=== PATIENT | male | born 1955 | race Caucasian/White ===

== ENCOUNTER 2024-06-01 09:43 | Inpatient (IN) | payer MEDICARE, MEDICAID, SELFPAY ==
[2024-06-01] VITALS (7 sets, daily range): BP systolic 144–175; BP diastolic 48–75; PULSE 74–82; RESP 16–18; TEMP 36–37.2; O2SAT 95–98; BMI 28.8
--- NOTE | ~2024-06-01 | XR_ITS ---
EXAMINATION: XR BILATERAL HIPS WITH AP PELVIS CLINICAL INFORMATION: Hip pain-OA COMPARISON: None available. Correlation made with CT abdomen and pelvis performed 06/01/2024. TECHNIQUE: AP and frog-leg lateral views of each hip and an AP view of the pelvis. FINDINGS: There is normal bony mineralization. There is no fracture, dislocation, or suspicious bone lesion. Normal alignment of both hips. Mild to moderate osteoarthrosis of both hip joints present with mild joint space narrowing, and mild to moderate marginal productive osteophytes. No evidence of AVN. The femoral heads maintain normal contour. The sacrum appears intact. Mild degenerative changes left greater than right SI joints. Mild to moderate spondylosis lower lumbar spine. Soft tissues demonstrate vascular calcifications. Calcification of the vas deferens also noted, suggesting underlying diabetes. XR/XR hip BI w PEL1V IMPRESSION: 1. No acute abnormality in either hip. 2. Mild to moderate osteoarthrosis bilateral hip joints symmetrically. Electronically signed by: Brandan Lomeli MD 06/07/2024 01:49 PM [facility]
--- NOTE | ~2024-06-01 | XR_ITS ---
EXAMINATION: XR CHEST CLINICAL INFORMATION: peripheral edema COMPARISON: Chest x-ray on 09/19/2007 TECHNIQUE: 2 views of the chest were obtained. FINDINGS: No significant abnormality is noted involving the heart, lungs, mediastinum, bony thorax or soft tissues. XR/XR chest 2V IMPRESSION: Unremarkable examination. Electronically signed by: Vonda Fuentes MD 06/01/2024 04:47 PM [facility]
--- NOTE | ~2024-06-01 | US_ITS ---
EXAMINATION: US TRIPLEX LOWER EXTREMITY, LEFT CLINICAL INFORMATION: Calf pain and swelling COMPARISON: Unfortunately duplex on 04/20/2021 TECHNIQUE: Color-flow triplex imaging with spectral analysis and compression Doppler were performed on the left lower extremity. FINDINGS: Respiratory variation, normal compression and augmented flow are noted throughout the left lower extremity. The visualized common femoral vein, superficial femoral vein, profunda femoral vein, popliteal vein and midcalf peroneal and posterior tibial venous segments show no evidence of deep venous thrombosis. There is no Grier's cyst. US/US venous duplex LE LT IMPRESSION: No evidence of deep venous thrombosis involving the left lower extremity. Electronically signed by: Vonda Fuentes MD 06/01/2024 03:34 PM EST RP
--- NOTE | ~2024-06-01 | CT_ITS ---
EXAMINATION: CT ABDOMEN AND PELVIS WITHOUT CONTRAST CLINICAL INFORMATION: back pain, elevated kidney function, r/o obstruct COMPARISON: None available. TECHNIQUE: Multidetector volumetric imaging was performed from the superior aspect of the liver through the pubic symphysis. Sagittal and coronal reformatted images were obtained on the technologist's workstation. This CT examination was performed using dose optimization techniques as appropriate, variously including the following: *Automated exposure control *Adjustment of mA and/or kV according to patient size (this includes techniques or standardized protocols for targeted exams where dose is matched to indication/reason for exam; i.e. extremities or head) *Use of iterative reconstruction technique DLP: 603 mGy-cm FINDINGS: LUNG BASES: Small pericardial effusion. Lung bases normally aerated. LIVER, GALLBLADDER, AND BILIARY TREE: The liver is normal in size, shape, and attenuation. No focal hepatic lesion or biliary ductal dilatation is present. The gallbladder is unremarkable with no evidence of radiopaque gallstones, gallbladder wall thickening, or obvious pericholecystic inflammatory changes. PANCREAS: Unremarkable. SPLEEN: Unremarkable. ADRENAL GLANDS: Unremarkable. KIDNEYS AND URETERS: The kidneys are normal in size, shape, and attenuation. No hydronephrosis, hydroureter, or calculi seen. No perinephric stranding. BLADDER: Unremarkable. GASTROINTESTINAL TRACT: The small and large bowel are unremarkable. The appendix is unremarkable. ABDOMINAL WALL: No significant hernia is appreciated. LYMPH NODES: Normal. VASCULAR: Vascular calcifications in the abdomen and pelvis. There is no aneurysm. PELVIC VISCERA: Unremarkable. OSSEOUS STRUCTURES: No acute osseous abnormality. Multilevel degenerative spondylosis spine. CT/CT abdomen pelvis wo IV con IMPRESSION: 1. No acute abnormality CT scan abdomen pelvis. 2. Small pericardial effusion. 3. Multilevel degenerative spondylosis of the spine. Fleischner guidelines were followed. Electronically signed by: Cameron Ingram MD 06/01/2024 08:03 PM [facility]
--- OUTSIDE RECORDS SUMMARY | 2024-06-01 11:52 | XMS_ITS | Continuity of Care Document ---
Author Organization [facility] Address [address] [place] [id number]- Care Team Providers Care Panman Name Role Phone Carrie SMALL PIECE CUTTER, Kelly Lopez Primary Care Physician [phone] [place] [facility] [place]/23/24 [facility] [address] [place] [id number]- Attending Physician: Larissa Schaeffer NP Allergies, Adverse Reactions, Alerts Substance Reaction Severity Status Bee Stings Active Immunizations Given and Recorded Vaccine Date Status Refusal Reason influenza virus vaccine, inactivated 1 03/04/24 Re corded influenza virus vaccine, inactivated 2 05/01/23 Gi aracely influenza virus vaccine, inactivated 05/17/22 Andrew rded influenza virus vaccine, inactivated 05/24/21 Andrew rded influenza virus vaccine, inactivated 03/13/20 Andrew rded influenza virus vaccine, inactivated 03/23/19 Give n influenza virus vaccine, inactivated 06/03/18 Give n influenza virus vaccine, inactivated 05/02/17 Andrew rded influenza virus vaccine, inactivated 04/12/17 Andrew rded influenza virus vaccine, inactivated 04/16/16 Give n influenza virus vaccine, inactivated 04/16/10 Give n SARS-CoV-2(COVID-19)mRNA-LNP vac([id number]) 12/31/23 Recorded SARS-CoV-2(COVID-19)mRNA-LNP vac([id number]) 05/08/23 Recorded tetanus/diphtheria/pertussis, acel(Tdap) 10/15/23 Recorded tetanus/diphtheria/pertussis, acel(Tdap) 07/28/11 Given pneumococcal 20-valent conjugate vaccine 3 05/01/23 Given zoster vaccine, inactivated 02/03/23 Recorded zoster vaccine, inactivated 08/09/19 Recorded [id number] 12y+ bivalent booster vax 05/17/22 Recorded SARS-CoV-2 (COVID-19) mRNA-1273 vaccine 10/10/21 R ecorded SARS-CoV-2 (COVID-19) mRNA BNT-162b2 vac 04/29/21 Recorded SARS-CoV-2 (COVID-19) mRNA BNT-162b2 vac 10/10/20 Recorded SARS-CoV-2 (COVID-19) mRNA BNT-162b2 vac 09/19/20 Recorded Influenza Virus Vaccine (oldterm) 03/05/20 Recorde d pneumococcal 23-valent vaccine 08/09/19 Recorded pneumococcal 23-valent vaccine 04/16/10 Given hepatitis B adult vaccine 4 01/07/11 Given hepatitis B adult vaccine 5 12/10/10 Given 1Result Comment: [facility] 2Result Comment: [id number] 3Result Comment: [id number] 4Admin Note: pt waited 10 mins post inj no adverse reaction noted.j a 5Admin Note: PT WAITED 10 MIN WITH NO ADVERSE REACTION. Medications albuterol 90 mcg/inh inhalation powder 1 puffs, Inhalation, Every 6 hours, PRN Wheezing/Shortness of Breath, # 1 each, 0 Refills, Maintenance, 02/15/24 13:38:00 EDT, Powder, [facility] #[id number], Partial fill upon patient request if the prescription is for a schedule II opioid drug., 1 puffs... Start Date: 02/15/24 Status: Ordered amLODIPine 10 mg oral tablet 10 mg, By Mouth, Daily, # 30 tablet, Refills 5, Tot. Refills 5, Maintenance, 03/11/24 11:59:00 EDT,Route to Pharmacy Electronically, [facility]/pharmacy #[id number], Partial fill upon patient request if the prescription is for a schedule II opioid drug., 168, cm,... Start Date: 03/11/24 Stop Date: 09/07/24 Status: Ordered aspirin 81 mg oral delayed release tablet 1 tablet, By Mouth, Daily, # 90 tablet, 1 Refills, Maintenance, 01/25/24 21:53:00 EDT, [facility]#[id number], 168, cm, 01/11/24 14:42:00 EDT, Height, 93, kg, 01/28/22 14:55:00 EDT, Dry Weight Start Date: 01/25/24 Status: Ordered Ativan 1 mg oral tablet 1 tablet = 1 mg, By Mouth, 4 times a day, 0 Refills, Maintenance, 12/27/15 13:11:38 EDT Start Date: 12/27/15 Status: Ordered carvedilol 6.25 mg oral tablet 6.25 mg, 1, tablet, By Mouth, 2 times a day, this replaces metoprolol xl, # 60 tablet, Refills 3, Tot. Refills 3, Maintenance, 04/19/24 14:32:00 EDT, Route to Pharmacy Electronically, [id number], Partial fill upon patient request if the prescr... Start Date: 04/19/24 Status: Ordered Colace sodium 100 mg oral capsule 100 mg, 1, capsule, By Mouth, 2 times a day, PRN, # 28 capsule, Refills 0, Tot. Refills 0, Maintenance, for constipation, 02/29/24 11:18:00 EDT, Route to Pharmacy Electronically, [id number], Partial fill upon patient request if the prescriptio... Start Date: 02/29/24 Stop Date: 03/14/24 Status: Ordered D3 50 mcg (2000 intl units) oral capsule 1 capsule, By Mouth, Daily, # 90 capsule, 0 Refills, Maintenance, 12/09/23 14:09:00 EDT, [id number], 168, cm, 10/27/23 15:34:00 EDT, Height, 93, kg, 01/28/22 14:55:00 EDT, Dry Weight Start Date: 12/09/23 Status: Ordered Daily Simone oral tablet 1 tablet, By Mouth, Daily, # 90 tablet, 1 Refills, Maintenance, 03/17/24 9:34:00 EDT, [id number], 90, 1 tablet By Mouth Daily, 168, cm, 03/17/24 9:26:00 EDT, Height Start Date: 03/17/24 Status: Ordered dapagliflozin 10 mg oral tablet 1 tablet = 10 mg, By Mouth, Daily, # 30 tablet, 0 Refills, Maintenance, 01/11/24 14:46:00 EDT, Tablet, [id number], Partial fill upon patient request if the prescription is for a schedule II opioid drug., 168, cm, 01/11/24 14:42:00 EDT, Height,... Start Date: 01/11/24 Status: Ordered Flonase Allergy Relief 50 mcg/inh nasal spray See Instructions, 1 sprays Daily in each nostril, # 16 Gm, 0 Refills, Maintenance, 02/15/24 13:39:00 EDT, [id number], Partial fill upon patient request if the prescription is for a schedule II opioid drug., 168, cm, 02/03/24 10:41:00 EDT, Height Start Date: 02/15/24 Status: Ordered folic acid 1 mg oral tablet 1, tablet, By Mouth, Daily, # 90 tablet, Refills 1, Tot. Refills 1, Maintenance, 02/17/24 7:23:00 EDT, Route to Pharmacy Electronically, [facility]/pharm[facility] #[id number], 168, cm, 02/15/24 13:43:00 EDT, Height Start Date: 02/17/24 Status: Ordered Freestyle Lite Lancets See Instructions, # 300 each, Maintenance, Check blood sugars three times a day DM Type 2 E11.9, 01/11/24 14:33:00 EDT, Supply, 168, cm, 01/11/24 14:20:00 EDT, Height, 93, kg, 01/28/22 14:55:00 EDT, Dry Weight Start Date: 01/11/24 Status: Ordered FREESTYLE LITE TEST STRIP FREESTYLE LITE TEST STRIP, See Instructions, # 200 Unknown, 2 Refills, Maintenance, CHECK BLOOD SUGARS THREE TIMES A DAY DM TYPE 2 E11.9, 03/21/24 19:47:00 EDT, 168, cm, 03/17/24 9:46:00 EDT, Height Start Date: 03/21/24 Status: Ordered Freestyle Lite Test Strips See Instructions, # 300 each, Refills 0, Tot. Refills 0, Maintenance, Check blood sugars three times a day DM Type 2 E11.9, 01/11/24 14:33:00 EDT, Compound, 168, cm, 01/11/24 14:20:00 EDT, Height, 93, kg, 01/28/22 14:55:00 EDT, Dry Weight Start Date: 01/11/24 Status: Ordered LaMICtal 100 mg oral tablet 100 mg, 1, tablet, By Mouth, 2 times a day, # 60 tablet, Refills 3, Tot. Refills 3, Maintenance, 01/21/19 11:25:36 EDT, Route to Pharmacy Electronically, [id number], [facility] #[id number] Start Date: 01/21/19 Stop Date: 05/21/19 Status: Ordered lisinopril 10 mg oral tablet 10 mg, 1, tablet, By Mouth, Daily, # 90 tablet, Refills 0, Tot. Refills 0, Maintenance, 04/19/24 9:02:00 EDT, Route to Pharmacy Electronically, [facility] #[id number], 168, cm, 04/15/24 10:23:00 EDT, Height Start Date: 04/19/24 Status: Ordered methylphenidate 5 mg oral tablet TAKE 1 TABLET BY MOUTH THREE TIMES A DAY Start Date: 01/11/24 Status: Ordered nitroglycerin 0.4 mg sublingual tablet See Instructions, DISSOLVE 1 UNDER TONGUE EVERY 5 MINUTES NEEDED FOR CHEST PAIN CALL MD AFTER TAKING 3 TABS IN TOTAL IN A DAY, # 100 tablet, 0 Refills, Maintenance, 03/17/24 14:24:00 EDT, [facility][id number], 168, cm, 03/17/24 9:46:00 EDT, Height Start Date: 03/17/24 Status: Ordered nitroglycerin 0.4 mg sublingual tablet See Instructions, DISSOLVE 1 UNDER TONGUE EVERY 5 MINUTES NEEDED FOR CHEST PAIN CALL MD AFTER TAKING 3 TABS IN TOTAL IN A DAY, # 100 tablet, 0 Refills, Maintenance, 10/03/22 15:53:00 EDT, [facility] #[id number], 175, cm, 09/17/22 13:59:00 EDT, Height,... Start Date: 10/03/22 Status: Ordered NovoLOG FlexPen 100 units/mL injectable solution See Instructions, INJECT 0-18 UNITS SUBCUTANEOUSLY WITH MEALS FOR SLIDING SCALES, # 15 Unknown, 2 Refills, 01/12/24 14:36:00 EDT, [id number], MAX DAILY DOSE 54 UNITS, 168, cm, 01/11/24 14:42:00 EDT, Height, 93, kg, 01/28/22 14:55:00 EDT, Dry W... Start Date: 01/12/24 Status: Ordered oxymetazoline 0.05% nasal spray 2 sprays, Nares, Both, 2 times a day, PRN nasal/sinus congestion, Do not use more than twice a day.Do not use for more than 3 days in a row, # 15 mL, 0 Refills, Maintenance, 02/02/24 15:28:00 EDT, [place], [id number], Partial fill upon patient... Start Date: 02/02/24 Status: Ordered Pen [place], 31 G x 5 mm BD Ultra Fine III See Instructions, # 300 each, Refills 1, Tot. Refills 1, Maintenance, Use TID DM Type 2 on insulin E11.9, 06/05/23 14:45:00 EST, DM E11.9, Compound, 168, cm, 05/01/23 14:45:00 EDT, Height, 93, kg, 01/28/22 14:55:00 EDT, Dry Weight Start Date: 06/05/23 Status: Ordered rosuvastatin 20 mg oral tablet 1 tablet, By Mouth, Daily, # 90 tablet, 1 Refills, Maintenance, 02/04/24 16:39:00 EDT, [id number], 168, cm, 02/03/24 10:41:00 EDT, Height Start Date: 02/04/24 Status: Ordered SEROquel 300 mg oral tablet 1 tablet = 300 mg, By Mouth, Daily at bedtime, # 90 tablet, 0 Refills, Maintenance, 05/01/23 15:01:00 EDT, Tablet, Partial fill upon patient request if the prescription is for a schedule II opioid drug. Start Date: 05/01/23 Status: Ordered Problem List Condition Confirmation Course Effective Dates Status Health Status Informant Bipolar disorder Confirmed Active Cervical spondylosis Confirmed Active Chronic back pain DJD Confirmed Active Glomerulonephritis,ulloa ngial proliferative/fibrillar y 1, 2 Confirmed Active CKD (chronic kidney disease) stage 4, GFR 15-29 ml/min Confirmed Active ASHD; [place] 2012/stent circumflex vessel cath;abdelrahman 2018 3 Confirmed Active Epididymal cyst rt Confirmed 04/18/19 Active Low serum vitamin D Confirmed Active Ex-cigarette smoker Confirmed Active Fibrillary glomerulonephritis 4 Confirmed Active GERD with esophagitis egd 2018 Confirmed Active Gingivitis Confirmed Active Glaucoma of both eyes Confirmed Active History of alcoholism Confirmed Active History of nephrotic syndrome Confirmed Active H/O hepatitis C- S/P sofosbuvir/weight based ribavirin in 2015 5 Confirmed Active History of acute myocardial infarction of inferior wall 2012/ 6 Confirmed Active Hyperlipidemia Confirmed Active Secondary hyperparathyroidism, renal Confirmed Active Hypertension Confirmed Active LVH (left ventricular hypertrophy) echo Confirmed 12/04/16 Active Low back pain Confirmed Active Lumbar spondylosis 7 Confirmed Active Multiple lung nodules Confirmed Active Obese class I Confirmed Active Persistent proteinuria- SEEING NEPHROLOGY Confirmed Active Tubular adenoma of colon colonoscopy 8, 9 Confirmed 12/12/15 Active Type 2 diabetes mellitus with diabetic nephropathy Confirmed Active 1Renal biopsy-proven lithium-induced chronic kidney disease and fibrillary glomerulonephritis from hepatitis C. 2Mesangial proliferative glomerulonephritis with IgG dominant electron-dense and fibrillary deposits (latter 9nm) ([place]-red negative) (see comment). - Focal segmental glomerulosclerosis (peripheral) with tubular microcystic dilatation. - Global sclerosis of 40-50% of total glomeruli. - Interstitial fibrosis and tubular atrophy, moderate. - Arterial sclerosis, mild, and arteriolar hyaline sclerosis, mild to moderate. 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 2012/[place] 4secondary to hep C 524 weeks therapy with sofosbuvir/weight based ribavirin 20905 inferolateral stent bare metal circumflex 7DR Molddoverno sx;Dr Schwartz 8hyperplatic polyp repeat screening in 2025 9repeat colonoscopy in 5 years Social History Social History Type Response Smoking Status Former smoker, quit more than 30 days ago; Interested in cessation: No; Other: quit; Tobacco use times per day: prio 1/2-1 ppd; Total pack years: 38; Started at age: 12; Stopped at age: 63; entered on: 07/20/20 Sex Patient Care team information Care Team Personnel Name: Darius HICKMAN, Jeffrey Lopez Position: [facility] Renal MD Member Role: Lifetime Consulting Physician Address: Address: [address] [place] [address] [address] [facility] [place] [place] [address]- Name: Kelly Butler NP Position: [facility] PCO Associate Professional Member Role: PCP Address: Address: [address] [place] [id number]- Name: Kristin Mckenzie Position: [facility] Outreach Member Role: Lifetime Consulting Physician Name: Fortunato Sin RN Position: [facility] RN Member Role: Primary Care Nurse Name: Nury Watts RN Position: S RN Member Role: Primary Care Nurse Name: Antonia Mena NP Position: [facility] Associate Professional Member Role: Lifetime Consulting Provider Address: Address: [address] [place] [address] [address] [facility] [place], [place] [id number] Name: Prieto Tobin RN Position: [facility] RN Member Role: Primary Care Nurse Name: Ashleigh Reynoso RN Position: [facility] RN Member Role: Primary Care Nurse Name: Jonn Hui DO Position: [facility] Renal MD Member Role: Lifetime Consulting Physician Address: Address: [address] [place] [address] [address] [facility] [place] [place] [address]- Name: Luis Angel Stephen RN Position: [facility] RN Member Role: Primary Care Nurse Name: Brandan Nogueira RN Position: [facility] RN Member Role: Primary Care Nurse Care Team Related Persons Name: CARLOS A BORDEN Address: [address] [place] [address] Name: LEVI BORDEN Address: home [address] [place] [address]
--- OUTSIDE RECORDS SUMMARY | 2024-06-01 11:52 | XMS_ITS | Continuity of Care Document ---
Author Organization [facility] Shawn Lazaro lt Address [address] [place] [address]- Care Team Providers Care Resource Specialist Name Role Phone Carrie Kelly RIVERA Primary Care Physician [phone] Encounter [facility] Date(s): 02/05/24 - 03/06/24 [facility] Adult [address] [place] [address]- Allergies, Adverse Reactions, Alerts Substance Reaction Severity Status Bee Stings Active Immunizations Given and Recorded Vaccine Date Status Refusal Reason SARS-CoV-2(COVID-19)mRNA-LNP vac([id number]) 12/31/23 Recorded SARS-CoV-2(COVID-19)mRNA-LNP vac([id number]) 05/08/23 Recorded tetanus/diphtheria/pertussis, acel(Tdap) 10/15/23 Recorded tetanus/diphtheria/pertussis, acel(Tdap) 07/28/11 Given pneumococcal 20-valent conjugate vaccine 1 05/01/23 Given influenza virus vaccine, inactivated 2 05/01/23 Gi [...] influenza virus vaccine, inactivated 04/16/10 Give n zoster vaccine, inactivated 02/03/23 Recorded zoster vaccine, inactivated 08/09/19 Recorded [id number] 12y+ bivalent booster vax 05/17/22 Recorded SARS-CoV-2 (COVID-19) mRNA-1273 vaccine 4/7/22 R ecorded SARS-CoV-2 (COVID-19) mRNA BNT-162b2 vac 04/29/21 Recorded SARS-CoV-2 (COVID-19) mRNA BNT-162b2 vac 10/10/20 Recorded SARS-CoV-2 (COVID-19) mRNA BNT-162b2 vac 09/19/20 Recorded Influenza Virus Vaccine (oldterm) 03/05/20 Recorde d pneumococcal 23-valent vaccine 08/09/19 Recorded pneumococcal 23-valent vaccine 04/16/10 Given hepatitis B adult vaccine 3 01/07/11 Given hepatitis B adult vaccine 4 12/10/10 Given 1Result Comment: [id number] 2Result Comment: [id number] 3Admin Note: pt waited 10 mins post inj no adverse reaction noted.thierno kong 4Admin Note: PT WAITED 10 MIN WITH NO ADVERSE REACTION. Medications acetaminophen 325 mg oral tablet 650 mg, 2, tablet, By Mouth, 3 times a day, PRN, Do not take more than 6 pills in a 24-hour period,# 24 tablet, Refills 0, Tot. Refills 0, Maintenance, as needed for fever, pain, 02/02/24 15:26:00 EDT, Route to Pharmacy Electronically, [facility] Start Date: 02/02/24 Status: Ordered Aerochamber See Instructions, # 1 each, Maintenance, always use with inhaler, 02/02/24 15:25:00 EDT, Supply, 168, cm, 02/02/24 14:20:00 EDT, Height Start Date: 02/02/24 Status: Ordered Albuterol (Eqv-Ventolin HFA) 90 mcg/inh inhalation aerosol 2 puffs, Inhalation, Every 4 hours, PRN cough, SOB, wheeze, # 18 Gm, 0 Refills, Maintenance, 02/02/24 15:25:00 EDT, [id number], with dose counter. any albuterol inhaler covered by insurance is fine., 2 puffs Inhalation Every 4 hours,PRN:cough,... Start Date: 02/02/24 Status: Ordered albuterol 90 mcg/inh inhalation powder 1 puffs, Inhalation, Every 6 hours, PRN Wheezing/Shortness of Breath, # 1 each, 0 Refills, Maintenance, 02/15/24 13:38:00 EDT, Powder, [id number], Partial fill upon patient request if the prescription is for a schedule II opioid drug., 1 puffs... Start Date: 02/15/24 Status: Ordered amLODIPine 10 mg oral tablet 10 mg, By Mouth, Daily, # 30 tablet, Refills 0, Tot. Refills 0, Maintenance, 02/29/24 9:42:00 EDT, Route to Pharmacy Electronically, [id number], Partial fill upon patient request if the prescription is for a schedule II opioid drug., 168, cm,... Start Date: 02/29/24 Stop Date: 03/30/24 Status: Ordered aspirin 81 mg oral delayed release tablet 1 tablet, By Mouth, Daily, # 90 tablet, 1 Refills, Maintenance, 01/25/24 21:53:00 EDT, [id number], 168, cm, 01/11/24 14:42:00 EDT, Height, 93, kg, 01/28/22 14:55:00 EDT, Dry Weight Start Date: 01/25/24 Status: Ordered Ativan 1 mg oral tablet 1 tablet = 1 mg, By Mouth, 4 times a day, 0 Refills, Maintenance, 12/27/15 13:11:38 EDT Start Date: 12/27/15 Status: Ordered Basic Metabolic Profile Basic Metabolic Profile, See Instructions, # 1 each, Refills 0, Tot. Refills 0, Maintenance, Basic Metabolic Profile, 02/29/24 10:23:00 EDT, Supply Start Date: 02/29/24 Status: Ordered benzonatate 100 mg oral capsule See Instructions, PRN Cough, 1-2 capsule(s) By Mouth up to 3 times a day prn cough (Max 600 mg in w32-gaaq period), # 30 capsule, 0 Refills, Maintenance, 02/05/24 12:47:00 EDT, Capsule, [id number], Partial fill upon patient request if the pr... Start Date: 02/05/24 Status: Ordered Blood Pressure Monitor See Instructions, # 1 each, Maintenance, For Home blood pressure measurement, 02/29/24 10:22:00 EDT, Supply, 168, cm, 02/15/24 13:43:00 EDT, Height Start Date: 02/29/24 Status: Ordered Colace sodium 100 mg oral capsule 100 mg, 1, capsule, By Mouth, 2 times a day, PRN, # 28 capsule, Refills 0, Tot. Refills 0, Maintenance, for constipation, 02/29/24 11:18:00 EDT, Route to Pharmacy Electronically, [facility]/pharmacy #[id number], Partial fill upon patient request if the prescriptio... Start Date: 02/29/24 Stop Date: 03/14/24 Status: Ordered D3 50 mcg (2000 intl units) oral capsule 1 capsule, By Mouth, Daily, # 90 capsule, 0 Refills, Maintenance, 12/09/23 14:09:00 EDT, [facility]/pharmacy #[id number], 168, cm, 10/27/23 15:34:00 EDT, Height, 93, kg, 01/28/22 14:55:00 EDT, Dry Weight Start Date: 12/09/23 Status: Ordered Daily Simone oral tablet 1 tablet, By Mouth, Daily, # 90 tablet, 1 Refills, Maintenance, 01/25/24 16:01:00 EDT, [facility]/pharmacy#[id number], 90, 1 tablet By Mouth Daily, 168, cm, 01/11/24 14:42:00 EDT, Height, 93, kg, 01/28/22 14:55:00 EDT, Dry Weight Start Date: 01/25/24 Status: Ordered dapagliflozin 10 mg oral tablet 1 tablet = 10 mg, By Mouth, Daily, # 30 tablet, 0 Refills, Maintenance, 01/11/24 14:46:00 EDT, Tablet, [facility]/pharmacy #[id number], Partial fill upon patient request if the prescription is for a schedule II opioid drug., 168, cm, 01/11/24 14:42:00 EDT, Height,... Start Date: 01/11/24 Status: Ordered Flonase Allergy Relief 50 mcg/inh nasal spray See Instructions, 1 sprays Daily in each nostril, # 16 Gm, 0 Refills, Maintenance, 02/15/24 13:39:00 EDT, [id number], Partial fill upon patient request if the prescription is for a schedule II opioid drug., 168, cm, 02/03/24 10:41:00 EDT, Height Start Date: 02/15/24 Status: Ordered folic acid 1 mg oral tablet 1, tablet, By Mouth, Daily, # 90 tablet, Refills 1, Tot. Refills 1, Maintenance, 02/17/24 7:23:00 EDT, Route to Pharmacy Electronically, [facility]/pharmacy #[id number], 168, cm, 02/15/24 13:43:00 EDT, Height Start Date: 02/17/24 Status: Ordered Freestyle Lite Lancets See Instructions, # 300 each, Maintenance, Check blood sugars three times a day DM Type 2 E11.9, 01/11/24 14:33:00 EDT, Supply, 168, cm, 01/11/24 14:20:00 EDT, Height, 93, kg, 01/28/22 14:55:00 EDT, Dry Weight Start Date: 01/11/24 Status: Ordered Freestyle Lite Test Strips See [...] 01/21/19 11:25:36 EDT, Route to Pharmacy Electronically, [id number], [facility]/pharmacy #[id number] Start Date: 01/21/19 Stop Date: 05/21/19 Status: Ordered lamotrigine 100 mg oral tablet TAKE 1 TABLET BY MOUTH TWICE A DAY Start Date: 02/26/24 Status: Ordered methylphenidate 5 mg oral tablet TAKE 1 TABLET BY MOUTH THREE TIMES A DAY Start Date: 01/11/24 Status: Ordered nitroglycerin 0.4 mg sublingual tablet See Instructions, DISSOLVE 1 UNDER TONGUE EVERY 5 MINUTES NEEDED FOR CHEST PAIN CALL MD AFTER TAKING 3 TABS IN TOTAL IN A DAY, # 100 tablet, 0 Refills, Maintenance, 10/03/22 15:53:00 EDT, [facility]/pharmacy #[id number], 175, cm, 09/17/22 13:59:00 EDT, Height,... Start Date: 10/03/22 Status: Ordered NovoLOG FlexPen 100 units/mL injectable solution See Instructions, INJECT 0-18 UNITS SUBCUTANEOUSLY WITH MEALS FOR SLIDING SCALES, # 15 Unknown, 2 Refills, 01/12/24 14:36:00 EDT, [facility]/pharmacy #[id number], MAX DAILY DOSE 54 UNITS, 168, [...] mL, 0 Refills, Maintenance, 02/02/24 15:28:00 EDT, [place], [facility]/pharmacy #[id number], Partial fill upon patient... Start Date: 02/02/24 Status: Ordered Pen [place], 31 G x 5 mm BD Ultra [...] Refills, Maintenance, 02/04/24 16:39:00 EDT, [id number], 168, cm, 02/03/24 10:41:00 EDT, Height Start Date: 02/04/24 Status: Ordered senna - oral tablet 2 tablet, By Mouth, Daily at bedtime, PRN for constipation, for 14 days, # 28 tablet, 0 Refills, Acute 03/14/24 11:19:00 EDT, 02/29/24 11:19:00 EDT, Tablet, [facility]/pharmacy #[id number], Partial fill upon patient request if the prescription is for a schedule II... Start Date: 02/29/24 Stop Date: 03/14/24 Status: Ordered SEROquel 300 mg oral tablet 1 tablet = 300 mg, By Mouth, Daily at bedtime, # 90 tablet, 0 Refills, Maintenance, 05/01/23 15:01:00 EDT, Tablet, Partial fill upon patient request if the prescription is for a schedule II opioid drug. Start Date: 05/01/23 Status: Ordered Problem List Condition Confirmation Course Effective Dates Status Health Status Informant Cervical spondylosis Confirmed Active Chronic back pain DJD Confirmed Active Glomerulonephritis,ulloa ngial proliferative/fibrillar y 1, 2 Confirmed Active CKD (chronic kidney disease) stage 4, GFR 15-29 ml/min Confirmed Active ASHD; [place] 2012/stent circumflex 2012/vessel cath;abdelrahman 2018 3 Confirmed Active Epididymal cyst rt Confirmed 04/18/19 Active Low serum vitamin D Confirmed Active Ex-cigarette smoker Confirmed Active Fibrillary glomerulonephritis 4 Confirmed Active GERD with esophagitis egd 2018 Confirmed Active Gingivitis Confirmed Active Glaucoma of both eyes Confirmed Active History of alcoholism Confirmed Active History of nephrotic syndrome Confirmed Active Hepatitis C S/P sofosbuvir/weight based ribavirin in 2015 5 [...] mild to moderate. 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 2012/[place] 4secondary to hep C 524 weeks therapy with sofosbuvir/weight based ribavirin 72830 inferolateral stent bare metal circumflex 7DR Molddoida sx;Dr Schwartz 8hyperplatic polyp repeat screening in [...] Care team information Care Team Personnel Name: Jeffrey Mccoy MD Position: [facility] Renal MD Member Role: Lifetime Consulting Physician Address: Address: [address] [place] [address] [address] [facility] [place], [place] [facility] Name: Kelly Butler NP Position: [facility] PCO Associate Professional Member Role: PCP Address: Address: [address] [place] [id number]- Name: Kristin Mckenzie Position: [facility] Outreach Member Role: Lifetime Consulting Physician Name: Fortunato Sin RN Position: [facility] RN Member Role: Primary Care Nurse Name: Nury Watts RN Position: [facility] RN Member Role: Primary Care Nurse Name: Antonia Mena NP Position: [facility] Associate Professional Member Role: Lifetime Consulting Provider Address: Address: [address] [place], [place] [address] [place], [place] - Name: Prieto Tobin RN Position: [facility] RN Member Role: Primary Care Nurse Name: Ashleigh Reynoos RN Position: [facility] RN Member Role: Primary Care Nurse Name: Jonn Hui DO Position: [facility] Renal MD Member Role: Lifetime Consulting Physician Address: Address: [address] [place] [address] [address] [facility] [place], [place] - Name: Luis Angel Stephen RN Position: [facility] RN Member Role: Primary Care Nurse Name: Brandan Nogueira RN Position: S RN Member Role: Primary Care Nurse Care Team Related Persons Name: CARLOS A BORDEN Address: home [address] [place] [address] UM Name: LEVI BORDEN Address: home [address] [place] [address]
--- OUTSIDE RECORDS SUMMARY | 2024-06-01 11:52 | XMS_ITS | Continuity of Care Document ---
Author Organization [facility] ter Address [address] [place] [id number]- Care Team Providers Care Community Service Worker Name Role Phone Ben Viera MD Primary Care Physician [place] [facility] Date(s): 08/16/19 - 09/23/[address] [address]- [facility] Attending Physician: Ben Viera MD Admitting Physician: Ben Viera MD Referring Physician: Ben Viera MD Allergies, Adverse Reactions, Alerts Substance Reaction Severity Status Bee Stings Active Immunizations Given and Recorded Vaccine Date Status Refusal Reason zoster vaccine, inactivated 08/09/19 Recorded pneumococcal 23-valent vaccine 08/09/19 Recorded pneumococcal 23-valent vaccine 04/16/10 Given influenza virus vaccine, inactivated 03/23/19 Give n influenza virus vaccine, inactivated 06/03/18 Give n influenza virus vaccine, inactivated 04/12/17 Andrew rded influenza virus vaccine, inactivated 04/16/16 Give n influenza virus vaccine, inactivated 04/16/10 Give n tetanus/diphtheria/pertussis, acel(Tdap) 07/28/11 Given hepatitis B adult vaccine 1 01/07/11 Given hepatitis B adult vaccine 2 12/10/10 Given 1Admin Note: pt waited 10 mins post inj no adverse reaction noted.j a 2Admin Note: PT WAITED 10 MIN WITH NO ADVERSE REACTION. Medications albuterol CFC free 90 mcg/inh inhalation aerosol 2, puffs, Inhalation, Every 6 hours, PRN, # 9 Gm, Refills 0, Tot. Refills 0, Maintenance, 06/17/19 10:48:07 EST, Aerosol, Route to Pharmacy Electronically, [id number], [facility]/pharmacy #[id number], 180, cm, 06/17/19 10:36:11 EST, Height Start Date: 06/17/19 Status: Ordered aspirin 81 mg oral tablet 1 tablet = 81 mg, By Mouth, Daily, # 30 tablet, 11 Refills, Maintenance, 09/03/19 14:22:00 EST, Tablet, [facility]/pharmacy #[id number], 180, cm, 08/01/19 10:43:00 EST, Height Start Date: 09/03/19 Stop Date: 08/28/20 Status: Ordered Ativan 1 mg oral tablet 1 tablet = 1 mg, By Mouth, 4 times a day, 0 Refills, Maintenance, 12/27/15 13:11:38 EDT Start Date: 12/27/15 Status: Ordered Cartia XT 180 mg/24 hours oral capsule, extended release 1 capsule = 180 mg, By Mouth, Daily, # 30 capsule, 5 Refills, Maintenance, 08/16/19 14:00:00 EST, CR Capsule, [facility]/pharmacy #[id number], 172, cm, 08/11/19 13:32:00 EST, Height, 97.8, kg, 08/11/19 5:24:00 EST, Dry Weight Start Date: 08/16/19 Status: Ordered cholecalciferol 2000 intl units oral capsule 1 capsule = 2,000 International_Units, By Mouth, Daily, # 30 capsule, 5 Refills, Maintenance, 04/25/19 13:50:51 EDT, Capsule Start Date: 04/25/19 Status: Ordered cloNIDine 0.2 mg oral tablet 0.2 mg, 1, tablet, By Mouth, 2 times a day, # 60 tablet, Refills 5, Tot. Refills 5, Maintenance, 05/09/19 9:31:26 EST, Route to Pharmacy Electronically, [id number], [facility]/pharmacy #[id number] Start Date: 05/09/19 Status: Ordered Colace sodium 100 mg oral capsule 100 mg, 1, capsule, By Mouth, 2 times a day, PRN, # 60 capsule, Refills 5, Tot. Refills 5, Maintenance, for constipation, 04/25/19 13:50:52 EDT, Route to Pharmacy Electronically, [id number], [facility]/pharmacy #[id number] Start Date: 04/25/19 Status: Ordered Crestor 20 mg oral tablet 1 tablet = 20 mg, By Mouth, Daily, discontinue crestor 10 mg daily, # 90 tablet, 3 Refills, Maintenance, 05/12/19 13:46:50 EST, Tablet Start Date: 05/12/19 Status: Ordered Daily Simone oral tablet 1 tablet, By Mouth, Daily, # 30 tablet, 5 Refills, Maintenance, 09/21/19 10:41:00 EDT, Tablet, [facility]/pharmacy #[id number], 1 tablet By Mouth Daily,x30 days, 172, cm, 09/05/19 16:17:00 EST, Height, 97.8, kg, 08/11/19 5:24:00 EST, Dry Weight Start Date: 09/21/19 Stop Date: 03/19/20 Status: Ordered folic acid 1 mg oral tablet 1 mg, 1, tablet, By Mouth, Daily, # 30 tablet, Refills 11, Tot. Refills 11, Maintenance, 02/14/19 16:39:14 EDT, Route to Pharmacy Electronically, [id number], [facility]/pharmacy #[id number] Start Date: 02/14/19 Status: Ordered Freestyle Lite Test Strips See Instructions, # 150 each, Refills 5, Tot. Refills 5, Maintenance, pt to test 3 times a day DX: DM E11.9, 08/31/19 15:52:00 EST, NEEDS TO TEST 3 TIMES A DAY FOR INSULIN; ok to fill early if needed, Compound, 172, cm, 08/23/19 10:02:00 EST, Height... Start Date: 08/31/19 Status: Ordered Marian-kermit 8.6 mg oral tablet 2 tablet = 17.2 mg, By Mouth, Daily at bedtime, # 60 tablet, 5 Refills, Maintenance, 08/10/18 13:56:23 EST Start Date: 08/10/18 Status: Ordered LaMICtal 100 mg oral tablet 100 mg, 1, tablet, By Mouth, 2 times a day, # 60 tablet, Refills 3, Tot. Refills 3, Maintenance, 01/21/19 11:25:36 EDT, Route to Pharmacy Electronically, [id number], [facility]/pharmacy #[id number] Start Date: 01/21/19 Stop Date: 05/21/19 Status: Ordered latanoprost 0.005% ophthalmic solution 1 drops, Eyes, Both, Daily at bedtime, # 3 mL, 0 Refills, Maintenance, 02/02/19 16:23:39 EDT, OphthSolution, 1 drops Eyes, Both Daily at bedtime Start Date: 02/02/19 Status: Ordered lisinopril 20 mg oral tablet 40 mg, 2, tablet, By Mouth, Daily, # 60 tablet, Refills 5, Tot. Refills 5, Maintenance, 06/21/19 14:10:15 EST, Route to Pharmacy Electronically, [facility]/pharmacy #[id number], 180, cm, 06/17/19 10:36:11 EST, Height Start Date: 06/21/19 Status: Ordered metoprolol 50 mg oral tablet 75 mg, 1.5, tablet, By Mouth, 2 times a day, stop metoprolol 50 mg twice daily, # 180 tablet, Refills 2, Tot. Refills 2, Maintenance, 08/26/19 9:30:00 EST, Route to Pharmacy Electronically, [facility]/pharmacy #[id number], 172, cm, 08/23/19 10:02:00 EST, Height, 9... Start Date: 08/26/19 Status: Ordered nicotine 2 mg oral transmucosal lozenge 1 lozenge = 2 mg, By Mouth, Every 2 hours, SUCK UP TO Q1 HOURS 10 DAILY, # 144 lozenge, 2 Refills, Maintenance, 07/15/19 12:34:00 EST, [facility]/pharmacy #[id number], 1 lozenge By Mouth Every 2 hours,Instr:SUCK UP TO Q1 HOURS ; 10 DAILY, 180, cm, 06/17/19 10:36... Start Date: 07/15/19 Status: Ordered nicotine 21 mg/24 hr transdermal film, extended release 1 patch, Topically, Daily, apply 1 patch to clean, dry, hairless portion of the upper body. change location daily, # 30 patch, 1 Refills, Maintenance, 01/21/19 11:54:30 EDT, Patch, 1 patch Topically Daily,Instr:apply 1 patch to clean, dry, hairless po... Start Date: 01/21/19 Status: Ordered nicotine 4 mg oral transmucosal lozenge See Instructions, suck, up to q1 hrs 10 daily, # 144 lozenge, 1 Refills, Maintenance, 06/15/19 11:49:35 EST, suck, up to q1 hrs 10 daily, 180, cm, 05/12/19 12:43:34 EST, Height Start Date: 06/15/19 Status: Ordered nitroglycerin 0.4 mg sublingual tablet 1 tablet = 0.4 mg, Sublingual, Every 5 minutes, PRN for chest pain, call MD after taking 3 tabs in total in a day, # 100 tablet, 0 Refills, Maintenance, 05/12/19 13:47:55 EST, Tablet Start Date: 05/12/19 Status: Ordered nitroglycerin 0.4 mg sublingual tablet See Instructions, # 25 tablet, Refills 2 Tot. Refills 2, DISSOLVE 1 UNDER TONGUE NEEDED FOR MILDPAIN IF CHEST PAIN CALL 911 IF PAIN NOT RELIEVED, [facility]/pharmacy #[id number] Start Date: 02/17/19 Status: Ordered NovoLOG FlexPen 100 units/mL subcutaneous solution See Instructions, # 15 Unknown, Refills 5 Tot. Refills 5, INJECT 0-18 UNITS SUBCUTANEOUSLY WITH MEALS FOR SLIDING SCALES, [facility]/pharmacy #[id number] Start Date: 01/04/19 Status: Ordered Pen Cosmos, 31 G x 5 mm BD Ultra Fine III See Instructions, # 150 each, Refills 11, Tot. Refills 11, Maintenance, Test blood sugar 5 times daily, 08/01/19 15:23:00 EST, DM E11.9, Compound, 180, cm, 08/01/19 10:43:00 EST, Height Start Date: 08/01/19 Status: Ordered predniSONE 20 mg oral tablet 1 tablet = 20 mg, By Mouth, 2 times a day, with food or milk, # 10 tablet, 0 Refills, Maintenance, 06/17/19 10:47:39 EST, 180, cm, 06/17/19 10:36:11 EST, Height Start Date: 06/17/19 Status: Ordered senna - oral tablet 2 tablet, By Mouth, Daily at bedtime, PRN for constipation, PRN, # 60 tablet, 1 Refills, Maintenance, 09/08/17 9:54:01, Tablet Start Date: 09/08/17 Status: Ordered SEROquel 100 mg oral tablet 100 mg, 1, tablet, By Mouth, 2 times a day, # 60 tablet, Refills 2, Tot. Refills 2, Maintenance, 09/21/19 10:41:00 EDT, Route to Pharmacy Electronically, [facility]/pharmacy #[id number], 172, cm, 09/05/19 16:17:00 EST, Height, 97.8, kg, 08/11/19 5:24:00 EST, Dry W... Start Date: 09/21/19 Status: Ordered SEROquel 400 mg oral tablet 1 tablet = 400 mg, By Mouth, Daily at bedtime, # 30 tablet, 3 Refills, Maintenance, 01/21/19 11:24:55 EDT, Tablet Start Date: 01/21/19 Status: Ordered Simbrinza 1%- 0.2% ophthalmic suspension 1 drops, Eyes, Both, 2 times a day, # 8 mL, 0 Refills, Maintenance, 02/02/19 16:23:55 EDT, Suspension, 1 drops Eyes, Both 2 times a day Start Date: 02/02/19 Status: Ordered ticagrelor 90 mg oral tablet 1 tablet = 90 mg, By Mouth, 2 times a day, # 60 tablet, 11 Refills, Maintenance, 05/17/19 15:13:56 EST, Tablet, this was previously sent to [facility] pharmacy Start Date: 05/17/19 Stop Date: 05/11/20 Status: Ordered Tresiba FlexTouch 200 units/mL subcutaneous solution = 90 units, Subcutaneous Infusion, Daily, at bedtime, # 15 mL, 5 Refills, Maintenance, 08/04/19 13:13:00 EST, [facility]/pharmacy #[id number], 180, cm, 08/01/19 10:43:00 EST, Height Start Date: 08/04/19 Status: Ordered Problem List Condition Effective Dates Status Health Status Inform ant Acute pancreatitis(Confirmed) 07/16/16 Active Adenomatous colon polyp(Confirmed) Active Bipolar disorder(Confirmed) Active Cervical spondylosis(Confirmed) Active Chronic back pain opiates pe r physiatry(Confirmed) Active Glomerulonephritis,mesangial proliferative/fibrillary(Confirmed) 1, 2 Active Chronic renal impairment, st age 3 (moderate)(Confirmed) Active Chronic renal insufficiency, stage III (moderate)(Confirmed) Active ASHD; [place] 2012/stent circumfl ex vessel cath;abdelrahman 2018(Confirmed) 3 Active Epididymal cyst rt(Confirmed) 04/18/19 Active Low serum vitamin D(Confirmed) Active Insulin long-term use(Confirmed) Active Ex-smoker quit 2018ldc t enrolled(Confirmed) Active Fibrillary glomerulonephritis(Confirmed) 4 Active GERD with esophagitis egd 2018(Confirmed) Active Gingivitis(Confirmed) Active History of alcoholism(Confirmed) Active History of nephrotic syndrome(Confirmed) Active Hepatitis C rx 2015(Confirmed) 5 Active Encounter for long-term (cur rent) drug use lamictal(Confirmed) Active History of acute myocardial infarction of inferior wall 2012/stent(Confirmed) 6 Active Hyperlipidemia(Confirmed) Active Hypertension(Confirmed) Active LVH (left ventricular hypert rophy) echo(Confirmed) 12/04/16 Active Low back pain(Confirmed) Active Lumbar spondylosis(Confirmed) 7 Active Obesity(Confirmed) Active Lower extremity pain(Confirmed) Active Tubular adenoma of colon(Confirmed) 8 12/12/15 Active 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 3MI 2012 circumflex stent [place] 4secondary to hep C 524 weeks therapy with sofosbuvir/weight based ribavirin 67536 inferolateral stent bare metal circumflex 7DR Marissa morgan;Dr Schwartz 8repeat colonoscopy in 5 years Social History Social History Type Response Smoking Status Former smoker, quit more than 30 days ago entered on: 12/22/18 Sex
--- OUTSIDE RECORDS SUMMARY | 2024-06-01 11:52 | XMS_ITS | Continuity of Care Document ---
Author Organization [facility] Shawn Lazaro lt Address [address] [place] [address]- Care Team Providers Care Gang Mower Operator Name Role Phone Carrie Kelly RIVERA Primary Care Physician [phone] Encounter [facility] Date(s): 03/17/24 - 04/16/24 [facility] Adult [address] [place] [address]- Allergies, Adverse Reactions, Alerts Substance Reaction Severity [...] virus vaccine, inactivated 04/16/10 Give n SARS-CoV-2(COVID-19)mRNA-LNP vac([id number]) 12/31/23 Recorded SARS-CoV-2(COVID-19)mRNA-LNP vac([id number]) 05/08/23 Recorded tetanus/diphtheria/pertussis, acel(Tdap) 10/15/23 Recorded tetanus/diphtheria/pertussis, acel(Tdap) 07/28/11 Given pneumococcal 20-valent conjugate vaccine 3 05/01/23 Given zoster vaccine, inactivated 02/03/23 Recorded zoster vaccine, inactivated 08/09/19 Recorded [id number] 12y+ bivalent booster vax 05/17/22 Recorded SARS-CoV-2 [...] 12/10/10 Given [facility]Result [facility] Comment: [id number] 3Result Comment: [id number] 4Admin Note: pt waited 10 mins post inj no adverse reaction noted.j a 5Admin Note: PT WAITED 10 MIN WITH NO ADVERSE REACTION. Medications albuterol 90 mcg/inh inhalation powder 1 puffs, Inhalation, Every 6 hours, PRN Wheezing/Shortness of Breath, # 1 each, 0 Refills, Maintenance, 02/15/24 13:38:00 EDT, Powder, [facility]/pharmacy #[id number], Partial fill upon patient request if the prescription is for a schedule II opioid drug., 1 puffs... Start Date: 02/15/24 Status: Ordered amLODIPine 10 mg oral tablet 10 mg, By Mouth, Daily, # 30 tablet, Refills 5, Tot. Refills 5, Maintenance, 03/11/24 11:59:00 EDT,Route to Pharmacy Electronically, [facility]/pharmacy #[id number], Partial fill upon patient request if the prescription is for a schedule II opioid drug., 168, cm,... Start Date: 03/11/24 Stop Date: 09/07/24 Status: Ordered aspirin 81 mg oral delayed release tablet 1 tablet, By Mouth, Daily, # 90 tablet, 1 Refills, Maintenance, 01/25/24 21:53:00 EDT, [facility]/pharmacy#[id number], 168, cm, 01/11/24 14:42:00 EDT, Height, 93, kg, 01/28/22 14:55:00 EDT, Dry Weight Start Date: 01/25/24 Status: Ordered Ativan 1 mg oral tablet 1 tablet = 1 mg, By Mouth, 4 times a day, 0 Refills, Maintenance, 12/27/15 13:11:38 EDT Start Date: 12/27/15 Status: Ordered Colace sodium 100 mg oral capsule 100 mg, 1, capsule, By Mouth, 2 times a day, PRN, # 28 capsule, Refills 0, Tot. Refills 0, Maintenance, for constipation, 02/29/24 11:18:00 EDT, Route to Pharmacy Electronically, [facility]/pharmacy #[id number], Partial fill upon patient request if the prescriptio... Start Date: 02/29/24 Stop Date: 03/14/24 Status: Ordered D3 50 mcg (2000 intl units) oral capsule 1 capsule, By Mouth, Daily, # 90 capsule, 0 Refills, Maintenance, 12/09/23 14:09:00 EDT, [facility]/pharmacy #[id number], 168, cm, 10/27/23 15:34:00 EDT, Height, [...] 0 Refills, Maintenance, 01/11/24 14:46:00 EDT, Tablet, [facility]/pharmacy #[id number], Partial fill upon patient request if [...] 02/17/24 7:23:00 EDT, Route to Pharmacy Electronically, [facility]/pharmacy #[id number], 168, cm, 02/15/24 13:43:00 EDT, Height [...] 01/21/19 11:25:36 EDT, Route to Pharmacy Electronically, [id number], [facility]/pharmacy #[id number] Start Date: 01/21/19 Stop Date: 05/21/19 Status: Ordered lisinopril 20 mg oral tablet 20 mg, 1, tablet, By Mouth, Daily, increased strength, # 90 tablet, Refills 0, Tot. Refills 0, Maintenance, 04/15/24 10:24:00 EDT, Route to Pharmacy Electronically, [facility]/pharmacy #[id number], increased strength, 168, cm, 04/15/24 10:23:00 EDT, Height Start Date: 04/15/24 Status: Ordered methylphenidate 5 mg oral tablet TAKE 1 TABLET BY MOUTH THREE TIMES A DAY Start Date: 01/11/24 Status: Ordered nitroglycerin 0.4 mg sublingual tablet See Instructions, DISSOLVE 1 UNDER TONGUE EVERY 5 MINUTES NEEDED FOR CHEST PAIN CALL MD AFTER TAKING 3 TABS IN TOTAL IN A DAY, # 100 tablet, 0 Refills, Maintenance, 03/17/24 14:24:00 EDT, [facility]/pharmacy #[id number], 168, cm, 03/17/24 9:46:00 EDT, Height Start Date: 03/17/24 Status: Ordered nitroglycerin 0.4 mg sublingual tablet See Instructions, DISSOLVE 1 UNDER TONGUE EVERY 5 MINUTES NEEDED FOR CHEST PAIN CALL MD AFTER TAKING 3 TABS IN TOTAL IN A DAY, # 100 tablet, 0 Refills, Maintenance, 10/03/22 15:53:00 EDT, [facility]/pharmacy #[id number], 175, cm, 09/17/22 13:59:00 EDT, Height,... [...] mL, 0 Refills, Maintenance, 02/02/24 15:28:00 EDT, [place], [id number], Partial fill upon patient... Start Date: 02/02/24 Status: Ordered Pen [place], 31 G x 5 mm BD Ultra [...] Refills, Maintenance, 02/04/24 16:39:00 EDT, [id number], 168, cm, 02/03/24 10:41:00 EDT, Height Start [...] 4, GFR 15-29 ml/min Confirmed Active ASHD; NE 2012/stent circumflex vessel cath;abdelrahman 2018 3 Confirmed [...] mild to moderate. 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 2012/ 4secondary to hep C 524 weeks therapy with sofosbuvir/weight based ribavirin 04837 inferolateral stent bare metal circumflex 7DR Molddoverno [...] Team Personnel Name: Jeffrey Mccoy MD Position: [facility] Renal MD Member Role: Lifetime Consulting Physician Address: Address: [address] [place] [address] [address] [facility] [place], [place] [address] Name: Kelly Butler NP Position: [facility] PCO Associate Professional Member Role: PCP Address: Address: [address] [place] [id number] Name: Kristin Mckenzie Position: [facility] Outreach Member Role: Lifetime Consulting Physician Name: Fortunato Sin RN Position: [facility] RN Member Role: Primary Care Nurse Name: Nury Watts RN Position: [facility] RN Member Role: Primary Care Nurse Name: Antonia Mena NP Position: [facility] Associate Professional Member Role: Lifetime Consulting Provider Address: Address: [address] [place], [place] [address] [place], [place] [address] Name: Prieto Tobin RN Position: [facility] RN Member Role: Primary Care Nurse Name: Ashleigh Reynoso RN Position: S RN Member Role: Primary Care Nurse Name: Jonn Hui DO Position: [facility] Renal MD Member Role: Lifetime Consulting Physician Address: Address: [address] [place] [address] [address] [facility] [place] [address]- Name: Luis Angel Stephen RN Position: S RN Member Role: Primary Care Nurse Name: Brandan Nogueira RN Position: [facility] RN Member Role: Primary Care Nurse Care Team Related Persons Name: CARLOS A BORDEN Address: home [address] [place] [address] Name: LEVI BORDEN Address: home [address] [place] [address]
--- OUTSIDE RECORDS SUMMARY | 2024-06-01 11:53 | XMS_ITS | Continuity of Care Document ---
Author Organization [facility] Address [address] [place] [address]- Care Team Providers Care Blurb Writer Name Role Phone Carrie Kelly RIVERA Primary Care Physician [phone] Encounter [facility] Date(s): 12/08/22 - 01/07/23 [facility] [address] [place] [id number]- [place] Allergies, Adverse Reactions, Alerts Substance Reaction Severity Status Bee Stings Active Immunizations Given and Recorded Vaccine Date Status Refusal Reason influenza virus vaccine, inactivated 05/17/22 Andrew rded influenza virus vaccine, inactivated 05/24/21 Andrew rded influenza virus vaccine, inactivated 03/13/20 Andrew rded influenza virus vaccine, inactivated 03/23/19 Give n influenza virus vaccine, inactivated 06/03/18 Give n influenza virus vaccine, inactivated 05/02/17 Andrew rded influenza virus vaccine, inactivated 04/12/17 Andrew rded influenza virus vaccine, inactivated 04/16/16 Give n influenza virus vaccine, inactivated 04/16/10 Give n [id number] 12y+ bivalent booster vax 05/17/22 Recorded SARS-CoV-2 (COVID-19) mRNA-1273 vaccine 10/10/21 R ecorded SARS-CoV-2 (COVID-19) mRNA BNT-162b2 vac 04/29/21 Recorded SARS-CoV-2 (COVID-19) mRNA BNT-162b2 vac 10/10/20 Recorded SARS-CoV-2 (COVID-19) mRNA BNT-162b2 vac 09/19/20 Recorded Influenza Virus Vaccine (oldterm) 03/05/20 Recorde d zoster vaccine, inactivated 08/09/19 Recorded pneumococcal 23-valent vaccine 08/09/19 Recorded pneumococcal 23-valent vaccine 04/16/10 Given tetanus/diphtheria/pertussis, acel(Tdap) 07/28/11 Given hepatitis B adult vaccine 1 01/07/11 Given hepatitis B adult vaccine 2 12/10/10 Given 1Admin Note: pt waited 10 mins post inj no adverse reaction noted.j a 2Admin Note: PT WAITED 10 MIN WITH NO ADVERSE REACTION. MH Medications aspirin 81 mg oral delayed release tablet 1 tablet, By Mouth, Daily, # 90 tablet, 1 Refills, Maintenance, 12/30/22 14:35:00 EDT, [facility]/pharmacy#[id number], 175, cm, 10/09/22 16:51:00 EDT, Height, 93, kg, 01/28/22 14:55:00 EDT, Dry Weight Start Date: 12/30/22 Status: Ordered Ativan 1 mg oral tablet 1 tablet = 1 mg, By Mouth, 4 times a day, 0 Refills, Maintenance, 12/27/15 13:11:38 EDT Start Date: 12/27/15 Status: Ordered Blood Pressure Monitor See Instructions, # 1 each, Maintenance, dx: hypertension I10, 07/20/20 10:41:00 EST, Supply Start Date: 07/20/20 Status: Ordered Daily Simone oral tablet 1 tablet, By Mouth, Daily, # 90 tablet, 1 Refills, Maintenance, 01/07/23 21:36:00 EDT, [id number], 90, TAKE 1 TABLET BY MOUTH EVERY DAY, 175, cm, 10/09/22 16:51:00 EDT, Height, 93, kg, 01/28/22 14:55:00 EDT, Dry Weight Start Date: 01/07/23 Status: Ordered dapagliflozin 10 mg oral tablet 1 tablet = 10 mg, By Mouth, Daily, # 90 tablet, 0 Refills, Maintenance, 08/18/22 0:21:00 EST, Tablet, Partial fill upon patient request if the prescription is for a schedule II opioid drug. Start Date: 08/18/22 Status: Ordered DilTIAZem (Eqv-Cardizem CD) 180 mg/24 hours oral capsule, extended release 1 capsule, By Mouth, Daily, # 90 capsule, 0 Refills, Maintenance, 12/30/22 14:30:00 EDT, [facility]/pharmacy #[id number], 175, cm, 10/09/22 16:51:00 EDT, Height, 93, kg, 01/28/22 14:55:00 EDT, Dry Weight Start Date: 12/30/22 Status: Ordered docusate sodium 100 mg oral capsule 1 capsule, By Mouth, 2 times a day, PRN NEEDED FOR CONSTIPATION, # 60 capsule, 5 Refills, Maintenance, 07/18/22 11:59:00 EST, [facility]/pharmacy #[id number], 175, cm, 07/17/22 10:33:00 EST, Height, 93, kg, 01/28/22 14:55:00 EDT, Dry Weight Start Date: 07/18/22 Status: Ordered Flonase 50 mcg/inh nasal spray 1 sprays, Nares, Both, 2 times a day, # 16 Gm, 0 Refills, Maintenance, 09/05/22 9:15:00 EST, [place],[facility]/pharmacy #[id number], Partial fill upon patient request if the prescription is for a schedule II opioid drug., 1 sprays Nares, Both 2 times a day, 175, c... Start Date: 09/05/22 Status: Ordered folic acid 1 mg oral tablet 1, tablet, By Mouth, Daily, # 30 tablet, Refills 5, Tot. Refills 5, Maintenance, 08/15/22 10:27:00 EST, Route to Pharmacy Electronically, [facility]/pharmacy #[id number], 175, cm, 07/17/22 10:33:00 EST, Height, 93, kg, 01/28/22 14:55:00 EDT, Dry Weight Start Date: 08/15/22 Status: Ordered Freestyle Lite Lancets See Instructions, # 100 each, Refills 6, Tot. Refills 6, Maintenance, to test blood sugar 3 times daily E11.9 YVETTE-lifetime, 11/14/22 13:29:00 EDT, Supply, 175, cm, 10/09/22 16:51:00 EDT, Height, 93, kg, 01/28/22 14:55:00 EDT, Dry Weight Start Date: 11/14/22 Status: Ordered Freestyle Lite Test Strips See Instructions, # 150 each, Refills 5, Tot. Refills 5, Maintenance, pt to test 3 times a day DX: DM E11.9, 08/29/21 7:54:00 EST, NEEDS TO TEST 3 TIMES A DAY FOR INSULIN; ok to fill early if needed,Compound, 175.2, cm, 07/31/21 11:20:00 EST, Heigh... Start Date: 08/29/21 Status: Ordered LaMICtal 100 mg oral tablet 100 mg, 1, tablet, By Mouth, 2 times a day, # 60 tablet, Refills 3, Tot. Refills 3, Maintenance, 01/21/19 11:25:36 EDT, Route to Pharmacy Electronically, [id number], [facility]/pharmacy #[id number] Start Date: 01/21/19 Stop Date: 05/21/19 Status: Ordered lisinopril 40 mg oral tablet 1 tablet, By Mouth, Daily, # 90 tablet, 0 Refills, Maintenance, 12/29/22 11:59:00 EDT, [id number], 175, cm, 10/09/22 16:51:00 EDT, Height, 93, kg, 01/28/22 14:55:00 EDT, Dry Weight Start Date: 12/29/22 Status: Ordered Metoprolol Tartrate 50 mg oral tablet 1.5 tablet, By Mouth, 2 times a day, # 270 tablet, 1 Refills, Maintenance, 09/01/22 13:28:00 EST, [id number], 175, cm, 07/17/22 10:33:00 EST, Height, 93, kg, 01/28/22 14:55:00 EDT, Dry Weight Start Date: 09/01/22 Status: Ordered Nicotine 7 mg/24 hour patch 1 patch, Topically, Daily, # 30 patch, 0 Refills, Maintenance, 11/17/22 11:45:00 EDT, Patch, [facility]/pharmacy #[id number], Partial fill upon patient request if the prescription is for a schedule II opioid drug., 1 patch Topically Daily, 175, cm, 10/09/22 16:51:... Start Date: 11/17/22 Status: Ordered nitroglycerin 0.4 mg sublingual tablet See Instructions, DISSOLVE 1 UNDER TONGUE EVERY 5 MINUTES NEEDED FOR CHEST PAIN CALL MD AFTER TAKING 3 TABS IN TOTAL IN A DAY, # 100 tablet, 0 Refills, Maintenance, 10/03/22 15:53:00 EDT, [id number], 175, cm, 09/17/22 13:59:00 EDT, Height,... Start Date: 3/31/23 Status: Ordered NovoLOG FlexPen 100 units/mL injectable solution See Instructions, INJECT 0-18 UNITS SUBCUTANEOUSLY WITH MEALS FOR SLIDING SCALES, # 15 Unknown, 2 Refills, 11/07/22 0:09:00 EDT, [facility]/pharmacy #[id number], 175, cm, 10/09/22 16:51:00 EDT, Height, 93, kg, 01/28/22 14:55:00 EDT, Dry Weight Start Date: 11/07/22 Status: Ordered Pen [place], 31 G x 5 mm BD Ultra Fine III See Instructions, # 150 each, Refills 11, Tot. Refills 11, Maintenance, Test blood sugar 5 times daily, 08/20/21 16:50:00 EST, DM E11.9, Compound, 175.2, cm, 07/31/21 11:20:00 EST, Height, 88.3, kg, 03/12/21 9:16:00 EDT, Dry Weight Start Date: 08/20/21 Status: Ordered pregabalin 75 mg oral capsule 1 capsule = 75 mg, By Mouth, 2 times a day, # 60 capsule, 2 Refills, Maintenance, 08/07/22 12:55:00EST, Capsule, [facility]/pharmacy #[id number], 175, cm, 07/17/22 10:33:00 EST, Height, 93, kg, 01/28/22 14:55:00EDT, Dry Weight Start Date: 08/07/22 Status: Ordered rosuvastatin 20 mg oral tablet 1 tablet, By Mouth, Daily, # 90 tablet, 0 Refills, Maintenance, 12/30/22 14:34:00 EDT, [facility]/pharmacy#[id number], 175, cm, 10/09/22 16:51:00 EDT, Height, 93, kg, 01/28/22 14:55:00 EDT, Dry Weight Start Date: 12/30/22 Status: Ordered Senna 8.6 mg oral tablet 1 or 2 tablets, By Mouth, Daily at bedtime, PRN, # 60 tablet, Refills 5, Tot. Refills 5, Maintenance, Constipation, 11/03/22 15:04:00 EDT, Route to Pharmacy Electronically, [facility]/pharmacy #[id number] Tablet,Partial fill upon patient request if the prescripti... Start Date: 11/03/22 Status: Ordered SEROquel 100 mg oral tablet 100 mg, 1, tablet, By Mouth, 2 times a day, PRN, # 1 tablet, Refills 2, Tot. Refills 2, Maintenance, Anxiety, 09/21/19 10:41:00 EDT, Route to Pharmacy Electronically, [facility]/pharmacy #[id number], 172, cm, 09/05/19 16:17:00 EST, Height, 97.8, kg, 08/11/19 5:24:... Start Date: 09/21/19 Status: Ordered SEROquel 400 mg oral tablet 1 tablet = 400 mg, By Mouth, Daily at bedtime, # 30 tablet, 3 Refills, Maintenance, 01/21/19 11:24:55 EDT, Tablet Start Date: 01/21/19 Status: Ordered Tresiba FlexTouch 200 units/mL subcutaneous solution See Instructions, INJECT 24 UNITS SUBCUTANEOUSLY DAILY AT BEDTIME, INCREASE 2 UNITS EVERY 3 DAYS UNTIL FBS < 120 PER PCP MAX DOSE 60 UNITS/DAY, # 9 Unknown, 1 Refills, 01/21/22 15:39:00 EDT, [facility]/pharmacy #[id number], 175.2, cm, 12/18/21 14:10:00 EDT, Height... Start Date: 01/21/22 Status: Ordered Trulicity Pen 0.75 mg/0.5 mL subcutaneous solution 0.5 mL = 0.75 mg, Subcutaneous Injection, Every week, # 2.5 mL, 2 Refills, Maintenance, 04/08/22 9:12:00 EDT, Solution, [facility]/pharmacy #[id number], Partial fill upon patient request if the prescription is for a schedule II opioid drug., 175, cm, 04/08/22 8:34... Start Date: 04/08/22 Status: Ordered Ventolin HFA 108 mcg/inh inhalation aerosol with adapter 2 puffs, Inhalation, Every 4 hours, PRN for wheezing, for 180 days, # 1 each, 0 Refills, Acute 03/05/23 16:25:00 EDT, 09/06/22 16:25:00 EST, Aerosol, [facility]/pharmacy #[id number], Partial fill upon patient request if the prescription is for a schedule II opioid... Start Date: 09/06/22 Stop Date: 03/05/23 Status: Ordered Vitamin D3 2000 intl units oral capsule 1 capsule, By Mouth, Daily, # 90 capsule, 1 Refills, Maintenance, 11/14/22 12:24:00 EDT, [id number], 175, cm, 10/09/22 16:51:00 EDT, Height, 93, kg, 01/28/22 14:55:00 EDT, Dry Weight Start Date: 11/14/22 Status: Ordered Problem List Condition Confirmation Course [...] Active Low serum vitamin D Confirmed Active Insulin long-term use Confirmed Active Ex-cigarette smoker quit May 2019 LDCT Confirmed Active Fibrillary glomerulonephritis 4 Confirmed Active GERD with esophagitis egd 2018 Confirmed Active Gingivitis Confirmed Active Glaucoma of both eyes Confirmed Active History of alcoholism Confirmed Active History of nephrotic syndrome Confirmed Active Hepatitis C rx 2015 5 Confirmed Active Encounter for long-term (current) drug use lamictal Confirmed Active History of acute myocardial infarction of inferior wall 2012/stent 6 Confirmed Active Hyperlipidemia Confirmed Active Hypertension Confirmed Active LVH (left ventricular hypertrophy) echo Confirmed 12/04/16 Active Low back pain Confirmed Active Lumbar spondylosis 7 Confirmed Active Multiple lung nodules LDCT Confirmed Active Lower extremity pain Confirmed Active Persistent proteinuria- SEEING NEPHROLOGY Confirmed [...] mild to moderate. 3MI 2012 circumflex stent 2012/NE 4secondary to hep C 524 weeks therapy with sofosbuvir/weight based ribavirin 38403 inferolateral stent bare metal circumflex 7DR Moldcathy sx;Dr Schwartz 8hyperplatic polyp repeat screening in [...] Team Personnel Name: Jeffrey Mccoy MD Position: [facility] Renal MD Member Role: Lifetime Consulting Physician Address: Address: [address] [place] [address] [facility] [place] [address]- Name: Kelly Butler NP Position: [facility] PCO Associate Professional Member Role: PCP Address: Address: [address] [place] [address]- Name: Kristin Mckenzie Position: [facility] Outreach Member Role: Lifetime Consulting Physician Name: Prieto Tobin RN Position: [facility] RN Member Role: Primary Care Nurse Name: Jonn Hui DO Position: [facility] Renal MD Member Role: Lifetime Consulting Physician Address: Address: [address] [place], [place] [address] [place] [address]- Name: Luis Angel Stephen RN Position: [facility] RN Member Role: Primary Care Nurse Care Team Related Persons Name: CARLOS A BORDEN Address: [address] [place] [address] Name: LEVI BORDEN Address: [address] [place] [address]
--- OUTSIDE RECORDS SUMMARY | 2024-06-01 11:53 | XMS_ITS | Continuity of Care Document ---
Author Organization [facility] Shawn Lazaro lt Address [address] [place] [address]- Care Team Providers Care Dietary Tech Name Role Phone Carrie Kelly RIVERA Primary Care Physician Encounter [facility] Date(s): 04/25/22 - 05/25/22 [facility] [address] [place] [address]- Allergies, Adverse Reactions, Alerts Substance Reaction Severity Status Bee Stings Active Immunizations Given and Recorded Vaccine Date Status Refusal Reason SARS-CoV-2 (COVID-19) mRNA-1273 vaccine 10/10/21 R ecorded influenza virus vaccine, inactivated 05/24/21 Andrew rded influenza virus vaccine, inactivated 03/13/20 Andrwe rded influenza virus vaccine, inactivated 03/23/19 Give n influenza virus vaccine, inactivated 06/03/18 Give n influenza virus vaccine, inactivated 05/02/17 Andrew rded influenza virus vaccine, inactivated 04/12/17 Andrew rded influenza virus vaccine, inactivated 04/16/16 Give n influenza virus vaccine, inactivated 04/16/10 Give n SARS-CoV-2 (COVID-19) mRNA BNT-162b2 vac 04/29/21 Recorded [...] 10 MIN WITH NO ADVERSE REACTION. Medications aspirin 81 mg oral delayed release tablet 1 tablet, By Mouth, Daily, # 90 tablet, 3 Refills, Maintenance, 09/30/21 12:28:00 EDT, [id number], 175.2, cm, 09/20/21 8:36:00 EDT, Height, 88.3, kg, 03/12/21 9:16:00 EDT, Dry Weight Start Date: 09/30/21 Status: Ordered Ativan 1 mg oral tablet [...] Daily, # 30 tablet, 5 Refills, Maintenance, 02/11/22 11:48:00 EDT, Tablet, [id number], 1 tablet By Mouth Daily,x30 days, 175, cm, 01/29/22 15:12:00 EDT, Height, 93, kg, 01/28/22 14:55:00 EDT, Dry Weight Start Date: 02/11/22 Stop Date: 08/10/22 Status: Ordered DilTIAZem (Eqv-Cardizem CD) 180 mg/24 hours oral capsule, extended release 1 capsule, By Mouth, Daily, # 90 capsule, 0 Refills, Maintenance, 05/21/22 13:33:00 EST, [id number], 175, cm, 05/09/22 11:08:00 EDT, Height, 93, kg, 01/28/22 14:55:00 EDT, Dry Weight Start Date: 05/21/22 Status: Ordered docusate sodium 100 mg oral capsule 1 capsule, By Mouth, 2 times a day, PRN NEEDED FOR CONSTIPATION, # 60 capsule, 5 Refills, Maintenance, 06/05/21 15:57:00 EST, [id number], 175.2, cm, 05/27/21 11:26:00 EST, Height, 88.3, kg, 03/12/21 9:16:00 EDT, Dry Weight Start Date: 06/05/21 Status: Ordered folic acid 1 mg oral tablet 1, tablet, By Mouth, Daily, # 30 tablet, Refills 5, Tot. Refills 5, Maintenance, 04/01/22 21:30:00 EDT, Route to Pharmacy Electronically, [facility]/pharmacy #[id number], 175, cm, 02/14/22 10:10:00 EDT, Height, 93, kg, 01/28/22 14:55:00 EDT, Dry Weight Start Date: 04/01/22 Status: Ordered Freestyle Lite Test Strips See [...] 01/21/19 11:25:36 EDT, Route to Pharmacy Electronically, [id number], [facility]/pharmacy #[id number] Start Date: 01/21/19 Stop Date: 05/21/19 Status: Ordered lisinopril 40 mg oral tablet 1 tablet, By Mouth, Daily, # 90 tablet, 1 Refills, Maintenance, 05/07/22 14:29:00 EDT, [id number], 175, cm, 04/08/22 8:34:00 EDT, Height, 93, kg, 01/28/22 14:55:00 EDT, Dry Weight Start Date: 05/07/22 Status: Ordered Metoprolol Tartrate 50 mg oral tablet 1.5 tablet, By Mouth, 2 times a day, # 270 tablet, 0 Refills, 05/21/22 10:19:00 EST, [facility]/pharmacy #[id number], 175, cm, 05/09/22 11:08:00 EDT, Height, 93, kg, 01/28/22 14:55:00 EDT, Dry Weight Start Date: 05/21/22 Status: Ordered nicotine 14 mg/24 hr transdermal film, extended release 1 patch, Topically, Daily, for 30 days, # 30 patch, 1 Refills, Acute 06/27/22 15:44:00 EST, 04/28/22 15:44:00 EDT, Patch, [facility]/pharmacy #[id number], 1 patch Topically Daily,x30 days, 175, cm, 04/08/22 8:34:00 EDT, Height, 93, kg, 01/28/22 14:55:00 EDT, Dry W... Start Date: 04/28/22 Stop Date: 06/27/22 Status: Ordered nitroglycerin 0.4 mg sublingual tablet See Instructions, DISSOLVE 1 UNDER TONGUE EVERY 5 MINUTES NEEDED FOR CHEST PAIN CALL MD AFTER TAKING 3 TABS IN TOTAL IN A DAY, # 100 tablet, 0 Refills, Maintenance, 12/31/21 17:21:00 EDT, [facility]/pharmacy #[id number], 175.2, cm, 12/18/21 14:10:00 EDT, Height... Start Date: 12/31/21 Status: Ordered NovoLOG FlexPen 100 units/mL injectable solution See Instructions, INJECT 0-18 UNITS SUBCUTANEOUSLY WITH MEALS FOR SLIDING SCALES, # 15 Unknown, 2 Refills, [id number], 175.2, cm, 05/27/21 11:26:00 EST, Height, 88.3, kg, 03/12/21 9:16:00 EDT, Dry Weight Start Date: 06/04/21 Status: Ordered Pen [place], 31 G x 5 mm BD Ultra [...] 2 times a day, # 60 capsule, 5 Refills, Maintenance, 04/08/22 9:12:00 EDT, Capsule, [facility]/pharmacy #[id number], 175, cm, 04/08/22 8:34:00 EDT, Height, 93, kg, 01/28/22 14:55:00 EDT, Dry Weight Start Date: 04/08/22 Status: Ordered rosuvastatin 20 mg oral tablet 1 tablet, By Mouth, Daily, # 90 tablet, 1 Refills, Maintenance, 05/21/22 13:33:00 EST, [id number], 175, cm, 05/09/22 11:08:00 EDT, Height, 93, kg, 01/28/22 14:55:00 EDT, Dry Weight Start Date: 05/21/22 Status: Ordered SEROquel 100 mg oral tablet 100 mg, 1, tablet, By Mouth, 2 times a day, PRN, # 1 tablet, Refills 2, Tot. Refills 2, Maintenance, Anxiety, 09/21/19 10:41:00 EDT, Route to Pharmacy Electronically, [facility]/pharmacy #[id number], 172, cm, 09/05/19 16:17:00 EST, Height, 97.8, kg, 08/11/19 5:24:... Start Date: 09/21/19 Status: Ordered SEROquel 400 mg oral tablet 1 tablet = 400 mg, By Mouth, Daily at bedtime, # 30 tablet, 3 Refills, Maintenance, 01/21/19 11:24:55 EDT, Tablet Start Date: 01/21/19 Status: Ordered Simbrinza 1%- 0.2% ophthalmic suspension 1 drops, Eyes, Both, 2 times a day, # 8 mL, 3 Refills, Maintenance, 04/08/22 9:09:00 EDT, Suspension, [facility]/pharmacy #[id number], 1 drops Eyes, Both 2 times a day, 175, cm, 04/08/22 8:34:00 EDT, Height, 93, kg, 01/28/22 14:55:00 EDT, Dry Weight Start Date: 04/08/22 Status: Ordered Tresiba FlexTouch 200 units/mL subcutaneous solution See Instructions, INJECT 24 UNITS SUBCUTANEOUSLY DAILY AT BEDTIME, INCREASE 2 UNITS EVERY 3 DAYS UNTIL FBS < 120 PER PCP MAX DOSE 60 UNITS/DAY, # 9 Unknown, 1 Refills, 01/21/22 15:39:00 EDT, [id number], 175.2, cm, 12/18/21 14:10:00 EDT, Height... Start Date: 01/21/22 Status: Ordered Trulicity Pen 0.75 mg/0.5 mL subcutaneous solution 0.5 mL = 0.75 mg, Subcutaneous Injection, Every week, # 2.5 mL, 2 Refills, Maintenance, 04/08/22 9:12:00 EDT, Solution, [id number], Partial fill upon patient request if the prescription is for a schedule II opioid drug., 175, cm, 04/08/22 8:34... Start Date: 04/08/22 Status: Ordered Trulicity Pen 0.75 mg/0.5 mL subcutaneous solution 0.5 mL = 0.75 mg, Subcutaneous Injection, Every week, # 2.5 mL, 5 Refills, Maintenance, 11/15/21 11:40:00 EDT, Solution, Partial fill upon patient request if the prescription is for a schedule II opioid drug. Start Date: 11/15/21 Status: Ordered Vitamin D3 2000 intl units oral capsule 1 capsule, By Mouth, Daily, # 30 capsule, 5 Refills, 05/21/22 10:19:00 EST, [id number], 175, cm, 05/09/22 11:08:00 EDT, Height, 93, kg, 01/28/22 14:55:00 EDT, Dry Weight Start Date: 05/21/22 Status: Ordered Problem List Condition Confirmation Course Effective Dates Status Health Status Informant Bipolar disorder Confirmed Active Cervical spondylosis Confirmed Active Chronic back pain DJD Confirmed Active Glomerulonephritis,ulloa ngial proliferative/fibrillar y 1, 2 Confirmed Active Chronic renal failure, stage 4 (severe) Confirmed Active ASHD; [place] 2012/stent circumflex vessel cath;abdelrahman 2018 3 Confirmed Active Epididymal cyst rt Confirmed 04/18/19 Active Low serum vitamin D Confirmed Active Dizzinesses Confirmed Active Insulin long-term use Confirmed Active [...] 2012/ 6 Confirmed Active Hyperlipidemia Confirmed Active Hypertension Confirmed Active LVH (left ventricular hypertrophy) echo Confirmed 12/04/16 Active Low back pain Confirmed Active Lumbar spondylosis 7 Confirmed Active Multiple lung nodules LDCT Confirmed Active Obesity Confirmed Active Lower extremity pain Confirmed Active Tubular adenoma of colon colonoscopy [...] mild to moderate. 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 2013/[place] 4secondary to hep C 524 weeks therapy with sofosbuvir/weight based ribavirin 66368 inferolateral stent bare metal circumflex 7DR Molddoverno [...] Member Role: Lifetime Consulting Physician Address: Address: [address] [place] [address] [facility] [place] [address]- Name: Kelly Butler NP Position: [facility] PCO Associate Professional Member Role: PCP Address: Address: [address] [place] [address]- Name: Kristin Mckenzie Position: [facility] Outreach Member Role: Lifetime Consulting Physician Name: Prieto Tobin RN Position: [facility] RN Member Role: Primary Care Nurse Name: Jonn Hui DO Position: [facility] Renal MD Member Role: Lifetime Consulting Physician Address: Address: [address] [place] [address] [address] [facility] [place], [place] [address] Name: Zafar CALVO, Luis Angel Rojas Position: S RN Member Role: Primary Care Nurse Name: Tamie Baird RN Position: [facility] RN Member Role: Primary Care Nurse Care Team Related Persons Name: CARLOS A BORDEN Address: home [address] [place] [address] Name: LEVI BORDEN Address: home [address] [place] [address]
--- OUTSIDE RECORDS SUMMARY | 2024-06-01 11:53 | XMS_ITS | Continuity of Care Document ---
Author Organization [facility] ter Address [address] [place] [address]- Care Team Providers Care Herb Counselor Name Role Phone Ben Viera MD Primary Care Physician Encounter [facility] Date(s): 08/23/19 - 09/13/[address] [address]- [facility] Encounter Diagnosis Atherosclerotic heart disease of [place] coronary artery without angina pectoris (Final) - Discharge Disposition: A-D/C Home Attending Physician: Jeffrey Leon MD Admitting Physician: Jeffrey Leon MD Referring Physician: Jeffrey Leon MD Allergies, Adverse Reactions, Alerts Substance Reaction [...] 10:48:07 EST, Aerosol, Route to Pharmacy Electronically, [id number], [facility]/pharmacy #[id number], 180, cm, 06/17/19 10:36:11 EST, Height Start Date: 06/17/19 Status: Ordered aspirin 81 mg oral tablet 1 tablet = 81 mg, By Mouth, Daily, # 30 tablet, 11 Refills, Maintenance, 09/03/19 14:22:00 EST, Tablet, [facility]/pharmacy #[id number], 180, cm, 08/01/19 10:43:00 EST, Height [...] Refills, Maintenance, 08/16/19 14:00:00 EST, CR Capsule, [facility]/pharmacy #[id number], 172, cm, 08/11/19 13:32:00 EST, Height, [...] 05/09/19 9:31:26 EST, Route to Pharmacy Electronically, [id number], [facility]/pharmacy #[id number] Start Date: 05/09/19 Status: Ordered Colace sodium 100 mg oral capsule 100 mg, 1, capsule, By Mouth, 2 times a day, PRN, # 60 capsule, Refills 5, Tot. Refills 5, Maintenance, for constipation, 04/25/19 13:50:52 EDT, Route to Pharmacy Electronically, [id number], [facility]/pharmacy #[id number] Start Date: 04/25/19 Status: Ordered Crestor 20 mg oral tablet 1 tablet = 20 mg, By Mouth, Daily, discontinue crestor 10 mg daily, # 90 tablet, 3 Refills, Maintenance, 05/12/19 13:46:50 EST, Tablet Start Date: 05/12/19 Status: Ordered Daily Simone oral tablet 1 tablet, By Mouth, Daily, # 30 tablet, 11 Refills, Maintenance, 09/30/18 12:27:31 EDT, Tablet, 1 tablet By Mouth Daily,x30 days Start Date: 09/30/18 Stop Date: 09/25/19 Status: Ordered folic acid 1 mg oral tablet 1 mg, 1, tablet, By Mouth, Daily, # 30 tablet, Refills 11, Tot. Refills 11, Maintenance, 02/14/19 16:39:14 EDT, Route to Pharmacy Electronically, [id number], [facility]/pharmacy #[id number] Start Date: 02/14/19 Status: Ordered Freestyle [...] 01/21/19 11:25:36 EDT, Route to Pharmacy Electronically, [id number], [facility]/pharmacy #[id number] Start Date: 01/21/19 Stop Date: 05/21/19 [...] 06/21/19 14:10:15 EST, Route to Pharmacy Electronically, [facility]/pharmacy #[id number], 180, cm, 06/17/19 10:36:11 EST, Height Start Date: 06/21/19 Status: Ordered metoprolol 50 mg oral tablet 75 mg, 1.5, tablet, By Mouth, 2 times a day, stop metoprolol 50 mg twice daily, # 180 tablet, Refills 2, Tot. Refills 2, Maintenance, 08/26/19 9:30:00 EST, Route to Pharmacy Electronically, [facility]/pharmacy #[id number], 172, cm, 08/23/19 10:02:00 EST, Height, 9... Start Date: 08/26/19 Status: Ordered nicotine 2 mg oral transmucosal lozenge 1 lozenge = 2 mg, By Mouth, Every 2 hours, SUCK UP TO Q1 HOURS 10 DAILY, # 144 lozenge, 2 Refills, Maintenance, 07/15/19 12:34:00 EST, [facility]/pharmacy #[id number], 1 lozenge By Mouth Every 2 [...] PAIN CALL 911 IF PAIN NOT RELIEVED, [facility]/pharmacy #[id number] Start Date: 02/17/19 Status: Ordered NovoLOG FlexPen 100 units/mL subcutaneous solution See Instructions, # 15 Unknown, Refills 5 Tot. Refills 5, INJECT 0-18 UNITS SUBCUTANEOUSLY WITH MEALS FOR SLIDING SCALES, [facility]/pharmacy #[id number] Start Date: 01/04/19 Status: Ordered Pen [place], 31 G x 5 mm BD Ultra [...] times a day, # 60 tablet, Refills 11, Tot. Refills 11, Maintenance, 01/21/19 11:26:23 EDT, Route to Pharmacy Electronically, [id number], [facility]/pharmacy #[id number] Start Date: 01/21/19 Status: Ordered SEROquel 400 mg oral tablet [...] EST, Tablet, this was previously sent to [facility] pharmacy Start Date: 05/17/19 Stop Date: 05/11/20 Status: Ordered Tresiba FlexTouch 200 units/mL subcutaneous solution = 90 units, Subcutaneous Infusion, Daily, at bedtime, # 15 mL, 5 Refills, Maintenance, 08/04/19 13:13:00 EST, [facility]/pharmacy #[id number], 180, cm, 08/01/19 10:43:00 EST, Height [...] renal insufficiency, stage III (moderate)(Confirmed) Active ASHD; [place] 2012/stent circumfl ex vessel cath;abdelrahman 2018(Confirmed) 3 [...] mild to moderate. 3MI 2012 circumflex stent 2012/[place] 4secondary to hep C 524 weeks therapy with sofosbuvir/weight based ribavirin 33951 inferolateral stent bare metal circumflex 7DR Marissa sx;Dr Schwartz 8repeat colonoscopy in 5 years Vital Signs Most recent to oldest [Reference Range]: 1 Height 172 cm (08/23/19 10:02 AM) Weight 100 kg (08/23/19 10:02 AM) Body Mass Index [18.5-24.99] 33.8 *>HHI* (08/23/19 10:02 AM) Weight Obtained Via Patient/family state d (08/23/19 10:02 AM) Social History Social History Type Response Smoking Status Former smoker, quit more than 30 days ago entered on: 12/22/18 Sex
--- OUTSIDE RECORDS SUMMARY | 2024-06-01 11:53 | XMS_ITS | Continuity of Care Document ---
Author Organization [facility] Shawn Lazaro lt Address [address] [place] [address]- Care Team Providers Care Instrument Worker Name Role Phone Aylin HICKMAN, Ben Willis Primary Care Physician [phone] Encounter [facility] Date(s): 10/27/19 - 11/26/19 [facility] [address] [place] [address]- [facility] Attending Physician: Admtr, Ar8 Admitting Physician: Admtr, Ar8 Referring Physician: Admtr, Ar8 Allergies, Adverse Reactions, Alerts Substance Reaction Severity [...] 10:48:07 EST, Aerosol, Route to Pharmacy Electronically, [id number], [facility]/pharmacy #[id number], 180, cm, 06/17/19 10:36:11 EST, Height Start Date: 06/17/19 Status: Ordered aspirin 81 mg oral tablet 1 tablet = 81 mg, By Mouth, Daily, # 30 tablet, 11 Refills, Maintenance, 09/03/19 14:22:00 EST, Tablet, [facility]/pharmacy #[id number], 180, cm, 08/01/19 10:43:00 EST, Height [...] Refills, Maintenance, 08/16/19 14:00:00 EST, CR Capsule, [facility]/pharmacy #[id number], 172, cm, 08/11/19 13:32:00 EST, Height, 97.8, kg, 08/11/19 5:24:00 EST, Dry Weight Start Date: 08/16/19 Status: Ordered cholecalciferol 2000 intl units oral capsule 1 capsule = 2,000 International_Units, By Mouth, Daily, # 30 capsule, 5 Refills, Maintenance, 11/02/19 10:15:00 EDT, Capsule, [facility]/pharmacy #[id number], 172, cm, 09/05/19 16:17:00 EST, Height, 97.8, kg, 08/11/19 5:24:00 EST, Dry Weight Start Date: 11/02/19 Status: Ordered cloNIDine 0.2 mg oral tablet 0.2 mg, 1, tablet, By Mouth, 2 times a day, # 60 tablet, Refills 2, Tot. Refills 2, Maintenance, 10/25/19 10:20:00 EDT, Route to Pharmacy Electronically, [facility]/pharmacy #[id number], 172, cm, 09/05/19 16:17:00 EST, Height, 97.8, kg, 08/11/19 5:24:00 EST, Dry W... Start Date: 10/25/19 Status: Ordered Colace sodium 100 mg oral capsule 100 mg, 1, capsule, By Mouth, 2 times a day, PRN, # 60 capsule, Refills 5, Tot. Refills 5, Maintenance, for constipation, 04/25/19 13:50:52 EDT, Route to Pharmacy Electronically, [id number], [facility]/pharmacy #[id number] Start Date: 04/25/19 Status: Ordered Crestor 20 mg oral tablet 1 tablet = 20 mg, By Mouth, Daily, # 90 tablet, 3 Refills, Maintenance, 10/25/19 11:14:00 EDT, Tablet, [facility]/pharmacy #[id number], 172, cm, 09/05/19 16:17:00 EST, Height, 97.8, kg, 08/11/19 5:24:00 EST, Dry Weight Start Date: 10/25/19 Status: Ordered Daily Simone oral tablet 1 tablet, By Mouth, Daily, # 30 tablet, 5 Refills, Maintenance, 09/21/19 10:41:00 EDT, Tablet, [facility]/pharmacy #[id number], 1 tablet By Mouth Daily,x30 days, 172, cm, 09/05/19 16:17:00 EST, Height, 97.8, kg, 08/11/19 5:24:00 EST, Dry Weight Start Date: 09/21/19 Stop Date: 03/19/20 Status: Ordered folic acid 1 mg oral tablet 1 mg, 1, tablet, By Mouth, Daily, # 30 tablet, Refills 11, Tot. Refills 11, Maintenance, 02/14/19 16:39:14 EDT, Route to Pharmacy Electronically, [id number], [facility]/pharmacy #[id number] Start Date: 02/14/19 Status: Ordered Freestyle [...] 01/21/19 11:25:36 EDT, Route to Pharmacy Electronically, [id number], [facility]/pharmacy #[id number] Start Date: 01/21/19 Stop Date: 05/21/19 Status: Ordered latanoprost 0.005% ophthalmic solution 1 drops, Eyes, Both, Daily at bedtime, # 3 mL, 0 Refills, Maintenance, 02/02/19 16:23:39 EDT, OphthSolution, 1 drops Eyes, Both Daily at bedtime Start Date: 02/02/19 Status: Ordered lisinopril 20 mg oral tablet 40 mg, 2, tablet, By Mouth, Daily, # 60 tablet, Refills 1, Tot. Refills 1, Maintenance, 11/25/19 16:21:00 EDT, Route to Pharmacy Electronically, [facility]/pharmacy #[id number], 172, cm, 09/05/19 16:17:00 EST, Height, 97.8, kg, 08/11/19 5:24:00 EST, Dry Weight Start Date: 11/25/19 Status: Ordered metoprolol 50 mg oral tablet 75 mg, 1.5, tablet, By Mouth, 2 times a day, stop metoprolol 50 mg twice daily, # 180 tablet, Refills 2, Tot. Refills 2, Maintenance, 08/26/19 9:30:00 EST, Route to Pharmacy Electronically, [facility]/pharmacy #[id number], 172, cm, 08/23/19 10:02:00 EST, Height, 9... Start Date: 08/26/19 Status: Ordered nicotine 4 mg oral transmucosal lozenge 1 lozenge = 4 mg, By Mouth, Every hour, # 132 lozenge, 1 Refills, Maintenance, 10/05/19 11:01:00 EDT, [id number], 1 lozenge By Mouth Every hour, 172, cm, 09/05/19 16:17:00 EST, Height, 97.8, kg, 08/11/19 5:24:00 EST, Dry Weight Start Date: 10/05/19 Status: Ordered nicotine 4 mg oral transmucosal [...] PAIN CALL 911 IF PAIN NOT RELIEVED, [id number] Start Date: 02/17/19 Status: Ordered NovoLOG FlexPen 100 units/mL subcutaneous solution See Instructions, # 15 Unknown, Refills 5 Tot. Refills 5, INJECT 0-18 UNITS SUBCUTANEOUSLY WITH MEALS FOR SLIDING SCALES, [id number] Start Date: 01/04/19 Status: Ordered Pen [place], 31 G x 5 mm BD Ultra Fine III See Instructions, # 150 each, Refills 11, Tot. Refills 11, Maintenance, Test blood sugar 5 times daily, 08/01/19 15:23:00 EST, DM E11.9, Compound, 180, cm, 08/01/19 10:43:00 EST, Height Start Date: 08/01/19 Status: Ordered semaglutide 2 mg/1.5 mL subcutaneous solution = 0.25 mg, Subcutaneous Injection, Every week, # 1.5 mL, 0 Refills, Maintenance, 10/05/19 11:07:00 EDT, Solution, [id number], 172, cm, 09/05/19 16:17:00 EST, Height, 97.8, kg, 08/11/19 5:24:00 EST, Dry Weight Start Date: 10/05/19 Stop Date: 11/02/19 Status: Ordered senna - oral tablet 2 tablet, By Mouth, Daily at bedtime, PRN for constipation, PRN, # 60 tablet, 1 Refills, Maintenance, 09/08/17 9:54:01, Tablet Start Date: 09/08/17 Status: Ordered SEROquel 100 mg oral tablet 100 mg, 1, tablet, By Mouth, 2 times a day, # 60 tablet, Refills 2, Tot. Refills 2, Maintenance, 09/21/19 10:41:00 EDT, Route to Pharmacy Electronically, [facility]/pharmacy #[id number], 172, cm, 09/05/19 16:17:00 EST, Height, [...] EST, Tablet, this was previously sent to [facility] pharmacy Start Date: 05/17/19 Stop Date: 05/11/20 Status: Ordered Tresiba FlexTouch 200 units/mL subcutaneous solution = 90 units, Subcutaneous Infusion, Daily, at bedtime, # 15 mL, 5 Refills, Maintenance, 08/04/19 13:13:00 EST, [facility]/pharmacy #[id number], 180, cm, 08/01/19 10:43:00 EST, Height Start Date: 08/04/19 Status: Ordered Problem List Condition Effective Dates Status Health Status Inform ant Acute pancreatitis(Confirmed) 07/16/16 Active Adenomatous colon polyp(Confirmed) Active Bipolar disorder(Confirmed) Active Cervical spondylosis(Confirmed) Active Chronic back pain opiates pe r physiatry(Confirmed) Active Glomerulonephritis,mesangial proliferative/fibrillary(Confirmed) 1, 2 Active Chronic renal impairment, st age 3 (moderate)(Confirmed) Active ASHD; [place] 2012/stent circumfl ex vessel cath;abdelrahman 2018(Confirmed) 3 Active Epididymal cyst rt(Confirmed) 04/18/19 Active Low serum vitamin D(Confirmed) Active Insulin long-term use(Confirmed) Active Ex-smoker quit 2018c t enrolled(Confirmed) Active Fibrillary glomerulonephritis(Confirmed) 4 Active [...] mild to moderate. 3MI 2012 circumflex stent 2012/[place] 4secondary to hep C 524 weeks therapy with sofosbuvir/weight based ribavirin 87665 inferolateral stent bare metal circumflex 7DR Mairssa sx;Dr Schwartz 8repeat colonoscopy in 5 years Procedures Procedure Date Related Diagnosis Body Site Status Echocardiogram ef55-60% inf hypokinesis 08/11/19 Completed Chest X-ray lll aterlewctasis 08/10/[address] of brain nad 08/10/[address] of lumbar region djd 08/10/19 C ompleted EKG 08/10/19 Completed Duplex scan of lower limb veins rt 1 09/22/16 Completed 1neg dvt Vital Signs Most recent to oldest [Reference Range]: 1 Blood Pressure [90-138/55-84 mm Hg] 130/ 58mm Hg (04/12/19 2:50 PM) Blood pressure sites Arm, right (04/12/19 2:50 PM) Social History Social History Type Response Smoking Status Former smoker, quit more than 30 days ago entered on: 12/22/18 Sex
--- OUTSIDE RECORDS SUMMARY | 2024-06-01 11:53 | XMS_ITS | Continuity of Care Document ---
Author Organization [facility] Shawn Lazaro lt Address [address] [place] [address]- Care Team Providers Care Position Clerk Name Role Phone Ben Viera MD Primary Care Physician [phone] Encounter [facility] Date(s): 07/20/20 - 07/27/20 [facility] [address] [place] [address]- Encounter Diagnosis Hypertension(Discharge Diagnosis) - 07/20/20 Attending Physician: Ben Viera MD Allergies, Adverse Reactions, Alerts Substance Reaction Severity Status Bee Stings Active Immunizations Given and Recorded Vaccine Date Status Refusal Reason Influenza Virus Vaccine (oldterm) 03/05/20 Recorde d [...] 10:48:07 EST, Aerosol, Route to Pharmacy Electronically, [id number], [facility]/pharmacy #[id number], 180, cm, 06/17/19 10:36:11 EST, Height Start Date: 06/17/19 Status: Ordered aspirin 81 mg oral delayed release tablet 1 tablet, By Mouth, Daily, # 30 tablet, 11 Refills, Maintenance, 06/26/20 12:19:00 EST, [id number], 175, cm, 06/25/20 16:11:00 EST, Height, 83.6, kg, 04/23/20 17:46:00 EDT, Dry Weight Start Date: 06/26/20 Status: Ordered Ativan 1 mg oral tablet 1 tablet = 1 mg, By Mouth, 4 times a day, 0 Refills, Maintenance, 12/27/15 13:11:38 EDT Start Date: 12/27/15 Status: Ordered Blood Pressure Monitor See Instructions, # 1 each, Maintenance, dx: hypertension I10, 07/20/20 10:41:00 EST, Supply Start Date: 07/20/20 Status: Ordered Cartia XT 180 mg/24 hours oral capsule, extended release 1 capsule = 180 mg, By Mouth, Daily, # 90 capsule, 3 Refills, Maintenance, 01/02/20 15:47:00 EDT, CR Capsule, [facility]/pharmacy #[id number], 172, cm, 12/14/19 8:02:00 EDT, Height, 97.8, kg, 08/11/19 5:24:00 EST, Dry Weight Start Date: 01/02/20 Stop Date: 12/27/20 Status: Ordered cholecalciferol 2000 intl units oral capsule 1 capsule = 2,000 International_Units, By Mouth, Daily, # 30 capsule, 5 Refills, Maintenance, 05/25/20 11:53:00 EST, Capsule, [facility]/pharmacy #[id number], 175, cm, 05/24/20 12:46:00 EST, Height, 83.6, kg, 04/23/20 17:46:00 EDT, Dry Weight Start Date: 05/25/20 Status: Ordered cloNIDine 0.2 mg oral tablet 0.2 mg, 1, tablet, By Mouth, 2 times a day, # 60 tablet, Refills 2, Tot. Refills 2, Maintenance, 06/22/20 10:52:00 EST, Route to Pharmacy Electronically, [facility]/pharmacy #[id number], 175, cm, 05/24/20 12:46:00 EST, Height, 83.6, kg, 04/23/20 17:46:00 EDT, Dry... Start Date: 06/22/20 Status: Ordered Colace sodium 100 mg oral capsule 100 mg, 1, capsule, By Mouth, 2 times a day, PRN, # 60 capsule, Refills 5, Tot. Refills 5, Maintenance, for constipation, 02/27/20 15:25:00 EDT, Route to Pharmacy Electronically, [facility]/pharmacy #[id number], 172, cm, 12/14/19 8:02:00 EDT, Height, 97.8, kg, 02/... Start Date: 02/27/20 Status: Ordered Crestor 20 mg oral tablet 1 tablet = 20 mg, By Mouth, Daily, # 90 tablet, 3 Refills, Maintenance, 01/02/20 15:46:00 EDT, Tablet, [facility]/pharmacy #[id number], 172, cm, 12/14/19 8:02:00 EDT, Height, 97.8, kg, 08/11/19 5:24:00 EST, Dry Weight Start Date: 01/02/20 Status: Ordered Daily Simone oral tablet 1 tablet, By Mouth, Daily, # 30 tablet, 5 Refills, Maintenance, 03/01/20 14:48:00 EDT, Tablet, [facility]/pharmacy #[id number], 1 tablet By Mouth Daily,x30 days, 172, cm, 12/14/19 8:02:00 EDT, Height, 97.8, kg, 08/11/19 5:24:00 EST, Dry Weight Start Date: 03/01/20 Stop Date: 08/28/20 Status: Ordered folic acid 1 mg oral tablet 1 mg, 1, tablet, By Mouth, Daily, # 30 tablet, Refills 5, Tot. Refills 5, Maintenance, 07/04/20 13:24:00 EST, Route to Pharmacy Electronically, [facility]/pharmacy #[id number], 175, cm, 06/25/20 16:11:00 EST, Height, 83.6, kg, 04/23/20 17:46:00 EDT, Dry Weight Start Date: 07/04/20 Status: Ordered Freestyle Lite Test Strips See [...] bedtime, # 60 tablet, 5 Refills, Maintenance, 02/27/20 15:23:00 EDT, [facility]/pharmacy #[id number], 172, cm, 12/14/19 8:02:00 EDT, Height, 97.8, kg, 08/11/19 5:24:00 EST, Dry Weight Start Date: 02/27/20 Status: Ordered Golytely - oral powder for reconstitution 240 mL, By Mouth, Daily, bowel instruction, # 4,000 mL, 0 Refills, Maintenance, 06/21/20 16:44:00 EST, REC Powder, [facility]/pharmacy #[id number], Partial fill upon patient request if the prescription is for a schedule II opioid drug., 240 mL By Mouth Daily,Instr... Start Date: 06/21/20 Status: Ordered LaMICtal 100 mg oral tablet 100 mg, 1, tablet, By Mouth, 2 times a day, # 60 tablet, Refills 3, Tot. Refills 3, Maintenance, 01/21/19 11:25:36 EDT, Route to Pharmacy Electronically, [id number], [facility]/pharmacy #[id number] Start Date: 01/21/19 Stop Date: 05/21/19 Status: Ordered latanoprost 0.005% ophthalmic solution 1 drops, Eyes, Both, Daily at bedtime, # 3 mL, 0 Refills, Maintenance, 02/02/19 16:23:39 EDT, OphthSolution, 1 drops Eyes, Both Daily at bedtime Start Date: 02/02/19 Status: Ordered lisinopril 20 mg oral tablet 20 mg, 1, tablet, By Mouth, Daily, # 90 tablet, Refills 0, Maintenance, 07/21/20 13:28:00 EST, Partial fill upon patient request if the prescription is for a schedule II opioid drug. Start Date: 07/21/20 Status: Ordered LORazepam 1 mg oral tablet 1 tablet = 1 mg, By Mouth, 4 times a day, 0 Refills, Maintenance, 05/04/20 14:26:00 EDT Start Date: 05/04/20 Status: Ordered metoprolol 50 mg oral tablet 75 mg, 1.5, tablet, By Mouth, 2 times a day, stop metoprolol 50 mg twice daily, # 180 tablet, Refills 2, Tot. Refills 2, Maintenance, 01/02/20 15:45:00 EDT, Route to Pharmacy Electronically, [facility]/pharmacy #[id number], 172, cm, 12/14/19 8:02:00 EDT, Height, 9... Start Date: 01/02/20 Status: Ordered nicotine 2 mg oral transmucosal lozenge See Instructions, suck, up to q1 hrs 10 daily, # 144 lozenge, 1 Refills, Maintenance, 03/21/20 11:13:00 EDT, [facility]/pharmacy #[id number], suck, up to q1 hrs 10 daily, 172, cm, 03/21/20 11:04:00 EDT, Height, 97.8, kg, 08/11/19 5:24:00 EST, Dry Weight Start Date: 03/21/20 Status: Ordered nicotine 4 mg oral transmucosal lozenge 1 lozenge = 4 mg, By Mouth, Every hour, dispense 2 boxes of 81 count, # 189 lozenge, 1 Refills, Maintenance, 07/12/20 15:43:00 EST, [facility]/pharmacy #[id number], 1 lozenge By Mouth Every hour,Instr:dispense 2 boxes of 81 count, 175, cm, 06/25/20 16:11:00 EST, H... Start Date: 07/12/20 Status: Ordered nitroglycerin 0.4 mg sublingual tablet 1 tablet = 0.4 mg, Sublingual, Every 5 minutes, PRN for chest pain, call MD after taking 3 tabs in total in a day, # 100 tablet, 0 Refills, Maintenance, 05/12/19 13:47:55 EST, Tablet Start Date: 05/12/19 Status: Ordered nitroglycerin 0.4 mg sublingual tablet See Instructions, DISSOLVE 1 UNDER TONGUE NEEDED FOR MILD PAIN IF CHEST PAIN CALL 911 IF PAIN NOT RELIEVED, # 25 tablet, 2 Refills, Soft Stop, 06/01/20 13:51:00 EST, [facility]/pharmacy #[id number], 175, cm, 05/24/20 12:46:00 EST, Height, 83.6, kg, 04/23/20 17:... Start Date: 06/01/20 Status: Ordered NovoLOG FlexPen 100 units/mL subcutaneous solution See Instructions, Give SQ insuline tid with meals if BS 101-120 2 units, 121- 150: 6 units, 151-180:8 units, 181-200: 10 units, 201-250: 12 units, 251-300: 15 units, 301-350: 18 units, > 350 call pcp, # 15 Unknown, 5 Refills, Soft Stop, 02/01/20 9:13:... Start Date: 02/01/20 Status: Ordered Pen [place], 31 G x 5 mm BD Ultra Fine III See Instructions, # 150 each, Refills 11, Tot. Refills 11, Maintenance, Test blood sugar 5 times daily, 08/01/19 15:23:00 EST, DM E11.9, Compound, 180, cm, 08/01/19 10:43:00 EST, Height Start Date: 08/01/19 Status: Ordered senna - oral tablet 2 tablet, By Mouth, Daily at bedtime, PRN for constipation, PRN, # 60 tablet, 1 Refills, Maintenance, 09/08/17 9:54:01, Tablet Start Date: 09/08/17 Status: Ordered SEROquel 100 mg oral tablet 100 mg, 1, tablet, By Mouth, 2 times a day, # 60 tablet, Refills 2, Tot. Refills 2, Maintenance, 09/21/19 10:41:00 EDT, Route to Pharmacy Electronically, [facility]/pharmacy #[id number], 172, cm, 09/05/19 16:17:00 EST, [...] EST, Tablet, this was previously sent to [facility] Start Date: 05/17/19 Stop Date: 05/11/20 Status: Ordered Tresiba FlexTouch 200 units/mL subcutaneous solution = 70 units, Subcutaneous Infusion, Daily, at bedtime, # 15 mL, 5 Refills, Maintenance, 08/04/19 13:13:00 EST, [facility]/pharmacy #[id number], 180, cm, 08/01/19 10:43:00 EST, Height Start Date: 08/04/19 Status: Ordered Problem List Condition Effective Dates Status Health Status Inform ant Acute pancreatitis(Confirmed) 07/16/16 Active Adenomatous colon polyp(Confirmed) Active Bipolar disorder(Confirmed) Active Cervical spondylosis(Confirmed) Active Chronic back pain DJD(Confirmed) Active Glomerulonephritis,mesangial proliferative/fibrillary(Confirmed) 1, 2 Active ASHD; [place] 2012/stent circumfl ex vessel cath;abdelrahman 2018(Confirmed) 3 Active Epididymal cyst rt(Confirmed) 04/18/19 Active Low serum vitamin D(Confirmed) Active Dizzinesses(Confirmed) Active Insulin long-term use(Confirmed) Active Dysphagia(Confirmed) Active Ex-smoker quit 2018/c t enrolled(Confirmed) Active Fibrillary glomerulonephritis(Confirmed) 4 Active [...] Active Obesity(Confirmed) Active Lower extremity pain(Confirmed) Active Medicare annual wellness vis it, subsequent(Confirmed) Active Syncopal episodes(Confirmed) Active Tubular adenoma of colon(Confirmed) 8 12/12/15 [...] mild to moderate. 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 524 weeks therapy with sofosbuvir/weight based ribavirin 80681 inferolateral stent bare metal circumflex 7DR Molddoverno sx;Dr Schwartz 8repeat colonoscopy in 5 years Diagnosis Diagnosis Type Effective Dates Health Status Cl inical Service Informant Hypertension Discharge Diagnosis 07/20/20 Vital Signs Most recent to oldest [Reference Range]: 1 2 3 Height 175 cm (07/20/20 10:29 AM) 175 cm (07/20/20 10:24 AM) 175 cm (07/20/20 10:13 AM) Weight 88.3 kg (07/20/20 10:09 AM) Oxygen Saturation [94-100 %] 98 % (07/20/20 10:09 AM) Pulse Rate [55-90 bpm] 78 bpm (07/20/20 10:09 AM) Body Mass Index [18.5-24.99] 28.83 *H* (07/20/20 10:09 AM) Blood Pressure [90-138/55-84 mm Hg] 146/68mm Hg *H* (07/20/20 10:29 AM) 142/78mm Hg *H* (07/20/20 10:24 AM) 170/70mm Hg *H* (07/20/20 10:13 AM) Respiratory Rate [16-30 br/min] 20 br/min (07/20/20 10:09 AM) Blood pressure sites Arm, left (07/20/20 10:29 AM) Arm, left (07/20/20 10:24 AM) Arm, left (07/20/20 10:13 AM) Social History Social History Type Response Smoking Status Former smoker, quit more than 30 days ago; Interested in cessation: No; Other: quit; Tobacco use times per day: prio 1/2-1 ppd; Total pack years: 38; Started at age: 12; Stopped at age: 63; entered on: 07/20/20 Sex
--- OUTSIDE RECORDS SUMMARY | 2024-06-01 11:53 | XMS_ITS | Continuity of Care Document ---
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 Name Role Phone Carrie Kelly RIVERA Primary Care Physician [place] [facility] 11/08/22 - 12/18/[address] [address] Attending Physician: Kaden Aguayo MD Admitting Physician: Kaden Aguayo MD Referring Physician: Kaden Aguayo MD Allergies, Adverse Reactions, Alerts Substance Reaction [...] influenza virus vaccine, inactivated 04/16/10 Give n [id number] 12y+ bivalent booster vax 05/17/22 Recorded SARS-CoV-2 [...] tablet, 3 Refills, Maintenance, 09/30/21 12:28:00 EDT, [facility]/pharmacy#[id number], 175.2, cm, 09/20/21 8:36:00 EDT, Height, 88.3, [...] Daily, # 30 tablet, 5 Refills, Maintenance, 08/15/22 10:27:00 EST, Tablet, [facility]/pharmacy #[id number], 1 tablet By Mouth Daily,x30 days, 175, cm, 07/17/22 10:33:00 EST, Height, 93, kg, 01/28/22 14:55:00 EDT, Dry Weight Start Date: 08/15/22 Stop Date: 02/11/23 Status: Ordered dapagliflozin 10 mg oral tablet [...] Daily, # 90 capsule, 0 Refills, Maintenance, 10/24/22 10:10:00 EDT, [facility]/pharmacy #[id number], 175, cm, 10/09/22 16:51:00 EDT, Height, 93, kg, 01/28/22 14:55:00 EDT, Dry Weight Start Date: 10/24/22 Status: Ordered docusate sodium 100 mg oral capsule 1 capsule, By Mouth, 2 times a day, PRN NEEDED FOR CONSTIPATION, # 60 capsule, 5 Refills, Maintenance, 07/18/22 11:59:00 EST, [facility]/pharmacy #[id number], 175, cm, 07/17/22 10:33:00 EST, Height, 93, kg, 01/28/22 14:55:00 EDT, Dry Weight Start Date: 07/18/22 Status: Ordered Flonase 50 mcg/inh nasal spray 1 sprays, Nares, Both, 2 times a day, # 16 Gm, 0 Refills, Maintenance, 09/05/22 9:15:00 EST, [place],[facility]/pharmacy #[id number], Partial fill upon patient request if the prescription is for a schedule II opioid drug., 1 sprays Nares, Both 2 times a day, 175, c... Start Date: 09/05/22 Status: Ordered folic acid 1 mg oral tablet 1, tablet, By Mouth, Daily, # 30 tablet, Refills 5, Tot. Refills 5, Maintenance, 08/15/22 10:27:00 EST, Route to Pharmacy Electronically, [facility]/pharmacy #[id number], 175, cm, 07/17/22 10:33:00 EST, Height, [...] 01/21/19 11:25:36 EDT, Route to Pharmacy Electronically, [id number], [facility]/pharmacy #[id number] Start Date: 01/21/19 Stop Date: 05/21/19 Status: Ordered lisinopril 40 mg oral tablet 1 tablet, By Mouth, Daily, # 90 tablet, 0 Refills, Maintenance, 10/24/22 10:11:00 EDT, [facility]/pharmacy#[id number], 175, cm, 10/09/22 16:51:00 EDT, Height, 93, kg, 01/28/22 14:55:00 EDT, Dry Weight Start Date: 10/24/22 Status: Ordered Metoprolol Tartrate 50 mg oral tablet 1.5 tablet, By Mouth, 2 times a day, # 270 tablet, 1 Refills, Maintenance, 09/01/22 13:28:00 EST, [id number], 175, cm, 07/17/22 10:33:00 EST, Height, 93, kg, 01/28/22 14:55:00 EDT, Dry Weight Start Date: 09/01/22 Status: Ordered Nicotine 7 mg/24 hour patch 1 patch, Topically, Daily, # 30 patch, 0 Refills, Maintenance, 11/17/22 11:45:00 EDT, Patch, [facility]/pharmacy #[id number], Partial fill upon patient request if [...] tablet, 0 Refills, Maintenance, 10/03/22 15:53:00 EDT, [facility]/pharmacy #[id number], 175, cm, 09/17/22 13:59:00 EDT, Height,... Start Date: 10/03/22 Status: Ordered NovoLOG FlexPen 100 units/mL injectable solution See Instructions, INJECT 0-18 UNITS SUBCUTANEOUSLY WITH MEALS FOR SLIDING SCALES, # 15 Unknown, 2 Refills, 11/07/22 0:09:00 EDT, [facility]/pharmacy #[id number], 175, cm, 10/09/22 16:51:00 EDT, Height, 93, kg, 01/28/22 14:55:00 EDT, Dry Weight Start Date: 11/07/22 Status: Ordered Pen [place], 31 G x 5 mm BD Ultra [...] capsule, 2 Refills, Maintenance, 08/07/22 12:55:00EST, Capsule, [facility]/pharmacy #[id number], 175, cm, 07/17/22 10:33:00 EST, Height, 93, kg, 01/28/22 14:55:00EDT, Dry Weight Start Date: 08/07/22 Status: Ordered rosuvastatin 20 mg oral tablet 1 tablet, By Mouth, Daily, # 90 tablet, 1 Refills, Maintenance, 05/21/22 13:33:00 EST, [id number], 175, cm, 05/09/22 11:08:00 EDT, Height, 93, kg, 01/28/22 14:55:00 EDT, Dry Weight Start Date: 05/21/22 Status: Ordered Senna 8.6 mg oral tablet 1 or 2 tablets, By Mouth, Daily at bedtime, PRN, # 60 tablet, Refills 5, Tot. Refills 5, Maintenance, Constipation, 11/03/22 15:04:00 EDT, Route to Pharmacy Electronically, [facility]/pharmacy #[id number] Tablet,Partial fill upon patient request if the prescripti... Start Date: 11/03/22 Status: Ordered SEROquel 100 mg oral tablet 100 mg, 1, tablet, By Mouth, 2 times a day, PRN, # 1 tablet, Refills 2, Tot. Refills 2, Maintenance, Anxiety, 09/21/19 10:41:00 EDT, Route to Pharmacy Electronically, [facility]/pharmacy #[id number], 172, cm, 09/05/19 16:17:00 EST, Height, [...] 9 Unknown, 1 Refills, 01/21/22 15:39:00 EDT, [facility]/pharmacy #[id number], 175.2, cm, 12/18/21 14:10:00 EDT, Height... Start Date: 01/21/22 Status: Ordered Trulicity Pen 0.75 mg/0.5 mL subcutaneous solution 0.5 mL = 0.75 mg, Subcutaneous Injection, Every week, # 2.5 mL, 2 Refills, Maintenance, 04/08/22 9:12:00 EDT, Solution, [facility]/pharmacy #[id number], Partial fill upon patient request if the prescription is for a schedule II opioid drug., 175, cm, 04/08/22 8:34... Start Date: 04/08/22 Status: Ordered Ventolin HFA 108 mcg/inh inhalation aerosol with adapter 2 puffs, Inhalation, Every 4 hours, PRN for wheezing, for 180 days, # 1 each, 0 Refills, Acute 03/05/23 16:25:00 EDT, 09/06/22 16:25:00 EST, Aerosol, [id number], Partial fill upon patient request [...] 4, GFR 15-29 ml/min Confirmed Active ASHD; [place] 2012/stent circumflex vessel cath;abdelrahman 2018 3 Confirmed [...] mild to moderate. 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 524 weeks therapy with sofosbuvir/weight based ribavirin 46472 inferolateral stent bare metal circumflex 7DR Molddovernmateo sx;Dr Schwartz 8hyperplatic polyp repeat screening in [...] Team Personnel Name: Jeffrey Mccoy MD Position: [facility] Renal MD Member Role: Lifetime Consulting Physician Address: Address: [address] [place] [address] [facility] [place] [address]- Name: Kelly Butler NP Position: [facility] PCO Associate Professional Member Role: PCP Address: Address: [address] [place] [id number]- Name: Kristin Mckenzie Position: [facility] Outreach Member Role: Lifetime Consulting Physician Name: Prieto Tobin RN Position: [facility] RN Member Role: Primary Care Nurse Name: Jonn Hui DO Position: [facility] Renal MD Member Role: Lifetime Consulting Physician Address: Address: [address] [place], [place] [address] [place], [place] [address] Name: Luis Angel Stephen RN Position: S RN Member Role: Primary Care Nurse Name: Tamie Baird RN Position: [facility] RN Member Role: Primary Care Nurse Care Team Related Persons Name: CARLOS A BORDEN Address: home [address] [place] [address] Name: LEVI BORDEN Address: home [address] [place], [place] [address]
--- OUTSIDE RECORDS SUMMARY | 2024-06-01 11:53 | XMS_ITS | Continuity of Care Document ---
Author Organization [facility] Shawn Lazaro lt Address [address] [place] [address]- Care Team Providers Care Team Truck Driver Name Role Phone Aylin HICKMAN, Ben Willis Primary Care Physician Encounter [facility] [place] Date(s): 12/11/21 - 01/10/22 [facility] Adult [address] [place] [address]- Allergies, Adverse Reactions, Alerts Substance Reaction Severity [...] capsule = 180 mg, By Mouth, Daily, for 90 days, # 90 capsule, 3 Refills, Hard Stop 01/18/22 11:08:00 EDT, 01/23/21 11:08:00 EDT, CR Capsule, [facility]/pharmacy #[id number], 175.3, cm, 01/21/21 12:58:00 EDT, Height, 83.6, kg, 04/23/20 17:46:00 EDT, Dry Weight Start Date: 01/23/21 Stop Date: 01/18/22 Status: Ordered Cartia XT 180 mg/24 hours oral capsule, extended release 1 capsule = 180 mg, By Mouth, Daily, # 90 capsule, 1 Refills, Maintenance, 01/18/22 11:08:00 EDT, CR Capsule, [facility]/pharmacy #[id number], 175.2, cm, 11/15/21 11:18:00 EDT, Height, 88.3, kg, 03/12/21 9:16:00 EDT, Dry Weight Start Date: 01/18/22 Stop Date: 07/17/22 Status: Ordered cloNIDine 0.2 mg oral tablet 0.2 mg, 1, tablet, By Mouth, 2 times a day, # 60 tablet, Refills 5, Tot. Refills 5, Maintenance, 06/24/21 12:51:00 EST, Route to Pharmacy Electronically, [facility]/pharmacy #[id number], 175.2, cm, 06/07/21 9:51:00 EST, Height, 88.3, kg, 03/12/21 9:16:00 EDT, Dry... Start Date: 06/24/21 Status: Ordered Daily Simone oral tablet 1 tablet, By Mouth, Daily, # 30 tablet, 5 Refills, Maintenance, 07/29/21 13:53:00 EST, Tablet, [facility]/pharmacy #[id number], 1 tablet By Mouth Daily,x30 days, 175.2, cm, 06/07/21 9:51:00 EST, Height, 88.3, kg,03/12/21 9:16:00 EDT, Dry Weight Start Date: 07/29/21 Stop Date: 01/25/22 Status: Ordered docusate sodium 100 mg oral capsule 1 capsule, By Mouth, 2 times a day, PRN NEEDED FOR CONSTIPATION, # 60 capsule, 5 Refills, Maintenance, 06/05/21 15:57:00 EST, [facility]/pharmacy #[id number], 175.2, cm, 05/27/21 11:26:00 EST, Height, 88.3, kg, 03/12/21 9:16:00 EDT, Dry Weight Start Date: 06/05/21 Status: Ordered folic acid 1 mg oral tablet 1, tablet, By Mouth, Daily, # 30 tablet, Refills 5, Tot. Refills 5, Maintenance, 07/25/21 15:59:00 EST, Route to Pharmacy Electronically, [facility]/pharmacy #[id number], 175.2, cm, 06/07/21 9:51:00 EST, Height, 88.3, kg, 03/12/21 9:16:00 EDT, Dry Weight Start Date: 07/25/21 Status: Ordered Freestyle Lite Test Strips See Instructions, # 150 each, Refills 5, Tot. Refills 5, Maintenance, pt to test 3 times a day DX: DM E11.9, 08/29/21 7:54:00 EST, NEEDS TO TEST 3 TIMES A DAY FOR INSULIN; ok to fill early if needed,Compound, 175.2, cm, 07/31/21 11:20:00 EST, Heigh... Start Date: 08/29/21 Status: Ordered Marian-kermit 8.6 mg oral tablet 2 tablet = 17.2 mg, By Mouth, Daily at bedtime, # 60 tablet, 5 Refills, Maintenance, 06/05/21 15:57:00 EST, [facility]/pharmacy #[id number], 175.2, cm, 05/27/21 11:26:00 EST, Height, 88.3, kg, 03/12/21 9:16:00 EDT, Dry Weight Start Date: 06/05/21 Status: Ordered LaMICtal 100 mg oral tablet 100 mg, 1, tablet, By Mouth, 2 times a day, # 60 tablet, Refills 3, Tot. Refills 3, Maintenance, 01/21/19 11:25:36 EDT, Route to Pharmacy Electronically, [id number], [facility]/pharmacy #[id number] Start Date: 01/21/19 Stop Date: 05/21/19 Status: Ordered lisinopril 40 mg oral tablet 1 tablet = 40 mg, By Mouth, Daily, # 30 tablet, 3 Refills, Maintenance, 09/17/21 10:50:00 EDT, Tablet, [facility]/pharmacy #[id number], Partial fill upon patient request if the prescription is for a schedule II opioid drug., 175.2, cm, 07/31/21 11:20:00 EST, Heigh... Start Date: 09/17/21 Status: Ordered Metoprolol Tartrate 50 mg oral tablet 1.5 tablet, By Mouth, 2 times a day, # 270 tablet, 0 Refills, [id number], 175.2, cm, 11/15/21 11:18:00 EDT, Height, 88.3, kg, 03/12/21 9:16:00 EDT, Dry Weight Start Date: 12/12/21 Status: Ordered nicotine 2 mg oral transmucosal lozenge See Instructions, USE 1 LOZENGE BY MOUTH UP TO EVERY 1 HOUR NEEDED FOR 10 DAYS, # 144 lozenge, 0Refills, [id number], 10, USE 1 LOZENGE BY MOUTH UP TO EVERY 1 HOUR NEEDED FOR 10 DAYS, 175.2, cm, 12/18/21 14:10:00 EDT, Height, 88.3, kg, 09/0... Start Date: 12/30/21 Status: Ordered nicotine 2 mg oral transmucosal lozenge 1 lozenge = 2 mg, By Mouth, Every 4 hours, for 4 week(s), as directed on package labeling, # 144 lozenge, 0 Refills, Physician Stop 02/06/22 12:37:00 EDT, 01/09/22 12:37:00 EDT, [facility]/pharmacy #[id number], 1lozenge By Mouth Every 4 hours,x4 week(s),Instr:as... Start Date: 01/09/22 Stop Date: 02/06/22 Status: Ordered nitroglycerin 0.4 mg sublingual tablet See Instructions, DISSOLVE 1 UNDER TONGUE EVERY 5 MINUTES NEEDED FOR CHEST PAIN CALL MD AFTER TAKING 3 TABS IN TOTAL IN A DAY, # 100 tablet, 0 Refills, Maintenance, 12/31/21 17:21:00 EDT, [facility]/pharmacy #[id number], 175.2, cm, 12/18/21 14:10:00 EDT, Height... Start Date: 12/31/21 Status: Ordered NovoLOG FlexPen 100 units/mL injectable solution See Instructions, INJECT 0-18 UNITS SUBCUTANEOUSLY WITH MEALS FOR SLIDING SCALES, # 15 Unknown, 2 Refills, [id number], 175.2, cm, 05/27/21 11:26:00 EST, Height, 88.3, kg, 03/12/21 9:16:00 EDT, Dry Weight Start Date: 06/04/21 Status: Ordered Pen [place], 31 G x 5 mm BD Ultra [...] day, # 60 capsule, 5 Refills, Maintenance, 11/19/21 11:25:00EDT, Capsule, [facility]/pharmacy #[id number], 175.2, cm, 11/15/21 11:18:00 EDT, Height, 88.3, kg, 03/12/21 9:16:00 EDT, Dry Weight Start Date: 11/19/21 Status: Ordered pregabalin 75 mg oral capsule 1 capsule = 75 mg, By Mouth, Daily, # 30 capsule, 5 Refills, Maintenance, 06/10/21 12:32:00 EST, Capsule, [facility]/pharmacy #[id number], 175.2, cm, 06/07/21 9:51:00 EST, Height, 88.3, kg, 03/12/21 9:16:00 EDT, Dry Weight Start Date: 06/10/21 Status: Ordered rosuvastatin 20 mg oral tablet 1 tablet, By Mouth, Daily, # 90 tablet, 1 Refills, Maintenance, 08/15/21 14:24:00 EST, [facility]/pharmacy#[id number], 175.2, cm, 07/31/21 11:20:00 EST, Height, 88.3, kg, 03/12/21 9:16:00 EDT, Dry Weight Start Date: 08/15/21 Status: Ordered SEROquel 100 mg oral tablet 100 mg, 1, tablet, By Mouth, 2 times a day, # 60 tablet, Refills 2, Tot. Refills 2, Maintenance, 09/21/19 10:41:00 EDT, Route to Pharmacy Electronically, [facility]/pharmacy #[id number], 172, cm, 09/05/19 16:17:00 [...] day, # 8 mL, 3 Refills, Maintenance, 12/18/21 14:33:00 EDT, Suspension, [facility]/pharmacy #[id number], 1 drops Eyes, Both 2 times a day, 175.2, cm, 12/18/21 14:10:00 EDT, Height, 88.3, kg, 03/12/21 9:16:00 EDT, Dry Weight Start Date: 12/18/21 Status: Ordered sodium bicarbonate 650 mg oral tablet 1 tablet = 650 mg, By Mouth, 2 times a day, # 60 tablet, 0 Refills, Maintenance, 02/11/21 9:14:00 EDT, Tablet, Partial fill upon patient request if the prescription is for a schedule II opioid drug. Start Date: 02/11/21 Status: Ordered Tresiba FlexTouch 200 units/mL subcutaneous solution See Instructions, INJECT 24 UNITS SUBCUTANEOUSLY DAILY AT BEDTIME, INCREASE 2 UNITS EVERY 3 DAYS UNTIL FBS < 120 PER PCP MAX DOSE 60 UNITS/DAY, # 9 Unknown, 1 Refills, [id number], 175.2, cm, 07/31/21 11:20:00 EST, Height, 88.3, kg, 03/12/21 9:16:... Start Date: 08/29/21 Status: Ordered Trulicity Pen 0.75 mg/0.5 mL [...] Mouth, Daily, # 30 capsule, 5 Refills, [id number], 175.2, cm, 11/15/21 11:18:00 EDT, Height, 88.3, kg, 03/12/21 9:16:00 EDT, Dry Weight Start Date: 11/17/21 Status: Ordered Problem List Condition Effective Dates Status Health Status Inform ant Bipolar disorder(Confirmed) Active Cervical spondylosis(Confirmed) Active Chronic back pain DJD(Confirmed) Active Glomerulonephritis,mesangial proliferative/fibrillary(Confirmed) 1, 2 Active Chronic renal failure, stage 4 (severe)(Confirmed) Active ASHD; [place] 2012/stent circumfl ex vessel cath;abdelrahman 2018(Confirmed) 3 Active Epididymal cyst rt(Confirmed) 04/18/19 Active Low serum vitamin D(Confirmed) Active Dizzinesses(Confirmed) Active Insulin long-term use(Confirmed) Active Ex-cigarette smoker quit May 2019 LDCT(Confirmed) Active Fibrillary glomerulonephritis(Confirmed) 4 Active GERD with esophagitis egd 2018(Confirmed) Active Gingivitis(Confirmed) Active Glaucoma of both eyes(Confirmed) Active History of alcoholism(Confirmed) Active History of nephrotic syndrome(Confirmed) Active Hepatitis C rx 2015(Confirmed) 5 Active Encounter for long-term (cur rent) drug use lamictal(Confirmed) Active History of acute myocardial infarction of inferior wall 2012/(Confirmed) 6 Active Hyperlipidemia(Confirmed) Active Hypertension(Confirmed) Active LVH (left ventricular hypert rophy) echo(Confirmed) 12/04/16 Active Low back pain(Confirmed) Active Lumbar spondylosis(Confirmed) 7 Active Multiple lung nodules LDCT (Confirmed) Active Obesity(Confirmed) Active Lower extremity pain(Confirmed) Active Tubular adenoma of colon col onoscopy (Confirmed) 8, 9 12/12/15 Active Type 2 diabetes mellitus wit [...] mild to moderate. 3MI 2012 circumflex stent 2013/[place] 4secondary to hep C 524 weeks therapy with sofosbuvir/weight based ribavirin 60292 inferolateral stent bare metal circumflex 7DR Molddoverno [...]
--- OUTSIDE RECORDS SUMMARY | 2024-06-01 11:53 | XMS_ITS | Continuity of Care Document ---
Author Organization [facility] Address [address] [place] [id number]- Support Name Relationship Address Phone SUHA, CARLOS A NOT LISTED Personal Relationship Unkno wn Unavailable SUHA, CARLOS A Personal Relationship Unknown Rita vailable SUHA, EDWARD Personal Relationship Unknown Unav ailable SUHA, EDWARD Personal Relationship Unknown Unav ailable SUHA, EDWARD Personal Relationship Unknown Unav ailable SUHA, EDWARD Personal Relationship Unknown Unav ailable SUHA, EDWARD T Personal Relationship Unknown Un available SUHA, EDWARD Personal Relationship Unknown Unav ailable SUHA, EDWARD T Personal Relationship Unknown Un available SUHA, EDWARD Personal Relationship Unknown Unav ailable SUHA, EDWARD Personal Relationship Unknown Unav ailable SUHA, CARLOS A former spouse Unknown Unavailable SUHA, EDWARD Personal Relationship Unknown Unav ailable SUHA, EDWARD Personal Relationship Unknown Unav ailable SUHA, CARLOS A RIKY former spouse Unknown Unavail able SUHA, EDWARD Personal Relationship Unknown Unav ailable SUHA, CARLOS A Personal Relationship Unknown Rita vailable SUHA, EDWARD Personal Relationship Unknown Unav ailable SUHA, EDWARD Personal Relationship Unknown Unav ailable SUHA, LEVI Other Unknown Unavailable SUHA, EDWARD Personal Relationship Unknown Unav ailable SUHA, CARLOS A Personal Relationship Unknown Rita vailable SUHA, EDWARD Personal Relationship Unknown Unav ailable SUHA, CARLOS A NOT LISTED Personal Relationship Unkno wn Unavailable SUHA, EDWARD Personal Relationship Unknown Unav ailable SUHA, CARLOS A Personal Relationship Unknown Rita vailable SUHA, CARLOS A Personal Relationship Unknown Rita vailable SUHA, EDWARD Personal Relationship Unknown Unav ailable SUHA, EDWARD Personal Relationship Unknown Unav ailable Care Team Providers Care Feeder Catcher Tobacco Name Role Phone Carrie NURSING INFORMATICS SPECIALIST, Kelly Lopez Primary Care Physician Encounter [facility] [place] Date(s): 04/28/24 - 05/28/24 [facility] Adult [address] [place] [address]- Encounter Type: Triage Allergies, Adverse Reactions, Alerts Substance Criticality Severity Reaction Reaction Severity Status Bee Stings Active Immunizations [...] virus vaccine, inactivated 04/16/10 Give n SARS-CoV-2(COVID-19)mRNA-LNP vac([id number]) 12/31/23 Recorded SARS-CoV-2(COVID-19)mRNA-LNP vac([id number]) 05/08/23 Recorded tetanus/diphtheria/pertussis, acel(Tdap) 10/15/23 Recorded tetanus/diphtheria/pertussis, acel(Tdap) 07/28/11 Given pneumococcal 20-valent conjugate vaccine 3 05/01/23 Given zoster vaccine, inactivated 02/03/23 Recorded zoster vaccine, inactivated 08/09/19 Recorded [id number] 12y+ bivalent booster vax 05/17/22 Recorded SARS-CoV-2 [...] 12/10/10 Given 1Result Comment: [facility] 2Result Comment: [id number] 3Result Comment: [id number] 4Admin Note: pt waited 10 mins post inj no adverse reaction noted.j a 5Admin Note: PT WAITED 10 MIN WITH NO ADVERSE REACTION. Medications albuterol 90 mcg/inh inhalation powder 1 puffs, Inhalation, Every 6 hours, PRN Wheezing/Shortness of Breath, # 1 each, 0 Refills, Maintenance, 02/15/24 1:38:00 PM EDT, Powder, [facility]/pharmacy #[id number], Partial fill upon patient request if the prescription is for a schedule II opioid drug., 1 puffs Inhalation Every 6 hours,PRN:Wheezing/Shortness of Breath, 168, cm, 02/03/24 10:41:00 EDT, Height Start Date: 02/15/24 Status: Ordered Quantity: 1.0 Unit: each Repeat number: 1 Indication: Acute sinusitis, unspecified amLODIPine 10 mg oral tablet 10 mg, By Mouth, Daily, # 30 tablet, Refills 5, Tot. Refills 5, Maintenance, 03/11/24 11:59:00 AM EDT, Route to Pharmacy Electronically, [facility]/pharmacy #[id number], Partial fill upon patient request if the prescription is for a schedule II opioid drug., 168, cm, 02/15/24 13:43:00 EDT, Height Start Date: 03/11/24 Stop Date: 09/07/24 Status: Ordered Quantity: 30.0 Unit: tablet Repeat number: 6 aspirin 81 mg oral delayed release tablet 1 tablet, By Mouth, Daily, # 90 tablet, 1 Refills, Maintenance, 01/25/24 9:53:00 PM EDT, [facility]/pharmacy #[id number], 168, cm, 01/11/24 14:42:00 EDT, Height, 93, kg, 01/28/22 14:55:00 EDT, Dry Weight Start Date: 01/25/24 Status: Ordered Quantity: 90.0 Unit: tablet Repeat number: 2 Ativan 1 mg oral tablet 1 tablet = 1 mg, By Mouth, 4 times a day, 0 Refills, Maintenance, 12/27/15 1:11:38 PM EDT Start Date: 12/27/15 Status: Ordered Repeat number: 1 Blood Pressure Monitor See Instructions, # 1 each, Refills 0, Tot. Refills 0, Maintenance, DX: HTN, 04/29/24 7:59:00 AM EDT, Supply Start Date: 04/29/24 Status: Ordered Quantity: 1.0 Unit: each Repeat number: 1 carvedilol 6.25 mg oral tablet 6.25 mg, 1, tablet, By Mouth, 2 times a day, this replaces metoprolol xl, # 60 tablet, Refills 3, Tot. Refills 3, Maintenance, 04/19/24 2:32:00 PM EDT, Route to Pharmacy Electronically, [facility]/pharmacy #[id number], Partial fill upon patient request if the prescription is for a schedule II opioid drug., 168,cm, 04/19/24 14:01:00 EDT, Height Start Date: 04/19/24 Status: Ordered Quantity: 60.0 Unit: tablet Repeat number: 4 Colace sodium 100 mg oral capsule 100 mg, 1, capsule, By Mouth, 2 times a day, PRN, # 28 capsule, Refills 0, Tot. Refills 0, Maintenance, for constipation, 02/29/24 11:18:00 AM EDT, Route to Pharmacy Electronically, [facility]/pharmacy #[id number], Partial fill upon patient request if the prescription is for a schedule II opioid drug., 168, cm, 02/15/24 13:43:00 EDT, Height Start Date: 02/29/24 Stop Date: 03/14/24 Status: Ordered Quantity: 28.0 Unit: capsule Repeat number: 1 Daily Simone oral tablet 1 tablet, By Mouth, Daily, # 90 tablet, 1 Refills, Maintenance, 03/17/24 9:34:00 AM EDT, [id number], 90, 1 tablet By Mouth Daily, 168, cm, 03/17/24 9:26:00 EDT, Height Start Date: 03/17/24 Status: Ordered Quantity: 90.0 Unit: tablet Repeat number: 2 dapagliflozin 10 mg oral tablet 1 tablet = 10 mg, By Mouth, Daily, # 30 tablet, 0 Refills, Maintenance, 01/11/24 2:46:00 PM EDT, Tablet, [id number], Partial fill upon patient request if the prescription is for a schedule II opioid drug., 168, cm, 01/11/24 14:42:00 EDT, Height, 93, kg, 01/28/22 14:55:00 EDT, Dry Weight Start Date: 01/11/24 Status: Ordered Quantity: 30.0 Unit: tablet Repeat number: 1 Flonase Allergy Relief 50 mcg/inh nasal spray See Instructions, 1 sprays Daily in each nostril, # 16 Gm, 0 Refills, Maintenance, 02/15/24 1:39:00 PM EDT, [facility]/pharmacy #[id number], Partial fill upon patient request if the prescription is for a schedule II opioid drug., 168, cm, 02/03/24 10:41:00 EDT, Height Start Date: 02/15/24 Status: Ordered Quantity: 16.0 Unit: g Repeat number: 1 Indication: Acute sinusitis, unspecified folic acid 1 mg oral tablet 1, tablet, By Mouth, Daily, # 90 tablet, Refills 1, Tot. Refills 1, Maintenance, 02/17/24 7:23:00 AMEDT, Route to Pharmacy Electronically, [facility]/pharmacy #[id number], 168, cm, 02/15/24 13:43:00 EDT, Height Start Date: 02/17/24 Status: Ordered Quantity: 90.0 Unit: tablet Repeat number: 2 Freestyle Lite Lancets See Instructions, # 300 each, Maintenance, Check blood sugars three times a day DM Type 2 E11.9, 01/11/24 2:33:00 PM EDT, Supply, 168, cm, 01/11/24 14:20:00 EDT, Height, 93, kg, 01/28/22 14:55:00 EDT, Dry Weight Start Date: 01/11/24 Status: Ordered Quantity: 300.0 Unit: each Repeat number: 1 FREESTYLE LITE TEST STRIP FREESTYLE LITE TEST STRIP, See Instructions, # 200 Unknown, 2 Refills, Maintenance, CHECK BLOOD SUGARS THREE TIMES A DAY DM TYPE 2 E11.9, 03/21/24 7:47:00 PM EDT, 168, cm, 03/17/24 9:46:00 EDT, Height Start Date: 03/21/24 Status: Ordered Quantity: 200.0 Unit: Unknown Repeat number: 1 Freestyle Lite Test Strips See Instructions, # 300 each, Refills 0, Tot. Refills 0, Maintenance, Check blood sugars three times a day DM Type 2 E11.9, 01/11/24 2:33:00 PM EDT, Compound, 168, cm, 01/11/24 14:20:00 EDT, Height, 93, kg, 01/28/22 14:55:00 EDT, Dry Weight Start Date: 01/11/24 Status: Ordered Quantity: 300.0 Unit: each Repeat number: 1 LaMICtal 100 mg oral tablet 100 mg, 1, tablet, By Mouth, 2 times a day, # 60 tablet, Refills 3, Tot. Refills 3, Maintenance, 01/21/19 11:25:36 AM EDT, Route to Pharmacy Electronically, [facility]/pharmacy #[id number] Start Date: 01/21/19 Stop Date: 05/21/19 Status: Ordered Quantity: 60.0 Unit: tablet Repeat number: 4 lisinopril 10 mg oral tablet 10 mg, 1, tablet, By Mouth, Daily, # 90 tablet, Refills 0, Tot. Refills 0, Maintenance, 04/19/24 9:02:00 AM EDT, Route to Pharmacy Electronically, [facility]/pharmacy #[id number], 168, cm, 04/15/24 10:23:00 EDT, Height Start Date: 04/19/24 Status: Ordered Quantity: 90.0 Unit: tablet Repeat number: 1 methylphenidate 5 mg oral tablet TAKE 1 TABLET BY MOUTH THREE TIMES A DAY Start Date: 01/11/24 Status: Ordered Repeat number: 1 nitroglycerin 0.4 mg sublingual tablet See Instructions, DISSOLVE 1 UNDER TONGUE EVERY 5 MINUTES NEEDED FOR CHEST PAIN CALL MD AFTER TAKING 3 TABS IN TOTAL IN A DAY, # 100 tablet, 0 Refills, Maintenance, 03/17/24 2:24:00 PM EDT, [facility]/pharmacy #[id number], 168, cm, 03/17/24 9:46:00 EDT, Height Start Date: 03/17/24 Status: Ordered Quantity: 100.0 Unit: tablet Repeat number: 1 nitroglycerin 0.4 mg sublingual tablet See Instructions, DISSOLVE 1 UNDER TONGUE EVERY 5 MINUTES NEEDED FOR CHEST PAIN CALL MD AFTER TAKING 3 TABS IN TOTAL IN A DAY, # 100 tablet, 0 Refills, Maintenance, 10/03/22 3:53:00 PM EDT, [facility]/pharmacy #[id number], 175, cm, 09/17/22 13:59:00 EDT, Height, 93, kg, 01/28/22 14:55:00 EDT, Dry Weight Start Date: 10/03/22 Status: Ordered Quantity: 100.0 Unit: tablet Repeat number: 1 NovoLOG FlexPen 100 units/mL injectable solution See Instructions, INJECT 0-18 UNITS SUBCUTANEOUSLY WITH MEALS FOR SLIDING SCALES, # 15 Unknown, 2 Refills, 01/12/24 2:36:00 PM EDT, [facility]/pharmacy #[id number], MAX DAILY DOSE 54 UNITS, 168, cm, 01/11/24 14:42:00 EDT, Height, 93, kg, 01/28/22 14:55:00 EDT, Dry Weight Start Date: 01/12/24 Status: Ordered Quantity: 15.0 Unit: Unknown Repeat number: 3 oxymetazoline 0.05% nasal spray 2 sprays, Nares, Both, 2 times a day, PRN nasal/sinus congestion, Do not use more than twice a day.Do not use for more than 3 days in a row, # 15 mL, 0 Refills, Maintenance, 02/02/24 3:28:00 PM EDT, [place], [facility]/pharmacy #[id number], Partial fill upon patient request if the prescription is for a schedule II opioid drug., 2 sprays Nares, Both 2 times a day,PRN:nasal/sinus congestion,Instr:Do not use more than twice a day. Do not use for more than 3 days in a row, 168, cm, 02/02/24 14:20:00 EDT, Height Start Date: 02/02/24 Status: Ordered Quantity: 15.0 Unit: mL Repeat number: 1 Pen [place], 31 G x 5 mm BD Ultra Fine III See Instructions, # 300 each, Refills 1, Tot. Refills 1, Maintenance, Use TID DM Type 2 on insulin E11.9, 06/05/23 2:45:00 PM EST, DM E11.9, Compound, 168, cm, 05/01/23 14:45:00 EDT, Height, 93, kg, 01/28/22 14:55:00 EDT, Dry Weight Start Date: 06/05/23 Status: Ordered Quantity: 300.0 Unit: each Repeat number: 2 rosuvastatin 20 mg oral tablet 1 tablet, By Mouth, Daily, # 90 tablet, 1 Refills, Maintenance, 05/10/24 12:39:00 PM EST, [facility]/pharmacy #[id number], rx resent 05/10/24, 168, cm, 04/19/24 14:01:00 EDT, Height Start Date: 05/10/24 Status: Ordered Quantity: 90.0 Unit: tablet Repeat number: 2 SEROquel 300 mg oral tablet 1 tablet = 300 mg, By Mouth, Daily at bedtime, # 90 tablet, 0 Refills, Maintenance, 05/01/23 3:01:00 PM EDT, Tablet, Partial fill upon patient request if the prescription is for a schedule II opioid drug. Start Date: 05/01/23 Status: Ordered Quantity: 90.0 Unit: tablet Repeat number: 1 Vitamin D3 2000 intl units oral capsule 1 capsule, By Mouth, Daily, # 90 capsule, 0 Refills, Maintenance, 05/23/24 9:50:00 AM EST, [id number], 168, cm, 04/19/24 14:01:00 EDT, Height Start Date: 05/23/24 Status: Ordered Quantity: 90.0 Unit: capsule Repeat number: 1 Problem List Condition Confirmation Course Effective Dates Status Health Status Informant Bipolar disorder Confirmed Active Cervical spondylosis Confirmed Active Chronic back pain DJD Confirmed Active Glomerulonephritis,ulloa ngial proliferative/fibrillar y 1, 2 Confirmed Active CKD (chronic kidney disease) stage 4, GFR 15-29 ml/min Confirmed Active ASHD; ND 2012/stent circumflex vessel cath;abdelrahman 2018 3 Confirmed [...] 524 weeks therapy with sofosbuvir/weight based ribavirin 55262 inferolateral stent bare metal circumflex 7DR Molddoverno [...] at age: 63; entered on: 07/20/20 Sex Sex Representation Male (finding) Patient Care team information Care Team Personnel Name: Jeffrey Mccoy MD Position: [facility] Renal MD Member Role: Lifetime Consulting Physician Address: [address] [place] [address] [address] [facility] [place] [address]- Telecom: Name: Kelly Butler NP Position: [facility] PCO Associate Professional Member Role: PCP Address: [address] [place] [id number]- Telecom: Name: Kristin Mckenzie Position: [facility] Outreach Member Role: Lifetime Consulting Physician Name: Fortunato Sin RN Position: [facility] RN Member Role: Primary Care Nurse Name: Nury Watts RN Position: [facility] RN Member Role: Primary Care Nurse Name: Riky Mena NP Position: [facility] Associate Professional Member Role: Lifetime Consulting Provider Address: [address] [place], [place] [address] [place] [address]- Telecom: Name: Prieto Tobin RN Position: S RN Member Role: Primary Care Nurse Name: Ashleigh Reynoso RN Position: S RN Member Role: Primary Care Nurse Name: Jonn Hui DO Position: [facility] Renal MD Member Role: Lifetime Consulting Physician Address: [address] [place], [place] [address] [address] Telecom: Name: Luis Angel Stephen RN Position: S RN Member Role: Primary Care Nurse Name: Brandan Nogueira RN Position: S RN Member Role: Primary Care Nurse Care Team Related Persons Name: CARLOS A BORDEN Name: LEVI BORDEN Insurance Providers Guarantor name: BRITATNY BORDEN Health Plan Information #: 1 Payer: MEDICARE PART B OUTPT Member Number: NA Policy Number: NA Group Number: NA Health Plan Information #: 2 Payer: [facility] [address] Member Number: NA Policy Number: NA Group Number: NA
--- OUTSIDE RECORDS SUMMARY | 2024-06-01 11:53 | XMS_ITS | Continuity of Care Document ---
Author Organization [facility] Shawn Lazaro lt Address [address] [place] [address]- Care Team Providers Care Application Project Leader Name Role Phone Kelly Butler NP Primary Care Physician Encounter [facility] Date(s): 05/01/23 - 05/08/23 [facility] Adult [address] [place] [address]- Encounter Diagnosis Medicare annual wellness visit, subsequent(Discharge Diagnosis) - 05/01/23 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) - 05/01/23 ASHD; DC 2012/stent circumflex vessel cath;abdelrahman 2019(Discharge Diagnosis) - 05/01/23 CKD (chronic kidney disease) stage 4, GFR 15-29 ml/min(Discharge Diagnosis) - 05/01/23 Glaucoma of both eyes(Discharge Diagnosis) - 05/01/23 History of alcoholism(Discharge Diagnosis) - 05/01/23 Hypertension(Discharge Diagnosis) - 05/01/23 Hyperlipidemia(Discharge Diagnosis) - 05/01/23 Low serum vitamin D(Discharge Diagnosis) - 05/01/23 Obese class I(Discharge Diagnosis) - 05/01/23 Tubular adenoma of colon colonoscopy (Discharge Diagnosis) - 05/01/23 Multiple lung nodules LDCT (Discharge Diagnosis) - 05/01/23 Persistent proteinuria- SEEING NEPHROLOGY(Discharge Diagnosis) - 05/01/23 Bipolar disorder(Discharge Diagnosis) - 05/04/23 Chronic back pain DJD(Discharge Diagnosis) - 05/04/23 Attending Physician: Kelly Butler NP Allergies, Adverse Reactions, Alerts Substance Reaction Severity Status Bee Stings Active Immunizations Given and Recorded Vaccine Date Status Refusal Reason pneumococcal 20-valent conjugate vaccine 1 05/01/23 Given [...] 02/03/23 Recorded zoster vaccine, inactivated 08/09/19 Recorded [id number] 12y+ bivalent booster vax 05/17/22 Recorded SARS-CoV-2 (COVID-19) mRNA-1273 vaccine 10/10/21 R ecorded SARS-CoV-2 (COVID-19) mRNA BNT-162b2 vac 04/29/21 Recorded SARS-CoV-2 (COVID-19) mRNA BNT-162b2 vac 10/10/20 Recorded SARS-CoV-2 (COVID-19) mRNA BNT-162b2 vac 09/19/20 Recorded Influenza Virus Vaccine (oldterm) 03/05/20 Recorde d pneumococcal 23-valent vaccine 08/09/19 Recorded pneumococcal 23-valent vaccine 04/16/10 Given tetanus/diphtheria/pertussis, acel(Tdap) 07/28/11 Given hepatitis B adult vaccine 3 01/07/11 Given hepatitis B adult vaccine 4 12/10/10 Given 1Result Comment: [id number] 2Result Comment: [id number] 3Admin Note: pt waited 10 mins post inj no adverse reaction noted.j a 4Admin Note: PT WAITED 10 MIN WITH NO ADVERSE REACTION. Medications aspirin 81 mg oral delayed release tablet 1 tablet, By Mouth, Daily, # 90 tablet, 1 Refills, Maintenance, 12/30/22 14:35:00 EDT, [facility]/pharmacy#[id number], 175, cm, 10/09/22 16:51:00 EDT, Height, 93, [...] Refills, Maintenance, 01/07/23 21:36:00 EDT, [id number], 90, TAKE 1 TABLET BY MOUTH EVERY [...] Daily, # 90 capsule, 0 Refills, Maintenance, 03/31/23 14:24:00 EDT, [facility]/pharmacy #[id number], 175, cm, 10/09/22 16:51:00 EDT, Height, 93, kg, 01/28/22 14:55:00 EDT, Dry Weight Start Date: 03/31/23 Status: Ordered folic acid 1 mg oral tablet 1, tablet, By Mouth, Daily, # 90 tablet, Refills 1, Tot. Refills 1, Maintenance, 01/08/23 13:00:00 EDT, Route to Pharmacy Electronically, [facility]/pharmacy #[id number], 175, cm, 10/09/22 16:51:00 EDT, Height, 93, kg, 01/28/22 14:55:00 EDT, Dry Weight Start Date: 01/08/23 Status: Ordered Freestyle Lite Lancets See Instructions, [...] 3 times a day DX: DM E11.9, 01/08/23 13:00:00 EDT, NEEDS TO TEST 3 TIMES A DAY FOR INSULIN; ok to fill early if needed, Compound, 175, cm, 10/09/22 16:51:00 EDT, Height... Start Date: 01/08/23 Status: Ordered LaMICtal 100 mg oral tablet 100 mg, 1, tablet, By Mouth, 2 times a day, # 60 tablet, Refills 3, Tot. Refills 3, Maintenance, 01/21/19 11:25:36 EDT, Route to Pharmacy Electronically, [id number], [facility]/pharmacy #[id number] Start Date: 01/21/19 Stop Date: 05/21/19 Status: Ordered lamotrigine 100 mg oral tablet Refills 0, Maintenance, 05/01/23 15:28:00 EDT, Partial fill upon patient request if the prescription is for a schedule II opioid drug. Start Date: 05/01/23 Status: Ordered lisinopril 40 mg oral tablet 1 tablet, By Mouth, Daily, # 90 tablet, 0 Refills, Maintenance, 04/21/23 10:51:00 EDT, [facility] ST[facility], 175, cm, 10/09/22 16:51:00 EDT, Height, 93, kg, 01/28/22 14:55:00 EDT, Dry Weight Start Date: 04/21/23 Status: Ordered methylphenidate 5 mg oral tablet 10 mg, 2, tablet, By Mouth, Daily, Refills 0, Tot. Refills 0, Maintenance, 05/01/23 14:57:00 EDT, Partial fill upon patient request if the prescription is for a schedule II opioid drug. Start Date: 05/01/23 Status: Ordered methylphenidate 5 mg oral tablet TAKE 1 TABLET BY MOUTH EVERY MORNING FOR 5 DAYS THEN INCREASE TO 1 TABLET BY MOUTH TWICE A DAY Start Date: 05/01/23 Status: Ordered Metoprolol Tartrate 50 mg oral tablet 1.5 tablet, By Mouth, 2 times a day, # 270 tablet, 1 Refills, Maintenance, 02/20/23 7:15:00 EDT, [facility], 175, cm, 10/09/22 16:51:00 EDT, Height, 93, kg, 01/28/22 14:55:00 EDT, Dry Weight Start Date: 02/20/23 Status: Ordered nicotine 14 mg/24 hr transdermal film, extended release APPLY PATCH TOPICALLY DAILY Start Date: 05/01/23 Status: Ordered nitroglycerin 0.4 mg sublingual tablet [...] 15 Unknown, 2 Refills, 11/07/22 0:09:00 EDT, [facility]/pharmacy #[id number], 175, cm, 10/09/22 16:51:00 EDT, Height, 93, kg, 01/28/22 14:55:00 EDT, Dry Weight Start Date: 11/07/22 Status: Ordered Pen [place], 31 G x 5 mm BD Ultra Fine III See Instructions, # 150 each, Refills 11, Tot. Refills 11, Maintenance, Test blood sugar 5 times daily, 08/20/21 16:50:00 EST, DM E11.9, Compound, 175.2, cm, 07/31/21 11:20:00 EST, Height, 88.3, kg, 03/12/21 9:16:00 EDT, Dry Weight Start Date: 08/20/21 Status: Ordered pregabalin 25 mg oral capsule 1 capsule = 25 mg, By Mouth, Daily, for 30 days, # 30 capsule, 0 Refills, Acute 06/06/23 20:13:00 EST, 05/07/23 20:13:00 EDT, Capsule, [id number], Partial fill upon patient request if the prescription is for a schedule II opioid drug., 168, cm... Start Date: 05/07/23 Stop Date: 06/06/23 Status: Ordered rosuvastatin 20 mg oral tablet 1 tablet, By Mouth, Daily, # 90 tablet, 1 Refills, Maintenance, 03/29/23 14:43:00 EDT, [facility], 175, cm, 10/09/22 16:51:00 EDT, Height, 93, kg, 01/28/22 14:55:00 EDT, Dry Weight Start Date: 03/29/23 Status: Ordered SEROquel 300 mg oral tablet 1 tablet = 300 mg, By Mouth, Daily at bedtime, # 90 tablet, 0 Refills, Maintenance, 05/01/23 15:01:00 EDT, Tablet, Partial fill upon patient request if the prescription is for a schedule II opioid drug. Start Date: 05/01/23 Status: Ordered Vitamin D3 2000 intl units [...] 4, GFR 15-29 ml/min Confirmed Active ASHD; [place] 2012/stent circumflex vessel cath;abdelrahman 2018 3 Confirmed Active Epididymal cyst rt Confirmed 04/18/19 Active Low serum vitamin D Confirmed Active Insulin long-term use Confirmed Active Ex-cigarette smoker Confirmed Active Fibrillary glomerulonephritis 4 Confirmed Active GERD with esophagitis egd 2018 Confirmed Active Gingivitis Confirmed Active Glaucoma of both eyes Confirmed Active History of alcoholism Confirmed Active History of nephrotic syndrome Confirmed Active Hepatitis C S/P sofosbuvir/weight based ribavirin in 2015 5 Confirmed Active Encounter for long-term (current) drug use lamictal Confirmed Active History of acute myocardial infarction of inferior wall 2012/stent 6 Confirmed Active Hyperlipidemia Confirmed Active Hypertension Confirmed Active LVH (left ventricular hypertrophy) echo Confirmed 12/04/16 Active Low back pain Confirmed Active Lumbar spondylosis 7 Confirmed Active Multiple lung nodules LDCT Confirmed Active Obese class I Confirmed Active Lower extremity pain Confirmed Active [...] mild to moderate. 3MI 2012 circumflex stent 2013/[place] 4secondary to hep C 524 weeks therapy with sofosbuvir/weight based ribavirin 83660 inferolateral stent bare metal circumflex 7DR Molddoverno sx;Dr Schwartz 8hyperplatic polyp repeat screening in 2025 9repeat colonoscopy in 5 years Diagnosis Diagnosis Type Effective Dates Health Status Clinical Service Informant Medicare annual wellness visit, subsequent Discharge Diagnosis 05/01/23 Type 2 diabetes mellitus with diabetic nephropathy Discharge Diagnosis 05/01/23 ASHD; [place] 2012/stent circumflex vessel cath;abdelrahman 2018 Discharge Diagnosis 05/01/23 CKD (chronic kidney disease) stage 4, GFR 15-29 ml/min Discharge Diagnosis 05/01/23 Glaucoma of both eyes Discharge Diagnosis 05/01/23 History of alcoholism Discharge Diagnosis 05/01/23 Hypertension Discharge Diagnosis 05/01/23 Hyperlipidemia Discharge Diagnosis 05/01/23 Low serum vitamin D Discharge Diagnosis 05/01/23 Obese class I Discharge Diagnosis 05/01/23 Tubular adenoma of colon colonoscopy Discharge Diagnosis 05/01/23 Multiple lung nodules LDCT Discharge Diagnosis 05/01/23 Persistent proteinuria- SEEING NEPHROLOGY Discharge Diagnosis 05/01/23 Bipolar disorder Discharge Diagnosis 05/04/23 Chronic back pain DJD Discharge Diagnosis 05/04/23 Vital Signs Most recent to oldest [Reference Range]: 1 Height 168.0 cm (10/27/23 2:45 PM) Weight 90.7 kg (05/01/23 2:45 PM) Oxygen Saturation [94-100 %] 98 % (05/01/23 2:45 PM) Pulse Rate [55-90 bpm] 52 bpm *L* (05/01/23 2:45 PM) Body Mass Index [18.5-24.99 kg/m2] 32.14 kg/m2 *>HHI* (05/01/23 2:45 PM) Blood Pressure [90-138/55-84 mm Hg] 128/ 55mm Hg (05/01/23 2:45 PM) Temperature [96.8-100.4 DegF] 97.7 DegF (05/01/23 2:45 PM) Mode of Delivery (Oxygen) Room air (05/01/23 2:45 PM) Blood pressure sites Arm, left (05/01/23 2:45 PM) Temperature Route Oral (05/01/23 2:45 PM) Weight Obtained Via Standing scale (05/01/23 2:45 PM) Social History Social History Type Response [...] MD Position: [facility] Renal MD Member Role: Lifetime Consulting Physician Address: Address: [address] [place] [address] [facility] [place], [place] [address] Name: Kelly Butler NP Position: [facility] PCO Associate Professional Member Role: PCP Address: Address: [address] [place] [id number]- Name: Kristin Mckenzie Position: [facility] Outreach Member Role: Lifetime Consulting Physician Name: Prieto Tobin RN Position: [facility] RN Member Role: Primary Care Nurse Name: Jonn Hui DO Position: [facility] Renal MD Member Role: Lifetime Consulting Physician Address: Address: [address] [place], [place] [address]E [facility] [place], [place] [address] Name: Zafar CALVO, Luis Angel S Position: [facility] RN Member Role: Primary Care Nurse Care Team Related Persons Name: CARLOS A BORDEN Address: home [address] [place] [address] UM Name: LEVI BORDEN Address: home [address] [place] [address]
--- OUTSIDE RECORDS SUMMARY | 2024-06-01 11:53 | XMS_ITS | Continuity of Care Document ---
Author Organization [facility] ter Address [address] [place] [address]- Care Team Providers Care Clay Thrower Name Role Phone Carrie NICOLE, Kelly Lopez Primary Care Physician Encounter [facility] Date(s): 03/29/22 - 05/14/[address] [address] Attending Physician: Ben Viera MD Admitting Physician: [...] Date: 01/18/22 Stop Date: 07/17/22 Status: Ordered Daily Simone oral tablet 1 tablet, By Mouth, Daily, # 30 tablet, 5 Refills, Maintenance, 02/11/22 11:48:00 EDT, [facility], [id number], 1 tablet By Mouth Daily,x30 days, 175, cm, 01/29/22 15:12:00 EDT, Height, 93, kg, 01/28/22 14:55:00 EDT, Dry Weight Start Date: 02/11/22 Stop Date: 08/10/22 Status: Ordered docusate sodium 100 mg oral capsule 1 capsule, By Mouth, 2 times a day, PRN NEEDED FOR CONSTIPATION, # 60 capsule, 5 Refills, Maintenance, 06/05/21 15:57:00 EST, [facility]/pharmacy #[id number], 175.2, cm, 05/27/21 11:26:00 EST, Height, 88.3, kg, 03/12/21 9:16:00 EDT, Dry Weight Start Date: 06/05/21 Status: Ordered folic acid 1 mg oral tablet 1, tablet, By Mouth, Daily, # 30 tablet, Refills 5, Tot. Refills 5, Maintenance, 04/01/22 21:30:00 EDT, Route to Pharmacy Electronically, [facility]/pharmacy #[id number], 175, cm, 02/14/22 10:10:00 EDT, Height, [...] 01/21/19 11:25:36 EDT, Route to Pharmacy Electronically, [id number], [facility]/pharmacy #[id number] Start Date: 01/21/19 Stop Date: 05/21/19 Status: Ordered lisinopril 40 mg oral tablet 1 tablet, By Mouth, Daily, # 90 tablet, 1 Refills, Maintenance, 05/07/22 14:29:00 EDT, [facility] STORE 95[facility], 175, cm, 04/08/22 8:34:00 EDT, Height, 93, kg, 01/28/22 14:55:00 EDT, Dry Weight Start Date: 05/07/22 Status: Ordered Metoprolol Tartrate 50 mg oral tablet 1.5 tablet, By Mouth, 2 times a day, # 270 tablet, 0 Refills, 03/16/22 12:48:00 EDT, [facility]/pharmacy #[id number], 175, cm, 02/14/22 10:10:00 EDT, Height, 93, kg, 01/28/22 14:55:00 EDT, Dry Weight Start Date: 03/16/22 Status: Ordered nicotine 14 mg/24 hr transdermal film, extended release 1 patch, Topically, Daily, for 30 days, # 30 patch, 1 Refills, Acute 06/27/22 15:44:00 EST, 04/28/22 15:44:00 EDT, Patch, [facility]/pharmacy #[id number], 1 patch Topically Daily,x30 days, 175, [...] tablet, 0 Refills, Maintenance, 12/31/21 17:21:00 EDT, [facility]/pharmacy #[id number], 175.2, cm, 12/18/21 14:10:00 EDT, Height... Start Date: 12/31/21 Status: Ordered NovoLOG FlexPen 100 units/mL injectable solution See Instructions, INJECT 0-18 UNITS SUBCUTANEOUSLY WITH MEALS FOR SLIDING SCALES, # 15 Unknown, 2 Refills, [facility] STORE 83438, 175.2, cm, 05/27/21 11:26:00 EST, Height, 88.3, kg, 03/12/21 9:16:00 EDT, Dry Weight Start Date: 06/04/21 Status: Ordered Pen [place], 31 G x 5 mm BD Ultra [...] 5 Refills, Maintenance, 04/08/22 9:12:00 EDT, Capsule, [facility]/pharmacy #[id number], 175, cm, 04/08/22 8:34:00 EDT, Height, 93, kg, 01/28/22 14:55:00 EDT, Dry Weight Start Date: 04/08/22 Status: Ordered rosuvastatin 20 mg oral tablet 1 tablet, By Mouth, Daily, # 90 tablet, 1 Refills, [facility] 9[facility]26, 175, cm, 01/29/22 15:12:00 EDT,Height, 93, kg, 01/28/22 14:55:00 EDT, Dry Weight Start Date: 01/30/22 Status: Ordered SEROquel 100 mg oral tablet 100 mg, 1, tablet, By Mouth, 2 times a day, PRN, # 1 tablet, Refills 2, Tot. Refills 2, Maintenance, Anxiety, 09/21/19 10:41:00 EDT, Route to Pharmacy Electronically, [facility]/pharmacy #[id number], 172, cm, 09/05/19 16:17:00 EST, Height, [...] 3 Refills, Maintenance, 04/08/22 9:09:00 EDT, Suspension, [facility]/pharmacy #[id number], 1 drops Eyes, Both 2 times [...] Mouth, Daily, # 30 capsule, 5 Refills, [facility], 175.2, cm, 11/15/21 11:18:00 EDT, Height, 88.3, kg, 03/12/21 9:16:00 EDT, Dry Weight Start Date: 11/17/21 Status: Ordered Problem List Condition Confirmation Course Effective Dates Status Health Status Informant Bipolar disorder Confirmed Active Cervical spondylosis Confirmed Active Chronic back pain DJD Confirmed Active Glomerulonephritis,ulloa ngial proliferative/fibrillar y 1, 2 Confirmed Active Chronic renal failure, stage 4 (severe) Confirmed Active ASHD; [place] 2012/stent circumflex vessel cath;abdelrahman 2018 3 Confirmed [...] mild to moderate. 3MI 2012 circumflex stent 2013/[place] 4secondary to hep C 524 weeks therapy with sofosbuvir/weight based ribavirin 12935 inferolateral stent bare metal circumflex 7DR Molddoverno [...] Team Personnel Name: Jeffrey Mccoy MD Position: [facility] Renal MD Member Role: Lifetime Consulting Physician Address: Address: [address] [place] [address] [facility] [place] [address]- Name: Kelly Butler NP Position: [facility] PCO Associate Professional Member Role: PCP Address: Address: [address] [place] [address]- Name: Kristin Mckenzie Position: [facility] Outreach Member Role: Lifetime Consulting Physician Name: Prieto Tobin RN Position: S RN Member Role: Primary Care Nurse Name: Jonn Hui DO Position: [facility] Renal MD Member Role: Lifetime Consulting Physician Address: Address: [address] [place] [address] [address] [facility] [place], [place] [address] Name: Zafar CALVO, Luis Angel Rojas Position: S RN Member Role: Primary Care Nurse Name: Tamie Baird RN Position: [facility] RN Member Role: Primary Care Nurse Care Team Related Persons Name: CARLOS A BORDEN Address: [address] [place] [address] Name: LEVI BORDEN Address: [address] [place] [address]
--- OUTSIDE RECORDS SUMMARY | 2024-06-01 11:53 | XMS_ITS | Continuity of Care Document ---
Author Organization [facility] Shawn Lazaro lt Address [address] [place] [address]- Care Team Providers Care Rod Greaser Name Role Phone Carrie Kelly RIVERA Primary Care Physician [facility]counter [facility] Date(s): 03/30/24 - 04/29/24 [facility] [place] Adult [address] [place] [address]- Allergies, Adverse Reactions, Alerts Substance Reaction Severity [...] virus vaccine, inactivated 04/16/10 Give n SARS-CoV-2(COVID-19)mRNA-LNP vac([id number]) 12/31/23 Recorded SARS-CoV-2(COVID-19)mRNA-LNP vac([id number]) 05/08/23 Recorded tetanus/diphtheria/pertussis, acel(Tdap) 10/15/23 Recorded tetanus/diphtheria/pertussis, acel(Tdap) 07/28/11 Given pneumococcal 20-valent conjugate vaccine 3 05/01/23 Given zoster vaccine, inactivated 02/03/23 Recorded zoster vaccine, inactivated 08/09/19 Recorded [id number] 12y+ bivalent booster vax 05/17/22 Recorded SARS-CoV-2 [...] 12/10/10 Given 1Result [facility]: [id number] 3Result Comment: [id number] 4Admin Note: pt waited 10 mins post inj no adverse reaction noted.j a 5Admin Note: PT WAITED 10 MIN WITH NO ADVERSE REACTION. Medications albuterol 90 mcg/inh inhalation powder 1 puffs, Inhalation, Every 6 hours, PRN Wheezing/Shortness of Breath, # 1 each, 0 Refills, Maintenance, 02/15/24 13:38:00 EDT, Powder, [facility]/pharmacy #[id number], Partial fill upon patient request if the prescription is for a schedule II opioid drug., 1 puffs... Start Date: 02/15/24 Status: Ordered amLODIPine 10 mg oral tablet 10 mg, By Mouth, Daily, # 30 tablet, Refills 5, Tot. Refills 5, Maintenance, 03/11/24 11:59:00 EDT,Route to Pharmacy Electronically, [facility]/pharmacy #[id number], Partial fill upon patient request if the prescription is for a schedule II opioid drug., 168, cm,... Start Date: 03/11/24 Stop Date: 09/07/24 Status: Ordered aspirin 81 mg oral delayed release tablet 1 tablet, By Mouth, Daily, # 90 tablet, 1 Refills, Maintenance, 01/25/24 21:53:00 EDT, [facility]/pharmacy#[id number], 168, cm, 01/11/24 14:42:00 EDT, Height, 93, kg, 01/28/22 14:55:00 EDT, Dry Weight Start Date: 01/25/24 Status: Ordered Ativan 1 mg oral tablet 1 tablet = 1 mg, By Mouth, 4 times a day, 0 Refills, Maintenance, 12/27/15 13:11:38 EDT Start Date: 12/27/15 Status: Ordered Blood Pressure Monitor See Instructions, # 1 each, Refills 0, Tot. Refills 0, Maintenance, DX: HTN, 04/29/24 7:59:00 EDT, Supply Start Date: 04/29/24 Status: Ordered carvedilol 6.25 mg oral tablet [...] 0 Refills, Maintenance, 01/11/24 14:46:00 EDT, Tablet, [facility]/pharmacy #[id number], Partial fill upon patient request if the prescription is for a schedule II opioid drug., 168, cm, 01/11/24 14:42:00 EDT, Height,... Start Date: 01/11/24 Status: Ordered Flonase Allergy Relief 50 mcg/inh nasal spray See Instructions, 1 sprays Daily in each nostril, # 16 Gm, 0 Refills, Maintenance, 02/15/24 13:39:00 EDT, [facility]/pharmacy #[id number], Partial fill upon patient request if the prescription is for a schedule II opioid drug., 168, cm, 02/03/24 10:41:00 EDT, Height Start Date: 02/15/24 Status: Ordered folic acid 1 mg oral tablet 1, tablet, By Mouth, Daily, # 90 tablet, Refills 1, Tot. Refills 1, Maintenance, 02/17/24 7:23:00 EDT, Route to Pharmacy Electronically, [facility]/pharmacy #[id number], 168, cm, 02/15/24 13:43:00 EDT, [...] 01/21/19 11:25:36 EDT, Route to Pharmacy Electronically, [id number], [facility]/pharmacy #[id number] Start Date: 01/21/19 Stop Date: 05/21/19 Status: Ordered lisinopril 10 mg oral tablet 10 mg, 1, tablet, By Mouth, Daily, # 90 tablet, Refills 0, Tot. Refills 0, Maintenance, 04/19/24 9:02:00 EDT, [id number] 168, cm, 04/15/24 10:23:00 EDT, Height [...] tablet, 0 Refills, Maintenance, 03/17/24 14:24:00 EDT, [facility]/pharmacy #[id number], 168, cm, 03/17/24 9:46:00 EDT, Height Start Date: 03/17/24 Status: Ordered nitroglycerin 0.4 mg sublingual tablet See Instructions, DISSOLVE 1 UNDER TONGUE EVERY 5 MINUTES NEEDED FOR CHEST PAIN CALL MD AFTER TAKING 3 TABS IN TOTAL IN A DAY, # 100 tablet, 0 Refills, Maintenance, 10/03/22 15:53:00 EDT, [facility]/pharmacy #[id number], 175, cm, 09/17/22 13:59:00 EDT, [...] mL, 0 Refills, Maintenance, 02/02/24 15:28:00 EDT, [place], [facility]/pharmacy #[id number], Partial fill upon patient... Start Date: 02/02/24 Status: Ordered Pen [place], 31 G x 5 mm BD Ultra [...] Refills, Maintenance, 02/04/24 16:39:00 EDT, [facility], 168, cm, 02/03/24 10:41:00 EDT, Height Start [...] 4, GFR 15-29 ml/min Confirmed Active ASHD; [place] 2012/stent circumflex vessel cath;abdelrahman 2018 3 Confirmed [...] mild to moderate. 3MI 2012 circumflex stent 2012/[place] 4secondary to hep C 524 weeks therapy with sofosbuvir/weight based ribavirin 94969 inferolateral stent bare metal circumflex 7DR Seanvernmateo sx;Dr Schwartz 8hyperplatic polyp repeat screening in [...] Team Personnel Name: Jeffrey Mccoy MD Position: S Renal MD Member Role: Lifetime Consulting Physician Address: Address: [address] [place] [address] [address] [facility] [place] [address]- Name: Kelly Butler NP Position: [facility] PCO Associate Professional Member Role: PCP Address: Address: [address] [place] [address]- [place] Name: Kristin Mckenzie Position: [facility] Outreach Member Role: Lifetime Consulting Physician Name: Fortunato Sin RN Position: [facility] RN Member Role: Primary Care Nurse Name: Nury Watts RN Position: [facility] RN Member Role: Primary Care Nurse Name: Antonia Mena NP Position: [facility] Associate Professional Member Role: Lifetime Consulting Provider Address: Address: [address] [facility] [address] [facility] [place] [address]- Name: Prieto Tobin RN Position: [facility] RN Member Role: Primary Care Nurse Name: Ashleigh Reynoso RN Position: [facility] RN Member Role: Primary Care Nurse Name: Jonn Hui DO Position: [facility] Renal MD Member Role: Lifetime Consulting Physician Address: Address: [address] [facility] [address] [facility] [place] [place] - Name: Luis Angel Stephen RN Position: [facility] RN Member Role: Primary Care Nurse Name: Brandan Nogueira RN Position: [facility] RN Member Role: Primary Care Nurse Care Team Related Persons Name: CARLOS A BORDEN Address: [address] [place] [address] Name: LEVI BORDEN Address: home [address] [place] [address]
--- OUTSIDE RECORDS SUMMARY | 2024-06-01 11:53 | XMS_ITS | Continuity of Care Document ---
Author Organization [facility] Address [address] [place] [address]- Care Team Providers Care School Transportation Director Name Role Phone Aylin HICKMAN, Ben Willis Primary Care Physician [facility]): [facility]21 - 01/31/21 [facility] [address] [place], [place] [address] Attending Physician: AdmRadha kate Admitting Physician: Admtr, Radha Referring Physician: Admtr, Ar8 Allergies, Adverse Reactions, Alerts Substance Reaction Severity Status Bee Stings Active Immunizations Given and Recorded Vaccine Date Status Refusal Reason SARS-CoV-2 (COVID-19) mRNA BNT-162b2 vac 10/10/20 Recorded SARS-CoV-2 (COVID-19) mRNA BNT-162b2 vac 09/19/20 Recorded influenza virus vaccine, inactivated 03/13/20 Andrew rded influenza virus vaccine, inactivated 03/23/19 Give n influenza virus vaccine, inactivated 06/03/18 Give n influenza virus vaccine, inactivated 04/12/17 Andrew rded influenza virus vaccine, inactivated 04/16/16 Give n influenza virus vaccine, inactivated 04/16/10 Give n Influenza Virus Vaccine (oldterm) 03/05/20 Recorde d [...] MIN WITH NO ADVERSE REACTION. MH Medications albuterol CFC free 90 mcg/inh inhalation aerosol 2, puffs, Inhalation, Every 6 hours, PRN, # 9 Gm, Refills 0, Tot. Refills 0, Maintenance, 06/17/19 10:48:07 EST, Aerosol, Route to Pharmacy Electronically, [id number], [facility]/pharmacy #0843, 180, cm, 06/17/19 10:36:11 EST, Height Start Date: 06/17/19 Status: Ordered aspirin 81 mg oral delayed release tablet 1 tablet, By Mouth, Daily, # 30 tablet, 11 Refills, Maintenance, 06/26/20 12:19:00 EST, [facility], 175, cm, 06/25/20 16:11:00 EST, Height, 83.6, [...] Daily, # 90 capsule, 3 Refills, Maintenance, 01/23/21 11:08:00 EDT, CR Capsule, [facility]/pharmacy #0843, 175.3, cm, 01/21/21 12:58:00 EDT, Height, 83.6, kg, 04/23/20 17:46:00EDT, Dry Weight Start Date: 01/23/21 Stop Date: 01/18/22 Status: Ordered cholecalciferol 2000 intl units oral capsule 1 capsule = 2,000 International_Units, By Mouth, Daily, # 30 capsule, 5 Refills, Maintenance, 11/02/20 10:48:00 EDT, Capsule, [facility]/pharmacy #0843, 175, cm, 09/21/20 11:29:00 EDT, Height, 83.6, kg, 04/23/20 17:46:00 EDT, Dry Weight Start Date: 11/02/20 Status: Ordered cloNIDine 0.2 mg oral tablet 0.2 mg, 1, tablet, By Mouth, 2 times a day, # 60 tablet, Refills 5, Tot. Refills 5, Maintenance, 09/09/20 19:43:00 EST, Route to Pharmacy Electronically, [facility]/pharmacy #0843, 175, cm, 07/20/20 10:29:00 EST, Height, 83.6, kg, 04/23/20 17:46:00 EDT, Dry... Start Date: 09/09/20 Status: Ordered Daily Simone oral tablet 1 tablet, By Mouth, Daily, # 90 tablet, 3 Refills, Maintenance, 09/21/20 11:35:00 EDT, Tablet, [facility]/pharmacy #0843, Partial fill upon patient request if the prescription is for a schedule II opioid drug., 1 tablet By Mouth Daily, 175, cm, 09/21/20 11:2... Start Date: 09/21/20 Status: Ordered Daily Simone oral tablet 1 tablet, By Mouth, Daily, # 30 tablet, 5 Refills, Maintenance, 09/19/20 8:25:00 EDT, Tablet, [facility]/pharmacy #0843, 1 tablet By Mouth Daily,x30 days, 175, cm, 07/20/20 10:29:00 EST, Height, 83.6, kg, 04/23/20 17:46:00 EDT, Dry Weight Start Date: 09/19/20 Stop Date: 03/18/21 Status: Ordered docusate sodium 100 mg oral capsule 1 capsule, By Mouth, 2 times a day, PRN NEEDED FOR CONSTIPATION, # 60 capsule, 5 Refills, Maintenance, 01/22/21 12:45:00 EDT, [facility], 175.3, cm, 01/21/21 12:58:00 EDT, Height, 83.6, kg, 04/23/20 17:46:00 EDT, Dry Weight Start Date: 01/22/21 Status: Ordered folic acid 1 mg oral tablet 1, tablet, By Mouth, Daily, # 30 tablet, Refills 5, Tot. Refills 0, Maintenance, 01/18/21 14:44:00 EDT, Route to Pharmacy Electronically, [facility], 175, cm, 12/24/20 11:20:00 EDT, Height, 83.6, kg, 04/23/20 17:46:00 EDT, Dry Weight Start Date: 01/18/21 Status: Ordered Freestyle Lite Test Strips See Instructions, # 150 each, Refills 5, Tot. Refills 5, Maintenance, pt to test 3 times a day DX: DM E11.9, 08/10/20 11:37:00 EST, NEEDS TO TEST 3 TIMES A DAY FOR INSULIN; ok to fill early if needed, Compound, 175, cm, 07/20/20 10:29:00 EST, Height... Start Date: 08/10/20 Status: Ordered GaviLyte-C oral powder for reconstitution See Instructions, 1 glass every 15-30 minutes until finished, # 4,000 mL, 0 Refills, Maintenance, 01/22/21 14:26:00 EDT, [facility]/pharmacy #0843, procedure is 01/21, 1 glass every 15-30 minutes until finished, 175.3, cm, 01/21/21 12:58:00 EDT, Height, 83.6,... Start Date: 01/22/21 Status: Ordered Marian-kermit 8.6 mg oral tablet 2 tablet = 17.2 mg, By Mouth, Daily at bedtime, # 60 tablet, 5 Refills, Maintenance, 02/27/20 15:23:00 EDT, [facility]/pharmacy #0843, 172, cm, 12/14/19 8:02:00 EDT, Height, 97.8, kg, 08/11/19 5:24:00 EST, Dry Weight Start Date: 02/27/20 Status: Ordered Golytely - oral powder for reconstitution 240 mL, By Mouth, Daily, bowel instruction, # 4,000 mL, 0 Refills, Maintenance, 06/21/20 16:44:00 EST, REC Powder, [facility]/pharmacy #0843, Partial fill upon patient request if the prescription is for a schedule II opioid drug., 240 mL By Mouth Daily,Instr... Start Date: 06/21/20 Status: Ordered LaMICtal 100 mg oral tablet 100 mg, 1, tablet, By Mouth, 2 times a day, # 60 tablet, Refills 3, Tot. Refills 3, Maintenance, 01/21/19 11:25:36 EDT, Route to Pharmacy Electronically, [id number], [facility]/pharmacy #0843 Start Date: 01/21/19 Stop Date: [...] 14:26:00 EDT Start Date: 05/04/20 Status: Ordered Metoprolol Tartrate 50 mg oral tablet 1.5 tablet, By Mouth, 2 times a day, # 270 tablet, 0 Refills, Maintenance, 11/16/20 11:46:00 EDT, [facility], 175, cm, 09/21/20 11:29:00 EDT, Height, 83.6, kg, 04/23/20 17:46:00 EDT, Dry Weight Start Date: 11/16/20 Status: Ordered nicotine 2 mg oral transmucosal lozenge See Instructions, suck, up to q1 hrs 10 daily, # 162 lozenge, 1 Refills, Maintenance, 12/12/20 14:39:00 EDT, [facility]/pharmacy #0843, suck, up to q1 hrs 10 daily, 175, cm, 09/21/20 11:29:00 EDT, Height, 83.6, kg, 04/23/20 17:46:00 EDT, Dry Weight Start Date: 12/12/20 Status: Ordered nicotine 4 mg oral transmucosal lozenge 1 lozenge = 4 mg, By Mouth, Every hour, dispense 2 boxes of 81 count as directed on package labeling, # 162 lozenge, 3 Refills, Maintenance, 09/25/20 14:39:00 EDT, [facility]/pharmacy #0843, 1 lozenge By Mouth Every hour,Instr:dispense 2 boxes of 81 count;... Start Date: 09/25/20 Status: Ordered nitroglycerin 0.4 mg sublingual tablet [...] 2 Refills, Soft Stop, 06/01/20 13:51:00 EST, [facility]/pharmacy #0843, 175, cm, 05/24/20 12:46:00 EST, Height, [...] 9:13:... Start Date: 02/01/20 Status: Ordered Pen [place], 31 G x 5 mm BD Ultra Fine III See Instructions, # 150 each, Refills 11, Tot. Refills 11, Maintenance, Test blood sugar 5 times daily, 08/24/20 16:35:00 EST, DM E11.9, Compound, 175, cm, 07/20/20 10:29:00 EST, Height, 83.6, kg, 04/23/20 17:46:00 EDT, Dry Weight Start Date: 08/24/20 Status: Ordered rosuvastatin 20 mg oral tablet 1 tablet, By Mouth, Daily, # 90 tablet, 1 Refills, Maintenance, 01/08/21 14:43:00 EDT, [facility]/pharmacy#0843, 175, cm, 12/24/20 11:20:00 EDT, Height, 83.6, kg, 04/23/20 17:46:00 EDT, Dry Weight Start Date: 01/08/21 Status: Ordered senna - oral tablet 2 tablet, By Mouth, Daily at bedtime, PRN for constipation, PRN, # 60 tablet, 1 Refills, Maintenance, 09/08/17 9:54:01, Tablet Start Date: 09/08/17 Status: Ordered SEROquel 100 mg oral tablet 100 mg, 1, tablet, By Mouth, 2 times a day, # 60 tablet, Refills 2, Tot. Refills 2, Maintenance, 09/21/19 10:41:00 EDT, Route to Pharmacy Electronically, [facility]/pharmacy #0843, 172, cm, 09/05/19 16:17:00 EST, Height, [...] EST, Tablet, this was previously sent to [facility] Start Date: 05/17/19 Stop Date: 05/11/20 Status: Ordered Tresiba FlexTouch 200 units/mL subcutaneous solution = 18 units, Subcutaneous Infusion, Daily, at bedtime, increase 2 units every 3 days until FBS < 120 per PCP max dose 60 units qday, # 3 each, 1 Refills, Maintenance, 12/10/20 11:14:00 EDT, [id number], 175, cm, 09/21/20 11:29:00 EDT, Height, 83... Start Date: 12/10/20 Status: Ordered Trulicity Pen 0.75 mg/0.5 mL subcutaneous solution 0.5 mL = 0.75 mg, Subcutaneous Injection, Every week, # 2.5 mL, 11 Refills, Maintenance, 12/24/20 11:37:00 EDT, Solution, [facility], Partial fill upon patient request if the prescription is for a schedule II opioid drug., 175, cm, 12/24/20 11... Start Date: 12/24/20 Status: Ordered Problem List Condition Effective Dates Status Health Status Inform ant Acute pancreatitis(Confirmed) 07/16/16 Active Adenomatous colon polyp colo noscopy 2015(Confirmed) Active Bipolar disorder(Confirmed) Active Cervical spondylosis(Confirmed) Active Chronic back pain DJD(Confirmed) Active Glomerulonephritis,mesangial proliferative/fibrillary(Confirmed) 1, 2 Active ASHD; [place] 2012/stent circumfl ex vessel cath;abdelrahman 2018(Confirmed) 3 [...] spondylosis(Confirmed) 7 Active Multiple lung nodules LDCT 2018(Confirmed) Active Obesity(Confirmed) Active Lower extremity pain(Confirmed) Active Medicare annual wellness vis it, subsequent(Confirmed) Active Syncopal episodes(Confirmed) Active Tubular adenoma of colon col onoscopy 2015(Confirmed) 8 6/8/16 Active Type 2 diabetes mellitus wit h [...] mild to moderate. 3MI 2012 circumflex stent 2012/ 4secondary to hep C 524 weeks therapy with sofosbuvir/weight based ribavirin 85635 inferolateral stent bare metal circumflex 7DR Seanvernmateo sx;Dr Schwartz 8repeat colonoscopy in 5 years Procedures Procedure Date Related Diagnosis Body Site Status CT of thorax LDCTnodlues 1 09/10/18 Completed 13 nodules, 2 in the right lung and one on the left, each with morphology of pulmonary lymph node, measuring 4-5 mm in size. LungRad Category: 2 Benign Appearance or Behavior. Nodules with a very low likelihood of becoming a clinically active cancer due to size or lack of growth. Continue annual screening with LDCT in 12 months. Social History Social History Type Response Smoking Status Former smoker, quit more than 30 days ago; Interested in cessation: No; Other: quit; Tobacco use times per day: prio 1/2-1 ppd; Total pack years: 38; Started at age: 12; Stopped at age: 63; entered on: 07/20/20 Sex
--- OUTSIDE RECORDS SUMMARY | 2024-06-01 11:53 | XMS_ITS | Continuity of Care Document ---
Author Organization [facility] Address [address] [place], [place] [address]waldemar powers, [address] [place] [address]- Care Team Providers Care Hot Dimpling Machine Operator Name Role Phone Carrie Kelly RIVERA Primary Care Physician [facility]): 08[facility]14[facility]23 - 09/13/23 [facility] [address] [place] [address] Drive, [address] [place], [place] [address] Allergies, Adverse Reactions, Alerts Substance Reaction Severity Status Bee Stings Active Immunizations Given and Recorded Vaccine Date Status Refusal Reason SARS-CoV-2(COVID-19)mRNA-LNP vac(bax380) 05/08/23 Recorded pneumococcal 20-valent conjugate vaccine 1 05/01/23 Given [...] 02/03/23 Recorded zoster vaccine, inactivated 08/09/19 Recorded [id number] 12y+ bivalent booster vax 05/17/22 Recorded SARS-CoV-2 [...] adult vaccine 4 12/10/10 Given 1Result Comment: [id number] 2Result Comment: [id number] 3Admin Note: pt waited 10 mins post inj no adverse reaction noted.j a 4Admin Note: PT WAITED 10 MIN WITH NO ADVERSE REACTION. MH Medications aspirin 81 mg oral delayed release tablet 1 tablet, By Mouth, Daily, # 90 tablet, 1 Refills, Maintenance, 06/02/23 11:42:00 EST, [facility][id number], 168, cm, 05/01/23 14:45:00 EDT, Height, 93, kg, 01/28/22 14:55:00 EDT, Dry Weight Start Date: 06/02/23 Status: Ordered Ativan 1 mg oral tablet 1 tablet = 1 mg, By Mouth, 4 times a day, 0 Refills, Maintenance, 12/27/15 13:11:38 EDT Start Date: 12/27/15 Status: Ordered Blood Pressure Monitor See Instructions, # 1 each, Maintenance, dx: hypertension I10, 07/20/20 10:41:00 EST, Supply Start Date: 07/20/20 Status: Ordered D3 50 mcg (2000 intl units) oral capsule 1 capsule, By Mouth, Daily, # 90 capsule, 1 Refills, Maintenance, 06/30/23 7:20:00 EST, [facility], 168, cm, 05/01/23 14:45:00 EDT, Height, 93, kg, 01/28/22 14:55:00 EDT, Dry Weight Start Date: 06/30/23 Status: Ordered Daily Simone oral tablet 1 tablet, By Mouth, Daily, # 90 tablet, 1 Refills, Maintenance, 06/30/23 7:20:00 EST, [facility], 90, TAKE 1 TABLET BY MOUTH EVERY DAY, 168, cm, 05/01/23 14:45:00 EDT, Height, 93, kg, 01/28/22 14:55:00 EDT, Dry Weight Start Date: 06/30/23 Status: Ordered dapagliflozin 10 mg oral tablet [...] Daily, # 90 capsule, 0 Refills, Maintenance, 06/26/23 6:50:00 EST, [facility], 168, cm, 05/01/23 14:45:00 EDT, Height, 93, kg, 01/28/22 14:55:00 EDT, Dry Weight Start Date: 06/26/23 Status: Ordered folic acid 1 mg oral tablet 1, tablet, By Mouth, Daily, # 90 tablet, Refills 1, Tot. Refills 1, Maintenance, 07/03/23 10:01:00 EST, Route to Pharmacy Electronically, [facility]/pharmacy #[id number], 168, cm, 05/01/23 14:45:00 EDT, Height, 93, kg, 01/28/22 14:55:00 EDT, Dry Weight Start Date: 07/03/23 Status: Ordered Freestyle Lite Lancets See Instructions, # 100 each, Refills 6, Tot. Refills 6, Maintenance, to test blood sugar 3 times daily E11.9 YVETTE-lifetime, 06/02/23 14:16:00 EST, Supply, 168, cm, 05/01/23 14:45:00 EDT, Height, 93, kg, 01/28/22 14:55:00 EDT, Dry Weight Start Date: 06/02/23 Status: Ordered Freestyle Lite Test Strips See Instructions, # 150 each, Refills 5, Tot. Refills 5, Maintenance, pt to test 3 times a day DX: DM E11.9, 06/02/23 14:16:00 EST, NEEDS TO TEST 3 TIMES A DAY FOR INSULIN; ok to fill early if needed, Compound, 168, cm, 05/01/23 14:45:00 EDT, Height... Start Date: 06/02/23 Status: Ordered LaMICtal 100 mg oral tablet 100 mg, 1, tablet, By Mouth, 2 times a day, # 60 tablet, Refills 3, Tot. Refills 3, Maintenance, 01/21/19 11:25:36 EDT, Route to Pharmacy Electronically, [id number], [facility]/pharmacy #[id number] Start Date: 01/21/19 Stop Date: 05/21/19 Status: Ordered lamotrigine 100 mg oral tablet Refills 0, Maintenance, 05/01/23 15:28:00 EDT, Partial fill upon patient request if the prescription is for a schedule II opioid drug. Start Date: 05/01/23 Status: Ordered lisinopril 40 mg oral tablet 1 tablet, By Mouth, Daily, # 90 tablet, 1 Refills, Maintenance, 08/17/23 13:33:00 EST, [facility]/pharmacy#0843, 168, cm, 07/23/23 15:05:00 EST, Height, 93, kg, 01/28/22 14:55:00 EDT, Dry Weight Start Date: 08/17/23 Status: Ordered Metoprolol Tartrate 50 mg oral tablet 1.5 tablet, By Mouth, 2 times a day, # 270 tablet, 1 Refills, Maintenance, 02/20/23 7:15:00 EDT, [facility], 175, cm, 10/09/22 16:51:00 EDT, Height, 93, kg, 01/28/22 14:55:00 EDT, Dry Weight Start Date: 02/20/23 Status: Ordered nicotine 14 mg/24 hr transdermal film, extended release See Instructions, apply to skin, # 14 patch, 1 Refills, Maintenance, 07/23/23 15:53:00 EST, Patch, [facility]/pharmacy #0843, Partial fill upon patient request if the prescription is for a schedule II opioid drug., apply to skin, 168, cm, 07/23/23 15:05:00 E... Start Date: 07/23/23 Status: Ordered nitroglycerin 0.4 mg sublingual tablet [...] Weight Start Date: 11/07/22 Status: Ordered Pen [place], 31 G x 5 mm BD Ultra Fine III See Instructions, # 300 each, Refills 1, Tot. Refills 1, Maintenance, Use TID DM Type 2 on insulin E11.9, 06/05/23 14:45:00 EST, DM E11.9, Compound, 168, cm, 05/01/23 14:45:00 EDT, Height, 93, kg, 01/28/22 14:55:00 EDT, Dry Weight Start Date: 06/05/23 Status: Ordered pregabalin 75 mg oral capsule 1 capsule = 75 mg, By Mouth, Daily, # 30 capsule, 2 Refills, Maintenance, 07/03/23 9:40:00 EST, [facility]/pharmacy #[id number], Partial fill upon patient request if the prescription is for a schedule II opioid drug., 168, cm, 05/01/23 14:45:00 EDT, Height, 93, kg... Start Date: 07/03/23 Status: Ordered rosuvastatin 20 mg oral tablet 1 tablet, By Mouth, Daily, # 90 tablet, 1 Refills, Maintenance, 03/29/23 14:43:00 EDT, [facility], 175, cm, 10/09/22 16:51:00 EDT, Height, 93, [...] mild to moderate. 3MI 2012 circumflex stent 2012/[place] 4secondary to hep C 524 weeks therapy with sofosbuvir/weight based ribavirin 88781 inferolateral stent bare metal circumflex 7DR Marissa morgan;Dr Schwartz 8hyperplatic polyp repeat screening in 2025 [...] Team Personnel Name: Jeffrey Mccoy MD Position: [facility] Renal MD Member Role: Lifetime Consulting Physician Address: Address: [address] [place] [address] [address] [facility] [place], [place] [address] Name: Kelly Butler NP Position: [facility] PCO Associate Professional Member Role: PCP Address: Address: [address] [place] [address]- Name: Kristin Mckenzie Position: [facility] Outreach Member Role: Lifetime Consulting Physician Name: Prieto Tobin RN Position: [facility] RN Member Role: Primary Care Nurse Name: Jonn Hui DO Position: [facility] Renal MD Member Role: Lifetime Consulting Physician Address: Address: [address] [place] [address] [address] [facility] [place], [place] [address] Name: Zafar CALVO, Luis Angel Rojas Position: [facility] RN Member Role: Primary Care Nurse Care Team Related Persons Name: CARLOS A BORDEN Address: [address] [place] [address] Name: LEVI BORDEN Address: [address] [place] [address]
--- OUTSIDE RECORDS SUMMARY | 2024-06-01 11:53 | XMS_ITS | Continuity of Care Document ---
Author Organization [facility] Shawn Lazaro lt Address [address] [place] [address]- Care Team Providers Care Rough Patcher Name Role Phone Carrie Kelly RIVERA Primary Care Physician [facility] 06[facility]22 - 07/11/22 [facility] Adult [address] [place] [address]- Allergies, Adverse Reactions, Alerts Substance Reaction Severity [...] Refills, Maintenance, 05/21/22 13:33:00 EST, [facility], 175, cm, 05/09/22 11:08:00 EDT, Height, 93, [...] 04/01/22 21:30:00 EDT, Route to Pharmacy Electronically, [facility]/pharmacy #[id number], 175, cm, 02/14/22 10:10:00 EDT, Height, [...] 01/21/19 11:25:36 EDT, Route to Pharmacy Electronically, [id number], [facility]/pharmacy #[id number] Start Date: 01/21/19 Stop Date: 05/21/19 Status: Ordered lisinopril 40 mg oral tablet 1 tablet, By Mouth, Daily, # 90 tablet, 1 Refills, Maintenance, 05/07/22 14:29:00 EDT, [facility], 175, cm, 04/08/22 8:34:00 EDT, Height, 93, kg, 01/28/22 14:55:00 EDT, Dry Weight Start Date: 05/07/22 Status: Ordered Metoprolol Tartrate 50 mg oral tablet 1.5 tablet, By Mouth, 2 times a day, # 270 tablet, 0 Refills, 05/21/22 10:19:00 EST, [facility]/pharmacy #0843, 175, cm, 05/09/22 11:08:00 EDT, Height, 93, kg, 01/28/22 14:55:00 EDT, Dry Weight Start Date: 05/21/22 Status: Ordered nicotine 14 mg/24 hr transdermal film, extended release 1 patch, Topically, Daily, for 30 days, # 14 patch, 0 Refills, Acute 07/27/22 15:44:00 EST, 06/27/22 15:44:00 EST, Patch, [facility]/pharmacy #0843, 1 patch Topically Daily,x30 days, 175, cm, 05/09/22 11:08:00 EDT, Height, 93, kg, 01/28/22 14:55:00 EDT, Dry... Start Date: 06/27/22 Stop Date: 07/27/22 Status: Ordered nitroglycerin 0.4 mg sublingual tablet See Instructions, DISSOLVE 1 UNDER TONGUE EVERY 5 MINUTES NEEDED FOR CHEST PAIN CALL MD AFTER TAKING 3 TABS IN TOTAL IN A DAY, # 100 tablet, 0 Refills, Maintenance, 12/31/21 17:21:00 EDT, [facility]/pharmacy #0843, 175.2, cm, 12/18/21 14:10:00 EDT, Height... Start Date: 12/31/21 Status: Ordered NovoLOG FlexPen 100 units/mL injectable solution See Instructions, INJECT 0-18 UNITS SUBCUTANEOUSLY WITH MEALS FOR SLIDING SCALES, # 15 Unknown, 2 Refills, [facility] 198[facility], 175.2, cm, 05/27/21 11:26:00 EST, Height, 88.3, kg, 03/12/21 9:16:00 EDT, Dry Weight Start Date: 06/04/21 Status: Ordered Pen [place], 31 G x 5 mm BD Ultra [...] 5 Refills, Maintenance, 04/08/22 9:12:00 EDT, Capsule, [facility]/pharmacy #0843, 175, cm, 04/08/22 8:34:00 EDT, Height, 93, kg, 01/28/22 14:55:00 EDT, Dry Weight Start Date: 04/08/22 Status: Ordered rosuvastatin 20 mg oral tablet 1 tablet, By Mouth, Daily, # 90 tablet, 1 Refills, Maintenance, 05/21/22 13:33:00 EST, [facility], 175, cm, 05/09/22 11:08:00 EDT, Height, 93, kg, 01/28/22 14:55:00 EDT, Dry Weight Start Date: 05/21/22 Status: Ordered SEROquel 100 mg oral tablet 100 mg, 1, tablet, By Mouth, 2 times a day, PRN, # 1 tablet, Refills 2, Tot. Refills 2, Maintenance, Anxiety, 09/21/19 10:41:00 EDT, Route to Pharmacy Electronically, [facility]/pharmacy #[id number], 172, cm, 09/05/19 16:17:00 [...] 9 Unknown, 1 Refills, 01/21/22 15:39:00 EDT, [facility]/pharmacy #0843, 175.2, cm, 12/18/21 14:10:00 [...] 4, GFR 15-29 ml/min Confirmed Active ASHD; [place] 2012/stent circumflex vessel cath;abdelrahman 2018 3 Confirmed [...] 524 weeks therapy with sofosbuvir/weight based ribavirin 09822 inferolateral stent bare metal circumflex 7DR Molddoverno [...] Team Personnel Name: Jeffrey Mccoy MD Position: [facility] Renal MD Member Role: Lifetime Consulting Physician Address: Address: [address] [place] [address] [facility] [place] [address]- Name: Kelly Butler NP Position: [facility] PCO Associate Professional Member Role: PCP Address: Address: [address] [place] [address]- Name: Kristin Mckenzie Position: [facility] Outreach Member Role: Lifetime Consulting Physician Name: Prieto Tobin RN Position: [facility] RN Member Role: Primary Care Nurse Name: Jonn Hui DO Position: [facility] Renal MD Member Role: Lifetime Consulting Physician Address: Address: [address] [employer] [place] [address]E [facility] [place] [address]- Name: Luis Angel Stephen RN Position: [facility] RN Member Role: Primary Care Nurse Name: Tamie Baird RN Position: [facility] RN Member Role: Primary Care Nurse Care Team Related Persons Name: CARLOS A BORDEN Address: [address] [place] [address] [facility] Name: LEVI BORDEN Address: [address] [place] [address]
--- OUTSIDE RECORDS SUMMARY | 2024-06-01 11:53 | XMS_ITS | Continuity of Care Document ---
Author Organization [facility] Shawn Lazaro lt Address [address] [place] [address]- Care Team Providers Care Dialysis Technician Name Role Phone Aylin HICKMAN, Ben Willis Primary Care Physician Encounter [facility] Date(s): 08/06/21 - 09/05/21 [facility] [place] Adult [address] [place] [address]- Allergies, Adverse Reactions, Alerts Substance Reaction Severity Status Bee Stings Active Immunizations Given and Recorded Vaccine Date Status Refusal Reason influenza virus vaccine, inactivated 05/24/21 Andrew rded [...] Daily, # 30 tablet, 5 Refills, Maintenance, 07/25/21 10:21:00 EST, [facility]/pharmacy#[id number], 175.2, cm, 06/07/21 9:51:00 EST, Height, 88.3, kg, 03/12/21 9:16:00 EDT, Dry Weight Start Date: 07/25/21 Status: Ordered Ativan 1 mg oral tablet [...] Refills, Maintenance, 01/23/21 11:08:00 EDT, CR Capsule, [facility]/pharmacy #[id number], 175.3, cm, 01/21/21 12:58:00 EDT, Height, 83.6, kg, 04/23/20 17:46:00EDT, Dry Weight Start Date: 01/23/21 Stop Date: 01/18/22 Status: Ordered cholecalciferol 2000 intl units oral capsule 1 capsule = 2,000 International_Units, By Mouth, Daily, # 30 capsule, 5 Refills, Maintenance, 05/15/21 13:02:00 EST, Capsule, [facility]/pharmacy #[id number], 175.2, cm, 03/18/21 10:48:00 EDT, Height, 88.3, kg, 03/12/21 9:16:00 EDT, Dry Weight Start Date: 05/15/21 Status: Ordered cloNIDine 0.2 mg oral tablet 0.2 mg, 1, tablet, By Mouth, 2 times a day, # 60 tablet, Refills 5, Tot. Refills 5, Maintenance, 06/24/21 12:51:00 EST, Route to Pharmacy Electronically, [facility]/pharmacy #[id number], 175.2, cm, 06/07/21 9:51:00 EST, Height, 88.3, kg, 03/12/21 9:16:00 EDT, Dry... Start Date: 06/24/21 Status: Ordered Daily Simone oral tablet 1 tablet, By Mouth, Daily, # 30 tablet, 5 Refills, Maintenance, 07/29/21 13:53:00 EST, Tablet, [facility]/pharmacy #[id number], 1 tablet By Mouth Daily,x30 days, 175.2, cm, 06/07/21 9:51:00 EST, Height, 88.3, kg,03/12/21 9:16:00 EDT, Dry Weight Start Date: 07/29/21 Stop Date: 01/25/22 Status: Ordered docusate sodium 100 mg oral capsule 1 capsule, By Mouth, 2 times a day, PRN NEEDED FOR CONSTIPATION, # 60 capsule, 5 Refills, Maintenance, 06/05/21 15:57:00 EST, [facility]/pharmacy #[id number], 175.2, cm, 05/27/21 11:26:00 EST, Height, 88.3, kg, 03/12/21 9:16:00 EDT, Dry Weight Start Date: 06/05/21 Status: Ordered folic acid 1 mg oral tablet 1, tablet, By Mouth, Daily, # 30 tablet, Refills 5, Tot. Refills 5, Maintenance, 07/25/21 15:59:00 EST, Route to Pharmacy Electronically, [facility]/pharmacy #[id number], 175.2, cm, 06/07/21 9:51:00 EST, Height, [...] tablet, 5 Refills, Maintenance, 06/05/21 15:57:00 EST, [facility]/pharmacy #[id number], 175.2, cm, 05/27/21 11:26:00 EST, Height, 88.3, kg, 03/12/21 9:16:00 EDT, Dry Weight Start Date: 06/05/21 Status: Ordered LaMICtal 100 mg oral tablet 100 mg, 1, tablet, By Mouth, 2 times a day, # 60 tablet, Refills 3, Tot. Refills 3, Maintenance, 01/21/19 11:25:36 EDT, Route to Pharmacy Electronically, [id number], [facility]/pharmacy #[id number] Start Date: 01/21/19 Stop Date: 05/21/19 Status: Ordered latanoprost 0.005% ophthalmic solution 1 drops, Eyes, Both, Daily at bedtime, # 3 mL, 0 Refills, Maintenance, 02/02/19 16:23:39 EDT, OphthSolution, 1 drops Eyes, Both Daily at bedtime Start Date: 02/02/19 Status: Ordered lisinopril 40 mg oral tablet 1 tablet = 40 mg, By Mouth, Daily, # 30 tablet, 3 Refills, Maintenance, 06/24/21 16:13:00 EST, Tablet, [facility]/pharmacy #[id number], Partial fill upon patient request if the prescription is for a schedule II opioid drug., 175.2, cm, 06/07/21 9:51:00 EST, Height... Start Date: 06/24/21 Status: Ordered Metoprolol Tartrate 50 mg oral tablet See Instructions, TAKE 1 + 1/2 TABLETS BY MOUTH 2 TIMES A DAY, # 270 tablet, 0 Refills, 06/24/21 10:42:00 EST, [facility]/pharmacy #[id number], 175.2, cm, 06/07/21 9:51:00 EST, Height, 88.3, kg, 03/12/21 9:16:00 EDT, Dry Weight Start Date: 06/24/21 Status: Ordered nicotine 2 mg oral transmucosal lozenge See Instructions, USE 1 LOZENGE UP TO EVERY 1 HOUR NEEDED FOR 10 DAYS, # 162 lozenge, 0 Refills,Maintenance, 09/05/21 15:50:00 EST, [facility]/pharmacy #[id number], 16, USE 1 LOZENGE UP TO EVERY 1 HOUR NEEDED FOR 10 DAYS, 175.2, cm, 07/31/21 11:20:00 EST, H... Start Date: 09/05/21 Status: Ordered nitroglycerin 0.4 mg sublingual tablet See Instructions, DISSOLVE 1 UNDER TONGUE EVERY 5 MINUTES NEEDED FOR CHEST PAIN INSTR:CALL MD AFTER TAKING 3 TABS IN TOTAL IN A DAY, # 100 tablet, 0 Refills, Maintenance, 08/23/21 8:07:00 EST, [facility]pharmacy [id number], 175.2, cm, 07/31/21 11:20:00 EST, H... Start Date: 08/23/21 Status: Ordered NovoLOG FlexPen 100 units/mL injectable solution See Instructions, INJECT 0-18 UNITS SUBCUTANEOUSLY WITH MEALS FOR SLIDING SCALES, # 15 Unknown, 2 Refills, [id number], 175.2, cm, 05/27/21 11:26:00 EST, Height, 88.3, kg, 03/12/21 9:16:00 EDT, Dry Weight Start Date: 06/04/21 Status: Ordered Pen Driggs, 31 G x 5 mm BD Ultra [...] 5 Refills, Maintenance, 06/10/21 12:32:00 EST, Capsule, [facility]/pharmacy #[id number], 175.2, cm, 06/07/21 9:51:00 EST, Height, 88.3, kg, 03/12/21 9:16:00 EDT, Dry Weight Start Date: 06/10/21 Status: Ordered pregabalin 75 mg oral capsule 1 capsule = 75 mg, By Mouth, 2 times a day, # 60 capsule, 5 Refills, Maintenance, 06/07/21 13:14:00EST, Capsule, [facility]/pharmacy #[id number], 175.2, cm, 06/07/21 9:51:00 EST, Height, 88.3, kg, 03/12/21 9:16:00 EDT, Dry Weight Start Date: 06/07/21 Status: Ordered rosuvastatin 20 mg oral tablet 1 tablet, By Mouth, Daily, # 90 tablet, 1 Refills, Maintenance, 08/15/21 14:24:00 EST, [facility]/pharmacy#[id number], 175.2, cm, 07/31/21 11:20:00 EST, Height, 88.3, kg, 03/12/21 9:16:00 EDT, Dry Weight Start Date: 08/15/21 Status: Ordered SEROquel 100 mg oral tablet 100 mg, 1, tablet, By Mouth, 2 times a day, # 60 tablet, Refills 2, Tot. Refills 2, Maintenance, 09/21/19 10:41:00 EDT, Route to Pharmacy Electronically, [facility]/pharmacy #[id number], 172, cm, 09/05/19 [...] a day Start Date: 02/02/19 Status: Ordered sodium bicarbonate 650 mg oral tablet 1 tablet = 650 mg, By Mouth, 2 times a day, # 60 tablet, 0 Refills, Maintenance, 02/11/21 9:14:00 EDT, Tablet, Partial fill upon patient request if the prescription is for a schedule II opioid drug. Start Date: 02/11/21 Status: Ordered Tresiba FlexTouch 200 units/mL subcutaneous solution See Instructions, INJECT 14 UNITS SUBCUTANEOUSLY DAILY AT BEDTIME, INCREASE 2 UNITS EVERY 3 DAYS UNTIL FBS < 120 PER PCP MAX DOSE 60 UNITS/DAY, # 9 Unknown, 1 Refills, [id number], 175.2, cm, 07/31/21 11:20:00 EST, Height, 88.3, [...] Active Glomerulonephritis,mesangial proliferative/fibrillary(Confirmed) 1, 2 Active ASHD; [place] 2012/stent circumfl ex vessel cath;abdelrahman 2018(Confirmed) 3 Active Epididymal cyst rt(Confirmed) 04/18/19 Active Low serum vitamin D(Confirmed) Active Dizzinesses(Confirmed) Active Insulin long-term use(Confirmed) Active Fibrillary glomerulonephritis(Confirmed) 4 Active GERD with [...] 524 weeks therapy with sofosbuvir/weight based ribavirin 55130 inferolateral stent bare metal circumflex 7DR Moldverno sx;Dr Schwartz 8hyperplatic polyp repeat screening in [...]
--- OUTSIDE RECORDS SUMMARY | 2024-06-01 11:54 | XMS_ITS | Continuity of Care Document ---
Author Organization [facility] Shawn Lazaro lt Address [address] [place] [address]- Care Team Providers Care Music Education Adjunct Professor Name Role Phone Carrie Kelly RIVERA Primary Care Physician [place] [facility] [place] [facility] Adult [address] [place] [address]- Allergies, Adverse Reactions, Alerts Substance Reaction Severity Status Bee Stings Active Immunizations Given and Recorded Vaccine Date Status Refusal Reason SARS-CoV-2(COVID-19)mRNA-LNP vac([id number]) 05/08/23 Recorded pneumococcal 20-valent conjugate vaccine 1 [...] 02/03/23 Recorded zoster vaccine, inactivated 08/09/19 Recorded [id number] 12y+ bivalent booster vax 05/17/22 Recorded SARS-CoV-2 (COVID-19) mRNA-1273 vaccine 10/10/21 R ecorded SARS-CoV-2 (COVID-19) mRNA BNT-162b2 vac 04/29/21 Recorded SARS-CoV-2 (COVID-19) mRNA BNT-162b2 vac 4/7/21 Recorded SARS-CoV-2 (COVID-19) mRNA BNT-162b2 vac 09/19/20 Recorded Influenza Virus Vaccine (oldterm) 03/05/20 Recorde d pneumococcal 23-valent vaccine 08/09/19 Recorded pneumococcal 23-valent vaccine 04/16/10 Given tetanus/diphtheria/pertussis, acel(Tdap) 07/28/11 Given hepatitis B adult vaccine 3 01/07/11 Given hepatitis B adult vaccine 4 12/10/10 Given 1Result Comment: [id number] 2Result Comment: [id number] 3Admin Note: pt waited 10 mins post inj no adverse reaction noted.j a 4Admin Note: PT WAITED 10 MIN WITH NO ADVERSE REACTION. MH Medications aspirin 81 mg oral delayed release tablet 1 tablet, By Mouth, Daily, # 90 tablet, 1 Refills, Maintenance, 06/02/23 11:42:00 EST, [facility]/pharmacy#[id number], 168, cm, 05/01/23 14:45:00 EDT, Height, 93, [...] capsule, 1 Refills, Maintenance, 06/30/23 7:20:00 EST, [facility] 640[facility], 168, cm, 05/01/23 14:45:00 EDT, Height, 93, kg, 01/28/22 14:55:00 EDT, Dry Weight Start Date: 06/30/23 Status: Ordered Daily Simone oral tablet 1 tablet, By Mouth, Daily, # 90 tablet, 1 Refills, Maintenance, 06/30/23 7:20:00 EST, [facility], 90, TAKE 1 TABLET BY MOUTH EVERY [...] Refills, Maintenance, 06/26/23 6:50:00 EST, [facility], 168, cm, 05/01/23 14:45:00 EDT, Height, 93, kg, 01/28/22 14:55:00 EDT, Dry Weight Start Date: 06/26/23 Status: Ordered folic acid 1 mg oral tablet 1, tablet, By Mouth, Daily, # 90 tablet, Refills 1, Tot. Refills 1, Maintenance, 07/03/23 10:01:00 EST, Route to Pharmacy Electronically, [facility]/pharmacy #[id number], 168, cm, 05/01/23 14:45:00 EDT, Height, [...] 01/21/19 11:25:36 EDT, Route to Pharmacy Electronically, [id number], [facility]/pharmacy #[id number] Start Date: 01/21/19 Stop Date: 05/21/19 Status: Ordered lamotrigine 100 mg oral tablet Refills 0, Maintenance, 05/01/23 15:28:00 EDT, Partial fill upon patient request if the prescription is for a schedule II opioid drug. Start Date: 05/01/23 Status: Ordered lisinopril 40 mg oral tablet 1 tablet, By Mouth, Daily, # 90 tablet, 0 Refills, Maintenance, 04/21/23 10:51:00 EDT, [facility], 175, cm, 10/09/22 16:51:00 EDT, Height, 93, [...] Refills, Maintenance, 02/20/23 7:15:00 EDT, [facility], 175, cm, 10/09/22 16:51:00 EDT, Height, 93, kg, 01/28/22 14:55:00 EDT, Dry Weight Start Date: 02/20/23 Status: Ordered nicotine 14 mg/24 hr transdermal film, extended release See Instructions, apply to skin, # 14 patch, 1 Refills, Maintenance, 07/23/23 15:53:00 EST, Patch, [facility]/pharmacy #[id number], Partial fill upon patient [...] 15 Unknown, 2 Refills, 11/07/22 0:09:00 EDT, [facility]/pharmacy #[id number], 175, cm, 10/09/22 16:51:00 EDT, Height, 93, kg, 01/28/22 14:55:00 EDT, Dry Weight Start Date: 11/07/22 Status: Ordered Pen Alexander, 31 G x 5 mm BD Ultra [...] capsule, 2 Refills, Maintenance, 07/03/23 9:40:00 EST, [facility]/pharmacy #[id number], Partial fill upon patient request if the prescription is for a schedule II opioid drug., 168, cm, 05/01/23 14:45:00 EDT, Height, 93, kg... Start Date: 07/03/23 Status: Ordered rosuvastatin 20 mg oral tablet 1 tablet, By Mouth, Daily, # 90 tablet, 1 Refills, Maintenance, 03/29/23 14:43:00 EDT, [facility], 175, cm, 10/09/22 16:51:00 EDT, Height, 93, [...] 4, GFR 15-29 ml/min Confirmed Active ASHD; [place] 2012/stent circumflex vessel cath;abdelrahman 2018 3 Confirmed [...] of acute myocardial infarction of inferior wall 6 Confirmed Active Hyperlipidemia Confirmed Active Hypertension [...] mild to moderate. 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 2013/[place] 4secondary to hep C 524 weeks therapy with sofosbuvir/weight based ribavirin 06660 inferolateral stent bare metal circumflex 7DR Molddoverno [...] Team Personnel Name: Jeffrey Mccoy MD Position: [facility] Renal MD Member Role: Lifetime Consulting Physician Address: Address: [address] [place] [address] [facility] [place] [address]- Name: Kelly Butler NP Position: [facility] PCO Associate Professional Member Role: PCP Address: Address: [address] [place] [address]- Name: Kristin Mckenzie Position: [facility] Outreach Member Role: Lifetime Consulting Physician Name: Prieto Tobin RN Position: [facility] RN Member Role: Primary Care Nurse Name: Jonn Hui DO Position: [facility] Renal MD Member Role: Lifetime Consulting Physician Address: Address: [address] [place], [place] [address] [place] [address]- Name: Luis Angel Stephen RN Position: [facility] RN Member Role: Primary Care Nurse Care Team Related Persons Name: CARLOS A BORDEN Address: [address] [place] [address] Name: LEVI BORDEN Address: home [address] [place] [address]
--- OUTSIDE RECORDS SUMMARY | 2024-06-01 11:54 | XMS_ITS | Continuity of Care Document ---
Author Organization [facility] Address [address] [place] [id number]- Care Team Providers Care Donor Floor Technician Name Role Phone Kelly Butler NP Primary Care Physician [phone] Encounter [facility] Date(s): 04/19/24 - 04/26/24 [facility] [address] [place], [place] [id number]- Attending Physician: Larissa Schaeffer NP Referring Physician: Kelly Butler NP Allergies, Adverse Reactions, [...] virus vaccine, inactivated 04/16/10 Give n SARS-CoV-2(COVID-19)mRNA-LNP vac([id number]) 12/31/23 Recorded SARS-CoV-2(COVID-19)mRNA-LNP vac([id number]) 05/08/23 Recorded tetanus/diphtheria/pertussis, acel(Tdap) 10/15/23 Recorded tetanus/diphtheria/pertussis, acel(Tdap) 07/28/11 Given pneumococcal 20-valent conjugate vaccine 3 05/01/23 Given zoster vaccine, inactivated 02/03/23 Recorded zoster vaccine, inactivated 08/09/19 Recorded [id number] 12y+ bivalent booster vax 05/17/22 Recorded SARS-CoV-2 [...] 12/10/10 Given 1Result Comment[facility] Comment: [id number] 3Result Comment: [id number] 4Admin Note: pt waited 10 mins post inj no adverse reaction noted.j a 5Admin Note: PT WAITED 10 MIN WITH NO ADVERSE REACTION. Medications albuterol 90 mcg/inh inhalation powder 1 puffs, Inhalation, Every 6 hours, PRN Wheezing/Shortness of Breath, # 1 each, 0 Refills, Maintenance, 02/15/24 13:38:00 EDT, Powder, [facility]/pharmacy #[id number], Partial fill upon patient request if the prescription is for a schedule II opioid drug., 1 puffs... Start Date: 02/15/24 Status: Ordered amLODIPine 10 mg oral tablet 10 mg, By Mouth, Daily, # 30 tablet, Refills 5, Tot. Refills 5, Maintenance, 03/11/24 11:59:00 EDT,Route to Pharmacy Electronically, [facility]/pharmacy #[id number], Partial fill upon patient request if the prescription is for a schedule II opioid drug., 168, cm,... Start Date: 03/11/24 Stop Date: 09/07/24 Status: Ordered aspirin 81 mg oral delayed release tablet 1 tablet, By Mouth, Daily, # 90 tablet, 1 Refills, Maintenance, 01/25/24 21:53:00 EDT, [facility]/pharmacy#[id number], 168, cm, 01/11/24 14:42:00 EDT, Height, 93, [...] Gm, 0 Refills, Maintenance, 02/15/24 13:39:00 EDT, [facility]/pharmacy #[id number], Partial fill upon patient request if the prescription is for a schedule II opioid drug., 168, cm, 02/03/24 10:41:00 EDT, Height Start Date: 02/15/24 Status: Ordered folic acid 1 mg oral tablet 1, tablet, By Mouth, Daily, # 90 tablet, Refills 1, Tot. Refills 1, Maintenance, 02/17/24 7:23:00 EDT, Route to Pharmacy Electronically, [facility]/pharmacy #[id number], 168, cm, 02/15/24 13:43:00 EDT, Height [...] 01/21/19 11:25:36 EDT, Route to Pharmacy Electronically, [id number], [facility]/pharmacy #[id number] Start Date: 01/21/19 Stop Date: 05/21/19 Status: Ordered lisinopril 10 mg oral tablet 10 mg, 1, tablet, By Mouth, Daily, # 90 tablet, Refills 0, Tot. Refills 0, Maintenance, 04/19/24 9:02:00 EDT, Route to Pharmacy Electronically, [facility]/pharmacy #[id number], 168, cm, 04/15/24 10:23:00 EDT, Height [...] tablet, 0 Refills, Maintenance, 03/17/24 14:24:00 EDT, [facility]/pharmacy #[id number], 168, cm, 03/17/24 9:46:00 EDT, Height [...] mL, 0 Refills, Maintenance, 02/02/24 15:28:00 EDT, [place], [facility]/pharmacy #[id number], Partial fill upon patient... Start Date: 02/02/24 Status: Ordered Pen [place], 31 G x 5 mm BD Ultra [...] Refills, Maintenance, 02/04/24 16:39:00 EDT, [id number], 168, cm, 02/03/24 10:41:00 EDT, Height Start [...] 4, GFR 15-29 ml/min Confirmed Active ASHD; [place] 2012/stent circumflex vessel cath;abdelrahman 2018 3 Confirmed [...] mild to moderate. 3MI 2012 circumflex stent 2013/[place] 4secondary to hep C 524 weeks therapy with sofosbuvir/weight based ribavirin 77045 inferolateral stent bare metal circumflex 7DR Marissa sx;Dr Schwartz 8hyperplatic polyp repeat screening in 2025 9repeat colonoscopy in 5 years Vital Signs Most recent to oldest [Reference Range]: 1 2 Height 168.0 cm (04/19/24 2:01 PM) 168.0 cm (04/19/24 1:52 PM) Weight 86 kg (04/19/24 1:52 PM) Pulse Rate [55-90 bpm] 82 bpm (04/19/24 1:52 PM) Body Mass Index [18.5-24.99 kg/m2] 30.47 kg/m2 *>HHI* (04/19/24 1:52 PM) Blood Pressure [90-138/55-84 mm Hg] 150/ 65mm Hg *H* (04/19/24 2:01 PM) 158/63mm Hg *H* (04/19/24 1:52 PM) Blood pressure sites Arm, right (04/19/24 2:01 PM) Arm, right (04/19/24 1:52 PM) Weight Obtained Via Patient/family state d (04/19/24 1:52 PM) Social History Social History Type Response Smoking Status Former smoker, quit more than 30 days ago; Interested in cessation: No; Other: quit; Tobacco use times per day: prio 1/2-1 ppd; Total pack years: 38; Started at age: 12; Stopped at age: 63; entered on: 07/20/20 Sex Note * Prior , Hanna: PERFORM Event Display: Patient Education/Instruction Authored Date: [id number] Ambulatory Adult Visit Summary [facility] [address] [place] [id number] Name: BRITTANY BORDEN : 1955?? Visit: 04/19/2024 13:50?? Ambulatory Visit Instructions ?? Your Care Team Primary Care Provider Kelly Butler NP? This Visit Provider Laury RIVERA, Larissa Richmond Signs Pulse Rate: 82 bpm Height: 168 cm Systolic Blood Pressure:??150 mm Hg??High Weight: 86 kg Diastolic Blood Pressure: 65 mm Hg Body Mass Index:??30.47 kg/m2??Critical ?? Body surface area: 2 What to do next Scheduled Follow-Up Appointments Thursday 3:00 PM EST ?? With: Alley Esquivel RN Where: Diabetic Teaching Status: Pending Thursday 2:30 PM EST ?? With: Kelly Butler NP Where: [address] [address]- Status: Pending Future Orders COVID-19 (2019 Novel Coronavirus) PCR - Routine, Nose, Patient is Symptomatic, Once, 02/03/24 10:56:00 EDT, Order for Today, [facility], Swab?? Medications The list below reflects the information in our records and provided by you today along with any changes made during this visit. Please continue your medications until treatment is completed or stopped by your provider. If this is different from the information you have or there are other questions,please contact the prescribing provider. What How Much When Why Instructions New Carvedilol (carvedilol 6.25 mg oral tablet) 1 tab(s) Oral Twice a day Refills: 3 this replaces metoprolol xl ?? Pickup at [facility]/pharmacy #[id number] Unchanged Albuterol (albuterol 90 mcg/ inh inhalation powder) 1 puff(s) Inhalation Every 6 hours as needed for Wheezing/Shortness of Breath Acute sinusitis Unchanged Amlodipine (amLODIPine 10 mg oral tablet) 10 Milligram Oral Daily Duration: 30 Days Unchanged Aspirin (aspirin 81 mg oral delayed release tablet) 1 tab(s) Oral Daily Unchanged Cholecalciferol (D3 50 mcg (2000 intl units) oral capsule) 1 capsule Oral Daily Unchanged dapagliflozin (dapagliflozin 10 mg oral tablet) 1 tab(s) Oral Daily Unchanged Docusate (Colace sodium 100 mg oral capsule) 1 capsule Oral Twice a day as needed for for constipation Duration: 14 Days Unchanged Durable Medical Equipment (Freestyle Lite Lancets) See instructions Check blood sugars three times a day DM Type 2 E11.9 ?? Unchanged Durable Medical Equipment (Freestyle Lite Test Strips) See instructions Check blood sugars three times a day DM Type 2 E11.9 ?? Unchanged Durable Medical Equipment (Pen [place], 31 G x 5 mm BD Ultra Fine III) See instructions Use TID DM Type 2 on insulin E11.9 ?? Unchanged Fluticasone Nasal (Flonase Allergy Relief 50 mcg/ inh nasal spray) See instructions Acute sinusitis 1 sprays Daily in each nostril ?? Unchanged Folic Acid (folic acid 1 mg oral tablet) 1 tab(s) Oral Daily Unchanged Insulin Aspart (NovoLOG FlexPen 100 units/ mL injectable solution) See instructions INJECT 0-18 UNITS SUBCUTANEOUSLY WITH MEALS FOR SLIDING SCALES ?? Unchanged Lamotrigine (LaMICtal 100 mg oral tablet) 1 tab(s) Oral Twice a day Duration: 30 Days Unchanged Lisinopril (lisinopril 10 mg oral tablet) 1 tab(s) Oral Daily Unchanged Lorazepam (Ativan 1 mg oral tablet) 1 tab(s) Oral 4 times a day Unchanged Methylphenidate (methylphenidate 5 mg oral tablet) TAKE 1 TABLET BY MOUTH THREE TIMES A DAY ?? Unchanged Miscellaneous Rx (FREESTYLE LITE TEST STRIP) See instructions CHECK BLOOD SUGARS THREE TIMES A DAY DM TYPE 2 E11.9 ?? Unchanged Multivitamin (Daily Simone oral tablet) 1 tab(s) Oral Daily Unchanged Nitroglycerin (nitroglycerin 0.4 mg sublingual tablet) See instructions DISSOLVE 1 UNDER TONGUE EVERY 5 MINUTES NEEDED FOR CHEST PAIN CALL MD AFTER TAKING 3 TABS IN TOTAL IN A DAY ?? Unchanged Nitroglycerin (nitroglycerin 0.4 mg sublingual tablet) See instructions DISSOLVE 1 UNDER TONGUE EVERY 5 MINUTES NEEDED FOR CHEST PAIN CALL MD AFTER TAKING 3 TABS IN TOTAL IN A DAY ?? Unchanged Oxymetazoline Nasal (oxymetazoline 0.05% nasal spray) 2 spray(s) Nares, Both Twice a day as needed for nasal/sinus congestion Do not use more than twice a day. ??Do not use for more than 3 days in a row ?? Unchanged Quetiapine (SEROquel 300 mg oral tablet) 1 tab(s) Oral Daily at Bedtime Unchanged Rosuvastatin (rosuvastatin 20 mg oral tablet) 1 tab(s) Oral Daily Pharmacy Information [facility]/pharmacy #[id number]: [address] [place], [place] [id number] [phone] ?? What How Much When Comments Stop Taking Metoprolol (metoprolol 25 mg oral tablet, extended release) 1 tab(s) Oral Daily Duration: 30 Days Medications and Immunizations Administered Medications Given During Visit No medications given during this visit.?? Allergies (NKA means No Known Allergies) Bee Stings Education Materials Below is the list of Educational Leaflet Providered with your Visit summary. Web[employer] Ignite Patient Education - Kidney Disease: Watching Potassium in Food?? Common Emergency Awareness Tips IS IT A STROKE? Act FAST and Check for these signs: FACE Does the face look uneven? ARM Does one arm drift down? SPEECH Does their speech sound strange? TIME Call at any sign of stroke ?? Heart Attack Signs Chest discomfort: Most heart attacks involve discomfort in the center of the chest and lasts more than a few minutes, or goes away and comes back. It can feel like uncomfortable pressure, squeezing, fullness or pain. Discomfort in upper body: Symptoms can include pain or discomfort in one or both arms, back, neck, jaw or stomach. Shortness of breath: With or without discomfort. Other signs: Breaking out in a cold sweat, nausea, or lightheaded. Remember, MINUTES DO MATTER. If you experience any of these heart attack warning signs, call to get immediate medical attention! ?? Smoking can increase your chances of developing chronic health problems and can cause harmful effects to other family members in your house. If you smoke, you are strongly encouraged to quit. Please call [facility] at [phone] or [phone] ([phone]) or log in to [email or web address] for referrals to smoking cessation programs. ?? The National Suicide Prevention Hotline is available 26/01 if you or someone you know needs to find a reason to keep living. By calling 1-633-137-[employer] (5419) you'll be connected to a skilled, trained counselor at a crisis center in your area. [facility] You can view and manage your care through the patient portal or by using a health care [place] of your choosing. vendome 1699 is a website that allows you to securely view your medical information including your hospital discharge summary, office visit summaries, medications and follow-up visits. You can also request appointments, renew medications, and request access to your medical information using a health care [place] of your choosing, or just ask a question. You can enroll at [email or web address] or register during your next office visit. [facility], in keeping with [facility] guidance, no longer requires face masks for staff, patientsor visitors in most situations. Similiar to time spent indoors at other locations, there is the chance that you were exposed to repiratory viruses during your time with us (such as flu or COVID-19). If you develop symptoms concerning for a viral respiratory infection, please seek testing (and treatment if indicated) from your medical provider or home test kit. ?? Disclaimer: The information provided is of a general nature and is intended to be used in conjunction with the recommendations and advice of your health care practitioner. Every effort has been made to ensure that the information provided is accurate and complete at the time it is provided to you however, as your needs change, or, as new information becomes available, different or additional instructions may be required. ?? If you have questions, please consult with your primary care provider or pharmacist, as appropriate. This information is not intended to serve as substitution for assessment and evaluation by a qualified health care provider. If you do not have a primary care provider, you may find a [facility] provider by calling [facility] at [phone]. * Laury RIVERA, Larissa Riddle: PERFORM Event Display: Patient Education Leaflets Authored Date: [id number] Kidney Disease: Watching Potassium in Food ?? [address] Kidney Disease: Watching Potassium in Food When you have kidney disease, you need to control the amount of potassium you eat. People with kidney disease should have no more than 2,000 mg to 3,000 mg each day. Your healthcare provider will tell you what your limit should be. This will help you keep a safe level in your blood. Some foods have high levels of potassium. Some foods can be prepared to remove potassium. The tips on this sheet will help you learn more. Read all labels Look for the Nutrition Facts Label on foods and drinks. At the bottom of the label, you will see the amount of potassium in the food or drink. Keep an eye on how much potassium you consume. Don???t eat or drink anything with more than 200 mg of potassium per serving. ?? Watch out for high-potassium foods These foods have high potassium levels: ??? Dried fruits ??? Salt substitutes and light salt ??? Milk and yogurt ??? Chicken ??? [facility] ??? Avocados ??? Bananas ??? Tomatoes ??? Potatoes ??? [place] squash ??? Spinach and broccoli ??? Most nuts ??? Coffee ??? Some fruit and vegetable juices ??? Some powdered drink mixes ?? Soak starchy vegetables You can remove some potassium from starchy vegetables. For example, to reduce the potassium in white potatoes: ??? Peel and cut the potatoes into 1/8-inch pieces. ??? Place the potatoes in a large amount of unsalted water. Allow to stand for at least 2 hours. ??? Drain, rinse, and drain the potatoes again. ??? Cook in a large amount of unsalted water. If you eat canned fruit and vegetables Potassium in canned fruit and vegetables seeps into the edwin liquid. Throw away the juice or water. Then rinse the fruit and vegetables with fresh water. This helps to remove more potassium. ?? Last Reviewed Date: 2022 ?? [phone] The [employer]. All rights reserved. This information is not intended as a substitute for professional medical care. Always follow your healthcare professional's instructions. ?? Patient Care team information Care Team Personnel Name: Jeffrey Mccoy MD Position: [facility] Renal MD Member Role: Lifetime Consulting Physician Address: Address: [address] [place] [address] [address] [facility] [place], [place] - Name: Kelly Butler NP Position: [facility] PCO Associate Professional Member Role: PCP Address: Address: [address] [place] [address] - Name: Kristin Mckenzie Position: [facility] Outreach Member Role: Lifetime Consulting Physician Name: Fortunato Sin RN Position: [facility] RN Member Role: Primary Care Nurse Name: Nury Watts RN Position: [facility] RN Member Role: Primary Care Nurse Name: Antonia Mena NP Position: [facility] Associate Professional Member Role: Lifetime Consulting Provider Address: Address: [address] [place], [place] [address] [place], [place] - Name: Prieto Tobin RN Position: [facility] RN Member Role: Primary Care Nurse Name: Ashleigh Reynoso RN Position: [facility] RN Member Role: Primary Care Nurse Name: Jonn Hui DO Position: [facility] Renal MD Member Role: Lifetime Consulting Physician Address: Address: [address] [place], [place] [address] [place], [place] - Name: Luis Angel Stephen RN Position: [facility] RN Member Role: Primary Care Nurse Name: Brandan Nogueira RN Position: [facility] RN Member Role: Primary Care Nurse Care Team Related Persons Name: CARLOS A BORDEN Address: home [address] [place] [address] Name: LEVI BORDEN Address: home [address] [place] [address]
--- OUTSIDE RECORDS SUMMARY | 2024-06-01 11:54 | XMS_ITS | Continuity of Care Document ---
Author Organization [facility] Nando Escobar Lazaro lt Address [address] [place] [address]- Care Team Providers Care Engine Manager Name Role Phone Ben Viera MD Primary Care Physician [phone] [place] [facility] [place]17[place] 07/20/21 [facility] Nando Escobar Adult [address] [place] [address]- Attending Physician: Ben Viera MD Allergies, Adverse [...] 01/07/11 Given hepatitis B adult vaccine 2 6/7/11 Given 1Admin Note: pt waited 10 mins post inj no adverse reaction noted.j a 2Admin Note: PT WAITED 10 MIN WITH NO ADVERSE REACTION. MH Medications aspirin 81 mg oral delayed release tablet 1 tablet, By Mouth, Daily, # 30 tablet, 11 Refills, Maintenance, 06/26/20 12:19:00 EST, [facility], 175, cm, 06/25/20 16:11:00 EST, Height, 83.6, [...] Refills, Maintenance, 01/23/21 11:08:00 EDT, CR Capsule, [facility]/pharmacy #[id number], 175.3, cm, 01/21/21 12:58:00 EDT, Height, 83.6, kg, 04/23/20 17:46:00EDT, Dry Weight Start Date: 01/23/21 Stop Date: 01/18/22 Status: Ordered cholecalciferol 2000 intl units oral capsule 1 capsule = 2,000 International_Units, By Mouth, Daily, # 30 capsule, 5 Refills, Maintenance, 05/15/21 13:02:00 EST, Capsule, [facility]/pharmacy #[id number], 175.2, cm, 03/18/21 10:48:00 EDT, Height, 88.3, kg, 03/12/21 9:16:00 EDT, Dry Weight Start Date: 05/15/21 Status: Ordered cloNIDine 0.2 mg oral tablet 0.2 mg, 1, tablet, By Mouth, 2 times a day, # 60 tablet, Refills 5, Tot. Refills 5, Maintenance, 06/24/21 12:51:00 EST, Route to Pharmacy Electronically, [facility]/pharmacy #[id number], 175.2, cm, 06/07/21 9:51:00 EST, Height, 88.3, kg, 03/12/21 9:16:00 EDT, Dry... Start Date: 06/24/21 Status: Ordered Daily Simone oral tablet 1 tablet, By Mouth, Daily, # 30 tablet, 5 Refills, Maintenance, 09/19/20 8:25:00 EDT, Tablet, [facility]/pharmacy #[id number], 1 tablet By Mouth Daily,x30 days, 175, cm, 07/20/20 10:29:00 EST, Height, 83.6, kg, 04/23/20 17:46:00 EDT, Dry Weight Start Date: 09/19/20 Stop Date: 03/18/21 Status: Ordered docusate sodium 100 mg oral capsule 1 capsule, By Mouth, 2 times a day, PRN NEEDED FOR CONSTIPATION, # 60 capsule, 5 Refills, Maintenance, 06/05/21 15:57:00 EST, [facility]/pharmacy #[id number], 175.2, cm, 05/27/21 11:26:00 EST, Height, 88.3, kg, 03/12/21 9:16:00 EDT, Dry Weight Start Date: 06/05/21 Status: Ordered folic acid 1 mg oral tablet 1, tablet, By Mouth, Daily, # 30 tablet, Refills 5, Tot. Refills 0, Maintenance, 01/18/21 14:44:00 EDT, Route to Pharmacy Electronically, [facility] STORE [facility], 175, cm, 12/24/20 11:20:00 EDT, Height, 83.6, [...] EST, Height... Start Date: 08/10/20 Status: Ordered Marian-kermit 8.6 mg oral tablet 2 tablet = 17.2 mg, By Mouth, Daily at bedtime, # 60 tablet, 5 Refills, Maintenance, 06/05/21 15:57:00 EST, [facility]/pharmacy #[id number], 175.2, cm, 05/27/21 11:26:00 EST, Height, 88.3, kg, 03/12/21 9:16:00 EDT, Dry Weight Start Date: 06/05/21 Status: Ordered LaMICtal 100 mg oral tablet 100 mg, 1, tablet, By Mouth, 2 times a day, # 60 tablet, Refills 3, Tot. Refills 3, Maintenance, 01/21/19 11:25:36 EDT, Route to Pharmacy Electronically, [id number], [facility]/pharmacy #[id number] Start Date: 01/21/19 Stop Date: 05/21/19 [...] 3 Refills, Maintenance, 06/24/21 16:13:00 EST, Tablet, [facility]/pharmacy #[id number], Partial fill upon patient request if the prescription is for a schedule II opioid drug., 175.2, cm, 06/07/21 9:51:00 EST, Height... Start Date: 06/24/21 Status: Ordered Metoprolol Tartrate 50 mg oral tablet See Instructions, TAKE 1 + 1/2 TABLETS BY MOUTH 2 TIMES A DAY, # 270 tablet, 0 Refills, 06/24/21 10:42:00 EST, [id number], 175.2, cm, 06/07/21 9:51:00 EST, Height, 88.3, kg, 03/12/21 9:16:00 EDT, Dry Weight Start Date: 06/24/21 Status: Ordered nicotine 2 mg oral transmucosal lozenge See Instructions, USE 1 LOZENGE UP TO EVERY 1 HOUR NEEDED FOR 10 DAYS, # 162 lozenge, 0 Refills,Maintenance, 07/15/21 11:21:00 EST, [facility]/pharmacy #[id number], 10, USE 1 LOZENGE UP TO EVERY 1 HOUR NEEDED FOR 10 DAYS, 175.2, cm, 06/07/21 9:51:00 EST, He... Start Date: 07/15/21 Status: Ordered nitroglycerin 0.4 mg sublingual tablet 1 tablet = 0.4 mg, Sublingual, Every 5 minutes, PRN for chest pain, call MD after taking 3 tabs in total in a day, # 100 tablet, 0 Refills, Maintenance, 05/12/19 13:47:55 EST, Tablet Start Date: 05/12/19 Status: Ordered NovoLOG FlexPen 100 units/mL injectable solution See Instructions, INJECT 0-18 UNITS SUBCUTANEOUSLY WITH MEALS FOR SLIDING SCALES, # 15 Unknown, 2 Refills, [facility], 175.2, cm, 05/27/21 11:26:00 EST, Height, 88.3, kg, 03/12/21 9:16:00 EDT, Dry Weight Start Date: 06/04/21 Status: Ordered Pen [place], 31 G x 5 mm BD Ultra Fine III See Instructions, # 150 each, Refills 11, Tot. Refills 11, Maintenance, Test blood sugar 5 times daily, 08/24/20 16:35:00 EST, DM E11.9, Compound, 175, cm, 07/20/20 10:29:00 EST, Height, 83.6, kg, 04/23/20 17:46:00 EDT, Dry Weight Start Date: 08/24/20 Status: Ordered pregabalin 75 mg oral capsule 1 capsule = 75 mg, By Mouth, Daily, # 30 capsule, 5 Refills, Maintenance, 06/10/21 12:32:00 EST, Capsule, [facility]/pharmacy #[id number], 175.2, cm, 06/07/21 9:51:00 EST, Height, 88.3, kg, 03/12/21 9:16:00 EDT, Dry Weight Start Date: 06/10/21 Status: Ordered pregabalin 75 mg oral capsule 1 capsule = 75 mg, By Mouth, 2 times a day, # 60 capsule, 5 Refills, Maintenance, 06/07/21 13:14:00EST, Capsule, [facility]/pharmacy #[id number], 175.2, cm, 06/07/21 9:51:00 EST, Height, 88.3, kg, 03/12/21 9:16:00 EDT, Dry Weight Start Date: 06/07/21 Status: Ordered rosuvastatin 20 mg oral tablet 1 tablet, By Mouth, Daily, # 90 tablet, 1 Refills, Maintenance, 01/08/21 14:43:00 EDT, [facility]/pharmacy#[id number], 175, cm, 12/24/20 11:20:00 EDT, Height, 83.6, kg, 04/23/20 17:46:00 EDT, Dry Weight Start Date: 01/08/21 Status: Ordered SEROquel 100 mg oral tablet 100 mg, 1, tablet, By Mouth, 2 times a day, # 60 tablet, Refills 2, Tot. Refills 2, Maintenance, 09/21/19 10:41:00 EDT, Route to Pharmacy Electronically, [facility]/pharmacy #[id number], 172, cm, 09/05/19 16:17:00 EST, Height, [...] Tresiba FlexTouch 200 units/mL subcutaneous solution = 24 units, Subcutaneous Infusion, Daily, at bedtime, increase 2 units every 3 days until FBS < 120 per PCP max dose 60 units qday, # 3 each, 1 Refills, Maintenance, 12/10/20 11:14:00 EDT, [facility]/pharmacy #[id number], 175, cm, 09/21/20 11:29:00 EDT, Height, [...] Status Inform ant Acute pancreatitis(Confirmed) 07/16/16 Active Bipolar disorder(Confirmed) Active Cervical spondylosis(Confirmed) Active Chronic back pain DJD(Confirmed) Active Glomerulonephritis,mesangial proliferative/fibrillary(Confirmed) 1, 2 Active ASHD; [place] 2012/stent circumfl ex vessel cath;abdelrahman 2018(Confirmed) 3 [...] 524 weeks therapy with sofosbuvir/weight based ribavirin 12619 inferolateral stent bare metal circumflex 7DR Marissa [...]
--- OUTSIDE RECORDS SUMMARY | 2024-06-01 11:54 | XMS_ITS | Continuity of Care Document ---
Author Organization [facility] Nando Escobar Lazaro lt Address [address] [place] [address]- Care Team Providers Care Fan Blade Aligner Name Role Phone Carrie CLINICAL ASSISTANT PROFESSORKelly Primary Care Physician Encounter [facility] Date(s): 08/05/22 - 09/04/22 [facility] Nando Escobar Adult [address] [place] [address]- Allergies, Adverse Reactions, Alerts Substance Reaction Severity [...] influenza virus vaccine, inactivated 04/16/10 Give n [id number] 12y+ bivalent booster vax 05/17/22 Recorded SARS-CoV-2 [...] tablet, 3 Refills, Maintenance, 09/30/21 12:28:00 EDT, [facility]/pharmacy#[id number], 175.2, cm, 09/20/21 8:36:00 EDT, Height, 88.3, [...] 5 Refills, Maintenance, 08/15/22 10:27:00 EST, Tablet, [facility]/pharmacy #[id number], 1 tablet By Mouth Daily,x30 days, [...] Refills, Maintenance, 05/21/22 13:33:00 EST, [facility], 175, cm, 05/09/22 11:08:00 EDT, Height, 93, kg, 01/28/22 14:55:00 EDT, Dry Weight Start Date: 05/21/22 Status: Ordered docusate sodium 100 mg oral capsule 1 capsule, By Mouth, 2 times a day, PRN NEEDED FOR CONSTIPATION, # 60 capsule, 5 Refills, Maintenance, 07/18/22 11:59:00 EST, [facility]/pharmacy #[id number], 175, cm, 07/17/22 10:33:00 EST, Height, 93, kg, 01/28/22 14:55:00 EDT, Dry Weight Start Date: 07/18/22 Status: Ordered folic acid 1 mg oral tablet 1, tablet, By Mouth, Daily, # 30 tablet, Refills 5, Tot. Refills 5, Maintenance, 08/15/22 10:27:00 EST, [id number], cm, 07/17/22 10:33:00 EST, Height, 93, kg, 01/28/22 14:55:00 EDT, Dry Weight Start Date: 08/15/22 Status: Ordered Freestyle Lite Test Strips See [...] 01/21/19 11:25:36 EDT, Route to Pharmacy Electronically, [id number], [facility]/pharmacy #[id number] Start Date: 01/21/19 Stop Date: 05/21/19 Status: Ordered lisinopril 40 mg oral tablet 1 tablet, By Mouth, Daily, # 90 tablet, 1 Refills, Maintenance, 05/07/22 14:29:00 EDT, [facility], 175, cm, 04/08/22 8:34:00 EDT, Height, 93, kg, 01/28/22 14:55:00 EDT, Dry Weight Start Date: 05/07/22 Status: Ordered Metoprolol Tartrate 50 mg oral tablet 1.5 tablet, By Mouth, 2 times a day, # 270 tablet, 1 Refills, Maintenance, 09/01/22 13:28:00 EST, [facility], 175, cm, 07/17/22 10:33:00 EST, Height, 93, kg, 01/28/22 14:55:00 EDT, Dry Weight Start Date: 09/01/22 Status: Ordered Nicotine 7 mg/24 hour patch 1 patch, Topically, Daily, # 30 patch, 0 Refills, Acute 09/26/22 8:00:00 EDT, 08/29/22 16:51:00 EST, Patch, [facility]/pharmacy #[id number], Partial fill upon patient request if the prescription is for a scheduleII opioid drug., 1 patch Topically Daily, 175, cm,... Start Date: 08/29/22 Stop Date: 09/26/22 Status: Ordered nitroglycerin 0.4 mg sublingual tablet See Instructions, DISSOLVE 1 UNDER TONGUE EVERY 5 MINUTES NEEDED FOR CHEST PAIN CALL MD AFTER TAKING 3 TABS IN TOTAL IN A DAY, # 100 tablet, 0 Refills, Maintenance, 12/31/21 17:21:00 EDT, [facility]/pharmacy #[id number], 175.2, cm, 12/18/21 14:10:00 EDT, Height... Start Date: 12/31/21 Status: Ordered NovoLOG FlexPen 100 units/mL injectable solution See Instructions, INJECT 0-18 UNITS SUBCUTANEOUSLY WITH MEALS FOR SLIDING SCALES, # 15 Unknown, 2 Refills, [facility], 175.2, cm, 05/27/21 11:26:00 EST, Height, 88.3, kg, 03/12/21 9:16:00 EDT, Dry Weight Start Date: 06/04/21 Status: Ordered Pen [place], 31 G x 5 mm BD Ultra [...] capsule, 2 Refills, Maintenance, 08/07/22 12:55:00EST, Capsule, [facility]/pharmacy #[id number], 175, cm, 07/17/22 10:33:00 EST, Height, 93, kg, 01/28/22 14:55:00EDT, Dry Weight Start Date: 08/07/22 Status: Ordered rosuvastatin 20 mg oral tablet 1 tablet, By Mouth, Daily, # 90 tablet, 1 Refills, Maintenance, 05/21/22 13:33:00 EST, [facility], 175, cm, 05/09/22 11:08:00 EDT, Height, 93, kg, 01/28/22 14:55:00 EDT, Dry Weight Start Date: 05/21/22 Status: Ordered SEROquel 100 mg oral tablet 100 mg, 1, tablet, By Mouth, 2 times a day, PRN, # 1 tablet, Refills 2, Tot. Refills 2, Maintenance, Anxiety, 09/21/19 10:41:00 EDT, Route to Pharmacy Electronically, [facility]/pharmacy #[id number], 172, cm, 09/05/19 16:17:00 EST, Height, [...] 9 Unknown, 1 Refills, 01/21/22 15:39:00 EDT, [facility]/pharmacy #[id number], 175.2, cm, 12/18/21 14:10:00 EDT, Height... [...] 04/08/22 8:34... Start Date: 04/08/22 Status: Ordered Vitamin D3 2000 intl units [...] 4, GFR 15-29 ml/min Confirmed Active ASHD; [place] 2012/stent circumflex vessel [...] mild to moderate. 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 524 weeks therapy with sofosbuvir/weight based ribavirin 36945 inferolateral stent bare metal circumflex 7DR Molddoverno [...] Team Personnel Name: Jeffrey Mccoy MD Position: [facility] Renal MD Member Role: Lifetime Consulting Physician Address: Address: [address] [place] [address] [facility] [place], [place] [address] Name: Kelly Butler NP Position: [facility] PCO Associate Professional Member Role: PCP Address: Address: [address] [place] [address] Name: Kristin Mckenzie Position: [facility] Outreach Member Role: Lifetime Consulting Physician Name: Prieto Tobin RN Position: [facility] RN Member Role: Primary Care Nurse Name: Jonn Hui DO Position: [facility] Renal MD Member Role: Lifetime Consulting Physician Address: Address: [address] [place], [place] [address] [place], [place] [address] Name: Luis Angel Stephen RN Position: [facility] RN Member Role: Primary Care Nurse Name: Tamie Baird RN Position: [facility] RN Member Role: Primary Care Nurse Care Team Related Persons Name: CARLOS A BORDEN Address: home [address] [place] [id number] [facility] Name: LEVI BORDEN Address: home [address] [facility] [place] [facility] [place] [address]
--- OUTSIDE RECORDS SUMMARY | 2024-06-01 11:54 | XMS_ITS | Continuity of Care Document ---
Author Organization [facility] Shawn Lazaro lt Address [address] [place] [address]- Care Team Providers Care Card Checker Name Role Phone Aylin HICKMAN, Ben Willis Primary Care Physician Encounter [facility] Date(s): 08/01/21 - 08/31/21 [facility] Adult [address] [place] [address]- Allergies, Adverse Reactions, Alerts Substance Reaction Severity [...] tablet, 5 Refills, Maintenance, 07/25/21 10:21:00 EST, [facility]/pharmacy#[id number], 175.2, cm, 06/07/21 9:51:00 [...] Refills, Maintenance, 01/23/21 11:08:00 EDT, CR Capsule, [facility]/pharmacy #[id number], 175.3, cm, 01/21/21 12:58:00 EDT, Height, 83.6, kg, 04/23/20 17:46:00EDT, Dry Weight Start Date: 01/23/21 Stop Date: 01/18/22 Status: Ordered cholecalciferol 2000 intl units oral capsule 1 capsule = 2,000 International_Units, By Mouth, Daily, # 30 capsule, 5 Refills, Maintenance, 05/15/21 13:02:00 EST, Capsule, [facility]/pharmacy #[id number], 175.2, cm, 03/18/21 10:48:00 EDT, Height, 88.3, kg, 03/12/21 9:16:00 EDT, Dry Weight Start Date: 05/15/21 Status: Ordered cloNIDine 0.2 mg oral tablet 0.2 mg, 1, tablet, By Mouth, 2 times a day, # 60 tablet, Refills 5, Tot. Refills 5, Maintenance, 06/24/21 12:51:00 EST, Route to Pharmacy Electronically, [facility]/pharmacy #[id number], 175.2, cm, 06/07/21 9:51:00 EST, Height, 88.3, kg, 03/12/21 9:16:00 EDT, Dry... Start Date: 06/24/21 Status: Ordered Daily Simone oral tablet 1 tablet, By Mouth, Daily, # 30 tablet, 5 Refills, Maintenance, 07/29/21 13:53:00 EST, Tablet, [facility]/pharmacy #[id number], 1 tablet By Mouth Daily,x30 days, 175.2, cm, 06/07/21 9:51:00 EST, Height, 88.3, kg,03/12/21 9:16:00 EDT, Dry Weight Start Date: 07/29/21 Stop Date: 01/25/22 Status: Ordered docusate sodium 100 mg oral capsule 1 capsule, By Mouth, 2 times a day, PRN NEEDED FOR CONSTIPATION, # 60 capsule, 5 Refills, Maintenance, 06/05/21 15:57:00 EST, [facility]/pharmacy #[id number], 175.2, cm, 05/27/21 11:26:00 EST, Height, 88.3, kg, 03/12/21 9:16:00 EDT, Dry Weight Start Date: 06/05/21 Status: Ordered folic acid 1 mg oral tablet 1, tablet, By Mouth, Daily, # 30 tablet, Refills 5, Tot. Refills 5, Maintenance, 07/25/21 15:59:00 EST, Route to Pharmacy Electronically, [facility]/pharmacy #[id number], 175.2, cm, 06/07/21 [...] tablet, 5 Refills, Maintenance, 06/05/21 15:57:00 EST, [facility]/pharmacy #[id number], 175.2, cm, 05/27/21 11:26:00 EST, Height, 88.3, kg, 03/12/21 9:16:00 EDT, Dry Weight Start Date: 06/05/21 Status: Ordered LaMICtal 100 mg oral tablet 100 mg, 1, tablet, By Mouth, 2 times a day, # 60 tablet, Refills 3, Tot. Refills 3, Maintenance, 01/21/19 11:25:36 EDT, Route to Pharmacy Electronically, [id number], [facility]/pharmacy #[id number] Start Date: 01/21/19 [...] 3 Refills, Maintenance, 06/24/21 16:13:00 EST, Tablet, [facility]/pharmacy #[id number], Partial fill upon patient request if the prescription is for a schedule II opioid drug., 175.2, cm, 06/07/21 9:51:00 EST, Height... Start Date: 06/24/21 Status: Ordered Metoprolol Tartrate 50 mg oral tablet See Instructions, TAKE 1 + 1/2 TABLETS BY MOUTH 2 TIMES A DAY, # 270 tablet, 0 Refills, 06/24/21 10:42:00 EST, [facility]/pharmacy #[id number], 175.2, cm, 06/07/21 9:51:00 EST, Height, 88.3, kg, 03/12/21 9:16:00 EDT, Dry Weight Start Date: 06/24/21 Status: Ordered nicotine 2 mg oral transmucosal lozenge See Instructions, USE 1 LOZENGE UP TO EVERY 1 HOUR NEEDED FOR 10 DAYS, # 162 lozenge, 0 Refills,[facility], 16, USE 1 LOZENGE UP TO EVERY 1 HOUR NEEDED FOR 10 DAYS, 175.2, cm, 07/31/21 11:20:00 EST, Height, 88.3, kg, 03/12/21 9:16:00 EDT,... Start Date: 08/29/21 Status: Ordered nitroglycerin 0.4 mg sublingual tablet [...] SLIDING SCALES, # 15 Unknown, 2 Refills, [facility], 175.2, cm, 05/27/21 11:26:00 EST, Height, 88.3, kg, 03/12/21 9:16:00 EDT, Dry Weight Start Date: 06/04/21 Status: Ordered Pen [place], 31 G x 5 mm BD Ultra [...] 5 Refills, Maintenance, 06/10/21 12:32:00 EST, Capsule, [facility]/pharmacy #[id number], 175.2, cm, 06/07/21 9:51:00 EST, Height, 88.3, kg, 03/12/21 9:16:00 EDT, Dry Weight Start Date: 06/10/21 Status: Ordered pregabalin 75 mg oral capsule 1 capsule = 75 mg, By Mouth, 2 times a day, # 60 capsule, 5 Refills, Maintenance, 06/07/21 13:14:00EST, Capsule, [facility]/pharmacy #[id number], 175.2, cm, 06/07/21 9:51:00 EST, Height, 88.3, kg, 03/12/21 9:16:00 EDT, Dry Weight Start Date: 06/07/21 Status: Ordered rosuvastatin 20 mg oral tablet 1 tablet, By Mouth, Daily, # 90 tablet, 1 Refills, Maintenance, 08/15/21 14:24:00 EST, [facility]/pharmacy#0843, 175.2, cm, 07/31/21 11:20:00 EST, Height, 88.3, kg, 03/12/21 9:16:00 EDT, Dry Weight Start Date: 08/15/21 Status: Ordered SEROquel 100 mg oral tablet 100 mg, 1, tablet, By Mouth, 2 times a day, # 60 tablet, Refills 2, Tot. Refills 2, Maintenance, 09/21/19 10:41:00 EDT, Route to Pharmacy Electronically, [facility]/pharmacy #[id number], 172, cm, 09/05/19 [...] # 9 Unknown, 1 Refills, [facility], 175.2, cm, 07/31/21 11:20:00 EST, Height, 88.3, [...] Active Glomerulonephritis,mesangial proliferative/fibrillary(Confirmed) 1, 2 Active ASHD; [place] 2012/stent circumfl ex vessel cath;abdelrahman 2018(Confirmed) 3 [...] Active Tubular adenoma of colon col onoscopy 2016/2021(Confirmed) 8, 9 12/12/15 Active Type 2 diabetes [...] 524 weeks therapy with sofosbuvir/weight based ribavirin 37093 inferolateral stent bare metal circumflex 7DR Marissa [...]
--- OUTSIDE RECORDS SUMMARY | 2024-06-01 11:54 | XMS_ITS | Continuity of Care Document ---
Author Organization [facility] Lazaro lt Address [address] [place] [address]- Care Team Providers Care Food Quality Technician Name Role Phone Carrie Kelly RIVERA Primary Care Physician [place] [facility]23 - 01/02/24 [facility] Adult [address] [place] [address]- Allergies, Adverse Reactions, Alerts Substance Reaction Severity Status Bee Stings Active Immunizations Given and Recorded Vaccine Date Status Refusal Reason tetanus/diphtheria/pertussis, acel(Tdap) 10/15/23 Recorded tetanus/diphtheria/pertussis, acel(Tdap) 07/28/11 Given SARS-CoV-2(COVID-19)mRNA-LNP vac(ids323) 05/08/23 Recorded pneumococcal 20-valent conjugate vaccine 1 [...] 02/03/23 Recorded zoster vaccine, inactivated 08/09/19 Recorded [id number] 12y+ bivalent booster vax 05/17/22 Recorded SARS-CoV-2 [...] adult vaccine 4 12/10/10 Given 1Result Comment: [id number] 2Result Comment: [id number] 3Admin Note: pt waited 10 mins post inj no adverse reaction noted.thierno kong 4Admin Note: PT WAITED 10 MIN WITH NO ADVERSE REACTION. MH Medications aspirin 81 mg oral delayed release tablet 1 tablet, By Mouth, Daily, # 90 tablet, 1 Refills, Maintenance, 06/02/23 11:42:00 EST, [facility]/pharmacy#[id number], 168, cm, 05/01/23 14:45:00 EDT, Height, 93, [...] tablet, 1 Refills, Maintenance, 06/30/23 7:20:00 EST, [facility] STORE [id number], 90, TAKE 1 TABLET BY MOUTH EVERY [...] Daily, # 90 capsule, 0 Refills, Maintenance, 11/10/23 22:03:00 EDT, [facility], 168, cm, 10/27/23 15:34:00 EDT, Height, 93, kg, 01/28/22 14:55:00 EDT, Dry Weight Start Date: 11/10/23 Status: Ordered folic acid 1 mg oral tablet 1, tablet, By Mouth, Daily, # 90 tablet, Refills 1, Tot. Refills 1, Maintenance, 07/03/23 10:01:00 EST, Route to Pharmacy Electronically, [facility]/pharmacy #[id number], 168, cm, 05/01/23 14:45:00 EDT, Height, [...] 01/21/19 11:25:36 EDT, Route to Pharmacy Electronically, [id number], [facility]/pharmacy #[id number] Start Date: 01/21/19 Stop Date: 05/21/19 Status: Ordered lamotrigine 100 mg oral tablet Refills 0, Maintenance, 05/01/23 15:28:00 EDT, Partial fill upon patient request if the prescription is for a schedule II opioid drug. Start Date: 05/01/23 Status: Ordered lisinopril 40 mg oral tablet 1 tablet, By Mouth, Daily, # 90 tablet, 1 Refills, Maintenance, 08/17/23 13:33:00 EST, [facility]/pharmacy#[id number], 168, cm, 07/23/23 15:05:00 EST, Height, 93, kg, 01/28/22 14:55:00 EDT, Dry Weight Start Date: 08/17/23 Status: Ordered Metoprolol Tartrate 50 mg oral tablet 1.5 tablet, By Mouth, 2 times a day, # 270 tablet, 1 Refills, Maintenance, 09/16/23 14:32:00 EDT, [facility]/pharmacy #[id number], 168, cm, 07/23/23 15:05:00 EST, Height, 93, kg, 01/28/22 14:55:00 EDT, Dry Weight Start Date: 09/16/23 Status: Ordered nitroglycerin 0.4 mg sublingual tablet See Instructions, DISSOLVE 1 UNDER TONGUE EVERY 5 MINUTES NEEDED FOR CHEST PAIN CALL MD AFTER TAKING 3 TABS IN TOTAL IN A DAY, # 100 tablet, 0 Refills, Maintenance, 10/03/22 15:53:00 EDT, [facility]/pharmacy #[id number], 175, cm, 09/17/22 13:59:00 EDT, Height,... Start Date: 10/03/22 Status: Ordered NovoLOG FlexPen 100 units/mL injectable solution See Instructions, INJECT 0-18 UNITS SUBCUTANEOUSLY WITH MEALS FOR SLIDING SCALES, # 15 Unknown, 2 Refills, 11/07/22 0:09:00 EDT, [facility]/pharmacy #[id number], 175, cm, 10/09/22 16:51:00 EDT, Height, 93, kg, 01/28/22 14:55:00 EDT, Dry Weight Start Date: 11/07/22 Status: Ordered Pen [place], 31 G x 5 mm BD Ultra [...] Daily, # 90 tablet, 0 Refills, Maintenance, 11/10/23 22:03:00 EDT, [facility], 168, cm, 10/27/23 15:34:00 EDT, Height, 93, kg, 01/28/22 14:55:00 EDT, Dry Weight Start Date: 11/10/23 Status: Ordered SEROquel 300 mg oral tablet [...] 4, GFR 15-29 ml/min Confirmed Active ASHD; [place] 2012/stent circumflex vessel cath;abdelrahman 2018 3 Confirmed [...] Active Multiple lung nodules LDCT Confirmed Active Persistent proteinuria- SEEING NEPHROLOGY Confirmed [...] mild to moderate. 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 524 weeks therapy with sofosbuvir/weight based ribavirin 47690 inferolateral stent bare metal circumflex 7DR Molddoverno [...] Team Personnel Name: Jeffrey Mccoy MD Position: [facility] Renal MD Member Role: Lifetime Consulting Physician Address: Address: [address] [place] [address] Dr [address] [facility] [place] [address]- Name: Kelly Butler NP Position: [facility] PCO Associate Professional Member Role: PCP Address: Address: [address] [place] [address]- Name: Kristin Mckenzie Position: [facility] Outreach Member Role: Lifetime Consulting Physician Name: Prieto Tobin RN Position: [facility] RN Member Role: Primary Care Nurse Name: Jonn Hui DO Position: [facility] Renal MD Member Role: Lifetime Consulting Physician Address: Address: [address] [place] [address] [address] [facility] [place] [place] [address] Name: Zafar CALVO, Luis Angel Rojas Position: [facility] RN Member Role: Primary Care Nurse Care Team Related Persons Name: CARLOS A BORDEN Address: home [address] [place] [address] Name: LEVI BORDEN Address: home [address] [place] [address]
--- OUTSIDE RECORDS SUMMARY | 2024-06-01 11:54 | XMS_ITS | Continuity of Care Document ---
Author Organization [facility] Nando Escobar Lazaro lt Address [address] [place] [address]- Care Team Providers Care Passenger Representative Name Role Phone Carrie OIL OPERATORKelly Primary Care Physician [phone] Encounter [facility] Date(s): 11/06/22 - 12/06/22 [facility] Adult [address] [place] [address]- Allergies, Adverse Reactions, Alerts Substance Reaction Severity [...] influenza virus vaccine, inactivated 04/16/10 Give n [id number] 12y+ bivalent booster vax 05/17/22 Recorded SARS-CoV-2 [...] 5 Refills, Maintenance, 08/15/22 10:27:00 EST, Tablet, [id number], 1 tablet By Mouth [...] capsule, 0 Refills, Maintenance, 10/24/22 10:10:00 EDT, [id number], 175, cm, 10/09/22 16:51:00 EDT, Height, 93, kg, 01/28/22 14:55:00 EDT, Dry Weight Start Date: 10/24/22 Status: Ordered docusate sodium 100 mg oral capsule 1 capsule, By Mouth, 2 times a day, PRN NEEDED FOR CONSTIPATION, # 60 capsule, 5 Refills, Maintenance, 07/18/22 11:59:00 EST, [facility]/pharmacy #[id number], 175, cm, 07/17/22 10:33:00 EST, Height, 93, kg, 01/28/22 14:55:00 EDT, Dry Weight Start Date: 07/18/22 Status: Ordered Flonase 50 mcg/inh nasal spray 1 sprays, Nares, Both, 2 times a day, # 16 Gm, 0 Refills, Maintenance, 09/05/22 9:15:00 EST, [place],[facility]/pharmacy #[id number], Partial fill upon patient request if the prescription is for a schedule II opioid drug., 1 sprays Nares, Both 2 times a day, 175, c... Start Date: 09/05/22 Status: Ordered folic acid 1 mg oral tablet 1, tablet, By Mouth, Daily, # 30 tablet, Refills 5, Tot. Refills 5, Maintenance, 08/15/22 10:27:00 EST, Route to Pharmacy Electronically, [facility]/pharmacy #[id number], 175, cm, 07/17/22 10:33:00 EST, Height, [...] 01/21/19 11:25:36 EDT, Route to Pharmacy Electronically, [id number], [facility]/pharmacy #[id number] Start Date: 01/21/19 Stop Date: 05/21/19 Status: Ordered lisinopril 40 mg oral tablet 1 tablet, By Mouth, Daily, # 90 tablet, 0 Refills, Maintenance, 10/24/22 10:11:00 EDT, [facility]/pharmacy#[id number], 175, cm, 10/09/22 16:51:00 EDT, Height, 93, kg, 01/28/22 14:55:00 EDT, Dry Weight Start Date: 10/24/22 Status: Ordered Metoprolol Tartrate 50 mg oral tablet 1.5 tablet, By Mouth, 2 times a day, # 270 tablet, 1 Refills, Maintenance, 09/01/22 13:28:00 EST, [facility] STORE 92224, 175, cm, 07/17/22 10:33:00 EST, Height, 93, kg, 01/28/22 14:55:00 EDT, Dry Weight Start Date: 09/01/22 Status: Ordered Nicotine 7 mg/24 hour patch 1 patch, Topically, Daily, # 30 patch, 0 Refills, Maintenance, 11/17/22 11:45:00 EDT, Patch, [facility]/pharmacy #[id number], Partial fill upon patient [...] tablet, 0 Refills, Maintenance, 10/03/22 15:53:00 EDT, [facility]/pharmacy #[id number], 175, cm, 09/17/22 13:59:00 EDT, Height,... Start Date: 10/03/22 Status: Ordered NovoLOG FlexPen 100 units/mL injectable solution See Instructions, INJECT 0-18 UNITS SUBCUTANEOUSLY WITH MEALS FOR SLIDING SCALES, # 15 Unknown, 2 Refills, 11/07/22 0:09:00 EDT, [facility]/pharmacy #[id number], 175, cm, 10/09/22 16:51:00 EDT, Height, 93, kg, 01/28/22 14:55:00 EDT, Dry Weight Start Date: 11/07/22 Status: Ordered Pen [place], 31 G x 5 mm BD Ultra [...] capsule, 2 Refills, Maintenance, 08/07/22 12:55:00EST, Capsule, [facility]/pharmacy #[id number], 175, cm, 07/17/22 10:33:00 EST, Height, 93, kg, 01/28/22 14:55:00EDT, Dry Weight Start Date: 08/07/22 Status: Ordered rosuvastatin 20 mg oral tablet 1 tablet, By Mouth, Daily, # 90 tablet, 1 Refills, Maintenance, 05/21/22 13:33:00 EST, [id number], 175, cm, 05/09/22 11:08:00 EDT, Height, 93, kg, 01/28/22 14:55:00 EDT, Dry Weight Start Date: 05/21/22 Status: Ordered Senna 8.6 mg oral tablet 1 or 2 tablets, By Mouth, Daily at bedtime, PRN, # 60 tablet, Refills 5, Tot. Refills 5, Maintenance, Constipation, 11/03/22 15:04:00 EDT, Route to Pharmacy Electronically, [facility]/pharmacy #[id number] Tablet,Partial fill upon patient request if the prescripti... Start Date: 11/03/22 Status: Ordered SEROquel 100 mg oral tablet 100 mg, 1, tablet, By Mouth, 2 times a day, PRN, # 1 tablet, Refills 2, Tot. Refills 2, Maintenance, Anxiety, 09/21/19 10:41:00 EDT, Route to Pharmacy Electronically, [facility]/pharmacy #[id number], 172, cm, 09/05/19 16:17:00 [...] 9 Unknown, 1 Refills, 01/21/22 15:39:00 EDT, [facility]/pharmacy #[id number], 175.2, cm, 12/18/21 14:10:00 EDT, Height... Start Date: 01/21/22 Status: Ordered Trulicity Pen 0.75 mg/0.5 mL subcutaneous solution 0.5 mL = 0.75 mg, Subcutaneous Injection, Every week, # 2.5 mL, 2 Refills, Maintenance, 04/08/22 9:12:00 EDT, Solution, [facility]/pharmacy #[id number], Partial fill upon patient [...] 4, GFR 15-29 ml/min Confirmed Active ASHD; [place] 2012/stent circumflex vessel cath;abdelrahman 2018 3 Confirmed [...] mild to moderate. 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 524 weeks therapy with sofosbuvir/weight based ribavirin 91441 inferolateral stent bare metal circumflex 7DR Marissa [...] Team Personnel Name: Jeffrey Mccoy MD Position: [facility] Renal MD Member Role: Lifetime Consulting Physician Address: Address: [address] [place] [address] [facility] [place] [address]- Name: Kelly Butler NP Position: [facility] PCO Associate Professional Member Role: PCP Address: Address: [address] [place] [address]- Name: Kristin Mckenzie Position: [facility] Outreach Member Role: Lifetime Consulting Physician Name: Prieto Tobin RN Position: S RN Member Role: Primary Care Nurse Name: Jonn Hui DO Position: [facility] Renal MD Member Role: Lifetime Consulting Physician Address: Address: [address] [place], [place] [address] [place] [address]- Name: Luis Angel Stephen RN Position: [facility] RN Member Role: Primary Care Nurse Name: Tamie Baird RN Position: S RN Member Role: Primary Care Nurse Care Team Related Persons Name: CARLOS A BORDEN Address: [address] [place] [address] Name: LEVI BORDEN Address: home [address] [place] [address]
--- OUTSIDE RECORDS SUMMARY | 2024-06-01 11:54 | XMS_ITS | Continuity of Care Document ---
Author Organization [facility] Shawn Lazaro lt Address [address] [place] [address]- Care Team Providers Care Clinical Training Coordinator Name Role Phone Carrie Kelly RIVERA Primary Care Physician [facility]counter [facility] Date(s): 05/07/23 - 06/06/23 [facility] Adult [address] [place] [address]- Allergies, Adverse Reactions, Alerts Substance Reaction Severity Status Bee Stings Active Immunizations Given and Recorded Vaccine Date Status Refusal Reason SARS-CoV-2(COVID-19)mRNA-LNP vac(xox482) 05/08/23 Recorded pneumococcal 20-valent conjugate vaccine 1 [...] 02/03/23 Recorded zoster vaccine, inactivated 08/09/19 Recorded [id number] 12y+ bivalent booster vax 05/17/22 Recorded SARS-CoV-2 [...] adult vaccine 4 12/10/10 Given 1Result Comment: [id number] 2Result Comment: [id number] 3Admin Note: pt waited 10 mins post inj no adverse reaction noted.j a 4Admin Note: PT WAITED 10 MIN WITH NO ADVERSE REACTION. MH Medications aspirin 81 mg oral delayed release tablet 1 tablet, By Mouth, Daily, # 90 tablet, 1 Refills, Maintenance, 06/02/23 11:42:00 EST, [facility]/pharmacy#[id number], 168, cm, 05/01/23 14:45:00 EDT, Height, 93, [...] Refills, Maintenance, 01/07/23 21:36:00 EDT, [facility], 90, TAKE 1 TABLET BY MOUTH EVERY [...] capsule, 0 Refills, Maintenance, 03/31/23 14:24:00 EDT, [facility]/pharmacy #[id number], 175, cm, 10/09/22 16:51:00 EDT, Height, 93, kg, 01/28/22 14:55:00 EDT, Dry Weight Start Date: 03/31/23 Status: Ordered folic acid 1 mg oral tablet 1, tablet, By Mouth, Daily, # 90 tablet, Refills 1, Tot. Refills 1, Maintenance, 01/08/23 13:00:00 EDT, Route to Pharmacy Electronically, [facility]/pharmacy #[id number], 175, cm, 10/09/22 16:51:00 EDT, Height, [...] 01/21/19 11:25:36 EDT, Route to Pharmacy Electronically, [id number], [facility]/pharmacy #[id number] Start Date: 01/21/19 Stop Date: 05/21/19 Status: Ordered lamotrigine 100 mg oral tablet Refills 0, Maintenance, 05/01/23 15:28:00 EDT, Partial fill upon patient request if the prescription is for a schedule II opioid drug. Start Date: 05/01/23 Status: Ordered lisinopril 40 mg oral tablet 1 tablet, By Mouth, Daily, # 90 tablet, 0 Refills, Maintenance, 04/21/23 10:51:00 EDT, [facility], 175, cm, 10/09/22 16:51:00 EDT, Height, 93, [...] Refills, Maintenance, 02/20/23 7:15:00 EDT, [facility], 175, cm, 10/09/22 16:51:00 EDT, Height, 93, [...] tablet, 0 Refills, Maintenance, 10/03/22 15:53:00 EDT, [facility]/pharmacy #[id number], 175, cm, 09/17/22 13:59:00 EDT, Height,... Start Date: 10/03/22 Status: Ordered NovoLOG FlexPen 100 units/mL injectable solution See Instructions, INJECT 0-18 UNITS SUBCUTANEOUSLY WITH MEALS FOR SLIDING SCALES, # 15 Unknown, 2 Refills, 11/07/22 0:09:00 EDT, [facility]/pharmacy #[id number], 175, cm, 10/09/22 16:51:00 EDT, Height, 93, kg, 01/28/22 14:55:00 EDT, Dry Weight Start Date: 11/07/22 Status: Ordered Pen [place], 31 G x 5 mm BD Ultra [...] mg, By Mouth, Daily, # 30 capsule, 0 Refills, Maintenance, 06/02/23 14:17:00 EST, [facility]/pharmacy #[id number], Partial fill upon patient request if the prescription is for a schedule II opioid drug., 168, cm, 05/01/23 14:45:00 EDT, Height, 93, k... Start Date: 06/02/23 Status: Ordered rosuvastatin 20 mg oral tablet 1 tablet, By Mouth, Daily, # 90 tablet, 1 Refills, Maintenance, 03/29/23 14:43:00 EDT, [facility], 175, cm, 10/09/22 16:51:00 EDT, Height, 93, [...] 4, GFR 15-29 ml/min Confirmed Active ASHD; [place] 2012/stent circumflex vessel cath;abdelrahman 2018 3 Confirmed [...] mild to moderate. 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 524 weeks therapy with sofosbuvir/weight based ribavirin 49945 inferolateral stent bare metal circumflex 7DR Marissa [...] Team Personnel Name: Jeffrey Mccoy MD Position: [facility] Renal MD Member Role: Lifetime Consulting Physician Address: Address: [address] [place] [address] [facility] [place] [address]- Name: Kelly Butler NP Position: [facility] PCO Associate Professional Member Role: PCP Address: Address: [address] [place] [address]- Name: Kristin Mckenzie Position: [facility] Outreach Member Role: Lifetime Consulting Physician Name: Prieto Tobin RN Position: [facility] RN Member Role: Primary Care Nurse Name: Jonn Hui DO Position: [facility] Renal MD Member Role: Lifetime Consulting Physician Address: Address: [address] [place], [place] [address]E [facility] [place] [address]- Name: Zafar CALVO, Luis Angel Rojas Position: [facility] RN Member Role: Primary Care Nurse Care Team Related Persons Name: CARLOS A BORDEN Address: home [address] [place] [address] Name: LEVI BORDEN Address: home [address] [place] [address]
--- OUTSIDE RECORDS SUMMARY | 2024-06-01 11:54 | XMS_ITS | Continuity of Care Document ---
Author Organization [facility] Shawn Lazaro lt Address [address] [place] [address]- Care Team Providers Care Factorer Name Role Phone Carrie Kelly RIVERA Primary Care Physician [phone] [facility]counter [facility] Date(s): 01/12/24 - 02/11/24 [facility] Adult [address] [place] [address]- Allergies, Adverse Reactions, Alerts Substance Reaction Severity Status Bee Stings Active Immunizations Given and Recorded Vaccine Date Status Refusal Reason SARS-CoV-2(COVID-19)mRNA-LNP vac(qci969) 12/31/23 Recorded SARS-CoV-2(COVID-19)mRNA-LNP vac([id number]) 05/08/23 Recorded tetanus/diphtheria/pertussis, acel(Tdap) 10/15/23 Recorded tetanus/diphtheria/pertussis, [...] 02/03/23 Recorded zoster vaccine, inactivated 08/09/19 Recorded [id number] 12y+ bivalent booster vax 05/17/22 Recorded SARS-CoV-2 [...] adult vaccine 4 12/10/10 Given 1Result Comment: [id number] 2Result Comment: [id number] 3Admin Note: pt waited 10 mins post [...] 02/02/24 15:26:00 EDT, Route to Pharmacy Electronically, [facility]/pharmacy #... Start Date: 02/02/24 Status: Ordered Aerochamber See Instructions, # 1 each, Maintenance, always use with inhaler, 02/02/24 15:25:00 EDT, Supply, 168, cm, 02/02/24 14:20:00 EDT, Height Start Date: 02/02/24 Status: Ordered Albuterol (Eqv-Ventolin HFA) 90 mcg/inh inhalation aerosol 2 puffs, Inhalation, Every 4 hours, PRN cough, SOB, wheeze, # 18 Gm, 0 Refills, Maintenance, 02/02/24 15:25:00 EDT, [id number], with dose counter. any albuterol inhaler covered by insurance is fine., 2 puffs Inhalation Every 4 hours,PRN:cough,... Start Date: 02/02/24 Status: Ordered aspirin 81 mg oral delayed [...] 13:11:38 EDT Start Date: 12/27/15 Status: Ordered benzonatate 100 mg oral capsule See Instructions, PRN Cough, 1-2 capsule(s) By Mouth up to 3 times a day prn cough (Max 600 mg in r71-tomh period), # 30 capsule, 0 Refills, Maintenance, 02/05/24 12:47:00 EDT, Capsule, [facility], Partial fill upon patient request if the pr... Start Date: 02/05/24 Status: Ordered D3 50 mcg (2000 intl units) oral capsule 1 capsule, By Mouth, Daily, # 90 capsule, 0 Refills, Maintenance, 12/09/23 14:09:00 EDT, [id number], 168, cm, 10/27/23 15:34:00 EDT, Height, 93, kg, 01/28/22 14:55:00 EDT, Dry Weight Start Date: 12/09/23 Status: Ordered Daily Simone oral tablet 1 tablet, By Mouth, Daily, # 90 tablet, 1 Refills, Maintenance, 01/25/24 16:01:00 EDT, [facility], 90, 1 tablet By Mouth Daily, 168, [...] EDT, Height,... Start Date: 01/11/24 Status: Ordered DilTIAZem (Eqv-Cardizem CD) 180 mg/24 hours oral capsule, extended release 1 capsule, By Mouth, Daily, # 90 capsule, 0 Refills, Maintenance, 11/10/23 22:03:00 EDT, [facility], 168, cm, 10/27/23 15:34:00 EDT, Height, 93, kg, 01/28/22 14:55:00 EDT, Dry Weight Start Date: 11/10/23 Status: Ordered folic acid 1 mg oral tablet 1, tablet, By Mouth, Daily, # 90 tablet, Refills 1, Tot. Refills 1, Maintenance, 07/03/23 10:01:00 EST, Route to Pharmacy Electronically, [facility]/pharmacy #[id number], 168, cm, 05/01/23 14:45:00 EDT, [...] 01/21/19 11:25:36 EDT, Route to Pharmacy Electronically, [id number], [facility]/pharmacy #[id number] Start Date: 01/21/19 Stop Date: 05/21/19 Status: Ordered lisinopril 40 mg oral tablet 1 tablet, By Mouth, Daily, # 90 tablet, 1 Refills, Maintenance, 01/26/24 9:20:00 EDT, [facility] STORE 65961, 168, cm, 01/11/24 14:42:00 EDT, Height, 93, kg, 01/28/22 14:55:00 EDT, Dry Weight Start Date: 01/26/24 Status: Ordered methylphenidate 5 mg oral tablet TAKE 1 TABLET BY MOUTH THREE TIMES A DAY Start Date: 01/11/24 Status: Ordered Metoprolol Tartrate 50 mg oral tablet 1.5 tablet, By Mouth, 2 times a day, # 270 tablet, 1 Refills, Maintenance, 09/16/23 14:32:00 EDT, [facility]/pharmacy #0843, 168, cm, 07/23/23 15:05:00 EST, Height, 93, kg, 01/28/22 14:55:00 EDT, Dry Weight Start Date: 09/16/23 Status: Ordered nitroglycerin 0.4 mg sublingual tablet See Instructions, DISSOLVE 1 UNDER TONGUE EVERY 5 MINUTES NEEDED FOR CHEST PAIN CALL MD AFTER TAKING 3 TABS IN TOTAL IN A DAY, # 100 tablet, 0 Refills, Maintenance, 10/03/22 15:53:00 EDT, [facility]/pharmacy #[id number], 175, cm, 09/17/22 13:59:00 EDT, Height,... Start Date: 10/03/22 Status: Ordered NovoLOG FlexPen 100 units/mL injectable solution See Instructions, INJECT 0-18 UNITS SUBCUTANEOUSLY WITH MEALS FOR SLIDING SCALES, # 15 Unknown, 2 Refills, 01/12/24 14:36:00 EDT, [facility]/pharmacy #[id number], MAX DAILY DOSE 54 UNITS, [...] mL, 0 Refills, Maintenance, 02/02/24 15:28:00 EDT, [place], [facility], Partial fill upon patient... Start Date: 02/02/24 Status: Ordered Pen [place], 31 G x 5 mm BD Ultra [...] Refills, Maintenance, 02/04/24 16:39:00 EDT, [facility], 168, cm, 02/03/24 10:41:00 EDT, Height Start [...] 524 weeks therapy with sofosbuvir/weight based ribavirin 77454 inferolateral stent bare metal circumflex 7DR Molddoverno [...] Team Personnel Name: Jeffrey Mccoy MD Position: [facility] Renal MD Member Role: Lifetime Consulting Physician Address: Address: [address] [place] [address] [address] [facility] [place], [place] [address] Name: Kelly Butler NP Position: [facility] PCO Associate Professional Member Role: PCP Address: Address: [address] [place] [address]- Name: Kristin Mckenzie Position: [facility] Outreach Member Role: Lifetime Consulting Physician Name: Prieto Tobin RN Position: [facility] RN Member Role: Primary Care Nurse Name: Jonn Hui DO Position: [facility] Renal MD Member Role: Lifetime Consulting Physician Address: Address: [address] [place], [place] [address] [place], [place] [address] Name: Zafar CALVO, Luis Angel Rojas Position: [facility] RN Member Role: Primary Care Nurse Care Team Related Persons Name: CARLOS A BORDEN Address: home [address] [place] [address] [place] Name: LEVI BORDEN Address: [address] [place] [address]
--- OUTSIDE RECORDS SUMMARY | 2024-06-01 11:54 | XMS_ITS | Continuity of Care Document ---
Author Organization [facility] Neurosurger y Address [address] [place] [address] Joana powers, [address] [place] [address]- Care Team Providers Care Nurse'S Aides Teacher Name Role Phone Carrie COMPOSITION MIXERKelly Primary Care Physician [facility]counter [facility] Date(s): 10/08/23 - 11/07/[address] [place], [place] [address] Allergies, Adverse Reactions, Alerts Substance Reaction Severity Status Bee Stings Active Immunizations Given and Recorded Vaccine Date Status Refusal Reason tetanus/diphtheria/pertussis, acel(Tdap) 10/15/23 Recorded tetanus/diphtheria/pertussis, acel(Tdap) 07/28/11 Given SARS-CoV-2(COVID-19)mRNA-LNP vac(mom316) 05/08/23 Recorded pneumococcal 20-valent conjugate vaccine 1 [...] 02/03/23 Recorded zoster vaccine, inactivated 08/09/19 Recorded [id number] 12y+ bivalent booster vax 05/17/22 Recorded SARS-CoV-2 [...] adult vaccine 4 12/10/10 Given 1Result Comment: [id number] 2Result Comment: [id number] 3Admin Note: pt waited 10 mins post inj no adverse reaction noted.thierno kong 4Admin Note: PT WAITED 10 MIN WITH NO ADVERSE REACTION. Medications aspirin 81 mg oral delayed release tablet 1 tablet, By Mouth, Daily, # 90 tablet, 1 Refills, Maintenance, 06/02/23 11:42:00 EST, [facility]/pharmacy#[id number], 168, cm, 05/01/23 14:45:00 EDT, Height, 93, [...] capsule, 1 Refills, Maintenance, 06/30/23 7:20:00 EST, [id number], 168, cm, 05/01/23 14:45:00 EDT, Height, 93, kg, 01/28/22 14:55:00 EDT, Dry Weight Start Date: 06/30/23 Status: Ordered Daily Simone oral tablet 1 tablet, By Mouth, Daily, # 90 tablet, 1 Refills, Maintenance, 06/30/23 7:20:00 EST, [id number], 90, TAKE 1 TABLET BY MOUTH EVERY [...] capsule, 0 Refills, Maintenance, 06/26/23 6:50:00 EST, [facility] ST[facility] [id number], 168, cm, 05/01/23 14:45:00 EDT, Height, 93, kg, 01/28/22 14:55:00 EDT, Dry Weight Start Date: 06/26/23 Status: Ordered folic acid 1 mg oral tablet 1, tablet, By Mouth, Daily, # 90 tablet, Refills 1, Tot. Refills 1, Maintenance, 07/03/23 10:01:00 EST, Route to Pharmacy Electronically, [facility]/pharmacy #[id number], 168, cm, 05/01/23 14:45:00 EDT, [...] 01/21/19 11:25:36 EDT, Route to Pharmacy Electronically, [id number], [facility]/pharmacy #[id number] Start Date: 01/21/19 Stop Date: 05/21/19 Status: Ordered lamotrigine 100 mg oral tablet Refills 0, Maintenance, 05/01/23 15:28:00 EDT, Partial fill upon patient request if the prescription is for a schedule II opioid drug. Start Date: 05/01/23 Status: Ordered lisinopril 40 mg oral tablet 1 tablet, By Mouth, Daily, # 90 tablet, 1 Refills, Maintenance, 08/17/23 13:33:00 EST, [facility]/pharmacy#[id number], 168, cm, 07/23/23 15:05:00 EST, Height, 93, kg, 01/28/22 14:55:00 EDT, Dry Weight Start Date: 08/17/23 Status: Ordered Metoprolol Tartrate 50 mg oral tablet 1.5 tablet, By Mouth, 2 times a day, # 270 tablet, 1 Refills, Maintenance, 09/16/23 14:32:00 EDT, [facility]/pharmacy #[id number], 168, cm, 07/23/23 15:05:00 EST, Height, 93, kg, 01/28/22 14:55:00 EDT, Dry Weight Start Date: 09/16/23 Status: Ordered nitroglycerin 0.4 mg sublingual tablet See Instructions, DISSOLVE 1 UNDER TONGUE EVERY 5 MINUTES NEEDED FOR CHEST PAIN CALL MD AFTER TAKING 3 TABS IN TOTAL IN A DAY, # 100 tablet, 0 Refills, Maintenance, 10/03/22 15:53:00 EDT, [facility]/pharmacy #[id number], 175, cm, 09/17/22 13:59:00 EDT, Height,... Start Date: 10/03/22 Status: Ordered NovoLOG FlexPen 100 units/mL injectable solution See Instructions, INJECT 0-18 UNITS SUBCUTANEOUSLY WITH MEALS FOR SLIDING SCALES, # 15 Unknown, 2 Refills, 11/07/22 0:09:00 EDT, [facility]/pharmacy #[id number], 175, cm, 10/09/22 16:51:00 EDT, Height, 93, kg, 01/28/22 14:55:00 EDT, Dry Weight Start Date: 11/07/22 Status: Ordered Pen [place], 31 G x 5 mm BD Ultra [...] Refills, Maintenance, 03/29/23 14:43:00 EDT, [facility], 175, cm, 10/09/22 16:51:00 EDT, Height, 93, [...] mild to moderate. 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 524 weeks therapy with sofosbuvir/weight based ribavirin 56902 inferolateral stent bare metal circumflex 7DR Moldverno [...] Team Personnel Name: Jeffrey Mccoy MD Position: [facility] Renal MD Member Role: Lifetime Consulting Physician Address: Address: [address] [place] [address] [address] [facility] [place] [address]- Name: Kelly Butler NP Position: [facility] PCO Associate Professional Member Role: PCP Address: Address: [address] [place] [id number]- Name: Kristin Mckenzie Position: [facility] Outreach Member Role: Lifetime Consulting Physician Name: Prieto Tobin RN Position: [facility] RN Member Role: Primary Care Nurse Name: Jonn Hui DO Position: [facility] Renal MD Member Role: Lifetime Consulting Physician Address: Address: [address] [place] [address] [address] [facility] [place], [place] [address] Name: Zafar CALVO, Luis Angel Rojas Position: [facility] RN Member Role: Primary Care Nurse Care Team Related Persons Name: CARLOS A BORDEN Address: home [address] [place] [address] Name: LEVI BORDEN Address: home [address] [place] [address]
--- OUTSIDE RECORDS SUMMARY | 2024-06-01 11:54 | XMS_ITS | Continuity of Care Document ---
Author Organization [facility] Address [address] [place] [id number]- Support Name Relationship Address Phone SUHA, CARLOS [...] Unknown Unav ailable Care Team Providers Care Gas Derrick Operator Name Role Phone Carrie MANAGER EMPLOYMENT, Kelly Lopez Primary Care Physician Encounter [facility] Date(s): 04/28/24 - 05/28/24 [facility] Adult [address] [place] [address]- Encounter Type: Triage Allergies, Adverse Reactions, Alerts [...] virus vaccine, inactivated 04/16/10 Give n SARS-CoV-2(COVID-19)mRNA-LNP vac(sck691) 12/31/23 Recorded SARS-CoV-2(COVID-19)mRNA-LNP vac(vub215) 05/08/23 Recorded tetanus/diphtheria/pertussis, acel(Tdap) 10/15/23 Recorded tetanus/diphtheria/pertussis, acel(Tdap) 07/28/11 Given pneumococcal 20-valent conjugate vaccine 3 05/01/23 Given zoster vaccine, inactivated 02/03/23 Recorded zoster vaccine, inactivated 08/09/19 Recorded [id number] 12y+ bivalent booster vax 05/17/22 Recorded SARS-CoV-2 [...] 12/10/10 Given 1Result Comment[facility] Comment: [id number] 3Result Comment: [id number] 4Admin Note: pt waited 10 mins post inj no adverse reaction noted.j a 5Admin Note: PT WAITED 10 MIN WITH NO ADVERSE REACTION. Medications albuterol 90 mcg/inh inhalation powder 1 puffs, Inhalation, Every 6 hours, PRN Wheezing/Shortness of Breath, # 1 each, 0 Refills, Maintenance, 02/15/24 1:38:00 PM EDT, Powder, [facility]/pharmacy #[id number], Partial fill upon patient request [...] 11:59:00 AM EDT, Route to Pharmacy Electronically, [facility]/pharmacy #[id number], Partial fill upon patient request if the prescription is for a schedule II opioid drug., 168, cm, 02/15/24 13:43:00 EDT, Height Start Date: 03/11/24 Stop Date: 09/07/24 Status: Ordered Quantity: 30.0 Unit: tablet Repeat number: 6 aspirin 81 mg oral delayed release tablet 1 tablet, By Mouth, Daily, # 90 tablet, 1 Refills, Maintenance, 01/25/24 9:53:00 PM EDT, [facility]/pharmacy #[id number], 168, cm, 01/11/24 14:42:00 EDT, Height, [...] 2:32:00 PM EDT, Route to Pharmacy Electronically, [facility]/pharmacy #[id number], Partial fill upon patient request [...] 11:18:00 AM EDT, Route to Pharmacy Electronically, [facility]/pharmacy #[id number], Partial fill upon patient request [...] 0 Refills, Maintenance, 02/15/24 1:39:00 PM EDT, [facility]/pharmacy #[id number], Partial fill upon patient request [...] 02/17/24 7:23:00 AMEDT, Route to Pharmacy Electronically, [facility]/pharmacy #[id number], 168, cm, 02/15/24 13:43:00 EDT, [...] 11:25:36 AM EDT, Route to Pharmacy Electronically, [facility]/pharmacy #[id number] Start Date: 01/21/19 Stop Date: 05/21/19 Status: Ordered Quantity: 60.0 Unit: tablet Repeat number: 4 lisinopril 10 mg oral tablet 10 mg, 1, tablet, By Mouth, Daily, # 90 tablet, Refills 0, Tot. Refills 0, Maintenance, 04/19/24 9:02:00 AM EDT, Route to Pharmacy Electronically, [facility]/pharmacy #[id number], 168, cm, 04/15/24 10:23:00 EDT, Height [...] 0 Refills, Maintenance, 03/17/24 2:24:00 PM EDT, [facility]/pharmacy #[id number], 168, cm, 03/17/24 9:46:00 EDT, Height Start Date: 03/17/24 Status: Ordered Quantity: 100.0 Unit: tablet Repeat number: 1 nitroglycerin 0.4 mg sublingual tablet See Instructions, DISSOLVE 1 UNDER TONGUE EVERY 5 MINUTES NEEDED FOR CHEST PAIN CALL MD AFTER TAKING 3 TABS IN TOTAL IN A DAY, # 100 tablet, 0 Refills, Maintenance, 10/03/22 3:53:00 PM EDT, [facility]/pharmacy #[id number], 175, cm, 09/17/22 13:59:00 EDT, Height, 93, kg, 01/28/22 14:55:00 EDT, Dry Weight Start Date: 10/03/22 Status: Ordered Quantity: 100.0 Unit: tablet Repeat number: 1 NovoLOG FlexPen 100 units/mL injectable solution See Instructions, INJECT 0-18 UNITS SUBCUTANEOUSLY WITH MEALS FOR SLIDING SCALES, # 15 Unknown, 2 Refills, 01/12/24 2:36:00 PM EDT, [facility]/pharmacy #[id number], MAX DAILY DOSE 54 UNITS, [...] 0 Refills, Maintenance, 02/02/24 3:28:00 PM EDT, [place], [facility]/pharmacy #[id number], Partial fill upon patient request if the prescription is for a schedule II opioid drug., 2 sprays Nares, Both 2 times a day,PRN:nasal/sinus congestion,Instr:Do not use more than twice a day. Do not use for more than 3 days in a row, 168, cm, 02/02/24 14:20:00 EDT, Height Start Date: 02/02/24 Status: Ordered Quantity: 15.0 Unit: mL Repeat number: 1 Pen [place], 31 G x 5 mm BD Ultra [...] 1 Refills, Maintenance, 05/10/24 12:39:00 PM EST, [facility]/pharmacy #[id number], rx resent 05/10/24, 168, cm, 04/19/24 [...] 0 Refills, Maintenance, 05/23/24 9:50:00 AM EST, [facility], 168, cm, 04/19/24 14:01:00 EDT, Height Start [...] 524 weeks therapy with sofosbuvir/weight based ribavirin 12426 inferolateral stent bare metal circumflex 7DR Molddoverno [...] Team Personnel Name: Jeffrey Mccoy MD Position: [facility] Renal MD Member Role: Lifetime Consulting Physician Address: [address] [place] [address] [address] [facility] [place] [address]- Telecom: Name: Kelly Butler NP Position: [facility] PCO Associate Professional Member Role: PCP Address: [address] [place] [address]- Telecom: Name: Kristin Mckenzie Position: [facility] Outreach Member Role: Lifetime Consulting Physician Name: Fortunato Sin RN Position: [facility] RN Member Role: Primary Care Nurse Name: Nury Watts RN Position: [facility] RN Member Role: Primary Care Nurse Name: Riky Mena NP Position: [facility] Associate Professional Member Role: Lifetime Consulting Provider Address: [address] [place], [place] [address] [place] [address]- Telecom: Name: Prieto Tobin RN Position: S RN Member Role: Primary Care Nurse Name: Ashleigh Reynoso RN Position: S RN Member Role: Primary Care Nurse Name: Jonn Hui DO Position: [facility] Renal MD Member Role: Lifetime Consulting Physician Address: [address] [place], [place] [address] [address] Telecom: Name: Luis Angel Stephen RN Position: S RN Member Role: Primary Care Nurse Name: Brandan Nogueira RN Position: S RN Member Role: Primary Care Nurse Care Team Related Persons Name: CARLOS A BORDEN Name: LEVI BORDEN Insurance Providers Guarantor name: BRITTANY BORDEN Health Plan Information #: 1 Payer: MEDICARE PART B OUTPT Member Number: NA Policy Number: NA Group Number: NA Health Plan Information #: 2 Payer: [facility] Member Number: NA Policy Number: NA Group Number: NA
--- OUTSIDE RECORDS SUMMARY | 2024-06-01 11:54 | XMS_ITS | Continuity of Care Document ---
Author Organization [facility] Lazaro lt Address [address] [place] [address]- Care Team Providers Care Strapping Machine Tender Name Role Phone Aylin HICKMAN, Ben Willis Primary Care Physician [facility] Date(s): 03/08/20 - 04/07/20 [facility] Adult [address] [place] [address]- [facility] Allergies, Adverse Reactions, Alerts Substance Reaction Severity [...] 10:48:07 EST, Aerosol, Route to Pharmacy Electronically, [id number], [facility]/pharmacy #[id number], 180, cm, 06/17/19 10:36:11 EST, Height Start Date: 06/17/19 Status: Ordered aspirin 81 mg oral tablet 1 tablet = 81 mg, By Mouth, Daily, # 30 tablet, 11 Refills, Maintenance, 09/03/19 14:22:00 EST, Tablet, [facility]/pharmacy #[id number], 180, cm, 08/01/19 10:43:00 EST, [...] Refills, Maintenance, 01/02/20 15:47:00 EDT, CR Capsule, [facility]/pharmacy #[id number], 172, cm, 12/14/19 8:02:00 EDT, Height, 97.8, kg, 08/11/19 5:24:00 EST, Dry Weight Start Date: 01/02/20 Stop Date: 12/27/20 Status: Ordered cholecalciferol 2000 intl units oral capsule 1 capsule = 2,000 International_Units, By Mouth, Daily, # 30 capsule, 5 Refills, Maintenance, 11/02/19 10:15:00 EDT, Capsule, [facility]/pharmacy #[id number], 172, cm, 09/05/19 16:17:00 EST, Height, 97.8, kg, 08/11/19 5:24:00 EST, Dry Weight Start Date: 11/02/19 Status: Ordered cloNIDine 0.2 mg oral tablet 0.2 mg, 1, tablet, By Mouth, 2 times a day, # 60 tablet, Refills 2, Tot. Refills 2, Maintenance, 03/08/20 16:50:00 EDT, Route to Pharmacy Electronically, [facility]/pharmacy #[id number], 172, cm, 12/14/19 8:02:00EDT, Height, 97.8, kg, 08/11/19 5:24:00 EST, Dry We... Start Date: 03/08/20 Status: Ordered Colace sodium 100 mg oral capsule 100 mg, 1, capsule, By Mouth, 2 times a day, PRN, # 60 capsule, Refills 5, Tot. Refills 5, Maintenance, for constipation, 02/27/20 15:25:00 EDT, Route to Pharmacy Electronically, [facility]/pharmacy #[id number], 172, cm, 12/14/19 8:02:00 EDT, Height, 97.8, kg, 02/... Start Date: 02/27/20 Status: Ordered Crestor 20 mg oral tablet 1 tablet = 20 mg, By Mouth, Daily, # 90 tablet, 3 Refills, Maintenance, 01/02/20 15:46:00 EDT, Tablet, [facility]/pharmacy #[id number], 172, cm, 12/14/19 8:02:00 EDT, Height, 97.8, kg, 08/11/19 5:24:00 EST, Dry Weight Start Date: 01/02/20 Status: Ordered Daily Simone oral tablet 1 tablet, By Mouth, Daily, # 30 tablet, 5 Refills, Maintenance, 03/01/20 14:48:00 EDT, Tablet, [facility]/pharmacy #[id number], 1 tablet By Mouth Daily,x30 days, 172, cm, 12/14/19 8:02:00 EDT, Height, 97.8, kg, 08/11/19 5:24:00 EST, Dry Weight Start Date: 03/01/20 Stop Date: 08/28/20 Status: Ordered folic acid 1 mg oral tablet 1 mg, 1, tablet, By Mouth, Daily, # 30 tablet, Refills 5, Tot. Refills 5, Maintenance, 12/29/19 11:13:00 EDT, Route to Pharmacy Electronically, [facility]/pharmacy #[id number], 172, cm, 12/14/19 8:02:00 EDT, Height, 97.8, kg, 08/11/19 5:24:00 EST, Dry Weight Start Date: 12/29/19 Status: Ordered Freestyle Lite Test Strips See [...] tablet, 5 Refills, Maintenance, 02/27/20 15:23:00 EDT, [facility]/pharmacy #[id number], 172, cm, 12/14/19 8:02:00 EDT, Height, 97.8, kg, 08/11/19 5:24:00 EST, Dry Weight Start Date: 02/27/20 Status: Ordered LaMICtal 100 mg oral tablet 100 mg, 1, tablet, By Mouth, 2 times a day, # 60 tablet, Refills 3, Tot. Refills 3, Maintenance, 01/21/19 11:25:36 EDT, Route to Pharmacy Electronically, [id number], [facility]/pharmacy #[id number] Start Date: 01/21/19 Stop Date: 05/21/19 Status: Ordered latanoprost 0.005% ophthalmic solution 1 drops, Eyes, Both, Daily at bedtime, # 3 mL, 0 Refills, Maintenance, 02/02/19 16:23:39 EDT, OphthSolution, 1 drops Eyes, Both Daily at bedtime Start Date: 02/02/19 Status: Ordered lisinopril 20 mg oral tablet 40 mg, 2, tablet, By Mouth, Daily, # 60 tablet, Refills 2, Tot. Refills 2, Maintenance, 02/28/20 8:20:00 EDT, Route to Pharmacy Electronically, [facility]/pharmacy #[id number], 172, cm, 12/14/19 8:02:00 EDT, Height, 97.8, kg, 08/11/19 5:24:00 EST, Dry Weight Start Date: 02/28/20 Status: Ordered metoprolol 50 mg oral tablet 75 mg, 1.5, tablet, By Mouth, 2 times a day, stop metoprolol 50 mg twice daily, # 180 tablet, Refills 2, Tot. Refills 2, Maintenance, 01/02/20 15:45:00 EDT, Route to Pharmacy Electronically, [facility]/pharmacy #[id number], 172, cm, 12/14/19 8:02:00 EDT, Height, 9... Start Date: 01/02/20 Status: Ordered nicotine 2 mg oral transmucosal lozenge See Instructions, suck, up to q1 hrs 10 daily, # 144 lozenge, 1 Refills, Maintenance, 03/21/20 11:13:00 EDT, [facility]/pharmacy #[id number], suck, up to q1 hrs 10 daily, 172, cm, 03/21/20 11:04:00 EDT, Height, 97.8, kg, 08/11/19 5:24:00 EST, Dry Weight Start Date: 03/21/20 Status: Ordered nicotine 4 mg oral transmucosal lozenge 1 lozenge = 4 mg, By Mouth, Every hour, # 132 lozenge, 1 Refills, Maintenance, 11/29/19 8:13:00 EDT, [facility]/pharmacy #[id number], 1 lozenge By Mouth Every hour, 172, cm, 09/05/19 16:17:00 EST, Height, 97.8, kg, 08/11/19 5:24:00 EST, Dry Weight Start Date: 11/29/19 Status: Ordered nitroglycerin 0.4 mg sublingual tablet [...] FlexPen 100 units/mL subcutaneous solution See Instructions, INJECT 0-18 UNITS SUBCUTANEOUSLY WITH MEALS FOR SLIDING SCALES, # 15 Unknown, 5 Refills, Soft Stop, 02/01/20 9:13:00 EDT, [id number], 172, cm, 12/14/19 8:02:00 EDT, Height, 97.8, kg, 08/11/19 5:24:00 EST, Dry Weight Start Date: 02/01/20 Status: Ordered Ozempic (0.25 mg or 0.5 mg dose) 2 mg/1.5 mL subcutaneous solution See Instructions, INJECT 0.25 MG SUBCUTANEOUSLY WEEKLY, # 1.5 Unknown, 0 Refills, Maintenance, [facility], 172, cm, 12/14/19 8:02:00 EDT, Height, 97.8, kg, 08/11/19 5:24:00 EST, Dry Weight Start Date: 02/09/20 Status: Ordered Pen [place], 31 G x 5 mm BD [...] EST, Tablet, this was previously sent to [facility] Start Date: 05/17/19 Stop Date: 05/11/20 Status: Ordered Tresiba FlexTouch 200 units/mL subcutaneous solution = 90 units, Subcutaneous Infusion, Daily, at bedtime, # 15 mL, 5 Refills, Maintenance, 08/04/19 13:13:00 EST, [facility]/pharmacy #[id number], 180, cm, 08/01/19 10:43:00 EST, [...] long-term use(Confirmed) Active Dysphagia(Confirmed) Active Ex-smoker quit 2018/ldc t enrolled(Confirmed) Active Fibrillary glomerulonephritis(Confirmed) 4 Active [...] Active Obesity(Confirmed) Active Lower extremity pain(Confirmed) Active Syncopal episodes(Confirmed) Active Tubular adenoma of [...] 524 weeks therapy with sofosbuvir/weight based ribavirin 93899 inferolateral stent bare metal circumflex 7DR Marissa sx;Dr Schwartz 8repeat colonoscopy in 5 years Social History Social History Type Response Smoking Status Former smoker, quit more than 30 days ago; Interested in cessation: Yes; Tobacco use times per day: 0.5-1 PPD; Total pack years: 38; Started at age: 12; Stopped at age: 63; entered on: 12/14/19 Sex
--- OUTSIDE RECORDS SUMMARY | 2024-06-01 11:54 | XMS_ITS | Continuity of Care Document ---
Author Organization [facility] Shawn Lazaro lt Address [address] [place] [address]- Care Team Providers Care Software Database Architect Name Role Phone Carrie Kelly RIVERA Primary Care Phys[place] [facility] [place]/23 [facility] Adult [address] [place] [address]- Allergies, Adverse Reactions, Alerts Substance Reaction Severity Status Bee Stings Active Immunizations Given and Recorded Vaccine Date Status Refusal Reason SARS-CoV-2(COVID-19)mRNA-LNP vac([id number]) 05/08/23 Recorded pneumococcal 20-valent conjugate vaccine 1 [...] 02/03/23 Recorded zoster vaccine, inactivated 08/09/19 Recorded [id number] 12y+ bivalent booster vax 05/17/22 Recorded SARS-CoV-2 [...] adult vaccine 4 12/10/10 Given 1Result Comment: [id number] 2Result Comment: [id number] 3Admin Note: pt waited 10 mins post inj no adverse reaction noted.j a 4Admin Note: PT WAITED 10 MIN WITH NO ADVERSE REACTION. MH Medications aspirin 81 mg oral delayed release tablet 1 tablet, By Mouth, Daily, # 90 tablet, 1 Refills, Maintenance, 06/02/23 11:42:00 EST, [facility]/pharmacy#[id number], 168, cm, 05/01/23 14:45:00 EDT, Height, 93, [...] capsule, 1 Refills, Maintenance, 06/30/23 7:20:00 EST, [id number], 168, cm, 05/01/23 14:45:00 EDT, Height, 93, kg, 01/28/22 14:55:00 EDT, Dry Weight Start Date: 06/30/23 Status: Ordered Daily Simone oral tablet 1 tablet, By Mouth, Daily, # 90 tablet, 1 Refills, Maintenance, 06/30/23 7:20:00 EST, [id number], 90, TAKE 1 TABLET BY MOUTH EVERY [...] Refills, Maintenance, 06/26/23 6:50:00 EST, [facility], 168, cm, 05/01/23 14:45:00 EDT, Height, 93, kg, 01/28/22 14:55:00 EDT, Dry Weight Start Date: 06/26/23 Status: Ordered folic acid 1 mg oral tablet 1, tablet, By Mouth, Daily, # 90 tablet, Refills 1, Tot. Refills 1, Maintenance, 07/03/23 10:01:00 EST, Route to Pharmacy Electronically, [facility]/pharmacy #[id number], 168, cm, 05/01/23 14:45:00 [...] 01/21/19 11:25:36 EDT, Route to Pharmacy Electronically, [id number], [facility]/pharmacy #[id number] Start Date: 01/21/19 Stop Date: 05/21/19 Status: Ordered lamotrigine 100 mg oral tablet Refills 0, Maintenance, 05/01/23 15:28:00 EDT, Partial fill upon patient request if the prescription is for a schedule II opioid drug. Start Date: 05/01/23 Status: Ordered lisinopril 40 mg oral tablet 1 tablet, By Mouth, Daily, # 90 tablet, 1 Refills, Maintenance, 08/17/23 13:33:00 EST, [facility]/pharmacy#[id number], 168, cm, 07/23/23 15:05:00 EST, Height, 93, kg, 01/28/22 14:55:00 EDT, Dry Weight Start Date: 08/17/23 Status: Ordered Metoprolol Tartrate 50 mg oral tablet 1.5 tablet, By Mouth, 2 times a day, # 270 tablet, 1 Refills, Maintenance, 09/16/23 14:32:00 EDT, [facility]/pharmacy #[id number], 168, cm, 07/23/23 15:05:00 EST, Height, 93, kg, 01/28/22 14:55:00 EDT, Dry Weight Start Date: 09/16/23 Status: Ordered Nicotine 7 mg/24 hour patch 1 patch, Topically, Daily, for 14 days, # 14 patch, 1 Refills, Acute 10/14/23 17:11:00 EDT, 09/16/23 17:11:00 EDT, Patch, [id number], Partial fill upon patient request if the prescription is for a schedule II opioid drug., 1 patch Topically Da... Start Date: 09/16/23 Stop Date: 10/14/23 Status: Ordered nitroglycerin 0.4 mg sublingual tablet See Instructions, DISSOLVE 1 UNDER TONGUE EVERY 5 MINUTES NEEDED FOR CHEST PAIN CALL MD AFTER TAKING 3 TABS IN TOTAL IN A DAY, # 100 tablet, 0 Refills, Maintenance, 10/03/22 15:53:00 EDT, [facility]/pharmacy #[id number], 175, cm, 09/17/22 13:59:00 EDT, Height,... Start Date: 10/03/22 Status: Ordered NovoLOG FlexPen 100 units/mL injectable solution See Instructions, INJECT 0-18 UNITS SUBCUTANEOUSLY WITH MEALS FOR SLIDING SCALES, # 15 Unknown, 2 Refills, 11/07/22 0:09:00 EDT, [facility]/pharmacy #[id number], 175, cm, 10/09/22 16:51:00 EDT, Height, 93, kg, 01/28/22 14:55:00 EDT, Dry Weight Start Date: 11/07/22 Status: Ordered Pen [place], 31 G x 5 mm BD Ultra [...] capsule, 2 Refills, Maintenance, 07/03/23 9:40:00 EST, [facility]/pharmacy #[id number], Partial fill upon patient request if the prescription is for a schedule II opioid drug., 168, cm, 05/01/23 14:45:00 EDT, Height, 93, kg... Start Date: 07/03/23 Status: Ordered rosuvastatin 20 mg oral tablet 1 tablet, By Mouth, Daily, # 90 tablet, 1 Refills, Maintenance, 03/29/23 14:43:00 EDT, [facility], 175, cm, 10/09/22 16:51:00 EDT, Height, 93, [...] 4, GFR 15-29 ml/min Confirmed Active ASHD; [place] 2012/stent circumflex vessel cath;abdelrahman 2018 3 Confirmed [...] mild to moderate. 3MI 2012 circumflex stent 2012/[place] 4secondary to hep C 524 weeks therapy with sofosbuvir/weight based ribavirin 09377 inferolateral stent bare metal circumflex 7DR Marissa saucedax;Dr Schwartz 8hyperplatic polyp repeat screening in 2025 [...] Team Personnel Name: Jeffrey Mccoy MD Position: [facility] Renal MD Member Role: Lifetime Consulting Physician Address: Address: [address] [place] [address] [address] [facility] [place], [place] [address] Name: Kelly Butler NP Position: [facility] PCO Associate Professional Member Role: PCP Address: Address: [address] [place] [id number]- Name: Kristin Mckenzie Position: [facility] Outreach Member Role: Lifetime Consulting Physician Name: Prieto Tobin RN Position: [facility] RN Member Role: Primary Care Nurse Name: Jonn Hui DO Position: [facility] Renal MD Member Role: Lifetime Consulting Physician Address: Address: [address] [place] [address] [address] [facility] [place], [place] [address] Name: Luis Angel Stephen RN Position: [facility] RN Member Role: Primary Care Nurse Care Team Related Persons Name: CARLOS A BORDEN Address: home [address] [place] [address] Name: LEVI BORDEN Address: home [address] [place] [address]
--- OUTSIDE RECORDS SUMMARY | 2024-06-01 11:54 | XMS_ITS | Continuity of Care Document ---
Author Organization [facility] Nando Escobar Lazaro lt Address [address] [place] [address]- Care Team Providers Care Camouflage Assembler Name Role Phone Carrie Kelly RIVERA Primary Care Physician Encounter [facility] Date(s): 06/12/22 - 07/12/22 [facility] Adult [address] [place] [address]- Allergies, Adverse Reactions, Alerts Substance Reaction Severity [...] Refills, Maintenance, 05/21/22 13:33:00 EST, [facility], 175, cm, 05/09/22 11:08:00 EDT, Height, 93, [...] 04/01/22 21:30:00 EDT, Route to Pharmacy Electronically, [facility]/pharmacy #[id number], 175, cm, 02/14/22 10:10:00 [...] 01/21/19 11:25:36 EDT, Route to Pharmacy Electronically, [id number], [facility]/pharmacy #[id number] Start Date: 01/21/19 Stop Date: 05/21/19 Status: Ordered lisinopril 40 mg oral tablet 1 tablet, By Mouth, Daily, # 90 tablet, 1 Refills, Maintenance, 05/07/22 14:29:00 EDT, [facility], 175, cm, 04/08/22 8:34:00 EDT, Height, 93, kg, 01/28/22 14:55:00 EDT, Dry Weight Start Date: 05/07/22 Status: Ordered Metoprolol Tartrate 50 mg oral tablet 1.5 tablet, By Mouth, 2 times a day, # 270 tablet, 0 Refills, 05/21/22 10:19:00 EST, [facility]/pharmacy #[id number], 175, cm, 05/09/22 11:08:00 EDT, Height, 93, kg, 01/28/22 14:55:00 EDT, Dry Weight Start Date: 05/21/22 Status: Ordered nicotine 14 mg/24 hr transdermal film, extended release 1 patch, Topically, Daily, for 30 days, # 14 patch, 0 Refills, Acute 07/27/22 15:44:00 EST, 06/27/22 15:44:00 EST, Patch, [facility]/pharmacy #[id number], 1 patch Topically Daily,x30 [...] tablet, 0 Refills, Maintenance, 12/31/21 17:21:00 EDT, [facility]/pharmacy #[id number], 175.2, cm, 12/18/21 14:10:00 EDT, Height... Start Date: 12/31/21 Status: Ordered NovoLOG FlexPen 100 units/mL injectable solution See Instructions, INJECT 0-18 UNITS SUBCUTANEOUSLY WITH MEALS FOR SLIDING SCALES, # 15 Unknown, 2 Refills, [facility], 175.2, cm, 05/27/21 11:26:00 EST, Height, 88.3, kg, 03/12/21 9:16:00 EDT, Dry Weight Start Date: 06/04/21 Status: Ordered Pen [place], 31 G x 5 mm BD Ultra [...] 5 Refills, Maintenance, 04/08/22 9:12:00 EDT, Capsule, [facility]/pharmacy #[id number], 175, cm, 04/08/22 8:34:00 EDT, Height, 93, kg, 01/28/22 14:55:00 EDT, Dry Weight Start Date: 04/08/22 Status: Ordered rosuvastatin 20 mg oral tablet 1 tablet, By Mouth, Daily, # 90 tablet, 1 Refills, Maintenance, 05/21/22 13:33:00 EST, [facility], 175, cm, 05/09/22 11:08:00 EDT, Height, 93, kg, 01/28/22 14:55:00 EDT, Dry Weight Start Date: 05/21/22 Status: Ordered SEROquel 100 mg oral tablet 100 mg, 1, tablet, By Mouth, 2 times a day, PRN, # 1 tablet, Refills 2, Tot. Refills 2, Maintenance, Anxiety, 09/21/19 10:41:00 EDT, Route to Pharmacy Electronically, [facility]/pharmacy #[id number], 172, cm, 09/05/19 16:17:00 [...] 9 Unknown, 1 Refills, 01/21/22 15:39:00 EDT, [facility]/pharmacy #[id number], 175.2, cm, 12/18/21 14:10:00 [...] 524 weeks therapy with sofosbuvir/weight based ribavirin 91900 inferolateral stent bare metal circumflex 7DR Molddoverno [...] Team Personnel Name: Jeffrey Mccoy MD Position: [facility] Renal MD Member Role: Lifetime Consulting Physician Address: Address: [address] [place] [address] [facility] [place] [address]- Name: Kelly Butler NP Position: [facility] PCO Associate Professional Member Role: PCP Address: Address: [address] [place] [id number]- Name: Kristin Mckenzie Position: [facility] Outreach Member Role: Lifetime Consulting Physician Name: Prieto Tobin RN Position: [facility] RN Member Role: Primary Care Nurse Name: Jonn Hui DO Position: [facility] Renal MD Member Role: Lifetime Consulting Physician Address: Address: [address] [place], [place] [address] [place] [address]- Name: Luis Angel Stephen RN Position: [facility] RN Member Role: Primary Care Nurse Name: Tamie Baird RN Position: [facility] RN Member Role: Primary Care Nurse Care Team Related Persons Name: CARLOS A BORDEN Address: home [address] [place] [address] [facility] Name: LEVI BORDEN Address: home [address] [place] [address]
--- OUTSIDE RECORDS SUMMARY | 2024-06-01 11:55 | XMS_ITS | Continuity of Care Document ---
Author Organization [facility] Nando Escobar Lazaro lt Address [address] [place] [address]- Care Team Providers Care Archivist Nonprofit Foundation Name Role Phone Carrie Kelly RIVERA Primary Care Physician Encounter [facility] Date(s): 03/25/22 - 04/24/22 [facility] Nando Escobar Adult [address] [place] [address]- Allergies, Adverse Reactions, Alerts Substance Reaction Severity [...] capsule, 5 Refills, Maintenance, 06/05/21 15:57:00 EST, [facility]/pharmacy #[id number], 175.2, cm, 05/27/21 11:26:00 EST, Height, 88.3, kg, 03/12/21 9:16:00 EDT, Dry Weight Start Date: 06/05/21 Status: Ordered folic acid 1 mg oral tablet 1, tablet, By Mouth, Daily, # 30 tablet, Refills 5, Tot. Refills 5, Maintenance, 04/01/22 21:30:00 EDT, Route to Pharmacy Electronically, [facility]/pharmacy #[id number], 175, cm, 02/14/22 [...] 01/21/19 11:25:36 EDT, Route to Pharmacy Electronically, [id number], [facility]/pharmacy #[id number] Start Date: 01/21/19 Stop Date: 05/21/19 Status: Ordered lisinopril 40 mg oral tablet 1 tablet = 40 mg, By Mouth, Daily, # 30 tablet, 3 Refills, Maintenance, 09/17/21 10:50:00 EDT, Tablet, [facility]/pharmacy #[id number], Partial fill upon patient request if the prescription is for a schedule II opioid drug., 175.2, cm, 07/31/21 11:20:00 EST, Heigh... Start Date: 09/17/21 Status: Ordered Metoprolol Tartrate 50 mg oral tablet 1.5 tablet, By Mouth, 2 times a day, # 270 tablet, 0 Refills, 03/16/22 12:48:00 EDT, [facility]/pharmacy #[id number], 175, cm, 02/14/22 10:10:00 EDT, Height, 93, kg, 01/28/22 14:55:00 EDT, Dry Weight Start Date: 03/16/22 Status: Ordered nicotine 14 mg/24 hr transdermal film, extended release 1 patch, Topically, Daily, for 30 days, # 30 patch, 1 Refills, Acute 05/13/22 12:16:00 EST, 03/14/22 12:16:00 EDT, Patch, [facility]/pharmacy #[id number], 1 patch Topically Daily,x30 days, 175, cm, 02/14/22 10:10:00 EDT, Height, 93, kg, 01/28/22 14:55:00 EDT, Dry... Start Date: 03/14/22 Stop Date: 05/13/22 Status: Ordered nitroglycerin 0.4 mg sublingual tablet See Instructions, DISSOLVE 1 UNDER TONGUE EVERY 5 MINUTES NEEDED FOR CHEST PAIN CALL MD AFTER TAKING 3 TABS IN TOTAL IN A DAY, # 100 tablet, 0 Refills, Maintenance, 12/31/21 17:21:00 EDT, [facility]/pharmacy #[id number], 175.2, cm, 12/18/21 14:10:00 EDT, Height... Start Date: 12/31/21 Status: Ordered NovoLOG FlexPen 100 units/mL injectable solution See Instructions, INJECT 0-18 UNITS SUBCUTANEOUSLY WITH MEALS FOR SLIDING SCALES, # 15 Unknown, 2 Refills, [facility] [id number], 175.2, cm, 05/27/21 11:26:00 EST, Height, 88.3, kg, 03/12/21 9:16:00 EDT, Dry Weight Start Date: 06/04/21 Status: Ordered Pen [place], 31 G x 5 mm BD Ultra [...] 5 Refills, Maintenance, 04/08/22 9:12:00 EDT, Capsule, [facility]/pharmacy #[id number], 175, cm, 04/08/22 8:34:00 EDT, Height, 93, kg, 01/28/22 14:55:00 EDT, Dry Weight Start Date: 04/08/22 Status: Ordered rosuvastatin 20 mg oral tablet 1 tablet, By Mouth, Daily, # 90 tablet, 1 Refills, [facility] 13205, 175, cm, 01/29/22 15:12:00 EDT,Height, 93, kg, 01/28/22 14:55:00 EDT, Dry Weight Start Date: 01/30/22 Status: Ordered SEROquel 100 mg oral tablet 100 mg, 1, tablet, By Mouth, 2 times a day, PRN, # 1 tablet, Refills 2, Tot. Refills 2, Maintenance, Anxiety, 09/21/19 10:41:00 EDT, Route to Pharmacy Electronically, [facility]/pharmacy #[id number], 172, cm, 09/05/19 [...] 3 Refills, Maintenance, 04/08/22 9:09:00 EDT, Suspension, [facility]/pharmacy #[id number], 1 drops Eyes, [...] # 30 capsule, 5 Refills, [facility], 175.2, cm, 11/15/21 11:18:00 EDT, Height, 88.3, kg, 03/12/21 9:16:00 EDT, Dry Weight Start Date: 11/17/21 Status: Ordered Problem List Condition Confirmation Course Effective Dates Status Health Status Informant Bipolar disorder Confirmed Active Cervical spondylosis Confirmed Active Chronic back pain DJD Confirmed Active Glomerulonephritis,ulloa ngial proliferative/fibrillar y 1, 2 Confirmed Active Chronic renal failure, stage 4 (severe) Confirmed Active ASHD; [place] 2012/stent circumflex vessel [...] 524 weeks therapy with sofosbuvir/weight based ribavirin 01221 inferolateral stent bare metal circumflex 7DR Molddoverno [...] on: 07/20/20 Sex Patient Care team information Personnel Name: Kelly Butler NP Address: Address: [address] [place] [address]
--- OUTSIDE RECORDS SUMMARY | 2024-06-01 11:55 | XMS_ITS | Continuity of Care Document ---
Author Organization [facility] Address [address] [place] [address]- Care Team Providers Care Stroke Coordinator Name Role Phone Kelly Butler NP Primary Care Physician Encounter [facility] [place] Date(s): 02/02/24 - 02/09/24 [facility] [address] [place] [address]- Encounter Diagnosis Cough(Discharge Diagnosis) - 02/02/24 CKD (chronic kidney disease) stage 4, GFR 15-29 ml/min(Discharge Diagnosis) - 02/02/24 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) - 02/02/24 Asthma(Discharge Diagnosis) - 02/02/24 Attending Physician: Kunal HICKMAN, Chely Norwood Referring Physician: Kelly Butler NP Allergies, Adverse Reactions, Alerts Substance Reaction Severity Status Bee Stings Active Immunizations Given and Recorded Vaccine Date Status Refusal Reason SARS-CoV-2(COVID-19)mRNA-LNP vac([id number]) 12/31/23 Recorded SARS-CoV-2(COVID-19)mRNA-LNP vac([id number]) 05/08/23 Recorded tetanus/diphtheria/pertussis, acel(Tdap) 10/15/23 Recorded tetanus/diphtheria/pertussis, [...] 02/03/23 Recorded zoster vaccine, inactivated 08/09/19 Recorded [id number] 12y+ bivalent booster vax 05/17/22 Recorded SARS-CoV-2 [...] adult vaccine 4 12/10/10 Given 1Result Comment: [id number] 2Result Comment: [id number] 3Admin Note: pt waited 10 mins post inj no adverse reaction noted.j a 4Admin Note: PT WAITED 10 MIN WITH NO ADVERSE REACTION. MH Medications acetaminophen 325 mg oral tablet 650 [...] day prn cough (Max 600 mg in j17-eizw period), # 30 capsule, 0 Refills, Maintenance, [...] 0 Refills, Maintenance, 01/11/24 14:46:00 EDT, Tablet, [facility]/pharmacy #[id number], Partial fill upon patient request if the prescription is for a schedule II opioid drug., 168, cm, 01/11/24 14:42:00 EDT, Height,... Start Date: 01/11/24 Status: Ordered DilTIAZem (Eqv-Cardizem CD) 180 mg/24 hours oral capsule, extended release 1 capsule, By Mouth, Daily, # 90 capsule, 0 Refills, Maintenance, 11/10/23 22:03:00 EDT, [id number], 168, cm, 10/27/23 15:34:00 EDT, Height, 93, kg, 01/28/22 14:55:00 EDT, Dry Weight Start Date: 11/10/23 Status: Ordered folic acid 1 mg oral tablet 1, tablet, By Mouth, Daily, # 90 tablet, Refills 1, Tot. Refills 1, Maintenance, 07/03/23 10:01:00 EST, Route to Pharmacy Electronically, [facility]/pharmacy #[id number], 168, cm, 05/01/23 14:45:00 EDT, Height, [...] 01/21/19 11:25:36 EDT, Route to Pharmacy Electronically, [id number], [facility]/pharmacy #[id number] Start Date: 01/21/19 Stop Date: 05/21/19 Status: Ordered lisinopril 40 mg oral tablet 1 tablet, By Mouth, Daily, # 90 tablet, 1 Refills, Maintenance, 01/26/24 9:20:00 EDT, [id number], 168, cm, 01/11/24 14:42:00 EDT, Height, 93, kg, 01/28/22 14:55:00 EDT, Dry Weight Start Date: 01/26/24 Status: Ordered methylphenidate 5 mg oral tablet TAKE 1 TABLET BY MOUTH THREE TIMES A DAY Start Date: 01/11/24 Status: Ordered Metoprolol Tartrate 50 mg oral tablet 1.5 tablet, By Mouth, 2 times a day, # 270 tablet, 1 Refills, Maintenance, 09/16/23 14:32:00 EDT, [id number], 168, cm, 07/23/23 15:05:00 EST, Height, [...] mL, 0 Refills, Maintenance, 02/02/24 15:28:00 EDT, [place], [facility]/pharmacy #[id number], Partial fill upon patient... Start Date: 02/02/24 Status: Ordered Pen Napa, 31 G x 5 mm BD Ultra [...] Refills, Maintenance, 02/04/24 16:39:00 EDT, [id number], 168, cm, 02/03/24 10:41:00 EDT, Height Start [...] 4, GFR 15-29 ml/min Confirmed Active ASHD; [place] 2012/stent circumflex vessel cath;abdelrahman 2018 3 Confirmed [...] mild to moderate. 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 Miro sx;Dr Schwartz 8hyperplatic polyp repeat screening in 2025 9repeat colonoscopy in 5 years Diagnosis Diagnosis Type Effective Dates Health Status Clinical Service Informant CKD (chronic kidney disease) stage 4, GFR 15-29 ml/min Discharge Diagnosis 02/02/24 Type 2 diabetes mellitus with diabetic nephropathy Discharge Diagnosis 02/02/24 Cough Discharge Diagnosis 02/02/24 Asthma Discharge Diagnosis 02/02/24 Vital Signs Most recent to oldest [Reference Range]: 1 Height 168.0 cm (02/02/24 2:20 PM) Oxygen Saturation [94-100 %] 98 % (02/02/24 2:20 PM) Blood Pressure [90-138/55-84 mm Hg] 168/ 68mm Hg *H* (02/02/24 2:20 PM) Temperature [96.8-100.4 DegF] 98.7 DegF (02/02/24 2:20 PM) Mode of Delivery (Oxygen) Room air (02/02/24 2:20 PM) Blood pressure sites Arm, left (02/02/24 2:20 PM) Temperature Route Oral (02/02/24 2:20 PM) Social History Social History Type Response Smoking Status Former smoker, quit more than 30 days ago; Interested in cessation: No; Other: quit; Tobacco use times per day: prio 1/2-1 ppd; Total pack years: 38; Started at age: 12; Stopped at age: 63; entered on: 07/20/20 Sex Note * Alley Martinez: PERFORM Event Display: Patient Education/Instruction Authored Date: [id number] Ambulatory Adult Visit Summary [facility] [address] [place] [address] Name: BRITTANY BORDEN : 1955?? Visit: 02/02/2024 13:36?? Ambulatory Visit Instructions ?? Your Care Team Primary Care Provider Carrie Kelly RIVERA? This Visit Provider [facility] Your Diagnosis CKD (chronic kidney disease) stage 4, GFR 15-29 ml/min Type 2 diabetes mellitus with diabetic nephropathy Cough Asthma Vitals Signs Temperature: 98.7 DegF Height: 168 cm Systolic Blood Pressure:??168 mm Hg??High ?? Diastolic Blood Pressure: 68 mm Hg ?? Oxygen Saturation: 98 % ?? What to do next Instructions From Your Provider ??Rest and drink extra fluids. Use albuterol??with a spacer every 4 hours as needed for??chest tightness, shortness of breath and wheezing. For pain or fever (temperature above 100.4)??acetaminophen (tylenol) as long as you do not have liver problems. You can use the nasal spray??as directed.?? Do not use it for more than 3 days in a row. Your symptoms will start to improve 7 days after they start. Your cough will gradually improve overthe next 2-3weeks. You may also have lingering post nasal drip which will cause you cough up mucus,especially in the mornings. You should be seen again if your symptoms are not starting to improve after day 7 or if you developpain on one side of your face or in one ear.?? You should go to the emergency room if you develop severe cough, chest pain/tightness or shortness of breath??that does not respond quickly to albuterol. Scheduled Follow-Up Appointments 2023 9:10 AM EDT ?? With: Carrie RIVERA, Kelly Lopez Where: [facility] [address] [address]- Status: Pending Future Orders PTH Intact - Once, *Est. 10/02/23 +/- 60 days, Order for Today?? Vitamin D 25 Hydroxy Level - Once, *Est. 10/02/23 +/- 60 days, Order for Today?? Comprehensive Metabolic Panel - Once, *Est. 10/02/23 +/- 60 days, Order for Today?? Direct LDL - Once, *Est. 10/02/23 +/- 60 days, Single or Recurring Future Order?? Medications The list below reflects the information in our records and provided by you today along with any changes made during this visit. Please continue your medications until treatment is completed or stopped by your provider. If this is different from the information you have or there are other questions,please contact the prescribing provider. What How Much When Instructions New Acetaminophen (acetaminophen 325 mg oral tablet) 2 tab(s) Oral 3 times a day as needed for as needed for fever, pain Do not take more than 6 pills in a 24-hour period ?? Pickup at [facility]/pharmacy #[id number] New Albuterol (Albuterol (Eqv-Ventolin HFA) 90 mcg/ inh inhalation aerosol) 2 puff(s) Inhalation Every 4 hours as needed for cough, SOB, wheeze Pickup at [facility]/pharmacy #[id number] New Benzonatate (benzonatate 100 mg oral capsule) See instructions 1-2 capsule(s) By Mouth up to 3 times a day prn cough (Max 600 mg in a 24-hour period), As needed for Cough ?? Pickup at [facility]/pharmacy #[id number] New Durable Medical Equipment (Aerochamber) See instructions always use with inhaler ?? Pickup at [facility]/pharmacy #[id number] New Oxymetazoline Nasal (oxymetazoline 0.05% nasal spray) 2 spray(s) Nares, Both Twice a day as needed for nasal/sinus congestion Do not use more than twice a day. ??Do not use for more than 3 days in a row ?? Pickup at [facility]/pharmacy #[id number] Unchanged Aspirin (aspirin 81 mg oral delayed release tablet) 1 tab(s) Oral Daily Contact prescribing physician if questions or concerns ?? Unchanged Cholecalciferol (D3 50 mcg (2000 intl units) oral capsule) 1 capsule Oral Daily Contact prescribing physician if questions or concerns ?? Unchanged dapagliflozin (dapagliflozin 10 mg oral tablet) 1 tab(s) Oral Daily Contact prescribing physician if questions or concerns ?? Unchanged Diltiazem (DilTIAZem (Eqv-Cardizem CD) 180 mg/ 24 hours oral capsule, extended release) 1 capsule Oral Daily Contact prescribing physician if questions or concerns ?? Unchanged Durable Medical Equipment (Freestyle Lite Lancets) See instructions Check blood sugars three times a day DM Type 2 E11.9 Contact prescribing physician if questions or concerns ?? Unchanged Durable Medical Equipment (Freestyle Lite Test Strips) See instructions Check blood sugars three times a day DM Type 2 E11.9 Contact prescribing physician if questions or concerns ?? Unchanged Durable Medical Equipment (Pen Napa, 31 G x 5 mm BD Ultra Fine III) See instructions Use TID DM Type 2 on insulin E11.9 Contact prescribing physician if questions or concerns ?? Unchanged Folic Acid (folic acid 1 mg oral tablet) 1 tab(s) Oral Daily Contact prescribing physician if questions or concerns ?? Unchanged Insulin Aspart (NovoLOG FlexPen 100 units/ mL injectable solution) See instructions INJECT 0-18 UNITS SUBCUTANEOUSLY WITH MEALS FOR SLIDING SCALES Contact prescribing physician if questions or concerns ?? Unchanged Lamotrigine (LaMICtal 100 mg oral tablet) 1 tab(s) Oral Twice a day Duration: 30 Days Contact prescribing physician if questions or concerns ?? Unchanged Lisinopril (lisinopril 40 mg oral tablet) 1 tab(s) Oral Daily Contact prescribing physician if questions or concerns ?? Unchanged Lorazepam (Ativan 1 mg oral tablet) 1 tab(s) Oral 4 times a day Contact prescribing physician if questions or concerns ?? Unchanged Methylphenidate (methylphenidate 5 mg oral tablet) TAKE 1 TABLET BY MOUTH THREE TIMES A DAY Contact prescribing physician if questions or concerns ?? Unchanged Metoprolol (Metoprolol Tartrate 50 mg oral tablet) 1.5 tab(s) Oral Twice a day Contact prescribing physician if questions or concerns ?? Unchanged Multivitamin (Daily Simoen oral tablet) 1 tab(s) Oral Daily Contact prescribing physician if questions or concerns ?? Unchanged Nitroglycerin (nitroglycerin 0.4 mg sublingual tablet) See instructions DISSOLVE 1 UNDER TONGUE EVERY 5 MINUTES NEEDED FOR CHEST PAIN CALL MD AFTER TAKING 3 TABS IN TOTAL IN A DAY Contact prescribing physician if questions or concerns ?? Unchanged Pregabalin (pregabalin 75 mg oral capsule) 1 capsule Oral Daily Duration: 30 Days APPT NEEDED FOR FURTHER REFILLS Contact prescribing physician if questions or concerns ?? Unchanged Quetiapine (SEROquel 300 mg oral tablet) 1 tab(s) Oral Daily at Bedtime Contact prescribing physician if questions or concerns ?? Unchanged Rosuvastatin (rosuvastatin 20 mg oral tablet) 1 tab(s) Oral Daily Contact prescribing physician if questions or concerns ?? Pharmacy Information [facility]/pharmacy #[id number]: [address] [place] [address] [phone] Medications and Immunizations Administered Medications Given During Visit No medications given during this visit.?? Allergies (NKA means No Known Allergies) Bee Stings Common Emergency Awareness Tips IS IT A [...] are strongly encouraged to quit. Please call [employer] at [phone] or [phone] ([phone]) or log in to [email or web address] for referrals to smoking cessation programs. ?? The National Suicide Prevention Hotline is available 26/01 if you or someone you know needs to find a reason to keep living. By calling 0-490-660-auby (5403) you'll be connected to a skilled, trained counselor at a crisis center in your area. [facility] You can view and manage your care through the patient portal or by using a health care [place] of your choosing. [employer] is a website that allows you to securely view your medical information including your hospital discharge summary, office visit summaries, medications and follow-up visits. You can also request appointments, renew medications, and request access to your medical information using a health care [place] of your choosing, or just ask a question. You can enroll at [email or web address] or register during your next office visit. [facility], in keeping with [facility] guidance, no longer requires face masks [...] primary care provider, you may find a [facility] provider by calling [facility] at [phone]. * Gopal Lemon: PERFORM Event Display: Patient Education/Instruction Authored Date: [id number] Ambulatory Adult Visit Summary [facility] [address] [place] [id number] Name: VALENTINOPAULA COLINDRESRNES : 1955?? Visit: 02/02/2024 13:36?? Ambulatory Visit Instructions ?? Your Care Team Primary Care Provider Kelly Butler NP? This Visit Provider [facility] Your Diagnosis CKD (chronic kidney disease) stage 4, GFR 15-29 ml/min Type 2 diabetes mellitus with diabetic nephropathy Cough Vitals Signs Temperature: 98.7 DegF Height: 168 cm Systolic Blood Pressure:??168 mm Hg??High ?? Diastolic Blood Pressure: 68 mm Hg ?? Oxygen Saturation: 98 % ?? What to do next Instructions From Your Provider ??Rest and drink extra fluids. Use albuterol??with a spacer every 4 hours as needed for??chest tightness, shortness of breath and wheezing. For pain or fever (temperature above 100.4)??acetaminophen (tylenol) as long as you do not have liver problems. You can use the nasal spray??as directed. Your symptoms will start to improve 7 days after they start. Your cough will gradually improve overthe next 2-3weeks. You may also have lingering post nasal drip which will cause you cough up mucus,especially in the mornings. You should be seen again if your symptoms are not starting to improve after day 7 or if you developpain on one side of your face or in one ear.?? You should go to the emergency room if you develop severe cough, chest pain/tightness or shortness of breath??that does not respond quickly to albuterol. Scheduled Follow-Up Appointments 2023 9:10 AM EDT ?? With: Kelly Butler NP Where: [address] [address]- Status: Pending Future Orders XR Chest 2 Views Frontal and Lat, Routine, Reason for Exam: Cough, Once, *Est. 02/02/24 due within 3 days, Within 3 Days PTH Intact - Once, *Est. 10/02/23 +/- 60 days, Order for Today?? Vitamin D 25 Hydroxy Level - Once, *Est. 10/02/23 +/- 60 days, Order for Today?? Comprehensive Metabolic Panel - Once, *Est. 10/02/23 +/- 60 days, Order for Today?? Direct LDL - Once, *Est. 10/02/23 +/- 60 days, Single or Recurring Future Order?? Medications The list below reflects the information in our records and provided by you today along with any changes made during this visit. Please continue your medications until treatment is completed or stopped by your provider. If this is different from the information you have or there are other questions,please contact the prescribing provider. What How Much When Instructions Unchanged Aspirin (aspirin 81 mg oral delayed release tablet) 1 tab(s) Oral Daily Contact prescribing physician if questions or concerns ?? Unchanged Cholecalciferol (D3 50 mcg (2000 intl units) oral capsule) 1 capsule Oral Daily Contact prescribing physician if questions or concerns ?? Unchanged dapagliflozin (dapagliflozin 10 mg oral tablet) 1 tab(s) Oral Daily Contact prescribing physician if questions or concerns ?? Unchanged Diltiazem (DilTIAZem (Eqv-Cardizem CD) 180 mg/ 24 hours oral capsule, extended release) 1 capsule Oral Daily Contact prescribing physician if questions or concerns ?? Unchanged Durable Medical Equipment (Freestyle Lite Lancets) See instructions Check blood sugars three times a day DM Type 2 E11.9 Contact prescribing physician if questions or concerns ?? Unchanged Durable Medical Equipment (Freestyle Lite Test Strips) See instructions Check blood sugars three times a day DM Type 2 E11.9 Contact prescribing physician if questions or concerns ?? Unchanged Durable Medical Equipment (Pen Napa, 31 G x 5 mm BD Ultra Fine III) See instructions Use TID DM Type 2 on insulin E11.9 Contact prescribing physician if questions or concerns ?? Unchanged Folic Acid (folic acid 1 mg oral tablet) 1 tab(s) Oral Daily Contact prescribing physician if questions or concerns ?? Unchanged Insulin Aspart (NovoLOG FlexPen 100 units/ mL injectable solution) See instructions INJECT 0-18 UNITS SUBCUTANEOUSLY WITH MEALS FOR SLIDING SCALES Contact prescribing physician if questions or concerns ?? Unchanged Lamotrigine (LaMICtal 100 mg oral tablet) 1 tab(s) Oral Twice a day Duration: 30 Days Contact prescribing physician if questions or concerns ?? Unchanged Lisinopril (lisinopril 40 mg oral tablet) 1 tab(s) Oral Daily Contact prescribing physician if questions or concerns ?? Unchanged Lorazepam (Ativan 1 mg oral tablet) 1 tab(s) Oral 4 times a day Contact prescribing physician if questions or concerns ?? Unchanged Methylphenidate (methylphenidate 5 mg oral tablet) TAKE 1 TABLET BY MOUTH THREE TIMES A DAY Contact prescribing physician if questions or concerns ?? Unchanged Metoprolol (Metoprolol Tartrate 50 mg oral tablet) 1.5 tab(s) Oral Twice a day Contact prescribing physician if questions or concerns ?? Unchanged Multivitamin (Daily Simone oral tablet) 1 tab(s) Oral Daily Contact prescribing physician if questions or concerns ?? Unchanged Nitroglycerin (nitroglycerin 0.4 mg sublingual tablet) See instructions DISSOLVE 1 UNDER TONGUE EVERY 5 MINUTES NEEDED FOR CHEST PAIN CALL MD AFTER TAKING 3 TABS IN TOTAL IN A DAY Contact prescribing physician if questions or concerns ?? Unchanged Pregabalin (pregabalin 75 mg oral capsule) 1 capsule Oral Daily Duration: 30 Days APPT NEEDED FOR FURTHER REFILLS Contact prescribing physician if questions or concerns ?? Unchanged Quetiapine (SEROquel 300 mg oral tablet) 1 tab(s) Oral Daily at Bedtime Contact prescribing physician if questions or concerns ?? Unchanged Rosuvastatin (rosuvastatin 20 mg oral tablet) 1 tab(s) Oral Daily Contact prescribing physician if questions or concerns ?? Medications and Immunizations Administered Medications Given During Visit No medications given during this visit.?? Allergies (NKA means No Known Allergies) Bee Stings Common Emergency Awareness Tips IS IT A [...] are strongly encouraged to quit. Please call [facility] [employer] at [phone] or [phone]) or log in to [email or web address] for referrals to smoking cessation programs. ?? The National Suicide Prevention Hotline is available 26/01 if you or someone you know needs to find a reason to keep living. By calling 5-879-688-vnsh (8213) you'll be connected to a skilled, trained counselor at a crisis center in your area. [facility] You can view and manage your care through the patient portal or by using a health care [place] of your choosing. [employer] is a website that allows you to securely view your medical information including your hospital discharge summary, office visit summaries, medications and follow-up visits. You can also request appointments, renew medications, and request access to your medical information using a health care [place] of your choosing, or just ask a question. You can enroll at [email or web address] or register during your next office visit. [facility], in keeping with [facility] guidance, no longer requires face masks [...] primary care provider, you may find a [facility] provider by calling [facility] at [phone]. Patient Care team information Care Team Personnel Name: Jeffrey Mccoy MD Position: [facility] Renal Member Role: Lifetime Consulting Physician Address: Address: [address] [place] [address] [address] [facility] [place] [address]- [place] Name: Kelly Butler NP Position: [facility] PCO Associate Professional Member Role: PCP Address: Address: [address] [place] [address]- [place] Name: Kristin Mckenzie Position: [facility] Outreach Member Role: Lifetime Consulting Physician Name: Prieto Tobin RN Position: [facility] RN Member Role: Primary Care Nurse Name: Jonn Hui DO Position: [facility] Renal MD Member Role: Lifetime Consulting Physician Address: Address: [address] [place], [place] [address] [place] [address]- Name: Zafar RN, Luis Angel Rojas Position: [facility] RN Member Role: Primary Care Nurse Care Team Related Persons Name: CARLOS A BORDEN Address: home [address] [address] Name: LEVI BORDEN Address: home [address] [place] [address]
--- OUTSIDE RECORDS SUMMARY | 2024-06-01 11:55 | XMS_ITS | Continuity of Care Document ---
Author Organization [facility] ter Address [address] [place] [address]- Care Team Providers Care City Auditor Name Role Phone Carrie SPOOL CLEANER, Kelly Lopez Primary Care Physician [phone] Encounter [facility] [place] Date(s): 10/28/22 - 12/06/[address] [id number] Attending Physician: Kaden Aguayo MD Admitting [...] influenza virus vaccine, inactivated 04/16/10 Give n [id number] 12y+ bivalent booster vax 05/17/22 Recorded SARS-CoV-2 [...] tablet, 3 Refills, Maintenance, 09/30/21 12:28:00 EDT, [facility]/pharmacy#[id number], 175.2, cm, 09/20/21 8:36:00 EDT, Height, 88.3, [...] 5 Refills, Maintenance, 08/15/22 10:27:00 EST, Tablet, [facility]/pharmacy #[id number], 1 tablet By Mouth Daily,x30 [...] capsule, 0 Refills, Maintenance, 10/24/22 10:10:00 EDT, [facility]/pharmacy #[id number], 175, cm, 10/09/22 16:51:00 EDT, Height, 93, kg, 01/28/22 14:55:00 EDT, Dry Weight Start Date: 10/24/22 Status: Ordered docusate sodium 100 mg oral capsule 1 capsule, By Mouth, 2 times a day, PRN NEEDED FOR CONSTIPATION, # 60 capsule, 5 Refills, Maintenance, 07/18/22 11:59:00 EST, [facility]/pharmacy #[id number], 175, cm, 07/17/22 10:33:00 EST, Height, 93, kg, 01/28/22 14:55:00 EDT, Dry Weight Start Date: 07/18/22 Status: Ordered Flonase 50 mcg/inh nasal spray 1 sprays, Nares, Both, 2 times a day, # 16 Gm, 0 Refills, Maintenance, 09/05/22 9:15:00 EST, [place],[facility]/pharmacy #[id number], Partial fill upon patient request if the prescription is for a schedule II opioid drug., 1 sprays Nares, Both 2 times a day, 175, c... Start Date: 09/05/22 Status: Ordered folic acid 1 mg oral tablet 1, tablet, By Mouth, Daily, # 30 tablet, Refills 5, Tot. Refills 5, Maintenance, 08/15/22 10:27:00 EST, Route to Pharmacy Electronically, [facility]/pharmacy #[id number], 175, cm, 07/17/22 10:33:00 [...] 01/21/19 11:25:36 EDT, Route to Pharmacy Electronically, [id number], [facility]/pharmacy #[id number] Start Date: 01/21/19 Stop Date: 05/21/19 Status: Ordered lisinopril 40 mg oral tablet 1 tablet, By Mouth, Daily, # 90 tablet, 0 Refills, Maintenance, 10/24/22 10:11:00 EDT, [facility]/pharmacy#[id number], 175, cm, 10/09/22 16:51:00 EDT, Height, 93, kg, 01/28/22 14:55:00 EDT, Dry Weight Start Date: 10/24/22 Status: Ordered Metoprolol Tartrate 50 mg oral tablet 1.5 tablet, By Mouth, 2 times a day, # 270 tablet, 1 Refills, Maintenance, 09/01/22 13:28:00 EST, [facility] STORE 54538, 175, cm, 07/17/22 10:33:00 EST, Height, 93, kg, 01/28/22 14:55:00 EDT, Dry Weight Start Date: 09/01/22 Status: Ordered Nicotine 7 mg/24 hour patch 1 patch, Topically, Daily, # 30 patch, 0 Refills, Maintenance, 11/17/22 11:45:00 EDT, Patch, [facility]/pharmacy #[id number], Partial fill upon patient [...] tablet, 0 Refills, Maintenance, 10/03/22 15:53:00 EDT, [facility]/pharmacy #[id number], 175, cm, 09/17/22 13:59:00 EDT, Height,... Start Date: 10/03/22 Status: Ordered NovoLOG FlexPen 100 units/mL injectable solution See Instructions, INJECT 0-18 UNITS SUBCUTANEOUSLY WITH MEALS FOR SLIDING SCALES, # 15 Unknown, 2 Refills, 11/07/22 0:09:00 EDT, [facility]/pharmacy #[id number], 175, cm, 10/09/22 16:51:00 EDT, Height, 93, kg, 01/28/22 14:55:00 EDT, Dry Weight Start Date: 11/07/22 Status: Ordered Pen [place], 31 G x 5 mm BD Ultra [...] capsule, 2 Refills, Maintenance, 08/07/22 12:55:00EST, Capsule, [facility]/pharmacy #[id number], 175, cm, 07/17/22 10:33:00 EST, Height, 93, kg, 01/28/22 14:55:00EDT, Dry Weight Start Date: 08/07/22 Status: Ordered rosuvastatin 20 mg oral tablet 1 tablet, By Mouth, Daily, # 90 tablet, 1 Refills, Maintenance, 05/21/22 13:33:00 EST, [facility], 175, cm, 05/09/22 11:08:00 EDT, Height, 93, kg, 01/28/22 14:55:00 EDT, Dry Weight Start Date: 05/21/22 Status: Ordered Senna 8.6 mg oral tablet 1 or 2 tablets, By Mouth, Daily at bedtime, PRN, # 60 tablet, Refills 5, Tot. Refills 5, Maintenance, Constipation, 11/03/22 15:04:00 EDT, Route to Pharmacy Electronically, [facility]/pharmacy #[id number] Tablet,Partial fill upon patient request if the prescripti... Start Date: 11/03/22 Status: Ordered SEROquel 100 mg oral tablet 100 mg, 1, tablet, By Mouth, 2 times a day, PRN, # 1 tablet, Refills 2, Tot. Refills 2, Maintenance, Anxiety, 09/21/19 10:41:00 EDT, Route to Pharmacy Electronically, [facility]/pharmacy #[id number], 172, cm, 09/05/19 16:17:00 [...] 9 Unknown, 1 Refills, 01/21/22 15:39:00 EDT, [facility]/pharmacy #[id number], 175.2, cm, 12/18/21 14:10:00 EDT, Height... Start Date: 01/21/22 Status: Ordered Trulicity Pen 0.75 mg/0.5 mL subcutaneous solution 0.5 mL = 0.75 mg, Subcutaneous Injection, Every week, # 2.5 mL, 2 Refills, Maintenance, 04/08/22 9:12:00 EDT, Solution, [facility]/pharmacy #[id number], Partial fill upon patient [...] 4, GFR 15-29 ml/min Confirmed Active ASHD; [place] 2012/stent circumflex vessel cath;abdelrahman 2018 3 Confirmed [...] mild to moderate. 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 2013/[place] 4secondary to hep C 524 weeks therapy with sofosbuvir/weight based ribavirin 82004 inferolateral stent bare metal circumflex 7DR Molddoverno [...] Team Personnel Name: Jeffrey Mccoy MD Position: [facility] Renal MD Member Role: Lifetime Consulting Physician Address: Address: [address] [place] [address] [facility] [place] [address]- Name: Kelly Butler NP Position: [facility] PCO Associate Professional Member Role: PCP Address: Address: [address] [place] [address]- Name: Kristin Mckenzie Position: [facility] Outreach Member Role: Lifetime Consulting Physician Name: Prieto Tobin RN Position: [facility] RN Member Role: Primary Care Nurse Name: Jonn Hui DO Position: [facility] Renal MD Member Role: Lifetime Consulting Physician Address: Address: [address] [place], [place] [address] [place], [place] [address] Name: Luis Angel Stephen RN Position: [facility] RN Member Role: Primary Care Nurse Name: Tamie Baird RN Position: [facility] RN Member Role: Primary Care Nurse Care Team Related Persons Name: CARLOS A BORDEN Address: home [address] [place] [address] Name: LEVI BORDEN Address: home [address] [place] [address]
--- OUTSIDE RECORDS SUMMARY | 2024-06-01 11:55 | XMS_ITS | Continuity of Care Document ---
Author Organization [facility] L[facility]aro lt Address [address] [place] [address]- Care Team Providers Care Coupon Collection Clerk Name Role Phone Carrie Kelly RIVERA Primary Care Physician [place] [facility] [place]25[place]23 - 12/23/23 [facility] [address] [place] [address]- Attending Physician: Not on Staff, Attending MD Allergies, Adverse Reactions, Alerts Substance Reaction Severity Status Bee Stings Active Immunizations Given and Recorded Vaccine Date Status Refusal Reason tetanus/diphtheria/pertussis, acel(Tdap) 10/15/23 Recorded tetanus/diphtheria/pertussis, acel(Tdap) 07/28/11 Given SARS-CoV-2(COVID-19)mRNA-LNP vac([id number]) 05/08/23 Recorded pneumococcal 20-valent conjugate vaccine 1 05/01/23 Given influenza virus vaccine, inactivated 2 05/01/23 Gi aarcely influenza virus vaccine, inactivated 05/17/22 Andrew rded [...] 02/03/23 Recorded zoster vaccine, inactivated 08/09/19 Recorded [id number] 12y+ bivalent booster vax 05/17/22 Recorded SARS-CoV-2 [...] adult vaccine 4 12/10/10 Given 1Result Comment: [id number] 2Result Comment: [id number] 3Admin Note: pt waited 10 mins post inj no adverse reaction noted.thierno kong 4Admin Note: PT WAITED 10 MIN WITH NO ADVERSE REACTION. Medications aspirin 81 mg oral delayed release tablet 1 tablet, By Mouth, Daily, # 90 tablet, 1 Refills, Maintenance, 06/02/23 11:42:00 EST, [facility]/pharmacy#[id number], 168, cm, 05/01/23 14:45:00 EDT, Height, [...] capsule, 0 Refills, Maintenance, 12/09/23 14:09:00 EDT, [facility]/pharmacy #[id number], 168, cm, 10/27/23 15:34:00 EDT, Height, 93, kg, 01/28/22 14:55:00 EDT, Dry Weight Start Date: 12/09/23 Status: Ordered Daily Simone oral tablet 1 tablet, By Mouth, Daily, # 90 tablet, 1 Refills, Maintenance, 06/30/23 7:20:00 EST, [facility], 90, TAKE 1 TABLET BY MOUTH EVERY [...] capsule, 0 Refills, Maintenance, 11/10/23 22:03:00 EDT, [facility] STORE [facility]1316, 168, cm, 10/27/23 15:34:00 EDT, Height, 93, kg, 01/28/22 14:55:00 EDT, Dry Weight Start Date: 11/10/23 Status: Ordered folic acid 1 mg oral tablet 1, tablet, By Mouth, Daily, # 90 tablet, Refills 1, Tot. Refills 1, Maintenance, 07/03/23 10:01:00 EST, Route to Pharmacy Electronically, [facility]/pharmacy #[id number], 168, cm, 05/01/23 14:45:00 EDT, [...] 01/21/19 11:25:36 EDT, Route to Pharmacy Electronically, [id number], [facility]/pharmacy #[id number] Start Date: 01/21/19 Stop Date: 05/21/19 Status: Ordered lamotrigine 100 mg oral tablet Refills 0, Maintenance, 05/01/23 15:28:00 EDT, Partial fill upon patient request if the prescription is for a schedule II opioid drug. Start Date: 05/01/23 Status: Ordered lisinopril 40 mg oral tablet 1 tablet, By Mouth, Daily, # 90 tablet, 1 Refills, Maintenance, 08/17/23 13:33:00 EST, [facility]/pharmacy#[id number], 168, cm, 07/23/23 15:05:00 EST, Height, 93, kg, 01/28/22 14:55:00 EDT, Dry Weight Start Date: 08/17/23 Status: Ordered Metoprolol Tartrate 50 mg oral tablet 1.5 tablet, By Mouth, 2 times a day, # 270 tablet, 1 Refills, Maintenance, 09/16/23 14:32:00 EDT, [facility]/pharmacy #[id number], 168, cm, 07/23/23 15:05:00 EST, Height, 93, kg, 01/28/22 14:55:00 EDT, Dry Weight Start Date: 09/16/23 Status: Ordered nitroglycerin 0.4 mg sublingual tablet See Instructions, DISSOLVE 1 UNDER TONGUE EVERY 5 MINUTES NEEDED FOR CHEST PAIN CALL MD AFTER TAKING 3 TABS IN TOTAL IN A DAY, # 100 tablet, 0 Refills, Maintenance, 10/03/22 15:53:00 EDT, [facility]/pharmacy #[id number], 175, cm, 09/17/22 13:59:00 EDT, Height,... Start Date: 10/03/22 Status: Ordered NovoLOG FlexPen 100 units/mL injectable solution See Instructions, INJECT 0-18 UNITS SUBCUTANEOUSLY WITH MEALS FOR SLIDING SCALES, # 15 Unknown, 2 Refills, 11/07/22 0:09:00 EDT, [facility]/pharmacy #[id number], 175, cm, 10/09/22 16:51:00 EDT, Height, 93, kg, 01/28/22 14:55:00 EDT, Dry Weight Start Date: 11/07/22 Status: Ordered Pen [place], 31 G x 5 mm BD Ultra [...] Refills, Maintenance, 11/10/23 22:03:00 EDT, [facility], 168, cm, 10/27/23 15:34:00 EDT, Height, 93, [...] mild to moderate. 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 524 weeks therapy with sofosbuvir/weight based ribavirin 36039 inferolateral stent bare metal circumflex 7DR Molddoverno [...] Team Personnel Name: Jeffrey Mccoy MD Position: [facility] Renal MD Member Role: Lifetime Consulting Physician Address: Address: [address] [place] [address] [address] [facility] [place] [address]- Name: Kelly Butler NP Position: [facility] PCO Associate Professional Member Role: PCP Address: Address: [address] [place] [id number]- Name: Kristin Mckenzie Position: [facility] Outreach Member Role: Lifetime Consulting Physician Name: Prieto Tobin RN Position: [facility] RN Member Role: Primary Care Nurse Name: Jonn Hui DO Position: [facility] Renal MD Member Role: Lifetime Consulting Physician Address: Address: [address] [place] [address] [address] [facility] [place] [place] [address] Name: Zafar CALVO, Luis Angel Rojas Position: [facility] RN Member Role: Primary Care Nurse Care Team Related Persons Name: CARLOS A BORDEN Address: [address] [place] [address] Name: LEVI BORDEN Address: [address] [place] [address]
--- OUTSIDE RECORDS SUMMARY | 2024-06-01 11:55 | XMS_ITS | Continuity of Care Document ---
Author Organization [facility] Address [address] [place] [address]- Care Team Providers Care Medical Billing Specialist Name Role Phone Carrie Kelly RIVERA Primary Care Physician [phone] Encounter [facility] [place] Date(s): 02/29/24 - 05/01/24 [facility] [address] [place] [address]- Attending Physician: Zev RIVERA, Chapo Syed Admitting Physician: Chapo Brothers NP Allergies, Adverse Reactions, Alerts Substance Reaction [...] virus vaccine, inactivated 04/16/10 Give n SARS-CoV-2(COVID-19)mRNA-LNP vac([id number]) 12/31/23 Recorded SARS-CoV-2(COVID-19)mRNA-LNP vac([id number]) 05/08/23 Recorded tetanus/diphtheria/pertussis, acel(Tdap) 10/15/23 Recorded tetanus/diphtheria/pertussis, acel(Tdap) 07/28/11 Given pneumococcal 20-valent conjugate vaccine 3 05/01/23 Given zoster vaccine, inactivated 02/03/23 Recorded zoster vaccine, inactivated 08/09/19 Recorded [id number] 12y+ bivalent booster vax 05/17/22 Recorded SARS-CoV-2 [...] 12/10/10 Given 1Result [facility] Comment: [id number] 3Result Comment: [id number] 4Admin Note: pt waited 10 mins post inj no adverse reaction noted.j a 5Admin Note: PT WAITED 10 MIN WITH NO ADVERSE REACTION. Medications albuterol 90 mcg/inh inhalation powder 1 puffs, Inhalation, Every 6 hours, PRN Wheezing/Shortness of Breath, # 1 each, 0 Refills, Maintenance, 02/15/24 13:38:00 EDT, Powder, [facility]/pharmacy #[id number], Partial fill upon patient request if the prescription is for a schedule II opioid drug., 1 puffs... Start Date: 02/15/24 Status: Ordered amLODIPine 10 mg oral tablet 10 mg, By Mouth, Daily, # 30 tablet, Refills 5, Tot. Refills 5, Maintenance, 03/11/24 11:59:00 EDT,Route to Pharmacy Electronically, [facility]/pharmacy #[id number], Partial fill upon patient request if the prescription is for a schedule II opioid drug., 168, cm,... Start Date: 03/11/24 Stop Date: 09/07/24 Status: Ordered aspirin 81 mg oral delayed release tablet 1 tablet, By Mouth, Daily, # 90 tablet, 1 Refills, Maintenance, 01/25/24 21:53:00 EDT, [facility]/pharmacy#[id number], 168, cm, 01/11/24 14:42:00 EDT, Height, [...] 0 Refills, Maintenance, 01/11/24 14:46:00 EDT, Tablet, [facility]/pharmacy #[id number], Partial fill upon patient request if the prescription is for a schedule II opioid drug., 168, cm, 01/11/24 14:42:00 EDT, Height,... Start Date: 01/11/24 Status: Ordered Flonase Allergy Relief 50 mcg/inh nasal spray See Instructions, 1 sprays Daily in each nostril, # 16 Gm, 0 Refills, Maintenance, 02/15/24 13:39:00 EDT, [facility]/pharmacy #[id number], Partial fill upon patient request if the prescription is for a schedule II opioid drug., 168, cm, 02/03/24 10:41:00 EDT, Height Start Date: 02/15/24 Status: Ordered folic acid 1 mg oral tablet 1, tablet, By Mouth, Daily, # 90 tablet, Refills 1, Tot. Refills 1, Maintenance, 02/17/24 7:23:00 EDT, Route to Pharmacy Electronically, [facility]/pharmacy #[id number], 168, cm, 02/15/24 13:43:00 EDT, [...] 01/21/19 11:25:36 EDT, Route to Pharmacy Electronically, [id number], [facility]/pharmacy #[id number] Start Date: 01/21/19 Stop Date: 05/21/19 Status: Ordered lisinopril 10 mg oral tablet 10 mg, 1, tablet, By Mouth, Daily, # 90 tablet, Refills 0, Tot. Refills 0, Maintenance, 04/19/24 9:02:00 EDT, Route to Pharmacy Electronically, [facility]/pharmacy #[id number], 168, cm, 04/15/24 10:23:00 EDT, [...] tablet, 0 Refills, Maintenance, 03/17/24 14:24:00 EDT, [facility]/pharmacy #[id number], 168, cm, 03/17/24 9:46:00 EDT, Height Start Date: 03/17/24 Status: Ordered nitroglycerin 0.4 mg sublingual tablet See Instructions, DISSOLVE 1 UNDER TONGUE EVERY 5 MINUTES NEEDED FOR CHEST PAIN CALL MD AFTER TAKING 3 TABS IN TOTAL IN A DAY, # 100 tablet, 0 Refills, Maintenance, 10/03/22 15:53:00 EDT, [facility]/pharmacy #[id number], 175, cm, 09/17/22 13:59:00 EDT, Height,... Start Date: 10/03/22 Status: Ordered NovoLOG FlexPen 100 units/mL injectable solution See Instructions, INJECT 0-18 UNITS SUBCUTANEOUSLY WITH MEALS FOR SLIDING SCALES, # 15 Unknown, 2 Refills, 01/12/24 14:36:00 EDT, [facility]/pharmacy #[id number], MAX DAILY DOSE 54 UNITS, [...] mL, 0 Refills, Maintenance, 02/02/24 15:28:00 EDT, [place], [facility]/pharmacy #[id number], Partial fill upon patient... Start Date: 02/02/24 Status: Ordered Pen [place], 31 G x 5 mm BD Ultra [...] Refills, Maintenance, 02/04/24 16:39:00 EDT, [facility], 168, cm, 02/03/24 10:41:00 EDT, Height Start [...] 4, GFR 15-29 ml/min Confirmed Active ASHD; [place] 2013/stent circumflex vessel cath;abdelrahman 2018 3 Confirmed Active [...] mild to moderate. 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 524 weeks therapy with sofosbuvir/weight based ribavirin 15349 inferolateral stent bare metal circumflex 7DR Moldvernmateo sx;Dr Schwartz 8hyperplatic polyp repeat screening in [...] Team Personnel Name: Jeffrey Mccoy MD Position: [facility] Renal MD Member Role: Lifetime Consulting Physician Address: Address: [address] [place] [address] [address] [facility] [place] [address]- Name: Kelly Butler NP Position: [facility] PCO Associate Professional Member Role: PCP Address: Address: [address] [place] [id number]- [place] Name: Kristin Mckenzie Position: [facility] Outreach Member Role: Lifetime Consulting Physician Name: Fortunato Sin RN Position: [facility] RN Member Role: Primary Care Nurse Name: Nury Watts RN Position: [facility] RN Member Role: Primary Care Nurse Name: Antonia Mena NP Position: [facility] Associate Professional Member Role: Lifetime Consulting Provider Address: Address: [address] [place] [address] [address] [facility] [place] [address]- Name: Prieto Tobin RN Position: [facility] RN Member Role: Primary Care Nurse Name: Ashleigh Reynoso RN Position: [facility] RN Member Role: Primary Care Nurse Name: Jonn Hui DO Position: [facility] Renal MD Member Role: Lifetime Consulting Physician Address: Address: [address] [place] [address] [address] [facility] [place] [place] - Name: Luis Angel Stephen RN Position: [facility] RN Member Role: Primary Care Nurse Name: Brandan Nogueira RN Position: [facility] RN Member Role: Primary Care Nurse Care Team Related Persons Name: CARLOS A BORDEN Address: [address] [place] [address] Name: LEVI BORDEN Address: home [address] [place] [address]
--- OUTSIDE RECORDS SUMMARY | 2024-06-01 11:55 | XMS_ITS | Continuity of Care Document ---
Author Organization [facility] Shawn Lazaro lt Address [address] [place] [address]- Care Team Providers Care Android Programmer Name Role Phone Carrie Kelly RIVERA Primary Care Physician [phone] Encounter [facility] Date(s): 09/16/22 - 10/16/22 [facility] Shawn Adult [address] [place] [address]- Allergies, Adverse Reactions, Alerts Substance Reaction Severity [...] influenza virus vaccine, inactivated 04/16/10 Give n [id number] 12y+ bivalent booster vax 05/17/22 Recorded SARS-CoV-2 [...] 13:11:38 EDT Start Date: 12/27/15 Status: Ordered azithromycin 250 mg oral tablet See Instructions, Take 2 tablets on day 1 and 1 tablet daily for next 4 days, # 6 tablet, 0 Refills, Maintenance, 09/05/22 9:14:00 EST, Tablet, [id number], Partial fill upon patient request if the prescription is for a schedule II opioid drug.... Start Date: 09/05/22 Status: Ordered Azithromycin 5 Day Dose Pack 250 mg oral tablet See Instructions, Two tabs PO QD Day one, then one tab QD until gone, # 6 tablet, 0 Refills, Soft Stop, 09/17/22 14:22:00 EDT, Tablet, [id number], Partial fill upon patient request if the prescription is for a schedule II opioid drug., 175, cm... Start Date: 09/17/22 Status: Ordered Blood Pressure Monitor See Instructions, [...] Refills, Maintenance, 05/21/22 13:33:00 EST, [id number], 175, cm, 05/09/22 11:08:00 EDT, Height, 93, kg, 01/28/22 14:55:00 EDT, Dry Weight Start Date: 05/21/22 Status: Ordered docusate sodium 100 mg oral capsule 1 capsule, By Mouth, 2 times a day, PRN NEEDED FOR CONSTIPATION, # 60 capsule, 5 Refills, Maintenance, 07/18/22 11:59:00 EST, [id number], 175, cm, 07/17/22 10:33:00 EST, Height, 93, kg, 01/28/22 14:55:00 EDT, Dry Weight Start Date: 07/18/22 Status: Ordered Flonase 50 mcg/inh nasal spray 1 sprays, Nares, Both, 2 times a day, # 16 Gm, 0 Refills, Maintenance, 09/05/22 9:15:00 EST, [place],[id number], Partial fill upon patient request if the prescription is for a schedule II opioid drug., 1 sprays Nares, Both 2 times a day, 175, c... Start Date: 09/05/22 Status: Ordered folic acid 1 mg oral tablet 1, tablet, By Mouth, Daily, # 30 tablet, Refills 5, Tot. Refills 5, Maintenance, 08/15/22 10:27:00 EST, Route to Pharmacy Electronically, [facility]pharmacy #[id number], 175, cm, 07/17/22 10:33:00 EST, [...] 01/21/19 11:25:36 EDT, Route to Pharmacy Electronically, [id number], [facility]/pharmacy #[id number] Start Date: 01/21/19 Stop Date: 05/21/19 Status: Ordered lisinopril 40 mg oral tablet 1 tablet, By Mouth, Daily, # 90 tablet, 1 Refills, Maintenance, 05/07/22 14:29:00 EDT, [id number], 175, cm, 04/08/22 8:34:00 EDT, Height, 93, kg, 01/28/22 14:55:00 EDT, Dry Weight Start Date: 05/07/22 Status: Ordered Metoprolol Tartrate 50 mg oral tablet 1.5 tablet, By Mouth, 2 times a day, # 270 tablet, 1 Refills, Maintenance, 09/01/22 13:28:00 EST, [facility], 175, cm, 07/17/22 10:33:00 EST, Height, 93, kg, 01/28/22 14:55:00 EDT, Dry Weight Start Date: 09/01/22 Status: Ordered Nicotine 7 mg/24 hour patch 1 patch, Topically, Daily, # 30 patch, 1 Refills, Maintenance, 09/26/22 7:49:00 EDT, Patch, [facility]/pharmacy #[id number], Partial fill upon patient request if the prescription is for a schedule II opioid drug., 1 patch Topically Daily, 175, cm, 09/17/22 13:59:0... Start Date: 09/26/22 Status: Ordered nitroglycerin 0.4 mg [...] SLIDING SCALES, # 15 Unknown, 2 Refills, [facility], 175.2, cm, 05/27/21 11:26:00 EST, Height, 88.3, kg, 03/12/21 9:16:00 EDT, Dry Weight Start Date: 06/04/21 Status: Ordered Pen [place], 31 G x 5 mm BD Ultra [...] capsule, 2 Refills, Maintenance, 08/07/22 12:55:00EST, Capsule, [id number], 175, cm, 07/17/22 10:33:00 EST, Height, 93, kg, 01/28/22 14:55:00EDT, Dry Weight Start Date: 08/07/22 Status: Ordered rosuvastatin 20 mg oral tablet 1 tablet, By Mouth, Daily, # 90 tablet, 1 Refills, Maintenance, 05/21/22 13:33:00 EST, [facility], 175, cm, 05/09/22 11:08:00 EDT, Height, 93, kg, 01/28/22 14:55:00 EDT, Dry Weight Start Date: 05/21/22 Status: Ordered SEROquel 100 mg oral tablet 100 mg, 1, tablet, By Mouth, 2 times a day, PRN, # 1 tablet, Refills 2, Tot. Refills 2, Maintenance, Anxiety, 09/21/19 10:41:00 EDT, Route to Pharmacy Electronically, [facility]/pharmacy #[id number], 172, cm, 09/05/19 16:17:00 EST, [...] 9 Unknown, 1 Refills, 01/21/22 15:39:00 EDT, [facility]/pharmacy #[id number], 175.2, cm, 12/18/21 14:10:00 EDT, Height... Start Date: 01/21/22 Status: Ordered Trulicity Pen 0.75 mg/0.5 mL subcutaneous solution 0.5 mL = 0.75 mg, Subcutaneous Injection, Every week, # 2.5 mL, 2 Refills, Maintenance, 04/08/22 9:12:00 EDT, Solution, [facility]/pharmacy #[id number], Partial fill upon patient request if the prescription is for a schedule II opioid drug., 175, cm, 04/08/22 8:34... Start Date: 04/08/22 Status: Ordered Ventolin HFA 108 mcg/inh inhalation aerosol with adapter 2 puffs, Inhalation, Every 4 hours, PRN for wheezing, for 180 days, # 1 each, 0 Refills, Acute 03/05/23 16:25:00 EDT, 09/06/22 16:25:00 EST, Aerosol, [facility]/pharmacy #[id number], Partial fill upon patient request if the prescription is for a schedule II opioid... Start Date: 09/06/22 Stop Date: 03/05/23 Status: Ordered Vitamin D3 2000 intl units oral capsule 1 capsule, By Mouth, Daily, # 30 capsule, 0 Refills, 10/06/22 13:42:00 EDT, [id number], 175, cm, 09/17/22 13:59:00 EDT, Height, 93, kg, 01/28/22 14:55:00 EDT, Dry Weight Start Date: 10/06/22 Status: Ordered Problem List Condition Confirmation Course [...] mild to moderate. 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 weeks therapy with sofosbuvir/weight based ribavirin 75262 inferolateral stent bare metal circumflex 7DR Marissa [...] Member Role: Lifetime Consulting Physician Address: Address: [address] [facility] [place] [address]- Name: Kelly Butler NP Position: [facility] PCO Associate Professional Member Role: PCP Address: Address: [address] [place] [address]- Name: Kristin Mckenzie Position: [facility] Outreach Member Role: Lifetime Consulting Physician Name: Prieto Tobin RN Position: [facility] RN Member Role: Primary Care Nurse Name: Jonn Hui DO Position: [facility] Renal MD Member Role: Lifetime Consulting Physician Address: Address: [address] [place], [place] [address] [place] [address]- Name: Luis Angel Stephen RN Position: [facility] RN Member Role: Primary Care Nurse Name: Tamie Baird RN Position: [facility] RN Member Role: Primary Care Nurse Care Team Related Persons Name: CARLOS A BORDEN Address: home [address] [place] [address] Name: LEVI BORDEN Address: home [address] [place] [address]
--- OUTSIDE RECORDS SUMMARY | 2024-06-01 11:55 | XMS_ITS | Continuity of Care Document ---
Author Organization [facility] Shawn Lazaro lt Address [address] [place] [address]- Care Team Providers Care Admissions Clerk Name Role Phone Aylin HICKMAN, Ben Willis Primary Care Physician [facility]counter [facility] Date(s): 09/25/20 - 10/25/20 [facility] Nando Palominoley Adult [address] [place] [address]- Allergies, Adverse Reactions, Alerts Substance Reaction Severity [...] 10:48:07 EST, Aerosol, Route to Pharmacy Electronically, [id number], [facility]/pharmacy #[id number], 180, cm, 06/17/19 10:36:11 EST, Height Start Date: 06/17/19 Status: Ordered aspirin 81 mg oral delayed release tablet 1 tablet, By Mouth, Daily, # 30 tablet, 11 Refills, Maintenance, 06/26/20 12:19:00 EST, [facility], 175, cm, 06/25/20 16:11:00 EST, Height, 83.6, [...] Refills, Maintenance, 01/02/20 15:47:00 EDT, CR Capsule, [facility]/pharmacy #[id number], 172, cm, 12/14/19 8:02:00 EDT, Height, 97.8, kg, 08/11/19 5:24:00 EST, Dry Weight Start Date: 01/02/20 Stop Date: 12/27/20 Status: Ordered cholecalciferol 2000 intl units oral capsule 1 capsule = 2,000 International_Units, By Mouth, Daily, # 30 capsule, 5 Refills, Maintenance, 05/25/20 11:53:00 EST, Capsule, [facility]/pharmacy #[id number], 175, cm, 05/24/20 12:46:00 EST, Height, 83.6, kg, 04/23/20 17:46:00 EDT, Dry Weight Start Date: 05/25/20 Status: Ordered cloNIDine 0.2 mg oral tablet 0.2 mg, 1, tablet, By Mouth, 2 times a day, # 60 tablet, Refills 5, Tot. Refills 5, Maintenance, 09/09/20 19:43:00 EST, Route to Pharmacy Electronically, [facility]/pharmacy #[id number], 175, cm, 07/20/20 10:29:00 EST, Height, 83.6, kg, 04/23/20 17:46:00 EDT, Dry... Start Date: 09/09/20 Status: Ordered Colace sodium 100 mg oral capsule 100 mg, 1, capsule, By Mouth, 2 times a day, PRN, # 60 capsule, Refills 5, Tot. Refills 5, Maintenance, for constipation, 02/27/20 15:25:00 EDT, Route to Pharmacy Electronically, [facility]/pharmacy #[id number], 172, cm, 12/14/19 8:02:00 EDT, Height, 97.8, kg, ... Start Date: 02/27/20 Status: Ordered Crestor 20 mg oral tablet 1 tablet = 20 mg, By Mouth, Daily, # 90 tablet, 3 Refills, Maintenance, 01/02/20 15:46:00 EDT, Tablet, [facility]/pharmacy #[id number], 172, cm, 12/14/19 8:02:00 EDT, Height, 97.8, kg, 08/11/19 5:24:00 EST, Dry Weight Start Date: 01/02/20 Status: Ordered Daily Simone oral tablet 1 tablet, By Mouth, Daily, # 90 tablet, 3 Refills, Maintenance, 09/21/20 11:35:00 EDT, Tablet, [facility]/pharmacy #[id number], Partial fill upon patient request if the prescription is for a schedule II opioid drug., 1 tablet By Mouth Daily, 175, cm, 09/21/20 11:2... Start Date: 09/21/20 Status: Ordered Daily Simone oral tablet 1 tablet, By Mouth, Daily, # 30 tablet, 5 Refills, Maintenance, 09/19/20 8:25:00 EDT, Tablet, [facility]/pharmacy #[id number], 1 tablet By Mouth Daily,x30 days, 175, cm, 07/20/20 10:29:00 EST, Height, 83.6, kg, 04/23/20 17:46:00 EDT, Dry Weight Start Date: 09/19/20 Stop Date: 03/18/21 Status: Ordered folic acid 1 mg oral tablet 1 mg, 1, tablet, By Mouth, Daily, # 30 tablet, Refills 5, Tot. Refills 5, Maintenance, 07/04/20 13:24:00 EST, Route to Pharmacy Electronically, [facility]/pharmacy #[id number], 175, cm, 06/25/20 16:11:00 EST, [...] tablet, 5 Refills, Maintenance, 02/27/20 15:23:00 EDT, [facility]/pharmacy #[id number], 172, cm, 12/14/19 8:02:00 EDT, Height, 97.8, kg, 08/11/19 5:24:00 EST, Dry Weight Start Date: 02/27/20 Status: Ordered Golytely - oral powder for reconstitution 240 mL, By Mouth, Daily, bowel instruction, # 4,000 mL, 0 Refills, Maintenance, 06/21/20 16:44:00 EST, REC Powder, [facility]/pharmacy #[id number], Partial fill upon patient request if the prescription is for a schedule II opioid drug., 240 mL By Mouth Daily,Instr... Start Date: 06/21/20 Status: Ordered LaMICtal 100 mg oral tablet 100 mg, 1, tablet, By Mouth, 2 times a day, # 60 tablet, Refills 3, Tot. Refills 3, Maintenance, 01/21/19 11:25:36 EDT, Route to Pharmacy Electronically, [id number], [facility]/pharmacy #[id number] Start Date: 01/21/19 Stop [...] stop metoprolol 50 mg twice daily, # 270 tablet, Refills 0, Tot. Refills 0, Maintenance, 08/27/20 8:08:00 EST, Route to Pharmacy Electronically, [facility]/pharmacy #[id number], 175, cm, 07/20/20 10:29:00 EST, Height, 8... Start Date: 08/27/20 Status: Ordered nicotine 2 mg oral transmucosal lozenge See Instructions, suck, up to q1 hrs 10 daily, # 144 lozenge, 1 Refills, Maintenance, 09/25/20 14:21:00 EDT, [facility]/pharmacy #[id number], suck, up to q1 hrs 10 daily, 175, cm, 09/21/20 11:29:00 EDT, Height, 83.6, kg, 04/23/20 17:46:00 EDT, Dry Weight Start Date: 09/25/20 Status: Ordered nicotine 4 mg oral transmucosal lozenge 1 lozenge = 4 mg, By Mouth, Every hour, dispense 2 boxes of 81 count as directed on package labeling, # 162 lozenge, 3 Refills, Maintenance, 09/25/20 14:39:00 EDT, [facility]/pharmacy #[id number], 1 lozenge By Mouth Every [...] 2 Refills, Soft Stop, 06/01/20 13:51:00 EST, [facility]/pharmacy #[id number], 175, cm, 05/24/20 12:46:00 EST, [...] 9:13:... Start Date: 02/01/20 Status: Ordered Pen [place], 31 G x 5 mm BD Ultra Fine III See Instructions, # 150 each, Refills 11, Tot. Refills 11, Maintenance, Test blood sugar 5 times daily, 08/24/20 16:35:00 EST, DM E11.9, Compound, 175, cm, 07/20/20 10:29:00 EST, Height, 83.6, kg, 04/23/20 17:46:00 EDT, Dry Weight Start Date: 08/24/20 Status: Ordered senna - oral tablet 2 tablet, By Mouth, Daily at bedtime, PRN for constipation, PRN, # 60 tablet, 1 Refills, Maintenance, 09/08/17 9:54:01, Tablet Start Date: 09/08/17 Status: Ordered SEROquel 100 mg oral tablet 100 mg, 1, tablet, By Mouth, 2 times a day, # 60 tablet, Refills 2, Tot. Refills 2, Maintenance, 09/21/19 10:41:00 EDT, Route to Pharmacy Electronically, [facility]/pharmacy #[id number], 172, cm, 09/05/19 16:17:00 [...] EST, Tablet, this was previously sent to [facility] pharmacy Start Date: 05/17/19 Stop Date: 05/11/20 Status: Ordered Tresiba FlexTouch 200 units/mL subcutaneous solution = 70 units, Subcutaneous Infusion, Daily, at bedtime, # 15 mL, 5 Refills, Maintenance, 08/04/19 13:13:00 EST, [facility]/pharmacy #[id number], 180, cm, 08/01/19 10:43:00 EST, Height Start Date: 08/04/19 Status: Ordered Problem List Condition Effective Dates Status Health Status Inform ant Acute pancreatitis(Confirmed) 07/16/16 Active Adenomatous colon polyp colo noscopy 2015(Confirmed) Active Bipolar disorder(Confirmed) Active Cervical spondylosis(Confirmed) Active Chronic back pain DJD(Confirmed) Active Glomerulonephritis,mesangial proliferative/fibrillary(Confirmed) 1, 2 Active ASHD; [place] 2012/stent circumfl ex vessel cath;abdelrahman 2018(Confirmed) 3 [...] of acute myocardial infarction of inferior wall 2013/stent(Confirmed) 6 Active Hyperlipidemia(Confirmed) Active Hypertension(Confirmed) Active LVH [...] mild to moderate. 3MI 2012 circumflex stent 2013/[place] 4secondary to hep C 524 weeks therapy with sofosbuvir/weight based ribavirin 17139 inferolateral stent bare metal circumflex 7DR Molddoverno [...]
--- OUTSIDE RECORDS SUMMARY | 2024-06-01 11:55 | XMS_ITS | Continuity of Care Document ---
Author Organization [facility] Address [address] [place] [address]- Care Team Providers Care Hand Engraver Name Role Phone Aylin HICKMAN, Ben Willis Primary Care Physician Encounter [facility] Date(s): 06/25/20 - 07/25/20 [facility] [address] [place] [address] Allergies, Adverse Reactions, Alerts Substance Reaction [...] 10:48:07 EST, Aerosol, Route to Pharmacy Electronically, [id number], [facility]/pharmacy #[id number], 180, cm, 06/17/19 10:36:11 EST, Height Start Date: 06/17/19 Status: Ordered aspirin 81 mg oral delayed release tablet 1 tablet, By Mouth, Daily, # 30 tablet, 11 Refills, Maintenance, 06/26/20 12:19:00 EST, [facility], 175, cm, 06/25/20 16:11:00 EST, Height, 83.6, [...] Refills, Maintenance, 01/02/20 15:47:00 EDT, CR Capsule, [facility]/pharmacy #[id number], 172, cm, 12/14/19 8:02:00 EDT, Height, 97.8, kg, 08/11/19 5:24:00 EST, Dry Weight Start Date: 01/02/20 Stop Date: 12/27/20 Status: Ordered cholecalciferol 2000 intl units oral capsule 1 capsule = 2,000 International_Units, By Mouth, Daily, # 30 capsule, 5 Refills, Maintenance, 05/25/20 11:53:00 EST, Capsule, [facility]/pharmacy #[id number], 175, cm, 05/24/20 12:46:00 EST, Height, 83.6, kg, 04/23/20 17:46:00 EDT, Dry Weight Start Date: 05/25/20 Status: Ordered cloNIDine 0.2 mg oral tablet 0.2 mg, 1, tablet, By Mouth, 2 times a day, # 60 tablet, Refills 2, Tot. Refills 2, Maintenance, 06/22/20 10:52:00 EST, Route to Pharmacy Electronically, [facility]/pharmacy #[id number], 175, cm, 05/24/20 12:46:00 EST, Height, 83.6, kg, 04/23/20 17:46:00 EDT, Dry... Start Date: 06/22/20 Status: Ordered Colace sodium 100 mg oral capsule 100 mg, 1, capsule, By Mouth, 2 times a day, PRN, # 60 capsule, Refills 5, Tot. Refills 5, Maintenance, for constipation, 02/27/20 15:25:00 EDT, Route to Pharmacy Electronically, [facility]/pharmacy #[id number], 172, cm, 12/14/19 8:02:00 EDT, Height, 97.8, kg, 02... Start Date: 02/27/20 Status: Ordered Crestor 20 mg oral tablet 1 tablet = 20 mg, By Mouth, Daily, # 90 tablet, 3 Refills, Maintenance, 01/02/20 15:46:00 EDT, Tablet, [facility]/pharmacy #[id number], 172, cm, 12/14/19 8:02:00 EDT, Height, 97.8, kg, 08/11/19 5:24:00 EST, Dry Weight Start Date: 01/02/20 Status: Ordered Daily Simone oral tablet 1 tablet, By Mouth, Daily, # 30 tablet, 5 Refills, Maintenance, 03/01/20 14:48:00 EDT, Tablet, [facility]/pharmacy #[id number], 1 tablet By Mouth Daily,x30 days, 172, cm, 12/14/19 8:02:00 EDT, Height, 97.8, kg, 08/11/19 5:24:00 EST, Dry Weight Start Date: 03/01/20 Stop Date: 08/28/20 Status: Ordered folic acid 1 mg oral tablet 1 mg, 1, tablet, By Mouth, Daily, # 30 tablet, Refills 5, Tot. Refills 5, Maintenance, 07/04/20 13:24:00 EST, Route to Pharmacy Electronically, [facility]/pharmacy #[id number], 175, cm, 06/25/20 16:11:00 EST, Height, [...] tablet, 5 Refills, Maintenance, 02/27/20 15:23:00 EDT, [facility]/pharmacy #[id number], 172, cm, 12/14/19 8:02:00 EDT, Height, 97.8, kg, 08/11/19 5:24:00 EST, Dry Weight Start Date: 02/27/20 Status: Ordered Golytely - oral powder for reconstitution 240 mL, By Mouth, Daily, bowel instruction, # 4,000 mL, 0 Refills, Maintenance, 06/21/20 16:44:00 EST, REC Powder, [facility]/pharmacy #[id number], Partial fill upon patient request if the prescription is for a schedule II opioid drug., 240 mL By Mouth Daily,Instr... Start Date: 06/21/20 Status: Ordered LaMICtal 100 mg oral tablet 100 mg, 1, tablet, By Mouth, 2 times a day, # 60 tablet, Refills 3, Tot. Refills 3, Maintenance, 01/21/19 11:25:36 EDT, Route to Pharmacy Electronically, [id number], [facility]/pharmacy #[id number] Start Date: 01/21/19 Stop Date: [...] 01/02/20 15:45:00 EDT, Route to Pharmacy Electronically, [facility]/pharmacy #[id number], 172, cm, 12/14/19 8:02:00 EDT, Height, 9... Start Date: 01/02/20 Status: Ordered nicotine 2 mg oral transmucosal lozenge See Instructions, suck, up to q1 hrs 10 daily, # 144 lozenge, 1 Refills, Maintenance, 03/21/20 11:13:00 EDT, [facility]/pharmacy #[id number], suck, up to q1 hrs 10 daily, 172, cm, 03/21/20 11:04:00 EDT, Height, 97.8, kg, 08/11/19 5:24:00 EST, Dry Weight Start Date: 03/21/20 Status: Ordered nicotine 4 mg oral transmucosal lozenge 1 lozenge = 4 mg, By Mouth, Every hour, dispense 2 boxes of 81 count, # 189 lozenge, 1 Refills, Maintenance, 07/12/20 15:43:00 EST, [facility]/pharmacy #[id number], 1 lozenge By Mouth Every hour,Instr:dispense [...] 2 Refills, Soft Stop, 06/01/20 13:51:00 EST, [facility]/pharmacy #[id number], 175, cm, 05/24/20 12:46:00 EST, Height, [...] 9:13:... Start Date: 02/01/20 Status: Ordered Pen [place], 31 G x 5 mm BD Ultra [...] 09/21/19 10:41:00 EDT, Route to Pharmacy Electronically, [facility]/pharmacy #[id number], 172, cm, 09/05/19 16:17:00 EST, [...] Tablet, this was previously sent to [facility] pharmacy Start Date: 05/17/19 Stop Date: 05/11/20 Status: Ordered Tresiba FlexTouch 200 units/mL subcutaneous solution = 70 units, Subcutaneous Infusion, Daily, at bedtime, # 15 mL, 5 Refills, Maintenance, 08/04/19 13:13:00 EST, [id number], 180, cm, 08/01/19 10:43:00 EST, Height Start Date: 08/04/19 Status: Ordered Problem List Condition Effective Dates Status Health Status Inform ant Acute pancreatitis(Confirmed) 07/16/16 Active Adenomatous colon polyp(Confirmed) Active Bipolar disorder(Confirmed) Active Cervical spondylosis(Confirmed) Active Chronic back pain DJD(Confirmed) Active Glomerulonephritis,mesangial proliferative/fibrillary(Confirmed) 1, 2 Active ASHD; [place] 2012/stent circumfl ex vessel cath;abdelrahman 2018(Confirmed) 3 [...] 524 weeks therapy with sofosbuvir/weight based ribavirin 88072 inferolateral stent bare metal circumflex 7DR Molddoverno [...]
--- OUTSIDE RECORDS SUMMARY | 2024-06-01 11:55 | XMS_ITS | Continuity of Care Document ---
Author Organization [facility] Address [address] [place] [address]- Care Team Providers Care Neuro Urologist Name Role Phone Carrie LICENSED SOCIAL WORKER, Kelly Lopez Primary Care Physician [phone] [place] [facility] [place] 03/06/22 [facility] [address] [place] [address]- Attending Physician: Giorgio Farris MD Admitting Physician: Giorgio Farris MD Referring Physician: Ben Viera MD Allergies, [...] capsule, 5 Refills, Maintenance, 06/05/21 15:57:00 EST, [facility]/pharmacy #[id number], 175.2, cm, 05/27/21 11:26:00 EST, Height, 88.3, kg, 03/12/21 9:16:00 EDT, Dry Weight Start Date: 06/05/21 Status: Ordered folic acid 1 mg oral tablet 1, tablet, By Mouth, Daily, # 30 tablet, Refills 5, Tot. Refills 5, Maintenance, 07/25/21 15:59:00 EST, Route to Pharmacy Electronically, [facility]/pharmacy #[id number], 175.2, cm, 06/07/21 9:51:00 EST, Height, [...] 01/21/19 11:25:36 EDT, Route to Pharmacy Electronically, [id number], [facility]/pharmacy #[id number] Start Date: 01/21/19 Stop Date: 05/21/19 Status: Ordered lisinopril 40 mg oral tablet 1 tablet = 40 mg, By Mouth, Daily, # 30 tablet, 3 Refills, Maintenance, 09/17/21 10:50:00 EDT, Tablet, [facility]/pharmacy #[id number], Partial fill upon patient request if the prescription is for a schedule II opioid drug., 175.2, cm, 07/31/21 11:20:00 EST, Heigh... Start Date: 09/17/21 Status: Ordered Metoprolol Tartrate 50 mg oral tablet 1.5 tablet, By Mouth, 2 times a day, # 270 tablet, 0 Refills, [facility], 175.2, cm, 11/15/21 11:18:00 EDT, Height, 88.3, kg, 03/12/21 9:16:00 EDT, Dry Weight Start Date: 12/12/21 Status: Ordered nicotine 21 mg/24 hr transdermal film, extended release 1 patch, Topically, Daily, for 30 days, # 30 patch, 1 Refills, Acute 04/18/22 14:19:00 EDT, 02/17/22 14:19:00 EDT, Patch, [facility]/pharmacy #[id number], 1 patch Topically Daily,x30 days, 175, cm, 02/14/22 10:10:00 EDT, Height, 93, kg, 01/28/22 14:55:00 EDT, Dry... Start Date: 02/17/22 Stop Date: 04/18/22 Status: Ordered nitroglycerin 0.4 mg sublingual tablet See Instructions, DISSOLVE 1 UNDER TONGUE EVERY 5 MINUTES NEEDED FOR CHEST PAIN CALL MD AFTER TAKING 3 TABS IN TOTAL IN A DAY, # 100 tablet, 0 Refills, Maintenance, 12/31/21 17:21:00 EDT, [id number], 175.2, cm, 12/18/21 14:10:00 EDT, Height... Start Date: 12/31/21 Status: Ordered NovoLOG FlexPen 100 units/mL injectable solution See Instructions, INJECT 0-18 UNITS SUBCUTANEOUSLY WITH MEALS FOR SLIDING SCALES, # 15 Unknown, 2 Refills, [facility], 175.2, cm, 05/27/21 11:26:00 EST, Height, 88.3, kg, 03/12/21 9:16:00 EDT, Dry Weight Start Date: 06/04/21 Status: Ordered Pen [place], 31 G x 5 mm BD Ultra [...] capsule, 5 Refills, Maintenance, 11/19/21 11:25:00EDT, Capsule, [facility]/pharmacy #[id number], 175.2, cm, 11/15/21 11:18:00 EDT, Height, 88.3, kg, 03/12/21 9:16:00 EDT, Dry Weight Start Date: 11/19/21 Status: Ordered rosuvastatin 20 mg oral tablet 1 tablet, By Mouth, Daily, # 90 tablet, 1 Refills, [facility] 16[facility], 175, cm, 01/29/22 15:12:00 EDT,Height, 93, kg, 01/28/22 14:55:00 EDT, Dry Weight Start Date: 01/30/22 Status: Ordered SEROquel 100 mg oral tablet 100 mg, 1, tablet, By Mouth, 2 times a day, PRN, # 1 tablet, Refills 2, Tot. Refills 2, Maintenance, Anxiety, 09/21/19 10:41:00 EDT, Route to Pharmacy Electronically, [facility]/pharmacy #[id number], 172, cm, 09/05/19 16:17:00 EST, Height, [...] 3 Refills, Maintenance, 12/18/21 14:33:00 EDT, Suspension, [facility]/pharmacy #0843, 1 drops Eyes, Both 2 times a day, 175.2, cm, 12/18/21 14:10:00 EDT, Height, 88.3, kg, 03/12/21 9:16:00 EDT, Dry Weight Start Date: 12/18/21 Status: Ordered Tresiba FlexTouch 200 units/mL subcutaneous [...] # 30 capsule, 5 Refills, [facility], 175.2, cm, 11/15/21 11:18:00 EDT, Height, 88.3, kg, 03/12/21 9:16:00 EDT, Dry Weight Start Date: 11/17/21 Status: Ordered Problem List Condition Effective Dates Status Health Status Inform ant Bipolar disorder(Confirmed) Active Cervical spondylosis(Confirmed) Active Chronic back pain DJD(Confirmed) Active Glomerulonephritis,mesangial proliferative/fibrillary(Confirmed) 1, 2 Active Chronic renal failure, stage 4 (severe)(Confirmed) Active ASHD; [place] 2012/stent circumfl ex vessel cath;abdelrahman 2018(Confirmed) 3 [...] 524 weeks therapy with sofosbuvir/weight based ribavirin 17641 inferolateral stent bare metal circumflex 7DR Molddoverno [...] at age: 63; entered on: 07/20/20 Sex Care Team Personnel Name: Kelly Butler NP Address: [address] [place] [address]
--- OUTSIDE RECORDS SUMMARY | 2024-06-01 11:55 | XMS_ITS | Continuity of Care Document ---
Author Organization [facility] Nando Escobar Lazaro lt Address [address] [place] [address]- Care Team Providers Care Harness Cutter Name Role Phone Carrie HAIRSPRING INSPECTORKelly Primary Care Physician [facility] Date[facility]): 01/26/24 - 02/25/24 [facility] Adult [address] [place] [address]- Allergies, Adverse Reactions, Alerts Substance Reaction Severity Status Bee Stings Active Immunizations Given and Recorded Vaccine Date Status Refusal Reason SARS-CoV-2(COVID-19)mRNA-LNP vac([id number]) 12/31/23 Recorded SARS-CoV-2(COVID-19)mRNA-LNP vac(ezb287) 05/08/23 Recorded tetanus/diphtheria/pertussis, acel(Tdap) 10/15/23 Recorded tetanus/diphtheria/pertussis, [...] 02/03/23 Recorded zoster vaccine, inactivated 08/09/19 Recorded [id number] 12y+ bivalent booster vax 05/17/22 Recorded SARS-CoV-2 [...] adult vaccine 4 12/10/10 Given 1Result Comment: [id number] 2Result Comment: [id number] 3Admin Note: pt waited 10 mins post [...] 0 Refills, Maintenance, 02/02/24 15:25:00 EDT, [id number], with dose counter. any albuterol inhaler covered [...] 1 puffs... Start Date: 02/15/24 Status: Ordered aspirin 81 mg oral delayed [...] day prn cough (Max 600 mg in m34-pswv period), # 30 capsule, 0 Refills, Maintenance, [...] 0 Refills, Maintenance, 01/11/24 14:46:00 EDT, Tablet, [facility]/pharmacy #[id number], Partial fill upon patient request if the prescription is for a schedule II opioid drug., 168, cm, 01/11/24 14:42:00 EDT, Height,... Start Date: 01/11/24 Status: Ordered DilTIAZem (Eqv-Cardizem CD) 180 mg/24 hours oral capsule, extended release 1 capsule, By Mouth, Daily, # 90 capsule, 0 Refills, Maintenance, 02/12/24 11:53:00 EDT, [facility], 168, cm, 02/03/24 10:41:00 EDT, Height Start Date: 02/12/24 Status: Ordered Flonase Allergy Relief 50 mcg/inh [...] 02/17/24 7:23:00 EDT, Route to Pharmacy Electronically, [facility]/pharmacy #[id number], 168, cm, 02/15/24 13:43:00 EDT, [...] 01/21/19 11:25:36 EDT, Route to Pharmacy Electronically, [id number], [facility]/pharmacy #[id number] Start Date: 01/21/19 Stop Date: 05/21/19 Status: Ordered lamotrigine 100 mg oral tablet TAKE 1 TABLET BY MOUTH TWICE A DAY Start Date: 02/26/24 Status: Ordered lisinopril 40 mg oral tablet 1 tablet, By Mouth, Daily, # 90 tablet, 1 Refills, Maintenance, 01/26/24 9:20:00 EDT, [facility] STORE 80669, 168, cm, 01/11/24 14:42:00 EDT, Height, 93, kg, 01/28/22 14:55:00 EDT, Dry Weight Start Date: 01/26/24 Status: Ordered methylphenidate 5 mg oral tablet TAKE 1 TABLET BY MOUTH THREE TIMES A DAY Start Date: 01/11/24 Status: Ordered Metoprolol Tartrate 50 mg oral tablet 1.5 tablet, By Mouth, 2 times a day, # 270 tablet, 1 Refills, Maintenance, 09/16/23 14:32:00 EDT, [facility]/pharmacy #[id number], 168, cm, 07/23/23 15:05:00 EST, Height, 93, kg, 01/28/22 14:55:00 EDT, Dry Weight Start Date: 09/16/23 Status: Ordered nitroglycerin 0.4 mg sublingual tablet See Instructions, DISSOLVE 1 UNDER TONGUE EVERY 5 MINUTES NEEDED FOR CHEST PAIN CALL MD AFTER TAKING 3 TABS IN TOTAL IN A DAY, # 100 tablet, 0 Refills, Maintenance, 10/03/22 15:53:00 EDT, [facility]/pharmacy #[id number], 175, cm, 09/17/22 13:59:00 EDT, [...] mL, 0 Refills, Maintenance, 02/02/24 15:28:00 EDT, [place], [facility], Partial fill upon patient... Start Date: 02/02/24 Status: Ordered Pen [place], 31 G x 5 mm BD Ultra [...] Refills, Maintenance, 02/04/24 16:39:00 EDT, [facility], 168, cm, 02/03/24 10:41:00 EDT, Height Start [...] ml/min Confirmed Active ASHD; [place] 2012/stent circumflex 2012/vessel cath;abdelrahman 2018 3 Confirmed [...] 2012/stent 6 Confirmed Active Hyperlipidemia Confirmed Active Secondary [...] mild to moderate. 3MI 2012 circumflex stent 2012/ND 4secondary to hep C 524 weeks therapy with sofosbuvir/weight based ribavirin 43344 inferolateral stent bare metal circumflex 7DR Molddoverno [...] Team Personnel Name: Jeffrey Mccoy MD Position: [facility] Renal MD Member Role: Lifetime Consulting Physician Address: Address: [address] [place] [address] Dr [address] [facility] [place] [address]- Name: Kelly Butler NP Position: [facility] PCO Associate Professional Member Role: PCP Address: Address: [address] [place] [address]- Name: Kristin Mckenzie Position: [facility] Outreach Member Role: Lifetime Consulting Physician Name: Prieto Tobin RN Position: [facility] RN Member Role: Primary Care Nurse Name: Jonn Hui DO Position: [facility] Renal MD Member Role: Lifetime Consulting Physician Address: Address: [address] [place] [address] [address] [facility] [place] [address]- Name: Luis Angel Stephen RN Position: [facility] RN Member Role: Primary Care Nurse Care Team Related Persons Name: CARLOS A BORDEN Address: [address] [place] [address] Name: LEVI BORDEN Address: home [address] [place] [address]
--- OUTSIDE RECORDS SUMMARY | 2024-06-01 11:55 | XMS_ITS | Continuity of Care Document ---
Author Organization [facility] Address [address] [place] [address] Joana powers, [address] [place] [address]- Care Team Providers Care Frame Hand Name Role Phone Carrie DRAFTER ASSISTANT, Kelly Lopez Primary Care Physician [phone] [facility]counter [facility] Date(s): 08/14/23 - 11/14/23 [facility] [address] [place] [address] Drive [address] [place] [address]- Attending Physician: David Schwartz MD Referring Physician: Manohar Williamson MD Allergies, Adverse Reactions, Alerts Substance Reaction Severity Status Bee Stings Active Immunizations Given and Recorded Vaccine Date Status Refusal Reason tetanus/diphtheria/pertussis, acel(Tdap) 10/15/23 Recorded tetanus/diphtheria/pertussis, acel(Tdap) 07/28/11 Given SARS-CoV-2(COVID-19)mRNA-LNP vac(hdd203) 05/08/23 Recorded pneumococcal 20-valent conjugate vaccine 1 [...] 02/03/23 Recorded zoster vaccine, inactivated 08/09/19 Recorded [id number] 12y+ bivalent booster vax 05/17/22 Recorded SARS-CoV-2 [...] adult vaccine 4 12/10/10 Given 1Result Comment: [id number] 2Result Comment: [id number] 3Admin Note: pt waited 10 mins post inj no adverse reaction noted.thierno kong 4Admin Note: PT WAITED 10 MIN WITH NO ADVERSE REACTION. Medications aspirin 81 mg oral delayed release tablet 1 tablet, By Mouth, Daily, # 90 tablet, 1 Refills, Maintenance, 06/02/23 11:42:00 EST, [facility]/pharmacy#0843, 168, cm, 05/01/23 14:45:00 EDT, Height, 93, [...] capsule, 1 Refills, Maintenance, 06/30/23 7:20:00 EST, [facility], 168, cm, 05/01/23 14:45:00 EDT, Height, 93, kg, 01/28/22 14:55:00 EDT, Dry Weight Start Date: 06/30/23 Status: Ordered Daily Simone oral tablet 1 tablet, By Mouth, Daily, # 90 tablet, 1 Refills, Maintenance, 06/30/23 7:20:00 EST, [facility] STORE 55143, 90, TAKE 1 TABLET BY MOUTH EVERY [...] capsule, 0 Refills, Maintenance, 11/10/23 22:03:00 EDT, [facility] STORE 92256, 168, cm, 10/27/23 15:34:00 EDT, Height, 93, kg, 01/28/22 14:55:00 EDT, Dry Weight Start Date: 11/10/23 Status: Ordered folic acid 1 mg oral tablet 1, tablet, By Mouth, Daily, # 90 tablet, Refills 1, Tot. Refills 1, Maintenance, 07/03/23 10:01:00 EST, Route to Pharmacy Electronically, [facility]/pharmacy #[id number], 168, cm, 05/01/23 14:45:00 EDT, Height, [...] 01/21/19 11:25:36 EDT, Route to Pharmacy Electronically, [id number], [facility]/pharmacy #[id number] Start Date: 01/21/19 Stop Date: 05/21/19 Status: Ordered lamotrigine 100 mg oral tablet Refills 0, Maintenance, 05/01/23 15:28:00 EDT, Partial fill upon patient request if the prescription is for a schedule II opioid drug. Start Date: 05/01/23 Status: Ordered lisinopril 40 mg oral tablet 1 tablet, By Mouth, Daily, # 90 tablet, 1 Refills, Maintenance, 08/17/23 13:33:00 EST, [facility]/pharmacy#0843, 168, cm, 07/23/23 15:05:00 EST, Height, 93, kg, 01/28/22 14:55:00 EDT, Dry Weight Start Date: 08/17/23 Status: Ordered Metoprolol Tartrate 50 mg oral tablet 1.5 tablet, By Mouth, 2 times a day, # 270 tablet, 1 Refills, Maintenance, 09/16/23 14:32:00 EDT, [facility]/pharmacy #[id number], 168, cm, 07/23/23 15:05:00 EST, Height, [...] 15 Unknown, 2 Refills, 11/07/22 0:09:00 EDT, [id number], 175, cm, 10/09/22 16:51:00 EDT, Height, 93, kg, 01/28/22 14:55:00 EDT, Dry Weight Start Date: 11/07/22 Status: Ordered Pen [place], 31 G x 5 mm BD Ultra [...] Refills, Maintenance, 11/10/23 22:03:00 EDT, [facility], 168, cm, 10/27/23 15:34:00 EDT, Height, 93, [...] 4, GFR 15-29 ml/min Confirmed Active ASHD; [place] 2012/stent circumflex vessel cath;abdelrahman 2018 3 Confirmed [...] mild to moderate. 3MI 2012 circumflex stent 2013/MD 4secondary to hep C 524 weeks therapy with sofosbuvir/weight based ribavirin 71784 inferolateral stent bare metal circumflex 7DR Molddoverno [...] Member Role: Lifetime Consulting Physician Address: Address: [address] [place] [address] [address] [facility] [place] [address]- Name: Kelly Butler NP Position: [facility] PCO Associate Professional Member Role: PCP Address: Address: [address] [place] [address]- Name: Kristin Mckenzie Position: [facility] Outreach Member Role: Lifetime Consulting Physician Name: Prieto Tobin RN Position: S RN Member Role: Primary Care Nurse Name: Jonn Hui DO Position: [facility] Renal MD Member Role: Lifetime Consulting Physician Address: Address: [address] [place], [place] [address]E [facility] [place], [place] [address] Name: Luis Angel Stephen RN Position: [facility] RN Member Role: Primary Care Nurse Care Team Related Persons Name: CARLOS A BORDEN Address: [address] [place] [address] Name: LEVI BORDEN Address: [address] [place] [address]
--- OUTSIDE RECORDS SUMMARY | 2024-06-01 11:55 | XMS_ITS | Continuity of Care Document ---
Author Organization [facility] Shawn Lazaro lt Address [address] [place] [address]- Care Team Providers Care Cable Swager Name Role Phone Aylin HICKMAN, Ben Willis Primary Care Physician [facility] 06[facility]19 - 07/16/19 [facility] Adult [address] [place] [address]- [facility] Attending Physician: Tino HICKMAN, Manohar Grimaldo Allergies, Adverse Reactions, Alerts Substance Reaction Severity Status Bee Stings Active Immunizations Given and Recorded Vaccine Date Status Refusal Reason influenza virus vaccine, inactivated 03/23/19 Give n influenza virus vaccine, inactivated 06/03/18 Give n influenza virus vaccine, inactivated 04/12/17 Andrew rded influenza virus vaccine, inactivated 04/16/16 Give n influenza virus vaccine, inactivated 04/16/10 Give n tetanus/diphtheria/pertussis, acel(Tdap) 07/28/11 Given hepatitis B adult vaccine 1 01/07/11 Given hepatitis B adult vaccine 2 12/10/10 Given pneumococcal 23-valent vaccine 04/16/10 Given 1Admin Note: pt waited 10 mins post inj no adverse reaction noted.j a 2Admin Note: PT WAITED 10 MIN WITH NO ADVERSE REACTION. Medications albuterol CFC free 90 mcg/inh inhalation aerosol 2, puffs, Inhalation, Every 6 hours, PRN, # 9 Gm, Refills 0, Tot. Refills 0, Maintenance, 06/17/19 10:48:07 EST, Aerosol, Route to Pharmacy Electronically, [id number], [id number], 180, cm, 06/17/19 10:36:11 EST, Height Start Date: 06/17/19 Status: Ordered aspirin 81 mg oral tablet 1 tablet = 81 mg, By Mouth, Daily, # 30 tablet, 11 Refills, Maintenance, 09/08/18 14:22:51 EST, Tablet Start Date: 09/08/18 Stop Date: 09/03/19 Status: Ordered Ativan 1 mg oral tablet 1 tablet = 1 mg, By Mouth, 4 times a day, 0 Refills, Maintenance, 12/27/15 13:11:38 EDT Start Date: 12/27/15 Status: Ordered Cartia XT 180 mg/24 hours oral capsule, extended release 1 capsule = 180 mg, By Mouth, Daily, # 30 capsule, 5 Refills, Maintenance, 03/04/19 15:37:05 EDT, CR Capsule Start Date: 03/04/19 Status: Ordered cholecalciferol 2000 intl units oral capsule 1 capsule = 2,000 International_Units, By Mouth, Daily, # 30 capsule, 5 Refills, Maintenance, 04/25/19 13:50:51 EDT, Capsule Start Date: 04/25/19 Status: Ordered cloNIDine 0.2 mg oral tablet 0.2 mg, 1, tablet, By Mouth, 2 times a day, # 60 tablet, Refills 5, Tot. Refills 5, Maintenance, 05/09/19 9:31:26 EST, Route to Pharmacy Electronically, [id number], [facility]/pharmacy #[id number] Start Date: 05/09/19 Status: Ordered Colace sodium 100 mg oral capsule 100 mg, 1, capsule, By Mouth, 2 times a day, PRN, # 60 capsule, Refills 5, Tot. Refills 5, Maintenance, for constipation, 04/25/19 13:50:52 EDT, Route to Pharmacy Electronically, [id number], [facility]/pharmacy #[id number] Start Date: 04/25/19 Status: Ordered Crestor [...] 02/14/19 16:39:14 EDT, Route to Pharmacy Electronically, [id number], [facility]/pharmacy #[id number] Start Date: 02/14/19 Status: Ordered Freestyle Lite Test Strips See Instructions, # 150 each, Refills 5, Tot. Refills 5, Maintenance, pt to test 3 times a day DX: DM E11.9, 05/30/19 11:16:04 EST, NEEDS TO TEST 3 TIMES A DAY FOR INSULIN, Compound Start Date: 05/30/19 Status: Ordered Marian-kermit 8.6 mg oral tablet 2 tablet = 17.2 mg, By Mouth, Daily at bedtime, # 60 tablet, 5 Refills, Maintenance, 08/10/18 13:56:23 EST Start Date: 08/10/18 Status: Ordered LaMICtal 100 mg oral tablet 100 mg, 1, tablet, By Mouth, 2 times a day, # 60 tablet, Refills 3, Tot. Refills 3, Maintenance, 01/21/19 11:25:36 EDT, Route to Pharmacy Electronically, [id number], [facility]/pharmacy #[id number] Start Date: 01/21/19 Stop Date: 05/21/19 [...] 06/21/19 14:10:15 EST, Route to Pharmacy Electronically, [facility]/pharmacy #[id number], 180, cm, 06/17/19 10:36:11 EST, Height Start Date: 06/21/19 Status: Ordered metoprolol 50 mg oral tablet 75 mg, 1.5, tablet, By Mouth, 2 times a day, stop metoprolol 50 mg twice daily, # 180 tablet, Refills 2, Tot. Refills 2, Maintenance, 02/28/19 16:02:16 EDT, Route to Pharmacy Electronically, [id number], [facility]/pharmacy #[id number] Start Date: 02/28/19 Status: Ordered nicotine 2 mg oral transmucosal lozenge 1 lozenge = 2 mg, By Mouth, Every 2 hours, SUCK UP TO Q1 HOURS 10 DAILY, # 144 lozenge, 2 Refills, Maintenance, 07/15/19 12:34:00 EST, [facility]/pharmacy #0843, 1 lozenge By Mouth Every 2 [...] PAIN CALL 911 IF PAIN NOT RELIEVED, [facility]/pharmacy #[id number] Start Date: 02/17/19 Status: Ordered NovoLOG FlexPen 100 units/mL subcutaneous solution See Instructions, # 15 Unknown, Refills 5 Tot. Refills 5, INJECT 0-18 UNITS SUBCUTANEOUSLY WITH MEALS FOR SLIDING SCALES, [facility]/pharmacy #[id number] Start Date: 01/04/19 Status: Ordered Pen [place], 31 G x 5 mm BD Ultra Fine III See Instructions, # 150 each, Refills 0, Tot. Refills 0, Maintenance, Test blood sugar 5 times daily, 06/14/19 11:23:23 EST, DM E11.9, Compound, 180, cm, 05/12/19 12:43:34 EST, Height Start Date: 06/14/19 Status: Ordered predniSONE 20 mg oral tablet [...] 01/21/19 11:26:23 EDT, Route to Pharmacy Electronically, [id number], [facility]/pharmacy #[id number] Start Date: 01/21/19 Status: Ordered SEROquel [...] EST, Tablet, this was previously sent to [facility] Start Date: 05/17/19 Stop Date: 05/11/20 Status: Ordered Tresiba FlexTouch 200 units/mL subcutaneous solution = 80 units, Subcutaneous Infusion, Daily, at bedtime, # 15 mL, 5 Refills, Maintenance, 12/06/18 10:29:51 EDT Start Date: 12/06/18 Status: Ordered Problem List Condition Effective Dates Status Health Status Inform ant Acute pancreatitis(Confirmed) 07/16/16 Active Adenomatous colon polyp(Confirmed) Active Bipolar disorder(Confirmed) Active Cervical spondylosis(Confirmed) Active Chronic back pain opiates pe r physiatry(Confirmed) Active Glomerulonephritis,mesangial proliferative/fibrillary(Confirmed) 1, 2 Active Chronic renal impairment, st age 3 (moderate)(Confirmed) Active SASHDMI 2012/stent circumfle x vessel cath;abdelrahman 2018(Confirmed) 3 Active Epididymal cyst rt(Confirmed) 04/18/19 Active Low serum vitamin D(Confirmed) Active Insulin long-term use(Confirmed) Active Ex-smoker quit 2018/c t enrolled(Confirmed) Active Fibrillary glomerulonephritis(Confirmed) 4 Active GERD with esophagitis egd 2018(Confirmed) Active Gingivitis(Confirmed) Active History of alcoholism(Confirmed) Active History of nephrotic syndrome(Confirmed) Active Hepatitis C rx 2015(Confirmed) 5 Active Encounter for long-term (cur rent) drug use lamictal(Confirmed) Active Use of opiates for therapeut ic purposes;physiatry,lock box(Confirmed) Active History of acute myocardial infarction of inferior wall 2013/stent(Confirmed) 6 Active Hyperlipidemia(Confirmed) Active Hypertension(Confirmed) Active LVH (left ventricular hypert rophy) echo(Confirmed) 12/04/16 Active Low back pain(Confirmed) Active Lumbar spondylosis(Confirmed) 7 Active Obesity(Confirmed) Active Lower extremity pain(Confirmed) Active Tubular adenoma of colon(Confirmed) 8 12/12/15 Active DM (diabetes mellitus), type 2(Confirmed) Active 1Renal biopsy-proven lithium-induced chronic kidney disease [...] 524 weeks therapy with sofosbuvir/weight based ribavirin 24145 inferolateral stent bare metal circumflex 7DR Marissa sx;Dr Schwartz 8repeat colonoscopy in 5 years Social History Social History Type Response Smoking Status Former smoker, quit more than 30 days ago entered on: 12/22/18 Sex
--- OUTSIDE RECORDS SUMMARY | 2024-06-01 11:55 | XMS_ITS | Continuity of Care Document ---
Author Organization [facility] Shawn Lazaro lt Address [address] [place] [address]- Care Team Providers Care Bander Operator Name Role Phone Aylin HICKMAN, Ben Willis Primary Care Physician [phone] Encounter [facility] Date(s): 11/22/21 - 12/22/21 [facility] Nando Palominoley Adult [address] [place] [address]- Allergies, Adverse Reactions, Alerts Substance Reaction Severity [...] 11:08:00 EDT, 01/23/21 11:08:00 EDT, CR Capsule, [id number], 175.3, cm, 01/21/21 12:58:00 EDT, Height, [...] 06/24/21 12:51:00 EST, Route to Pharmacy Electronically, [facility]/pharmacy #[id number], 175.2, cm, 06/07/21 9:51:00 EST, Height, 88.3, kg, 03/12/21 9:16:00 EDT, Dry... Start Date: 06/24/21 Status: Ordered Daily Simone oral tablet 1 tablet, By Mouth, Daily, # 30 tablet, 5 Refills, Maintenance, 07/29/21 13:53:00 EST, Tablet, [facility]/pharmacy #[id number], 1 tablet By Mouth Daily,x30 days, 175.2, cm, 06/07/21 9:51:00 EST, Height, 88.3, kg,03/12/21 9:16:00 EDT, Dry Weight Start Date: 07/29/21 Stop Date: 01/25/22 Status: Ordered docusate sodium 100 mg oral capsule 1 capsule, By Mouth, 2 times a day, PRN NEEDED FOR CONSTIPATION, # 60 capsule, 5 Refills, Maintenance, 06/05/21 15:57:00 EST, [facility]/pharmacy #[id number], 175.2, cm, 05/27/21 11:26:00 EST, Height, 88.3, kg, 03/12/21 9:16:00 EDT, Dry Weight Start Date: 06/05/21 Status: Ordered folic acid 1 mg oral tablet 1, tablet, By Mouth, Daily, # 30 tablet, Refills 5, Tot. Refills 5, Maintenance, 07/25/21 15:59:00 EST, Route to Pharmacy Electronically, [facility]/pharmacy #[id number], 175.2, cm, 06/07/21 9:51:00 EST, Height, [...] tablet, 5 Refills, Maintenance, 06/05/21 15:57:00 EST, [facility]/pharmacy #[id number], 175.2, cm, 05/27/21 11:26:00 EST, Height, 88.3, kg, 03/12/21 9:16:00 EDT, Dry Weight Start Date: 06/05/21 Status: Ordered LaMICtal 100 mg oral tablet 100 mg, 1, tablet, By Mouth, 2 times a day, # 60 tablet, Refills 3, Tot. Refills 3, Maintenance, 01/21/19 11:25:36 EDT, Route to Pharmacy Electronically, [id number], [facility]/pharmacy #[id number] Start Date: 01/21/19 Stop Date: 05/21/19 Status: Ordered lisinopril 40 mg oral tablet 1 tablet = 40 mg, By Mouth, Daily, # 30 tablet, 3 Refills, Maintenance, 09/17/21 10:50:00 EDT, Tablet, [facility]/pharmacy #[id number], Partial fill upon patient request if the prescription is for a schedule II opioid drug., 175.2, cm, 07/31/21 11:20:00 ESTReji... Start Date: 09/17/21 Status: Ordered Metoprolol Tartrate 50 mg oral tablet 1.5 tablet, By Mouth, 2 times a day, # 270 tablet, 0 Refills, [facility], 175.2, cm, 11/15/21 11:18:00 EDT, Height, 88.3, kg, 03/12/21 9:16:00 EDT, Dry Weight Start Date: 12/12/21 Status: Ordered nicotine 2 mg oral transmucosal lozenge See Instructions, USE 1 LOZENGE UP TO EVERY 1 HOUR NEEDED FOR 10 DAYS, # 162 lozenge, 0 Refills,Maintenance, 12/11/21 9:38:00 EDT, [id number], 16, USE 1 LOZENGE UP TO EVERY 1 HOUR NEEDED FOR 10 DAYS, 175.2, cm, 11/15/21 11:18:00 EDT, He... Start Date: 12/11/21 Status: Ordered nitroglycerin 0.4 mg sublingual tablet [...] # 15 Unknown, 2 Refills, [facility], 175.2, cm, 05/27/21 11:26:00 EST, Height, 88.3, kg, 03/12/21 9:16:00 EDT, Dry Weight Start Date: 06/04/21 Status: Ordered Pen [place], 31 G x 5 mm BD Ultra [...] capsule, 5 Refills, Maintenance, 11/19/21 11:25:00EDT, Capsule, [id number], 175.2, cm, 11/15/21 11:18:00 EDT, Height, 88.3, kg, 03/12/21 9:16:00 EDT, Dry Weight Start Date: 11/19/21 Status: Ordered pregabalin 75 mg oral capsule 1 capsule = 75 mg, By Mouth, Daily, # 30 capsule, 5 Refills, Maintenance, 06/10/21 12:32:00 EST, Capsule, [facility]/pharmacy #[id number], 175.2, cm, 06/07/21 9:51:00 EST, Height, 88.3, kg, 03/12/21 9:16:00 EDT, Dry Weight Start Date: 06/10/21 Status: Ordered rosuvastatin 20 mg oral tablet 1 tablet, By Mouth, Daily, # 90 tablet, 1 Refills, Maintenance, 08/15/21 14:24:00 EST, [facility]/pharmacy[facility]0843, 175.2, cm, 07/31/21 11:20:00 EST, Height, 88.3, kg, 03/12/21 9:16:00 EDT, Dry Weight Start Date: 08/15/21 Status: Ordered SEROquel 100 mg oral tablet 100 mg, 1, tablet, By Mouth, 2 times a day, # 60 tablet, Refills 2, Tot. Refills 2, Maintenance, 09/21/19 10:41:00 EDT, Route to Pharmacy Electronically, [facility]/pharmacy #[id number], 172, cm, 09/05/19 16:17:00 EST, [...] 3 Refills, Maintenance, 12/18/21 14:33:00 EDT, Suspension, [facility]/pharmacy #[id number], 1 drops Eyes, Both 2 [...] # 9 Unknown, 1 Refills, [facility], 175.2, cm, 07/31/21 11:20:00 EST, Height, 88.3, [...] # 30 capsule, 5 Refills, [facility], 175.2, cm, 11/15/21 11:18:00 EDT, Height, 88.3, kg, 03/12/21 9:16:00 EDT, Dry Weight Start Date: 11/17/21 Status: Ordered Problem List Condition Effective Dates Status Health Status Inform ant Bipolar disorder(Confirmed) Active Cervical spondylosis(Confirmed) Active Chronic back pain DJD(Confirmed) Active Glomerulonephritis,mesangial proliferative/fibrillary(Confirmed) 1, 2 Active Chronic renal failure, stage 4 (severe)(Confirmed) Active ASHD; [place] 2012/stent circumfl ex vessel cath;abdelrahman 2018(Confirmed) 3 [...] mild to moderate. 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 2013/[place] 4secondary to hep C 524 weeks therapy with sofosbuvir/weight based ribavirin 98652 inferolateral stent bare metal circumflex 7DR Marissa [...]
--- OUTSIDE RECORDS SUMMARY | 2024-06-01 11:55 | XMS_ITS | Continuity of Care Document ---
Author Organization [facility] Nando Escobar Lazaro lt Address [address] [place] [address]- Care Team Providers Care Steel Rule Inspector Name Role Phone Carrie Kelly RIVERA Primary Care Physician [facility]counter [facility] Date(s): 11/27/22 - 12/27/22 [facility] Nando Escobar Adult [address] [place] [address]- Allergies, Adverse Reactions, Alerts Substance Reaction Severity [...] influenza virus vaccine, inactivated 04/16/10 Give n [id number] 12y+ bivalent booster vax 05/17/22 Recorded SARS-CoV-2 [...] 5 Refills, Maintenance, 08/15/22 10:27:00 EST, Tablet, [facility]/pharmacy #[id number], 1 tablet By Mouth Daily,x30 days, [...] capsule, 5 Refills, Maintenance, 07/18/22 11:59:00 EST, [facility]/pharmacy #0843, 175, cm, 07/17/22 10:33:00 EST, Height, 93, kg, 01/28/22 14:55:00 EDT, Dry Weight Start Date: 07/18/22 Status: Ordered Flonase 50 mcg/inh nasal spray 1 sprays, Nares, Both, 2 times a day, # 16 Gm, 0 Refills, Maintenance, 09/05/22 9:15:00 EST, [place],[facility]/pharmacy #0843, Partial fill upon patient request if the prescription is for a schedule II opioid drug., 1 sprays Nares, Both 2 times a day, 175, c... Start Date: 09/05/22 Status: Ordered folic acid 1 mg oral tablet 1, tablet, By Mouth, Daily, # 30 tablet, Refills 5, Tot. Refills 5, Maintenance, 08/15/22 10:27:00 EST, Route to Pharmacy Electronically, [facility]/pharmacy #[id number], 175, cm, 07/17/22 10:33:00 EST, Height, [...] 01/21/19 11:25:36 EDT, Route to Pharmacy Electronically, [id number], [facility]/pharmacy #[id number] Start Date: 01/21/19 Stop Date: 05/21/19 Status: Ordered lisinopril 40 mg oral tablet 1 tablet, By Mouth, Daily, # 90 tablet, 0 Refills, Maintenance, 10/24/22 10:11:00 EDT, [facility]/pharmacy#0843, 175, cm, 10/09/22 16:51:00 EDT, Height, 93, kg, 01/28/22 14:55:00 EDT, Dry Weight Start Date: 10/24/22 Status: Ordered Metoprolol Tartrate 50 mg oral tablet 1.5 tablet, By Mouth, 2 times a day, # 270 tablet, 1 Refills, Maintenance, 09/01/22 13:28:00 EST, [facility] STORE 86[facility], 175, cm, 07/17/22 10:33:00 EST, Height, 93, kg, 01/28/22 14:55:00 EDT, Dry Weight Start Date: 09/01/22 Status: Ordered Nicotine 7 mg/24 hour patch 1 patch, Topically, Daily, # 30 patch, 0 Refills, Maintenance, 11/17/22 11:45:00 EDT, Patch, [facility]/pharmacy #0843, Partial fill upon patient request if [...] tablet, 0 Refills, Maintenance, 10/03/22 15:53:00 EDT, [facility]/pharmacy #0843, 175, cm, 09/17/22 13:59:00 EDT, Height,... Start Date: 10/03/22 Status: Ordered NovoLOG FlexPen 100 units/mL injectable solution See Instructions, INJECT 0-18 UNITS SUBCUTANEOUSLY WITH MEALS FOR SLIDING SCALES, # 15 Unknown, 2 Refills, 11/07/22 0:09:00 EDT, [facility]/pharmacy #[id number], 175, cm, 10/09/22 16:51:00 EDT, Height, 93, kg, 01/28/22 14:55:00 EDT, Dry Weight Start Date: 11/07/22 Status: Ordered Pen [place], 31 G x 5 mm BD Ultra [...] capsule, 2 Refills, Maintenance, 08/07/22 12:55:00EST, Capsule, [facility]/pharmacy #0843, 175, cm, 07/17/22 10:33:00 EST, Height, 93, kg, 01/28/22 14:55:00EDT, Dry Weight Start Date: 08/07/22 Status: Ordered rosuvastatin 20 mg oral tablet 1 tablet, By Mouth, Daily, # 90 tablet, 1 Refills, Maintenance, 05/21/22 13:33:00 EST, [facility], 175, cm, 05/09/22 11:08:00 EDT, Height, 93, kg, 01/28/22 14:55:00 EDT, Dry Weight Start Date: 05/21/22 Status: Ordered Senna 8.6 mg oral tablet 1 or 2 tablets, By Mouth, Daily at bedtime, PRN, # 60 tablet, Refills 5, Tot. Refills 5, Maintenance, Constipation, 11/03/22 15:04:00 EDT, Route to Pharmacy Electronically, [facility]/pharmacy #0843 Tablet,Partial fill upon patient request if the prescripti... Start Date: 11/03/22 Status: Ordered SEROquel 100 mg oral tablet 100 mg, 1, tablet, By Mouth, 2 times a day, PRN, # 1 tablet, Refills 2, Tot. Refills 2, Maintenance, Anxiety, 09/21/19 10:41:00 EDT, Route to Pharmacy Electronically, [facility]/pharmacy #[id number], 172, cm, 09/05/19 16:17:00 EST, Height, [...] 9 Unknown, 1 Refills, 01/21/22 15:39:00 EDT, [facility]/pharmacy #0843, 175.2, cm, 12/18/21 14:10:00 EDT, Height... Start Date: 01/21/22 Status: Ordered Trulicity Pen 0.75 mg/0.5 mL subcutaneous solution 0.5 mL = 0.75 mg, Subcutaneous Injection, Every week, # 2.5 mL, 2 Refills, Maintenance, 04/08/22 9:12:00 EDT, Solution, [facility]/pharmacy #0843, Partial fill upon patient request if [...] ml/min Confirmed Active ASHD; [place] 2012/stent circumflex vessel cath;abdelrahman 2018 3 Confirmed [...] mild to moderate. 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 2013/[place] 4secondary to hep C 524 weeks therapy with sofosbuvir/weight based ribavirin 08375 inferolateral stent bare metal circumflex 7DR Molddoverno [...] Personnel Name: Darius HICKMAN, Jeffrey Lopez Position: [facility] Renal MD Member Role: Lifetime Consulting Physician Address: Address: [address] [place] [address] [facility] [place] [address]- Name: Kelly Butler NP Position: [facility] PCO Associate Professional Member Role: PCP Address: Address: [address] [place] [id number]- Name: Kristin Mckenzie Position: [facility] Outreach Member Role: Lifetime Consulting Physician Name: Prieto Tobin RN Position: [facility] RN Member Role: Primary Care Nurse Name: Jonn Hui DO Position: [facility] Renal MD Member Role: Lifetime Consulting Physician Address: Address: [address] [place], [place] [address] [place] [place] [address]- Name: Zafar CALVO, Luis Angel Rojas Position: [facility] RN Member Role: Primary Care Nurse Care Team Related Persons Name: CARLOS A BORDEN Address: home [address] [place] [address] Name: LEVI BORDEN Address: home [address] [place] [address]
--- OUTSIDE RECORDS SUMMARY | 2024-06-01 11:55 | XMS_ITS | Continuity of Care Document ---
Author Organization [facility] Address [address] [place] [address]- Care Team Providers Care Erp Developer Name Role Phone Aylin HICKMAN, Ben Willis Primary Care Physician Encounter [facility] Date(s): 06/28/19 - 10/26/19 [facility] [address] [place] [address]- [facility] Attending Physician: Jeffrey Leon MD Admitting Physician: Jeffrey Leon MD Allergies, Adverse Reactions, [...] 10:48:07 EST, Aerosol, Route to Pharmacy Electronically, [id number], [facility]/pharmacy #[id number], 180, cm, 06/17/19 10:36:11 EST, Height Start Date: 06/17/19 Status: Ordered aspirin 81 mg oral tablet 1 tablet = 81 mg, By Mouth, Daily, # 30 tablet, 11 Refills, Maintenance, 09/03/19 14:22:00 EST, Tablet, [facility]/pharmacy #[id number], 180, cm, 08/01/19 10:43:00 EST, [...] Refills, Maintenance, 08/16/19 14:00:00 EST, CR Capsule, [facility]/pharmacy #[id number], 172, cm, 08/11/19 13:32:00 EST, [...] 10/25/19 10:20:00 EDT, Route to Pharmacy Electronically, [facility]/pharmacy #[id number], 172, cm, 09/05/19 16:17:00 EST, Height, 97.8, kg, 08/11/19 5:24:00 EST, Dry W... Start Date: 10/25/19 Status: Ordered Colace sodium 100 mg oral capsule 100 mg, 1, capsule, By Mouth, 2 times a day, PRN, # 60 capsule, Refills 5, Tot. Refills 5, Maintenance, for constipation, 04/25/19 13:50:52 EDT, Route to Pharmacy Electronically, [id number], [facility]/pharmacy #[id number] Start Date: 04/25/19 Status: Ordered Crestor 20 mg oral tablet 1 tablet = 20 mg, By Mouth, Daily, # 90 tablet, 3 Refills, Maintenance, 10/25/19 11:14:00 EDT, Tablet, [facility]/pharmacy #[id number], 172, cm, 09/05/19 16:17:00 EST, Height, 97.8, kg, 08/11/19 5:24:00 EST, Dry Weight Start Date: 10/25/19 Status: Ordered Daily Simone oral tablet 1 tablet, By Mouth, Daily, # 30 tablet, 5 Refills, Maintenance, 09/21/19 10:41:00 EDT, Tablet, [facility]/pharmacy #[id number], 1 tablet By Mouth Daily,x30 days, 172, cm, 09/05/19 16:17:00 EST, Height, 97.8, kg, 08/11/19 5:24:00 EST, Dry Weight Start Date: 09/21/19 Stop Date: 03/19/20 Status: Ordered folic acid 1 mg oral tablet 1 mg, 1, tablet, By Mouth, Daily, # 30 tablet, Refills 11, Tot. Refills 11, Maintenance, 02/14/19 16:39:14 EDT, Route to Pharmacy Electronically, [id number], [facility]/pharmacy #[id number] Start Date: 02/14/19 Status: Ordered [...] 01/21/19 11:25:36 EDT, Route to Pharmacy Electronically, [id number], [facility]/pharmacy #[id number] Start Date: [...] 06/21/19 14:10:15 EST, Route to Pharmacy Electronically, [facility]/pharmacy #[id number], 180, cm, 06/17/19 10:36:11 EST, Height Start Date: 06/21/19 Status: Ordered metoprolol 50 mg oral tablet 75 mg, 1.5, tablet, By Mouth, 2 times a day, stop metoprolol 50 mg twice daily, # 180 tablet, Refills 2, Tot. Refills 2, Maintenance, 08/26/19 9:30:00 EST, Route to Pharmacy Electronically, [facility]/pharmacy #[id number], 172, cm, 08/23/19 10:02:00 EST, Height, 9... Start Date: 08/26/19 Status: Ordered nicotine 4 mg oral transmucosal lozenge 1 lozenge = 4 mg, By Mouth, Every hour, # 132 lozenge, 1 Refills, Maintenance, 10/05/19 11:01:00 EDT, [facility]/pharmacy #[id number], 1 lozenge [...] #0843 Start Date: 01/04/19 Status: Ordered Pen [place], 31 G x 5 mm BD Ultra [...] EST, Tablet, this was previously sent to [facility] Start Date: 05/17/19 Stop Date: 05/11/20 Status: Ordered Tresiba FlexTouch 200 units/mL subcutaneous solution = 90 units, Subcutaneous Infusion, Daily, at bedtime, # 15 mL, 5 Refills, Maintenance, 08/04/19 13:13:00 EST, [facility]/pharmacy #[id number], 180, cm, 08/01/19 10:43:00 EST, Height Start Date: 08/04/19 Status: Ordered Problem List Condition Effective Dates Status Health Status Inform ant Acute pancreatitis(Confirmed) 07/16/16 Active Adenomatous colon polyp(Confirmed) Active Bipolar disorder(Confirmed) Active Cervical spondylosis(Confirmed) Active Chronic back pain opiates pe r physiatry(Confirmed) Active Glomerulonephritis,mesangial proliferative/fibrillary(Confirmed) 1, 2 Active Chronic renal impairment, st age 3 (moderate)(Confirmed) Active ASHD; [place] 2012/stent circumfl ex vessel [...] mild to moderate. 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
--- OUTSIDE RECORDS SUMMARY | 2024-06-01 11:56 | XMS_ITS | Continuity of Care Document ---
Author Organization [facility] Shawn Lazaro lt Address [address] [place] [address]- Care Team Providers Care Leather Scraper Name Role Phone Ben Viera MD Primary Care Physician [phone] Encounter [facility] Date(s): 06/17/19 - 06/24/19 [facility] Adult [address] [place] [address]- [place] Encounter Diagnosis Bronchitis with bronchospasm(Discharge Diagnosis) - 06/17/19 Sinusitis(Discharge Diagnosis) - 06/17/19 Attending Physician: Ben Viera MD Allergies, Adverse [...] 10:48:07 EST, Aerosol, Route to Pharmacy Electronically, [id number], [id number], 180, cm, 06/17/19 10:36:11 EST, [...] 05/09/19 9:31:26 EST, Route to Pharmacy Electronically, [id number], [facility]/pharmacy #[id number] Start Date: 05/09/19 Status: Ordered Colace sodium 100 mg oral capsule 100 mg, 1, capsule, By Mouth, 2 times a day, PRN, # 60 capsule, Refills 5, Tot. Refills 5, Maintenance, for constipation, 04/25/19 13:50:52 EDT, Route to Pharmacy Electronically, [id number], [facility]/pharmacy #[id number] Start Date: [...] 02/14/19 16:39:14 EDT, Route to Pharmacy Electronically, [id number], [facility]/pharmacy #[id number] Start Date: [...] 01/21/19 11:25:36 EDT, Route to Pharmacy Electronically, [id number], [facility]/pharmacy #[id number] Start Date: [...] 02/28/19 16:02:16 EDT, Route to Pharmacy Electronically, [id number], [facility]/pharmacy #[id number] Start Date: 02/28/19 Status: Ordered nicotine 21 mg/24 hr transdermal [...] PAIN CALL 911 IF PAIN NOT RELIEVED, [facility]/pharmacy #[id number] Start Date: 02/17/19 Status: Ordered NovoLOG FlexPen 100 units/mL subcutaneous solution See Instructions, # 15 Unknown, Refills 5 Tot. Refills 5, INJECT 0-18 UNITS SUBCUTANEOUSLY WITH MEALS FOR SLIDING SCALES, [facility]/pharmacy #[id number] Start Date: 01/04/19 Status: Ordered Pen [place], 31 G x 5 mm BD Ultra [...] 01/21/19 11:26:23 EDT, Route to Pharmacy Electronically, [id number], [facility]/pharmacy #[id number] Start Date: 01/21/19 Status: Ordered SEROquel [...] EST, Tablet, this was previously sent to [facility] pharmacy Start Date: 05/17/19 Stop Date: [...] Active Insulin long-term use(Confirmed) Active Ex-smoker quit 2018/[facility] t enrolled(Confirmed) Active Fibrillary glomerulonephritis(Confirmed) 4 Active [...] Tubular adenoma of colon(Confirmed) 8 12/12/15 Active 1Renal biopsy-proven lithium-induced chronic kidney disease [...] mild to moderate. 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 4secondary to hep C 524 weeks therapy with sofosbuvir/weight based ribavirin 29104 inferolateral stent bare metal circumflex 7DR Molddoverno sx;Dr Schwartz 8repeat colonoscopy in 5 years Diagnosis Diagnosis Type Effective Dates Health Status Clinical Service Informant Bronchitis with bronchospasm Discharge Diagnosis 06/17/19 Sinusitis Discharge Diagnosis 06/17/19 Vital Signs Most recent to oldest [Reference Range]: 1 Height 180 cm (06/17/19 10:36 AM) Weight 99.9 kg (06/17/19 10:36 AM) Oxygen Saturation [94-100 %] 98 % (06/17/19 10:36 AM) Pulse Rate [55-90 bpm] 72 bpm (06/17/19 10:36 AM) Body Mass Index [18.5-24.99] 30.83 *>HHI* (06/17/19 10:36 AM) Blood Pressure [90-138/55-84 mm Hg] 132/ 50mm Hg (06/17/19 10:36 AM) Temperature [96.8-100.4 DegF] 98.1 DegF (06/17/19 10:36 AM) Blood pressure sites Arm, left (06/17/19 10:36 AM) Temperature Route Oral (06/17/19 10:36 AM) Social History Social History Type Response Smoking Status Former smoker, quit more than 30 days ago entered on: 12/22/18 Sex
--- OUTSIDE RECORDS SUMMARY | 2024-06-01 11:56 | XMS_ITS | Continuity of Care Document ---
Author Organization [facility] Nando Escobar Lazaro lt Address [address] [place] [address]- Care Team Providers Care Soft Iron Inspector Name Role Phone Carrie ASTRO TECHNICIANKelly Primary Care Physician [facility]counter [facility] Date(s): 08/18/22 - 09/17/22 [facility] Nando Escobar Adult [address] [place] [address]- Allergies, Adverse Reactions, Alerts Substance Reaction Severity [...] influenza virus vaccine, inactivated 04/16/10 Give n [id number] 12y+ bivalent booster vax 05/17/22 Recorded SARS-CoV-2 [...] Refills, Maintenance, 05/21/22 13:33:00 EST, [id number], 175, cm, 05/09/22 11:08:00 EDT, Height, 93, [...] Gm, 0 Refills, Maintenance, 09/05/22 9:15:00 EST, [id number], Partial fill upon patient request if the prescription is for a schedule II opioid drug., 1 sprays Nares, Both 2 times a day, 175, c... Start Date: 09/05/22 Status: Ordered folic acid 1 mg oral tablet 1, tablet, By Mouth, Daily, # 30 tablet, Refills 5, Tot. Refills 5, Maintenance, 08/15/22 10:27:00 EST, Route to Pharmacy Electronically, [facility]/pharmacy #[id number], 175, cm, 07/17/22 10:33:00 [...] 01/21/19 11:25:36 EDT, Route to Pharmacy Electronically, [id number], [facility]/pharmacy #[id number] Start Date: 01/21/19 Stop Date: 05/21/19 Status: Ordered lisinopril 40 mg oral tablet 1 tablet, By Mouth, Daily, # 90 tablet, 1 Refills, Maintenance, 05/07/22 14:29:00 EDT, [facility], 175, cm, 04/08/22 8:34:00 EDT, Height, 93, kg, 01/28/22 14:55:00 EDT, Dry Weight Start Date: 05/07/22 Status: Ordered Metoprolol Tartrate 50 mg oral tablet 1.5 tablet, By Mouth, 2 times a day, # 270 tablet, 1 Refills, Maintenance, 09/01/22 13:28:00 EST, [facility], 175, cm, 07/17/22 10:33:00 EST, Height, 93, kg, 01/28/22 14:55:00 EDT, Dry Weight Start Date: 09/01/22 Status: Ordered Nicotine 7 mg/24 hour patch 1 patch, Topically, Daily, # 30 patch, 0 Refills, Acute 09/26/22 8:00:00 EDT, 08/29/22 16:51:00 EST, Patch, [facility]/pharmacy #[id number], Partial fill upon [...] # 15 Unknown, 2 Refills, [facility], 175.2, cm, 05/27/21 11:26:00 EST, Height, 88.3, kg, 03/12/21 9:16:00 EDT, Dry Weight Start Date: 06/04/21 Status: Ordered Pen [place], 31 G x 5 mm BD Ultra [...] Refills, Maintenance, 05/21/22 13:33:00 EST, [facility], 175, cm, 05/09/22 11:08:00 EDT, Height, 93, kg, 01/28/22 14:55:00 EDT, Dry Weight Start Date: 05/21/22 Status: Ordered SEROquel 100 mg oral tablet 100 mg, 1, tablet, By Mouth, 2 times a day, PRN, # 1 tablet, Refills 2, Tot. Refills 2, Maintenance, Anxiety, 09/21/19 10:41:00 EDT, Route to Pharmacy Electronically, [facility]/pharmacy #[id number], 172, cm, 09/05/19 [...] 9 Unknown, 1 Refills, 01/21/22 15:39:00 EDT, [facility]/pharmacy #[id number], 175.2, cm, 12/18/21 14:10:00 EDT, Height... Start Date: 01/21/22 Status: Ordered Trulicity Pen 0.75 mg/0.5 mL subcutaneous solution 0.5 mL = 0.75 mg, Subcutaneous Injection, Every week, # 2.5 mL, 2 Refills, Maintenance, 04/08/22 9:12:00 EDT, Solution, [facility]/pharmacy #[id number], Partial fill upon patient request if the prescription is for a schedule II opioid drug., 175, cm, 04/08/22 8:34... Start Date: 04/08/22 Status: Ordered Ventolin HFA 108 mcg/inh inhalation aerosol with adapter 2 puffs, Inhalation, Every 4 hours, PRN for wheezing, for 180 days, # 1 each, 0 Refills, Acute 03/05/23 16:25:00 EDT, 09/06/22 16:25:00 EST, Aerosol, [facility]/pharmacy #[id number], Partial fill upon patient request if the prescription is for a schedule II opioid... Start Date: 09/06/22 Stop Date: 03/05/23 Status: Ordered Vitamin D3 2000 intl units oral capsule 1 capsule, By Mouth, Daily, # 30 capsule, 5 Refills, 05/21/22 10:19:00 EST, [facility]/pharmacy #[id number], 175, cm, 05/09/22 [...] 524 weeks therapy with sofosbuvir/weight based ribavirin 32173 inferolateral stent bare metal circumflex 7DR Marissa [...] Team Personnel Name: Jeffrey Mccoy MD Position: [facility] Renal MD Member Role: Lifetime Consulting Physician Address: Address: [address] [place] [address] [facility] [place], [place] [address] Name: Kelly Butler NP Position: [facility] PCO Associate Professional Member Role: PCP Address: Address: [address] [place] [id number]- Name: Kristin Mckenzie Position: [facility] Outreach Member Role: Lifetime Consulting Physician Name: Prieto Tobin RN Position: [facility] RN Member Role: Primary Care Nurse Name: Jonn Hui DO Position: [facility] Renal MD Member Role: Lifetime Consulting Physician Address: Address: [address] [place], [place] [address] [place] [address]- Name: Luis Angel Stephen RN Position: [facility] RN Member Role: Primary Care Nurse Name: Tamie Baird RN Position: [facility] RN Member Role: Primary Care Nurse Care Team Related Persons Name: CARLOS A BORDEN Address: home [address] [place] [address] Name: LEVI BORDEN Address: home [address] [place] [address]
--- OUTSIDE RECORDS SUMMARY | 2024-06-01 11:56 | XMS_ITS | Continuity of Care Document ---
Author Organization [facility] Address [address] [place] [address]- Care Team Providers Care Junior Analyst Name Role Phone Carrie Kelly RIVERA Primary Care Physician [facility] Date(s): 02/02/24 - 03/03/24 [facility] [address] [place] [address]- Attending Physician: Radha Biggs Admitting Physician: Admtr, Radha Referring Physician: Admtr, Ar8 Allergies, Adverse Reactions, Alerts Substance Reaction Severity Status Bee Stings Active Immunizations Given and Recorded Vaccine Date Status Refusal Reason SARS-CoV-2(COVID-19)mRNA-LNP vac([id number]) 12/31/23 Recorded SARS-CoV-2(COVID-19)mRNA-LNP vac([id number]) 05/08/23 Recorded tetanus/diphtheria/pertussis, acel(Tdap) 10/15/23 Recorded tetanus/diphtheria/pertussis, [...] 02/03/23 Recorded zoster vaccine, inactivated 08/09/19 Recorded [id number] 12y+ bivalent booster vax 05/17/22 Recorded SARS-CoV-2 [...] adult vaccine 4 12/10/10 Given 1Result Comment: [id number] 2Result Comment: [id number] 3Admin Note: pt waited 10 mins post [...] Refills, Maintenance, 02/15/24 13:38:00 EDT, Powder, [facility]/pharmacy #[id number], Partial fill upon patient request if the prescription is for a schedule II opioid drug., 1 puffs... Start Date: 02/15/24 Status: Ordered amLODIPine 10 mg oral tablet 10 mg, By Mouth, Daily, # 30 tablet, Refills 0, Tot. Refills 0, Maintenance, 02/29/24 9:42:00 EDT, Route to Pharmacy Electronically, [facility]/pharmacy #[id number], Partial fill upon patient request if the prescription is for a schedule II opioid drug., 168, cm,... Start Date: 02/29/24 Stop Date: 03/30/24 Status: Ordered aspirin 81 mg oral delayed release tablet 1 tablet, By Mouth, Daily, # 90 tablet, 1 Refills, Maintenance, 01/25/24 21:53:00 EDT, [facility]/pharmacy#[id number], 168, cm, 01/11/24 14:42:00 EDT, Height, [...] day prn cough (Max 600 mg in [id number]-nzaw period), # 30 capsule, 0 Refills, Maintenance, 02/05/24 12:47:00 EDT, Capsule, [facility]/pharmacy#[id number], Partial fill upon patient request if the [...] 02/29/24 11:18:00 EDT, Route to Pharmacy Electronically, [facility]/pharmacy #[id number], Partial fill upon patient request if the prescriptio... Start Date: 02/29/24 Stop Date: 03/14/24 Status: Ordered D3 50 mcg (2000 intl units) oral capsule 1 capsule, By Mouth, Daily, # 90 capsule, 0 Refills, Maintenance, 12/09/23 14:09:00 EDT, [facility]/pharmacy #[id number], 168, cm, 10/27/23 15:34:00 EDT, Height, 93, kg, 01/28/22 14:55:00 EDT, Dry Weight Start Date: 12/09/23 Status: Ordered Daily Simone oral tablet 1 tablet, By Mouth, Daily, # 90 tablet, 1 Refills, Maintenance, 01/25/24 16:01:00 EDT, [facility]/pharmacy#[id number], 90, 1 tablet By Mouth Daily, 168, cm, 01/11/24 14:42:00 EDT, Height, 93, kg, 01/28/22 14:55:00 EDT, Dry Weight Start Date: 01/25/24 Status: Ordered dapagliflozin 10 mg oral tablet 1 tablet = 10 mg, By Mouth, Daily, # 30 tablet, 0 Refills, Maintenance, 01/11/24 14:46:00 EDT, Tablet, [facility]/pharmacy #[id number], Partial fill upon patient [...] 7:23:00 EDT, Route to Pharmacy Electronically, [facility]/pharmacy #[id number], 168, cm, 02/15/24 13:43:00 EDT, [...] 01/21/19 11:25:36 EDT, Route to Pharmacy Electronically, [id number], [facility]/pharmacy #[id number] Start Date: 01/21/19 Stop [...] mL, 0 Refills, Maintenance, 02/02/24 15:28:00 EDT, [id number], Partial fill upon patient... Start Date: 02/02/24 Status: Ordered Pen [place], 31 G [...] Refills, Maintenance, 02/04/24 16:39:00 EDT, [facility], 168, cm, 02/03/24 10:41:00 EDT, Height Start Date: 02/04/24 Status: Ordered senna - oral tablet 2 tablet, By Mouth, Daily at bedtime, PRN for constipation, for 14 days, # 28 tablet, 0 Refills, Acute 03/14/24 11:19:00 EDT, 02/29/24 11:19:00 EDT, Tablet, [facility]/pharmacy #[id number], Partial fill upon patient [...] 4, GFR 15-29 ml/min Confirmed Active ASHD; [place] 2012/stent circumflex vessel cath;abdelrahman 2018 3 Confirmed [...] mild to moderate. 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 2013/[place] 4secondary to hep C 524 weeks therapy with sofosbuvir/weight based ribavirin 30318 inferolateral stent bare metal circumflex 7DR Molddoverno [...] Team Personnel Name: Jeffrey Mccoy MD Position: [facility] Renal MD Member Role: Lifetime Consulting Physician Address: Address: [address] [place], [place] [address] [place], [place] [address] Name: Kelly Butler NP Position: [facility] PCO Associate Professional Member Role: PCP Address: Address: [address] [place] [id number]- Name: Kristin Mckenzie Position: [facility] Outreach Member Role: Lifetime Consulting Physician Name: Fortunato Sin RN Position: [facility] RN Member Role: Primary Care Nurse Name: Nury Watts RN Position: [facility] RN Member Role: Primary Care Nurse Name: Antonia Mena NP Position: [facility] Associate Professional Member Role: Lifetime Consulting Provider Address: Address: [address] [place], [place] [address] [place], [place] - Name: Prieto Tobin RN Position: [facility] RN Member Role: Primary Care Nurse Name: Ashleigh Reynoso RN Position: [facility] RN Member Role: Primary Care Nurse Name: Jonn Hui DO Position: [facility] Renal MD Member Role: Lifetime Consulting Physician Address: Address: [address] [place], [place] [address] [place] [address]- Name: Luis Angel Stephen RN Position: S RN Member Role: Primary Care Nurse Name: Brandan Nogueira RN Position: S RN Member Role: Primary Care Nurse Care Team Related Persons Name: CARLOS A BORDEN Address: [address] [place] [address] Name: LEVI BORDEN Address: [address] [place] [address]
--- OUTSIDE RECORDS SUMMARY | 2024-06-01 11:56 | XMS_ITS | Continuity of Care Document ---
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) - 01/13/23 Bipolar disorder(Discharge Diagnosis) - 01/13/23 CKD (chronic kidney disease) stage 4, GFR 15-29 ml/min(Discharge Diagnosis) - 01/13/23 Hypertension(Discharge Diagnosis) - 01/13/23 History of alcoholism(Discharge Diagnosis) - 01/13/23 Multiple lung nodules LDCT (Discharge Diagnosis) - 01/13/23 Attending Physician: Kelly Butler NP Referring Physician: Luis Angel Cool MD Allergies, Adverse Reactions, Alerts Substance Reaction [...] influenza virus vaccine, inactivated 04/16/10 Give n [id number] 12y+ bivalent booster vax 05/17/22 Recorded SARS-CoV-2 [...] tablet, 1 Refills, Maintenance, 12/30/22 14:35:00 EDT, [facility]/pharmacy#[id number], 175, cm, 10/09/22 16:51:00 EDT, [...] tablet, 1 Refills, Maintenance, 01/07/23 21:36:00 EDT, [facility] 14[facility], 90, TAKE 1 TABLET BY MOUTH EVERY [...] capsule, 0 Refills, Maintenance, 12/30/22 14:30:00 EDT, [facility]/pharmacy #[id number], 175, cm, 10/09/22 16:51:00 EDT, Height, 93, kg, 01/28/22 14:55:00 EDT, Dry Weight Start Date: 12/30/22 Status: Ordered docusate sodium 100 mg oral capsule 1 capsule, By Mouth, 2 times a day, PRN NEEDED FOR CONSTIPATION, # 60 capsule, 5 Refills, Maintenance, 07/18/22 11:59:00 EST, [facility]/pharmacy #[id number], 175, cm, 07/17/22 10:33:00 EST, Height, 93, kg, 01/28/22 14:55:00 EDT, Dry Weight Start Date: 07/18/22 Status: Ordered Flonase 50 mcg/inh nasal spray 1 sprays, Nares, Both, 2 times a day, # 16 Gm, 0 Refills, Maintenance, 09/05/22 9:15:00 EST, [place],[facility]/pharmacy #[id number], Partial fill upon patient request if the prescription is for a schedule II opioid drug., 1 sprays Nares, Both 2 times a day, 175, c... Start Date: 09/05/22 Status: Ordered folic acid 1 mg oral tablet 1, tablet, By Mouth, Daily, # 90 tablet, Refills 1, Tot. Refills 1, Maintenance, 01/08/23 13:00:00 EDT, Route to Pharmacy Electronically, [facility]/pharmacy #[id number], 175, cm, 10/09/22 16:51:00 [...] 01/21/19 11:25:36 EDT, Route to Pharmacy Electronically, [id number], [facility]/pharmacy #[id number] Start Date: 01/21/19 Stop Date: 05/21/19 Status: Ordered lisinopril 40 mg oral tablet 1 tablet, By Mouth, Daily, # 90 tablet, 0 Refills, Maintenance, 12/29/22 11:59:00 EDT, [facility]/pharmacy#[id number], 175, cm, 10/09/22 16:51:00 EDT, Height, 93, kg, 01/28/22 14:55:00 EDT, Dry Weight Start Date: 12/29/22 Status: Ordered Metoprolol Tartrate 50 mg oral tablet 1.5 tablet, By Mouth, 2 times a day, # 270 tablet, 1 Refills, Maintenance, 09/01/22 13:28:00 EST, [facility], 175, cm, 07/17/22 10:33:00 EST, Height, 93, kg, 01/28/22 14:55:00 EDT, Dry Weight Start Date: 09/01/22 Status: Ordered nitroglycerin 0.4 mg sublingual tablet [...] Weight Start Date: 11/07/22 Status: Ordered Pen [place], 31 G x 5 mm BD Ultra [...] capsule, 2 Refills, Maintenance, 08/07/22 12:55:00EST, Capsule, [facility]/pharmacy #[id number], 175, cm, 07/17/22 10:33:00 EST, Height, 93, kg, 01/28/22 14:55:00EDT, Dry Weight Start Date: 08/07/22 Status: Ordered rosuvastatin 20 mg oral tablet 1 tablet, By Mouth, Daily, # 90 tablet, 0 Refills, Maintenance, 12/30/22 14:34:00 EDT, [id number], 175, cm, 10/09/22 16:51:00 EDT, Height, 93, kg, 01/28/22 14:55:00 EDT, Dry Weight Start Date: 12/30/22 Status: Ordered Senna 8.6 mg oral tablet 1 or 2 tablets, By Mouth, Daily at bedtime, PRN, # 60 tablet, Refills 5, Tot. Refills 5, Maintenance, Constipation, 11/03/22 15:04:00 EDT, Route to Pharmacy Electronically, [facility]/pharmacy #[id number] Tablet,Partial fill upon patient request if the prescripti... Start Date: 11/03/22 Status: Ordered SEROquel 100 mg oral tablet 100 mg, 1, tablet, By Mouth, 2 times a day, PRN, # 1 tablet, Refills 2, Tot. Refills 2, Maintenance, Anxiety, 09/21/19 10:41:00 EDT, Route to Pharmacy Electronically, [facility]/pharmacy #[id number], 172, cm, 09/05/19 16:17:00 [...] 9 Unknown, 1 Refills, 01/21/22 15:39:00 EDT, [facility]/pharmacy #[id number], 175.2, cm, 12/18/21 14:10:00 EDT, Height... Start Date: 01/21/22 Status: Ordered Trulicity Pen 0.75 mg/0.5 mL subcutaneous solution 0.5 mL = 0.75 mg, Subcutaneous Injection, Every week, # 2.5 mL, 1 Refills, Maintenance, 01/13/23 9:59:00 EDT, Solution, [facility]/pharmacy #[id number], 175, cm, 10/09/22 16:51:00 EDT, Height, 93, kg, 01/28/22 14:55:00 EDT, Dry Weight Start Date: 01/13/23 Status: Ordered Ventolin HFA 108 mcg/inh inhalation [...] mild to moderate. 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 2013/[place] 4secondary to hep C 524 weeks therapy with sofosbuvir/weight based ribavirin 19179 inferolateral stent bare metal circumflex 7DR Molddoida sx;Dr Schwartz 8hyperplatic polyp repeat screening in 2025 9repeat colonoscopy in 5 years Diagnosis Diagnosis Type Effective Dates Health Status Clinical Service Informant Type 2 diabetes mellitus with diabetic nephropathy Discharge Diagnosis 01/13/23 Bipolar disorder Discharge Diagnosis 01/13/23 CKD (chronic kidney disease) stage 4, GFR 15-29 ml/min Discharge Diagnosis 01/13/23 Hypertension Discharge Diagnosis 01/13/23 History of alcoholism Discharge Diagnosis 01/13/23 Multiple lung nodules LDCT Discharge Diagnosis 01/13/23 Social History Social History Type Response Smoking Status Former smoker, quit more than 30 days ago; Interested in cessation: No; Other: quit; Tobacco use times per day: prio 1/2-1 ppd; Total pack years: 38; Started at age: 12; Stopped at age: 63; entered on: 07/20/20 Sex Patient Care team information Care Team Personnel Name: Jeffrey Mccoy MD Position: [facility] Renal MD Member Role: Lifetime Consulting Physician Address: Address: [address] [place] [address] [facility] [place], [place] [address] Name: Kelly Butler NP Position: [facility] PCO Associate Professional Member Role: PCP Address: Address: [address] [place] [id number] Name: Kristin Mckenzie Position: [facility] Outreach Member Role: Lifetime Consulting Physician Name: Prieto Tobin RN Position: [facility] RN Member Role: Primary Care Nurse Name: Jonn Hui DO Position: [facility] Renal MD Member Role: Lifetime Consulting Physician Address: Address: [address] [place], [place] [address] [place], [place] [address] Name: Luis Angel Stephen RN Position: [facility] RN Member Role: Primary Care Nurse Care Team Related Persons Name: CARLOS A BORDEN Address: [address] [place] [address] Name: LEVI BORDEN Address: [address] [place] [address]
--- OUTSIDE RECORDS SUMMARY | 2024-06-01 11:56 | XMS_ITS | Continuity of Care Document ---
Author Organization [facility] Shawn Lazaro lt Address [address] [place] [address]- Care Team Providers Care Garment Tag Stringer Name Role Phone Carrie Kelly RIVERA Primary Care Physician Encounter [facility] Date(s): 01/12/23 - 02/11/23 [facility] Shawn Adult [address] [place] [address]- Allergies, Adverse Reactions, Alerts Substance Reaction Severity [...] influenza virus vaccine, inactivated 04/16/10 Give n [id number] 12y+ bivalent booster vax 05/17/22 Recorded SARS-CoV-2 [...] tablet, 1 Refills, Maintenance, 12/30/22 14:35:00 EDT, [facility]/pharmacy#[id number], 175, cm, 10/09/22 16:51:00 EDT, [...] Refills, Maintenance, 01/07/23 21:36:00 EDT, [facility], 90, TAKE 1 TABLET BY MOUTH EVERY [...] capsule, 0 Refills, Maintenance, 12/30/22 14:30:00 EDT, [id number], 175, cm, 10/09/22 16:51:00 EDT, Height, 93, kg, 01/28/22 14:55:00 EDT, Dry Weight Start Date: 12/30/22 Status: Ordered docusate sodium 100 mg oral capsule 1 capsule, By Mouth, 2 times a day, PRN NEEDED FOR CONSTIPATION, # 60 capsule, 5 Refills, Maintenance, 07/18/22 11:59:00 EST, [facility]/pharmacy #[id number], 175, cm, 07/17/22 10:33:00 EST, Height, 93, kg, 01/28/22 14:55:00 EDT, Dry Weight Start Date: 07/18/22 Status: Ordered Flonase 50 mcg/inh nasal spray 1 sprays, Nares, Both, 2 times a day, # 16 Gm, 0 Refills, Maintenance, 09/05/22 9:15:00 EST, [place],[facility]/pharmacy #[id number], Partial fill upon patient request if the prescription is for a schedule II opioid drug., 1 sprays Nares, Both 2 times a day, 175, c... Start Date: 09/05/22 Status: Ordered folic acid 1 mg oral tablet 1, tablet, By Mouth, Daily, # 90 tablet, Refills 1, Tot. Refills 1, Maintenance, 01/08/23 13:00:00 EDT, Route to Pharmacy Electronically, [facility]/pharmacy #[id number], 175, cm, 10/09/22 [...] 01/21/19 11:25:36 EDT, Route to Pharmacy Electronically, [id number], [facility]/pharmacy #[id number] Start Date: 01/21/19 Stop Date: 05/21/19 Status: Ordered lisinopril 40 mg oral tablet 1 tablet, By Mouth, Daily, # 90 tablet, 0 Refills, Maintenance, 12/29/22 11:59:00 EDT, [facility]/pharmacy#[id number], 175, cm, 10/09/22 16:51:00 EDT, Height, 93, kg, 01/28/22 14:55:00 EDT, Dry Weight Start Date: 12/29/22 Status: Ordered Metoprolol Tartrate 50 mg oral tablet 1.5 tablet, By Mouth, 2 times a day, # 270 tablet, 1 Refills, Maintenance, 09/01/22 13:28:00 EST, [facility], 175, cm, 07/17/22 10:33:00 EST, Height, 93, [...] 15 Unknown, 2 Refills, 11/07/22 0:09:00 EDT, [facility]/pharmacy #[id number], 175, cm, 10/09/22 16:51:00 EDT, Height, 93, kg, 01/28/22 14:55:00 EDT, Dry Weight Start Date: 11/07/22 Status: Ordered Pen [place], 31 G x 5 mm BD Ultra [...] capsule, 2 Refills, Maintenance, 08/07/22 12:55:00EST, Capsule, [facility]/pharmacy #[id number], 175, cm, 07/17/22 10:33:00 EST, Height, 93, kg, 01/28/22 14:55:00EDT, Dry Weight Start Date: 08/07/22 Status: Ordered rosuvastatin 20 mg oral tablet 1 tablet, By Mouth, Daily, # 90 tablet, 0 Refills, Maintenance, 12/30/22 14:34:00 EDT, [facility]/pharmacy#[id number], 175, cm, 10/09/22 16:51:00 EDT, Height, 93, kg, 01/28/22 14:55:00 EDT, Dry Weight Start Date: 12/30/22 Status: Ordered Senna 8.6 mg oral tablet 1 or 2 tablets, By Mouth, Daily at bedtime, PRN, # 60 tablet, Refills 5, Tot. Refills 5, Maintenance, Constipation, 11/03/22 15:04:00 EDT, Route to Pharmacy Electronically, [facility]/pharmacy #[id number] Tablet,Partial fill upon patient request if the prescripti... Start Date: 11/03/22 Status: Ordered SEROquel 100 mg oral tablet 100 mg, 1, tablet, By Mouth, 2 times a day, PRN, # 1 tablet, Refills 2, Tot. Refills 2, Maintenance, Anxiety, 09/21/19 10:41:00 EDT, Route to Pharmacy Electronically, [facility]/pharmacy #[id number], 172, cm, 09/05/19 16:17:00 [...] 9 Unknown, 1 Refills, 01/21/22 15:39:00 EDT, [facility]/pharmacy #[id number], 175.2, cm, 12/18/21 14:10:00 EDT, Height... Start Date: 01/21/22 Status: Ordered Trulicity Pen 0.75 mg/0.5 mL subcutaneous solution 0.5 mL = 0.75 mg, Subcutaneous Injection, Every week, # 2.5 mL, 1 Refills, Maintenance, 01/13/23 9:59:00 EDT, Solution, [facility]/pharmacy #[id number], 175, cm, 10/09/22 [...] 4, GFR 15-29 ml/min Confirmed Active ASHD; [place] 2012/stent circumflex vessel cath;abdelrahman 2018 3 Confirmed [...] mild to moderate. 3MI 2012 circumflex stent 2012/[place] 4secondary to hep C 524 weeks therapy with sofosbuvir/weight based ribavirin 96198 inferolateral stent bare metal circumflex 7DR Moldvernmateo [...] Role: Lifetime Consulting Physician Address: Address: [address] [place] [address] [facility] [place] [address]- Name: Kelly Butler NP Position: [facility] PCO Associate Professional Member Role: PCP Address: Address: [address] [place] [address]- Name: Kristin Mckenzie Position: [facility] Outreach Member Role: Lifetime Consulting Physician Name: Prieto Tobin RN Position: [facility] RN Member Role: Primary Care Nurse Name: Jonn Hui DO Position: [facility] Renal MD Member Role: Lifetime Consulting Physician Address: Address: [address] [place], [place] [address] [place], [place] [address] Name: Luis Angel Stephen RN Position: [facility] RN Member Role: Primary Care Nurse Care Team Related Persons Name: CARLOS A BORDEN Address: home [address] [place] [address] Name: LEVI BORDEN Address: home [address] [place] [address]
--- OUTSIDE RECORDS SUMMARY | 2024-06-01 11:56 | XMS_ITS | Continuity of Care Document ---
Author Organization [facility] Shawn Lazaro lt Address [address] [place] [address]- Care Team Providers Care Assembler Piano Name Role Phone Carrie Kelly RIVERA Primary Care Physician Encounter [facility] Date(s): 04/20/23 - 05/20/23 [facility] Adult [address] [place] [address]- Allergies, Adverse Reactions, Alerts Substance Reaction Severity Status Bee Stings Active Immunizations Given and Recorded Vaccine Date Status Refusal Reason SARS-CoV-2(COVID-19)mRNA-LNP vac([id number]) 05/08/23 Recorded pneumococcal 20-valent conjugate vaccine 1 [...] 02/03/23 Recorded zoster vaccine, inactivated 08/09/19 Recorded [id number] 12y+ bivalent booster vax 05/17/22 Recorded SARS-CoV-2 [...] adult vaccine 4 12/10/10 Given 1Result Comment: [id number] 2Result Comment: [id number] 3Admin Note: pt waited 10 mins post inj no adverse reaction noted.j a 4Admin Note: PT WAITED 10 MIN WITH NO ADVERSE REACTION. MH Medications aspirin 81 mg oral delayed release tablet 1 tablet, By Mouth, Daily, # 90 tablet, 1 Refills, Maintenance, 12/30/22 14:35:00 EDT, [facility]/pharmacy#[id number], 175, cm, 10/09/22 16:51:00 EDT, Height, [...] tablet, 1 Refills, Maintenance, 01/07/23 21:36:00 EDT, [facility], 90, TAKE 1 TABLET BY MOUTH EVERY [...] capsule, 0 Refills, Maintenance, 03/31/23 14:24:00 EDT, [facility]/pharmacy #[id number], 175, cm, 10/09/22 16:51:00 EDT, Height, 93, kg, 01/28/22 14:55:00 EDT, Dry Weight Start Date: 03/31/23 Status: Ordered folic acid 1 mg oral tablet 1, tablet, By Mouth, Daily, # 90 tablet, Refills 1, Tot. Refills 1, Maintenance, 01/08/23 13:00:00 EDT, Route to Pharmacy Electronically, [facility]/pharmacy #[id number], 175, cm, 10/09/22 16:51:00 EDT, [...] 01/21/19 11:25:36 EDT, Route to Pharmacy Electronically, [id number], [facility]/pharmacy #[id number] Start Date: 01/21/19 Stop Date: 05/21/19 Status: Ordered lamotrigine 100 mg oral tablet Refills 0, Maintenance, 05/01/23 15:28:00 EDT, Partial fill upon patient request if the prescription is for a schedule II opioid drug. Start Date: 05/01/23 Status: Ordered lisinopril 40 mg oral tablet 1 tablet, By Mouth, Daily, # 90 tablet, 0 Refills, Maintenance, 04/21/23 10:51:00 EDT, [facility], 175, cm, 10/09/22 16:51:00 EDT, Height, 93, [...] Refills, Maintenance, 02/20/23 7:15:00 EDT, [facility], 175, cm, 10/09/22 16:51:00 EDT, Height, 93, [...] tablet, 0 Refills, Maintenance, 10/03/22 15:53:00 EDT, [facility]/pharmacy #[id number], 175, cm, 09/17/22 13:59:00 EDT, Height,... Start Date: 10/03/22 Status: Ordered NovoLOG FlexPen 100 units/mL injectable solution See Instructions, INJECT 0-18 UNITS SUBCUTANEOUSLY WITH MEALS FOR SLIDING SCALES, # 15 Unknown, 2 Refills, 11/07/22 0:09:00 EDT, [facility]/pharmacy #[id number], 175, cm, 10/09/22 16:51:00 EDT, Height, 93, kg, 01/28/22 14:55:00 EDT, Dry Weight Start Date: 11/07/22 Status: Ordered Pen [place], 31 G x 5 mm BD Ultra Fine III See Instructions, # 150 each, Refills 11, Tot. Refills 11, Maintenance, Test blood sugar 5 times daily, 08/20/21 16:50:00 EST, DM E11.9, Compound, 175.2, cm, 07/31/21 11:20:00 EST, Height, 88.3, kg, 03/12/21 9:16:00 EDT, Dry Weight Start Date: 08/20/21 Status: Ordered pregabalin 50 mg oral capsule 1 capsule = 50 mg, By Mouth, Daily, # 90 capsule, 0 Refills, Maintenance, 05/19/23 14:43:00 EST, Capsule, Partial fill upon patient request if the prescription is for a schedule II opioid drug. Start Date: 05/19/23 Stop Date: 06/18/23 Status: Ordered rosuvastatin 20 mg oral tablet 1 tablet, By Mouth, Daily, # 90 tablet, 1 Refills, Maintenance, 03/29/23 14:43:00 EDT, [facility], 175, cm, 10/09/22 16:51:00 EDT, Height, 93, [...] 524 weeks therapy with sofosbuvir/weight based ribavirin 96511 inferolateral stent bare metal circumflex 7DR Molddovernmateo [...] Team Personnel Name: Jeffrey Mccoy MD Position: [facility] Renal MD Member Role: Lifetime Consulting Physician Address: Address: [address] [place] [address] [facility] [place] [address]- Name: Kelly Butler NP Position: [facility] PCO Associate Professional Member Role: PCP Address: Address: [address] [place] [address]- Name: Kristin Mckenzie Position: [facility] Outreach Member Role: Lifetime Consulting Physician Name: Prieto Tobin RN Position: S RN Member Role: Primary Care Nurse Name: Jonn Hui DO Position: [facility] Renal MD Member Role: Lifetime Consulting Physician Address: Address: [address] [place], [place] [address]E [facility] [place] [address]- Name: Zafar CALVO, Luis Angel Rojas Position: [facility] RN Member Role: Primary Care Nurse Care Team Related Persons Name: CARLOS A BORDEN Address: home [address] [place] [address] Name: LEVI BORDEN Address: home [address] [place] [address]
--- OUTSIDE RECORDS SUMMARY | 2024-06-01 11:56 | XMS_ITS | Continuity of Care Document ---
Author Organization [facility] Shawn Lazaro lt Address [address] [place] [address]- Care Team Providers Care Director Of Automation Name Role Phone Carrie Kelly RIVERA Primary Care Physician Encounter [facility] Date(s): 08/17/23 - 09/16/23 [facility] Adult [address] [place] [address]- Allergies, Adverse Reactions, Alerts Substance Reaction Severity Status Bee Stings Active Immunizations Given and Recorded Vaccine Date Status Refusal Reason SARS-CoV-2(COVID-19)mRNA-LNP vac([id number]) 05/08/23 Recorded pneumococcal 20-valent conjugate vaccine 1 [...] 02/03/23 Recorded zoster vaccine, inactivated 08/09/19 Recorded [id number] 12y+ bivalent booster vax 05/17/22 Recorded SARS-CoV-2 [...] adult vaccine 4 12/10/10 Given 1Result Comment: [id number] 2Result Comment: [id number] 3Admin Note: pt waited 10 mins post inj no adverse reaction noted.j a 4Admin Note: PT WAITED 10 MIN WITH NO ADVERSE REACTION. MH Medications aspirin 81 mg oral delayed release tablet 1 tablet, By Mouth, Daily, # 90 tablet, 1 Refills, Maintenance, 06/02/23 11:42:00 EST, [facility]/pharmacy#[id number], 168, cm, 05/01/23 14:45:00 EDT, Height, 93, [...] capsule, 1 Refills, Maintenance, 06/30/23 7:20:00 EST, [facility], 168, cm, 05/01/23 14:45:00 EDT, Height, 93, kg, 01/28/22 14:55:00 EDT, Dry Weight Start Date: 06/30/23 Status: Ordered Daily Simone oral tablet 1 tablet, By Mouth, Daily, # 90 tablet, 1 Refills, Maintenance, 06/30/23 7:20:00 EST, [facility], 90, TAKE 1 TABLET BY MOUTH EVERY [...] Refills, Maintenance, 06/26/23 6:50:00 EST, [facility], 168, cm, 05/01/23 14:45:00 EDT, Height, 93, kg, 01/28/22 14:55:00 EDT, Dry Weight Start Date: 06/26/23 Status: Ordered folic acid 1 mg oral tablet 1, tablet, By Mouth, Daily, # 90 tablet, Refills 1, Tot. Refills 1, Maintenance, 07/03/23 10:01:00 EST, Route to Pharmacy Electronically, [facility]/pharmacy #[id number], 168, cm, 05/01/23 14:45:00 EDT, [...] 01/21/19 11:25:36 EDT, Route to Pharmacy Electronically, [id number], [facility]/pharmacy #[id number] Start Date: 01/21/19 Stop Date: 05/21/19 Status: Ordered lamotrigine 100 mg oral tablet Refills 0, Maintenance, 05/01/23 15:28:00 EDT, Partial fill upon patient request if the prescription is for a schedule II opioid drug. Start Date: 05/01/23 Status: Ordered lisinopril 40 mg oral tablet 1 tablet, By Mouth, Daily, # 90 tablet, 1 Refills, Maintenance, 08/17/23 13:33:00 EST, [facility]/pharmacy#[id number], 168, cm, 07/23/23 15:05:00 EST, Height, 93, kg, 01/28/22 14:55:00 EDT, Dry Weight Start Date: 08/17/23 Status: Ordered Metoprolol Tartrate 50 mg oral tablet 1.5 tablet, By Mouth, 2 times a day, # 270 tablet, 1 Refills, Maintenance, 09/16/23 14:32:00 EDT, [facility]/pharmacy #[id number], 168, cm, 07/23/23 15:05:00 EST, [...] Weight Start Date: 11/07/22 Status: Ordered Pen [place], 31 G x 5 mm BD Ultra [...] capsule, 2 Refills, Maintenance, 07/03/23 9:40:00 EST, [facility]/pharmacy #[id number], Partial fill upon patient request if the prescription is for a schedule II opioid drug., 168, cm, 05/01/23 14:45:00 EDT, Height, 93, kg... Start Date: 07/03/23 Status: Ordered rosuvastatin 20 mg oral tablet 1 tablet, By Mouth, Daily, # 90 tablet, 1 Refills, Maintenance, 03/29/23 14:43:00 EDT, [facility], 175, cm, 10/09/22 16:51:00 EDT, Height, 93, [...] 4, GFR 15-29 ml/min Confirmed Active ASHD; [place] 2012/stent circumflex vessel cath;abdelrahman 2018 3 Confirmed [...] mild to moderate. 3MI 2012 circumflex stent 2012/[place] 4secondary to hep C 524 weeks therapy with sofosbuvir/weight based ribavirin 63658 inferolateral stent bare metal circumflex 7DR Marissa [...] Team Personnel Name: Jeffrey Mccoy MD Position: [facility] Renal MD Member Role: Lifetime Consulting Physician Address: Address: [address] [place] [address] [address] [facility] [place], [place] [address] Name: Kelly Butler NP Position: [facility] PCO Associate Professional Member Role: PCP Address: Address: [address] [place] [address]- Name: Kristin Mckenzie Position: [facility] Outreach Member Role: Lifetime Consulting Physician Name: Prieto Tobin RN Position: [facility] RN Member Role: Primary Care Nurse Name: Jonn Hui DO Position: [facility] Renal MD Member Role: Lifetime Consulting Physician Address: Address: [address] [place] [address] [address] [facility] [place], [place] [address] Name: Luis Angel Stephen RN Position: [facility] RN Member Role: Primary Care Nurse Care Team Related Persons Name: CARLOS A BORDEN Address: home [address] [place] [address] Name: LEVI BORDEN Address: home [address] [place] [address]
--- OUTSIDE RECORDS SUMMARY | 2024-06-01 11:56 | XMS_ITS | Continuity of Care Document ---
Author Organization [facility] Shawn Lazaro lt Address [address] [place] [address]- Care Team Providers Care Adventure Challenge Instructor Name Role Phone Carrie PATIENT FINANCIAL SPECIALISTKelly Primary Care Physician [facility]counter [facility] Date(s): 10/09/22 - 11/08/22 [facility] Adult [address] [place] [address]- Attending Physician: Admtr, [id number] Admitting Physician: Admtr, [id number] Referring Physician: Admtr, [...] influenza virus vaccine, inactivated 04/16/10 Give n [id number] 12y+ bivalent booster vax 05/17/22 Recorded SARS-CoV-2 [...] tablet, 3 Refills, Maintenance, 09/30/21 12:28:00 EDT, [facility]/pharmacy#[id number], 175.2, cm, 09/20/21 8:36:00 EDT, Height, 88.3, [...] 5 Refills, Maintenance, 08/15/22 10:27:00 EST, Tablet, [facility]/pharmacy #[id number], 1 tablet By Mouth Daily,x30 [...] capsule, 0 Refills, Maintenance, 10/24/22 10:10:00 EDT, [facility]/pharmacy #[id number], 175, cm, 10/09/22 16:51:00 EDT, Height, 93, kg, 01/28/22 14:55:00 EDT, Dry Weight Start Date: 10/24/22 Status: Ordered docusate sodium 100 mg oral capsule 1 capsule, By Mouth, 2 times a day, PRN NEEDED FOR CONSTIPATION, # 60 capsule, 5 Refills, Maintenance, 07/18/22 11:59:00 EST, [facility]/pharmacy #[id number], 175, cm, 07/17/22 10:33:00 EST, Height, 93, kg, 01/28/22 14:55:00 EDT, Dry Weight Start Date: 07/18/22 Status: Ordered Flonase 50 mcg/inh nasal spray 1 sprays, Nares, Both, 2 times a day, # 16 Gm, 0 Refills, Maintenance, 09/05/22 9:15:00 EST, [place],[facility]/pharmacy #[id number], Partial fill upon patient request if the prescription is for a schedule II opioid drug., 1 sprays Nares, Both 2 times a day, 175, c... Start Date: 09/05/22 Status: Ordered folic acid 1 mg oral tablet 1, tablet, By Mouth, Daily, # 30 tablet, Refills 5, Tot. Refills 5, Maintenance, 08/15/22 10:27:00 EST, Route to Pharmacy Electronically, [facility]/pharmacy #[id number], 175, cm, 07/17/22 10:33:00 EST, [...] 01/21/19 11:25:36 EDT, Route to Pharmacy Electronically, [id number], [facility]/pharmacy #[id number] Start Date: 01/21/19 Stop Date: 05/21/19 Status: Ordered lisinopril 40 mg oral tablet 1 tablet, By Mouth, Daily, # 90 tablet, 0 Refills, Maintenance, 10/24/22 10:11:00 EDT, [facility]/pharmacy#0843, 175, cm, 10/09/22 16:51:00 EDT, Height, 93, kg, 01/28/22 14:55:00 EDT, Dry Weight Start Date: 10/24/22 Status: Ordered Metoprolol Tartrate 50 mg oral tablet 1.5 tablet, By Mouth, 2 times a day, # 270 tablet, 1 Refills, Maintenance, 09/01/22 13:28:00 EST, [facility] STORE 63997, 175, cm, 07/17/22 10:33:00 EST, Height, 93, kg, 01/28/22 14:55:00 EDT, Dry Weight Start Date: 09/01/22 Status: Ordered Nicotine 7 mg/24 hour patch 1 patch, Topically, Daily, # 30 patch, 1 Refills, Maintenance, 09/26/22 7:49:00 EDT, Patch, [facility]/pharmacy #[id number], Partial fill upon patient request [...] tablet, 0 Refills, Maintenance, 10/03/22 15:53:00 EDT, [facility]/pharmacy #[id number], 175, cm, 09/17/22 13:59:00 EDT, Height,... Start Date: 10/03/22 Status: Ordered NovoLOG FlexPen 100 units/mL injectable solution See Instructions, INJECT 0-18 UNITS SUBCUTANEOUSLY WITH MEALS FOR SLIDING SCALES, # 15 Unknown, 2 Refills, 11/07/22 0:09:00 EDT, [facility]/pharmacy #[id number], 175, cm, 10/09/22 16:51:00 EDT, Height, 93, kg, 01/28/22 14:55:00 EDT, Dry Weight Start Date: 11/07/22 Status: Ordered Pen [place], 31 G x 5 mm BD Ultra [...] capsule, 2 Refills, Maintenance, 08/07/22 12:55:00EST, [id number], cm, 07/17/22 10:33:00 EST, Height, 93, kg, 01/28/22 14:55:00EDT, Dry Weight Start Date: 08/07/22 Status: Ordered rosuvastatin 20 mg oral tablet 1 tablet, By Mouth, Daily, # 90 tablet, 1 Refills, Maintenance, 05/21/22 13:33:00 EST, [facility] ST[facility] 18069, 175, cm, 05/09/22 11:08:00 EDT, Height, 93, kg, 01/28/22 14:55:00 EDT, Dry Weight Start Date: 05/21/22 Status: Ordered Senna 8.6 mg oral tablet 1 or 2 tablets, By Mouth, Daily at bedtime, PRN, # 60 tablet, Refills 5, Tot. Refills 5, Maintenance, Constipation, 11/03/22 15:04:00 EDT, [id number]t,Partial fill upon patient request if the prescripti... Start Date: 11/03/22 Status: Ordered SEROquel 100 mg oral tablet 100 mg, 1, tablet, By Mouth, 2 times a day, PRN, # 1 tablet, Refills 2, Tot. Refills 2, Maintenance, Anxiety, 09/21/19 10:41:00 EDT, Route to Pharmacy Electronically, [facility]/pharmacy #[id number], 172, cm, 09/05/19 16:17:00 EST, [...] 9 Unknown, 1 Refills, 01/21/22 15:39:00 EDT, [facility]/pharmacy #[id number], 175.2, cm, 12/18/21 14:10:00 EDT, Height... Start Date: 01/21/22 Status: Ordered Trulicity Pen 0.75 mg/0.5 mL subcutaneous solution 0.5 mL = 0.75 mg, Subcutaneous Injection, Every week, # 2.5 mL, 2 Refills, Maintenance, 04/08/22 9:12:00 EDT, Solution, [facility]/pharmacy #[id number], Partial fill upon patient request if the prescription is for a schedule II opioid drug., 175, cm, 04/08/22 8:34... Start Date: 04/08/22 Status: Ordered Ventolin HFA 108 mcg/inh inhalation aerosol with adapter 2 puffs, Inhalation, Every 4 hours, PRN for wheezing, for 180 days, # 1 each, 0 Refills, Acute 03/05/23 16:25:00 EDT, 09/06/22 16:25:00 EST, Aerosol, [facility]/pharmacy #[id number], Partial fill upon patient request [...] 524 weeks therapy with sofosbuvir/weight based ribavirin 76512 inferolateral stent bare metal circumflex 7DR Marissa saucedax;Dr Schwartz 8hyperplatic polyp repeat screening in 2025 9repeat colonoscopy in 5 years Procedures Procedure Date Related Diagnosis Body Site Status MRI of lumbar spine- 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 03/22/21 Completed Echocardiogram ef55-60% inf hypokinesis 08/11/19 Completed Chest [...] at age: 63; entered on: 07/20/20 Sex EKG study * Event Display: EKG Authored Date: * Event Display: EKG Authored Date: * Event Display: EKG Authored Date: Laboratory * Event Display: Non BH Lab Results Authored Date: * Event Display: Laboratory Result Scanned Authored Date: * Event Display: Laboratory Result Scanned Authored Date: US Lower extremity * Event Display: Ultrasound Lower Extremity Authored Date: Patient Care team information Care Team Personnel Name: Jeffrey Mccoy MD Position: [facility] Renal MD Member Role: Lifetime Consulting Physician Address: Address: [address] [place] [address] [facility] [place] [address]- [place] Name: Kelly Butler NP Position: [facility] PCO Associate Professional Member Role: PCP Address: Address: [address] [place] [address]- [place] Name: Kristin Mckenzie Position: [facility] Outreach Member Role: Lifetime Consulting Physician Name: Prieto Tobin RN Position: [facility] RN Member Role: Primary Care Nurse Name: Jonn Hui DO Position: [facility] Renal MD Member Role: Lifetime Consulting Physician Address: Address: [address] [place], [place] [address]E [facility] [place] [address]- Name: Luis Angel Stephen RN Position: [facility] RN Member Role: Primary Care Nurse Name: Tamie Baird RN Position: [facility] RN Member Role: Primary Care Nurse Care Team Related Persons Name: CARLOS A BORDEN Address: home [address] [place] [address] Name: LEVI BORDEN Address: home [address] [place] [address]
--- OUTSIDE RECORDS SUMMARY | 2024-06-01 11:56 | XMS_ITS | Continuity of Care Document ---
Author Organization [facility] Shawn Lazaro lt Address [address] [place] [address]- Care Team Providers Care Lean Engineer Name Role Phone Aylin HICKMAN, Ben Willis Primary Care Physician Encounter [facility] Date(s): 11/11/21 - 12/11/21 [facility] Adult [address] [place] [address]- Allergies, Adverse Reactions, Alerts Substance Reaction Severity [...] tablet, 3 Refills, Maintenance, 09/30/21 12:28:00 EDT, [facility]/pharmacy#[id number], 175.2, cm, 09/20/21 8:36:00 EDT, [...] Refills, Maintenance, 01/23/21 11:08:00 EDT, CR Capsule, [facility]/pharmacy #[id number], 175.3, cm, 01/21/21 12:58:00 EDT, Height, 83.6, kg, 04/23/20 17:46:00EDT, Dry Weight Start Date: 01/23/21 Stop Date: 01/18/22 Status: Ordered cloNIDine 0.2 mg oral tablet 0.2 mg, 1, tablet, By Mouth, 2 times a day, # 60 tablet, Refills 5, Tot. Refills 5, Maintenance, 06/24/21 12:51:00 EST, Route to Pharmacy Electronically, [facility]/pharmacy #[id number], 175.2, cm, 06/07/21 9:51:00 EST, Height, 88.3, kg, 03/12/21 9:16:00 EDT, Dry... Start Date: 06/24/21 Status: Ordered Daily Simone oral tablet 1 tablet, By Mouth, Daily, # 30 tablet, 5 Refills, Maintenance, 07/29/21 13:53:00 EST, Tablet, [facility]/pharmacy #[id number], 1 tablet By Mouth Daily,x30 days, 175.2, cm, 06/07/21 9:51:00 EST, Height, 88.3, kg,03/12/21 9:16:00 EDT, Dry Weight Start Date: 07/29/21 Stop Date: 01/25/22 Status: Ordered docusate sodium 100 mg oral capsule 1 capsule, By Mouth, 2 times a day, PRN NEEDED FOR CONSTIPATION, # 60 capsule, 5 Refills, Maintenance, 06/05/21 15:57:00 EST, [facility]/pharmacy #[id number], 175.2, cm, 05/27/21 11:26:00 EST, Height, 88.3, kg, 03/12/21 9:16:00 EDT, Dry Weight Start Date: 06/05/21 Status: Ordered folic acid 1 mg oral tablet 1, tablet, By Mouth, Daily, # 30 tablet, Refills 5, Tot. Refills 5, Maintenance, 07/25/21 15:59:00 EST, Route to Pharmacy Electronically, [facility]/pharmacy #[id number], 175.2, cm, 06/07/21 9:51:00 EST, [...] tablet, 5 Refills, Maintenance, 06/05/21 15:57:00 EST, [facility]/pharmacy #[id number], 175.2, cm, 05/27/21 11:26:00 EST, Height, 88.3, kg, 03/12/21 9:16:00 EDT, Dry Weight Start Date: 06/05/21 Status: Ordered LaMICtal 100 mg oral tablet 100 mg, 1, tablet, By Mouth, 2 times a day, # 60 tablet, Refills 3, Tot. Refills 3, Maintenance, 01/21/19 11:25:36 EDT, Route to Pharmacy Electronically, [id number], [facility]/pharmacy #[id number] Start Date: 01/21/19 [...] 3 Refills, Maintenance, 09/17/21 10:50:00 EDT, Tablet, [facility]/pharmacy #[id number], Partial fill upon patient request if the prescription is for a schedule II opioid drug., 175.2, cm, 07/31/21 11:20:00 EST, Heigh... Start Date: 09/17/21 Status: Ordered Metoprolol Tartrate 50 mg oral tablet See Instructions, TAKE 1 + 1/2 TABLETS BY MOUTH 2 TIMES A DAY, # 270 tablet, 0 Refills, 06/24/21 10:42:00 EST, [facility]/pharmacy #[id number], 175.2, cm, 06/07/21 9:51:00 EST, Height, 88.3, kg, 03/12/21 9:16:00 EDT, Dry Weight Start Date: 06/24/21 Status: Ordered nicotine 2 mg oral transmucosal lozenge See Instructions, USE 1 LOZENGE UP TO EVERY 1 HOUR NEEDED FOR 10 DAYS, # 162 lozenge, 0 Refills,Maintenance, 12/11/21 9:38:00 EDT, [facility]/pharmacy #[id number], 16, USE 1 LOZENGE UP TO [...] # 15 Unknown, 2 Refills, [facility], 175.2, cm, 05/27/21 11:26:00 EST, Height, 88.3, kg, 03/12/21 9:16:00 EDT, Dry Weight Start Date: 06/04/21 Status: Ordered Pen [place], 31 G x 5 mm BD Ultra [...] 5 Refills, Maintenance, 06/10/21 12:32:00 EST, Capsule, [id number], 175.2, cm, 06/07/21 9:51:00 EST, Height, 88.3, kg, 03/12/21 9:16:00 EDT, Dry Weight Start Date: 06/10/21 Status: Ordered rosuvastatin 20 mg oral tablet 1 tablet, By Mouth, Daily, # 90 tablet, 1 Refills, Maintenance, 08/15/21 14:24:00 EST, [facility]/pharmacy#[id number], 175.2, cm, 07/31/21 11:20:00 EST, Height, 88.3, kg, 03/12/21 9:16:00 EDT, Dry Weight Start Date: 08/15/21 Status: Ordered SEROquel 100 mg oral tablet 100 mg, 1, tablet, By Mouth, 2 times a day, # 60 tablet, Refills 2, Tot. Refills 2, Maintenance, 09/21/19 10:41:00 EDT, [id number], cm, 09/05/19 16:17:00 EST, Height, [...] day, # 8 mL, 0 Refills, Maintenance, 11/29/21 15:58:00 EDT, Suspension, [facility]/pharmacy #[id number], 1 drops Eyes, Both 2 times a day, 175.2, cm, 11/15/21 11:18:00 EDT, Height, 88.3, kg, 03/12/21 9:16:00 EDT, Dry Weight Start Date: 11/29/21 Status: Ordered sodium bicarbonate 650 mg oral [...] # 9 Unknown, 1 Refills, [facility], 175.2, cm, 07/31/21 11:20:00 EST, Height, 88.3, [...] # 30 capsule, 5 Refills, [facility], 175.2, cm, 11/15/21 11:18:00 EDT, Height, 88.3, kg, 03/12/21 9:16:00 EDT, Dry Weight Start Date: 11/17/21 Status: Ordered Problem List Condition Effective Dates Status Health Status Inform ant Bipolar disorder(Confirmed) Active Cervical spondylosis(Confirmed) Active Chronic back pain DJD(Confirmed) Active Glomerulonephritis,mesangial proliferative/fibrillary(Confirmed) 1, 2 Active Chronic renal failure, stage 4 (severe)(Confirmed) Active ASHD; [place] 2012/stent circumfl ex vessel cath;abdelrahman 2018(Confirmed) 3 [...] spondylosis(Confirmed) 7 Active Multiple lung nodules LDCT 2019.2021(Confirmed) Active Obesity(Confirmed) Active Lower extremity pain(Confirmed) Active [...] 524 weeks therapy with sofosbuvir/weight based ribavirin 20050 inferolateral stent bare metal circumflex 7DR Molddoverno [...]
--- OUTSIDE RECORDS SUMMARY | 2024-06-01 11:56 | XMS_ITS | Continuity of Care Document ---
Author Organization [facility] Shawn Lzaaro lt Address [address] [place] [address]- Care Team Providers Care Treer Name Role Phone Aylin HICKMAN, Ben Willis Primary Care Physician [phone] Encounter [facility] Date(s): 10/28/21 - 11/27/21 [facility] Adult [address] [place] [address]- Allergies, Adverse Reactions, Alerts Substance Reaction Severity [...] tablet, 3 Refills, Maintenance, 09/30/21 12:28:00 EDT, [facility]/pharmacy#[id number], 175.2, cm, 09/20/21 8:36:00 EDT, Height, [...] Maintenance, 01/23/21 11:08:00 EDT, CR Capsule, [facility]/pharmacy #[id number], 175.3, cm, 01/21/21 12:58:00 EDT, Height, 83.6, kg, 04/23/20 17:46:00EDT, Dry Weight Start Date: 01/23/21 Stop Date: 01/18/22 Status: Ordered cloNIDine 0.2 mg oral tablet 0.2 mg, 1, tablet, By Mouth, 2 times a day, # 60 tablet, Refills 5, Tot. Refills 5, Maintenance, 06/24/21 12:51:00 EST, Route to Pharmacy Electronically, [facility]/pharmacy #[id number], 175.2, cm, 06/07/21 9:51:00 EST, Height, 88.3, kg, 03/12/21 9:16:00 EDT, Dry... Start Date: 06/24/21 Status: Ordered Daily Simone oral tablet 1 tablet, By Mouth, Daily, # 30 tablet, 5 Refills, Maintenance, 07/29/21 13:53:00 EST, Tablet, [facility]/pharmacy #[id number], 1 tablet By Mouth Daily,x30 days, 175.2, cm, 06/07/21 9:51:00 EST, Height, 88.3, kg,03/12/21 9:16:00 EDT, Dry Weight Start Date: 07/29/21 Stop Date: 01/25/22 Status: Ordered docusate sodium 100 mg oral capsule 1 capsule, By Mouth, 2 times a day, PRN NEEDED FOR CONSTIPATION, # 60 capsule, 5 Refills, Maintenance, 06/05/21 15:57:00 EST, [facility]/pharmacy #[id number], 175.2, cm, 05/27/21 11:26:00 EST, Height, 88.3, kg, 03/12/21 9:16:00 EDT, Dry Weight Start Date: 06/05/21 Status: Ordered folic acid 1 mg oral tablet 1, tablet, By Mouth, Daily, # 30 tablet, Refills 5, Tot. Refills 5, Maintenance, 07/25/21 15:59:00 EST, Route to Pharmacy Electronically, [facility]/pharmacy #[id number], 175.2, cm, 06/07/21 9:51:00 EST, [...] 5 Refills, Maintenance, 06/05/21 15:57:00 EST, [facility]/pharmacy #[id number], 175.2, cm, 05/27/21 11:26:00 EST, Height, 88.3, kg, 03/12/21 9:16:00 EDT, Dry Weight Start Date: 06/05/21 Status: Ordered LaMICtal 100 mg oral tablet 100 mg, 1, tablet, By Mouth, 2 times a day, # 60 tablet, Refills 3, Tot. Refills 3, Maintenance, 01/21/19 11:25:36 EDT, Route to Pharmacy Electronically, [id number], [facility]/pharmacy #[id number] Start Date: 01/21/19 Stop Date: [...] Refills, Maintenance, 09/17/21 10:50:00 EDT, Tablet, [facility]/pharmacy #[id number], Partial fill upon patient request if the prescription is for a schedule II opioid drug., 175.2, cm, 07/31/21 11:20:00 EST, Heigh... Start Date: 09/17/21 Status: Ordered Metoprolol Tartrate 50 mg oral tablet See Instructions, TAKE 1 + 1/2 TABLETS BY MOUTH 2 TIMES A DAY, # 270 tablet, 0 Refills, 06/24/21 10:42:00 EST, [facility]/pharmacy #[id number], 175.2, cm, 06/07/21 9:51:00 EST, Height, 88.3, kg, 03/12/21 9:16:00 EDT, Dry Weight Start Date: 06/24/21 Status: Ordered nicotine 2 mg oral transmucosal lozenge See Instructions, USE 1 LOZENGE UP TO EVERY 1 HOUR NEEDED FOR 10 DAYS, # 162 lozenge, 0 Refills,Maintenance, 11/22/21 14:08:00 EDT, [facility]/pharmacy #[id number], 16, USE 1 LOZENGE UP TO EVERY 1 HOUR NEEDED FOR 10 DAYS, 175.2, cm, 11/15/21 11:18:00 EDT, H... Start Date: 11/22/21 Status: Ordered nitroglycerin 0.4 mg sublingual tablet [...] # 15 Unknown, 2 Refills, [facility], 175.2, cm, 05/27/21 11:26:00 EST, Height, 88.3, kg, 03/12/21 9:16:00 EDT, Dry Weight Start Date: 06/04/21 Status: Ordered Pen [place], 31 G x 5 mm BD Ultra [...] 1 Refills, Maintenance, 08/15/21 14:24:00 EST, [facility]/pharmacy#0843, 175.2, cm, 07/31/21 11:20:00 EST, Height, 88.3, kg, 03/12/21 9:16:00 EDT, Dry Weight Start Date: 08/15/21 Status: Ordered SEROquel 100 mg oral tablet 100 mg, 1, tablet, By Mouth, 2 times a day, # 60 tablet, Refills 2, Tot. Refills 2, Maintenance, 09/21/19 10:41:00 EDT, [id number], cm, 09/05/19 16:17:00 EST, Height, [...] day, # 8 mL, 0 Refills, Maintenance, 11/12/21 16:48:00 EDT, Suspension, [facility]/pharmacy #[id number], 1 drops Eyes, Both 2 times a day, 175.2, cm, 10/23/21 12:47:00 EDT, Height, 88.3, kg, 03/12/21 9:16:00 EDT, Dry Weight Start Date: 11/12/21 Status: Ordered sodium bicarbonate 650 mg oral [...] # 9 Unknown, 1 Refills, [facility], 175.2, cm, 07/31/21 11:20:00 EST, Height, 88.3, [...] # 30 capsule, 5 Refills, [facility], 175.2, cm, 11/15/21 11:18:00 EDT, Height, 88.3, kg, 03/12/21 9:16:00 EDT, Dry Weight Start Date: 11/17/21 Status: Ordered Problem List Condition Effective Dates Status Health Status Inform ant Bipolar disorder(Confirmed) Active Cervical spondylosis(Confirmed) Active Chronic back pain DJD(Confirmed) Active Glomerulonephritis,mesangial proliferative/fibrillary(Confirmed) 1, 2 Active Chronic renal failure, stage 4 (severe)(Confirmed) Active ASHD; [place] 2012/stent circumfl ex vessel [...] 524 weeks therapy with sofosbuvir/weight based ribavirin 67434 inferolateral stent bare metal circumflex 7DR Molddoverno [...]
--- OUTSIDE RECORDS SUMMARY | 2024-06-01 11:56 | XMS_ITS | Continuity of Care Document ---
Author Organization [facility] Shawn Lazaro lt Address [address] [place] [address]- Care Team Providers Care Cnc Laser Operator Name Role Phone Aylin HICKMAN, Ben Willis Primary Care Physician Encounter [facility] Date(s): 05/28/20 - 06/27/20 [facility] Adult [address] [place] [address]- Allergies, Adverse Reactions, Alerts Substance Reaction Severity [...] 10:48:07 EST, Aerosol, Route to Pharmacy Electronically, [id number], [facility]/pharmacy #[id number], 180, cm, 06/17/19 10:36:11 EST, Height Start Date: 06/17/19 Status: Ordered aspirin 81 mg oral delayed release tablet 1 tablet, By Mouth, Daily, # 30 tablet, 11 Refills, Maintenance, 06/26/20 12:19:00 EST, [facility], 175, cm, 06/25/20 16:11:00 EST, Height, 83.6, [...] Refills, Maintenance, 01/02/20 15:47:00 EDT, CR Capsule, [facility]/pharmacy #[id number], 172, cm, 12/14/19 8:02:00 EDT, Height, 97.8, kg, 08/11/19 5:24:00 EST, Dry Weight Start Date: 01/02/20 Stop Date: 12/27/20 Status: Ordered cholecalciferol 2000 intl units oral capsule 1 capsule = 2,000 International_Units, By Mouth, Daily, # 30 capsule, 5 Refills, Maintenance, 05/25/20 11:53:00 EST, Capsule, [facility]/pharmacy #[id number], 175, cm, 05/24/20 12:46:00 EST, Height, 83.6, kg, 04/23/20 17:46:00 EDT, Dry Weight Start Date: 05/25/20 Status: Ordered cloNIDine 0.2 mg oral tablet 0.2 mg, 1, tablet, By Mouth, 2 times a day, # 60 tablet, Refills 2, Tot. Refills 2, Maintenance, 06/22/20 10:52:00 EST, Route to Pharmacy Electronically, [facility]/pharmacy #[id number], 175, cm, 05/24/20 12:46:00 EST, Height, 83.6, kg, 04/23/20 17:46:00 EDT, Dry... Start Date: 06/22/20 Status: Ordered Colace sodium 100 mg oral capsule 100 mg, 1, capsule, By Mouth, 2 times a day, PRN, # 60 capsule, Refills 5, Tot. Refills 5, Maintenance, for constipation, 02/27/20 15:25:00 EDT, Route to Pharmacy Electronically, [facility]/pharmacy #[id number], 172, cm, 12/14/19 8:02:00 EDT, Height, 97.8, kg, 02/... Start Date: 02/27/20 Status: Ordered Crestor 20 mg oral tablet 1 tablet = 20 mg, By Mouth, Daily, # 90 tablet, 3 Refills, Maintenance, 01/02/20 15:46:00 EDT, Tablet, [facility]/pharmacy #[id number], 172, cm, 12/14/19 8:02:00 EDT, Height, 97.8, kg, 08/11/19 5:24:00 EST, Dry Weight Start Date: 01/02/20 Status: Ordered Daily Simone oral tablet 1 tablet, By Mouth, Daily, # 30 tablet, 5 Refills, Maintenance, 03/01/20 14:48:00 EDT, Tablet, [facility]/pharmacy #[id number], 1 tablet By Mouth Daily,x30 days, 172, cm, 12/14/19 8:02:00 EDT, Height, 97.8, kg, 08/11/19 5:24:00 EST, Dry Weight Start Date: 03/01/20 Stop Date: 08/28/20 Status: Ordered folic acid 1 mg oral tablet 1 mg, 1, tablet, By Mouth, Daily, # 30 tablet, Refills 5, Tot. Refills 5, Maintenance, 12/29/19 11:13:00 EDT, Route to Pharmacy Electronically, [facility]/pharmacy #[id number], 172, cm, 12/14/19 8:02:00 EDT, [...] tablet, 5 Refills, Maintenance, 02/27/20 15:23:00 EDT, [facility]/pharmacy #[id number], 172, cm, 12/14/19 8:02:00 EDT, Height, 97.8, kg, 08/11/19 5:24:00 EST, Dry Weight Start Date: 02/27/20 Status: Ordered Golytely - oral powder for reconstitution 240 mL, By Mouth, Daily, bowel instruction, # 4,000 mL, 0 Refills, Maintenance, 06/21/20 16:44:00 EST, REC Powder, [facility]/pharmacy #[id number], Partial fill upon patient request if the prescription is for a schedule II opioid drug., 240 mL By Mouth Daily,Instr... Start Date: 06/21/20 Status: Ordered LaMICtal 100 mg oral tablet 100 mg, 1, tablet, By Mouth, 2 times a day, # 60 tablet, Refills 3, Tot. Refills 3, Maintenance, 01/21/19 11:25:36 EDT, Route to Pharmacy Electronically, [id number], [facility]/pharmacy #[id number] Start Date: 01/21/19 Stop Date: 05/21/19 Status: Ordered latanoprost 0.005% ophthalmic solution 1 drops, Eyes, Both, Daily at bedtime, # 3 mL, 0 Refills, Maintenance, 02/02/19 16:23:39 EDT, OphthSolution, 1 drops Eyes, Both Daily at bedtime Start Date: 02/02/19 Status: Ordered LORazepam 1 mg oral tablet [...] 01/02/20 15:45:00 EDT, Route to Pharmacy Electronically, [facility]/pharmacy #[id number], 172, cm, 12/14/19 8:02:00 EDT, Height, 9... Start Date: 01/02/20 Status: Ordered nicotine 2 mg oral transmucosal lozenge See Instructions, suck, up to q1 hrs 10 daily, # 144 lozenge, 1 Refills, Maintenance, 03/21/20 11:13:00 EDT, [facility]/pharmacy #[id number], suck, up to q1 hrs 10 daily, 172, cm, 03/21/20 11:04:00 EDT, Height, 97.8, kg, 08/11/19 5:24:00 EST, Dry Weight Start Date: 03/21/20 Status: Ordered nicotine 4 mg oral transmucosal lozenge 1 lozenge = 4 mg, By Mouth, Every hour, dispense 2 boxes of 81 count, # 189 lozenge, 1 Refills, Maintenance, 06/19/20 12:59:00 EST, [facility]/pharmacy #[id number], 1 lozenge By Mouth Every hour,Instr:dispense 2 boxes of 81 count, 175, cm, 05/24/20 12:46:00 EST, H... Start Date: 06/19/20 Status: Ordered nitroglycerin 0.4 mg sublingual tablet [...] 2 Refills, Soft Stop, 06/01/20 13:51:00 EST, [facility]/pharmacy #[id number], 175, cm, 05/24/20 12:46:00 EST, Height, 83.6, kg, 04/23/20 17:... Start Date: 06/01/20 Status: Ordered NovoLOG FlexPen 100 units/mL subcutaneous solution See Instructions, INJECT 0-18 UNITS SUBCUTANEOUSLY WITH MEALS FOR SLIDING SCALES, # 15 Unknown, 5 Refills, Soft Stop, 02/01/20 9:13:00 EDT, [facility]/pharmacy #[id number], 172, cm, 12/14/19 8:02:00 EDT, Height, 97.8, kg, 08/11/19 5:24:00 EST, Dry Weight Start Date: 02/01/20 Status: Ordered Pen [place], 31 G x 5 mm BD Ultra [...] 09/21/19 10:41:00 EDT, Route to Pharmacy Electronically, [facility]/pharmacy #[id number], 172, cm, 09/05/19 16:17:00 EST, [...] EST, Tablet, this was previously sent to [facility] pharmacy Start Date: 05/17/19 Stop Date: [...] Active Glomerulonephritis,mesangial proliferative/fibrillary(Confirmed) 1, 2 Active ASHD; [place] 2012/stent circumfl ex vessel cath;abdelrahman 2018(Confirmed) 3 [...] 524 weeks therapy with sofosbuvir/weight based ribavirin 94977 inferolateral stent bare metal circumflex 7DR Marissa [...]
--- OUTSIDE RECORDS SUMMARY | 2024-06-01 11:56 | XMS_ITS | Continuity of Care Document ---
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, Kelly Lopez Primary Care Physician Encounter 05/24/24 - 05/25/[address] [id number] Attending Physician: Not on Staff, Attending MD Referring Physician: Not on Staff, Referring MD Encounter Type: [facility] Allergies, Adverse Reactions, Alerts Substance Criticality Severity [...] virus vaccine, inactivated 04/16/10 Give n SARS-CoV-2(COVID-19)mRNA-LNP vac([id number]) 12/31/23 Recorded SARS-CoV-2(COVID-19)mRNA-LNP vac([id number]) 05/08/23 Recorded tetanus/diphtheria/pertussis, acel(Tdap) 10/15/23 Recorded tetanus/diphtheria/pertussis, acel(Tdap) 07/28/11 Given pneumococcal 20-valent conjugate vaccine 3 05/01/23 Given zoster vaccine, inactivated 02/03/23 Recorded zoster vaccine, inactivated 08/09/19 Recorded [id number] 12y+ bivalent booster vax 05/17/22 Recorded SARS-CoV-2 [...] 12/10/10 Given 1Result Comment[facility]: [id number] 3Result Comment: [id number] 4Admin Note: pt waited 10 mins post inj no adverse reaction noted.j a 5Admin Note: PT WAITED 10 MIN WITH NO ADVERSE REACTION. Medications albuterol 90 mcg/inh inhalation powder 1 puffs, Inhalation, Every 6 hours, PRN Wheezing/Shortness of Breath, # 1 each, 0 Refills, Maintenance, 02/15/24 1:38:00 PM EDT, Powder, [facility]/pharmacy #[id number], Partial fill upon patient request [...] 11:59:00 AM EDT, Route to Pharmacy Electronically, [facility]/pharmacy #[id number], Partial fill upon patient request if the prescription is for a schedule II opioid drug., 168, cm, 02/15/24 13:43:00 EDT, Height Start Date: 03/11/24 Stop Date: 09/07/24 Status: Ordered Quantity: 30.0 Unit: tablet Repeat number: 6 aspirin 81 mg oral delayed release tablet 1 tablet, By Mouth, Daily, # 90 tablet, 1 Refills, Maintenance, 01/25/24 9:53:00 PM EDT, [facility]/pharmacy #[id number], 168, cm, 01/11/24 14:42:00 EDT, [...] 2:32:00 PM EDT, Route to Pharmacy Electronically, [facility]/pharmacy #[id number], Partial fill upon patient request [...] 11:18:00 AM EDT, Route to Pharmacy Electronically, [facility]/pharmacy #[id number], Partial fill upon patient request [...] 0 Refills, Maintenance, 02/15/24 1:39:00 PM EDT, [facility]/pharmacy #[id number], Partial fill upon patient request [...] 02/17/24 7:23:00 AMEDT, Route to Pharmacy Electronically, [facility]/pharmacy #[id number], 168, cm, 02/15/24 13:43:00 EDT, [...] 11:25:36 AM EDT, Route to Pharmacy Electronically, [facility]/pharmacy #[id number] Start Date: 01/21/19 Stop Date: 05/21/19 Status: Ordered Quantity: 60.0 Unit: tablet Repeat number: 4 lisinopril 10 mg oral tablet 10 mg, 1, tablet, By Mouth, Daily, # 90 tablet, Refills 0, Tot. Refills 0, Maintenance, 04/19/24 9:02:00 AM EDT, Route to Pharmacy Electronically, [facility]/pharmacy #[id number], 168, cm, 04/15/24 10:23:00 EDT, [...] 0 Refills, Maintenance, 03/17/24 2:24:00 PM EDT, [facility]/pharmacy #[id number], 168, cm, 03/17/24 9:46:00 EDT, Height Start Date: 03/17/24 Status: Ordered Quantity: 100.0 Unit: tablet Repeat number: 1 nitroglycerin 0.4 mg sublingual tablet See Instructions, DISSOLVE 1 UNDER TONGUE EVERY 5 MINUTES NEEDED FOR CHEST PAIN CALL MD AFTER TAKING 3 TABS IN TOTAL IN A DAY, # 100 tablet, 0 Refills, Maintenance, 10/03/22 3:53:00 PM EDT, [facility]/pharmacy #[id number], 175, cm, 09/17/22 13:59:00 EDT, Height, 93, kg, 01/28/22 14:55:00 EDT, Dry Weight Start Date: 10/03/22 Status: Ordered Quantity: 100.0 Unit: tablet Repeat number: 1 NovoLOG FlexPen 100 units/mL injectable solution See Instructions, INJECT 0-18 UNITS SUBCUTANEOUSLY WITH MEALS FOR SLIDING SCALES, # 15 Unknown, 2 Refills, 01/12/24 2:36:00 PM EDT, [facility]/pharmacy #[id number], MAX DAILY DOSE 54 UNITS, [...] 0 Refills, Maintenance, 02/02/24 3:28:00 PM EDT, [place], [facility]/pharmacy #[id number], Partial fill upon patient request if the prescription is for a schedule II opioid drug., 2 sprays Nares, Both 2 times a day,PRN:nasal/sinus congestion,Instr:Do not use more than twice a day. Do not use for more than 3 days in a row, 168, cm, 02/02/24 14:20:00 EDT, Height Start Date: 02/02/24 Status: Ordered Quantity: 15.0 Unit: mL Repeat number: 1 Pen [place], 31 G x 5 mm BD Ultra [...] 1 Refills, Maintenance, 05/10/24 12:39:00 PM EST, [facility]/pharmacy #[id number], rx resent 05/10/24, 168, cm, [...] 0 Refills, Maintenance, 05/23/24 9:50:00 AM EST, [id number], 168, cm, 04/19/24 14:01:00 EDT, Height Start [...] 524 weeks therapy with sofosbuvir/weight based ribavirin 00652 inferolateral stent bare metal circumflex 7DR Molddoverno [...] Team Personnel Name: Jeffrey Mccoy MD Position: [facility] Renal MD Member Role: Lifetime Consulting Physician Address: [address] [place] [address] [address] [facility] [place] [address]- Telecom: Name: Kelly Butler NP Position: [facility] PCO Associate Professional Member Role: PCP Address: [address] [place] [address]- Telecom: Name: Kristin Mckenzie Position: [facility] Outreach Member Role: Lifetime Consulting Physician Name: Fortunato Sin RN Position: [facility] RN Member Role: Primary Care Nurse Name: Nury Watts RN Position: [facility] RN Member Role: Primary Care Nurse Name: Riky Mena NP Position: [facility] Associate Professional Member Role: Lifetime Consulting Provider Address: [address] [place], [place] [address] [place] [address]- Telecom: Name: Prieto Tobin RN Position: S RN Member Role: Primary Care Nurse Name: Ashleigh Reynoso RN Position: S RN Member Role: Primary Care Nurse Name: Jonn Hui DO Position: [facility] Renal MD Member Role: Lifetime Consulting Physician Address: [address] [place], [place] [address] [address] Telecom: Name: Luis Angel Stephen RN [...] NA Health Plan Information #: 2 Payer: [facility] Member Number: NA Policy Number: NA Group Number: NA
--- OUTSIDE RECORDS SUMMARY | 2024-06-01 11:56 | XMS_ITS | Continuity of Care Document ---
Author Organization [facility] Shawn Lazaro lt Address [address] [place] [address]- Care Team Providers Care Shipping Supervisor Name Role Phone Aylin HICKMAN, Ben Willis Primary Care Physician Encounter [facility] Date(s): 06/21/21 - 07/21/21 [facility] Nando Palominoley Adult [address] [place] [address]- Allergies, Adverse Reactions, Alerts Substance Reaction Severity [...] Refills, Maintenance, 06/26/20 12:19:00 EST, [id number], 175, cm, 06/25/20 16:11:00 EST, Height, 83.6, [...] Refills, Maintenance, 01/23/21 11:08:00 EDT, CR Capsule, [facility]/pharmacy #[id number], 175.3, cm, 01/21/21 12:58:00 EDT, Height, 83.6, kg, 04/23/20 17:46:00EDT, Dry Weight Start Date: 01/23/21 Stop Date: 01/18/22 Status: Ordered cholecalciferol 2000 intl units oral capsule 1 capsule = 2,000 International_Units, By Mouth, Daily, # 30 capsule, 5 Refills, Maintenance, 05/15/21 13:02:00 EST, Capsule, [facility]/pharmacy #[id number], 175.2, cm, 03/18/21 10:48:00 EDT, Height, 88.3, kg, 03/12/21 9:16:00 EDT, Dry Weight Start Date: 05/15/21 Status: Ordered cloNIDine 0.2 mg oral tablet 0.2 mg, 1, tablet, By Mouth, 2 times a day, # 60 tablet, Refills 5, Tot. Refills 5, Maintenance, 06/24/21 12:51:00 EST, Route to Pharmacy Electronically, [facility]/pharmacy #[id number], 175.2, cm, 06/07/21 9:51:00 EST, Height, 88.3, kg, 03/12/21 9:16:00 EDT, Dry... Start Date: 06/24/21 Status: Ordered Daily Simone oral tablet 1 tablet, By Mouth, Daily, # 30 tablet, 5 Refills, Maintenance, 09/19/20 8:25:00 EDT, Tablet, [facility]/pharmacy #[id number], 1 tablet By Mouth Daily,x30 days, 175, cm, 07/20/20 10:29:00 EST, Height, 83.6, kg, 04/23/20 17:46:00 EDT, Dry Weight Start Date: 09/19/20 Stop Date: 03/18/21 Status: Ordered docusate sodium 100 mg oral capsule 1 capsule, By Mouth, 2 times a day, PRN NEEDED FOR CONSTIPATION, # 60 capsule, 5 Refills, Maintenance, 06/05/21 15:57:00 EST, [facility]/pharmacy #[id number], 175.2, cm, 05/27/21 11:26:00 EST, Height, 88.3, kg, 03/12/21 9:16:00 EDT, Dry Weight Start Date: 06/05/21 Status: Ordered folic acid 1 mg oral tablet 1, tablet, By Mouth, Daily, # 30 tablet, Refills 5, Tot. Refills 0, Maintenance, 01/18/21 14:44:00 EDT, Route to Pharmacy Electronically, [id number], 175, cm, 12/24/20 11:20:00 EDT, Height, 83.6, [...] tablet, 5 Refills, Maintenance, 06/05/21 15:57:00 EST, [facility]/pharmacy #[id number], 175.2, cm, 05/27/21 11:26:00 EST, Height, 88.3, kg, 03/12/21 9:16:00 EDT, Dry Weight Start Date: 06/05/21 Status: Ordered LaMICtal 100 mg oral tablet 100 mg, 1, tablet, By Mouth, 2 times a day, # 60 tablet, Refills 3, Tot. Refills 3, Maintenance, 01/21/19 11:25:36 EDT, Route to Pharmacy Electronically, [id number], [facility]/pharmacy #[id number] Start [...] 3 Refills, Maintenance, 06/24/21 16:13:00 EST, Tablet, [facility]/pharmacy #[id number], Partial fill upon patient request if the prescription is for a schedule II opioid drug., 175.2, cm, 06/07/21 9:51:00 EST, Height... Start Date: 06/24/21 Status: Ordered Metoprolol Tartrate 50 mg oral tablet See Instructions, TAKE 1 + 1/2 TABLETS BY MOUTH 2 TIMES A DAY, # 270 tablet, 0 Refills, 06/24/21 10:42:00 EST, [facility]/pharmacy #[id number], 175.2, cm, 06/07/21 9:51:00 EST, Height, 88.3, kg, 03/12/21 9:16:00 EDT, Dry Weight Start Date: 06/24/21 Status: Ordered nicotine 2 mg oral transmucosal lozenge See Instructions, USE 1 LOZENGE UP TO EVERY 1 HOUR NEEDED FOR 10 DAYS, # 162 lozenge, 0 Refills,Maintenance, 07/15/21 11:21:00 EST, [facility]/pharmacy #[id number], 10, USE 1 LOZENGE UP TO [...] SLIDING SCALES, # 15 Unknown, 2 Refills, [id number], 175.2, cm, 05/27/21 11:26:00 EST, Height, 88.3, kg, 03/12/21 9:16:00 EDT, Dry Weight Start Date: 06/04/21 Status: Ordered Pen Rio, 31 G x 5 mm BD Ultra [...] 5 Refills, Maintenance, 06/10/21 12:32:00 EST, Capsule, [facility]/pharmacy #[id number], 175.2, cm, 06/07/21 9:51:00 EST, Height, 88.3, kg, 03/12/21 9:16:00 EDT, Dry Weight Start Date: 06/10/21 Status: Ordered pregabalin 75 mg oral capsule 1 capsule = 75 mg, By Mouth, 2 times a day, # 60 capsule, 5 Refills, Maintenance, 06/07/21 13:14:00EST, Capsule, [facility]/pharmacy #[id number], 175.2, cm, 06/07/21 9:51:00 EST, Height, 88.3, kg, 03/12/21 9:16:00 EDT, Dry Weight Start Date: 06/07/21 Status: Ordered rosuvastatin 20 mg oral tablet 1 tablet, By Mouth, Daily, # 90 tablet, 1 Refills, Maintenance, 01/08/21 14:43:00 EDT, [facility]/pharmacy#[id number], 175, cm, 12/24/20 11:20:00 EDT, Height, 83.6, kg, 04/23/20 17:46:00 EDT, Dry Weight Start Date: 01/08/21 Status: Ordered SEROquel 100 mg oral tablet 100 mg, 1, tablet, By Mouth, 2 times a day, # 60 tablet, Refills 2, Tot. Refills 2, Maintenance, 09/21/19 10:41:00 EDT, Route to Pharmacy Electronically, [facility]/pharmacy #[id number], 172, cm, 09/05/19 16:17:00 EST, Height, [...] Active Glomerulonephritis,mesangial proliferative/fibrillary(Confirmed) 1, 2 Active ASHD; [place] 2012/stent circumfl ex vessel cath;abdelrahman 2018(Confirmed) 3 [...] 524 weeks therapy with sofosbuvir/weight based ribavirin 99329 inferolateral stent bare metal circumflex 7DR Molddoverno [...]
--- OUTSIDE RECORDS SUMMARY | 2024-06-01 11:56 | XMS_ITS | Continuity of Care Document ---
Author Organization [facility] ter Address [address] [place] [id number]- Care Team Providers Care Motor Electrician Name Role Phone Carrie NICOLE, Kelly Lopez Primary Care Physician Encounter [facility] Date(s): 02/25/24 - 02/29/[address] [id number] Discharge Disposition: A-D/C Home Attending Physician: Jessy HICKMAN, Jaiden Admitting Physician: Carrington Salinas MD Referring Physician: Not on Staff, Referring MD Allergies, Adverse Reactions, Alerts Substance Reaction Severity Status Bee Stings Active Immunizations Given and Recorded Vaccine Date Status Refusal Reason SARS-CoV-2(COVID-19)mRNA-LNP vac([id number]) 12/31/23 Recorded SARS-CoV-2(COVID-19)mRNA-LNP vac([id number]) 05/08/23 Recorded tetanus/diphtheria/pertussis, acel(Tdap) 10/15/23 Recorded tetanus/diphtheria/pertussis, [...] 02/03/23 Recorded zoster vaccine, inactivated 08/09/19 Recorded [id number] 12y+ bivalent booster vax 05/17/22 Recorded SARS-CoV-2 [...] adult vaccine 4 12/10/10 Given 1Result Comment: [id number] 2Result Comment: [id number] 3Admin Note: pt waited 10 mins post [...] 02/02/24 15:26:00 EDT, Route to Pharmacy Electronically, [facility]/pharmacy #... Start Date: 02/02/24 Status: Ordered Acetaminophen Tablet 650 mg, Tablet, By Mouth, Every 4 hours, PRN for Pain , Mild, Temperature Greater than 100.5, Routine, 02/25/24 21:59:00 EDT Start Date: 02/25/24 Stop Date: 02/29/24 Status: Discontinued Aerochamber See Instructions, # 1 each, Maintenance, always use with inhaler, 02/02/24 15:25:00 EDT, Supply, 168, cm, 02/02/24 14:20:00 EDT, Height Start Date: 02/02/24 Status: Ordered Albuterol (Eqv-Ventolin HFA) 90 mcg/inh inhalation aerosol 2 puffs, Inhalation, Every 4 hours, PRN cough, SOB, wheeze, # 18 Gm, 0 Refills, Maintenance, 02/02/24 15:25:00 EDT, [facility]/pharmacy #[id number], with dose counter. any albuterol inhaler covered by insurance is fine., 2 puffs Inhalation Every 4 hours,PRN:cough,... Start Date: 02/02/24 Status: Ordered albuterol 90 mcg/inh inhalation powder 1 puffs, Inhalation, Every 6 hours, PRN Wheezing/Shortness of Breath, # 1 each, 0 Refills, Maintenance, 02/15/24 13:38:00 EDT, Powder, [facility]/pharmacy #[id number], Partial fill upon patient request if the prescription is for a schedule II opioid drug., 1 puffs... Start Date: 02/15/24 Status: Ordered amLODIPine 10 mg oral tablet 10 mg, Tablet, By Mouth, 02/29/24 9:00:00 EDT Start Date: 02/29/24 Stop Date: 02/29/24 Status: Completed amLODIPine 10 mg oral tablet 10 mg, By Mouth, Daily, # 30 tablet, Refills 0, Tot. Refills 0, Maintenance, 02/29/24 9:42:00 EDT, Route to Pharmacy Electronically, [facility]/pharmacy #[id number], Partial fill upon patient request if the prescription is for a schedule II opioid drug., 168, cm,... Start Date: 02/29/24 Stop Date: 03/30/24 Status: Ordered aspirin 81 mg oral delayed release tablet 1 tablet, By Mouth, Daily, # 90 tablet, 1 Refills, Maintenance, 01/25/24 21:53:00 EDT, [facility]/pharmacy#[id number], 168, cm, 01/11/24 14:42:00 EDT, Height, 93, [...] day prn cough (Max 600 mg in w87-fpoe period), # 30 capsule, 0 Refills, Maintenance, 02/05/24 12:47:00 EDT, Capsule, [facility]/pharmacy#[id number], Partial fill upon patient request if the [...] 02/29/24 11:18:00 EDT, Route to Pharmacy Electronically, [facility]/pharmacy #[id number], Partial fill upon patient request if the prescriptio... Start Date: 02/29/24 Stop Date: 03/14/24 Status: Ordered D3 50 mcg (2000 intl units) oral capsule 1 capsule, By Mouth, Daily, # 90 capsule, 0 Refills, Maintenance, 12/09/23 14:09:00 EDT, [facility]/pharmacy #[id number], 168, cm, 10/27/23 15:34:00 EDT, Height, [...] 0 Refills, Maintenance, 01/11/24 14:46:00 EDT, Tablet, [facility]/pharmacy #[id number], Partial fill upon patient request if the prescription is for a schedule II opioid drug., 168, cm, 01/11/24 14:42:00 EDT, Height,... Start Date: 01/11/24 Status: Ordered Flonase Allergy Relief 50 mcg/inh nasal spray See Instructions, 1 sprays Daily in each nostril, # 16 Gm, 0 Refills, Maintenance, 02/15/24 13:39:00 EDT, [facility]/pharmacy #[id number], Partial fill upon patient request if the prescription is for a schedule II opioid drug., 168, cm, 02/03/24 10:41:00 EDT, Height Start Date: 02/15/24 Status: Ordered folic acid 1 mg oral tablet 1, tablet, By Mouth, Daily, # 90 tablet, Refills 1, Tot. Refills 1, Maintenance, 02/17/24 7:23:00 EDT, Route to Pharmacy Electronically, [facility]/pharmacy #[id number], 168, cm, 02/15/24 13:43:00 EDT, Height [...] 01/21/19 11:25:36 EDT, Route to Pharmacy Electronically, [id number], [facility]/pharmacy #[id number] Start Date: 01/21/19 Stop [...] tablet, 0 Refills, Maintenance, 10/03/22 15:53:00 EDT, [facility]/pharmacy #[id number], 175, cm, 09/17/22 13:59:00 EDT, Height,... Start Date: 10/03/22 Status: Ordered NovoLOG FlexPen 100 units/mL injectable solution See Instructions, INJECT 0-18 UNITS SUBCUTANEOUSLY WITH MEALS FOR SLIDING SCALES, # 15 Unknown, 2 Refills, 01/12/24 14:36:00 EDT, [facility]/pharmacy #[id number], MAX DAILY DOSE 54 UNITS, 168, [...] mL, 0 Refills, Maintenance, 02/02/24 15:28:00 EDT, [place], [facility]/pharmacy #[id number], Partial fill upon patient... Start Date: 02/02/24 Status: Ordered Pen [place], 31 G x 5 mm BD Ultra [...] Refills, Maintenance, 02/04/24 16:39:00 EDT, [id number], 168, cm, 02/03/24 10:41:00 EDT, Height Start Date: 02/04/24 Status: Ordered senna - oral tablet 2 tablet, By Mouth, Daily at bedtime, PRN for constipation, for 14 days, # 28 tablet, 0 Refills, Acute 03/14/24 11:19:00 EDT, 02/29/24 11:19:00 EDT, Tablet, [id number], Partial fill upon [...] 4, GFR 15-29 ml/min Confirmed Active ASHD; [place] 2012/stent circumflex vessel cath;abdelrahman 2018 3 Confirmed [...] 524 weeks therapy with sofosbuvir/weight based ribavirin 04140 inferolateral stent bare metal circumflex 7DR Molddoverno sx;Dr Schwartz 8hyperplatic polyp repeat screening in 2025 9repeat colonoscopy in 5 years Results Radiology Reports * Exam Date Time Procedure Performing Provider Status 02/27/24 5:40 PM MRI Brain W/O Contrast Adi Cruz; Ollie (Verified) Notes: (MRI Brain W/O Contrast) Reason For Exam: TIA RESULT: MRI Brain W/O Contrast MRI Brain W/O Contrast INDICATION / CLINICAL QUESTION: TIA; Clinical Question(s): Other:; Order Comment: Please see Reference Text for complete list of contraindications Other: TECHNIQUE: Sagittal T1, axial T2, axial FLAIR, axial gradient echo weighted images and axial diffusion weighted images. COMPARISON: CT of head on 02/26/2024. FINDINGS: The ventricles, cistern and sulci are mildly prominent, consistent with mild generalized age-related atrophy. There is no intracranial hemorrhage, tumor or acute infarct. A few small areas of hyperintense T2 and FLAIR signals are seen in the periventricular and subcortical white matters bilaterally, which are nonspecific but may represent chronic small vessels ischemic disease. Please correlate clinically. There are normal flow voids within the major intracranial vessels. Mild mucosal thickening is seen in the left frontal and bilateral ethmoid and maxillary sinuses. IMPRESSION: No acute pathology is seen in the brain parenchyma. Chronic findings as described. WSN: [id number] Ordering Physician: Aaron Whitehead Dictated By: Joey Machado MD Dictated Date/Time: 02/28/24 7:47 am Reviewed By: Joey Machado MD Signed By: Joey Machado MD Signed Date/Time: 02/28/24 7:47 am Transcribed By: AYSHA Transcribed Date/Time: 02/28/24 7:47 am * Exam Date Time Procedure Performing Provider Status 02/26/24 11:[address] Head/Brain W/O Contrast Maday Willoughby; Auth (Verified) Notes: (CT Head/Brain W/O Contrast) Reason For Exam: Frequent syncopal episodes;TIA RESULT: CT Head/Brain W/O Contrast CT Head/Brain W/O Contrast INDICATION: Reason: TIA; Frequent syncopal episodes; Clinical Question(s): Other:; Order Comment: TECHNIQUE: Noncontrast head CT using axial technique and reconstructed in axial and coronal planes.Iterative reconstruction techniques are used to optimize dose and image quality. CTDIvol Head: 45.94 mGy, DLP Head: 827 mGy*cm. COMPARISON: 01/27/2022 FINDINGS: Liquid Compounder view findings, lines and tubes: None. BRAIN AND EXTRA-AXIAL SPACES: No parenchymal hemorrhage, midline shift, or mass effect. Villarreal-white matter differentiation is wellpreserved. No acute infarct. Negative insular ribbon sign. Atherosclerotic vascular calcification of the carotid arteries but negative hyperdense vessel sign. Mild prominence of the ventricles and sulci consistent with parenchymal volume loss. No white matter lesions. No subarachnoid hemorrhage. No subdural or epidural collection. CALVARIUM, SKULL BASE, AND SOFT TISSUES: No fractures or suspicious bony lesions. Mild right maxillary sinus mucosal thickening. Visualized orbits and globes are intact. The extracranial soft tissues are unremarkable. IMPRESSION: No evidence of acute intracranial abnormality. WSN: [id number] Ordering Physician: Aaron Whitehead Dictated By: Odilon Viramontes MD Dictated Date/Time: 02/26/24 11:39 a Reviewed By: Odilon Viramontes MD Signed By: Odilon Viramontes MD Signed Date/Time: 02/26/24 11:39 am Transcribed By: AYSHA Transcribed Date/Time: 02/26/24 11:38 am * Exam Date Time Procedure Performing Provider Status 02/25/24 6:02 PM Chest Portable Murtaza Cardenas; Kristina h (Verified) Notes: (Chest Portable) Reason For Exam: Shortness of Breath RESULT: Chest Portable Chest Portable Reason: Shortness of Breath; Clinical Question(s): CHF COMPARISON: Chest radiograph dated 11/13/2023. FINDINGS: LINES AND TUBES: None. LUNGS AND PLEURA: Clear lungs. Normal pulmonary vascularity. No pleural effusion. No pneumothorax. HEART, MEDIASTINUM AND CINTHYA: Heart is normal in size. Normal mediastinal and hilar contour. BONES AND SOFT TISSUES: No acute abnormality. IMPRESSION: No radiographic evidence of an acute cardiopulmonary process. WSN: [id number] Ordering Physician: Janessa Pak Dictated By: Jonn Leary MD Dictated Date/Time: 02/25/24 6:15 pm Reviewed By: Jonn Leary MD Signed By: Jonn Leary MD Signed Date/Time: 02/25/24 6:15 pm Transcribed By: AYSHA Transcribed Date/Time: 02/25/24 6:14 pm Vital Signs Most recent to oldest [Reference Range]: 1 2 3 Weight 89.1 kg (02/27/24 4:00 AM) Oxygen Saturation [94-100 %] 96 % (02/29/24 8:06 AM) 98 % (02/29/24 4:00 AM) 97 % (02/28/24 9:31 PM) Pulse Rate [55-90 bpm] 86 bpm (02/29/24 8:06 AM) 73 bpm (02/29/24 4:00 AM) 77 bpm (02/28/24 9:31 PM) Blood Pressure [90-138/55-84 mm Hg] 152/71mm Hg *H* (02/29/24 9:48 AM) 167/63mm Hg *H* (02/29/24 8:09 AM) 167/63mm Hg *H* (02/29/24 8:06 AM) Respiratory Rate [16-30 br/min] 18 br/min (02/29/24 8:06 AM) 18 br/min (02/29/24 5:41 AM) 20 br/min (02/29/24 4:00 AM) Temperature [96.8-100.4 DegF] 97.6 DegF (02/29/24 8:06 AM) 97.6 DegF (02/29/24 4:00 AM) 97.9 DegF (02/28/24 9:31 PM) Liters per Minute 2 L/min (02/25/24 5:03 PM) Mode of Delivery (Oxygen) Room air (02/29/24 8:06 AM) Room air (02/29/24 4:00 AM) Room air (02/28/24 9:31 PM) Blood pressure sites Arm, right (02/29/24 4:00 AM) Arm, right (02/28/24 9:31 PM) Arm, left (02/28/24 3:58 PM) Temperature Route Oral (02/29/24 8:06 AM) Oral (02/29/24 4:00 AM) Oral (02/28/24 9:31 PM) Weight Obtained Via Bed scale (02/27/24 4:00 AM) Social History Social History Type Response Smoking Status Former smoker, quit more than 30 days ago; Interested in cessation: No; Other: quit; Tobacco use times per day: prio 1/2-1 ppd; Total pack years: 38; Started at age: 12; Stopped at age: 63; entered on: 07/20/20 Sex Consult note * Bradley Amaay DO: PERFORM, MODIFY, MODIFY, MODIFY, MODIFY, MODIFY, MODIFY, MODIFY, MODIFY, MODIFY, MODIFY, MODIFY, MODIFY, MODIFY, MODIFY, MODIFY Event Display: Consultation Note Authored Date: [id number] Patient: ??BRITTANY BORDEN ? Age:??68 Years?Sex:??Male?:??1955?? 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 He had startedto feel lightheaded Thursday program and called EMS EMS who noted him to be bradycardic to the 30s in sinus rhythm along with hypotensive.?? They started transcutaneous pacing with heart rate and blood pressure.?? He was noted to be hyperkalemic with potassium of 6.3 and creatinine of 3.16. ??He reports the night prior to??admission,??at around 9:30 PM, he had taken??2-2??of his metoprolol pills (150mg) instead of??his Seroquel.?? Otherwise, reports taking medications as directed. ?? He has since been afebrile, hypertensive and satting well on room air.??CBC notable for anemia withhemoglobin 10.5 and hematocrit 32.3.?? Chemistry with potassium of 5.1 and creatinine 2.97. InitialEKG showing sinus bradycardia at a rate of [address] changes.?? Subsequent EKG showing normal sinus rhythm at a rate of 63 bpm with resolution of T wave changes. ?? Home cardiac medications include lisinopril 40 mg daily, diltiazem 180 mg daily, rosuvastatin 20 mgdaily dapagliflozin 10 mg daily, aspirin and metoprolol 75 mg twice daily.?? He is currently on amlodipine 5 mg, aspirin, rosuvastatin. ?? Prior Cardiac Workup: - Stress test (12/04/2022): METS 4.6 METS on modified Cameron protocol.?? Test terminated for shortnessof breath.?? Imaging showed a moderate-sized fixed defect involving the inferior lateral wall segments.?? LVEF 53% at rest and 58% with stress along with hypokinesis. - Echo (08/11/2019): LV normal in size with wall thickness mildly increased.?? LVEF 55 to 60%.?? Inferior wall moderately to severely hypokinetic.?? RV normal in size and function. ?? Review of Systems Negative except as outlined above. Physical Exam Vitals & Measurements T:??98.0?F?? HR:??81??(Peripheral)?? RR:??18?? BP:??162/73?? BP:??161/68(Line)?? SpO2:??96%?? WT:??89.1??kg?? Weight lb/oz: 196 lb 7 oz General: A & O X 3, not in acute distress.?? Cardiac: S1, S2 normal, no murmur or gallop.?? Resp/Chest wall: CTA, breath sounds normal. Abdomen: Soft, non tender, no distension.?? Neuro: No obvious focal deficits.?? Psychiatric: Cooperative, appropriate mood and affect.?? Skin: No rash. Warm to touch Extremities: no pedal edema, no gross deformities noted. Assessment/Plan This is a 68-year-old female with history significant for CAD status post PCI to left circumflex [id number], RCA???PDA in 2019 with moderate residual LAD and OM 2 disease, stage IV CKD, GERD, hypertension, hyperlipidemia, insulin-dependent diabetes who presented on 02/24 for bradycardia in the setting of ESTELA, hyperkalemia. ?? 1. Sinus bradycardia, resolved 2. Hypotension, resolved 3. CAD s/p PCI with known moderate residual disease 4. ESTELA on CKD stage IV 5. IDDM 6. HTN 7. HLD ?? Patient presented with sinus??bradycardia??and hypotension in the setting of??hyperkalemia, ESTELA, acidosis and AV milagros use.?? It is unclear??why he had been on both diltiazem and metoprolol, as he does not have tachyarrhythmias, from what I can gather??in his chart. His HRs on tele since being onthe floor have been consistently above 60 bpm, and his ESTELA is resolving and hyperkalemia has resolved. ??His hemodynamics have also improved.?? His diltiazem and metoprolol had appropriately been held and he had been??started on??amlodipine. Would not resume diltiazem or metoprolol, unless a strongindication arises. Otherwise, can continue with home aspirin and statin. ?? Bradley Amaya, DO PGY-5 Cardiovascular Disease ?? Patient discussed with attending physician, ??Devin. Cardiology will sign off. Please do not hesitate to contact us with any further questions or concerns.?? Allergies Bee Stings Home Medications Acetaminophen: 650 mg = 2 tablet, By Mouth, 3 times a day, PRN (as needed for fever, pain), Do not take more than 6 pills in a 24-hour period Albuterol: 2 puffs, Inhalation, Every 4 hours, PRN (cough, SOB, wheeze) Albuterol: 1 puffs, Inhalation, Every 6 hours, PRN (Wheezing/Shortness of Breath) Aspirin: 1 tablet, By Mouth, Daily Benzonatate: See Instructions, PRN (Cough), 1-2 capsule(s) By Mouth up to 3 times a day prn cough(Max 600 mg in a 24-hour period) Cholecalciferol: 1 capsule, By Mouth, Daily dapagliflozin: 10 mg = 1 tablet, By Mouth, Daily Diltiazem: 1 capsule, By Mouth, Daily Durable Medical Equipment: See Instructions, Use TID DM Type 2 on insulin E11.9 Durable Medical Equipment: See Instructions, Check blood sugars three times a day DM Type 2E11.9 Durable Medical Equipment: See Instructions, Check blood sugars three times a day DM Type 2E11.9 Durable Medical Equipment: See Instructions, always use with inhaler Fluticasone Nasal: See Instructions, 1 sprays Dailyin each nostril Folic Acid: 1 tablet, By Mouth, Daily Insulin Aspart: See Instructions, INJECT 0-18 UNITS SUBCUTANEOUSLY WITH MEALS FOR SLIDING SCALES Lamotrigine: 100 mg = 1 tablet, By Mouth, 2 times a day Lamotrigine: TAKE 1 TABLET BY MOUTH TWICE A DAY Lisinopril: 1 tablet, By Mouth, Daily Lorazepam: 1 mg = 1 tablet, By Mouth, 4 times a day Methylphenidate: TAKE 1 TABLET BY MOUTH THREE TIMES A DAY Metoprolol: 1.5 tablet, By Mouth, 2 times a day Multivitamin: 1 tablet, By Mouth, Daily Nitroglycerin: See Instructions, DISSOLVE 1 UNDER TONGUE EVERY 5 MINUTES NEEDED FOR CHEST PAIN CALL MD AFTER TAKING 3 TABS IN TOTAL IN A DAY Oxymetazoline Nasal: 2 sprays, Nares, Both, 2 times a day, PRN (nasal/sinus congestion), Do not usemore than twice a day. ??Do not use for more than 3 days in a row Quetiapine: 300 mg = 1 tablet, By Mouth, Daily at bedtime Rosuvastatin: 1 tablet, By Mouth, Daily Hospital Medications Medications (24) Active SCHEDULED: (11) Amlodipine 5 mg Tablet (amLODIPine 5 mg oral tablet) ??5 mg, By Mouth, Daily Aspirin 81 mg EC Tablet (aspirin 81 mg oral delayed release tablet) ??81 mg, By Mouth, Daily Folic Acid 1 mg Tablet (folic acid 1 mg oral tablet) ??1 mg, By Mouth, Daily Heparin 5000 units/mL Inj (1 mL) (Heparin Inj) ??5,000 units 1 mL, Subcutaneous Injection, 3 times a day Insulin Lispro 100 units/mL Inj (Insulin LISPRO Sliding Scale) ??2-10 units, Subcutaneous Injection, 3 times a day before meals LamoTRIGINE 100 mg Tablet (LaMICtal 100 mg oral tablet) ??100 mg, By Mouth, 2 times a day Lorazepam 1 mg Tablet (Ativan 1 mg oral tablet) ??1 mg, By Mouth, 4 times a day NaCl 0.9% Flush 3ml (NaCL 0.9% Flush) ??3 mL, IV Push, Every 8 hours Quetiapine 100 mg Tablet (SEROquel 100 mg oral tablet) ??300 mg, By Mouth, Daily at bedtime Remove Patch (Remove Lidocaine Patch) ??1 each, Topically, Daily at bedtime Rosuvastatin 20 mg Tablet (rosuvastatin 20 mg oral tablet) ??20 mg, By Mouth, Daily CONTINUOUS: (0) PRN: (13) Acetaminophen 325 mg Tablet (Acetaminophen Tablet) ??650 mg, By Mouth, Every 4 hours Dextromethorphan-Guaifenesin 20 mg-200 mg/10 mL Liqu UD (Robitussin DM Liquid) ??10 mL, By Mouth, Every 4 hours Dextrose Inj Syringe (Dextrose 50% Inj Syringe (25Gm)) ??12.5 Gm, IV Push Slowly, Every 20 minutes Dextrose Inj Syringe (Dextrose 50% Inj Syringe (25Gm)) ??25 Gm, IV Push Slowly, Every 15 minutes Docusate Sodium 100 mg Capsule (Docusate Sodium Capsule) ??100 mg 1 capsule, By Mouth, 2 times a day Glucagon 1 mg Inj (Glucagon Inj) ??1 mg, Intramuscular, Once Glucose 40% Gel (15 Gm) (Glucose Gel) ??15 Gm, By Mouth, Every 20 minutes Glucose 40% Gel (15 Gm) (Glucose Gel) ??30 Gm, By Mouth, Every 20 minutes Melatonin 3 mg Tablet (Melatonin Tablet) ??3 mg, By Mouth, Daily at bedtime NaCl 0.9% Flush 3ml (NaCL 0.9% Flush) ??3 mL, IV Push, Every 8 hours Polyethylene Glycol 17 Gm Powder (MiraLax Powder) ??17 Gm 1 pack/packet, By Mouth, Daily Senna Tablet ??8.6 mg 1 tablet, By Mouth, 2 times a day Simethicone 80 mg Chewable Tablet (Simethicone Tablet) ??80 mg, Chew, 3 times a day Lab Results Cardiology Labs WBC: 6.3 k/mm3 (02/27/24) RBC:??3.49 m/mm3??Low (02/27/24) Hgb:??10.5 Gm/dL??Low (02/27/24) Hct:??32.3 %??Low (02/27/24) MCV: 92.6 femtoliters (02/27/24) MCH: 30.1 pg (02/27/24) MCHC:??32.5 g/dL??Low (02/27/24) Platelet Count: 166 k/mm3 (02/27/24) RDW-SD: 42.9 femtoliters (02/27/24) Nucleated RBC (Automated): 0 #/100 WBC'S (02/27/24) Abs. Neut: 3.7 k/mm3 (02/27/24) Abs. Lymph: 1.6 k/mm3 (02/27/24) Abs. [place]: 0.6 k/mm3 (02/27/24) Abs. Eo: 0.3 k/mm3 (02/27/24) Abs. Baso: 0 k/mm3 (02/27/24) Neut %: 59.4 % (02/27/24) [place] %: 9 % (02/27/24) Eos %: 5.4 % (02/27/24) Baso %: 0.6 % (02/27/24) Imm Gran: 0.3 % (02/27/24) Abs. Imm Gran: 0 k/mm3 (02/27/24) Sodium: 143 mmol/L (02/27/24) Potassium: 5.1 mmol/L (02/27/24) Chloride:??110 mmol/L??High (02/27/24) Bicarbonate Level: 23 mmol/L (02/27/24) Glucose Level: 85 mg/dL (02/27/24) Hemoglobin A1C (Monitoring):??7.1 %??High (07/17/23) BUN:??41 mg/dL??High (02/27/24) BUN:??52 mg/dL??High (11/24/23) Creatinine-Blood:??2.97 mg/dL??High (02/27/24) Calcium:??8.2 mg/dL??Low (02/27/24) Protein, Total:??5.4 Gm/dL??Low (02/26/24) Albumin:??3.3 Gm/dL??Low (02/26/24) Alkaline Phosphatase: 83 units/L (02/26/24) AST (SGOT): 16 units/L (02/26/24) ALT (SGPT): 20 units/L (02/26/24) Bilirubin, Total: 0.2 mg/dL (02/26/24) Direct Low Density Lipoprotein: 44 mg/dL (11/24/23) TSH: 1.36 uIU/mL (02/25/24) Free T4: 0.92 ng/dL (02/07/24) Diagnostic Impression ECG [id number] * Preliminary * ?? 20:25:12 Ventricular Rate: 63 BPM Atrial Rate: 63 BPM P-R Interval: 192 ms QRS Duration: 90 ms Q-T Interval: 428 ms QTC Calculation(Bazett): 437 ms P [place]: 57 degrees R [place]: -3 degrees T [place]: 79 degrees Normal sinus rhythm Normal ECG When compared with ECG of 25-FEB-2024 15:49, Vent. rate has increased BY 34 BPM Nonspecific T wave abnormality no longer evident in Inferior leads T wave inversion less evident in Lateral leads QT has lengthened ?? Terrell: , ?? ECG 12-Lead * Preliminary * ?? 20:25:12 Please click on pdf link to open report Stress Test NM Myocard Perf SPECT Multi ?? 13:15:00 Summary 1. Myocardial perfusion imaging is abnormal after exercise at poor functional capacity. There is a moderate size fixed defect, involving the inferior lateral wall segments likely reflecting prior scar/infarct. 2. LV function is decreased with an E.F. of 53 % at rest and 58 % with stress and hypokinesis. 3. EKG portion of the stress test is reported separately. ?? Signatures _ _ ?? Signed By: Contributor_system, [employer] Echo Echocardiogram - Complete ?? 09:57:53 Summary The left ventricular size is normal. The left ventricular wall thickness is mildly increased. The LV systolic function is normal . The left ventricular ejection fraction is 55-60 %. The inferior wall is moderately to severely hypokinetic . Left ventricular filling pressures are indeterminate. ?? The left atrium is mildly dilated. ?? The right ventricle is normal in size and function. ?? Comparison Comparison is made to the study of December 04, 2016. There is no definite interval change. ?? Signature ?? Signed By: Mickey HICKMAN, Gabe Lopez Problem List/Past Medical History Ongoing ASHD; [place] 2012/stent circumflex vessel cath;abdelrahman 2018 Cervical spondylosis Chronic back pain DJD CKD (chronic kidney disease) stage 4, GFR 15-29 ml/min Epididymal cyst rt Ex-cigarette smoker Fibrillary glomerulonephritis GERD with esophagitis egd 2019 Gingivitis Glaucoma of both eyes Glomerulonephritis,mesangial proliferative/fibrillary Hepatitis C S/P sofosbuvir/weight based ribavirin in 2016 History of acute myocardial infarction of inferior wall 2012/stent History of alcoholism History of nephrotic syndrome Hyperlipidemia Hypertension Low back pain Low serum vitamin D Lumbar spondylosis LVH (left ventricular hypertrophy) echo Multiple lung nodules Obese class I Persistent proteinuria- SEEING NEPHROLOGY Secondary hyperparathyroidism, renal Tubular adenoma of colon colonoscopy Type 2 diabetes mellitus with diabetic nephropathy Procedure/Surgical History CT of chest-No new or enlarging nodules. Multiple pulmonary nodules measuring up to 5 mm are unchanged. If eligible, consider next interval follow-up to be within the context of a low-dose screening program.: 08/18/22 Electrocardiogram sinus normal qtc: 01/27/22 CT of head and neck nad: 01/27/22 MRI of lumbar spine- Multilevel degenerative changes of the lumbar spine as detailed above, greatest at L4-L5 with moderate central stenosis, and crowding of the left greater than right traversing [id number] roots.: 03/22/21 Colonoscopy: 03/12/21 Esophagogastroduodenoscopy and biopsy: 01/21/21 Holter monitor nil signf: 05/24/20 Radioisotope myocardial perfusion stress study ef52% fixed defect: 04/24/20 EEG ??nad: 04/20/20 Echocardiogram ef55-60% inf hypokinesis: 08/11/19 Radioisotope myocardial perfusion stress study fixed defect as before: 08/11/19 CT of lumbar region djd: 08/10/19 Cardiac catheterisation 3vessel disease/abdelrahman: 04/19/19 Cardiovascular stress test abnormal- large, fixed decter inferior and inferolateral wall. EF 55% atrest, 62% with activity: 02/10/19 EGD esoaghitis: 01/03/19 Ultrasound, abdominal, real time with image documentation; complete: 08/16/18 Ultrasound scan of [place] liver: 12/08/17 Computed tomography, cervical spine; without contrast material: 05/13/17 Ultrasound, abdominal, real time with image documentation; complete: 07/16/16 Magnetic resonance (eg, proton) imaging, spinal canal and contents, lumbar; without contrast material: 06/17/15 Spirometry: 02/03/14 Post PTCA circumflex 2013: 03/13/13 Renal biopsy: 01/18/13 Liver Bopsy 202-gr2 St2 Colonoscopy 2008/repeat 2013 Social History Alcohol Use: Past. Type: Beer. Other: 5 beers day/more. Date Last Used: sober since 07/2022. Previous treatment: Alcoholics Anonymous. Electronic Cigarette/Vaping Electronic Cigarette Use: Never. 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 Highest education level: completed up to 8th grade. Exercise Self assessment: Poor condition. Regular exercise: No. Home/Environment Living situation: Home/Independent. Lives with: Alone. Other: 2003, once. Nutrition/Health Diet: Regular. Caffeine intake amount: low. Other Name: does not drive. Sexual Sexually involved in last 6 months: No. Substance Abuse Use: Past. Type: Cocaine, Heroin. Other: as a young adult. Tobacco Use: Former smoker, quit more than 30 days ago. Other: quit. Tobacco use times per day: prio 1/2-1 ppd. Total pack years: 38. Started at age: 12 Years. Stopped at age: 63 Years. Interested in cessation: No. Family History Father (): Alcoholism; Bipolar disorder Mother: Cancer of breast; Hypertension Brother: Bipolar disorder Brother: Bipolar disorder Sister: Bipolar disorder Pat. Grandfather: Bipolar disorder * Shubham Beltran MD: PERFORM Event Display: Consultation Note Authored Date: Attending Attestation:??I have seen and evaluated this patient. ??I have discussed the case and itsmanagement with Dr. Amaya?and agree with the findings and plan as documented in the note. ?? * Chrissy Peterson MD: MODIFY, MODIFY, PERFORM, MODIFY Event Display: Consult Authored Date: Patient: ??BRITTANY BORDEN ? Age:??68 Years?Sex:??Male?:??1955?? REASON FOR CONSULT: Hyperkalemia, Bradycardia, ESTELA, Concern for BRASH ? 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 ??Brought to the ED via??EMS due to??severe bradycardia.?? Patient refers that??after he showered this morning he started having feeling??of dizziness,??lightheadedness,??stomachache.?? Refers that??the only change to his routine this morning he had smoked 1 cigarette??right after removing his nicotine patch.?? Patient??refers that after symptoms started he went to his appointment??and was then told that he was looking pale and??that he should go to the??nearest emergency department.?? Patient refers feeling concerned??due to the stomach ache which was similar to??the pain he felt??before he required??a prior cardiac??stent. Patient denies any shortness of breath, chest pain,??nausea. ??Refers that about 1 week ago he had a??flulike illness??and was given prednisone by his PCP.?? Has had his??sugars uncontrolled??and believes it is due to the prednisone.?? Has also noticed decrease??in the amount of urination.?? Deniesany dysuria,??back pain, lower extremity swelling.?? Patient refers compliance to his medications??including metoprolol and diltiazem.?? Also refers an increase intake of??high potassium??foods including??bananas and potatoes. ? Review of Systems Const: no fever, no chills HEENT: admits dizziness,??lightheadedness,??blurry vision,??unsteadiness?? Resp: no SOB, no wheezing, no cough CV: no chest pain, no palpitations, no edema, no orthopnea, no syncope GI: Admits??abdominal pain??no n/v, no diarrhea, no constipation, no melena, no hematochezia : no dysuria, no hematuria MSK: no myalgias, no DROM, no back pain Neuro: no paresthesias, no focal weakness?? Skin: no rashes Heme: No easy bruising, no bleeding or clotting tendency ?? 04/14 systems were reviewed and were negative for any positive or negative complaint, except as mentioned above. ? OBJECTIVE:? Home Medications (25) Active acetaminophen 325 mg oral tablet??650 mg = 2 tablet, PRN, By Mouth, 3 times a day Aerochamber??See Instructions Albuterol (Eqv-Ventolin HFA) 90 mcg/inh inhalation aerosol??2 puffs, PRN, Inhalation, Every 4 hours albuterol 90 mcg/inh inhalation powder??1 puffs, PRN, Inhalation, Every 6 hours aspirin 81 mg oral delayed release tablet??1 tablet, By Mouth, Daily Ativan 1 mg oral tablet??1 mg = 1 tablet, By Mouth, 4 times a day benzonatate 100 mg oral capsule??See Instructions, PRN D3 50 mcg (2000 intl units) oral capsule??1 capsule, By Mouth, Daily Daily Simone oral tablet??1 tablet, By Mouth, Daily dapagliflozin 10 mg oral tablet??10 mg = 1 tablet, By Mouth, Daily DilTIAZem (Eqv-Cardizem CD) 180 mg/24 hours oral capsule, extended release??1 capsule, By Mouth, Daily Flonase Allergy Relief 50 mcg/inh nasal spray??See Instructions folic acid 1 mg oral tablet??1 tablet, By Mouth, Daily Freestyle Lite Lancets??See Instructions Freestyle Lite Test Strips??See Instructions LaMICtal 100 mg oral tablet??100 mg = 1 tablet, By Mouth, 2 times a day lisinopril 40 mg oral tablet??1 tablet, By Mouth, Daily methylphenidate 5 mg oral tablet?? Metoprolol Tartrate 50 mg oral tablet??1.5 tablet, By Mouth, 2 times a day nitroglycerin 0.4 mg sublingual tablet??See Instructions NovoLOG FlexPen 100 units/mL injectable solution??See Instructions oxymetazoline 0.05% nasal spray??2 sprays, PRN, Nares, Both, 2 times a day Pen [place], 31 G x 5 mm BD Ultra Fine III??See Instructions rosuvastatin 20 mg oral tablet??1 tablet, By Mouth, Daily SEROquel 300 mg oral tablet??300 mg = 1 tablet, By Mouth, Daily at bedtime ? Vital Signs (last 24 hrs) ?Last Charted Heart Rate Peripheral?L??48bpm ??(FEB 24 18:15) Resp Rate?18 br/min ??(FEB 24:15) SBP?H??162mm Hg ??(FEB 24 18:15) DBP?L??48mm Hg ??(FEB 24 18:15) SpO2?100 % ??(FEB 24:15) ?? Intake/Output? No Data Available ?? Physical exam GENERAL AOX3, NAD NEURO CN 2-12 INTACT, no motor deficit HEENT NC/AT, CARDIO slow rhythm, no murmur RESP CTAx2, ABD +BS, S+D, MSK/SKIN/EXT No edema ?? No fritz HEMODIALYSIS ACCESS No access ? Blood Gas Event Name?? Event Result?? Date/Time?? pH (POC) POC Cartridge 7.22??Critical 02/25/24 16:52:00 pCO2 (POC) POC Cartridge 31.1 mm Hg??Low 02/25/24 16:52:00 pO2 (POC) POC Cartridge 100 mm Hg??High 02/25/24 16:52:00 Estimated Bicarbonate (POC) POC Cart 12.7 mmol/L??Low 02/25/24 16:52:00 % O2 Sat Arterial (POC) POC Cartridge 96 % 02/25/24 16:52:00 pH Venous (POC) POC Cartridge 7.18??Low 02/25/24 15:52:00 pCO2 Venous (POC) POC Cartridge 39.6 mm Hg??Low 02/25/24 15:52:00 pO2 Venous (POC) POC Cartridge 24 mm Hg??Low 02/25/24 15:52:00 Est Bicarbonate (POC) POC Cartridge 14.6 mmol/L??Low 02/25/24 15:52:00 % O2 Sat Venous (POC) POC Cartridge 31 02/25/24 15:52:00 Base Excess (POC) POC Cartridge NEGATIVE 15 02/25/24 16:52:00 Specimen Type - Blood Gas ARTERIAL 02/25/24 16:52:00 ? Hematology Event Name?? Event Result?? Date/Time?? WBC 12.6 k/mm3??High 02/25/24 16:05:00 RBC 3.54 m/mm3??Low 02/25/24 16:05:00 Hgb 10.7 Gm/dL??Low 02/25/24 16:05:00 Hct 33.9 %??Low 02/25/24 16:05:00 MCV 95.8 femtoliters??High 02/25/24 16:05:00 MCH 30.2 pg 02/25/24 16:05:00 MCHC 31.6 g/dL??Low 02/25/24 16:05:00 Platelet Count 239 k/mm3 02/25/24 16:05:00 RDW-SD 44.8 femtoliters 02/25/24 16:05:00 MPV 10.4 femtoliters 02/25/24 16:05:00 Nucleated RBC (Automated) 0 #/100 WBC'S 02/25/24 16:05:00 Abs. NRBC 0 k/mm3 02/25/24 16:05:00 Abs. Neut 9.2 k/mm3??High 02/25/24 16:05:00 Abs. Lymph 2.1 k/mm3 02/25/24 16:05:00 Abs. [place] 0.9 k/mm3 02/25/24 16:05:00 Abs. Eo 0.3 k/mm3 02/25/24 16:05:00 Abs. Baso 0.1 k/mm3 02/25/24 16:05:00 Neut % 73.1 % 02/25/24 16:05:00 Lymph % 16.8 % 02/25/24 16:05:00 [place] % 7.2 % 02/25/24 16:05:00 Eos % 2 % 02/25/24 16:05:00 Baso % 0.4 % 02/25/24 16:05:00 Hemoglobin (POC) POC Cartridge 9.2 Gm/dL??Low 02/25/24 16:52:00 Hematocrit (POC) POC Cartridge 27 %??Low 02/25/24 16:52:00 Imm Gran 0.5 % 02/25/24 16:05:00 Abs. Imm Gran 0.1 k/mm3 02/25/24 16:05:00 ? Blood Bank Event Name?? Event Result?? Date/Time?? Blood Type B Positive 02/25/24 15:58:44 Antibody Screen Negative 02/25/24 15:58:44 ? Chemistry Event Name?? Event Result?? Date/Time?? Sodium 133 mmol/L 02/25/24 16:05:00 Potassium 6.3 mmol/L??Critical 02/25/24 16:05:00 Chloride 106 mmol/L 02/25/24 16:05:00 Bicarbonate Level 14 mmol/L??Low 02/25/24 16:05:00 Anion Gap 13 02/25/24 16:05:00 Sodium (POC) POC Cartridge 133 mmol/L 02/25/24 16:52:00 Potassium (POC) POC Cartridge 5 mmol/L 02/25/24 16:52:00 Glucose Level 121 mg/dL??High 02/25/24 16:05:00 Glucose (POC) POC Cartridge 234??High 02/25/24 16:52:00 Glucose, POC 214 mg/dL??High 02/25/24 19:50:00 BUN 53 mg/dL??High 02/25/24 16:05:00 Creatinine-Blood 3.16 mg/dL??High 02/25/24 16:05:00 Estimated GFR Creatinine 21 ML/MIN/1.73 M2 02/25/24 16:05:00 Ionized Calcium (POC) POC Cartridge 1.36 mmol/L??High 02/25/24 16:52:00 Alkaline Phosphatase 86 units/L 02/25/24 16:05:00 Lipase 96 units/L??High 02/25/24 16:05:00 AST (SGOT) 22 units/L 02/25/24 16:05:00 ALT (SGPT) 23 units/L 02/25/24 16:05:00 Bilirubin, Total 0.2 mg/dL 02/25/24 16:05:00 Lactate 2.6 mmol/L??High 02/25/24 16:05:00 High Sensitivity Troponin (HSTnT) 35 ng/L??High 02/25/24 16:05:00 TSH 1.36 uIU/mL 02/25/24 16:05:00 ? Microbiology Event Name?? Event Result?? Date/Time?? COVID-19 by RT-PCR NEGATIVE 02/25/24 16:19:00 ? POC Results Event Name?? Event Result?? Date/Time?? Results K 6.7 mmol/L 02/25/24 16:15:00 Results pH 7.176 02/25/24 16:15:00 Results PO2 24 mm Hg 02/25/24 16:15:00 ? Medications (3) Active Scheduled: (1) Sodium Zirconium 10 Gm Packet ??10 Gm 1 pack/packet, By Mouth, Once Continuous: (2) D5%W (1000 mL) Cont IV 1,000 mL + Sodium Bicarbonate 8.4% ContIV 150 mEq ??1,000 mL, IV Infusion, 150 mL/hr Insulin R 100 units in 100 mL NaCL 100 units [10 units/hr] + NaCL 0.9% Premixed IV 100 mL ??100 mL,IV Infusion, 10 mL/hr PRN: (0) ? 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 ??Presents to the ED due to severe bradycardia??in the setting of beta-milagros use, hyperkalemia, worsening CKD.?Nephrology consulted due to concerns of BRASH. ?? Acute kidney injury Hyperkalemia Anion gap metabolic acidosis??with??non-anion gap metabolic acidosis??and respiratory compensation ?? Pt presents with severe symptomatic sinus bradycardia, which has now improved. Pt is on metoprolol (denies any changes in dose), has had a recent ESTELA as noted on recent labs from 02/07/2024 where sCrwent up to 3.4, and presented with hyperkalemia.??Pt has received calcium gluconate, insulin and dextrose. Not hypotensive on my evaluation. Is on insulin drip. ESTELA in the setting of recent viral illness. Will trial fluid resuscitation, if renal function does not improve will consider further differentials. Pt also refers decreased stream when urinating, would recommend bladder scan to r/o retention. Hyperkalemia in the setting of ESTELA, which leads to decrease potassium excretion. Recommend one doseof lokelma. Metabolic acidosis in the setting of renal impairment, can further investigate with beta-hydroxybutyrate, LA, CK. ? PLAN: ?? Cardiac monitoring Agree with IV sodium bicarb 10 g??Lokelma p.o. Repeat BMP No urgent??dialysis indicated at the moment I&O's Bladder scan every shift Case discussed with emergency department team ? Patient evaluated and discussed with Dr. Yen. ?? Chrissy Peterson, PGY4 Nephrology Fellow Pager Number [phone]/Available [facility] ?? * Farshad HICKMAN, Lyndon I: PERFORM Event Display: Consult Authored Date: ?? I reviewed the patient's history, examined the patient, and confirmed the above findings as documented by the fellow/resident. I personally formulated the essential elements of the assessment and plan noted above. Dr. Yen?? Admission evaluation note * Benny HICKMAN, Carrington A: MODIFY, PERFORM Event Display: Admission Note Authored Date: Patient: ??BRITTANY BORDEN ? Age:??68 Years?Sex:??Male?:??1955?? 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 The patient was in the day program earlier today and he went outside to smoke a cigarette while he had nicotine patch on when he suddenly felt lightheaded and about to lose consciousness but he did not.?? He also felt weak and a little dizzy therefore, EMS was called and reportedly he was bradycardic down to 30s (sinus bradycardia), and hypotensive with systolic blood pressure in 80s.?? Patient was started by EMS and he was given fentanyl and Versedand was brought to the emergency department for evaluation upon arrival to our facility pulse was 48 and he he was hypertensive with BP of 162/48, afebrile, maintaining saturation at 100% on room air.?? Initial blood work was notable for mild elevation white blood count at 12.6 (was seen earlier this month, chronic anemia with hemoglobin of 10.7, significant hyperkalemia with potassium 6.3 creatinine of 3.16 (kidney function has been worsening, baseline 2.3-3.0 however he had creatinine of 3.76 earlier this month).?? EKG was obtained, reviewed by myself with sinus bradycardia with heart rate of [address] and T wave abnormalities.?? There is no evidence of hyperacute T waves.?? QTc was 496.?? Chest x-ray was obtained, reviewed by myself without acute cardiopulmonary abnormalities.?? Patient was given insulin/dextrose, Lokelma and admitted under medicine for further managementevaluation.?? Upon my evaluation, he was lying comfortably bed without any signs of distress.?? He denies syncopal episode this time however he reported couple syncopal episodes few years ago.?? He also admitted for eating a big bowl of potato and few bananas earlier today. Review of Systems A full review of systems was completed and is otherwise negative except as mentioned in history of present illness. Objective ? Vital Signs?? Temperature: 98.4 DegF (02/25/24 20:00:00) Pulse Rate: 78 bpm (02/25/24 20:00:00) Respiratory Rate: 18 br/min (02/25/24 20:00:00) Systolic Blood Pressure:??161 mm Hg??High (02/25/24 20:46:00) Diastolic Blood Pressure: 68 mm Hg (02/25/24 20:46:00) Systolic Arterial Blood Pressure Line 2: 161 (02/25/24 20:00:00) Diastolic Arterial Blood Pressure Line 2: 68 (02/25/24 20:00:00) Blood pressure sites: Arm, left (02/25/24 20:46:00) Mean Arterial Pressure: 99 mm Hg (02/25/24 20:46:00) Pulse Pressure: 93 mm Hg (02/25/24 20:46:00) Oxygen Saturation: 98 % (02/25/24 20:00:00) Liters per Minute: 2 L/min (02/25/24 17:03:00) Mode of Delivery (Oxygen): Room air (02/25/24 20:00:00) Early Warning Score: 1 (02/25/24 22:22:40) SOFA Calculated: -1 (02/25/24 22:01:33) ? Intake/Output? No Data Available ? Physical Exam General Appearance: The patient is in NAD. Head: atraumatic EENT: MMM, no scleral icterus Cardiovascular: RRR no MRG Respiratory:?? Breath sounds clear to auscultation bilaterally. No wheezing. room air. GI: Soft. Nontender and nondistended. Normal bowel sounds present throughout abdomen. MS:?? No edema or erythema in the lower extremities. Peripheral sensation intact. Skin: warm, dry, no rashes Neuro:?? No slurred speech.?? Patient seen moving their upper and lower extremities independently. Psych: anxious Lines: Peripheral IV in place. Assessment/Plan Diagnoses Acute hyperkalemia ??(E87.5) Anemia ??(D64.9) Anxiety ??(F41.9) Bradycardia ??(R00.1) CKD (chronic kidney disease), stage IV ??(N18.4) Coronary artery disease ??(I25.10) Dyslipidemia ??(E78.5) Essential hypertension ??(I10) History of ST elevation myocardial infarction (STEMI) ??(I25.2) Lightheadedness ??(R42) Mood disorder ??(F39) Stented coronary artery ??(Z95.5) Type 2 diabetes mellitus ??(E11.9) ? Bradycardia (R00.1) ?Grouped with??Lightheadedness (R42) ? Patient was found to have??significant bradycardia down to 20s??as per EMS report. Was started on transcutaneous pacing??prior to the arrival to the hospital. Heart rate now in 60s. Continue??to hold??AV blocking agents (metoprolol and diltiazem Unclear if it is bradycardia secondary to??severe hyperkalemia.??Continue to monitor telemetry. Hyperkalemia has been??addressed.??Repeat lites in the morning. If it is recurrent, he may need??cardiology evaluation. ?? Acute hyperkalemia (E87.5):??Potassium of 6.3. Likely secondary to worsening kidney function and??increase??p.o. intake of??potassium (he had??couple bananas and??baseball of potato). S/p insulin/dextrose,??Lokelma, and??calcium gluconate. Repeat electrolytes. Continue to monitor telemetry. ? CKD (chronic kidney disease), stage IV (N18.4):??Worsening. Creatinine of 3.16 (kidney function has been worsening, baseline 2.3-3.0 however he had creatinine of 3.76 earlier this month) Continue to monitor electrolytes. Avoid nephrotoxins. Renal dose medications. He may need??renal consultation ?? Anemia (D64.9):??At baseline. Likely disease likely secondary to CKD. ?? Dyslipidemia (E78.5):??Resume Crestor. ?? Essential hypertension (I10):??Blood pressure meds are on hold. Lisinopril is on hold for hyperkalemia. Metoprolol and??diltiazem on hold for??bradycardia ? Mood disorder (F39) ?Grouped with??Anxiety (F41.9) ? Continue Seroquel and??as needed??Ativan. ? Type 2 diabetes mellitus (E11.9):??On short acting insulin at home. Continue to monitor [id number] glucose and insulin sliding scale. Hypoglycemia protocol. He is??at risk of having hypoglycemia given worsening kidney function. ?? History of ST elevation myocardial infarction (STEMI) (I25.2) ?Grouped with??Stented coronary artery (Z95.5),??Coronary artery disease (I25.10) ? History of coronary artery disease complicated by STEMI. Resume aspirin and statin. Hold??beta-milagros in the setting of??bradycardia. ?? VTE Prophylaxis:??Subcutaneous heparin ?VTE Prophylaxis Assessment:??VTE Prophylaxis Ordered ?? Discharge Planning:? Code Status:??Full resuscitation ?Order Code Status:??Code Status Ordered ? Histories Allergies Allergies ?(Active and Proposed Allergies Only) Bee Stings? (Severity: Unknown severity, Onset: Unknown) ? Past Medical History/Problem List Active Problems(27) ASHD; [place] 2012/stent circumflex 2012/vessel cath;abdelrahman 2019 Cervical spondylosis Chronic back pain ??DJD CKD (chronic kidney disease) stage 4, GFR 15-29 ml/min Epididymal cyst ??rt Ex-cigarette smoker Fibrillary glomerulonephritis GERD with esophagitis egd 2019 Gingivitis Glaucoma of both eyes Glomerulonephritis,mesangial proliferative/fibrillary Hepatitis C ??S/P sofosbuvir/weight based ribavirin in 2016 History of acute myocardial infarction of inferior wall 2012/stent History of alcoholism History of nephrotic syndrome Hyperlipidemia Hypertension Low back pain Low serum vitamin D Lumbar spondylosis LVH (left ventricular hypertrophy) echo Multiple lung nodules Obese class I Persistent proteinuria- SEEING NEPHROLOGY Secondary hyperparathyroidism, renal Tubular adenoma of colon colonoscopy Type 2 diabetes mellitus with diabetic nephropathy ? Past Surgical History CT of chest-No new or enlarging nodules. Multiple pulmonary nodules measuring up to 5 mm are unchanged. If eligible, consider next interval follow-up to be within the context of a low-dose screening program.: 08/18/22 Electrocardiogram sinus normal qtc: 01/27/22 CT of head and neck nad: 01/27/22 MRI of lumbar spine- Multilevel degenerative changes of the lumbar spine as detailed above, greatest at L4-L5 with moderate central stenosis, and crowding of the left greater than right traversing [id number] roots.: 03/22/21 Colonoscopy: 03/12/21 Esophagogastroduodenoscopy and biopsy: 01/21/21 Holter monitor nil signf: 05/24/20 Radioisotope myocardial perfusion stress study ef52% fixed defect: 04/24/20 EEG ??nad: 04/20/20 Echocardiogram ef55-60% inf hypokinesis: 08/11/19 Radioisotope myocardial perfusion stress study fixed defect as before: 08/11/19 CT of lumbar region djd: 08/10/19 Cardiac catheterisation 3vessel disease/abdelrahman: 04/19/19 Cardiovascular stress test abnormal- large, fixed decter inferior and inferolateral wall. EF 55% atrest, 62% with activity: 02/10/19 EGD esoaghitis: 01/03/19 Ultrasound, abdominal, real time with image documentation; complete: 08/16/18 Ultrasound scan of [place] liver: 12/08/17 Computed tomography, cervical spine; without contrast material: 05/13/17 Ultrasound, abdominal, real time with image documentation; complete: 07/16/16 Magnetic resonance (eg, proton) imaging, spinal canal and contents, lumbar; without contrast material: 06/17/15 Spirometry: 02/03/14 Post PTCA circumflex 2013: 03/13/13 Renal biopsy: 01/18/13 Liver Bopsy 202-gr2 St2 Colonoscopy 2008/repeat 2013 ? Social History Alcohol Details:??Use: Past. ??Type: Beer. ??Other: 5 beers day/more. ??Date Last Used: sober since 07/2022.??Previous treatment: Alcoholics Anonymous. 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 ??Highest education level: completed up to8th grade. Exercise Details:??Self assessment: Poor condition. ??Regular exercise: No. Home/Environment Details:??Living situation: Home/Independent. ??Lives with: Alone. ??Other: ??2004,marriedonce. Nutrition/Health Details:??Diet: Regular. ??Caffeine intake amount: low. Other Details:??Name: does not drive. Sexual Details:??Sexually involved in last 6 months: No. Substance Abuse Details:??Use: Past. ??Type: Cocaine, Heroin. ??Other: as a young adult. Tobacco Details:??Use: Former smoker, quit more than 30 days ago. ??Other: quit. ??Tobacco use times per day: prio 1/2-1 ppd. ??Total pack years: 38. ??Started at age: 12 Years. ??Stopped at age: 63 Years. ??Interested in cessation: No. Electronic Cigarette/Vaping Details:??Electronic Cigarette Use: Never. ? Family History Father??(): Alcoholism; Bipolar disorder Mother: Cancer of breast; Hypertension Brother: Bipolar disorder Brother: Bipolar disorder Sister: Bipolar disorder Pat. Grandfather: Bipolar disorder ? Medications Home Medications Acetaminophen (acetaminophen 325 mg oral tablet)?650?Milligram?2?tablet?By Mouth?3 times a day?as needed?Do not take more than 6 pills in a 24-hour period?as needed for fever, pain Albuterol (Albuterol (Eqv-Ventolin HFA) 90 mcg/inh inhalation aerosol)?2?puff(s)?Inhalation?Every 4 hours?as needed?cough, SOB, wheeze Albuterol (albuterol 90 mcg/inh inhalation powder)?1?puff(s)?Inhalation?Every 6 hours?as needed?Wheezing/Shortness of Breath Aspirin (aspirin 81 mg oral delayed release tablet)?1?tab(s)?By Mouth?Daily Benzonatate (benzonatate 100 mg oral capsule)?See Instructions?as needed?Cough?1-2 capsule(s) By Mouth up to 3 times a day prn cough(Max 600 mg in a 24-hour period) Cholecalciferol (D3 50 mcg (2000 intl units) oral capsule)?1?capsule?By Mouth?Daily dapagliflozin (dapagliflozin 10 mg oral tablet)?1?tab(s)?10?Milligram?By Mouth?Daily Diltiazem (DilTIAZem (Eqv-Cardizem CD) 180 mg/24 hours oral capsule, extended release)?1?capsule?By Mouth?Daily Durable Medical Equipment (Pen [place], 31 G x 5 mm BD Ultra Fine III)?See Instructions?Use TID DM Type 2 on insulin E11.9 Durable Medical Equipment (Freestyle Lite Test Strips)?See Instructions?Check blood sugars three times a day DM Type 2E11.9 Durable Medical Equipment (Freestyle Lite Lancets)?See Instructions?Check blood sugars three times a day DM Type 2E11.9 Durable Medical Equipment (Aerochamber)?See Instructions?always use with inhaler Fluticasone Nasal (Flonase Allergy Relief 50 mcg/inh nasal spray)?See Instructions?1 sprays Dailyin each nostril Folic Acid (folic acid 1 mg oral tablet)?1?tablet?By Mouth?Daily Insulin Aspart (NovoLOG FlexPen 100 units/mL injectable solution)?See Instructions?INJECT 0-18 UNITS SUBCUTANEOUSLY WITH MEALS FOR SLIDING SCALES Lamotrigine (LaMICtal 100 mg oral tablet)?100?Milligram?1?tablet?By Mouth?2 timesa day?for 30?Days Lisinopril (lisinopril 40 mg oral tablet)?1?tab(s)?By Mouth?Daily Lorazepam (Ativan 1 mg oral tablet)?1?tab(s)?1?Milligram?By Mouth?4 times a day Methylphenidate (methylphenidate 5 mg oral tablet)?TAKE 1 TABLET BY MOUTH THREE TIMES A DAY Metoprolol (Metoprolol Tartrate 50 mg oral tablet)?1.5?tab(s)?By Mouth?2 times a day Multivitamin (Daily Simone oral tablet)?1?tab(s)?By Mouth?Daily Nitroglycerin (nitroglycerin 0.4 mg sublingual tablet)?See Instructions?DISSOLVE 1 UNDER TONGUE EVERY 5 MINUTES NEEDED FOR CHEST PAIN CALL MD AFTER TAKING 3 TABS IN TOTAL IN A DAY Oxymetazoline Nasal (oxymetazoline 0.05% nasal spray)?2?spray(s)?Nares, Both?2 times a day?as needed?nasal/sinus congestion?Do not use more than twice a day. ??Do not use for more than 3 days in a row Quetiapine (SEROquel 300 mg oral tablet)?1?tab(s)?300?Milligram?By Mouth?Daily atbedtime Rosuvastatin (rosuvastatin 20 mg oral tablet)?1?tab(s)?By Mouth?Daily ? Results Recent Labs BLOOD BANK Blood Type B Positive ()?? 02/25/2024 15:58 Antibody Screen Negative ()?? 02/25/2024 15:58 ?? BLOOD COUNT & DIFF WBC 12.6 k/mm3 (High)?? 02/25/2024 16:05 RBC 3.54 m/mm3 (Low)?? 02/25/2024 16:05 Hgb 10.7 Gm/dL (Low)?? 02/25/2024 16:05 Hct 33.9 % (Low)?? 02/25/2024 16:05 MCV 95.8 femtoliters (High)?? 02/25/2024 16:05 MCH 30.2 pg ()?? 02/25/2024 16:05 MCHC 31.6 g/dL (Low)?? 02/25/2024 16:05 Platelet Count 239 k/mm3 ()?? 02/25/2024 16:05 RDW-SD 44.8 femtoliters ()?? 02/25/2024 16:05 MPV 10.4 femtoliters ()?? 02/25/2024 16:05 Nucleated RBC (Automated) 0.0 #/100 WBC'S ()?? 02/25/2024 16:05 Abs. NRBC 0.0 k/mm3 ()?? 02/25/2024 16:05 Abs. Neut 9.2 k/mm3 (High)?? 02/25/2024 16:05 Abs. Lymph 2.1 k/mm3 ()?? 02/25/2024 16:05 Abs. [place] 0.9 k/mm3 ()?? 02/25/2024 16:05 Abs. Eo 0.3 k/mm3 ()?? 02/25/2024 16:05 Abs. Baso 0.1 k/mm3 ()?? 02/25/2024 16:05 Neut % 73.1 % ()?? 02/25/2024 16:05 Lymph % 16.8 % ()?? 02/25/2024 16:05 [place] % 7.2 % ()?? 02/25/2024 16:05 Eos % 2.0 % ()?? 02/25/2024 16:05 Baso % 0.4 % ()?? 02/25/2024 16:05 Hemoglobin (POC) POC Cartridge 9.2 Gm/dL (Low)?? 02/25/2024 16:52 Hematocrit (POC) POC Cartridge 27 % (Low)?? 02/25/2024 16:52 Imm Gran 0.5 % ()?? 02/25/2024 16:05 Abs. Imm Gran 0.1 k/mm3 ()?? 02/25/2024 16:05 ?? BLOOD GAS pH (POC) POC Cartridge 7.22 (Critical)?? 02/25/2024 16:52 pCO2 (POC) POC Cartridge 31.1 mm Hg (Low)?? 02/25/2024 16:52 pO2 (POC) POC Cartridge 100 mm Hg (High)?? 02/25/2024 16:52 Estimated Bicarbonate (POC) POC Cart 12.7 mmol/L (Low)?? 02/25/2024 16:52 % O2 Sat Arterial (POC) POC Cartridge 96 % ()?? 02/25/2024 16:52 pH Venous (POC) POC Cartridge 7.18 (Low)?? 02/25/2024 15:52 pCO2 Venous (POC) POC Cartridge 39.6 mm Hg (Low)?? 02/25/2024 15:52 pO2 Venous (POC) POC Cartridge 24 mm Hg (Low)?? 02/25/2024 15:52 Est Bicarbonate (POC) POC Cartridge 14.6 mmol/L (Low)?? 02/25/2024 15:52 % O2 Sat Venous (POC) POC Cartridge 31 ()?? 02/25/2024 15:52 Base Excess (POC) POC Cartridge NEGATIVE 15 ()?? 02/25/2024 16:52 Specimen Type - Blood Gas ARTERIAL ()?? 02/25/2024 16:52 ?? CARDIAC High Sensitivity Troponin (HSTnT) 35 ng/L (High)?? 02/25/2024 16:05 ?? CHEM GENERAL Sodium 133 mmol/L ()?? 02/25/2024 16:05 Potassium 6.3 mmol/L (Critical)?? 02/25/2024 16:05 Chloride 106 mmol/L ()?? 02/25/2024 16:05 Bicarbonate Level 14 mmol/L (Low)?? 02/25/2024 16:05 Anion Gap 13 ()?? 02/25/2024 16:05 Sodium (POC) POC Cartridge 133 mmol/L ()?? 02/25/2024 16:52 Potassium (POC) POC Cartridge 5.0 mmol/L ()?? 02/25/2024 16:52 Glucose Level 121 mg/dL (High)?? 02/25/2024 16:05 Glucose (POC) POC Cartridge 234 (High)?? 02/25/2024 16:52 Glucose, POC 124 mg/dL (High)?? 02/25/2024 22:03 BUN 53 mg/dL (High)?? 02/25/2024 16:05 Creatinine-Blood 3.16 mg/dL (High)?? 02/25/2024 16:05 Estimated GFR Creatinine 21 ML/MIN/1.73 M2 ()?? 02/25/2024 16:05 Ionized Calcium (POC) POC Cartridge 1.36 mmol/L (High)?? 02/25/2024 16:52 Alkaline Phosphatase 86 units/L ()?? 02/25/2024 16:05 Lipase 96 units/L (High)?? 02/25/2024 16:05 AST (SGOT) 22 units/L ()?? 02/25/2024 16:05 ALT (SGPT) 23 units/L ()?? 02/25/2024 16:05 Bilirubin, Total 0.2 mg/dL ()?? 02/25/2024 16:05 Lactate 2.6 mmol/L (High)?? 02/25/2024 16:05 ?? ENDOCRINE/TUMOR MARKER TSH 1.36 uIU/mL ()?? 02/25/2024 16:05 ?? VIROLOGY COVID-19 by RT-PCR NEGATIVE ()?? 02/25/2024 16:19 ? EKG study * Event Display: ECG 12-Lead Authored Date: Please click on pdf link to open report * Event Display: ECG 12-Lead Authored Date: Ventricular Rate: 63 BPM Atrial Rate: 63 BPM P-R Interval: 192 ms QRS Duration: 90 ms Q-T Interval: 428 ms QTC Calculation(Bazett): 437 ms P [place]: 57 degrees R [place]: -3 degrees T [place]: 79 degrees Normal sinus rhythm Normal ECG When compared with ECG of 25-FEB-2024 15:49, Vent. rate has increased BY 34 BPM Nonspecific T wave abnormality no longer evident in Inferior leads T wave inversion less evident in Lateral leads QT has lengthened Confirmed by CHAPO GRECO ([id number]) on 02/29/2024 1:37:01 PM Terrell: CHAPO GRECO * Event Display: ECG 12-Lead Authored Date: Please click on pdf link to open report * Event Display: ECG 12-Lead Authored Date: Ventricular Rate: 29 BPM Atrial Rate: 29 BPM P-R Interval: 170 ms QRS Duration: 84 ms Q-T Interval: 496 ms QTC Calculation(Bazett): 344 ms P [place]: 52 degrees R [place]: 3 degrees T [place]: 50 degrees Marked sinus bradycardia Nonspecific ST and T wave abnormality Abnormal ECG When compared with ECG of 27-JAN-2022 22:56, Vent. rate has decreased BY 35 BPM T wave inversion now evident in Lateral leads QT has shortened Confirmed by BLANCA KEY MD ([id number]) on 02/25/2024 6:18:20 PM Terrell: BLANCA KEY MD Heart * Event Display: Echocardiogram - Complete Authored Date: [id number] Transthoracic Echocardiography Report (TTE) Patient Demographics Patient Name BRITTANY BORDEN Date of Study 02/28/2024 Corporate Gender Male Facility Race .[id number] Ethnicity Date of 1955 Height: 66.14 inches Age 68 year(s) Weight: 196.21 pounds Accession Number [id number] BSA: 1.99 m2 Room Number [id number] BMI: 31.53 kg/m2 Referring Not on Staff Referring Interpreting Tomy HICKMAN,Maryam Physician Physician Charley Walker MD Mental Health Specialist [place] RDCS Sigrid Indications Syncope. Clinical History Alcohol abuse. CKD HTN Diabetes Mellitus. Myocardial infarction. Tobacco use. HLD Study Data Type of Study TTE procedure:Echo Complete-Doppler, Colorflow, M-Mode. Study Date02/28/2024 Start Time: 12:20 PM Study Location: [facility] [place] Study Status: Bedside Patient Status: Routine Technical Quality: Fair due to body habitus. Blood Pressure:154/77 mmHg EKG: Normal sinus rhythm HR: 77 bpm Allergies - No known allergies. 2D Measurements LV Diastolic Dimension: 5.1 cm LV Systolic Dimension: 4 cm LV Septum Diastolic: 1.1 cm LV PW Diastolic: 0.8 cm AO Root Dimension: 3 cm LA Dimension: 4.1 cm LA ESV (BP):39.7 ml LVOT Stroke Volume: 73.71 ml LA ESV Index: 20 ml/m2 Stroke Volume Index37.04 ml/m2 LVOT: 2.2 cm Cardiac Index:2.85 l/min/m2 Ascending Aorta:3.2 cm Doppler Measurements AV Peak Velocity: 128 cm/s MV Peak E-Wave: 84.9 cm/s AV Peak Gradient: 6.55 mmHg MV Peak A-Wave: 109 cm/s MV E/A Ratio: 0.78 LVOT Peak Velocity: 107 cm/s LVOT VTI19.4 cm MV Deceleration Time: 211 msec E' Septal Velocity: 5.98 cm/s PV Peak Velocity: 114 cm/s E' Lateral Velocity: 11.4 cm/s PV Peak Gradient: 5.2 mmHg E/Med E':14.95187 E/Lat E':[id number] Cardiac Anatomy Left Ventricle/Interventricular Septum The left ventricular size is normal. Left ventricular wall thickness is normal. The basal to mid inferior wall is akinetic . The basal to mid inferolateral wall is severely hypokinetic . The left ventricular ejection fraction is 50-55 %. There is no doppler evidence of increased filling pressures. Left Atrium/Interatrial Septum The left atrium is normal in size. Aortic Valve The aortic valve is trileaflet . The aortic valve appears moderately thickened. The aortic valve appears moderately calcified. There is no significant aortic stenosis. There is no significant aortic regurgitation. Mitral Valve The mitral valve appears mildly thickened. There is mild mitral regurgitation. Aorta The ascending aorta and aortic root are normal in size. Right Ventricle The right ventricular size and function appears grossly normal. Right Atrium The right atrium is normal in size. Pulmonic Valve The pulmonic valve is functionally normal. Tricuspid Valve The tricuspid valve is normal in structure and function. There is trace regurgitation. Pumonary Artery An accurate pulmonary artery pressure could not be obtained. Venous Structures The inferior vena cava appears normal. Pericardium/Extracardiac There is no significant pericardial effusion. Summary The left ventricular size is normal. Left ventricular wall thickness is normal. The basal to mid inferior wall is akinetic. The basal to mid inferolateral wall is severely hypokinetic . The left ventricular ejection fraction is 50-55 %. There is no doppler evidence of increased filling pressures. The aortic valve is trileaflet . The aortic valve appears moderately thickened. The aortic valve appears moderately calcified. There is no significant aortic stenosis. There is no significant aortic regurgitation. The right ventricular size and function appears grossly normal. Comparison Comparison is made to the study of August 11, 2019. There is no significant change. Signature * Event Display: Echocardiogram - Complete Authored Date: Cardiology * Event Display: Cardiac Rhythm Strips Authored Date: * Event Display: Cardiac Rhythm Strips Authored Date: * Event Display: Cardiac Rhythm Strips Authored Date: Hospital Progress note * Chrissy Peterson MD: PERFORM Event Display: Progress Note Hospital Authored Date: Patient: ??BRITTANY BORDEN ? Age:??68 Years?Sex:??Male?:??1955?? SUBJECTIVE: Pt evaluated at bedside and found in NAD. ? OBJECTIVE:? Vital Signs (last 24 hrs) ?Last Charted Heart Rate Peripheral?86 bpm ??(FEB 28 08:06) Resp Rate?18 br/min ??(FEB 28 08:06) SBP?H??152mm Hg ??(FEB 28 09:48) DBP?71 mm Hg ??(FEB 28 09:48) SpO2?96 % ??(FEB 28 08:06) ?? Intake/Output? 02/24 21:29 02/28 07:00 02/27 07:00 02/26 07:00 02/25 07:00 ?? 02/28 15:02 02/28 15:02 02/28 06:59 02/27 06:59 02/26 06:59 Intake ? 6041.7 ?0 ? 1730 ? 1020 ? 1940 Output ? 8450 ?0 ?800 ? 2000 ? 3250 Net Total ?-2408.3 ?0 ?930 ? -980 ?-1310 ? Urine Count ?5 ?0 ?4 ?1 ?0 ? Physical exam GENERAL AOX3, NAD NEURO CN 2-12 INTACT, no motor deficit HEENT NC/AT, CARDIO RRR RESP CTAx2, ABD +BS, S+D, MSK/SKIN/EXT No edema ?? No fritz HEMODIALYSIS ACCESS No access ? Last CBC, CMP & Coagulation?? WBC: 6.4 k/mm3 (02/28/24) Hgb:??11 Gm/dL??Low (02/28/24) Hct:??33.5 %??Low (02/28/24) Platelet Count: 177 k/mm3 (02/28/24) Sodium: 139 mmol/L (02/29/24) Potassium: 5.1 mmol/L (02/29/24) Chloride:??109 mmol/L??High (02/29/24) Bicarbonate Level:??20 mmol/L??Low (02/29/24) Anion Gap: 10 (02/29/24) Glucose Level: 98 mg/dL (02/29/24) Glucose, POC: 96 mg/dL (02/29/24) BUN:??40 mg/dL??High (02/29/24) Creatinine-Blood:??2.99 mg/dL??High (02/29/24) Estimated GFR Creatinine: 22 ML/MIN/1.73 M2 (02/29/24) Calcium: 8.7 mg/dL (02/29/24) Magnesium: 2 mg/dL (02/28/24) ? Medications (26) Active Scheduled: (13) Amlodipine 10 mg Tablet ??10 mg, By Mouth, Daily Aspirin 81 mg EC Tablet ??81 mg, By Mouth, Daily Folic Acid 1 mg Tablet ??1 mg, By Mouth, Daily Heparin 5000 units/mL Inj (1 mL) ??5,000 units 1 mL, Subcutaneous Injection, 3 times a day Insulin Lispro 100 units/mL Inj ??2-10 units, Subcutaneous Injection, 3 times a day before meals LamoTRIGINE 100 mg Tablet ??100 mg, By Mouth, 2 times a day Lorazepam 1 mg Tablet ??1 mg, By Mouth, 4 times a day NaCl 0.9% Flush 3ml ??3 mL, IV Push, Every 8 hours Nicotine 14 mg / 24 hour Patch ??14 mg, Topically, Daily Quetiapine 100 mg Tablet ??300 mg, By Mouth, Daily at bedtime Remove Patch ??1 each, Topically, Daily at bedtime Remove Patch ??1 each, Topically, Daily Rosuvastatin 20 mg Tablet ??20 mg, By Mouth, Daily Continuous: (0) PRN: (13) Acetaminophen 325 mg Tablet ??650 mg, By Mouth, Every 4 hours Dextromethorphan-Guaifenesin 20 mg-200 mg/10 mL Liqu UD ??10 mL, By Mouth, Every 4 hours Dextrose Inj Syringe ??12.5 Gm, IV Push Slowly, Every 20 minutes Dextrose Inj Syringe ??25 Gm, IV Push Slowly, Every 15 minutes Docusate Sodium 100 mg Capsule ??100 mg 1 capsule, By Mouth, 2 times a day Glucagon 1 mg Inj ??1 mg, Intramuscular, Once Glucose 40% Gel (15 Gm) ??15 Gm, By Mouth, Every 20 minutes Glucose 40% Gel (15 Gm) ??30 Gm, By Mouth, Every 20 minutes Melatonin 3 mg Tablet ??3 mg, By Mouth, Daily at bedtime NaCl 0.9% Flush 3ml ??3 mL, IV Push, Every 8 hours Polyethylene Glycol 17 Gm Powder ??17 Gm 1 pack/packet, By Mouth, Daily Senna Tablet ??8.6 mg 1 tablet, By Mouth, 2 times a day Simethicone 80 mg Chewable Tablet ??80 mg, Chew, 3 times a day ? 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 ??Presents to the ED due to severe bradycardia??in the setting of beta-milagros use, hyperkalemia, worsening CKD.?Nephrology consulted due to concerns of BRASH. ?? Acute kidney injury/CKD Hyperkalemia Resolved. ESTELA in the setting of viral illness, likely pre-renal as it has improved with fluids. With good UOP. Hyperkalemia resolved along with the acid- base disturbance as well. ? PLAN:? Outpatient follow up with Nephrology Can consider 1 weekly dose of lokelma for potassium control Dialysis not indicated at the moment ?? Patient evaluated and discussed with Dr. Yen. ?? Chrissy Peterson, PGY4 Nephrology Fellow Pager Number [phone]/Available [employer] * Field Ashli CALVO: PERFORM, SIGN, VERIFY Event Display: Progress Note Hospital Authored Date: [id number] Patient: BRITTANY BORDEN Age: 68 years Sex: Male : 1955 Associated Diagnoses: None Author: Ashli Sanchez RN Findings Problem Related to Alteration in Cardiac Function (new) : Alteration in Cardiac Function/new 02/29/2024 9:00 EDT Alteration in Cardiac Status Related to Other: Presyncope Goals & Outcomes, Cardiac Status Pt will resume/maintain adequate cardiac output, Pt will resume/maintain adequate hemodynamic status, Pt will resume/maintain adequate respiratory function, Pt will resume/maintain intact neuro function, Pt will maintain adequate GI/ function appropriate for pt, Pt will maintain adequate nutrition status, Pt/caregiver will state understanding of diagnosis, Pt/caregiver will state strategies to reduce risk factors Cardiac Interventions Implemented Assess/monitor cardiac status, Assess/monitor neuro status, Assess/monitor respiratory status BH Goals/Interventions, Cardiac Yes Cardiac, Problem Start 02/25/2024 23:58 Reviewed Plan with, Cardiac Status Patient Patient Progression, Cardiac Status Patient progressing according to plan . Nursing Data Vital Signs : VITAL SIGNS SECTION 02/29/2024 8:06 EDT Temperature 97.6 DegF Temperature Route Oral Pulse Rate 86 bpm Respiratory Rate 18 br/min Systolic Blood Pressure 167 mm Hg H Diastolic Blood Pressure 63 mm Hg Oxygen Saturation 96 % Mode of Delivery (Oxygen) Room air . Evaluation Pt alert and oriented x4. SR with HR in the 70s-80s on tele. Pt has no complaints of chest pain, palpitations or shortness of breath at this time. Pt states he hasnt had a bowel movement since being admitted on 02/24. PRN docusate and senna administered per pt request. Repeat BP taken and documentedin interactive flowsheets after am med pass per MD request. See biophysical for detailed assessment. Bed in lowest and locked position with call light within reach.. * Brandan Nogueira RN: PERFORM, SIGN, VERIFY Event Display: Progress Note Hospital Authored Date: Patient: BRITTANY BORDEN Age: 68 years Sex: Male : 1955 Associated Diagnoses: None Author: Brandan Nogueira RN Findings Narrative/Incidental pt A&Ox4 denies chest pain or SOB but is very anxious. pt is NSR on tele and VSS on room air. pt is independent, skin intact, has no edema, and lung sounds are clear. pt has call leo in reach, see CIS for full assessment. . Note * Nhung Posadas RN: PERFORM Event Display: Discharge/Transfer Note Hospital Authored Date: [id number] Nursing Discharge Note Entered On: 02/29/2024 12:21 EDT Performed On: 02/29/2024 12:20 EDT by Nhung Posadas RN Nursing Discharge Note 2 Discharge Time : 02/29/2024 12:20 EDT Discharge Level of Care at Discharge : Home/[facility] Patient Left Unit Via : Wheelchair Patient Accompanied Off Unit with : Responsible adult DC Instructions Provided & Signed by Pt : Yes Patient Understands D/C Instructions : Yes Patient Instructions Discharge Signed : Yes Discharge Comments : IV dc'd with the tip intact Did Pt have Specialty Bed or Wound Vac : No Nhung Posadas RN - 02/29/2024 12:20 EDT * Jessy HICKMAN, Jaiden: MODIFY, PERFORM, MODIFY Event Display: Discharge/Transfer Note Hospital Authored Date: [id number] Patient: ??SUHA, EDWARD ? Age:??68 Years?Sex:??Male?:??1955?? Patient Information Discharge Location: Primary Care Physician: Kelly Butler NP Admit Date/Time: 02/25/24 21:29 Discharge Disposition Discharge Disposition: ?? Discharge Diagnosis ?? Bradycardia (R00.1) Acute hyperkalemia (E87.5) Lightheadedness (R42) CKD (chronic kidney disease), stage IV (N18.4) Essential hypertension (I10) Dyslipidemia (E78.5) History of ST elevation myocardial infarction (STEMI) (I25.2) Coronary artery disease (I25.10) Stented coronary artery (Z95.5) Type 2 diabetes mellitus (E11.9) Anxiety (F41.9) Mood disorder (F39) Anemia (D64.9) _ Discharge Medications Acetaminophen (acetaminophen 325 mg oral tablet)?650?Milligram?2?tablet?By Mouth?3 times a day?as needed?Do not take more than 6 pills in a 24-hour period?as needed for fever, pain Albuterol (Albuterol (Eqv-Ventolin HFA) 90 mcg/inh inhalation aerosol)?2?puff(s)?Inhalation?Every 4 hours?as needed?cough, SOB, wheeze Albuterol (albuterol 90 mcg/inh inhalation powder)?1?puff(s)?Inhalation?Every 6 hours?as needed?Wheezing/Shortness of Breath Amlodipine (amLODIPine 10 mg oral tablet)?10?Milligram?By Mouth?Daily?for 30?Days Aspirin (aspirin 81 mg oral delayed release tablet)?1?tab(s)?By Mouth?Daily Benzonatate (benzonatate 100 mg oral capsule)?See Instructions?as needed?Cough?1-2 capsule(s) By Mouth up to 3 times a day prn cough(Max 600 mg in a 24-hour period) Cholecalciferol (D3 50 mcg (2000 intl units) oral capsule)?1?capsule?By Mouth?Daily dapagliflozin (dapagliflozin 10 mg oral tablet)?1?tab(s)?10?Milligram?By Mouth?Daily Docusate (Colace sodium 100 mg oral capsule)?100?Milligram?1?capsule?By Mouth?2 times a day?as needed?for 14?Days?for constipation Durable Medical Equipment (Pen [place], 31 G x 5 mm BD Ultra Fine III)?See Instructions?Use TID DM Type 2 on insulin E11.9 Durable Medical Equipment (Freestyle Lite Test Strips)?See Instructions?Check blood sugars three times a day DM Type 2E11.9 Durable Medical Equipment (Freestyle Lite Lancets)?See Instructions?Check blood sugars three times a day DM Type 2E11.9 Durable Medical Equipment (Aerochamber)?See Instructions?always use with inhaler Durable Medical Equipment (Blood Pressure Monitor)?See Instructions?For Home blood pressure measurement Fluticasone Nasal (Flonase Allergy Relief 50 mcg/inh nasal spray)?See Instructions?1 sprays Dailyin each nostril Folic Acid (folic acid 1 mg oral tablet)?1?tablet?By Mouth?Daily Insulin Aspart (NovoLOG FlexPen 100 units/mL injectable solution)?See Instructions?INJECT 0-18 UNITS SUBCUTANEOUSLY WITH MEALS FOR SLIDING SCALES Lamotrigine (LaMICtal 100 mg oral tablet)?100?Milligram?1?tablet?By Mouth?2 timesa day?for 30?Days Lamotrigine (lamotrigine 100 mg oral tablet)?TAKE 1 TABLET BY MOUTH TWICE A DAY Lorazepam (Ativan 1 mg oral tablet)?1?tab(s)?1?Milligram?By Mouth?4 times a day Methylphenidate (methylphenidate 5 mg oral tablet)?TAKE 1 TABLET BY MOUTH THREE TIMES A DAY Miscellaneous Rx (Basic Metabolic Profile)?See Instructions?Basic Metabolic Profile Multivitamin (Daily Simone oral tablet)?1?tab(s)?By Mouth?Daily Nitroglycerin (nitroglycerin 0.4 mg sublingual tablet)?See Instructions?DISSOLVE 1 UNDER TONGUE EVERY 5 MINUTES NEEDED FOR CHEST PAIN CALL MD AFTER TAKING 3 TABS IN TOTAL IN A DAY Oxymetazoline Nasal (oxymetazoline 0.05% nasal spray)?2?spray(s)?Nares, Both?2 times a day?as needed?nasal/sinus congestion?Do not use more than twice a day. ??Do not use for more than 3 days in a row Quetiapine (SEROquel 300 mg oral tablet)?1?tab(s)?300?Milligram?By Mouth?Daily atbedtime Rosuvastatin (rosuvastatin 20 mg oral tablet)?1?tab(s)?By Mouth?Daily Senna (senna - oral tablet)?2?tab(s)?By Mouth?Daily at bedtime?as needed?for constipation?for 14?Days ? Quality Measures Tobacco Use Treatment:? Medications Started Amlodipine 10 mg p.o. daily Medications Discontinued Metoprolol Diltiazem Lisinopril Doses Changed None PCP Follow-Up/Heads-Up Patient will need??close follow-up for addition of??antihypertensive agents, as needed??to optimizeblood pressure control Future Appointments 2023 9:10 AM EDT ?? With: Carrie RIVERA, Kelly Lopez Where: [address] [address]- Status: Pending Thursday 1:45 PM EDT ?? With: Zev RIVERA, Chapo Syed Where: [facility] [address] [place] [address]- Status: Pending Hospital Course ?? 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 His electrolyte abnormalities were corrected appropriately and it now appears that his sinus bradycardia may??have been a consequence of medication error at home bydouble dosing on metoprolol and double AV ryder blockade with metoprolol and diltiazem. ?? Presyncope Bradycardia (R00.1) Lightheadedness (R42) ?? Based on patient history and presenting timeline, it appears that??his presentation was consistent with presyncope likely??cardiogenic in??nature with??sinus bradycardia??with heart rate in 20s??on initial presentation. Since then his heart rate has improved appropriately while holding??home metoprolol and diltiazem. There is no clear history of atrial fibrillation in the past and it appears that diltiazem??was probably??an antihypertensive.?? Given that he mentioned about strokelike symptoms in the recent past,??MRI to rule out posterior stroke???resulted negative for??stroke. ??No??plan??02/26 Continue??to hold??AV blocking agents (metoprolol and diltiazem), also as per recommendation by cardiology He was monitored on telemetry,??with no significant??symptomatic bradycardia or high-grade block Hyperkalemia has been??addressed, still high normal,??K restricted diet has been started for his??advanced CKD echocardiogram-good systolic function with no wall motion abnormalities???EF 50 to 55%,?? basal to mid inferior wall is akinetic, basal to mid inferolateral wall is severely hypokinetic No further recommendations per cardiology other than??avoiding AV ryder blocking agents Amlodipine was recommended to be added??for hypertension,??has been increased to 10 mg p.o. daily,??will need further addition of agents??(no JESUSITA or ARB's, given his??advanced CKD??and hyperkalemia ?? Acute hyperkalemia (E87.5):??Potassium improved to 5 ?? Likely secondary to worsening kidney function and??increase??p.o. intake of??potassium (he had??couple bananas and??baseball of potato). S/p insulin/dextrose,??Lokelma, and??calcium gluconate. Repeat electrolytes. Continue to monitor telemetry. Remains high normal,??low K diet Will need to be monitored closely as an outpatient, for as needed Lokelma,? CKD (chronic kidney disease), stage IV (N18.4):??Improving Mixed acid base disorder with HAGMA, NAGMA ?? Acidosis improved appropriately with sodium bicarb infusion, appreciate renal recommendations Continue to monitor electrolytes. Avoid nephrotoxins. Follow up on renal recs d/c sodium bicarb for now ?? Anemia (D64.9):??At baseline. Likely disease likely secondary to CKD. ?? Dyslipidemia (E78.5):??Resume Crestor. ?? Essential hypertension (I10):?? Lisinopril on hold for hyperkalemia.?? Will be holding on discharge??due to high normal??potassium??and admission with hyperkalemia Metoprolol and??diltiazem held for??bradycardia??and discontinued on discharge Increase amlodipine to 10 mg daily, due to??suboptimally controlled blood pressure, to continue on discharge ? Mood disorder (F39) ?Grouped with??Anxiety (F41.9) ? Continue Seroquel and??as needed??Ativan. ? Type 2 diabetes mellitus (E11.9):??On short acting insulin at home. Continue to monitor [id number] glucose and insulin sliding scale. Hypoglycemia protocol. He is??at risk of having hypoglycemia given worsening kidney function. Defer to outpatient management??for optimization of blood glucose control ?? History of ST elevation myocardial infarction (STEMI) (I25.2) ?Grouped with??Stented coronary artery (Z95.5),??Coronary artery disease (I25.10) ? History of coronary artery disease complicated by STEMI. Resume aspirin and statin. No AV ryder blockers in the setting of??bradycardia. ?? VTE Prophylaxis:??Subcutaneous heparin??given as an inpatient ? Disposition:??Home with outpatient follow-up with primary care provider??and cardiology ?? Above documentation was done using P[employer] dictation software, please do not hesitate to contact the author for clarification of any unintentional errors, should it be needed. ? Objective Assessment and Plan Discharge Planning:? Vital Signs?? Temperature: 97.6 DegF (02/29/24 08:06:00) Temperature Route: Oral (02/29/24 08:06:00) Pulse Rate: 86 bpm (02/29/24 08:06:00) Respiratory Rate: 18 br/min (02/29/24 08:06:00) Systolic Blood Pressure:??167 mm Hg??High (02/29/24 08:09:00) Diastolic Blood Pressure: 63 mm Hg (02/29/24 08:09:00) Blood pressure sites: Arm, right (02/29/24 04:00:00) Mean Arterial Pressure: 104 mm Hg (02/28/24 21:31:00) Pulse Pressure: 90 mm Hg (02/29/24 04:00:00) Oxygen Saturation: 96 % (02/29/24 08:06:00) Mode of Delivery (Oxygen): Room air (02/29/24 08:06:00) Early Warning Score: 2 (02/29/24 08:37:43) ? . Physical Exam General: Alert,??oriented x3, in no acute distress, fully communicative, speaking in??full sentences HEENT Normocephalic. Pupils are equal, round and reactive to light. Extraocular muscles intact. Oropharynx clear, oral mucosa??moist Neck: Supple, Full range of motion. Trachea midline. No JVD or bruits. Respiratory: CTA BL, no rhonchi/wheezes Cardiovascular: S1-2 regular, no MRG Gastrointestinal: Abdomen soft, non-tender, non-distended. Normal bowel sounds. ??No guarding, rigidity, rebound, no hepatosplenomegaly Extremities: No edema, cyanosis or clubbing.?? Extremities warm Neurologic: AAOx3, Cranial nerves II-XII grossly intact. Speech normal. ??Motor 5/5,??sensory exam intact, deep tendon reflexes +2 bilaterally. Flexor plantar response, Moves all extremities spontaneously. Skin: No rashes or lesions. No petechiae or purpura.? [facility]???Dr. Beltran Pending Results Urinalysis w/hold for Urine Culture ordered on 02/25/2024 Post Discharge Care Activity: ??Patient had lab, as tolerated ?? Code Status: ??Full Resuscitation ?? Condition: ??Fair ?? Prognosis: ??Fair ?? Discharge ?02/29/24 9:41:00 EDT Discharge Prescriptions ?ePrescribed, 02/29/24 9:41:00 EDT Home Health Face to Face ^[facility] Results Discharge Labs BLOOD BANK Blood Type B Positive ()?? 02/25/2024 15:58 Antibody Screen Negative ()?? 02/25/2024 15:58 ?? BLOOD COUNT & DIFF WBC 6.4 k/mm3 ()?? 02/28/2024 09:25 RBC 3.62 m/mm3 (Low)?? 02/28/2024 09:25 Hgb 11.0 Gm/dL (Low)?? 02/28/2024 09:25 Hct 33.5 % (Low)?? 02/28/2024 09:25 MCV 92.5 femtoliters ()?? 02/28/2024 09:25 MCH 30.4 pg ()?? 02/28/2024 09:25 MCHC 32.8 g/dL (Low)?? 02/28/2024 09:25 Platelet Count 177 k/mm3 ()?? 02/28/2024 09:25 RDW-SD 42.4 femtoliters ()?? 02/28/2024 09:25 MPV 10.1 femtoliters ()?? 02/28/2024 09:25 Nucleated RBC (Automated) 0.0 #/100 WBC'S ()?? 02/28/2024 09:25 Abs. NRBC 0.0 k/mm3 ()?? 02/28/2024 09:25 Abs. Neut 3.7 k/mm3 ()?? 02/27/2024 06:59 Abs. Lymph 1.6 k/mm3 ()?? 02/27/2024 06:59 Abs. Hans[place] 0.6 k/mm3 ()?? 02/27/2024 06:59 Abs. Eo 0.3 k/mm3 ()?? 02/27/2024 06:59 Abs. Baso 0.0 k/mm3 ()?? 02/27/2024 06:59 Neut % 59.4 % ()?? 02/27/2024 06:59 Lymph % 25.3 % ()?? 02/27/2024 06:59 [place] % 9.0 % ()?? 02/27/2024 06:59 Eos % 5.4 % ()?? 02/27/2024 06:59 Baso % 0.6 % ()?? 02/27/2024 06:59 Hemoglobin (POC) POC Cartridge 9.2 Gm/dL (Low)?? 02/25/2024 16:52 Hematocrit (POC) POC Cartridge 27 % (Low)?? 02/25/2024 16:52 Imm Gran 0.3 % ()?? 02/27/2024 06:59 Abs. Imm Gran 0.0 k/mm3 ()?? 02/27/2024 06:59 ?? BLOOD GAS pH (POC) POC Cartridge 7.22 (Critical)?? 02/25/2024 16:52 pCO2 (POC) POC Cartridge 31.1 mm Hg (Low)?? 02/25/2024 16:52 pO2 (POC) POC Cartridge 100 mm Hg (High)?? 02/25/2024 16:52 Estimated Bicarbonate (POC) POC Cart 12.7 mmol/L (Low)?? 02/25/2024 16:52 % O2 Sat Arterial (POC) POC Cartridge 96 % ()?? 02/25/2024 16:52 pH Venous (POC) POC Cartridge 7.18 (Low)?? 02/25/2024 15:52 pCO2 Venous (POC) POC Cartridge 39.6 mm Hg (Low)?? 02/25/2024 15:52 pO2 Venous (POC) POC Cartridge 24 mm Hg (Low)?? 02/25/2024 15:52 Est Bicarbonate (POC) POC Cartridge 14.6 mmol/L (Low)?? 02/25/2024 15:52 % O2 Sat Venous (POC) POC Cartridge 31 ()?? 02/25/2024 15:52 Base Excess (POC) POC Cartridge NEGATIVE 15 ()?? 02/25/2024 16:52 Specimen Type - Blood Gas ARTERIAL ()?? 02/25/2024 16:52 ?? CARDIAC High Sensitivity Troponin (HSTnT) 45 ng/L (High)?? 02/26/2024 11:03 ? CHEM GENERAL Sodium 139 mmol/L ()?? 02/29/2024 07:14 Potassium 5.1 mmol/L ()?? 02/29/2024 07:14 Chloride 109 mmol/L (High)?? 02/29/2024 07:14 Bicarbonate Level 20 mmol/L (Low)?? 02/29/2024 07:14 Anion Gap 10 ()?? 02/29/2024 07:14 Sodium (POC) POC Cartridge 133 mmol/L ()?? 02/25/2024 16:52 Potassium (POC) POC Cartridge 5.0 mmol/L ()?? 02/25/2024 16:52 Glucose Level 98 mg/dL ()?? 02/29/2024 07:14 Glucose (POC) POC Cartridge 234 (High)?? 02/25/2024 16:52 Glucose, POC 96 mg/dL ()?? 02/29/2024 08:05 BUN 40 mg/dL (High)?? 02/29/2024 07:14 Creatinine-Blood 2.99 mg/dL (High)?? 02/29/2024 07:14 Estimated GFR Creatinine 22 ML/MIN/1.73 M2 ()?? 02/29/2024 07:14 Calcium 8.7 mg/dL ()?? 02/29/2024 07:14 Ionized Calcium (POC) POC Cartridge 1.36 mmol/L (High)?? 02/25/2024 16:52 Magnesium 2.0 mg/dL ()?? 02/28/2024 09:25 Protein, Total 5.4 Gm/dL (Low)?? 02/26/2024 07:52 Albumin 3.3 Gm/dL (Low)?? 02/26/2024 07:52 AG Ratio 1.6 ()?? 02/26/2024 07:52 Alkaline Phosphatase 83 units/L ()?? 02/26/2024 07:52 Lipase 96 units/L (High)?? 02/25/2024 16:05 AST (SGOT) 16 units/L ()?? 02/26/2024 07:52 ALT (SGPT) 20 units/L ()?? 02/26/2024 07:52 Bilirubin, Total 0.2 mg/dL ()?? 02/26/2024 07:52 Lactate 1.9 mmol/L ()?? 02/26/2024 11:03 ? ENDOCRINE/TUMOR MARKER TSH 1.36 uIU/mL ()?? 02/25/2024 16:05 ? HEME OTHER Hold Lavender Top SPECIMEN DISCARDED AFTER 24 HOURS. ()?? 02/29/2024 07:14 Hold Blue Top SPECIMEN DISCARDED AFTER 4 HOURS. ()?? 02/25/2024 22:24 ?? MISC. CHEMISTRY Hold Gel Top SPECIMEN DISCARDED AFTER 1 WEEK ()?? 02/25/2024 22:24 ? VIROLOGY COVID-19 by RT-PCR NEGATIVE ()?? 02/25/2024 16:19 ? 43_ minutes spent on discharge * Nhung Posadas RN: PERFORM Event Display: Patient Education/Instruction Authored Date: [id number] Inpatient Adult Discharge Instructions. [place] [id number] Name: BRITTANY BORDEN : 1955?? Visit: 02/25/2024 21:29?? Current Date: 02/29/2024 10:45 ?? Account: [id number]?? Inpatient Adult Discharge Instructions We would like to thank you for allowing us to assist you with your healthcare needs. The following includes patient education materials and information regarding your injury/illness. Our entire staffstrives to provide an excellent experience for our patients and their families. PLEASE ENSURE YOU FOLLOW-UP PER THE INSTRUCTIONS BELOW! ?? YOUR OPINION IS IMPORTANT TO US! Please complete the survey you may receive by mail or email. Your feedback will be used to make improvements to the healthcare experiences of our patients and their families. Surveys are administered by [email or web address] ?? If further treatment with your primary care physician or another doctor is recommended, it is important for you to keep the appointment. Call your primary care physician or return to the Emergency Department immediately if your condition worsens, fails to improve, or new symptoms develop. If you need to find a doctor, you can call [facility] Link for a referral at [phone] or toll free at [phone] or log in to [email or web address].. ?? [facility], in keeping with [facility] guidance, no longer requires face masks [...] medical provider or home test kit. ?? You can view and manage your care through the patient portal or by using a health care [place] of your choosing. [employer] is a website that allows you to securely view your medical information including your hospital discharge summary, office visit summaries, medications and follow-up visits. You can also request appointments, renew medications, and request access to your medical information using a health care [place] of your choosing, or just ask a question. You can enroll at [email or web address] or register during your next office visit. You have been discharged from [facility], Patient Care Unit: S3??. If you have any questions regarding these instructions, including results of studies pending, afteryou leave, please call us and we will be happy to assist you 26/01. [facility] Your Care Team Attending Physician Jaiden Jiménez MD?? Consulting Providers Jaiden Jiménez MD?? Discharging Providers Jaiden Jiménez MD Reason for Your Visit see lisa level 1 sheet?? Your Diagnosis Acute hyperkalemia Anemia Anxiety Bradycardia Bradycardia CKD (chronic kidney disease), stage IV Coronary artery disease Dyslipidemia Essential hypertension History of ST elevation myocardial infarction (STEMI) Lightheadedness Mood disorder Stented coronary artery Type 2 diabetes mellitus Tests Performed Below is a partial list of the tests performed during your hospitalization. You may have had other tests and procedures not included in this list. Please discuss all test results with your provider. ABG POC CARTRIDGE Alk Phos ALT AST BASE EXCESS POC CARTRIDGE Basic Metabolic Panel BUN CALCIUM IONIZED POC CART CBC CBC w/ Differential Comprehensive Metabolic Panel COVID-19 (Novel Coronavirus), Rapid PCR Creatinine Electrolytes Glucose Level GLUCOSE POC GLUCOSE POC CARTRIDGE HEMATOCRIT POC CARTRIDGE HEMOGLOBIN POC CARTRIDGE High??Sensitivity??Troponin T HOLD BLUE TUBE HOLD GEL TUBE HOLD LAVENDER TUBE Lactate Level Lactic Acid Level Lipase Magnesium Level Potassium Level POTASSIUM POC CARTRIDGE SODIUM POC CARTRIDGE Total Bilirubin Troponin T, High Sensitivity TSH with T4 Reflex (Adults Only) Type and Screen VBG POC CARTRIDGE CT Head/Brain W/O Contrast MRI Brain W/O Contrast XR Chest Portable ABG (Lab) POC Cartridge (ABG POC CARTRIDGE)?? ALT?? AST?? Alk Phos?? BUN?? Base Excess (Lab) POC Cartridge (BASE EXCESS POC CARTRIDGE)?? Basic Metabolic Panel?? Bilirubin Total (Total Bilirubin)?? CBC?? CBC w/ Differential?? COVID-19 (Novel Coronavirus), Rapid PCR?? CT Head/Brain W/O Contrast?? Comprehensive Metabolic Panel?? Creatinine?? Electrolytes?? Glucose (Lab) POC Cartridge (GLUCOSE POC CARTRIDGE)?? Glucose Level?? Glucose POC?? Hematocrit (Lab) POC Cartridge (HEMATOCRIT POC CARTRIDGE)?? Hemoglobin (Lab) POC Cartridge (HEMOGLOBIN POC CARTRIDGE)?? High??Sensitivity??Troponin T (Troponin T, High Sensitivity)?? Hold Blue Top Tube (HOLD BLUE TUBE)?? Hold Gel Top Tube (HOLD GEL TUBE)?? Hold Lavender Top Tube (HOLD LAVENDER TUBE)?? Ionized Calcium(POC) POC Cartridge (CALCIUM IONIZED POC CART)?? Lactic Acid Level?? Lipase?? MRI Brain W/O Contrast?? Magnesium Level?? Potassium (Lab) POC Cartridge (POTASSIUM POC CARTRIDGE)?? Potassium Level?? Sodium (Lab) POC Cartridge (SODIUM POC CARTRIDGE)?? TSH with T4 Reflex (Adults Only)?? Type and Screen?? Urinalysis w/hold for Urine Culture?? VBG (Lab) POC Cartridge (VBG POC CARTRIDGE)?? Chest Portable (XR Chest Portable)?? Primary Care Provider Carrie Kelly RIVERA? Advance Directive Health Care Proxy on File Yes - Health Care Proxy Yes - MOLST Discharge Vitals Temperature: 97.6 DegF Weight: 89.1 kg Pulse Rate: 86 bpm ?? Respiratory Rate: 18 br/min ?? Systolic Blood Pressure:??152 mm Hg??High ?? Diastolic Blood Pressure: 71 mm Hg ?? Oxygen Saturation: 96 % ?? Studies Pending All studies ordered during this hospital stay have been completed unless listed below. Please discuss all pending results with your provider listed above in these instructions. ?? Urinalysis w/hold for Urine Culture?? What to do next Instructions From Your Doctor ?? Orders??:Patient had lab, as tolerated Status: ??Full Resuscitation :Fair :Fair? 02/29/24 9:41:00 EDT?? Prescriptions??, ??02/29/24 9:41:00 EDT?? Scheduled Follow-Up Appointments 2023 9:10 AM EDT ?? With: Kelly Butler NP Where: [address] [address]- Status: Pending Thursday 1:45 PM EDT ?? With: Zev RIVERA, Chapo Syed Where: [facility] [address] [place] [id number]- Status: Pending You Need to Schedule the Following Appointments Follow Up with??Kelly Butler NP Where: ?? Discharge Medications BRITTANY BORDEN :1955 Visit Date:02/25/2024 Medications: Please continue your medications until treatment is completed or stopped by your provider. Medications not listed below should be discontinued. Discuss any questions related to medications with your provider. What How Much When Why Instructions Next Dose New Amlodipine (amLODIPine 10 mg oral tablet) 10 Milligram Oral Daily Duration: 30 Days Pickup at [facility]/pharmacy #[id number] 8/27 AM New Durable Medical Equipment (Blood Pressure Monitor) See instructions For Home blood pressure measurement ?? Pickup at [facility]/pharmacy #[id number] New Miscellaneous Rx (Basic Metabolic Profile) See instructions Basic Metabolic Profile ?? Printed Prescription Unchanged Acetaminophen (acetaminophen 325 mg oral tablet) 2 tab(s) Oral 3 times a day as needed for as needed for fever, pain Do not take more than 6 pills in a 24-hour period ?? as needed Unchanged Albuterol (Albuterol (Eqv-Ventolin HFA) 90 mcg/ inh inhalation aerosol) 2 puff(s) Inhalation Every 4 hours as needed for cough, SOB, wheeze as needed Unchanged Albuterol (albuterol 90 mcg/ inh inhalation powder) 1 puff(s) Inhalation Every 6 hours as needed for Wheezing/Shortness of Breath Acute sinusitis as needed Unchanged Aspirin (aspirin 81 mg oral delayed release tablet) 1 tab(s) Oral Daily 03/01 AM Unchanged Benzonatate (benzonatate 100 mg oral capsule) See instructions 1-2 capsule(s) By Mouth up to 3 times a day prn cough (Max 600 mg in a 24-hour period), As needed for Cough ?? as needed Unchanged Cholecalciferol (D3 50 mcg (2000 intl units) oral capsule) 1 capsule Oral Daily 03/01 Unchanged dapagliflozin (dapagliflozin 10 mg oral tablet) 1 tab(s) Oral Daily 03/01 Unchanged Folic Acid (folic acid 1 mg oral tablet) 1 tab(s) Oral Daily 03/01 Unchanged Insulin Aspart (NovoLOG FlexPen 100 units/ mL injectable solution) See instructions INJECT 0-18 UNITS SUBCUTANEOUSLY WITH MEALS FOR SLIDING SCALES ?? follow home sliding scale with meals Unchanged Lamotrigine (LaMICtal 100 mg oral tablet) 1 tab(s) Oral Twice a day Duration: 30 Days 02/28 PM Unchanged Lorazepam (Ativan 1 mg oral tablet) 1 tab(s) Oral 4 times a day as needed Unchanged Methylphenidate (methylphenidate 5 mg oral tablet) TAKE 1 TABLET BY MOUTH THREE TIMES A DAY ?? 02/28 2pm Unchanged Multivitamin (Daily Simone oral tablet) 1 tab(s) Oral Daily 03/01 AM Unchanged Nitroglycerin (nitroglycerin 0.4 mg sublingual tablet) See instructions DISSOLVE 1 UNDER TONGUE EVERY 5 MINUTES NEEDED FOR CHEST PAIN CALL MD AFTER TAKING 3 TABS IN TOTAL IN A DAY ?? as needed Unchanged Oxymetazoline Nasal (oxymetazoline 0.05% nasal spray) 2 spray(s) Nares, Both Twice a day as needed for nasal/sinus congestion Do not use more than twice a day. ??Do not use for more than 3 days in a row ?? as needed Unchanged Quetiapine (SEROquel 300 mg oral tablet) 1 tab(s) Oral Daily at Bedtime Bedtime Unchanged Rosuvastatin (rosuvastatin 20 mg oral tablet) 1 tab(s) Oral Daily 8/27 AM Pharmacy Information [id number]: [address], [place] [phone] ?? What How Much When Comments Stop Taking Diltiazem (DilTIAZem (Eqv-Cardizem CD) 180 mg/ 24 hours oral capsule, extended release) 1 capsule Oral Daily Stop Taking Lisinopril (lisinopril 40 mg oral tablet) 1 tab(s) Oral Daily Stop Taking Metoprolol (Metoprolol Tartrate 50 mg oral tablet) 1.5 tab(s) Oral Twice a day Prescription Given During Visit Amlodipine (amLODIPine 10 mg oral tablet) - 10 mg, By Mouth, Daily, # 30 tablet, 0 Refills, [facility]/pharmacy #[id number], [address] [place] [phone]?? Durable Medical Equipment (Blood Pressure Monitor) - , # 1 each, For Home blood pressure measurement, [facility]/pharmacy #[id number], [address] [place] [phone]?? Miscellaneous Rx (Basic Metabolic Profile) - , # 1 each, 0 Refills, Basic Metabolic Profile?? Laboratory Results Below is a partial list of the most recent Laboratory test results done prior to this discharge. You may have had other tests and procedures not included in this list. Please discuss all test resultswith your provider. ABG POC CARTRIDGE (02/25/2024) ???pH (POC) POC Cartridge - 7.22???pCO2 (POC) POC Cartridge - 31.1 mm Hg???pO2 (POC) POC Cartridge - 100 mm Hg???Estimated Bicarbonate (POC) POC Cart - 12.7 mmol/L???% O2 Sat Arterial (POC) POC Cartridge - 96 %???Specimen Type - Blood Gas - ARTERIAL Alk Phos (02/25/2024) ???Alkaline Phosphatase - 86 units/L ALT (02/25/2024) ???ALT (SGPT) - 23 units/L AST (02/25/2024) ???AST (SGOT) - 22 units/L BASE EXCESS POC CARTRIDGE (02/25/2024) ???Base Excess (POC) POC Cartridge - NEGATIVE 15 Basic Metabolic Panel (02/29/2024) ???Sodium - 139 mmol/L???Potassium - 5.1 mmol/L???Chloride - 109 mmol/L???Bicarbonate Level - 20 mmol/L???Anion Gap - 10???Glucose Level - 98 mg/dL???BUN - 40 mg/dL???Creatinine-Blood - 2.99 mg/dL???Estimated GFR Creatinine - 22 ML/MIN/1.73 M2???Calcium - 8.7 mg/dL BUN (02/25/2024) ???BUN - 53 mg/dL CALCIUM IONIZED POC CART (02/25/2024) ???Ionized Calcium (POC) POC Cartridge - 1.36 mmol/L CBC (02/28/2024) ???WBC - 6.4 k/mm3???RBC - 3.62 m/mm3???Hgb - 11.0 Gm/dL???Hct - 33.5 %???MCV - 92.5 femtoliters???MCH - 30.4 pg???MCHC - 32.8 g/dL???Platelet Count - 177 k/mm3???RDW-SD - 42.4 femtoliters???MPV - 10.1 femtoliters???Nucleated RBC (Automated) - 0.0 #/100 WBC'S???Abs. NRBC - 0.0 k/mm3 CBC w/ Differential (02/27/2024) ???WBC - 6.3 k/mm3???RBC - 3.49 m/mm3???Hgb - 10.5 Gm/dL???Hct - 32.3 %???MCV - 92.6 femtoliters???MCH - 30.1 pg???MCHC - 32.5 g/dL???Platelet Count - 166 k/mm3???RDW-SD - 42.9 femtoliters???MPV - 10.5 femtoliters???Nucleated RBC (Automated) - 0.0 #/100 WBC'S???Abs. NRBC - 0.0 k/mm3???Abs. Neut - 3.7 k/mm3???Abs. Lymph - 1.6 k/mm3???Abs. [place] - 0.6 k/mm3???Abs. Eo - 0.3 k/mm3???Abs. Baso - 0.0 k/mm3???Neut % - 59.4 %???Lymph % - 25.3 %???[place] % - 9.0 %???Eos % - 5.4 %???Baso % - 0.6 %???Imm Gran - 0.3 %???Abs. Imm Gran - 0.0 k/mm3 Comprehensive Metabolic Panel (02/26/2024) ???Sodium - 142 mmol/L???Potassium - 4.8 mmol/L???Chloride - 107 mmol/L???Bicarbonate Level - 25 mmol/L???Anion Gap - 10???Glucose Level - 122 mg/dL???BUN - 42 mg/dL???Creatinine-Blood - 2.91 mg/dL???Estimated GFR Creatinine - 23 ML/MIN/1.73 M2???Calcium - 8.7 mg/dL???Protein, Total - 5.4 Gm/dL???Albumin - 3.3 Gm/dL???AG Ratio - 1.6???Alkaline Phosphatase - 83 units/L???AST (SGOT) - 16 units/L???ALT (SGPT) - 20 units/L???Bilirubin, Total - 0.2 mg/dL COVID-19 (Novel Coronavirus), Rapid PCR (02/25/2024) ???COVID-19 by RT-PCR - NEGATIVE Creatinine (02/25/2024) ???Creatinine-Blood - 3.16 mg/dL???Estimated GFR Creatinine - 21 ML/MIN/1.73 M2 Electrolytes (02/25/2024) ???Sodium - 133 mmol/L???Potassium - 6.3 mmol/L???Chloride - 106 mmol/L???Bicarbonate Level - 14 mmol/L???Anion Gap - 13 Glucose Level (02/25/2024) ???Glucose Level - 121 mg/dL GLUCOSE POC (02/29/2024) ???Glucose, POC - 96 mg/dL GLUCOSE POC CARTRIDGE (02/25/2024) ???Glucose (POC) POC Cartridge - 234 HEMATOCRIT POC CARTRIDGE (02/25/2024) ???Hematocrit (POC) POC Cartridge - 27 % HEMOGLOBIN POC CARTRIDGE (02/25/2024) ???Hemoglobin (POC) POC Cartridge - 9.2 Gm/dL High??Sensitivity??Troponin T (02/25/2024) ???High Sensitivity Troponin (HSTnT) - 35 ng/L HOLD BLUE TUBE (02/25/2024) ???Hold Blue Top - SPECIMEN DISCARDED AFTER 4 HOURS. HOLD GEL TUBE (02/25/2024) ???Hold Gel Top - SPECIMEN DISCARDED AFTER 1 WEEK HOLD LAVENDER TUBE (02/29/2024) ???Hold Lavender Top - SPECIMEN DISCARDED AFTER 24 HOURS. Lactate Level (02/25/2024) ???Lactate - 2.4 mmol/L Lactic Acid Level (02/26/2024) ???Lactate - 1.9 mmol/L Lipase (02/25/2024) ???Lipase - 96 units/L Magnesium Level (02/28/2024) ???Magnesium - 2.0 mg/dL Potassium Level (02/25/2024) ???Potassium - 4.4 mmol/L POTASSIUM POC CARTRIDGE (02/25/2024) ???Potassium (POC) POC Cartridge - 5.0 mmol/L SODIUM POC CARTRIDGE (02/25/2024) ???Sodium (POC) POC Cartridge - 133 mmol/L Total Bilirubin (02/25/2024) ???Bilirubin, Total - 0.2 mg/dL Troponin T, High Sensitivity (02/26/2024) ???High Sensitivity Troponin (HSTnT) - 45 ng/L TSH with T4 Reflex (Adults Only) (02/25/2024) ???TSH - 1.36 uIU/mL Type and Screen (02/25/2024) ???Blood Type - B Positive???Antibody Screen - Negative VBG POC CARTRIDGE (02/25/2024) ???pH Venous (POC) POC Cartridge - 7.18???pCO2 Venous (POC) POC Cartridge - 39.6 mm Hg???pO2 Venous(POC) POC Cartridge - 24 mm Hg???Est Bicarbonate (POC) POC Cartridge - 14.6 mmol/L???% O2 Sat Venous (POC) POC Cartridge - 31???Specimen Type - Blood Gas - VENOUS You will be contacted within 72 hours with your results. Allergies (NKA means No Known Allergies) Bee Stings Problems Active Problems??(28) ASHD; [place] 2012/stent circumflex vessel cath;abdelrahman 2018?? Cervical spondylosis?? Chronic back pain ??DJD?? CKD (chronic kidney disease) stage 4, GFR 15-29 ml/min?? Epididymal cyst ??rt?? Ex-cigarette smoker?? Fibrillary glomerulonephritis?? GERD with esophagitis egd 2018?? Gingivitis?? Glaucoma of both eyes?? Glomerulonephritis,mesangial proliferative/fibrillary?? Hepatitis C ??S/P sofosbuvir/weight based ribavirin in 2016?? History of acute myocardial infarction of inferior wall 2012/stent?? History of alcoholism?? History of attempted suicide?? History of nephrotic syndrome?? Hyperlipidemia?? Hypertension?? Low back pain?? Low serum vitamin D?? Lumbar spondylosis?? LVH (left ventricular hypertrophy) echo?? Multiple lung nodules?? Obese class I?? Persistent proteinuria- SEEING NEPHROLOGY?? Secondary hyperparathyroidism, renal?? Tubular adenoma of colon colonoscopy ?? Type 2 diabetes mellitus with diabetic nephropathy?? Education Materials Below is the list of Educational Leaflet Providered with your Discharge Instructions. Valuables and Belongings I fully understand and agree that [facility] accepts no responsibility for all my personal property including clothing, toilet articles, radios, jewelry, dentures, hearing aids, rings, money, or any other property that is in my possession or is brought to me after admission. I understand certain valuables may be placed in a hospital safe for a short period of time. I understand that the hospital is not liable for loss or damage due to accident, fire, or other natural occurrence while said property is in the safe. I accept full responsibility for any personal property that I keep with me, and will not hold the hospital responsible in case of loss or disappearance. I acknowledge that i have been encouraged to send valuables and belongings home. ?? Review of Valuable and Belonging List: With patient Date for Pt to Sign Valuables/Belongings: 02/25/24 23:47:00 ?? Other Discharge Information ? Pulmonary Rehab Status?? Pulmonary Rehab Discharge Status?? Respiratory Rate: 18 br/min ? Common Emergency Awareness Tips IS IT A [...] are strongly encouraged to quit. Please call [facility] at [phone] or [phone] ([phone]) or log in to [email or web address] for referrals to smoking cessation programs. ?? 771 Suicide & Crisis Lifeline is available 26/01 if you or someone you know needs to find a reason to keep living. By calling 799 you'll be connected to a skilled, trained counselor at a crisis center in your area. INPATIENT DISCHARGE INSTRUCTIONS SIGNATURE PAGE VALENTINO BORDENPAULA Location:[facility] Registration Date and Time:02/25/2024 21:29 EDT Primary Care Physician: Kelly Butler NP, Attending Physician: Jessy HICKMAN, Jaiden, I BRITTANY BORDEN, have received the above patient education materials/instructions and have verbalized understanding. If ambulance or transport services are being used I further acknowledge being given a choice of service. ?? If you need to contact me, please call me at this number: . Patient/Boom Pump Operator Name: Patient/Boom Pump Operator Signature: Relationship to Patient: Witness Name/Signature: Date: * Nhung Posadas RN: PERFORM Event Display: Patient Education Leaflets Authored Date: [id number] Bradycardia ?? [id number] Bradycardia When your heart rate is slow, or less than 60 beats per minute, it is called bradycardia. Bradycardia can be normal, caused by medicines, or a sign of a disease. The slow heart rate may not be constant. It can come and go. It's a concern when it is very low, or you have symptoms. Symptoms The following are symptoms of bradycardia: ??? Dizziness or feeling lightheaded ??? Weakness ??? Trouble breathing ??? Fainting ??? Sleepiness ??? More trouble exercising than normal because of tiredness (fatigue) ??? Confusion or trouble concentrating ?? Causes Bradycardia can have many causes. Some can be linked to your heart, but some may be linked to otherthings. Nonheart-related causes: ??? Being older ??? Side effect of certain medicines. These include beta- blockers, calcium channel blockers, digitalis, clonidine, lithium, and medicines to treat arrhythmias, such as amiodarone. ???Health conditions such as low thyroid (hypothyroidism), electrolyte disorder,??low body temperature (hypothermia), and sleep apnea ??? Athletes, especially long-distance runners, may have a slow heart rate. This can be normal. ??? Brain injury, such as stroke or bleeding inside the brain Heart-related causes: ??? Coronary artery disease. This includes angina or past heart attack (acute myocardial infarction). ??? Heart valve disease ??? Heart muscle disease (cardiomyopathy) ??? Congestive heart failure ??? Sick sinus syndrome. This is when your heart's natural pacemaker is no longer working correctly. ??? Heart block. This is when your heart's natural electrical pathways no longer work correctly. ??? Diseases that enter the heart, such as sarcoid ??? Heart infections Sometimes the cause for the arrhythmia can't be found. Bradycardia that causes symptoms is sometimes reversible. When more severe bradycardia continues, you may need a pacemaker. If the bradycardia doesn't cause symptoms, your healthcare provider may decide to watch it over time. ?? Home care The following will help you care for yourself at home: ??? Go back to your normal activities when you are feeling back to normal. ??? If you have any of the symptoms of bradycardia when you exert yourself, stop. Don't exert yourself until you have seen your healthcare provider for an assessment. ??? Work with your provider on any needed lifestyle changes. These might include changing your diet, stopping smoking if you are a smoker, and starting a planned exercise program. ?? Follow-up care Follow up with your healthcare provider, or as advised. ?? Call 911 Call 911 right away if any of these occur: ??? Chest pain ??? Trouble breathing ??? Slow heart ratewith dizziness or lightheadedness ??? Fainting or loss of consciousness ??? Chest pain that spreadsto the shoulder, arm, neck, or back ?? When to get medical care Call your healthcare provider if any of these occur: ??? Occasional weakness ??? Dizziness or feeling lightheaded ??? Abnormal trouble exercising ?? Last Reviewed Date: 2022 ?? [id number] The [employer]. All rights reserved. This information is not intended as a substitute for professional medical care. Always follow your healthcare professional's instructions. ?? Patient Care team information Care Team Personnel Name: Jeffrey Mccoy MD Position: [facility] Renal MD Member Role: Lifetime Consulting Physician Address: Address: [address] [place] [address] [address] [facility] [place], [place] - Name: Kelly Butler NP Position: [facility] PCO Associate Professional Member Role: PCP Address: Address: [address] [place] [address]- [place] Name: Kristin Mckenzie Position: [facility] Outreach Member Role: Lifetime Consulting Physician Name: Fortunato Sin RN Position: [facility] RN Member Role: Primary Care Nurse Name: Nury Watts RN Position: [facility] RN Member Role: Primary Care Nurse Name: Antonia Mena NP Position: [facility] Associate Professional Member Role: Lifetime Consulting Provider Address: Address: [address] [place] [address] [address] [facility] [place] [place] - Name: Prieto Tobin RN Position: [facility] RN Member Role: Primary Care Nurse Name: Ashleigh Reynoso RN Position: [facility] RN Member Role: Primary Care Nurse Name: Jonn Hui DO Position: [facility] Renal MD Member Role: Lifetime Consulting Physician Address: Address: [address] [place] [address] [address] [facility] [place] [place] - Name: Luis Angel Stephen RN Position: [facility] RN Member Role: Primary Care Nurse Name: Brandan Nogueira RN Position: [facility] RN Member Role: Primary Care Nurse Care Team Related Persons Name: CARLOS A BORDEN Address: home [address] [place] [address] Name: LEVI BORDEN Address: home [address] [place] [address]
--- OUTSIDE RECORDS SUMMARY | 2024-06-01 11:56 | XMS_ITS | Continuity of Care Document ---
Author Organization [facility] Nando Escobar Lazaro lt Address [address] [place] [address]- Care Team Providers Care Hall Supervisor Name Role Phone Carrie CORPORATE TREASURERKelly Primary Care Physician [phone] Encounter [facility] Date(s): 01/26/24 - 02/25/24 [facility] [place] [address] [place] [address]- Allergies, Adverse Reactions, Alerts Substance Reaction Severity Status Bee Stings Active Immunizations Given and Recorded Vaccine Date Status Refusal Reason SARS-CoV-2(COVID-19)mRNA-LNP vac(nap553) 12/31/23 Recorded SARS-CoV-2(COVID-19)mRNA-LNP vac(qpc620) 05/08/23 Recorded tetanus/diphtheria/pertussis, acel(Tdap) 10/15/23 Recorded tetanus/diphtheria/pertussis, [...] 02/03/23 Recorded zoster vaccine, inactivated 08/09/19 Recorded [id number] 12y+ bivalent booster vax 05/17/22 Recorded SARS-CoV-2 [...] adult vaccine 4 12/10/10 Given 1Result Comment: [id number] 2Result Comment: [id number] 3Admin Note: pt waited 10 mins post [...] 0 Refills, Maintenance, 02/02/24 15:25:00 EDT, [id number], with dose counter. any albuterol inhaler covered [...] day prn cough (Max 600 mg in h76-donc period), # 30 capsule, 0 Refills, Maintenance, [...] Refills, Maintenance, 02/12/24 11:53:00 EDT, [facility], 168, cm, 02/03/24 10:41:00 EDT, Height Start [...] 01/21/19 11:25:36 EDT, Route to Pharmacy Electronically, [id number], [facility]/pharmacy #[id number] Start Date: 01/21/19 Stop Date: 05/21/19 Status: Ordered lamotrigine 100 mg oral tablet TAKE 1 TABLET BY MOUTH TWICE A DAY Start Date: 02/26/24 Status: Ordered lisinopril 40 mg oral tablet 1 tablet, By Mouth, Daily, # 90 tablet, 1 Refills, Maintenance, 01/26/24 9:20:00 EDT, [facility], 168, cm, 01/11/24 14:42:00 EDT, Height, 93, kg, 01/28/22 14:55:00 EDT, Dry Weight Start Date: 01/26/24 Status: Ordered methylphenidate 5 mg oral tablet TAKE 1 TABLET BY MOUTH THREE TIMES A DAY Start Date: 01/11/24 Status: Ordered Metoprolol Tartrate 50 mg oral tablet 1.5 tablet, By Mouth, 2 times a day, # 270 tablet, 1 Refills, Maintenance, 09/16/23 14:32:00 EDT, [facility]/pharmacy #[id number], 168, cm, 07/23/23 15:05:00 EST, Height, [...] mL, 0 Refills, Maintenance, 02/02/24 15:28:00 EDT, [place], [facility], Partial fill upon patient... Start Date: 02/02/24 Status: Ordered Pen [place], 31 G x 5 mm BD Ultra [...] Refills, Maintenance, 02/04/24 16:39:00 EDT, [facility], 168, cm, 02/03/24 10:41:00 EDT, Height Start [...] 4, GFR 15-29 ml/min Confirmed Active ASHD; [place] 2012/stent circumflex 2012/vessel cath;abdelrahman 2018 3 Confirmed [...] mild to moderate. 3MI 2012 circumflex stent 2012/[place] 4secondary to hep C 524 weeks therapy with sofosbuvir/weight based ribavirin 70930 inferolateral stent bare metal circumflex 7DR Molddoverno [...] Team Personnel Name: Jeffrey Mccoy MD Position: [facility] Renal MD Member Role: Lifetime Consulting Physician Address: Address: [address] [place] [address] Dr [address] [facility] [place] [address]- Name: Kelly Butler NP Position: [facility] PCO Associate Professional Member Role: PCP Address: Address: [address] [place] [address]- Name: Kristin Mckenzie Position: [facility] Outreach Member Role: Lifetime Consulting Physician Name: Prieto Tobin RN Position: [facility] RN Member Role: Primary Care Nurse Name: Jonn Hui DO Position: [facility] Renal MD Member Role: Lifetime Consulting Physician Address: Address: [address] [place] [address] [address] [facility] [place] [address]- Name: Luis Angel Stephen RN Position: [facility] RN Member Role: Primary Care Nurse Care Team Related Persons Name: CARLOS A BORDEN Address: [address] [place] [address] Name: LEVI BORDEN Address: [address] [place] [address]
--- OUTSIDE RECORDS SUMMARY | 2024-06-01 11:57 | XMS_ITS | Continuity of Care Document ---
Author Organization [facility] Address [address] [place] [address]- Care Team Providers Care Hand Tube Bender Name Role Phone Ben Viera MD Primary Care Physician Encounter [place] Date(s): 05/07/20 - 06/15/[address] [id number] Attending Physician: Ben Viera MD Admitting [...] 10:48:07 EST, Aerosol, Route to Pharmacy Electronically, [id number], [facility]/pharmacy #[id number], 180, cm, 06/17/19 10:36:11 EST, Height Start Date: 06/17/19 Status: Ordered aspirin 81 mg oral tablet 1 tablet = 81 mg, By Mouth, Daily, # 30 tablet, 11 Refills, Maintenance, 09/03/19 14:22:00 EST, Tablet, [facility]/pharmacy #0843, 180, cm, 08/01/19 10:43:00 [...] Refills, Maintenance, 01/02/20 15:47:00 EDT, CR Capsule, [facility]/pharmacy #0843, 172, cm, 12/14/19 8:02:00 EDT, Height, 97.8, kg, 08/11/19 5:24:00 EST, Dry Weight Start Date: 01/02/20 Stop Date: 12/27/20 Status: Ordered cholecalciferol 2000 intl units oral capsule 1 capsule = 2,000 International_Units, By Mouth, Daily, # 30 capsule, 5 Refills, Maintenance, 05/25/20 11:53:00 EST, Capsule, [facility]/pharmacy #0843, 175, cm, 05/24/20 12:46:00 EST, Height, 83.6, kg, 04/23/20 17:46:00 EDT, Dry Weight Start Date: 05/25/20 Status: Ordered cloNIDine 0.2 mg oral tablet 0.2 mg, 1, tablet, By Mouth, 2 times a day, # 60 tablet, Refills 2, Tot. Refills 2, Maintenance, 03/08/20 16:50:00 EDT, Route to Pharmacy Electronically, [facility]/pharmacy #0843, 172, cm, 12/14/19 8:02:00EDT, Height, 97.8, kg, 08/11/19 5:24:00 EST, Dry We... Start Date: 03/08/20 Status: Ordered Colace sodium 100 mg oral capsule 100 mg, 1, capsule, By Mouth, 2 times a day, PRN, # 60 capsule, Refills 5, Tot. Refills 5, Maintenance, for constipation, 02/27/20 15:25:00 EDT, Route to Pharmacy Electronically, [facility]/pharmacy #[id number], 172, cm, 12/14/19 8:02:00 EDT, Height, 97.8, kg, 02... Start Date: 02/27/20 Status: Ordered Crestor 20 mg oral tablet 1 tablet = 20 mg, By Mouth, Daily, # 90 tablet, 3 Refills, Maintenance, 01/02/20 15:46:00 EDT, Tablet, [facility]/pharmacy #0843, 172, cm, 12/14/19 8:02:00 EDT, Height, 97.8, kg, 08/11/19 5:24:00 EST, Dry Weight Start Date: 01/02/20 Status: Ordered Daily Simone oral tablet 1 tablet, By Mouth, Daily, # 30 tablet, 5 Refills, Maintenance, 03/01/20 14:48:00 EDT, Tablet, [facility]/pharmacy #[id number], 1 tablet By Mouth Daily,x30 days, 172, cm, 12/14/19 8:02:00 EDT, Height, 97.8, kg, 08/11/19 5:24:00 EST, Dry Weight Start Date: 03/01/20 Stop Date: 08/28/20 Status: Ordered folic acid 1 mg oral tablet 1 mg, 1, tablet, By Mouth, Daily, # 30 tablet, Refills 5, Tot. Refills 5, Maintenance, 12/29/19 11:13:00 EDT, Route to Pharmacy Electronically, [facility]/pharmacy #[id number], 172, cm, 12/14/19 8:02:00 [...] tablet, 5 Refills, Maintenance, 02/27/20 15:23:00 EDT, [facility]/pharmacy #0843, 172, cm, 12/14/19 8:02:00 EDT, Height, 97.8, kg, 08/11/19 5:24:00 EST, Dry Weight Start Date: 02/27/20 Status: Ordered LaMICtal 100 mg oral tablet 100 mg, 1, tablet, By Mouth, 2 times a day, # 60 tablet, Refills 3, Tot. Refills 3, Maintenance, 01/21/19 11:25:36 EDT, Route to Pharmacy Electronically, [id number], [facility]/pharmacy #0843 Start Date: 01/21/19 Stop [...] 01/02/20 15:45:00 EDT, Route to Pharmacy Electronically, [facility]/pharmacy #[id number], 172, cm, 12/14/19 8:02:00 EDT, Height, 9... Start Date: 01/02/20 Status: Ordered nicotine 2 mg oral transmucosal lozenge See Instructions, suck, up to q1 hrs 10 daily, # 144 lozenge, 1 Refills, Maintenance, 03/21/20 11:13:00 EDT, [id number], suck, up to q1 hrs 10 daily, 172, cm, 03/21/20 11:04:00 EDT, Height, 97.8, kg, 08/11/19 5:24:00 EST, Dry Weight Start Date: 03/21/20 Status: Ordered nicotine 4 mg oral transmucosal lozenge 1 lozenge = 4 mg, By Mouth, Every hour, # 132 lozenge, 1 Refills, Maintenance, 11/29/19 8:13:00 EDT, [id number], 1 lozenge By Mouth [...] 2 Refills, Soft Stop, 06/01/20 13:51:00 EST, [id number], 175, cm, 05/24/20 12:46:00 EST, Height, [...] Weight Start Date: 02/01/20 Status: Ordered Pen [place], 31 G x 5 mm BD Ultra [...] 09/21/19 10:41:00 EDT, Route to Pharmacy Electronically, [facility]/pharmacy #[id number], 172, cm, 09/05/19 16:17:00 [...] EST, Tablet, this was previously sent to [facility] pharmacy Start Date: 05/17/19 Stop Date: 05/11/20 [...] Active Glomerulonephritis,mesangial proliferative/fibrillary(Confirmed) 1, 2 Active ASHD; [place] 2012/stent circumfl ex vessel cath;abdelrahman 2018(Confirmed) 3 Active Epididymal cyst rt(Confirmed) 04/18/19 Active Low serum vitamin D(Confirmed) Active Dizzinesses(Confirmed) Active Insulin long-term use(Confirmed) Active Dysphagia(Confirmed) Active Ex-smoker quit 2018ld t enrolled(Confirmed) Active Fibrillary glomerulonephritis(Confirmed) 4 Active [...] 524 weeks therapy with sofosbuvir/weight based ribavirin 82816 inferolateral stent bare metal circumflex 7DR Marissa [...]
--- OUTSIDE RECORDS SUMMARY | 2024-06-01 11:57 | XMS_ITS | Continuity of Care Document ---
Author Organization [facility] Shawn Lazaro lt Address [address] [place] [address]- Care Team Providers Care Discount Clerk Name Role Phone Ben Viera MD Primary Care Physician Encounter [facility] ACCT R [id number] Date(s): 11/14/21 - 12/14/21 [facility] Adult [address] [place] [address]- Attending Physician: Ben Viera MD Allergies, Adverse [...] 06/24/21 12:51:00 EST, Route to Pharmacy Electronically, [facility]/pharmacy #[id number], 175.2, cm, 06/07/21 9:51:00 EST, Height, 88.3, kg, 03/12/21 9:16:00 EDT, Dry... Start Date: 06/24/21 Status: Ordered Daily Simone oral tablet 1 tablet, By Mouth, Daily, # 30 tablet, 5 Refills, Maintenance, 07/29/21 13:53:00 EST, Tablet, [facility]/pharmacy #[id number], 1 tablet By Mouth Daily,x30 days, 175.2, cm, 06/07/21 9:51:00 EST, Height, 88.3, kg,03/12/21 9:16:00 EDT, Dry Weight Start Date: 07/29/21 Stop Date: 01/25/22 Status: Ordered docusate sodium 100 mg oral capsule 1 capsule, By Mouth, 2 times a day, PRN NEEDED FOR CONSTIPATION, # 60 capsule, 5 Refills, Maintenance, 06/05/21 15:57:00 EST, [facility]/pharmacy #[id number], 175.2, cm, 05/27/21 11:26:00 EST, Height, 88.3, kg, 03/12/21 9:16:00 EDT, Dry Weight Start Date: 06/05/21 Status: Ordered folic acid 1 mg oral tablet 1, tablet, By Mouth, Daily, # 30 tablet, Refills 5, Tot. Refills 5, Maintenance, 07/25/21 15:59:00 EST, Route to Pharmacy Electronically, [facility]/pharmacy #[id number], 175.2, cm, 06/07/21 9:51:00 EST, [...] tablet, 5 Refills, Maintenance, 06/05/21 15:57:00 EST, [facility]/pharmacy #[id number], 175.2, cm, 05/27/21 11:26:00 EST, Height, 88.3, kg, 03/12/21 9:16:00 EDT, Dry Weight Start Date: 06/05/21 Status: Ordered LaMICtal 100 mg oral tablet 100 mg, 1, tablet, By Mouth, 2 times a day, # 60 tablet, Refills 3, Tot. Refills 3, Maintenance, 01/21/19 11:25:36 EDT, Route to Pharmacy Electronically, [id number], [facility]/pharmacy #[id number] Start Date: 01/21/19 Stop Date: [...] 3 Refills, Maintenance, 09/17/21 10:50:00 EDT, Tablet, [facility]/pharmacy #0843, Partial fill upon patient request if the prescription is for a schedule II opioid drug., 175.2, cm, 07/31/21 11:20:00 EST, Heigh... Start Date: 09/17/21 Status: Ordered Metoprolol Tartrate 50 mg oral tablet 1.5 tablet, By Mouth, 2 times a day, # 270 tablet, 0 Refills, [facility] 06204, 175.2, cm, 11/15/21 11:18:00 EDT, Height, 88.3, kg, 03/12/21 9:16:00 EDT, Dry Weight Start Date: 12/12/21 Status: Ordered nicotine 2 mg oral transmucosal lozenge See Instructions, USE 1 LOZENGE UP TO EVERY 1 HOUR NEEDED FOR 10 DAYS, # 162 lozenge, 0 Refills,Maintenance, 12/11/21 9:38:00 EDT, [facility]/pharmacy #0843, 16, USE 1 LOZENGE UP [...] tablet, 0 Refills, Maintenance, 08/23/21 8:07:00 EST, [facility]/pharmacy #0843, 175.2, cm, 07/31/21 11:20:00 EST, H... Start Date: 08/23/21 Status: Ordered NovoLOG FlexPen 100 units/mL injectable solution See Instructions, INJECT 0-18 UNITS SUBCUTANEOUSLY WITH MEALS FOR SLIDING SCALES, # 15 Unknown, 2 Refills, [facility] 53261, 175.2, cm, 05/27/21 11:26:00 EST, Height, 88.3, kg, 03/12/21 9:16:00 EDT, Dry Weight Start Date: 06/04/21 Status: Ordered Pen [place], 31 G x 5 mm BD Ultra [...] capsule, 5 Refills, Maintenance, 11/19/21 11:25:00EDT, Capsule, [facility]/pharmacy #0843, 175.2, cm, 11/15/21 11:18:00 EDT, Height, 88.3, kg, 03/12/21 9:16:00 EDT, Dry Weight Start Date: 11/19/21 Status: Ordered pregabalin 75 mg oral capsule 1 capsule = 75 mg, By Mouth, Daily, # 30 capsule, 5 Refills, Maintenance, 06/10/21 12:32:00 EST, Capsule, [facility]/pharmacy #0843, 175.2, cm, 06/07/21 9:51:00 EST, Height, 88.3, kg, 03/12/21 9:16:00 EDT, Dry Weight Start Date: 06/10/21 Status: Ordered rosuvastatin 20 mg oral tablet 1 tablet, By Mouth, Daily, # 90 tablet, 1 Refills, Maintenance, 08/15/21 14:24:00 EST, [facility]/pharmacy#0843, 175.2, cm, 07/31/21 11:20:00 EST, Height, 88.3, kg, 03/12/21 9:16:00 EDT, Dry Weight Start Date: 08/15/21 Status: Ordered SEROquel 100 mg oral tablet 100 mg, 1, tablet, By Mouth, 2 times a day, # 60 tablet, Refills 2, Tot. Refills 2, Maintenance, 09/21/19 10:41:00 EDT, Route to Pharmacy Electronically, [facility]/pharmacy #[id number], 172, cm, 09/05/19 16:17:00 EST, [...] 0 Refills, Maintenance, 11/29/21 15:58:00 EDT, Suspension, [facility]/pharmacy #0843, 1 drops Eyes, Both 2 [...] # 9 Unknown, 1 Refills, [facility], 175.2, cm, 07/31/21 11:20:00 EST, Height, 88.3, [...] # 30 capsule, 5 Refills, [facility], 175.2, cm, 11/15/21 11:18:00 EDT, Height, 88.3, kg, 03/12/21 9:16:00 EDT, Dry Weight Start Date: 11/17/21 Status: Ordered Problem List Condition Effective Dates Status Health Status Inform ant Bipolar disorder(Confirmed) Active Cervical spondylosis(Confirmed) Active Chronic back pain DJD(Confirmed) Active Glomerulonephritis,mesangial proliferative/fibrillary(Confirmed) 1, 2 Active Chronic renal failure, stage 4 (severe)(Confirmed) Active ASHD; [place] 2012/ circumfl ex vessel cath;abdelrahman 2018(Confirmed) 3 Active [...] of acute myocardial infarction of inferior wall 2013/(Confirmed) 6 Active Hyperlipidemia(Confirmed) Active Hypertension(Confirmed) Active LVH [...] mild to moderate. 3MI 2012 circumflex stent 2013/[place] 4secondary to hep C 524 weeks therapy with sofosbuvir/weight based ribavirin 98951 inferolateral stent bare metal circumflex 7DR Molddoverno [...]
--- OUTSIDE RECORDS SUMMARY | 2024-06-01 11:57 | XMS_ITS | Continuity of Care Document ---
Author Organization [facility] Nando Escobar Lazaro lt Address [address] [place] [address]- Care Team Providers Care Lbd Teacher Name Role Phone Carrie LABORER CHEMICAL PROCESSINGKelly Primary Care Physician [phone] Encounter [facility] Date(s): 06/18/23 - 07/18/23 [facility] Nando Escobar Adult [address] [place] [address]- Allergies, Adverse Reactions, Alerts Substance Reaction Severity Status Bee Stings Active Immunizations Given and Recorded Vaccine Date Status Refusal Reason SARS-CoV-2(COVID-19)mRNA-LNP vac([id number]) 05/08/23 Recorded pneumococcal 20-valent conjugate vaccine 1 [...] 02/03/23 Recorded zoster vaccine, inactivated 08/09/19 Recorded [id number] 12y+ bivalent booster vax 05/17/22 Recorded SARS-CoV-2 [...] adult vaccine 4 12/10/10 Given 1Result Comment: [id number] 2Result Comment: [id number] 3Admin Note: pt waited 10 mins post inj no adverse reaction noted.j a 4Admin Note: PT WAITED 10 MIN WITH NO ADVERSE REACTION. MH Medications aspirin 81 mg oral delayed release tablet 1 tablet, By Mouth, Daily, # 90 tablet, 1 Refills, Maintenance, 06/02/23 11:42:00 EST, [facility]/pharmacy#[id number], 168, cm, 05/01/23 14:45:00 EDT, Height, 93, [...] capsule, 1 Refills, Maintenance, 06/30/23 7:20:00 EST, [facility], 168, cm, 05/01/23 14:45:00 EDT, Height, 93, kg, 01/28/22 14:55:00 EDT, Dry Weight Start Date: 06/30/23 Status: Ordered Daily Simone oral tablet 1 tablet, By Mouth, Daily, # 90 tablet, 1 Refills, Maintenance, 06/30/23 7:20:00 EST, [facility], 90, TAKE 1 TABLET BY MOUTH EVERY [...] Refills, Maintenance, 06/26/23 6:50:00 EST, [facility], 168, cm, 05/01/23 14:45:00 EDT, Height, 93, kg, 01/28/22 14:55:00 EDT, Dry Weight Start Date: 06/26/23 Status: Ordered folic acid 1 mg oral tablet 1, tablet, By Mouth, Daily, # 90 tablet, Refills 1, Tot. Refills 1, Maintenance, 07/03/23 10:01:00 EST, Route to Pharmacy Electronically, [facility]/pharmacy #[id number], 168, cm, 05/01/23 14:45:00 EDT, Height, [...] 01/21/19 11:25:36 EDT, Route to Pharmacy Electronically, [id number], [facility]/pharmacy #[id number] Start Date: 01/21/19 Stop Date: 05/21/19 Status: Ordered lamotrigine 100 mg oral tablet Refills 0, Maintenance, 05/01/23 15:28:00 EDT, Partial fill upon patient request if the prescription is for a schedule II opioid drug. Start Date: 05/01/23 Status: Ordered lisinopril 40 mg oral tablet 1 tablet, By Mouth, Daily, # 90 tablet, 0 Refills, Maintenance, 04/21/23 10:51:00 EDT, [facility], 175, cm, 10/09/22 16:51:00 EDT, Height, 93, [...] Refills, Maintenance, 02/20/23 7:15:00 EDT, [facility], 175, cm, 10/09/22 16:51:00 EDT, Height, 93, [...] Weight Start Date: 11/07/22 Status: Ordered Pen [place], 31 G x 5 mm BD Ultra [...] capsule, 2 Refills, Maintenance, 07/03/23 9:40:00 EST, [facility]/pharmacy #[id number], Partial fill upon patient request if the prescription is for a schedule II opioid drug., 168, cm, 05/01/23 14:45:00 EDT, Height, 93, kg... Start Date: 07/03/23 Status: Ordered rosuvastatin 20 mg oral tablet 1 tablet, By Mouth, Daily, # 90 tablet, 1 Refills, Maintenance, 03/29/23 14:43:00 EDT, [facility], 175, cm, 10/09/22 16:51:00 EDT, Height, 93, [...] ml/min Confirmed Active ASHD; [place] 2012/stent circumflex 2012/vessel cath;abdelrahman 2018 3 Confirmed [...] mild to moderate. 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 2012/[place] 4secondary to hep C 524 weeks therapy with sofosbuvir/weight based ribavirin 86093 inferolateral stent bare metal circumflex 7DR Marissa [...] Team Personnel Name: Jeffrey Mccoy MD Position: [facility] Renal MD Member Role: Lifetime Consulting Physician Address: Address: [address] [facility] [place] [address]- Name: Kelly Butler NP Position: [facility] PCO Associate Professional Member Role: PCP Address: Address: [address] [place] [address]- Name: Kristin Mckenzie Position: [facility] Outreach Member Role: Lifetime Consulting Physician Name: Prieto Tobin RN Position: [facility] RN Member Role: Primary Care Nurse Name: Jonn Hui DO Position: [facility] Renal MD Member Role: Lifetime Consulting Physician Address: Address: [address] [place], [place] [address] [place] [address]- Name: Luis Angel Stephen RN Position: [facility] RN Member Role: Primary Care Nurse Care Team Related Persons Name: CARLOS A BORDEN Address: home [address] [place] [address] Name: LEVI BORDEN Address: home [address] [place] [address]
--- OUTSIDE RECORDS SUMMARY | 2024-06-01 11:57 | XMS_ITS | Continuity of Care Document ---
Author Organization [facility] Nando Escobar Lazaro lt Address [address] [place] [address]- Care Team Providers Care Technical Staff Engineer Name Role Phone Carrie DECAL MAKER, Kelly Lopez Primary Care Physician [phone] [place] [facility] [place]22 [facility] Nando Escobar Adult [address] [place] [address]- Attending Physician: Hanna Elias Allergies, Adverse Reactions, Alerts Substance Reaction Severity [...] influenza virus vaccine, inactivated 04/16/10 Give n [id number] 12y+ bivalent booster vax 05/17/22 Recorded SARS-CoV-2 [...] tablet, 3 Refills, Maintenance, 09/30/21 12:28:00 EDT, [facility]/pharmacy#[id number], 175.2, cm, 09/20/21 8:36:00 EDT, Height, [...] 5 Refills, Maintenance, 02/11/22 11:48:00 EDT, Tablet, [facility]/pharmacy #[id number], 1 tablet By Mouth Daily,x30 days, 175, cm, 01/29/22 15:12:00 EDT, Height, 93, kg, 01/28/22 14:55:00 EDT, Dry Weight Start Date: 02/11/22 Stop Date: 08/10/22 Status: Ordered DilTIAZem (Eqv-Cardizem CD) 180 mg/24 hours oral capsule, extended release 1 capsule, By Mouth, Daily, # 90 capsule, 0 Refills, Maintenance, 05/21/22 13:33:00 EST, [facility], 175, cm, 05/09/22 11:08:00 EDT, Height, 93, kg, 01/28/22 14:55:00 EDT, Dry Weight Start Date: 05/21/22 Status: Ordered docusate sodium 100 mg oral capsule 1 capsule, By Mouth, 2 times a day, PRN NEEDED FOR CONSTIPATION, # 60 capsule, 5 Refills, Maintenance, 07/18/22 11:59:00 EST, [facility]/pharmacy #[id number], 175, cm, 07/17/22 10:33:00 EST, Height, 93, kg, 01/28/22 14:55:00 EDT, Dry Weight Start Date: 07/18/22 Status: Ordered folic acid 1 mg oral tablet 1, tablet, By Mouth, Daily, # 30 tablet, Refills 5, Tot. Refills 5, Maintenance, 04/01/22 21:30:00 EDT, Route to Pharmacy Electronically, [facility]/pharmacy #[id number], 175, cm, 02/14/22 10:10:00 EDT, [...] 01/21/19 11:25:36 EDT, Route to Pharmacy Electronically, [id number], [facility]/pharmacy #[id number] Start Date: 01/21/19 Stop Date: 05/21/19 Status: Ordered lisinopril 40 mg oral tablet 1 tablet, By Mouth, Daily, # 90 tablet, 1 Refills, Maintenance, 05/07/22 14:29:00 EDT, [facility] STORE 9[facility]60, 175, cm, 04/08/22 8:34:00 EDT, Height, 93, kg, 01/28/22 14:55:00 EDT, Dry Weight Start Date: 05/07/22 Status: Ordered Metoprolol Tartrate 50 mg oral tablet 1.5 tablet, By Mouth, 2 times a day, # 270 tablet, 0 Refills, 05/21/22 10:19:00 EST, [facility]/pharmacy #[id number], 175, cm, 05/09/22 11:08:00 EDT, Height, 93, kg, 01/28/22 14:55:00 EDT, Dry Weight Start Date: 05/21/22 Status: Ordered nicotine 14 mg/24 hr transdermal film, extended release 1 patch, Topically, Daily, for 30 days, # 28 patch, 0 Refills, Acute 08/30/22 12:24:00 EST, 07/31/22 12:24:00 EST, Patch, [facility]/pharmacy #[id number], 1 patch Topically Daily,x30 days, 175, cm, 07/17/22 10:33:00 EST, Height, 93, kg, 01/28/22 14:55:00 EDT, Dry... Start Date: 07/31/22 Stop Date: 08/30/22 Status: Ordered Nicotine 7 mg/24 hour patch 1 patch, Topically, Daily, for 30 days, # 30 patch, 0 Refills, Acute 08/14/22 19:52:00 EST, 07/15/22 19:52:00 EST, Patch, [facility]/pharmacy #[id number], Partial fill upon patient request if the prescription is for a schedule II opioid drug., 1 patch Topically Da... Start Date: 07/15/22 Stop Date: 08/14/22 Status: Ordered nitroglycerin 0.4 mg sublingual tablet [...] # 15 Unknown, 2 Refills, [facility], 175.2, cm, 05/27/21 11:26:00 EST, Height, 88.3, kg, 03/12/21 9:16:00 EDT, Dry Weight Start Date: 06/04/21 Status: Ordered Pen [place], 31 G x 5 mm BD Ultra [...] 5 Refills, Maintenance, 04/08/22 9:12:00 EDT, Capsule, [facility]/pharmacy #[id number], 175, cm, 04/08/22 8:34:00 EDT, Height, 93, kg, 01/28/22 14:55:00 EDT, Dry Weight Start Date: 04/08/22 Status: Ordered rosuvastatin 20 mg oral tablet 1 tablet, By Mouth, Daily, # 90 tablet, 1 Refills, Maintenance, 05/21/22 13:33:00 EST, [facility], 175, cm, 05/09/22 11:08:00 EDT, Height, 93, [...] 4, GFR 15-29 ml/min Confirmed Active ASHD; [place] 2012/stent circumflex vessel cath;abdelrahman 2018 3 Confirmed [...] mild to moderate. 3MI 2012 circumflex stent 2013/[place] 4secondary to hep C 524 weeks therapy with sofosbuvir/weight based ribavirin 70783 inferolateral stent bare metal circumflex 7DR Molddoverno [...] Member Role: Lifetime Consulting Physician Address: Address: [address] [place] [address] [facility] [place] [address]- Name: Kelly Butler NP Position: [facility] PCO Associate Professional Member Role: PCP Address: Address: [address] [place] [address] [place] [address]- [place] Name: Kristin Mckenzie Position: S Outreach Member Role: Lifetime Consulting Physician Name: Prieto Tobin RN Position: S RN Member Role: Primary Care Nurse Name: Jonn Hui DO Position: [facility] Renal MD Member Role: Lifetime Consulting Physician Address: Address: [address] [place], [place] [address] [place] [address]- Name: Luis Angel Stephen RN Position: S RN Member Role: Primary Care Nurse Name: Tamie Baird RN Position: S RN Member Role: Primary Care Nurse Care Team Related Persons Name: CARLOS A BORDEN Address: [address] [place] [address] Name: LEVI BORDEN Address: [address] [place] [address]
--- OUTSIDE RECORDS SUMMARY | 2024-06-01 11:57 | XMS_ITS | Continuity of Care Document ---
Author Organization [facility] Shawn Lazaro lt Address [address] [place] [address]- Care Team Providers Care Cardiac Cath Lab Manager Name Role Phone Aylin HICKMAN, Ben Willis Primary Care Physician [place] [facility] [place] [facility] Adult [address] [place] [address]- Allergies, Adverse Reactions, Alerts Substance Reaction Severity Status Bee Stings Active Immunizations Given and Recorded Vaccine Date Status Refusal Reason SARS-CoV-2 (COVID-19) mRNA-1273 vaccine 10/10/21 R ecorded influenza virus vaccine, inactivated 05/24/21 Andrew rded influenza virus vaccine, inactivated 03/13/20 Anrdew rded influenza virus vaccine, inactivated 03/23/19 Give [...] 06/24/21 12:51:00 EST, Route to Pharmacy Electronically, [facility]/pharmacy #[id number], 175.2, cm, 06/07/21 9:51:00 EST, Height, 88.3, kg, 03/12/21 9:16:00 EDT, Dry... Start Date: 06/24/21 Status: Ordered Daily Simone oral tablet 1 tablet, By Mouth, Daily, # 30 tablet, 5 Refills, Maintenance, 07/29/21 13:53:00 EST, Tablet, [facility]/pharmacy #[id number], 1 tablet By Mouth Daily,x30 days, 175.2, cm, 06/07/21 9:51:00 EST, Height, 88.3, kg,03/12/21 9:16:00 EDT, Dry Weight Start Date: 07/29/21 Stop Date: 01/25/22 Status: Ordered docusate sodium 100 mg oral capsule 1 capsule, By Mouth, 2 times a day, PRN NEEDED FOR CONSTIPATION, # 60 capsule, 5 Refills, Maintenance, 06/05/21 15:57:00 EST, [facility]/pharmacy #[id number], 175.2, cm, 05/27/21 11:26:00 EST, Height, 88.3, kg, 03/12/21 9:16:00 EDT, Dry Weight Start Date: 06/05/21 Status: Ordered folic acid 1 mg oral tablet 1, tablet, By Mouth, Daily, # 30 tablet, Refills 5, Tot. Refills 5, Maintenance, 07/25/21 15:59:00 EST, Route to Pharmacy Electronically, [facility]/pharmacy #[id number], 175.2, cm, 06/07/21 9:51:00 EST, [...] tablet, 5 Refills, Maintenance, 06/05/21 15:57:00 EST, [facility]/pharmacy #[id number], 175.2, cm, 05/27/21 11:26:00 EST, Height, 88.3, kg, 03/12/21 9:16:00 EDT, Dry Weight Start Date: 06/05/21 Status: Ordered LaMICtal 100 mg oral tablet 100 mg, 1, tablet, By Mouth, 2 times a day, # 60 tablet, Refills 3, Tot. Refills 3, Maintenance, 01/21/19 11:25:36 EDT, Route to Pharmacy Electronically, [id number], [facility]/pharmacy #[id number] Start Date: 01/21/19 Stop [...] 3 Refills, Maintenance, 09/17/21 10:50:00 EDT, Tablet, [facility]/pharmacy #[id number], Partial fill upon patient request if the prescription is for a schedule II opioid drug., 175.2, cm, 07/31/21 11:20:00 EST, Heigh... Start Date: 09/17/21 Status: Ordered Metoprolol Tartrate 50 mg oral tablet 1.5 tablet, By Mouth, 2 times a day, # 270 tablet, 0 Refills, [facility] 54323, 175.2, cm, 11/15/21 11:18:00 EDT, Height, 88.3, kg, 03/12/21 9:16:00 EDT, Dry Weight Start Date: 12/12/21 Status: Ordered nicotine 2 mg oral transmucosal lozenge See Instructions, USE 1 LOZENGE UP TO EVERY 1 HOUR NEEDED FOR 10 DAYS, # 162 lozenge, 0 Refills,Maintenance, 12/11/21 9:38:00 EDT, [facility]/pharmacy #[id number], 16, USE 1 LOZENGE UP [...] tablet, 0 Refills, Maintenance, 08/23/21 8:07:00 EST, [facility]/pharmacy #[id number], 175.2, cm, 07/31/21 11:20:00 EST, H... Start Date: 08/23/21 Status: Ordered NovoLOG FlexPen 100 units/mL injectable solution See Instructions, INJECT 0-18 UNITS SUBCUTANEOUSLY WITH MEALS FOR SLIDING SCALES, # 15 Unknown, 2 Refills, [facility] 0[facility]21, 175.2, cm, 05/27/21 11:26:00 EST, Height, 88.3, kg, 03/12/21 9:16:00 EDT, Dry Weight Start Date: 06/04/21 Status: Ordered Pen [place], 31 G x 5 mm BD Ultra [...] capsule, 5 Refills, Maintenance, 11/19/21 11:25:00EDT, Capsule, [facility]/pharmacy #[id number], 175.2, cm, 11/15/21 11:18:00 EDT, Height, 88.3, kg, 03/12/21 9:16:00 EDT, Dry Weight Start Date: 11/19/21 Status: Ordered pregabalin 75 mg oral capsule 1 capsule = 75 mg, By Mouth, Daily, # 30 capsule, 5 Refills, Maintenance, 06/10/21 12:32:00 EST, Capsule, [facility]/pharmacy #[id number], 175.2, cm, 06/07/21 9:51:00 EST, Height, 88.3, kg, 03/12/21 9:16:00 EDT, Dry Weight Start Date: 06/10/21 Status: Ordered rosuvastatin 20 mg oral tablet 1 tablet, By Mouth, Daily, # 90 tablet, 1 Refills, Maintenance, 08/15/21 14:24:00 EST, [facility]/pharmacy#0843, 175.2, cm, 07/31/21 11:20:00 EST, Height, 88.3, kg, 03/12/21 9:16:00 EDT, Dry Weight Start Date: 08/15/21 Status: Ordered SEROquel 100 mg oral tablet 100 mg, 1, tablet, By Mouth, 2 times a day, # 60 tablet, Refills 2, Tot. Refills 2, Maintenance, 09/21/19 10:41:00 EDT, Route to Pharmacy Electronically, [facility]/pharmacy #[id number], 172, cm, 09/05/19 16:17:00 EST, [...] 0 Refills, Maintenance, 11/29/21 15:58:00 EDT, Suspension, [facility]/pharmacy #[id number], 1 drops Eyes, Both 2 [...] # 9 Unknown, 1 Refills, [facility], 175.2, cm, 07/31/21 11:20:00 EST, Height, 88.3, [...] # 30 capsule, 5 Refills, [facility], 175.2, cm, 11/15/21 11:18:00 EDT, Height, 88.3, kg, 03/12/21 9:16:00 EDT, Dry Weight Start Date: 11/17/21 Status: Ordered Problem List Condition Effective Dates Status Health Status Inform ant Bipolar disorder(Confirmed) Active Cervical spondylosis(Confirmed) Active Chronic back pain DJD(Confirmed) Active Glomerulonephritis,mesangial proliferative/fibrillary(Confirmed) 1, 2 Active Chronic renal failure, stage 4 (severe)(Confirmed) Active ASHD; [place] 2012/stent circumfl ex vessel [...] mild to moderate. 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 2013/[place] 4secondary to hep C 524 weeks therapy with sofosbuvir/weight based ribavirin 00373 inferolateral stent bare metal circumflex 7DR Molddoverno [...]
--- OUTSIDE RECORDS SUMMARY | 2024-06-01 11:57 | XMS_ITS | Continuity of Care Document ---
Author Organization [facility] Nando Escobar Lazaro lt Address [address] [place] [address]- Care Team Providers Care Orthophoto Tech/Draftsman Name Role Phone Ben Viera MD Primary Care Physician [phone] Encounter [facility] Date(s): 12/18/21 - 12/25/21 [facility] Nando Escobar Adult [address] [place] [address]- Encounter Diagnosis ASHD; [place] 2012/stent circumflex vessel cath;abdelrahman 2018(Discharge Diagnosis) - 12/14/21 Chronic renal failure, stage 4 (severe)(Discharge Diagnosis) - 12/14/21 Glomerulonephritis,mesangial proliferative/fibrillary(Discharge Diagnosis) - 12/14/21 Hypertension(Discharge Diagnosis) - 12/14/21 Hyperlipidemia(Discharge Diagnosis) - 12/14/21 Glaucoma of both eyes(Discharge Diagnosis) - 12/18/21 Ex-cigarette smoker quit May 2019(Discharge Diagnosis) - 12/18/21 Attending Physician: Ben Viera MD Allergies, Adverse [...] tablet, 3 Refills, Maintenance, 09/30/21 12:28:00 EDT, [facility]/pharmacy#[id number], 175.2, cm, 09/20/21 8:36:00 EDT, Height, 88.3, [...] Refills, Maintenance, 01/18/22 11:08:00 EDT, CR Capsule, [facility]/pharmacy #[id number], 175.2, cm, 11/15/21 11:18:00 EDT, Height, 88.3, kg, 03/12/21 9:16:00 EDT, Dry Weight Start Date: 01/18/22 Stop Date: 07/17/22 Status: Ordered cloNIDine 0.2 mg oral tablet 0.2 mg, 1, tablet, By Mouth, 2 times a day, # 60 tablet, Refills 5, Tot. Refills 5, Maintenance, 06/24/21 12:51:00 EST, Route to Pharmacy Electronically, [facility]/pharmacy #[id number], 175.2, cm, 06/07/21 9:51:00 EST, Height, 88.3, kg, 03/12/21 9:16:00 EDT, Dry... Start Date: 06/24/21 Status: Ordered Daily Simone oral tablet 1 tablet, By Mouth, Daily, # 30 tablet, 5 Refills, Maintenance, 07/29/21 13:53:00 EST, Tablet, [facility]/pharmacy #[id number], 1 tablet By Mouth Daily,x30 days, 175.2, cm, 06/07/21 9:51:00 EST, Height, 88.3, kg,03/12/21 9:16:00 EDT, Dry Weight Start Date: 07/29/21 Stop Date: 01/25/22 Status: Ordered docusate sodium 100 mg oral capsule 1 capsule, By Mouth, 2 times a day, PRN NEEDED FOR CONSTIPATION, # 60 capsule, 5 Refills, Maintenance, 06/05/21 15:57:00 EST, [facility]/pharmacy #[id number], 175.2, cm, 05/27/21 11:26:00 EST, Height, 88.3, kg, 03/12/21 9:16:00 EDT, Dry Weight Start Date: 06/05/21 Status: Ordered folic acid 1 mg oral tablet 1, tablet, By Mouth, Daily, # 30 tablet, Refills 5, Tot. Refills 5, Maintenance, 07/25/21 15:59:00 EST, Route to Pharmacy Electronically, [facility]/pharmacy #[id number], 175.2, cm, 06/07/21 9:51:00 EST, Height, [...] tablet, 5 Refills, Maintenance, 06/05/21 15:57:00 EST, [facility]/pharmacy #[id number], 175.2, cm, 05/27/21 11:26:00 EST, Height, 88.3, kg, 03/12/21 9:16:00 EDT, Dry Weight Start Date: 06/05/21 Status: Ordered LaMICtal 100 mg oral tablet 100 mg, 1, tablet, By Mouth, 2 times a day, # 60 tablet, Refills 3, Tot. Refills 3, Maintenance, 01/21/19 11:25:36 EDT, Route to Pharmacy Electronically, [id number], [facility]/pharmacy #[id number] Start Date: 01/21/19 Stop Date: 05/21/19 Status: Ordered lisinopril 40 mg oral tablet 1 tablet = 40 mg, By Mouth, Daily, # 30 tablet, 3 Refills, Maintenance, 09/17/21 10:50:00 EDT, Tablet, [facility]/pharmacy #[id number], Partial fill upon patient request if the prescription is for a schedule II opioid drug., 175.2, cm, 07/31/21 11:20:00 EST, Heigh... Start Date: 09/17/21 Status: Ordered Metoprolol Tartrate 50 mg oral tablet 1.5 tablet, By Mouth, 2 times a day, # 270 tablet, 0 Refills, [id number], 175.2, cm, 11/15/21 11:18:00 EDT, Height, 88.3, kg, 03/12/21 9:16:00 EDT, Dry Weight Start Date: 12/12/21 Status: Ordered nicotine 2 mg oral transmucosal lozenge See Instructions, USE 1 LOZENGE UP TO EVERY 1 HOUR NEEDED FOR 10 DAYS, # 162 lozenge, 0 Refills,Maintenance, 12/11/21 9:38:00 EDT, [facility]/pharmacy #[id number], 16, USE 1 LOZENGE UP TO EVERY 1 HOUR NEEDED FOR 10 DAYS, 175.2, cm, 11/15/21 11:18:00 EDT, He... Start Date: 12/11/21 Status: Ordered nitroglycerin 0.4 mg sublingual tablet See Instructions, DISSOLVE 1 UNDER TONGUE EVERY 5 MINUTES NEEDED FOR CHEST PAIN INSTR:CALL MD AFTER TAKING 3 TABS IN TOTAL IN A DAY, # 100 tablet, 0 Refills, Maintenance, 08/23/21 8:07:00 EST, [facility]/pharmacy #[id number], 175.2, cm, 07/31/21 11:20:00 EST, H... Start Date: 08/23/21 Status: Ordered NovoLOG FlexPen 100 units/mL injectable solution See Instructions, INJECT 0-18 UNITS SUBCUTANEOUSLY WITH MEALS FOR SLIDING SCALES, # 15 Unknown, 2 Refills, [facility] [id number], 175.2, cm, 05/27/21 11:26:00 EST, Height, 88.3, kg, 03/12/21 9:16:00 EDT, Dry Weight Start Date: 06/04/21 Status: Ordered Pen [place], 31 G x 5 mm BD Ultra [...] capsule, 5 Refills, Maintenance, 11/19/21 11:25:00EDT, Capsule, [facility]/pharmacy #[id number], 175.2, cm, 11/15/21 11:18:00 EDT, Height, 88.3, kg, 03/12/21 9:16:00 EDT, Dry Weight Start Date: 11/19/21 Status: Ordered pregabalin 75 mg oral capsule 1 capsule = 75 mg, By Mouth, Daily, # 30 capsule, 5 Refills, Maintenance, 06/10/21 12:32:00 EST, Capsule, [facility]/pharmacy #[id number], 175.2, cm, 06/07/21 9:51:00 EST, Height, 88.3, kg, 03/12/21 9:16:00 EDT, Dry Weight Start Date: 06/10/21 Status: Ordered rosuvastatin 20 mg oral tablet 1 tablet, By Mouth, Daily, # 90 tablet, 1 Refills, Maintenance, 08/15/21 14:24:00 EST, [facility]/pharmacy#[id number], 175.2, cm, 07/31/21 11:20:00 EST, Height, 88.3, kg, 03/12/21 9:16:00 EDT, Dry Weight Start Date: 08/15/21 Status: Ordered SEROquel 100 mg oral tablet 100 mg, 1, tablet, By Mouth, 2 times a day, # 60 tablet, Refills 2, Tot. Refills 2, Maintenance, 09/21/19 10:41:00 EDT, Route to Pharmacy Electronically, [facility]/pharmacy #[id number], 172, cm, 09/05/19 16:17:00 EST, Height, [...] 3 Refills, Maintenance, 12/18/21 14:33:00 EDT, Suspension, [facility]/pharmacy #[id number], 1 drops Eyes, Both 2 times [...] 60 UNITS/DAY, # 9 Unknown, 1 Refills, [facility], 175.2, cm, 07/31/21 11:20:00 EST, Height, 88.3, [...] Mouth, Daily, # 30 capsule, 5 Refills, [facility], 175.2, cm, 11/15/21 11:18:00 EDT, Height, 88.3, kg, 03/12/21 9:16:00 EDT, Dry Weight Start Date: 11/17/21 Status: Ordered Problem List Condition Effective Dates Status Health Status Inform ant Bipolar disorder(Confirmed) Active Cervical spondylosis(Confirmed) Active Chronic back pain DJD(Confirmed) Active Glomerulonephritis,mesangial proliferative/fibrillary(Confirmed) 1, 2 Active Chronic renal failure, stage 4 (severe)(Confirmed) Active ASHD; [place] 2012/stent circumfl ex 2013/3vessel cath;abdelrahman 2018(Confirmed) 3 Active Epididymal cyst rt(Confirmed) [...] mild to moderate. 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 2012/[place] 4secondary to hep C 524 weeks therapy with sofosbuvir/weight based ribavirin 30097 inferolateral stent bare metal circumflex 7DR Marissa morgan;Dr Schwartz 8hyperplatic polyp repeat screening in 2025 9repeat colonoscopy in 5 years Diagnosis Diagnosis Type Effective Dates Health Status Clinical Service Informant ASHD; [place] 2012/stent circumflex 2012/3vessel cath;abdelrahman 2018 Discharge Diagnosis 12/14/21 Chronic renal failure, stage 4 (severe) Discharge Diagnosis 12/14/21 Glomerulonephritis,m esangial proliferative/fibril shannan Discharge Diagnosis 12/14/21 Hypertension Discharge Diagnosis 12/14/21 Hyperlipidemia Discharge Diagnosis 12/14/21 Glaucoma of both eyes Discharge Diagnosis 12/18/21 Ex-cigarette smoker quit May 2019 Discharge Diagnosis 12/18/21 Vital Signs Most recent to oldest [Reference Range]: 1 Height 175.2 cm (12/18/21 2:10 PM) Social History Social History Type Response Smoking Status Former smoker, quit more than 30 days ago; Interested in cessation: No; Other: quit; Tobacco use times per day: prio 1/2-1 ppd; Total pack years: 38; Started at age: 12; Stopped at age: 63; entered on: 07/20/20 Sex
--- OUTSIDE RECORDS SUMMARY | 2024-06-01 11:57 | XMS_ITS | Continuity of Care Document ---
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) - 04/03/20 Attending Physician: Angeline RIVERA, Christina Allergies, Adverse Reactions, Alerts Substance Reaction Severity [...] 10:48:07 EST, Aerosol, Route to Pharmacy Electronically, [id number], [facility]/pharmacy #[id number], 180, cm, 06/17/19 10:36:11 EST, Height Start Date: 06/17/19 Status: Ordered aspirin 81 mg oral tablet 1 tablet = 81 mg, By Mouth, Daily, # 30 tablet, 11 Refills, Maintenance, 09/03/19 14:22:00 EST, Tablet, [facility]/pharmacy #[id number], 180, cm, 08/01/19 10:43:00 EST, Height [...] Refills, Maintenance, 01/02/20 15:47:00 EDT, CR Capsule, [facility]/pharmacy #[id number], 172, cm, 12/14/19 8:02:00 EDT, Height, 97.8, kg, 08/11/19 5:24:00 EST, Dry Weight Start Date: 01/02/20 Stop Date: 12/27/20 Status: Ordered cholecalciferol 2000 intl units oral capsule 1 capsule = 2,000 International_Units, By Mouth, Daily, # 30 capsule, 5 Refills, Maintenance, 11/02/19 10:15:00 EDT, Capsule, [facility]/pharmacy #[id number], 172, cm, 09/05/19 16:17:00 EST, Height, 97.8, kg, 08/11/19 5:24:00 EST, Dry Weight Start Date: 11/02/19 Status: Ordered cloNIDine 0.2 mg oral tablet 0.2 mg, 1, tablet, By Mouth, 2 times a day, # 60 tablet, Refills 2, Tot. Refills 2, Maintenance, 03/08/20 16:50:00 EDT, Route to Pharmacy Electronically, [facility]/pharmacy #[id number], 172, cm, 12/14/19 8:02:00EDT, Height, 97.8, kg, 08/11/19 5:24:00 EST, Dry We... Start Date: 03/08/20 Status: Ordered Colace sodium 100 mg oral capsule 100 mg, 1, capsule, By Mouth, 2 times a day, PRN, # 60 capsule, Refills 5, Tot. Refills 5, Maintenance, for constipation, 02/27/20 15:25:00 EDT, Route to Pharmacy Electronically, [facility]/pharmacy #[id number], 172, cm, 12/14/19 8:02:00 EDT, Height, 97.8, kg, 02/... Start Date: 02/27/20 Status: Ordered Crestor 20 mg oral tablet 1 tablet = 20 mg, By Mouth, Daily, # 90 tablet, 3 Refills, Maintenance, 01/02/20 15:46:00 EDT, Tablet, [facility]/pharmacy #[id number], 172, cm, 12/14/19 8:02:00 EDT, Height, 97.8, kg, 08/11/19 5:24:00 EST, Dry Weight Start Date: 01/02/20 Status: Ordered Daily Simone oral tablet 1 tablet, By Mouth, Daily, # 30 tablet, 5 Refills, Maintenance, 03/01/20 14:48:00 EDT, Tablet, [facility]/pharmacy #[id number], 1 tablet By Mouth Daily,x30 days, 172, cm, 12/14/19 8:02:00 EDT, Height, 97.8, kg, 08/11/19 5:24:00 EST, Dry Weight Start Date: 03/01/20 Stop Date: 08/28/20 Status: Ordered folic acid 1 mg oral tablet 1 mg, 1, tablet, By Mouth, Daily, # 30 tablet, Refills 5, Tot. Refills 5, Maintenance, 12/29/19 11:13:00 EDT, Route to Pharmacy Electronically, [facility]/pharmacy #[id number], 172, cm, 12/14/19 8:02:00 EDT, Height, [...] tablet, 5 Refills, Maintenance, 02/27/20 15:23:00 EDT, [facility]/pharmacy #[id number], 172, cm, 12/14/19 8:02:00 EDT, Height, 97.8, kg, 08/11/19 5:24:00 EST, Dry Weight Start Date: 02/27/20 Status: Ordered LaMICtal 100 mg oral tablet 100 mg, 1, tablet, By Mouth, 2 times a day, # 60 tablet, Refills 3, Tot. Refills 3, Maintenance, 01/21/19 11:25:36 EDT, Route to Pharmacy Electronically, [id number], [facility]/pharmacy #[id number] Start [...] 02/28/20 8:20:00 EDT, Route to Pharmacy Electronically, [facility]/pharmacy #[id number], 172, cm, 12/14/19 8:02:00 EDT, Height, 97.8, kg, 08/11/19 5:24:00 EST, Dry Weight Start Date: 02/28/20 Status: Ordered metoprolol 50 mg oral tablet 75 mg, 1.5, tablet, By Mouth, 2 times a day, stop metoprolol 50 mg twice daily, # 180 tablet, Refills 2, Tot. Refills 2, Maintenance, 01/02/20 15:45:00 EDT, Route to Pharmacy Electronically, [facility]/pharmacy #[id number], 172, cm, 12/14/19 8:02:00 EDT, Height, 9... Start Date: 01/02/20 Status: Ordered nicotine 2 mg oral transmucosal lozenge See Instructions, suck, up to q1 hrs 10 daily, # 144 lozenge, 1 Refills, Maintenance, 03/21/20 11:13:00 EDT, [facility]/pharmacy #[id number], suck, up to q1 hrs 10 daily, 172, cm, 03/21/20 11:04:00 EDT, Height, 97.8, kg, 08/11/19 5:24:00 EST, Dry Weight Start Date: 03/21/20 Status: Ordered nicotine 4 mg oral transmucosal lozenge 1 lozenge = 4 mg, By Mouth, Every hour, # 132 lozenge, 1 Refills, Maintenance, 11/29/19 8:13:00 EDT, [facility]/pharmacy #[id number], 1 lozenge By Mouth Every hour, [...] PAIN CALL 911 IF PAIN NOT RELIEVED, [facility]/pharmacy #[id number] Start Date: 02/17/19 Status: Ordered NovoLOG FlexPen 100 units/mL subcutaneous solution See Instructions, INJECT 0-18 UNITS SUBCUTANEOUSLY WITH MEALS FOR SLIDING SCALES, # 15 Unknown, 5 Refills, Soft Stop, 02/01/20 9:13:00 EDT, [facility]/pharmacy #[id number], 172, cm, 12/14/19 8:02:00 EDT, Height, 97.8, kg, 08/11/19 5:24:00 EST, Dry Weight Start Date: 02/01/20 Status: Ordered Ozempic (0.25 mg or 0.5 mg dose) 2 mg/1.5 mL subcutaneous solution See Instructions, INJECT 0.25 MG SUBCUTANEOUSLY WEEKLY, # 1.5 Unknown, 0 Refills, Maintenance, [facility] STORE [id number], 172, cm, 12/14/19 8:02:00 EDT, Height, 97.8, kg, 08/11/19 5:24:00 EST, Dry Weight Start Date: 02/09/20 Status: Ordered Pen [place], 31 G x 5 mm BD Ultra [...] EST, Tablet, this was previously sent to [facility] Start Date: 05/17/19 Stop Date: 05/11/20 Status: Ordered Tresiba FlexTouch 200 units/mL subcutaneous solution = 90 units, Subcutaneous Infusion, Daily, at bedtime, # 15 mL, 5 Refills, Maintenance, 08/04/19 13:13:00 EST, [facility]/pharmacy #[id number], 180, cm, 08/01/19 10:43:00 EST, Height Start Date: 08/04/19 Status: Ordered Problem List Condition Effective Dates Status Health Status Inform ant Acute pancreatitis(Confirmed) 07/16/16 Active Adenomatous colon polyp(Confirmed) Active Bipolar disorder(Confirmed) Active Cervical spondylosis(Confirmed) Active Chronic back pain DJD(Confirmed) Active Glomerulonephritis,mesangial proliferative/fibrillary(Confirmed) 1, 2 Active ASHD; [place] 2012/stent circumfl ex vessel cath;abdelrahman 2018(Confirmed) 3 Active Epididymal cyst rt(Confirmed) 04/18/19 Active Low serum vitamin D(Confirmed) Active Dizzinesses(Confirmed) Active Insulin long-term use(Confirmed) Active Dysphagia(Confirmed) Active Ex-smoker quit 2018/ t enrolled(Confirmed) Active Fibrillary glomerulonephritis(Confirmed) 4 Active [...] mild to moderate. 3MI 2012 circumflex stent 4secondary to hep C 524 weeks therapy with sofosbuvir/weight based ribavirin 02278 inferolateral stent bare metal circumflex 7DR Molddoverno sx;Dr Schwartz 8repeat colonoscopy in 5 years Diagnosis Diagnosis Type Effective Dates Health Status Clinical Service Informant Syncopal episodes Discharge Diagnosis 04/03/20 Dysphagia Discharge Diagnosis 04/03/20 Type 2 diabetes mellitus with diabetic nephropathy Discharge Diagnosis 04/03/20 Vital Signs Most recent to oldest [Reference Range]: 1 Height 172 cm (04/03/20 9:54 AM) Weight 84.7 kg (04/03/20 9:54 AM) Oxygen Saturation [94-100 %] 98 % (04/03/20 9:54 AM) Pulse Rate [55-90 bpm] 66 bpm (04/03/20 9:54 AM) Body Mass Index [18.5-24.99] 28.63 *H* (04/03/20 9:54 AM) Blood Pressure [90-138/55-84 mm Hg] 126/ 68mm Hg (04/03/20 9:54 AM) Respiratory Rate [16-30 br/min] 16 br/mi n (04/03/20 9:54 AM) Temperature [96.8-100.4 DegF] 97.7 DegF (04/03/20 9:54 AM) Mode of Delivery (Oxygen) Room air (04/03/20 9:54 AM) Blood pressure sites Arm, left (04/03/20 9:54 AM) Temperature Route Oral (04/03/20 9:54 AM) Weight Obtained Via Standing scale (04/03/20 9:54 AM) Social History Social History Type Response Smoking Status Former smoker, quit more than 30 days ago; Interested in cessation: Yes; Tobacco use times per day: 0.5-1 PPD; Total pack years: 38; Started at age: 12; Stopped at age: 63; entered on: 12/14/19 Sex
--- OUTSIDE RECORDS SUMMARY | 2024-06-01 11:57 | XMS_ITS | Continuity of Care Document ---
Author Organization [facility] Lazaro lt Address [address] [place] [address]- Care Team Providers Care Gasoline Truck Crane Operator Name Role Phone Carrie Kelly RIVERA Primary Care Physician [phone] Encounter [facility] Date(s): 06/02/23 - 07/02/23 [facility] Adult [address] [place] [address]- Allergies, Adverse Reactions, Alerts Substance Reaction Severity Status Bee Stings Active Immunizations Given and Recorded Vaccine Date Status Refusal Reason SARS-CoV-2(COVID-19)mRNA-LNP vac([id number]) 05/08/23 Recorded pneumococcal 20-valent conjugate vaccine 1 [...] 02/03/23 Recorded zoster vaccine, inactivated 08/09/19 Recorded [id number] 12y+ bivalent booster vax 05/17/22 Recorded SARS-CoV-2 [...] adult vaccine 4 12/10/10 Given 1Result Comment: [id number] 2Result Comment: [id number] 3Admin Note: pt waited 10 mins post inj no adverse reaction noted.j a 4Admin Note: PT WAITED 10 MIN WITH NO ADVERSE REACTION. MH Medications aspirin 81 mg oral delayed release tablet 1 tablet, By Mouth, Daily, # 90 tablet, 1 Refills, Maintenance, 06/02/23 11:42:00 EST, [facility]/pharmacy#[id number], 168, cm, 05/01/23 14:45:00 EDT, Height, 93, [...] capsule, 1 Refills, Maintenance, 06/30/23 7:20:00 EST, [facility] 34231, 168, cm, 05/01/23 14:45:00 EDT, Height, 93, kg, 01/28/22 14:55:00 EDT, Dry Weight Start Date: 06/30/23 Status: Ordered Daily Simone oral tablet 1 tablet, By Mouth, Daily, # 90 tablet, 1 Refills, Maintenance, 06/30/23 7:20:00 EST, [facility] 97851, 90, TAKE 1 TABLET BY MOUTH EVERY [...] Refills, Maintenance, 06/26/23 6:50:00 EST, [facility], 168, cm, 05/01/23 14:45:00 EDT, Height, 93, kg, 01/28/22 14:55:00 EDT, Dry Weight Start Date: 06/26/23 Status: Ordered folic acid 1 mg oral tablet 1, tablet, By Mouth, Daily, # 90 tablet, Refills 1, Tot. Refills 1, Maintenance, 01/08/23 13:00:00 EDT, Route to Pharmacy Electronically, [facility]/pharmacy #[id number], 175, cm, 10/09/22 16:51:00 EDT, [...] 01/21/19 11:25:36 EDT, Route to Pharmacy Electronically, [id number], [facility]/pharmacy #[id number] Start Date: 01/21/19 Stop Date: 05/21/19 Status: Ordered lamotrigine 100 mg oral tablet Refills 0, Maintenance, 05/01/23 15:28:00 EDT, Partial fill upon patient request if the prescription is for a schedule II opioid drug. Start Date: 05/01/23 Status: Ordered lisinopril 40 mg oral tablet 1 tablet, By Mouth, Daily, # 90 tablet, 0 Refills, Maintenance, 04/21/23 10:51:00 EDT, [facility] STORE 48083, 175, cm, 10/09/22 16:51:00 EDT, Height, 93, [...] Refills, Maintenance, 02/20/23 7:15:00 EDT, [facility], 175, cm, 10/09/22 16:51:00 EDT, Height, 93, [...] Weight Start Date: 11/07/22 Status: Ordered Pen [place], 31 G x 5 mm BD Ultra [...] capsule, 0 Refills, Maintenance, 06/02/23 14:17:00 EST, [facility]acy [id number], Partial fill upon patient request if the prescription is for a schedule II opioid drug., 168, cm, 05/01/23 14:45:00 EDT, Height, 93, k... Start Date: 06/02/23 Status: Ordered rosuvastatin 20 mg oral tablet 1 tablet, By Mouth, Daily, # 90 tablet, 1 Refills, Maintenance, 03/29/23 14:43:00 EDT, [facility], 175, cm, 10/09/22 16:51:00 EDT, Height, 93, [...] mild to moderate. 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 2012/[place] 4secondary to hep C 524 weeks therapy with sofosbuvir/weight based ribavirin 54896 inferolateral stent bare metal circumflex 7DR Marissa [...] Member Role: Lifetime Consulting Physician Address: Address: [address] [place] [address] [facility] [place] [address]- Name: Kelly Butler NP Position: [facility] PCO Associate Professional Member Role: PCP Address: Address: [address] [place] [address]- Name: Kristin Mckenzie Position: [facility] Outreach Member Role: Lifetime Consulting Physician Name: Prieto Tobin RN Position: [facility] RN Member Role: Primary Care Nurse Name: Jonn Hui DO Position: [facility] Renal MD Member Role: Lifetime Consulting Physician Address: Address: [address] [place], [place] [address] [place] [address]- Name: Zafar CALVO, Luis Angel Rojas Position: [facility] RN Member Role: Primary Care Nurse Care Team Related Persons Name: CARLOS A BORDEN Address: home [address] [place] [address] Name: LEVI BORDEN Address: home [address] [place] [address]
--- OUTSIDE RECORDS SUMMARY | 2024-06-01 11:57 | XMS_ITS | Continuity of Care Document ---
Author Organization [facility] Shawn Lazaro lt Address [address] [place] [address]- Care Team Providers Care Relay Checker Name Role Phone Aylin HICKMAN, Ben Willis Primary Care Physician [facility] - 01/05/20 [facility] Nando Escobar Adult [address] [place] [address]- [facility] Attending Physician: Not on Staff, Attending MD [...] 10:48:07 EST, Aerosol, Route to Pharmacy Electronically, [id number], [id number], 180, cm, 06/17/19 10:36:11 EST, Height Start Date: 06/17/19 Status: Ordered aspirin 81 mg oral tablet 1 tablet = 81 mg, By Mouth, Daily, # 30 tablet, 11 Refills, Maintenance, 09/03/19 14:22:00 EST, Tablet, [facility]/pharmacy #[id number], 180, cm, 08/01/19 10:43:00 EST, Height [...] Refills, Maintenance, 01/02/20 15:47:00 EDT, CR Capsule, [facility]/pharmacy #[id number], 172, cm, 12/14/19 8:02:00 EDT, Height, 97.8, kg, 08/11/19 5:24:00 EST, Dry Weight Start Date: 01/02/20 Stop Date: 12/27/20 Status: Ordered cholecalciferol 2000 intl units oral capsule 1 capsule = 2,000 International_Units, By Mouth, Daily, # 30 capsule, 5 Refills, Maintenance, 11/02/19 10:15:00 EDT, Capsule, [facility]/pharmacy #[id number], 172, cm, 09/05/19 16:17:00 EST, Height, 97.8, kg, 08/11/19 5:24:00 EST, Dry Weight Start Date: 11/02/19 Status: Ordered cloNIDine 0.2 mg oral tablet 0.2 mg, 1, tablet, By Mouth, 2 times a day, # 60 tablet, Refills 2, Tot. Refills 2, Maintenance, 01/02/20 15:44:00 EDT, Route to Pharmacy Electronically, [facility]/pharmacy #[id number], 172, cm, 12/14/19 8:02:00EDT, Height, 97.8, kg, 08/11/19 5:24:00 EST, Dry We... Start Date: 01/02/20 Status: Ordered Colace sodium 100 mg oral capsule 100 mg, 1, capsule, By Mouth, 2 times a day, PRN, # 60 capsule, Refills 5, Tot. Refills 5, Maintenance, for constipation, 04/25/19 13:50:52 EDT, Route to Pharmacy Electronically, [id number], [facility]/pharmacy #[id number] Start Date: 04/25/19 Status: Ordered Crestor 20 mg oral tablet 1 tablet = 20 mg, By Mouth, Daily, # 90 tablet, 3 Refills, Maintenance, 01/02/20 15:46:00 EDT, Tablet, [facility]/pharmacy #[id number], 172, cm, 12/14/19 8:02:00 EDT, Height, 97.8, kg, 08/11/19 5:24:00 EST, Dry Weight Start Date: 01/02/20 Status: Ordered Daily Simone oral tablet 1 tablet, By Mouth, Daily, # 30 tablet, 5 Refills, Maintenance, 09/21/19 10:41:00 EDT, Tablet, [facility]/pharmacy [...] 12/29/19 11:13:00 EDT, Route to Pharmacy Electronically, [facility]/pharmacy #[id number], 172, cm, 12/14/19 8:02:00 EDT, Height, [...] 01/21/19 11:25:36 EDT, Route to Pharmacy Electronically, [id number], [facility]/pharmacy #[id number] Start [...] tablet, Refills 1, Tot. Refills 1, Maintenance, 01/02/20 15:45:00 EDT, Route to Pharmacy Electronically, [facility]/pharmacy #[id number], 172, cm, 12/14/19 8:02:00 EDT, Height, 97.8, kg, 08/11/19 5:24:00 EST, Dry Weight Start Date: 01/02/20 Status: Ordered metoprolol 50 mg oral tablet 75 mg, 1.5, tablet, By Mouth, 2 times a day, stop metoprolol 50 mg twice daily, # 180 tablet, Refills 2, Tot. Refills 2, Maintenance, 01/02/20 15:45:00 EDT, Route to Pharmacy Electronically, [facility]/pharmacy #[id number], 172, cm, 12/14/19 8:02:00 EDT, Height, 9... Start Date: 01/02/20 Status: Ordered nicotine 4 mg oral transmucosal lozenge See Instructions, suck, up to q1 hrs 10 daily, # 144 lozenge, 1 Refills, Maintenance, 12/29/19 16:13:00 EDT, [facility]/pharmacy #[id number], suck, up to q1 hrs 10 daily, 172, cm, 12/14/19 8:02:00 EDT, Height, 97.8, kg, 08/11/19 5:24:00 EST, Dry Weight Start Date: 12/29/19 Status: Ordered nicotine 4 mg oral transmucosal lozenge 1 lozenge = 4 mg, By Mouth, Every hour, # 132 lozenge, 1 Refills, Maintenance, 11/29/19 8:13:00 EDT, [facility]/pharmacy #[id number], 1 lozenge By Mouth Every hour, [...] PAIN CALL 911 IF PAIN NOT RELIEVED, [facility]/pharmacy #[id number] Start Date: 02/17/19 Status: Ordered NovoLOG FlexPen 100 units/mL subcutaneous solution See Instructions, # 15 Unknown, Refills 5 Tot. Refills 5, INJECT 0-18 UNITS SUBCUTANEOUSLY WITH MEALS FOR SLIDING SCALES, [facility]/pharmacy #[id number] Start Date: 01/04/19 Status: Ordered Pen [place], 31 G x 5 mm BD Ultra [...] 0 Refills, Maintenance, 10/05/19 11:07:00 EDT, Solution, [facility]/pharmacy #[id number], 172, [...] EST, Tablet, this was previously sent to [facility] pharmacy Start Date: 05/17/19 Stop Date: 05/11/20 [...] impairment, st age 3 (moderate)(Confirmed) Active ASHD; [place] 2012/stent circumfl ex vessel cath;abdelrahman 2018(Confirmed) 3 Active Epididymal cyst rt(Confirmed) 04/18/19 Active Low serum vitamin D(Confirmed) Active Insulin long-term use(Confirmed) Active Ex-smoker quit 2018/ldc t enrolled(Confirmed) Active [...] mild to moderate. 3MI 2012 circumflex stent 2012/[place] 4secondary to hep C 524 weeks therapy with sofosbuvir/weight based ribavirin 92978 inferolateral stent bare metal circumflex 7DR Marissa [...]
--- OUTSIDE RECORDS SUMMARY | 2024-06-01 11:57 | XMS_ITS | Continuity of Care Document ---
Author Organization [facility] Nando Escobar Lazaro lt Address [address] [place] [address]- Care Team Providers Care Oil Field Technician Name Role Phone Carrie STEAM TRAP WORKERKelly Primary Care Physician Encounter [facility] Date(s): 02/14/22 - 02/21/22 [facility] Nando Escobar Adult [address] [place] [address]- Encounter Diagnosis Syncope(Discharge Diagnosis) - 02/14/22 Hypertension(Discharge Diagnosis) - 02/14/22 Chronic renal failure, stage 4 (severe)(Discharge Diagnosis) - 02/14/22 Attending Physician: Ben Viera MD Allergies, Adverse [...] capsule, 5 Refills, Maintenance, 06/05/21 15:57:00 EST, [facility]/pharmacy #[id number], 175.2, cm, 05/27/21 11:26:00 EST, Height, 88.3, kg, 03/12/21 9:16:00 EDT, Dry Weight Start Date: 06/05/21 Status: Ordered folic acid 1 mg oral tablet 1, tablet, By Mouth, Daily, # 30 tablet, Refills 5, Tot. Refills 5, Maintenance, 07/25/21 15:59:00 EST, Route to Pharmacy Electronically, [facility]/pharmacy #[id number], 175.2, cm, 06/07/21 9:51:00 [...] 01/21/19 11:25:36 EDT, Route to Pharmacy Electronically, [id number], [facility]/pharmacy #[id number] Start Date: 01/21/19 Stop Date: 05/21/19 Status: Ordered lisinopril 40 mg oral tablet 1 tablet = 40 mg, By Mouth, Daily, # 30 tablet, 3 Refills, Maintenance, 09/17/21 10:50:00 EDT, Tablet, [facility]/pharmacy #[id number], Partial fill upon patient request if the prescription is for a schedule II opioid drug., 175.2, cm, 07/31/21 11:20:00 EST, Heigh... Start Date: 09/17/21 Status: Ordered Metoprolol Tartrate 50 mg oral tablet 1.5 tablet, By Mouth, 2 times a day, # 270 tablet, 0 Refills, [facility], 175.2, cm, 11/15/21 11:18:00 EDT, Height, 88.3, kg, 03/12/21 9:16:00 EDT, Dry Weight Start Date: 12/12/21 Status: Ordered nicotine 21 mg/24 hr transdermal film, extended release 1 patch, Topically, Daily, for 30 days, # 30 patch, 1 Refills, Acute 04/18/22 14:19:00 EDT, 02/17/22 14:19:00 EDT, Patch, [id number], 1 patch Topically Daily,x30 days, 175, [...] SLIDING SCALES, # 15 Unknown, 2 Refills, [facility], 175.2, cm, 05/27/21 11:26:00 EST, Height, 88.3, kg, 03/12/21 9:16:00 EDT, Dry Weight Start Date: 06/04/21 Status: Ordered Pen [place], 31 G x 5 mm BD Ultra [...] capsule, 5 Refills, Maintenance, 11/19/21 11:25:00EDT, Capsule, [facility]/pharmacy #[id number], 175.2, cm, 11/15/21 11:18:00 EDT, Height, 88.3, kg, 03/12/21 9:16:00 EDT, Dry Weight Start Date: 11/19/21 Status: Ordered rosuvastatin 20 mg oral tablet 1 tablet, By Mouth, Daily, # 90 tablet, 1 Refills, [id number], 175, cm, 01/29/22 15:12:00 EDT,Height, 93, kg, 01/28/22 14:55:00 EDT, Dry Weight Start Date: 01/30/22 Status: Ordered SEROquel 100 mg oral tablet 100 mg, 1, tablet, By Mouth, 2 times a day, PRN, # 1 tablet, Refills 2, Tot. Refills 2, Maintenance, Anxiety, 09/21/19 10:41:00 EDT, Route to Pharmacy Electronically, [facility]/pharmacy #[id number], 172, cm, 09/05/19 16:17:00 [...] 3 Refills, Maintenance, 12/18/21 14:33:00 EDT, Suspension, [facility]/pharmacy #[id number], 1 drops Eyes, Both 2 times [...] # 30 capsule, 5 Refills, [facility], 175.2, cm, 11/15/21 11:18:00 EDT, Height, 88.3, kg, 03/12/21 9:16:00 EDT, Dry Weight Start Date: 11/17/21 Status: Ordered Problem List Condition Effective Dates Status Health Status Inform ant Bipolar disorder(Confirmed) Active Cervical spondylosis(Confirmed) Active Chronic back pain DJD(Confirmed) Active Glomerulonephritis,mesangial proliferative/fibrillary(Confirmed) 1, 2 Active Chronic renal failure, stage 4 (severe)(Confirmed) Active ASHD; [place] 2012/stent circumfl ex vessel [...] mild to moderate. 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 2013/[place] 4secondary to hep C 524 weeks therapy with sofosbuvir/weight based ribavirin 27933 inferolateral stent bare metal circumflex 7DR Marissa sx;Dr Schwartz 8hyperplatic polyp repeat screening in 2025 9repeat colonoscopy in 5 years Diagnosis Diagnosis Type Effective Dates Health Status Clinical Service Informant Syncope Discharge Diagnosis 02/14/22 Hypertension Discharge Diagnosis 02/14/22 Chronic renal failure, stage 4 (severe) Discharge Diagnosis 02/14/22 Procedures Procedure Date Related Diagnosis Body Site Status Chest X-ray nad 01/27/22 Completed Vital Signs Most recent to oldest [Reference Range]: 1 2 Height 175 cm (02/14/22 10:10 AM) 175 cm (02/14/22 9:46 AM) Weight 90.5 kg (02/14/22 9:46 AM) Oxygen Saturation [94-100 %] 100 % (02/14/22 9:46 AM) Pulse Rate [55-90 bpm] 63 bpm (02/14/22 9:46 AM) Body Mass Index [18.5-24.99] 29.55 *H* (02/14/22 9:46 AM) Blood Pressure [90-138/55-84 mm Hg] 150/ 74mm Hg *H* (02/14/22 9:46 AM) Respiratory Rate [16-30 br/min] 16 br/mi n (02/14/22 9:46 AM) Temperature [96.8-100.4 DegF] 97.9 DegF (02/14/22 9:46 AM) Mode of Delivery (Oxygen) Room air (02/14/22 9:46 AM) Blood pressure sites Arm, left (02/14/22 9:46 AM) Temperature Route Oral (02/14/22 9:46 AM) Weight Obtained Via Standing scale (02/14/22 9:46 AM) Social History Social History Type Response Smoking Status Former smoker, quit more than 30 days ago; Interested in cessation: No; Other: quit; Tobacco use times per day: prio 1/2-1 ppd; Total pack years: 38; Started at age: 12; Stopped at age: 63; entered on: 07/20/20 Sex
--- OUTSIDE RECORDS SUMMARY | 2024-06-01 11:57 | XMS_ITS | Continuity of Care Document ---
Author Organization [facility] Nando Escobar Lazaro lt Address [address] [place] [address]- Care Team Providers Care Gas Jockey Name Role Phone Carrie ASSESSMENT ANALYSTKelly Primary Care Physician [facility] Date[facility]s): 09/08/22 - 10/08/22 [facility] Nando Escobar Adult [address] [place] [address]- Allergies, Adverse Reactions, Alerts Substance Reaction Severity [...] influenza virus vaccine, inactivated 04/16/10 Give n [id number] 12y+ bivalent booster vax 05/17/22 Recorded SARS-CoV-2 [...] Refills, Maintenance, 05/21/22 13:33:00 EST, [facility], 175, cm, 05/09/22 11:08:00 EDT, Height, 93, [...] Gm, 0 Refills, Maintenance, 09/05/22 9:15:00 EST, [id number], Partial fill upon patient request if the prescription is for a schedule II opioid drug., 1 sprays Nares, Both 2 times a day, 175, c... Start Date: 09/05/22 Status: Ordered folic acid 1 mg oral tablet 1, tablet, By Mouth, Daily, # 30 tablet, Refills 5, Tot. Refills 5, Maintenance, 08/15/22 10:27:00 EST, Route to Pharmacy Electronically, [facility]/pharmacy #[id number], 175, cm, 07/17/22 10:33:00 [...] 01/21/19 11:25:36 EDT, Route to Pharmacy Electronically, [id number], [facility]/pharmacy #[id number] Start Date: 01/21/19 Stop Date: 05/21/19 Status: Ordered lisinopril 40 mg oral tablet 1 tablet, By Mouth, Daily, # 90 tablet, 1 Refills, Maintenance, 05/07/22 14:29:00 EDT, [facility], 175, cm, 04/08/22 8:34:00 EDT, Height, 93, kg, 01/28/22 14:55:00 EDT, Dry Weight Start Date: 05/07/22 Status: Ordered Metoprolol Tartrate 50 mg oral tablet 1.5 tablet, By Mouth, 2 times a day, # 270 tablet, 1 Refills, Maintenance, 09/01/22 13:28:00 EST, [facility], 175, cm, 07/17/22 10:33:00 EST, Height, 93, kg, 01/28/22 14:55:00 EDT, Dry Weight Start Date: 09/01/22 Status: Ordered Nicotine 7 mg/24 hour patch 1 patch, Topically, Daily, # 30 patch, 1 Refills, Maintenance, 09/26/22 7:49:00 EDT, Patch, [facility]/pharmacy #[id number], Partial fill upon patient [...] # 15 Unknown, 2 Refills, [facility], 175.2, cm, 05/27/21 11:26:00 EST, Height, 88.3, kg, 03/12/21 9:16:00 EDT, Dry Weight Start Date: 06/04/21 Status: Ordered Pen [place], 31 G x 5 mm BD Ultra [...] tablet, 1 Refills, Maintenance, 05/21/22 13:33:00 EST, [facility], 175, cm, 05/09/22 11:08:00 EDT, Height, 93, kg, 01/28/22 14:55:00 EDT, Dry Weight Start Date: 05/21/22 Status: Ordered SEROquel 100 mg oral tablet 100 mg, 1, tablet, By Mouth, 2 times a day, PRN, # 1 tablet, Refills 2, Tot. Refills 2, Maintenance, Anxiety, 09/21/19 10:41:00 EDT, Route to Pharmacy Electronically, [facility]/pharmacy #[id number], 172, cm, 09/05/19 16:17:00 [...] 9 Unknown, 1 Refills, 01/21/22 15:39:00 EDT, [facility]/pharmacy #[id number], 175.2, cm, 12/18/21 14:10:00 EDT, Height... Start Date: 01/21/22 Status: Ordered Trulicity Pen 0.75 mg/0.5 mL subcutaneous solution 0.5 mL = 0.75 mg, Subcutaneous Injection, Every week, # 2.5 mL, 2 Refills, Maintenance, 04/08/22 9:12:00 EDT, Solution, [facility]/pharmacy #[id number], Partial fill upon patient request if the prescription is for a schedule II opioid drug., 175, cm, 04/08/22 8:34... Start Date: 04/08/22 Status: Ordered Ventolin HFA 108 mcg/inh inhalation aerosol with adapter 2 puffs, Inhalation, Every 4 hours, PRN for wheezing, for 180 days, # 1 each, 0 Refills, Acute 03/05/23 16:25:00 EDT, 09/06/22 16:25:00 EST, Aerosol, [facility]/pharmacy #[id number], Partial fill upon patient [...] 4, GFR 15-29 ml/min Confirmed Active ASHD; [place] 2012/stent circumflex vessel cath;abdelrahman 2018 3 Confirmed [...] mild to moderate. 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 2012/[place] 4secondary to hep C 524 weeks therapy with sofosbuvir/weight based ribavirin 39967 inferolateral stent bare metal circumflex 7DR Marissa [...] Personnel Name: Darius HICKMAN, Jeffrey Lopez Position: [facility] Renal MD Member Role: Lifetime Consulting Physician Address: Address: [address] [place] [address] [facility] [place] [address]- Name: Kelly Butler NP Position: [facility] PCO Associate Professional Member Role: PCP Address: Address: [address] [place] [id number]- Name: Kristin Mckenzie Position: [facility] Outreach Member Role: Lifetime Consulting Physician Name: Prieto Tobin RN Position: [facility] RN Member Role: Primary Care Nurse Name: Jonn Hui DO Position: [facility] Renal MD Member Role: Lifetime Consulting Physician Address: Address: [address] [place], [place] [address] [place], [place] [address] Name: Luis Angel Stephen RN Position: [facility] RN Member Role: Primary Care Nurse Name: Tamie Baird RN Position: [facility] RN Member Role: Primary Care Nurse Care Team Related Persons Name: CARLOS A BORDEN Address: home [address] [place] [address] Name: LEVI BORDEN Address: home [address] [place] [address]
--- OUTSIDE RECORDS SUMMARY | 2024-06-01 11:57 | XMS_ITS | Continuity of Care Document ---
Author Organization [facility] Lazaro lt Address [address] [place] [address]- Care Team Providers Care Master Plumber Name Role Phone Ben Viera MD Primary Care Physician [phone] [facility] Date(s): 10/20/19 - 10/27/19 [facility] Adult [address] [place] [address]- [place] Encounter Diagnosis Chest pain(Discharge Diagnosis) - 10/20/19 Attending Physician: Ben Viera MD Allergies, Adverse [...] 10:48:07 EST, Aerosol, Route to Pharmacy Electronically, [id number], [facility]/pharmacy #[id number], 180, cm, 06/17/19 10:36:11 EST, Height Start Date: 06/17/19 Status: Ordered aspirin 81 mg oral tablet 1 tablet = 81 mg, By Mouth, Daily, # 30 tablet, 11 Refills, Maintenance, 09/03/19 14:22:00 EST, Tablet, [facility]/pharmacy #[id number], 180, cm, 08/01/19 10:43:00 EST, Height [...] Refills, Maintenance, 08/16/19 14:00:00 EST, CR Capsule, [facility]/pharmacy #[id number], 172, cm, 08/11/19 13:32:00 EST, Height, [...] 10/25/19 10:20:00 EDT, [facility] Electronically, [facility] [...] 04/25/19 13:50:52 EDT, Route to Pharmacy Electronically, [id number], [facility]/pharmacy #[id number] Start Date: 04/25/19 Status: Ordered Crestor 20 mg oral tablet 1 tablet = 20 mg, By Mouth, Daily, # 90 tablet, 3 Refills, Maintenance, 10/25/19 11:14:00 EDT, Tablet, [facility]/pharmacy #[id number], 172, cm, 09/05/19 16:17:00 EST, Height, 97.8, kg, 08/11/19 5:24:00 EST, Dry Weight Start Date: 10/25/19 Status: Ordered Daily Simone oral tablet 1 tablet, By Mouth, Daily, # 30 tablet, 5 Refills, Maintenance, 09/21/19 10:41:00 EDT, Tablet, [facility]/pharmacy [...] 02/14/19 16:39:14 EDT, Route to Pharmacy Electronically, [id number], [facility]/pharmacy #[id number] Start Date: 02/14/19 Status: Ordered Freestyle [...] 01/21/19 11:25:36 EDT, Route to Pharmacy Electronically, [id number], [facility]/pharmacy #[id number] Start [...] 06/21/19 14:10:15 EST, Route to Pharmacy Electronically, [facility]/pharmacy #[id number], 180, cm, 06/17/19 10:36:11 EST, Height Start Date: 06/21/19 Status: Ordered metoprolol 50 mg oral tablet 75 mg, 1.5, tablet, By Mouth, 2 times a day, stop metoprolol 50 mg twice daily, # 180 tablet, Refills 2, Tot. Refills 2, Maintenance, 08/26/19 9:30:00 EST, Route to Pharmacy Electronically, [facility]/pharmacy #[id number], 172, cm, 08/23/19 10:02:00 EST, Height, 9... Start Date: 08/26/19 Status: Ordered nicotine 4 mg oral transmucosal lozenge 1 lozenge = 4 mg, By Mouth, Every hour, # 132 lozenge, 1 Refills, Maintenance, 10/05/19 11:01:00 EDT, [facility]/pharmacy #[id number], 1 lozenge By Mouth Every hour, [...] #0843 Start Date: 01/04/19 Status: Ordered Pen [place], 31 G x 5 mm BD Ultra [...] EST, Tablet, this was previously sent to [facility] pharmacy Start Date: 05/17/19 Stop Date: 05/11/20 Status: Ordered Tresiba FlexTouch 200 units/mL subcutaneous solution = 90 units, Subcutaneous Infusion, Daily, at bedtime, # 15 mL, 5 Refills, Maintenance, 08/04/19 13:13:00 EST, [facility]/pharmacy #[id number], 180, cm, 08/01/19 10:43:00 EST, Height Start Date: 08/04/19 Status: Ordered Problem List Condition Effective Dates Status Health Status Inform ant Acute pancreatitis(Confirmed) 07/16/16 Active Adenomatous colon polyp(Confirmed) Active Bipolar disorder(Confirmed) Active Cervical spondylosis(Confirmed) Active Chronic back pain opiates pe r physiatry(Confirmed) Active Glomerulonephritis,mesangial proliferative/fibrillary(Confirmed) 1, 2 Active Chronic renal impairment, st age 3 (moderate)(Confirmed) Active ASHD; [place] 2012/stent circumfl ex vessel cath;abdelrahman 2018(Confirmed) 3 [...] mild to moderate. 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 2012/[place] 4secondary to hep C 524 weeks therapy with sofosbuvir/weight based ribavirin 29668 inferolateral stent bare metal circumflex 7DR Marissa saucedax;Dr Schwartz 8repeat colonoscopy in 5 years Diagnosis Diagnosis Type Effective Dates Health Status Clini ana Service Informant Chest pain Discharge Diagnosis 10/20/19 Social History Social History Type Response Smoking Status Former smoker, quit more than 30 days ago entered on: 12/22/18 Sex
--- OUTSIDE RECORDS SUMMARY | 2024-06-01 11:57 | XMS_ITS | Continuity of Care Document ---
Author Organization [facility] Shawn Lazaro lt Address [address] [place] [address]- Care Team Providers Care Side Piece Coverer Name Role Phone Ben Viera MD Primary Care Physician [phone] [place] [facility] [place]): [place]19 [place] 12/07/19 [facility] Adult [address] [place] [address]- [place] Encounter Diagnosis Chronic back pain DJD(Discharge Diagnosis) - 11/30/19 Attending Physician: Ben Viera MD Allergies, Adverse [...] 10:48:07 EST, Aerosol, Route to Pharmacy Electronically, [id number], [facility]/pharmacy #[id number], 180, cm, 06/17/19 10:36:11 EST, Height Start Date: 06/17/19 Status: Ordered aspirin 81 mg oral tablet 1 tablet = 81 mg, By Mouth, Daily, # 30 tablet, 11 Refills, Maintenance, 09/03/19 14:22:00 EST, Tablet, [facility]/pharmacy #[id number], 180, cm, 08/01/19 10:43:00 EST, [...] Refills, Maintenance, 08/16/19 14:00:00 EST, CR Capsule, [facility]/pharmacy #[id number], 172, cm, 08/11/19 13:32:00 EST, Height, 97.8, kg, 08/11/19 5:24:00 EST, Dry Weight Start Date: 08/16/19 Status: Ordered cholecalciferol 2000 intl units oral capsule 1 capsule = 2,000 International_Units, By Mouth, Daily, # 30 capsule, 5 Refills, Maintenance, 11/02/19 10:15:00 EDT, Capsule, [facility]/pharmacy #[id number], 172, cm, 09/05/19 16:17:00 EST, Height, 97.8, kg, 08/11/19 5:24:00 EST, Dry Weight Start Date: 11/02/19 Status: Ordered cloNIDine 0.2 mg oral tablet 0.2 mg, 1, tablet, By Mouth, 2 times a day, # 60 tablet, Refills 2, Tot. Refills 2, Maintenance, 10/25/19 10:20:00 EDT, Route to Pharmacy Electronically, [facility]/pharmacy #[id number], 172, cm, 09/05/19 16:17:00 EST, Height, 97.8, kg, 08/11/19 5:24:00 EST, Dry W... Start Date: 10/25/19 Status: Ordered Colace sodium 100 mg oral capsule 100 mg, 1, capsule, By Mouth, 2 times a day, PRN, # 60 capsule, Refills 5, Tot. Refills 5, Maintenance, for constipation, 04/25/19 13:50:52 EDT, Route to Pharmacy Electronically, [id number], [facility]/pharmacy #[id number] Start Date: 04/25/19 Status: Ordered Crestor 20 mg oral tablet 1 tablet = 20 mg, By Mouth, Daily, # 90 tablet, 3 Refills, Maintenance, 10/25/19 11:14:00 EDT, Tablet, [facility]/pharmacy #[id number], 172, cm, 09/05/19 16:17:00 EST, Height, 97.8, kg, 08/11/19 5:24:00 EST, Dry Weight Start Date: 10/25/19 Status: Ordered Daily Simone oral tablet 1 tablet, By Mouth, Daily, # 30 tablet, 5 Refills, Maintenance, 09/21/19 10:41:00 EDT, Tablet, [facility]/pharmacy #[id number], 1 tablet By Mouth Daily,x30 days, 172, cm, 09/05/19 16:17:00 EST, Height, 97.8, kg, 08/11/19 5:24:00 EST, Dry Weight Start Date: 09/21/19 Stop Date: 03/19/20 Status: Ordered folic acid 1 mg oral tablet 1 mg, 1, tablet, By Mouth, Daily, # 30 tablet, Refills 11, Tot. Refills 11, Maintenance, 02/14/19 16:39:14 EDT, Route to Pharmacy Electronically, [id number], [facility]/pharmacy #[id number] Start Date: 02/14/19 Status: Ordered [...] 01/21/19 11:25:36 EDT, Route to Pharmacy Electronically, [id number], [facility]/pharmacy #[id number] [...] 11/25/19 16:21:00 EDT, Route to Pharmacy Electronically, [facility]/pharmacy #[id number], 172, cm, 09/05/19 16:17:00 EST, Height, 97.8, kg, 08/11/19 5:24:00 EST, Dry Weight Start Date: 11/25/19 Status: Ordered metoprolol 50 mg oral tablet 75 mg, 1.5, tablet, By Mouth, 2 times a day, stop metoprolol 50 mg twice daily, # 180 tablet, Refills 2, Tot. Refills 2, Maintenance, 08/26/19 9:30:00 EST, Route to Pharmacy Electronically, [facility]/pharmacy #[id number], 172, cm, 08/23/19 10:02:00 EST, Height, 9... Start Date: 08/26/19 Status: Ordered nicotine 4 mg oral transmucosal lozenge See Instructions, suck, up to q1 hrs 10 daily, # 144 lozenge, 1 Refills, Maintenance, 06/15/19 11:49:35 EST, suck, up to q1 hrs 10 daily, 180, cm, 05/12/19 12:43:34 EST, Height Start Date: 06/15/19 Status: Ordered nicotine 4 mg oral transmucosal [...] #[id number] Start Date: 01/04/19 Status: Ordered [place], 31 G x 5 mm BD Ultra [...] 09/21/19 10:41:00 EDT, Route to Pharmacy Electronically, [facility]/pharmacy #[id number], 172, cm, 09/05/19 16:17:00 EST, [...] mL, 5 Refills, Maintenance, 08/04/19 13:13:00 EST, [facility]/pharmacy #[id number], 180, cm, 08/01/19 10:43:00 EST, Height Start Date: 08/04/19 Status: Ordered Problem List Condition Effective Dates Status Health Status Inform ant Acute pancreatitis(Confirmed) 07/16/16 Active Adenomatous colon polyp(Confirmed) Active Bipolar disorder(Confirmed) Active Cervical spondylosis(Confirmed) Active Chronic back pain DJD(Confirmed) Active Glomerulonephritis,mesangial proliferative/fibrillary(Confirmed) 1, 2 Active Chronic renal impairment, st age 3 (moderate)(Confirmed) Active ASHD; [place] 2012/stent circumfl ex vessel cath;abdelrahman 2018(Confirmed) 3 Active Epididymal cyst rt(Confirmed) 04/18/19 Active Low serum vitamin D(Confirmed) Active Insulin long-term use(Confirmed) Active Ex-smoker quit [facility] t enrolled(Confirmed) Active Fibrillary glomerulonephritis(Confirmed) [...] mild to moderate. 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
--- OUTSIDE RECORDS SUMMARY | 2024-06-01 11:57 | XMS_ITS | Continuity of Care Document ---
Author Organization [facility] Shawn Lazaro lt Address [address] [place] [address]- Care Team Providers Care Visual Merchandising Coordinator Name Role Phone Aylin HICKMAN, Ben [place] Primary Care Physician Encounter [facility] Date(s): 11/27/21 - 12/27/21 [facility] Nando Escobar Adult [address] [place] [address]- Allergies, Adverse Reactions, Alerts Substance Reaction Severity [...] Andrew rded influenza virus vaccine, inactivated 04/12/17 Anderw rded influenza virus vaccine, inactivated 04/16/16 Give [...] 06/24/21 12:51:00 EST, Route to Pharmacy Electronically, [facility]/pharmacy #[id number], 175.2, cm, 06/07/21 9:51:00 EST, Height, 88.3, kg, 03/12/21 9:16:00 EDT, Dry... Start Date: 06/24/21 Status: Ordered Daily Simone oral tablet 1 tablet, By Mouth, Daily, # 30 tablet, 5 Refills, Maintenance, 07/29/21 13:53:00 EST, Tablet, [facility]/pharmacy #[id number], 1 tablet By Mouth Daily,x30 days, 175.2, cm, 06/07/21 9:51:00 EST, Height, 88.3, kg,03/12/21 9:16:00 EDT, Dry Weight Start Date: 07/29/21 Stop Date: 01/25/22 Status: Ordered docusate sodium 100 mg oral capsule 1 capsule, By Mouth, 2 times a day, PRN NEEDED FOR CONSTIPATION, # 60 capsule, 5 Refills, Maintenance, 06/05/21 15:57:00 EST, [facility]/pharmacy #[id number], 175.2, cm, 05/27/21 11:26:00 EST, Height, 88.3, kg, 03/12/21 9:16:00 EDT, Dry Weight Start Date: 06/05/21 Status: Ordered folic acid 1 mg oral tablet 1, tablet, By Mouth, Daily, # 30 tablet, Refills 5, Tot. Refills 5, Maintenance, 07/25/21 15:59:00 EST, Route to Pharmacy Electronically, [facility]/pharmacy #[id number], 175.2, cm, 06/07/21 9:51:00 [...] tablet, 5 Refills, Maintenance, 06/05/21 15:57:00 EST, [facility]/pharmacy #[id number], 175.2, cm, 05/27/21 11:26:00 EST, Height, 88.3, kg, 03/12/21 9:16:00 EDT, Dry Weight Start Date: 06/05/21 Status: Ordered LaMICtal 100 mg oral tablet 100 mg, 1, tablet, By Mouth, 2 times a day, # 60 tablet, Refills 3, Tot. Refills 3, Maintenance, 01/21/19 11:25:36 EDT, Route to Pharmacy Electronically, [id number], [facility]/pharmacy #[id number] Start Date: 01/21/19 Stop Date: 05/21/19 Status: Ordered lisinopril 40 mg oral tablet 1 tablet = 40 mg, By Mouth, Daily, # 30 tablet, 3 Refills, Maintenance, 09/17/21 10:50:00 EDT, Tablet, [facility]/pharmacy #[id number], Partial fill upon patient request if the prescription is for a schedule II opioid drug., 175.2, cm, 07/31/21 11:20:00 ESTReji... Start Date: 09/17/21 Status: Ordered Metoprolol Tartrate 50 mg oral tablet 1.5 tablet, By Mouth, 2 times a day, # 270 tablet, 0 Refills, [facility] STORE 34710, 175.2, cm, 11/15/21 11:18:00 EDT, Height, 88.3, [...] # 15 Unknown, 2 Refills, [facility], 175.2, cm, 05/27/21 11:26:00 EST, Height, 88.3, kg, 03/12/21 9:16:00 EDT, Dry Weight Start Date: 06/04/21 Status: Ordered Pen [place], 31 G x 5 mm BD Ultra [...] 5 Refills, Maintenance, 06/10/21 12:32:00 EST, Capsule, [facility]/pharmacy #[id number], 175.2, cm, 06/07/21 9:51:00 EST, Height, 88.3, kg, 03/12/21 9:16:00 EDT, Dry Weight Start Date: 06/10/21 Status: Ordered rosuvastatin 20 mg oral tablet 1 tablet, By Mouth, Daily, # 90 tablet, 1 Refills, Maintenance, 08/15/21 14:24:00 EST, [facility]/pharmacy#[id number], 175.2, cm, 07/31/21 11:20:00 EST, Height, 88.3, kg, 03/12/21 9:16:00 EDT, Dry Weight Start Date: 08/15/21 Status: Ordered SEROquel 100 mg oral tablet 100 mg, 1, tablet, By Mouth, 2 times a day, # 60 tablet, Refills 2, Tot. Refills 2, Maintenance, 09/21/19 10:41:00 EDT, Route to Pharmacy Electronically, [facility]/pharmacy #[id number], 172, cm, 09/05/19 16:17:00 [...] 3 Refills, Maintenance, 12/18/21 14:33:00 EDT, Suspension, [facility]/pharmacy #[id number], 1 drops Eyes, Both [...] # 9 Unknown, 1 Refills, [facility], 175.2, cm, 07/31/21 11:20:00 EST, Height, 88.3, [...] # 30 capsule, 5 Refills, [facility], 175.2, cm, 11/15/21 11:18:00 EDT, Height, 88.3, kg, 03/12/21 9:16:00 EDT, Dry Weight Start Date: 11/17/21 Status: Ordered Problem List Condition Effective Dates Status Health Status Inform ant Bipolar disorder(Confirmed) Active Cervical spondylosis(Confirmed) Active Chronic back pain DJD(Confirmed) Active Glomerulonephritis,mesangial proliferative/fibrillary(Confirmed) 1, 2 Active Chronic renal failure, stage 4 (severe)(Confirmed) Active ASHD; [place] 2012/stent circumfl ex vessel cath;abdelrahman 2018(Confirmed) 3 [...] mild to moderate. 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
--- OUTSIDE RECORDS SUMMARY | 2024-06-01 11:57 | XMS_ITS | Continuity of Care Document ---
Author Organization [facility] Nando Escobar Lazaro lt Address [address] [place] [address]- Care Team Providers Care Welding Machine Operator Resistance Name Role Phone Carrie BUSINESS INTELLIGENCE ARCHITECTKelly Primary Care Physician [facility]counter [facility] Date(s): 09/16/23 - 10/16/23 [facility] Nando Escobar Adult [address] [place] [address]- Allergies, Adverse Reactions, Alerts Substance Reaction Severity Status Bee Stings Active Immunizations Given and Recorded Vaccine Date Status Refusal Reason SARS-CoV-2(COVID-19)mRNA-LNP vac([id number]) 05/08/23 Recorded pneumococcal 20-valent conjugate vaccine 1 [...] 02/03/23 Recorded zoster vaccine, inactivated 08/09/19 Recorded [id number] 12y+ bivalent booster vax 05/17/22 Recorded SARS-CoV-2 [...] adult vaccine 4 12/10/10 Given 1Result Comment: [id number] 2Result Comment: [id number] 3Admin Note: pt waited 10 mins post inj no adverse reaction noted.j a 4Admin Note: PT WAITED 10 MIN WITH NO ADVERSE REACTION. MH Medications aspirin 81 mg oral delayed release tablet 1 tablet, By Mouth, Daily, # 90 tablet, 1 Refills, Maintenance, 06/02/23 11:42:00 EST, [facility]/pharmacy#[id number], 168, cm, 05/01/23 14:45:00 EDT, Height, 93, [...] capsule, 1 Refills, Maintenance, 06/30/23 7:20:00 EST, [facility] STORE 01487, 168, cm, 05/01/23 14:45:00 EDT, Height, 93, kg, 01/28/22 14:55:00 EDT, Dry Weight Start Date: 06/30/23 Status: Ordered Daily Simone oral tablet 1 tablet, By Mouth, Daily, # 90 tablet, 1 Refills, Maintenance, 06/30/23 7:20:00 EST, [facility] STORE 88357, 90, TAKE 1 TABLET BY MOUTH EVERY [...] Refills, Maintenance, 06/26/23 6:50:00 EST, [facility], 168, cm, 05/01/23 14:45:00 EDT, Height, 93, kg, 01/28/22 14:55:00 EDT, Dry Weight Start Date: 06/26/23 Status: Ordered folic acid 1 mg oral tablet 1, tablet, By Mouth, Daily, # 90 tablet, Refills 1, Tot. Refills 1, Maintenance, 07/03/23 10:01:00 EST, Route to Pharmacy Electronically, [facility]/pharmacy #[id number], 168, cm, 05/01/23 14:45:00 EDT, [...] 01/21/19 11:25:36 EDT, Route to Pharmacy Electronically, [id number], [facility]/pharmacy #[id number] Start Date: 01/21/19 Stop Date: 05/21/19 Status: Ordered lamotrigine 100 mg oral tablet Refills 0, Maintenance, 05/01/23 15:28:00 EDT, Partial fill upon patient request if the prescription is for a schedule II opioid drug. Start Date: 05/01/23 Status: Ordered lisinopril 40 mg oral tablet 1 tablet, By Mouth, Daily, # 90 tablet, 1 Refills, Maintenance, 08/17/23 13:33:00 EST, [facility]/pharmacy#0843, 168, cm, 07/23/23 15:05:00 EST, Height, 93, kg, 01/28/22 14:55:00 EDT, Dry Weight Start Date: 08/17/23 Status: Ordered Metoprolol Tartrate 50 mg oral tablet 1.5 tablet, By Mouth, 2 times a day, # 270 tablet, 1 Refills, Maintenance, 09/16/23 14:32:00 EDT, [facility]/pharmacy #[id number], 168, cm, 07/23/23 15:05:00 EST, Height, 93, kg, 01/28/22 14:55:00 EDT, Dry Weight Start Date: 09/16/23 Status: Ordered nitroglycerin 0.4 mg sublingual tablet See Instructions, DISSOLVE 1 UNDER TONGUE EVERY 5 MINUTES NEEDED FOR CHEST PAIN CALL MD AFTER TAKING 3 TABS IN TOTAL IN A DAY, # 100 tablet, 0 Refills, Maintenance, 10/03/22 15:53:00 EDT, [facility]/pharmacy #[id number], 175, cm, 09/17/22 13:59:00 EDT, Height,... Start Date: 10/03/22 Status: Ordered NovoLOG FlexPen 100 units/mL injectable solution See Instructions, INJECT 0-18 UNITS SUBCUTANEOUSLY WITH MEALS FOR SLIDING SCALES, # 15 Unknown, 2 Refills, 11/07/22 0:09:00 EDT, [id number], 175, cm, 10/09/22 16:51:00 EDT, Height, 93, kg, 01/28/22 14:55:00 EDT, Dry Weight Start Date: 11/07/22 Status: Ordered Pen [place], 31 G x 5 mm BD Ultra [...] Refills, Maintenance, 03/29/23 14:43:00 EDT, [facility], 175, cm, 10/09/22 16:51:00 EDT, Height, 93, [...] ml/min Confirmed Active ASHD; [place] 2012/stent circumflex vessel cath;abdelrahman 2018 3 Confirmed [...] mild to moderate. 3MI 2012 circumflex stent 2013/[place] 4secondary to hep C 524 weeks therapy with sofosbuvir/weight based ribavirin 22530 inferolateral stent bare metal circumflex 7DR Molddoverno [...] Team Personnel Name: Jeffrey Mccoy MD Position: [facility] Renal MD Member Role: Lifetime Consulting Physician Address: Address: [address] [place] [address] [address] [facility] [place] [address]- [place] Name: Kelly Butler NP Position: [facility] PCO Associate Professional Member Role: PCP Address: Address: [address] [place] [address]- Name: Kristin Mckenzie Position: [facility] Outreach Member Role: Lifetime Consulting Physician Name: Prieto Tobin RN Position: [facility] RN Member Role: Primary Care Nurse Name: Jonn Hui DO Position: [facility] Renal MD Member Role: Lifetime Consulting Physician Address: Address: [address] [place] [address] [address] [facility] [place], [place] [address] Name: Zafar CALVO, Luis Angel Rojas Position: [facility] RN Member Role: Primary Care Nurse Care Team Related Persons Name: CARLOS A BORDEN Address: home [address] [place] [address] UM Name: LEVI BORDEN Address: home [address] [place] [address]
--- OUTSIDE RECORDS SUMMARY | 2024-06-01 11:57 | XMS_ITS | Continuity of Care Document ---
Author Organization [facility] Lazaro lt Address [address] [place] [address]- Care Team Providers Care Surface Grinder Name Role Phone Carrie Kelly RIVERA Primary Care Physician [phone] [place] [facility] [place]23 [facility] Adult [address] [place] [address]- Allergies, Adverse Reactions, Alerts Substance Reaction Severity Status Bee Stings Active Immunizations Given and Recorded Vaccine Date Status Refusal Reason SARS-CoV-2(COVID-19)mRNA-LNP vac([id number]) 05/08/23 Recorded pneumococcal 20-valent conjugate vaccine 1 [...] 02/03/23 Recorded zoster vaccine, inactivated 08/09/19 Recorded [id number] 12y+ bivalent booster vax 05/17/22 Recorded SARS-CoV-2 [...] adult vaccine 4 12/10/10 Given 1Result Comment: [id number] 2Result Comment: [id number] 3Admin Note: pt waited 10 mins post inj no adverse reaction noted.j a 4Admin Note: PT WAITED 10 MIN WITH NO ADVERSE REACTION. MH Medications aspirin 81 mg oral delayed release tablet 1 tablet, By Mouth, Daily, # 90 tablet, 1 Refills, Maintenance, 06/02/23 11:42:00 EST, [facility]/pharmacy#0843, 168, cm, 05/01/23 14:45:00 EDT, Height, 93, [...] capsule, 1 Refills, Maintenance, 06/30/23 7:20:00 EST, [facility] STORE 03044, 168, cm, 05/01/23 14:45:00 EDT, Height, 93, kg, 01/28/22 14:55:00 EDT, Dry Weight Start Date: 06/30/23 Status: Ordered Daily Simone oral tablet 1 tablet, By Mouth, Daily, # 90 tablet, 1 Refills, Maintenance, 06/30/23 7:20:00 EST, [facility] STORE 35223, 90, TAKE 1 TABLET BY MOUTH EVERY [...] Refills, Maintenance, 06/26/23 6:50:00 EST, [facility], 168, cm, 05/01/23 14:45:00 EDT, Height, 93, kg, 01/28/22 14:55:00 EDT, Dry Weight Start Date: 06/26/23 Status: Ordered folic acid 1 mg oral tablet 1, tablet, By Mouth, Daily, # 90 tablet, Refills 1, Tot. Refills 1, Maintenance, 07/03/23 10:01:00 EST, Route to Pharmacy Electronically, [facility]/pharmacy #[id number], 168, cm, 05/01/23 14:45:00 EDT, Height, [...] 01/21/19 11:25:36 EDT, Route to Pharmacy Electronically, [id number], [facility]/pharmacy #[id number] Start Date: 01/21/19 Stop Date: 05/21/19 Status: Ordered lamotrigine 100 mg oral tablet Refills 0, Maintenance, 05/01/23 15:28:00 EDT, Partial fill upon patient request if the prescription is for a schedule II opioid drug. Start Date: 05/01/23 Status: Ordered lisinopril 40 mg oral tablet 1 tablet, By Mouth, Daily, # 90 tablet, 0 Refills, Maintenance, 04/21/23 10:51:00 EDT, [facility] STORE 21687, 175, cm, 10/09/22 16:51:00 EDT, Height, 93, [...] Refills, Maintenance, 02/20/23 7:15:00 EDT, [facility], 175, cm, 10/09/22 16:51:00 EDT, Height, 93, kg, 01/28/22 14:55:00 EDT, Dry Weight Start Date: 02/20/23 Status: Ordered nicotine 14 mg/24 hr transdermal film, extended release See Instructions, apply to skin, # 14 patch, 1 Refills, Maintenance, 07/23/23 15:53:00 EST, Patch, [facility]/pharmacy #[id number], Partial fill upon patient request if [...] 15 Unknown, 2 Refills, 11/07/22 0:09:00 EDT, [facility]/pharmacy #[id number], 175, cm, 10/09/22 16:51:00 EDT, Height, 93, kg, 01/28/22 14:55:00 EDT, Dry Weight Start Date: 11/07/22 Status: Ordered Pen [place], 31 G x 5 mm BD Ultra [...] capsule, 2 Refills, Maintenance, 07/03/23 9:40:00 EST, [facility]/pharmacy #0843, Partial fill upon patient request if the prescription is for a schedule II opioid drug., 168, cm, 05/01/23 14:45:00 EDT, Height, 93, kg... Start Date: 07/03/23 Status: Ordered rosuvastatin 20 mg oral tablet 1 tablet, By Mouth, Daily, # 90 tablet, 1 Refills, Maintenance, 03/29/23 14:43:00 EDT, [facility], 175, cm, 10/09/22 16:51:00 EDT, Height, 93, [...] 4, GFR 15-29 ml/min Confirmed Active ASHD; [place] 2012/stent circumflex vessel cath;abdelrahman 2018 3 Confirmed [...] mild to moderate. 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 2013/[place] 4secondary to hep C 524 weeks therapy with sofosbuvir/weight based ribavirin 59359 inferolateral stent bare metal circumflex 7DR Molddoverno [...] Team Personnel Name: Jeffrey Mccoy MD Position: [facility] Renal MD Member Role: Lifetime Consulting Physician Address: Address: [address] [place] [address] [facility] [place] [address]- Name: Kelly Butler NP Position: [facility] PCO Associate Professional Member Role: PCP Address: Address: [address] [place] [address]- Name: Kristin Mckenzie Position: [facility] Outreach Member Role: Lifetime Consulting Physician Name: Prieto Tobin RN Position: [facility] RN Member Role: Primary Care Nurse Name: Jonn Hui DO Position: [facility] Renal MD Member Role: Lifetime Consulting Physician Address: Address: [address] [place], [place] [address] [place] [address]- Name: Luis Angel Stephen RN Position: [facility] RN Member Role: Primary Care Nurse Care Team Related Persons Name: CARLOS A BORDEN Address: [address] [place] [address] Name: LEVI BORDEN Address: [address] [place] [address]
--- OUTSIDE RECORDS SUMMARY | 2024-06-01 11:58 | XMS_ITS | Continuity of Care Document ---
Author Organization [facility] Address [address] [place] [address]- Care Team Providers Care Linen Tech Name Role Phone Carrie RIVERA, Kelly Lopez Primary Care Physician Encounter [facility] [place] Date(s): 07/04/22 - 08/30/22 [facility] [address] [place] [address]- Attending Physician: Olivier HICKMAN, Kaden Rojas Admitting Physician: Kaden Aguayo MD Referring Physician: Kelly Butler NP Allergies, Adverse [...] influenza virus vaccine, inactivated 04/16/10 Give n [id number] 12y+ bivalent booster vax 05/17/22 Recorded SARS-CoV-2 (COVID-19) mRNA-1273 vaccine 10/10/21 R ecorded SARS-CoV-2 (COVID-19) mRNA BNT-162b2 vac 04/29/21 Recorded SARS-CoV-2 (COVID-19) mRNA BNT-162b2 vac 10/10/20 Recorded SARS-CoV-2 (COVID-19) mRNA BNT-162b2 vac 09/19/20 Recorded Influenza Virus Vaccine (oldterm) 03/05/20 Recorde d zoster vaccine, inactivated 08/09/19 Recorded pneumococcal 23-valent vaccine 2/4/20 Recorded pneumococcal 23-valent vaccine 04/16/10 Given tetanus/diphtheria/pertussis, [...] tablet, 3 Refills, Maintenance, 09/30/21 12:28:00 EDT, [facility]/pharmacy#0843, 175.2, cm, 09/20/21 8:36:00 EDT, Height, 88.3, [...] 5 Refills, Maintenance, 08/15/22 10:27:00 EST, Tablet, [facility]/pharmacy #[id number], 1 tablet By Mouth Daily,x30 days, [...] capsule, 0 Refills, Maintenance, 05/21/22 13:33:00 EST, [facility], 175, cm, 05/09/22 11:08:00 EDT, Height, 93, kg, 01/28/22 14:55:00 EDT, Dry Weight Start Date: 05/21/22 Status: Ordered docusate sodium 100 mg oral capsule 1 capsule, By Mouth, 2 times a day, PRN NEEDED FOR CONSTIPATION, # 60 capsule, 5 Refills, Maintenance, 07/18/22 11:59:00 EST, [facility]/pharmacy #[id number], 175, cm, 07/17/22 10:33:00 EST, Height, 93, kg, 01/28/22 14:55:00 EDT, Dry Weight Start Date: 07/18/22 Status: Ordered folic acid 1 mg oral tablet 1, tablet, By Mouth, Daily, # 30 tablet, Refills 5, Tot. Refills 5, Maintenance, 08/15/22 10:27:00 EST, [id number] 175, cm, 07/17/22 10:33:00 EST, Height, [...] 01/21/19 11:25:36 EDT, Route to Pharmacy Electronically, [id number], [facility]/pharmacy #[id number] Start Date: 01/21/19 Stop Date: 05/21/19 Status: Ordered lisinopril 40 mg oral tablet 1 tablet, By Mouth, Daily, # 90 tablet, 1 Refills, Maintenance, 05/07/22 14:29:00 EDT, [facility] [address]01, 175, cm, 04/08/22 8:34:00 EDT, Height, 93, kg, 01/28/22 14:55:00 EDT, Dry Weight Start Date: 05/07/22 Status: Ordered Metoprolol Tartrate 50 mg oral tablet 1.5 tablet, By Mouth, 2 times a day, # 270 tablet, 0 Refills, 05/21/22 10:19:00 EST, [facility]/pharmacy #0843, 175, cm, 05/09/22 11:08:00 EDT, Height, 93, kg, 01/28/22 14:55:00 EDT, Dry Weight Start Date: 05/21/22 Status: Ordered Nicotine 7 mg/24 hour patch 1 patch, Topically, Daily, # 30 patch, 0 Refills, Acute 09/26/22 8:00:00 EDT, 08/29/22 16:51:00 EST, Patch, [facility]/pharmacy #[id number], Partial fill upon patient request if [...] tablet, 0 Refills, Maintenance, 12/31/21 17:21:00 EDT, [facility]/pharmacy #0843, 175.2, cm, 12/18/21 14:10:00 EDT, Height... Start Date: 12/31/21 Status: Ordered NovoLOG FlexPen 100 units/mL injectable solution See Instructions, INJECT 0-18 UNITS SUBCUTANEOUSLY WITH MEALS FOR SLIDING SCALES, # 15 Unknown, 2 Refills, [facility], 175.2, cm, 05/27/21 11:26:00 EST, Height, 88.3, kg, 03/12/21 9:16:00 EDT, Dry Weight Start Date: 06/04/21 Status: Ordered Pen [place], 31 G x 5 mm BD Ultra [...] capsule, 2 Refills, Maintenance, 08/07/22 12:55:00EST, Capsule, [facility]/pharmacy #0843, 175, cm, 07/17/22 10:33:00 EST, Height, 93, kg, 01/28/22 14:55:00EDT, Dry Weight Start Date: 08/07/22 Status: Ordered rosuvastatin 20 mg oral tablet 1 tablet, By Mouth, Daily, # 90 tablet, 1 Refills, Maintenance, 05/21/22 13:33:00 EST, [facility] 26638, 175, cm, 05/09/22 11:08:00 EDT, Height, 93, kg, 01/28/22 14:55:00 EDT, Dry Weight Start Date: 05/21/22 Status: Ordered SEROquel 100 mg oral tablet 100 mg, 1, tablet, By Mouth, 2 times a day, PRN, # 1 tablet, Refills 2, Tot. Refills 2, Maintenance, Anxiety, 09/21/19 10:41:00 EDT, Route to Pharmacy Electronically, [facility]/pharmacy #[id number], 172, cm, 09/05/19 16:17:00 EST, Height, [...] 524 weeks therapy with sofosbuvir/weight based ribavirin 43372 inferolateral stent bare metal circumflex 7DR Molddoverno [...] Team Personnel Name: Jeffrey Mccoy MD Position: [facility] Renal MD Member Role: Lifetime Consulting Physician Address: Address: [address] [place] [address] [facility] [place] [address]- Name: Kelly Butler NP Position: [facility] PCO Associate Professional Member Role: PCP Address: Address: [address] [place] [address]- Name: Kristin Mckenzie Position: [facility] Outreach Member Role: Lifetime Consulting Physician Name: Prieto Tobin RN Position: [facility] RN Member Role: Primary Care Nurse Name: Jonn Hui DO Position: [facility] Renal MD Member Role: Lifetime Consulting Physician Address: Address: [address] [place], [place] [address] [place] [address]- Name: Luis Angel Stephen RN Position: [facility] RN Member Role: Primary Care Nurse Name: Tamie Baird RN Position: S RN Member Role: Primary Care Nurse Care Team Related Persons Name: CARLOS A BORDEN Address: home [address] [place] [address] Name: LEVI BORDEN Address: home [address] [place] [address]
--- OUTSIDE RECORDS SUMMARY | 2024-06-01 11:58 | XMS_ITS | Continuity of Care Document ---
Author Organization [facility] Shawn Lazaro lt Address [address] [place] [address]- Care Team Providers Care Test Driver Name Role Phone Ben Viera MD Primary Care Physician [place] [facility] [place]19[place]20 - 04/18/20 [facility] Adult [address] [place] [address]- [facility] Attending Physician: Ben Viera MD Allergies, Adverse [...] 10:48:07 EST, Aerosol, Route to Pharmacy Electronically, [id number], [facility]/pharmacy #[id number], 180, cm, 06/17/19 10:36:11 EST, Height Start Date: 06/17/19 Status: Ordered aspirin 81 mg oral tablet 1 tablet = 81 mg, By Mouth, Daily, # 30 tablet, 11 Refills, Maintenance, 09/03/19 14:22:00 EST, Tablet, [facility]/pharmacy #[id number], 180, cm, 08/01/19 10:43:00 EST, Height [...] 01/02/20 15:47:00 EDT, CR Capsule, [facility]/pharmacy #[id number], 172, cm, 12/14/19 8:02:00 EDT, Height, 97.8, kg, 08/11/19 5:24:00 EST, Dry Weight Start Date: 01/02/20 Stop Date: 12/27/20 Status: Ordered cholecalciferol 2000 intl units oral capsule 1 capsule = 2,000 International_Units, By Mouth, Daily, # 30 capsule, 5 Refills, Maintenance, 11/02/19 10:15:00 EDT, Capsule, [facility]/pharmacy #[id number], 172, cm, 09/05/19 16:17:00 EST, Height, 97.8, kg, 08/11/19 5:24:00 EST, Dry Weight Start Date: 11/02/19 Status: Ordered cloNIDine 0.2 mg oral tablet 0.2 mg, 1, tablet, By Mouth, 2 times a day, # 60 tablet, Refills 2, Tot. Refills 2, Maintenance, 03/08/20 16:50:00 EDT, Route to Pharmacy Electronically, [facility]/pharmacy #[id number], 172, cm, 12/14/19 8:02:00EDT, Height, 97.8, kg, 08/11/19 5:24:00 EST, Dry We... Start Date: 03/08/20 Status: Ordered Colace sodium 100 mg oral capsule 100 mg, 1, capsule, By Mouth, 2 times a day, PRN, # 60 capsule, Refills 5, Tot. Refills 5, Maintenance, for constipation, 02/27/20 15:25:00 EDT, Route to Pharmacy Electronically, [facility]/pharmacy #[id number], 172, cm, 12/14/19 8:02:00 EDT, Height, 97.8, kg, 02/... Start Date: 02/27/20 Status: Ordered Crestor 20 mg oral tablet 1 tablet = 20 mg, By Mouth, Daily, # 90 tablet, 3 Refills, Maintenance, 01/02/20 15:46:00 EDT, Tablet, [facility]/pharmacy #[id number], 172, cm, 12/14/19 8:02:00 EDT, Height, 97.8, kg, 08/11/19 5:24:00 EST, Dry Weight Start Date: 01/02/20 Status: Ordered Daily Simone oral tablet 1 tablet, By Mouth, Daily, # 30 tablet, 5 Refills, Maintenance, 03/01/20 14:48:00 EDT, Tablet, [facility]/pharmacy #[id number], 1 tablet By Mouth Daily,x30 days, 172, cm, 12/14/19 8:02:00 EDT, Height, 97.8, kg, 08/11/19 5:24:00 EST, Dry Weight Start Date: 03/01/20 Stop Date: 08/28/20 Status: Ordered folic acid 1 mg oral tablet 1 mg, 1, tablet, By Mouth, Daily, # 30 tablet, Refills 5, Tot. Refills 5, Maintenance, 12/29/19 11:13:00 EDT, Route to Pharmacy Electronically, [facility]/pharmacy #[id number], 172, cm, 12/14/19 8:02:00 EDT, Height, [...] Refills, Maintenance, 02/27/20 15:23:00 EDT, [facility]/pharmacy #0843, 172, cm, 12/14/19 8:02:00 EDT, Height, 97.8, kg, 08/11/19 5:24:00 EST, Dry Weight Start Date: 02/27/20 Status: Ordered LaMICtal 100 mg oral tablet 100 mg, 1, tablet, By Mouth, 2 times a day, # 60 tablet, Refills 3, Tot. Refills 3, Maintenance, 01/21/19 11:25:36 EDT, Route to Pharmacy Electronically, [id number], [facility]/pharmacy #[id number] Start Date: 01/21/19 Stop Date: [...] 02/28/20 8:20:00 EDT, Route to Pharmacy Electronically, [facility]/pharmacy #[id number], 172, cm, 12/14/19 8:02:00 EDT, Height, 97.8, kg, 08/11/19 5:24:00 EST, Dry Weight Start Date: 02/28/20 Status: Ordered metoprolol 50 mg oral tablet 75 mg, 1.5, tablet, By Mouth, 2 times a day, stop metoprolol 50 mg twice daily, # 180 tablet, Refills 2, Tot. Refills 2, Maintenance, 01/02/20 15:45:00 EDT, Route to Pharmacy Electronically, [facility]/pharmacy #[id number], 172, cm, 12/14/19 8:02:00 EDT, Height, 9... Start Date: 01/02/20 Status: Ordered nicotine 2 mg oral transmucosal lozenge See Instructions, suck, up to q1 hrs 10 daily, # 144 lozenge, 1 Refills, Maintenance, 03/21/20 11:13:00 EDT, [facility]/pharmacy #[id number], suck, up to q1 hrs 10 daily, 172, cm, 03/21/20 11:04:00 EDT, Height, 97.8, kg, 08/11/19 5:24:00 EST, Dry Weight Start Date: 03/21/20 Status: Ordered nicotine 4 mg oral transmucosal lozenge 1 lozenge = 4 mg, By Mouth, Every hour, # 132 lozenge, 1 Refills, Maintenance, 11/29/19 8:13:00 EDT, [facility]/pharmacy #0843, 1 lozenge By Mouth Every hour, [...] 1.5 Unknown, 0 Refills, Maintenance, [facility], 172, cm, 12/14/19 8:02:00 EDT, Height, 97.8, kg, 08/11/19 5:24:00 EST, Dry Weight Start Date: 02/09/20 Status: Ordered Pen [place], 31 G x 5 mm BD Ultra [...] EDT, Route to Pharmacy Electronically, [facility]/pharmacy #[id number], 172, cm, 09/05/19 16:17:00 EST, [...] this was previously sent to [facility] pharmacy Start Date: 05/17/19 Stop Date: 05/11/20 Status: Ordered Tresiba FlexTouch 200 units/mL subcutaneous solution = 90 units, Subcutaneous Infusion, Daily, at bedtime, # 15 mL, 5 Refills, Maintenance, 08/04/19 13:13:00 EST, [facility]/pharmacy #[id number], 180, cm, 08/01/19 10:43:00 EST, Height Start Date: 08/04/19 Status: Ordered Problem List Condition Effective Dates Status Health Status Inform ant Acute pancreatitis(Confirmed) 07/16/16 Active Adenomatous colon polyp(Confirmed) Active Bipolar disorder(Confirmed) Active Cervical spondylosis(Confirmed) Active Chronic back pain DJD(Confirmed) Active Glomerulonephritis,mesangial proliferative/fibrillary(Confirmed) 1, 2 Active ASHD; [place] 2012/stent circumfl ex vessel [...] 524 weeks therapy with sofosbuvir/weight based ribavirin 25994 inferolateral stent bare metal circumflex 7DR Marissa [...]
--- OUTSIDE RECORDS SUMMARY | 2024-06-01 11:58 | XMS_ITS | Continuity of Care Document ---
Author Organization [facility] Lazaro lt Address [address] [place] [address]- Care Team Providers Care Digester Operator Name Role Phone Carrie Kelly RIVERA Primary Care Physician Encounter [facility] Date(s): 09/22/23 - 10/22/23 [facility] Adult [address] [place] [address]- Attending Physician: Admtr, Ar8 Admitting Physician: Admtr, Ar8 Referring Physician: Admtr, Ar8 Allergies, Adverse Reactions, Alerts Substance Reaction Severity Status Bee Stings Active Immunizations Given and Recorded Vaccine Date Status Refusal Reason tetanus/diphtheria/pertussis, acel(Tdap) 10/15/23 Recorded tetanus/diphtheria/pertussis, acel(Tdap) 07/28/11 Given SARS-CoV-2(COVID-19)mRNA-LNP vac([id number]) 05/08/23 Recorded pneumococcal 20-valent conjugate vaccine 1 [...] 02/03/23 Recorded zoster vaccine, inactivated 08/09/19 Recorded [id number] 12y+ bivalent booster vax 05/17/22 Recorded SARS-CoV-2 [...] adult vaccine 4 12/10/10 Given 1Result Comment: [id number] 2Result Comment: [id number] 3Admin Note: pt waited 10 mins post inj no adverse reaction noted.thierno kong 4Admin Note: PT WAITED 10 MIN WITH NO ADVERSE REACTION. Medications aspirin 81 mg oral delayed release tablet 1 tablet, By Mouth, Daily, # 90 tablet, 1 Refills, Maintenance, 06/02/23 11:42:00 EST, [facility]/pharmacy#[id number], 168, cm, 05/01/23 14:45:00 EDT, Height, [...] Refills, Maintenance, 06/30/23 7:20:00 EST, [facility], 168, cm, 05/01/23 14:45:00 EDT, Height, 93, kg, 01/28/22 14:55:00 EDT, Dry Weight Start Date: 06/30/23 Status: Ordered Daily Simone oral tablet 1 tablet, By Mouth, Daily, # 90 tablet, 1 Refills, Maintenance, 06/30/23 7:20:00 EST, [facility], 90, TAKE 1 TABLET BY MOUTH EVERY [...] Refills, Maintenance, 06/26/23 6:50:00 EST, [facility], 168, cm, 05/01/23 14:45:00 EDT, Height, 93, kg, 01/28/22 14:55:00 EDT, Dry Weight Start Date: 06/26/23 Status: Ordered folic acid 1 mg oral tablet 1, tablet, By Mouth, Daily, # 90 tablet, Refills 1, Tot. Refills 1, Maintenance, 07/03/23 10:01:00 EST, Route to Pharmacy Electronically, [facility]/pharmacy #[id number], 168, cm, 05/01/23 14:45:00 EDT, [...] 01/21/19 11:25:36 EDT, Route to Pharmacy Electronically, [id number], [facility]/pharmacy #[id number] Start Date: 01/21/19 Stop Date: 05/21/19 Status: Ordered lamotrigine 100 mg oral tablet Refills 0, Maintenance, 05/01/23 15:28:00 EDT, Partial fill upon patient request if the prescription is for a schedule II opioid drug. Start Date: 05/01/23 Status: Ordered lisinopril 40 mg oral tablet 1 tablet, By Mouth, Daily, # 90 tablet, 1 Refills, Maintenance, 08/17/23 13:33:00 EST, [facility]/pharmacy#0843, 168, cm, 07/23/23 15:05:00 EST, Height, 93, kg, 01/28/22 14:55:00 EDT, Dry Weight Start Date: 08/17/23 Status: Ordered Metoprolol Tartrate 50 mg oral tablet 1.5 tablet, By Mouth, 2 times a day, # 270 tablet, 1 Refills, Maintenance, 09/16/23 14:32:00 EDT, [facility]/pharmacy #[id number], 168, cm, 07/23/23 15:05:00 EST, Height, 93, kg, 01/28/22 14:55:00 EDT, Dry Weight Start Date: 09/16/23 Status: Ordered nitroglycerin 0.4 mg sublingual tablet See Instructions, DISSOLVE 1 UNDER TONGUE EVERY 5 MINUTES NEEDED FOR CHEST PAIN CALL MD AFTER TAKING 3 TABS IN TOTAL IN A DAY, # 100 tablet, 0 Refills, Maintenance, 10/03/22 15:53:00 EDT, [facility]/pharmacy #[id number], 175, cm, 09/17/22 13:59:00 EDT, Height,... Start Date: 10/03/22 Status: Ordered NovoLOG FlexPen 100 units/mL injectable solution See Instructions, INJECT 0-18 UNITS SUBCUTANEOUSLY WITH MEALS FOR SLIDING SCALES, # 15 Unknown, 2 Refills, 11/07/22 0:09:00 EDT, [id number], 175, cm, 10/09/22 16:51:00 EDT, Height, 93, kg, 01/28/22 14:55:00 EDT, Dry Weight Start Date: 11/07/22 Status: Ordered Pen [place], 31 G x 5 mm BD Ultra [...] Refills, Maintenance, 03/29/23 14:43:00 EDT, [facility], 175, cm, 10/09/22 16:51:00 EDT, Height, 93, [...] ml/min Confirmed Active ASHD; [place] 2012/stent circumflex 2012/vessel cath;abdelrahman 2018 3 Confirmed [...] 524 weeks therapy with sofosbuvir/weight based ribavirin 47372 inferolateral stent bare metal circumflex 7DR Marissa [...] Completed Echocardiogram ef55-60% inf hypokinesis 08/11/[address] of lumbar region djd 08/10/19 C ompleted Vital Signs Most recent to oldest [Reference [...] Team Personnel Name: Jeffrey Mccoy MD Position: [facility] Renal MD Member Role: Lifetime Consulting Physician Address: Address: [address] [place] [address] [address] [facility] [place], [place] [address] Name: Kelly Butler NP Position: [facility] PCO Associate Professional Member Role: PCP Address: Address: [address] [place] [address]- Name: Kristin Mckenzie Position: [facility] Outreach Member Role: Lifetime Consulting Physician Name: Prieto Tobin RN Position: [facility] RN Member Role: Primary Care Nurse Name: Jonn Hui DO Position: [facility] Renal MD Member Role: Lifetime Consulting Physician Address: Address: [address] [place] [address] [address] [facility] [place], [place] [address] Name: Luis Angel Stephen RN Position: [facility] RN Member Role: Primary Care Nurse Care Team Related Persons Name: CARLOS A BORDEN Address: home [address] [place] [address] Name: LEVI BORDEN Address: home [address] [place] [address]
--- OUTSIDE RECORDS SUMMARY | 2024-06-01 11:58 | XMS_ITS | Continuity of Care Document ---
Author Organization [facility] Shawn Lazaro lt Address [address] [place] [address]- Care Team Providers Care Packer And Carry Out Name Role Phone Aylin HICKMAN, Ben Willis Primary Care Physician Encounter [facility] Date(s): 03/22/21 - 04/21/21 [facility] Adult [address] [place] [address]- Allergies, Adverse Reactions, Alerts Substance Reaction Severity [...] tablet, 11 Refills, Maintenance, 06/26/20 12:19:00 EST, [facility] ST[id number], 175, cm, 06/25/20 16:11:00 EST, Height, 83.6, [...] Refills, Maintenance, 01/23/21 11:08:00 EDT, CR Capsule, [facility]/pharmacy #[id number], 175.3, cm, 01/21/21 12:58:00 EDT, Height, 83.6, kg, 04/23/20 17:46:00EDT, Dry Weight Start Date: 01/23/21 Stop Date: 01/18/22 Status: Ordered cholecalciferol 2000 intl units oral capsule 1 capsule = 2,000 International_Units, By Mouth, Daily, # 30 capsule, 5 Refills, Maintenance, 11/02/20 10:48:00 EDT, Capsule, [facility]/pharmacy #[id number], 175, cm, 09/21/20 11:29:00 EDT, Height, 83.6, kg, 04/23/20 17:46:00 EDT, Dry Weight Start Date: 11/02/20 Status: Ordered cloNIDine 0.2 mg oral tablet 0.2 mg, 1, tablet, By Mouth, 2 times a day, # 60 tablet, Refills 5, Tot. Refills 5, Maintenance, 02/28/21 10:13:00 EDT, Route to Pharmacy Electronically, [facility]/pharmacy #[id number], 175.3, cm, 01/21/21 12:58:00 EDT, Height, 83.6, kg, 04/23/20 17:46:00 EDT, Start Date: 02/28/21 Status: Ordered Daily Simone oral tablet 1 tablet, By Mouth, Daily, # 30 tablet, 5 Refills, Maintenance, 09/19/20 8:25:00 EDT, Tablet, [facility]/pharmacy #[id number], 1 tablet By Mouth Daily,x30 days, 175, cm, 07/20/20 10:29:00 EST, Height, 83.6, kg, 04/23/20 17:46:00 EDT, Dry Weight Start Date: 09/19/20 Stop Date: 03/18/21 Status: Ordered docusate sodium 100 mg oral capsule 1 capsule, By Mouth, 2 times a day, PRN NEEDED FOR CONSTIPATION, # 60 capsule, 5 Refills, Maintenance, 01/22/21 12:45:00 EDT, [facility], 175.3, cm, 01/21/21 12:58:00 EDT, Height, 83.6, kg, 04/23/20 17:46:00 EDT, Dry Weight Start Date: 01/22/21 Status: Ordered folic acid 1 mg oral tablet 1, tablet, By Mouth, Daily, # 30 tablet, Refills 5, Tot. Refills 0, Maintenance, 01/18/21 14:44:00 EDT, Route to Pharmacy Electronically, [facility], 175, cm, 12/24/20 11:20:00 EDT, Height, 83.6, [...] tablet, 5 Refills, Maintenance, 02/27/20 15:23:00 EDT, [id number], 172, cm, 12/14/19 8:02:00 EDT, Height, 97.8, kg, 08/11/19 5:24:00 EST, Dry Weight Start Date: 02/27/20 Status: Ordered LaMICtal 100 mg oral tablet 100 mg, 1, tablet, By Mouth, 2 times a day, # 60 tablet, Refills 3, Tot. Refills 3, Maintenance, 01/21/19 11:25:36 EDT, Route to Pharmacy Electronically, [id number], [facility]/pharmacy #[id number] Start Date: 01/21/19 Stop Date: 05/21/19 Status: Ordered latanoprost 0.005% ophthalmic solution 1 drops, Eyes, Both, Daily at bedtime, # 3 mL, 0 Refills, Maintenance, 02/02/19 16:23:39 EDT, OphthSolution, 1 drops Eyes, Both Daily at bedtime Start Date: 02/02/19 Status: Ordered lisinopril 40 mg oral tablet 1 tablet = 40 mg, By Mouth, Daily, 0 Refills, Maintenance, 02/11/21 9:12:00 EDT, Partial fill upon patient request if the prescription is for a schedule II opioid drug. Start Date: 02/11/21 Status: Ordered Metoprolol Tartrate 50 mg oral tablet 1.5 tablet, By Mouth, 2 times a day, # 270 tablet, 0 Refills, Maintenance, 03/22/21 12:39:00 EDT, [facility]/pharmacy #[id number], 175.2, cm, 03/18/21 10:48:00 EDT, Height, 88.3, kg, 03/12/21 9:16:00 EDT, Dry Weight Start Date: 03/22/21 Status: Ordered nicotine 2 mg oral transmucosal lozenge See Instructions, USE 1 LOZENGE UP TO EVERY 1 HOUR NEEDED FOR 10 DAYS, # 162 lozenge, 1 Refills,[facility] 43[facility], 10, USE 1 LOZENGE UP TO EVERY 1 HOUR NEEDED FOR 10 DAYS, 175.2, cm, 03/18/21 10:48:00 EDT, Height, 88.3, kg, 03/12/21 9:16:00 EDT,... Start Date: 04/15/21 Status: Ordered nitroglycerin 0.4 mg sublingual tablet 1 tablet = 0.4 mg, Sublingual, Every 5 minutes, PRN for chest pain, call MD after taking 3 tabs in total in a day, # 100 tablet, 0 Refills, Maintenance, 05/12/19 13:47:55 EST, Tablet Start Date: 05/12/19 Status: Ordered NovoLOG FlexPen 100 units/mL subcutaneous solution See Instructions, Give SQ insuline tid with meals if BS 101-120 2 units, 121- 150: 6 units, 151-180:8 units, 181-200: 10 units, 201-250: 12 units, 251-300: 15 units, 301-350: 18 units, > 350 call pcp, # 15 Unknown, 5 Refills, Soft Stop, 02/01/20 9:13:... Start Date: 02/01/20 Status: Ordered Pen [place], 31 G x 5 mm BD Ultra Fine III See Instructions, # 150 each, Refills 11, Tot. Refills 11, Maintenance, Test blood sugar 5 times daily, 08/24/20 16:35:00 EST, DM E11.9, Compound, 175, cm, 07/20/20 10:29:00 EST, Height, 83.6, kg, 04/23/20 17:46:00 EDT, Dry Weight Start Date: 08/24/20 Status: Ordered Pregabalin By Mouth, 0 Refills, Maintenance, 04/10/21 14:16:00 EDT Start Date: 04/10/21 Status: Ordered rosuvastatin 20 mg oral tablet 1 tablet, By Mouth, Daily, # 90 tablet, 1 Refills, Maintenance, 01/08/21 14:43:00 EDT, [facility]/pharmacy#[id number], 175, cm, 12/24/20 11:20:00 EDT, Height, 83.6, kg, 04/23/20 17:46:00 EDT, Dry Weight Start Date: 01/08/21 Status: Ordered SEROquel 100 mg oral tablet 100 mg, 1, tablet, By Mouth, 2 times a day, # 60 tablet, Refills 2, Tot. Refills 2, Maintenance, 09/21/19 10:41:00 EDT, Route to Pharmacy Electronically, [facility]/pharmacy #[id number], 172, cm, 09/05/19 16:17:00 EST, Height, [...] Tresiba FlexTouch 200 units/mL subcutaneous solution = 22 units, Subcutaneous Infusion, Daily, at bedtime, increase [...] 07/16/16 Active Adenomatous colon polyp colo noscopy 2016(Confirmed) Active Bipolar disorder(Confirmed) Active Cervical spondylosis(Confirmed) Active Chronic back pain DJD(Confirmed) Active Glomerulonephritis,mesangial proliferative/fibrillary(Confirmed) 1, 2 Active Cigarette smoker(Confirmed) Active ASHD; [place] 2012/stent circumfl ex vessel cath;abdelrahman 2018(Confirmed) 3 Active Epididymal cyst rt(Confirmed) 04/18/19 Active Low serum vitamin D(Confirmed) Active Dizzinesses(Confirmed) Active Insulin long-term use(Confirmed) Active Dysphagia(Confirmed) Active Fibrillary glomerulonephritis(Confirmed) 4 Active GERD with [...] Tubular adenoma of colon col onoscopy 2015(Confirmed) 8, 9 12/12/15 Active Type 2 diabetes [...] mild to moderate. 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
--- OUTSIDE RECORDS SUMMARY | 2024-06-01 11:58 | XMS_ITS | Continuity of Care Document ---
Author Organization [facility] [place] Lazaro lt Address [address] [place] [address]- Care Team Providers Care Supervisor Rough End Name Role Phone Carrie Kelly RIVERA Primary Care Physician [phone] Encounter [facility] Date(s): 12/01/23 - 12/31/23 [facility] [place] Adult [address] [place] [address]- Allergies, Adverse Reactions, Alerts Substance Reaction Severity Status Bee Stings Active Immunizations Given and Recorded Vaccine Date Status Refusal Reason tetanus/diphtheria/pertussis, acel(Tdap) 10/15/23 Recorded tetanus/diphtheria/pertussis, acel(Tdap) 07/28/11 Given SARS-CoV-2(COVID-19)mRNA-LNP vac([id number]) 05/08/23 Recorded pneumococcal 20-valent conjugate vaccine 1 [...] 02/03/23 Recorded zoster vaccine, inactivated 08/09/19 Recorded [id number] 12y+ bivalent booster vax 05/17/22 Recorded SARS-CoV-2 [...] adult vaccine 4 12/10/10 Given 1Result Comment: [id number] 2Result Comment: [id number] 3Admin Note: pt waited 10 mins post inj no adverse reaction noted.thierno kong 4Admin Note: PT WAITED 10 MIN WITH NO ADVERSE REACTION. MH Medications aspirin 81 mg oral delayed release tablet 1 tablet, By Mouth, Daily, # 90 tablet, 1 Refills, Maintenance, 06/02/23 11:42:00 EST, [facility]/pharmacy#[id number], 168, cm, 05/01/23 14:45:00 EDT, Height, 93, [...] tablet, 1 Refills, Maintenance, 06/30/23 7:20:00 EST, [facility] STORE 00187, 90, TAKE 1 TABLET BY MOUTH EVERY [...] Refills, Maintenance, 11/10/23 22:03:00 EDT, [facility], 168, cm, 10/27/23 15:34:00 EDT, Height, 93, kg, 01/28/22 14:55:00 EDT, Dry Weight Start Date: 11/10/23 Status: Ordered folic acid 1 mg oral tablet 1, tablet, By Mouth, Daily, # 90 tablet, Refills 1, Tot. Refills 1, Maintenance, 07/03/23 10:01:00 EST, Route to Pharmacy Electronically, [facility]/pharmacy #[id number], 168, cm, 05/01/23 14:45:00 EDT, [...] 01/21/19 11:25:36 EDT, Route to Pharmacy Electronically, [id number], [facility]/pharmacy #[id number] Start [...] tablet, 1 Refills, Maintenance, 08/17/23 13:33:00 EST, [facility]/pharmacy#[id number], 168, cm, 07/23/23 15:05:00 EST, Height, 93, kg, 01/28/22 14:55:00 EDT, Dry Weight Start Date: 08/17/23 Status: Ordered Metoprolol Tartrate 50 mg oral tablet 1.5 tablet, By Mouth, 2 times a day, # 270 tablet, 1 Refills, Maintenance, 09/16/23 14:32:00 EDT, [facility]/pharmacy #[id number], 168, cm, 07/23/23 15:05:00 EST, Height, 93, kg, 01/28/22 14:55:00 EDT, Dry Weight Start Date: 09/16/23 Status: Ordered nitroglycerin 0.4 mg sublingual tablet See Instructions, DISSOLVE 1 UNDER TONGUE EVERY 5 MINUTES NEEDED FOR CHEST PAIN CALL MD AFTER TAKING 3 TABS IN TOTAL IN A DAY, # 100 tablet, 0 Refills, Maintenance, 10/03/22 15:53:00 EDT, [facility]/pharmacy #[id number], 175, cm, 09/17/22 13:59:00 EDT, Height,... Start Date: 10/03/22 Status: Ordered NovoLOG FlexPen 100 units/mL injectable solution See Instructions, INJECT 0-18 UNITS SUBCUTANEOUSLY WITH MEALS FOR SLIDING SCALES, # 15 Unknown, 2 Refills, 11/07/22 0:09:00 EDT, [facility]/pharmacy #[id number], 175, cm, 10/09/22 16:51:00 EDT, Height, 93, kg, 01/28/22 14:55:00 EDT, Dry Weight Start Date: 11/07/22 Status: Ordered Pen [place], 31 G x 5 mm BD Ultra [...] Refills, Maintenance, 11/10/23 22:03:00 EDT, [facility], 168, cm, 10/27/23 15:34:00 EDT, Height, 93, [...] 524 weeks therapy with sofosbuvir/weight based ribavirin 54715 inferolateral stent bare metal circumflex 7DR Molddoverno [...] Team Personnel Name: Jeffrey Mccoy MD Position: [facility] Renal MD Member Role: Lifetime Consulting Physician Address: Address: [address] [place] [address] Dr [address] [facility] [place] [address]- Name: Kelly Butler NP Position: [facility] PCO Associate Professional Member Role: PCP Address: Address: [address] [place] [address]- Name: Kristin Mckenzie Position: [facility] Outreach Member Role: Lifetime Consulting Physician Name: Prieto Tobin RN Position: [facility] RN Member Role: Primary Care Nurse Name: Jonn Hui DO Position: [facility] Renal MD Member Role: Lifetime Consulting Physician Address: Address: [address] [place] [address] [address] [facility] [place] [place] [address] Name: Zafar CALVO, Luis Angel Rojas Position: [facility] RN Member Role: Primary Care Nurse Care Team Related Persons Name: CARLOS A BORDEN Address: home [address] [place] [address] Name: LEVI BORDEN Address: home [address] [place] [address]
--- OUTSIDE RECORDS SUMMARY | 2024-06-01 11:58 | XMS_ITS | Continuity of Care Document ---
Author Organization [facility] Shawn Lazaro lt Address [address] [place] [address]- Care Team Providers Care Floor Grinder Name Role Phone Carrie Kelly RIVERA Primary Care Physician Encounter [facility] Date(s): 02/02/24 - 03/03/24 [facility] Adult [address] [place] [address]- Allergies, Adverse Reactions, Alerts Substance Reaction Severity Status Bee Stings Active Immunizations Given and Recorded Vaccine Date Status Refusal Reason SARS-CoV-2(COVID-19)mRNA-LNP vac([id number]) 12/31/23 Recorded SARS-CoV-2(COVID-19)mRNA-LNP vac([id number]) 05/08/23 Recorded tetanus/diphtheria/pertussis, acel(Tdap) 10/15/23 Recorded tetanus/diphtheria/pertussis, [...] 02/03/23 Recorded zoster vaccine, inactivated 08/09/19 Recorded [id number] 12y+ bivalent booster vax 05/17/22 Recorded SARS-CoV-2 [...] adult vaccine 4 12/10/10 Given 1Result Comment: [id number] 2Result Comment: [id number] 3Admin Note: pt waited 10 mins post [...] day prn cough (Max 600 mg in j05-fyqq period), # 30 capsule, 0 Refills, Maintenance, [...] 02/29/24 11:18:00 EDT, Route to Pharmacy Electronically, [facility]/pharmacy #[id number], Partial fill upon patient request if the prescriptio... Start Date: 02/29/24 Stop Date: 03/14/24 Status: Ordered D3 50 mcg (2000 intl units) oral capsule 1 capsule, By Mouth, Daily, # 90 capsule, 0 Refills, Maintenance, 12/09/23 14:09:00 EDT, [facility]/pharmacy #[id number], 168, cm, 10/27/23 15:34:00 EDT, Height, 93, kg, 01/28/22 14:55:00 EDT, Dry Weight Start Date: 12/09/23 Status: Ordered Daily Simone oral tablet 1 tablet, By Mouth, Daily, # 90 tablet, 1 Refills, Maintenance, 01/25/24 16:01:00 EDT, [facility]/pharmacy#0843, 90, 1 tablet By Mouth Daily, 168, cm, 01/11/24 14:42:00 EDT, Height, 93, kg, 01/28/22 14:55:00 EDT, Dry Weight Start Date: 01/25/24 Status: Ordered dapagliflozin 10 mg oral tablet 1 tablet = 10 mg, By Mouth, Daily, # 30 tablet, 0 Refills, Maintenance, 01/11/24 14:46:00 EDT, Tablet, [facility]/pharmacy #[id number], Partial fill upon patient [...] 02/17/24 7:23:00 EDT, Route to Pharmacy Electronically, [facility]/pharmacy #[id number], 168, cm, 02/15/24 13:43:00 [...] 01/21/19 11:25:36 EDT, Route to Pharmacy Electronically, [id number], [facility]/pharmacy #[id number] Start Date: 01/21/19 Stop [...] tablet, 0 Refills, Maintenance, 10/03/22 15:53:00 EDT, [facility]/pharmacy #[id number], 175, cm, 09/17/22 13:59:00 EDT, Height,... Start Date: 10/03/22 Status: Ordered NovoLOG FlexPen 100 units/mL injectable solution See Instructions, INJECT 0-18 UNITS SUBCUTANEOUSLY WITH MEALS FOR SLIDING SCALES, # 15 Unknown, 2 Refills, 01/12/24 14:36:00 EDT, [facility]/pharmacy #[id number], MAX DAILY DOSE 54 UNITS, 168, [...] mL, 0 Refills, Maintenance, 02/02/24 15:28:00 EDT, [place], [facility]/pharmacy #[id number], Partial fill upon patient... Start Date: 02/02/24 Status: Ordered Pen [place], 31 G x 5 mm BD Ultra [...] Refills, Maintenance, 02/04/24 16:39:00 EDT, [facility], 168, cm, 02/03/24 10:41:00 EDT, Height Start Date: 02/04/24 Status: Ordered senna - oral tablet 2 tablet, By Mouth, Daily at bedtime, PRN for constipation, for 14 days, # 28 tablet, 0 Refills, Acute 03/14/24 11:19:00 EDT, 02/29/24 11:19:00 EDT, Tablet, [facility]/pharmacy #[id number], Partial fill upon patient [...] ml/min Confirmed Active ASHD; [place] 2012/stent circumflex 2012/vessel cath;abdelrahman 2018 3 Confirmed [...] mild to moderate. 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 524 weeks therapy with sofosbuvir/weight based ribavirin 26307 inferolateral stent bare metal circumflex 7DR Molddoida [...] Jeffrey Mccoy MD Position: [facility] Renal MD Member Role: Lifetime Consulting Physician Address: Address: [address] [place] [address] [address] [facility] [place], [place] [facility] Name: Kelly Butler NP Position: [facility] PCO Associate Professional Member Role: PCP Address: Address: [address] [place] [address]- Name: Kristin Mckenzie Position: [facility] Outreach Member Role: Lifetime Consulting Physician Name: Fortunato Sin RN Position: [facility] RN Member Role: Primary Care Nurse Name: Nury Watts RN Position: [facility] RN Member Role: Primary Care Nurse Name: Antonia Mena NP Position: [facility] Associate Professional Member Role: Lifetime Consulting Provider Address: Address: [address] [place], [place] [address]E [facility] [place], [place] - Name: Prieto Tobin RN Position: [facility] RN Member Role: Primary Care Nurse Name: Ashleigh Reynoso RN Position: [facility] RN Member Role: Primary Care Nurse Name: Jonn Hui DO Position: [facility] Renal MD Member Role: Lifetime Consulting Physician Address: Address: [address] [place] [address] [address] [facility] [place] [place] - Name: Luis Angel Stephen RN Position: [facility] RN Member Role: Primary Care Nurse Name: Brandan Nogueira RN Position: S RN Member Role: Primary Care Nurse Care Team Related Persons Name: CARLOS A BORDEN Address: [address] [place] [address] UM Name: LEVI BORDEN Address: [address] [place] [address]
--- OUTSIDE RECORDS SUMMARY | 2024-06-01 11:58 | XMS_ITS | Continuity of Care Document ---
Author Organization [facility] Shawn Lazaro lt Address [address] [place] [address]- Care Team Providers Care Lab Intern Name Role Phone Ben Viera MD Primary Care Physician Encounter [facility] Date(s): 12/14/19 - 12/21/19 [facility] Nando Palominoley Adult [address] [place] [address]- [facility] Encounter Diagnosis Cellulitis of left upper extremity(Discharge Diagnosis) - 12/14/19 Low back pain(Discharge Diagnosis) - 12/14/19 Bipolar disorder(Discharge Diagnosis) - 12/14/19 Hypertension(Discharge Diagnosis) - 12/14/19 Attending Physician: Kelly Butler NP Referring Physician: Ben Viera MD Allergies, Adverse [...] 10:48:07 EST, Aerosol, Route to Pharmacy Electronically, [id number], [facility]/pharmacy #[id number], 180, [...] Refills, Maintenance, 08/16/19 14:00:00 EST, CR Capsule, [facility]/pharmacy #[id number], 172, cm, 08/11/19 13:32:00 EST, Height, [...] 10/25/19 10:20:00 EDT, [facility] to Pharm[facility] Electronically, [facility] 04/25/19 13:50:52 EDT, Route to Pharmacy Electronically, [id number], [facility]/pharmacy #[id number] Start Date: 04/25/19 Status: Ordered Crestor 20 mg oral tablet 1 tablet = 20 mg, By Mouth, Daily, # 90 tablet, 3 Refills, Maintenance, 10/25/19 11:14:00 EDT, Tablet, [facility]/pharmacy #[id number], 172, cm, 09/05/19 16:17:00 EST, Height, 97.8, kg, 08/11/19 5:24:00 EST, Dry Weight Start Date: 10/25/19 Status: Ordered Daily Simone oral tablet 1 tablet, By Mouth, Daily, # 30 tablet, 5 Refills, Maintenance, 09/21/19 10:41:00 EDT, Tablet, [facility]/pharmacy [...] 02/14/19 16:39:14 EDT, Route to Pharmacy Electronically, [id number], [facility]/pharmacy #[id number] Start Date: 02/14/19 Status: Ordered Freestyle [...] 01/21/19 11:25:36 EDT, Route to Pharmacy Electronically, [id number], [facility]/pharmacy #[id number] Start [...] 11/25/19 16:21:00 EDT, Route to Pharmacy Electronically, [facility] 08/26/19 9:30:00 EST, Route to Pharmacy Electronically, [facility]/pharmacy #[id number], 172, cm, 08/23/19 10:02:00 EST, Height, [...] UNITS SUBCUTANEOUSLY WITH MEALS FOR SLIDING SCALES, [facility]/pharmacy #[id number] Start Date: 01/04/19 Status: Ordered Pen [place], 31 G x 5 mm BD Ultra [...] 0 Refills, Maintenance, 10/05/19 11:07:00 EDT, Solution, [facility]/pharmacy #0843, 172, [...] EST, Tablet, this was previously sent to [facility] pharmacy Start Date: 05/17/19 Stop Date: [...] impairment, st age 3 (moderate)(Confirmed) Active ASHD; [place] 2012/stent circumfl ex [...] mild to moderate. 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 524 weeks therapy with sofosbuvir/weight based ribavirin 53886 inferolateral stent bare metal circumflex 7DR Marissa saucedax;Dr Schwartz 8repeat colonoscopy in 5 years Diagnosis Diagnosis Type Effective Dates Health Status Clinical Service Informant Cellulitis of left upper extremity Discharge Diagnosis 12/14/19 Low back pain Discharge Diagnosis 12/14/19 Bipolar disorder Discharge Diagnosis 12/14/19 Hypertension Discharge Diagnosis 12/14/19 Vital Signs Most recent to oldest [Reference Range]: 1 2 Height 172 cm (12/14/19 8:02 AM) 172 cm (12/14/19 7:38 AM) Weight 92.3 kg (12/14/19 7:38 AM) Oxygen Saturation [94-100 %] 98 % (12/14/19 7:38 AM) Pulse Rate [55-90 bpm] 80 bpm (12/14/19 7:38 AM) Body Mass Index [18.5-24.99] 31.2 *>HHI* (12/14/19 7:38 AM) Blood Pressure [90-138/55-84 mm Hg] 148/ 84mm Hg *H* (12/14/19 8:02 AM) 138/78mm Hg (12/14/19 7:38 AM) Temperature [96.8-100.4 DegF] 98.1 DegF (12/14/19 7:38 AM) Blood pressure sites Arm, left (12/14/19 8:02 AM) Temperature Route Oral (12/14/19 7:38 AM) Social History Social History Type Response Smoking Status Former smoker, quit more than 30 days ago; Interested in cessation: Yes; Tobacco use times per day: 0.5-1 PPD; Total pack years: 38; Started at age: 12; Stopped at age: 63; entered on: 12/14/19 Sex
--- OUTSIDE RECORDS SUMMARY | 2024-06-01 11:58 | XMS_ITS | Continuity of Care Document ---
Demographics Address [address] [place] [address] Mobile Preferred Language so Marital Status Evangelical Affiliation Rastafari Race White Ethnic Group Not or Lati no Author Organization [facility] Address [address] [place] [address]- Care Team Providers Care Framer Name Role Phone Aylin HICKMAN, Ben Willis Primary Care Physician Encounter [facility] Date(s): 07/19/19 - 07/29/19 [facility] [address] [place] [address]- [place] Attending Physician: AdmRadha kate Admitting Physician: AdmtrRadha Referring Physician: Admtr, Ar8 Allergies, Adverse Reactions, [...] 10:48:07 EST, Aerosol, Route to Pharmacy Electronically, [id number], [id number], 180, cm, 06/17/19 10:36:11 EST, [...] 05/09/19 9:31:26 EST, Route to Pharmacy Electronically, [id number], [facility]/pharmacy #[id number] Start Date: 05/09/19 Status: Ordered Colace sodium 100 mg oral capsule 100 mg, 1, capsule, By Mouth, 2 times a day, PRN, # 60 capsule, Refills 5, Tot. Refills 5, Maintenance, for constipation, 04/25/19 13:50:52 EDT, Route to Pharmacy Electronically, [id number], [facility]/pharmacy #[id number] Start [...] 02/14/19 16:39:14 EDT, Route to Pharmacy Electronically, [id number], [id number] Start Date: 02/14/19 Status: Ordered Freestyle [...] 01/21/19 11:25:36 EDT, Route to Pharmacy Electronically, [id number], [facility]/pharmacy #[id number] Start [...] 02/28/19 16:02:16 EDT, Route to Pharmacy Electronically, [id number], [facility]/pharmacy #[id number] Start Date: 02/28/19 Status: Ordered nicotine 2 mg oral transmucosal lozenge 1 lozenge = 2 mg, By Mouth, Every 2 hours, SUCK UP TO Q1 HOURS 10 DAILY, # 144 lozenge, 2 Refills, Maintenance, 07/15/19 12:34:00 EST, [facility]/pharmacy #[id number], 1 lozenge By Mouth Every 2 [...] PAIN CALL 911 IF PAIN NOT RELIEVED, [facility]/pharmacy #[id number] Start Date: 02/17/19 Status: Ordered NovoLOG FlexPen 100 units/mL subcutaneous solution See Instructions, # 15 Unknown, Refills 5 Tot. Refills 5, INJECT 0-18 UNITS SUBCUTANEOUSLY WITH MEALS FOR SLIDING SCALES, [id number] Start Date: 01/04/19 Status: Ordered Pen [place], 31 G x 5 mm BD Ultra [...] 01/21/19 11:26:23 EDT, Route to Pharmacy Electronically, [id number], [facility]/pharmacy #[id number] Start Date: 01/21/19 Status: Ordered SEROquel [...] EST, Tablet, this was previously sent to [facility] Start Date: 05/17/19 Stop Date: [...] impairment, st age 3 (moderate)(Confirmed) Active SASHDMI 2013/stent circumfle x vessel cath;abdelrahman 2018(Confirmed) 3 Active [...] 524 weeks therapy with sofosbuvir/weight based ribavirin 98529 inferolateral stent bare metal circumflex 7DR Marissa saucedax;Dr Schwartz 8repeat colonoscopy in 5 years Social History Social History Type Response Smoking Status Former smoker, quit more than 30 days ago entered on: 12/22/18 Sex
--- OUTSIDE RECORDS SUMMARY | 2024-06-01 11:58 | XMS_ITS | Continuity of Care Document ---
Author Organization [facility] Shawn Lazaro lt Address [address] [place] [address]- Care Team Providers Care Precision Layout Worker Name Role Phone Carrie Kelly RIVERA Primary Care Physician Encounter [facility] [place] Date(s): 07/02/23 - 08/01/23 [facility] Adult [address] [place] [address]- Allergies, Adverse Reactions, Alerts Substance Reaction Severity Status Bee Stings Active Immunizations Given and Recorded Vaccine Date Status Refusal Reason SARS-CoV-2(COVID-19)mRNA-LNP vac([id number]) 05/08/23 Recorded pneumococcal 20-valent conjugate vaccine 1 [...] 02/03/23 Recorded zoster vaccine, inactivated 08/09/19 Recorded [id number] 12y+ bivalent booster vax 05/17/22 Recorded SARS-CoV-2 [...] adult vaccine 4 12/10/10 Given 1Result Comment: [id number] 2Result Comment: [id number] 3Admin Note: pt waited 10 mins post inj no adverse reaction noted.j a 4Admin Note: PT WAITED 10 MIN WITH NO ADVERSE REACTION. MH Medications aspirin 81 mg oral delayed release tablet 1 tablet, By Mouth, Daily, # 90 tablet, 1 Refills, Maintenance, 06/02/23 11:42:00 EST, [facility], 168, cm, 05/01/23 14:45:00 EDT, Height, 93, [...] capsule, 1 Refills, Maintenance, 06/30/23 7:20:00 EST, [facility], 168, cm, 05/01/23 14:45:00 EDT, Height, 93, kg, 01/28/22 14:55:00 EDT, Dry Weight Start Date: 06/30/23 Status: Ordered Daily Simone oral tablet 1 tablet, By Mouth, Daily, # 90 tablet, 1 Refills, Maintenance, 06/30/23 7:20:00 EST, [facility]156, 90, TAKE 1 TABLET BY MOUTH EVERY [...] Refills, Maintenance, 06/26/23 6:50:00 EST, [facility], 168, cm, 05/01/23 14:45:00 EDT, Height, 93, kg, 01/28/22 14:55:00 EDT, Dry Weight Start Date: 06/26/23 Status: Ordered folic acid 1 mg oral tablet 1, tablet, By Mouth, Daily, # 90 tablet, Refills 1, Tot. Refills 1, Maintenance, 07/03/23 10:01:00 EST, Route to Pharmacy Electronically, [id number], 168, cm, 05/01/23 14:45:00 EDT, Height, [...] 01/21/19 11:25:36 EDT, Route to Pharmacy Electronically, [id number], [id number] Start Date: 01/21/19 Stop Date: 05/21/19 Status: Ordered lamotrigine 100 mg oral tablet Refills 0, Maintenance, 05/01/23 15:28:00 EDT, Partial fill upon patient request if the prescription is for a schedule II opioid drug. Start Date: 05/01/23 Status: Ordered lisinopril 40 mg oral tablet 1 tablet, By Mouth, Daily, # 90 tablet, 0 Refills, Maintenance, 04/21/23 10:51:00 EDT, [facility], 175, cm, 10/09/22 16:51:00 EDT, Height, 93, [...] Refills, Maintenance, 02/20/23 7:15:00 EDT, [facility], 175, cm, 10/09/22 16:51:00 EDT, Height, 93, kg, 01/28/22 14:55:00 EDT, Dry Weight Start Date: 02/20/23 Status: Ordered nicotine 14 mg/24 hr transdermal film, extended release See Instructions, apply to skin, # 14 patch, 1 Refills, Maintenance, 07/23/23 15:53:00 EST, Patch, [id number], Partial fill [...] 15 Unknown, 2 Refills, 11/07/22 0:09:00 EDT, [id number], 175, cm, 10/09/22 16:51:00 EDT, Height, 93, kg, 01/28/22 14:55:00 EDT, Dry Weight Start Date: 11/07/22 Status: Ordered Pen [place], 31 G x 5 mm BD Ultra [...] capsule, 2 Refills, Maintenance, 07/03/23 9:40:00 EST, [facility]/pharmacy [facility][id number], Partial fill upon patient request if the prescription is for a schedule II opioid drug., 168, cm, 05/01/23 14:45:00 EDT, Height, 93, kg... Start Date: 07/03/23 Status: Ordered rosuvastatin 20 mg oral tablet 1 tablet, By Mouth, Daily, # 90 tablet, 1 Refills, Maintenance, 03/29/23 14:43:00 EDT, [facility], 175, cm, 10/09/22 16:51:00 EDT, Height, 93, [...] 4, GFR 15-29 ml/min Confirmed Active ASHD; [place] 2012/stent circumflex vessel cath;abdelrahman 2018 3 Confirmed [...] mild to moderate. 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 2013/CT 4secondary to hep C 524 weeks therapy with sofosbuvir/weight based ribavirin 23948 inferolateral stent bare metal circumflex 7DR Molddoverno [...] Team Personnel Name: Jeffrey Mccoy MD Position: [facility] Renal MD Member Role: Lifetime Consulting Physician Address: Address: [address] [place] [address] [facility] [place] [address]- Name: Kelly Butler NP Position: [facility] PCO Associate Professional Member Role: PCP Address: Address: [address] [place] [id number]- Name: Kristin Mckenzie Position: [facility] Outreach Member Role: Lifetime Consulting Physician Name: Prieto Tobin RN Position: [facility] RN Member Role: Primary Care Nurse Name: Jonn Hui DO Position: [facility] Renal MD Member Role: Lifetime Consulting Physician Address: Address: [address] [place], [place] [address] [place] [address]- Name: Luis Angel Stephen RN Position: [facility] ED RN W/OE and Tasks Member Role: Primary Care Nurse Care Team Related Persons Name: CARLOS A BORDEN Address: [address] [place] [address] UM Name: LEVI BORDEN Address: home [address] [place] [address]
--- OUTSIDE RECORDS SUMMARY | 2024-06-01 11:58 | XMS_ITS | Continuity of Care Document ---
Author Organization [facility] Address [address] [place] [address]- Care Team Providers Care Creative Lead Name Role Phone Aylin HICKMAN, Ben Wlilis Primary Care Physician [phone] Encounter [facility] [place] Date(s): 01/15/21 - 02/14/21 [facility] [address] [place] [id number] Allergies, Adverse Reactions, Alerts Substance Reaction Severity [...] 10:48:07 EST, Aerosol, Route to Pharmacy Electronically, [id number], [facility]/pharmacy #[id number], 180, cm, 06/17/19 10:36:11 EST, Height Start Date: 06/17/19 Status: Ordered aspirin 81 mg oral delayed release tablet 1 tablet, By Mouth, Daily, # 30 tablet, 11 Refills, Maintenance, 06/26/20 12:19:00 EST, [facility], 175, cm, 06/25/20 16:11:00 EST, Height, 83.6, [...] Refills, Maintenance, 01/23/21 11:08:00 EDT, CR Capsule, [facility]/pharmacy #[id number], 175.3, cm, 01/21/21 12:58:00 EDT, Height, 83.6, kg, 04/23/20 17:46:00EDT, Dry Weight Start Date: 01/23/21 Stop Date: 01/18/22 Status: Ordered cholecalciferol 2000 intl units oral capsule 1 capsule = 2,000 International_Units, By Mouth, Daily, # 30 capsule, 5 Refills, Maintenance, 11/02/20 10:48:00 EDT, Capsule, [facility]/pharmacy #[id number], 175, cm, 09/21/20 11:29:00 EDT, Height, 83.6, kg, 04/23/20 17:46:00 EDT, Dry Weight Start Date: 11/02/20 Status: Ordered cloNIDine 0.2 mg oral tablet 0.2 mg, 1, tablet, By Mouth, 2 times a day, # 60 tablet, Refills 5, Tot. Refills 5, Maintenance, 09/09/20 19:43:00 EST, Route to Pharmacy Electronically, [facility]/pharmacy #[id number], 175, cm, 07/20/20 10:29:00 EST, Height, 83.6, kg, 04/23/20 17:46:00 EDT, Dry... Start Date: 09/09/20 Status: Ordered Daily Simone oral tablet 1 tablet, By Mouth, Daily, # 90 tablet, 3 Refills, Maintenance, 09/21/20 11:35:00 EDT, Tablet, [facility]/pharmacy #0843, Partial fill upon patient request if the prescription is for a schedule II opioid drug., 1 tablet By Mouth Daily, 175, cm, 09/21/20 11:2... Start Date: 09/21/20 Status: Ordered Daily Simone oral tablet 1 tablet, By Mouth, Daily, # 30 tablet, 5 Refills, Maintenance, 09/19/20 8:25:00 EDT, Tablet, [facility]/pharmacy #0843, 1 tablet By Mouth Daily,x30 days, 175, cm, 07/20/20 10:29:00 EST, Height, 83.6, kg, 04/23/20 17:46:00 EDT, Dry Weight Start Date: 09/19/20 Stop Date: 03/18/21 Status: Ordered docusate sodium 100 mg oral capsule 1 capsule, By Mouth, 2 times a day, PRN NEEDED FOR CONSTIPATION, # 60 capsule, 5 Refills, Maintenance, 01/22/21 12:45:00 EDT, [facility], 175.3, cm, 01/21/21 12:58:00 EDT, Height, 83.6, kg, 04/23/20 17:46:00 EDT, Dry Weight Start Date: 01/22/21 Status: Ordered folic acid 1 mg oral tablet 1, tablet, By Mouth, Daily, # 30 tablet, Refills 5, Tot. Refills 0, Maintenance, 01/18/21 14:44:00 EDT, Route to Pharmacy Electronically, [facility], 175, cm, 12/24/20 11:20:00 EDT, Height, 83.6, [...] mL, 0 Refills, Maintenance, 01/22/21 14:26:00 EDT, [facility]/pharmacy #[id number], procedure is 01/21, 1 glass every [...] Refills, Maintenance, 06/21/20 16:44:00 EST, REC Powder, [id number], Partial fill upon patient request if the prescription is for a schedule II opioid drug., 240 mL By Mouth Daily,Instr... Start Date: 06/21/20 Status: Ordered LaMICtal 100 mg oral tablet 100 mg, 1, tablet, By Mouth, 2 times a day, # 60 tablet, Refills 3, Tot. Refills 3, Maintenance, 01/21/19 11:25:36 EDT, Route to Pharmacy Electronically, [id number], [facility]/pharmacy #[id number] Start Date: 01/21/19 Stop [...] opioid drug. Start Date: 02/11/21 Status: Ordered LORazepam 1 mg oral tablet 1 tablet = 1 mg, By Mouth, 4 times a day, 0 Refills, Maintenance, 05/04/20 14:26:00 EDT Start Date: 05/04/20 Status: Ordered Metoprolol Tartrate 50 mg oral tablet 1.5 tablet, By Mouth, 2 times a day, # 270 tablet, 0 Refills, Maintenance, 11/16/20 11:46:00 EDT, [facility] STORE 70431, 175, cm, 09/21/20 11:29:00 EDT, Height, 83.6, kg, 04/23/20 17:46:00 EDT, Dry Weight Start Date: 11/16/20 Status: Ordered nicotine 2 mg oral transmucosal lozenge See Instructions, USE 1 LOZENGE UP TO EVERY 1 HOUR NEEDED FOR 10 DAYS, # 162 lozenge, 1 Refills,Acute, [facility] STORE [facility]34, 10, USE 1 LOZENGE UP TO EVERY 1 HOUR NEEDED FOR 10 DAYS, 175.3, cm, 01/21/21 12:58:00 EDT, Height, 83.6, kg, 04/23/20 17:46:... Start Date: 02/04/21 Status: Ordered nitroglycerin 0.4 mg sublingual tablet [...] 2 Refills, Soft Stop, 06/01/20 13:51:00 EST, [facility]/pharmacy #[id number], 175, cm, 05/24/20 12:46:00 [...] 9:13:... Start Date: 02/01/20 Status: Ordered Pen [place], 31 G x 5 mm BD Ultra [...] tablet, 1 Refills, Maintenance, 01/08/21 14:43:00 EDT, [facility]/pharmacy#0843, 175, cm, 12/24/20 11:20:00 EDT, Height, 83.6, [...] 09/21/19 10:41:00 EDT, Route to Pharmacy Electronically, [facility]/pharmacy #0843, 172, cm, 09/05/19 16:17:00 [...] opioid drug. Start Date: 02/11/21 Status: Ordered ticagrelor 90 mg oral tablet 1 tablet = 90 mg, By Mouth, 2 times a day, # 60 tablet, 11 Refills, Maintenance, 05/17/19 15:13:56 EST, Tablet, this was previously sent to [facility] pharmacy Start Date: 05/17/19 Stop Date: 05/11/20 Status: Ordered Tresiba FlexTouch 200 units/mL subcutaneous solution = 20 units, Subcutaneous Infusion, Daily, at bedtime, increase 2 units every 3 days until FBS < 120 per PCP max dose 60 units qday, # 3 each, 1 Refills, Maintenance, 12/10/20 11:14:00 EDT, [facility]/pharmacy #[id number], 175, cm, 09/21/20 11:29:00 EDT, Height, 83... Start Date: 12/10/20 Status: Ordered Trulicity Pen 0.75 mg/0.5 mL subcutaneous solution 0.5 mL = 0.75 mg, Subcutaneous Injection, Every week, # 2.5 mL, 11 Refills, Maintenance, 12/24/20 11:37:00 EDT, Solution, [facility], Partial fill upon patient request if the prescription is for a schedule II opioid drug., 175, cm, 12/24/20 11... Start Date: 12/24/20 Status: Ordered Problem List Condition Effective Dates Status Health Status Inform ant Acute pancreatitis(Confirmed) 07/16/16 Active Adenomatous colon polyp colo noscopy 2015(Confirmed) Active Bipolar disorder(Confirmed) Active Cervical spondylosis(Confirmed) Active Chronic back pain DJD(Confirmed) Active Glomerulonephritis,mesangial proliferative/fibrillary(Confirmed) 1, 2 Active ASHD; [place] 2012/stent circumfl ex vessel cath;abdelrahman 2018(Confirmed) 3 [...] adenoma of colon col onoscopy 2015(Confirmed) 8 12/12/15 Active Type 2 diabetes mellitus [...] 524 weeks therapy with sofosbuvir/weight based ribavirin 78470 inferolateral stent bare metal circumflex 7DR Marissa [...]
--- OUTSIDE RECORDS SUMMARY | 2024-06-01 11:58 | XMS_ITS | Continuity of Care Document ---
Author Organization [facility] Shawn Lazaro lt Address [address] [place] [address]- Care Team Providers Care Preschool Lead Teacher Name Role Phone Aylin HICKMAN, Ben Willis Primary Care Physician [phone] Encounter [facility] Date(s): 09/22/20 - 10/22/20 [facility] Adult [address] [place] [address]- Allergies, Adverse Reactions, Alerts Substance Reaction Severity [...] 10:48:07 EST, Aerosol, Route to Pharmacy Electronically, [id number], [facility]/pharmacy #[id number], 180, cm, 06/17/19 10:36:11 EST, Height Start Date: 06/17/19 Status: Ordered aspirin 81 mg oral delayed release tablet 1 tablet, By Mouth, Daily, # 30 tablet, 11 Refills, Maintenance, 06/26/20 12:19:00 EST, [facility], 175, cm, 06/25/20 16:11:00 EST, Height, 83.6, [...] 09/09/20 19:43:00 EST, Route to Pharmacy Electronically, [facility]/pharmacy #[id number], 175, cm, 07/20/20 10:29:00 EST, Height, [...] 3 Refills, Maintenance, 09/21/20 11:35:00 EDT, Tablet, [facility]/pharmacy #0843, Partial fill upon patient request if the prescription is for a schedule II opioid drug., 1 tablet By Mouth Daily, 175, cm, 09/21/20 11:2... Start Date: 09/21/20 Status: Ordered Daily Simone oral tablet 1 tablet, By Mouth, Daily, # 30 tablet, 5 Refills, Maintenance, 09/19/20 8:25:00 EDT, Tablet, [facility]/pharmacy #0843, 1 tablet By Mouth Daily,x30 days, 175, cm, 07/20/20 10:29:00 EST, Height, 83.6, kg, 04/23/20 17:46:00 EDT, Dry Weight Start Date: 09/19/20 Stop Date: 03/18/21 Status: Ordered folic acid 1 mg oral tablet 1 mg, 1, tablet, By Mouth, Daily, # 30 tablet, Refills 5, Tot. Refills 5, Maintenance, 07/04/20 13:24:00 EST, Route to Pharmacy Electronically, [facility]/pharmacy #0843, 175, cm, 06/25/20 16:11:00 EST, [...] Refills, Maintenance, 06/21/20 16:44:00 EST, REC Powder, [facility]/pharmacy #0843, Partial fill upon patient request if the prescription is for a schedule II opioid drug., 240 mL By Mouth Daily,Instr... Start Date: 06/21/20 Status: Ordered LaMICtal 100 mg oral tablet 100 mg, 1, tablet, By Mouth, 2 times a day, # 60 tablet, Refills 3, Tot. Refills 3, Maintenance, 01/21/19 11:25:36 EDT, Route to Pharmacy Electronically, [id number], [facility]/pharmacy #0843 Start Date: [...] 08/27/20 8:08:00 EST, Route to Pharmacy Electronically, [facility]/pharmacy #0843, 175, cm, 07/20/20 10:29:00 EST, Height, 8... Start Date: 08/27/20 Status: Ordered nicotine 2 mg oral transmucosal lozenge See Instructions, suck, up to q1 hrs 10 daily, # 144 lozenge, 1 Refills, Maintenance, 09/25/20 14:21:00 EDT, [facility]/pharmacy #0843, suck, up to q1 hrs 10 daily, 175, cm, 09/21/20 11:29:00 EDT, Height, 83.6, kg, 04/23/20 17:46:00 EDT, Dry Weight Start Date: 09/25/20 Status: Ordered nicotine 4 mg oral transmucosal lozenge 1 lozenge = 4 mg, By Mouth, Every hour, dispense 2 boxes of 81 count as directed on package labeling, # 162 lozenge, 3 Refills, Maintenance, 09/25/20 14:39:00 EDT, [facility]/pharmacy #0843, 1 lozenge By Mouth [...] 2 Refills, Soft Stop, 06/01/20 13:51:00 EST, [facility]/pharmacy #0843, 175, cm, [...] 9:13:... Start Date: 02/01/20 Status: Ordered Pen [place], 31 G x 5 mm BD Ultra [...] EST, Tablet, this was previously sent to [facility] pharmacy Start Date: 05/17/19 Stop Date: 05/11/20 Status: Ordered Tresiba FlexTouch 200 units/mL subcutaneous solution = 70 units, Subcutaneous Infusion, Daily, at bedtime, # 15 mL, 5 Refills, Maintenance, 08/04/19 13:13:00 EST, [facility]/pharmacy #0843, 180, cm, 08/01/19 10:43:00 EST, Height Start Date: 08/04/19 Status: Ordered Problem List Condition Effective Dates Status Health Status Inform ant Acute pancreatitis(Confirmed) 07/16/16 Active Adenomatous colon polyp colo noscopy 2015(Confirmed) Active Bipolar disorder(Confirmed) Active Cervical spondylosis(Confirmed) Active Chronic back pain DJD(Confirmed) Active Glomerulonephritis,mesangial proliferative/fibrillary(Confirmed) 1, 2 Active ASHD; [place] 2012/stent circumfl ex vessel cath;abdelrahman 2018(Confirmed) 3 [...] mild to moderate. 3MI 2012 circumflex stent 2013/[place] 4secondary to hep C 524 weeks therapy with sofosbuvir/weight based ribavirin 00114 inferolateral stent bare metal circumflex 7DR Molddoverno [...]
--- OUTSIDE RECORDS SUMMARY | 2024-06-01 11:58 | XMS_ITS | Continuity of Care Document ---
Author Organization [facility] Shawn Lazaro lt Address [address] [place] [address]- Care Team Providers Care Porter Marina Name Role Phone Carrie Kelly RIVERA Primary Care Physician [place] [facility] [place](s): 06/30/23 - 07/30/23 [facility] Adult [address] [place] [address]- Allergies, Adverse Reactions, Alerts Substance Reaction Severity Status Bee Stings Active Immunizations Given and Recorded Vaccine Date Status Refusal Reason SARS-CoV-2(COVID-19)mRNA-LNP vac([id number]) 05/08/23 Recorded pneumococcal 20-valent conjugate vaccine 1 [...] 02/03/23 Recorded zoster vaccine, inactivated 08/09/19 Recorded [id number] 12y+ bivalent booster vax 05/17/22 Recorded SARS-CoV-2 [...] adult vaccine 4 12/10/10 Given 1Result Comment: [id number] 2Result Comment: [id number] 3Admin Note: pt waited 10 mins post inj no adverse reaction noted.j a 4Admin Note: PT WAITED 10 MIN WITH NO ADVERSE REACTION. MH Medications aspirin 81 mg oral delayed release tablet 1 tablet, By Mouth, Daily, # 90 tablet, 1 Refills, Maintenance, 06/02/23 11:42:00 EST, [facility]/pharmacy#0843, 168, cm, 05/01/23 14:45:00 EDT, Height, 93, [...] capsule, 1 Refills, Maintenance, 06/30/23 7:20:00 EST, [facility], 168, cm, 05/01/23 14:45:00 EDT, Height, 93, kg, 01/28/22 14:55:00 EDT, Dry Weight Start Date: 06/30/23 Status: Ordered Daily Simone oral tablet 1 tablet, By Mouth, Daily, # 90 tablet, 1 Refills, Maintenance, 06/30/23 7:20:00 EST, [facility] 247[facility], 90, TAKE 1 TABLET BY MOUTH EVERY [...] Refills, Maintenance, 06/26/23 6:50:00 EST, [facility], 168, cm, 05/01/23 14:45:00 EDT, Height, 93, kg, 01/28/22 14:55:00 EDT, Dry Weight Start Date: 06/26/23 Status: Ordered folic acid 1 mg oral tablet 1, tablet, By Mouth, Daily, # 90 tablet, Refills 1, Tot. Refills 1, Maintenance, 07/03/23 10:01:00 EST, Route to Pharmacy Electronically, [facility]/pharmacy #[id number], 168, cm, 05/01/23 14:45:00 EDT, Height, [...] 01/21/19 11:25:36 EDT, Route to Pharmacy Electronically, [id number], [facility]/pharmacy #[id number] Start Date: 01/21/19 Stop Date: 05/21/19 Status: Ordered lamotrigine 100 mg oral tablet Refills 0, Maintenance, 05/01/23 15:28:00 EDT, Partial fill upon patient request if the prescription is for a schedule II opioid drug. Start Date: 05/01/23 Status: Ordered lisinopril 40 mg oral tablet 1 tablet, By Mouth, Daily, # 90 tablet, 0 Refills, Maintenance, 04/21/23 10:51:00 EDT, [facility], 175, cm, 10/09/22 16:51:00 EDT, Height, 93, [...] Refills, Maintenance, 02/20/23 7:15:00 EDT, [facility], 175, cm, 10/09/22 16:51:00 EDT, Height, 93, kg, 01/28/22 14:55:00 EDT, Dry Weight Start Date: 02/20/23 Status: Ordered nicotine 14 mg/24 hr transdermal film, extended release See Instructions, apply to skin, # 14 patch, 1 Refills, Maintenance, 07/23/23 15:53:00 EST, Patch, [facility]/pharmacy #[id number], Partial fill upon patient request if [...] 15 Unknown, 2 Refills, 11/07/22 0:09:00 EDT, [facility]/pharmacy #[id number], 175, cm, 10/09/22 16:51:00 EDT, Height, 93, kg, 01/28/22 14:55:00 EDT, Dry Weight Start Date: 11/07/22 Status: Ordered Pen [place], 31 G x 5 mm BD Ultra [...] capsule, 2 Refills, Maintenance, 07/03/23 9:40:00 EST, [facility]/pharmacy #[id number], Partial fill upon patient request if the prescription is for a schedule II opioid drug., 168, cm, 05/01/23 14:45:00 EDT, Height, 93, kg... Start Date: 07/03/23 Status: Ordered rosuvastatin 20 mg oral tablet 1 tablet, By Mouth, Daily, # 90 tablet, 1 Refills, Maintenance, 03/29/23 14:43:00 EDT, [facility], 175, cm, 10/09/22 16:51:00 EDT, Height, 93, [...] 4, GFR 15-29 ml/min Confirmed Active ASHD; [place] 2012/stent circumflex vessel cath;abdelrahman 2018 3 Confirmed [...] mild to moderate. 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 2013/[place] 4secondary to hep C 524 weeks therapy with sofosbuvir/weight based ribavirin 16454 inferolateral stent bare metal circumflex 7DR Molddoverno [...] Member Role: Lifetime Consulting Physician Address: Address: [address] [place] [address] [facility] [place] [address]- Name: Kelly Butler NP Position: [facility] PCO Associate Professional Member Role: PCP Address: Address: [address] [place] [id number]- Name: Kristin Mckenzie Position: [facility] Outreach Member Role: Lifetime Consulting Physician Name: Prieto Tobin RN Position: [facility] RN Member Role: Primary Care Nurse Name: Jonn Hui DO Position: [facility] Renal MD Member Role: Lifetime Consulting Physician Address: Address: [address] [place], [place] [address] [place] [address]- Name: Luis Angel Stephen RN Position: [facility] RN Member Role: Primary Care Nurse Care Team Related Persons Name: CARLOS A BORDEN Address: home [address] [place] [address] Name: LEVI BORDEN Address: home [address] [place] [address]
--- OUTSIDE RECORDS SUMMARY | 2024-06-01 11:58 | XMS_ITS | Continuity of Care Document ---
Author Organization [facility] Nando Escobar Lazaro lt Address [address] [place] [address]- Care Team Providers Care Manager Of Photography Name Role Phone Carrie Kelly RIVERA Primary Care Physician [phone] Encounter [facility] Date(s): 04/28/22 - 05/28/22 [facility] Nando Escobar Adult [address] [place] [address]- Allergies, Adverse Reactions, Alerts Substance Reaction Severity [...] 5 Refills, Maintenance, 02/11/22 11:48:00 EDT, Tablet, [facility]/pharmacy #[id number], 1 tablet By Mouth Daily,x30 days, 175, cm, 01/29/22 15:12:00 EDT, Height, 93, kg, 01/28/22 14:55:00 EDT, Dry Weight Start Date: 02/11/22 Stop Date: 08/10/22 Status: Ordered DilTIAZem (Eqv-Cardizem CD) 180 mg/24 hours oral capsule, extended release 1 capsule, By Mouth, Daily, # 90 capsule, 0 Refills, Maintenance, 05/21/22 13:33:00 EST, [facility] STORE 36172, 175, cm, 05/09/22 11:08:00 EDT, Height, 93, [...] 04/01/22 21:30:00 EDT, [id number] 175, cm, 02/14/22 10:10:00 EDT, Height, [...] 01/21/19 11:25:36 EDT, Route to Pharmacy Electronically, [id number], [facility]/pharmacy #[id number] Start Date: 01/21/19 Stop Date: 05/21/19 Status: Ordered lisinopril 40 mg oral tablet 1 tablet, By Mouth, Daily, # 90 tablet, 1 Refills, Maintenance, 05/07/22 14:29:00 EDT, [facility] STORE 63766, 175, cm, 04/08/22 8:34:00 EDT, Height, 93, kg, 01/28/22 14:55:00 EDT, Dry Weight Start Date: 05/07/22 Status: Ordered Metoprolol Tartrate 50 mg oral tablet 1.5 tablet, By Mouth, 2 times a day, # 270 tablet, 0 Refills, 05/21/22 10:19:00 EST, [facility]/pharmacy #[id number], 175, cm, 05/09/22 11:08:00 EDT, Height, 93, kg, 01/28/22 14:55:00 EDT, Dry Weight Start Date: 05/21/22 Status: Ordered nicotine 14 mg/24 hr transdermal film, extended release 1 patch, Topically, Daily, for 30 days, # 30 patch, 1 Refills, Acute 06/27/22 15:44:00 EST, 04/28/22 15:44:00 EDT, Patch, [facility]/pharmacy #[id number], 1 patch Topically Daily,x30 [...] tablet, 0 Refills, Maintenance, 12/31/21 17:21:00 EDT, [facility]/pharmacy #[id number], 175.2, cm, 12/18/21 14:10:00 EDT, Height... Start Date: 12/31/21 Status: Ordered NovoLOG FlexPen 100 units/mL injectable solution See Instructions, INJECT 0-18 UNITS SUBCUTANEOUSLY WITH MEALS FOR SLIDING SCALES, # 15 Unknown, 2 Refills, [facility] STORE 21063, 175.2, cm, 05/27/21 11:26:00 EST, Height, 88.3, kg, 03/12/21 9:16:00 EDT, Dry Weight Start Date: 06/04/21 Status: Ordered Pen [place], 31 G x 5 mm BD Ultra [...] 5 Refills, Maintenance, 04/08/22 9:12:00 EDT, Capsule, [facility]/pharmacy #[id number], 175, cm, 04/08/22 8:34:00 EDT, Height, 93, kg, 01/28/22 14:55:00 EDT, Dry Weight Start Date: 04/08/22 Status: Ordered rosuvastatin 20 mg oral tablet 1 tablet, By Mouth, Daily, # 90 tablet, 1 Refills, Maintenance, 05/21/22 13:33:00 EST, [facility] STORE 05915, 175, cm, 05/09/22 11:08:00 EDT, Height, 93, kg, 01/28/22 14:55:00 EDT, Dry Weight Start Date: 05/21/22 Status: Ordered SEROquel 100 mg oral tablet 100 mg, 1, tablet, By Mouth, 2 times a day, PRN, # 1 tablet, Refills 2, Tot. Refills 2, Maintenance, Anxiety, 09/21/19 10:41:00 EDT, Route to Pharmacy Electronically, [facility]/pharmacy #[id number], 172, cm, 09/05/19 [...] 3 Refills, Maintenance, 04/08/22 9:09:00 EDT, Suspension, [facility]/pharmacy #[id number], [...] mild to moderate. 3MI 2012 circumflex stent 2012/[place] 4secondary to hep C 524 weeks therapy with sofosbuvir/weight based ribavirin 69700 inferolateral stent bare metal circumflex 7DR Molddoverno [...] Jeffrey Mccoy MD Position: [facility] Renal MD Member Role: Lifetime Consulting Physician Address: Address: [address] [place] [address] [facility] [place] [place] [address]- Name: Kelly Butler NP Position: [facility] PCO Associate Professional Member Role: PCP Address: Address: [address] [place] [id number]- Name: Kristin Mckenzie Position: [facility] Outreach Member Role: Lifetime Consulting Physician Name: Prieto Tobin RN Position: [facility] RN Member Role: Primary Care Nurse Name: Jonn Hui DO Position: [facility] Renal MD Member Role: Lifetime Consulting Physician Address: Address: [address] [place], [place] [address] [place], [place] [address] Name: Luis Angel Stephen RN Position: S RN Member Role: Primary Care Nurse Name: Tamie Baird RN Position: S RN Member Role: Primary Care Nurse Care Team Related Persons Name: CARLOS A BORDEN Address: home [address] [place] [address] Name: LEVI BORDEN Address: home [address] [place] [address]
--- OUTSIDE RECORDS SUMMARY | 2024-06-01 11:58 | XMS_ITS | Continuity of Care Document ---
Author Organization [facility] Shawn Lazaro lt Address [address] [place] [address]- Care Team Providers Care Tack Maker Name Role Phone Aylin HICKMAN, Ben Willis Primary Care Physician En[place] [facility] [place] Date(s): 05/27/21 - 06/03/21 [facility] Adult [address] [place] [address]- Attending Physician: Not on Staff, Attending MD [...] Give n SARS-CoV-2 (COVID-19) mRNA BNT-162b2 vac 10/10/20 Recorded [...] tablet, 11 Refills, Maintenance, 06/26/20 12:19:00 EST, [facility] STORE 89413, 175, cm, 06/25/20 16:11:00 EST, Height, 83.6, [...] Refills, Maintenance, 01/23/21 11:08:00 EDT, CR Capsule, [facility]/pharmacy #[id number], 175.3, cm, 01/21/21 12:58:00 EDT, Height, 83.6, kg, 04/23/20 17:46:00EDT, Dry Weight Start Date: 01/23/21 Stop Date: 01/18/22 Status: Ordered cholecalciferol 2000 intl units oral capsule 1 capsule = 2,000 International_Units, By Mouth, Daily, # 30 capsule, 5 Refills, Maintenance, 05/15/21 13:02:00 EST, Capsule, [facility]/pharmacy #[id number], 175.2, cm, 03/18/21 10:48:00 EDT, Height, 88.3, kg, 03/12/21 9:16:00 EDT, Dry Weight Start Date: 05/15/21 Status: Ordered cloNIDine 0.2 mg oral tablet 0.2 mg, 1, tablet, By Mouth, 2 times a day, # 60 tablet, Refills 5, Tot. Refills 5, Maintenance, 02/28/21 10:13:00 EDT, Route to Pharmacy Electronically, [facility]/pharmacy #[id number], 175.3, cm, 01/21/21 12:58:00 EDT, Height, 83.6, kg, 04/23/20 17:46:00 EDT, Dr... Start Date: 02/28/21 Status: Ordered Daily Simone oral tablet 1 tablet, By Mouth, Daily, # 30 tablet, 5 Refills, Maintenance, 09/19/20 8:25:00 EDT, Tablet, [facility]/pharmacy #[id number], 1 tablet By Mouth Daily,x30 days, 175, cm, 07/20/20 10:29:00 EST, Height, 83.6, kg, 04/23/20 17:46:00 EDT, Dry Weight Start Date: 09/19/20 Stop Date: 03/18/21 Status: Ordered docusate sodium 100 mg oral capsule 1 capsule, By Mouth, 2 times a day, PRN NEEDED FOR CONSTIPATION, # 60 capsule, 5 Refills, Maintenance, 01/22/21 12:45:00 EDT, [facility], 175.3, cm, 01/21/21 12:58:00 EDT, Height, 83.6, kg, 04/23/20 17:46:00 EDT, Dry Weight Start Date: 01/22/21 Status: Ordered folic acid 1 mg oral tablet 1, tablet, By Mouth, Daily, # 30 tablet, Refills 5, Tot. Refills 0, Maintenance, 01/18/21 14:44:00 EDT, Route to Pharmacy Electronically, [facility], 175, cm, 12/24/20 11:20:00 EDT, Height, 83.6, [...] tablet, 5 Refills, Maintenance, 02/27/20 15:23:00 EDT, [facility]/pharmacy #[id number], 172, cm, 12/14/19 8:02:00 EDT, Height, 97.8, kg, 08/11/19 5:24:00 EST, Dry Weight Start Date: 02/27/20 Status: Ordered LaMICtal 100 mg oral tablet 100 mg, 1, tablet, By Mouth, 2 times a day, # 60 tablet, Refills 3, Tot. Refills 3, Maintenance, 01/21/19 11:25:36 EDT, Route to Pharmacy Electronically, [id number], [facility]/pharmacy #[id number] Start Date: 01/21/19 [...] tablet, 0 Refills, Maintenance, 03/22/21 12:39:00 EDT, [facility]/pharmacy #0843, 175.2, cm, 03/18/21 10:48:00 EDT, Height, 88.3, kg, 03/12/21 9:16:00 EDT, Dry Weight Start Date: 03/22/21 Status: Ordered nicotine 2 mg oral transmucosal lozenge See Instructions, USE 1 LOZENGE UP TO EVERY 1 HOUR NEEDED FOR 10 DAYS, # 162 lozenge, 1 Refills,Maintenance, 05/15/21 15:14:00 EST, [facility]/pharmacy #0843, 10, pt states he needs MINI's, USE 1 LOZENGE UP TO EVERY 1 HOUR NEEDED FOR 10 DAYS, 175.2, c... Start Date: 05/15/21 Status: Ordered nitroglycerin 0.4 mg sublingual tablet [...] # 15 Unknown, 5 Refills, Soft Stop, 06/03/21 9:37:... Start Date: 06/03/21 Status: Ordered Pen [place], 31 G x 5 mm BD Ultra [...] = 75 mg, By Mouth, Daily, # 14 capsule, 0 Refills, Maintenance, 05/27/21 12:32:00 EST, Capsule, [facility], 175.2, cm, 05/27/21 11:26:00 EST, Height, 88.3, kg, 03/12/21 9:16:00 EDT,Dry Weight Start Date: 05/27/21 Stop Date: 06/10/21 Status: Ordered rosuvastatin 20 mg oral tablet 1 tablet, By Mouth, Daily, # 90 tablet, 1 Refills, Maintenance, 01/08/21 14:43:00 EDT, [facility], 175, cm, 12/24/20 11:20:00 EDT, Height, 83.6, [...] each, 1 Refills, Maintenance, 12/10/20 11:14:00 EDT, [facility]/pharmacy #[id number], 175, cm, 09/21/20 11:29:00 EDT, Height, 83... Start Date: 12/10/20 Status: Ordered Trulicity Pen 0.75 mg/0.5 mL subcutaneous solution 0.5 mL = 0.75 mg, Subcutaneous Injection, Every week, # 2.5 mL, 11 Refills, Maintenance, 12/24/20 11:37:00 EDT, Solution, [facility]/pharmacy #[id number], Partial [...] 1, 2 Active Cigarette smoker(Confirmed) Active ASHD; [place] 2012/stent circumfl ex vessel [...] mild to moderate. 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 C 524 weeks therapy with sofosbuvir/weight based ribavirin 02955 inferolateral stent bare metal circumflex 7DR Marissa sx;Dr Schwartz 8hyperplatic polyp repeat screening in 2025 9repeat colonoscopy in 5 years Vital Signs Most recent to oldest [Reference Range]: 1 Height 175.2 cm (05/27/21 11:26 AM) Weight 85.1 kg (05/27/21 11:26 AM) Oxygen Saturation [94-100 %] 99 % (05/27/21 11:26 AM) Pulse Rate [55-90 bpm] 46 bpm *L* (05/27/21 11:26 AM) Body Mass Index [18.5-24.99] 27.72 *H* (05/27/21 11:26 AM) Blood Pressure [90-138/55-84 mm Hg] 104/ 64mm Hg (05/27/21 11:26 AM) Respiratory Rate [16-30 br/min] 14 br/mi n *L* (05/27/21 11:26 AM) Temperature [96.8-100.4 DegF] 97.6 DegF (05/27/21 11:26 AM) Mode of Delivery (Oxygen) Room air (05/27/21 11:26 AM) Blood pressure sites Arm, right (05/27/21 11:26 AM) Temperature Route Oral (05/27/21 11:26 AM) Weight Obtained Via Standing scale (05/27/21 11:26 AM) Social History Social History Type Response Smoking Status Former smoker, quit more than 30 days ago; Interested in cessation: No; Other: quit; Tobacco use times per day: prio 1/2-1 ppd; Total pack years: 38; Started at age: 12; Stopped at age: 63; entered on: 07/20/20 Sex
--- OUTSIDE RECORDS SUMMARY | 2024-06-01 11:58 | XMS_ITS | Continuity of Care Document ---
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) - 07/31/19 ASHD; [place] 2012/stent circumflex vessel cath;abdelrahman 2019(Discharge Diagnosis) - 07/31/19 Chronic renal impairment, stage 3 (moderate)(Discharge Diagnosis) - 07/31/19 Insulin long-term use(Discharge Diagnosis) - 07/31/19 Hypertension(Discharge Diagnosis) - 07/31/19 Hyperlipidemia(Discharge Diagnosis) - 07/31/19 History of alcoholism(Discharge Diagnosis) - 08/01/19 Ex-smoker quit 2018/ldct enrolled(Discharge Diagnosis) - 08/01/19 LVH (left ventricular hypertrophy) echo(Discharge Diagnosis) - 08/01/19 Adenomatous colon polyp(Discharge Diagnosis) - 08/01/19 Glomerulonephritis,mesangial proliferative/fibrillary(Discharge Diagnosis) - 08/01/19 History of nephrotic syndrome(Discharge Diagnosis) - 08/01/19 History of acute myocardial infarction of inferior wall 2013/stent(Discharge Diagnosis) - 08/01/19 Low serum vitamin D(Discharge Diagnosis) - 08/01/19 Chronic renal insufficiency, stage III (moderate)(Discharge Diagnosis) - 08/01/19 Attending Physician: Ben Viera MD Allergies, Adverse [...] 10:48:07 EST, Aerosol, Route to Pharmacy Electronically, [id number], [id number] 180, cm, 06/17/19 10:36:11 EST, Height Start Date: 06/17/19 Status: Ordered aspirin 81 mg oral tablet 1 tablet = 81 mg, By Mouth, Daily, # 30 tablet, 11 Refills, Maintenance, 09/03/19 14:22:00 EST, Tablet, [facility]/pharmacy #[id number], 180, cm, 08/01/19 10:43:00 EST, Height Start Date: 09/03/19 Stop Date: 08/28/20 Status: Ordered aspirin 81 mg oral tablet 1 tablet = 81 mg, By Mouth, Daily, for 30 days, # 30 tablet, 11 Refills, Hard Stop 09/03/19 14:22:51 EST, 09/08/18 14:22:51 EST, Tablet, [facility]/pharmacy #[id number] Start Date: 09/08/18 Stop Date: 09/03/19 Status: [...] 05/09/19 9:31:26 EST, Route to Pharmacy Electronically, [id number], [facility]/pharmacy #[id number] Start Date: 05/09/19 Status: Ordered Colace sodium 100 mg oral capsule 100 mg, 1, capsule, By Mouth, 2 times a day, PRN, # 60 capsule, Refills 5, Tot. Refills 5, Maintenance, for constipation, 04/25/19 13:50:52 EDT, Route to Pharmacy Electronically, [id number], [facility]/pharmacy #[id number] Start Date: 04/25/19 Status: Ordered Crestor [...] 02/14/19 16:39:14 EDT, Route to Pharmacy Electronically, [id number], [facility]/pharmacy #[id number] Start Date: 02/14/19 Status: Ordered Freestyle [...] 01/21/19 11:25:36 EDT, Route to Pharmacy Electronically, [id number], [facility]/pharmacy #[id number] Start Date: [...] 06/21/19 14:10:15 EST, Route to Pharmacy Electronically, [facility]/pharmacy #[id number], 180, cm, 06/17/19 10:36:11 EST, Height Start Date: 06/21/19 Status: Ordered metoprolol 50 mg oral tablet 75 mg, 1.5, tablet, By Mouth, 2 times a day, stop metoprolol 50 mg twice daily, # 180 tablet, Refills 2, Tot. Refills 2, Maintenance, 02/28/19 16:02:16 EDT, Route to Pharmacy Electronically, [id number], [facility]/pharmacy #0843 Start Date: 02/28/19 Status: Ordered nicotine 2 mg oral transmucosal lozenge 1 lozenge = 2 mg, By Mouth, Every 2 hours, SUCK UP TO Q1 HOURS 10 DAILY, # 144 lozenge, 2 Refills, Maintenance, 07/15/19 12:34:00 EST, [facility]/pharmacy #0843, 1 lozenge By Mouth Every 2 [...] PAIN CALL 911 IF PAIN NOT RELIEVED, [facility]/pharmacy #[id number] Start Date: 02/17/19 Status: Ordered NovoLOG FlexPen 100 units/mL subcutaneous solution See Instructions, # 15 Unknown, Refills 5 Tot. Refills 5, INJECT 0-18 UNITS SUBCUTANEOUSLY WITH MEALS FOR SLIDING SCALES, [facility]/pharmacy #[id number] Start Date: 01/04/19 Status: Ordered Pen [place], 31 G x 5 mm BD Ultra [...] 01/21/19 11:26:23 EDT, Route to Pharmacy Electronically, [id number], [facility]/pharmacy #[id number] Start Date: 01/21/19 Status: Ordered SEROquel [...] EST, Tablet, this was previously sent to [facility] pharmacy Start Date: 05/17/19 Stop Date: 05/11/20 [...] renal insufficiency, stage III (moderate)(Confirmed) Active ASHD; [place] 2012/stent circumfl ex vessel cath;abdelrahman 2018(Confirmed) 3 Active Epididymal cyst rt(Confirmed) 04/18/19 Active Low serum vitamin D(Confirmed) Active Insulin long-term use(Confirmed) Active Ex-smoker quit 2018/ t enrolled(Confirmed) Active [...] mild to moderate. 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 2013/[place] 4secondary to hep C 524 weeks therapy with sofosbuvir/weight based ribavirin 42353 inferolateral stent bare metal circumflex 7DR Molddoverno sx;Dr Schwartz 8repeat colonoscopy in 5 years Diagnosis Diagnosis Type Effective Dates Health Status Clinical Service Informant Type 2 diabetes mellitus with diabetic nephropathy Discharge Diagnosis 07/31/19 ASHD; [place] 2012/stent circumflex vessel cath;abdelrahman 2019 Discharge Diagnosis 07/31/19 Chronic renal impairment, stage 3 (moderate) Discharge Diagnosis 07/31/19 Insulin long-term use Discharge Diagnosis 07/31/19 Hypertension Discharge Diagnosis 07/31/19 Hyperlipidemia Discharge Diagnosis 07/31/19 History of alcoholism Discharge Diagnosis 08/01/19 Ex-smoker quit 2018/ldct enrolled Discharge Diagnosis 08/01/19 LVH (left ventricular hypertrophy) echo Discharge Diagnosis 08/01/19 Adenomatous colon polyp Discharge Diagnosis 08/01/19 Glomerulonephritis,m esangial proliferative/fibril shannan Discharge Diagnosis 08/01/19 History of nephrotic syndrome Discharge Diagnosis 08/01/19 History of acute myocardial infarction of inferior wall 2012/stent Discharge Diagnosis 08/01/19 Low serum vitamin D Discharge Diagnosis 08/01/19 Chronic renal insufficiency, stage III (moderate) Discharge Diagnosis 08/01/19 Vital Signs Most recent to oldest [Reference Range]: 1 Height 180 cm (08/01/19 10:43 AM) Oxygen Saturation [94-100 %] 97 % (08/01/19 10:43 AM) Pulse Rate [55-90 bpm] 66 bpm (08/01/19 10:43 AM) Blood Pressure [90-138/55-84 mm Hg] 134/ 70mm Hg (08/01/19 10:43 AM) Temperature [96.8-100.4 DegF] 98.1 DegF (08/01/19 10:43 AM) Blood pressure sites Arm, left (08/01/19 10:43 AM) Temperature Route Oral (08/01/19 10:43 AM) Social History Social History Type Response Smoking Status Former smoker, quit more than 30 days ago entered on: 12/22/18 Sex
--- OUTSIDE RECORDS SUMMARY | 2024-06-01 11:58 | XMS_ITS | Continuity of Care Document ---
Author Organization [facility] Shawn Lazaro lt Address [address] [place] [address]- Care Team Providers Care Bag Repairer Name Role Phone Carrie Kelly RIVERA Primary Care Physician [facility]counter [facility] Date(s): 03/24/22 - 04/23/22 [facility] Adult [address] [place] [address]- Allergies, Adverse Reactions, Alerts Substance Reaction Severity [...] tablet, 3 Refills, Maintenance, 09/30/21 12:28:00 EDT, [facility]/pharmacy#[id number], 175.2, cm, 09/20/21 8:36:00 EDT, Height, [...] Refills, Maintenance, 01/18/22 11:08:00 EDT, CR Capsule, [facility]/pharmacy #[id number], 175.2, cm, 11/15/21 11:18:00 EDT, Height, 88.3, kg, 03/12/21 9:16:00 EDT, Dry Weight Start Date: 01/18/22 Stop Date: 07/17/22 Status: Ordered Daily Simone oral tablet 1 tablet, By Mouth, Daily, # 30 tablet, 5 Refills, Maintenance, 02/11/22 11:48:00 EDT, Tablet, [facility]/pharmacy #[id number], 1 tablet By Mouth Daily,x30 days, 175, cm, 01/29/22 15:12:00 EDT, Height, 93, kg, 01/28/22 14:55:00 EDT, Dry Weight Start Date: 02/11/22 Stop Date: 08/10/22 Status: Ordered docusate sodium 100 mg oral capsule 1 capsule, By Mouth, 2 times a day, PRN NEEDED FOR CONSTIPATION, # 60 capsule, 5 Refills, Maintenance, 06/05/21 15:57:00 EST, [facility]/pharmacy #[id number], 175.2, cm, 05/27/21 11:26:00 EST, Height, 88.3, kg, 03/12/21 9:16:00 EDT, Dry Weight Start Date: 06/05/21 Status: Ordered folic acid 1 mg oral tablet 1, tablet, By Mouth, Daily, # 30 tablet, Refills 5, Tot. Refills 5, Maintenance, 04/01/22 21:30:00 EDT, Route to Pharmacy Electronically, [facility]/pharmacy #[id number], 175, cm, 02/14/22 10:10:00 EDT, [...] 01/21/19 11:25:36 EDT, Route to Pharmacy Electronically, [id number], [facility]/pharmacy #[id number] Start Date: 01/21/19 Stop Date: 05/21/19 Status: Ordered lisinopril 40 mg oral tablet 1 tablet = 40 mg, By Mouth, Daily, # 30 tablet, 3 Refills, Maintenance, 09/17/21 10:50:00 EDT, Tablet, [facility]/pharmacy #[id number], Partial fill upon patient request if the prescription is for a schedule II opioid drug., 175.2, cm, 07/31/21 11:20:00 EST, Heigh... Start Date: 09/17/21 Status: Ordered Metoprolol Tartrate 50 mg oral tablet 1.5 tablet, By Mouth, 2 times a day, # 270 tablet, 0 Refills, 03/16/22 12:48:00 EDT, [facility]/pharmacy #[id number], 175, cm, 02/14/22 10:10:00 EDT, Height, 93, kg, 01/28/22 14:55:00 EDT, Dry Weight Start Date: 03/16/22 Status: Ordered nicotine 14 mg/24 hr transdermal film, extended release 1 patch, Topically, Daily, for 30 days, # 30 patch, 1 Refills, Acute 05/13/22 12:16:00 EST, 03/14/22 12:16:00 EDT, Patch, [facility]/pharmacy #[id number], 1 patch Topically Daily,x30 days, [...] tablet, 0 Refills, Maintenance, 12/31/21 17:21:00 EDT, [facility]/pharmacy #[id number], 175.2, cm, 12/18/21 14:10:00 EDT, Height... Start Date: 12/31/21 Status: Ordered NovoLOG FlexPen 100 units/mL injectable solution See Instructions, INJECT 0-18 UNITS SUBCUTANEOUSLY WITH MEALS FOR SLIDING SCALES, # 15 Unknown, 2 Refills, [facility] STORE 46587, 175.2, cm, 05/27/21 11:26:00 EST, Height, 88.3, [...] 5 Refills, Maintenance, 04/08/22 9:12:00 EDT, Capsule, [facility]/pharmacy #[id number], 175, cm, 04/08/22 8:34:00 EDT, Height, 93, kg, 01/28/22 14:55:00 EDT, Dry Weight Start Date: 04/08/22 Status: Ordered rosuvastatin 20 mg oral tablet 1 tablet, By Mouth, Daily, # 90 tablet, 1 Refills, [facility] STORE 91481, 175, cm, 01/29/22 15:12:00 EDT,Height, 93, kg, 01/28/22 14:55:00 EDT, Dry Weight Start Date: 01/30/22 Status: Ordered SEROquel 100 mg oral tablet 100 mg, 1, tablet, By Mouth, 2 times a day, PRN, # 1 tablet, Refills 2, Tot. Refills 2, Maintenance, Anxiety, 09/21/19 10:41:00 EDT, Route to Pharmacy Electronically, [facility]/pharmacy #[id number], 172, cm, 09/05/19 16:17:00 EST, [...] 3 Refills, Maintenance, 04/08/22 9:09:00 EDT, Suspension, [facility]/pharmacy #[id number], 1 drops Eyes, Both 2 [...] # 30 capsule, 5 Refills, [facility], 175.2, cm, 11/15/21 11:18:00 EDT, Height, 88.3, kg, 03/12/21 9:16:00 EDT, Dry Weight Start Date: 11/17/21 Status: Ordered Problem List Condition Confirmation Course Effective Dates Status Health Status Informant Bipolar disorder Confirmed Active Cervical spondylosis Confirmed Active Chronic back pain DJD Confirmed Active Glomerulonephritis,ulloa ngial proliferative/fibrillar y 1, 2 Confirmed Active Chronic renal failure, stage 4 (severe) Confirmed Active ASHD; [place] 2012/stent circumflex vessel cath;abdelrahman 2018 3 Confirmed [...] mild to moderate. 3MI 2012 circumflex stent 2013/[place] 4secondary to hep C 524 weeks therapy with sofosbuvir/weight based ribavirin 54607 inferolateral stent bare metal circumflex 7DR Molddoverno [...] Personnel Name: Kelly Butler NP Address: Address: [address] [place] [id number]-
--- OUTSIDE RECORDS SUMMARY | 2024-06-01 11:59 | XMS_ITS | Continuity of Care Document ---
Author Organization [facility] Shawn Lazaro lt Address [address] [place] [address]- Care Team Providers Care Marketing Director Assisted Living Name Role Phone Aylin HICKMAN, Ben Willis Primary Care Physician [phone] Encounter [facility] Date(s): 12/09/21 - 01/08/22 [facility] Adult [address] [place] [address]- Allergies, Adverse Reactions, Alerts Substance Reaction Severity [...] 01/21/19 11:25:36 EDT, Route to Pharmacy Electronically, [id number], [facility]/pharmacy #[id number] Start Date: [...] a day, # 270 tablet, 0 Refills, [facility], 175.2, cm, 11/15/21 11:18:00 EDT, Height, 88.3, kg, 03/12/21 9:16:00 EDT, Dry Weight Start Date: 12/12/21 Status: Ordered nicotine 2 mg oral transmucosal lozenge See Instructions, USE 1 LOZENGE BY MOUTH UP TO EVERY 1 HOUR NEEDED FOR 10 DAYS, # 144 lozenge, 0Refills, [facility], 10, USE 1 LOZENGE BY MOUTH UP [...] Stop 02/06/22 12:37:00 EDT, 01/09/22 12:37:00 EDT, [facility]/pharmacy #[id number], 1lozenge By Mouth Every 4 [...] 2 Refills, [facility] STORE 52610, 175.2, cm, 05/27/21 11:26:00 EST, Height, 88.3, kg, 03/12/21 9:16:00 EDT, Dry Weight Start Date: 06/04/21 Status: Ordered Pen [place], 31 G x 5 mm BD Ultra [...] capsule, 5 Refills, Maintenance, 11/19/21 11:25:00EDT, Capsule, [facility]/pharmacy #[id number], 175.2, cm, 11/15/21 11:18:00 EDT, Height, 88.3, kg, 03/12/21 9:16:00 EDT, Dry Weight Start Date: 11/19/21 Status: Ordered pregabalin 75 mg oral capsule 1 capsule = 75 mg, By Mouth, Daily, # 30 capsule, 5 Refills, Maintenance, 06/10/21 12:32:00 EST, Capsule, [facility]/pharmacy #[id number], 175.2, cm, [...] 3 Refills, Maintenance, 12/18/21 14:33:00 EDT, Suspension, [facility]/pharmacy #[id number], [...] # 9 Unknown, 1 Refills, [facility], 175.2, cm, 07/31/21 11:20:00 EST, Height, 88.3, [...] Mouth, Daily, # 30 capsule, 5 Refills, [facility] 98103, 175.2, cm, 11/15/21 11:18:00 EDT, Height, 88.3, kg, 03/12/21 9:16:00 EDT, Dry Weight Start Date: 11/17/21 Status: Ordered Problem List Condition Effective Dates Status Health Status Inform ant Bipolar disorder(Confirmed) Active Cervical spondylosis(Confirmed) Active Chronic back pain DJD(Confirmed) Active Glomerulonephritis,mesangial proliferative/fibrillary(Confirmed) 1, 2 Active Chronic renal failure, stage 4 (severe)(Confirmed) Active ASHD; [place] 2012/stent circumfl ex vessel [...] 524 weeks therapy with sofosbuvir/weight based ribavirin 79309 inferolateral stent bare metal circumflex 7DR Molddoverno [...]
--- OUTSIDE RECORDS SUMMARY | 2024-06-01 11:59 | XMS_ITS | Continuity of Care Document ---
Author Organization [facility] Lazaro lt Address [address] [place] [address]- Care Team Providers Care Senior Project Coordinator Name Role Phone Carrie Kelly RIVERA Primary Care Physician Encounter [facility] Date(s): 07/03/23 - 08/02/23 [facility] Adult [address] [place] [address]- Allergies, Adverse Reactions, Alerts Substance Reaction Severity Status Bee Stings Active Immunizations Given and Recorded Vaccine Date Status Refusal Reason SARS-CoV-2(COVID-19)mRNA-LNP vac([id number]) 05/08/23 Recorded pneumococcal 20-valent conjugate vaccine 1 [...] 02/03/23 Recorded zoster vaccine, inactivated 08/09/19 Recorded [id number] 12y+ bivalent booster vax 05/17/22 Recorded SARS-CoV-2 [...] adult vaccine 4 12/10/10 Given 1Result Comment: [id number] 2Result Comment: [id number] 3Admin Note: pt waited 10 mins post inj no adverse reaction noted.j a 4Admin Note: PT WAITED 10 MIN WITH NO ADVERSE REACTION. MH Medications aspirin 81 mg oral delayed release tablet 1 tablet, By Mouth, Daily, # 90 tablet, 1 Refills, Maintenance, 06/02/23 11:42:00 EST, [facility]/pharmacy#[id number], 168, cm, 05/01/23 14:45:00 EDT, Height, 93, [...] capsule, 1 Refills, Maintenance, 06/30/23 7:20:00 EST, [facility] STORE 69084, 168, cm, 05/01/23 14:45:00 EDT, Height, 93, kg, 01/28/22 14:55:00 EDT, Dry Weight Start Date: 06/30/23 Status: Ordered Daily Simone oral tablet 1 tablet, By Mouth, Daily, # 90 tablet, 1 Refills, Maintenance, 06/30/23 7:20:00 EST, [facility] ST[facility] 44265, 90, TAKE 1 TABLET BY MOUTH EVERY [...] Refills, Maintenance, 06/26/23 6:50:00 EST, [facility], 168, cm, 05/01/23 14:45:00 EDT, Height, 93, kg, 01/28/22 14:55:00 EDT, Dry Weight Start Date: 06/26/23 Status: Ordered folic acid 1 mg oral tablet 1, tablet, By Mouth, Daily, # 90 tablet, Refills 1, Tot. Refills 1, Maintenance, 07/03/23 10:01:00 EST, Route to Pharmacy Electronically, [facility]/pharmacy #[id number], 168, cm, 05/01/23 14:45:00 EDT, [...] 01/21/19 11:25:36 EDT, Route to Pharmacy Electronically, [id number], [facility]/pharmacy #[id number] Start Date: 01/21/19 Stop Date: 05/21/19 Status: Ordered lamotrigine 100 mg oral tablet Refills 0, Maintenance, 05/01/23 15:28:00 EDT, Partial fill upon patient request if the prescription is for a schedule II opioid drug. Start Date: 05/01/23 Status: Ordered lisinopril 40 mg oral tablet 1 tablet, By Mouth, Daily, # 90 tablet, 0 Refills, Maintenance, 04/21/23 10:51:00 EDT, [facility] STORE 63988, 175, cm, 10/09/22 16:51:00 EDT, Height, 93, [...] Refills, Maintenance, 02/20/23 7:15:00 EDT, [facility], 175, cm, 10/09/22 16:51:00 EDT, Height, 93, kg, 01/28/22 14:55:00 EDT, Dry Weight Start Date: 02/20/23 Status: Ordered nicotine 14 mg/24 hr transdermal film, extended release See Instructions, apply to skin, # 14 patch, 1 Refills, Maintenance, 07/23/23 15:53:00 EST, Patch, [facility]/pharmacy #[id number], Partial fill upon patient [...] 15 Unknown, 2 Refills, 11/07/22 0:09:00 EDT, [facility]/pharmacy #[id number], 175, cm, 10/09/22 16:51:00 EDT, Height, 93, kg, 01/28/22 14:55:00 EDT, Dry Weight Start Date: 11/07/22 Status: Ordered Pen [place], 31 G x 5 mm BD Ultra [...] capsule, 2 Refills, Maintenance, 07/03/23 9:40:00 EST, [facility]/pharmacy #[id number], Partial fill upon patient request if the prescription is for a schedule II opioid drug., 168, cm, 05/01/23 14:45:00 EDT, Height, 93, kg... Start Date: 07/03/23 Status: Ordered rosuvastatin 20 mg oral tablet 1 tablet, By Mouth, Daily, # 90 tablet, 1 Refills, Maintenance, 03/29/23 14:43:00 EDT, [facility], 175, cm, 10/09/22 16:51:00 EDT, Height, 93, [...] 524 weeks therapy with sofosbuvir/weight based ribavirin 52427 inferolateral stent bare metal circumflex 7DR Molddoverno [...] Team Personnel Name: Jeffrey Mccoy MD Position: [facility] Renal MD Member Role: Lifetime Consulting Physician Address: Address: [address] [place] [address] [facility] [place] [address]- Name: Kelly Butler NP Position: [facility] PCO Associate Professional Member Role: PCP Address: Address: [address] [place] [address]- Name: Kristin Mckenzie Position: [facility] Outreach Member Role: Lifetime Consulting Physician Name: Prieto Tobin RN Position: [facility] RN Member Role: Primary Care Nurse Name: Jonn Hui DO Position: [facility] Renal MD Member Role: Lifetime Consulting Physician Address: Address: [address] [place], [place] [address] [place] [address]- Name: Luis Angel Stephen RN Position: [facility] RN Member Role: Primary Care Nurse Care Team Related Persons Name: CARLOS A BORDEN Address: [address] [place] [address] Name: LEVI BORDEN Address: [address] [place] [address]
--- OUTSIDE RECORDS SUMMARY | 2024-06-01 11:59 | XMS_ITS | Continuity of Care Document ---
Author Organization [facility] Shawn Lazaro lt Address [address] [place] [address]- Care Team Providers Care Water Treatment Plant Repairer Name Role Phone Aylin HICKMAN, Ben Willis Primary Care Physician [phone] Encounter [facility] Date(s): 05/03/21 - 06/02/21 [facility] Adult [address] [place] [address]- Allergies, Adverse Reactions, Alerts Substance Reaction Severity [...] tablet, 11 Refills, Maintenance, 06/26/20 12:19:00 EST, [facility] STORE 52129, 175, cm, 06/25/20 16:11:00 EST, Height, 83.6, [...] Refills, Maintenance, 01/23/21 11:08:00 EDT, CR Capsule, [facility]/pharmacy #[id number], 175.3, cm, 01/21/21 12:58:00 EDT, Height, 83.6, kg, 04/23/20 17:46:00EDT, Dry Weight Start Date: 01/23/21 Stop Date: 01/18/22 Status: Ordered cholecalciferol 2000 intl units oral capsule 1 capsule = 2,000 International_Units, By Mouth, Daily, # 30 capsule, 5 Refills, Maintenance, 05/15/21 13:02:00 EST, Capsule, [facility]/pharmacy #[id number], 175.2, cm, 03/18/21 10:48:00 EDT, Height, 88.3, kg, 03/12/21 9:16:00 EDT, Dry Weight Start Date: 05/15/21 Status: Ordered cloNIDine 0.2 mg oral tablet 0.2 mg, 1, tablet, By Mouth, 2 times a day, # 60 tablet, Refills 5, Tot. Refills 5, Maintenance, 02/28/21 10:13:00 EDT, Route to Pharmacy Electronically, [facility]/pharmacy #[id number], 175.3, cm, 01/21/21 12:58:00 EDT, Height, 83.6, kg, 04/23/20 17:46:00 EDT, . Start Date: 02/28/21 Status: Ordered Daily Simone oral tablet 1 tablet, By Mouth, Daily, # 30 tablet, 5 Refills, Maintenance, 09/19/20 8:25:00 EDT, Tablet, [facility]/pharmacy #[id number], 1 tablet By Mouth Daily,x30 days, 175, cm, 07/20/20 10:29:00 EST, Height, 83.6, kg, 04/23/20 17:46:00 EDT, Dry Weight Start Date: 09/19/20 Stop Date: 03/18/21 Status: Ordered docusate sodium 100 mg oral capsule 1 capsule, By Mouth, 2 times a day, PRN NEEDED FOR CONSTIPATION, # 60 capsule, 5 Refills, Maintenance, 01/22/21 12:45:00 EDT, [facility], 175.3, cm, 01/21/21 12:58:00 EDT, Height, 83.6, kg, 04/23/20 17:46:00 EDT, Dry Weight Start Date: 01/22/21 Status: Ordered folic acid 1 mg oral tablet 1, tablet, By Mouth, Daily, # 30 tablet, Refills 5, Tot. Refills 0, Maintenance, 01/18/21 14:44:00 EDT, Route to Pharmacy Electronically, [facility], 175, cm, 12/24/20 11:20:00 EDT, Height, 83.6, [...] 01/21/19 11:25:36 EDT, Route to Pharmacy Electronically, [id number], [facility]/pharmacy #[id number] Start Date: [...] tablet, 0 Refills, Maintenance, 03/22/21 12:39:00 EDT, [facility]/pharmacy #[id number], 175.2, cm, 03/18/21 10:48:00 EDT, Height, 88.3, kg, 03/12/21 9:16:00 EDT, Dry Weight Start Date: 03/22/21 Status: Ordered nicotine 2 mg oral transmucosal lozenge See Instructions, USE 1 LOZENGE UP TO EVERY 1 HOUR NEEDED FOR 10 DAYS, # 162 lozenge, 1 Refills,Maintenance, 05/15/21 15:14:00 EST, [facility]/pharmacy #[id number], 10, pt states he needs MINI's, [...] 9:13:... Start Date: 02/01/20 Status: Ordered Pen [place], 31 G x 5 mm BD Ultra [...] 0 Refills, Maintenance, 05/27/21 12:32:00 EST, Capsule, [facility]/pharmacy #[id number], 175.2, cm, 05/27/21 11:26:00 EST, Height, 88.3, kg, 03/12/21 9:16:00 EDT,Dry Weight Start Date: 05/27/21 Stop Date: 06/10/21 Status: Ordered rosuvastatin 20 mg oral tablet 1 tablet, By Mouth, Daily, # 90 tablet, 1 Refills, Maintenance, 01/08/21 14:43:00 EDT, [facility]/pharmacy#0843, 175, cm, 12/24/20 11:20:00 EDT, Height, 83.6, kg, 04/23/20 17:46:00 EDT, Dry Weight Start Date: 01/08/21 Status: Ordered SEROquel 100 mg oral tablet 100 mg, 1, tablet, By Mouth, 2 times a day, # 60 tablet, Refills 2, Tot. Refills 2, Maintenance, 09/21/19 10:41:00 EDT, Route to Pharmacy Electronically, [facility]/pharmacy #[id number], 172, cm, 09/05/19 [...] each, 1 Refills, Maintenance, 12/10/20 11:14:00 EDT, [facility]/pharmacy #[id number], 175, cm, 09/21/20 11:29:00 EDT, Height, 83... Start Date: 12/10/20 Status: Ordered Trulicity Pen 0.75 mg/0.5 mL subcutaneous solution 0.5 mL = 0.75 mg, Subcutaneous Injection, Every week, # 2.5 mL, 11 Refills, Maintenance, 12/24/20 11:37:00 EDT, Solution, [facility]/pharmacy #[id number], Partial fill [...] 1, 2 Active Cigarette smoker(Confirmed) Active ASHD; [place] 2012/stent circumfl ex vessel [...] mild to moderate. 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
--- OUTSIDE RECORDS SUMMARY | 2024-06-01 11:59 | XMS_ITS | Continuity of Care Document ---
Author Organization [facility] Nando Escobar Lazaro lt Address [address] [place] [address]- Care Team Providers Care Institutional Commodity Analyst Name Role Phone Carrie Kelly RIVERA Primary Care Physician [phone] Encounter [facility] Date(s): 05/26/22 - 06/25/22 [facility] Nando Escobar Adult [address] [place] [address]- Allergies, Adverse Reactions, Alerts Substance Reaction Severity [...] 5 Refills, Maintenance, 02/11/22 11:48:00 EDT, Tablet, [facility]/pharmacy #[id number], 1 tablet By Mouth Daily,x30 days, 175, cm, 01/29/22 15:12:00 EDT, Height, 93, kg, 01/28/22 14:55:00 EDT, Dry Weight Start Date: 02/11/22 Stop Date: 08/10/22 Status: Ordered DilTIAZem (Eqv-Cardizem CD) 180 mg/24 hours oral capsule, extended release 1 capsule, By Mouth, Daily, # 90 capsule, 0 Refills, Maintenance, 05/21/22 13:33:00 EST, [facility] STORE 11835, 175, cm, 05/09/22 11:08:00 EDT, Height, 93, kg, 01/28/22 14:55:00 EDT, Dry Weight Start Date: 05/21/22 Status: Ordered docusate sodium 100 mg oral capsule 1 capsule, By Mouth, 2 times a day, PRN NEEDED FOR CONSTIPATION, # 60 capsule, 5 Refills, Maintenance, 06/05/21 15:57:00 EST, [facility]/pharmacy #[id number], 175.2, cm, 05/27/21 11:26:00 EST, Height, 88.3, kg, 03/12/21 9:16:00 EDT, Dry Weight Start Date: 06/05/21 Status: Ordered folic acid 1 mg oral tablet 1, tablet, By Mouth, Daily, # 30 tablet, Refills 5, Tot. Refills 5, Maintenance, 04/01/22 21:30:00 EDT, [id number] 175, cm, 02/14/22 10:10:00 EDT, [...] 01/21/19 11:25:36 EDT, Route to Pharmacy Electronically, [id number], [facility]/pharmacy #[id number] Start Date: 01/21/19 Stop Date: 05/21/19 Status: Ordered lisinopril 40 mg oral tablet 1 tablet, By Mouth, Daily, # 90 tablet, 1 Refills, Maintenance, 05/07/22 14:29:00 EDT, [facility] STORE 89217, 175, cm, 04/08/22 8:34:00 EDT, Height, 93, kg, 01/28/22 14:55:00 EDT, Dry Weight Start Date: 05/07/22 Status: Ordered Metoprolol Tartrate 50 mg oral tablet 1.5 tablet, By Mouth, 2 times a day, # 270 tablet, 0 Refills, 05/21/22 10:19:00 EST, [id number], 175, cm, 05/09/22 11:08:00 EDT, Height, 93, kg, 01/28/22 14:55:00 EDT, Dry Weight Start Date: 05/21/22 Status: Ordered nicotine 14 mg/24 hr transdermal film, extended release 1 patch, Topically, Daily, for 30 days, # 30 patch, 1 Refills, Acute 06/27/22 15:44:00 EST, 04/28/22 15:44:00 EDT, Patch, [id number], 1 patch Topically Daily,x30 days, 175, cm, 04/08/22 8:34:00 EDT, Height, 93, kg, 01/28/22 14:55:00 EDT, Dry W... Start Date: 04/28/22 Stop Date: 06/27/22 Status: Ordered nicotine 14 mg/24 hr transdermal film, extended release 1 patch, Topically, Daily, for 30 days, # 14 patch, 0 Refills, Acute 07/27/22 15:44:00 EST, 06/27/22 15:44:00 EST, Patch, [id number], 1 patch Topically Daily,x30 [...] # 15 Unknown, 2 Refills, [facility], 175.2, cm, 05/27/21 11:26:00 EST, Height, 88.3, kg, 03/12/21 9:16:00 EDT, Dry Weight Start Date: 06/04/21 Status: Ordered Pen [place], 31 G x 5 mm BD Ultra [...] 5 Refills, Maintenance, 04/08/22 9:12:00 EDT, Capsule, [facility]/pharmacy #0843, 175, cm, 04/08/22 8:34:00 EDT, Height, 93, kg, 01/28/22 14:55:00 EDT, Dry Weight Start Date: 04/08/22 Status: Ordered rosuvastatin 20 mg oral tablet 1 tablet, By Mouth, Daily, # 90 tablet, 1 Refills, Maintenance, 05/21/22 13:33:00 EST, [facility], 175, cm, 05/09/22 11:08:00 EDT, Height, 93, kg, 01/28/22 14:55:00 EDT, Dry Weight Start Date: 05/21/22 Status: Ordered SEROquel 100 mg oral tablet 100 mg, 1, tablet, By Mouth, 2 times a day, PRN, # 1 tablet, Refills 2, Tot. Refills 2, Maintenance, Anxiety, 09/21/19 10:41:00 EDT, Route to Pharmacy Electronically, [facility]/pharmacy #[id number], 172, cm, 09/05/19 16:17:00 EST, Height, 97.8, kg, 08/11/19 5:24:... Start Date: 09/21/19 Status: Ordered SEROquel 400 mg oral tablet 1 tablet = 400 mg, By Mouth, Daily at bedtime, # 30 tablet, 3 Refills, Maintenance, 01/21/19 11:24:55 EDT, Tablet Start Date: 01/21/19 Status: Ordered Simbrinza 1%- 0.2% ophthalmic suspension 1 drops, Eyes, Both, 2 times a day, for 30 days, further refills to come from your eye doctor, # 8 mL, 0 Refills, Acute 07/11/22 20:57:00 EST, 06/11/22 20:57:00 EST, Suspension, [id number], 1drops Eyes, Both 2 times a day,x30 days,Instr:furth... Start Date: 06/11/22 Stop Date: 07/11/22 Status: Ordered Tresiba FlexTouch 200 units/mL subcutaneous [...] 4, GFR 15-29 ml/min Confirmed Active ASHD; [place] 2012/stent circumflex vessel cath;abdelrahman 2018 3 Confirmed [...] mild to moderate. 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 524 weeks therapy with sofosbuvir/weight based ribavirin 44196 inferolateral stent bare metal circumflex 7DR Molddovernmateo [...] Name: Jeffrey Mccoy MD Position: [facility] Renal MD Member Role: Lifetime Consulting Physician Address: Address: [address] [facility] [place] [address]- Name: Kelly Butler NP Position: [facility] PCO Associate Professional Member Role: PCP Address: Address: [address] [place] [address]- Name: Kristin Mckenzie Position: [facility] Outreach Member Role: Lifetime Consulting Physician Name: Prieto Tobin RN Position: [facility] RN Member Role: Primary Care Nurse Name: Jonn Hui DO Position: [facility] Renal MD Member Role: Lifetime Consulting Physician Address: Address: [address] [place], [place] [address] [place] [address]- Name: Luis Angel Stephen RN Position: [facility] RN Member Role: Primary Care Nurse Name: Tamie Baird RN Position: [facility] RN Member Role: Primary Care Nurse Care Team Related Persons Name: CARLOS A BORDEN Address: [address] [place] [address] Name: LEVI BORDEN Address: [address] [place] [address]
--- OUTSIDE RECORDS SUMMARY | 2024-06-01 11:59 | XMS_ITS | Continuity of Care Document ---
Author Organization [facility] Lazaro lt Address [address] [place] [address]- Care Team Providers Care Lure Maker Name Role Phone Carrie Kelly RIVERA Primary Care Physician [place] [facility] [place]12[place]24 [place] 03/13/24 [facility] Adult [address] [place] [address]- Allergies, Adverse Reactions, Alerts Substance Reaction Severity Status Bee Stings Active Immunizations Given and Recorded Vaccine Date Status Refusal Reason SARS-CoV-2(COVID-19)mRNA-LNP vac([id number]) 12/31/23 Recorded SARS-CoV-2(COVID-19)mRNA-LNP vac([id number]) 05/08/23 Recorded tetanus/diphtheria/pertussis, acel(Tdap) 10/15/23 Recorded tetanus/diphtheria/pertussis, [...] 02/03/23 Recorded zoster vaccine, inactivated 08/09/19 Recorded [id number] 12y+ bivalent booster vax 05/17/22 Recorded SARS-CoV-2 [...] adult vaccine 4 12/10/10 Given 1Result Comment: [id number] 2Result Comment: [id number] 3Admin Note: pt waited 10 mins post [...] 02/02/24 15:26:00 EDT, Route to Pharmacy Electronically, [facility]/pharmacy #... Start Date: 02/02/24 Status: Ordered Aerochamber See Instructions, # 1 each, Maintenance, always use with inhaler, 02/02/24 15:25:00 EDT, Supply, 168, cm, 02/02/24 14:20:00 EDT, Height Start Date: 02/02/24 Status: Ordered Albuterol (Eqv-Ventolin HFA) 90 mcg/inh inhalation aerosol 2 puffs, Inhalation, Every 4 hours, PRN cough, SOB, wheeze, # 18 Gm, 0 Refills, Maintenance, 02/02/24 15:25:00 EDT, [id number], with dose counter. any albuterol inhaler covered [...] Maintenance, 03/11/24 11:59:00 EDT,Route to Pharmacy Electronically, [id number], Partial fill [...] day prn cough (Max 600 mg in n01-yswh period), # 30 capsule, 0 Refills, Maintenance, [...] 02/29/24 11:18:00 EDT, Route to Pharmacy Electronically, [facility]/pharmacy #[id number], Partial fill upon patient request if the prescriptio... Start Date: 02/29/24 Stop Date: 03/14/24 Status: Ordered D3 50 mcg (2000 intl units) oral capsule 1 capsule, By Mouth, Daily, # 90 capsule, 0 Refills, Maintenance, 12/09/23 14:09:00 EDT, [facility]/pharmacy #[id number], 168, cm, 10/27/23 15:34:00 EDT, Height, 93, kg, 01/28/22 14:55:00 EDT, Dry Weight Start Date: 12/09/23 Status: Ordered Daily Simone oral tablet 1 tablet, By Mouth, Daily, # 90 tablet, 1 Refills, Maintenance, 01/25/24 16:01:00 EDT, [facility]/pharmacy#0843, 90, 1 tablet By Mouth Daily, 168, cm, 01/11/24 14:42:00 EDT, Height, 93, kg, 01/28/22 14:55:00 EDT, Dry Weight Start Date: 01/25/24 Status: Ordered dapagliflozin 10 mg oral tablet 1 tablet = 10 mg, By Mouth, Daily, # 30 tablet, 0 Refills, Maintenance, 01/11/24 14:46:00 EDT, Tablet, [facility]/pharmacy #0843, Partial fill upon patient request if the prescription is for a schedule II opioid drug., 168, cm, 01/11/24 14:42:00 EDT, Height,... Start Date: 01/11/24 Status: Ordered Flonase Allergy Relief 50 mcg/inh nasal spray See Instructions, 1 sprays Daily in each nostril, # 16 Gm, 0 Refills, Maintenance, 02/15/24 13:39:00 EDT, [facility]/pharmacy #[id number], Partial fill upon patient request if the prescription is for a schedule II opioid drug., 168, cm, 02/03/24 10:41:00 EDT, Height Start Date: 02/15/24 Status: Ordered folic acid 1 mg oral tablet 1, tablet, By Mouth, Daily, # 90 tablet, Refills 1, Tot. Refills 1, Maintenance, 02/17/24 7:23:00 EDT, Route to Pharmacy Electronically, [facility]/pharmacy #[id number], 168, cm, [...] 01/21/19 11:25:36 EDT, Route to Pharmacy Electronically, [id number], [facility]/pharmacy #[id number] Start Date: [...] tablet, 0 Refills, Maintenance, 10/03/22 15:53:00 EDT, [facility]/pharmacy #[id number], 175, cm, [...] mL, 0 Refills, Maintenance, 02/02/24 15:28:00 EDT, [place], [facility]/pharmacy #[id number], Partial fill upon patient... Start Date: 02/02/24 Status: Ordered Pen [place], 31 G x 5 mm BD Ultra [...] Refills, Maintenance, 02/04/24 16:39:00 EDT, [facility], 168, cm, 02/03/24 10:41:00 EDT, Height Start Date: 02/04/24 Status: Ordered senna - oral tablet 2 tablet, By Mouth, Daily at bedtime, PRN for constipation, for 14 days, # 28 tablet, 0 Refills, Acute 03/14/24 11:19:00 EDT, 02/29/24 11:19:00 EDT, Tablet, [facility]/pharmacy #[id number], Partial fill [...] ml/min Confirmed Active ASHD; [place] 2012/stent circumflex 2012/vessel cath;abdelrahman 2018 3 Confirmed [...] mild to moderate. 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 524 weeks therapy with sofosbuvir/weight based ribavirin 22526 inferolateral stent bare metal circumflex 7DR Moldcathy [...] Personnel Name: Jeffrey Mccoy MD Position: [facility] Renal MD Member Role: Lifetime Consulting Physician Address: Address: [address] [place], [place] [address] [place], [place] [address] Name: Kelly Butler NP Position: [facility] PCO Associate Professional Member Role: PCP Address: Address: [address] [place] [id number] Name: Kristin Mckenzie Position: [facility] Outreach Member Role: Lifetime Consulting Physician Name: Fortunato Sin RN Position: [facility] RN Member Role: Primary Care Nurse Name: Nury Watts RN Position: [facility] RN Member Role: Primary Care Nurse Name: Antonia Mena NP Position: [facility] Associate Professional Member Role: Lifetime Consulting Provider Address: Address: [address] [place], [place] [address] [place], [place] [address] Name: Prieto Tobin RN Position: [facility] RN Member Role: Primary Care Nurse Name: Ashleigh Reynoso RN Position: [facility] RN Member Role: Primary Care Nurse Name: Jonn Hui DO Position: [facility] Renal MD Member Role: Lifetime Consulting Physician Address: Address: [address] [place], [place] [address] [place], [place] [address] Name: Luis Angel Stephen RN Position: S RN Member Role: Primary Care Nurse Name: Brandan Nogueira RN Position: S RN Member Role: Primary Care Nurse Care Team Related Persons Name: CARLOS A BORDEN Address: [address] [place] [address] Name: LEVI BORDEN Address: [address] [place] [address]
--- OUTSIDE RECORDS SUMMARY | 2024-06-01 11:59 | XMS_ITS | Continuity of Care Document ---
Author Organization [facility] ialty Address [address] [place] [address]- Care Team Providers Care Belt Loop Machine Operator Name Role Phone Ben Viera MD Primary Care Physician [phone] [place] [facility] [place] Date(s): 04/21/19 - 08/18/19 [facility] [address] [place] [address]- [place] Attending Physician: Panda Schmid MD Referring Physician: Ben Viera MD Allergies, [...] 10:48:07 EST, Aerosol, Route to Pharmacy Electronically, [id number], [id number], 180, cm, 06/17/19 10:36:11 EST, Height Start Date: 06/17/19 Status: Ordered aspirin 81 mg oral tablet 1 tablet = 81 mg, By Mouth, Daily, # 30 tablet, 11 Refills, Maintenance, 09/03/19 14:22:00 EST, Tablet, [facility]/pharmacy #[id number], 180, cm, 08/01/19 10:43:00 EST, Height Start Date: 09/03/19 Stop Date: 08/28/20 Status: Ordered aspirin 81 mg oral tablet 1 tablet = 81 mg, By Mouth, Daily, for 30 days, # 30 tablet, 11 Refills, Hard Stop 09/03/19 14:22:51 EST, 09/08/18 14:22:51 EST, Tablet, [facility]/pharmacy #[id number] Start Date: 09/08/18 Stop [...] 08/16/19 14:00:00 EST, CR Capsule, [facility]/pharmacy #[id number], 172, cm, 08/11/19 13:32:00 EST, Height, [...] 05/09/19 9:31:26 EST, Route to Pharmacy Electronically, [id number], [facility]/pharmacy #[id number] Start Date: 05/09/19 Status: Ordered Colace sodium 100 mg oral capsule 100 mg, 1, capsule, By Mouth, 2 times a day, PRN, # 60 capsule, Refills 5, Tot. Refills 5, Maintenance, for constipation, 04/25/19 13:50:52 EDT, Route to Pharmacy Electronically, [id number], [facility]/pharmacy #[id number] Start Date: 04/25/19 Status: [...] 02/14/19 16:39:14 EDT, Route to Pharmacy Electronically, [id number], [facility]/pharmacy #[id number] Start Date: 02/14/19 Status: [...] 01/21/19 11:25:36 EDT, Route to Pharmacy Electronically, [id number], [facility]/pharmacy #[id number] Start Date: 01/21/19 [...] EST, Route to Pharmacy Electronically, [facility]/pharmacy #[id number], 180, cm, 06/17/19 10:36:11 EST, Height Start Date: 06/21/19 Status: Ordered metoprolol 50 mg oral tablet 75 mg, 1.5, tablet, By Mouth, 2 times a day, stop metoprolol 50 mg twice daily, # 180 tablet, Refills 2, Tot. Refills 2, Maintenance, 02/28/19 16:02:16 EDT, Route to Pharmacy Electronically, [id number], [facility]/pharmacy #[id number] Start Date: 02/28/19 Status: Ordered nicotine 2 mg oral transmucosal lozenge 1 lozenge = 2 mg, By Mouth, Every 2 hours, SUCK UP TO Q1 HOURS 10 DAILY, # 144 lozenge, 2 Refills, Maintenance, 07/15/19 12:34:00 EST, [facility]/pharmacy #[id number], 1 lozenge By Mouth [...] 911 IF PAIN NOT RELIEVED, [facility]/pharmacy #[id number] Start Date: 02/17/19 Status: Ordered NovoLOG FlexPen 100 units/mL subcutaneous solution See Instructions, # 15 Unknown, Refills 5 Tot. Refills 5, INJECT 0-18 UNITS SUBCUTANEOUSLY WITH MEALS FOR SLIDING SCALES, [facility]/pharmacy #[id number] Start Date: 01/04/19 Status: Ordered Pen [place], 31 G x 5 mm BD Ultra [...] 01/21/19 11:26:23 EDT, Route to Pharmacy Electronically, [id number], [facility]/pharmacy #[id number] Start Date: 01/21/19 Status: [...] EST, Tablet, this was previously sent to [facility] pharmacy Start Date: 05/17/19 Stop Date: 05/11/20 Status: Ordered Tresiba FlexTouch 200 units/mL subcutaneous solution = 90 units, Subcutaneous Infusion, Daily, at bedtime, # 15 mL, 5 Refills, Maintenance, 08/04/19 13:13:00 EST, [facility]/pharmacy #[id number], 180, cm, 08/01/19 10:43:00 [...] 524 weeks therapy with sofosbuvir/weight based ribavirin 12002 inferolateral stent bare metal circumflex 7DR Marissa sx;Dr Schwartz 8repeat colonoscopy in 5 years Social History Social History Type Response Smoking Status Former smoker, quit more than 30 days ago entered on: 12/22/18 Sex
--- OUTSIDE RECORDS SUMMARY | 2024-06-01 11:59 | XMS_ITS | Continuity of Care Document ---
Author Organization [facility] Nando Escobar Lazaro lt Address [address] [place] [address]- Care Team Providers Care Neonatal Doctor Name Role Phone Carrie [employer] [employer] OFFIC[employer] Primary Care Physician Encounter [facility] Date(s): 11/13/22 - 12/13/22 [facility] Adult [address] [place] [address]- Allergies, Adverse Reactions, Alerts Substance Reaction Severity [...] influenza virus vaccine, inactivated 04/16/10 Give n [id number] 12y+ bivalent booster vax 05/17/22 Recorded SARS-CoV-2 [...] capsule, 5 Refills, Maintenance, 07/18/22 11:59:00 EST, [facility]/pharmacy #[id number], 175, cm, 07/17/22 10:33:00 EST, Height, 93, kg, 01/28/22 14:55:00 EDT, Dry Weight Start Date: 07/18/22 Status: Ordered Flonase 50 mcg/inh nasal spray 1 sprays, Nares, Both, 2 times a day, # 16 Gm, 0 Refills, Maintenance, 09/05/22 9:15:00 EST, [place],[facility]/pharmacy #[id number], Partial fill upon patient request if the prescription is for a schedule II opioid drug., 1 sprays Nares, Both 2 times a day, 175, c... Start Date: 09/05/22 Status: Ordered folic acid 1 mg oral tablet 1, tablet, By Mouth, Daily, # 30 tablet, Refills 5, Tot. Refills 5, Maintenance, 08/15/22 10:27:00 EST, Route to Pharmacy Electronically, [facility]/pharmacy #[id number], 175, cm, 07/17/22 [...] 01/21/19 11:25:36 EDT, Route to Pharmacy Electronically, [id number], [facility]/pharmacy #[id number] Start Date: 01/21/19 Stop Date: 05/21/19 Status: Ordered lisinopril 40 mg oral tablet 1 tablet, By Mouth, Daily, # 90 tablet, 0 Refills, Maintenance, 10/24/22 10:11:00 EDT, [facility]/pharmacy#0843, 175, cm, 10/09/22 16:51:00 EDT, Height, 93, kg, 01/28/22 14:55:00 EDT, Dry Weight Start Date: 10/24/22 Status: Ordered Metoprolol Tartrate 50 mg oral tablet 1.5 tablet, By Mouth, 2 times a day, # 270 tablet, 1 Refills, Maintenance, 09/01/22 13:28:00 EST, [facility] STORE [facility], 175, cm, 07/17/22 10:33:00 EST, Height, 93, kg, 01/28/22 14:55:00 EDT, Dry Weight Start Date: 09/01/22 Status: Ordered Nicotine 7 mg/24 hour patch 1 patch, Topically, Daily, # 30 patch, 0 Refills, Maintenance, 11/17/22 11:45:00 EDT, Patch, [facility]/pharmacy #[id number], Partial fill upon [...] tablet, 0 Refills, Maintenance, 10/03/22 15:53:00 EDT, [facility]/pharmacy #0843, 175, cm, 09/17/22 13:59:00 EDT, Height,... Start Date: 10/03/22 Status: Ordered NovoLOG FlexPen 100 units/mL injectable solution See Instructions, INJECT 0-18 UNITS SUBCUTANEOUSLY WITH MEALS FOR SLIDING SCALES, # 15 Unknown, 2 Refills, 11/07/22 0:09:00 EDT, [facility]/pharmacy #[id number], 175, cm, 10/09/22 16:51:00 EDT, Height, 93, kg, 01/28/22 14:55:00 EDT, Dry Weight Start Date: 11/07/22 Status: Ordered Pen [place], 31 G x 5 mm BD Ultra [...] capsule, 2 Refills, Maintenance, 08/07/22 12:55:00EST, Capsule, [facility]/pharmacy #0843, 175, cm, 07/17/22 10:33:00 EST, Height, 93, kg, 01/28/22 14:55:00EDT, Dry Weight Start Date: 08/07/22 Status: Ordered rosuvastatin 20 mg oral tablet 1 tablet, By Mouth, Daily, # 90 tablet, 1 Refills, Maintenance, 05/21/22 13:33:00 EST, [facility], 175, cm, 05/09/22 11:08:00 EDT, Height, 93, kg, 01/28/22 14:55:00 EDT, Dry Weight Start Date: 05/21/22 Status: Ordered Senna 8.6 mg oral tablet 1 or 2 tablets, By Mouth, Daily at bedtime, PRN, # 60 tablet, Refills 5, Tot. Refills 5, Maintenance, Constipation, 11/03/22 15:04:00 EDT, Route to Pharmacy Electronically, [facility]/pharmacy #[id number] Tablet,Partial fill upon patient request if the prescripti... Start Date: 11/03/22 Status: Ordered SEROquel 100 mg oral tablet 100 mg, 1, tablet, By Mouth, 2 times a day, PRN, # 1 tablet, Refills 2, Tot. Refills 2, Maintenance, Anxiety, 09/21/19 10:41:00 EDT, Route to Pharmacy Electronically, [facility]/pharmacy #[id number], 172, cm, 09/05/19 [...] 9 Unknown, 1 Refills, 01/21/22 15:39:00 EDT, [facility]/pharmacy #0843, 175.2, cm, 12/18/21 14:10:00 EDT, Height... Start Date: 01/21/22 Status: Ordered Trulicity Pen 0.75 mg/0.5 mL subcutaneous solution 0.5 mL = 0.75 mg, Subcutaneous Injection, Every week, # 2.5 mL, 2 Refills, Maintenance, 04/08/22 9:12:00 EDT, Solution, [facility]/pharmacy #[id number], Partial fill upon [...] 4, GFR 15-29 ml/min Confirmed Active ASHD; [place] 2012/stent circumflex vessel cath;abdelrahman 2018 3 Confirmed [...] mild to moderate. 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 2013/[place] 4secondary to hep C 524 weeks therapy with sofosbuvir/weight based ribavirin 41386 inferolateral stent bare metal circumflex 7DR Marissa [...] Team Personnel Name: Jeffrey Mccoy MD Position: [facility] Renal MD Member Role: Lifetime Consulting Physician Address: Address: [address] [place] [address] [facility] [place] [address]- Name: Kelly Butler NP Position: [facility] PCO Associate Professional Member Role: PCP Address: Address: [address] [place] [address]- Name: Kristin Mckenzie Position: [facility] Outreach Member Role: Lifetime Consulting Physician Name: Prieto Tobin RN Position: S RN Member Role: Primary Care Nurse Name: Jonn Hui DO Position: [facility] Renal MD Member Role: Lifetime Consulting Physician Address: Address: [address] [place], [place] [address] [place] [address]- Name: Luis Angel Stephen RN Position: [facility] RN Member Role: Primary Care Nurse Name: Tamie Baird RN Position: S RN Member Role: Primary Care Nurse Care Team Related Persons Name: CARLOS A BORDEN Address: [address] [place] [address] Name: LEVI BORDEN Address: [address] [place] [address]
--- OUTSIDE RECORDS SUMMARY | 2024-06-01 11:59 | XMS_ITS | Continuity of Care Document ---
Author Organization [facility] Address [address] [place] [address]- Care Team Providers Care Digital Commentator Name Role Phone Carrie Kelly RIVERA Primary Care Physician [phone] Encounter [facility] [place] Date(s): 07/24/23 - 08/23/23 [facility] [address] [place] [id number] Allergies, Adverse Reactions, Alerts Substance Reaction Severity Status Bee Stings Active Immunizations Given and Recorded Vaccine Date Status Refusal Reason SARS-CoV-2(COVID-19)mRNA-LNP vac([id number]) 05/08/23 Recorded pneumococcal 20-valent conjugate vaccine 1 [...] 02/03/23 Recorded zoster vaccine, inactivated 08/09/19 Recorded [id number] 12y+ bivalent booster vax 05/17/22 Recorded SARS-CoV-2 [...] adult vaccine 4 12/10/10 Given 1Result Comment: [id number] 2Result Comment: [id number] 3Admin Note: pt waited 10 mins post inj no adverse reaction noted.j a 4Admin Note: PT WAITED 10 MIN WITH NO ADVERSE REACTION. MH Medications aspirin 81 mg oral delayed release tablet 1 tablet, By Mouth, Daily, # 90 tablet, 1 Refills, Maintenance, 06/02/23 11:42:00 EST, [facility]/pharmacy#0843, 168, cm, 05/01/23 14:45:00 EDT, Height, 93, [...] capsule, 1 Refills, Maintenance, 06/30/23 7:20:00 EST, [facility] STORE 80269, 168, cm, 05/01/23 14:45:00 EDT, Height, 93, kg, 01/28/22 14:55:00 EDT, Dry Weight Start Date: 06/30/23 Status: Ordered Daily Simone oral tablet 1 tablet, By Mouth, Daily, # 90 tablet, 1 Refills, Maintenance, 06/30/23 7:20:00 EST, [facility] STORE 59577, 90, TAKE 1 TABLET BY MOUTH EVERY [...] Refills, Maintenance, 06/26/23 6:50:00 EST, [facility], 168, cm, 05/01/23 14:45:00 EDT, Height, 93, kg, 01/28/22 14:55:00 EDT, Dry Weight Start Date: 06/26/23 Status: Ordered folic acid 1 mg oral tablet 1, tablet, By Mouth, Daily, # 90 tablet, Refills 1, Tot. Refills 1, Maintenance, 07/03/23 10:01:00 EST, Route to Pharmacy Electronically, [facility]/pharmacy #[id number], 168, cm, 05/01/23 14:45:00 EDT, [...] 01/21/19 11:25:36 EDT, Route to Pharmacy Electronically, [id number], [facility]/pharmacy #[id number] Start Date: 01/21/19 Stop Date: 05/21/19 Status: Ordered lamotrigine 100 mg oral tablet Refills 0, Maintenance, 05/01/23 15:28:00 EDT, Partial fill upon patient request if the prescription is for a schedule II opioid drug. Start Date: 05/01/23 Status: Ordered lisinopril 40 mg oral tablet 1 tablet, By Mouth, Daily, # 90 tablet, 1 Refills, Maintenance, 08/17/23 13:33:00 EST, [facility]/pharmacy#0843, 168, cm, 07/23/23 15:05:00 EST, Height, 93, kg, 01/28/22 14:55:00 EDT, Dry Weight Start Date: 08/17/23 Status: Ordered Metoprolol Tartrate 50 mg oral tablet 1.5 tablet, By Mouth, 2 times a day, # 270 tablet, 1 Refills, Maintenance, 02/20/23 7:15:00 EDT, [facility] STORE 09691, 175, cm, 10/09/22 16:51:00 EDT, Height, 93, kg, 01/28/22 14:55:00 EDT, Dry Weight Start Date: 02/20/23 Status: Ordered nicotine 14 mg/24 hr transdermal film, extended release See Instructions, apply to skin, # 14 patch, 1 Refills, Maintenance, 07/23/23 15:53:00 EST, Patch, [facility]/pharmacy #[id number], Partial fill upon [...] tablet, 0 Refills, Maintenance, 10/03/22 15:53:00 EDT, [facility]/pharmacy #0843, 175, cm, 09/17/22 13:59:00 EDT, Height,... Start Date: 10/03/22 Status: Ordered NovoLOG FlexPen 100 units/mL injectable solution See Instructions, INJECT 0-18 UNITS SUBCUTANEOUSLY WITH MEALS FOR SLIDING SCALES, # 15 Unknown, 2 Refills, 11/07/22 0:09:00 EDT, [facility]/pharmacy #[id number], 175, cm, 10/09/22 16:51:00 EDT, Height, 93, kg, 01/28/22 14:55:00 EDT, Dry Weight Start Date: 11/07/22 Status: Ordered Pen [place], 31 G x 5 mm BD Ultra [...] capsule, 2 Refills, Maintenance, 07/03/23 9:40:00 EST, [facility]/pharmacy #0843, Partial fill upon patient request if the prescription is for a schedule II opioid drug., 168, cm, 05/01/23 14:45:00 EDT, Height, 93, kg... Start Date: 07/03/23 Status: Ordered rosuvastatin 20 mg oral tablet 1 tablet, By Mouth, Daily, # 90 tablet, 1 Refills, Maintenance, 03/29/23 14:43:00 EDT, [facility] STORE 33928, 175, cm, 10/09/22 16:51:00 EDT, Height, 93, [...] ml/min Confirmed Active ASHD; [place] 2012/stent circumflex 2012/vessel cath;abdelrahman 2018 3 Confirmed [...] 524 weeks therapy with sofosbuvir/weight based ribavirin 13935 inferolateral stent bare metal circumflex 7DR Marissa [...] Team Personnel Name: Jeffrey Mccoy MD Position: [facility] Renal MD Member Role: Lifetime Consulting Physician Address: Address: [address] [place] [address] [facility] [place] [address]- Name: Kelly Butler NP Position: [facility] PCO Associate Professional Member Role: PCP Address: Address: [address] [place] [address]- Name: Kristin Mckenzie Position: [facility] Outreach Member Role: Lifetime Consulting Physician Name: Prieto Tobin RN Position: [facility] RN Member Role: Primary Care Nurse Name: Jonn Hui DO Position: [facility] Renal MD Member Role: Lifetime Consulting Physician Address: Address: [address] [place], [place] [address] [place] [address]- Name: Luis Angel Stephen RN Position: [facility] RN Member Role: Primary Care Nurse Care Team Related Persons Name: CARLOS A BORDEN Address: [address] [place] [address] Name: LEVI BORDEN Address: [address] [place] [address]
--- OUTSIDE RECORDS SUMMARY | 2024-06-01 11:59 | XMS_ITS | Continuity of Care Document ---
Author Organization [facility] Nando Escobar Lazaro lt Address [address] [place] [address]- Care Team Providers Care Residential Team Leader Name Role Phone Carrie Kelly RIVERA Primary Care Physician [facility] Date[facility]): 01/27/22 - 02/26/22 [facility] Nando Escobar Adult [address] [place] [address]- Allergies, Adverse Reactions, Alerts Substance Reaction Severity [...] Refills, Maintenance, 06/05/21 15:57:00 EST, [facility]/pharmacy #[id number], 175.2, cm, 05/27/21 11:26:00 EST, Height, 88.3, kg, 03/12/21 9:16:00 EDT, Dry Weight Start Date: 06/05/21 Status: Ordered folic acid 1 mg oral tablet 1, tablet, By Mouth, Daily, # 30 tablet, Refills 5, Tot. Refills 5, Maintenance, 07/25/21 15:59:00 EST, Route to Pharmacy Electronically, [facility]/pharmacy #[id number], 175.2, cm, 06/07/21 9:51:00 EST, [...] 01/21/19 11:25:36 EDT, Route to Pharmacy Electronically, [id number], [facility]/pharmacy #[id number] Start Date: 01/21/19 Stop Date: 05/21/19 Status: Ordered lisinopril 40 mg oral tablet 1 tablet = 40 mg, By Mouth, Daily, # 30 tablet, 3 Refills, Maintenance, 09/17/21 10:50:00 EDT, Tablet, [facility]/pharmacy #[id number], Partial fill upon patient request if the prescription is for a schedule II opioid drug., 175.2, cm, 07/31/21 11:20:00 EST, Heigh... Start Date: 09/17/21 Status: Ordered Metoprolol Tartrate 50 mg oral tablet 1.5 tablet, By Mouth, 2 times a day, # 270 tablet, 0 Refills, [facility], 175.2, cm, 11/15/21 11:18:00 EDT, Height, 88.3, kg, 03/12/21 9:16:00 EDT, Dry Weight Start Date: 12/12/21 Status: Ordered nicotine 21 mg/24 hr transdermal film, extended release 1 patch, Topically, Daily, for 30 days, # 30 patch, 1 Refills, Acute 04/18/22 14:19:00 EDT, 02/17/22 14:19:00 EDT, Patch, [facility]/pharmacy #[id number], 1 patch Topically Daily,x30 days, [...] Refills, Maintenance, 12/31/21 17:21:00 EDT, [facility]/pharmacy #[id number], 175.2, cm, 12/18/21 14:10:00 EDT, Height... Start Date: 12/31/21 Status: Ordered NovoLOG FlexPen 100 units/mL injectable solution See Instructions, INJECT 0-18 UNITS SUBCUTANEOUSLY WITH MEALS FOR SLIDING SCALES, # 15 Unknown, 2 Refills, [facility], 175.2, cm, 05/27/21 11:26:00 EST, Height, 88.3, kg, 03/12/21 9:16:00 EDT, Dry Weight Start Date: 06/04/21 Status: Ordered Pen [place], 31 G x 5 mm BD Ultra [...] Refills, Maintenance, 11/19/21 11:25:00EDT, Capsule, [facility]/pharmacy #[id number], 175.2, cm, 11/15/21 11:18:00 EDT, Height, 88.3, kg, 03/12/21 9:16:00 EDT, Dry Weight Start Date: 11/19/21 Status: Ordered rosuvastatin 20 mg oral tablet 1 tablet, By Mouth, Daily, # 90 tablet, 1 Refills, [facility] ST[facility] 77891, 175, cm, 01/29/22 15:12:00 EDT,Height, 93, kg, 01/28/22 14:55:00 EDT, Dry Weight Start Date: 01/30/22 Status: Ordered SEROquel 100 mg oral tablet 100 mg, 1, tablet, By Mouth, 2 times a day, PRN, # 1 tablet, Refills 2, Tot. Refills 2, Maintenance, Anxiety, 09/21/19 10:41:00 EDT, Route to Pharmacy Electronically, [facility]/pharmacy #[id number], 172, cm, 09/05/19 16:17:00 EST, [...] Maintenance, 12/18/21 14:33:00 EDT, Suspension, [facility]/pharmacy #[id number], 1 drops Eyes, Both 2 [...] # 30 capsule, 5 Refills, [facility], 175.2, cm, 11/15/21 11:18:00 EDT, Height, 88.3, kg, 03/12/21 9:16:00 EDT, Dry Weight Start Date: 11/17/21 Status: Ordered Problem List Condition Effective Dates Status Health Status Inform ant Bipolar disorder(Confirmed) Active Cervical spondylosis(Confirmed) Active Chronic back pain DJD(Confirmed) Active Glomerulonephritis,mesangial proliferative/fibrillary(Confirmed) 1, 2 Active Chronic renal failure, stage 4 (severe)(Confirmed) Active ASHD; [place] 2012/stent circumfl ex vessel [...] mild to moderate. 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
--- OUTSIDE RECORDS SUMMARY | 2024-06-01 11:59 | XMS_ITS | Continuity of Care Document ---
Author Organization [facility] Address [address] [place] [address]- Care Team Providers Care Yellow Pages Space Salesperson Name Role Phone Carrie Kelly RIVERA Primary Care Physician [facility] Date[facility]s): 09/23/23 - 10/23/23 [facility] [address] [place], [place] [address] Attending Physician: AdmRadha kate Admitting Physician: Admtr, [id number] Referring Physician: Admtr, [id number] Allergies, Adverse Reactions, Alerts Substance Reaction Severity Status Bee Stings Active Immunizations Given and Recorded Vaccine Date Status Refusal Reason tetanus/diphtheria/pertussis, acel(Tdap) 10/15/23 Recorded tetanus/diphtheria/pertussis, acel(Tdap) 07/28/11 Given SARS-CoV-2(COVID-19)mRNA-LNP vac([id number]) 05/08/23 Recorded pneumococcal 20-valent conjugate vaccine 1 [...] 02/03/23 Recorded zoster vaccine, inactivated 08/09/19 Recorded [id number] 12y+ bivalent booster vax 05/17/22 Recorded SARS-CoV-2 [...] adult vaccine 4 12/10/10 Given 1Result Comment: [id number] 2Result Comment: [id number] 3Admin Note: pt waited 10 mins post inj no adverse reaction noted.thierno kong 4Admin Note: PT WAITED 10 MIN WITH NO ADVERSE REACTION. Medications aspirin 81 mg oral delayed release tablet 1 tablet, By Mouth, Daily, # 90 tablet, 1 Refills, Maintenance, 06/02/23 11:42:00 EST, [facility]/pharmacy#[id number], 168, cm, 05/01/23 14:45:00 EDT, Height, 93, [...] Refills, Maintenance, 06/30/23 7:20:00 EST, [facility], 168, cm, 05/01/23 14:45:00 EDT, Height, 93, kg, 01/28/22 14:55:00 EDT, Dry Weight Start Date: 06/30/23 Status: Ordered Daily Simone oral tablet 1 tablet, By Mouth, Daily, # 90 tablet, 1 Refills, Maintenance, 06/30/23 7:20:00 EST, [facility], 90, TAKE 1 TABLET BY MOUTH EVERY [...] Refills, Maintenance, 06/26/23 6:50:00 EST, [facility], 168, cm, 05/01/23 14:45:00 EDT, Height, 93, kg, 01/28/22 14:55:00 EDT, Dry Weight Start Date: 06/26/23 Status: Ordered folic acid 1 mg oral tablet 1, tablet, By Mouth, Daily, # 90 tablet, Refills 1, Tot. Refills 1, Maintenance, 07/03/23 10:01:00 EST, Route to Pharmacy Electronically, [facility]/pharmacy #[id number], 168, cm, 05/01/23 14:45:00 EDT, Height, [...] 01/21/19 11:25:36 EDT, Route to Pharmacy Electronically, [id number], [facility]/pharmacy #[id number] Start Date: 01/21/19 Stop Date: 05/21/19 Status: Ordered lamotrigine 100 mg oral tablet Refills 0, Maintenance, 05/01/23 15:28:00 EDT, Partial fill upon patient request if the prescription is for a schedule II opioid drug. Start Date: 05/01/23 Status: Ordered lisinopril 40 mg oral tablet 1 tablet, By Mouth, Daily, # 90 tablet, 1 Refills, Maintenance, 08/17/23 13:33:00 EST, [facility]/pharmacy#[id number], 168, cm, 07/23/23 15:05:00 EST, Height, 93, kg, 01/28/22 14:55:00 EDT, Dry Weight Start Date: 08/17/23 Status: Ordered Metoprolol Tartrate 50 mg oral tablet 1.5 tablet, By Mouth, 2 times a day, # 270 tablet, 1 Refills, Maintenance, 09/16/23 14:32:00 EDT, [facility]/pharmacy #[id number], 168, cm, 07/23/23 15:05:00 EST, Height, 93, kg, 01/28/22 14:55:00 EDT, Dry Weight Start Date: 09/16/23 Status: Ordered nitroglycerin 0.4 mg sublingual tablet See Instructions, DISSOLVE 1 UNDER TONGUE EVERY 5 MINUTES NEEDED FOR CHEST PAIN CALL MD AFTER TAKING 3 TABS IN TOTAL IN A DAY, # 100 tablet, 0 Refills, Maintenance, 10/03/22 15:53:00 EDT, [facility]/pharmacy #[id number], 175, cm, 09/17/22 13:59:00 EDT, Height,... Start Date: 10/03/22 Status: Ordered NovoLOG FlexPen 100 units/mL injectable solution See Instructions, INJECT 0-18 UNITS SUBCUTANEOUSLY WITH MEALS FOR SLIDING SCALES, # 15 Unknown, 2 Refills, 11/07/22 0:09:00 EDT, [id number], 175, cm, 10/09/22 16:51:00 EDT, Height, 93, kg, 01/28/22 14:55:00 EDT, Dry Weight Start Date: 11/07/22 Status: Ordered Pen [place], 31 G x 5 mm BD Ultra [...] Refills, Maintenance, 03/29/23 14:43:00 EDT, [facility], 175, cm, 10/09/22 16:51:00 EDT, Height, 93, [...] ml/min Confirmed Active ASHD; [place] 2012/stent circumflex 2012/vessel cath;abdelrahman 2018 3 Confirmed [...] mild to moderate. 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 524 weeks therapy with sofosbuvir/weight based ribavirin 59558 inferolateral stent bare metal circumflex 7DR Molddoverno [...] Team Personnel Name: Jeffrey Mccoy MD Position: [facility] Renal MD Member Role: Lifetime Consulting Physician Address: Address: [address] [place] [address] [address] [facility] [place] [address]- Name: Kelly Butler NP Position: [facility] PCO Associate Professional Member Role: PCP Address: Address: [address] [place] [address]- Name: Kristin Mckenzie Position: [facility] Outreach Member Role: Lifetime Consulting Physician Name: Prieto Tobin RN Position: [facility] RN Member Role: Primary Care Nurse Name: Jonn Hui DO Position: [facility] Renal MD Member Role: Lifetime Consulting Physician Address: Address: [address] [place], [place] [address] [place], [place] [address] Name: Zafar CALVO, Luis Angel Rojas Position: [facility] RN Member Role: Primary Care Nurse Care Team Related Persons Name: CARLOS A BORDEN Address: [address] [place] [address] Name: LEVI BORDEN Address: [address] [place] [address]
--- OUTSIDE RECORDS SUMMARY | 2024-06-01 11:59 | XMS_ITS | Continuity of Care Document ---
Author Organization [facility] Nando Escobar Lazaro lt Address [address] [place] [address]- Care Team Providers Care Light Fixture Servicer Name Role Phone Carrie ECONOMIC DEVELOPMENT COORDINATORKelly Primary Care Physician [phone] [facility]counter [facility] Date[facility]s): 05/21/22 - 06/20/22 [facility] Nando Escobar Adult [address] [place] [address]- Allergies, Adverse Reactions, Alerts Substance Reaction Severity [...] 5 Refills, Maintenance, 02/11/22 11:48:00 EDT, Tablet, [facility]/pharmacy #[id number], 1 tablet By Mouth Daily,x30 days, 175, cm, 01/29/22 15:12:00 EDT, Height, 93, kg, 01/28/22 14:55:00 EDT, Dry Weight Start Date: 02/11/22 Stop Date: 08/10/22 Status: Ordered DilTIAZem (Eqv-Cardizem CD) 180 mg/24 hours oral capsule, extended release 1 capsule, By Mouth, Daily, # 90 capsule, 0 Refills, Maintenance, 05/21/22 13:33:00 EST, [facility] STORE 47449, 175, cm, 05/09/22 11:08:00 EDT, Height, 93, kg, 01/28/22 14:55:00 EDT, Dry Weight Start Date: 05/21/22 Status: Ordered docusate sodium 100 mg oral capsule 1 capsule, By Mouth, 2 times a day, PRN NEEDED FOR CONSTIPATION, # 60 capsule, 5 Refills, Maintenance, 06/05/21 15:57:00 EST, [facility]/pharmacy #[id number], 175.2, cm, 05/27/21 11:26:00 EST, Height, 88.3, kg, 03/12/21 9:16:00 EDT, Dry Weight Start Date: 06/05/21 Status: Ordered folic acid 1 mg oral tablet 1, tablet, By Mouth, Daily, # 30 tablet, Refills 5, Tot. Refills 5, Maintenance, 04/01/22 21:30:00 EDT, [id number] 175, cm, 02/14/22 10:10:00 EDT, Height, [...] 01/21/19 11:25:36 EDT, Route to Pharmacy Electronically, [id number], [facility]/pharmacy #[id number] Start Date: 01/21/19 Stop Date: 05/21/19 Status: Ordered lisinopril 40 mg oral tablet 1 tablet, By Mouth, Daily, # 90 tablet, 1 Refills, Maintenance, 05/07/22 14:29:00 EDT, [facility] STORE 11530, 175, cm, 04/08/22 8:34:00 EDT, Height, 93, [...] # 15 Unknown, 2 Refills, [facility], 175.2, cm, 05/27/21 11:26:00 EST, Height, 88.3, kg, 03/12/21 9:16:00 EDT, Dry Weight Start Date: 06/04/21 Status: Ordered Pen [place], 31 G x 5 mm BD Ultra [...] 5 Refills, Maintenance, 04/08/22 9:12:00 EDT, Capsule, [facility]/pharmacy #[id number], 175, cm, 04/08/22 8:34:00 EDT, Height, 93, kg, 01/28/22 14:55:00 EDT, Dry Weight Start Date: 04/08/22 Status: Ordered rosuvastatin 20 mg oral tablet 1 tablet, By Mouth, Daily, # 90 tablet, 1 Refills, Maintenance, 05/21/22 13:33:00 EST, [facility], 175, cm, 05/09/22 11:08:00 EDT, Height, 93, [...] failure, stage 4 (severe) Confirmed Active ASHD; [place] 2012/stent circumflex 2012/vessel [...] mild to moderate. 3MI 2012 circumflex stent 2012/[place] 4secondary to hep C 524 weeks therapy with sofosbuvir/weight based ribavirin 48761 inferolateral stent bare metal circumflex 7DR Marissa [...] Role: Lifetime Consulting Physician Address: Address: [address] [facility] [place] [address]- Name: Kelly Butler NP Position: [facility] PCO Associate Professional Member Role: PCP Address: Address: [address] [place] [address]- Name: Kristin Mckenzie Position: [facility] Outreach Member Role: Lifetime Consulting Physician Name: Prieto Tobin RN Position: [facility] RN Member Role: Primary Care Nurse Name: Jonn Hui DO Position: [facility] Renal MD Member Role: Lifetime Consulting Physician Address: Address: [address] [place], [place] [address] [place] [address]- Name: Luis Angel Stephen RN Position: [facility] RN Member Role: Primary Care Nurse Name: Tamie Baird RN Position: [facility] RN Member Role: Primary Care Nurse Care Team Related Persons Name: CARLOS A BORDEN Address: [address] [place] [address] Name: LEVI BORDEN Address: [address] [place] [address]
--- OUTSIDE RECORDS SUMMARY | 2024-06-01 11:59 | XMS_ITS | Continuity of Care Document ---
Author Organization [facility] Shawn Lazaro lt Address [address] [place] [address]- Care Team Providers Care Compliance Manager Name Role Phone Aylin HICKMAN, Ben Willis Primary Care Physician Encounter [facility] Date(s): 11/14/21 - 12/14/21 [facility] Adult [address] [place] [address]- Allergies, Adverse Reactions, Alerts Substance Reaction Severity [...] 11:08:00 EDT, 01/23/21 11:08:00 EDT, CR Capsule, [facility]/pharmacy #[id number], 175.3, cm, 01/21/21 12:58:00 [...] 06/24/21 12:51:00 EST, Route to Pharmacy Electronically, [facility]/pharmacy #[id number], 175.2, cm, 06/07/21 9:51:00 EST, Height, 88.3, kg, 03/12/21 9:16:00 EDT, Dry... Start Date: 06/24/21 Status: Ordered Daily Simone oral tablet 1 tablet, By Mouth, Daily, # 30 tablet, 5 Refills, Maintenance, 07/29/21 13:53:00 EST, Tablet, [facility]/pharmacy #[id number], 1 tablet By Mouth Daily,x30 days, 175.2, cm, 06/07/21 9:51:00 EST, Height, 88.3, kg,03/12/21 9:16:00 EDT, Dry Weight Start Date: 07/29/21 Stop Date: 01/25/22 Status: Ordered docusate sodium 100 mg oral capsule 1 capsule, By Mouth, 2 times a day, PRN NEEDED FOR CONSTIPATION, # 60 capsule, 5 Refills, Maintenance, 06/05/21 15:57:00 EST, [facility]/pharmacy #[id number], 175.2, cm, 05/27/21 11:26:00 EST, Height, 88.3, kg, 03/12/21 9:16:00 EDT, Dry Weight Start Date: 06/05/21 Status: Ordered folic acid 1 mg oral tablet 1, tablet, By Mouth, Daily, # 30 tablet, Refills 5, Tot. Refills 5, Maintenance, 07/25/21 15:59:00 EST, Route to Pharmacy Electronically, [facility]/pharmacy #[id number], 175.2, cm, 06/07/21 9:51:00 [...] tablet, 5 Refills, Maintenance, 06/05/21 15:57:00 EST, [facility]/pharmacy #[id number], 175.2, cm, 05/27/21 11:26:00 EST, Height, 88.3, kg, 03/12/21 9:16:00 EDT, Dry Weight Start Date: 06/05/21 Status: Ordered LaMICtal 100 mg oral tablet 100 mg, 1, tablet, By Mouth, 2 times a day, # 60 tablet, Refills 3, Tot. Refills 3, Maintenance, 01/21/19 11:25:36 EDT, Route to Pharmacy Electronically, [id number], [facility]/pharmacy #[id number] Start Date: 01/21/19 Stop [...] 3 Refills, Maintenance, 09/17/21 10:50:00 EDT, Tablet, [facility]/pharmacy #[id number], Partial fill upon patient request if the prescription is for a schedule II opioid drug., 175.2, cm, 07/31/21 11:20:00 EST, Heigh... Start Date: 09/17/21 Status: Ordered Metoprolol Tartrate 50 mg oral tablet 1.5 tablet, By Mouth, 2 times a day, # 270 tablet, 0 Refills, [facility] 55792, 175.2, cm, 11/15/21 11:18:00 EDT, Height, 88.3, kg, 03/12/21 9:16:00 EDT, Dry Weight Start Date: 12/12/21 Status: Ordered nicotine 2 mg oral transmucosal lozenge See Instructions, USE 1 LOZENGE UP TO EVERY 1 HOUR NEEDED FOR 10 DAYS, # 162 lozenge, 0 Refills,Maintenance, 12/11/21 9:38:00 EDT, [facility]/pharmacy #0843, 16, USE 1 LOZENGE [...] tablet, 0 Refills, Maintenance, 08/23/21 8:07:00 EST, [facility]/pharmacy #[id number], 175.2, cm, 07/31/21 11:20:00 EST, H... Start Date: 08/23/21 Status: Ordered NovoLOG FlexPen 100 units/mL injectable solution See Instructions, INJECT 0-18 UNITS SUBCUTANEOUSLY WITH MEALS FOR SLIDING SCALES, # 15 Unknown, 2 Refills, [facility] 84415, 175.2, cm, 05/27/21 11:26:00 EST, Height, 88.3, kg, 03/12/21 9:16:00 EDT, Dry Weight Start Date: 06/04/21 Status: Ordered Pen [place], 31 G x 5 mm BD Ultra [...] capsule, 5 Refills, Maintenance, 11/19/21 11:25:00EDT, Capsule, [facility]/pharmacy #[id number], 175.2, cm, 11/15/21 11:18:00 EDT, Height, 88.3, kg, 03/12/21 9:16:00 EDT, Dry Weight Start Date: 11/19/21 Status: Ordered pregabalin 75 mg oral capsule 1 capsule = 75 mg, By Mouth, Daily, # 30 capsule, 5 Refills, Maintenance, 06/10/21 12:32:00 EST, Capsule, [facility]/pharmacy #[id number], 175.2, cm, 06/07/21 9:51:00 EST, Height, 88.3, kg, 03/12/21 9:16:00 EDT, Dry Weight Start Date: 06/10/21 Status: Ordered rosuvastatin 20 mg oral tablet 1 tablet, By Mouth, Daily, # 90 tablet, 1 Refills, Maintenance, 08/15/21 14:24:00 EST, [facility]/pharmacy#0843, 175.2, cm, 07/31/21 11:20:00 EST, Height, 88.3, kg, 03/12/21 9:16:00 EDT, Dry Weight Start Date: 08/15/21 Status: Ordered SEROquel 100 mg oral tablet 100 mg, 1, tablet, By Mouth, 2 times a day, # 60 tablet, Refills 2, Tot. Refills 2, Maintenance, 09/21/19 10:41:00 EDT, Route to Pharmacy Electronically, [facility]/pharmacy #[id number], 172, cm, 09/05/19 16:17:00 [...] 0 Refills, Maintenance, 11/29/21 15:58:00 EDT, Suspension, [facility]/pharmacy #[id number], 1 drops Eyes, Both [...] # 9 Unknown, 1 Refills, [facility], 175.2, cm, 07/31/21 11:20:00 EST, Height, 88.3, [...] # 30 capsule, 5 Refills, [facility], 175.2, cm, 11/15/21 11:18:00 EDT, Height, 88.3, kg, 03/12/21 9:16:00 EDT, Dry Weight Start Date: 11/17/21 Status: Ordered Problem List Condition Effective Dates Status Health Status Inform ant Bipolar disorder(Confirmed) Active Cervical spondylosis(Confirmed) Active Chronic back pain DJD(Confirmed) Active Glomerulonephritis,mesangial proliferative/fibrillary(Confirmed) 1, 2 Active Chronic renal failure, stage 4 (severe)(Confirmed) Active ASHD; [place] 2012/stent circumfl ex vessel [...] mild to moderate. 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 2013/[place] 4secondary to hep C 524 weeks therapy with sofosbuvir/weight based ribavirin 74417 inferolateral stent bare metal circumflex 7DR Molddoverno [...]
--- OUTSIDE RECORDS SUMMARY | 2024-06-01 11:59 | XMS_ITS | Continuity of Care Document ---
Author Organization [facility] Shawn Lazaro lt Address [address] [place] [address]- Care Team Providers Care Program Production Specialist Name Role Phone Ben Viera MD Primary Care Physician [phone] [place] [facility] [place] 05/04/20 - 05/11/20 [facility] Adult [address] [place] [address]- Encounter Diagnosis Bipolar disorder(Discharge Diagnosis) - 05/04/20 Syncope(Discharge Diagnosis) - 05/04/20 Attending Physician: Ben Viera MD Referring Physician: Ben [...] 10:48:07 EST, Aerosol, Route to Pharmacy Electronically, [id number], [facility]/pharmacy #[id number], 180, cm, 06/17/19 10:36:11 EST, Height Start Date: 06/17/19 Status: Ordered aspirin 81 mg oral tablet 1 tablet = 81 mg, By Mouth, Daily, # 30 tablet, 11 Refills, Maintenance, 09/03/19 14:22:00 EST, Tablet, [facility]/pharmacy #[id number], 180, cm, 08/01/19 10:43:00 EST, [...] Refills, Maintenance, 01/02/20 15:47:00 EDT, CR Capsule, [facility]/pharmacy #[id number], 172, cm, 12/14/19 8:02:00 EDT, Height, 97.8, kg, 08/11/19 5:24:00 EST, Dry Weight Start Date: 01/02/20 Stop Date: 12/27/20 Status: Ordered cholecalciferol 2000 intl units oral capsule 1 capsule = 2,000 International_Units, By Mouth, Daily, # 30 capsule, 5 Refills, Maintenance, 11/02/19 10:15:00 EDT, Capsule, [facility]/pharmacy #[id number], 172, cm, 09/05/19 16:17:00 EST, Height, 97.8, kg, 08/11/19 5:24:00 EST, Dry Weight Start Date: 11/02/19 Status: Ordered cloNIDine 0.2 mg oral tablet 0.2 mg, 1, tablet, By Mouth, 2 times a day, # 60 tablet, Refills 2, Tot. Refills 2, Maintenance, 03/08/20 16:50:00 EDT, Route to Pharmacy Electronically, [facility]/pharmacy #[id number], 172, cm, 12/14/19 8:02:00EDT, Height, 97.8, kg, 08/11/19 5:24:00 EST, Dry We... Start Date: 03/08/20 Status: Ordered Colace sodium 100 mg oral capsule 100 mg, 1, capsule, By Mouth, 2 times a day, PRN, # 60 capsule, Refills 5, Tot. Refills 5, Maintenance, for constipation, 02/27/20 15:25:00 EDT, Route to Pharmacy Electronically, [facility]/pharmacy #[id number], 172, cm, 12/14/19 8:02:00 EDT, Height, 97.8, kg, 02/... Start Date: 02/27/20 Status: Ordered Crestor 20 mg oral tablet 1 tablet = 20 mg, By Mouth, Daily, # 90 tablet, 3 Refills, Maintenance, 01/02/20 15:46:00 EDT, Tablet, [facility]/pharmacy #[id number], 172, cm, 12/14/19 8:02:00 EDT, Height, 97.8, kg, 08/11/19 5:24:00 EST, Dry Weight Start Date: 01/02/20 Status: Ordered Daily Simone oral tablet 1 tablet, By Mouth, Daily, # 30 tablet, 5 Refills, Maintenance, 03/01/20 14:48:00 EDT, Tablet, [facility]/pharmacy #[id number], 1 tablet By Mouth Daily,x30 days, 172, cm, 12/14/19 8:02:00 EDT, Height, 97.8, kg, 08/11/19 5:24:00 EST, Dry Weight Start Date: 03/01/20 Stop Date: 08/28/20 Status: Ordered folic acid 1 mg oral tablet 1 mg, 1, tablet, By Mouth, Daily, # 30 tablet, Refills 5, Tot. Refills 5, Maintenance, 12/29/19 11:13:00 EDT, Route to Pharmacy Electronically, [facility]/pharmacy #[id number], 172, cm, 12/14/19 [...] INSULIN; ok to fill early if needed, Daniel 172, cm, 08/23/19 10:02:00 EST, Height... Start [...] 01/21/19 11:25:36 EDT, Route to Pharmacy Electronically, [id number], [facility]/pharmacy #[id number] Start Date: 01/21/19 [...] 01/02/20 15:45:00 EDT, Route to Pharmacy Electronically, [facility]/pharmacy #[id number], 172, cm, 12/14/19 8:02:00 EDT, Height, 9... Start Date: 01/02/20 Status: Ordered nicotine 2 mg oral transmucosal lozenge See Instructions, suck, up to q1 hrs 10 daily, # 144 lozenge, 1 Refills, Maintenance, 03/21/20 11:13:00 EDT, [facility]/pharmacy #[id number], suck, up to q1 hrs 10 daily, 172, cm, 03/21/20 11:04:00 EDT, Height, 97.8, kg, 08/11/19 5:24:00 EST, Dry Weight Start Date: 03/21/20 Status: Ordered nicotine 4 mg oral transmucosal lozenge 1 lozenge = 4 mg, By Mouth, Every hour, # 132 lozenge, 1 Refills, Maintenance, 11/29/19 8:13:00 EDT, [facility]/pharmacy #[id number], 1 lozenge By Mouth Every [...] PAIN CALL 911 IF PAIN NOT RELIEVED, [facility]/pharmacy #[id number] Start Date: 02/17/19 Status: Ordered NovoLOG FlexPen 100 units/mL subcutaneous solution See Instructions, INJECT 0-18 UNITS SUBCUTANEOUSLY WITH MEALS FOR SLIDING SCALES, # 15 Unknown, 5 Refills, Soft Stop, 02/01/20 9:13:00 EDT, [facility]/pharmacy #[id number], 172, cm, 12/14/19 8:02:00 EDT, Height, 97.8, kg, 08/11/19 5:24:00 EST, Dry Weight Start Date: 02/01/20 Status: Ordered Ozempic (0.25 mg or 0.5 mg dose) 2 mg/1.5 mL subcutaneous solution See Instructions, INJECT 0.25 MG SUBCUTANEOUSLY WEEKLY, # 1.5 Unknown, 0 Refills, Maintenance, [id number], 172, cm, 12/14/19 8:02:00 EDT, Height, 97.8, kg, 08/11/19 5:24:00 EST, Dry Weight Start Date: 02/09/20 Status: Ordered Pen [place], 31 G x 5 mm BD Ultra [...] EST, Tablet, this was previously sent to [facility] pharmacy Start Date: 05/17/19 Stop Date: 05/11/20 Status: Ordered Tresiba FlexTouch 200 units/mL subcutaneous solution = 90 units, Subcutaneous Infusion, Daily, at bedtime, # 15 mL, 5 Refills, Maintenance, 08/04/19 13:13:00 EST, [facility]/pharmacy #[id number], 180, cm, 08/01/19 10:43:00 EST, Height Start Date: 08/04/19 Status: Ordered Problem List Condition Effective Dates Status Health Status Inform ant Acute pancreatitis(Confirmed) 07/16/16 Active Adenomatous colon polyp(Confirmed) Active Bipolar disorder(Confirmed) Active Cervical spondylosis(Confirmed) Active Chronic back pain DJD(Confirmed) Active Glomerulonephritis,mesangial proliferative/fibrillary(Confirmed) 1, 2 Active ASHD; [place] 2012/stent circumfl ex vessel [...] 524 weeks therapy with sofosbuvir/weight based ribavirin 86670 inferolateral stent bare metal circumflex 7DR Marissa sx;Dr Schwartz 8repeat colonoscopy in 5 years Diagnosis Diagnosis Type Effective Dates Health Status Cl inical Service Informant Syncope Discharge Diagnosis 05/04/20 Bipolar disorder Discharge Diagnosis 05/04/20 Procedures Procedure Date Related Diagnosis Body Site Status CT of brain nad 04/24/20 Completed EKG sinus normal qtc 04/24/20 Comp leted Radioisotope myocardial perf usion stress study ef52% fixed defect 1 04/24/20 Completed EEG nad 04/20/[address] of brain nad 04/16/20 Completed 11. Myocardial perfusion imaging is abnormal after exercise stress test at poor functional capacity. There is a moderate sized fixed defect involving the entire inferolateral wall with associated hypokinesis, consistent with infarct. There are no reversible defects at the heart rate achieved. 2. LV function is normal with an E.F. of 52% at rest and 51% with stress. 3. EKG portion of the stress test is reported separ Vital Signs Most recent to oldest [Reference Range]: 1 2 Height 175 cm (05/04/20 2:41 PM) 175 cm (05/04/20 2:02 PM) Weight 84.3 kg (05/04/20 2:02 PM) Oxygen Saturation [94-100 %] 98 % (05/04/20 2:02 PM) Pulse Rate [55-90 bpm] 68 bpm (05/04/20 2:02 PM) Body Mass Index [18.5-24.99] 27.53 *H* (05/04/20 2:02 PM) Blood Pressure [90-138/55-84 mm Hg] 132/ 66mm Hg (05/04/20 2:02 PM) Respiratory Rate [16-30 br/min] 18 br/mi n (05/04/20 2:02 PM) Temperature [96.8-100.4 DegF] 98.1 DegF (05/04/20 2:02 PM) Blood pressure sites Arm, left (05/04/20 2:02 PM) Temperature Route Oral (05/04/20 2:02 PM) Social History Social History Type Response Smoking Status Former smoker, quit more than 30 days ago; Interested in cessation: Yes; Tobacco use times per day: 0.5-1 PPD; Total pack years: 38; Started at age: 12; Stopped at age: 63; entered on: 12/14/19 Sex
--- OUTSIDE RECORDS SUMMARY | 2024-06-01 11:59 | XMS_ITS | Continuity of Care Document ---
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 Refills 5, Maintenance, 06/24/21 12:51:00 EST, Route to Pharmacy Electronically, [facility]/pharmacy #[id number], 175.2, cm, 06/07/21 9:51:00 EST, Height, 88.3, kg, 03/12/21 9:16:00 EDT, Dry... Start Date: 06/24/21 Status: Ordered Daily Simone oral tablet 1 tablet, By Mouth, Daily, # 30 tablet, 5 Refills, Maintenance, 07/29/21 13:53:00 EST, Tablet, [facility]/pharmacy #[id number], 1 tablet By Mouth Daily,x30 days, 175.2, cm, 06/07/21 9:51:00 EST, Height, 88.3, kg,03/12/21 9:16:00 EDT, Dry Weight Start Date: 07/29/21 Stop Date: 01/25/22 Status: Ordered docusate sodium 100 mg oral capsule 1 capsule, By Mouth, 2 times a day, PRN NEEDED FOR CONSTIPATION, # 60 capsule, 5 Refills, Maintenance, 06/05/21 15:57:00 EST, [facility]/pharmacy #[id number], 175.2, cm, 05/27/21 11:26:00 EST, Height, 88.3, kg, 03/12/21 9:16:00 EDT, Dry Weight Start Date: 06/05/21 Status: Ordered folic acid 1 mg oral tablet 1, tablet, By Mouth, Daily, # 30 tablet, Refills 5, Tot. Refills 5, Maintenance, 07/25/21 15:59:00 EST, [id number] 175.2, cm, 06/07/21 9:51:00 EST, Height, [...] tablet, 5 Refills, Maintenance, 06/05/21 15:57:00 EST, [facility]/pharmacy #[id number], 175.2, cm, 05/27/21 11:26:00 EST, Height, 88.3, kg, 03/12/21 9:16:00 EDT, Dry Weight Start Date: 06/05/21 Status: Ordered LaMICtal 100 mg oral tablet 100 mg, 1, tablet, By Mouth, 2 times a day, # 60 tablet, Refills 3, Tot. Refills 3, Maintenance, 01/21/19 11:25:36 EDT, Route to Pharmacy Electronically, [id number], [facility]/pharmacy #[id number] Start Date: 01/21/19 Stop [...] 3 Refills, Maintenance, 09/17/21 10:50:00 EDT, Tablet, [facility]/pharmacy #[id number], Partial fill upon patient request if the prescription is for a schedule II opioid drug., 175.2, cm, 07/31/21 11:20:00 EST, Heigh... Start Date: 09/17/21 Status: Ordered Metoprolol Tartrate 50 mg oral tablet See Instructions, TAKE 1 + 1/2 TABLETS BY MOUTH 2 TIMES A DAY, # 270 tablet, 0 Refills, 06/24/21 10:42:00 EST, [facility]/pharmacy #[id number], 175.2, cm, 06/07/21 9:51:00 EST, Height, 88.3, kg, 03/12/21 9:16:00 EDT, Dry Weight Start Date: 06/24/21 Status: Ordered nicotine 2 mg oral transmucosal lozenge See Instructions, USE 1 LOZENGE UP TO EVERY 1 HOUR NEEDED FOR 10 DAYS, # 162 lozenge, 0 Refills,Maintenance, 11/22/21 14:08:00 EDT, [facility]/pharmacy #[id number], 16, USE 1 LOZENGE UP [...] tablet, 0 Refills, Maintenance, 08/23/21 8:07:00 EST, [facility]/pharmacy #[id number], 175.2, cm, 07/31/21 11:20:00 EST, H... Start Date: 08/23/21 Status: Ordered NovoLOG FlexPen 100 units/mL injectable solution See Instructions, INJECT 0-18 UNITS SUBCUTANEOUSLY WITH MEALS FOR SLIDING SCALES, # 15 Unknown, 2 Refills, [id number], 175.2, cm, 05/27/21 11:26:00 EST, Height, 88.3, kg, 03/12/21 9:16:00 EDT, Dry Weight Start Date: 06/04/21 Status: Ordered Pen [place], 31 G x 5 mm BD Ultra [...] capsule, 5 Refills, Maintenance, 11/19/21 11:25:00EDT, Capsule, [facility]/pharmacy #[id number], 175.2, cm, 11/15/21 11:18:00 EDT, Height, 88.3, kg, 03/12/21 9:16:00 EDT, Dry Weight Start Date: 11/19/21 Status: Ordered pregabalin 75 mg oral capsule 1 capsule = 75 mg, By Mouth, Daily, # 30 capsule, 5 Refills, Maintenance, 06/10/21 12:32:00 EST, Capsule, [facility]/pharmacy #[id number], 175.2, cm, 06/07/21 9:51:00 EST, Height, 88.3, kg, 03/12/21 9:16:00 EDT, Dry Weight Start Date: 06/10/21 Status: Ordered rosuvastatin 20 mg oral tablet 1 tablet, By Mouth, Daily, # 90 tablet, 1 Refills, Maintenance, 08/15/21 14:24:00 EST, [facility]/pharmacy#0843, 175.2, cm, 07/31/21 11:20:00 EST, Height, 88.3, kg, 03/12/21 9:16:00 EDT, Dry Weight Start Date: 08/15/21 Status: Ordered SEROquel 100 mg oral tablet 100 mg, 1, tablet, By Mouth, 2 times a day, # 60 tablet, Refills 2, Tot. Refills 2, Maintenance, 09/21/19 10:41:00 EDT, Route to Pharmacy Electronically, [facility]/pharmacy #[id number], 172, cm, 09/05/19 16:17:00 [...] 0 Refills, Maintenance, 11/12/21 16:48:00 EDT, Suspension, [facility]/pharmacy #[id number], 1 drops Eyes, Both [...] # 9 Unknown, 1 Refills, [id number], 175.2, cm, 07/31/21 11:20:00 EST, Height, 88.3, [...] # 30 capsule, 5 Refills, [facility], 175.2, cm, 11/15/21 11:18:00 EDT, Height, 88.3, [...] mild to moderate. 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 2012/MD 4secondary to hep C 524 weeks therapy with sofosbuvir/weight based ribavirin 27841 inferolateral stent bare metal circumflex 7DR Marissa sx;Dr Schwartz 8hyperplatic polyp repeat screening in 2025 9repeat colonoscopy in 5 years Diagnosis Diagnosis Type Effective Dates Health Status Clinical Service Informant Dental injury Discharge Diagnosis 11/15/21 ASHD; [place] 2012/stent circumflex vessel cath;abdelrahman 2018 Discharge Diagnosis 11/15/21 Chronic renal failure, stage 4 (severe) Discharge Diagnosis 11/15/21 Type 2 diabetes mellitus with diabetic nephropathy Discharge Diagnosis 11/15/21 Insulin long-term use Discharge Diagnosis 11/15/21 Vital Signs Most recent to oldest [Reference Range]: 1 Height 175.2 cm (11/15/21 11:18 AM) Social History Social History Type Response Smoking Status Former smoker, quit more than 30 days ago; Interested in cessation: No; Other: quit; Tobacco use times per day: prio 1/2-1 ppd; Total pack years: 38; Started at age: 12; Stopped at age: 63; entered on: 07/20/20 Sex
--- OUTSIDE RECORDS SUMMARY | 2024-06-01 11:59 | XMS_ITS | Continuity of Care Document ---
Author Organization [facility] Lazaro lt Address [address] [place] [address]- Care Team Providers Care Plumbing And Heating Mechanic Name Role Phone Carrie Kelly RIVERA Primary Care Physician [phone] [place] [facility] 02/02[place]24 - 03/03/24 [facility] Adult [address] [place] [address]- Allergies, Adverse Reactions, Alerts Substance Reaction Severity Status Bee Stings Active Immunizations Given and Recorded Vaccine Date Status Refusal Reason SARS-CoV-2(COVID-19)mRNA-LNP vac([id number]) 12/31/23 Recorded SARS-CoV-2(COVID-19)mRNA-LNP vac([id number]) 05/08/23 Recorded tetanus/diphtheria/pertussis, acel(Tdap) 10/15/23 Recorded tetanus/diphtheria/pertussis, [...] 02/03/23 Recorded zoster vaccine, inactivated 08/09/19 Recorded [id number] 12y+ bivalent booster vax 05/17/22 Recorded SARS-CoV-2 [...] adult vaccine 4 12/10/10 Given 1Result Comment: [id number] 2Result Comment: [id number] 3Admin Note: pt waited 10 mins post [...] 02/02/24 15:26:00 EDT, Route to Pharmacy Electronically, [facility]/pharmacy #... Start Date: 02/02/24 Status: Ordered Aerochamber See Instructions, # 1 each, Maintenance, always use with inhaler, 02/02/24 15:25:00 EDT, Supply, 168, cm, 02/02/24 14:20:00 EDT, Height Start Date: 02/02/24 Status: Ordered Albuterol (Eqv-Ventolin HFA) 90 mcg/inh inhalation aerosol 2 puffs, Inhalation, Every 4 hours, PRN cough, SOB, wheeze, # 18 Gm, 0 Refills, Maintenance, 02/02/24 15:25:00 EDT, [id number], with dose counter. any albuterol inhaler covered [...] day prn cough (Max 600 mg in i22-vfjm period), # 30 capsule, 0 Refills, Maintenance, [...] 11:18:00 EDT, Route to Pharmacy Electronically, [facility]/pharmacy #[id number], Partial fill upon patient request if the prescriptio... Start Date: 02/29/24 Stop Date: 03/14/24 Status: Ordered D3 50 mcg (2000 intl units) oral capsule 1 capsule, By Mouth, Daily, # 90 capsule, 0 Refills, Maintenance, 12/09/23 14:09:00 EDT, [facility]/pharmacy #[id number], 168, cm, 10/27/23 15:34:00 EDT, Height, 93, kg, 01/28/22 14:55:00 EDT, Dry Weight Start Date: 12/09/23 Status: Ordered Daily Simone oral tablet 1 tablet, By Mouth, Daily, # 90 tablet, 1 Refills, Maintenance, 01/25/24 16:01:00 EDT, [facility]/pharmacy#0843, 90, 1 tablet By Mouth Daily, 168, cm, 01/11/24 14:42:00 EDT, Height, 93, kg, 01/28/22 14:55:00 EDT, Dry Weight Start Date: 01/25/24 Status: Ordered dapagliflozin 10 mg oral tablet 1 tablet = 10 mg, By Mouth, Daily, # 30 tablet, 0 Refills, Maintenance, 01/11/24 14:46:00 EDT, Tablet, [facility]/pharmacy #[id number], Partial fill upon patient request if the prescription is for a schedule II opioid drug., 168, cm, 01/11/24 14:42:00 EDT, Height,... Start Date: 01/11/24 Status: Ordered Flonase Allergy Relief 50 mcg/inh nasal spray See Instructions, 1 sprays Daily in each nostril, # 16 Gm, 0 Refills, Maintenance, 02/15/24 13:39:00 EDT, [facility]/pharmacy #[id number], Partial fill upon patient request if the prescription is for a schedule II opioid drug., 168, cm, 02/03/24 10:41:00 EDT, Height Start Date: 02/15/24 Status: Ordered folic acid 1 mg oral tablet 1, tablet, By Mouth, Daily, # 90 tablet, Refills 1, Tot. Refills 1, Maintenance, 02/17/24 7:23:00 EDT, Route to Pharmacy Electronically, [facility]/pharmacy #[id number], 168, cm, 02/15/24 13:43:00 EDT, [...] 01/21/19 11:25:36 EDT, Route to Pharmacy Electronically, [id number], [facility]/pharmacy #[id number] Start Date: 01/21/19 Stop Date: [...] 0 Refills, Maintenance, 10/03/22 15:53:00 EDT, [facility]/pharmacy #[id number], 175, cm, 09/17/22 13:59:00 EDT, [...] mL, 0 Refills, Maintenance, 02/02/24 15:28:00 EDT, [place], [facility]/pharmacy #[id number], Partial fill upon patient... Start Date: 02/02/24 Status: Ordered Pen [place], 31 G x 5 mm BD Ultra [...] Refills, Maintenance, 02/04/24 16:39:00 EDT, [id number], 168, cm, 02/03/24 10:41:00 EDT, Height Start Date: 02/04/24 Status: Ordered senna - oral tablet 2 tablet, By Mouth, Daily at bedtime, PRN for constipation, for 14 days, # 28 tablet, 0 Refills, Acute 03/14/24 11:19:00 EDT, 02/29/24 11:19:00 EDT, Tablet, [facility]/pharmacy #[id number], Partial fill upon patient request [...] ml/min Confirmed Active ASHD; [place] 2012/stent circumflex 2012/vessel cath;abdelrahman 2018 3 Confirmed [...] 524 weeks therapy with sofosbuvir/weight based ribavirin 27089 inferolateral stent bare metal circumflex 7DR Moldcathy [...] Team Personnel Name: Jeffrey Mccoy MD Position: [facility] Renal MD Member Role: Lifetime Consulting Physician Address: Address: [address] [place], [place] [address] [place], [place] [address] Name: Kelly Butler NP Position: [facility] PCO Associate Professional Member Role: PCP Address: Address: [address] [place] [id number] Name: Kristin Mckenzie Position: [facility] Outreach Member Role: Lifetime Consulting Physician Name: Fortunato Sin RN Position: [facility] RN Member Role: Primary Care Nurse Name: Nury Watts RN Position: [facility] RN Member Role: Primary Care Nurse Name: Antonia Mena NP Position: [facility] Associate Professional Member Role: Lifetime Consulting Provider Address: Address: [address] [place], [place] [address] [place], [place] [address] Name: Prieto Tobin RN Position: [facility] RN Member Role: Primary Care Nurse Name: Ashleigh Reynoso RN Position: [facility] RN Member Role: Primary Care Nurse Name: Jonn Hui DO Position: [facility] Renal MD Member Role: Lifetime Consulting Physician Address: Address: [address] [place], [place] [address] [place], [place] [address] Name: Luis Angel Stephen RN Position: S RN Member Role: Primary Care Nurse Name: Brandan Nogueira RN Position: S RN Member Role: Primary Care Nurse Care Team Related Persons Name: CARLOS A BORDEN Address: home [address] [place] [address] Name: LEVI BORDEN Address: home [address] [place] [address]
--- OUTSIDE RECORDS SUMMARY | 2024-06-01 12:00 | XMS_ITS | Continuity of Care Document ---
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) - 01/11/24 Secondary hyperparathyroidism, renal(Discharge Diagnosis) - 01/11/24 [place]SHD[place];abdelrahman 2019(Discharge Diagnosis) - 01/11/24 CKD (chronic kidney disease) stage 4, GFR 15-29 ml/min(Discharge Diagnosis) - 01/11/24 Hypertension(Discharge Diagnosis) - 01/11/24 Hyperlipidemia(Discharge Diagnosis) - 01/11/24 History of alcoholism(Discharge Diagnosis) - 01/11/24 Bipolar disorder(Discharge Diagnosis) - 01/11/24 Low serum vitamin D(Discharge Diagnosis) - 01/11/24 Multiple lung nodules LDCT (Discharge Diagnosis) - 01/11/24 Tubular adenoma of colon colonoscopy (Discharge Diagnosis) - 01/11/24 Attending Physician: Kelly Butler NP Allergies, Adverse Reactions, Alerts Substance Reaction Severity Status Bee Stings Active Immunizations Given and Recorded Vaccine Date Status Refusal Reason SARS-CoV-2(COVID-19)mRNA-LNP vac([id number]) 12/31/23 Recorded SARS-CoV-2(COVID-19)mRNA-LNP vac([id number]) 05/08/23 Recorded tetanus/diphtheria/pertussis, acel(Tdap) 4/11/24 Recorded tetanus/diphtheria/pertussis, acel(Tdap) 07/28/11 Given pneumococcal 20-valent [...] 02/03/23 Recorded zoster vaccine, inactivated 08/09/19 Recorded [id number] 12y+ bivalent booster vax 05/17/22 Recorded SARS-CoV-2 [...] adult vaccine 4 12/10/10 Given 1Result Comment: [id number] 2Result Comment: [id number] 3Admin Note: pt waited 10 mins post inj no adverse reaction noted.j a 4Admin Note: PT WAITED 10 MIN WITH NO ADVERSE REACTION. Medications aspirin 81 mg oral delayed release tablet 1 tablet, By Mouth, Daily, # 90 tablet, 1 Refills, Maintenance, 06/02/23 11:42:00 EST, [facility]/pharmacy#[id number], 168, cm, 05/01/23 14:45:00 EDT, Height, 93, kg, 01/28/22 14:55:00 EDT, Dry Weight Start Date: 06/02/23 Status: Ordered Ativan 1 mg oral tablet 1 tablet = 1 mg, By Mouth, 4 times a day, 0 Refills, Maintenance, 12/27/15 13:11:38 EDT Start Date: 12/27/15 Status: Ordered D3 50 mcg (2000 intl [...] Refills, Maintenance, 06/30/23 7:20:00 EST, [facility], 90, TAKE 1 TABLET BY MOUTH EVERY [...] Refills, Maintenance, 11/10/23 22:03:00 EDT, [facility], 168, cm, 10/27/23 15:34:00 EDT, Height, 93, kg, 01/28/22 14:55:00 EDT, Dry Weight Start Date: 11/10/23 Status: Ordered folic acid 1 mg oral tablet 1, tablet, By Mouth, Daily, # 90 tablet, Refills 1, Tot. Refills 1, Maintenance, 07/03/23 10:01:00 EST, Route to Pharmacy Electronically, [facility]/pharmacy #[id number], 168, cm, 05/01/23 14:45:00 [...] 01/21/19 11:25:36 EDT, Route to Pharmacy Electronically, [id number], [facility]/pharmacy #[id number] Start Date: 01/21/19 Stop Date: 05/21/19 Status: Ordered lisinopril 40 mg oral tablet 1 tablet, By Mouth, Daily, # 90 tablet, 1 Refills, Maintenance, 08/17/23 13:33:00 EST, [facility]/pharmacy#0843, 168, cm, 07/23/23 15:05:00 EST, Height, 93, kg, 01/28/22 14:55:00 EDT, Dry Weight Start Date: 08/17/23 Status: Ordered methylphenidate 5 mg oral tablet TAKE 1 TABLET BY MOUTH THREE TIMES A DAY Start Date: 01/11/24 Status: Ordered Metoprolol Tartrate 50 mg oral tablet 1.5 tablet, By Mouth, 2 times a day, # 270 tablet, 1 Refills, Maintenance, 09/16/23 14:32:00 EDT, [facility]/pharmacy #[id number], 168, cm, 07/23/23 15:05:00 [...] 15 Unknown, 2 Refills, 01/12/24 14:36:00 EDT, [facility]/pharmacy #[id number], MAX DAILY DOSE 54 UNITS, 168, cm, 01/11/24 14:42:00 EDT, Height, 93, kg, 01/28/22 14:55:00 EDT, Dry W... Start Date: 01/12/24 Status: Ordered Pen [place], 31 G x 5 mm BD Ultra [...] tablet, 0 Refills, Maintenance, 11/10/23 22:03:00 EDT, [facility], 168, cm, 10/27/23 15:34:00 EDT, Height, 93, [...] mild to moderate. 3MI 2012 circumflex stent 2012/[place] 4secondary to hep C 524 weeks therapy with sofosbuvir/weight based ribavirin 25453 inferolateral stent bare metal circumflex 7DR Marissa rojasx;Dr Schwartz 8hyperplatic polyp repeat screening in 2025 9repeat colonoscopy in 5 years Diagnosis Diagnosis Type Effective Dates Health Status Clinical Service Informant ASHD; [place] vessel [place];abdelrahman 2019 Discharge Diagnosis 01/11/24 CKD (chronic kidney disease) stage 4, GFR 15-29 ml/min Discharge Diagnosis 01/11/24 Hypertension Discharge Diagnosis 01/11/24 Hyperlipidemia Discharge Diagnosis 01/11/24 History of alcoholism Discharge Diagnosis 01/11/24 Type 2 diabetes mellitus with diabetic nephropathy Discharge Diagnosis 01/11/24 Secondary hyperparathyroidism, renal Discharge Diagnosis 01/11/24 Bipolar disorder Discharge Diagnosis 01/11/24 Low serum vitamin D Discharge Diagnosis 01/11/24 Multiple lung nodules LDCT Discharge Diagnosis 01/11/24 Tubular adenoma of colon colonoscopy Discharge Diagnosis 01/11/24 Vital Signs Most recent to oldest [Reference Range]: 1 2 3 Height 168.0 cm (01/11/24 2:42 PM) 168.0 cm (01/11/24 2:20 PM) 168.0 cm (01/11/24 2:11 PM) Weight 87.6 kg (01/11/24 2:11 PM) Oxygen Saturation [94-100 %] 97 % (01/11/24 2:11 PM) Pulse Rate [55-90 bpm] 66 bpm (01/11/24 2:11 PM) Body Mass Index [18.5-24.99 kg/m2] 31.04 kg/m2 *>HHI* (01/11/24 2:11 PM) Blood Pressure [90-138/55-84 mm Hg] 154/60mm Hg *H* (01/11/24 2:42 PM) 150/75mm Hg *H* (01/11/24 2:20 PM) 159/74mm Hg *H* (01/11/24 2:11 PM) Mode of Delivery (Oxygen) Room air (01/11/24 2:11 PM) Blood pressure sites Arm, left (01/11/24 2:42 PM) Arm, left (01/11/24 2:20 PM) Arm, left (01/11/24 2:11 PM) Weight Obtained Via Standing scale (01/11/24 2:11 PM) Social History Social History Type Response Smoking Status Former smoker, quit more than 30 days ago; Interested in cessation: No; Other: quit; Tobacco use times per day: prio 1/2-1 ppd; Total pack years: 38; Started at age: 12; Stopped at age: 63; entered on: 07/20/20 Sex Note * Sophia Farias: PERFORM Event Display: Patient Education/Instruction Authored Date: [id number] Ambulatory Adult Visit Summary [facility] Ellie Escobar Adlt [address] [place] [address] Name: BRITTANY BORDEN : 1955?? Visit: 01/11/2024 13:55?? Ambulatory Visit Instructions ?? Your Care Team Primary Care Provider Kelly Butler NP? This Visit Provider Kelly Butler NP. 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 Follow Up with??clinical visit Why: for BP check in 2 weeks Future Orders PTH Intact - Once, *Est. [...] provider. What How Much When Instructions New Insulin Aspart (NovoLOG FlexPen 100 units/ mL injectable solution) See instructions Refills: 2 INJECT 0-18 UNITS SUBCUTANEOUSLY WITH MEALS FOR SLIDING SCALES ?? Pickup at [facility]/pharmacy #[id number] Changed Durable Medical Equipment (Freestyle Lite Lancets) See instructions Check blood sugars three times a day DM Type 2 E11.9 ?? Pickup at [facility]/pharmacy #0843 Changed Durable Medical Equipment (Freestyle Lite Test Strips) See instructions Check blood sugars three times a day DM Type 2 E11.9 ?? Pickup at [facility]/pharmacy #0843 Changed Durable Medical Equipment (Pen [place], 31 G x 5 mm BD Ultra Fine III) See instructions Use TID DM Type 2 on insulin E11.9 ?? Changed Lamotrigine (LaMICtal 100 mg oral tablet) 1 tab(s) Oral Twice a day Duration: 30 Days Unchanged Aspirin (aspirin 81 mg oral delayed release tablet) 1 tab(s) Oral Daily Unchanged Cholecalciferol (D3 50 mcg (2000 intl units) oral capsule) 1 capsule Oral Daily Unchanged dapagliflozin (dapagliflozin 10 mg oral tablet) 1 tab(s) Oral Daily Pickup at [facility]/pharmacy #0843 Unchanged Diltiazem (DilTIAZem (Eqv-Cardizem CD) 180 mg/ 24 hours oral capsule, extended release) 1 capsule Oral Daily Unchanged Folic Acid (folic acid 1 mg oral tablet) 1 tab(s) Oral Daily Unchanged Lisinopril (lisinopril 40 mg oral tablet) 1 tab(s) Oral Daily Unchanged Lorazepam (Ativan 1 mg oral tablet) 1 tab(s) Oral 4 times a day Unchanged Methylphenidate (methylphenidate 5 mg oral tablet) TAKE 1 TABLET BY MOUTH THREE TIMES A DAY ?? Unchanged Metoprolol (Metoprolol Tartrate 50 mg oral tablet) 1.5 tab(s) Oral Twice a day Unchanged Multivitamin (Daily Simone oral tablet) 1 tab(s) Oral Daily Unchanged Nitroglycerin (nitroglycerin 0.4 mg sublingual tablet) See instructions DISSOLVE 1 UNDER TONGUE EVERY 5 MINUTES NEEDED FOR CHEST PAIN CALL MD AFTER TAKING 3 TABS IN TOTAL IN A DAY ?? Unchanged Quetiapine (SEROquel 300 mg oral tablet) 1 tab(s) Oral Daily at Bedtime Unchanged Rosuvastatin (rosuvastatin 20 mg oral tablet) 1 tab(s) Oral Daily Pharmacy Information [facility]/pharmacy #[id number]: [address], [place] [id number] [phone] Test Performed Below is a partial list of the tests performed during your Visit. You may have had other tests and procedures not included in this list. Please discuss all test results with your provider. POC HBA1C ([facility]) Lab Test Results Below is a partial list of the most recent Laboratory test results done during your Visit. You may have had other tests and procedures not included in this list. Please discuss all test results with your provider. Test Name Test Result Date/Time POC HBA1C ([facility]) 6.5 % 01/11/2024 14:26 EDT Medications and Immunizations Administered Medications Given During [...] are strongly encouraged to quit. Please call [employer] Link at [phone] or [phone] ([phone]) or log in to [email or web address] for referrals to smoking cessation programs. ?? The National Suicide Prevention Hotline is available 26/01 if you or someone you know needs to find a reason to keep living. By calling 1-387-805-vtxj (4777) you'll be connected to a skilled, trained counselor at a crisis center in your area. [facility] Health Portal You can view and manage your care through the patient portal or by using a health care [place] of your choosing. [employer] is a website that allows you to securely view your medical information including your hospital discharge summary, office visit summaries, medications and follow-up visits. You can also request appointments, renew medications, and request access to your medical information using a health care [place] of your choosing, or just ask a question. You can enroll at [email or web address] or register during your next office visit. [facility], in keeping with [facility] guidance, no longer requires face masks [...] primary care provider, you may find a [facility] provider by calling [facility] [employer] Link at [phone]. Patient Care team information Care Team Personnel Name: Jeffrey Mccoy MD Position: [facility] Renal MD Member Role: Lifetime Consulting Physician Address: Address: [address] [place] [address] [address] [facility] [place] [address]- Name: Kelly Butler NP Position: [facility] PCO Associate Professional Member Role: PCP Address: Address: [address] [place] [id number]- Name: Kristin Mckenzie Position: [facility] Outreach Member Role: Lifetime Consulting Physician Name: Prieto Tobin RN Position: [facility] RN Member Role: Primary Care Nurse Name: Jonn Hui DO Position: [facility] Renal MD Member Role: Lifetime Consulting Physician Address: Address: [address] [place], [place] [address] [place], [place] [address] Name: Zafar CALVO, Luis Angel Rojas Position: [facility] RN Member Role: Primary Care Nurse Care Team Related Persons Name: CARLOS A BORDEN Address: home [address] [place] [address] Name: LEVI BORDEN Address: home [address] [place] [address]
--- OUTSIDE RECORDS SUMMARY | 2024-06-01 12:00 | XMS_ITS | Continuity of Care Document ---
Author Organization [facility] Lazaro lt Address [address] [place] [address]- Care Team Providers Care Center Customer Service Associate Name Role Phone Carrie Kelly RIVERA Primary Care Physician Encounter [facility] Date(s): 02/14/22 - 03/16/22 [facility] Adult [address] [place] [address]- Attending Physician: Admtr, Ar8 Admitting Physician: Admtr, [...] 01/21/19 11:25:36 EDT, Route to Pharmacy Electronically, [id number], [facility]/pharmacy #[id number] Start Date: 01/21/19 [...] 270 tablet, 0 Refills, 03/16/22 12:48:00 EDT, [facility]/pharmacy #[id number], 175, cm, 02/14/22 10:10:00 EDT, Height, 93, kg, 01/28/22 14:55:00 EDT, Dry Weight Start Date: 03/16/22 Status: Ordered nicotine 14 mg/24 hr transdermal film, extended release 1 patch, Topically, Daily, for 30 days, # 30 patch, 1 Refills, Acute 05/13/22 12:16:00 EST, 03/14/22 12:16:00 EDT, Patch, [facility]/pharmacy #[id number], 1 patch Topically Daily,x30 [...] tablet, 0 Refills, Maintenance, 12/31/21 17:21:00 EDT, [facility]/pharmacy #[id number], 175.2, cm, 12/18/21 14:10:00 EDT, Height... Start Date: 12/31/21 Status: Ordered NovoLOG FlexPen 100 units/mL injectable solution See Instructions, INJECT 0-18 UNITS SUBCUTANEOUSLY WITH MEALS FOR SLIDING SCALES, # 15 Unknown, 2 Refills, [facility], 175.2, cm, 05/27/21 11:26:00 EST, Height, 88.3, kg, 03/12/21 9:16:00 EDT, Dry Weight Start Date: 06/04/21 Status: Ordered Pen [place], 31 G x 5 mm BD Ultra [...] Mouth, Daily, # 90 tablet, 1 Refills, [facility], 175, cm, 01/29/22 15:12:00 EDT,Height, 93, kg, [...] 3 Refills, Maintenance, 12/18/21 14:33:00 EDT, Suspension, [facility]/pharmacy #0843, 1 [...] # 30 capsule, 5 Refills, [facility], 175.2, cm, 11/15/21 11:18:00 EDT, Height, 88.3, kg, 03/12/21 9:16:00 EDT, Dry Weight Start Date: 11/17/21 Status: Ordered Problem List Condition Effective Dates Status Health Status Inform ant Bipolar disorder(Confirmed) Active Cervical spondylosis(Confirmed) Active Chronic back pain DJD(Confirmed) Active Glomerulonephritis,mesangial proliferative/fibrillary(Confirmed) 1, 2 Active Chronic renal failure, stage 4 (severe)(Confirmed) Active ASHD; [place] 2012/stent circumfl ex vessel [...] 524 weeks therapy with sofosbuvir/weight based ribavirin 72151 inferolateral stent bare metal circumflex 7DR Molddoverno [...] Team Personnel Name: Kelly Butler NP Address: [address] [place] [address]
--- OUTSIDE RECORDS SUMMARY | 2024-06-01 12:00 | XMS_ITS | Continuity of Care Document ---
Author Organization [facility] Address [address] [place] [address]- Care Team Providers Care Housekeeping Room Attendant Name Role Phone Aylin HICKMAN, Ben Willis Primary Care Physician Encounter [facility] Date(s): 08/22/19 - 09/01/19 [facility] [address] [place] [address]- [facility] Attending Physician: Radha Biggs Admitting Physician: AdmtrRadha Referring Physician: Admtr ArVannesa Allergies, Adverse Reactions, Alerts Substance Reaction Severity [...] 10:48:07 EST, Aerosol, Route to Pharmacy Electronically, [id number], [facility]/pharmacy #[id number], 180, cm, 06/17/19 10:36:11 EST, Height Start Date: 06/17/19 Status: Ordered aspirin 81 mg oral tablet 1 tablet = 81 mg, By Mouth, Daily, # 30 tablet, 11 Refills, Maintenance, 09/03/19 14:22:00 EST, Tablet, [facility]/pharmacy #[id number], 180, cm, 08/01/19 10:43:00 EST, Height Start Date: 09/03/19 Stop Date: 08/28/20 Status: Ordered aspirin 81 mg oral tablet 1 tablet = 81 mg, By Mouth, Daily, for 30 days, # 30 tablet, 11 Refills, Hard Stop 09/03/19 14:22:51 EST, 09/08/18 14:22:51 EST, Tablet, [facility]/pharmacy #[id number] Start Date: 09/08/18 Stop [...] Maintenance, 08/16/19 14:00:00 EST, CR Capsule, [facility]/pharmacy #0843, 172, cm, 08/11/19 13:32:00 [...] 05/09/19 9:31:26 EST, Route to Pharmacy Electronically, [id number], [facility]/pharmacy #[id number] Start Date: 05/09/19 Status: Ordered Colace sodium 100 mg oral capsule 100 mg, 1, capsule, By Mouth, 2 times a day, PRN, # 60 capsule, Refills 5, Tot. Refills 5, Maintenance, for constipation, 04/25/19 13:50:52 EDT, Route to Pharmacy Electronically, [id number], [facility]/pharmacy #0843 Start Date: 04/25/19 Status: [...] 02/14/19 16:39:14 EDT, Route to Pharmacy Electronically, [id number], [facility]/pharmacy #0843 Start Date: 02/14/19 Status: [...] 01/21/19 11:25:36 EDT, Route to Pharmacy Electronically, [id number], [facility]/pharmacy #0843 Start Date: 01/21/19 [...] 06/21/19 14:10:15 EST, Route to Pharmacy Electronically, [facility]/pharmacy #[id number], 180, cm, 06/17/19 10:36:11 EST, Height Start Date: 06/21/19 Status: Ordered metoprolol 50 mg oral tablet 75 mg, 1.5, tablet, By Mouth, 2 times a day, stop metoprolol 50 mg twice daily, # 180 tablet, Refills 2, Tot. Refills 2, Maintenance, 08/26/19 9:30:00 EST, Route to Pharmacy Electronically, [facility]/pharmacy #0843, 172, cm, 08/23/19 10:02:00 EST, Height, 9... Start Date: 08/26/19 Status: Ordered nicotine 2 mg oral transmucosal lozenge 1 lozenge = 2 mg, By Mouth, Every 2 hours, SUCK UP TO Q1 HOURS 10 DAILY, # 144 lozenge, 2 Refills, Maintenance, 07/15/19 12:34:00 EST, [facility]/pharmacy #0843, 1 lozenge By Mouth [...] CALL 911 IF PAIN NOT RELIEVED, [facility]/pharmacy #0843 Start Date: 02/17/19 Status: Ordered NovoLOG FlexPen 100 units/mL subcutaneous solution See Instructions, # 15 Unknown, Refills 5 Tot. Refills 5, INJECT 0-18 UNITS SUBCUTANEOUSLY WITH MEALS FOR SLIDING SCALES, [facility]/pharmacy #[id number] Start Date: 01/04/19 Status: Ordered Pen [place], 31 G x 5 mm BD Ultra [...] 01/21/19 11:26:23 EDT, Route to Pharmacy Electronically, [id number], [facility]/pharmacy #0843 Start Date: 01/21/19 Status: [...] EST, Tablet, this was previously sent to [facility] pharmacy Start Date: 05/17/19 Stop Date: 05/11/20 Status: Ordered Tresiba FlexTouch 200 units/mL subcutaneous solution = 90 units, Subcutaneous Infusion, Daily, at bedtime, # 15 mL, 5 Refills, Maintenance, 08/04/19 13:13:00 EST, [facility]/pharmacy #[id number], 180, cm, 08/01/19 10:43:00 [...] renal insufficiency, stage III (moderate)(Confirmed) Active ASHD; [place] 2012/stent circumfl ex vessel cath;abdelrahman 2018(Confirmed) 3 [...] mild to moderate. 3MI 2012 circumflex stent [place] 4secondary to hep C 524 weeks therapy with sofosbuvir/weight based ribavirin 31410 inferolateral stent bare metal circumflex 7DR Marissa morgan;Dr Schwartz 8repeat colonoscopy in 5 years Procedures Procedure Date Related Diagnosis Body Site Status CT of thorax LDCT 1 09/10/18 Compl eted 13 nodules, 2 in the right lung [...]
--- OUTSIDE RECORDS SUMMARY | 2024-06-01 12:00 | XMS_ITS | Continuity of Care Document ---
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 Medications aspirin 81 mg oral delayed release tablet 1 tablet, By Mouth, Daily, # 30 tablet, 11 Refills, Maintenance, 06/26/20 12:19:00 EST, [facility], 175, cm, 06/25/20 16:11:00 EST, Height, 83.6, [...] Refills, Maintenance, 01/23/21 11:08:00 EDT, CR Capsule, [id number], 175.3, cm, 01/21/21 12:58:00 EDT, Height, 83.6, kg, 04/23/20 17:46:00EDT, Dry Weight Start Date: 01/23/21 Stop Date: 01/18/22 Status: Ordered cholecalciferol 2000 intl units oral capsule 1 capsule = 2,000 International_Units, By Mouth, Daily, # 30 capsule, 5 Refills, Maintenance, 11/02/20 10:48:00 EDT, Capsule, [id number], 175, cm, 09/21/20 11:29:00 EDT, Height, 83.6, kg, 04/23/20 17:46:00 EDT, Dry Weight Start Date: 11/02/20 Status: Ordered cloNIDine 0.2 mg oral tablet 0.2 mg, 1, tablet, By Mouth, 2 times a day, # 60 tablet, Refills 5, Tot. Refills 5, Maintenance, 02/28/21 10:13:00 EDT, Route to Pharmacy Electronically, [facility]/pharmacy #[id number], 175.3, cm, 01/21/21 12:58:00 EDT, Height, 83.6, kg, 04/23/20 17:46:00 EDT, Start Date: 02/28/21 Status: Ordered Daily Simone oral tablet 1 tablet, By Mouth, Daily, # 30 tablet, 5 Refills, Maintenance, 09/19/20 8:25:00 EDT, Tablet, [facility]/pharmacy #[id number], 1 tablet By Mouth Daily,x30 days, 175, cm, 07/20/20 10:29:00 EST, Height, 83.6, kg, 04/23/20 17:46:00 EDT, Dry Weight Start Date: 09/19/20 Stop Date: 03/18/21 Status: Ordered docusate sodium 100 mg oral capsule 1 capsule, By Mouth, 2 times a day, PRN NEEDED FOR CONSTIPATION, # 60 capsule, 5 Refills, Maintenance, 01/22/21 12:45:00 EDT, [facility], 175.3, cm, 01/21/21 12:58:00 EDT, Height, 83.6, kg, 04/23/20 17:46:00 EDT, Dry Weight Start Date: 01/22/21 Status: Ordered folic acid 1 mg oral tablet 1, tablet, By Mouth, Daily, # 30 tablet, Refills 5, Tot. Refills 0, Maintenance, 01/18/21 14:44:00 EDT, Route to Pharmacy Electronically, [id number], 175, cm, 12/24/20 11:20:00 EDT, Height, 83.6, [...] tablet, 5 Refills, Maintenance, 02/27/20 15:23:00 EDT, [facility]/pharmacy #[id number], 172, cm, 12/14/19 8:02:00 EDT, Height, 97.8, kg, 08/11/19 5:24:00 EST, Dry Weight Start Date: 02/27/20 Status: Ordered LaMICtal 100 mg oral tablet 100 mg, 1, tablet, By Mouth, 2 times a day, # 60 tablet, Refills 3, Tot. Refills 3, Maintenance, 01/21/19 11:25:36 EDT, Route to Pharmacy Electronically, [id number], [facility]/pharmacy #[id number] Start Date: 01/21/19 [...] tablet, 0 Refills, Maintenance, 03/22/21 12:39:00 EDT, [id number], 175.2, cm, 03/18/21 10:48:00 EDT, Height, 88.3, kg, 03/12/21 9:16:00 EDT, Dry Weight Start Date: 03/22/21 Status: Ordered nicotine 2 mg oral transmucosal lozenge See Instructions, USE 1 LOZENGE UP TO EVERY 1 HOUR NEEDED FOR 10 DAYS, # 162 lozenge, 1 Refills,[id number], 10, USE 1 LOZENGE UP TO EVERY 1 HOUR NEEDED FOR 10 DAYS, 175.2, cm, 03/18/21 10:48:00 EDT, Height, 88.3, kg, 03/12/21 9:16:00 EDT,... Start Date: 03/21/21 Status: Ordered nitroglycerin 0.4 mg sublingual tablet [...] 9:13:... Start Date: 02/01/20 Status: Ordered Pen [place], 31 G x 5 mm BD Ultra [...] tablet, 1 Refills, Maintenance, 01/08/21 14:43:00 EDT, [facility]/pharmacy#[id number], 175, cm, 12/24/20 11:20:00 EDT, Height, 83.6, kg, 04/23/20 17:46:00 EDT, Dry Weight Start Date: 01/08/21 Status: Ordered SEROquel 100 mg oral tablet 100 mg, 1, tablet, By Mouth, 2 times a day, # 60 tablet, Refills 2, Tot. Refills 2, Maintenance, 09/21/19 10:41:00 EDT, Route to Pharmacy Electronically, [facility]/pharmacy #[id number], 172, cm, 09/05/19 16:17:00 [...] each, 1 Refills, Maintenance, 12/10/20 11:14:00 EDT, [facility]/pharmacy #[id number], 175, cm, 09/21/20 11:29:00 EDT, Height, 83... Start Date: 12/10/20 Status: Ordered Trulicity Pen 0.75 mg/0.5 mL subcutaneous solution 0.5 mL = 0.75 mg, Subcutaneous Injection, Every week, # 2.5 mL, 11 Refills, Maintenance, 12/24/20 11:37:00 EDT, Solution, [facility]/pharmacy #[id number], Partial fill upon [...] 1, 2 Active Cigarette smoker(Confirmed) Active ASHD; [place] 2012/stent circumfl ex vessel cath;abdelrahman 2018(Confirmed) 3 [...] mild to moderate. 3MI 2012 circumflex stent [place] 4secondary to hep C 524 weeks therapy with sofosbuvir/weight based ribavirin 38625 inferolateral stent bare metal circumflex 7DR Marissa sx;Dr Schwartz 8hyperplatic polyp repeat screening in 2025 9repeat colonoscopy in 5 years Diagnosis Diagnosis Type Effective Dates Health Status Clinical Service Informant ASHD; [place] circumflex vessel cath;abdelrahman 2018 Discharge Diagnosis 03/18/21 Dental decay Discharge Diagnosis 03/18/21 Cigarette smoker Discharge Diagnosis 03/18/21 Type 2 diabetes mellitus with diabetic nephropathy Discharge Diagnosis 03/18/21 Vital Signs Most recent to oldest [Reference Range]: 1 Height 175.2 cm (03/18/21 10:48 AM) Social History Social History Type Response Smoking Status Former smoker, quit more than 30 days ago; Interested in cessation: No; Other: quit; Tobacco use times per day: prio 1/2-1 ppd; Total pack years: 38; Started at age: 12; Stopped at age: 63; entered on: 07/20/20 Sex
--- OUTSIDE RECORDS SUMMARY | 2024-06-01 12:00 | XMS_ITS | Continuity of Care Document ---
Author Organization [facility] Shawn Lazaro lt Address [address] [place] [address]- Care Team Providers Care Senior Clinical Project Manager Name Role Phone Aylin HICKMAN, Ben Willis Primary Care Physician [facility] Date[facility]s): 12/05/20 - 01/04/21 [facility] Escobar Adult [address] [place] [address]- Allergies, Adverse Reactions, Alerts Substance Reaction Severity [...] 10:48:07 EST, Aerosol, Route to Pharmacy Electronically, [id number], [facility]/pharmacy #[id number], 180, cm, 06/17/19 10:36:11 EST, Height Start Date: 06/17/19 Status: Ordered aspirin 81 mg oral delayed release tablet 1 tablet, By Mouth, Daily, # 30 tablet, 11 Refills, Maintenance, 06/26/20 12:19:00 EST, [facility], 175, cm, 06/25/20 16:11:00 EST, Height, 83.6, [...] Refills, Maintenance, 01/02/20 15:47:00 EDT, CR Capsule, [facility]/pharmacy #[id number], 172, cm, 12/14/19 8:02:00 EDT, Height, 97.8, kg, 08/11/19 5:24:00 EST, Dry Weight Start Date: 01/02/20 Stop Date: 12/27/20 Status: Ordered cholecalciferol 2000 intl units oral capsule 1 capsule = 2,000 International_Units, By Mouth, Daily, # 30 capsule, 5 Refills, Maintenance, 11/02/20 10:48:00 EDT, Capsule, [facility]/pharmacy #[id number], 175, cm, 09/21/20 11:29:00 EDT, Height, 83.6, kg, 04/23/20 17:46:00 EDT, Dry Weight Start Date: 11/02/20 Status: Ordered cloNIDine 0.2 mg oral tablet 0.2 mg, 1, tablet, By Mouth, 2 times a day, # 60 tablet, Refills 5, Tot. Refills 5, Maintenance, 09/09/20 19:43:00 EST, Route to Pharmacy Electronically, [facility]/pharmacy #[id number], 175, cm, 07/20/20 10:29:00 EST, Height, 83.6, kg, 04/23/20 17:46:00 EDT, Dry... Start Date: 09/09/20 Status: Ordered Colace sodium 100 mg oral capsule 100 mg, 1, capsule, By Mouth, 2 times a day, PRN, # 60 capsule, Refills 5, Tot. Refills 5, Maintenance, for constipation, 02/27/20 15:25:00 EDT, Route to Pharmacy Electronically, [facility]/pharmacy #[id number], 172, cm, 12/14/19 8:02:00 EDT, Height, 97.8, kg, 02/... Start Date: 02/27/20 Status: Ordered Crestor 20 mg oral tablet 1 tablet = 20 mg, By Mouth, Daily, # 90 tablet, 3 Refills, Maintenance, 01/02/20 15:46:00 EDT, Tablet, [facility]/pharmacy #[id number], 172, cm, 12/14/19 8:02:00 EDT, Height, 97.8, kg, 08/11/19 5:24:00 EST, Dry Weight Start Date: 01/02/20 Status: Ordered Daily Simone oral tablet 1 tablet, By Mouth, Daily, # 90 tablet, 3 Refills, Maintenance, 09/21/20 11:35:00 EDT, Tablet, [facility]/pharmacy #[id number], Partial fill upon patient request if the prescription is for a schedule II opioid drug., 1 tablet By Mouth Daily, 175, cm, 09/21/20 11:2... Start Date: 09/21/20 Status: Ordered Daily Simone oral tablet 1 tablet, By Mouth, Daily, # 30 tablet, 5 Refills, Maintenance, 09/19/20 8:25:00 EDT, Tablet, [facility]/pharmacy #[id number], 1 tablet By Mouth Daily,x30 days, 175, cm, 07/20/20 10:29:00 EST, Height, 83.6, kg, 04/23/20 17:46:00 EDT, Dry Weight Start Date: 09/19/20 Stop Date: 03/18/21 Status: Ordered folic acid 1 mg oral tablet 1 mg, 1, tablet, By Mouth, Daily, # 30 tablet, Refills 5, Tot. Refills 5, Maintenance, 07/04/20 13:24:00 EST, Route to Pharmacy Electronically, [facility]/pharmacy #[id number], 175, cm, 06/25/20 16:11:00 EST, [...] tablet, 5 Refills, Maintenance, 02/27/20 15:23:00 EDT, [facility]/pharmacy #[id number], 172, cm, 12/14/19 8:02:00 EDT, Height, 97.8, kg, 08/11/19 5:24:00 EST, Dry Weight Start Date: 02/27/20 Status: Ordered Golytely - oral powder for reconstitution 240 mL, By Mouth, Daily, bowel instruction, # 4,000 mL, 0 Refills, Maintenance, 06/21/20 16:44:00 EST, REC Powder, [facility]/pharmacy #[id number], Partial fill upon patient request if the prescription is for a schedule II opioid drug., 240 mL By Mouth Daily,Instr... Start Date: 06/21/20 Status: Ordered LaMICtal 100 mg oral tablet 100 mg, 1, tablet, By Mouth, 2 times a day, # 60 tablet, Refills 3, Tot. Refills 3, Maintenance, 01/21/19 11:25:36 EDT, Route to Pharmacy Electronically, [id number], [facility]/pharmacy #[id number] Start Date: 01/21/19 Stop Date: [...] tablet, 0 Refills, Maintenance, 11/16/20 11:46:00 EDT, [id number], 175, cm, 09/21/20 11:29:00 EDT, Height, 83.6, kg, 04/23/20 17:46:00 EDT, Dry Weight Start Date: 11/16/20 Status: Ordered nicotine 2 mg oral transmucosal lozenge See Instructions, suck, up to q1 hrs 10 daily, # 162 lozenge, 1 Refills, Maintenance, 12/12/20 14:39:00 EDT, [facility]/pharmacy #[id number], suck, up to q1 hrs 10 daily, 175, cm, 09/21/20 11:29:00 EDT, Height, 83.6, kg, 04/23/20 17:46:00 EDT, Dry Weight Start Date: 12/12/20 Status: Ordered nicotine 4 mg oral transmucosal lozenge 1 lozenge = 4 mg, By Mouth, Every hour, dispense 2 boxes of 81 count as directed on package labeling, # 162 lozenge, 3 Refills, Maintenance, 09/25/20 14:39:00 EDT, [facility]/pharmacy #[id number], 1 lozenge By Mouth Every [...] 2 Refills, Soft Stop, 06/01/20 13:51:00 EST, [facility]/pharmacy #[id number], 175, cm, 05/24/20 12:46:00 EST, [...] 9:13:... Start Date: 02/01/20 Status: Ordered Pen [place], 31 G x 5 mm BD [...] 09/21/19 10:41:00 EDT, Route to Pharmacy Electronically, [facility]/pharmacy #[id number], 172, cm, 09/05/19 16:17:00 EST, [...] EST, Tablet, this was previously sent to [facility] Start Date: 05/17/19 Stop Date: 05/11/20 Status: Ordered Tresiba FlexTouch 200 units/mL subcutaneous solution = 12 units, Subcutaneous Infusion, Daily, at bedtime, increase 2 units every 3 days until FBS < 120 per PCP max dose 60 units qday, # 3 each, 1 Refills, Maintenance, 12/10/20 11:14:00 EDT, [facility]/pharmacy #[id number], 175, cm, 09/21/20 11:29:00 EDT, [...] Active Glomerulonephritis,mesangial proliferative/fibrillary(Confirmed) 1, 2 Active ASHD; [place] 2012/stent circumfl ex vessel cath;abdelrahman 2018(Confirmed) 3 [...] mild to moderate. 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 2012/[place] 4secondary to hep C 524 weeks therapy with sofosbuvir/weight based ribavirin 30324 inferolateral stent bare metal circumflex 7DR Marissa [...]
--- OUTSIDE RECORDS SUMMARY | 2024-06-01 12:00 | XMS_ITS | Continuity of Care Document ---
Author Organization [facility] Lazaro lt Address [address] [place] [address]- Care Team Providers Care Restaurant Assistant Name Role Phone Carrie Kelly RIVERA Primary Care Physician [phone] Encounter [facility] Date(s): 02/15/24 - 02/22/24 [facility] Adult [address] [place] [address]- Encounter Diagnosis Acute sinusitis(Discharge Diagnosis) - 02/15/24 Acute bronchitis(Discharge Diagnosis) - 02/15/24 Attending Physician: Christina Lu Allergies, Adverse Reactions, Alerts Substance Reaction Severity Status Bee Stings Active Immunizations Given and Recorded Vaccine Date Status Refusal Reason SARS-CoV-2(COVID-19)mRNA-LNP vac([id number]) 12/31/23 Recorded SARS-CoV-2(COVID-19)mRNA-LNP vac([id number]) 05/08/23 Recorded tetanus/diphtheria/pertussis, acel(Tdap) 10/15/23 Recorded tetanus/diphtheria/pertussis, [...] 02/03/23 Recorded zoster vaccine, inactivated 08/09/19 Recorded [id number] 12y+ bivalent booster vax 05/17/22 Recorded SARS-CoV-2 [...] adult vaccine 4 12/10/10 Given 1Result Comment: [id number] 2Result Comment: [id number] 3Admin Note: pt waited 10 mins post [...] 0 Refills, Maintenance, 02/02/24 15:25:00 EDT, [id number], with dose [facility]. any albuterol inhaler covered [...] day prn cough (Max 600 mg in p75-biqu period), # 30 capsule, 0 Refills, Maintenance, [...] 0 Refills, Maintenance, 01/11/24 14:46:00 EDT, Tablet, [facility]/pharmacy #[id number], Partial fill upon patient request if the prescription is for a schedule II opioid drug., 168, cm, 01/11/24 14:42:00 EDT, Height,... Start Date: 01/11/24 Status: Ordered DilTIAZem (Eqv-Cardizem CD) 180 mg/24 hours oral capsule, extended release 1 capsule, By Mouth, Daily, # 90 capsule, 0 Refills, Maintenance, 02/12/24 11:53:00 EDT, [facility], 168, cm, 02/03/24 10:41:00 EDT, Height Start [...] 02/17/24 7:23:00 EDT, [facility]ically, [id number], 168, cm, 02/15/24 13:43:00 EDT, Height [...] 01/21/19 11:25:36 EDT, Route to Pharmacy Electronically, [id number], [facility]/pharmacy #[id number] Start Date: 01/21/19 Stop Date: 05/21/19 Status: Ordered lisinopril 40 mg oral tablet 1 tablet, By Mouth, Daily, # 90 tablet, 1 Refills, Maintenance, 01/26/24 9:20:00 EDT, [facility], 168, cm, 01/11/24 14:42:00 EDT, Height, 93, [...] mL, 0 Refills, Maintenance, 02/02/24 15:28:00 EDT, [place], [facility]/pharmacy #[id number], Partial fill upon patient... Start Date: 02/02/24 Status: Ordered Pen [place], 31 G x 5 mm BD Ultra [...] Refills, Maintenance, 02/04/24 16:39:00 EDT, [facility], 168, cm, 02/03/24 10:41:00 EDT, Height Start [...] ml/min Confirmed Active ASHD; [place] 2012/stent circumflex 2012/vessel cath;abdelrahman 2018 3 Confirmed [...] 524 weeks therapy with sofosbuvir/weight based ribavirin 36497 inferolateral stent bare metal circumflex 7DR Marissa saucedax;Dr Schwartz 8hyperplatic polyp repeat screening in 2025 9repeat colonoscopy in 5 years Diagnosis Diagnosis Type Effective Dates Health Status Clinical Service Informant Acute sinusitis Discharge Diagnosis 02/15/24 Acute bronchitis Discharge Diagnosis 02/15/24 Vital Signs Most recent to oldest [Reference Range]: 1 Height 168.0 cm (02/15/24 1:43 PM) Social History Social History Type Response Smoking Status Former smoker, quit more than 30 days ago; Interested in cessation: No; Other: quit; Tobacco use times per day: prio 1/2-1 ppd; Total pack years: 38; Started at age: 12; Stopped at age: 63; entered on: 07/20/20 Sex Patient Care team information Care Team Personnel Name: Jeffrey Mccoy MD Position: [facility] Renal MD Member Role: Lifetime Consulting Physician Address: Address: [address] [place] [address] [address] [facility] [place], [place] [address] Name: Kelly Butler NP Position: [facility] PCO Associate Professional Member Role: PCP Address: Address: [address] [place] [id number] Name: Kristin Mckenzie Position: [facility] Outreach Member Role: Lifetime Consulting Physician Name: Prieto Tobin RN Position: [facility] RN Member Role: Primary Care Nurse Name: Jonn Hui DO Position: [facility] Renal MD Member Role: Lifetime Consulting Physician Address: Address: [address] [place] [address] [address] [facility] [place], [place] [address] Name: Luis Angel Stephen RN Position: [facility] RN Member Role: Primary Care Nurse Care Team Related Persons Name: CARLOS A BORDEN Address: home [address] [place] [address] Name: LEVI BORDEN Address: home [address] [place] [address]
--- OUTSIDE RECORDS SUMMARY | 2024-06-01 12:00 | XMS_ITS | Continuity of Care Document ---
Author Organization [facility] Nando Escobar Lazaro lt Address [address] [place] [address]- Care Team Providers Care Gas Or Water Meter Installer Name Role Phone Ben Viera MD Primary Care Physician Encounter [facility] Date(s): 03/21/20 - 03/28/20 [facility] Nando Escoabr Adult [address] [place] [address]- [facility] Encounter Diagnosis 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) - 03/21/20 Insulin long-term use(Discharge Diagnosis) - 03/21/20 ASHD; [place] 2012/stent circumflex vessel cath;abdelrahman 2019(Discharge Diagnosis) - 03/21/20 Chronic kidney disease, stage 4 (severe)(Discharge Diagnosis) - 03/21/20 Hyperkalemia(Discharge Diagnosis) - 03/21/20 Ex-smoker quit 2018/ldct enrolled(Discharge Diagnosis) - 03/21/20 Attending Physician: Ben Viera MD Allergies, Adverse [...] 10:48:07 EST, Aerosol, Route to Pharmacy Electronically, [id number], [facility]/pharmacy #[id number], 180, cm, 06/17/19 10:36:11 EST, Height Start Date: 06/17/19 Status: Ordered aspirin 81 mg oral tablet 1 tablet = 81 mg, By Mouth, Daily, # 30 tablet, 11 Refills, Maintenance, 09/03/19 14:22:00 EST, Tablet, [facility]/pharmacy #[id number], 180, cm, 08/01/19 10:43:00 [...] Maintenance, 01/02/20 15:47:00 EDT, CR Capsule, [facility]/pharmacy #[id number], 172, cm, 12/14/19 8:02:00 EDT, Height, 97.8, kg, 08/11/19 5:24:00 EST, Dry Weight Start Date: 01/02/20 Stop Date: 12/27/20 Status: Ordered cholecalciferol 2000 intl units oral capsule 1 capsule = 2,000 International_Units, By Mouth, Daily, # 30 capsule, 5 Refills, Maintenance, 11/02/19 10:15:00 EDT, Capsule, [facility]/pharmacy #[id number], 172, cm, 09/05/19 16:17:00 EST, Height, 97.8, kg, 08/11/19 5:24:00 EST, Dry Weight Start Date: 11/02/19 Status: Ordered cloNIDine 0.2 mg oral tablet 0.2 mg, 1, tablet, By Mouth, 2 times a day, # 60 tablet, Refills 2, Tot. Refills 2, Maintenance, 03/08/20 16:50:00 EDT, Route to Pharmacy Electronically, [facility]/pharmacy #[id number], 172, cm, 12/14/19 8:02:00EDT, Height, 97.8, kg, 08/11/19 5:24:00 EST, Dry We... Start Date: 03/08/20 Status: Ordered Colace sodium 100 mg oral capsule 100 mg, 1, capsule, By Mouth, 2 times a day, PRN, # 60 capsule, Refills 5, Tot. Refills 5, Maintenance, for constipation, 02/27/20 15:25:00 EDT, Route to Pharmacy Electronically, [facility]/pharmacy #[id number], 172, cm, 12/14/19 8:02:00 EDT, Height, 97.8, kg, 02/... Start Date: 02/27/20 Status: Ordered Crestor 20 mg oral tablet 1 tablet = 20 mg, By Mouth, Daily, # 90 tablet, 3 Refills, Maintenance, 01/02/20 15:46:00 EDT, Tablet, [facility]/pharmacy #[id number], 172, cm, 12/14/19 8:02:00 EDT, Height, 97.8, kg, 08/11/19 5:24:00 EST, Dry Weight Start Date: 01/02/20 Status: Ordered Daily Simone oral tablet 1 tablet, By Mouth, Daily, # 30 tablet, 5 Refills, Maintenance, 03/01/20 14:48:00 EDT, Tablet, [facility]/pharmacy #[id number], 1 tablet By Mouth Daily,x30 days, 172, cm, 12/14/19 8:02:00 EDT, Height, 97.8, kg, 08/11/19 5:24:00 EST, Dry Weight Start Date: 03/01/20 Stop Date: 08/28/20 Status: Ordered folic acid 1 mg oral tablet 1 mg, 1, tablet, By Mouth, Daily, # 30 tablet, Refills 5, Tot. Refills 5, Maintenance, 12/29/19 11:13:00 EDT, Route to Pharmacy Electronically, [facility]/pharmacy #[id number], 172, cm, 12/14/19 8:02:00 [...] tablet, 5 Refills, Maintenance, 02/27/20 15:23:00 EDT, [facility]/pharmacy #[id number], 172, cm, 12/14/19 8:02:00 EDT, Height, 97.8, kg, 08/11/19 5:24:00 EST, Dry Weight Start Date: 02/27/20 Status: Ordered LaMICtal 100 mg oral tablet 100 mg, 1, tablet, By Mouth, 2 times a day, # 60 tablet, Refills 3, Tot. Refills 3, Maintenance, 01/21/19 11:25:36 EDT, Route to Pharmacy Electronically, [id number], [facility]/pharmacy #[id number] Start Date: 01/21/19 Stop [...] 02/28/20 8:20:00 EDT, Route to Pharmacy Electronically, [facility]/pharmacy #[id number], 172, cm, 12/14/19 8:02:00 EDT, Height, 97.8, kg, 08/11/19 5:24:00 EST, Dry Weight Start Date: 02/28/20 Status: Ordered metoprolol 50 mg oral tablet 75 mg, 1.5, tablet, By Mouth, 2 times a day, stop metoprolol 50 mg twice daily, # 180 tablet, Refills 2, Tot. Refills 2, Maintenance, 01/02/20 15:45:00 EDT, Route to Pharmacy Electronically, [facility]/pharmacy #[id number], 172, cm, 12/14/19 8:02:00 EDT, Height, 9... Start Date: 01/02/20 Status: Ordered nicotine 2 mg oral transmucosal lozenge See Instructions, suck, up to q1 hrs 10 daily, # 144 lozenge, 1 Refills, Maintenance, 03/21/20 11:13:00 EDT, [facility]/pharmacy #[id number], suck, up to q1 hrs 10 daily, 172, cm, 03/21/20 11:04:00 EDT, Height, 97.8, kg, 08/11/19 5:24:00 EST, Dry Weight Start Date: 03/21/20 Status: Ordered nicotine 4 mg oral transmucosal lozenge 1 lozenge = 4 mg, By Mouth, Every hour, # 132 lozenge, 1 Refills, Maintenance, 11/29/19 8:13:00 EDT, [facility]/pharmacy #[id number], 1 lozenge By Mouth Every hour, [...] CALL 911 IF PAIN NOT RELIEVED, [facility]/pharmacy #[id number] Start Date: 02/17/19 Status: Ordered NovoLOG FlexPen 100 units/mL subcutaneous solution See Instructions, INJECT 0-18 UNITS SUBCUTANEOUSLY WITH MEALS FOR SLIDING SCALES, # 15 Unknown, 5 Refills, Soft Stop, 02/01/20 9:13:00 EDT, [facility]/pharmacy #[id number], 172, cm, 12/14/19 8:02:00 EDT, Height, 97.8, kg, 08/11/19 5:24:00 EST, Dry Weight Start Date: 02/01/20 Status: Ordered Ozempic (0.25 mg or 0.5 mg dose) 2 mg/1.5 mL subcutaneous solution See Instructions, INJECT 0.25 MG SUBCUTANEOUSLY WEEKLY, # 1.5 Unknown, 0 Refills, Maintenance, [id number], 172, cm, 12/14/19 8:02:00 EDT, Height, 97.8, kg, 08/11/19 5:24:00 EST, Dry Weight Start Date: 02/09/20 Status: Ordered Pen [place], 31 G x 5 mm BD Ultra [...] 10:41:00 EDT, Route to Pharmacy Electronically, [facility]/pharmacy #[id number], 172, cm, 09/05/19 16:17:00 [...] EST, Tablet, this was previously sent to [facility] pharmacy Start Date: 05/17/19 Stop Date: [...] Active Glomerulonephritis,mesangial proliferative/fibrillary(Confirmed) 1, 2 Active ASHD; [place] 2012/stent circumfl ex vessel [...] mild to moderate. 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 2012/PR 4secondary to hep C 524 weeks therapy with sofosbuvir/weight based ribavirin 91254 inferolateral stent bare metal circumflex 7DR Molddoverno sx;Dr Schwartz 8repeat colonoscopy in 5 years Diagnosis Diagnosis Type Effective Dates Health Status Clinical Service Informant Type 2 diabetes mellitus with diabetic nephropathy Discharge Diagnosis 03/21/20 Insulin long-term use Discharge Diagnosis 03/21/20 ASHD; [place] 2012/stent circumflex vessel cath;abdelrahman 2018 Discharge Diagnosis 03/21/20 Chronic kidney disease, stage 4 (severe) Discharge Diagnosis 03/21/20 Hyperkalemia Discharge Diagnosis 03/21/20 Ex-smoker quit 2018ldct enrolled Discharge Diagnosis 03/21/20 Vital Signs Most recent to oldest [Reference Range]: 1 Height 172 cm (03/21/20 11:04 AM) Social History Social History Type Response Smoking Status Former smoker, quit more than 30 days ago; Interested in cessation: Yes; Tobacco use times per day: 0.5-1 PPD; Total pack years: 38; Started at age: 12; Stopped at age: 63; entered on: 12/14/19 Sex
--- OUTSIDE RECORDS SUMMARY | 2024-06-01 12:00 | XMS_ITS | Continuity of Care Document ---
Author Organization [facility] Address [address] [place] [address]- Care Team Providers Care Director Airport Name Role Phone Carrie Kelly RIVERA Primary Care Physician [phone] Encounter [facility] Date(s): 12/23/22 - 01/22/23 [facility] [address] [place] [id number]- Allergies, Adverse Reactions, Alerts Substance Reaction Severity [...] influenza virus vaccine, inactivated 04/16/10 Give n [id number] 12y+ bivalent booster vax 05/17/22 Recorded SARS-CoV-2 [...] tablet, 1 Refills, Maintenance, 12/30/22 14:35:00 EDT, [id number], 175, cm, 10/09/22 16:51:00 EDT, [...] Refills, Maintenance, 01/07/23 21:36:00 EDT, [facility], 90, TAKE 1 TABLET BY MOUTH EVERY [...] capsule, 5 Refills, Maintenance, 07/18/22 11:59:00 EST, [facility]/pharmacy #[id number], 175, cm, 07/17/22 10:33:00 EST, Height, 93, kg, 01/28/22 14:55:00 EDT, Dry Weight Start Date: 07/18/22 Status: Ordered Flonase 50 mcg/inh nasal spray 1 sprays, Nares, Both, 2 times a day, # 16 Gm, 0 Refills, Maintenance, 09/05/22 9:15:00 EST, [place],[facility]/pharmacy #[id number], Partial fill upon patient request if the prescription is for a schedule II opioid drug., 1 sprays Nares, Both 2 times a day, 175, c... Start Date: 09/05/22 Status: Ordered folic acid 1 mg oral tablet 1, tablet, By Mouth, Daily, # 90 tablet, Refills 1, Tot. Refills 1, Maintenance, 01/08/23 13:00:00 EDT, Route to Pharmacy Electronically, [facility]/pharmacy #[id number], 175, cm, 10/09/22 16:51:00 EDT, [...] 01/21/19 11:25:36 EDT, Route to Pharmacy Electronically, [id number], [facility]/pharmacy #[id number] Start Date: 01/21/19 Stop Date: 05/21/19 Status: Ordered lisinopril 40 mg oral tablet 1 tablet, By Mouth, Daily, # 90 tablet, 0 Refills, Maintenance, 12/29/22 11:59:00 EDT, [facility]/pharmacy#[id number], 175, cm, 10/09/22 16:51:00 EDT, Height, 93, kg, 01/28/22 14:55:00 EDT, Dry Weight Start Date: 12/29/22 Status: Ordered Metoprolol Tartrate 50 mg oral tablet 1.5 tablet, By Mouth, 2 times a day, # 270 tablet, 1 Refills, Maintenance, 09/01/22 13:28:00 EST, [facility] STORE 79253, 175, cm, 07/17/22 10:33:00 EST, Height, 93, [...] Weight Start Date: 11/07/22 Status: Ordered Pen [place], 31 G x 5 mm BD Ultra [...] capsule, 2 Refills, Maintenance, 08/07/22 12:55:00EST, Capsule, [facility]/pharmacy #[id number], 175, cm, 07/17/22 10:33:00 EST, [...] 11/03/22 15:04:00 EDT, Route to Pharmacy Electronically, [id number] Tablet,Partial fill upon patient request if the prescripti... Start Date: 11/03/22 Status: Ordered SEROquel 100 mg oral tablet 100 mg, 1, tablet, By Mouth, 2 times a day, PRN, # 1 tablet, Refills 2, Tot. Refills 2, Maintenance, Anxiety, 09/21/19 10:41:00 EDT, Route to Pharmacy Electronically, [id number], 172, cm, 09/05/19 16:17:00 EST, [...] 1 Refills, Maintenance, 01/13/23 9:59:00 EDT, Solution, [id number], 175, cm, 10/09/22 16:51:00 EDT, [...] 4, GFR 15-29 ml/min Confirmed Active ASHD; [place] 2012/stent circumflex vessel cath;abdelrahman 2018 3 Confirmed [...] 524 weeks therapy with sofosbuvir/weight based ribavirin 97588 inferolateral stent bare metal circumflex 7DR Marissa [...] Team Personnel Name: Jeffrey Mccoy MD Position: [facility] Renal MD Member Role: Lifetime Consulting Physician Address: Address: [address] [place] [address] [facility] [place] [address]- Name: Kelly Butler NP Position: [facility] PCO Associate Professional Member Role: PCP Address: Address: [address] [place] [address]- Name: Kristin Mckenzie Position: [facility] Outreach Member Role: Lifetime Consulting Physician Name: Prieto Tobin RN Position: [facility] RN Member Role: Primary Care Nurse Name: Jonn Hui DO Position: [facility] Renal MD Member Role: Lifetime Consulting Physician Address: Address: [address] [place], [place] [address] [place] [address]- Name: Luis Angel Stephen RN Position: [facility] RN Member Role: Primary Care Nurse Care Team Related Persons Name: CARLOS A BORDEN Address: home [address] [facility] [place] [address] Name: LEVI BORDEN Address: home [address] [place] [address]
--- OUTSIDE RECORDS SUMMARY | 2024-06-01 12:00 | XMS_ITS | Continuity of Care Document ---
Author Organization [facility] Nando Escobar Lazaro lt Address [address] [place] [address]- Care Team Providers Care Prepared Foods Team Leader Name Role Phone Carrie Kelly RIVERA Primary Care Physician [facility] Date[facility]s): 01/21/22 - 02/20/22 [facility] Nando Palominoley Adult [address] [place] [address]- Allergies, Adverse Reactions, Alerts Substance Reaction Severity [...] capsule, 5 Refills, Maintenance, 06/05/21 15:57:00 EST, [facility]/pharmacy #[id number], 175.2, cm, 05/27/21 11:26:00 EST, Height, 88.3, kg, 03/12/21 9:16:00 EDT, Dry Weight Start Date: 06/05/21 Status: Ordered folic acid 1 mg oral tablet 1, tablet, By Mouth, Daily, # 30 tablet, Refills 5, Tot. Refills 5, Maintenance, 07/25/21 15:59:00 EST, Route to Pharmacy Electronically, [facility]/pharmacy #[id number], 175.2, cm, 06/07/21 9:51:00 EST, [...] 01/21/19 11:25:36 EDT, Route to Pharmacy Electronically, [id number], [facility]/pharmacy #[id number] Start Date: 01/21/19 Stop Date: 05/21/19 Status: Ordered lisinopril 40 mg oral tablet 1 tablet = 40 mg, By Mouth, Daily, # 30 tablet, 3 Refills, Maintenance, 09/17/21 10:50:00 EDT, Tablet, [facility]/pharmacy #[id number], Partial fill upon patient request if the prescription is for a schedule II opioid drug., 175.2, cm, 07/31/21 11:20:00 EST, Heigh... Start Date: 09/17/21 Status: Ordered Metoprolol Tartrate 50 mg oral tablet 1.5 tablet, By Mouth, 2 times a day, # 270 tablet, 0 Refills, [facility], 175.2, cm, 11/15/21 11:18:00 EDT, Height, 88.3, kg, 03/12/21 9:16:00 EDT, Dry Weight Start Date: 12/12/21 Status: Ordered nicotine 21 mg/24 hr transdermal film, extended release 1 patch, Topically, Daily, for 30 days, # 30 patch, 1 Refills, Acute 04/18/22 14:19:00 EDT, 02/17/22 14:19:00 EDT, Patch, [facility]/pharmacy #[id number], 1 patch Topically Daily,x30 days, [...] tablet, 0 Refills, Maintenance, 12/31/21 17:21:00 EDT, [facility]/pharmacy #[id number], 175.2, cm, 12/18/21 14:10:00 EDT, Height... Start Date: 12/31/21 Status: Ordered NovoLOG FlexPen 100 units/mL injectable solution See Instructions, INJECT 0-18 UNITS SUBCUTANEOUSLY WITH MEALS FOR SLIDING SCALES, # 15 Unknown, 2 Refills, [facility]ORE 26141, 175.2, cm, 05/27/21 11:26:00 EST, Height, 88.3, kg, 03/12/21 9:16:00 EDT, Dry Weight Start Date: 06/04/21 Status: Ordered Pen [place], 31 G x 5 mm BD Ultra [...] capsule, 5 Refills, Maintenance, 11/19/21 11:25:00EDT, Capsule, [facility]/pharmacy #[id number], 175.2, cm, 11/15/21 11:18:00 EDT, Height, 88.3, kg, 03/12/21 9:16:00 EDT, Dry Weight Start Date: 11/19/21 Status: Ordered rosuvastatin 20 mg oral tablet 1 tablet, By Mouth, Daily, # 90 tablet, 1 Refills, [facility] ST[facility], 175, cm, 01/29/22 15:12:00 EDT,Height, 93, kg, 01/28/22 14:55:00 EDT, Dry Weight Start Date: 01/30/22 Status: Ordered SEROquel 100 mg oral tablet 100 mg, 1, tablet, By Mouth, 2 times a day, PRN, # 1 tablet, Refills 2, Tot. Refills 2, Maintenance, Anxiety, 09/21/19 10:41:00 EDT, Route to Pharmacy Electronically, [facility]/pharmacy #[id number], 172, cm, 09/05/19 16:17:00 EST, [...] 3 Refills, Maintenance, 12/18/21 14:33:00 EDT, Suspension, [facility]/pharmacy #[id number], 1 drops Eyes, Both 2 [...] # 30 capsule, 5 Refills, [facility], 175.2, cm, 11/15/21 11:18:00 EDT, Height, 88.3, kg, 03/12/21 9:16:00 EDT, Dry Weight Start Date: 11/17/21 Status: Ordered Problem List Condition Effective Dates Status Health Status Inform ant Bipolar disorder(Confirmed) Active Cervical spondylosis(Confirmed) Active Chronic back pain DJD(Confirmed) Active Glomerulonephritis,mesangial proliferative/fibrillary(Confirmed) 1, 2 Active Chronic renal failure, stage 4 (severe)(Confirmed) Active ASHD; [place] 2012/stent circumfl ex vessel cath;abdelrahman 2018(Confirmed) 3 [...] mild to moderate. 3MI 2012 circumflex stent 2013/[place] 4secondary to hep C 524 weeks therapy with sofosbuvir/weight based ribavirin 91721 inferolateral stent bare metal circumflex 7DR Marissa [...]
--- OUTSIDE RECORDS SUMMARY | 2024-06-01 12:00 | XMS_ITS | Continuity of Care Document ---
Author Organization [facility] Address [address] [place] [address]- Support Name Relationship Address Phone CARLOS A [...] Unknown Unav ailable Care Team Providers Care Shift Engineer Name Role Phone Carrie Kelly RIVERA Primary Care Physician Encounter [facility] Date(s): 04/19/24 - 05/19/24 [facility] [address] [place] [address] Attending Physician: Radha Biggs Admitting Physician: Radha Biggs Referring Physician: Radha Biggs Encounter Type: Triage Allergies, Adverse Reactions, Alerts [...] virus vaccine, inactivated 04/16/10 Give n SARS-CoV-2(COVID-19)mRNA-LNP vac([id number]) 12/31/23 Recorded SARS-CoV-2(COVID-19)mRNA-LNP vac([id number]) 05/08/23 Recorded tetanus/diphtheria/pertussis, acel(Tdap) 10/15/23 Recorded tetanus/diphtheria/pertussis, acel(Tdap) 07/28/11 Given pneumococcal 20-valent conjugate vaccine 3 05/01/23 Given zoster vaccine, inactivated 02/03/23 Recorded zoster vaccine, inactivated 08/09/19 Recorded [id number] 12y+ bivalent booster vax 05/17/22 Recorded SARS-CoV-2 [...] 12/10/10 Given [facility]Result [facility]: [id number] 3Result Comment: [id number] 4Admin Note: pt waited 10 mins post inj no adverse reaction noted.j a 5Admin Note: PT WAITED 10 MIN WITH NO ADVERSE REACTION. Medications albuterol 90 mcg/inh inhalation powder 1 puffs, Inhalation, Every 6 hours, PRN Wheezing/Shortness of Breath, # 1 each, 0 Refills, Maintenance, 02/15/24 1:38:00 PM EDT, Powder, [facility]/pharmacy #[id number], Partial fill upon [...] 11:59:00 AM EDT, Route to Pharmacy Electronically, [facility]/pharmacy #[id number], Partial fill upon patient request if the prescription is for a schedule II opioid drug., 168, cm, 02/15/24 13:43:00 EDT, Height Start Date: 03/11/24 Stop Date: 09/07/24 Status: Ordered Quantity: 30.0 Unit: tablet Repeat number: 6 aspirin 81 mg oral delayed release tablet 1 tablet, By Mouth, Daily, # 90 tablet, 1 Refills, Maintenance, 01/25/24 9:53:00 PM EDT, [facility]/pharmacy #[id number], 168, cm, 01/11/24 14:42:00 EDT, [...] 2:32:00 PM EDT, Route to Pharmacy Electronically, [facility]/pharmacy #[id number], Partial fill upon [...] 11:18:00 AM EDT, Route to Pharmacy Electronically, [facility]/pharmacy #0843, Partial fill upon patient request if the prescription is for a schedule II opioid drug., 168, cm, 02/15/24 13:43:00 EDT, Height Start Date: 02/29/24 Stop Date: 03/14/24 Status: Ordered Quantity: 28.0 Unit: capsule Repeat number: 1 D3 50 mcg (2000 intl units) oral capsule 1 capsule, By Mouth, Daily, # 90 capsule, 0 Refills, Maintenance, 12/09/23 2:09:00 PM EDT, [facility]/pharmacy #[id number], 168, cm, 10/27/23 15:34:00 EDT, Height, 93, kg, 01/28/22 14:55:00 EDT, Dry Weight Start Date: 12/09/23 Status: Ordered Quantity: 90.0 Unit: capsule Repeat number: 1 Daily Simone oral tablet 1 tablet, By Mouth, Daily, # 90 tablet, 1 Refills, Maintenance, 03/17/24 9:34:00 AM EDT, [facility]/pharmacy #[id number], 90, 1 tablet By Mouth Daily, 168, cm, 03/17/24 9:26:00 EDT, Height Start Date: 03/17/24 Status: Ordered Quantity: 90.0 Unit: tablet Repeat number: 2 dapagliflozin 10 mg oral tablet 1 tablet = 10 mg, By Mouth, Daily, # 30 tablet, 0 Refills, Maintenance, 01/11/24 2:46:00 PM EDT, Tablet, [facility]/pharmacy #0843, Partial fill upon [...] 0 Refills, Maintenance, 02/15/24 1:39:00 PM EDT, [facility]/pharmacy #[id number], Partial fill upon [...] 02/17/24 7:23:00 AMEDT, Route to Pharmacy Electronically, [facility]/pharmacy #[id number], 168, cm, 02/15/24 [...] 11:25:36 AM EDT, Route to Pharmacy Electronically, [facility]/pharmacy #[id number] Start Date: 01/21/19 Stop Date: 05/21/19 Status: Ordered Quantity: 60.0 Unit: tablet Repeat number: 4 lisinopril 10 mg oral tablet 10 mg, 1, tablet, By Mouth, Daily, # 90 tablet, Refills 0, Tot. Refills 0, Maintenance, 04/19/24 9:02:00 AM EDT, Route to Pharmacy Electronically, [facility]/pharmacy #[id number], 168, cm, 04/15/24 10:23:00 EDT, [...] 0 Refills, Maintenance, 03/17/24 2:24:00 PM EDT, [id number], 168, cm, 03/17/24 9:46:00 EDT, Height Start Date: 03/17/24 Status: Ordered Quantity: 100.0 Unit: tablet Repeat number: 1 nitroglycerin 0.4 mg sublingual tablet See Instructions, DISSOLVE 1 UNDER TONGUE EVERY 5 MINUTES NEEDED FOR CHEST PAIN CALL MD AFTER TAKING 3 TABS IN TOTAL IN A DAY, # 100 tablet, 0 Refills, Maintenance, 10/03/22 3:53:00 PM EDT, [id number], 175, cm, 09/17/22 13:59:00 EDT, Height, 93, kg, 01/28/22 14:55:00 EDT, Dry Weight Start Date: 10/03/22 Status: Ordered Quantity: 100.0 Unit: tablet Repeat number: 1 NovoLOG FlexPen 100 units/mL injectable solution See Instructions, INJECT 0-18 UNITS SUBCUTANEOUSLY WITH MEALS FOR SLIDING SCALES, # 15 Unknown, 2 Refills, 01/12/24 2:36:00 PM EDT, [id number], MAX DAILY DOSE 54 [...] 0 Refills, Maintenance, 02/02/24 3:28:00 PM EDT, [place], [facility], Partial fill upon patient request if the prescription is for a schedule II opioid drug., 2 sprays Nares, Both 2 times a day,PRN:nasal/sinus congestion,Instr:Do not use more than twice a day. Do not use for more than 3 days in a row, 168, cm, 02/02/24 14:20:00 EDT, Height Start Date: 02/02/24 Status: Ordered Quantity: 15.0 Unit: mL Repeat number: 1 Pen [place], 31 G x 5 mm BD Ultra [...] 1 Refills, Maintenance, 05/10/24 12:39:00 PM EST, [id number], rx resent 05/10/24, 168, cm, 04/19/24 [...] Quantity: 90.0 Unit: tablet Repeat number: 1 Problem List Condition Confirmation [...] 524 weeks therapy with sofosbuvir/weight based ribavirin 72006 inferolateral stent bare metal circumflex 7DR Molddoverno [...] Personnel Name: Darius HICKMAN, Jeffrey Lopez Position: [facility] Renal MD Member Role: Lifetime Consulting Physician Address: [address] [place] [address] [address] [facility] [place] [address]- Telecom: Name: Kelly Butler NP Position: [facility] PCO Associate Professional Member Role: PCP Address: [address] [place] [address]- Telecom: Name: Kristin Mckenzie Position: [facility] Outreach Member Role: Lifetime Consulting Physician Name: Fortunato Sin RN Position: [facility] RN Member Role: Primary Care Nurse Name: Nury Watts RN Position: [facility] RN Member Role: Primary Care Nurse Name: Riky Mena NP Position: [facility] Associate Professional Member Role: Lifetime Consulting Provider Address: [address] [facility] [place] [address]- Telecom: Name: Prieto Tobin RN Position: S RN Member Role: Primary Care Nurse Name: Ashleigh Reynoso RN Position: [facility] RN Member Role: Primary Care Nurse Name: Jonn Hui DO Position: [facility] Renal MD Member Role: Lifetime Consulting Physician Address: [address] [facility] [place] [place] [address]- Telecom: Name: Luis Angel Stephen RN Position: [facility] RN Member Role: Primary Care Nurse Name: Brandan Nogueira RN Position: [facility] RN Member Role: Primary Care Nurse Care Team Related Persons Name: CARLOS A BORDEN Name: LEVI BORDEN Insurance Providers Guarantor name: BRITTANY BORDEN Health Plan Information #: 1 Payer: MEDICARE PART B OUTPT Member Number: NA Policy Number: NA Group Number: NA Health Plan Information #: 2 Payer: [place] Member Number: NA Policy Number: NA Group Number: NA
--- OUTSIDE RECORDS SUMMARY | 2024-06-01 12:00 | XMS_ITS | Continuity of Care Document ---
Author Organization [facility] ter Address [address] [place] [id number]- Care Team Providers Care Fish And Wildlife Warden Name Role Phone Aylin HICKMAN, Ben Willis Primary Care Physician Encounter [facility] Date(s): 01/07/21 - 03/13/[address] [address]- Attending Physician: Ben Viera MD Admitting Physician: [...] Refills, Maintenance, 06/26/20 12:19:00 EST, [id number], 175, cm, 06/25/20 16:11:00 EST, Height, 83.6, [...] Maintenance, 01/23/21 11:08:00 EDT, CR Capsule, [facility]/pharmacy #[id number], 175.3, cm, 01/21/21 12:58:00 EDT, Height, 83.6, kg, 04/23/20 17:46:00EDT, Dry Weight Start Date: 01/23/21 Stop Date: 01/18/22 Status: Ordered cholecalciferol 2000 intl units oral capsule 1 capsule = 2,000 International_Units, By Mouth, Daily, # 30 capsule, 5 Refills, Maintenance, 11/02/20 10:48:00 EDT, Capsule, [facility]/pharmacy #[id number], 175, cm, 09/21/20 11:29:00 EDT, Height, 83.6, kg, 04/23/20 17:46:00 EDT, Dry Weight Start Date: 11/02/20 Status: Ordered cloNIDine 0.2 mg oral tablet 0.2 mg, 1, tablet, By Mouth, 2 times a day, # 60 tablet, Refills 5, Tot. Refills 5, Maintenance, 02/28/21 10:13:00 EDT, Route to Pharmacy Electronically, [facility]/pharmacy #[id number], 175.3, cm, 01/21/21 12:58:00 EDT, Height, 83.6, kg, 04/23/20 17:46:00 EDT, . Start Date: 02/28/21 Status: Ordered Daily Simone oral tablet 1 tablet, By Mouth, Daily, # 30 tablet, 5 Refills, Maintenance, 09/19/20 8:25:00 EDT, Tablet, [facility]/pharmacy #[id number], 1 tablet By Mouth Daily,x30 days, 175, cm, 07/20/20 10:29:00 EST, Height, 83.6, kg, 04/23/20 17:46:00 EDT, Dry Weight Start Date: 09/19/20 Stop Date: 03/18/21 Status: Ordered docusate sodium 100 mg oral capsule 1 capsule, By Mouth, 2 times a day, PRN NEEDED FOR CONSTIPATION, # 60 capsule, 5 Refills, Maintenance, 01/22/21 12:45:00 EDT, [id number], 175.3, cm, 01/21/21 12:58:00 EDT, Height, 83.6, kg, 04/23/20 17:46:00 EDT, Dry Weight Start Date: 01/22/21 Status: Ordered folic acid 1 mg oral tablet 1, tablet, By Mouth, Daily, # 30 tablet, Refills 5, Tot. Refills 0, Maintenance, 01/18/21 14:44:00 EDT, Route to Pharmacy Electronically, [id number], 175, cm, 12/24/20 11:20:00 EDT, Height, 83.6, [...] 5 Refills, Maintenance, 02/27/20 15:23:00 EDT, [facility]/pharmacy #[id number], 172, cm, 12/14/19 8:02:00 EDT, Height, 97.8, kg, 08/11/19 5:24:00 EST, Dry Weight Start Date: 02/27/20 Status: Ordered LaMICtal 100 mg oral tablet 100 mg, 1, tablet, By Mouth, 2 times a day, # 60 tablet, Refills 3, Tot. Refills 3, Maintenance, 01/21/19 11:25:36 EDT, Route to Pharmacy Electronically, [id number], [facility]/pharmacy #[id number] Start Date: [...] tablet, 0 Refills, Maintenance, 11/16/20 11:46:00 EDT, [id number], 175, cm, 09/21/20 11:29:00 EDT, Height, 83.6, kg, 04/23/20 17:46:00 EDT, Dry Weight Start Date: 11/16/20 Status: Ordered nicotine 2 mg oral transmucosal lozenge See Instructions, USE 1 LOZENGE UP TO EVERY 1 HOUR NEEDED FOR 10 DAYS, # 162 lozenge, 1 Refills,Acute, [id number], 10, USE 1 LOZENGE UP TO EVERY 1 HOUR NEEDED FOR 10 DAYS, 175.3, cm, 01/21/21 12:58:00 EDT, Height, 83.6, kg, 10/19/20 17:46:... Start Date: 02/04/21 Status: Ordered nitroglycerin [...] 9:13:... Start Date: 02/01/20 Status: Ordered Pen [place], 31 G x 5 mm BD Ultra [...] 1 Refills, Maintenance, 01/08/21 14:43:00 EDT, [facility]/pharmacy#[id number], 175, cm, 12/24/20 11:20:00 EDT, Height, 83.6, [...] 10:41:00 EDT, Route to Pharmacy Electronically, [facility]/pharmacy #[id number], 172, cm, 09/05/19 16:17:00 EST, [...] EST, Tablet, this was previously sent to [facility] pharmacy Start Date: 05/17/19 Stop Date: 05/11/20 Status: Ordered Tresiba FlexTouch 200 units/mL subcutaneous solution = 22 units, Subcutaneous Infusion, Daily, at bedtime, increase 2 units every 3 days until FBS < 120 per PCP max dose 60 units qday, # 3 each, 1 Refills, Maintenance, 12/10/20 11:14:00 EDT, [facility]/pharmacy #[id number], 175, cm, 09/21/20 11:29:00 EDT, [...] Active Glomerulonephritis,mesangial proliferative/fibrillary(Confirmed) 1, 2 Active ASHD; [place] 2012/stent circumfl ex vessel [...] 524 weeks therapy with sofosbuvir/weight based ribavirin 41255 inferolateral stent bare metal circumflex 7DR Marissa [...]
--- OUTSIDE RECORDS SUMMARY | 2024-06-01 12:01 | XMS_ITS | Continuity of Care Document ---
Author Organization [facility] Shawn Lazaro lt Address [address] [place] [address]- Care Team Providers Care Zinc Chloride Operator Name Role Phone Ben Viera MD Primary Care Physician [facility] [place]s): 10/26/19 - 11/26/19 [facility] Nando Escobar Adult [address] [place] [address]- [facility] Attending Physician: Ben Viera MD Allergies, Adverse [...] 10:48:07 EST, Aerosol, Route to Pharmacy Electronically, [id number], [facility]/pharmacy #[id number], 180, cm, 06/17/19 10:36:11 EST, Height Start Date: 06/17/19 Status: Ordered aspirin 81 mg oral tablet 1 tablet = 81 mg, By Mouth, Daily, # 30 tablet, 11 Refills, Maintenance, 09/03/19 14:22:00 EST, Tablet, [facility]/pharmacy #[id number], 180, cm, 08/01/19 10:43:00 EST, [...] Refills, Maintenance, 08/16/19 14:00:00 EST, CR Capsule, [facility]/pharmacy #[id number], 172, cm, 08/11/19 13:32:00 EST, Height, 97.8, kg, 08/11/19 5:24:00 EST, Dry Weight Start Date: 08/16/19 Status: Ordered cholecalciferol 2000 intl units oral capsule 1 capsule = 2,000 International_Units, By Mouth, Daily, # 30 capsule, 5 Refills, Maintenance, 11/02/19 10:15:00 EDT, Capsule, [facility]/pharmacy #[id number], 172, cm, 09/05/19 16:17:00 EST, Height, 97.8, kg, 08/11/19 5:24:00 EST, Dry Weight Start Date: 11/02/19 Status: Ordered cloNIDine 0.2 mg oral tablet 0.2 mg, 1, tablet, By Mouth, 2 times a day, # 60 tablet, Refills 2, Tot. Refills 2, Maintenance, 10/25/19 10:20:00 EDT, Route to Pharmacy Electronically, [facility]/pharmacy #[id number], 172, cm, 09/05/19 16:17:00 EST, Height, 97.8, kg, 08/11/19 5:24:00 EST, Dry W... Start Date: 10/25/19 Status: Ordered Colace sodium 100 mg oral capsule 100 mg, 1, capsule, By Mouth, 2 times a day, PRN, # 60 capsule, Refills 5, Tot. Refills 5, Maintenance, for constipation, 04/25/19 13:50:52 EDT, Route to Pharmacy Electronically, [id number], [facility]/pharmacy #[id number] Start Date: 04/25/19 Status: Ordered Crestor 20 mg oral tablet 1 tablet = 20 mg, By Mouth, Daily, # 90 tablet, 3 Refills, Maintenance, 10/25/19 11:14:00 EDT, Tablet, [facility]/pharmacy #[id number], 172, cm, 09/05/19 16:17:00 EST, Height, 97.8, kg, 08/11/19 5:24:00 EST, Dry Weight Start Date: 10/25/19 Status: Ordered Daily Simone oral tablet 1 tablet, By Mouth, Daily, # 30 tablet, 5 Refills, Maintenance, 09/21/19 10:41:00 EDT, Tablet, [facility]/pharmacy #[id number], 1 tablet By Mouth Daily,x30 days, 172, cm, 09/05/19 16:17:00 EST, Height, 97.8, kg, 08/11/19 5:24:00 EST, Dry Weight Start Date: 09/21/19 Stop Date: 03/19/20 Status: Ordered folic acid 1 mg oral tablet 1 mg, 1, tablet, By Mouth, Daily, # 30 tablet, Refills 11, Tot. Refills 11, Maintenance, 02/14/19 16:39:14 EDT, Route to Pharmacy Electronically, [id number], [facility]/pharmacy #[id number] Start Date: 02/14/19 Status: Ordered [...] 01/21/19 11:25:36 EDT, Route to Pharmacy Electronically, [id number], [facility]/pharmacy #[id number] Start Date: [...] 11/25/19 16:21:00 EDT, [facility] Electronically, [facility] 08/26/19 9:30:00 EST, Route to Pharmacy Electronically, [facility]/pharmacy #[id number], 172, cm, 08/23/19 10:02:00 EST, Height, 9... Start Date: 08/26/19 Status: Ordered nicotine 4 mg oral transmucosal lozenge 1 lozenge = 4 mg, By Mouth, Every hour, # 132 lozenge, 1 Refills, Maintenance, 10/05/19 11:01:00 EDT, [facility]/pharmacy #[id number], 1 lozenge By Mouth Every [...] #0843 Start Date: 01/04/19 Status: Ordered Pen [place], 31 G x 5 mm BD Ultra [...] EST, Tablet, [facility] Start Date: 05/17/19 Stop Date: 05/11/20 Status: Ordered Tresiba FlexTouch 200 units/mL subcutaneous solution = 90 units, Subcutaneous Infusion, Daily, at bedtime, # 15 mL, 5 Refills, Maintenance, 08/04/19 13:13:00 EST, [facility]/pharmacy #[id number], 180, cm, 08/01/19 10:43:00 EST, Height Start Date: 08/04/19 Status: Ordered Problem List Condition Effective Dates Status Health Status Inform ant Acute pancreatitis(Confirmed) 07/16/16 Active Adenomatous colon polyp(Confirmed) Active Bipolar disorder(Confirmed) Active Cervical spondylosis(Confirmed) Active Chronic back pain opiates pe r physiatry(Confirmed) Active Glomerulonephritis,mesangial proliferative/fibrillary(Confirmed) 1, 2 Active Chronic renal impairment, st age 3 (moderate)(Confirmed) Active ASHD; [place] 2012/stent circumfl ex vessel [...] mild to moderate. 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
--- OUTSIDE RECORDS SUMMARY | 2024-06-01 12:01 | XMS_ITS | Continuity of Care Document ---
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) - 08/20/21 Insulin long-term use(Discharge Diagnosis) - 08/20/21 ASHD; [place] circumflex vessel cath;abdelrahman 2019(Discharge Diagnosis) - 08/20/21 Hypertension(Discharge Diagnosis) - 08/20/21 Hyperlipidemia(Discharge Diagnosis) - 08/20/21 Low serum vitamin D(Discharge Diagnosis) - 09/20/21 Chronic renal failure, stage 3b(Discharge Diagnosis) - 09/20/21 Attending Physician: Ben Viera MD Allergies, Adverse [...] Daily, # 90 tablet, 3 Refills, Maintenance, 09/23/21 11:06:00 EDT, [facility]/pharmacy#[id number], 175.2, cm, 09/20/21 8:36:00 EDT, Height, 88.3, kg, 03/12/21 9:16:00 EDT, Dry Weight Start Date: 09/23/21 Status: Ordered Ativan 1 mg oral tablet [...] 5 Refills, Maintenance, 05/15/21 13:02:00 EST, Capsule, [facility]/pharmacy #[id number], 175.2, cm, 03/18/21 10:48:00 EDT, Height, 88.3, kg, 03/12/21 9:16:00 EDT, Dry Weight Start Date: 05/15/21 Status: Ordered cloNIDine 0.2 mg oral tablet 0.2 mg, 1, tablet, By Mouth, 2 times a day, # 60 tablet, Refills 5, Tot. Refills 5, Maintenance, 06/24/21 12:51:00 EST, Route to Pharmacy Electronically, [facility]/pharmacy #[id number], 175.2, cm, 06/07/21 9:51:00 EST, Height, 88.3, kg, 03/12/21 9:16:00 EDT, Dry... Start Date: 06/24/21 Status: Ordered Daily Simone oral tablet 1 tablet, By Mouth, Daily, # 30 tablet, 5 Refills, Maintenance, 07/29/21 13:53:00 EST, Tablet, [facility]/pharmacy #[id number], 1 tablet By Mouth Daily,x30 days, 175.2, cm, 06/07/21 9:51:00 EST, Height, 88.3, kg,03/12/21 9:16:00 EDT, Dry Weight Start Date: 07/29/21 Stop Date: 01/25/22 Status: Ordered docusate sodium 100 mg oral capsule 1 capsule, By Mouth, 2 times a day, PRN NEEDED FOR CONSTIPATION, # 60 capsule, 5 Refills, Maintenance, 06/05/21 15:57:00 EST, [facility]/pharmacy #[id number], 175.2, cm, 05/27/21 11:26:00 EST, Height, 88.3, kg, 03/12/21 9:16:00 EDT, Dry Weight Start Date: 06/05/21 Status: Ordered folic acid 1 mg oral tablet 1, tablet, By Mouth, Daily, # 30 tablet, Refills 5, Tot. Refills 5, Maintenance, 07/25/21 15:59:00 EST, Route to Pharmacy Electronically, [facility]/pharmacy #[id number], 175.2, cm, 06/07/21 9:51:00 EST, [...] tablet, 5 Refills, Maintenance, 06/05/21 15:57:00 EST, [facility]/pharmacy #[id number], 175.2, cm, 05/27/21 11:26:00 EST, Height, 88.3, kg, 03/12/21 9:16:00 EDT, Dry Weight Start Date: 06/05/21 Status: Ordered LaMICtal 100 mg oral tablet 100 mg, 1, tablet, By Mouth, 2 times a day, # 60 tablet, Refills 3, Tot. Refills 3, Maintenance, 01/21/19 11:25:36 EDT, Route to Pharmacy Electronically, [id number], [facility]/pharmacy #[id number] Start [...] 3 Refills, Maintenance, 09/17/21 10:50:00 EDT, Tablet, [facility]/pharmacy #[id number], Partial fill upon patient request if the prescription is for a schedule II opioid drug., 175.2, cm, 07/31/21 11:20:00 EST, Heigh... Start Date: 09/17/21 Status: Ordered Metoprolol Tartrate 50 mg oral tablet See Instructions, TAKE 1 + 1/2 TABLETS BY MOUTH 2 TIMES A DAY, # 270 tablet, 0 Refills, 06/24/21 10:42:00 EST, [facility]/pharmacy #[id number], 175.2, cm, 06/07/21 9:51:00 EST, Height, 88.3, kg, 03/12/21 9:16:00 EDT, Dry Weight Start Date: 06/24/21 Status: Ordered nicotine 2 mg oral transmucosal lozenge See Instructions, USE 1 LOZENGE UP TO EVERY 1 HOUR NEEDED FOR 10 DAYS, # 162 lozenge, 0 Refills,Maintenance, 09/27/21 15:02:00 EDT, [facility]/pharmacy #[id number], 16, USE 1 LOZENGE UP TO EVERY 1 HOUR NEEDED FOR 10 DAYS, 175.2, cm, 09/20/21 8:36:00 EDT, He... Start Date: 09/27/21 Status: Ordered nitroglycerin 0.4 mg sublingual tablet See Instructions, DISSOLVE 1 UNDER TONGUE EVERY 5 MINUTES NEEDED FOR CHEST PAIN INSTR:CALL MD AFTER TAKING 3 TABS IN TOTAL IN A DAY, # 100 tablet, 0 Refills, Maintenance, 08/23/21 8:07:00 EST, [facility]/pharmacy #[id number], 175.2, cm, 07/31/21 11:20:00 EST, H... Start Date: 08/23/21 Status: Ordered NovoLOG FlexPen 100 units/mL injectable solution See Instructions, INJECT 0-18 UNITS SUBCUTANEOUSLY WITH MEALS FOR SLIDING SCALES, # 15 Unknown, 2 Refills, [id number], 175.2, cm, 05/27/21 11:26:00 EST, Height, 88.3, kg, 03/12/21 9:16:00 EDT, Dry Weight Start Date: 06/04/21 Status: Ordered Pen [place], 31 G x 5 mm BD Ultra [...] 5 Refills, Maintenance, 06/10/21 12:32:00 EST, Capsule, [facility]/pharmacy #[id number], 175.2, cm, 06/07/21 9:51:00 EST, Height, 88.3, kg, 03/12/21 9:16:00 EDT, Dry Weight Start Date: 06/10/21 Status: Ordered pregabalin 75 mg oral capsule 1 capsule = 75 mg, By Mouth, 2 times a day, # 60 capsule, 5 Refills, Maintenance, 06/07/21 13:14:00EST, Capsule, [facility]/pharmacy #[id number], 175.2, cm, 06/07/21 9:51:00 EST, Height, 88.3, kg, 03/12/21 9:16:00 EDT, Dry Weight Start Date: 06/07/21 Status: Ordered rosuvastatin 20 mg oral tablet 1 tablet, By Mouth, Daily, # 90 tablet, 1 Refills, Maintenance, 08/15/21 14:24:00 EST, [facility]/pharmacy#[id number], 175.2, cm, 07/31/21 11:20:00 EST, Height, [...] # 9 Unknown, 1 Refills, [id number], 175.2, cm, 07/31/21 11:20:00 EST, Height, 88.3, [...] renal failure, stage 4 (severe)(Confirmed) Active ASHD; [place] 2012/stent circumfl ex vessel cath;abdelrahman 2018(Confirmed) 3 [...] mild to moderate. 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 524 weeks therapy with sofosbuvir/weight based ribavirin 98501 inferolateral stent bare metal circumflex 7DR Marissa sx;Dr Schwartz 8hyperplatic polyp repeat screening in 2025 9repeat colonoscopy in 5 years Diagnosis Diagnosis Type Effective Dates Health Status Clinical Service Informant Type 2 diabetes mellitus with diabetic nephropathy Discharge Diagnosis 08/20/21 Insulin long-term use Discharge Diagnosis 08/20/21 ASHD; [place] 2012/stent circumflex vessel cath;abdelrahman 2018 Discharge Diagnosis 08/20/21 Hypertension Discharge Diagnosis 08/20/21 Hyperlipidemia Discharge Diagnosis 08/20/21 Low serum vitamin D Discharge Diagnosis 09/20/21 Chronic renal failure, stage 3b Discharge Diagnosis 09/20/21 Vital Signs Most recent to oldest [Reference Range]: 1 Height 175.2 cm (09/20/21 8:36 AM) Weight 88.1 kg (09/20/21 8:36 AM) Oxygen Saturation [94-100 %] 99 % (09/20/21 8:36 AM) Pulse Rate [55-90 bpm] 66 bpm (09/20/21 8:36 AM) Body Mass Index [18.5-24.99] 28.7 *H* (09/20/21 8:36 AM) Blood Pressure [90-138/55-84 mm Hg] 126/ 68mm Hg (09/20/21 8:36 AM) Respiratory Rate [16-30 br/min] 16 br/mi n (09/20/21 8:36 AM) Temperature [96.8-100.4 DegF] 97.6 DegF (09/20/21 8:36 AM) Mode of Delivery (Oxygen) Room air (09/20/21 8:36 AM) Blood pressure sites Arm, left (09/20/21 8:36 AM) Temperature Route Oral (09/20/21 8:36 AM) Weight Obtained Via Standing scale (09/20/21 8:36 AM) Social History Social History Type Response Smoking Status Former smoker, quit more than 30 days ago; Interested in cessation: No; Other: quit; Tobacco use times per day: prio 1/2-1 ppd; Total pack years: 38; Started at age: 12; Stopped at age: 63; entered on: 07/20/20 Sex
--- OUTSIDE RECORDS SUMMARY | 2024-06-01 12:01 | XMS_ITS | Continuity of Care Document ---
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 Name Role Phone Carrie Kelly RIVERA Primary Care Physician Encounter [facility] [place] Date(s): 10/09/22 - 11/08/22 [facility] [address] [place] [address]- Attending Physician: Radha Biggs Admitting Physician: AdmRadha kate Referring Physician: Radha Biggs Allergies, Adverse Reactions, Alerts Substance Reaction Severity [...] influenza virus vaccine, inactivated 04/16/10 Give n [id number] 12y+ bivalent booster vax 05/17/22 Recorded SARS-CoV-2 [...] capsule, 5 Refills, Maintenance, 07/18/22 11:59:00 EST, [facility]/pharmacy #[id number], 175, cm, 07/17/22 10:33:00 EST, Height, 93, kg, 01/28/22 14:55:00 EDT, Dry Weight Start Date: 07/18/22 Status: Ordered Flonase 50 mcg/inh nasal spray 1 sprays, Nares, Both, 2 times a day, # 16 Gm, 0 Refills, Maintenance, 09/05/22 9:15:00 EST, [place],[facility]/pharmacy #[id number], Partial fill upon patient request if the prescription is for a schedule II opioid drug., 1 sprays Nares, Both 2 times a day, 175, c... Start Date: 09/05/22 Status: Ordered folic acid 1 mg oral tablet 1, tablet, By Mouth, Daily, # 30 tablet, Refills 5, Tot. Refills 5, Maintenance, 08/15/22 10:27:00 EST, Route to Pharmacy Electronically, [facility]/pharmacy #[id number], 175, cm, 07/17/22 10:33:00 EST, Height, [...] 01/21/19 11:25:36 EDT, Route to Pharmacy Electronically, [id number], [facility]/pharmacy #[id number] Start Date: 01/21/19 Stop Date: 05/21/19 Status: Ordered lisinopril 40 mg oral tablet 1 tablet, By Mouth, Daily, # 90 tablet, 0 Refills, Maintenance, 10/24/22 10:11:00 EDT, [facility]/pharmacy#[id number], 175, cm, 10/09/22 16:51:00 EDT, Height, 93, kg, 01/28/22 14:55:00 EDT, Dry Weight Start Date: 10/24/22 Status: Ordered Metoprolol Tartrate 50 mg oral tablet 1.5 tablet, By Mouth, 2 times a day, # 270 tablet, 1 Refills, Maintenance, 09/01/22 13:28:00 EST, [id number], 175, cm, 07/17/22 10:33:00 EST, Height, 93, kg, 01/28/22 14:55:00 EDT, Dry Weight Start Date: 09/01/22 Status: Ordered Nicotine 7 mg/24 hour patch 1 patch, Topically, Daily, # 30 patch, 1 Refills, Maintenance, 09/26/22 7:49:00 EDT, Patch, [facility]/pharmacy #[id number], Partial [...] 15 Unknown, 2 Refills, 11/07/22 0:09:00 EDT, [facility]/pharmacy #[id number], 175, cm, 10/09/22 16:51:00 EDT, Height, 93, kg, 01/28/22 14:55:00 EDT, Dry Weight Start Date: 11/07/22 Status: Ordered Pen [place], 31 G x 5 mm BD Ultra [...] capsule, 2 Refills, Maintenance, 08/07/22 12:55:00EST, Capsule, [facility]/pharmacy #[id number], 175, cm, 07/17/22 10:33:00 EST, Height, 93, kg, 01/28/22 14:55:00EDT, Dry Weight Start Date: 08/07/22 Status: Ordered rosuvastatin 20 mg oral tablet 1 tablet, By Mouth, Daily, # 90 tablet, 1 Refills, Maintenance, 05/21/22 13:33:00 EST, [id number], 175, cm, 05/09/22 11:08:00 EDT, Height, 93, kg, 01/28/22 14:55:00 EDT, Dry Weight Start Date: 05/21/22 Status: Ordered Senna 8.6 mg oral tablet 1 or 2 tablets, By Mouth, Daily at bedtime, PRN, # 60 tablet, Refills 5, Tot. Refills 5, Maintenance, Constipation, 11/03/22 15:04:00 EDT, Route to Pharmacy Electronically, [facility]/pharmacy #[id number] Tablet,Partial fill upon patient request if [...] mild to moderate. 3MI 2012 circumflex stent 2012/[place] 4secondary to hep C 524 weeks therapy with sofosbuvir/weight based ribavirin 42105 inferolateral stent bare metal circumflex 7DR Molddoverno sx;Dr Schwartz 8hyperplatic polyp repeat screening in 2025 9repeat colonoscopy in 5 years Vital Signs Most recent to oldest [Reference Range]: 1 Height 176 cm (09/20/13 5:25 PM) Weight 92.7 kg (09/20/13 5:25 PM) Pulse Rate [55-90 bpm] 68 bpm (09/20/13 5:25 PM) Body Mass Index [18.50-24.99] 29.93 *H* (09/20/13 5:25 PM) Blood Pressure [90-138/55-84 mm Hg] 142/ 84mm Hg *H* (09/20/13 5:25 PM) Blood pressure sites Arm, left (09/20/13 5:25 PM) Weight Obtained Via Standing scale (09/20/13 5:25 PM) Social History Social History Type Response Smoking Status Former smoker, quit more than 30 days ago; Interested in cessation: No; Other: quit; Tobacco use times per day: prio 1/2-1 ppd; Total pack years: 38; Started at age: 12; Stopped at age: 63; entered on: 07/20/20 Sex Note * Event Display: Phase 2 Cardiac Rehab Plan of Care Authored Date: [id number] * Darcy Richards: PERFORM, SIGN, VERIFY Event Display: Patient Education/Instruction Authored Date: [id number] [facility] Clinical Summary Person Information Name BRITTANY BORDEN Age 58 Years 1955 12:00 AM PCP Dalton Bentley MD PCP Reason for Visit: Allergy Info: NKA Vital Signs Height 176 cm Weight 92.7 kg BMI 29.93 Blood Pressure 142 mm Hg/84 mm Hg Temperature Pulse Rate 68 bpm Respiratory Rate 02 Sat Mode of Delivery / Medication Information Aspirin (aspirin 81 mg oral enteric coated capsule) 1 capsule, Oral, Daily, 120 days, Refills: 2 BusPIRone (buspirone 15 mg oral tablet) 1 tablet, Oral, twice a day, pt states he stopped taking this medication by himself, pls discuss with your pcp and see if you still need to take it or not., 7 days, Refills: 0 Carbamazepine (Tegretol XR) , Oral, twice a day, Refills: 0 Clopidogrel (clopidogrel 75 mg oral tablet) 1 tablet, Oral, Daily, 30 days, Refills: 8 GlipiZIDE (glipizide 2.5 mg oral tablet, extended release) 1 tablet, Oral, Daily, with breakfast, Refills: 1 Aztec (lithium 450 mg oral tablet, extended release) 1 tablet, Oral, twice a day, Refills: 0 Metoprolol (metoprolol 50 mg oral tablet) 1 tablet, Oral, twice a day, 30 days, Refills: 11 Multivitamin , Oral, Daily, Refills: 0 Nicotine (nicotine 21 mg/24 hr transdermal film, extended release) 1 patch, Topically, Daily, 30 days, Refills: 1 Nicotine (nicotine 4 mg oral transmucosal lozenge) 1 lozenge, Transmucosal, every hour, 10 days, AsNeeded, smoking cessation, Refills: 1 Quetiapine (Seroquel 400 mg oral tablet) 1 tablet, Oral, Daily, Refills: 0 Risperidone (Risperdal Tablet) , Oral, twice a day Rosuvastatin (rosuvastatin 10 mg oral tablet) 1 tablet, Oral, Daily at Bedtime, 30 days, Refills: 11 Problem List Date Problem 01/27/10 Hypertension 01/27/10 Bipolar disorder 01/27/10 Back pain 01/27/10 Alcohol abuse 01/27/10 Hepatitis C If the following labs have been performed in the last year, the most recent result is displayed below. Diagnostic Results Lab Result Value Date Lead Hemoglobin A1C 7.2 03/14/13 LDL LDL CHOLESTEROL NOT CALCULATED WHEN TRIGLYCERIDES ARE GREATER THAN OR 09/14/13 HDL 37 09/14/13 Triglycerides 626 09/14/13 Total Cholesterol 224 09/14/13 Disclaimer: The information provided is of a [...] different or additional instructions may be required. If you have questions, please consult with your primary care provider or pharmacist, as appropriate. This information is not intended to serve as substitution for assessment and evaluation by a qualified health care provider. If you do not have a primary care provider, you may find a [facility] provider by calling [facility] at [phone]. Patient Education Information Follow-up Details: Patient Education Material: Please follow instructions discussed with your provider during this visit as well as any education documents you were given today. Cardiology Outpatient Note * Jeffrey Leon MD: SIGN Jeffrey Leon MD: SIGN, SIGN, VERIFY Event Display: Cardiology Note Office Authored Date: [id number] Patient: BRITTANY BORDEN Age: 58 years Sex: Male : 1955 Associated Diagnoses: None Author: Elisa Em 08/03/2014 To Whom it May Concern Pt may stop his plavix for his tooth extraction, he should continue his aspirin uninterrupted. He can resume his plavix once the risk of bleeding is resolved. Report sent to all consultants: Jeffrey Leon MD. Patient Care team information Care Team Personnel Name: Jeffrey Mccoy MD Position: [facility] Renal MD Member Role: Lifetime Consulting Physician Address: Address: [address] [place] [address] [facility] [place], [place] [address] Name: Kelly Butler NP Position: [facility] PCO Associate Professional Member Role: PCP Address: Address: [address] [place] [address]- Name: Kristin Mckenzie Position: [facility] Outreach Member Role: Lifetime Consulting Physician Name: Prieto Tobin RN Position: [facility] RN Member Role: Primary Care Nurse Name: Jonn uHi DO Position: [facility] Renal MD Member Role: Lifetime Consulting Physician Address: Address: [address] [place], [place] [address] [place], [place] [address] Name: Luis Angel Stephen RN Position: [facility] RN Member Role: Primary Care Nurse Name: Tamie Baird RN Position: [facility] RN Member Role: Primary Care Nurse Care Team Related Persons Name: CARLOS A BORDEN Address: home [address] [place] [address] Name: LEVI BORDEN Address: [place] [address] [place] [address]
--- OUTSIDE RECORDS SUMMARY | 2024-06-01 12:01 | XMS_ITS | Continuity of Care Document ---
Author Organization [facility] Lazaro lt Address [address] [place] [address]- Care Team Providers Care Materials Specialist Name Role Phone Aylin HICKMAN, Ben Willis Primary Care Physician [phone] [place] [facility] [place] 08[place]26/19 [facility] [address] [place] [address]- [facility] Attending Physician: Admtr, Ar8 Admitting Physician: Admtr, [...] 10:48:07 EST, Aeros[place], Route to Pharmacy Electronically, [id number], [facility]/pharmacy #[id number], 180, cm, 06/17/19 10:36:11 EST, Height Start Date: 06/17/19 Status: Ordered aspirin 81 mg oral tablet 1 tablet = 81 mg, By Mouth, Daily, # 30 tablet, 11 Refills, Maintenance, 09/03/19 14:22:00 EST, Tablet, [facility]/pharmacy #[id number], 180, cm, 08/01/19 10:43:00 EST, Height Start Date: 09/03/19 Stop Date: 08/28/20 Status: Ordered aspirin 81 mg oral tablet 1 tablet = 81 mg, By Mouth, Daily, for 30 days, # 30 tablet, 11 Refills, Hard Stop 09/03/19 14:22:51 EST, 09/08/18 14:22:51 EST, Tablet, [facility]/pharmacy #[id number] Start Date: 09/08/18 Stop Date: 09/03/19 [...] Refills, Maintenance, 08/16/19 14:00:00 EST, CR Capsule, [facility]/pharmacy #[id number], 172, cm, 08/11/19 13:32:00 EST, [...] 05/09/19 9:31:26 EST, Route to Pharmacy Electronically, [id number], [facility]/pharmacy #[id number] Start Date: 05/09/19 Status: Ordered Colace sodium 100 mg oral capsule 100 mg, 1, capsule, By Mouth, 2 times a day, PRN, # 60 capsule, Refills 5, Tot. Refills 5, Maintenance, for constipation, 04/25/19 13:50:52 EDT, Route to Pharmacy Electronically, [id number], [facility]/pharmacy #[id number] Start Date: 04/25/19 Status: Ordered [...] 02/14/19 16:39:14 EDT, Route to Pharmacy Electronically, [id number], [facility]/pharmacy #[id number] Start Date: 02/14/19 Status: Ordered [...] 01/21/19 11:25:36 EDT, Route to Pharmacy Electronically, [id number], [facility]/pharmacy #[id number] Start Date: 01/21/19 Stop [...] 06/21/19 14:10:15 EST, Route to Pharmacy Electronically, [facility]/pharmacy #[id number], 180, cm, 06/17/19 10:36:11 EST, Height Start Date: 06/21/19 Status: Ordered metoprolol 50 mg oral tablet 75 mg, 1.5, tablet, By Mouth, 2 times a day, stop metoprolol 50 mg twice daily, # 180 tablet, Refills 2, Tot. Refills 2, Maintenance, 08/26/19 9:30:00 EST, Route to Pharmacy Electronically, [facility]/pharmacy #[id number], 172, cm, 08/23/19 10:02:00 EST, Height, 9... Start Date: 08/26/19 Status: Ordered nicotine 2 mg oral transmucosal lozenge 1 lozenge = 2 mg, By Mouth, Every 2 hours, SUCK UP TO Q1 HOURS 10 DAILY, # 144 lozenge, 2 Refills, Maintenance, 07/15/19 12:34:00 EST, [facility]/pharmacy #[id number], 1 lozenge By Mouth [...] PAIN CALL 911 IF PAIN NOT RELIEVED, [facility]/pharmacy #[id number] Start Date: 02/17/19 Status: Ordered NovoLOG FlexPen 100 units/mL subcutaneous solution See Instructions, # 15 Unknown, Refills 5 Tot. Refills 5, INJECT 0-18 UNITS SUBCUTANEOUSLY WITH MEALS FOR SLIDING SCALES, [facility]/pharmacy #[id number] Start Date: 01/04/19 Status: Ordered Pen [place], 31 G x 5 mm BD Ultra [...] 01/21/19 11:26:23 EDT, Route to Pharmacy Electronically, [id number], [facility]/pharmacy #[id number] Start Date: 01/21/19 Status: Ordered [...] EST, Tablet, this was previously sent to [facility] pharmacy Start Date: 05/17/19 Stop Date: 05/11/20 Status: Ordered Tresiba FlexTouch 200 units/mL subcutaneous solution = 90 units, Subcutaneous Infusion, Daily, at bedtime, # 15 mL, 5 Refills, Maintenance, 08/04/19 13:13:00 EST, [facility]/pharmacy #[id number], 180, cm, 08/01/19 10:43:00 [...] renal insufficiency, stage III (moderate)(Confirmed) Active ASHD; [place] 2012/stent circumfl ex vessel [...] mild to moderate. 3MI 2012 circumflex stent 2012/[place] 4secondary to hep C 524 weeks therapy with sofosbuvir/weight based ribavirin 14014 inferolateral stent bare metal circumflex 7DR Marissa saucedax;Dr Schwartz 8repeat colonoscopy in 5 years Procedures [...]
--- OUTSIDE RECORDS SUMMARY | 2024-06-01 12:01 | XMS_ITS | Continuity of Care Document ---
Author Organization [facility] Address [address] [place] [address]- Care Team Providers Care Urogynaecologist Name Role Phone Carrie Kelly RIVERA Primary Care Physician [phone] [place] [facility] [place] 04/10/24 [facility] [address] [place] [address]- Attending Physician: Larissa Schaeffer NP Admitting Physician: Larissa Schaeffer NP Allergies, Adverse Reactions, Alerts Substance Reaction Severity Status Bee Stings Active Immunizations Given and Recorded Vaccine Date Status Refusal Reason SARS-CoV-2(COVID-19)mRNA-LNP vac([id number]) 12/31/23 Recorded SARS-CoV-2(COVID-19)mRNA-LNP vac(pfq910) 05/08/23 Recorded tetanus/diphtheria/pertussis, acel(Tdap) 10/15/23 Recorded tetanus/diphtheria/pertussis, [...] 02/03/23 Recorded zoster vaccine, inactivated 08/09/19 Recorded [id number] 12y+ bivalent booster vax 05/17/22 Recorded SARS-CoV-2 [...] adult vaccine 4 12/10/10 Given 1Result Comment: [id number] 2Result Comment: [id number] 3Admin Note: pt waited 10 mins post inj no adverse reaction noted.j a 4Admin Note: PT WAITED 10 MIN WITH NO ADVERSE REACTION. Medications albuterol 90 mcg/inh inhalation powder 1 puffs, Inhalation, Every 6 hours, PRN Wheezing/Shortness of Breath, # 1 each, 0 Refills, Maintenance, 02/15/24 13:38:00 EDT, Powder, [facility]/pharmacy #[id number], Partial fill upon patient request if the prescription is for a schedule II opioid drug., 1 puffs... Start Date: 02/15/24 Status: Ordered amLODIPine 10 mg oral tablet 10 mg, By Mouth, Daily, # 30 tablet, Refills 5, Tot. Refills 5, Maintenance, 03/11/24 11:59:00 EDT,Route to Pharmacy Electronically, [facility]/pharmacy #[id number], Partial fill upon patient request if the prescription is for a schedule II opioid drug., 168, cm,... Start Date: 03/11/24 Stop Date: 09/07/24 Status: Ordered aspirin 81 mg oral delayed release tablet 1 tablet, By Mouth, Daily, # 90 tablet, 1 Refills, Maintenance, 01/25/24 21:53:00 EDT, [facility]/pharmacy#0843, 168, cm, 01/11/24 14:42:00 EDT, Height, 93, [...] EDT, Route to Pharmacy Electronically, [facility]/pharmacy #[id number], Partial fill upon patient request if the prescriptio... Start Date: 02/29/24 Stop Date: 03/14/24 Status: Ordered D3 50 mcg (2000 intl units) oral capsule 1 capsule, By Mouth, Daily, # 90 capsule, 0 Refills, Maintenance, 12/09/23 14:09:00 EDT, [facility]/pharmacy #[id number], 168, cm, 10/27/23 15:34:00 EDT, Height, [...] Maintenance, 01/11/24 14:46:00 EDT, Tablet, [facility]/pharmacy #[id number], Partial fill upon patient request if [...] EDT, Route to Pharmacy Electronically, [facility]/pharmacy #[id number], 168, cm, 02/15/24 13:43:00 EDT, Height [...] 01/21/19 11:25:36 EDT, Route to Pharmacy Electronically, [id number], [facility]/pharmacy #[id number] Start Date: 01/21/19 Stop Date: 05/21/19 Status: Ordered lisinopril 10 mg oral tablet 10 mg, 1, tablet, By Mouth, Daily, for 30 days, DECREASED STRENGTH, # 30 tablet, Refills 0, Tot. Refills 0, Acute 04/16/24 9:47:00 EDT, 03/17/24 9:47:00 EDT, [id number] 168, cm, 03/17/24 9:46:00 EDT, Height Start Date: 03/17/24 Stop Date: 04/16/24 Status: Ordered methylphenidate 5 mg oral tablet TAKE 1 TABLET BY MOUTH THREE TIMES A DAY Start Date: 01/11/24 Status: Ordered nitroglycerin 0.4 mg sublingual tablet See Instructions, DISSOLVE 1 UNDER TONGUE EVERY 5 MINUTES NEEDED FOR CHEST PAIN CALL MD AFTER TAKING 3 TABS IN TOTAL IN A DAY, # 100 tablet, 0 Refills, Maintenance, 03/17/24 14:24:00 EDT, [facility]/pharmacy #[id number], 168, cm, 03/17/24 9:46:00 EDT, Height Start Date: 03/17/24 Status: Ordered nitroglycerin 0.4 mg sublingual tablet See Instructions, DISSOLVE 1 UNDER TONGUE EVERY 5 MINUTES NEEDED FOR CHEST PAIN CALL MD AFTER TAKING 3 TABS IN TOTAL IN A DAY, # 100 tablet, 0 Refills, Maintenance, 10/03/22 15:53:00 EDT, [facility]/pharmacy #[id number], 175, cm, 09/17/22 13:59:00 EDT, Height,... Start Date: 10/03/22 Status: Ordered NovoLOG FlexPen 100 units/mL injectable solution See Instructions, INJECT 0-18 UNITS SUBCUTANEOUSLY WITH MEALS FOR SLIDING SCALES, # 15 Unknown, 2 Refills, 01/12/24 14:36:00 EDT, [facility]/pharmacy #[id number], MAX DAILY DOSE 54 UNITS, 168, [...] mL, 0 Refills, Maintenance, 02/02/24 15:28:00 EDT, [place], [facility]acy [id number], Partial fill upon patient... Start Date: 02/02/24 Status: Ordered Pen [place], 31 G x 5 mm BD Ultra [...] Refills, Maintenance, 02/04/24 16:39:00 EDT, [id number], 168, cm, 02/03/24 10:41:00 EDT, Height Start [...] mild to moderate. 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 2012/CT 4secondary to hep C 524 weeks therapy with sofosbuvir/weight based ribavirin 34674 inferolateral stent bare metal circumflex 7DR Molddoverno [...] Team Personnel Name: Jeffrey Mccoy MD Position: [facility] Renal MD Member Role: Lifetime Consulting Physician Address: Address: [address] [place] [address] [address] [facility] [place], [place] [address] Name: Kelly Butler NP Position: [facility] PCO Associate Professional Member Role: PCP Address: Address: [address] [place] [address]- Name: Kristin Mckenzie Position: [facility] Outreach Member Role: Lifetime Consulting Physician Name: Fortunato Sin RN Position: [facility] RN Member Role: Primary Care Nurse Name: Nury Watts RN Position: [facility] RN Member Role: Primary Care Nurse Name: Antonia Mena NP Position: [facility] Associate Professional Member Role: Lifetime Consulting Provider Address: Address: [address] [place], [place] [address] [place], [place] [address] Name: Prieto Tobin RN Position: [facility] RN Member Role: Primary Care Nurse Name: Ashleigh Reynoso RN Position: S RN Member Role: Primary Care Nurse Name: Jonn Hui DO Position: [facility] Renal MD Member Role: Lifetime Consulting Physician Address: Address: [address] [place], [place] [address] [place], [place] [address] Name: Luis Angel Stephen RN Position: S RN Member Role: Primary Care Nurse Name: Brandan Nogueira RN Position: S RN Member Role: Primary Care Nurse Care Team Related Persons Name: CARLOS A BORDEN Address: [address] [place] [address] Name: LEVI BORDEN Address: [address] [place] [address]
--- OUTSIDE RECORDS SUMMARY | 2024-06-01 12:01 | XMS_ITS | Continuity of Care Document ---
Author Organization [facility] Shawn Lazaro lt Address [address] [place] [address]- Care Team Providers Care Reel Repairer Name Role Phone Carrie Kelly RIVERA Primary Care Physician [phone] Encounter [facility] [place] Date(s): 06/05/23 - 07/05/23 [facility] Adult [address] [place] [address]- Allergies, Adverse Reactions, Alerts Substance Reaction Severity Status Bee Stings Active Immunizations Given and Recorded Vaccine Date Status Refusal Reason SARS-CoV-2(COVID-19)mRNA-LNP vac(cpl023) 05/08/23 Recorded pneumococcal 20-valent conjugate vaccine 1 [...] 02/03/23 Recorded zoster vaccine, inactivated 08/09/19 Recorded [id number] 12y+ bivalent booster vax 05/17/22 Recorded SARS-CoV-2 [...] adult vaccine 4 12/10/10 Given 1Result Comment: [id number] 2Result Comment: [id number] 3Admin Note: pt waited 10 mins post inj no adverse reaction noted.j a 4Admin Note: PT WAITED 10 MIN WITH NO ADVERSE REACTION. MH Medications aspirin 81 mg oral delayed release tablet 1 tablet, By Mouth, Daily, # 90 tablet, 1 Refills, Maintenance, 06/02/23 11:42:00 EST, [facility]/pharm[facility]#0843, 168, cm, 05/01/23 14:45:00 EDT, Height, 93, [...] capsule, 1 Refills, Maintenance, 06/30/23 7:20:00 EST, [facility], 168, cm, 05/01/23 14:45:00 EDT, Height, 93, kg, 01/28/22 14:55:00 EDT, Dry Weight Start Date: 06/30/23 Status: Ordered Daily Simone oral tablet 1 tablet, By Mouth, Daily, # 90 tablet, 1 Refills, Maintenance, 06/30/23 7:20:00 EST, [facility], 90, TAKE 1 TABLET BY MOUTH EVERY [...] Refills, Maintenance, 06/26/23 6:50:00 EST, [facility], 168, cm, 05/01/23 14:45:00 EDT, Height, 93, kg, 01/28/22 14:55:00 EDT, Dry Weight Start Date: 06/26/23 Status: Ordered folic acid 1 mg oral tablet 1, tablet, By Mouth, Daily, # 90 tablet, Refills 1, Tot. Refills 1, Maintenance, 07/03/23 10:01:00 EST, Route to Pharmacy Electronically, [facility]/pharmacy #[id number], 168, cm, 05/01/23 14:45:00 EDT, [...] 01/21/19 11:25:36 EDT, Route to Pharmacy Electronically, [id number], [facility]/pharmacy #[id number] Start Date: 01/21/19 Stop Date: 05/21/19 Status: Ordered lamotrigine 100 mg oral tablet Refills 0, Maintenance, 05/01/23 15:28:00 EDT, Partial fill upon patient request if the prescription is for a schedule II opioid drug. Start Date: 05/01/23 Status: Ordered lisinopril 40 mg oral tablet 1 tablet, By Mouth, Daily, # 90 tablet, 0 Refills, Maintenance, 04/21/23 10:51:00 EDT, [facility], 175, cm, 10/09/22 16:51:00 EDT, Height, 93, [...] tablet, 1 Refills, Maintenance, 02/20/23 7:15:00 EDT, [facility], 175, cm, 10/09/22 16:51:00 EDT, Height, 93, [...] Weight Start Date: 11/07/22 Status: Ordered Pen [place], 31 G x 5 mm BD Ultra [...] capsule, 2 Refills, Maintenance, 07/03/23 9:40:00 EST, [facility], Partial fill upon patient request if the prescription is for a schedule II opioid drug., 168, cm, 05/01/23 14:45:00 EDT, Height, 93, kg... Start Date: 07/03/23 Status: Ordered rosuvastatin 20 mg oral tablet 1 tablet, By Mouth, Daily, # 90 tablet, 1 Refills, Maintenance, 03/29/23 14:43:00 EDT, [facility], 175, cm, 10/09/22 16:51:00 EDT, Height, 93, [...] 4, GFR 15-29 ml/min Confirmed Active ASHD; [place] 2012/stent circumflex vessel cath;abdelrahman 2018 3 Confirmed [...] 524 weeks therapy with sofosbuvir/weight based ribavirin 87464 inferolateral stent bare metal circumflex 7DR Molddoverno [...] Role: Lifetime Consulting Physician Address: Address: [address] [facility] [place] [address]- Name: Kelly Butler NP Position: [facility] PCO Associate Professional Member Role: PCP Address: Address: [address] [place] [address]- Name: Kristin Mckenzie Position: [facility] Outreach Member Role: Lifetime Consulting Physician Name: Prieto Tobin RN Position: [facility] RN Member Role: Primary Care Nurse Name: Jonn Hui DO Position: [facility] Renal MD Member Role: Lifetime Consulting Physician Address: Address: [address] [place], [place] [address]E [facility] [place] [address]- Name: Luis Angel Stephen RN Position: [facility] RN Member Role: Primary Care Nurse Care Team Related Persons Name: CARLOS A BORDEN Address: home [address] [place] [address] Name: LEVI BORDEN Address: home [address] [place] [address]
--- OUTSIDE RECORDS SUMMARY | 2024-06-01 12:01 | XMS_ITS | Continuity of Care Document ---
Author Organization [facility] Shawn Lazaro lt Address [address] [place] [address]- Care Team Providers Care Shoulder Boner Name Role Phone Aylin HICKMAN, Ben Willis Primary Care Physician [phone] Encounter [facility] Date(s): 11/29/21 - 12/29/21 [facility] Adult [address] [place] [address]- Allergies, Adverse Reactions, Alerts Substance Reaction Severity [...] 06/24/21 12:51:00 EST, Route to Pharmacy Electronically, [facility]/pharmacy #[id number], 175.2, cm, 06/07/21 9:51:00 EST, Height, 88.3, kg, 03/12/21 9:16:00 EDT, Dry... Start Date: 06/24/21 Status: Ordered Daily Simone oral tablet 1 tablet, By Mouth, Daily, # 30 tablet, 5 Refills, Maintenance, 07/29/21 13:53:00 EST, Tablet, [facility]/pharmacy #0843, 1 tablet By Mouth Daily,x30 days, 175.2, cm, 06/07/21 9:51:00 EST, Height, 88.3, kg,03/12/21 9:16:00 EDT, Dry Weight Start Date: 07/29/21 Stop Date: 01/25/22 Status: Ordered docusate sodium 100 mg oral capsule 1 capsule, By Mouth, 2 times a day, PRN NEEDED FOR CONSTIPATION, # 60 capsule, 5 Refills, Maintenance, 06/05/21 15:57:00 EST, [facility]/pharmacy #0843, 175.2, cm, 05/27/21 11:26:00 EST, Height, 88.3, kg, 03/12/21 9:16:00 EDT, Dry Weight Start Date: 06/05/21 Status: Ordered folic acid 1 mg oral tablet 1, tablet, By Mouth, Daily, # 30 tablet, Refills 5, Tot. Refills 5, Maintenance, 07/25/21 15:59:00 EST, Route to Pharmacy Electronically, [facility]/pharmacy #0843, 175.2, cm, 06/07/21 9:51:00 [...] tablet, 5 Refills, Maintenance, 06/05/21 15:57:00 EST, [facility]/pharmacy #0843, 175.2, cm, 05/27/21 11:26:00 EST, Height, 88.3, kg, 03/12/21 9:16:00 EDT, Dry Weight Start Date: 06/05/21 Status: Ordered LaMICtal 100 mg oral tablet 100 mg, 1, tablet, By Mouth, 2 times a day, # 60 tablet, Refills 3, Tot. Refills 3, Maintenance, 01/21/19 11:25:36 EDT, Route to Pharmacy Electronically, [id number], [facility]/pharmacy #0843 Start Date: 01/21/19 Stop Date: 05/21/19 Status: Ordered lisinopril 40 mg oral tablet 1 tablet = 40 mg, By Mouth, Daily, # 30 tablet, 3 Refills, Maintenance, 09/17/21 10:50:00 EDT, Tablet, [facility]/pharmacy #0843, Partial fill upon patient request if the prescription is for a schedule II opioid drug., 175.2, cm, 07/31/21 11:20:00 ESTReji... Start Date: 09/17/21 Status: Ordered Metoprolol Tartrate 50 mg oral tablet 1.5 tablet, By Mouth, 2 times a day, # 270 tablet, 0 Refills, [facility] STORE 72488, 175.2, cm, 11/15/21 11:18:00 EDT, Height, 88.3, [...] # 15 Unknown, 2 Refills, [facility], 175.2, cm, 05/27/21 11:26:00 EST, Height, 88.3, kg, 03/12/21 9:16:00 EDT, Dry Weight Start Date: 06/04/21 Status: Ordered Pen [place], 31 G x 5 mm BD Ultra [...] 5 Refills, Maintenance, 06/10/21 12:32:00 EST, Capsule, [facility]/pharmacy #0843, 175.2, cm, 06/07/21 9:51:00 EST, Height, 88.3, kg, 03/12/21 9:16:00 EDT, Dry Weight Start Date: 06/10/21 Status: Ordered rosuvastatin 20 mg oral tablet 1 tablet, By Mouth, Daily, # 90 tablet, 1 Refills, Maintenance, 08/15/21 14:24:00 EST, [facility]/pharmacy#0843, 175.2, cm, 07/31/21 11:20:00 EST, [...] 3 Refills, Maintenance, 12/18/21 14:33:00 EDT, Suspension, [facility]/pharmacy #0843, 1 drops Eyes, Both [...] # 9 Unknown, 1 Refills, [facility], 175.2, cm, 07/31/21 11:20:00 EST, Height, 88.3, [...] # 30 capsule, 5 Refills, [facility], 175.2, cm, 11/15/21 11:18:00 EDT, Height, 88.3, kg, 03/12/21 9:16:00 EDT, Dry Weight Start Date: 11/17/21 Status: Ordered Problem List Condition Effective Dates Status Health Status Inform ant Bipolar disorder(Confirmed) Active Cervical spondylosis(Confirmed) Active Chronic back pain DJD(Confirmed) Active Glomerulonephritis,mesangial proliferative/fibrillary(Confirmed) 1, 2 Active Chronic renal failure, stage 4 (severe)(Confirmed) Active ASHD; [place] 2012/stent circumfl ex vessel [...] mild to moderate. 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 2013/[place] 4secondary to hep C 524 weeks therapy with sofosbuvir/weight based ribavirin 43247 inferolateral stent bare metal circumflex 7DR Marissa [...]
--- OUTSIDE RECORDS SUMMARY | 2024-06-01 12:01 | XMS_ITS | Continuity of Care Document ---
Author Organization [facility] Shawn Lazaro lt Address [address] [place] [address]- Care Team Providers Care Casing In Line Feeder Name Role Phone Aylin HICKMAN, Ben Willis Primary Care Physician Encounter [facility] Date(s): 06/16/19 - 07/16/19 [facility] Shawn Adult [address] [place] [address]- [facility] Attending Physician: Tino HICKMAN, Manohar Grimaldo Allergies, [...] 10:48:07 EST, Aerosol, Route to Pharmacy Electronically, [id number], [id number], 180, cm, 06/17/19 10:36:11 EST, [...] 05/09/19 9:31:26 EST, Route to Pharmacy Electronically, [id number], [facility]/pharmacy #[id number] Start Date: 05/09/19 Status: Ordered Colace sodium 100 mg oral capsule 100 mg, 1, capsule, By Mouth, 2 times a day, PRN, # 60 capsule, Refills 5, Tot. Refills 5, Maintenance, for constipation, 04/25/19 13:50:52 EDT, Route to Pharmacy Electronically, [id number], [facility]/pharmacy #0843 [...] 02/14/19 16:39:14 EDT, Route to Pharmacy Electronically, [id number], [facility]/pharmacy #0843 [...] 01/21/19 11:25:36 EDT, Route to Pharmacy Electronically, [id number], [facility]/pharmacy #0843 [...] 06/21/19 14:10:15 EST, Route to Pharmacy Electronically, [facility]/pharmacy #[id number], 180, cm, 06/17/19 10:36:11 EST, Height Start Date: 06/21/19 Status: Ordered metoprolol 50 mg oral tablet 75 mg, 1.5, tablet, By Mouth, 2 times a day, stop metoprolol 50 mg twice daily, # 180 tablet, Refills 2, Tot. Refills 2, Maintenance, 02/28/19 16:02:16 EDT, Route to Pharmacy Electronically, [id number], [facility]/pharmacy #0843 Start Date: 02/28/19 Status: Ordered nicotine 2 mg oral transmucosal lozenge 1 lozenge = 2 mg, By Mouth, Every 2 hours, SUCK UP TO Q1 HOURS 10 DAILY, # 144 lozenge, 2 Refills, Maintenance, 07/15/19 12:34:00 EST, [facility]/pharmacy #0843, 1 lozenge By Mouth Every [...] PAIN CALL 911 IF PAIN NOT RELIEVED, [facility]/pharmacy #0843 Start Date: 02/17/19 Status: Ordered NovoLOG FlexPen 100 units/mL subcutaneous solution See Instructions, # 15 Unknown, Refills 5 Tot. Refills 5, INJECT 0-18 UNITS SUBCUTANEOUSLY WITH MEALS FOR SLIDING SCALES, [facility]/pharmacy #[id number] Start Date: 01/04/19 Status: Ordered Pen [place], 31 G x 5 mm BD Ultra [...] 01/21/19 11:26:23 EDT, Route to Pharmacy Electronically, [id number], [facility]/pharmacy #0843 Start Date: 01/21/19 Status: Ordered [...] EST, Tablet, this was previously sent to [facility] pharmacy Start Date: 05/17/19 Stop Date: [...] 524 weeks therapy with sofosbuvir/weight based ribavirin 38237 inferolateral stent bare metal circumflex 7DR Marissa sx;Dr Schwartz 8repeat colonoscopy in 5 years Social History Social History Type Response Smoking Status Former smoker, quit more than 30 days ago entered on: 12/22/18 Sex
--- OUTSIDE RECORDS SUMMARY | 2024-06-01 12:01 | XMS_ITS | Continuity of Care Document ---
Author Organization [facility] Shawn Lazaro lt Address [address] [place] [address]- Care Team Providers Care Plate Straightener Name Role Phone Carrie Kelly RIVERA Primary Care Physician Encounter [facility] Date(s): 09/22/23 - 10/22/23 [facility] Adult [address] [place] [address]- Allergies, Adverse Reactions, Alerts Substance Reaction Severity Status Bee Stings Active Immunizations Given and Recorded Vaccine Date Status Refusal Reason tetanus/diphtheria/pertussis, acel(Tdap) 10/15/23 Recorded tetanus/diphtheria/pertussis, acel(Tdap) 07/28/11 Given SARS-CoV-2(COVID-19)mRNA-LNP vac([id number]) 05/08/23 Recorded pneumococcal 20-valent conjugate vaccine 1 05/01/23 Given influenza virus vaccine, inactivated 2 05/01/23 Gi aracely influenza virus vaccine, inactivated 05/17/22 Andrew rded influenza virus vaccine, inactivated 05/24/21 Adnrew rded influenza virus vaccine, inactivated 03/13/20 Andrew rded influenza virus vaccine, inactivated 03/23/19 Give n influenza virus vaccine, inactivated 06/03/18 Give n influenza virus vaccine, inactivated 05/02/17 Andrew rded influenza virus vaccine, inactivated 04/12/17 Andrew rded influenza virus vaccine, inactivated 04/16/16 Give n influenza virus vaccine, inactivated 04/16/10 Give n zoster vaccine, inactivated 02/03/23 Recorded zoster vaccine, inactivated 08/09/19 Recorded [id number] 12y+ bivalent booster vax 05/17/22 Recorded SARS-CoV-2 [...] adult vaccine 4 12/10/10 Given 1Result Comment: [id number] 2Result Comment: [id number] 3Admin Note: pt waited 10 mins post inj no adverse reaction noted.j a 4Admin Note: PT WAITED 10 MIN WITH NO ADVERSE REACTION. MH Medications aspirin 81 mg oral delayed release tablet 1 tablet, By Mouth, Daily, # 90 tablet, 1 Refills, Maintenance, 06/02/23 11:42:00 EST, [facility], 168, cm, 05/01/23 14:45:00 EDT, Height, 93, [...] capsule, 1 Refills, Maintenance, 06/30/23 7:20:00 EST, [facility], 168, cm, 05/01/23 14:45:00 EDT, Height, 93, kg, 01/28/22 14:55:00 EDT, Dry Weight Start Date: 06/30/23 Status: Ordered Daily Simone oral tablet 1 tablet, By Mouth, Daily, # 90 tablet, 1 Refills, Maintenance, 06/30/23 7:20:00 EST, [facility]14[facility], 90, TAKE 1 TABLET BY MOUTH EVERY [...] Refills, Maintenance, 06/26/23 6:50:00 EST, [facility], 168, cm, 05/01/23 14:45:00 EDT, Height, 93, kg, 01/28/22 14:55:00 EDT, Dry Weight Start Date: 06/26/23 Status: Ordered folic acid 1 mg oral tablet 1, tablet, By Mouth, Daily, # 90 tablet, Refills 1, Tot. Refills 1, Maintenance, 07/03/23 10:01:00 EST, Route to Pharmacy Electronically, [facility]/pharmacy #[id number], 168, cm, 05/01/23 14:45:00 EDT, Height, [...] 01/21/19 11:25:36 EDT, Route to Pharmacy Electronically, [id number], [facility]/pharmacy #[id number] Start Date: 01/21/19 Stop Date: 05/21/19 Status: Ordered lamotrigine 100 mg oral tablet Refills 0, Maintenance, 05/01/23 15:28:00 EDT, Partial fill upon patient request if the prescription is for a schedule II opioid drug. Start Date: 05/01/23 Status: Ordered lisinopril 40 mg oral tablet 1 tablet, By Mouth, Daily, # 90 tablet, 1 Refills, Maintenance, 08/17/23 13:33:00 EST, [facility]/pharmacy#0843, 168, cm, 07/23/23 15:05:00 EST, Height, 93, kg, 01/28/22 14:55:00 EDT, Dry Weight Start Date: 08/17/23 Status: Ordered Metoprolol Tartrate 50 mg oral tablet 1.5 tablet, By Mouth, 2 times a day, # 270 tablet, 1 Refills, Maintenance, 09/16/23 14:32:00 EDT, [facility]/pharmacy #0843, 168, cm, 07/23/23 15:05:00 EST, Height, 93, kg, 01/28/22 14:55:00 EDT, Dry Weight Start Date: 09/16/23 Status: Ordered nitroglycerin 0.4 mg sublingual tablet See Instructions, DISSOLVE 1 UNDER TONGUE EVERY 5 MINUTES NEEDED FOR CHEST PAIN CALL MD AFTER TAKING 3 TABS IN TOTAL IN A DAY, # 100 tablet, 0 Refills, Maintenance, 10/03/22 15:53:00 EDT, [facility]/pharmacy #0843, 175, cm, 09/17/22 13:59:00 EDT, Height,... Start Date: 10/03/22 Status: Ordered NovoLOG FlexPen 100 units/mL injectable solution See Instructions, INJECT 0-18 UNITS SUBCUTANEOUSLY WITH MEALS FOR SLIDING SCALES, # 15 Unknown, 2 Refills, 11/07/22 0:09:00 EDT, [facility], 175, cm, 10/09/22 16:51:00 EDT, Height, 93, kg, 01/28/22 14:55:00 EDT, Dry Weight Start Date: 11/07/22 Status: Ordered Pen [place], 31 G x 5 mm BD Ultra [...] Refills, Maintenance, 03/29/23 14:43:00 EDT, [facility], 175, cm, 10/09/22 16:51:00 EDT, Height, 93, [...] mild to moderate. 3MI 2012 circumflex stent 2013/[place] 4secondary to hep C 524 weeks therapy with sofosbuvir/weight based ribavirin 64174 inferolateral stent bare metal circumflex 7DR Molddoverno [...] Team Personnel Name: Jeffrey Mccoy MD Position: [facility] Renal MD Member Role: Lifetime Consulting Physician Address: Address: [address] [place] [address] [address] [facility] [place] [place] [address]- Name: Kelly Butler NP Position: [facility] PCO Associate Professional Member Role: PCP Address: Address: [address] [place] [address]- Name: Kristin Mckenzie Position: [facility] Outreach Member Role: Lifetime Consulting Physician Name: Prieto Tobin RN Position: [facility] RN Member Role: Primary Care Nurse Name: Jonn Hui DO Position: [facility] Renal MD Member Role: Lifetime Consulting Physician Address: Address: [address] [place] [address] [address] [facility] [place] [place] [address] Name: Zafar CALVO, Luis Angel Rojas Position: [facility] RN Member Role: Primary Care Nurse Care Team Related Persons Name: CARLOS A BORDEN Address: home [address] [place] [address] Name: LEVI BORDEN Address: home [address] [place] [address]
--- OUTSIDE RECORDS SUMMARY | 2024-06-01 12:01 | XMS_ITS | Continuity of Care Document ---
Author Organization [facility] Shawn Lazaro lt Address [address] [place] [address]- Care Team Providers Care Senior Bi Developer Name Role Phone Aylin HICKMAN, Ben Willis Primary Care Physician Encounter [facility] Date(s): 02/28/21 - 03/30/21 [facility] Adult [address] [place] [address]- Allergies, Adverse Reactions, Alerts Substance Reaction Severity [...] tablet, 11 Refills, Maintenance, 06/26/20 12:19:00 EST, [facility], 175, cm, 06/25/20 16:11:00 EST, Height, 83.6, [...] Refills, Maintenance, 01/23/21 11:08:00 EDT, CR Capsule, [facility]/pharmacy #0843, 175.3, cm, 01/21/21 12:58:00 EDT, Height, 83.6, kg, 04/23/20 17:46:00EDT, Dry Weight Start Date: 01/23/21 Stop Date: 01/18/22 Status: Ordered cholecalciferol 2000 intl units oral capsule 1 capsule = 2,000 International_Units, By Mouth, Daily, # 30 capsule, 5 Refills, Maintenance, 11/02/20 10:48:00 EDT, Capsule, [facility]/pharmacy #0843, 175, cm, 09/21/20 11:29:00 EDT, Height, 83.6, kg, 04/23/20 17:46:00 EDT, Dry Weight Start Date: 11/02/20 Status: Ordered cloNIDine 0.2 mg oral tablet 0.2 mg, 1, tablet, By Mouth, 2 times a day, # 60 tablet, Refills 5, Tot. Refills 5, Maintenance, 02/28/21 10:13:00 EDT, Route to Pharmacy Electronically, [facility]/pharmacy #0843, 175.3, cm, 01/21/21 12:58:00 EDT, Height, 83.6, kg, 04/23/20 17:46:00 EDT, Start Date: 02/28/21 Status: Ordered Daily Simone oral tablet 1 tablet, By Mouth, Daily, # 30 tablet, 5 Refills, Maintenance, 09/19/20 8:25:00 EDT, Tablet, [facility], 1 tablet By Mouth Daily,x30 days, 175, cm, 07/20/20 10:29:00 EST, Height, 83.6, kg, 04/23/20 17:46:00 EDT, Dry Weight Start Date: 09/19/20 Stop Date: 03/18/21 Status: Ordered docusate sodium 100 mg oral capsule 1 capsule, By Mouth, 2 times a day, PRN NEEDED FOR CONSTIPATION, # 60 capsule, 5 Refills, Maintenance, 01/22/21 12:45:00 EDT, [facility], 175.3, cm, 01/21/21 12:58:00 EDT, Height, 83.6, kg, 04/23/20 17:46:00 EDT, Dry Weight Start Date: 01/22/21 Status: Ordered folic acid 1 mg oral tablet 1, tablet, By Mouth, Daily, # 30 tablet, Refills 5, Tot. Refills 0, Maintenance, 01/18/21 14:44:00 EDT, Route to Pharmacy Electronically, [facility], 175, cm, 12/24/20 11:20:00 EDT, Height, 83.6, [...] 01/21/19 11:25:36 EDT, Route to Pharmacy Electronically, [id number], [facility]/pharmacy #0843 Start Date: 01/21/19 Stop [...] tablet, 0 Refills, Maintenance, 03/22/21 12:39:00 EDT, [facility]/pharmacy #0843, 175.2, cm, 03/18/21 10:48:00 EDT, Height, 88.3, kg, 03/12/21 9:16:00 EDT, Dry Weight Start Date: 03/22/21 Status: Ordered nicotine 2 mg oral transmucosal lozenge See Instructions, USE 1 LOZENGE UP TO EVERY 1 HOUR NEEDED FOR 10 DAYS, # 162 lozenge, 1 Refills,[facility], 10, USE 1 LOZENGE UP TO EVERY [...] 9:13:... Start Date: 02/01/20 Status: Ordered Pen [place], 31 G x 5 mm BD Ultra [...] tablet, 1 Refills, Maintenance, 01/08/21 14:43:00 EDT, [facility]/pharmacy#0843, 175, cm, 12/24/20 11:20:00 EDT, Height, 83.6, kg, 04/23/20 17:46:00 EDT, Dry Weight Start Date: 01/08/21 Status: Ordered SEROquel 100 mg oral tablet 100 mg, 1, tablet, By Mouth, 2 times a day, # 60 tablet, Refills 2, Tot. Refills 2, Maintenance, 09/21/19 10:41:00 EDT, Route to Pharmacy Electronically, [facility]/pharmacy #0843, 172, cm, 09/05/19 16:17:00 EST, [...] 1, 2 Active Cigarette smoker(Confirmed) Active ASHD; [place] 2012/stent circumfl ex vessel cath;abdelrahman 2018(Confirmed) 3 [...] mild to moderate. 3MI 2012 circumflex stent 2012/[place] 4secondary to hep C 524 weeks therapy with sofosbuvir/weight based ribavirin 52764 inferolateral stent bare metal circumflex 7DR Molddoverno [...]
--- OUTSIDE RECORDS SUMMARY | 2024-06-01 12:01 | XMS_ITS | Continuity of Care Document ---
Author Organization [facility] Shawn Lazaro lt Address [address] [place] [address]- Care Team Providers Care Business Services Associate Name Role Phone Carrie Kelly RIVERA Primary Care Physician Encounter [facility] [place] Date(s): 01/05/23 - 02/04/23 [facility] Shawn Adult [address] [place] [address]- Allergies, Adverse Reactions, Alerts Substance Reaction Severity Status Bee Stings Active Immunizations Given and Recorded Vaccine Date Status Refusal Reason influenza virus vaccine, inactivated 05/17/22 Andrew rded influenza virus vaccine, inactivated 05/24/21 Andrew rded influenza virus vaccine, inactivated 03/13/20 Adnrew rded influenza virus vaccine, inactivated 03/23/19 Give n influenza virus vaccine, inactivated 06/03/18 Give n influenza virus vaccine, inactivated 05/02/17 Andrew rded influenza virus vaccine, inactivated 04/12/17 Andrew rded influenza virus vaccine, inactivated 04/16/16 Give n influenza virus vaccine, inactivated 04/16/10 Give n [id number] 12y+ bivalent booster vax 05/17/22 Recorded SARS-CoV-2 [...] tablet, 1 Refills, Maintenance, 12/30/22 14:35:00 EDT, [facility]/pharmacy#[id number], 175, cm, 10/09/22 16:51:00 EDT, Height, [...] Refills, Maintenance, 01/07/23 21:36:00 EDT, [id number], 90, TAKE 1 TABLET BY MOUTH EVERY [...] capsule, 5 Refills, Maintenance, 07/18/22 11:59:00 EST, [facility]/pharmacy #[id number], 175, cm, 07/17/22 10:33:00 EST, Height, 93, kg, 01/28/22 14:55:00 EDT, Dry Weight Start Date: 07/18/22 Status: Ordered Flonase 50 mcg/inh nasal spray 1 sprays, Nares, Both, 2 times a day, # 16 Gm, 0 Refills, Maintenance, 09/05/22 9:15:00 EST, [place],[facility]/pharmacy #[id number], Partial fill upon patient request [...] 01/21/19 11:25:36 EDT, Route to Pharmacy Electronically, [id number], [facility]/pharmacy #[id number] Start Date: 01/21/19 Stop Date: 05/21/19 Status: Ordered lisinopril 40 mg oral tablet 1 tablet, By Mouth, Daily, # 90 tablet, 0 Refills, Maintenance, 12/29/22 11:59:00 EDT, [facility]/pharmacy#[id number], 175, cm, 10/09/22 16:51:00 EDT, Height, 93, kg, 01/28/22 14:55:00 EDT, Dry Weight Start Date: 12/29/22 Status: Ordered Metoprolol Tartrate 50 mg oral tablet 1.5 tablet, By Mouth, 2 times a day, # 270 tablet, 1 Refills, Maintenance, 09/01/22 13:28:00 EST, [id number], 175, cm, 07/17/22 10:33:00 EST, Height, 93, [...] 15 Unknown, 2 Refills, 11/07/22 0:09:00 EDT, [facility]/pharmacy #[id number], 175, cm, 10/09/22 16:51:00 EDT, Height, 93, kg, 01/28/22 14:55:00 EDT, Dry Weight Start Date: 11/07/22 Status: Ordered Pen [place], 31 G x 5 mm BD [...] capsule, 2 Refills, Maintenance, 08/07/22 12:55:00EST, Capsule, [facility]/pharmacy #[id number], 175, cm, 07/17/22 10:33:00 EST, Height, 93, kg, 01/28/22 14:55:00EDT, Dry Weight Start Date: 08/07/22 Status: Ordered rosuvastatin 20 mg oral tablet 1 tablet, By Mouth, Daily, # 90 tablet, 0 Refills, Maintenance, 12/30/22 14:34:00 EDT, [facility]/pharmacy#[id number], 175, cm, 10/09/22 16:51:00 EDT, Height, 93, kg, 01/28/22 14:55:00 EDT, Dry Weight Start Date: 12/30/22 Status: Ordered Senna 8.6 mg oral tablet 1 or 2 tablets, By Mouth, Daily at bedtime, PRN, # 60 tablet, Refills 5, Tot. Refills 5, Maintenance, Constipation, 11/03/22 15:04:00 EDT, Route to Pharmacy Electronically, [facility]/pharmacy #[id number] Tablet,Partial fill upon patient request if the prescripti... Start Date: 11/03/22 Status: Ordered SEROquel 100 mg oral tablet 100 mg, 1, tablet, By Mouth, 2 times a day, PRN, # 1 tablet, Refills 2, Tot. Refills 2, Maintenance, Anxiety, 09/21/19 10:41:00 EDT, Route to Pharmacy Electronically, [facility]/pharmacy #[id number], 172, cm, 09/05/19 16:17:00 EST, [...] 9 Unknown, 1 Refills, 01/21/22 15:39:00 EDT, [facility]/pharmacy #[id number], 175.2, cm, 12/18/21 14:10:00 EDT, Height... Start Date: 01/21/22 Status: Ordered Trulicity Pen 0.75 mg/0.5 mL subcutaneous solution 0.5 mL = 0.75 mg, Subcutaneous Injection, Every week, # 2.5 mL, 1 Refills, Maintenance, 01/13/23 9:59:00 EDT, Solution, [facility]/pharmacy #[id number], 175, cm, 10/09/22 16:51:00 [...] mild to moderate. 3MI 2012 circumflex stent 2012/[place] 4secondary to hep C 524 weeks therapy with sofosbuvir/weight based ribavirin 78916 inferolateral stent bare metal circumflex 7DR Moldvernmateo [...] Role: Lifetime Consulting Physician Address: Address: [address] [place] [address] [facility] [place] [address]- Name: Kelly Butler NP Position: [facility] PCO Associate Professional Member Role: PCP Address: Address: [address] [place] [address]- Name: Kristin Mckenzie Position: [facility] Outreach Member Role: Lifetime Consulting Physician Name: Prieto Tobin RN Position: [facility] RN Member Role: Primary Care Nurse Name: Jonn Hui DO Position: [facility] Renal MD Member Role: Lifetime Consulting Physician Address: Address: [address] [place], [place] [address] [place], [place] [address] Name: Luis Angel Stephen RN Position: [facility] RN Member Role: Primary Care Nurse Care Team Related Persons Name: CARLOS A BORDEN Address: [address] [place] [address] Name: LEVI BORDEN Address: home [address] [place] [address]
--- OUTSIDE RECORDS SUMMARY | 2024-06-01 12:01 | XMS_ITS | Continuity of Care Document ---
Author Organization [facility] Shawn Lazaro lt Address [address] [place] [address]- Care Team Providers Care Hospice Superintendent Name Role Phone Aylin HICKMAN, Ben Willis Primary Care Physician [facility]counter [facility] Date(s): 06/01/20 - 07/01/20 [facility] Adult [address] [place] [address]- Allergies, Adverse Reactions, Alerts Substance Reaction Severity [...] 10:48:07 EST, Aerosol, Route to Pharmacy Electronically, [id number], [facility]/pharmacy #[id number], 180, cm, 06/17/19 10:36:11 EST, Height Start Date: 06/17/19 Status: Ordered aspirin 81 mg oral delayed release tablet 1 tablet, By Mouth, Daily, # 30 tablet, 11 Refills, Maintenance, 06/26/20 12:19:00 EST, [id number], 175, cm, 06/25/20 16:11:00 EST, Height, 83.6, [...] Refills, Maintenance, 01/02/20 15:47:00 EDT, CR Capsule, [facility]/pharmacy #[id number], 172, cm, 12/14/19 8:02:00 EDT, Height, 97.8, kg, 08/11/19 5:24:00 EST, Dry Weight Start Date: 01/02/20 Stop Date: 12/27/20 Status: Ordered cholecalciferol 2000 intl units oral capsule 1 capsule = 2,000 International_Units, By Mouth, Daily, # 30 capsule, 5 Refills, Maintenance, 05/25/20 11:53:00 EST, Capsule, [facility]/pharmacy #[id number], 175, cm, 05/24/20 12:46:00 EST, Height, 83.6, kg, 04/23/20 17:46:00 EDT, Dry Weight Start Date: 05/25/20 Status: Ordered cloNIDine 0.2 mg oral tablet 0.2 mg, 1, tablet, By Mouth, 2 times a day, # 60 tablet, Refills 2, Tot. Refills 2, Maintenance, 06/22/20 10:52:00 EST, Route to Pharmacy Electronically, [facility]/pharmacy #[id number], 175, cm, 05/24/20 12:46:00 EST, Height, 83.6, kg, 04/23/20 17:46:00 EDT, Dry... Start Date: 06/22/20 Status: Ordered Colace sodium 100 mg oral capsule 100 mg, 1, capsule, By Mouth, 2 times a day, PRN, # 60 capsule, Refills 5, Tot. Refills 5, Maintenance, for constipation, 02/27/20 15:25:00 EDT, Route to Pharmacy Electronically, [facility]/pharmacy #[id number], 172, cm, 12/14/19 8:02:00 EDT, Height, 97.8, kg, 02/... Start Date: 02/27/20 Status: Ordered Crestor 20 mg oral tablet 1 tablet = 20 mg, By Mouth, Daily, # 90 tablet, 3 Refills, Maintenance, 01/02/20 15:46:00 EDT, Tablet, [facility]/pharmacy #[id number], 172, cm, 12/14/19 8:02:00 EDT, Height, 97.8, kg, 08/11/19 5:24:00 EST, Dry Weight Start Date: 01/02/20 Status: Ordered Daily Simone oral tablet 1 tablet, By Mouth, Daily, # 30 tablet, 5 Refills, Maintenance, 03/01/20 14:48:00 EDT, Tablet, [facility]/pharmacy #[id number], 1 tablet By Mouth Daily,x30 days, 172, cm, 12/14/19 8:02:00 EDT, Height, 97.8, kg, 08/11/19 5:24:00 EST, Dry Weight Start Date: 03/01/20 Stop Date: 08/28/20 Status: Ordered folic acid 1 mg oral tablet 1 mg, 1, tablet, By Mouth, Daily, # 30 tablet, Refills 5, Tot. Refills 5, Maintenance, 12/29/19 11:13:00 EDT, Route to Pharmacy Electronically, [facility]/pharmacy #[id number], 172, cm, 12/14/19 8:02:00 EDT, Height, [...] 5 Refills, Maintenance, 02/27/20 15:23:00 EDT, [facility]/pharmacy #[id number], 172, cm, 12/14/19 8:02:00 EDT, Height, 97.8, kg, 08/11/19 5:24:00 EST, Dry Weight Start Date: 02/27/20 Status: Ordered Golytely - oral powder for reconstitution 240 mL, By Mouth, Daily, bowel instruction, # 4,000 mL, 0 Refills, Maintenance, 06/21/20 16:44:00 EST, REC Powder, [facility]/pharmacy #[id number], Partial fill upon patient request if the prescription is for a schedule II opioid drug., 240 mL By Mouth Daily,Instr... Start Date: 06/21/20 Status: Ordered LaMICtal 100 mg oral tablet 100 mg, 1, tablet, By Mouth, 2 times a day, # 60 tablet, Refills 3, Tot. Refills 3, Maintenance, 01/21/19 11:25:36 EDT, Route to Pharmacy Electronically, [id number], [facility]/pharmacy #[id number] Start Date: 01/21/19 Stop Date: 05/21/19 [...] 01/02/20 15:45:00 EDT, Route to Pharmacy Electronically, [facility]/pharmacy #[id number], 172, cm, 12/14/19 8:02:00 EDT, Height, 9... Start Date: 01/02/20 Status: Ordered nicotine 2 mg oral transmucosal lozenge See Instructions, suck, up to q1 hrs 10 daily, # 144 lozenge, 1 Refills, Maintenance, 03/21/20 11:13:00 EDT, [facility]/pharmacy #[id number], suck, up to q1 hrs 10 daily, 172, cm, 03/21/20 11:04:00 EDT, Height, 97.8, kg, 08/11/19 5:24:00 EST, Dry Weight Start Date: 03/21/20 Status: Ordered nicotine 4 mg oral transmucosal lozenge 1 lozenge = 4 mg, By Mouth, Every hour, dispense 2 boxes of 81 count, # 189 lozenge, 1 Refills, Maintenance, 06/19/20 12:59:00 EST, [facility]/pharmacy #[id number], 1 lozenge By Mouth Every hour,Instr:dispense [...] 2 Refills, Soft Stop, 06/01/20 13:51:00 EST, [facility]/pharmacy #[id number], 175, cm, 05/24/20 12:46:00 EST, Height, 83.6, kg, 04/23/20 17:... Start Date: 06/01/20 Status: Ordered NovoLOG FlexPen 100 units/mL subcutaneous solution See Instructions, INJECT 0-18 UNITS SUBCUTANEOUSLY WITH MEALS FOR SLIDING SCALES, # 15 Unknown, 5 Refills, Soft Stop, 02/01/20 9:13:00 EDT, [facility]/pharmacy #[id number], 172, cm, 12/14/19 8:02:00 EDT, Height, 97.8, kg, 08/11/19 5:24:00 EST, Dry Weight Start Date: 02/01/20 Status: Ordered Pen [place], 31 G x 5 mm BD Ultra [...] 10:41:00 EDT, Route to Pharmacy Electronically, [facility]/pharmacy #[id number], 172, cm, 09/05/19 16:17:00 EST, Height, [...] Active Glomerulonephritis,mesangial proliferative/fibrillary(Confirmed) 1, 2 Active ASHD; [place] 2012/stent circumfl ex vessel cath;abdelrahman 2018(Confirmed) 3 [...] mild to moderate. 3MI 2012 circumflex stent 2012/[place] 4secondary to hep C 524 weeks therapy with sofosbuvir/weight based ribavirin 07859 inferolateral stent bare metal circumflex 7DR Marissa [...]
--- OUTSIDE RECORDS SUMMARY | 2024-06-01 12:01 | XMS_ITS | Continuity of Care Document ---
Author Organization [facility] Address [address] [place] [address]- Care Team Providers Care Language Path Name Role Phone Aylin HICKMAN, Ben Willis Primary Care Physician Encounter [facility] Date(s): 04/11/20 - 05/11/20 [facility] [address] [place] [address]- Allergies, Adverse Reactions, Alerts Substance Reaction Severity [...] 10:48:07 EST, Aerosol, Route to Pharmacy Electronically, [id number], [facility]/pharmacy #[id number], 180, cm, 06/17/19 10:36:11 EST, Height Start Date: 06/17/19 Status: Ordered aspirin 81 mg oral tablet 1 tablet = 81 mg, By Mouth, Daily, # 30 tablet, 11 Refills, Maintenance, 09/03/19 14:22:00 EST, Tablet, [facility]/pharmacy #[id number], 180, cm, 08/01/19 10:43:00 EST, [...] Refills, Maintenance, 01/02/20 15:47:00 EDT, CR Capsule, [facility]/pharmacy #[id number], 172, cm, 12/14/19 8:02:00 EDT, Height, 97.8, kg, 08/11/19 5:24:00 EST, Dry Weight Start Date: 01/02/20 Stop Date: 12/27/20 Status: Ordered cholecalciferol 2000 intl units oral capsule 1 capsule = 2,000 International_Units, By Mouth, Daily, # 30 capsule, 5 Refills, Maintenance, 11/02/19 10:15:00 EDT, Capsule, [facility]/pharmacy #[id number], 172, cm, 09/05/19 16:17:00 EST, Height, 97.8, kg, 08/11/19 5:24:00 EST, Dry Weight Start Date: 11/02/19 Status: Ordered cloNIDine 0.2 mg oral tablet 0.2 mg, 1, tablet, By Mouth, 2 times a day, # 60 tablet, Refills 2, Tot. Refills 2, Maintenance, 03/08/20 16:50:00 EDT, Route to Pharmacy Electronically, [facility]/pharmacy #[id number], 172, cm, 12/14/19 8:02:00EDT, Height, 97.8, kg, 08/11/19 5:24:00 EST, Dry We... Start Date: 03/08/20 Status: Ordered Colace sodium 100 mg oral capsule 100 mg, 1, capsule, By Mouth, 2 times a day, PRN, # 60 capsule, Refills 5, Tot. Refills 5, Maintenance, for constipation, 02/27/20 15:25:00 EDT, Route to Pharmacy Electronically, [facility]/pharmacy #[id number], 172, cm, 12/14/19 8:02:00 EDT, Height, 97.8, kg, 02/... Start Date: 02/27/20 Status: Ordered Crestor 20 mg oral tablet 1 tablet = 20 mg, By Mouth, Daily, # 90 tablet, 3 Refills, Maintenance, 01/02/20 15:46:00 EDT, Tablet, [facility]/pharmacy #[id number], 172, cm, 12/14/19 8:02:00 EDT, Height, 97.8, kg, 08/11/19 5:24:00 EST, Dry Weight Start Date: 01/02/20 Status: Ordered Daily Simone oral tablet 1 tablet, By Mouth, Daily, # 30 tablet, 5 Refills, Maintenance, 03/01/20 14:48:00 EDT, Tablet, [facility]/pharmacy #[id number], 1 tablet By Mouth Daily,x30 days, 172, cm, 12/14/19 8:02:00 EDT, Height, 97.8, kg, 08/11/19 5:24:00 EST, Dry Weight Start Date: 03/01/20 Stop Date: 08/28/20 Status: Ordered folic acid 1 mg oral tablet 1 mg, 1, tablet, By Mouth, Daily, # 30 tablet, Refills 5, Tot. Refills 5, Maintenance, 12/29/19 11:13:00 EDT, Route to Pharmacy Electronically, [facility]/pharmacy #[id number], 172, cm, 12/14/19 8:02:00 EDT, [...] tablet, 5 Refills, Maintenance, 02/27/20 15:23:00 EDT, [facility]/pharmacy #[id number], 172, cm, 12/14/19 8:02:00 EDT, Height, 97.8, kg, 08/11/19 5:24:00 EST, Dry Weight Start Date: 02/27/20 Status: Ordered LaMICtal 100 mg oral tablet 100 mg, 1, tablet, By Mouth, 2 times a day, # 60 tablet, Refills 3, Tot. Refills 3, Maintenance, 01/21/19 11:25:36 EDT, Route to Pharmacy Electronically, [id number], [facility]/pharmacy #[id number] Start Date: 01/21/19 Stop Date: [...] 01/02/20 15:45:00 EDT, Route to Pharmacy Electronically, [facility]/pharmacy #[id number], 172, cm, 12/14/19 8:02:00 EDT, Height, 9... Start Date: 01/02/20 Status: Ordered nicotine 2 mg oral transmucosal lozenge See Instructions, suck, up to q1 hrs 10 daily, # 144 lozenge, 1 Refills, Maintenance, 03/21/20 11:13:00 EDT, [facility]/pharmacy #[id number], suck, up to q1 hrs 10 daily, 172, cm, 03/21/20 11:04:00 EDT, Height, 97.8, kg, 08/11/19 5:24:00 EST, Dry Weight Start Date: 03/21/20 Status: Ordered nicotine 4 mg oral transmucosal lozenge 1 lozenge = 4 mg, By Mouth, Every hour, # 132 lozenge, 1 Refills, Maintenance, 11/29/19 8:13:00 EDT, [facility]/pharmacy #[id number], 1 lozenge By Mouth Every [...] PAIN CALL 911 IF PAIN NOT RELIEVED, [facility]/pharmacy #[id number] Start Date: 02/17/19 Status: Ordered NovoLOG FlexPen 100 units/mL subcutaneous solution See Instructions, INJECT 0-18 UNITS SUBCUTANEOUSLY WITH MEALS FOR SLIDING SCALES, # 15 Unknown, 5 Refills, Soft Stop, 02/01/20 9:13:00 EDT, [facility]/pharmacy #[id number], 172, cm, 12/14/19 8:02:00 EDT, Height, 97.8, kg, 08/11/19 5:24:00 EST, Dry Weight Start Date: 02/01/20 Status: Ordered Ozempic (0.25 mg or 0.5 mg dose) 2 mg/1.5 mL subcutaneous solution See Instructions, INJECT 0.25 MG SUBCUTANEOUSLY WEEKLY, # 1.5 Unknown, 0 Refills, Maintenance, [id number], 172, cm, 12/14/19 8:02:00 EDT, Height, 97.8, kg, 08/11/19 5:24:00 EST, Dry Weight Start Date: 02/09/20 Status: Ordered Pen [place], 31 G x 5 mm BD Ultra [...] 09/21/19 10:41:00 EDT, Route to Pharmacy Electronically, [facility]/pharmacy #[id number], 172, cm, 09/05/19 16:17:00 EST, [...] EST, Tablet, this was previously sent to [facility] pharmacy Start Date: 05/17/19 Stop [...] Active Glomerulonephritis,mesangial proliferative/fibrillary(Confirmed) 1, 2 Active ASHD; [place] 2012/stent circumfl ex vessel cath;abdelrahman 2018(Confirmed) 3 [...] mild to moderate. 3MI 2012 circumflex stent 2013/[place] 4secondary to hep C 524 weeks therapy with sofosbuvir/weight based ribavirin 49631 inferolateral stent bare metal circumflex 7DR Marissa [...]
--- OUTSIDE RECORDS SUMMARY | 2024-06-01 12:02 | XMS_ITS | Continuity of Care Document ---
Author Organization [facility] Shawn Lazaro lt Address [address] [place] [address]- Care Team Providers Care Monotypist Name Role Phone Aylin HICKMAN, Ben Willis Primary Care Physician [facility] Date(s): 07/26/21 - 08/25/21 [facility] Adult [address] [place] [address]- Allergies, Adverse Reactions, Alerts Substance Reaction Severity [...] 5 Refills, Maintenance, 07/25/21 10:21:00 EST, [facility]/pharmacy#[id number], 175.2, cm, 06/07/21 9:51:00 EST, Height, 88.3, [...] Maintenance, 01/23/21 11:08:00 EDT, CR Capsule, [facility]/pharmacy #[id number], 175.3, cm, 01/21/21 12:58:00 EDT, Height, 83.6, kg, 04/23/20 17:46:00EDT, Dry Weight Start Date: 01/23/21 Stop Date: 01/18/22 Status: Ordered cholecalciferol 2000 intl units oral capsule 1 capsule = 2,000 International_Units, By Mouth, Daily, # 30 capsule, 5 Refills, Maintenance, 05/15/21 13:02:00 EST, Capsule, [facility]/pharmacy #[id number], 175.2, cm, 03/18/21 10:48:00 EDT, Height, 88.3, kg, 03/12/21 9:16:00 EDT, Dry Weight Start Date: 05/15/21 Status: Ordered cloNIDine 0.2 mg oral tablet 0.2 mg, 1, tablet, By Mouth, 2 times a day, # 60 tablet, Refills 5, Tot. Refills 5, Maintenance, 06/24/21 12:51:00 EST, Route to Pharmacy Electronically, [facility]/pharmacy #[id number], 175.2, cm, 06/07/21 9:51:00 EST, Height, 88.3, kg, 03/12/21 9:16:00 EDT, Dry... Start Date: 06/24/21 Status: Ordered Daily Simone oral tablet 1 tablet, By Mouth, Daily, # 30 tablet, 5 Refills, Maintenance, 07/29/21 13:53:00 EST, Tablet, [facility]/pharmacy #[id number], 1 tablet By Mouth Daily,x30 days, 175.2, cm, 06/07/21 9:51:00 EST, Height, 88.3, kg,03/12/21 9:16:00 EDT, Dry Weight Start Date: 07/29/21 Stop Date: 01/25/22 Status: Ordered docusate sodium 100 mg oral capsule 1 capsule, By Mouth, 2 times a day, PRN NEEDED FOR CONSTIPATION, # 60 capsule, 5 Refills, Maintenance, 06/05/21 15:57:00 EST, [facility]/pharmacy #[id number], 175.2, cm, 05/27/21 11:26:00 EST, Height, 88.3, kg, 03/12/21 9:16:00 EDT, Dry Weight Start Date: 06/05/21 Status: Ordered folic acid 1 mg oral tablet 1, tablet, By Mouth, Daily, # 30 tablet, Refills 5, Tot. Refills 5, Maintenance, 07/25/21 15:59:00 EST, Route to Pharmacy Electronically, [facility]/pharmacy #[id number], 175.2, cm, 06/07/21 9:51:00 [...] 5 Refills, Maintenance, 06/05/21 15:57:00 EST, [facility]/pharmacy #[id number], 175.2, cm, 05/27/21 11:26:00 EST, Height, 88.3, kg, 03/12/21 9:16:00 EDT, Dry Weight Start Date: 06/05/21 Status: Ordered LaMICtal 100 mg oral tablet 100 mg, 1, tablet, By Mouth, 2 times a day, # 60 tablet, Refills 3, Tot. Refills 3, Maintenance, 01/21/19 11:25:36 EDT, Route to Pharmacy Electronically, [id number], [facility]/pharmacy #[id number] Start Date: [...] Refills, Maintenance, 06/24/21 16:13:00 EST, Tablet, [facility]/pharmacy #[id number], Partial fill upon patient request if the prescription is for a schedule II opioid drug., 175.2, cm, 06/07/21 9:51:00 EST, Height... Start Date: 06/24/21 Status: Ordered Metoprolol Tartrate 50 mg oral tablet See Instructions, TAKE 1 + 1/2 TABLETS BY MOUTH 2 TIMES A DAY, # 270 tablet, 0 Refills, 06/24/21 10:42:00 EST, [facility]/pharmacy #[id number], 175.2, cm, 06/07/21 9:51:00 EST, Height, 88.3, kg, 03/12/21 9:16:00 EDT, Dry Weight Start Date: 06/24/21 Status: Ordered nicotine 2 mg oral transmucosal lozenge See Instructions, USE 1 LOZENGE UP TO EVERY 1 HOUR NEEDED FOR 10 DAYS, # 81 lozenge, 0 Refills, Maintenance, 08/15/21 14:43:00 EST, [facility]/pharmacy #[id number], USE 1 LOZENGE UP TO EVERY 1 HOUR NEEDED FOR 10 DAYS, 175.2, cm, 07/31/21 11:20:00 EST, Height... Start Date: 08/15/21 Status: Ordered nitroglycerin 0.4 mg sublingual tablet See Instructions, DISSOLVE 1 UNDER TONGUE EVERY 5 MINUTES NEEDED FOR CHEST PAIN INSTR:CALL MD AFTER TAKING 3 TABS IN TOTAL IN A DAY, # 100 tablet, 0 Refills, Maintenance, 08/23/21 8:07:00 EST, [facility]/pharmacy #[id number], 175.2, cm, 07/31/21 11:20:00 EST, H... Start Date: 08/23/21 Status: Ordered NovoLOG FlexPen 100 units/mL injectable solution See Instructions, INJECT 0-18 UNITS SUBCUTANEOUSLY WITH MEALS FOR SLIDING SCALES, # 15 Unknown, 2 Refills, [id number], 175.2, cm, 05/27/21 11:26:00 EST, Height, 88.3, kg, 03/12/21 9:16:00 EDT, Dry Weight Start Date: 06/04/21 Status: Ordered Pen [place], 31 G x 5 mm BD Ultra [...] Refills, Maintenance, 06/10/21 12:32:00 EST, Capsule, [facility]/pharmacy #[id number], 175.2, cm, 06/07/21 9:51:00 EST, Height, 88.3, kg, 03/12/21 9:16:00 EDT, Dry Weight Start Date: 06/10/21 Status: Ordered pregabalin 75 mg oral capsule 1 capsule = 75 mg, By Mouth, 2 times a day, # 60 capsule, 5 Refills, Maintenance, 06/07/21 13:14:00EST, Capsule, [facility]/pharmacy #[id number], 175.2, cm, 06/07/21 9:51:00 EST, Height, 88.3, kg, 03/12/21 9:16:00 EDT, Dry Weight Start Date: 06/07/21 Status: Ordered rosuvastatin 20 mg oral tablet 1 tablet, By Mouth, Daily, # 90 tablet, 1 Refills, Maintenance, 08/15/21 14:24:00 EST, [facility]/pharmacy#0843, 175.2, cm, 07/31/21 11:20:00 EST, Height, 88.3, kg, 03/12/21 9:16:00 EDT, Dry Weight Start Date: 08/15/21 Status: Ordered SEROquel 100 mg oral tablet 100 mg, 1, tablet, By Mouth, 2 times a day, # 60 tablet, Refills 2, Tot. Refills 2, Maintenance, 09/21/19 10:41:00 EDT, [id number], cm, 09/05/19 16:17:00 EST, Height, [...] Active Glomerulonephritis,mesangial proliferative/fibrillary(Confirmed) 1, 2 Active [facility]SHD; OK 2012/stent circumfl ex vessel [...] 524 weeks therapy with sofosbuvir/weight based ribavirin [id number] inferolateral stent bare metal circumflex 7DR Marissa [...]
--- OUTSIDE RECORDS SUMMARY | 2024-06-01 12:02 | XMS_ITS | Continuity of Care Document ---
Author Organization [facility] Address [address] [place] [address]- Care Team Providers Care Continuous Crusher Operator Name Role Phone Carrie Kelly RIVERA Primary Care Physician Encounter [facility] Date(s): 02/10/22 - 03/12/22 [facility] [address] [place] [address]- Attending Physician: Radha Biggs Admitting Physician: AdmtrRadha Referring Physician: Admtr, Joshua8 Allergies, Adverse Reactions, Alerts Substance Reaction Severity [...] 5 Refills, Maintenance, 06/05/21 15:57:00 EST, [facility]/pharmacy #0843, 175.2, cm, 05/27/21 11:26:00 EST, Height, 88.3, kg, 03/12/21 9:16:00 EDT, Dry Weight Start Date: 06/05/21 Status: Ordered folic acid 1 mg oral tablet 1, tablet, By Mouth, Daily, # 30 tablet, Refills 5, Tot. Refills 5, Maintenance, 07/25/21 15:59:00 EST, Route to Pharmacy Electronically, [facility]/pharmacy #0843, 175.2, cm, 06/07/21 9:51:00 [...] 01/21/19 11:25:36 EDT, Route to Pharmacy Electronically, [id number], [facility]/pharmacy #0843 Start Date: 01/21/19 Stop Date: 05/21/19 Status: Ordered lisinopril 40 mg oral tablet 1 tablet = 40 mg, By Mouth, Daily, # 30 tablet, 3 Refills, Maintenance, 09/17/21 10:50:00 EDT, Tablet, [facility]/pharmacy #0843, Partial fill upon patient request if the prescription is for a schedule II opioid drug., 175.2, cm, 07/31/21 11:20:00 EST, Heigh... Start Date: 09/17/21 Status: Ordered Metoprolol Tartrate 50 mg oral tablet 1.5 tablet, By Mouth, 2 times a day, # 270 tablet, 0 Refills, [facility] 13259, 175.2, cm, 11/15/21 11:18:00 EDT, Height, 88.3, kg, 03/12/21 9:16:00 EDT, Dry Weight Start Date: 12/12/21 Status: Ordered nicotine 21 mg/24 hr transdermal film, extended release 1 patch, Topically, Daily, for 30 days, # 30 patch, 1 Refills, Acute 04/18/22 14:19:00 EDT, 02/17/22 14:19:00 EDT, Patch, [facility]/pharmacy #0843, 1 patch Topically Daily,x30 [...] 0 Refills, Maintenance, 12/31/21 17:21:00 EDT, [facility]/pharmacy #0843, 175.2, cm, 12/18/21 14:10:00 EDT, Height... Start Date: 12/31/21 Status: Ordered NovoLOG FlexPen 100 units/mL injectable solution See Instructions, INJECT 0-18 UNITS SUBCUTANEOUSLY WITH MEALS FOR SLIDING SCALES, # 15 Unknown, 2 Refills, [facility] 00[facility], 175.2, cm, 05/27/21 11:26:00 EST, Height, 88.3, kg, 03/12/21 9:16:00 EDT, Dry Weight Start Date: 06/04/21 Status: Ordered Pen [place], 31 G x 5 mm BD Ultra [...] 5 Refills, Maintenance, 11/19/21 11:25:00EDT, Capsule, [facility]/pharmacy #0843, 175.2, cm, 11/15/21 11:18:00 EDT, Height, 88.3, kg, 03/12/21 9:16:00 EDT, Dry Weight Start Date: 11/19/21 Status: Ordered rosuvastatin 20 mg oral tablet 1 tablet, By Mouth, Daily, # 90 tablet, 1 Refills, [facility] STORE 40171, 175, cm, 01/29/22 15:12:00 EDT,Height, 93, kg, [...] Refills, Maintenance, 12/18/21 14:33:00 EDT, Suspension, [facility]/pharmacy #0843, 1 drops Eyes, Both [...] # 30 capsule, 5 Refills, [facility], 175.2, cm, 11/15/21 11:18:00 EDT, Height, 88.3, kg, 03/12/21 9:16:00 EDT, Dry Weight Start Date: 11/17/21 Status: Ordered Problem List Condition Effective Dates Status Health Status Inform ant Bipolar disorder(Confirmed) Active Cervical spondylosis(Confirmed) Active Chronic back pain DJD(Confirmed) Active Glomerulonephritis,mesangial proliferative/fibrillary(Confirmed) 1, 2 Active Chronic renal failure, stage 4 (severe)(Confirmed) Active ASHD; [place] 2012/stent circumfl ex vessel [...] mild to moderate. 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
--- OUTSIDE RECORDS SUMMARY | 2024-06-01 12:02 | XMS_ITS | Continuity of Care Document ---
Author Organization [facility] Lazaro lt Address [address] [place] [address]- Care Team Providers Care Traffic Court Referee Name Role Phone Carrie Kelly RIVERA Primary Care Physician Encounter [facility] Date(s): 08/24/23 - 09/23/23 [facility] Adult [address] [place] [address]- Allergies, Adverse Reactions, Alerts Substance Reaction Severity Status Bee Stings Active Immunizations Given and Recorded Vaccine Date Status Refusal Reason SARS-CoV-2(COVID-19)mRNA-LNP vac([id number]) 05/08/23 Recorded pneumococcal 20-valent conjugate vaccine 1 [...] 02/03/23 Recorded zoster vaccine, inactivated 08/09/19 Recorded [id number] 12y+ bivalent booster vax 05/17/22 Recorded SARS-CoV-2 [...] adult vaccine 4 12/10/10 Given 1Result Comment: [id number] 2Result Comment: [id number] 3Admin Note: pt waited 10 mins post inj no adverse reaction noted.j a 4Admin Note: PT WAITED 10 MIN WITH NO ADVERSE REACTION. MH Medications aspirin 81 mg oral delayed release tablet 1 tablet, By Mouth, Daily, # 90 tablet, 1 Refills, Maintenance, 06/02/23 11:42:00 EST, [facility]/pharmacy#0843, 168, cm, 05/01/23 14:45:00 EDT, Height, 93, [...] capsule, 1 Refills, Maintenance, 06/30/23 7:20:00 EST, [facility], 168, cm, 05/01/23 14:45:00 EDT, Height, 93, kg, 01/28/22 14:55:00 EDT, Dry Weight Start Date: 06/30/23 Status: Ordered Daily Simone oral tablet 1 tablet, By Mouth, Daily, # 90 tablet, 1 Refills, Maintenance, 06/30/23 7:20:00 EST, [facility] 39346, 90, TAKE 1 TABLET BY MOUTH EVERY [...] Refills, Maintenance, 06/26/23 6:50:00 EST, [facility], 168, cm, 05/01/23 14:45:00 EDT, Height, 93, kg, 01/28/22 14:55:00 EDT, Dry Weight Start Date: 06/26/23 Status: Ordered folic acid 1 mg oral tablet 1, tablet, By Mouth, Daily, # 90 tablet, Refills 1, Tot. Refills 1, Maintenance, 07/03/23 10:01:00 EST, Route to Pharmacy Electronically, [facility]/pharmacy #0843, 168, cm, 05/01/23 14:45:00 [...] 01/21/19 11:25:36 EDT, Route to Pharmacy Electronically, [id number], [facility]/pharmacy #0843 Start Date: 01/21/19 Stop Date: 05/21/19 Status: Ordered lamotrigine 100 mg oral tablet Refills 0, Maintenance, 05/01/23 15:28:00 EDT, Partial fill upon patient request if the prescription is for a schedule II opioid drug. Start Date: 05/01/23 Status: Ordered lisinopril 40 mg oral tablet 1 tablet, By Mouth, Daily, # 90 tablet, 1 Refills, Maintenance, 08/17/23 13:33:00 EST, [facility]/pharmacy#0843, 168, cm, 07/23/23 15:05:00 EST, Height, 93, kg, 01/28/22 14:55:00 EDT, Dry Weight Start Date: 08/17/23 Status: Ordered Metoprolol Tartrate 50 mg oral tablet 1.5 tablet, By Mouth, 2 times a day, # 270 tablet, 1 Refills, Maintenance, 09/16/23 14:32:00 EDT, [facility]/pharmacy #0843, 168, cm, 07/23/23 15:05:00 EST, Height, 93, kg, 01/28/22 14:55:00 EDT, Dry Weight Start Date: 09/16/23 Status: Ordered Nicotine 7 mg/24 hour patch 1 patch, Topically, Daily, for 14 days, # 14 patch, 1 Refills, Acute 10/14/23 17:11:00 EDT, 09/16/23 17:11:00 EDT, Patch, [facility]/pharmacy #0843, Partial fill upon [...] tablet, 0 Refills, Maintenance, 10/03/22 15:53:00 EDT, [facility]/pharmacy #0843, 175, cm, 09/17/22 13:59:00 EDT, Height,... Start Date: 10/03/22 Status: Ordered NovoLOG FlexPen 100 units/mL injectable solution See Instructions, INJECT 0-18 UNITS SUBCUTANEOUSLY WITH MEALS FOR SLIDING SCALES, # 15 Unknown, 2 Refills, 11/07/22 0:09:00 EDT, [facility], 175, cm, 10/09/22 16:51:00 EDT, Height, 93, kg, 01/28/22 14:55:00 EDT, Dry Weight Start Date: 11/07/22 Status: Ordered Pen [place], 31 G x 5 mm BD Ultra [...] Refills, Maintenance, 03/29/23 14:43:00 EDT, [facility], 175, cm, 10/09/22 16:51:00 EDT, Height, 93, [...] 524 weeks therapy with sofosbuvir/weight based ribavirin 65868 inferolateral stent bare metal circumflex 7DR Moldverno [...] Name: Jeffrey Mccoy MD Position: Bob Renal MD Member Role: Lifetime Consulting Physician Address: Address: [address] [place] [address] [address] [facility] [place] [address]- Name: Kelly Butler NP Position: [facility] PCO Associate Professional Member Role: PCP Address: Address: [address] [place] [address]- Name: Kristin Mckenzie Position: [facility] Outreach Member Role: Lifetime Consulting Physician Name: Prieto Tobin RN Position: [facility] RN Member Role: Primary Care Nurse Name: Jonn Hui DO Position: [facility] Renal MD Member Role: Lifetime Consulting Physician Address: Address: [address] [place] [address] [address] [facility] [place], [place] - Name: Zafar CALVO, Luis Angel Rojas Position: [facility] RN Member Role: Primary Care Nurse Care Team Related Persons Name: CARLOS A BORDEN Address: home [address] [address] Name: LEVI BORDEN Address: home [address] [place] [address]
--- OUTSIDE RECORDS SUMMARY | 2024-06-01 12:02 | XMS_ITS | Continuity of Care Document ---
Author Organization [facility] Lazaro lt Address [address] [place] [address]- Care Team Providers Care Violin Restorer Name Role Phone Aylin HICKMAN, Ben Willis Primary Care Physician [phone] Encounter [facility] Date(s): 06/17/19 - 06/27/19 [facility] Nando Palominoley Adult [address] [place] [address]- [facility] Attending Physician: Admtr, Ar8 Admitting Physician: Admtr, [...] 10:48:07 EST, Aerosol, Route to Pharmacy Electronically, [id number], [facility]/pharmacy #0843, 180, cm, 06/17/19 10:36:11 [...] 05/09/19 9:31:26 EST, Route to Pharmacy Electronically, [id number], [facility]/pharmacy #0843 Start Date: 05/09/19 Status: Ordered Colace sodium 100 mg oral capsule 100 mg, 1, capsule, By Mouth, 2 times a day, PRN, # 60 capsule, Refills 5, Tot. Refills 5, Maintenance, for constipation, 04/25/19 13:50:52 EDT, Route to Pharmacy Electronically, [id number], [facility]/pharmacy #0843 Start Date: 04/25/19 Status: Ordered [...] 02/14/19 16:39:14 EDT, Route to Pharmacy Electronically, [id number], [facility]/pharmacy #0843 Start Date: 02/14/19 Status: Ordered [...] 01/21/19 11:25:36 EDT, Route to Pharmacy Electronically, [id number], [facility]/pharmacy #0843 Start Date: 01/21/19 Stop [...] 06/21/19 14:10:15 EST, Route to Pharmacy Electronically, [facility]/pharmacy #0843, 180, cm, 06/17/19 10:36:11 EST, Height Start Date: 06/21/19 Status: Ordered metoprolol 50 mg oral tablet 75 mg, 1.5, tablet, By Mouth, 2 times a day, stop metoprolol 50 mg twice daily, # 180 tablet, Refills 2, Tot. Refills 2, Maintenance, 02/28/19 16:02:16 EDT, Route to Pharmacy Electronically, [id number], [facility]/pharmacy #0843 Start Date: 02/28/19 Status: Ordered [...] PAIN CALL 911 IF PAIN NOT RELIEVED, [facility]/pharmacy #0843 Start Date: 02/17/19 Status: Ordered NovoLOG FlexPen 100 units/mL subcutaneous solution See Instructions, # 15 Unknown, Refills 5 Tot. Refills 5, INJECT 0-18 UNITS SUBCUTANEOUSLY WITH MEALS FOR SLIDING SCALES, [facility]/pharmacy #0843 Start Date: 01/04/19 Status: Ordered Pen [place], 31 G x 5 mm BD Ultra [...] 01/21/19 11:26:23 EDT, Route to Pharmacy Electronically, [id number], [facility]/pharmacy #0843 Start Date: 01/21/19 Status: Ordered [...] EST, Tablet, this was previously sent to [facility] Start Date: 05/17/19 Stop Date: 05/11/20 [...] 524 weeks therapy with sofosbuvir/weight based ribavirin 25715 inferolateral stent bare metal circumflex 7DR Molddoverno sx;Dr Schwartz 8repeat colonoscopy in 5 years Procedures Procedure Date Related Diagnosis Body Site Status Duplex scan of lower limb veins rt [...]
--- OUTSIDE RECORDS SUMMARY | 2024-06-01 12:02 | XMS_ITS | Continuity of Care Document ---
Author Organization [facility] Address [address] [place] [address]- Care Team Providers Care Circuit Manager Name Role Phone Aylin HICKMAN, Ben Willis Primary Care Physician [phone] Encounter [facility] Date(s): 05/27/21 - 06/26/21 [facility] [address] [place] [address]- Attending Physician: AdmRadha kate Admitting Physician: AdmtrRadha [...] post inj no adverse reaction noted.thierno kong 2Admin Note: PT WAITED 10 MIN WITH NO ADVERSE REACTION. Medications aspirin 81 mg oral delayed release tablet 1 tablet, By Mouth, Daily, # 30 tablet, 11 Refills, Maintenance, 06/26/20 12:19:00 EST, [facility], 175, cm, 06/25/20 16:11:00 EST, Height, 83.6, [...] Refills, Maintenance, 01/23/21 11:08:00 EDT, CR Capsule, [facility]/pharmacy #0843, 175.3, cm, 01/21/21 12:58:00 EDT, Height, 83.6, kg, 04/23/20 17:46:00EDT, Dry Weight Start Date: 01/23/21 Stop Date: 01/18/22 Status: Ordered cholecalciferol 2000 intl units oral capsule 1 capsule = 2,000 International_Units, By Mouth, Daily, # 30 capsule, 5 Refills, Maintenance, 05/15/21 13:02:00 EST, Capsule, [facility]/pharmacy #0843, 175.2, cm, 03/18/21 10:48:00 EDT, Height, 88.3, kg, 03/12/21 9:16:00 EDT, Dry Weight Start Date: 05/15/21 Status: Ordered cloNIDine 0.2 mg oral tablet 0.2 mg, 1, tablet, By Mouth, 2 times a day, # 60 tablet, Refills 5, Tot. Refills 5, Maintenance, 06/24/21 12:51:00 EST, Route to Pharmacy Electronically, [facility]/pharmacy #0843, 175.2, cm, 06/07/21 9:51:00 EST, Height, 88.3, kg, 03/12/21 9:16:00 EDT, Dry... Start Date: 06/24/21 Status: Ordered Daily Simone oral tablet 1 tablet, By Mouth, Daily, # 30 tablet, 5 Refills, Maintenance, 09/19/20 8:25:00 EDT, Tablet, [facility]/pharmacy #0843, 1 tablet By Mouth Daily,x30 days, 175, cm, 07/20/20 10:29:00 EST, Height, 83.6, kg, 04/23/20 17:46:00 EDT, Dry Weight Start Date: 09/19/20 Stop Date: 03/18/21 Status: Ordered docusate sodium 100 mg oral capsule 1 capsule, By Mouth, 2 times a day, PRN NEEDED FOR CONSTIPATION, # 60 capsule, 5 Refills, Maintenance, 06/05/21 15:57:00 EST, [facility]/pharmacy #0843, 175.2, cm, 05/27/21 11:26:00 EST, Height, 88.3, kg, 03/12/21 9:16:00 EDT, Dry Weight Start Date: 06/05/21 Status: Ordered folic acid 1 mg oral tablet 1, tablet, By Mouth, Daily, # 30 tablet, Refills 5, Tot. Refills 0, Maintenance, 01/18/21 14:44:00 EDT, Route to Pharmacy Electronically, [facility] STORE 26178, 175, cm, 12/24/20 11:20:00 EDT, Height, 83.6, [...] tablet, 5 Refills, Maintenance, 06/05/21 15:57:00 EST, [facility]/pharmacy #0843, 175.2, cm, 05/27/21 11:26:00 EST, Height, 88.3, kg, 03/12/21 9:16:00 EDT, Dry Weight Start Date: 06/05/21 Status: Ordered LaMICtal 100 mg oral tablet 100 mg, 1, tablet, By Mouth, 2 times a day, # 60 tablet, Refills 3, Tot. Refills 3, Maintenance, 01/21/19 11:25:36 EDT, Route to Pharmacy Electronically, [id number], [facility]/pharmacy #0843 Start Date: 01/21/19 [...] 3 Refills, Maintenance, 06/24/21 16:13:00 EST, Tablet, [facility]/pharmacy #0843, Partial fill upon patient request if the prescription is for a schedule II opioid drug., 175.2, cm, 06/07/21 9:51:00 EST, Height... Start Date: 06/24/21 Status: Ordered Metoprolol Tartrate 50 mg oral tablet See Instructions, TAKE 1 + 1/2 TABLETS BY MOUTH 2 TIMES A DAY, # 270 tablet, 0 Refills, 06/24/21 10:42:00 EST, [facility]/pharmacy #0843, 175.2, cm, 06/07/21 9:51:00 EST, Height, 88.3, kg, 03/12/21 9:16:00 EDT, Dry Weight Start Date: 06/24/21 Status: Ordered nicotine 2 mg oral transmucosal lozenge See Instructions, USE 1 LOZENGE UP TO EVERY 1 HOUR NEEDED FOR 10 DAYS, # 162 lozenge, 1 Refills,[facility] 611[facility], 10, USE 1 LOZENGE UP TO EVERY 1 HOUR NEEDED FOR 10 DAYS, 175.2, cm, 05/27/21 11:26:00 EST, Height, 88.3, kg, 03/12/21 9:16:00 EDT,... Start Date: 06/05/21 Status: Ordered nitroglycerin 0.4 mg sublingual tablet [...] SLIDING SCALES, # 15 Unknown, 2 Refills, [facility] 93702, 175.2, cm, 05/27/21 11:26:00 EST, Height, 88.3, kg, 03/12/21 9:16:00 EDT, Dry Weight Start Date: 06/04/21 Status: Ordered Pen [place], 31 G x 5 mm BD Ultra [...] 5 Refills, Maintenance, 06/10/21 12:32:00 EST, Capsule, [facility]/pharmacy #0843, 175.2, cm, 06/07/21 9:51:00 EST, Height, 88.3, kg, 03/12/21 9:16:00 EDT, Dry Weight Start Date: 06/10/21 Status: Ordered pregabalin 75 mg oral capsule 1 capsule = 75 mg, By Mouth, 2 times a day, # 60 capsule, 5 Refills, Maintenance, 06/07/21 13:14:00EST, Capsule, [facility]/pharmacy #0843, 175.2, cm, 06/07/21 9:51:00 EST, Height, 88.3, kg, 03/12/21 9:16:00 EDT, Dry Weight Start Date: 06/07/21 Status: Ordered rosuvastatin 20 mg oral tablet 1 tablet, By Mouth, Daily, # 90 tablet, 1 Refills, Maintenance, 01/08/21 14:43:00 EDT, [facility]/pharmacy#0843, 175, cm, 12/24/20 11:20:00 EDT, Height, 83.6, kg, 04/23/20 17:46:00 EDT, Dry Weight Start Date: 01/08/21 Status: Ordered SEROquel 100 mg oral tablet 100 mg, 1, tablet, By Mouth, 2 times a day, # 60 tablet, Refills 2, Tot. Refills 2, Maintenance, 09/21/19 10:41:00 EDT, Route to Pharmacy Electronically, [facility]/pharmacy #0843, 172, cm, 09/05/19 [...] of colon col onoscopy (Confirmed) 8, 9 6/8/16 Active Type 2 diabetes mellitus wit [...] 524 weeks therapy with sofosbuvir/weight based ribavirin 15244 inferolateral stent bare metal circumflex 7DR Molddoverno [...]
--- OUTSIDE RECORDS SUMMARY | 2024-06-01 12:02 | XMS_ITS | Continuity of Care Document ---
Author Organization [facility] Nando Escobar Lazaro lt Address [address] [place] [address]- Care Team Providers Care Freelance Data Entry Name Role Phone Carrie ASBESTOS SIDING MECHANICKelly Primary Care Physician [facility] Date(s): 01/30/22 - 03/01/22 [facility] Nando Escobar Adult [address] [place] [address]- Allergies, Adverse Reactions, Alerts Substance Reaction Severity [...] capsule, 5 Refills, Maintenance, 06/05/21 15:57:00 EST, [facility]/pharmacy #0843, 175.2, cm, 05/27/21 11:26:00 EST, Height, 88.3, kg, 03/12/21 9:16:00 EDT, Dry Weight Start Date: 06/05/21 Status: Ordered folic acid 1 mg oral tablet 1, tablet, By Mouth, Daily, # 30 tablet, Refills 5, Tot. Refills 5, Maintenance, 07/25/21 15:59:00 EST, Route to Pharmacy Electronically, [facility]/pharmacy #0843, 175.2, cm, 06/07/21 9:51:00 EST, [...] 01/21/19 11:25:36 EDT, Route to Pharmacy Electronically, [id number], [facility]/pharmacy #0843 Start Date: 01/21/19 Stop Date: 05/21/19 Status: Ordered lisinopril 40 mg oral tablet 1 tablet = 40 mg, By Mouth, Daily, # 30 tablet, 3 Refills, Maintenance, 09/17/21 10:50:00 EDT, Tablet, [facility]/pharmacy #0843, Partial fill upon patient request if the prescription is for a schedule II opioid drug., 175.2, cm, 07/31/21 11:20:00 EST, Heigh... Start Date: 09/17/21 Status: Ordered Metoprolol Tartrate 50 mg oral tablet 1.5 tablet, By Mouth, 2 times a day, # 270 tablet, 0 Refills, [facility], 175.2, cm, 11/15/21 11:18:00 EDT, Height, 88.3, kg, 03/12/21 9:16:00 EDT, Dry Weight Start Date: 12/12/21 Status: Ordered nicotine 21 mg/24 hr transdermal film, extended release 1 patch, Topically, Daily, for 30 days, # 30 patch, 1 Refills, Acute 04/18/22 14:19:00 EDT, 02/17/22 14:19:00 EDT, Patch, [facility]/pharmacy #0843, 1 patch Topically Daily,x30 days, [...] tablet, 0 Refills, Maintenance, 12/31/21 17:21:00 EDT, [facility]/pharmacy #0843, 175.2, cm, 12/18/21 14:10:00 EDT, Height... Start Date: 12/31/21 Status: Ordered NovoLOG FlexPen 100 units/mL injectable solution See Instructions, INJECT 0-18 UNITS SUBCUTANEOUSLY WITH MEALS FOR SLIDING SCALES, # 15 Unknown, 2 Refills, [facility]5445, 175.2, cm, 05/27/21 11:26:00 EST, Height, 88.3, kg, 03/12/21 9:16:00 EDT, Dry Weight Start Date: 06/04/21 Status: Ordered Pen [place], 31 G x 5 mm BD Ultra [...] capsule, 5 Refills, Maintenance, 11/19/21 11:25:00EDT, Capsule, [facility]/pharmacy #0843, 175.2, cm, 11/15/21 11:18:00 EDT, Height, 88.3, kg, 03/12/21 9:16:00 EDT, Dry Weight Start Date: 11/19/21 Status: Ordered rosuvastatin 20 mg oral tablet 1 tablet, By Mouth, Daily, # 90 tablet, 1 Refills, [facility] STORE 83854, 175, cm, 01/29/22 15:12:00 EDT,Height, 93, kg, 01/28/22 14:55:00 EDT, Dry Weight Start Date: 01/30/22 Status: Ordered SEROquel 100 mg oral tablet 100 mg, 1, tablet, By Mouth, 2 times a day, PRN, # 1 tablet, Refills 2, Tot. Refills 2, Maintenance, Anxiety, 09/21/19 10:41:00 EDT, Route to Pharmacy Electronically, [facility]/pharmacy #0843, 172, cm, 09/05/19 16:17:00 EST, [...] 3 Refills, Maintenance, 12/18/21 14:33:00 EDT, Suspension, [facility]/pharmacy #0843, 1 drops Eyes, Both 2 [...] # 30 capsule, 5 Refills, [facility], 175.2, cm, 11/15/21 11:18:00 EDT, Height, 88.3, kg, 03/12/21 9:16:00 EDT, Dry Weight Start Date: 11/17/21 Status: Ordered Problem List Condition Effective Dates Status Health Status Inform ant Bipolar disorder(Confirmed) Active Cervical spondylosis(Confirmed) Active Chronic back pain DJD(Confirmed) Active Glomerulonephritis,mesangial proliferative/fibrillary(Confirmed) 1, 2 Active Chronic renal failure, stage 4 (severe)(Confirmed) Active ASHD; [place] 2012/stent circumfl ex vessel cath;abdelrahman 2018(Confirmed) 3 [...] mild to moderate. 3MI 2012 circumflex stent 2013/[place] 4secondary to hep C 524 weeks therapy with sofosbuvir/weight based ribavirin 52355 inferolateral stent bare metal circumflex 7DR Molddoverno [...] Team Personnel Name: Kelly Butler NP Address: [address] [place] [phone]
--- OUTSIDE RECORDS SUMMARY | 2024-06-01 12:02 | XMS_ITS | Continuity of Care Document ---
Author Organization [facility] Shawn Lazaro lt Address [address] [place] [address]- Care Team Providers Care Sales Engineer Engineered Products Name Role Phone Ben Virea MD Primary Care Physician Encounter [facility] [place] Date(s): 10/24/19 - 11/26/19 [facility] Nando Escobar Adult [address] [place] [address]- [facility] Attending Physician: Ben Viera MD [...] 10:48:07 EST, Aerosol, Route to Pharmacy Electronically, [id number], [facility]/pharmacy #[id number], 180, cm, 06/17/19 10:36:11 EST, Height Start Date: 06/17/19 Status: Ordered aspirin 81 mg oral tablet 1 tablet = 81 mg, By Mouth, Daily, # 30 tablet, 11 Refills, Maintenance, 09/03/19 14:22:00 EST, Tablet, [facility]/pharmacy #[id number], 180, cm, 08/01/19 10:43:00 EST, Height [...] Refills, Maintenance, 08/16/19 14:00:00 EST, CR Capsule, [facility]/pharmacy #[id number], 172, cm, 08/11/19 13:32:00 EST, Height, 97.8, kg, 08/11/19 5:24:00 EST, Dry Weight Start Date: 08/16/19 Status: Ordered cholecalciferol 2000 intl units oral capsule 1 capsule = 2,000 International_Units, By Mouth, Daily, # 30 capsule, 5 Refills, Maintenance, 11/02/19 10:15:00 EDT, Capsule, [facility]/pharmacy #[id number], 172, cm, 09/05/19 16:17:00 EST, Height, 97.8, kg, 08/11/19 5:24:00 EST, Dry Weight Start Date: 11/02/19 Status: Ordered cloNIDine 0.2 mg oral tablet 0.2 mg, 1, tablet, By Mouth, 2 times a day, # 60 tablet, Refills 2, Tot. Refills 2, Maintenance, 10/25/19 10:20:00 EDT, Route to Pharmacy Electronically, [facility]/pharmacy #[id number], 172, cm, 09/05/19 16:17:00 EST, Height, 97.8, kg, 08/11/19 5:24:00 EST, Dry W... Start Date: 10/25/19 Status: Ordered Colace sodium 100 mg oral capsule 100 mg, 1, capsule, By Mouth, 2 times a day, PRN, # 60 capsule, Refills 5, Tot. Refills 5, Maintenance, for constipation, 04/25/19 13:50:52 EDT, Route to Pharmacy Electronically, [id number], [facility]/pharmacy #[id number] Start Date: 04/25/19 Status: Ordered Crestor 20 mg oral tablet 1 tablet = 20 mg, By Mouth, Daily, # 90 tablet, 3 Refills, Maintenance, 10/25/19 11:14:00 EDT, Tablet, [facility]/pharmacy #[id number], 172, cm, 09/05/19 16:17:00 EST, Height, 97.8, kg, 08/11/19 5:24:00 EST, Dry Weight Start Date: 10/25/19 Status: Ordered Daily Simone oral tablet 1 tablet, By Mouth, Daily, # 30 tablet, 5 Refills, Maintenance, 09/21/19 10:41:00 EDT, Tablet, [facility]/pharmacy #[id number], 1 tablet By Mouth Daily,x30 days, 172, cm, 09/05/19 16:17:00 EST, Height, 97.8, kg, 08/11/19 5:24:00 EST, Dry Weight Start Date: 09/21/19 Stop Date: 03/19/20 Status: Ordered folic acid 1 mg oral tablet 1 mg, 1, tablet, By Mouth, Daily, # 30 tablet, Refills 11, Tot. Refills 11, Maintenance, 02/14/19 16:39:14 EDT, Route to Pharmacy Electronically, [id number], [facility]/pharmacy #[id number] Start Date: 02/14/19 Status: Ordered Freestyle [...] 01/21/19 11:25:36 EDT, Route to Pharmacy Electronically, [id number], [facility]/pharmacy #[id number] Start Date: 01/21/19 [...] 11/25/19 16:21:00 EDT, [facility] Electronically, [facility] [...] 08/26/19 9:30:00 EST, Route to Pharmacy Electronically, [facility]/pharmacy #[id number], 172, cm, 08/23/19 10:02:00 EST, Height, 9... Start Date: 08/26/19 Status: Ordered nicotine 4 mg oral transmucosal lozenge 1 lozenge = 4 mg, By Mouth, Every hour, # 132 lozenge, 1 Refills, Maintenance, 10/05/19 11:01:00 EDT, [facility]/pharmacy #[id number], 1 lozenge By Mouth Every hour, [...] #[id number] Start Date: 01/04/19 Status: Ordered Pen [place], 31 G x 5 mm BD Ultra [...] mL, 5 Refills, Maintenance, 08/04/19 13:13:00 EST, [facility]/pharmacy #[id number], 180, cm, 08/01/19 10:43:00 EST, Height Start Date: 08/04/19 Status: Ordered Problem List Condition Effective Dates Status Health Status Inform ant Acute pancreatitis(Confirmed) 07/16/16 Active Adenomatous colon polyp(Confirmed) Active Bipolar disorder(Confirmed) Active Cervical spondylosis(Confirmed) Active Chronic back pain opiates pe r physiatry(Confirmed) Active Glomerulonephritis,mesangial proliferative/fibrillary(Confirmed) 1, 2 Active Chronic renal impairment, st age 3 (moderate)(Confirmed) Active ASHD; [place] 2012/stent circumfl ex vessel [...] mild to moderate. 3MI 2012 circumflex stent [place] 4secondary to hep C 524 weeks therapy with sofosbuvir/weight based ribavirin 15766 inferolateral stent bare metal circumflex 7DR Moldverno sx;Dr Schwartz 8repeat colonoscopy in 5 years Social History Social History Type Response Smoking Status Former smoker, quit more than 30 days ago entered on: 12/22/18 Sex
--- OUTSIDE RECORDS SUMMARY | 2024-06-01 12:02 | XMS_ITS | Continuity of Care Document ---
Author Organization [facility] ter Address [address] [place] [address]- Care Team Providers Care Regional Forester Name Role Phone Aylin HICKMAN, Ben Willis Primary Care Physician [phone] [facility] 01/21/21 - 01/21/[address] [address]- Discharge Disposition: A-D/C Home Attending Physician: Luca Augustin MD Admitting Physician: Luca Augustin MD Referring Physician: Luca Augustin MD Allergies, Adverse Reactions, Alerts Substance Reaction [...] 10:48:07 EST, Aerosol, Route to Pharmacy Electronically, [id number], [facility]/pharmacy #[id number], 180, cm, 06/17/19 10:36:11 EST, Height Start Date: 06/17/19 Status: Ordered aspirin 81 mg oral delayed release tablet 1 tablet, By Mouth, Daily, # 30 tablet, 11 Refills, Maintenance, 06/26/20 12:19:00 EST, [id number], 175, cm, 06/25/20 16:11:00 EST, Height, 83.6, [...] Refills, Maintenance, 01/02/20 15:47:00 EDT, CR Capsule, [facility]/pharmacy #[id number], 172, cm, 12/14/19 8:02:00 EDT, Height, [...] 09/09/20 19:43:00 EST, Route to Pharmacy Electronically, [facility]/pharmacy #[id number], 175, cm, 07/20/20 10:29:00 EST, Height, 83.6, kg, 04/23/20 17:46:00 EDT, Dry... Start Date: 09/09/20 Status: Ordered Colace sodium 100 mg oral capsule 100 mg, 1, capsule, By Mouth, 2 times a day, PRN, # 60 capsule, Refills 5, Tot. Refills 5, Maintenance, for constipation, 02/27/20 15:25:00 EDT, Route to Pharmacy Electronically, [facility]/pharmacy #[id number], 172, cm, 12/14/19 8:02:00 EDT, Height, 97.8, kg, 02/... Start Date: 02/27/20 Status: Ordered Daily Simone oral tablet 1 tablet, By Mouth, Daily, # 90 tablet, 3 Refills, Maintenance, 09/21/20 11:35:00 EDT, Tablet, [facility]/pharmacy [...] Electronically, [id number], 175, cm, 12/24/20 11:20:00 EDT, Height, 83.6, [...] finished, # 4,000 mL, 0 Refills, Maintenance, 01/15/21 10:51:00 EDT, [facility]/pharmacy #[id number], procedure is 01/21, 1 glass every 15-30 minutes until finished, 175, cm, 12/24/20 11:20:00 EDT, Height, 83.6, k... Start Date: 01/15/21 Status: Ordered Marian-kermit 8.6 mg oral tablet 2 tablet = 17.2 mg, By Mouth, Daily at bedtime, # 60 tablet, 5 Refills, Maintenance, 02/27/20 15:23:00 EDT, [facility]/pharmacy #[id number], 172, cm, 12/14/19 8:02:00 EDT, Height, 97.8, kg, 08/11/19 5:24:00 EST, Dry Weight Start Date: 02/27/20 Status: Ordered Golytely - oral powder for reconstitution 240 mL, By Mouth, Daily, bowel instruction, # 4,000 mL, 0 Refills, Maintenance, 06/21/20 16:44:00 EST, REC Powder, [facility]/pharmacy #[id number], Partial fill upon patient request if the prescription is for a schedule II opioid drug., 240 mL By Mouth Daily,Instr... Start Date: 06/21/20 Status: Ordered LaMICtal 100 mg oral tablet 100 mg, 1, tablet, By Mouth, 2 times a day, # 60 tablet, Refills 3, Tot. Refills 3, Maintenance, 01/21/19 11:25:36 EDT, Route to Pharmacy Electronically, [id number], [facility]/pharmacy #[id number] Start [...] tablet, 0 Refills, Maintenance, 11/16/20 11:46:00 EDT, [facility] STORE [id number], 175, cm, 09/21/20 11:29:00 EDT, Height, 83.6, kg, 04/23/20 17:46:00 EDT, Dry Weight Start Date: 11/16/20 Status: Ordered nicotine 2 mg oral transmucosal lozenge See Instructions, suck, up to q1 hrs 10 daily, # 162 lozenge, 1 Refills, Maintenance, 12/12/20 14:39:00 EDT, [facility]/pharmacy #[id number], suck, up to q1 hrs 10 daily, 175, cm, 09/21/20 11:29:00 EDT, Height, 83.6, kg, 04/23/20 17:46:00 EDT, Dry Weight Start Date: 12/12/20 Status: Ordered nicotine 4 mg oral transmucosal lozenge 1 lozenge = 4 mg, By Mouth, Every hour, dispense 2 boxes of 81 count as directed on package labeling, # 162 lozenge, 3 Refills, Maintenance, 09/25/20 14:39:00 EDT, [facility]/pharmacy #[id number], 1 lozenge By Mouth Every hour,Instr:dispense [...] 2 Refills, Soft Stop, 06/01/20 13:51:00 EST, [facility]/pharmacy #[id number], 175, cm, 05/24/20 12:46:00 EST, Height, [...] 9:13:... Start Date: 02/01/20 Status: Ordered Pen [place], 31 G x 5 mm BD Ultra [...] long-term use(Confirmed) Active Dysphagia(Confirmed) Active Ex-smoker quit 2018/[facility] t enrolled(Confirmed) Active Fibrillary glomerulonephritis(Confirmed) 4 Active [...] Active Tubular adenoma of colon col onoscopy 2016(Confirmed) 8 12/12/15 Active Type 2 diabetes mellitus [...] mild to moderate. 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 2012/[place] 4secondary to hep C 524 weeks therapy with sofosbuvir/weight based ribavirin 40590 inferolateral stent bare metal circumflex 7DR Molddoverno sx;Dr Schwartz 8repeat colonoscopy in 5 years Procedures Procedure Date Related Diagnosis Body Site Status Esophagogastroduodenoscopy and biopsy 01/21/21 Completed Vital Signs Most recent to oldest [Reference Range]: 1 2 3 Height 175.3 cm (01/21/21 12:58 PM) Weight 83.6 kg (01/21/21 12:58 PM) Oxygen Saturation [94-100 %] 100 % (01/21/21 2:08 PM) 100 % (01/21/21 1:59 PM) 98 % (01/21/21 12:58 PM) Pulse Rate [55-90 bpm] 58 bpm (01/21/21 12:58 PM) Body Mass Index [18.5-24.99] 27.2 *H* (01/21/21 12:58 PM) Blood Pressure [90-138/55-84 mm Hg] 143/73mm Hg *H* (01/21/21 2:08 PM) 149/71mm Hg *H* (01/21/21 1:59 PM) 143/61mm Hg *H* (01/21/21 12:58 PM) Respiratory Rate [16-30 br/min] 17 br/min (01/21/21 2:08 PM) 21 br/min (01/21/21 1:59 PM) 18 br/min (01/21/21 12:58 PM) Temperature [96.8-100.4 DegF] 97.4 DegF (01/21/21 12:58 PM) Mode of Delivery (Oxygen) Room air (01/21/21 2:08 PM) Room air (01/21/21 1:59 PM) Room air (01/21/21 12:58 PM) Temperature Route Temporal (01/21/21 12:58 PM) Social History Social History Type Response Smoking Status Former smoker, quit more than 30 days ago; Interested in cessation: No; Other: quit; Tobacco use times per day: prio 1/2-1 ppd; Total pack years: 38; Started at age: 12; Stopped at age: 63; entered on: 07/20/20 Sex
--- OUTSIDE RECORDS SUMMARY | 2024-06-01 12:02 | XMS_ITS | Continuity of Care Document ---
Author Organization [facility] Shawn Lazaro lt Address [address] [place] [address]- Care Team Providers Care Endocrinologist Name Role Phone Aylin HICKMAN, Ben Willis Primary Care Physician Encounter [facility] [place] Date(s): 10/16/21 - 11/15/21 [facility] Adult [address] [place] [address]- Allergies, Adverse Reactions, Alerts Substance Reaction Severity [...] Refills, Maintenance, 01/23/21 11:08:00 EDT, CR Capsule, [facility]/pharmacy #[id number], 175.3, cm, 01/21/21 12:58:00 EDT, Height, 83.6, kg, 04/23/20 17:46:00EDT, Dry Weight Start Date: 01/23/21 Stop Date: 01/18/22 Status: Ordered cholecalciferol 2000 intl units oral capsule 1 capsule = 2,000 International_Units, By Mouth, Daily, # 30 capsule, 5 Refills, Maintenance, 05/15/21 13:02:00 EST, Capsule, [id number], 175.2, cm, 03/18/21 10:48:00 EDT, [...] 07/25/21 15:59:00 EST, [id number] 175.2, cm, 06/07/21 9:51:00 EST, Height, [...] tablet, 5 Refills, Maintenance, 06/05/21 15:57:00 EST, [id number], 175.2, cm, 05/27/21 11:26:00 EST, Height, 88.3, kg, 03/12/21 9:16:00 EDT, Dry Weight Start Date: 06/05/21 Status: Ordered LaMICtal 100 mg oral tablet 100 mg, 1, tablet, By Mouth, 2 times a day, # 60 tablet, Refills 3, Tot. Refills 3, Maintenance, 01/21/19 11:25:36 EDT, Route to Pharmacy Electronically, [id number], [facility]/pharmacy #[id number] Start [...] 3 Refills, Maintenance, 09/17/21 10:50:00 EDT, Tablet, [id number], Partial fill upon [...] 10 DAYS, # 162 lozenge, 0 Refills,Maintenance, 11/15/21 11:20:00 EDT, [facility]/pharmacy #[id number], 16, USE 1 LOZENGE UP TO EVERY 1 HOUR NEEDED FOR 10 DAYS, 175.2, cm, 11/15/21 11:18:00 EDT, H... Start Date: 11/15/21 Status: Ordered nitroglycerin 0.4 mg sublingual tablet [...] Refills, [facility] STORE [id number], 175.2, cm, 05/27/21 11:26:00 EST, Height, 88.3, kg, 03/12/21 9:16:00 EDT, Dry Weight Start Date: 06/04/21 Status: Ordered Pen [place], 31 G x 5 mm BD Ultra [...] capsule, 5 Refills, Maintenance, 06/07/21 13:14:00EST, Capsule, [facility]/pharmacy #[id number], [...] 0 Refills, Maintenance, 11/12/21 16:48:00 EDT, Suspension, [facility]/pharmacy [...] # 9 Unknown, 1 Refills, [facility], 175.2, cm, 07/31/21 11:20:00 EST, Height, 88.3, kg, 03/12/21 9:16:... Start Date: 08/29/21 Status: Ordered Trulicity Pen 0.75 mg/0.5 mL subcutaneous solution 0.5 mL = 0.75 mg, Subcutaneous Injection, Every week, # 2.5 mL, 5 Refills, Maintenance, 11/15/21 11:40:00 EDT, Solution, Partial fill upon patient request if the prescription is for a schedule II opioid drug. Start Date: 11/15/21 Status: Ordered Problem List Condition Effective Dates Status Health Status Inform ant Bipolar disorder(Confirmed) Active Cervical spondylosis(Confirmed) Active Chronic back pain DJD(Confirmed) Active Glomerulonephritis,mesangial proliferative/fibrillary(Confirmed) 1, 2 Active Chronic renal failure, stage 4 (severe)(Confirmed) Active ASHD; [place] 2012/stent circumfl ex vessel cath;abdelrahman 2018(Confirmed) 3 [...] Active LVH (left ventricular hypert rophy) echo(Confirmed) 6/1/17 Active Low back pain(Confirmed) Active Lumbar spondylosis(Confirmed) [...] 524 weeks therapy with sofosbuvir/weight based ribavirin 46258 inferolateral stent bare metal circumflex 7DR Marissa [...]
--- OUTSIDE RECORDS SUMMARY | 2024-06-01 12:02 | XMS_ITS | Continuity of Care Document ---
Author Organization [facility] Shawn Lazaro lt Address [address] [place] [address]- Care Team Providers Care Supervisor Cabinetmaker Name Role Phone Aylin HICKMAN, Ben Willis Primary Care Physician Encounter [facility] Date(s): 07/11/21 - 08/10/21 [facility] Adult [address] [place] [address]- Allergies, Adverse Reactions, Alerts Substance Reaction Severity [...] tablet, 5 Refills, Maintenance, 07/25/21 10:21:00 EST, [facility]/pharmacy#[id number], 175.2, cm, 06/07/21 9:51:00 EST, [...] Refills, Maintenance, 01/23/21 11:08:00 EDT, CR Capsule, [facility]/pharmacy #[id number], 175.3, cm, 01/21/21 12:58:00 EDT, Height, 83.6, kg, 04/23/20 17:46:00EDT, Dry Weight Start Date: 01/23/21 Stop Date: 01/18/22 Status: Ordered cholecalciferol 2000 intl units oral capsule 1 capsule = 2,000 International_Units, By Mouth, Daily, # 30 capsule, 5 Refills, Maintenance, 05/15/21 13:02:00 EST, Capsule, [facility]/pharmacy #[id number], 175.2, cm, 03/18/21 10:48:00 EDT, Height, 88.3, kg, 03/12/21 9:16:00 EDT, Dry Weight Start Date: 05/15/21 Status: Ordered cloNIDine 0.2 mg oral tablet 0.2 mg, 1, tablet, By Mouth, 2 times a day, # 60 tablet, Refills 5, Tot. Refills 5, Maintenance, 06/24/21 12:51:00 EST, Route to Pharmacy Electronically, [facility]/pharmacy #[id number], 175.2, cm, 06/07/21 9:51:00 EST, Height, 88.3, kg, 03/12/21 9:16:00 EDT, Dry... Start Date: 06/24/21 Status: Ordered Daily Simone oral tablet 1 tablet, By Mouth, Daily, # 30 tablet, 5 Refills, Maintenance, 07/29/21 13:53:00 EST, Tablet, [facility]/pharmacy #[id number], 1 tablet By Mouth Daily,x30 days, 175.2, cm, 06/07/21 9:51:00 EST, Height, 88.3, kg,03/12/21 9:16:00 EDT, Dry Weight Start Date: 07/29/21 Stop Date: 01/25/22 Status: Ordered docusate sodium 100 mg oral capsule 1 capsule, By Mouth, 2 times a day, PRN NEEDED FOR CONSTIPATION, # 60 capsule, 5 Refills, Maintenance, 06/05/21 15:57:00 EST, [facility]/pharmacy #[id number], 175.2, cm, 05/27/21 11:26:00 EST, Height, 88.3, kg, 03/12/21 9:16:00 EDT, Dry Weight Start Date: 06/05/21 Status: Ordered folic acid 1 mg oral tablet 1, tablet, By Mouth, Daily, # 30 tablet, Refills 5, Tot. Refills 5, Maintenance, 07/25/21 15:59:00 EST, Route to Pharmacy Electronically, [facility]/pharmacy #[id number], 175.2, cm, 06/07/21 9:51:00 [...] tablet, 5 Refills, Maintenance, 06/05/21 15:57:00 EST, [facility]/pharmacy #[id number], 175.2, cm, 05/27/21 11:26:00 EST, Height, 88.3, kg, 03/12/21 9:16:00 EDT, Dry Weight Start Date: 06/05/21 Status: Ordered LaMICtal 100 mg oral tablet 100 mg, 1, tablet, By Mouth, 2 times a day, # 60 tablet, Refills 3, Tot. Refills 3, Maintenance, 01/21/19 11:25:36 EDT, Route to Pharmacy Electronically, [id number], [facility]/pharmacy #[id number] Start Date: 01/21/19 [...] 3 Refills, Maintenance, 06/24/21 16:13:00 EST, Tablet, [facility]/pharmacy #[id number], Partial fill upon patient request if the prescription is for a schedule II opioid drug., 175.2, cm, 06/07/21 9:51:00 EST, Height... Start Date: 06/24/21 Status: Ordered Metoprolol Tartrate 50 mg oral tablet See Instructions, TAKE 1 + 1/2 TABLETS BY MOUTH 2 TIMES A DAY, # 270 tablet, 0 Refills, 06/24/21 10:42:00 EST, [facility]/pharmacy #[id number], 175.2, cm, 06/07/21 9:51:00 EST, Height, 88.3, kg, 03/12/21 9:16:00 EDT, Dry Weight Start Date: 06/24/21 Status: Ordered nicotine 2 mg oral transmucosal lozenge See Instructions, USE 1 LOZENGE UP TO EVERY 1 HOUR NEEDED FOR 10 DAYS, # 162 lozenge, 0 Refills,Maintenance, 08/06/21 13:47:00 EST, [facility]/pharmacy #[id number], 10, USE 1 LOZENGE UP TO EVERY 1 HOUR NEEDED FOR 10 DAYS, 175.2, cm, 07/31/21 11:20:00 EST, H... Start Date: 08/06/21 Status: Ordered nitroglycerin 0.4 mg sublingual tablet 1 tablet = 0.4 mg, Sublingual, Every 5 minutes, PRN for chest pain, call MD after taking 3 tabs in total in a day, # 100 tablet, 0 Refills, Maintenance, 08/01/21 12:53:00 EST, Tablet, [facility]/pharmacy #[id number], 175.2, cm, 07/31/21 11:20:00 EST, Height, 88.3,... Start Date: 08/01/21 Status: Ordered NovoLOG FlexPen 100 units/mL injectable solution See Instructions, INJECT 0-18 UNITS SUBCUTANEOUSLY WITH MEALS FOR SLIDING SCALES, # 15 Unknown, 2 Refills, [id number], 175.2, cm, 05/27/21 11:26:00 EST, Height, 88.3, kg, 03/12/21 9:16:00 EDT, Dry Weight Start Date: 06/04/21 Status: Ordered Pen [place], 31 G x 5 mm BD Ultra [...] 5 Refills, Maintenance, 06/10/21 12:32:00 EST, Capsule, [facility]/pharmacy #[id number], 175.2, cm, 06/07/21 9:51:00 EST, Height, 88.3, kg, 03/12/21 9:16:00 EDT, Dry Weight Start Date: 06/10/21 Status: Ordered pregabalin 75 mg oral capsule 1 capsule = 75 mg, By Mouth, 2 times a day, # 60 capsule, 5 Refills, Maintenance, 06/07/21 13:14:00EST, Capsule, [facility]/pharmacy #[id number], 175.2, cm, 06/07/21 9:51:00 EST, Height, 88.3, kg, 03/12/21 9:16:00 EDT, Dry Weight Start Date: 06/07/21 Status: Ordered rosuvastatin 20 mg oral tablet 1 tablet, By Mouth, Daily, # 90 tablet, 1 Refills, Maintenance, 01/08/21 14:43:00 EDT, [facility]/pharmacy#[id number], 175, cm, 12/24/20 11:20:00 EDT, Height, [...] Active Glomerulonephritis,mesangial proliferative/fibrillary(Confirmed) 1, 2 Active ASHD; [place] 2012/stent circumfl ex vessel cath;abdelrahman 2018(Confirmed) 3 [...] mild to moderate. 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
--- OUTSIDE RECORDS SUMMARY | 2024-06-01 12:02 | XMS_ITS | Continuity of Care Document ---
Author Organization [facility] Shawn Lazaro lt Address [address] [place] [address]- Care Team Providers Care Chemical Equipment Controller Name Role Phone Aylin HICKMAN, Ben Willis Primary Care Physician [phone] Encounter [facility] Date(s): 04/02/20 - 05/02/20 [facility] Adult [address] [place] [address]- [facility] Allergies, Adverse Reactions, Alerts Substance Reaction Severity [...] 10:48:07 EST, Aerosol, Route to Pharmacy Electronically, [id number], [facility]/pharmacy #[id number], 180, cm, 06/17/19 10:36:11 EST, Height Start Date: 06/17/19 Status: Ordered aspirin 81 mg oral tablet 1 tablet = 81 mg, By Mouth, Daily, # 30 tablet, 11 Refills, Maintenance, 09/03/19 14:22:00 EST, Tablet, [facility]/pharmacy #[id number], 180, cm, 08/01/19 10:43:00 EST, [...] Refills, Maintenance, 01/02/20 15:47:00 EDT, CR Capsule, [facility]/pharmacy #[id number], 172, cm, 12/14/19 8:02:00 EDT, Height, 97.8, kg, 08/11/19 5:24:00 EST, Dry Weight Start Date: 01/02/20 Stop Date: 12/27/20 Status: Ordered cholecalciferol 2000 intl units oral capsule 1 capsule = 2,000 International_Units, By Mouth, Daily, # 30 capsule, 5 Refills, Maintenance, 11/02/19 10:15:00 EDT, Capsule, [facility]/pharmacy #[id number], 172, cm, 09/05/19 16:17:00 EST, Height, 97.8, kg, 08/11/19 5:24:00 EST, Dry Weight Start Date: 11/02/19 Status: Ordered cloNIDine 0.2 mg oral tablet 0.2 mg, 1, tablet, By Mouth, 2 times a day, # 60 tablet, Refills 2, Tot. Refills 2, Maintenance, 03/08/20 16:50:00 EDT, Route to Pharmacy Electronically, [facility]/pharmacy #[id number], 172, cm, 12/14/19 8:02:00EDT, Height, 97.8, kg, 08/11/19 5:24:00 EST, Dry We... Start Date: 03/08/20 Status: Ordered Colace sodium 100 mg oral capsule 100 mg, 1, capsule, By Mouth, 2 times a day, PRN, # 60 capsule, Refills 5, Tot. Refills 5, Maintenance, for constipation, 02/27/20 15:25:00 EDT, Route to Pharmacy Electronically, [facility]/pharmacy #[id number], 172, cm, 12/14/19 8:02:00 EDT, Height, 97.8, kg, ... Start Date: 02/27/20 Status: Ordered Crestor 20 mg oral tablet 1 tablet = 20 mg, By Mouth, Daily, # 90 tablet, 3 Refills, Maintenance, 01/02/20 15:46:00 EDT, Tablet, [facility]/pharmacy #[id number], 172, cm, 12/14/19 8:02:00 EDT, Height, 97.8, kg, 08/11/19 5:24:00 EST, Dry Weight Start Date: 01/02/20 Status: Ordered Daily Simone oral tablet 1 tablet, By Mouth, Daily, # 30 tablet, 5 Refills, Maintenance, 03/01/20 14:48:00 EDT, Tablet, [facility]/pharmacy #[id number], 1 tablet By Mouth Daily,x30 days, 172, cm, 12/14/19 8:02:00 EDT, Height, 97.8, kg, 08/11/19 5:24:00 EST, Dry Weight Start Date: 03/01/20 Stop Date: 08/28/20 Status: Ordered folic acid 1 mg oral tablet 1 mg, 1, tablet, By Mouth, Daily, # 30 tablet, Refills 5, Tot. Refills 5, Maintenance, 12/29/19 11:13:00 EDT, Route to Pharmacy Electronically, [facility]/pharmacy #[id number], 172, cm, 12/14/19 8:02:00 EDT, [...] tablet, 5 Refills, Maintenance, 02/27/20 15:23:00 EDT, [facility]/pharmacy #[id number], 172, cm, 12/14/19 8:02:00 EDT, Height, 97.8, kg, 08/11/19 5:24:00 EST, Dry Weight Start Date: 02/27/20 Status: Ordered LaMICtal 100 mg oral tablet 100 mg, 1, tablet, By Mouth, 2 times a day, # 60 tablet, Refills 3, Tot. Refills 3, Maintenance, 01/21/19 11:25:36 EDT, Route to Pharmacy Electronically, [id number], [facility]/pharmacy #[id number] Start Date: 01/21/19 Stop Date: 05/21/19 Status: Ordered latanoprost 0.005% ophthalmic solution 1 drops, Eyes, Both, Daily at bedtime, # 3 mL, 0 Refills, Maintenance, 02/02/19 16:23:39 EDT, OphthSolution, 1 drops Eyes, Both Daily at bedtime Start Date: 02/02/19 Status: Ordered metoprolol 50 mg oral tablet 75 mg, 1.5, tablet, By Mouth, 2 times a day, stop metoprolol 50 mg twice daily, # 180 tablet, Refills 2, Tot. Refills 2, Maintenance, 01/02/20 15:45:00 EDT, Route to Pharmacy Electronically, [facility]/pharmacy #[id number], 172, cm, 12/14/19 8:02:00 EDT, [...] lozenge, 1 Refills, Maintenance, 11/29/19 8:13:00 EDT, [facility]/pharmacy #[id number], 1 lozenge By Mouth Every [...] PAIN CALL 911 IF PAIN NOT RELIEVED, [facility]/pharmacy #[id number] Start Date: 02/17/19 Status: Ordered NovoLOG FlexPen 100 units/mL subcutaneous solution See Instructions, INJECT 0-18 UNITS SUBCUTANEOUSLY WITH MEALS FOR SLIDING SCALES, # 15 Unknown, 5 Refills, Soft Stop, 02/01/20 9:13:00 EDT, [facility]/pharmacy #[id number], 172, cm, 12/14/19 8:02:00 EDT, Height, 97.8, kg, 08/11/19 5:24:00 EST, Dry Weight Start Date: 02/01/20 Status: Ordered Ozempic (0.25 mg or 0.5 mg dose) 2 mg/1.5 mL subcutaneous solution See Instructions, INJECT 0.25 MG SUBCUTANEOUSLY WEEKLY, # 1.5 Unknown, 0 Refills, Maintenance, [id number], 172, cm, 12/14/19 8:02:00 EDT, Height, 97.8, kg, 08/11/19 5:24:00 EST, Dry Weight Start Date: 02/09/20 Status: Ordered Pen [place], 31 G x [...] 09/21/19 10:41:00 EDT, Route to Pharmacy Electronically, [facility]/pharmacy #[id number], 172, cm, 09/05/19 16:17:00 EST, [...] EST, Tablet, this was previously sent to [facility] pharmacy Start Date: 05/17/19 Stop Date: 05/11/20 Status: Ordered Tresiba FlexTouch 200 units/mL subcutaneous solution = 90 units, Subcutaneous Infusion, Daily, at bedtime, # 15 mL, 5 Refills, Maintenance, 08/04/19 13:13:00 EST, [facility]/pharmacy #[id number], 180, cm, 08/01/19 10:43:00 EST, Height Start Date: 08/04/19 Status: Ordered Problem List Condition Effective Dates Status Health Status Inform ant Acute pancreatitis(Confirmed) 07/16/16 Active Adenomatous colon polyp(Confirmed) Active Bipolar disorder(Confirmed) Active Cervical spondylosis(Confirmed) Active Chronic back pain DJD(Confirmed) Active Glomerulonephritis,mesangial proliferative/fibrillary(Confirmed) 1, 2 Active ASHD; [place] 2012/stent circumfl ex vessel cath;abdelrahman 2018(Confirmed) 3 Active Epididymal cyst rt(Confirmed) 04/18/19 Active Low serum vitamin D(Confirmed) Active Dizzinesses(Confirmed) Active Insulin long-term use(Confirmed) Active Dysphagia(Confirmed) Active Ex-smoker quit 2018 t enrolled(Confirmed) Active Fibrillary glomerulonephritis(Confirmed) 4 Active [...] mild to moderate. 3MI 2012 circumflex stent [place] 4secondary to hep C 524 weeks therapy with sofosbuvir/weight based ribavirin 96425 inferolateral stent bare metal circumflex 7DR Marissa [...]
--- OUTSIDE RECORDS SUMMARY | 2024-06-01 12:02 | XMS_ITS | Continuity of Care Document ---
Author Organization [facility] Shawn Lazaro lt Address [address] [place] [address]- Care Team Providers Care Automotive Tire Technician Name Role Phone Aylin HICKMAN, Ben Willis Primary Care Physician [phone] [place] [facility] [place] 08[place]21 [facility] Adult [address] [place] [address]- Allergies, Adverse Reactions, Alerts Substance Reaction Severity [...] tablet, 5 Refills, Maintenance, 07/25/21 10:21:00 EST, [facility]/pharmacy#[id number], 175.2, cm, 06/07/21 9:51:00 EST, Height, 88.3, [...] Refills, Maintenance, 01/23/21 11:08:00 EDT, CR Capsule, [facility]/pharmacy #[id number], 175.3, cm, 01/21/21 12:58:00 EDT, Height, 83.6, kg, 04/23/20 17:46:00EDT, Dry Weight Start Date: 01/23/21 Stop Date: 01/18/22 Status: Ordered cholecalciferol 2000 intl units oral capsule 1 capsule = 2,000 International_Units, By Mouth, Daily, # 30 capsule, 5 Refills, Maintenance, 05/15/21 13:02:00 EST, Capsule, [facility]/pharmacy #[id number], 175.2, cm, 03/18/21 10:48:00 EDT, Height, 88.3, kg, 03/12/21 9:16:00 EDT, Dry Weight Start Date: 05/15/21 Status: Ordered cloNIDine 0.2 mg oral tablet 0.2 mg, 1, tablet, By Mouth, 2 times a day, # 60 tablet, Refills 5, Tot. Refills 5, Maintenance, 06/24/21 12:51:00 EST, Route to Pharmacy Electronically, [facility]/pharmacy #[id number], 175.2, cm, 06/07/21 9:51:00 EST, Height, 88.3, kg, 03/12/21 9:16:00 EDT, Dry... Start Date: 06/24/21 Status: Ordered Daily Simone oral tablet 1 tablet, By Mouth, Daily, # 30 tablet, 5 Refills, Maintenance, 07/29/21 13:53:00 EST, Tablet, [facility]/pharmacy #[id number], 1 tablet By Mouth Daily,x30 days, 175.2, cm, 06/07/21 9:51:00 EST, Height, 88.3, kg,03/12/21 9:16:00 EDT, Dry Weight Start Date: 07/29/21 Stop Date: 01/25/22 Status: Ordered docusate sodium 100 mg oral capsule 1 capsule, By Mouth, 2 times a day, PRN NEEDED FOR CONSTIPATION, # 60 capsule, 5 Refills, Maintenance, 06/05/21 15:57:00 EST, [facility]/pharmacy #[id number], 175.2, cm, 05/27/21 11:26:00 EST, Height, 88.3, kg, 03/12/21 9:16:00 EDT, Dry Weight Start Date: 06/05/21 Status: Ordered folic acid 1 mg oral tablet 1, tablet, By Mouth, Daily, # 30 tablet, Refills 5, Tot. Refills 5, Maintenance, 07/25/21 15:59:00 EST, Route to Pharmacy Electronically, [facility]/pharmacy #[id number], 175.2, cm, 06/07/21 9:51:00 EST, Height, [...] tablet, 5 Refills, Maintenance, 06/05/21 15:57:00 EST, [facility]/pharmacy #[id number], 175.2, cm, 05/27/21 11:26:00 EST, Height, 88.3, kg, 03/12/21 9:16:00 EDT, Dry Weight Start Date: 06/05/21 Status: Ordered LaMICtal 100 mg oral tablet 100 mg, 1, tablet, By Mouth, 2 times a day, # 60 tablet, Refills 3, Tot. Refills 3, Maintenance, 01/21/19 11:25:36 EDT, Route to Pharmacy Electronically, [id number], [facility]/pharmacy #[id number] Start [...] 3 Refills, Maintenance, 06/24/21 16:13:00 EST, Tablet, [facility]/pharmacy #[id number], Partial fill upon patient request if the prescription is for a schedule II opioid drug., 175.2, cm, 06/07/21 9:51:00 EST, Height... Start Date: 06/24/21 Status: Ordered Metoprolol Tartrate 50 mg oral tablet See Instructions, TAKE 1 + 1/2 TABLETS BY MOUTH 2 TIMES A DAY, # 270 tablet, 0 Refills, 06/24/21 10:42:00 EST, [facility]/pharmacy #[id number], 175.2, cm, 06/07/21 9:51:00 EST, Height, 88.3, kg, 03/12/21 9:16:00 EDT, Dry Weight Start Date: 06/24/21 Status: Ordered nicotine 2 mg oral transmucosal lozenge See Instructions, USE 1 LOZENGE UP TO EVERY 1 HOUR NEEDED FOR 10 DAYS, # 162 lozenge, 0 Refills,Maintenance, 08/06/21 13:47:00 EST, [facility]/pharmacy #[id number], 10, USE 1 LOZENGE UP TO [...] 0 Refills, Maintenance, 08/01/21 12:53:00 EST, Tablet, [facility]/pharmacy #[id number], 175.2, cm, 07/31/21 11:20:00 EST, Height, 88.3,... Start Date: 08/01/21 Status: Ordered NovoLOG FlexPen 100 units/mL injectable solution See Instructions, INJECT 0-18 UNITS SUBCUTANEOUSLY WITH MEALS FOR SLIDING SCALES, # 15 Unknown, 2 Refills, [id number], 175.2, cm, 05/27/21 11:26:00 EST, Height, 88.3, kg, 03/12/21 9:16:00 EDT, Dry Weight Start Date: 06/04/21 Status: Ordered Pen [place], 31 G x 5 mm BD Ultra [...] 5 Refills, Maintenance, 06/10/21 12:32:00 EST, Capsule, [facility]/pharmacy #[id number], 175.2, cm, 06/07/21 9:51:00 EST, Height, 88.3, kg, 03/12/21 9:16:00 EDT, Dry Weight Start Date: 06/10/21 Status: Ordered pregabalin 75 mg oral capsule 1 capsule = 75 mg, By Mouth, 2 times a day, # 60 capsule, 5 Refills, Maintenance, 06/07/21 13:14:00EST, Capsule, [facility]/pharmacy #[id number], 175.2, cm, 06/07/21 9:51:00 EST, Height, 88.3, kg, 03/12/21 9:16:00 EDT, Dry Weight Start Date: 06/07/21 Status: Ordered rosuvastatin 20 mg oral tablet 1 tablet, By Mouth, Daily, # 90 tablet, 1 Refills, Maintenance, 01/08/21 14:43:00 EDT, [facility]/pharmacy#0843, 175, cm, 12/24/20 11:20:00 EDT, Height, 83.6, [...] 524 weeks therapy with sofosbuvir/weight based ribavirin 33788 inferolateral stent bare metal circumflex 7DR Marissa [...]
--- OUTSIDE RECORDS SUMMARY | 2024-06-01 12:02 | XMS_ITS | Continuity of Care Document ---
Author Organization [facility] Shawn Lazaro lt Address [address] [place] [address]- Care Team Providers Care Strike Planning Applications Name Role Phone Carrie Kelly RIVERA Primary Care Physician [place] [facility] [place] 03[place]11[place]24 [facility] Adult [address] [place] [address]- Allergies, Adverse Reactions, Alerts Substance Reaction Severity Status Bee Stings Active Immunizations Given and Recorded Vaccine Date Status Refusal Reason SARS-CoV-2(COVID-19)mRNA-LNP vac([id number]) 12/31/23 Recorded SARS-CoV-2(COVID-19)mRNA-LNP vac([id number]) 05/08/23 Recorded tetanus/diphtheria/pertussis, acel(Tdap) 10/15/23 Recorded tetanus/diphtheria/pertussis, [...] 02/03/23 Recorded zoster vaccine, inactivated 08/09/19 Recorded [id number] 12y+ bivalent booster vax 05/17/22 Recorded SARS-CoV-2 [...] adult vaccine 4 12/10/10 Given 1Result Comment: [id number] 2Result Comment: [id number] 3Admin Note: pt waited 10 mins post [...] day prn cough (Max 600 mg in p72-ltrb period), # 30 capsule, 0 Refills, Maintenance, [...] 02/29/24 11:18:00 EDT, Route to Pharmacy Electronically, [facility]/pharmacy #[id number], Partial fill upon patient request if the prescriptio... Start Date: 02/29/24 Stop Date: 03/14/24 Status: Ordered D3 50 mcg (2000 intl units) oral capsule 1 capsule, By Mouth, Daily, # 90 capsule, 0 Refills, Maintenance, 12/09/23 14:09:00 EDT, [facility]/pharmacy #[id number], 168, cm, 10/27/23 15:34:00 EDT, Height, 93, kg, 01/28/22 14:55:00 EDT, Dry Weight Start Date: 12/09/23 Status: Ordered Daily Simone oral tablet 1 tablet, By Mouth, Daily, # 90 tablet, 1 Refills, Maintenance, 01/25/24 16:01:00 EDT, [facility]/pharmacy#[id number], 90, 1 tablet By Mouth Daily, 168, cm, 01/11/24 14:42:00 EDT, Height, 93, kg, 01/28/22 14:55:00 EDT, Dry Weight Start Date: 01/25/24 Status: Ordered dapagliflozin 10 mg oral tablet 1 tablet = 10 mg, By Mouth, Daily, # 30 tablet, 0 Refills, Maintenance, 01/11/24 14:46:00 EDT, Tablet, [facility]/pharmacy #[id number], Partial fill upon patient [...] 02/17/24 7:23:00 EDT, Route to Pharmacy Electronically, [facility]/pharmacy #[id number], 168, cm, 02/15/24 13:43:00 [...] 01/21/19 11:25:36 EDT, Route to Pharmacy Electronically, [id number], [facility]/pharmacy #[id number] Start Date: 01/21/19 Stop [...] tablet, 0 Refills, Maintenance, 10/03/22 15:53:00 EDT, [facility]/pharmacy #[id number], 175, cm, 09/17/22 13:59:00 EDT, Height,... Start Date: 10/03/22 Status: Ordered NovoLOG FlexPen 100 units/mL injectable solution See Instructions, INJECT 0-18 UNITS SUBCUTANEOUSLY WITH MEALS FOR SLIDING SCALES, # 15 Unknown, 2 Refills, 01/12/24 14:36:00 EDT, [facility]/pharmacy #[id number], MAX DAILY DOSE 54 [...] 0 Refills, Maintenance, 02/02/24 15:28:00 EDT, [place], [facility]/pharmacy #[id number], Partial fill upon patient... Start Date: 02/02/24 Status: Ordered Pen [place], 31 G x 5 mm BD Ultra [...] Refills, Maintenance, 02/04/24 16:39:00 EDT, [id number], 168, cm, 02/03/24 10:41:00 EDT, Height Start Date: 02/04/24 Status: Ordered senna - oral tablet 2 tablet, By Mouth, Daily at bedtime, PRN for constipation, for 14 days, # 28 tablet, 0 Refills, Acute 03/14/24 11:19:00 EDT, 02/29/24 11:19:00 EDT, Tablet, [facility]/pharmacy #[id number], Partial fill upon patient [...] 4, GFR 15-29 ml/min Confirmed Active ASHD; [place] 2012/stent circumflex 2012/vessel cath;abdelrahman 2018 3 Confirmed [...] 524 weeks therapy with sofosbuvir/weight based ribavirin 95269 inferolateral stent bare metal circumflex 7DR Molddoida [...] Team Personnel Name: Jeffrey Mccoy MD Position: [facility] Renal MD Member Role: Lifetime Consulting Physician Address: Address: [address] [place] [address] [address] [facility] [place], [place] [facility] Name: Kelly Butler NP Position: [facility] PCO Associate Professional Member Role: PCP Address: Address: [address] [place] [id number]- Name: Kristin Mckenzie Position: [facility] Outreach Member Role: Lifetime Consulting Physician Name: Fortunato Sin RN Position: [facility] RN Member Role: Primary Care Nurse Name: Nury Watts RN Position: [facility] RN Member Role: Primary Care Nurse Name: Antonia Mena NP Position: [facility] Associate Professional Member Role: Lifetime Consulting Provider Address: Address: [address] [place], [place] [address] [place], [place] - Name: Prieto Tobin RN Position: [facility] RN Member Role: Primary Care Nurse Name: Ashleigh Reynoso RN Position: [facility] RN Member Role: Primary Care Nurse Name: Jonn Hui DO Position: [facility] Renal MD Member Role: Lifetime Consulting Physician Address: Address: [address] [place] [address] [address] [facility] [place], [place] - Name: Luis Angel Stephen RN Position: [facility] RN Member Role: Primary Care Nurse Name: Brandan Nogueira RN Position: S RN Member Role: Primary Care Nurse Care Team Related Persons Name: CARLOS A BORDEN Address: home [address] [place] [address] UM Name: LEVI BORDEN Address: home [address] [place] [address]
--- OUTSIDE RECORDS SUMMARY | 2024-06-01 12:02 | XMS_ITS | Continuity of Care Document ---
Author Organization [facility] Shawn Lazaro lt Address [address] [place] [address]- Care Team Providers Care Housing And Residence Life Director Name Role Phone Ben Viera MD Primary Care Physician [place] [facility] [place] 12/15/19 [facility] Adult [address] [place] [address]- [place] Encounter Diagnosis Cellulitis of left upper extremity(Discharge Diagnosis) - 12/12/19 Attending Physician: Kelly Butler NP Referring Physician: [...] 10:48:07 EST, Aerosol, Route to Pharmacy Electronically, [id number], [facility]/pharmacy #[id number], 180, [...] 5 Refills, Maintenance, 11/02/19 10:15:00 EDT, Capsule, [facility]/pharmacy #[id number], [...] 04/25/19 13:50:52 EDT, Route to Pharmacy Electronically, [id number], [facility]/pharmacy #[id number] Start [...] Date: 09/21/19 Stop Date: 03/19/20 Status: Ordered doxycycline hyclate 100 mg oral tablet 1 tablet = 100 mg, By Mouth, 2 times a day, for 3 days, # 6 tablet, 0 Refills, Acute 12/18/19 11:52:00 EDT, 12/15/19 11:52:00 EDT, Tablet, [facility]/pharmacy #[id number], 172, cm, 12/14/19 7:38:00 EDT, Height, 97.8, kg, 08/11/19 5:24:00 EST, Dry Weight Start Date: 12/15/19 Stop Date: 12/18/19 Status: Ordered folic acid 1 mg oral tablet 1 mg, 1, tablet, By Mouth, Daily, # 30 tablet, Refills 11, Tot. Refills 11, Maintenance, 02/14/19 16:39:14 EDT, Route to Pharmacy Electronically, [id number], [facility]/pharmacy #[id number] Start [...] 01/21/19 11:25:36 EDT, Route to Pharmacy Electronically, [id number], [facility]/pharmacy #[id number] Start [...] 11/25/19 16:21:00 EDT, [facility] to [facility] Electronically, [facility] [...] lozenge, 1 Refills, Maintenance, 11/29/19 8:13:00 EDT, [facility]/pharmacy #[id number], [...] UNITS SUBCUTANEOUSLY WITH MEALS FOR SLIDING SCALES, [facility]/pharmacy #[id number] Start Date: 01/04/19 Status: Ordered Pen [place], 31 G x 5 mm BD Ultra [...] 0 Refills, Maintenance, 10/05/19 11:07:00 EDT, Solution, [facility]/pharmacy #[id number], 172, [...] impairment, st age 3 (moderate)(Confirmed) Active ASHD; [place] 2012/stent circumfl ex vessel cath;abdelrahman 2018(Confirmed) 3 Active Epididymal cyst rt(Confirmed) 04/18/19 Active Low serum vitamin D(Confirmed) Active Insulin long-term use(Confirmed) Active Ex-smoker quit 2018/[facility] t enrolled(Confirmed) Active Fibrillary glomerulonephritis(Confirmed) 4 [...] mild to moderate. 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 Molddoverno sx;Dr Schwartz 8repeat colonoscopy in 5 years Diagnosis Diagnosis Type Effective Dates Health Status Clinical Service Informant Cellulitis of left upper extremity Discharge Diagnosis 12/12/19 Vital Signs Most recent to oldest [Reference Range]: 1 Height 172 cm (12/08/19 11:27 AM) Weight 92.9 kg (12/08/19 11:27 AM) Oxygen Saturation [94-100 %] 97 % (12/08/19 11:27 AM) Pulse Rate [55-90 bpm] 60 bpm (12/08/19 11:27 AM) Body Mass Index [18.5-24.99] 31.4 *>HHI* (12/08/19 11:27 AM) Blood Pressure [90-138/55-84 mm Hg] 118/ 78mm Hg (12/08/19 11:27 AM) Respiratory Rate [16-30 br/min] 18 br/mi n (12/08/19 11:27 AM) Temperature [96.8-100.4 DegF] 98.0 DegF (12/08/19 11:27 AM) Mode of Delivery (Oxygen) Room air (12/08/19 11:27 AM) Blood pressure sites Leg, left (12/08/19 11:27 AM) Temperature Route Oral (12/08/19 11:27 AM) Weight Obtained Via Standing scale (12/08/19 11:27 AM) Social History Social History Type Response Smoking Status Former smoker, quit more than 30 days ago; Interested in cessation: Yes; Tobacco use times per day: 0.5-1 PPD; Total pack years: 38; Started at age: 12; Stopped at age: 63; entered on: 12/14/19 Sex
--- OUTSIDE RECORDS SUMMARY | 2024-06-01 12:02 | XMS_ITS | Continuity of Care Document ---
Author Organization [facility] Shawn Lazaro lt Address [address] [place] [address]- Care Team Providers Care Vp Informatics Name Role Phone Carrie Kelly RIVERA Primary Care Physician [place] [facility] [place] 06/26/23 - 07/26/23 [facility] [place], operated by [facility] [address] [place] [address]- Allergies, Adverse Reactions, Alerts Substance Reaction Severity Status Bee Stings Active Immunizations Given and Recorded Vaccine Date Status Refusal Reason SARS-CoV-2(COVID-19)mRNA-LNP vac([id number]) 05/08/23 Recorded pneumococcal 20-valent conjugate vaccine 1 [...] 02/03/23 Recorded zoster vaccine, inactivated 08/09/19 Recorded [id number] 12y+ bivalent booster vax 05/17/22 Recorded SARS-CoV-2 [...] adult vaccine 4 12/10/10 Given 1Result Comment: [id number] 2Result Comment: [id number] 3Admin Note: pt waited 10 mins post inj no adverse reaction noted.j a 4Admin Note: PT WAITED 10 MIN WITH NO ADVERSE REACTION. MH Medications aspirin 81 mg oral delayed release tablet 1 tablet, By Mouth, Daily, # 90 tablet, 1 Refills, Maintenance, 06/02/23 11:42:00 EST, [facility]0843, 168, cm, 05/01/23 14:45:00 EDT, Height, 93, [...] capsule, 1 Refills, Maintenance, 06/30/23 7:20:00 EST, [facility], 168, cm, 05/01/23 14:45:00 EDT, Height, 93, kg, 01/28/22 14:55:00 EDT, Dry Weight Start Date: 06/30/23 Status: Ordered Daily Simone oral tablet 1 tablet, By Mouth, Daily, # 90 tablet, 1 Refills, Maintenance, 06/30/23 7:20:00 EST, [facility] 494[facility], 90, TAKE 1 TABLET BY MOUTH EVERY [...] Refills, Maintenance, 06/26/23 6:50:00 EST, [facility], 168, cm, 05/01/23 14:45:00 EDT, Height, 93, kg, 01/28/22 14:55:00 EDT, Dry Weight Start Date: 06/26/23 Status: Ordered folic acid 1 mg oral tablet 1, tablet, By Mouth, Daily, # 90 tablet, Refills 1, Tot. Refills 1, Maintenance, 07/03/23 10:01:00 EST, Route to Pharmacy Electronically, [facility]/pharmacy #0843, 168, cm, 05/01/23 [...] 01/21/19 11:25:36 EDT, Route to Pharmacy Electronically, [id number], [facility]/pharmacy #0843 Start Date: 01/21/19 Stop Date: 05/21/19 Status: Ordered lamotrigine 100 mg oral tablet Refills 0, Maintenance, 05/01/23 15:28:00 EDT, Partial fill upon patient request if the prescription is for a schedule II opioid drug. Start Date: 05/01/23 Status: Ordered lisinopril 40 mg oral tablet 1 tablet, By Mouth, Daily, # 90 tablet, 0 Refills, Maintenance, 04/21/23 10:51:00 EDT, [facility], 175, cm, 10/09/22 16:51:00 EDT, Height, 93, [...] Refills, Maintenance, 02/20/23 7:15:00 EDT, [facility], 175, cm, 10/09/22 16:51:00 EDT, Height, 93, kg, 01/28/22 14:55:00 EDT, Dry Weight Start Date: 02/20/23 Status: Ordered nicotine 14 mg/24 hr transdermal film, extended release See Instructions, apply to skin, # 14 patch, 1 Refills, Maintenance, 07/23/23 15:53:00 EST, Patch, [facility]/pharmacy #0843, [...] 15 Unknown, 2 Refills, 11/07/22 0:09:00 EDT, [facility]/pharmacy #0843, 175, cm, 10/09/22 16:51:00 EDT, Height, 93, kg, 01/28/22 14:55:00 EDT, Dry Weight Start Date: 11/07/22 Status: Ordered Pen [place], 31 G x 5 mm BD Ultra [...] capsule, 2 Refills, Maintenance, 07/03/23 9:40:00 EST, [facility]/pharmacy #0843, Partial fill upon patient request if the prescription is for a schedule II opioid drug., 168, cm, 05/01/23 14:45:00 EDT, Height, 93, kg... Start Date: 07/03/23 Status: Ordered rosuvastatin 20 mg oral tablet 1 tablet, By Mouth, Daily, # 90 tablet, 1 Refills, Maintenance, 03/29/23 14:43:00 EDT, [facility], 175, cm, 10/09/22 16:51:00 EDT, Height, 93, [...] mild to moderate. 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 524 weeks therapy with sofosbuvir/weight based ribavirin 38533 inferolateral stent bare metal circumflex 7DR Molddoverno [...] Team Personnel Name: Jeffrey Mccoy MD Position: [facility] Renal MD Member Role: Lifetime Consulting Physician Address: Address: [address] [place] [address] [facility] [place] [address]- Name: Kelly Butler NP Position: [facility] PCO Associate Professional Member Role: PCP Address: Address: [address] [place] [address]- Name: Kristin Mckenzie Position: [facility] Outreach Member Role: Lifetime Consulting Physician Name: Prieto Tobin RN Position: [facility] RN Member Role: Primary Care Nurse Name: Jonn Hui DO Position: [facility] Renal MD Member Role: Lifetime Consulting Physician Address: Address: [address] [place], [place] [address] [place] [address]- Name: Luis Angel Stephen RN Position: [facility] RN Member Role: Primary Care Nurse Care Team Related Persons Name: CARLOS A BORDEN Address: home [address] [place] [address] Name: LEVI BORDEN Address: home [address] [place] [address]
--- OUTSIDE RECORDS SUMMARY | 2024-06-01 12:02 | XMS_ITS | Continuity of Care Document ---
Author Organization [facility] Address [address] [place] [address] Joana powers, [address] [place] [address]- Care Team Providers Care Coffee Shop Attendant Name Role Phone Kelly Butler NP Primary Care Physician [phone] Encounter [facility] Date(s): 10/06/23 - 11/07/23 [facility] [address] [place] [address] Drive [address] [place], [place] [address] Attending Physician: David Schwartz MD Referring Physician: Kelly Butler NP Allergies, Adverse Reactions, Alerts Substance Reaction Severity Status Bee Stings Active Immunizations Given and Recorded Vaccine Date Status Refusal Reason tetanus/diphtheria/pertussis, acel(Tdap) 10/15/23 Recorded tetanus/diphtheria/pertussis, acel(Tdap) 07/28/11 Given SARS-CoV-2(COVID-19)mRNA-LNP vac([id number]) 05/08/23 Recorded pneumococcal 20-valent conjugate vaccine 1 [...] 02/03/23 Recorded zoster vaccine, inactivated 08/09/19 Recorded [id number] 12y+ bivalent booster vax 05/17/22 Recorded SARS-CoV-2 [...] adult vaccine 4 12/10/10 Given 1Result Comment: [id number] 2Result Comment: [id number] 3Admin Note: pt waited 10 mins post inj no adverse reaction noted.thierno kong 4Admin Note: PT WAITED 10 MIN WITH NO ADVERSE REACTION. Medications aspirin 81 mg oral delayed release tablet 1 tablet, By Mouth, Daily, # 90 tablet, 1 Refills, Maintenance, 06/02/23 11:42:00 EST, [facility]/pharmacy#0843, 168, cm, 05/01/23 14:45:00 EDT, Height, [...] Refills, Maintenance, 06/30/23 7:20:00 EST, [facility], 168, cm, 05/01/23 14:45:00 EDT, Height, 93, kg, 01/28/22 14:55:00 EDT, Dry Weight Start Date: 06/30/23 Status: Ordered Daily Simone oral tablet 1 tablet, By Mouth, Daily, # 90 tablet, 1 Refills, Maintenance, 06/30/23 7:20:00 EST, [facility] STORE 12657, 90, TAKE 1 TABLET BY MOUTH EVERY [...] capsule, 0 Refills, Maintenance, 06/26/23 6:50:00 EST, [facility] STORE 86400, 168, cm, 05/01/23 14:45:00 EDT, Height, 93, kg, 01/28/22 14:55:00 EDT, Dry Weight Start Date: 06/26/23 Status: Ordered folic acid 1 mg oral tablet 1, tablet, By Mouth, Daily, # 90 tablet, Refills 1, Tot. Refills 1, Maintenance, 07/03/23 10:01:00 EST, Route to Pharmacy Electronically, [facility]/pharmacy #0843, 168, cm, 05/01/23 14:45:00 EDT, [...] 3 times a day DX: DM E11.9, 11/28/23 14:16:00 EST, NEEDS TO TEST 3 TIMES A DAY FOR INSULIN; ok to fill early if needed, Compound, 168, cm, 05/01/23 14:45:00 EDT, Height... Start Date: 06/02/23 Status: Ordered LaMICtal 100 mg oral tablet 100 mg, 1, tablet, By Mouth, 2 times a day, # 60 tablet, Refills 3, Tot. Refills 3, Maintenance, 01/21/19 11:25:36 EDT, Route to Pharmacy Electronically, [id number], [facility]/pharmacy #0843 Start Date: 01/21/19 Stop Date: 05/21/19 Status: Ordered lamotrigine 100 mg oral tablet Refills 0, Maintenance, 05/01/23 15:28:00 EDT, Partial fill upon patient request if the prescription is for a schedule II opioid drug. Start Date: 05/01/23 Status: Ordered lisinopril 40 mg oral tablet 1 tablet, By Mouth, Daily, # 90 tablet, 1 Refills, Maintenance, 08/17/23 13:33:00 EST, [facility]/pharmacy#0843, 168, cm, 07/23/23 15:05:00 EST, Height, 93, kg, 01/28/22 14:55:00 EDT, Dry Weight Start Date: 08/17/23 Status: Ordered Metoprolol Tartrate 50 mg oral tablet 1.5 tablet, By Mouth, 2 times a day, # 270 tablet, 1 Refills, Maintenance, 09/16/23 14:32:00 EDT, [facility]/pharmacy #0843, 168, cm, 07/23/23 15:05:00 EST, [...] Weight Start Date: 11/07/22 Status: Ordered Pen [place], 31 G x 5 mm BD Ultra [...] Refills, Maintenance, 03/29/23 14:43:00 EDT, [facility], 175, cm, 10/09/22 16:51:00 EDT, Height, 93, [...] 4, GFR 15-29 ml/min Confirmed Active ASHD; [place] 2012/stent circumflex vessel cath;abdelrahman 2018 3 Confirmed [...] 524 weeks therapy with sofosbuvir/weight based ribavirin 86030 inferolateral stent bare metal circumflex 7DR Molddoverno [...] Role: Lifetime Consulting Physician Address: Address: [address] [place] [address] [address] [facility] [place] [address]- Name: Kelly Butler NP Position: [facility] PCO Associate Professional Member Role: PCP Address: Address: [address] [place] [id number]- Name: Kristin Mckenzie Position: [facility] Outreach Member Role: Lifetime Consulting Physician Name: Prieto Tobin RN Position: S RN Member Role: Primary Care Nurse Name: Jonn Hui DO Position: [facility] Renal MD Member Role: Lifetime Consulting Physician Address: Address: [address] [place], [place] [address]E [facility] [place], [place] [address] Name: Zafar CALVO, Luis Angel Rojas Position: S RN Member Role: Primary Care Nurse Care Team Related Persons Name: CARLOS A BORDEN Address: [address] [place] [address] Name: LEVI BORDEN Address: [address] [place] [address]
--- OUTSIDE RECORDS SUMMARY | 2024-06-01 12:03 | XMS_ITS | Continuity of Care Document ---
Author Organization [facility] ter Address [address] [place] [address]- Care Team Providers Care Principal Clerk Name Role Phone Aylin HICKMAN, Ben Willis Primary Care Physician [phone] Encounter [facility] [place] Date(s): 08/10/19 - 08/11/[address] [address]- [facility] Encounter Diagnosis Syncope(Final) - 08/10/19 Discharge Disposition: A-D/C Home Attending Physician: Shaq Villasenor MD Admitting Physician: Percy Baker MD Referring Physician: Not on Staff, Referring [...] 10:48:07 EST, Aerosol, Route to Pharmacy Electronically, [id number], [facility]/pharmacy #0843, 180, cm, 06/17/19 10:36:11 EST, Height Start Date: 06/17/19 Status: Ordered aspirin 81 mg oral tablet 1 tablet = 81 mg, By Mouth, Daily, # 30 tablet, 11 Refills, Maintenance, 09/03/19 14:22:00 EST, Tablet, [facility]/pharmacy #0843, 180, cm, 08/01/19 10:43:00 EST, Height Start Date: 09/03/19 Stop Date: 08/28/20 Status: Ordered aspirin 81 mg oral tablet 1 tablet = 81 mg, By Mouth, Daily, for 30 days, # 30 tablet, 11 Refills, Hard Stop 09/03/19 14:22:51 EST, 09/08/18 14:22:51 EST, Tablet, [facility]/pharmacy #[id number] Start Date: 09/08/18 Stop Date: 09/03/19 [...] 05/09/19 9:31:26 EST, Route to Pharmacy Electronically, [id number], [facility]/pharmacy #0843 Start Date: 05/09/19 Status: Ordered Colace sodium 100 mg oral capsule 100 mg, 1, capsule, By Mouth, 2 times a day, PRN, # 60 capsule, Refills 5, Tot. Refills 5, Maintenance, for constipation, 04/25/19 13:50:52 EDT, Route to Pharmacy Electronically, [id number], [facility]/pharmacy #0843 Start Date: 04/25/19 Status: Ordered Crestor [...] 02/14/19 16:39:14 EDT, Route to Pharmacy Electronically, [id number], [facility]/pharmacy #0843 Start Date: 02/14/19 Status: Ordered Freestyle [...] 01/21/19 11:25:36 EDT, Route to Pharmacy Electronically, [id number], [facility]/pharmacy #0843 Start Date: [...] 06/21/19 14:10:15 EST, Route to Pharmacy Electronically, [facility]/pharmacy #0843, 180, cm, 06/17/19 10:36:11 EST, Height Start Date: 06/21/19 Status: Ordered metoprolol 50 mg oral tablet 75 mg, 1.5, tablet, By Mouth, 2 times a day, stop metoprolol 50 mg twice daily, # 180 tablet, Refills 2, Tot. Refills 2, Maintenance, 02/28/19 16:02:16 EDT, Route to Pharmacy Electronically, [id number], [facility]/pharmacy #0843 Start Date: 02/28/19 Status: Ordered nicotine 2 mg oral transmucosal lozenge 1 lozenge = 2 mg, By Mouth, Every 2 hours, SUCK UP TO Q1 HOURS 10 DAILY, # 144 lozenge, 2 Refills, Maintenance, 07/15/19 12:34:00 EST, [facility]/pharmacy #0843, 1 lozenge By Mouth Every 2 [...] PAIN CALL 911 IF PAIN NOT RELIEVED, [facility]/pharmacy #0843 Start Date: 02/17/19 Status: Ordered NovoLOG FlexPen 100 units/mL subcutaneous solution See Instructions, # 15 Unknown, Refills 5 Tot. Refills 5, INJECT 0-18 UNITS SUBCUTANEOUSLY WITH MEALS FOR SLIDING SCALES, [facility]/pharmacy #0843 Start Date: 01/04/19 Status: Ordered Pen [place], 31 G x 5 mm BD [...] 01/21/19 11:26:23 EDT, Route to Pharmacy Electronically, [id number], [facility]/pharmacy #0843 Start Date: 01/21/19 Status: Ordered SEROquel [...] EST, Tablet, this was previously sent to [facility] pharmacy Start Date: 05/17/19 Stop Date: 05/11/20 Status: Ordered Tresiba FlexTouch 200 units/mL subcutaneous solution = 90 units, Subcutaneous Infusion, Daily, at bedtime, # 15 mL, 5 Refills, Maintenance, 08/04/19 13:13:00 EST, [facility]/pharmacy #0843, 180, cm, 08/01/19 10:43:00 EST, Height [...] renal insufficiency, stage III (moderate)(Confirmed) Active ASHD; [place] 2012/stent circumfl ex vessel cath;abdelrahman 2018(Confirmed) 3 Active Epididymal cyst rt(Confirmed) 10/14/19 Active Low serum vitamin D(Confirmed) Active Insulin [...] 524 weeks therapy with sofosbuvir/weight based ribavirin 94928 inferolateral stent bare metal circumflex 7DR Seanverno sx;Dr Schwartz 8repeat colonoscopy in 5 years Procedures Procedure Date Related Diagnosis Body Site Status Radioisotope myocardial perf usion stress study fixed defect as before 1 08/11/19 C ompleted 11. Myocardial perfusion imaging is abnormal after Regadenoson infusion. There is a large size, severe intensity fixed defect in the inferior and inferolateral marin from mid to base, with reduced thickening and motion, consistent with infarct. This is similar to prior myocardial perfusion imaging study from 02/2019, with the exception of sparing of apex in current study. There is no reversible perfusion defect. There is transient ischemic dilation. 2. LV function is normal with an E.F. of 65% at rest and 62% after IV administration of Regadenoson. Results Radiology Reports * Exam Date Time Procedure Performing Provider Status 08/10/19 6:16 PM XR Hip w/Pelvis 2-3 View Right IvanSusan cervantes; Ollie (Verified) Notes: (XR Hip w/Pelvis 2-3 View Right) Reason For Exam: With Pain;Trauma RESULT: XR Hip w/Pelvis 2-3 View Right XR Hip w/Pelvis 2-3 View Right Refer to EMR; Reason: Trauma; With Pain; Clinical Question(s): Fracture; Hx of Present Illness: Pt reports 2 episodes of rubbery legs and profound weakness since cardiac surgery in Jun. COMPARISON: 06/22/2017 FINDINGS: There is no fracture or dislocation. Mild bilateral joint space narrowing of the hips with mild degenerative cystic change at the right femoral head-neck junction, unchanged. Pelvis is intact. Mild lumbosacral degenerative changes. Normal soft tissues. IMPRESSION: No acute fracture or dislocation. WSN: [id number] Dictated By: Servando Benjamin DO Dictated Date/Time: 08/10/19 6:21 pm Reviewed By: Servando Benjamin DO Signed By: Servando Benjamin DO Signed Date/Time: 08/10/19 6:21 pm Transcribed By: AYSHA Transcribed Date/Time: 08/10/19 6:19 pm * Exam Date Time Procedure Performing Provider Status 08/10/19 3:17 PM Chest 2 Views Frontal and Lat Tamie Martins; Ollie (Verified) Notes: (Chest 2 Views Frontal and Lat) Reason For Exam: Shortness of Breath RESULT: Chest 2 Views Frontal and Lat Chest 2 Views Frontal and Lat INDICATION: Shortness of breath. COMPARISON: Multiple priors, most recent 07/16/2016. FINDINGS: LINES AND TUBES: None. LUNGS AND PLEURA: Minimal subsegmental atelectasis at the left base with small linear density noted. IMPRESSION: Minimal subsegmental atelectasis at the left base I have personally reviewed the images and I agree with this report. WSN: [id number] Dictated By: Chuck Petersen MD Dictated Date/Time: 08/10/19 3:23 pm Reviewed By: Robert Briceno MD Signed By: Robert Briceno MD Signed Date/Time: 08/10/19 3:28 pm Transcribed By: AYSHA Transcribed Date/Time: 08/10/19 3:21 pm Vital Signs Most recent to oldest [Reference Range]: 1 2 3 4 Height 172 cm (08/11/19 1:32 PM) 172 cm (08/11/19 7:33 AM) 172 cm (08/11/19 7:33 AM) Weight 97.8 kg (08/10/19 11:34 PM) Oxygen Saturation [94-100 %] 95 % (08/11/19 1:32 PM) 98 % (08/11/19 7:33 AM) 96 % (08/11/19 4:29 AM) Pulse Rate [55-90 bpm] 66 bpm (08/11/19 1:32 PM) 80 bpm (08/11/19 1:27 PM) 66 bpm (08/11/19 9:14 AM) Body Mass Index [18.5-24.99] 33.06 *>HHI* (08/10/19 11:34 PM) Blood Pressure [90-138/55-84 mm Hg] 153/60mm Hg *H* (08/11/19 1:32 PM) 153/60mm Hg *H* (08/11/19 1:27 PM) 127/62mm Hg (08/11/19 9:14 AM) 127/62mm Hg (08/11/19 9:14 AM) Respiratory Rate [16-30 br/min] 18 br/min (08/11/19 1:32 PM) 18 br/min (08/11/19 10:27 AM) 18 br/min (08/11/19 7:33 AM) Temperature [96.8-100.4 DegF] 97.9 DegF (08/11/19 1:32 PM) 98 DegF (08/11/19 7:33 AM) 97.9 DegF (08/11/19 4:29 AM) Mode of Delivery (Oxygen) Room air (08/11/19 1:32 PM) Room air (08/11/19 7:33 AM) Room air (08/11/19 4:29 AM) Blood pressure sites Arm, right (08/11/19 1:32 PM) Arm, left (08/11/19 7:33 AM) Arm, right (08/11/19 4:29 AM) Temperature Route Oral (08/11/19 1:32 PM) Oral (08/11/19 7:33 AM) Oral (08/11/19 4:29 AM) Dry Weight 97.8 kg (08/10/19 11:34 PM) Social History Social History Type Response Smoking Status Former smoker, quit more than 30 days ago entered on: 12/22/18 Sex
--- OUTSIDE RECORDS SUMMARY | 2024-06-01 12:03 | XMS_ITS | Continuity of Care Document ---
Author Organization [facility] Address [address] [place] [address]- Care Team Providers Care Gig Tender Name Role Phone Aylin HICKMAN, Ben Willis Primary Care Physician Encounter [facility] [place] Date(s): 05/23/21 - 06/22/21 [facility] [address] [place] [address]- Attending Physician: AdmRadha kate Admitting Physician: Admtr, [...] Refills, Maintenance, 06/26/20 12:19:00 EST, [facility], 175, cm, 06/25/20 16:11:00 EST, Height, 83.6, [...] Refills, Maintenance, 01/23/21 11:08:00 EDT, CR Capsule, [facility]/pharmacy #0843, 175.3, cm, 01/21/21 12:58:00 EDT, Height, 83.6, kg, 04/23/20 17:46:00EDT, Dry Weight Start Date: 01/23/21 Stop Date: 01/18/22 Status: Ordered cholecalciferol 2000 intl units oral capsule 1 capsule = 2,000 International_Units, By Mouth, Daily, # 30 capsule, 5 Refills, Maintenance, 05/15/21 13:02:00 EST, Capsule, [facility]/pharmacy #0843, 175.2, cm, 03/18/21 10:48:00 EDT, Height, 88.3, kg, 03/12/21 9:16:00 EDT, Dry Weight Start Date: 05/15/21 Status: Ordered cloNIDine 0.2 mg oral tablet 0.2 mg, 1, tablet, By Mouth, 2 times a day, # 60 tablet, Refills 5, Tot. Refills 5, Maintenance, 02/28/21 10:13:00 EDT, Route to Pharmacy Electronically, [facility]/pharmacy #0843, 175.3, cm, 01/21/21 12:58:00 EDT, Height, 83.6, kg, 04/23/20 17:46:00 EDT, . Start Date: 02/28/21 Status: Ordered Daily Simone oral tablet 1 tablet, By Mouth, Daily, # 30 tablet, 5 Refills, Maintenance, 09/19/20 8:25:00 EDT, Tablet, [facility]/pharmacy #0843, 1 tablet By Mouth Daily,x30 days, 175, cm, 07/20/20 10:29:00 EST, Height, 83.6, kg, 04/23/20 17:46:00 EDT, Dry Weight Start Date: 09/19/20 Stop Date: 03/18/21 Status: Ordered docusate sodium 100 mg oral capsule 1 capsule, By Mouth, 2 times a day, PRN NEEDED FOR CONSTIPATION, # 60 capsule, 5 Refills, Maintenance, 06/05/21 15:57:00 EST, [facility] 175.2, cm, 05/27/21 11:26:00 EST, Height, 88.3, kg, 03/12/21 9:16:00 EDT, Dry Weight Start Date: 06/05/21 Status: Ordered folic acid 1 mg oral tablet 1, tablet, By Mouth, Daily, # 30 tablet, Refills 5, Tot. Refills 0, Maintenance, 01/18/21 14:44:00 EDT, Route to Pharmacy Electronically, [facility] STORE 59382, 175, cm, 12/24/20 11:20:00 EDT, Height, 83.6, [...] tablet, 5 Refills, Maintenance, 06/05/21 15:57:00 EST, [facility]/pharmacy #0843, 175.2, cm, 05/27/21 11:26:00 EST, Height, 88.3, kg, 03/12/21 9:16:00 EDT, Dry Weight Start Date: 06/05/21 Status: Ordered LaMICtal 100 mg oral tablet 100 mg, 1, tablet, By Mouth, 2 times a day, # 60 tablet, Refills 3, Tot. Refills 3, Maintenance, 01/21/19 11:25:36 EDT, Route to Pharmacy Electronically, [id number], [facility]/pharmacy #0843 Start Date: [...] A DAY, # 270 tablet, 0 Refills, [facility] STORE 62482, 175.2, cm, 06/07/21 9:51:00 EST, Height, 88.3, kg, 03/12/21 9:16:00 EDT, Dry Weight Start Date: 06/14/21 Status: Ordered nicotine 2 mg oral transmucosal lozenge See Instructions, USE 1 LOZENGE UP TO EVERY 1 HOUR NEEDED FOR 10 DAYS, # 162 lozenge, 1 Refills,[facility], 10, USE 1 LOZENGE UP TO EVERY [...] # 15 Unknown, 2 Refills, [facility], 175.2, cm, 05/27/21 11:26:00 EST, Height, 88.3, kg, 03/12/21 9:16:00 EDT, Dry Weight Start Date: 06/04/21 Status: Ordered Pen [place], 31 G x 5 mm BD Ultra [...] capsule, 5 Refills, Maintenance, 06/07/21 13:14:00EST, [facility]apsule, [facility], 175.2, cm, 06/07/21 9:51:00 EST, Height, 88.3, kg, 03/12/21 9:16:00 EDT, Dry Weight Start Date: 06/07/21 Status: Ordered rosuvastatin 20 mg oral tablet 1 tablet, By Mouth, Daily, # 90 tablet, 1 Refills, Maintenance, 01/08/21 14:43:00 EDT, [facility]/pharmacy#0843, 175, cm, 12/24/20 11:20:00 EDT, [...] mild to moderate. 3MI 2012 circumflex stent 2013/[place] 4secondary to hep C 524 weeks therapy with sofosbuvir/weight based ribavirin 31494 inferolateral stent bare metal circumflex 7DR Marissa [...]
--- OUTSIDE RECORDS SUMMARY | 2024-06-01 12:03 | XMS_ITS | Continuity of Care Document ---
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) - 09/19/20 Insulin long-term use(Discharge Diagnosis) - 09/19/20 ASHD; ND 2012/stent circumflex vessel cath;abdelrahman 2018(Discharge Diagnosis) - 09/19/20 History of acute myocardial infarction of inferior wall 2012/stent(Discharge Diagnosis) - 09/19/20 Adenomatous colon polyp colonoscopy 2015(Discharge Diagnosis) - 09/19/20 GERD with esophagitis egd 2018(Discharge Diagnosis) - 09/19/20 Hypertension(Discharge Diagnosis) - 09/19/20 Hyperlipidemia(Discharge Diagnosis) - 09/19/20 Attending Physician: Ben Viera MD Allergies, Adverse [...] 10:48:07 EST, Aerosol, Route to Pharmacy Electronically, [id number], [facility]/pharmacy #[id number], 180, cm, 06/17/19 10:36:11 EST, Height Start Date: 06/17/19 Status: Ordered aspirin 81 mg oral delayed release tablet 1 tablet, By Mouth, Daily, # 30 tablet, 11 Refills, Maintenance, 06/26/20 12:19:00 EST, [facility], 175, cm, 06/25/20 16:11:00 EST, Height, 83.6, [...] Refills, Maintenance, 01/02/20 15:47:00 EDT, CR Capsule, [facility]/pharmacy #[id number], 172, cm, 12/14/19 8:02:00 EDT, Height, 97.8, kg, 08/11/19 5:24:00 EST, Dry Weight Start Date: 01/02/20 Stop Date: 12/27/20 Status: Ordered cholecalciferol 2000 intl units oral capsule 1 capsule = 2,000 International_Units, By Mouth, Daily, # 30 capsule, 5 Refills, Maintenance, 05/25/20 11:53:00 EST, Capsule, [facility]/pharmacy #0843, 175, cm, 05/24/20 12:46:00 EST, Height, 83.6, kg, 04/23/20 17:46:00 EDT, Dry Weight Start Date: 05/25/20 Status: Ordered cloNIDine 0.2 mg oral tablet 0.2 mg, 1, tablet, By Mouth, 2 times a day, # 60 tablet, Refills 5, Tot. Refills 5, Maintenance, 09/09/20 19:43:00 EST, Route to Pharmacy Electronically, [facility]/pharmacy #[id number], 175, cm, 07/20/20 10:29:00 EST, Height, 83.6, kg, 04/23/20 17:46:00 EDT, Dry... Start Date: 09/09/20 Status: Ordered Colace sodium 100 mg oral capsule 100 mg, 1, capsule, By Mouth, 2 times a day, PRN, # 60 capsule, Refills 5, Tot. Refills 5, Maintenance, for constipation, 02/27/20 15:25:00 EDT, Route to Pharmacy Electronically, [facility]/pharmacy #[id number], 172, cm, 12/14/19 8:02:00 EDT, Height, 97.8, kg, 02/... Start Date: 02/27/20 Status: Ordered Crestor 20 mg oral tablet 1 tablet = 20 mg, By Mouth, Daily, # 90 tablet, 3 Refills, Maintenance, 01/02/20 15:46:00 EDT, Tablet, [facility]/pharmacy #0843, 172, cm, 12/14/19 8:02:00 EDT, Height, 97.8, kg, 08/11/19 5:24:00 EST, Dry Weight Start Date: 01/02/20 Status: Ordered Daily Simone oral tablet 1 tablet, By Mouth, Daily, # 90 tablet, 3 Refills, Maintenance, 09/21/20 11:35:00 EDT, Tablet, [facility]/pharmacy #0843, Partial fill upon patient request if the prescription is for a schedule II opioid drug., 1 tablet By Mouth Daily, 175, cm, 09/21/20 11:2... Start Date: 09/21/20 Status: Ordered Daily Simone oral tablet 1 tablet, By Mouth, Daily, # 30 tablet, 5 Refills, Maintenance, 09/19/20 8:25:00 EDT, Tablet, [facility]/pharmacy #0843, 1 tablet By Mouth Daily,x30 days, 175, cm, 07/20/20 10:29:00 EST, Height, 83.6, kg, 04/23/20 17:46:00 EDT, Dry Weight Start Date: 09/19/20 Stop Date: 03/18/21 Status: Ordered folic acid 1 mg oral tablet 1 mg, 1, tablet, By Mouth, Daily, # 30 tablet, Refills 5, Tot. Refills 5, Maintenance, 07/04/20 13:24:00 EST, Route to Pharmacy Electronically, [facility]/pharmacy #[id number], 175, cm, 06/25/20 16:11:00 EST, [...] Refills, Maintenance, 06/21/20 16:44:00 EST, REC Powder, [facility]/pharmacy #[id number], Partial fill upon patient request if the prescription is for a schedule II opioid drug., 240 mL By Mouth Daily,Instr... Start Date: 06/21/20 Status: Ordered LaMICtal 100 mg oral tablet 100 mg, 1, tablet, By Mouth, 2 times a day, # 60 tablet, Refills 3, Tot. Refills 3, Maintenance, 01/21/19 11:25:36 EDT, Route to Pharmacy Electronically, [id number], [facility]/pharmacy #[id number] Start Date: 01/21/19 [...] 08/27/20 8:08:00 EST, Route to Pharmacy Electronically, [facility]/pharmacy #[id number], 175, cm, 07/20/20 10:29:00 EST, Height, 8... Start Date: 08/27/20 Status: Ordered nicotine 2 mg oral transmucosal lozenge See Instructions, suck, up to q1 hrs 10 daily, # 144 lozenge, 1 Refills, Maintenance, 09/25/20 14:21:00 EDT, [facility]/pharmacy #0843, suck, up to q1 hrs 10 daily, 175, cm, 09/21/20 11:29:00 EDT, Height, 83.6, kg, 04/23/20 17:46:00 EDT, Dry Weight Start Date: 09/25/20 Status: Ordered nicotine 4 mg oral transmucosal lozenge 1 lozenge = 4 mg, By Mouth, Every hour, dispense 2 boxes of 81 count as directed on package labeling, # 162 lozenge, 3 Refills, Maintenance, 09/25/20 14:39:00 EDT, [facility]/pharmacy #[id number], 1 lozenge By Mouth Every [...] 2 Refills, Soft Stop, 06/01/20 13:51:00 EST, [facility]/pharmacy #[id number], 175, cm, 05/24/20 12:46:00 EST, [...] 9:13:... Start Date: 02/01/20 Status: Ordered Pen [place], 31 G x 5 mm BD Ultra [...] 09/21/19 10:41:00 EDT, Route to Pharmacy Electronically, [facility]/pharmacy #[id number], 172, cm, 09/05/19 16:17:00 EST, [...] EST, Tablet, this was previously sent to [facility] pharmacy Start Date: 05/17/19 Stop Date: 05/11/20 Status: Ordered Tresiba FlexTouch 200 units/mL subcutaneous solution = 70 units, Subcutaneous Infusion, Daily, at bedtime, # 15 mL, 5 Refills, Maintenance, 08/04/19 13:13:00 EST, [facility]/pharmacy #[id number], 180, cm, 08/01/19 10:43:00 EST, Height Start Date: 08/04/19 Status: Ordered Problem List Condition Effective Dates Status Health Status Inform ant Acute pancreatitis(Confirmed) 07/16/16 Active Adenomatous colon polyp colo noscopy 2015(Confirmed) Active Bipolar disorder(Confirmed) Active Cervical spondylosis(Confirmed) Active Chronic back pain DJD(Confirmed) Active Glomerulonephritis,mesangial proliferative/fibrillary(Confirmed) 1, 2 Active ASHD; ND 2012/stent circumfl ex vessel cath;abdelrahman 2018(Confirmed) 3 Active Epididymal cyst rt(Confirmed) 04/18/19 Active Low serum vitamin D(Confirmed) Active Dizzinesses(Confirmed) Active Insulin long-term use(Confirmed) Active Dysphagia(Confirmed) Active Ex-smoker quit 2018c t enrolled(Confirmed) Active [...] mild to moderate. 3MI 2012 circumflex stent ND 4secondary to hep C 524 weeks therapy with sofosbuvir/weight based ribavirin 60858 inferolateral stent bare metal circumflex 7DR Marissa sx;Dr Schwartz 8repeat colonoscopy in 5 years Diagnosis Diagnosis Type Effective Dates Health Status Clinical Service Informant Type 2 diabetes mellitus with diabetic nephropathy Discharge Diagnosis 09/19/20 Insulin long-term use Discharge Diagnosis 09/19/20 ASHD; ND 2012/stent circumflex vessel cath;abdelrahman 2019 Discharge Diagnosis 09/19/20 History of acute myocardial infarction of inferior wall 2012/stent Discharge Diagnosis 09/19/20 Hypertension Discharge Diagnosis 09/19/20 Hyperlipidemia Discharge Diagnosis 09/19/20 GERD with esophagitis egd 2018 Discharge Diagnosis 09/19/20 Adenomatous colon polyp colonoscopy 2015 Discharge Diagnosis 09/19/20 Vital Signs Most recent to oldest [Reference Range]: 1 2 3 Height 175 cm (09/21/20 11:29 AM) 175 cm (09/21/20 11:19 AM) 175 cm (09/21/20 11:06 AM) Weight 87.8 kg (09/21/20 11:06 AM) Oxygen Saturation [94-100 %] 98 % (09/21/20 11:06 AM) Pulse Rate [55-90 bpm] 76 bpm (09/21/20 11:06 AM) Body Mass Index [18.5-24.99] 28.67 *H* (09/21/20 11:06 AM) Blood Pressure [90-138/55-84 mm Hg] 136/70mm Hg (09/21/20 11:29 AM) 155/77mm Hg *H* (09/21/20 11:19 AM) 160/74mm Hg *H* (09/21/20 11:06 AM) Blood pressure sites Arm, left (09/21/20 11:29 AM) Arm, left (09/21/20 11:06 AM) Social History Social History Type Response Smoking Status Former smoker, quit more than 30 days ago; Interested in cessation: No; Other: quit; Tobacco use times per day: prio 1/2-1 ppd; Total pack years: 38; Started at age: 12; Stopped at age: 63; entered on: 07/20/20 Sex
--- OUTSIDE RECORDS SUMMARY | 2024-06-01 12:03 | XMS_ITS | Continuity of Care Document ---
Author Organization [facility] Address [address] [place] [address]- Care Team Providers Care Boiler Coverer Helper Name Role Phone Carrie Kelly RIVERA Primary Care Physician [phone] Encounter [facility] Date(s): 07/23/23 - 08/22/23 [facility] [address] [place] [address]- Attending Physician: Radha Biggs Admitting Physician: Radha Biggs Referring Physician: Radha Biggs Allergies, Adverse Reactions, Alerts Substance Reaction Severity Status Bee Stings Active Immunizations Given and Recorded Vaccine Date Status Refusal Reason SARS-CoV-2(COVID-19)mRNA-LNP vac(ool093) 05/08/23 Recorded pneumococcal 20-valent conjugate vaccine 1 [...] 02/03/23 Recorded zoster vaccine, inactivated 08/09/19 Recorded [id number] 12y+ bivalent booster vax 05/17/22 Recorded SARS-CoV-2 [...] adult vaccine 4 12/10/10 Given 1Result Comment: [id number] 2Result Comment: [id number] 3Admin Note: pt waited 10 mins post inj no adverse reaction noted.j a 4Admin Note: PT WAITED 10 MIN WITH NO ADVERSE REACTION. MH Medications aspirin 81 mg oral delayed release tablet 1 tablet, By Mouth, Daily, # 90 tablet, 1 Refills, Maintenance, 06/02/23 11:42:00 EST, [facility]/pharmacy#0843, 168, cm, 05/01/23 14:45:00 EDT, Height, 93, [...] capsule, 1 Refills, Maintenance, 06/30/23 7:20:00 EST, [facility], 168, cm, 05/01/23 14:45:00 EDT, Height, 93, kg, 01/28/22 14:55:00 EDT, Dry Weight Start Date: 06/30/23 Status: Ordered Daily Simone oral tablet 1 tablet, By Mouth, Daily, # 90 tablet, 1 Refills, Maintenance, 06/30/23 7:20:00 EST, [facility], 90, TAKE 1 TABLET BY MOUTH EVERY [...] Refills, Maintenance, 06/26/23 6:50:00 EST, [facility], 168, cm, 05/01/23 14:45:00 EDT, Height, 93, kg, 01/28/22 14:55:00 EDT, Dry Weight Start Date: 06/26/23 Status: Ordered folic acid 1 mg oral tablet 1, tablet, By Mouth, Daily, # 90 tablet, Refills 1, Tot. Refills 1, Maintenance, 07/03/23 10:01:00 EST, Route to Pharmacy Electronically, [facility]/pharmacy #[id number], 168, cm, 05/01/23 14:45:00 EDT, Height, [...] 01/21/19 11:25:36 EDT, Route to Pharmacy Electronically, [id number], [facility]/pharmacy #[id number] Start Date: 01/21/19 Stop Date: 05/21/19 Status: Ordered lamotrigine 100 mg oral tablet Refills 0, Maintenance, 05/01/23 15:28:00 EDT, Partial fill upon patient request if the prescription is for a schedule II opioid drug. Start Date: 05/01/23 Status: Ordered lisinopril 40 mg oral tablet 1 tablet, By Mouth, Daily, # 90 tablet, 1 Refills, Maintenance, 08/17/23 13:33:00 EST, [facility]/pharmacy#0843, 168, cm, 07/23/23 15:05:00 EST, Height, 93, kg, 01/28/22 14:55:00 EDT, Dry Weight Start Date: 08/17/23 Status: Ordered Metoprolol Tartrate 50 mg oral tablet 1.5 tablet, By Mouth, 2 times a day, # 270 tablet, 1 Refills, Maintenance, 02/20/23 7:15:00 EDT, [facility], 175, cm, 10/09/22 16:51:00 EDT, Height, 93, kg, 01/28/22 14:55:00 EDT, Dry Weight Start Date: 02/20/23 Status: Ordered nicotine 14 mg/24 hr transdermal film, extended release See Instructions, apply to skin, # 14 patch, 1 Refills, Maintenance, 07/23/23 15:53:00 EST, Patch, [facility]/pharmacy #[id number], Partial fill upon patient request if [...] tablet, 0 Refills, Maintenance, 10/03/22 15:53:00 EDT, [facility]/pharmacy #[id number], 175, cm, 09/17/22 13:59:00 EDT, Height,... Start Date: 10/03/22 Status: Ordered NovoLOG FlexPen 100 units/mL injectable solution See Instructions, INJECT 0-18 UNITS SUBCUTANEOUSLY WITH MEALS FOR SLIDING SCALES, # 15 Unknown, 2 Refills, 11/07/22 0:09:00 EDT, [facility]/pharmacy #[id number], 175, cm, 10/09/22 16:51:00 EDT, Height, 93, kg, 01/28/22 14:55:00 EDT, Dry Weight Start Date: 11/07/22 Status: Ordered Pen [place], 31 G x 5 mm BD Ultra [...] 2 Refills, Maintenance, 07/03/23 9:40:00 EST, [facility]/pharmacy #0843, Partial fill upon patient request if the prescription is for a schedule II opioid drug., 168, cm, 05/01/23 14:45:00 EDT, Height, 93, kg... Start Date: 07/03/23 Status: Ordered rosuvastatin 20 mg oral tablet 1 tablet, By Mouth, Daily, # 90 tablet, 1 Refills, Maintenance, 03/29/23 14:43:00 EDT, [facility], 175, cm, 10/09/22 16:51:00 EDT, Height, 93, [...] 4, GFR 15-29 ml/min Confirmed Active ASHD; [place] 2012/stent circumflex vessel cath;abdelrahman 2018 3 Confirmed [...] mild to moderate. 3MI 2012 circumflex stent 2012/CA 4secondary to hep C 524 weeks therapy with sofosbuvir/weight based ribavirin 94794 inferolateral stent bare metal circumflex 7DR Marissa saucedax;Dr Schwartz 8hyperplatic polyp repeat screening in 2025 9repeat colonoscopy in 5 years Vital Signs Most recent to oldest [Reference Range]: 1 Height 176 cm (09/20/13 5:25 PM) Weight 92.7 kg (3/18/14 5:25 PM) Pulse Rate [55-90 bpm] 68 [...] Cardiac Rehab Plan of Care Authored Date: [id number] * Darcy Richards: PERFORM, SIGN, VERIFY Event Display: Patient Education/Instruction Authored Date: [id number] [facility] Clinical Summary Person Information Name [...] tablet, Oral, Daily, with breakfast, Refills: 1 Honeygo (lithium 450 mg oral tablet, extended release) [...] primary care provider, you may find a [facility] provider by calling [facility] itembase [facility] at [phone]. Patient Education Information Follow-up Details: Patient Education Material: Please follow instructions discussed with your provider during this visit as well as any education documents you were given today. Cardiology Outpatient Note * Jeffrey Leon MD: SIGN Jeffrey Leon MD: SIGN, SIGN, VERIFY Event Display: Cardiology Note Office Authored Date: [id number] Patient: BRITTANY BORDEN Age: 58 years Sex: [...] Team Personnel Name: Jeffrey Mccoy MD Position: [facility] Renal MD Member Role: Lifetime Consulting Physician Address: Address: [address] [place] [address] [facility] [place], [place] [address] Name: Kelly Butler NP Position: [facility] PCO Associate Professional Member Role: PCP Address: Address: [address] [place] [address]- Name: Kristin Mckenzie Position: [facility] Outreach Member Role: Lifetime Consulting Physician Name: Prieto Tobin RN Position: [facility] RN Member Role: Primary Care Nurse Name: Jonn Hui DO Position: [facility] Renal MD Member Role: Lifetime Consulting Physician Address: Address: [address] [place], [place] [address] [place], [place] [address] Name: Luis Angel Stephen RN Position: [facility] RN Member Role: Primary Care Nurse Care Team Related Persons Name: CARLOS A BORDEN Address: [address] [place] [address] Name: LEVI BORDEN Address: [address] [place] [address]
--- OUTSIDE RECORDS SUMMARY | 2024-06-01 12:03 | XMS_ITS | Continuity of Care Document ---
Author Organization [facility] Address [address] [place] [address]- Care Team Providers Care Net Lead Developer Name Role Phone Carrie TAG METER OPERATORKelly Primary Care Physician [phone] [facility] Date[facility]s): 02/07/22 - 03/09/22 [facility] [address] [place] [id number] Allergies, Adverse Reactions, Alerts Substance Reaction [...] 5 Refills, Maintenance, 06/05/21 15:57:00 EST, [facility]/pharmacy #[id number], 175.2, cm, 05/27/21 11:26:00 EST, Height, 88.3, kg, 03/12/21 9:16:00 EDT, Dry Weight Start Date: 06/05/21 Status: Ordered folic acid 1 mg oral tablet 1, tablet, By Mouth, Daily, # 30 tablet, Refills 5, Tot. Refills 5, Maintenance, 07/25/21 15:59:00 EST, Route to Pharmacy Electronically, [facility]/pharmacy #[id number], 175.2, cm, 06/07/21 9:51:00 EST, [...] 01/21/19 11:25:36 EDT, Route to Pharmacy Electronically, [id number], [facility]/pharmacy #[id number] Start Date: 01/21/19 Stop Date: 05/21/19 Status: Ordered lisinopril 40 mg oral tablet 1 tablet = 40 mg, By Mouth, Daily, # 30 tablet, 3 Refills, Maintenance, 09/17/21 10:50:00 EDT, Tablet, [facility]/pharmacy #0843, Partial fill upon patient request if the prescription is for a schedule II opioid drug., 175.2, cm, 07/31/21 11:20:00 EST, Heigh... Start Date: 09/17/21 Status: Ordered Metoprolol Tartrate 50 mg oral tablet 1.5 tablet, By Mouth, 2 times a day, # 270 tablet, 0 Refills, [facility], 175.2, cm, 11/15/21 11:18:00 EDT, Height, 88.3, kg, 03/12/21 9:16:00 EDT, Dry Weight Start Date: 12/12/21 Status: Ordered nicotine 21 mg/24 hr transdermal film, extended release 1 patch, Topically, Daily, for 30 days, # 30 patch, 1 Refills, Acute 04/18/22 14:19:00 EDT, 02/17/22 14:19:00 EDT, Patch, [facility]/pharmacy #[id number], 1 patch Topically Daily,x30 days, [...] 0 Refills, Maintenance, 12/31/21 17:21:00 EDT, [facility]/pharmacy #[id number], 175.2, cm, 12/18/21 14:10:00 EDT, Height... Start Date: 12/31/21 Status: Ordered NovoLOG FlexPen 100 units/mL injectable solution See Instructions, INJECT 0-18 UNITS SUBCUTANEOUSLY WITH MEALS FOR SLIDING SCALES, # 15 Unknown, 2 Refills, [facility], 175.2, cm, 05/27/21 11:26:00 EST, Height, 88.3, kg, 03/12/21 9:16:00 EDT, Dry Weight Start Date: 06/04/21 Status: Ordered Pen [place], 31 G x 5 mm BD Ultra [...] 5 Refills, Maintenance, 11/19/21 11:25:00EDT, Capsule, [facility]/pharmacy #0843, 175.2, cm, 11/15/21 11:18:00 EDT, Height, 88.3, kg, 03/12/21 9:16:00 EDT, Dry Weight Start Date: 11/19/21 Status: Ordered rosuvastatin 20 mg oral tablet 1 tablet, By Mouth, Daily, # 90 tablet, 1 Refills, [facility] 47[facility], 175, cm, 01/29/22 15:12:00 EDT,Height, 93, kg, [...] Refills, Maintenance, 12/18/21 14:33:00 EDT, Suspension, [facility]/pharmacy #0843, 1 drops Eyes, Both 2 [...] # 30 capsule, 5 Refills, [facility], 175.2, cm, 11/15/21 11:18:00 EDT, Height, 88.3, [...] 524 weeks therapy with sofosbuvir/weight based ribavirin 86004 inferolateral stent bare metal circumflex 7DR Molddoverno [...] Team Personnel Name: Kelly Butler NP Address: [address] [place] [address]-
--- OUTSIDE RECORDS SUMMARY | 2024-06-01 12:03 | XMS_ITS | Continuity of Care Document ---
Author Organization [facility] Shawn Lazaro lt Address [address] [place] [address]- Care Team Providers Care Transmission And Protection Engineer Name Role Phone Carrie LUBRICATING MACHINE TENDERKelly Primary Care Physician [phone] [facility] Date(s): 01/27/24 - 02/26/24 [facility] Adult [address] [place] [address]- Allergies, Adverse Reactions, Alerts Substance Reaction Severity Status Bee Stings Active Immunizations Given and Recorded Vaccine Date Status Refusal Reason SARS-CoV-2(COVID-19)mRNA-LNP vac([id number]) 12/31/23 Recorded SARS-CoV-2(COVID-19)mRNA-LNP vac(wjh413) 05/08/23 Recorded tetanus/diphtheria/pertussis, acel(Tdap) 10/15/23 Recorded tetanus/diphtheria/pertussis, [...] 02/03/23 Recorded zoster vaccine, inactivated 08/09/19 Recorded [id number] 12y+ bivalent booster vax 05/17/22 Recorded SARS-CoV-2 [...] adult vaccine 4 12/10/10 Given 1Result Comment: [id number] 2Result Comment: [id number] 3Admin Note: pt waited 10 mins post [...] 0 Refills, Maintenance, 02/02/24 15:25:00 EDT, [id number], with dose counter. any albuterol inhaler covered [...] day prn cough (Max 600 mg in y30-clkn period), # 30 capsule, 0 Refills, Maintenance, [...] Refills, Maintenance, 01/11/24 14:46:00 EDT, Tablet, [facility]/pharmacy #[id number], Partial fill upon patient request if the prescription is for a schedule II opioid drug., 168, cm, 01/11/24 14:42:00 EDT, Height,... Start Date: 01/11/24 Status: Ordered DilTIAZem (Eqv-Cardizem CD) 180 mg/24 hours oral capsule, extended release 1 capsule, By Mouth, Daily, # 90 capsule, 0 Refills, Maintenance, 02/12/24 11:53:00 EDT, [facility], 168, cm, 02/03/24 10:41:00 EDT, Height Start [...] 01/21/19 11:25:36 EDT, Route to Pharmacy Electronically, [id number], [facility]/pharmacy #[id number] Start Date: 01/21/19 Stop Date: 05/21/19 Status: Ordered lamotrigine 100 mg oral tablet TAKE 1 TABLET BY MOUTH TWICE A DAY Start Date: 02/26/24 Status: Ordered lisinopril 40 mg oral tablet 1 tablet, By Mouth, Daily, # 90 tablet, 1 Refills, Maintenance, 01/26/24 9:20:00 EDT, [facility] STORE 20709, 168, cm, 01/11/24 14:42:00 EDT, Height, 93, kg, 01/28/22 14:55:00 EDT, Dry Weight Start Date: 01/26/24 Status: Ordered methylphenidate 5 mg oral tablet TAKE 1 TABLET BY MOUTH THREE TIMES A DAY Start Date: 01/11/24 Status: Ordered Metoprolol Tartrate 50 mg oral tablet 1.5 tablet, By Mouth, 2 times a day, # 270 tablet, 1 Refills, Maintenance, 09/16/23 14:32:00 EDT, [facility]/pharmacy #[id number], 168, cm, 07/23/23 15:05:00 EST, Height, 93, kg, 01/28/22 14:55:00 EDT, Dry Weight Start Date: 09/16/23 Status: Ordered nitroglycerin 0.4 mg sublingual tablet See Instructions, DISSOLVE 1 UNDER TONGUE EVERY 5 MINUTES NEEDED FOR CHEST PAIN CALL MD AFTER TAKING 3 TABS IN TOTAL IN A DAY, # 100 tablet, 0 Refills, Maintenance, 10/03/22 15:53:00 EDT, [facility]/pharmacy #[id number], 175, cm, 09/17/22 13:59:00 [...] mL, 0 Refills, Maintenance, 02/02/24 15:28:00 EDT, [place], [facility], Partial fill upon patient... Start Date: 02/02/24 Status: Ordered Pen [place], 31 G x 5 mm BD Ultra [...] Refills, Maintenance, 02/04/24 16:39:00 EDT, [facility], 168, cm, 02/03/24 10:41:00 EDT, Height Start [...] Active Chronic back pain DJD Confirmed Active Glomerulonephritis,ullao ngial proliferative/fibrillar y 1, 2 Confirmed Active [...] 524 weeks therapy with sofosbuvir/weight based ribavirin 22016 inferolateral stent bare metal circumflex 7DR Molddoverno [...] Personnel Name: Darius HICKMAN, Jeffrey Lopez Position: [facility] Renal MD Member Role: Lifetime Consulting Physician Address: Address: [address] [facility] [place] [address]- Name: Kelly Butler NP Position: [facility] PCO Associate Professional Member Role: PCP Address: Address: [address] [place] [address]- Name: Kristin Mckenzie Position: [facility] Outreach Member Role: Lifetime Consulting Physician Name: Fortunato Sin RN Position: [facility] RN Member Role: Primary Care Nurse Name: Prieto Tobin RN Position: [facility] RN Member Role: Primary Care Nurse Name: Jonn Hui DO Position: [facility] Renal MD Member Role: Lifetime Consulting Physician Address: Address: [address] [facility] [place] [address]- Name: Zafar CALVO, Luis Angel Rojas Position: [facility] RN Member Role: Primary Care Nurse Care Team Related Persons Name: CARLOS A BORDEN Address: [address] [place] [address] Name: LEVI BORDEN Address: [address] [place] [address]
--- OUTSIDE RECORDS SUMMARY | 2024-06-01 12:03 | XMS_ITS | Continuity of Care Document ---
Author Organization [facility] Nando Escobar Lazaro lt Address [address] [place] [address]- Care Team Providers Care Temporary Data Entry Clerk Name Role Phone Carrie DATA COLLECTION INTERVIEWERKelly Primary Care Physician [phone] [facility] 10[facility]22 - 11/23/22 [facility] [place] Adult [address] [place] [address]- Allergies, Adverse Reactions, Alerts Substance Reaction Severity [...] influenza virus vaccine, inactivated 04/16/10 Give n [id number] 12y+ bivalent booster vax 05/17/22 Recorded SARS-CoV-2 [...] Gm, 0 Refills, Maintenance, 09/05/22 9:15:00 EST, [place],[facility]/pharmacy #[id number], Partial fill upon patient request if the prescription is for a schedule II opioid drug., 1 sprays Nares, Both 2 times a day, 175, c... Start Date: 09/05/22 Status: Ordered folic acid 1 mg oral tablet 1, tablet, By Mouth, Daily, # 30 tablet, Refills 5, Tot. Refills 5, Maintenance, 08/15/22 10:27:00 EST, Route to Pharmacy Electronically, [facility]/pharmacy #[id number], 175, cm, 07/17/22 [...] 01/21/19 11:25:36 EDT, Route to Pharmacy Electronically, [id number], [facility]/pharmacy #[id number] Start Date: 01/21/19 Stop Date: 05/21/19 Status: Ordered lisinopril 40 mg oral tablet 1 tablet, By Mouth, Daily, # 90 tablet, 0 Refills, Maintenance, 10/24/22 10:11:00 EDT, [facility]/pharmacy#[id number], 175, cm, 10/09/22 16:51:00 EDT, Height, 93, kg, 01/28/22 14:55:00 EDT, Dry Weight Start Date: 10/24/22 Status: Ordered Metoprolol Tartrate 50 mg oral tablet 1.5 tablet, By Mouth, 2 times a day, # 270 tablet, 1 Refills, Maintenance, 09/01/22 13:28:00 EST, [id number], 175, cm, 07/17/22 10:33:00 EST, Height, 93, kg, 01/28/22 14:55:00 EDT, Dry Weight Start Date: 09/01/22 Status: Ordered Nicotine 7 mg/24 hour patch 1 patch, Topically, Daily, # 30 patch, 0 Refills, Maintenance, 11/17/22 11:45:00 EDT, Patch, [facility]/pharmacy #[id number], Partial fill upon [...] tablet, 0 Refills, Maintenance, 10/03/22 15:53:00 EDT, [facility]/pharmacy #[id number], 175, cm, 09/17/22 13:59:00 EDT, Height,... Start Date: 10/03/22 Status: Ordered NovoLOG FlexPen 100 units/mL injectable solution See Instructions, INJECT 0-18 UNITS SUBCUTANEOUSLY WITH MEALS FOR SLIDING SCALES, # 15 Unknown, 2 Refills, 11/07/22 0:09:00 EDT, [facility]/pharmacy #[id number], 175, cm, 10/09/22 16:51:00 EDT, Height, 93, kg, 01/28/22 14:55:00 EDT, Dry Weight Start Date: 11/07/22 Status: Ordered Pen [place], 31 G x 5 mm BD Ultra [...] Refills, Maintenance, 05/21/22 13:33:00 EST, [facility], 175, cm, 05/09/22 11:08:00 EDT, Height, 93, [...] 2 Refills, Maintenance, 04/08/22 9:12:00 EDT, Solution, [facility]/pharmacy #[id number], Partial fill upon [...] mild to moderate. 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 2013/[place] 4secondary to hep C 524 weeks therapy with sofosbuvir/weight based ribavirin 59633 inferolateral stent bare metal circumflex 7DR Marissa [...] Personnel Name: Jeffrey Mccoy MD Position: [facility] Renal MD Member Role: Lifetime Consulting Physician Address: Address: [address] [place] [address] [facility] [place] [address]- Name: Kelly Butler NP Position: [facility] PCO Associate Professional Member Role: PCP Address: Address: [address] [place] [address]- Name: Kristin Mckenzie Position: [facility] Outreach Member Role: Lifetime Consulting Physician Name: Prieto Tobin RN Position: S RN Member Role: Primary Care Nurse Name: Jonn Hui DO Position: [facility] Renal MD Member Role: Lifetime Consulting Physician Address: Address: [address] [place], [place] [address] [place] [address]- Name: Luis Angel Stephen RN Position: [facility] RN Member Role: Primary Care Nurse Name: Tamie Baird RN Position: S RN Member Role: Primary Care Nurse Care Team Related Persons Name: CARLOS A BORDEN Address: home [address] [place] [address] Name: LEVI BORDEN Address: home [address] [place] [address]
--- OUTSIDE RECORDS SUMMARY | 2024-06-01 12:03 | XMS_ITS | Continuity of Care Document ---
Author Organization [facility] Nando Escobar Lazaro lt Address [address] [place] [address]- Care Team Providers Care Various Exceptionalities Teacher Name Role Phone Carrie BUSINESS SERVICES ADMINISTRATORKelly Primary Care Physician [facility] Date[facility]): 03/01/24 - 03/31/24 [facility] Adult [address] [place] [address]- Allergies, Adverse Reactions, Alerts Substance Reaction Severity Status Bee Stings Active Immunizations Given and Recorded Vaccine Date Status Refusal Reason SARS-CoV-2(COVID-19)mRNA-LNP vac([id number]) 12/31/23 Recorded SARS-CoV-2(COVID-19)mRNA-LNP vac([id number]) 05/08/23 Recorded tetanus/diphtheria/pertussis, acel(Tdap) 10/15/23 Recorded tetanus/diphtheria/pertussis, [...] 02/03/23 Recorded zoster vaccine, inactivated 08/09/19 Recorded [id number] 12y+ bivalent booster vax 05/17/22 Recorded SARS-CoV-2 [...] adult vaccine 4 12/10/10 Given 1Result Comment: [id number] 2Result Comment: [id number] 3Admin Note: pt waited 10 mins post inj no adverse reaction noted.j a 4Admin Note: PT WAITED 10 MIN WITH NO ADVERSE REACTION. Medications albuterol 90 mcg/inh inhalation powder 1 puffs, Inhalation, Every 6 hours, PRN Wheezing/Shortness of Breath, # 1 each, 0 Refills, Maintenance, 02/15/24 13:38:00 EDT, Powder, [facility]/pharmacy #[id number], Partial fill upon patient request if the prescription is for a schedule II opioid drug., 1 puffs... Start Date: 02/15/24 Status: Ordered amLODIPine 10 mg oral tablet 10 mg, By Mouth, Daily, # 30 tablet, Refills 5, Tot. Refills 5, Maintenance, 03/11/24 11:59:00 EDT,Route to Pharmacy Electronically, [facility]/pharmacy #[id number], Partial fill upon patient request if the prescription is for a schedule II opioid drug., 168, cm,... Start Date: 03/11/24 Stop Date: 09/07/24 Status: Ordered aspirin 81 mg oral delayed release tablet 1 tablet, By Mouth, Daily, # 90 tablet, 1 Refills, Maintenance, 01/25/24 21:53:00 EDT, [facility]/pharmacy#0843, 168, cm, 01/11/24 14:42:00 EDT, Height, [...] 02/29/24 11:18:00 EDT, Route to Pharmacy Electronically, [facility]/pharmacy #[id number], Partial fill upon patient request if the prescriptio... Start Date: 02/29/24 Stop Date: 03/14/24 Status: Ordered D3 50 mcg (2000 intl units) oral capsule 1 capsule, By Mouth, Daily, # 90 capsule, 0 Refills, Maintenance, 12/09/23 14:09:00 EDT, [facility]/pharmacy #[id number], 168, cm, 10/27/23 15:34:00 EDT, Height, 93, kg, 01/28/22 14:55:00 EDT, Dry Weight Start Date: 12/09/23 Status: Ordered Daily Simone oral tablet 1 tablet, By Mouth, Daily, # 90 tablet, 1 Refills, Maintenance, 03/17/24 9:34:00 EDT, [facility]/pharmacy #[id number], 90, 1 tablet By Mouth Daily, 168, cm, 03/17/24 9:26:00 EDT, Height Start Date: 03/17/24 Status: Ordered dapagliflozin 10 mg oral tablet 1 tablet = 10 mg, By Mouth, Daily, # 30 tablet, 0 Refills, Maintenance, 01/11/24 14:46:00 EDT, Tablet, [facility]/pharmacy #[id number], Partial fill upon patient [...] 02/17/24 7:23:00 EDT, Route to Pharmacy Electronically, [facility]/pharmacy [...] 01/21/19 11:25:36 EDT, Route to Pharmacy Electronically, [id number], [facility]/pharmacy #[id number] Start Date: 01/21/19 Stop Date: 05/21/19 Status: Ordered lisinopril 10 mg oral tablet 10 mg, 1, tablet, By Mouth, Daily, for 30 days, DECREASED STRENGTH, # 30 tablet, Refills 0, Tot. Refills 0, Acute 04/16/24 9:47:00 EDT, 03/17/24 9:47:00 EDT, [id number], cm, 03/17/24 9:46:00 [...] tablet, 0 Refills, Maintenance, 03/17/24 14:24:00 EDT, [facility]/pharmacy #[id number], 168, cm, 03/17/24 9:46:00 EDT, Height Start Date: 03/17/24 Status: Ordered nitroglycerin 0.4 mg sublingual tablet See Instructions, DISSOLVE 1 UNDER TONGUE EVERY 5 MINUTES NEEDED FOR CHEST PAIN CALL MD AFTER TAKING 3 TABS IN TOTAL IN A DAY, # 100 tablet, 0 Refills, Maintenance, 10/03/22 15:53:00 EDT, [facility]/pharmacy #[id number], 175, cm, 09/17/22 13:59:00 EDT, Height,... Start Date: 10/03/22 Status: Ordered NovoLOG FlexPen 100 units/mL injectable solution See Instructions, INJECT 0-18 UNITS SUBCUTANEOUSLY WITH MEALS FOR SLIDING SCALES, # 15 Unknown, 2 Refills, 01/12/24 14:36:00 EDT, [facility]/pharmacy #[id number], MAX DAILY DOSE [...] mL, 0 Refills, Maintenance, 02/02/24 15:28:00 EDT, [id number], Partial fill upon patient... Start Date: 02/02/24 Status: Ordered Pen [place], 31 G x 5 mm BD Ultra [...] Refills, Maintenance, 02/04/24 16:39:00 EDT, [facility], 168, cm, 02/03/24 10:41:00 EDT, Height Start [...] 524 weeks therapy with sofosbuvir/weight based ribavirin 35215 inferolateral stent bare metal circumflex 7DR Molddoverno [...] MD Position: [facility] Renal MD Member Role: Lifetime Consulting Physician Address: Address: [address] [place] [address] [address] [facility] [place], [place] [address] Name: Kelly Butler NP Position: [facility] PCO Associate Professional Member Role: PCP Address: Address: [address] [place] [address]- Name: Kristin Mckenzie Position: [facility] Outreach Member Role: Lifetime Consulting Physician Name: Fortunato Sin RN Position: [facility] RN Member Role: Primary Care Nurse Name: Nury Watts RN Position: [facility] RN Member Role: Primary Care Nurse Name: Antonia Mena NP Position: [facility] Associate Professional Member Role: Lifetime Consulting Provider Address: Address: [address] [place], [place] [address] [place], [place] [address] Name: Prieto Tobin RN Position: [facility] RN Member Role: Primary Care Nurse Name: Ashleigh Reynoso RN Position: S RN Member Role: Primary Care Nurse Name: Jonn Hui DO Position: [facility] Renal MD Member Role: Lifetime Consulting Physician Address: Address: [address] [place], [place] [address] [place], [place] [address] Name: Luis Angel Stephen RN Position: S RN Member Role: Primary Care Nurse Name: Brandan Nogueira RN Position: [facility] RN Member Role: Primary Care Nurse Care Team Related Persons Name: CARLOS A BORDEN Address: [address] [place] [address] Name: LEVI BORDEN Address: [address] [place] [address]
--- OUTSIDE RECORDS SUMMARY | 2024-06-01 12:03 | XMS_ITS | Continuity of Care Document ---
Author Organization [facility] Address [address] [place] [address]- Care Team Providers Care Broom Maker Name Role Phone Carrie Kelly RIVERA Primary Care Physician [phone] [facility]s): 11/16/23 - 12/16/23 [facility] [address] [place] [address] [place] Allergies, Adverse Reactions, Alerts Substance Reaction Severity Status Bee Stings Active Immunizations Given and Recorded Vaccine Date Status Refusal Reason tetanus/diphtheria/pertussis, acel(Tdap) 10/15/23 Recorded tetanus/diphtheria/pertussis, acel(Tdap) 07/28/11 Given SARS-CoV-2(COVID-19)mRNA-LNP vac([id number]) 05/08/23 Recorded pneumococcal 20-valent conjugate vaccine 1 [...] 02/03/23 Recorded zoster vaccine, inactivated 08/09/19 Recorded [id number] 12y+ bivalent booster vax 05/17/22 Recorded SARS-CoV-2 [...] adult vaccine 4 12/10/10 Given 1Result Comment: [id number] 2Result Comment: [id number] 3Admin Note: pt waited 10 mins post inj no adverse reaction noted.j a 4Admin Note: PT WAITED 10 MIN WITH NO ADVERSE REACTION. MH Medications aspirin 81 mg oral delayed release tablet 1 tablet, By Mouth, Daily, # 90 tablet, 1 Refills, Maintenance, 06/02/23 11:42:00 EST, [facility]/pharmacy#[id number], 168, cm, 05/01/23 14:45:00 EDT, [...] Refills, Maintenance, 06/30/23 7:20:00 EST, [facility], 90, TAKE 1 TABLET BY MOUTH EVERY [...] Refills, Maintenance, 11/10/23 22:03:00 EDT, [facility], 168, cm, 10/27/23 15:34:00 EDT, Height, 93, kg, 01/28/22 14:55:00 EDT, Dry Weight Start Date: 11/10/23 Status: Ordered folic acid 1 mg oral tablet 1, tablet, By Mouth, Daily, # 90 tablet, Refills 1, Tot. Refills 1, Maintenance, 07/03/23 10:01:00 EST, Route to Pharmacy Electronically, [facility]/pharmacy #[id number], 168, cm, 05/01/23 14:45:00 [...] 01/21/19 11:25:36 EDT, Route to Pharmacy Electronically, [id number], [facility]/pharmacy #[id number] Start Date: 01/21/19 Stop Date: 05/21/19 Status: Ordered lamotrigine 100 mg oral tablet Refills 0, Maintenance, 05/01/23 15:28:00 EDT, Partial fill upon patient request if the prescription is for a schedule II opioid drug. Start Date: 05/01/23 Status: Ordered lisinopril 40 mg oral tablet 1 tablet, By Mouth, Daily, # 90 tablet, 1 Refills, Maintenance, 08/17/23 13:33:00 EST, [facility]/pharmacy#[id number], 168, cm, 07/23/23 15:05:00 EST, Height, 93, kg, 01/28/22 14:55:00 EDT, Dry Weight Start Date: 08/17/23 Status: Ordered Metoprolol Tartrate 50 mg oral tablet 1.5 tablet, By Mouth, 2 times a day, # 270 tablet, 1 Refills, Maintenance, 09/16/23 14:32:00 EDT, [facility]/pharmacy #[id number], 168, cm, 07/23/23 15:05:00 EST, Height, 93, kg, 01/28/22 14:55:00 EDT, Dry Weight Start Date: 09/16/23 Status: Ordered nitroglycerin 0.4 mg sublingual tablet See Instructions, DISSOLVE 1 UNDER TONGUE EVERY 5 MINUTES NEEDED FOR CHEST PAIN CALL MD AFTER TAKING 3 TABS IN TOTAL IN A DAY, # 100 tablet, 0 Refills, Maintenance, 10/03/22 15:53:00 EDT, [facility]/pharmacy #[id number], 175, cm, 09/17/22 13:59:00 EDT, Height,... Start Date: 10/03/22 Status: Ordered NovoLOG FlexPen 100 units/mL injectable solution See Instructions, INJECT 0-18 UNITS SUBCUTANEOUSLY WITH MEALS FOR SLIDING SCALES, # 15 Unknown, 2 Refills, 11/07/22 0:09:00 EDT, [id number], 175, cm, 10/09/22 16:51:00 EDT, Height, 93, kg, 01/28/22 14:55:00 EDT, Dry Weight Start Date: 11/07/22 Status: Ordered Pen [place], 31 G x 5 mm BD Ultra [...] Refills, Maintenance, 11/10/23 22:03:00 EDT, [facility], 168, cm, 10/27/23 15:34:00 EDT, Height, 93, [...] 4, GFR 15-29 ml/min Confirmed Active ASHD; [place] 2012/stent circumflex vessel cath;abdelrahman 2018 3 Confirmed [...] mild to moderate. 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 524 weeks therapy with sofosbuvir/weight based ribavirin 66309 inferolateral stent bare metal circumflex 7DR Molddoverno [...] MD Position: [facility] Renal MD Member Role: Lifetime Consulting Physician Address: Address: [address] [place] [address] [address] [facility] [place] [address]- Name: Kelly Butler NP Position: [facility] PCO Associate Professional Member Role: PCP Address: Address: [address] [place] [address]- Name: Kristin Mckenzie Position: [facility] Outreach Member Role: Lifetime Consulting Physician Name: Prieto Tobin RN Position: [facility] RN Member Role: Primary Care Nurse Name: Jonn Hui DO Position: [facility] Renal MD Member Role: Lifetime Consulting Physician Address: Address: [address] [place] [address] [address] [facility] [place] [address]- Name: Zafar CALVO, Luis Angel Rojas Position: S RN Member Role: Primary Care Nurse Care Team Related Persons Name: CARLOS A BORDEN Address: [address] [place] [address] UM Name: ELVI BORDEN Address: [address] [place] [address]
--- OUTSIDE RECORDS SUMMARY | 2024-06-01 12:03 | XMS_ITS | Continuity of Care Document ---
Author Organization [facility] Shawn Lazaro lt Address [address] [place] [address]- Care Team Providers Care Speeder Tender Name Role Phone Aylin HICKMAN, Ben Willis Primary Care Physician [place] [facility]20 [facility] [address] [place] [address]- Attending Physician: Not on Staff, Attending MD [...] 10:48:07 EST, Aerosol, Route to Pharmacy Electronically, [id number], [facility]/pharmacy #[id number], 180, cm, 06/17/19 10:36:11 EST, Height Start Date: 06/17/19 Status: Ordered aspirin 81 mg oral delayed release tablet 1 tablet, By Mouth, Daily, # 30 tablet, 11 Refills, Maintenance, 06/26/20 12:19:00 EST, [facility], 175, cm, 06/25/20 16:11:00 EST, Height, 83.6, [...] Refills, Maintenance, 01/02/20 15:47:00 EDT, CR Capsule, [facility]/pharmacy #[id number], 172, cm, 12/14/19 8:02:00 EDT, Height, 97.8, kg, 08/11/19 5:24:00 EST, Dry Weight Start Date: 01/02/20 Stop Date: 12/27/20 Status: Ordered cholecalciferol 2000 intl units oral capsule 1 capsule = 2,000 International_Units, By Mouth, Daily, # 30 capsule, 5 Refills, Maintenance, 05/25/20 11:53:00 EST, Capsule, [facility]/pharmacy #[id number], 175, cm, 05/24/20 12:46:00 EST, Height, 83.6, kg, 04/23/20 17:46:00 EDT, Dry Weight Start Date: 05/25/20 Status: Ordered cloNIDine 0.2 mg oral tablet 0.2 mg, 1, tablet, By Mouth, 2 times a day, # 60 tablet, Refills 2, Tot. Refills 2, Maintenance, 06/22/20 10:52:00 EST, Route to Pharmacy Electronically, [facility]/pharmacy #[id number], 175, cm, 05/24/20 12:46:00 EST, Height, 83.6, kg, 04/23/20 17:46:00 EDT, Dry... Start Date: 06/22/20 Status: Ordered Colace sodium 100 mg oral capsule 100 mg, 1, capsule, By Mouth, 2 times a day, PRN, # 60 capsule, Refills 5, Tot. Refills 5, Maintenance, for constipation, 02/27/20 15:25:00 EDT, [id number], cm, 12/14/19 8:02:00 EDT, Height, 97.8, kg, 02/... Start Date: 02/27/20 Status: Ordered Crestor 20 mg oral tablet 1 tablet = 20 mg, By Mouth, Daily, # 90 tablet, 3 Refills, Maintenance, 01/02/20 15:46:00 EDT, Tablet, [id number], 172, cm, 12/14/19 8:02:00 EDT, Height, 97.8, kg, 08/11/19 5:24:00 EST, Dry Weight Start Date: 01/02/20 Status: Ordered Daily Simone oral tablet 1 tablet, By Mouth, Daily, # 30 tablet, 5 Refills, Maintenance, 03/01/20 14:48:00 EDT, Tablet, [id number], 1 tablet By Mouth Daily,x30 days, 172, cm, 12/14/19 8:02:00 EDT, Height, 97.8, kg, 08/11/19 5:24:00 EST, Dry Weight Start Date: 03/01/20 Stop Date: 08/28/20 Status: Ordered folic acid 1 mg oral tablet 1 mg, 1, tablet, By Mouth, Daily, # 30 tablet, Refills 5, Tot. Refills 5, Maintenance, 07/04/20 13:24:00 EST, [facility]ically[id number], 175, cm, 06/25/20 16:11:00 EST, Height, [...] tablet, 5 Refills, Maintenance, 02/27/20 15:23:00 EDT, [facility]/pharmacy #[id number], 172, cm, 12/14/19 8:02:00 EDT, Height, 97.8, kg, 08/11/19 5:24:00 EST, Dry Weight Start Date: 02/27/20 Status: Ordered Golytely - oral powder for reconstitution 240 mL, By Mouth, Daily, bowel instruction, # 4,000 mL, 0 Refills, Maintenance, 06/21/20 16:44:00 EST, REC Powder, [facility]/pharmacy #[id number], Partial fill upon patient request if the prescription is for a schedule II opioid drug., 240 mL By Mouth Daily,Instr... Start Date: 06/21/20 Status: Ordered LaMICtal 100 mg oral tablet 100 mg, 1, tablet, By Mouth, 2 times a day, # 60 tablet, Refills 3, Tot. Refills 3, Maintenance, 01/21/19 11:25:36 EDT, Route to Pharmacy Electronically, [id number], [facility]/pharmacy #[id number] Start Date: 01/21/19 Stop [...] 01/02/20 15:45:00 EDT, Route to Pharmacy Electronically, [facility]/pharmacy #[id number], 172, cm, 12/14/19 8:02:00 EDT, Height, 9... Start Date: 01/02/20 Status: Ordered nicotine 2 mg oral transmucosal lozenge See Instructions, suck, up to q1 hrs 10 daily, # 144 lozenge, 1 Refills, Maintenance, 03/21/20 11:13:00 EDT, [facility]/pharmacy #0843, suck, up to q1 hrs 10 daily, 172, cm, 03/21/20 11:04:00 EDT, Height, 97.8, kg, 08/11/19 5:24:00 EST, Dry Weight Start Date: 03/21/20 Status: Ordered nicotine 4 mg oral transmucosal lozenge 1 lozenge = 4 mg, By Mouth, Every hour, dispense 2 boxes of 81 count, # 189 lozenge, 1 Refills, Maintenance, 07/12/20 15:43:00 EST, [facility]/pharmacy #0843, 1 lozenge By Mouth Every [...] 2 Refills, Soft Stop, 06/01/20 13:51:00 EST, [facility]/pharmacy #[id number], 175, cm, 05/24/20 12:46:00 EST, [...] Start Date: 02/01/20 Status: Ordered Pen [place], 31 G x 5 mm BD Ultra [...] 09/21/19 10:41:00 EDT, Route to Pharmacy Electronically, [facility]/pharmacy #[id number], 172, cm, 09/05/19 16:17:00 EST, [...] this was previously sent to [facility] pharmacy Start Date: 05/17/19 Stop Date: 05/11/20 Status: Ordered Tresiba FlexTouch 200 units/mL subcutaneous solution = 70 units, Subcutaneous Infusion, Daily, at bedtime, # 15 mL, 5 Refills, Maintenance, 08/04/19 13:13:00 EST, [facility]/pharmacy #[id number], 180, cm, 08/01/19 10:43:00 EST, Height Start Date: 08/04/19 Status: Ordered Problem List Condition Effective Dates Status Health Status Inform ant Acute pancreatitis(Confirmed) 07/16/16 Active Adenomatous colon polyp(Confirmed) Active Bipolar disorder(Confirmed) Active Cervical spondylosis(Confirmed) Active Chronic back pain DJD(Confirmed) Active Glomerulonephritis,mesangial proliferative/fibrillary(Confirmed) 1, 2 Active ASHD; [place] 2012/stent circumfl ex vessel [...] 524 weeks therapy with sofosbuvir/weight based ribavirin 45407 inferolateral stent bare metal circumflex 7DR Molddoverno sx;Dr Schwartz 8repeat colonoscopy in 5 years Vital Signs Most recent to oldest [Reference Range]: 1 2 Blood Pressure [90-138/55-84 mm Hg] 152/ 68mm Hg *H* (07/18/20 9:38 AM) 160/60mm Hg *H* (07/18/20 9:25 AM) Blood pressure sites Arm, left (07/18/20 9:38 AM) Arm, left (07/18/20 9:25 AM) Social History Social History Type Response Smoking Status Former smoker, quit more than 30 days ago; Interested in cessation: No; Other: quit; Tobacco use times per day: prio 1/2-1 ppd; Total pack years: 38; Started at age: 12; Stopped at age: 63; entered on: 07/20/20 Sex
--- OUTSIDE RECORDS SUMMARY | 2024-06-01 12:03 | XMS_ITS | Continuity of Care Document ---
Author Organization [facility] Shawn Lazaro lt Address [address] [place] [address]- Care Team Providers Care Verifying Specialist Name Role Phone Aylin HICKMAN, Ben Willis Primary Care Physician [place] [facility] [place]): 11/11/21 - 12/11/21 [facility] Adult [address] [place] [address]- Allergies, Adverse Reactions, Alerts Substance Reaction Severity [...] Refills, Maintenance, 01/23/21 11:08:00 EDT, CR Capsule, [facility]/pharmacy #[id number], 175.3, cm, 01/21/21 12:58:00 EDT, Height, 83.6, kg, 04/23/20 17:46:00EDT, Dry Weight Start Date: 01/23/21 Stop Date: 01/18/22 Status: Ordered cloNIDine 0.2 mg oral tablet 0.2 mg, 1, tablet, By Mouth, 2 times a day, # 60 tablet, Refills 5, Tot. Refills 5, Maintenance, 06/24/21 12:51:00 EST, Route to Pharmacy Electronically, [facility]/pharmacy #[id number], 175.2, cm, 06/07/21 9:51:00 EST, Height, 88.3, kg, 03/12/21 9:16:00 EDT, Dry... Start Date: 06/24/21 Status: Ordered Daily Simone oral tablet 1 tablet, By Mouth, Daily, # 30 tablet, 5 Refills, Maintenance, 07/29/21 13:53:00 EST, Tablet, [facility]/pharmacy #[id number], 1 tablet By Mouth Daily,x30 days, 175.2, cm, 06/07/21 9:51:00 EST, Height, 88.3, kg,03/12/21 9:16:00 EDT, Dry Weight Start Date: 07/29/21 Stop Date: 01/25/22 Status: Ordered docusate sodium 100 mg oral capsule 1 capsule, By Mouth, 2 times a day, PRN NEEDED FOR CONSTIPATION, # 60 capsule, 5 Refills, Maintenance, 06/05/21 15:57:00 EST, [facility]/pharmacy #[id number], 175.2, cm, 05/27/21 11:26:00 EST, Height, 88.3, kg, 03/12/21 9:16:00 EDT, Dry Weight Start Date: 06/05/21 Status: Ordered folic acid 1 mg oral tablet 1, tablet, By Mouth, Daily, # 30 tablet, Refills 5, Tot. Refills 5, Maintenance, 07/25/21 15:59:00 EST, Route to Pharmacy Electronically, [facility]/pharmacy #[id number], 175.2, cm, 06/07/21 9:51:00 EST, Height, [...] tablet, 5 Refills, Maintenance, 06/05/21 15:57:00 EST, [facility]/pharmacy #[id number], 175.2, cm, 05/27/21 11:26:00 EST, Height, 88.3, kg, 03/12/21 9:16:00 EDT, Dry Weight Start Date: 06/05/21 Status: Ordered LaMICtal 100 mg oral tablet 100 mg, 1, tablet, By Mouth, 2 times a day, # 60 tablet, Refills 3, Tot. Refills 3, Maintenance, 01/21/19 11:25:36 EDT, Route to Pharmacy Electronically, [id number], [facility]/pharmacy #[id number] Start Date: 01/21/19 [...] 3 Refills, Maintenance, 09/17/21 10:50:00 EDT, Tablet, [facility]/pharmacy #[id number], Partial fill upon patient request if the prescription is for a schedule II opioid drug., 175.2, cm, 07/31/21 11:20:00 EST, Heigh... Start Date: 09/17/21 Status: Ordered Metoprolol Tartrate 50 mg oral tablet See Instructions, TAKE 1 + 1/2 TABLETS BY MOUTH 2 TIMES A DAY, # 270 tablet, 0 Refills, 06/24/21 10:42:00 EST, [facility]/pharmacy #[id number], 175.2, cm, 06/07/21 9:51:00 EST, Height, 88.3, kg, 03/12/21 9:16:00 EDT, Dry Weight Start Date: 06/24/21 Status: Ordered nicotine 2 mg oral transmucosal lozenge See Instructions, USE 1 LOZENGE UP TO EVERY 1 HOUR NEEDED FOR 10 DAYS, # 162 lozenge, 0 Refills,Maintenance, 12/11/21 9:38:00 EDT, [facility]/pharmacy #[id number], 16, USE 1 LOZENGE UP TO [...] # 15 Unknown, 2 Refills, [facility], 175.2, cm, 05/27/21 11:26:00 EST, Height, 88.3, kg, 03/12/21 9:16:00 EDT, Dry Weight Start Date: 06/04/21 Status: Ordered Pen [place], 31 G x 5 mm BD Ultra [...] tablet, 1 Refills, Maintenance, 08/15/21 14:24:00 EST, [facility]/pharmacy#0843, 175.2, cm, 07/31/21 11:20:00 EST, Height, 88.3, kg, 03/12/21 9:16:00 EDT, Dry Weight Start Date: 08/15/21 Status: Ordered SEROquel 100 mg oral tablet 100 mg, 1, tablet, By Mouth, 2 times a day, # 60 tablet, Refills 2, Tot. Refills 2, Maintenance, 09/21/19 10:41:00 EDT, [id number], cm, 09/05/19 16:17:00 EST, [...] 0 Refills, Maintenance, 11/29/21 15:58:00 EDT, Suspension, [facility]/pharmacy #[id number], 1 drops Eyes, Both 2 times [...] # 9 Unknown, 1 Refills, [facility], 175.2, cm, 07/31/21 11:20:00 EST, Height, 88.3, [...] # 30 capsule, 5 Refills, [facility], 175.2, cm, 11/15/21 11:18:00 EDT, Height, 88.3, kg, 03/12/21 9:16:00 EDT, Dry Weight Start Date: 11/17/21 Status: Ordered Problem List Condition Effective Dates Status Health Status Inform ant Bipolar disorder(Confirmed) Active Cervical spondylosis(Confirmed) Active Chronic back pain DJD(Confirmed) Active Glomerulonephritis,mesangial proliferative/fibrillary(Confirmed) 1, 2 Active Chronic renal failure, stage 4 (severe)(Confirmed) Active ASHD; [place] 2012/stent circumfl ex vessel cath;abdelrahman 2018(Confirmed) 3 [...] 524 weeks therapy with sofosbuvir/weight based ribavirin 07112 inferolateral stent bare metal circumflex 7DR Molddoverno [...]
--- OUTSIDE RECORDS SUMMARY | 2024-06-01 12:03 | XMS_ITS | Continuity of Care Document ---
Author Organization [facility] Lazaro lt Address [address] [place] [address]- Care Team Providers Care Assistant Professor Of Anthropology Name Role Phone Carrie Kelly RIVERA Primary Care Physician [phone] [place] [facility] [place] 02/16/24 - 03/17/24 [facility] Adult [address] [place] [address]- Allergies, Adverse Reactions, Alerts Substance Reaction Severity Status Bee Stings Active Immunizations Given and Recorded Vaccine Date Status Refusal Reason SARS-CoV-2(COVID-19)mRNA-LNP vac([id number]) 12/31/23 Recorded SARS-CoV-2(COVID-19)mRNA-LNP vac([id number]) 05/08/23 Recorded tetanus/diphtheria/pertussis, acel(Tdap) 10/15/23 Recorded tetanus/diphtheria/pertussis, [...] 02/03/23 Recorded zoster vaccine, inactivated 08/09/19 Recorded [id number] 12y+ bivalent booster vax 05/17/22 Recorded SARS-CoV-2 [...] adult vaccine 4 12/10/10 Given 1Result Comment: [id number] 2Result Comment: [id number] 3Admin Note: pt waited 10 mins post [...] 11:18:00 EDT, Route to Pharmacy Electronically, [facility]/pharmacy #[id number], Partial fill upon patient request if the prescriptio... Start Date: 02/29/24 Stop Date: 03/14/24 Status: Ordered D3 50 mcg (2000 intl units) oral capsule 1 capsule, By Mouth, Daily, # 90 capsule, 0 Refills, Maintenance, 12/09/23 14:09:00 EDT, [facility]/pharmacy #[id number], 168, cm, 10/27/23 15:34:00 EDT, Height, 93, kg, 01/28/22 14:55:00 EDT, Dry Weight Start Date: 12/09/23 Status: Ordered Daily Simone oral tablet 1 tablet, By Mouth, Daily, # 90 tablet, 1 Refills, Maintenance, 03/17/24 9:34:00 EDT, [facility]/pharmacy #[id number], 90, 1 tablet By Mouth [...] 01/21/19 11:25:36 EDT, Route to Pharmacy Electronically, [id number], [facility]/pharmacy #[id number] Start Date: 01/21/19 Stop Date: 05/21/19 Status: Ordered lisinopril 10 mg oral tablet 10 mg, 1, tablet, By Mouth, Daily, for 30 days, DECREASED STRENGTH, # 30 tablet, Refills 0, Tot. Refills 0, Acute 04/16/24 9:47:00 EDT, 03/17/24 9:47:00 EDT, Route to Pharmacy Electronically, [facility]/pharmacy #[id number], 168, cm, 03/17/24 [...] tablet, 0 Refills, Maintenance, 03/17/24 14:24:00 EDT, [id number], 168, cm, 03/17/24 9:46:00 [...] mL, 0 Refills, Maintenance, 02/02/24 15:28:00 EDT, [place], [facility], Partial fill upon patient... Start Date: 02/02/24 Status: Ordered Pen [place], 31 G x 5 mm BD Ultra [...] Refills, Maintenance, 02/04/24 16:39:00 EDT, [facility], 168, cm, 02/03/24 10:41:00 EDT, Height Start [...] mild to moderate. 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 2013/AL 4secondary to hep C 524 weeks therapy with sofosbuvir/weight based ribavirin 72862 inferolateral stent bare metal circumflex 7DR Molddoverno [...] Consulting Physician Address: Address: [address] [place], [place] [address] [place], [place] [address] Name: Kelly Butler NP Position: [facility] PCO Associate Professional Member Role: PCP Address: Address: [address] [place] [id number] Name: Kristin Mckenzie Position: [facility] Outreach Member Role: Lifetime Consulting Physician Name: Fortunato Sin RN Position: [facility] RN Member Role: Primary Care Nurse Name: Nury Watts RN Position: [facility] RN Member Role: Primary Care Nurse Name: Antonia Mena NP Position: [facility] Associate Professional Member Role: Lifetime Consulting Provider Address: Address: [address] [place], [place] [address] [place] [address]- Name: Prieto Tobin RN Position: [facility] RN Member Role: Primary Care Nurse Name: Ashleigh Reynoso RN Position: [facility] RN Member Role: Primary Care Nurse Name: Jonn Hui DO Position: [facility] Renal MD Member Role: Lifetime Consulting Physician Address: Address: [address] [place], [place] [address]E [facility] [place], [place] [address] Name: Zafar CALVO, Luis Angel Rojas Position: S RN Member Role: Primary Care Nurse Name: Brandan Nogueira RN Position: S RN Member Role: Primary Care Nurse Care Team Related Persons Name: CARLOS A BORDEN Address: [address] [place] [address] Name: LEVI BORDEN Address: [address] [place] [address]
--- OUTSIDE RECORDS SUMMARY | 2024-06-01 12:03 | XMS_ITS | Continuity of Care Document ---
Author Organization [facility] Address [address] [address]- Care Team Providers Care Carousel Operator Name Role Phone Carrie Kelly RIVERA Primary Care Physician Encounter [facility] Date(s): 02/19/22 - 03/21/22 [facility] [address] [place] [address] [place] [address]- Attending Physician: Radha Biggs Admitting Physician: AdmtrRadha Referring Physician: Admtr, [id number] [...] Refills, Maintenance, 01/18/22 11:08:00 EDT, [facility], [facility] [...] 01/21/19 11:25:36 EDT, Route to Pharmacy Electronically, [id number], [facility]/pharmacy #[id number] Start [...] 270 tablet, 0 Refills, 03/16/22 12:48:00 EDT, [facility]/pharmacy #[id number], 175, cm, 02/14/22 10:10:00 EDT, Height, 93, kg, 01/28/22 14:55:00 EDT, Dry Weight Start Date: 03/16/22 Status: Ordered nicotine 14 mg/24 hr transdermal film, extended release 1 patch, Topically, Daily, for 30 days, # 30 patch, 1 Refills, Acute 05/13/22 12:16:00 EST, 03/14/22 12:16:00 EDT, Patch, [facility]/pharmacy #0843, 1 patch Topically Daily,x30 days, [...] tablet, 0 Refills, Maintenance, 12/31/21 17:21:00 EDT, [facility]/pharmacy #0843, 175.2, cm, 12/18/21 14:10:00 EDT, Height... Start Date: 12/31/21 Status: Ordered NovoLOG FlexPen 100 units/mL injectable solution See Instructions, INJECT 0-18 UNITS SUBCUTANEOUSLY WITH MEALS FOR SLIDING SCALES, # 15 Unknown, 2 Refills, [facility], 175.2, cm, 05/27/21 11:26:00 EST, Height, 88.3, kg, 03/12/21 9:16:00 EDT, Dry Weight Start Date: 06/04/21 Status: Ordered Pen [place], 31 G x 5 mm BD Ultra [...] Mouth, Daily, # 90 tablet, 1 Refills, [facility], 175, cm, 01/29/22 15:12:00 EDT,Height, 93, kg, [...] 3 Refills, Maintenance, 12/18/21 14:33:00 EDT, Suspension, [facility]/pharmacy [...] # 30 capsule, 5 Refills, [facility], 175.2, cm, 11/15/21 11:18:00 EDT, Height, 88.3, kg, 03/12/21 9:16:00 EDT, Dry Weight Start Date: 11/17/21 Status: Ordered Problem List Condition Effective Dates Status Health Status Inform ant Bipolar disorder(Confirmed) Active Cervical spondylosis(Confirmed) Active Chronic back pain DJD(Confirmed) Active Glomerulonephritis,mesangial proliferative/fibrillary(Confirmed) 1, 2 Active Chronic renal failure, stage 4 (severe)(Confirmed) Active ASHD; [place] 2012/stent circumfl ex vessel [...] 524 weeks therapy with sofosbuvir/weight based ribavirin 83654 inferolateral stent bare metal circumflex 7DR Molddoverno [...] Team Personnel Name: Kelly Butler NP Address: [address] [place] [address]-
--- OUTSIDE RECORDS SUMMARY | 2024-06-01 12:03 | XMS_ITS | Continuity of Care Document ---
Author Organization [facility] Address [address] [place] [address]- Care Team Providers Care Spiral Binder Name Role Phone Aylin HICKMAN, Ben Willis Primary Care Physician [phone] [place] [facility] [place] 03/08/21 - 04/07/21 [facility] [address] [place] [address]- [place] Allergies, Adverse Reactions, Alerts Substance Reaction [...] tablet, 11 Refills, Maintenance, 06/26/20 12:19:00 EST, [facility], 175, cm, 06/25/20 16:11:00 EST, Height, 83.6, [...] Refills, Maintenance, 01/23/21 11:08:00 EDT, CR Capsule, [facility]/pharmacy #[id number], 175.3, cm, 01/21/21 12:58:00 EDT, Height, 83.6, kg, 04/23/20 17:46:00EDT, Dry Weight Start Date: 01/23/21 Stop Date: 01/18/22 Status: Ordered cholecalciferol 2000 intl units oral capsule 1 capsule = 2,000 International_Units, By Mouth, Daily, # 30 capsule, 5 Refills, Maintenance, 11/02/20 10:48:00 EDT, Capsule, [facility]/pharmacy #0843, 175, cm, 09/21/20 11:29:00 EDT, Height, 83.6, kg, 04/23/20 17:46:00 EDT, Dry Weight Start Date: 11/02/20 Status: Ordered cloNIDine 0.2 mg oral tablet 0.2 mg, 1, tablet, By Mouth, 2 times a day, # 60 tablet, Refills 5, Tot. Refills 5, Maintenance, 02/28/21 10:13:00 EDT, Route to Pharmacy Electronically, [facility]/pharmacy #0843, 175.3, cm, 01/21/21 12:58:00 EDT, [...] Refills, Maintenance, 01/22/21 12:45:00 EDT, [facility], 175.3, cm, 01/21/21 12:58:00 EDT, Height, 83.6, kg, 04/23/20 17:46:00 EDT, Dry Weight Start Date: 01/22/21 Status: Ordered folic acid 1 mg oral tablet 1, tablet, By Mouth, Daily, # 30 tablet, Refills 5, Tot. Refills 0, Maintenance, 01/18/21 14:44:00 EDT, Route to Pharmacy Electronically, [facility], 175, cm, 12/24/20 11:20:00 EDT, Height, 83.6, [...] 01/21/19 11:25:36 EDT, Route to Pharmacy Electronically, [id number], [facility]/pharmacy #[id number] [...] tablet, 0 Refills, Maintenance, 03/22/21 12:39:00 EDT, [facility]/pharmacy #0843, 175.2, cm, 03/18/21 10:48:00 EDT, Height, 88.3, kg, 03/12/21 9:16:00 EDT, Dry Weight Start Date: 03/22/21 Status: Ordered nicotine 2 mg oral transmucosal lozenge See Instructions, USE 1 LOZENGE UP TO EVERY 1 HOUR NEEDED FOR 10 DAYS, # 162 lozenge, 1 Refills,[facility], 10, USE 1 LOZENGE UP TO EVERY [...] 9:13:... Start Date: 02/01/20 Status: Ordered Pen [place], 31 G x 5 mm BD Ultra [...] tablet, 1 Refills, Maintenance, 01/08/21 14:43:00 EDT, [facility]/pharmacy#0843, 175, cm, 12/24/20 11:20:00 EDT, Height, 83.6, kg, 04/23/20 17:46:00 EDT, Dry Weight Start Date: 01/08/21 Status: Ordered SEROquel 100 mg oral tablet 100 mg, 1, tablet, By Mouth, 2 times a day, # 60 tablet, Refills 2, Tot. Refills 2, Maintenance, 09/21/19 10:41:00 EDT, Route to Pharmacy Electronically, [facility]/pharmacy #[id number], 172, cm, 09/05/19 16:17:00 [...] 1, 2 Active Cigarette smoker(Confirmed) Active ASHD; [place] 2012/stent circumfl ex vessel [...] mild to moderate. 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
--- OUTSIDE RECORDS SUMMARY | 2024-06-01 12:03 | XMS_ITS | Continuity of Care Document ---
Author Organization [facility] Nando Escobar Lazaro lt Address [address] [place] [address]- Care Team Providers Care Business Teacher Name Role Phone Carrie Kelly RIVERA Primary Care Physician Encounter [facility] Date(s): 06/02/22 - 07/02/22 [facility] Nando Escobar Adult [address] [place] [address]- Allergies, Adverse Reactions, Alerts Substance Reaction Severity [...] Refills, Maintenance, 05/21/22 13:33:00 EST, [facility], 175, cm, 05/09/22 11:08:00 EDT, Height, 93, [...] 04/01/22 21:30:00 EDT, Route to Pharmacy Electronically, [facility]/pharmacy #[id number], 175, cm, 02/14/22 10:10:00 EDT, [...] 01/21/19 11:25:36 EDT, Route to Pharmacy Electronically, [id number], [facility]/pharmacy #[id number] Start Date: 01/21/19 Stop Date: 05/21/19 Status: Ordered lisinopril 40 mg oral tablet 1 tablet, By Mouth, Daily, # 90 tablet, 1 Refills, Maintenance, 05/07/22 14:29:00 EDT, [facility] 680[facility], 175, cm, 04/08/22 8:34:00 EDT, Height, 93, kg, 01/28/22 14:55:00 EDT, Dry Weight Start Date: 05/07/22 Status: Ordered Metoprolol Tartrate 50 mg oral tablet 1.5 tablet, By Mouth, 2 times a day, # 270 tablet, 0 Refills, 05/21/22 10:19:00 EST, [facility]/pharmacy #[id number], 175, cm, 05/09/22 11:08:00 EDT, Height, 93, kg, 01/28/22 14:55:00 EDT, Dry Weight Start Date: 05/21/22 Status: Ordered nicotine 14 mg/24 hr transdermal film, extended release 1 patch, Topically, Daily, for 30 days, # 14 patch, 0 Refills, Acute 07/27/22 15:44:00 EST, 06/27/22 15:44:00 EST, Patch, [facility]/pharmacy #[id number], 1 patch Topically Daily,x30 days, [...] tablet, 0 Refills, Maintenance, 12/31/21 17:21:00 EDT, [facility]/pharmacy #0843, 175.2, cm, 12/18/21 14:10:00 EDT, Height... Start Date: 12/31/21 Status: Ordered NovoLOG FlexPen 100 units/mL injectable solution See Instructions, INJECT 0-18 UNITS SUBCUTANEOUSLY WITH MEALS FOR SLIDING SCALES, # 15 Unknown, 2 Refills, [facility] 9[facility]72, 175.2, cm, 05/27/21 11:26:00 EST, Height, 88.3, kg, 03/12/21 9:16:00 EDT, Dry Weight Start Date: 06/04/21 Status: Ordered Pen [place], 31 G x 5 mm BD Ultra [...] 5 Refills, Maintenance, 04/08/22 9:12:00 EDT, Capsule, [facility]/pharmacy #0843, 175, cm, 04/08/22 8:34:00 EDT, Height, 93, kg, 01/28/22 14:55:00 EDT, Dry Weight Start Date: 04/08/22 Status: Ordered rosuvastatin 20 mg oral tablet 1 tablet, By Mouth, Daily, # 90 tablet, 1 Refills, Maintenance, 05/21/22 13:33:00 EST, [facility], 175, cm, 05/09/22 11:08:00 EDT, Height, 93, [...] 07/11/22 20:57:00 EST, 06/11/22 20:57:00 EST, Suspension, [facility]/pharmacy #0843, 1drops Eyes, Both 2 times a [...] 4, GFR 15-29 ml/min Confirmed Active ASHD; [place] 2012/stent circumflex vessel cath;abdelrahman 2018 3 Confirmed [...] 524 weeks therapy with sofosbuvir/weight based ribavirin 46985 inferolateral stent bare metal circumflex 7DR Molddoverno [...] Personnel Name: Jeffrey Mccoy MD Position: [facility] Renal MD Member Role: Lifetime Consulting Physician Address: Address: [facility] [place] [address]- Name: Kelly Butler NP Position: [facility] PCO Associate Professional Member Role: PCP Address: Address: [address] [place] [address]- Name: Kristin Mckenzie Position: [facility] Outreach Member Role: Lifetime Consulting Physician Name: Prieto Tobin RN Position: [facility] RN Member Role: Primary Care Nurse Name: Jonn Hui DO Position: [facility] Renal MD Member Role: Lifetime Consulting Physician Address: Address: [address] [place], [place] [address] [place], [place] [address] Name: Luis Angel Stephen RN Position: [facility] RN Member Role: Primary Care Nurse Name: aTmie Baird RN Position: [facility] RN Member Role: Primary Care Nurse Care Team Related Persons Name: CARLOS A BORDEN Address: [address] [place] [address] Name: LEVI BORDEN Address: [address] [place] [address]
--- OUTSIDE RECORDS SUMMARY | 2024-06-01 12:03 | XMS_ITS | Continuity of Care Document ---
Author Organization [facility] ter Address [address] [place] [id number]- Care Team Providers Care Communications Systems Engineer Name Role Phone Ben Viera MD Primary Care Physician Encounter [facility] Date(s): 09/09/19 - 10/28/[address] [address]- [facility] Attending Physician: Ben Viera MD Admitting [...] 10:48:07 EST, Aerosol, Route to Pharmacy Electronically, [id number], [facility]/pharmacy #[id number], 180, cm, 06/17/19 10:36:11 EST, Height Start Date: 06/17/19 Status: Ordered aspirin 81 mg oral tablet 1 tablet = 81 mg, By Mouth, Daily, # 30 tablet, 11 Refills, Maintenance, 09/03/19 14:22:00 EST, Tablet, [facility]/pharmacy #[id number], 180, cm, 08/01/19 10:43:00 [...] Refills, Maintenance, 08/16/19 14:00:00 EST, CR Capsule, [facility]/pharmacy #[id number], 172, cm, 08/11/19 13:32:00 [...] 10/25/19 10:20:00 EDT, Route to Pharmacy Electronically, [facility]/pharmacy #[id number], 172, cm, 09/05/19 16:17:00 EST, Height, 97.8, kg, 08/11/19 5:24:00 EST, Dry W... Start Date: 10/25/19 Status: Ordered Colace sodium 100 mg oral capsule 100 mg, 1, capsule, By Mouth, 2 times a day, PRN, # 60 capsule, Refills 5, Tot. Refills 5, Maintenance, for constipation, 04/25/19 13:50:52 EDT, Route to Pharmacy Electronically, [id number], [facility]/pharmacy #[id number] Start Date: 04/25/19 Status: Ordered Crestor 20 mg oral tablet 1 tablet = 20 mg, By Mouth, Daily, # 90 tablet, 3 Refills, Maintenance, 10/25/19 11:14:00 EDT, Tablet, [facility]/pharmacy #[id number], 172, cm, 09/05/19 16:17:00 EST, Height, 97.8, kg, 08/11/19 5:24:00 EST, Dry Weight Start Date: 10/25/19 Status: Ordered Daily Simone oral tablet 1 tablet, By Mouth, Daily, # 30 tablet, 5 Refills, Maintenance, 09/21/19 10:41:00 EDT, Tablet, [facility]/pharmacy #[id number], 1 tablet By Mouth Daily,x30 days, 172, cm, 09/05/19 16:17:00 EST, Height, 97.8, kg, 08/11/19 5:24:00 EST, Dry Weight Start Date: 09/21/19 Stop Date: 03/19/20 Status: Ordered folic acid 1 mg oral tablet 1 mg, 1, tablet, By Mouth, Daily, # 30 tablet, Refills 11, Tot. Refills 11, Maintenance, 02/14/19 16:39:14 EDT, Route to Pharmacy Electronically, [id number], [facility]/pharmacy #[id number] Start Date: 02/14/19 Status: [...] 01/21/19 11:25:36 EDT, Route to Pharmacy Electronically, [id number], [facility]/pharmacy #[id number] Start Date: 01/21/19 Stop [...] 06/21/19 14:10:15 EST, Route to Pharmacy Electronically, [facility]/pharmacy #[id number], 180, cm, 06/17/19 10:36:11 EST, Height Start Date: 06/21/19 Status: Ordered metoprolol 50 mg oral tablet 75 mg, 1.5, tablet, By Mouth, 2 times a day, stop metoprolol 50 mg twice daily, # 180 tablet, Refills 2, Tot. Refills 2, Maintenance, 08/26/19 9:30:00 EST, Route to Pharmacy Electronically, [facility]/pharmacy #[id number], 172, cm, 08/23/19 10:02:00 EST, Height, 9... Start Date: 08/26/19 Status: Ordered nicotine 4 mg oral transmucosal lozenge 1 lozenge = 4 mg, By Mouth, Every hour, # 132 lozenge, 1 Refills, Maintenance, 10/05/19 11:01:00 EDT, [facility]/pharmacy #[id number], 1 lozenge By Mouth [...] PAIN CALL 911 IF PAIN NOT RELIEVED, [facility]/pharmacy #[id number] Start Date: 02/17/19 Status: Ordered NovoLOG FlexPen 100 units/mL subcutaneous solution See Instructions, # 15 Unknown, Refills 5 Tot. Refills 5, INJECT 0-18 UNITS SUBCUTANEOUSLY WITH MEALS FOR SLIDING SCALES, [id number] Start Date: 01/04/19 Status: Ordered Pen [place], 31 G x 5 mm BD Ultra [...] 09/21/19 10:41:00 EDT, Route to Pharmacy Electronically, [facility]/pharmacy #[id number], 172, cm, 09/05/19 16:17:00 [...] EST, Tablet, this was [facility] Start Date: 05/17/19 Stop Date: 05/11/20 Status: Ordered Tresiba FlexTouch 200 units/mL subcutaneous solution = 90 units, Subcutaneous Infusion, Daily, at bedtime, # 15 mL, 5 Refills, Maintenance, 08/04/19 13:13:00 EST, [facility]/pharmacy #[id number], 180, cm, 08/01/19 10:43:00 EST, Height Start Date: 08/04/19 Status: Ordered Problem List Condition Effective Dates Status Health Status Inform ant Acute pancreatitis(Confirmed) 07/16/16 Active Adenomatous colon polyp(Confirmed) Active Bipolar disorder(Confirmed) Active Cervical spondylosis(Confirmed) Active Chronic back pain opiates pe r physiatry(Confirmed) Active Glomerulonephritis,mesangial proliferative/fibrillary(Confirmed) 1, 2 Active Chronic renal impairment, st age 3 (moderate)(Confirmed) Active ASHD; [place] 2012/stent circumfl ex vessel cath;abdelrahman 2018(Confirmed) 3 Active Epididymal cyst rt(Confirmed) 04/18/19 Active Low serum vitamin D(Confirmed) Active Insulin long-term use(Confirmed) Active Ex-smoker quit 2018 t enrolled(Confirmed) Active [...] 524 weeks therapy with sofosbuvir/weight based ribavirin 61948 inferolateral stent bare metal circumflex 7DR Marissa morgan;Dr Schwartz 8repeat colonoscopy in 5 years Social History Social History Type Response Smoking Status Former smoker, quit more than 30 days ago entered on: 12/22/18 Sex
--- OUTSIDE RECORDS SUMMARY | 2024-06-01 12:04 | XMS_ITS | Continuity of Care Document ---
Author Organization [facility] Shawn Lazaro lt Address [address] [place] [address]- Care Team Providers Care Rd Project Manager Name Role Phone Carrie Kelly RIVERA Primary Care Physician Encounter [facility] Date(s): 03/04/22 - 04/03/22 [facility] [address] [place] [address]- Allergies, Adverse Reactions, Alerts Substance Reaction Severity [...] tablet, 3 Refills, Maintenance, 09/30/21 12:28:00 EDT, [facility]/pharmacy#[id number], 175.2, cm, 09/20/21 8:36:00 EDT, Height, [...] Refills, Maintenance, 01/18/22 11:08:00 EDT, CR Capsule, [facility]/pharmacy #[id number], 175.2, cm, 11/15/21 11:18:00 EDT, Height, 88.3, kg, 03/12/21 9:16:00 EDT, Dry Weight Start Date: 01/18/22 Stop Date: 07/17/22 Status: Ordered Daily Simone oral tablet 1 tablet, By Mouth, Daily, # 30 tablet, 5 Refills, Maintenance, 02/11/22 11:48:00 EDT, Tablet, [facility]/pharmacy #[id number], 1 tablet By Mouth Daily,x30 days, 175, cm, 01/29/22 15:12:00 EDT, Height, 93, kg, 01/28/22 14:55:00 EDT, Dry Weight Start Date: 02/11/22 Stop Date: 08/10/22 Status: Ordered docusate sodium 100 mg oral capsule 1 capsule, By Mouth, 2 times a day, PRN NEEDED FOR CONSTIPATION, # 60 capsule, 5 Refills, Maintenance, 06/05/21 15:57:00 EST, [facility]/pharmacy #[id number], 175.2, cm, 05/27/21 11:26:00 EST, Height, 88.3, kg, 03/12/21 9:16:00 EDT, Dry Weight Start Date: 06/05/21 Status: Ordered folic acid 1 mg oral tablet 1, tablet, By Mouth, Daily, # 30 tablet, Refills 5, Tot. Refills 5, Maintenance, 04/01/22 21:30:00 EDT, Route to Pharmacy Electronically, [facility]/pharmacy #[id number], 175, cm, 02/14/22 10:10:00 EDT, [...] 01/21/19 11:25:36 EDT, Route to Pharmacy Electronically, [id number], [facility]/pharmacy #[id number] Start Date: 01/21/19 Stop Date: 05/21/19 Status: Ordered lisinopril 40 mg oral tablet 1 tablet = 40 mg, By Mouth, Daily, # 30 tablet, 3 Refills, Maintenance, 09/17/21 10:50:00 EDT, Tablet, [facility]/pharmacy #[id number], Partial fill upon patient request if the prescription is for a schedule II opioid drug., 175.2, cm, 07/31/21 11:20:00 EST, Heigh... Start Date: 09/17/21 Status: Ordered Metoprolol Tartrate 50 mg oral tablet 1.5 tablet, By Mouth, 2 times a day, # 270 tablet, 0 Refills, 03/16/22 12:48:00 EDT, [facility]/pharmacy #[id number], 175, cm, 02/14/22 10:10:00 EDT, Height, 93, kg, 01/28/22 14:55:00 EDT, Dry Weight Start Date: 03/16/22 Status: Ordered nicotine 14 mg/24 hr transdermal film, extended release 1 patch, Topically, Daily, for 30 days, # 30 patch, 1 Refills, Acute 05/13/22 12:16:00 EST, 03/14/22 12:16:00 EDT, Patch, [facility]/pharmacy #[id number], 1 patch Topically Daily,x30 days, [...] tablet, 0 Refills, Maintenance, 12/31/21 17:21:00 EDT, [facility]/pharmacy #[id number], 175.2, cm, 12/18/21 14:10:00 EDT, Height... Start Date: 12/31/21 Status: Ordered NovoLOG FlexPen 100 units/mL injectable solution See Instructions, INJECT 0-18 UNITS SUBCUTANEOUSLY WITH MEALS FOR SLIDING SCALES, # 15 Unknown, 2 Refills, [id number], 175.2, cm, 05/27/21 11:26:00 EST, Height, 88.3, kg, 03/12/21 9:16:00 EDT, Dry Weight Start Date: 06/04/21 Status: Ordered Pen [place], 31 G x 5 mm BD Ultra [...] capsule, 5 Refills, Maintenance, 11/19/21 11:25:00EDT, Capsule, [facility]/pharmacy #[id number], 175.2, cm, 11/15/21 11:18:00 EDT, Height, 88.3, kg, 03/12/21 9:16:00 EDT, Dry Weight Start Date: 11/19/21 Status: Ordered rosuvastatin 20 mg oral tablet 1 tablet, By Mouth, Daily, # 90 tablet, 1 Refills, [facility] 599[facility], 175, cm, 01/29/22 15:12:00 EDT,Height, 93, kg, [...] 3 Refills, Maintenance, 12/18/21 14:33:00 EDT, Suspension, [facility]/pharmacy #[id number], 1 drops Eyes, Both 2 [...] # 30 capsule, 5 Refills, [facility], 175.2, cm, 11/15/21 11:18:00 EDT, Height, 88.3, kg, 03/12/21 9:16:00 EDT, Dry Weight Start Date: 11/17/21 Status: Ordered Problem List Condition Confirmation Course Effective Dates Status Health Status Informant Bipolar disorder Confirmed Active Cervical spondylosis Confirmed Active Chronic back pain DJD Confirmed Active Glomerulonephritis,ulloa ngial proliferative/fibrillar y 1, 2 Confirmed Active Chronic renal failure, stage 4 (severe) Confirmed Active ASHD; [place] 2012/stent circumflex vessel [...] 524 weeks therapy with sofosbuvir/weight based ribavirin 11774 inferolateral stent bare metal circumflex 7DR Molddoverno [...] Personnel Name: Kelly Butler NP Address: Address: [address] [place] [id number]-
--- OUTSIDE RECORDS SUMMARY | 2024-06-01 12:04 | XMS_ITS | Continuity of Care Document ---
Author Organization [facility] ter Address [address] [place] [id number]- Care Team Providers Care Diesel Instructor Name Role Phone Aylin HICKMAN, Ben Willis Primary Care Physician Encounter 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) - 01/29/22 Discharge Disposition: A-D/C Home Attending Physician: Mateusz Zepeda MD Admitting Physician: Lauri Wong MD Referring Physician: Not on Staff, Referring [...] tablet, 3 Refills, Maintenance, 09/30/21 12:28:00 EDT, [facility]/pharmacy#[id number], 175.2, cm, 09/20/21 8:36:00 EDT, Height, 88.3, [...] Refills, Maintenance, 01/18/22 11:08:00 EDT, CR Capsule, [facility]/pharmacy #[id number], 175.2, cm, 11/15/21 11:18:00 EDT, Height, 88.3, kg, 03/12/21 9:16:00 EDT, Dry Weight Start Date: 01/18/22 Stop Date: 07/17/22 Status: Ordered Daily Simone oral tablet 1 tablet, By Mouth, Daily, # 30 tablet, 5 Refills, Maintenance, 07/29/21 13:53:00 EST, Tablet, [facility]/pharmacy #[id number], 1 tablet By Mouth Daily,x30 days, 175.2, cm, 06/07/21 9:51:00 EST, Height, 88.3, kg,03/12/21 9:16:00 EDT, Dry Weight Start Date: 07/29/21 Stop Date: 01/25/22 Status: Ordered docusate sodium 100 mg oral capsule 1 capsule, By Mouth, 2 times a day, PRN NEEDED FOR CONSTIPATION, # 60 capsule, 5 Refills, Maintenance, 06/05/21 15:57:00 EST, [facility]/pharmacy #[id number], 175.2, cm, 05/27/21 11:26:00 EST, Height, 88.3, kg, 03/12/21 9:16:00 EDT, Dry Weight Start Date: 06/05/21 Status: Ordered folic acid 1 mg oral tablet 1, tablet, By Mouth, Daily, # 30 tablet, Refills 5, Tot. Refills 5, Maintenance, 07/25/21 15:59:00 EST, Route to Pharmacy Electronically, [facility]/pharmacy #[id number], 175.2, cm, 06/07/21 9:51:00 EST, Height, [...] 01/21/19 11:25:36 EDT, Route to Pharmacy Electronically, [id number], [facility]/pharmacy #[id number] Start Date: 01/21/19 Stop Date: 05/21/19 [...] a day, # 270 tablet, 0 Refills, [facility], 175.2, cm, 11/15/21 11:18:00 EDT, Height, 88.3, kg, 03/12/21 9:16:00 EDT, Dry Weight Start Date: 12/12/21 Status: Ordered nicotine 2 mg oral transmucosal lozenge 1 lozenge = 2 mg, By Mouth, Every 4 hours, for 4 week(s), as directed on package labeling, # 144 lozenge, 0 Refills, Physician Stop 03/06/22 12:37:00 EDT, 02/06/22 12:37:00 EDT, [id number], 1lozenge By Mouth Every 4 hours,x4 week(s),Instr:as... Start Date: 02/06/22 Stop Date: 03/06/22 Status: Ordered nitroglycerin 0.4 mg sublingual tablet [...] # 15 Unknown, 2 Refills, [facility], 175.2, cm, 05/27/21 11:26:00 EST, Height, 88.3, kg, 03/12/21 9:16:00 EDT, Dry Weight Start Date: 06/04/21 Status: Ordered Pen [place], 31 G x 5 mm BD Ultra [...] capsule, 5 Refills, Maintenance, 11/19/21 11:25:00EDT, Capsule, [facility]/pharmacy #[id number], 175.2, cm, 11/15/21 11:18:00 EDT, Height, 88.3, kg, 03/12/21 9:16:00 EDT, Dry Weight Start Date: 11/19/21 Status: Ordered rosuvastatin 20 mg oral tablet 1 tablet, By Mouth, Daily, # 90 tablet, 1 Refills, Maintenance, 08/15/21 14:24:00 EST, [facility]/pharmacy#0843, 175.2, cm, 07/31/21 11:20:00 EST, Height, 88.3, kg, 03/12/21 9:16:00 EDT, Dry Weight Start Date: 08/15/21 Status: Ordered SEROquel 100 mg oral tablet 100 mg, 1, tablet, By Mouth, 2 times a day, PRN, # 1 tablet, Refills 2, Tot. Refills 2, Maintenance, Anxiety, 09/21/19 10:41:00 EDT, Route to Pharmacy Electronically, [facility]/pharmacy #[id number], 172, cm, 09/05/19 16:17:00 EST, Height, [...] 3 Refills, Maintenance, 12/18/21 14:33:00 EDT, Suspension, [facility]/pharmacy #[id number], 1 drops Eyes, Both 2 times [...] # 30 capsule, 5 Refills, [facility], 175.2, cm, 11/15/21 11:18:00 EDT, Height, 88.3, kg, 03/12/21 9:16:00 EDT, Dry Weight Start Date: 11/17/21 Status: Ordered Problem List Condition Effective Dates Status Health Status Inform ant Bipolar disorder(Confirmed) Active Cervical spondylosis(Confirmed) Active Chronic back pain DJD(Confirmed) Active Glomerulonephritis,mesangial proliferative/fibrillary(Confirmed) 1, 2 Active Chronic renal failure, stage 4 (severe)(Confirmed) Active ASHD; [place] 2012/ circumfl ex vessel cath;abdelrahman 2018(Confirmed) 3 [...] Active Multiple lung nodules LDCT (Confirmed) Active Obese class I(Confirmed) Active Obesity(Confirmed) Active Lower extremity pain(Confirmed) Active [...] mild to moderate. 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 2013/[place] 4secondary to hep C 524 weeks therapy with sofosbuvir/weight based ribavirin 30603 inferolateral stent bare metal circumflex 7DR Marissa sx;Dr Schwartz 8hyperplatic polyp repeat screening in 2025 9repeat colonoscopy in 5 years Diagnosis Diagnosis Type Effective Dates Health Status Clinical Service Informant Near syncope Discharge Diagnosis 01/29/22 Hypertension Discharge Diagnosis 01/29/22 Hyperlipidemia Discharge Diagnosis 01/29/22 CAD (coronary artery disease) Discharge Diagnosis 01/29/22 Ex-cigarette smoker quit May 2019 LDCT Discharge Diagnosis 01/29/22 Obesity Discharge Diagnosis 01/29/22 Type 2 diabetes mellitus with diabetic nephropathy Discharge Diagnosis 01/29/22 Procedures Procedure Date Related Diagnosis Body Site Status CT of head and neck nad 01/27/22 C ompleted Electrocardiogram sinus 1 01/27/22 Completed 1Ventricular Rate: 64 BPM Atrial Rate: 64 BPM P-R Interval: 166 ms QRS Duration: 88 ms Q-T Interval: 406 ms QTC Calculation(Bazett): 418 ms P Danforth: 46 degrees R Danforth: 1 degrees T Danforth: 24 degrees Normal sinus rhythm Normal ECG When compared with ECG of 27-JAN-2022 16:54, MANUAL COMPARISON REQUIRED, DATA IS UNCONFIRMED Results Radiology Reports * Exam Date Time Procedure Performing Provider Status 01/27/22 8:18 PM Chest 2 Views Frontal and Lat Tanvir Connor; Auth (Verified) Notes: (Chest 2 Views Frontal and Lat) Reason For Exam: Shortness of Breath RESULT: Chest 2 Views Frontal and Lat Chest 2 Views Frontal and Lat Hx of Present Illness: Patient reports general weakness since last night, pt reports falling last night and hitting on wall, patient reports LOC, woke adn had difficulty getting up. Patient bit the side of tongue during episode.; Reason: Shortness of Breath; Clinical Question(s): Pneumonia COMPARISON: 04/23/2020 FINDINGS: LINES AND TUBES: None. LUNGS AND PLEURA: Clear lungs. Normal pulmonary vascularity. No pleural effusion. No pneumothorax. HEART, MEDIASTINUM AND CINTHYA: Heart is normal in size. Normal upper mediastinal and hilar contour. BONES AND SOFT TISSUES: No acute abnormality. IMPRESSION: No acute abnormality. WSN: [id number] Ordering Physician: Pablo Simon Dictated By: Joaquin Azar MD Dictated Date/Time: 01/27/22 8:46 pm Reviewed By: Joaquin Azar MD Signed By: Joaquin Azar MD Signed Date/Time: 01/27/22 8:46 pm Transcribed By: AYSHA Transcribed Date/Time: 01/27/22 8:45 pm Vital Signs Most recent to oldest [Reference Range]: 1 2 3 4 Height 175 cm (01/29/22 3:12 PM) 175 cm (01/29/22 1:00 PM) 175 cm (01/29/22 11:43 AM) 175 cm (01/29/22 11:43 AM) Weight 93 kg (01/28/22 2:55 PM) Oxygen Saturation [94-100 %] 98 % (01/29/22 3:12 PM) 99 % (01/29/22 7:12 AM) 96 % (01/29/22 12:00 AM) Pulse Rate [55-90 bpm] 81 bpm (01/29/22 3:12 PM) 79 bpm (01/29/22 1:00 PM) 72 bpm (01/29/22 11:43 AM) 75 bpm (01/29/22 11:43 AM) Body Mass Index [18.5-24.99] 30.37 *>HHI* (01/28/22 2:55 PM) Blood Pressure [90-138/55-84 mm Hg] 174/78mm Hg *H* (01/29/22 3:12 PM) 161/68mm Hg *H* (01/29/22 1:00 PM) 177/72mm Hg *H* (01/29/22 11:43 AM) 177/67mm Hg *H* (01/29/22 11:43 AM) Respiratory Rate [16-30 br/min] 20 br/min (01/29/22 3:12 PM) 20 br/min (01/29/22 11:43 AM) 20 br/min (01/29/22 11:43 AM) Temperature [96.8-100.4 DegF] 97.9 DegF (01/29/22 3:12 PM) 98.0 DegF (01/29/22 7:12 AM) 98.4 DegF (01/29/22 12:00 AM) Mode of Delivery (Oxygen) Room air (01/29/22 3:12 PM) Room air (01/29/22 7:12 AM) Room air (01/29/22 12:00 AM) Blood pressure sites Arm, left (01/29/22 3:12 PM) Arm, left (01/29/22 11:43 AM) Arm, right (01/29/22 11:43 AM) Temperature Route Oral (01/29/22 3:12 PM) Oral (01/29/22 7:12 AM) Oral (01/29/22 12:00 AM) Dry Weight 93 kg (01/28/22 2:55 PM) Weight Obtained Via Bed scale (01/28/22 2:55 PM) Dry Weight Obtained Via Bed scale (01/28/22 2:55 PM) Social History Social History Type Response Smoking Status Former smoker, quit more than 30 days ago; Interested in cessation: No; Other: quit; Tobacco use times per day: prio 1/2-1 ppd; Total pack years: 38; Started at age: 12; Stopped at age: 63; entered on: 07/20/20 Sex
--- OUTSIDE RECORDS SUMMARY | 2024-06-01 12:04 | XMS_ITS | Continuity of Care Document ---
Author Organization [facility] Address [address] [place] [address]- Care Team Providers Care Supervisor Orchard Name Role Phone Ben Viera MD Primary Care Physician [phone] Encounter [facility] Date(s): 04/26/20 - 06/27/20 [facility] [address] [place] [id number] Attending Physician: Jeffrey Leon MD Admitting Physician: Jeffrey Leon MD Referring Physician: Ben Viera MD Allergies, [...] 10:48:07 EST, Aerosol, Route to Pharmacy Electronically, [id number], [facility]/pharmacy #[id number], 180, cm, 06/17/19 10:36:11 EST, Height Start Date: 06/17/19 Status: Ordered aspirin 81 mg oral delayed release tablet 1 tablet, By Mouth, Daily, # 30 tablet, 11 Refills, Maintenance, 06/26/20 12:19:00 EST, [id number], 175, cm, 06/25/20 16:11:00 EST, Height, 83.6, [...] Maintenance, 01/02/20 15:47:00 EDT, CR Capsule, [facility]/pharmacy #[id number], 172, cm, 12/14/19 8:02:00 EDT, Height, 97.8, kg, 08/11/19 5:24:00 EST, Dry Weight Start Date: 01/02/20 Stop Date: 12/27/20 Status: Ordered cholecalciferol 2000 intl units oral capsule 1 capsule = 2,000 International_Units, By Mouth, Daily, # 30 capsule, 5 Refills, Maintenance, 05/25/20 11:53:00 EST, Capsule, [facility]/pharmacy #[id number], 175, cm, 05/24/20 12:46:00 EST, Height, 83.6, kg, 04/23/20 17:46:00 EDT, Dry Weight Start Date: 05/25/20 Status: Ordered cloNIDine 0.2 mg oral tablet 0.2 mg, 1, tablet, By Mouth, 2 times a day, # 60 tablet, Refills 2, Tot. Refills 2, Maintenance, 06/22/20 10:52:00 EST, Route to Pharmacy Electronically, [facility]/pharmacy #[id number], 175, cm, 05/24/20 12:46:00 EST, Height, 83.6, kg, 04/23/20 17:46:00 EDT, Dry... Start Date: 06/22/20 Status: Ordered Colace sodium 100 mg oral capsule 100 mg, 1, capsule, By Mouth, 2 times a day, PRN, # 60 capsule, Refills 5, Tot. Refills 5, Maintenance, for constipation, 02/27/20 15:25:00 EDT, Route to Pharmacy Electronically, [facility]/pharmacy #[id number], 172, cm, 12/14/19 8:02:00 EDT, Height, 97.8, kg, 02/... Start Date: 02/27/20 Status: Ordered Crestor 20 mg oral tablet 1 tablet = 20 mg, By Mouth, Daily, # 90 tablet, 3 Refills, Maintenance, 01/02/20 15:46:00 EDT, Tablet, [facility]/pharmacy #[id number], 172, cm, 12/14/19 8:02:00 EDT, Height, 97.8, kg, 08/11/19 5:24:00 EST, Dry Weight Start Date: 01/02/20 Status: Ordered Daily Simone oral tablet 1 tablet, By Mouth, Daily, # 30 tablet, 5 Refills, Maintenance, 03/01/20 14:48:00 EDT, Tablet, [facility]/pharmacy #[id number], 1 tablet By Mouth Daily,x30 days, 172, cm, 12/14/19 8:02:00 EDT, Height, 97.8, kg, 08/11/19 5:24:00 EST, Dry Weight Start Date: 03/01/20 Stop Date: 08/28/20 Status: Ordered folic acid 1 mg oral tablet 1 mg, 1, tablet, By Mouth, Daily, # 30 tablet, Refills 5, Tot. Refills 5, Maintenance, 12/29/19 11:13:00 EDT, Route to Pharmacy Electronically, [facility]/pharmacy #[id number], 172, cm, 12/14/19 8:02:00 [...] 5 Refills, Maintenance, 02/27/20 15:23:00 EDT, [facility]/pharmacy #[id number], 172, cm, 12/14/19 8:02:00 EDT, Height, 97.8, kg, 08/11/19 5:24:00 EST, Dry Weight Start Date: 02/27/20 Status: Ordered Golytely - oral powder for reconstitution 240 mL, By Mouth, Daily, bowel instruction, # 4,000 mL, 0 Refills, Maintenance, 06/21/20 16:44:00 EST, REC Powder, [facility]/pharmacy #[id number], Partial fill upon patient request if the prescription is for a schedule II opioid drug., 240 mL By Mouth Daily,Instr... Start Date: 06/21/20 Status: Ordered LaMICtal 100 mg oral tablet 100 mg, 1, tablet, By Mouth, 2 times a day, # 60 tablet, Refills 3, Tot. Refills 3, Maintenance, 01/21/19 11:25:36 EDT, Route to Pharmacy Electronically, [id number], [facility]/pharmacy #[id number] Start Date: 01/21/19 Stop [...] 15:45:00 EDT, Route to Pharmacy Electronically, [facility]/pharmacy #[id number], 172, cm, 12/14/19 8:02:00 EDT, Height, 9... Start Date: 01/02/20 Status: Ordered nicotine 2 mg oral transmucosal lozenge See Instructions, suck, up to q1 hrs 10 daily, # 144 lozenge, 1 Refills, Maintenance, 03/21/20 11:13:00 EDT, [facility]/pharmacy #[id number], suck, up to q1 hrs 10 daily, 172, cm, 03/21/20 11:04:00 EDT, Height, 97.8, kg, 08/11/19 5:24:00 EST, Dry Weight Start Date: 03/21/20 Status: Ordered nicotine 4 mg oral transmucosal lozenge 1 lozenge = 4 mg, By Mouth, Every hour, dispense 2 boxes of 81 count, # 189 lozenge, 1 Refills, Maintenance, 06/19/20 12:59:00 EST, [facility]/pharmacy #[id number], 1 lozenge By Mouth Every hour,Instr:dispense [...] 2 Refills, Soft Stop, 06/01/20 13:51:00 EST, [facility]/pharmacy #[id number], 175, cm, 05/24/20 12:46:00 EST, Height, 83.6, kg, 04/23/20 17:... Start Date: 06/01/20 Status: Ordered NovoLOG FlexPen 100 units/mL subcutaneous solution See Instructions, INJECT 0-18 UNITS SUBCUTANEOUSLY WITH MEALS FOR SLIDING SCALES, # 15 Unknown, 5 Refills, Soft Stop, 02/01/20 9:13:00 EDT, [facility]/pharmacy #[id number], 172, cm, 12/14/19 8:02:00 EDT, Height, 97.8, kg, 08/11/19 5:24:00 EST, Dry Weight Start Date: 02/01/20 Status: Ordered Pen [place], 31 G x 5 mm BD Ultra [...] EDT, Route to Pharmacy Electronically, [facility]/pharmacy #[id number], 172, cm, 09/05/19 16:17:00 [...] EST, Tablet, this was previously sent to [facility] pharmacy Start Date: 05/17/19 Stop Date: 05/11/20 [...] Active Glomerulonephritis,mesangial proliferative/fibrillary(Confirmed) 1, 2 Active ASHD; [place] 2012/stent circumfl ex vessel cath;abdelrahman 2018(Confirmed) 3 Active Epididymal cyst rt(Confirmed) 04/18/19 Active Low serum vitamin D(Confirmed) Active Dizzinesses(Confirmed) Active Insulin long-term use(Confirmed) Active Dysphagia(Confirmed) Active Ex-smoker quit 2018[place] [place](Confirmed) Active Fibrillary glomerulonephritis(Confirmed) 4 Active [...] 524 weeks therapy with sofosbuvir/weight based ribavirin 05441 inferolateral stent bare metal circumflex 7DR Seanverno [...]
--- OUTSIDE RECORDS SUMMARY | 2024-06-01 12:04 | XMS_ITS | Continuity of Care Document ---
Author Organization [facility] Address [address] [place] [address] [address] powers, [address] [place] [address]- Care Team Providers Care Shade Maker Name Role Phone Carrie TEAM MANAGER, Kelly Lopez Primary Care Physician Encounter [facility] Date(s): 10/27/23 - 11/03/23 [facility] [address] [place] [address] Drive [address] [place] [address]- Attending Physician: David Schwartz MD Referring Physician: Manohar Williamson MD Allergies, Adverse Reactions, Alerts Substance Reaction Severity Status Bee Stings Active Immunizations Given and Recorded Vaccine Date Status Refusal Reason tetanus/diphtheria/pertussis, acel(Tdap) 10/15/23 Recorded tetanus/diphtheria/pertussis, acel(Tdap) 07/28/11 Given SARS-CoV-2(COVID-19)mRNA-LNP vac([id number]) 05/08/23 Recorded pneumococcal 20-valent conjugate vaccine 1 [...] 02/03/23 Recorded zoster vaccine, inactivated 08/09/19 Recorded [id number] 12y+ bivalent booster vax 05/17/22 Recorded SARS-CoV-2 [...] adult vaccine 4 12/10/10 Given 1Result Comment: [id number] 2Result Comment: [id number] 3Admin Note: pt waited 10 mins post inj no adverse reaction noted.thierno kong 4Admin Note: PT WAITED 10 MIN WITH NO ADVERSE REACTION. Medications aspirin 81 mg oral delayed release tablet 1 tablet, By Mouth, Daily, # 90 tablet, 1 Refills, Maintenance, 06/02/23 11:42:00 EST, [facility]/pharmacy#[id number], 168, cm, 05/01/23 14:45:00 EDT, Height, [...] Refills, Maintenance, 06/30/23 7:20:00 EST, [facility], 168, cm, 05/01/23 14:45:00 EDT, Height, 93, kg, 01/28/22 14:55:00 EDT, Dry Weight Start Date: 06/30/23 Status: Ordered Daily Simone oral tablet 1 tablet, By Mouth, Daily, # 90 tablet, 1 Refills, Maintenance, 06/30/23 7:20:00 EST, [facility] STORE [id number], 90, TAKE 1 TABLET BY MOUTH EVERY [...] capsule, 0 Refills, Maintenance, 06/26/23 6:50:00 EST, [facility] STORE [id number], 168, cm, 05/01/23 14:45:00 EDT, Height, 93, kg, 01/28/22 14:55:00 EDT, Dry Weight Start Date: 06/26/23 Status: Ordered folic acid 1 mg oral tablet 1, tablet, By Mouth, Daily, # 90 tablet, Refills 1, Tot. Refills 1, Maintenance, 07/03/23 10:01:00 EST, Route to Pharmacy Electronically, [facility]/pharmacy #[id number], 168, cm, 05/01/23 14:45:00 EDT, [...] 01/21/19 11:25:36 EDT, Route to Pharmacy Electronically, [id number], [facility]/pharmacy #[id number] Start Date: 01/21/19 Stop Date: 05/21/19 Status: Ordered lamotrigine 100 mg oral tablet Refills 0, Maintenance, 05/01/23 15:28:00 EDT, Partial fill upon patient request if the prescription is for a schedule II opioid drug. Start Date: 05/01/23 Status: Ordered lisinopril 40 mg oral tablet 1 tablet, By Mouth, Daily, # 90 tablet, 1 Refills, Maintenance, 08/17/23 13:33:00 EST, [facility]/pharmacy#[id number], 168, cm, 07/23/23 15:05:00 EST, Height, 93, kg, 01/28/22 14:55:00 EDT, Dry Weight Start Date: 08/17/23 Status: Ordered Metoprolol Tartrate 50 mg oral tablet 1.5 tablet, By Mouth, 2 times a day, # 270 tablet, 1 Refills, Maintenance, 09/16/23 14:32:00 EDT, [facility]/pharmacy #[id number], 168, cm, 07/23/23 15:05:00 EST, [...] Weight Start Date: 11/07/22 Status: Ordered Pen [place], 31 G x 5 mm BD Ultra [...] Refills, Maintenance, 03/29/23 14:43:00 EDT, [facility], 175, cm, 10/09/22 16:51:00 EDT, Height, 93, [...] mild to moderate. 3MI 2012 circumflex stent 2013/OR 4secondary to hep C 524 weeks therapy with sofosbuvir/weight based ribavirin 31277 inferolateral stent bare metal circumflex 7DR Molddoverno sx;Dr Schwartz 8hyperplatic polyp repeat screening in 2025 9repeat colonoscopy in 5 years Vital Signs Most recent to oldest [Reference Range]: 1 Height 168.0 cm (10/27/23 3:34 PM) Weight 77 kg (10/27/23 3:34 PM) Body Mass Index [18.5-24.99 kg/m2] 27.28 kg/m2 *H* (10/27/23 3:34 PM) Social History Social History Type Response Smoking Status Former smoker, quit more than 30 days ago; Interested in cessation: No; Other: quit; Tobacco use times per day: prio 1/2-1 ppd; Total pack years: 38; Started at age: 12; Stopped at age: 63; entered on: 07/20/20 Sex Patient Care team information Care Team Personnel Name: Jeffrey Mccoy MD Position: [facility] Renal MD Member Role: Lifetime Consulting Physician Address: Address: [address] [place] [address] [address] [facility] [place] [place] [address]- Name: Kelly Butler NP Position: [facility] PCO Associate Professional Member Role: PCP Address: Address: [address] [place] [address]- Name: Kristin Mckenzie Position: [facility] Outreach Member Role: Lifetime Consulting Physician Name: Prieto Tobin RN Position: [facility] RN Member Role: Primary Care Nurse Name: Jonn Hui DO Position: [facility] Renal MD Member Role: Lifetime Consulting Physician Address: Address: [address] [facility] [place] [place] [address]- Name: Zafar CALVO, Luis Angel Rojas Position: [facility] RN Member Role: Primary Care Nurse Care Team Related Persons Name: CARLOS A BORDEN Address: home [address] [place] [address] Name: LEVI BORDEN Address: home [address] [place] [address]
--- OUTSIDE RECORDS SUMMARY | 2024-06-01 12:04 | XMS_ITS | Continuity of Care Document ---
Author Organization [facility] Nando Escobar Lazaro lt Address [address] [place] [address]- Care Team Providers Care Dental Technician Name Role Phone Carrie POST PARTUM NURSEKelly Primary Care Physician Encounter [facility] Date(s): 03/13/22 - 04/12/22 [facility] Nando Escobar Adult [address] [place] [address]- Allergies, Adverse Reactions, Alerts Substance Reaction Severity [...] capsule, 5 Refills, Maintenance, 06/05/21 15:57:00 EST, [facility]/pharmacy #[id number], 175.2, cm, 05/27/21 11:26:00 EST, Height, 88.3, kg, 03/12/21 9:16:00 EDT, Dry Weight Start Date: 06/05/21 Status: Ordered folic acid 1 mg oral tablet 1, tablet, By Mouth, Daily, # 30 tablet, Refills 5, Tot. Refills 5, Maintenance, 04/01/22 21:30:00 EDT, Route to Pharmacy Electronically, [facility]/pharmacy #[id number], 175, cm, 02/14/22 10:10:00 [...] 01/21/19 11:25:36 EDT, Route to Pharmacy Electronically, [id number], [facility]/pharmacy #[id number] Start Date: 01/21/19 Stop Date: 05/21/19 Status: Ordered lisinopril 40 mg oral tablet 1 tablet = 40 mg, By Mouth, Daily, # 30 tablet, 3 Refills, Maintenance, 09/17/21 10:50:00 EDT, Tablet, [facility]/pharmacy #[id number], Partial fill upon patient request if the prescription is for a schedule II opioid drug., 175.2, cm, 07/31/21 11:20:00 EST, Heigh... Start Date: 09/17/21 Status: Ordered Metoprolol Tartrate 50 mg oral tablet 1.5 tablet, By Mouth, 2 times a day, # 270 tablet, 0 Refills, 03/16/22 12:48:00 EDT, [facility]/pharmacy #[id number], 175, cm, 02/14/22 10:10:00 EDT, Height, 93, kg, 01/28/22 14:55:00 EDT, Dry Weight Start Date: 03/16/22 Status: Ordered nicotine 14 mg/24 hr transdermal film, extended release 1 patch, Topically, Daily, for 30 days, # 30 patch, 1 Refills, Acute 05/13/22 12:16:00 EST, 03/14/22 12:16:00 EDT, Patch, [facility]/pharmacy #[id number], 1 patch Topically Daily,x30 [...] tablet, 0 Refills, Maintenance, 12/31/21 17:21:00 EDT, [facility]/pharmacy #[id number], 175.2, cm, 12/18/21 14:10:00 EDT, Height... Start Date: 12/31/21 Status: Ordered NovoLOG FlexPen 100 units/mL injectable solution See Instructions, INJECT 0-18 UNITS SUBCUTANEOUSLY WITH MEALS FOR SLIDING SCALES, # 15 Unknown, 2 Refills, [facility] STORE [id number], 175.2, cm, 05/27/21 11:26:00 EST, Height, 88.3, kg, 03/12/21 9:16:00 EDT, Dry Weight Start Date: 06/04/21 Status: Ordered Pen [place], 31 G x 5 mm BD Ultra [...] 5 Refills, Maintenance, 04/08/22 9:12:00 EDT, Capsule, [facility]/pharmacy #[id number], 175, cm, 04/08/22 8:34:00 EDT, Height, 93, kg, 01/28/22 14:55:00 EDT, Dry Weight Start Date: 04/08/22 Status: Ordered rosuvastatin 20 mg oral tablet 1 tablet, By Mouth, Daily, # 90 tablet, 1 Refills, [facility] STORE [facility]13, 175, cm, 01/29/22 15:12:00 EDT,Height, 93, kg, 01/28/22 14:55:00 EDT, Dry Weight Start Date: 01/30/22 Status: Ordered SEROquel 100 mg oral tablet 100 mg, 1, tablet, By Mouth, 2 times a day, PRN, # 1 tablet, Refills 2, Tot. Refills 2, Maintenance, Anxiety, 09/21/19 10:41:00 EDT, Route to Pharmacy Electronically, [facility]/pharmacy #[id number], 172, cm, 09/05/19 [...] 3 Refills, Maintenance, 04/08/22 9:09:00 EDT, Suspension, [facility]/pharmacy #[id number], 1 drops Eyes, Both [...] # 30 capsule, 5 Refills, [facility], 175.2, cm, 11/15/21 11:18:00 EDT, Height, 88.3, kg, 03/12/21 9:16:00 EDT, Dry Weight Start Date: 11/17/21 Status: Ordered Problem List Condition Confirmation Course Effective Dates Status Health Status Informant Bipolar disorder Confirmed Active Cervical spondylosis Confirmed Active Chronic back pain DJD Confirmed Active Glomerulonephritis,ulloa ngial proliferative/fibrillar y 1, 2 Confirmed Active Chronic renal failure, stage 4 (severe) Confirmed Active ASHD; [place] 2012/stent circumflex vessel [...] 524 weeks therapy with sofosbuvir/weight based ribavirin 77014 inferolateral stent bare metal circumflex 7DR Molddoverno [...] Personnel Name: Kelly Butler NP Address: Address: [address] [place] [address]
--- OUTSIDE RECORDS SUMMARY | 2024-06-01 12:04 | XMS_ITS | Continuity of Care Document ---
Author Organization [facility] Shawn Lazaro lt Address [address] [place] [address]- Care Team Providers Care Adobe Flex Developer Name Role Phone Carrie RIVERA, Kelly Lopez Primary Care Physician [place] [facility] [place] 04/15/24 - 04/22/24 [facility] Adult [address] [place] [address]- Encounter Diagnosis Hypertension(Discharge Diagnosis) - 04/15/24 CKD (chronic kidney disease) stage 4, GFR 15-29 ml/min(Discharge Diagnosis) - 04/15/24 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) - 04/15/24 Attending Physician: Kelly Butler NP Referring Physician: [...] virus vaccine, inactivated 04/16/10 Give n SARS-CoV-2(COVID-19)mRNA-LNP vac([id number]) 12/31/23 Recorded SARS-CoV-2(COVID-19)mRNA-LNP vac([id number]) 05/08/23 Recorded tetanus/diphtheria/pertussis, acel(Tdap) 10/15/23 Recorded tetanus/diphtheria/pertussis, acel(Tdap) 07/28/11 Given pneumococcal 20-valent conjugate vaccine 3 05/01/23 Given zoster vaccine, inactivated 02/03/23 Recorded zoster vaccine, inactivated 08/09/19 Recorded [id number] 12y+ bivalent booster vax 05/17/22 Recorded SARS-CoV-2 [...] 12/10/10 Given 1Result [facility] Comment: [id number] 3Result Comment: [id number] 4Admin Note: pt waited 10 mins post inj no adverse reaction noted.j a 5Admin Note: PT WAITED 10 MIN WITH NO ADVERSE REACTION. Medications albuterol 90 mcg/inh inhalation powder 1 puffs, Inhalation, Every 6 hours, PRN Wheezing/Shortness of Breath, # 1 each, 0 Refills, Maintenance, 02/15/24 13:38:00 EDT, Powder, [facility]/pharmacy #[id number], Partial fill upon patient request if the prescription is for a schedule II opioid drug., 1 puffs... Start Date: 02/15/24 Status: Ordered amLODIPine 10 mg oral tablet 10 mg, By Mouth, Daily, # 30 tablet, Refills 5, Tot. Refills 5, Maintenance, 03/11/24 11:59:00 EDT,Route to Pharmacy Electronically, [facility]/pharmacy #[id number], Partial fill upon patient [...] Refills, Maintenance, 01/11/24 14:46:00 EDT, Tablet, [facility]/pharmacy #[id number], Partial fill upon patient request if the prescription is for a schedule II opioid drug., 168, cm, 01/11/24 14:42:00 EDT, Height,... Start Date: 01/11/24 Status: Ordered Flonase Allergy Relief 50 mcg/inh nasal spray See Instructions, 1 sprays Daily in each nostril, # 16 Gm, 0 Refills, Maintenance, 02/15/24 13:39:00 EDT, [facility]/pharmacy #[id number], Partial fill upon patient request if the prescription is for a schedule II opioid drug., 168, cm, 02/03/24 10:41:00 EDT, Height Start Date: 02/15/24 Status: Ordered folic acid 1 mg oral tablet 1, tablet, By Mouth, Daily, # 90 tablet, Refills 1, Tot. Refills 1, Maintenance, 02/17/24 7:23:00 EDT, Route to Pharmacy Electronically, [facility]/pharmacy #[id number], 168, cm, 02/15/24 13:43:00 EDT, [...] 01/21/19 11:25:36 EDT, Route to Pharmacy Electronically, [id number], [facility]/pharmacy #[id number] Start Date: 01/21/19 Stop Date: 05/21/19 Status: Ordered lisinopril 10 mg oral tablet 10 mg, 1, tablet, By Mouth, Daily, # 90 tablet, Refills 0, Tot. Refills 0, Maintenance, 04/19/24 9:02:00 EDT, Route to Pharmacy Electronically, [facility]/pharmacy #[id number], 168, cm, 04/15/24 10:23:00 EDT, [...] tablet, 0 Refills, Maintenance, 03/17/24 14:24:00 EDT, [facility]/pharmacy #[id number], 168, cm, 03/17/24 9:46:00 EDT, [...] Unknown, 2 Refills, 01/12/24 14:36:00 EDT, [facility]/pharmacy #[id number], MAX DAILY DOSE 54 UNITS, [...] mL, 0 Refills, Maintenance, 02/02/24 15:28:00 EDT, [place], [facility]/pharmacy #[id number], Partial fill upon patient... Start Date: 02/02/24 Status: Ordered Pen [place], 31 G x 5 mm BD Ultra [...] Refills, Maintenance, 02/04/24 16:39:00 EDT, [facility], 168, cm, 02/03/24 10:41:00 EDT, Height Start [...] 4, GFR 15-29 ml/min Confirmed Active ASHD; [place] 2012/stent circumflex 2012/vessel cath;abdelrahman 2018 3 Confirmed [...] mild to moderate. 3MI 2012 circumflex stent 2012/[place] 4secondary to hep C 524 weeks therapy with sofosbuvir/weight based ribavirin 59920 inferolateral stent bare metal circumflex 7DR Molddoverno sx;Dr Schwartz 8hyperplatic polyp repeat screening in 2025 9repeat colonoscopy in 5 years Diagnosis Diagnosis Type Effective Dates Health Status Clinical Service Informant Hypertension Discharge Diagnosis 04/15/24 CKD (chronic kidney disease) stage 4, GFR 15-29 ml/min Discharge Diagnosis 04/15/24 Type 2 diabetes mellitus with diabetic nephropathy Discharge Diagnosis 04/15/24 Vital Signs Most recent to oldest [Reference Range]: 1 2 3 Height 168.0 cm (04/15/24 10:23 AM) 168.0 cm (04/15/24 10:09 AM) 168.0 cm (04/15/24 10:02 AM) Weight 89.3 kg (04/15/24 10:02 AM) Oxygen Saturation [94-100 %] 97 % (04/15/24 10:02 AM) Pulse Rate [55-90 bpm] 72 bpm (04/15/24 10:02 AM) Body Mass Index [18.5-24.99 kg/m2] 31.64 kg/m2 *>HHI* (04/15/24 10:02 AM) Blood Pressure [90-138/55-84 mm Hg] 144/50mm Hg *H* (04/15/24 10:23 AM) 137/68mm Hg (04/15/24 10:09 AM) 125/69mm Hg (04/15/24 10:02 AM) Mode of Delivery (Oxygen) Room air (04/15/24 10:02 AM) Blood pressure sites Arm, left (04/15/24 10:23 AM) Arm, right (04/15/24 10:09 AM) Arm, left (04/15/24 10:02 AM) Weight Obtained Via Standing scale (04/15/24 10:02 AM) Social History Social History Type Response Smoking Status Former smoker, quit more than 30 days ago; Interested in cessation: No; Other: quit; Tobacco use times per day: prio 1/2-1 ppd; Total pack years: 38; Started at age: 12; Stopped at age: 63; entered on: 07/20/20 Sex Note * Clara Mejia: PERFORM Event Display: Patient Education/Instruction Authored Date: Ambulatory Adult Visit Summary [facility] Adult [facility] [address] [place] [address] Name: BRITTANY BORDEN : 1955?? Visit: 04/15/2024 09:49?? Ambulatory Visit Instructions ?? Your Care Team Primary Care Provider Carrie Kelly RIVERA? This Visit Provider Carrie Kelly RIVERA Vitals Signs Pulse Rate: 72 bpm Height: 168 cm Systolic Blood Pressure:??144 mm Hg??High Weight: 89.3 kg Diastolic Blood Pressure:??50 mm Hg??Low Body Mass Index:??31.64 kg/m2??Critical Oxygen Saturation: 97 % Body surface area: 2.04 What to do next Scheduled Follow-Up Appointments Thursday 2:15 PM EDT ?? With: Laury RIVERA, Larissa Riddle Where: [facility] [address] [facility] [address] [place] [address]- Status: Pending Thursday 3:00 PM EST ?? With: Alley Esquivel RN Where: [facility] Status: Pending Thursday 2:30 PM EST ?? With: Carrie RIVERA, Kelly Lopez Where: [facility] [address] [place] [address]- Status: Pending Follow-Up Appointments Follow Up with??clinical visit Why: for BP check in 2 weeks Future Orders COVID-19 (2019 Novel Coronavirus) PCR - Routine, Nose, Patient is Symptomatic, Once, 02/03/24 10:56:00 EDT, Order for Today, [facility], Swab?? PSA Screen - Routine, Once, 03/17/24 14:01:00 EDT, Order for Today, [facility], Blood?? Vitamin D 25 Hydroxy Level - Routine, Once, 03/17/24 14:03:00 EDT, Order for Today, [facility], Blood?? Comprehensive Metabolic Panel - Routine, Once, 03/17/24 14:03:00 EDT, Order for Today, [facility], Blood?? Microalbumin Urine - Routine, Once, 03/17/24 14:03:00 EDT, Order for Today, [facility], Urine?? Medications The list below reflects the information in our records and provided by you today along with any changes made during this visit. Please continue your medications until treatment is completed or stopped by your provider. If this is different from the information you have or there are other questions,please contact the prescribing provider. What How Much When Why Instructions Changed Lisinopril (lisinopril 20 mg oral tablet) 1 tab(s) Oral Daily increased strength ?? Pickup at [facility]/pharmacy #[id number] Unchanged Albuterol (albuterol 90 mcg/ inh inhalation [...] E11.9 ?? Unchanged Durable Medical Equipment (Pen [place], 31 G x 5 mm BD Ultra [...] Twice a day Duration: 30 Days Unchanged Lorazepam (Ativan 1 mg oral tablet) [...] tablet) 1 tab(s) Oral Daily Pharmacy Information [facility]/pharmacy #[id number]: [address] [place] [address] [phone] Medications and Immunizations Administered Medications Given During [...] are strongly encouraged to quit. Please call [facility] at [phone] or [phone] [place] (2605) or log in to [email or web address] for referrals to smoking cessation programs. ?? The National Suicide Prevention Hotline is available 26/01 if you or someone you know needs to find a reason to keep living. By calling 6-522-695-[facility] (6010) you'll be connected to a skilled, trained counselor at a crisis center in your area. [facility] Health Portal You can view and manage your care through the patient portal or by using a health care [place] of your choosing. [employer] is a website that allows you to securely view your medical information including your hospital discharge summary, office visit summaries, medications and follow-up visits. You can also request appointments, renew medications, and request access to your medical information using a health care [place] of your choosing, or just ask a question. You can enroll at [email or web address] or register during your next office visit. [facility], in keeping with [facility] guidance, no longer requires face masks [...] primary care provider, you may find a [facility] provider by calling [facility] [employer] [facility] at [phone]. Patient Care team information Care Team Personnel Name: Jeffrey Mccoy MD Position: [facility] Renal MD Member Role: Lifetime Consulting Physician Address: Address: [address] [place] [address] [address] [facility] [place] [address]- [place] Name: Kelly Butler NP Position: [facility] PCO Associate Professional Member Role: PCP Address: Address: [address] [place] [address]- [place] Name: Kristin Mckenzie Position: [facility] Outreach Member Role: Lifetime Consulting Physician Name: Fortunato Sin RN Position: [facility] RN Member Role: Primary Care Nurse Name: Nury Watts RN Position: [facility] RN Member Role: Primary Care Nurse Name: Antonia Mena NP Position: S Associate Professional Member Role: Lifetime Consulting Provider Address: Address: [address] [place] [address] [address] [facility] [place], [place] [address] Name: Prieto Tobin RN Position: S RN Member Role: Primary Care Nurse Name: Ashleigh Reynoso RN Position: S RN Member Role: Primary Care Nurse Name: Jonn Hui DO Position: [facility] Renal MD Member Role: Lifetime Consulting Physician Address: Address: [address] [place], [place] [address] [place], [place] [address] Name: Luis Angel Stephen RN Position: [facility] RN Member Role: Primary Care Nurse Name: Brandan Nogueira RN Position: [facility] RN Member Role: Primary Care Nurse Care Team Related Persons Name: CARLOS A BORDEN Address: home [address] [place] [address] Name: LEVI BORDEN Address: home [address] [place] [address]
--- OUTSIDE RECORDS SUMMARY | 2024-06-01 12:04 | XMS_ITS | Continuity of Care Document ---
Author Organization [facility] Address [address] [place] [address]- Care Team Providers Care Return To Service Inspector Name Role Phone Ben Viera MD Primary Care Physician [phone] Encounter [facility] Date(s): 11/28/21 - 02/01/22 [facility] [address] [place] [address]- Attending Physician: Larissa Schaeffer NP Admitting Physician: Larissa Schaeffer NP Referring Physician: Ben Viera MD Allergies, [...] 5 Refills, Maintenance, 07/29/21 13:53:00 EST, [facility], [id number], 1 tablet By Mouth Daily,x30 days, 175.2, cm, 06/07/21 9:51:00 EST, Height, 88.3, kg,03/12/21 9:16:00 EDT, Dry Weight Start Date: 07/29/21 Stop Date: 01/25/22 Status: Ordered docusate sodium 100 mg oral capsule 1 capsule, By Mouth, 2 times a day, PRN NEEDED FOR CONSTIPATION, # 60 capsule, 5 Refills, Maintenance, 06/05/21 15:57:00 EST, [facility]/pharmacy #[id number], 175.2, cm, 05/27/21 11:26:00 EST, Height, 88.3, kg, 03/12/21 9:16:00 EDT, Dry Weight Start Date: 06/05/21 Status: Ordered folic acid 1 mg oral tablet 1, tablet, By Mouth, Daily, # 30 tablet, Refills 5, Tot. Refills 5, Maintenance, 07/25/21 15:59:00 EST, Route to Pharmacy Electronically, [facility]/pharmacy #[id number], 175.2, cm, 06/07/21 9:51:00 EST, [...] 01/21/19 11:25:36 EDT, Route to Pharmacy Electronically, [id number], [facility]/pharmacy #[id number] Start Date: 01/21/19 Stop Date: 05/21/19 Status: Ordered lisinopril 40 mg oral tablet 1 tablet = 40 mg, By Mouth, Daily, # 30 tablet, 3 Refills, Maintenance, 09/17/21 10:50:00 EDT, Tablet, [facility]/pharmacy #[id number], Partial fill upon patient request if the prescription is for a schedule II opioid drug., 175.2, cm, 07/31/21 11:20:00 EST, Heigh... Start Date: 09/17/21 Status: Ordered Metoprolol Tartrate 50 mg oral tablet 1.5 tablet, By Mouth, 2 times a day, # 270 tablet, 0 Refills, [facility], 175.2, cm, 11/15/21 11:18:00 EDT, Height, 88.3, kg, 03/12/21 9:16:00 EDT, Dry Weight Start Date: 12/12/21 Status: Ordered nicotine 2 mg oral transmucosal lozenge 1 lozenge = 2 mg, By Mouth, Every 4 hours, for 4 week(s), as directed on package labeling, # 144 lozenge, 0 Refills, Physician Stop 04/03/22 12:37:00 EDT, 03/06/22 12:37:00 EDT, [id number], 1lozenge By Mouth Every 4 hours,x4 week(s),Instr:as... Start Date: 03/06/22 Stop Date: 04/03/22 Status: Ordered nicotine 2 mg oral transmucosal [...] # 15 Unknown, 2 Refills, [facility], 175.2, cm, 05/27/21 11:26:00 EST, Height, 88.3, kg, 03/12/21 9:16:00 EDT, Dry Weight Start Date: 06/04/21 Status: Ordered Pen [place], 31 G x 5 mm BD Ultra [...] capsule, 5 Refills, Maintenance, 11/19/21 11:25:00EDT, Capsule, [facility]/pharmacy #[id number], 175.2, cm, 11/15/21 11:18:00 EDT, Height, 88.3, kg, 03/12/21 9:16:00 EDT, Dry Weight Start Date: 11/19/21 Status: Ordered rosuvastatin 20 mg oral tablet 1 tablet, By Mouth, Daily, # 90 tablet, 1 Refills, [facility] STORE 14[facility], 175, cm, 01/29/22 15:12:00 EDT,Height, 93, kg, 01/28/22 14:55:00 EDT, Dry Weight Start Date: 01/30/22 Status: Ordered SEROquel 100 mg oral tablet 100 mg, 1, tablet, By Mouth, 2 times a day, PRN, # 1 tablet, Refills 2, Tot. Refills 2, Maintenance, Anxiety, 09/21/19 10:41:00 EDT, Route to Pharmacy Electronically, [facility]/pharmacy #[id number], 172, cm, 09/05/19 16:17:00 EST, [...] 3 Refills, Maintenance, 12/18/21 14:33:00 EDT, Suspension, [id number], 1 drops Eyes, Both 2 times [...] # 30 capsule, 5 Refills, [facility], 175.2, cm, 11/15/21 11:18:00 EDT, Height, 88.3, kg, 03/12/21 9:16:00 EDT, Dry Weight Start Date: 11/17/21 Status: Ordered Problem List Condition Effective Dates Status Health Status Inform ant Bipolar disorder(Confirmed) Active Cervical spondylosis(Confirmed) Active Chronic back pain DJD(Confirmed) Active Glomerulonephritis,mesangial proliferative/fibrillary(Confirmed) 1, 2 Active Chronic renal failure, stage 4 (severe)(Confirmed) Active ASHD; [place] 2012/ circumfl ex vessel cath;abdelrahman 2018(Confirmed) 3 [...] mild to moderate. 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 2013/[place] 4secondary to hep C 524 weeks therapy with sofosbuvir/weight based ribavirin 37448 inferolateral stent bare metal circumflex 7DR Marissa [...]
--- OUTSIDE RECORDS SUMMARY | 2024-06-01 12:04 | XMS_ITS | Continuity of Care Document ---
Author Organization [facility] Nando Escobar Lazaro lt Address [address] [place] [address]- Care Team Providers Care Metal Drill Operator Name Role Phone Carrie HEAD OF COMMISSION DEPARTMENTKelly Primary Care Physician [phone] Encounter [facility] Date(s): 07/31/22 - 08/30/22 [facility] Nando Escobar Adult [address] [place] [address]- Allergies, Adverse Reactions, Alerts Substance Reaction Severity [...] influenza virus vaccine, inactivated 04/16/10 Give n [id number] 12y+ bivalent booster vax 05/17/22 Recorded SARS-CoV-2 [...] Refills, Maintenance, 05/21/22 13:33:00 EST, [facility], 175, cm, 05/09/22 11:08:00 EDT, Height, 93, [...] 08/15/22 10:27:00 EST, [id number] 175, cm, 07/17/22 10:33:00 EST, Height, [...] 01/21/19 11:25:36 EDT, Route to Pharmacy Electronically, [id number], [facility]/pharmacy #[id number] Start Date: 01/21/19 Stop Date: 05/21/19 Status: Ordered lisinopril 40 mg oral tablet 1 tablet, By Mouth, Daily, # 90 tablet, 1 Refills, Maintenance, 05/07/22 14:29:00 EDT, [facility], 175, cm, 04/08/22 8:34:00 EDT, Height, 93, kg, 01/28/22 14:55:00 EDT, Dry Weight Start Date: 05/07/22 Status: Ordered Metoprolol Tartrate 50 mg oral tablet 1.5 tablet, By Mouth, 2 times a day, # 270 tablet, 0 Refills, 05/21/22 10:19:00 EST, [facility]/pharmacy #[id number], 175, cm, 05/09/22 11:08:00 EDT, Height, 93, kg, 01/28/22 14:55:00 EDT, Dry Weight Start Date: 05/21/22 Status: Ordered Nicotine 7 mg/24 hour patch 1 patch, Topically, Daily, # 30 patch, 0 Refills, Acute 09/26/22 8:00:00 EDT, 08/29/22 16:51:00 EST, Patch, [facility]/pharmacy #0843, Partial [...] tablet, 0 Refills, Maintenance, 12/31/21 17:21:00 EDT, [facility]/pharmacy #[id number], 175.2, cm, 12/18/21 14:10:00 EDT, Height... Start Date: 12/31/21 Status: Ordered NovoLOG FlexPen 100 units/mL injectable solution See Instructions, INJECT 0-18 UNITS SUBCUTANEOUSLY WITH MEALS FOR SLIDING SCALES, # 15 Unknown, 2 Refills, [facility], 175.2, cm, 05/27/21 11:26:00 EST, Height, 88.3, kg, 03/12/21 9:16:00 EDT, Dry Weight Start Date: 06/04/21 Status: Ordered Pen [place], 31 G x [...] Refills, Maintenance, 05/21/22 13:33:00 EST, [facility], 175, cm, 05/09/22 11:08:00 EDT, Height, 93, [...] 4, GFR 15-29 ml/min Confirmed Active ASHD; [place] 2012/stent circumflex vessel cath;abderlahman 2018 3 Confirmed Active Epididymal cyst rt [...] 524 weeks therapy with sofosbuvir/weight based ribavirin 46498 inferolateral stent bare metal circumflex 7DR Molddoverno [...] Role: Lifetime Consulting Physician Address: Address: [address] [place] [address] [facility] [place], [place] [address] Name: Kelly Butler NP Position: [facility] PCO Associate Professional Member Role: PCP Address: Address: [address] [place] [address]- Name: Kristin Mckenzie Position: [facility] Outreach Member Role: Lifetime Consulting Physician Name: Prieto Tobin RN Position: [facility] RN Member Role: Primary Care Nurse Name: Jonn Hui DO Position: [facility] Renal MD Member Role: Lifetime Consulting Physician Address: Address: [address] [place], [place] [address] [place], [place] [address] Name: Luis Angel Stephen RN Position: [facility] RN Member Role: Primary Care Nurse Name: Tamie Baird RN Position: S RN Member Role: Primary Care Nurse Care Team Related Persons Name: CARLOS A BORDEN Address: home [address] [place] [address] [place] Name: LEVI BORDEN Address: home [address] [place] [address]
--- OUTSIDE RECORDS SUMMARY | 2024-06-01 12:04 | XMS_ITS | Continuity of Care Document ---
Author Organization [facility] Nando Escobar Lazaro lt Address [address] [place] [address]- Care Team Providers Care Die Sinker Apprentice Name Role Phone Carrie GRADES 9 THROUGH 12 TEACHERKelly Primary Care Physician [facility] Date[facility]s): 11/06/22 - 12/06/22 [facility] Shawn Adult [address] [place] [address]- Allergies, Adverse Reactions, Alerts Substance Reaction Severity [...] influenza virus vaccine, inactivated 04/16/10 Give n [id number] 12y+ bivalent booster vax 05/17/22 Recorded SARS-CoV-2 [...] capsule, 5 Refills, Maintenance, 07/18/22 11:59:00 EST, [facility]/pharmacy #[id number], 175, cm, 07/17/22 10:33:00 EST, Height, 93, kg, 01/28/22 14:55:00 EDT, Dry Weight Start Date: 07/18/22 Status: Ordered Flonase 50 mcg/inh nasal spray 1 sprays, Nares, Both, 2 times a day, # 16 Gm, 0 Refills, Maintenance, 09/05/22 9:15:00 EST, [place],[facility]/pharmacy #[id number], Partial fill upon patient request if the prescription is for a schedule II opioid drug., 1 sprays Nares, Both 2 times a day, 175, c... Start Date: 09/05/22 Status: Ordered folic acid 1 mg oral tablet 1, tablet, By Mouth, Daily, # 30 tablet, Refills 5, Tot. Refills 5, Maintenance, 08/15/22 10:27:00 EST, Route to Pharmacy Electronically, [facility]/pharmacy #[id number], 175, cm, 07/17/22 [...] 01/21/19 11:25:36 EDT, Route to Pharmacy Electronically, [id number], [facility]/pharmacy #[id number] Start Date: 01/21/19 Stop Date: 05/21/19 Status: Ordered lisinopril 40 mg oral tablet 1 tablet, By Mouth, Daily, # 90 tablet, 0 Refills, Maintenance, 10/24/22 10:11:00 EDT, [facility]/pharmacy#0843, 175, cm, 10/09/22 16:51:00 EDT, Height, 93, kg, 01/28/22 14:55:00 EDT, Dry Weight Start Date: 10/24/22 Status: Ordered Metoprolol Tartrate 50 mg oral tablet 1.5 tablet, By Mouth, 2 times a day, # 270 tablet, 1 Refills, Maintenance, 09/01/22 13:28:00 EST, [facility] STORE [facility], 175, cm, 07/17/22 10:33:00 EST, Height, 93, kg, 01/28/22 14:55:00 EDT, Dry Weight Start Date: 09/01/22 Status: Ordered Nicotine 7 mg/24 hour patch 1 patch, Topically, Daily, # 30 patch, 0 Refills, Maintenance, 11/17/22 11:45:00 EDT, Patch, [facility]/pharmacy #[id number], Partial fill [...] tablet, 0 Refills, Maintenance, 10/03/22 15:53:00 EDT, [facility]/pharmacy #[id number], 175, cm, 09/17/22 13:59:00 EDT, Height,... Start Date: 10/03/22 Status: Ordered NovoLOG FlexPen 100 units/mL injectable solution See Instructions, INJECT 0-18 UNITS SUBCUTANEOUSLY WITH MEALS FOR SLIDING SCALES, # 15 Unknown, 2 Refills, 11/07/22 0:09:00 EDT, [facility]/pharmacy #[id number], 175, cm, 10/09/22 16:51:00 EDT, Height, 93, kg, 01/28/22 14:55:00 EDT, Dry Weight Start Date: 11/07/22 Status: Ordered Pen [place], 31 G x 5 mm BD Ultra [...] capsule, 2 Refills, Maintenance, 08/07/22 12:55:00EST, Capsule, [facility]/pharmacy #[id number], 175, cm, 07/17/22 10:33:00 EST, Height, 93, kg, 01/28/22 14:55:00EDT, Dry Weight Start Date: 08/07/22 Status: Ordered rosuvastatin 20 mg oral tablet 1 tablet, By Mouth, Daily, # 90 tablet, 1 Refills, Maintenance, 05/21/22 13:33:00 EST, [facility], 175, cm, 05/09/22 11:08:00 EDT, Height, 93, kg, 01/28/22 14:55:00 EDT, Dry Weight Start Date: 05/21/22 Status: Ordered Senna 8.6 mg oral tablet 1 or 2 tablets, By Mouth, Daily at bedtime, PRN, # 60 tablet, Refills 5, Tot. Refills 5, Maintenance, Constipation, 11/03/22 15:04:00 EDT, Route to Pharmacy Electronically, [facility]/pharmacy #[id number] Tablet,Partial fill upon [...] 9 Unknown, 1 Refills, 01/21/22 15:39:00 EDT, [facility]/pharmacy #[id number], 175.2, cm, 12/18/21 14:10:00 EDT, Height... Start Date: 01/21/22 Status: Ordered Trulicity Pen 0.75 mg/0.5 mL subcutaneous solution 0.5 mL = 0.75 mg, Subcutaneous Injection, Every week, # 2.5 mL, 2 Refills, Maintenance, 04/08/22 9:12:00 EDT, Solution, [facility]/pharmacy #[id number], Partial fill [...] ml/min Confirmed Active ASHD; [place] 2012/stent circumflex vessel cath;abdelrahman 2018 3 Confirmed [...] 524 weeks therapy with sofosbuvir/weight based ribavirin 30616 inferolateral stent bare metal circumflex 7DR Marissa [...] Role: Lifetime Consulting Physician Address: Address: [address] [place] [address] [facility] [place] [address]- Name: Kelly Btuler NP Position: [facility] Associate Professional Member Role: PCP Address: Address: [address] [place] [address]- Name: Kristin Mckenzie Position: [facility] Outreach Member Role: Lifetime Consulting Physician Name: Prieto Tobin RN Position: S RN Member Role: Primary Care Nurse Name: Jonn Hui DO Position: [facility] Renal MD Member Role: Lifetime Consulting Physician Address: Address: [address] [place], [place] [address] [place] [address]- Name: Luis Angel Stephen RN Position: [facility] RN Member Role: Primary Care Nurse Name: Tamie Baird RN Position: S RN Member Role: Primary Care Nurse Care Team Related Persons Name: CARLOS A BORDEN Address: home [address] [place] [address] Name: LEVI BORDEN Address: home [address] [place] [address]
--- OUTSIDE RECORDS SUMMARY | 2024-06-01 12:04 | XMS_ITS | Continuity of Care Document ---
Author Organization [facility] Lazaro lt Address [address] [place] [address]- Care Team Providers Care Real Estate Leasing Agent Name Role Phone Carrie Kelly RIVERA Primary Care Physician [phone] Encounter [facility] Date(s): 11/18/23 - 12/18/23 [facility] Adult [address] [place] [address]- Allergies, Adverse Reactions, Alerts Substance Reaction Severity Status Bee Stings Active Immunizations Given and Recorded Vaccine Date Status Refusal Reason tetanus/diphtheria/pertussis, acel(Tdap) 10/15/23 Recorded tetanus/diphtheria/pertussis, acel(Tdap) 07/28/11 Given SARS-CoV-2(COVID-19)mRNA-LNP vac([id number]) 05/08/23 Recorded pneumococcal 20-valent conjugate vaccine 1 [...] 02/03/23 Recorded zoster vaccine, inactivated 08/09/19 Recorded [id number] 12y+ bivalent booster vax 05/17/22 Recorded SARS-CoV-2 [...] adult vaccine 4 12/10/10 Given 1Result Comment: [id number] 2Result Comment: [id number] 3Admin Note: pt waited 10 mins post inj no adverse reaction noted.thierno kong 4Admin Note: PT WAITED 10 MIN WITH NO ADVERSE REACTION. MH Medications aspirin 81 mg oral delayed release tablet 1 tablet, By Mouth, Daily, # 90 tablet, 1 Refills, Maintenance, 06/02/23 11:42:00 EST, [facility]/pharmacy#[id number], 168, cm, 05/01/23 14:45:00 EDT, Height, [...] tablet, 1 Refills, Maintenance, 06/30/23 7:20:00 EST, [facility] STORE [id number], 90, TAKE 1 TABLET BY MOUTH EVERY [...] Refills, Maintenance, 11/10/23 22:03:00 EDT, [facility], 168, cm, 10/27/23 15:34:00 EDT, Height, 93, kg, 01/28/22 14:55:00 EDT, Dry Weight Start Date: 11/10/23 Status: Ordered folic acid 1 mg oral tablet 1, tablet, By Mouth, Daily, # 90 tablet, Refills 1, Tot. Refills 1, Maintenance, 07/03/23 10:01:00 EST, Route to Pharmacy Electronically, [facility]/pharmacy #[id number], 168, cm, 05/01/23 14:45:00 EDT, [...] 01/21/19 11:25:36 EDT, Route to Pharmacy Electronically, [id number], [facility]/pharmacy #[id number] Start Date: 01/21/19 Stop Date: 05/21/19 Status: Ordered lamotrigine 100 mg oral tablet Refills 0, Maintenance, 05/01/23 15:28:00 EDT, Partial fill upon patient request if the prescription is for a schedule II opioid drug. Start Date: 05/01/23 Status: Ordered lisinopril 40 mg oral tablet 1 tablet, By Mouth, Daily, # 90 tablet, 1 Refills, Maintenance, 08/17/23 13:33:00 EST, [facility]/pharmacy#[id number], 168, cm, 07/23/23 15:05:00 EST, Height, 93, kg, 01/28/22 14:55:00 EDT, Dry Weight Start Date: 08/17/23 Status: Ordered Metoprolol Tartrate 50 mg oral tablet 1.5 tablet, By Mouth, 2 times a day, # 270 tablet, 1 Refills, Maintenance, 09/16/23 14:32:00 EDT, [facility]/pharmacy #[id number], 168, cm, 07/23/23 15:05:00 EST, [...] 15 Unknown, 2 Refills, 11/07/22 0:09:00 EDT, [facility]/pharmacy #[id number], 175, cm, 10/09/22 16:51:00 EDT, Height, 93, kg, 01/28/22 14:55:00 EDT, Dry Weight Start Date: 11/07/22 Status: Ordered Pen [place], 31 G x 5 mm BD Ultra [...] Refills, Maintenance, 11/10/23 22:03:00 EDT, [facility], 168, cm, 10/27/23 15:34:00 EDT, Height, 93, [...] 524 weeks therapy with sofosbuvir/weight based ribavirin 73299 inferolateral stent bare metal circumflex 7DR Molddoverno [...] Member Role: Lifetime Consulting Physician Address: Address: [address] [place] [address] Dr [address] [facility] [place] [address]- Name: Kelly Butler NP Position: [facility] PCO Associate Professional Member Role: PCP Address: Address: [address] [place] [address]- Name: Kristin Mckenzie Position: [facility] Outreach Member Role: Lifetime Consulting Physician Name: Prieto Tobin RN Position: [facility] RN Member Role: Primary Care Nurse Name: Jonn Hui DO Position: [facility] Renal MD Member Role: Lifetime Consulting Physician Address: Address: [address] [place] [address] [address] [facility] [place], [place] [address] Name: Zafar CALVO, Luis Angel Rojas Position: [facility] RN Member Role: Primary Care Nurse Care Team Related Persons Name: CARLOS A BORDEN Address: [address] [place] [address] Name: LEVI BORDEN Address: [address] [place] [address]
--- OUTSIDE RECORDS SUMMARY | 2024-06-01 12:04 | XMS_ITS | Continuity of Care Document ---
Author Organization [facility] Nando Escobar Lazaro lt Address [address] [place] [address]- Care Team Providers Care Public Affairs Specialist Name Role Phone Aylin HICKMAN, Ben Willis Primary Care Physician [facility] Date(s): 06/07/21 - 06/14/21 JAEL Escobar Adult [address] [place] [address]- Encounter Diagnosis Medicare annual wellness visit, subsequent(Discharge Diagnosis) - 06/07/21 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) - 06/07/21 Insulin long-term use(Discharge Diagnosis) - 06/07/21 ASHD; [place] 2013/stent circumflex vessel cath;abdelrahman 2019(Discharge Diagnosis) - 06/07/21 GERD with esophagitis egd 2019(Discharge Diagnosis) - 06/07/21 Chronic back pain DJD(Discharge Diagnosis) - 06/07/21 Bipolar disorder(Discharge Diagnosis) - 06/07/21 CKD (chronic kidney disease) stage 3, GFR 30-59 ml/min(Discharge Diagnosis) - 06/07/21 Multiple lung nodules LDCT (Discharge Diagnosis) - 06/07/21 Tubular adenoma of colon colonoscopy (Discharge Diagnosis) - 06/07/21 LVH (left ventricular hypertrophy) echo(Discharge Diagnosis) - 06/07/21 Hypertension(Discharge Diagnosis) - 06/07/21 History of acute myocardial infarction of inferior wall 2013/stent(Discharge Diagnosis) - 06/07/21 Glomerulonephritis,mesangial proliferative/fibrillary(Discharge Diagnosis) - 06/07/21 History of alcoholism(Discharge Diagnosis) - 06/07/21 Hyperlipidemia(Discharge Diagnosis) - 06/07/21 Hepatitis C rx 2016(Discharge Diagnosis) - 06/07/21 Low serum vitamin D(Discharge Diagnosis) - 06/07/21 Attending Physician: Aylin HICKMAN, Ben Willis Allergies, Adverse Reactions, Alerts Substance Reaction Severity [...] tablet, 11 Refills, Maintenance, 06/26/20 12:19:00 EST, [facility], 175, cm, 06/25/20 16:11:00 EST, Height, 83.6, [...] Refills, Maintenance, 01/23/21 11:08:00 EDT, CR Capsule, [facility]/pharmacy #[id number], 175.3, cm, 01/21/21 12:58:00 EDT, Height, 83.6, kg, 04/23/20 17:46:00EDT, Dry Weight Start Date: 01/23/21 Stop Date: 01/18/22 Status: Ordered cholecalciferol 2000 intl units oral capsule 1 capsule = 2,000 International_Units, By Mouth, Daily, # 30 capsule, 5 Refills, Maintenance, 05/15/21 13:02:00 EST, Capsule, [facility]/pharmacy #[id number], 175.2, cm, 03/18/21 10:48:00 EDT, Height, 88.3, kg, 03/12/21 9:16:00 EDT, Dry Weight Start Date: 05/15/21 Status: Ordered cloNIDine 0.2 mg oral tablet 0.2 mg, 1, tablet, By Mouth, 2 times a day, # 60 tablet, Refills 5, Tot. Refills 5, Maintenance, 02/28/21 10:13:00 EDT, Route to Pharmacy Electronically, [facility]/pharmacy #[id number], 175.3, cm, 01/21/21 12:58:00 EDT, [...] capsule, 5 Refills, Maintenance, 06/05/21 15:57:00 EST, [facility]/pharmacy #[id number], 175.2, cm, 05/27/21 11:26:00 EST, Height, 88.3, kg, 03/12/21 9:16:00 EDT, Dry Weight Start Date: 06/05/21 Status: Ordered folic acid 1 mg oral tablet 1, tablet, By Mouth, Daily, # 30 tablet, Refills 5, Tot. Refills 0, Maintenance, 01/18/21 14:44:00 EDT, Route to Pharmacy Electronically, [facility] STORE 18768, 175, cm, 12/24/20 11:20:00 EDT, Height, 83.6, [...] tablet, 5 Refills, Maintenance, 06/05/21 15:57:00 EST, [facility]/pharmacy #[id number], 175.2, cm, 05/27/21 11:26:00 EST, Height, 88.3, kg, 03/12/21 9:16:00 EDT, Dry Weight Start Date: 06/05/21 Status: Ordered LaMICtal 100 mg oral tablet 100 mg, 1, tablet, By Mouth, 2 times a day, # 60 tablet, Refills 3, Tot. Refills 3, Maintenance, 01/21/19 11:25:36 EDT, Route to Pharmacy Electronically, [id number], [facility]/pharmacy #[id number] Start Date: 01/21/19 Stop Date: [...] A DAY, # 270 tablet, 0 Refills, [facility] 84[facility], 175.2, cm, 06/07/21 9:51:00 EST, Height, 88.3, kg, 03/12/21 9:16:00 EDT, Dry Weight Start Date: 06/14/21 Status: Ordered nicotine 2 mg oral transmucosal lozenge See Instructions, USE 1 LOZENGE UP TO EVERY 1 HOUR NEEDED FOR 10 DAYS, # 162 lozenge, 1 Refills,[facility], 10, USE 1 LOZENGE UP TO EVERY [...] SLIDING SCALES, # 15 Unknown, 2 Refills, [facility] 06[facility], 175.2, cm, 05/27/21 11:26:00 EST, Height, 88.3, kg, 03/12/21 9:16:00 EDT, Dry Weight Start Date: 06/04/21 Status: Ordered Pen [place], 31 G x 5 mm BD Ultra [...] 5 Refills, Maintenance, 06/10/21 12:32:00 EST, Capsule, [facility]/pharmacy #[id number], 175.2, cm, 06/07/21 9:51:00 EST, [...] 09/21/19 10:41:00 EDT, Route to Pharmacy Electronically, [facility]/pharmacy #[id number], 172, cm, 09/05/19 16:17:00 EST, [...] 524 weeks therapy with sofosbuvir/weight based ribavirin 93763 inferolateral stent bare metal circumflex 7DR Marissa morgan;Dr Schwartz 8hyperplatic polyp repeat screening in 2025 9repeat colonoscopy in 5 years Diagnosis Diagnosis Type Effective Dates Health Status Clinical Service Informant Medicare annual wellness visit, subsequent Discharge Diagnosis 06/07/21 Type 2 diabetes mellitus with diabetic nephropathy Discharge Diagnosis 06/07/21 Insulin long-term use Discharge Diagnosis 06/07/21 ASHD; [place] 2012/stent circumflex vessel cath;abdelrahman 2018 Discharge Diagnosis 06/07/21 Glomerulonephritis,m esangial proliferative/fibril shannan Discharge Diagnosis 06/07/21 History of acute myocardial infarction of inferior wall 2012/stent Discharge Diagnosis 06/07/21 CKD (chronic kidney disease) stage 3, GFR 30-59 ml/min Discharge Diagnosis 06/07/21 Tubular adenoma of colon colonoscopy Discharge Diagnosis 06/07/21 Multiple lung nodules LDCT Discharge Diagnosis 06/07/21 LVH (left ventricular hypertrophy) echo Discharge Diagnosis 06/07/21 Hypertension Discharge Diagnosis 06/07/21 GERD with esophagitis egd 2018 Discharge Diagnosis 06/07/21 Chronic back pain DJD Discharge Diagnosis 06/07/21 Bipolar disorder Discharge Diagnosis 06/07/21 History of alcoholism Discharge Diagnosis 06/07/21 Hyperlipidemia Discharge Diagnosis 06/07/21 Hepatitis C rx 2016 Discharge Diagnosis 06/07/21 Low serum vitamin D Discharge Diagnosis 06/07/21 Vital Signs Most recent to oldest [Reference Range]: 1 Height 175.2 cm (06/07/21 9:51 AM) Weight 89.7 kg (06/07/21 9:51 AM) Oxygen Saturation [94-100 %] 98 % (06/07/21 9:51 AM) Pulse Rate [55-90 bpm] 62 bpm (06/07/21 9:51 AM) Body Mass Index [18.5-24.99] 29.22 *H* (06/07/21 9:51 AM) Blood Pressure [90-138/55-84 mm Hg] 107/ 64mm Hg (06/07/21 9:51 AM) Respiratory Rate [16-30 br/min] 16 br/mi n (06/07/21 9:51 AM) Temperature [96.8-100.4 DegF] 97.6 DegF (06/07/21 9:51 AM) Blood pressure sites Arm, left (06/07/21 9:51 AM) Temperature Route Oral (06/07/21 9:51 AM) Weight Obtained Via Standing scale (06/07/21 9:51 AM) Social History Social History Type Response Smoking Status Former smoker, quit more than 30 days ago; Interested in cessation: No; Other: quit; Tobacco use times per day: prio 1/2-1 ppd; Total pack years: 38; Started at age: 12; Stopped at age: 63; entered on: 07/20/20 Sex
--- OUTSIDE RECORDS SUMMARY | 2024-06-01 12:04 | XMS_ITS | Continuity of Care Document ---
Author Organization [facility] Shawn Lazaro lt Address [address] [place] [address]- Care Team Providers Care Community Service Patrol Officer Name Role Phone Aylin HICKMAN, Ben Willis Primary Care Physician [facility] Date[facility]): 02[facility]20 - 03/02/20 [facility] Shawn Adult [address] [place] [address]- [facility] Allergies, Adverse Reactions, Alerts Substance Reaction [...] 10:48:07 EST, Aerosol, Route to Pharmacy Electronically, [id number], [facility]/pharmacy #[id number], 180, cm, 06/17/19 10:36:11 EST, Height Start Date: 06/17/19 Status: Ordered aspirin 81 mg oral tablet 1 tablet = 81 mg, By Mouth, Daily, # 30 tablet, 11 Refills, Maintenance, 09/03/19 14:22:00 EST, Tablet, [facility]/pharmacy #[id number], 180, cm, 08/01/19 [...] Refills, Maintenance, 01/02/20 15:47:00 EDT, CR Capsule, [facility]/pharmacy #0843, 172, cm, 12/14/19 8:02:00 EDT, Height, 97.8, kg, 08/11/19 5:24:00 EST, Dry Weight Start Date: 01/02/20 Stop Date: 12/27/20 Status: Ordered cholecalciferol 2000 intl units oral capsule 1 capsule = 2,000 International_Units, By Mouth, Daily, # 30 capsule, 5 Refills, Maintenance, 11/02/19 10:15:00 EDT, Capsule, [facility]/pharmacy #[id number], 172, cm, 09/05/19 16:17:00 EST, Height, 97.8, kg, 08/11/19 5:24:00 EST, Dry Weight Start Date: 11/02/19 Status: Ordered cloNIDine 0.2 mg oral tablet 0.2 mg, 1, tablet, By Mouth, 2 times a day, # 60 tablet, Refills 1, Tot. Refills 1, Maintenance, 02/15/20 13:54:00 EDT, Route to Pharmacy Electronically, [facility]/pharmacy #[id number], 172, cm, 12/14/19 8:02:00EDT, Height, 97.8, kg, 08/11/19 5:24:00 EST, Dry We... Start Date: 02/15/20 Status: Ordered Colace sodium 100 mg oral capsule 100 mg, 1, capsule, By Mouth, 2 times a day, PRN, # 60 capsule, Refills 5, Tot. Refills 5, Maintenance, for constipation, 02/27/20 15:25:00 EDT, Route to Pharmacy Electronically, [facility]/pharmacy #[id number], 172, cm, 12/14/19 8:02:00 EDT, Height, 97.8, kg, 02/... Start Date: 02/27/20 Status: Ordered Crestor 20 mg oral tablet 1 tablet = 20 mg, By Mouth, Daily, # 90 tablet, 3 Refills, Maintenance, 01/02/20 15:46:00 EDT, Tablet, [facility]/pharmacy #0843, 172, cm, 12/14/19 8:02:00 EDT, Height, 97.8, kg, 08/11/19 5:24:00 EST, Dry Weight Start Date: 01/02/20 Status: Ordered Daily Simone oral tablet 1 tablet, By Mouth, Daily, # 30 tablet, 5 Refills, Maintenance, 03/01/20 14:48:00 EDT, Tablet, [facility]/pharmacy #0843, 1 tablet By Mouth Daily,x30 days, 172, cm, 12/14/19 8:02:00 EDT, Height, 97.8, kg, 08/11/19 5:24:00 EST, Dry Weight Start Date: 03/01/20 Stop Date: 08/28/20 Status: Ordered folic acid 1 mg oral tablet 1 mg, 1, tablet, By Mouth, Daily, # 30 tablet, Refills 5, Tot. Refills 5, Maintenance, 12/29/19 11:13:00 EDT, Route to Pharmacy Electronically, [facility]/pharmacy #[id number], 172, cm, 12/14/19 [...] tablet, 5 Refills, Maintenance, 02/27/20 15:23:00 EDT, [facility]/pharmacy #[id number], 172, cm, 12/14/19 8:02:00 EDT, Height, 97.8, kg, 08/11/19 5:24:00 EST, Dry Weight Start Date: 02/27/20 Status: Ordered LaMICtal 100 mg oral tablet 100 mg, 1, tablet, By Mouth, 2 times a day, # 60 tablet, Refills 3, Tot. Refills 3, Maintenance, 01/21/19 11:25:36 EDT, Route to Pharmacy Electronically, [id number], [facility]/pharmacy #[id number] Start Date: 01/21/19 [...] 02/28/20 8:20:00 EDT, Route to Pharmacy Electronically, [facility]/pharmacy #[id number], 172, cm, 12/14/19 8:02:00 EDT, Height, 97.8, kg, 08/11/19 5:24:00 EST, Dry Weight Start Date: 02/28/20 Status: Ordered metoprolol 50 mg oral tablet 75 mg, 1.5, tablet, By Mouth, 2 times a day, stop metoprolol 50 mg twice daily, # 180 tablet, Refills 2, Tot. Refills 2, Maintenance, 01/02/20 15:45:00 EDT, Route to Pharmacy Electronically, [facility]/pharmacy #[id number], 172, cm, 12/14/19 8:02:00 EDT, Height, 9... Start Date: 01/02/20 Status: Ordered nicotine 4 mg oral transmucosal lozenge See Instructions, suck, up to q1 hrs 10 daily, # 144 lozenge, 1 Refills, Maintenance, 01/23/20 11:18:00 EDT, [facility]/pharmacy #0843, suck, up to q1 hrs 10 daily, 172, cm, 12/14/19 8:02:00 EDT, Height, 97.8, kg, 08/11/19 5:24:00 EST, Dry Weight Start Date: 01/23/20 Status: Ordered nicotine 4 mg oral transmucosal lozenge 1 lozenge = 4 mg, By Mouth, Every hour, # 132 lozenge, 1 Refills, Maintenance, 11/29/19 8:13:00 EDT, [facility]/pharmacy #0843, 1 lozenge By [...] 5 Refills, Soft Stop, 02/01/20 9:13:00 EDT, [facility]/pharmacy #[id number], 172, cm, 12/14/19 8:02:00 EDT, Height, 97.8, kg, 08/11/19 5:24:00 EST, Dry Weight Start Date: 02/01/20 Status: Ordered Ozempic (0.25 mg or 0.5 mg dose) 2 mg/1.5 mL subcutaneous solution See Instructions, INJECT 0.25 MG SUBCUTANEOUSLY WEEKLY, # 1.5 Unknown, 0 Refills, Maintenance, [facility], 172, cm, 12/14/19 8:02:00 EDT, Height, 97.8, kg, 08/11/19 5:24:00 EST, Dry Weight Start Date: 02/09/20 Status: Ordered Pen [place], 31 G x 5 mm BD Ultra [...] Route to Pharmacy Electronically, [facility]/pharmacy #[id number], 172, cm, 09/05/19 [...] EST, Tablet, this was previously sent to [facility] Start Date: 05/17/19 Stop Date: 05/11/20 Status: Ordered Tresiba FlexTouch 200 units/mL subcutaneous solution = 90 units, Subcutaneous Infusion, Daily, at bedtime, # 15 mL, 5 Refills, Maintenance, 08/04/19 13:13:00 EST, [facility]/pharmacy #[id number], 180, cm, 08/01/19 10:43:00 EST, Height Start Date: 08/04/19 Status: Ordered Problem List Condition Effective Dates Status Health Status Inform ant Acute pancreatitis(Confirmed) 07/16/16 Active Adenomatous colon polyp(Confirmed) Active Bipolar disorder(Confirmed) Active Cervical spondylosis(Confirmed) Active Chronic back pain DJD(Confirmed) Active Glomerulonephritis,mesangial proliferative/fibrillary(Confirmed) 1, 2 Active Chronic renal impairment, st age 3 (moderate)(Confirmed) Active ASHD; [place] 2012/stent circumfl ex vessel cath;abdelrahman 2018(Confirmed) 3 Active Epididymal cyst rt(Confirmed) 04/18/19 Active Low serum vitamin D(Confirmed) Active Insulin long-term use(Confirmed) Active Ex-smoker quit 2018/[facility] t enrolled(Confirmed) Active Fibrillary glomerulonephritis(Confirmed) 4 [...] 524 weeks therapy with sofosbuvir/weight based ribavirin 30381 inferolateral stent bare metal circumflex 7DR Marissa [...]
--- OUTSIDE RECORDS SUMMARY | 2024-06-01 12:04 | XMS_ITS | Continuity of Care Document ---
Author Organization [facility] Lazaro Address [address] [place] [address]- Care Team Providers Care Card Boxer Name Role Phone Aylin HICKMAN, Ben Willis Primary Care Physician [facility] Date[facility]s): 07/20/20 - 08/19/20 [facility] Adult [address] [place] [address]- Attending Physician: Admtr, Ar8 Admitting Physician: Admtr, [...] 10:48:07 EST, Aerosol, Route to Pharmacy Electronically, [id number], [facility]/pharmacy #[id number], 180, cm, 06/17/19 10:36:11 EST, Height Start Date: 06/17/19 Status: Ordered aspirin 81 mg oral delayed release tablet 1 tablet, By Mouth, Daily, # 30 tablet, 11 Refills, Maintenance, 06/26/20 12:19:00 EST, [facility], 175, cm, 06/25/20 16:11:00 EST, Height, 83.6, [...] Refills, Maintenance, 01/02/20 15:47:00 EDT, CR Capsule, [facility]/pharmacy #[id number], 172, cm, 12/14/19 8:02:00 EDT, Height, 97.8, kg, 08/11/19 5:24:00 EST, Dry Weight Start Date: 01/02/20 Stop Date: 12/27/20 Status: Ordered cholecalciferol 2000 intl units oral capsule 1 capsule = 2,000 International_Units, By Mouth, Daily, # 30 capsule, 5 Refills, Maintenance, 05/25/20 11:53:00 EST, Capsule, [facility]/pharmacy #[id number], 175, cm, 05/24/20 12:46:00 EST, Height, 83.6, kg, 04/23/20 17:46:00 EDT, Dry Weight Start Date: 05/25/20 Status: Ordered cloNIDine 0.2 mg oral tablet 0.2 mg, 1, tablet, By Mouth, 2 times a day, # 60 tablet, Refills 2, Tot. Refills 2, Maintenance, 06/22/20 10:52:00 EST, Route to Pharmacy Electronically, [facility]/pharmacy #[id number], 175, cm, 05/24/20 12:46:00 EST, Height, 83.6, kg, 04/23/20 17:46:00 EDT, Dry... Start Date: 06/22/20 Status: Ordered Colace sodium 100 mg oral capsule 100 mg, 1, capsule, By Mouth, 2 times a day, PRN, # 60 capsule, Refills 5, Tot. Refills 5, Maintenance, for constipation, 02/27/20 15:25:00 EDT, Route to Pharmacy Electronically, [facility]/pharmacy #[id number], 172, cm, 12/14/19 8:02:00 EDT, Height, 97.8, kg, 02/... Start Date: 02/27/20 Status: Ordered Crestor 20 mg oral tablet 1 tablet = 20 mg, By Mouth, Daily, # 90 tablet, 3 Refills, Maintenance, 01/02/20 15:46:00 EDT, Tablet, [facility]/pharmacy #[id number], 172, cm, 12/14/19 8:02:00 EDT, Height, 97.8, kg, 08/11/19 5:24:00 EST, Dry Weight Start Date: 01/02/20 Status: Ordered Daily Simone oral tablet 1 tablet, By Mouth, Daily, # 30 tablet, 5 Refills, Maintenance, 03/01/20 14:48:00 EDT, Tablet, [facility]/pharmacy #[id number], 1 tablet By Mouth Daily,x30 days, 172, cm, 12/14/19 8:02:00 EDT, Height, 97.8, kg, 08/11/19 5:24:00 EST, Dry Weight Start Date: 03/01/20 Stop Date: 08/28/20 Status: Ordered folic acid 1 mg oral tablet 1 mg, 1, tablet, By Mouth, Daily, # 30 tablet, Refills 5, Tot. Refills 5, Maintenance, 07/04/20 13:24:00 EST, Route to Pharmacy Electronically, [facility]/pharmacy #[id number], 175, cm, 06/25/20 16:11:00 [...] tablet, 5 Refills, Maintenance, 02/27/20 15:23:00 EDT, [facility]/pharmacy #[id number], 172, cm, 12/14/19 8:02:00 EDT, Height, 97.8, kg, 08/11/19 5:24:00 EST, Dry Weight Start Date: 02/27/20 Status: Ordered Golytely - oral powder for reconstitution 240 mL, By Mouth, Daily, bowel instruction, # 4,000 mL, 0 Refills, Maintenance, 06/21/20 16:44:00 EST, REC Powder, [facility]/pharmacy #[id number], Partial fill upon patient request if the prescription is for a schedule II opioid drug., 240 mL By Mouth Daily,Instr... Start Date: 06/21/20 Status: Ordered LaMICtal 100 mg oral tablet 100 mg, 1, tablet, By Mouth, 2 times a day, # 60 tablet, Refills 3, Tot. Refills 3, Maintenance, 01/21/19 11:25:36 EDT, Route to Pharmacy Electronically, [id number], [facility]/pharmacy #[id number] Start Date: [...] 01/02/20 15:45:00 EDT, Route to Pharmacy Electronically, [facility]/pharmacy #[id number], 172, cm, 12/14/19 8:02:00 EDT, Height, 9... Start Date: 01/02/20 Status: Ordered nicotine 2 mg oral transmucosal lozenge See Instructions, suck, up to q1 hrs 10 daily, # 144 lozenge, 1 Refills, Maintenance, 03/21/20 11:13:00 EDT, [facility]/pharmacy #[id number], suck, up to q1 hrs 10 daily, 172, cm, 03/21/20 11:04:00 EDT, Height, 97.8, kg, 08/11/19 5:24:00 EST, Dry Weight Start Date: 03/21/20 Status: Ordered nicotine 4 mg oral transmucosal lozenge 1 lozenge = 4 mg, By Mouth, Every hour, dispense 2 boxes of 81 count, # 189 lozenge, 1 Refills, Maintenance, 07/12/20 15:43:00 EST, [facility]/pharmacy #[id number], 1 lozenge By [...] 2 Refills, Soft Stop, 06/01/20 13:51:00 EST, [facility]/pharmacy #[id number], 175, cm, 05/24/20 12:46:00 [...] 9:13:... Start Date: 02/01/20 Status: Ordered Pen [place], 31 G x 5 mm BD Ultra [...] Tablet, this was previously sent to [facility] pharmacy Start Date: 05/17/19 Stop Date: 05/11/20 Status: Ordered Tresiba FlexTouch 200 units/mL subcutaneous solution = 70 units, Subcutaneous Infusion, Daily, at bedtime, # 15 mL, 5 Refills, Maintenance, 08/04/19 13:13:00 EST, [facility]/pharmacy #[id number], 180, cm, 08/01/19 [...] 524 weeks therapy with sofosbuvir/weight based ribavirin 86287 inferolateral stent bare metal circumflex 7DR Molddoverno [...]
--- OUTSIDE RECORDS SUMMARY | 2024-06-01 12:04 | XMS_ITS | Continuity of Care Document ---
Author Organization [facility] Address [address] [address]- Care Team Providers Care Clinical Laboratory Director Name Role Phone Carrie Kelly RIVERA Primary Care Physician [phone] Encounter [facility] Date(s): 02/21/22 - 03/23/22 [facility] [address] [address] Allergies, Adverse Reactions, Alerts Substance Reaction Severity [...] Refills, Maintenance, 09/30/21 12:28:00 EDT, [facility]/pharmacy#[id number], 175.2, cm, 09/20/21 8:36:00 EDT, [...] Refills, Maintenance, 01/18/22 11:08:00 EDT, CR Capsule, [facility]/pharmacy #[id number], 175.2, cm, 11/15/21 11:18:00 EDT, Height, 88.3, kg, 03/12/21 9:16:00 EDT, Dry Weight Start Date: 01/18/22 Stop Date: 07/17/22 Status: Ordered Daily Simone oral tablet 1 tablet, By Mouth, Daily, # 30 tablet, 5 Refills, Maintenance, 02/11/22 11:48:00 EDT, Tablet, [facility]/pharmacy #[id number], 1 tablet By Mouth Daily,x30 days, 175, cm, 01/29/22 15:12:00 EDT, Height, 93, kg, 01/28/22 14:55:00 EDT, Dry Weight Start Date: 02/11/22 Stop Date: 08/10/22 Status: Ordered docusate sodium 100 mg oral capsule 1 capsule, By Mouth, 2 times a day, PRN NEEDED FOR CONSTIPATION, # 60 capsule, 5 Refills, Maintenance, 06/05/21 15:57:00 EST, [facility]/pharmacy #[id number], 175.2, cm, 05/27/21 11:26:00 EST, Height, 88.3, kg, 03/12/21 9:16:00 EDT, Dry Weight Start Date: 06/05/21 Status: Ordered folic acid 1 mg oral tablet 1, tablet, By Mouth, Daily, # 30 tablet, Refills 5, Tot. Refills 5, Maintenance, 07/25/21 15:59:00 EST, Route to Pharmacy Electronically, [facility]/pharmacy #[id number], 175.2, cm, 06/07/21 9:51:00 [...] 01/21/19 11:25:36 EDT, Route to Pharmacy Electronically, [id number], [facility]/pharmacy #[id number] Start Date: 01/21/19 Stop Date: 05/21/19 Status: Ordered lisinopril 40 mg oral tablet 1 tablet = 40 mg, By Mouth, Daily, # 30 tablet, 3 Refills, Maintenance, 09/17/21 10:50:00 EDT, Tablet, [facility]/pharmacy #[id number], Partial fill upon patient request if the prescription is for a schedule II opioid drug., 175.2, cm, 07/31/21 11:20:00 EST, Heigh... Start Date: 09/17/21 Status: Ordered Metoprolol Tartrate 50 mg oral tablet 1.5 tablet, By Mouth, 2 times a day, # 270 tablet, 0 Refills, 03/16/22 12:48:00 EDT, [facility]/pharmacy #[id number], 175, cm, 02/14/22 10:10:00 EDT, Height, 93, kg, 01/28/22 14:55:00 EDT, Dry Weight Start Date: 03/16/22 Status: Ordered nicotine 14 mg/24 hr transdermal film, extended release 1 patch, Topically, Daily, for 30 days, # 30 patch, 1 Refills, Acute 05/13/22 12:16:00 EST, 03/14/22 12:16:00 EDT, Patch, [facility]/pharmacy #[id number], 1 patch Topically Daily,x30 [...] Refills, Maintenance, 12/31/21 17:21:00 EDT, [facility]/pharmacy #[id number], 175.2, cm, 12/18/21 14:10:00 EDT, Height... Start Date: 12/31/21 Status: Ordered NovoLOG FlexPen 100 units/mL injectable solution See Instructions, INJECT 0-18 UNITS SUBCUTANEOUSLY WITH MEALS FOR SLIDING SCALES, # 15 Unknown, 2 Refills, [facility], 175.2, cm, 05/27/21 11:26:00 EST, Height, 88.3, kg, 03/12/21 9:16:00 EDT, Dry Weight Start Date: 06/04/21 Status: Ordered Pen [place], 31 G x 5 mm BD Ultra [...] capsule, 5 Refills, Maintenance, 11/19/21 11:25:00EDT, Capsule, [facility]/pharmacy #[id number], 175.2, cm, 11/15/21 11:18:00 EDT, Height, 88.3, kg, 03/12/21 9:16:00 EDT, Dry Weight Start Date: 11/19/21 Status: Ordered rosuvastatin 20 mg oral tablet 1 tablet, By Mouth, Daily, # 90 tablet, 1 Refills, [facility] STORE 00632, 175, cm, 01/29/22 15:12:00 EDT,Height, 93, kg, 01/28/22 14:55:00 EDT, Dry Weight Start Date: 01/30/22 Status: Ordered SEROquel 100 mg oral tablet 100 mg, 1, tablet, By Mouth, 2 times a day, PRN, # 1 tablet, Refills 2, Tot. Refills 2, Maintenance, Anxiety, 09/21/19 10:41:00 EDT, Route to Pharmacy Electronically, [facility]/pharmacy #[id number], 172, cm, 09/05/19 16:17:00 [...] 3 Refills, Maintenance, 12/18/21 14:33:00 EDT, Suspension, [facility]/pharmacy #[id number], 1 drops Eyes, Both [...] # 30 capsule, 5 Refills, [facility], 175.2, cm, 11/15/21 11:18:00 EDT, Height, 88.3, [...] 524 weeks therapy with sofosbuvir/weight based ribavirin 66079 inferolateral stent bare metal circumflex 7DR Molddoverno [...] Team Personnel Name: Kelly Butler NP Address: [address] [place] [phone]-
--- OUTSIDE RECORDS SUMMARY | 2024-06-01 12:04 | XMS_ITS | Continuity of Care Document ---
Author Organization [facility] ter Address [address] [place] [address]- Care Team Providers Care [employer] Consultant Name Role Phone Carrie REACH TRUCK OPERATOR, Kelly Lopez Primary Care Physician Encounter [facility] Date(s): 10/14/22 - 11/20/[address] [address] Attending Physician: Kaden Aguayo MD [...] influenza virus vaccine, inactivated 04/16/10 Give n [id number] 12y+ bivalent booster vax 05/17/22 Recorded SARS-CoV-2 [...] tablet, 3 Refills, Maintenance, 09/30/21 12:28:00 EDT, [facility]/pharmacy#[id number], 175.2, cm, 09/20/21 8:36:00 EDT, Height, 88.3, [...] 5 Refills, Maintenance, 08/15/22 10:27:00 EST, Tablet, [facility]/pharmacy #[id number], 1 tablet By Mouth Daily,x30 days, [...] capsule, 0 Refills, Maintenance, 10/24/22 10:10:00 EDT, [facility]/pharmacy #[id number], 175, cm, 10/09/22 16:51:00 EDT, Height, 93, kg, 01/28/22 14:55:00 EDT, Dry Weight Start Date: 10/24/22 Status: Ordered docusate sodium 100 mg oral capsule 1 capsule, By Mouth, 2 times a day, PRN NEEDED FOR CONSTIPATION, # 60 capsule, 5 Refills, Maintenance, 07/18/22 11:59:00 EST, [facility]/pharmacy #[id number], 175, cm, 07/17/22 10:33:00 EST, Height, 93, kg, 01/28/22 14:55:00 EDT, Dry Weight Start Date: 07/18/22 Status: Ordered Flonase 50 mcg/inh nasal spray 1 sprays, Nares, Both, 2 times a day, # 16 Gm, 0 Refills, Maintenance, 09/05/22 9:15:00 EST, [place],[facility]/pharmacy #[id number], Partial fill upon patient request if the prescription is for a schedule II opioid drug., 1 sprays Nares, Both 2 times a day, 175, c... Start Date: 09/05/22 Status: Ordered folic acid 1 mg oral tablet 1, tablet, By Mouth, Daily, # 30 tablet, Refills 5, Tot. Refills 5, Maintenance, 08/15/22 10:27:00 EST, Route to Pharmacy Electronically, [facility]/pharmacy #[id number], 175, cm, 07/17/22 10:33:00 EST, Height, [...] 01/21/19 11:25:36 EDT, Route to Pharmacy Electronically, [id number], [facility]/pharmacy #[id number] Start Date: 01/21/19 Stop Date: 05/21/19 Status: Ordered lisinopril 40 mg oral tablet 1 tablet, By Mouth, Daily, # 90 tablet, 0 Refills, Maintenance, 10/24/22 10:11:00 EDT, [facility]/pharmacy#[id number], 175, cm, 10/09/22 16:51:00 EDT, Height, 93, kg, 01/28/22 14:55:00 EDT, Dry Weight Start Date: 10/24/22 Status: Ordered Metoprolol Tartrate 50 mg oral tablet 1.5 tablet, By Mouth, 2 times a day, # 270 tablet, 1 Refills, Maintenance, 09/01/22 13:28:00 EST, [facility] 820[facility], 175, cm, 07/17/22 10:33:00 EST, Height, 93, kg, 01/28/22 14:55:00 EDT, Dry Weight Start Date: 09/01/22 Status: Ordered Nicotine 7 mg/24 hour patch 1 patch, Topically, Daily, # 30 patch, 0 Refills, Maintenance, 11/17/22 11:45:00 EDT, Patch, [facility]/pharmacy #[id number], Partial fill upon patient request if [...] 15 Unknown, 2 Refills, 11/07/22 0:09:00 EDT, [facility]/pharmacy #[id number], 175, cm, 10/09/22 16:51:00 EDT, Height, 93, kg, 01/28/22 14:55:00 EDT, Dry Weight Start Date: 11/07/22 Status: Ordered Pen [place], 31 G x 5 mm BD Ultra [...] capsule, 2 Refills, Maintenance, 08/07/22 12:55:00EST, Capsule, [facility]/pharmacy #[id number], 175, cm, 07/17/22 10:33:00 EST, Height, 93, kg, 01/28/22 14:55:00EDT, Dry Weight Start Date: 08/07/22 Status: Ordered rosuvastatin 20 mg oral tablet 1 tablet, By Mouth, Daily, # 90 tablet, 1 Refills, Maintenance, 05/21/22 13:33:00 EST, [facility], 175, cm, 05/09/22 11:08:00 EDT, Height, 93, kg, 01/28/22 14:55:00 EDT, Dry Weight Start Date: 05/21/22 Status: Ordered Senna 8.6 mg oral tablet 1 or 2 tablets, By Mouth, Daily at bedtime, PRN, # 60 tablet, Refills 5, Tot. Refills 5, Maintenance, Constipation, 11/03/22 15:04:00 EDT, Route to Pharmacy Electronically, [facility]/pharmacy #[id number] Tablet,Partial fill upon patient request if the prescripti... Start Date: 11/03/22 Status: Ordered SEROquel 100 mg oral tablet 100 mg, 1, tablet, By Mouth, 2 times a day, PRN, # 1 tablet, Refills 2, Tot. Refills 2, Maintenance, Anxiety, 09/21/19 10:41:00 EDT, Route to Pharmacy Electronically, [facility]/pharmacy #[id number], 172, cm, 09/05/19 16:17:00 EST, Height, [...] 9 Unknown, 1 Refills, 01/21/22 15:39:00 EDT, [facility]/pharmacy #[id number], 175.2, cm, 12/18/21 14:10:00 EDT, Height... Start Date: 01/21/22 Status: Ordered Trulicity Pen 0.75 mg/0.5 mL subcutaneous solution 0.5 mL = 0.75 mg, Subcutaneous Injection, Every week, # 2.5 mL, 2 Refills, Maintenance, 04/08/22 9:12:00 EDT, Solution, [facility]/pharmacy #[id number], Partial fill upon patient request if [...] 4, GFR 15-29 ml/min Confirmed Active ASHD; [place] 2012/stent circumflex vessel cath;abdelrahman 2018 3 Confirmed [...] mild to moderate. 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 2013/[place] 4secondary to hep C 524 weeks therapy with sofosbuvir/weight based ribavirin 52353 inferolateral stent bare metal circumflex 7DR Molddoverno [...] Team Personnel Name: Jeffrey Mccoy MD Position: [facility] Renal MD Member Role: Lifetime Consulting Physician Address: Address: [address] [place] [address] [facility] [place] [address]- Name: Kelly Butler NP Position: [facility] PCO Associate Professional Member Role: PCP Address: Address: [address] [place] [id number]- Name: Kristin Mckenzie Position: [facility] Outreach Member Role: Lifetime Consulting Physician Name: Prieto Tobin RN Position: [facility] RN Member Role: Primary Care Nurse Name: Jonn Hui DO Position: [facility] Renal MD Member Role: Lifetime Consulting Physician Address: Address: [address] [place], [place] [address] [place] [place] [address] Name: Luis Angel Stephen RN Position: [facility] RN Member Role: Primary Care Nurse Name: Tamie Baird RN Position: [facility] RN Member Role: Primary Care Nurse Care Team Related Persons Name: CARLOS A BORDEN Address: [address] [place] [address] Name: LEVI BORDEN Address: home [address] [place] [address]
--- OUTSIDE RECORDS SUMMARY | 2024-06-01 12:04 | XMS_ITS | Continuity of Care Document ---
Author Organization [facility] Nando Esc[facility] Lazaro lt Address [address] [place] [address]- Care Team Providers Care Coding Support Specialist Name Role Phone Carrie SIGNING TEACHERKelly Primary Care Physician [facility]): 08/06/22 - 09/05/22 [facility] Adult [address] [place] [address]- Allergies, Adverse Reactions, Alerts Substance Reaction Severity [...] influenza virus vaccine, inactivated 04/16/10 Give n [id number] 12y+ bivalent booster vax 05/17/22 Recorded SARS-CoV-2 [...] 0 Refills, Maintenance, 09/05/22 9:14:00 EST, Tablet, [facility]/pharmacy #[id number], Partial fill upon patient request if the prescription is for a schedule II opioid drug.... Start Date: 09/05/22 Status: Ordered Blood Pressure Monitor See Instructions, # 1 each, Maintenance, dx: hypertension I10, 07/20/20 10:41:00 EST, Supply Start Date: 07/20/20 Status: Ordered Daily Simone oral tablet 1 tablet, By Mouth, Daily, # 30 tablet, 5 Refills, Maintenance, 08/15/22 10:27:00 EST, Tablet, [facility]/pharmacy #[id number], 1 tablet By Mouth Daily,x30 days, [...] Refills, Maintenance, 05/21/22 13:33:00 EST, [facility], 175, cm, 05/09/22 11:08:00 EDT, Height, 93, kg, 01/28/22 14:55:00 EDT, Dry Weight Start Date: 05/21/22 Status: Ordered docusate sodium 100 mg oral capsule 1 capsule, By Mouth, 2 times a day, PRN NEEDED FOR CONSTIPATION, # 60 capsule, 5 Refills, Maintenance, 07/18/22 11:59:00 EST, [facility]/pharmacy #[id number], 175, cm, 07/17/22 10:33:00 EST, Height, 93, kg, 01/28/22 14:55:00 EDT, Dry Weight Start Date: 07/18/22 Status: Ordered Flonase 50 mcg/inh nasal spray 1 sprays, Nares, Both, 2 times a day, # 16 Gm, 0 Refills, Maintenance, 09/05/22 9:15:00 EST, [place],[facility]/pharmacy #[id number], Partial fill upon patient request if the prescription is for a schedule II opioid drug., 1 sprays Nares, Both 2 times a day, 175, c... Start Date: 09/05/22 Status: Ordered folic acid 1 mg oral tablet 1, tablet, By Mouth, Daily, # 30 tablet, Refills 5, Tot. Refills 5, Maintenance, 08/15/22 10:27:00 EST, Route to Pharmacy Electronically, [facility]/pharmacy #[id number], 175, cm, 07/17/22 10:33:00 EST, Height, [...] if needed,Compound, 175.2, cm, 07/31/21 11:20:00 EST, Hemiladys... Start Date: 08/29/21 Status: Ordered LaMICtal 100 mg oral tablet 100 mg, 1, tablet, By Mouth, 2 times a day, # 60 tablet, Refills 3, Tot. Refills 3, Maintenance, 01/21/19 11:25:36 EDT, Route to Pharmacy Electronically, [id number], [facility]/pharmacy #[id number] Start Date: 01/21/19 Stop Date: 05/21/19 Status: Ordered lisinopril 40 mg oral tablet 1 tablet, By Mouth, Daily, # 90 tablet, 1 Refills, Maintenance, 05/07/22 14:29:00 EDT, [facility], 175, cm, 04/08/22 8:34:00 EDT, Height, 93, kg, 01/28/22 14:55:00 EDT, Dry Weight Start Date: 05/07/22 Status: Ordered Metoprolol Tartrate 50 mg oral tablet 1.5 tablet, By Mouth, 2 times a day, # 270 tablet, 1 Refills, Maintenance, 09/01/22 13:28:00 EST, [facility], 175, cm, 07/17/22 10:33:00 EST, Height, 93, kg, 01/28/22 14:55:00 EDT, Dry Weight Start Date: 09/01/22 Status: Ordered Nicotine 7 mg/24 hour patch 1 patch, Topically, Daily, # 30 patch, 0 Refills, Acute 09/26/22 8:00:00 EDT, 08/29/22 16:51:00 EST, Patch, [facility]/pharmacy #[id number], Partial fill upon patient request if [...] tablet, 0 Refills, Maintenance, 12/31/21 17:21:00 EDT, [facility]/pharmacy #[id number], 175.2, cm, 12/18/21 14:10:00 EDT, Height... Start Date: 12/31/21 Status: Ordered NovoLOG FlexPen 100 units/mL injectable solution See Instructions, INJECT 0-18 UNITS SUBCUTANEOUSLY WITH MEALS FOR SLIDING SCALES, # 15 Unknown, 2 Refills, [facility], 175.2, cm, 05/27/21 11:26:00 EST, Height, 88.3, kg, 03/12/21 9:16:00 EDT, Dry Weight Start Date: 06/04/21 Status: Ordered Pen [place], 31 G x 5 mm BD [...] capsule, 2 Refills, Maintenance, 08/07/22 12:55:00EST, Capsule, [facility]/pharmacy #[id number], 175, cm, 07/17/22 10:33:00 EST, Height, 93, kg, 01/28/22 14:55:00EDT, Dry Weight Start Date: 08/07/22 Status: Ordered rosuvastatin 20 mg oral tablet 1 tablet, By Mouth, Daily, # 90 tablet, 1 Refills, Maintenance, 05/21/22 13:33:00 EST, [facility] ST[facility], 175, cm, 05/09/22 11:08:00 EDT, Height, 93, kg, 01/28/22 14:55:00 EDT, Dry Weight Start Date: 05/21/22 Status: Ordered SEROquel 100 mg oral tablet 100 mg, 1, tablet, By Mouth, 2 times a day, PRN, # 1 tablet, Refills 2, Tot. Refills 2, Maintenance, Anxiety, 09/21/19 10:41:00 EDT, Route to Pharmacy Electronically, [facility]/pharmacy #[id number], 172, cm, 09/05/19 16:17:00 EST, Height, [...] 9 Unknown, 1 Refills, 01/21/22 15:39:00 EDT, [facility]/pharmacy #[id number], 175.2, cm, 12/18/21 14:10:00 EDT, Height... Start Date: 01/21/22 Status: Ordered Trulicity Pen 0.75 mg/0.5 mL subcutaneous solution 0.5 mL = 0.75 mg, Subcutaneous Injection, Every week, # 2.5 mL, 2 Refills, Maintenance, 04/08/22 9:12:00 EDT, Solution, [facility]/pharmacy #[id number], Partial fill upon patient request if the prescription is for a schedule II opioid drug., 175, cm, 04/08/22 8:34... Start Date: 04/08/22 Status: Ordered Vitamin D3 2000 intl units oral capsule 1 capsule, By Mouth, Daily, # 30 capsule, 5 Refills, 05/21/22 10:19:00 EST, [facility]/pharmacy #[id number], 175, cm, 05/09/22 11:08:00 EDT, Height, [...] Active ASHD; [place] 2012/stent circumflex vessel cath;abdelrahman 2019 3 Confirmed Active Epididymal cyst rt Confirmed [...] mild to moderate. 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 524 weeks therapy with sofosbuvir/weight based ribavirin 26683 inferolateral stent bare metal circumflex 7DR Marissa [...] Team Personnel Name: Jeffrey Mccoy MD Position: [facility] Renal MD Member Role: Lifetime Consulting Physician Address: Address: [address] [place] [address] [facility] [address] Name: Kelly Butler NP Position: [facility] PCO Associate Professional Member Role: PCP Address: Address: [address] [facility] [address]- [place] Name: Kristin Mckenzie Position: [facility] Outreach Member Role: Lifetime Consulting Physician Name: Prieto Tobin RN Position: [facility] RN Member Role: Primary Care Nurse Name: Jonn Hui DO Position: [facility] Renal MD Member Role: Lifetime Consulting Physician Address: Address: [address] [facility] [place] [address]- Name: Zafar CALVO, Luis Angel Rojas Position: [facility] RN Member Role: Primary Care Nurse Name: Tamie Baird RN Position: [facility] RN Member Role: Primary Care Nurse Care Team Related Persons Name: CARLOS A BORDEN Address: home [address] [place] [address] Name: LEVI BORDEN Address: home [address] [place] [address]
--- OUTSIDE RECORDS SUMMARY | 2024-06-01 12:05 | XMS_ITS | Continuity of Care Document ---
Author Organization [facility] Shawn Lazaro lt Address [address] [place] [address]- Care Team Providers Care Environmental Compliance Inspector Name Role Phone Aylin HICKMAN, Ben Willis Primary Care Physician [facility] - 03/31/20 [facility] Nando Palominoley Adult [address] [place] [address]- [facility] Allergies, Adverse Reactions, Alerts Substance Reaction [...] 10:48:07 EST, Aerosol, Route to Pharmacy Electronically, [id number], [facility]/pharmacy #[id number], 180, cm, 06/17/19 10:36:11 EST, Height Start Date: 06/17/19 Status: Ordered aspirin 81 mg oral tablet 1 tablet = 81 mg, By Mouth, Daily, # 30 tablet, 11 Refills, Maintenance, 09/03/19 14:22:00 EST, Tablet, [facility]/pharmacy #[id number], 180, cm, 08/01/19 10:43:00 [...] 15:47:00 EDT, CR Capsule, [facility]/pharmacy #[id number], 172, cm, 12/14/19 8:02:00 EDT, Height, 97.8, kg, 08/11/19 5:24:00 EST, Dry Weight Start Date: 01/02/20 Stop Date: 12/27/20 Status: Ordered cholecalciferol 2000 intl units oral capsule 1 capsule = 2,000 International_Units, By Mouth, Daily, # 30 capsule, 5 Refills, Maintenance, 11/02/19 10:15:00 EDT, Capsule, [facility]/pharmacy #[id number], 172, cm, 09/05/19 16:17:00 EST, Height, 97.8, kg, 08/11/19 5:24:00 EST, Dry Weight Start Date: 11/02/19 Status: Ordered cloNIDine 0.2 mg oral tablet 0.2 mg, 1, tablet, By Mouth, 2 times a day, # 60 tablet, Refills 2, Tot. Refills 2, Maintenance, 03/08/20 16:50:00 EDT, Route to Pharmacy Electronically, [facility]/pharmacy #[id number], 172, cm, 12/14/19 8:02:00EDT, Height, 97.8, kg, 08/11/19 5:24:00 EST, Dry We... Start Date: 03/08/20 Status: Ordered Colace sodium 100 mg oral capsule 100 mg, 1, capsule, By Mouth, 2 times a day, PRN, # 60 capsule, Refills 5, Tot. Refills 5, Maintenance, for constipation, 02/27/20 15:25:00 EDT, Route to Pharmacy Electronically, [facility]/pharmacy #[id number], 172, cm, 12/14/19 8:02:00 EDT, Height, 97.8, kg, 02/... Start Date: 02/27/20 Status: Ordered Crestor 20 mg oral tablet 1 tablet = 20 mg, By Mouth, Daily, # 90 tablet, 3 Refills, Maintenance, 01/02/20 15:46:00 EDT, Tablet, [facility]/pharmacy #[id number], 172, cm, 12/14/19 8:02:00 EDT, Height, 97.8, kg, 08/11/19 5:24:00 EST, Dry Weight Start Date: 01/02/20 Status: Ordered Daily Simone oral tablet 1 tablet, By Mouth, Daily, # 30 tablet, 5 Refills, Maintenance, 03/01/20 14:48:00 EDT, Tablet, [facility]/pharmacy #[id number], 1 tablet By Mouth Daily,x30 days, 172, cm, 12/14/19 8:02:00 EDT, Height, 97.8, kg, 08/11/19 5:24:00 EST, Dry Weight Start Date: 03/01/20 Stop Date: 08/28/20 Status: Ordered folic acid 1 mg oral tablet 1 mg, 1, tablet, By Mouth, Daily, # 30 tablet, Refills 5, Tot. Refills 5, Maintenance, 12/29/19 11:13:00 EDT, Route to Pharmacy Electronically, [facility]/pharmacy #[id number], 172, cm, 12/14/19 8:02:00 [...] Maintenance, 02/27/20 15:23:00 EDT, [facility]/pharmacy #[id number], 172, cm, 12/14/19 8:02:00 EDT, Height, 97.8, kg, 08/11/19 5:24:00 EST, Dry Weight Start Date: 02/27/20 Status: Ordered LaMICtal 100 mg oral tablet 100 mg, 1, tablet, By Mouth, 2 times a day, # 60 tablet, Refills 3, Tot. Refills 3, Maintenance, 01/21/19 11:25:36 EDT, Route to Pharmacy Electronically, [id number], [facility]/pharmacy #[id number] Start Date: 01/21/19 Stop [...] 02/28/20 8:20:00 EDT, Route to Pharmacy Electronically, [facility]/pharmacy #[id number], 172, cm, 12/14/19 8:02:00 EDT, Height, 97.8, kg, 08/11/19 5:24:00 EST, Dry Weight Start Date: 02/28/20 Status: Ordered metoprolol 50 mg oral tablet 75 mg, 1.5, tablet, By Mouth, 2 times a day, stop metoprolol 50 mg twice daily, # 180 tablet, Refills 2, Tot. Refills 2, Maintenance, 01/02/20 15:45:00 EDT, Route to Pharmacy Electronically, [facility]/pharmacy #[id number], 172, cm, 12/14/19 8:02:00 EDT, Height, 9... Start Date: 01/02/20 Status: Ordered nicotine 2 mg oral transmucosal lozenge See Instructions, suck, up to q1 hrs 10 daily, # 144 lozenge, 1 Refills, Maintenance, 03/21/20 11:13:00 EDT, [facility]/pharmacy #[id number], suck, up to q1 hrs 10 daily, 172, cm, 03/21/20 11:04:00 EDT, Height, 97.8, kg, 08/11/19 5:24:00 EST, Dry Weight Start Date: 03/21/20 Status: Ordered nicotine 4 mg oral transmucosal lozenge 1 lozenge = 4 mg, By Mouth, Every hour, # 132 lozenge, 1 Refills, Maintenance, 11/29/19 8:13:00 EDT, [facility]/pharmacy #[id number], 1 lozenge By Mouth [...] 1.5 Unknown, 0 Refills, Maintenance, [id number], 172, cm, 12/14/19 8:02:00 EDT, Height, 97.8, kg, 08/11/19 5:24:00 EST, Dry Weight Start Date: 02/09/20 Status: Ordered Pen [place], 31 G x 5 mm BD Ultra [...] Route to Pharmacy Electronically, [facility]/pharmacy #[id number], 172, cm, 09/05/19 16:17:00 [...] EST, Tablet, this was previously sent to [facility] pharmacy Start Date: 05/17/19 Stop Date: 05/11/20 Status: Ordered Tresiba FlexTouch 200 units/mL subcutaneous solution = 90 units, Subcutaneous Infusion, Daily, at bedtime, # 15 mL, 5 Refills, Maintenance, 08/04/19 13:13:00 EST, [facility]/pharmacy #[id number], 180, cm, 08/01/19 10:43:00 EST, Height Start Date: 08/04/19 Status: Ordered Problem List Condition Effective Dates Status Health Status Inform ant Acute pancreatitis(Confirmed) 07/16/16 Active Adenomatous colon polyp(Confirmed) Active Bipolar disorder(Confirmed) Active Cervical spondylosis(Confirmed) Active Chronic back pain DJD(Confirmed) Active Glomerulonephritis,mesangial proliferative/fibrillary(Confirmed) 1, 2 Active ASHD; [place] 2012/stent circumfl ex vessel [...] 524 weeks therapy with sofosbuvir/weight based ribavirin 34351 inferolateral stent bare metal circumflex 7DR Marissa [...]
--- OUTSIDE RECORDS SUMMARY | 2024-06-01 12:05 | XMS_ITS | Continuity of Care Document ---
Author Organization [facility] Shawn Lazaro lt Address [address] [place] [address]- Care Team Providers Care Special Forces Specialist Name Role Phone Carrie BIOMEDICAL MANAGERKelly Primary Care Physician [phone] [facility]): 01/27/24 - 02/26/24 [facility] Adult [address] [place] [address]- Allergies, Adverse Reactions, Alerts Substance Reaction Severity Status Bee Stings Active Immunizations Given and Recorded Vaccine Date Status Refusal Reason SARS-CoV-2(COVID-19)mRNA-LNP vac(brx032) 12/31/23 Recorded SARS-CoV-2(COVID-19)mRNA-LNP vac([id number]) 05/08/23 Recorded tetanus/diphtheria/pertussis, acel(Tdap) 10/15/23 Recorded tetanus/diphtheria/pertussis, [...] 02/03/23 Recorded zoster vaccine, inactivated 08/09/19 Recorded [id number] 12y+ bivalent booster vax 05/17/22 Recorded SARS-CoV-2 [...] adult vaccine 4 12/10/10 Given 1Result Comment: [id number] 2Result Comment: [id number] 3Admin Note: pt waited 10 mins post [...] 0 Refills, Maintenance, 02/02/24 15:25:00 EDT, [id number], with dose counter. any albuterol inhaler covered [...] day prn cough (Max 600 mg in l06-bfkv period), # 30 capsule, 0 Refills, Maintenance, [...] Refills, Maintenance, 02/12/24 11:53:00 EDT, [facility], 168, cm, 02/03/24 10:41:00 EDT, Height Start [...] 01/21/19 11:25:36 EDT, Route to Pharmacy Electronically, [id number], [facility]/pharmacy #[id number] Start Date: 01/21/19 Stop Date: 05/21/19 Status: Ordered lamotrigine 100 mg oral tablet TAKE 1 TABLET BY MOUTH TWICE A DAY Start Date: 02/26/24 Status: Ordered lisinopril 40 mg oral tablet 1 tablet, By Mouth, Daily, # 90 tablet, 1 Refills, Maintenance, 01/26/24 9:20:00 EDT, [facility], 168, cm, 01/11/24 14:42:00 EDT, Height, 93, [...] 0 Refills, Maintenance, 02/02/24 15:28:00 EDT, [place], [id number], Partial fill upon patient... Start Date: 02/02/24 Status: Ordered Pen [place]win, 31 G x 5 mm BD Ultra [...] Refills, Maintenance, 02/04/24 16:39:00 EDT, [facility], 168, cm, 02/03/24 10:41:00 EDT, Height Start [...] 4, GFR 15-29 ml/min Confirmed Active ASHD; [place] 2012/stent circumflex 2012/vessel cath;abdelrahman 2018 3 Confirmed [...] mild to moderate. 3MI 2012 circumflex stent 2012/[place] 4secondary to hep C 524 weeks therapy with sofosbuvir/weight based ribavirin 34567 inferolateral stent bare metal circumflex 7DR Molddoverno [...] Personnel Name: Darius HICKMAN, Jeffrey Lopez Position: [facility] Renal MD Member Role: Lifetime Consulting Physician Address: Address: [address] [facility] [place] [place] [address]- Name: Kelly Butler NP Position: [facility] PCO Associate Professional Member Role: PCP Address: Address: [address] [place] [address]- Name: Kristin Mckenzie Position: [facility] Outreach Member Role: Lifetime Consulting Physician Name: Fortunato Sin RN Position: [facility] RN Member Role: Primary Care Nurse Name: Prieto Tobin RN Position: [facility] RN Member Role: Primary Care Nurse Name: Jonn Hui DO Position: [facility] Renal MD Member Role: Lifetime Consulting Physician Address: Address: [address] [facility] [place] [address]- Name: Zafar CALVO, Luis Angel Rojas Position: [facility] RN Member Role: Primary Care Nurse Care Team Related Persons Name: CARLOS A BORDEN Address: [address] [place] [address] Name: LEVI BORDEN Address: [address] [place] [address]
--- OUTSIDE RECORDS SUMMARY | 2024-06-01 12:05 | XMS_ITS | Continuity of Care Document ---
Author Organization [facility] Shawn Lazaro lt Address [address] [place] [address]- Care Team Providers Care Field Support Specialist Name Role Phone Carrie Kelly RIVERA Primary Care Physician [phone] [facility] Date[facility]): 03/24/22 - 04/23/22 [facility] Adult [address] [place] [address]- Allergies, Adverse Reactions, Alerts Substance Reaction Severity [...] tablet, 3 Refills, Maintenance, 09/30/21 12:28:00 EDT, [facility]/pharmacy#0843, 175.2, cm, 09/20/21 8:36:00 EDT, Height, [...] Refills, Maintenance, 01/18/22 11:08:00 EDT, CR Capsule, [facility]/pharmacy #[id number], 175.2, cm, 11/15/21 11:18:00 EDT, Height, 88.3, kg, 03/12/21 9:16:00 EDT, Dry Weight Start Date: 01/18/22 Stop Date: 07/17/22 Status: Ordered Daily Simone oral tablet 1 tablet, By Mouth, Daily, # 30 tablet, 5 Refills, Maintenance, 02/11/22 11:48:00 EDT, Tablet, [facility]/pharmacy #0843, 1 tablet By Mouth Daily,x30 days, 175, cm, 01/29/22 15:12:00 EDT, Height, 93, kg, 01/28/22 14:55:00 EDT, Dry Weight Start Date: 02/11/22 Stop Date: 08/10/22 Status: Ordered docusate sodium 100 mg oral capsule 1 capsule, By Mouth, 2 times a day, PRN NEEDED FOR CONSTIPATION, # 60 capsule, 5 Refills, Maintenance, 06/05/21 15:57:00 EST, [facility]/pharmacy #[id number], 175.2, cm, 05/27/21 11:26:00 EST, Height, 88.3, kg, 03/12/21 9:16:00 EDT, Dry Weight Start Date: 06/05/21 Status: Ordered folic acid 1 mg oral tablet 1, tablet, By Mouth, Daily, # 30 tablet, Refills 5, Tot. Refills 5, Maintenance, 04/01/22 21:30:00 EDT, Route to Pharmacy Electronically, [facility]/pharmacy #[id number], 175, cm, 02/14/22 10:10:00 EDT, [...] 01/21/19 11:25:36 EDT, Route to Pharmacy Electronically, [id number], [facility]/pharmacy #[id number] Start Date: 01/21/19 Stop Date: 05/21/19 Status: Ordered lisinopril 40 mg oral tablet 1 tablet = 40 mg, By Mouth, Daily, # 30 tablet, 3 Refills, Maintenance, 09/17/21 10:50:00 EDT, Tablet, [facility]/pharmacy #0843, Partial fill upon patient request if the prescription is for a schedule II opioid drug., 175.2, cm, 07/31/21 11:20:00 EST, Heigh... Start Date: 09/17/21 Status: Ordered Metoprolol Tartrate 50 mg oral tablet 1.5 tablet, By Mouth, 2 times a day, # 270 tablet, 0 Refills, 03/16/22 12:48:00 EDT, [facility]/pharmacy #[id number], 175, cm, 02/14/22 10:10:00 EDT, Height, 93, kg, 01/28/22 14:55:00 EDT, Dry Weight Start Date: 03/16/22 Status: Ordered nicotine 14 mg/24 hr transdermal film, extended release 1 patch, Topically, Daily, for 30 days, # 30 patch, 1 Refills, Acute 05/13/22 12:16:00 EST, 03/14/22 12:16:00 EDT, Patch, [facility]/pharmacy #[id number], 1 patch Topically Daily,x30 days, [...] tablet, 0 Refills, Maintenance, 12/31/21 17:21:00 EDT, [facility]/pharmacy #0843, 175.2, cm, 12/18/21 14:10:00 EDT, Height... Start Date: 12/31/21 Status: Ordered NovoLOG FlexPen 100 units/mL injectable solution See Instructions, INJECT 0-18 UNITS SUBCUTANEOUSLY WITH MEALS FOR SLIDING SCALES, # 15 Unknown, 2 Refills, [facility], 175.2, cm, 05/27/21 11:26:00 EST, Height, 88.3, kg, 03/12/21 9:16:00 EDT, Dry Weight Start Date: 06/04/21 Status: Ordered Pen [place], 31 G x 5 mm BD Ultra [...] 5 Refills, Maintenance, 04/08/22 9:12:00 EDT, Capsule, [facility]/pharmacy #0843, 175, cm, 04/08/22 8:34:00 EDT, Height, 93, kg, 01/28/22 14:55:00 EDT, Dry Weight Start Date: 04/08/22 Status: Ordered rosuvastatin 20 mg oral tablet 1 tablet, By Mouth, Daily, # 90 tablet, 1 Refills, [facility], 175, cm, 01/29/22 15:12:00 EDT,Height, 93, kg, [...] 3 Refills, Maintenance, 04/08/22 9:09:00 EDT, Suspension, [facility]/pharmacy #0843, 1 drops Eyes, Both 2 [...] # 30 capsule, 5 Refills, [facility], 175.2, cm, 11/15/21 11:18:00 EDT, Height, 88.3, kg, 03/12/21 9:16:00 EDT, Dry Weight Start Date: 11/17/21 Status: Ordered Problem List Condition Confirmation Course Effective Dates Status Health Status Informant Bipolar disorder Confirmed Active Cervical spondylosis Confirmed Active Chronic back pain DJD Confirmed Active Glomerulonephritis,ulloa ngial proliferative/fibrillar y 1, 2 Confirmed Active Chronic renal failure, stage 4 (severe) Confirmed Active ASHD; [place] 2012/stent circumflex vessel [...] mild to moderate. 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
--- OUTSIDE RECORDS SUMMARY | 2024-06-01 12:05 | XMS_ITS | Continuity of Care Document ---
Author Organization [facility] Shawn Lazaro lt Address [address] [place] [address]- Care Team Providers Care Judicial Registrar Name Role Phone Carrie Kelly RIVERA Primary Care Physician [facility] 04[facility]15[facility]24 - 05/15/24 [facility] Adult [address] [place] [address]- Attending Physician: Admtr, [id number] Admitting Physician: Admtr, [...] virus vaccine, inactivated 04/16/10 Give n SARS-CoV-2(COVID-19)mRNA-LNP vac(klx403) 12/31/23 Recorded SARS-CoV-2(COVID-19)mRNA-LNP vac(dla417) 05/08/23 Recorded tetanus/diphtheria/pertussis, acel(Tdap) 10/15/23 Recorded tetanus/diphtheria/pertussis, acel(Tdap) 07/28/11 Given pneumococcal 20-valent conjugate vaccine 3 05/01/23 Given zoster vaccine, inactivated 02/03/23 Recorded zoster vaccine, inactivated 08/09/19 Recorded [id number] 12y+ bivalent booster vax 05/17/22 Recorded SARS-CoV-2 [...] 12/10/10 Given 1Result [facility]: [id number] 3Result Comment: [id number] 4Admin Note: pt waited 10 mins post inj no adverse reaction noted.j a 5Admin Note: PT WAITED 10 MIN WITH NO ADVERSE REACTION. Medications albuterol 90 mcg/inh inhalation powder 1 puffs, Inhalation, Every 6 hours, PRN Wheezing/Shortness of Breath, # 1 each, 0 Refills, Maintenance, 02/15/24 13:38:00 EDT, Powder, [facility]/pharmacy #[id number], Partial fill upon patient request if the prescription is for a schedule II opioid drug., 1 puffs... Start Date: 02/15/24 Status: Ordered amLODIPine 10 mg oral tablet 10 mg, By Mouth, Daily, # 30 tablet, Refills 5, Tot. Refills 5, Maintenance, 03/11/24 11:59:00 EDT,Route to Pharmacy Electronically, [facility]/pharmacy #0843, Partial fill upon patient request if the prescription is for a schedule II opioid drug., 168, cm,... Start Date: 03/11/24 Stop Date: 09/07/24 Status: Ordered aspirin 81 mg oral delayed release tablet 1 tablet, By Mouth, Daily, # 90 tablet, 1 Refills, Maintenance, 01/25/24 21:53:00 EDT, [facility]/pharmacy#0843, 168, cm, 01/11/24 14:42:00 EDT, Height, 93, [...] 04/19/24 14:32:00 EDT, Route to Pharmacy Electronically, [facility]/pharmacy #[id number], Partial fill upon patient request if [...] Refills, Maintenance, 01/11/24 14:46:00 EDT, Tablet, [facility]/pharmacy #0843, Partial fill upon patient request if the prescription is for a schedule II opioid drug., 168, cm, 01/11/24 14:42:00 EDT, Height,... Start Date: 01/11/24 Status: Ordered Flonase Allergy Relief 50 mcg/inh nasal spray See Instructions, 1 sprays Daily in each nostril, # 16 Gm, 0 Refills, Maintenance, 02/15/24 13:39:00 EDT, [facility]/pharmacy #0843, Partial fill upon patient request if the prescription is for a schedule II opioid drug., 168, cm, 02/03/24 10:41:00 EDT, Height Start Date: 02/15/24 Status: Ordered folic acid 1 mg oral tablet 1, tablet, By Mouth, Daily, # 90 tablet, Refills 1, Tot. Refills 1, Maintenance, 02/17/24 7:23:00 EDT, Route to Pharmacy Electronically, [facility]/pharmacy #[id number], 168, cm, 02/15/24 13:43:00 EDT, Height [...] 01/21/19 11:25:36 EDT, Route to Pharmacy Electronically, [id number], [facility]/pharmacy #[id number] Start Date: 01/21/19 Stop Date: 05/21/19 Status: Ordered lisinopril 10 mg oral tablet 10 mg, 1, tablet, By Mouth, Daily, # 90 tablet, Refills 0, Tot. Refills 0, Maintenance, 04/19/24 9:02:00 EDT, Route to Pharmacy Electronically, [facility]/pharmacy #[id number], 168, cm, 04/15/24 10:23:00 EDT, Height [...] 0 Refills, Maintenance, 03/17/24 14:24:00 EDT, [facility]/pharmacy #[id number], 168, cm, 03/17/24 9:46:00 EDT, Height [...] mL, 0 Refills, Maintenance, 02/02/24 15:28:00 EDT, [place], [facility]/pharmacy #[id number], Partial fill upon patient... Start Date: 02/02/24 Status: Ordered Pen [place], 31 G x 5 mm BD Ultra [...] 90 tablet, 1 Refills, Maintenance, 05/10/24 12:39:00 EST, [facility]/pharmacy#0843, rx resent 05/10/24, 168, cm, 04/19/24 14:01:00 EDT, Height Start Date: 05/10/24 Status: Ordered SEROquel 300 mg oral tablet [...] ml/min Confirmed Active ASHD; [place] 2012/stent circumflex 2012/vessel cath;abdelrahman 2018 3 Confirmed [...] 524 weeks therapy with sofosbuvir/weight based ribavirin 45096 inferolateral stent bare metal circumflex 7DR Seanverno sx;Dr Schwartz 8hyperplatic polyp repeat screening in [...] Role: Lifetime Consulting Physician Address: Address: [address] [place], [place] [address] [place], [place] [address] Name: Kelly Butler NP Position: [facility] PCO Associate Professional Member Role: PCP Address: Address: [address] [place] [address]- Name: Kristin Mckenzie Position: [facility] Outreach Member Role: Lifetime Consulting Physician Name: Fortunato Sin RN Position: [facility] RN Member Role: Primary Care Nurse Name: Nury Watts RN Position: [facility] RN Member Role: Primary Care Nurse Name: Antonia Mena NP Position: [facility] Associate Professional Member Role: Lifetime Consulting Provider Address: Address: [address] [place] [address] [facility] [place], [place] [address] Name: Prieto Tobin RN Position: [facility] RN Member Role: Primary Care Nurse Name: Ashleigh Reynoso RN Position: [facility] RN Member Role: Primary Care Nurse Name: Jonn Hui DO Position: [facility] Renal MD Member Role: Lifetime Consulting Physician Address: Address: [address] [place] [address] [address] [facility] [place], [place] [address] Name: Zafar CALVO, Luis Angel Rojas Position: [facility] RN Member Role: Primary Care Nurse Name: Brandan Nogueira RN Position: [facility] RN Member Role: Primary Care Nurse Care Team Related Persons Name: CARLOS A BORDEN Address: [address] [place] [address] Name: LEVI BORDEN Address: [address] [place] [address]
--- OUTSIDE RECORDS SUMMARY | 2024-06-01 12:05 | XMS_ITS | Continuity of Care Document ---
Author Organization [facility] Address [address] [place] [address]- Care Team Providers Care Party Coordinator Name Role Phone Aylin HICKMAN, Ben Willis Primary Care Physician [phone] Encounter [facility] Date(s): 06/21/20 - 07/21/20 [facility] [address], [place] [address] Attending Physician: Admtr, Ar8 Allergies, Adverse Reactions, Alerts [...] 10:48:07 EST, Aerosol, Route to Pharmacy Electronically, [id number], [facility]/pharmacy #[id number], 180, cm, 12/13/19 10:36:11 EST, Height Start Date: 06/17/19 Status: Ordered aspirin 81 mg oral delayed release tablet 1 tablet, By Mouth, Daily, # 30 tablet, 11 Refills, Maintenance, 06/26/20 12:19:00 EST, [facility] STORE [id number], 175, cm, 06/25/20 16:11:00 EST, Height, 83.6, [...] Refills, Maintenance, 01/02/20 15:47:00 EDT, CR Capsule, [facility]/pharmacy #[id number], 172, cm, 12/14/19 8:02:00 EDT, Height, 97.8, kg, 08/11/19 5:24:00 EST, Dry Weight Start Date: 01/02/20 Stop Date: 12/27/20 Status: Ordered cholecalciferol 2000 intl units oral capsule 1 capsule = 2,000 International_Units, By Mouth, Daily, # 30 capsule, 5 Refills, Maintenance, 05/25/20 11:53:00 EST, Capsule, [facility]/pharmacy #[id number], 175, cm, 05/24/20 12:46:00 EST, Height, 83.6, kg, 04/23/20 17:46:00 EDT, Dry Weight Start Date: 05/25/20 Status: Ordered cloNIDine 0.2 mg oral tablet 0.2 mg, 1, tablet, By Mouth, 2 times a day, # 60 tablet, Refills 2, Tot. Refills 2, Maintenance, 06/22/20 10:52:00 EST, Route to Pharmacy Electronically, [facility]/pharmacy #[id number], 175, cm, 05/24/20 12:46:00 EST, Height, 83.6, kg, 04/23/20 17:46:00 EDT, Dry... Start Date: 06/22/20 Status: Ordered Colace sodium 100 mg oral capsule 100 mg, 1, capsule, By Mouth, 2 times a day, PRN, # 60 capsule, Refills 5, Tot. Refills 5, Maintenance, for constipation, 02/27/20 15:25:00 EDT, [id number], cm, 12/14/19 8:02:00 EDT, Height, 97.8, kg, 02/... Start Date: 02/27/20 Status: Ordered Crestor 20 mg oral tablet 1 tablet = 20 mg, By Mouth, Daily, # 90 tablet, 3 Refills, Maintenance, 01/02/20 15:46:00 EDT, Tablet, [facility]/pharmacy #[id number], 172, cm, 12/14/19 8:02:00 EDT, Height, 97.8, kg, 08/11/19 5:24:00 EST, Dry Weight Start Date: 01/02/20 Status: Ordered Daily Simone oral tablet 1 tablet, By Mouth, Daily, # 30 tablet, 5 Refills, Maintenance, 03/01/20 14:48:00 EDT, Tablet, [facility]/pharmacy #[id number], 1 tablet By Mouth Daily,x30 days, 172, cm, 12/14/19 8:02:00 EDT, Height, 97.8, kg, 08/11/19 5:24:00 EST, Dry Weight Start Date: 03/01/20 Stop Date: 08/28/20 Status: Ordered folic acid 1 mg oral tablet 1 mg, 1, tablet, By Mouth, Daily, # 30 tablet, Refills 5, Tot. Refills 5, Maintenance, 07/04/20 13:24:00 EST, [id number], cm, 06/25/20 16:11:00 EST, Height, [...] tablet, 5 Refills, Maintenance, 02/27/20 15:23:00 EDT, [facility]/pharmacy #[id number], 172, cm, 12/14/19 8:02:00 EDT, Height, 97.8, kg, 08/11/19 5:24:00 EST, Dry Weight Start Date: 02/27/20 Status: Ordered Golytely - oral powder for reconstitution 240 mL, By Mouth, Daily, bowel instruction, # 4,000 mL, 0 Refills, Maintenance, 06/21/20 16:44:00 EST, REC Powder, [facility]/pharmacy #[id number], Partial fill upon patient request if the prescription is for a schedule II opioid drug., 240 mL By Mouth Daily,Instr... Start Date: 06/21/20 Status: Ordered LaMICtal 100 mg oral tablet 100 mg, 1, tablet, By Mouth, 2 times a day, # 60 tablet, Refills 3, Tot. Refills 3, Maintenance, 01/21/19 11:25:36 EDT, Route to Pharmacy Electronically, [id number], [facility]/pharmacy #[id number] Start [...] 01/02/20 15:45:00 EDT, Route to Pharmacy Electronically, [facility]/pharmacy #[id number], 172, cm, 12/14/19 8:02:00 EDT, Height, 9... Start Date: 01/02/20 Status: Ordered nicotine 2 mg oral transmucosal lozenge See Instructions, suck, up to q1 hrs 10 daily, # 144 lozenge, 1 Refills, Maintenance, 03/21/20 11:13:00 EDT, [facility]/pharmacy #[id number], suck, up to q1 hrs 10 daily, 172, cm, 03/21/20 11:04:00 EDT, Height, 97.8, kg, 08/11/19 5:24:00 EST, Dry Weight Start Date: 03/21/20 Status: Ordered nicotine 4 mg oral transmucosal lozenge 1 lozenge = 4 mg, By Mouth, Every hour, dispense 2 boxes of 81 count, # 189 lozenge, 1 Refills, Maintenance, 07/12/20 15:43:00 EST, [facility]/pharmacy #[id number], 1 lozenge By Mouth [...] 2 Refills, Soft Stop, 06/01/20 13:51:00 EST, [facility]/pharmacy #[id number], 175, cm, 05/24/20 12:46:00 [...] 9:13:... Start Date: 02/01/20 Status: Ordered Pen [place], 31 G x 5 mm BD Ultra [...] mL, 5 Refills, Maintenance, 08/04/19 13:13:00 EST, [facility]/pharmacy #[id number], 180, cm, 08/01/19 10:43:00 EST, Height Start Date: 08/04/19 Status: Ordered Problem List Condition Effective Dates Status Health Status Inform ant Acute pancreatitis(Confirmed) 07/16/16 Active Adenomatous colon polyp(Confirmed) Active Bipolar disorder(Confirmed) Active Cervical spondylosis(Confirmed) Active Chronic back pain DJD(Confirmed) Active Glomerulonephritis,mesangial proliferative/fibrillary(Confirmed) 1, 2 Active ASHD; VT 2012/stent circumfl ex vessel cath;abdelrahman 2018(Confirmed) 3 [...] mild to moderate. 3MI 2012 circumflex stent 2012/[place] 4secondary to hep C 524 weeks therapy with sofosbuvir/weight based ribavirin 09963 inferolateral stent bare metal circumflex 7DR Molddoverno sx;Dr Schwartz 8repeat colonoscopy in 5 years Vital Signs Most recent to oldest [Reference Range]: 1 Height 175.26 cm (01/07/11 3:02 PM) Weight 93.800 kg (01/07/11 3:02 PM) Pulse Rate [55-90 bpm] 72 bpm (01/07/11 3:02 PM) Body Mass Index [18.50-24.99] 30.54 *>HHI* (01/07/11 3:02 PM) Blood Pressure [90-138/55-84 mm Hg] 130/ 80mm Hg (01/07/11 3:02 PM) Respiratory Rate [16-30 br/min] 18 br/mi n (01/07/11 3:02 PM) Temperature [96.8-100.4 DegF] 98.8 DegF (01/07/11 3:02 PM) Blood pressure sites Arm, right (01/07/11 3:02 PM) Temperature Route Temporal (01/07/11 3:02 PM) Social History Social History Type Response Smoking Status Former smoker, quit more than 30 days ago; Interested in cessation: No; Other: quit; Tobacco use times per day: prio 1/2-1 ppd; Total pack years: 38; Started at age: 12; Stopped at age: 63; entered on: 07/20/20 Sex
--- OUTSIDE RECORDS SUMMARY | 2024-06-01 12:05 | XMS_ITS | Continuity of Care Document ---
Author Organization [facility] Nando Escobar Lazaro lt Address [address] [place] [address]- Care Team Providers Care Assistant Wrestling Coach Name Role Phone Carrie Kelly RIVERA Primary Care Physician [facility] Date[facility]s): 09/12/22 - 10/12/22 [facility] Shawn Adult [address] [place] [address]- Allergies, Adverse Reactions, Alerts Substance Reaction Severity [...] influenza virus vaccine, inactivated 04/16/10 Give n [id number] 12y+ bivalent booster vax 05/17/22 Recorded SARS-CoV-2 [...] Refills, Maintenance, 05/21/22 13:33:00 EST, [facility], 175, cm, 05/09/22 11:08:00 EDT, Height, 93, [...] Gm, 0 Refills, Maintenance, 09/05/22 9:15:00 EST, [id number], Partial fill upon patient request if the prescription is for a schedule II opioid drug., 1 sprays Nares, Both 2 times a day, 175, c... Start Date: 09/05/22 Status: Ordered folic acid 1 mg oral tablet 1, tablet, By Mouth, Daily, # 30 tablet, Refills 5, Tot. Refills 5, Maintenance, 08/15/22 10:27:00 EST, Route to Pharmacy Electronically, [facility]/pharmacy #[id number], 175, cm, 07/17/22 10:33:00 [...] 01/21/19 11:25:36 EDT, Route to Pharmacy Electronically, [id number], [facility]/pharmacy #[id number] Start Date: 01/21/19 Stop Date: 05/21/19 Status: Ordered lisinopril 40 mg oral tablet 1 tablet, By Mouth, Daily, # 90 tablet, 1 Refills, Maintenance, 05/07/22 14:29:00 EDT, [facility], 175, cm, 04/08/22 8:34:00 EDT, Height, 93, kg, 01/28/22 14:55:00 EDT, Dry Weight Start Date: 05/07/22 Status: Ordered Metoprolol Tartrate 50 mg oral tablet 1.5 tablet, By Mouth, 2 times a day, # 270 tablet, 1 Refills, Maintenance, 09/01/22 13:28:00 EST, [facility], 175, cm, 07/17/22 10:33:00 EST, Height, 93, kg, 01/28/22 14:55:00 EDT, Dry Weight Start Date: 09/01/22 Status: Ordered Nicotine 7 mg/24 hour patch 1 patch, Topically, Daily, # 30 patch, 1 Refills, Maintenance, 09/26/22 7:49:00 EDT, Patch, [facility]/pharmacy #[id number], Partial fill upon patient [...] # 15 Unknown, 2 Refills, [facility], 175.2, cm, 05/27/21 11:26:00 EST, Height, 88.3, kg, 03/12/21 9:16:00 EDT, Dry Weight Start Date: 06/04/21 Status: Ordered Pen [place], 31 G x 5 mm BD Ultra [...] tablet, 1 Refills, Maintenance, 05/21/22 13:33:00 EST, [facility], 175, cm, 05/09/22 11:08:00 EDT, Height, 93, kg, 01/28/22 14:55:00 EDT, Dry Weight Start Date: 05/21/22 Status: Ordered SEROquel 100 mg oral tablet 100 mg, 1, tablet, By Mouth, 2 times a day, PRN, # 1 tablet, Refills 2, Tot. Refills 2, Maintenance, Anxiety, 09/21/19 10:41:00 EDT, Route to Pharmacy Electronically, [facility]/pharmacy #[id number], 172, cm, 09/05/19 16:17:00 [...] 9 Unknown, 1 Refills, 01/21/22 15:39:00 EDT, [facility]/pharmacy #[id number], 175.2, cm, 12/18/21 14:10:00 EDT, Height... Start Date: 01/21/22 Status: Ordered Trulicity Pen 0.75 mg/0.5 mL subcutaneous solution 0.5 mL = 0.75 mg, Subcutaneous Injection, Every week, # 2.5 mL, 2 Refills, Maintenance, 04/08/22 9:12:00 EDT, Solution, [facility]/pharmacy #[id number], Partial fill upon patient request if the prescription is for a schedule II opioid drug., 175, cm, 04/08/22 8:34... Start Date: 04/08/22 Status: Ordered Ventolin HFA 108 mcg/inh inhalation aerosol with adapter 2 puffs, Inhalation, Every 4 hours, PRN for wheezing, for 180 days, # 1 each, 0 Refills, Acute 03/05/23 16:25:00 EDT, 09/06/22 16:25:00 EST, Aerosol, [facility]/pharmacy #[id number], Partial fill upon patient [...] mild to moderate. 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 524 weeks therapy with sofosbuvir/weight based ribavirin 07947 inferolateral stent bare metal circumflex 7DR Marissa [...] Team Personnel Name: Jeffrey Mccoy MD Position: [facility] Renal MD Member Role: Lifetime Consulting Physician Address: Address: [address] [facility] [place] [address]- Name: Kelly Butler NP Position: [facility] PCO Associate Professional Member Role: PCP Address: Address: [address] [place] [address]- Name: Kristin Mckenzie Position: [facility] Outreach Member Role: Lifetime Consulting Physician Name: Prieto Tobin RN Position: [facility] RN Member Role: Primary Care Nurse Name: Jonn Hui DO Position: [facility] Renal MD Member Role: Lifetime Consulting Physician Address: Address: [address] [place], [place] [address] [place] [address]- Name: Luis Angel Stephen RN Position: [facility] RN Member Role: Primary Care Nurse Name: Tamie Baird RN Position: [facility] RN Member Role: Primary Care Nurse Care Team Related Persons Name: CARLOS A BORDEN Address: home [address] [place] [address] Name: LEVI BORDEN Address: home [address] [place] [address]
--- OUTSIDE RECORDS SUMMARY | 2024-06-01 12:05 | XMS_ITS | Continuity of Care Document ---
Author Organization [facility] Shawn Lazaro lt Address [address] [place] [address]- Care Team Providers Care Wash House Worker Name Role Phone Aylin HICKMAN, Ben Willis Primary Care Physician [place] [facility] [place]18[place] - 08/17/[address] [facility] Trout Adult [address] [place] [address]- Allergies, Adverse Reactions, Alerts Substance Reaction Severity [...] 10:48:07 EST, Aerosol, Route to Pharmacy Electronically, [id number], [facility]/pharmacy #[id number], 180, cm, 06/17/19 10:36:11 EST, Height Start Date: 06/17/19 Status: Ordered aspirin 81 mg oral delayed release tablet 1 tablet, By Mouth, Daily, # 30 tablet, 11 Refills, Maintenance, 06/26/20 12:19:00 EST, [facility], 175, cm, 06/25/20 16:11:00 EST, Height, 83.6, [...] Refills, Maintenance, 01/02/20 15:47:00 EDT, CR Capsule, [facility]/pharmacy #[id number], 172, cm, 12/14/19 8:02:00 EDT, Height, 97.8, kg, 08/11/19 5:24:00 EST, Dry Weight Start Date: 01/02/20 Stop Date: 12/27/20 Status: Ordered cholecalciferol 2000 intl units oral capsule 1 capsule = 2,000 International_Units, By Mouth, Daily, # 30 capsule, 5 Refills, Maintenance, 05/25/20 11:53:00 EST, Capsule, [facility]/pharmacy #[id number], 175, cm, 05/24/20 12:46:00 EST, Height, 83.6, kg, 04/23/20 17:46:00 EDT, Dry Weight Start Date: 05/25/20 Status: Ordered cloNIDine 0.2 mg oral tablet 0.2 mg, 1, tablet, By Mouth, 2 times a day, # 60 tablet, Refills 2, Tot. Refills 2, Maintenance, 06/22/20 10:52:00 EST, Route to Pharmacy Electronically, [facility]/pharmacy #[id number], 175, cm, 05/24/20 12:46:00 EST, Height, 83.6, kg, 04/23/20 17:46:00 EDT, Dry... Start Date: 06/22/20 Status: Ordered Colace sodium 100 mg oral capsule 100 mg, 1, capsule, By Mouth, 2 times a day, PRN, # 60 capsule, Refills 5, Tot. Refills 5, Maintenance, for constipation, 02/27/20 15:25:00 EDT, Route to Pharmacy Electronically, [facility]/pharmacy #[id number], 172, cm, 12/14/19 8:02:00 EDT, Height, 97.8, kg, 02/... Start Date: 02/27/20 Status: Ordered Crestor 20 mg oral tablet 1 tablet = 20 mg, By Mouth, Daily, # 90 tablet, 3 Refills, Maintenance, 01/02/20 15:46:00 EDT, Tablet, [facility]/pharmacy #[id number], 172, cm, 12/14/19 8:02:00 EDT, Height, 97.8, kg, 08/11/19 5:24:00 EST, Dry Weight Start Date: 01/02/20 Status: Ordered Daily Simone oral tablet 1 tablet, By Mouth, Daily, # 30 tablet, 5 Refills, Maintenance, 03/01/20 14:48:00 EDT, Tablet, [facility]/pharmacy #[id number], 1 tablet By Mouth Daily,x30 days, 172, cm, 12/14/19 8:02:00 EDT, Height, 97.8, kg, 08/11/19 5:24:00 EST, Dry Weight Start Date: 03/01/20 Stop Date: 08/28/20 Status: Ordered folic acid 1 mg oral tablet 1 mg, 1, tablet, By Mouth, Daily, # 30 tablet, Refills 5, Tot. Refills 5, Maintenance, 07/04/20 13:24:00 EST, Route to Pharmacy Electronically, [facility]/pharmacy #[id number], 175, cm, 06/25/20 16:11:00 [...] tablet, 5 Refills, Maintenance, 02/27/20 15:23:00 EDT, [facility]/pharmacy #[id number], 172, cm, 12/14/19 8:02:00 EDT, Height, 97.8, kg, 08/11/19 5:24:00 EST, Dry Weight Start Date: 02/27/20 Status: Ordered Golytely - oral powder for reconstitution 240 mL, By Mouth, Daily, bowel instruction, # 4,000 mL, 0 Refills, Maintenance, 06/21/20 16:44:00 EST, REC Powder, [facility]/pharmacy #[id number], Partial fill upon patient request if the prescription is for a schedule II opioid drug., 240 mL By Mouth Daily,Instr... Start Date: 06/21/20 Status: Ordered LaMICtal 100 mg oral tablet 100 mg, 1, tablet, By Mouth, 2 times a day, # 60 tablet, Refills 3, Tot. Refills 3, Maintenance, 01/21/19 11:25:36 EDT, Route to Pharmacy Electronically, [id number], [facility]/pharmacy #[id number] Start [...] 01/02/20 15:45:00 EDT, Route to Pharmacy Electronically, [facility]/pharmacy #[id number], 172, cm, 12/14/19 8:02:00 EDT, Height, 9... Start Date: 01/02/20 Status: Ordered nicotine 2 mg oral transmucosal lozenge See Instructions, suck, up to q1 hrs 10 daily, # 144 lozenge, 1 Refills, Maintenance, 03/21/20 11:13:00 EDT, [facility]/pharmacy #[id number], suck, up to q1 hrs 10 daily, 172, cm, 03/21/20 11:04:00 EDT, Height, 97.8, kg, 08/11/19 5:24:00 EST, Dry Weight Start Date: 03/21/20 Status: Ordered nicotine 4 mg oral transmucosal lozenge 1 lozenge = 4 mg, By Mouth, Every hour, dispense 2 boxes of 81 count, # 189 lozenge, 1 Refills, Maintenance, 07/12/20 15:43:00 EST, [facility]/pharmacy #[id number], 1 lozenge By [...] 2 Refills, Soft Stop, 06/01/20 13:51:00 EST, [facility]/pharmacy #[id number], 175, cm, 05/24/20 12:46:00 [...] 9:13:... Start Date: 02/01/20 Status: Ordered Pen [place], 31 G x 5 mm BD Ultra [...] mL, 5 Refills, Maintenance, 08/04/19 13:13:00 EST, [facility]/pharmacy #[id number], 180, cm, 08/01/19 [...] 524 weeks therapy with sofosbuvir/weight based ribavirin 18412 inferolateral stent bare metal circumflex 7DR Marissa [...]
--- OUTSIDE RECORDS SUMMARY | 2024-06-01 12:05 | XMS_ITS | Continuity of Care Document ---
Author Organization [facility] Nando Escobar Lazaro lt Address [address] [place] [address]- Care Team Providers Care Sanitary Engineering Teacher Name Role Phone Carrie HYDROELECTRIC PLANT MECHANICAL ENGINEERKelly Primary Care Physician [facility]s): 02[facility]25[facility]23 - 03/27/23 [facility] Nando Escobar Adult [address] [place] [address]- Allergies, Adverse Reactions, Alerts Substance Reaction Severity [...] influenza virus vaccine, inactivated 04/16/10 Give n [id number] 12y+ bivalent booster vax 05/17/22 Recorded SARS-CoV-2 [...] tablet, 1 Refills, Maintenance, 12/30/22 14:35:00 EDT, [facility]/pharmacy#[id number], 175, cm, 10/09/22 16:51:00 EDT, Height, 93, [...] Refills, Maintenance, 01/07/23 21:36:00 EDT, [facility], 90, TAKE 1 TABLET BY MOUTH EVERY [...] capsule, 0 Refills, Maintenance, 12/30/22 14:30:00 EDT, [facility]/pharmacy #[id number], 175, cm, 10/09/22 16:51:00 EDT, Height, 93, kg, 01/28/22 14:55:00 EDT, Dry Weight Start Date: 12/30/22 Status: Ordered docusate sodium 100 mg oral capsule 1 capsule, By Mouth, 2 times a day, PRN NEEDED FOR CONSTIPATION, # 60 capsule, 5 Refills, Maintenance, 07/18/22 11:59:00 EST, [facility]/pharmacy #[id number], 175, cm, 07/17/22 10:33:00 EST, Height, 93, kg, 01/28/22 14:55:00 EDT, Dry Weight Start Date: 07/18/22 Status: Ordered Flonase 50 mcg/inh nasal spray 1 sprays, Nares, Both, 2 times a day, # 16 Gm, 0 Refills, Maintenance, 09/05/22 9:15:00 EST, [place],[facility]/pharmacy #[id number], Partial fill upon patient request if the prescription is for a schedule II opioid drug., 1 sprays Nares, Both 2 times a day, 175, c... Start Date: 09/05/22 Status: Ordered folic acid 1 mg oral tablet 1, tablet, By Mouth, Daily, # 90 tablet, Refills 1, Tot. Refills 1, Maintenance, 01/08/23 13:00:00 EDT, Route to Pharmacy Electronically, [facility]/pharmacy #[id number], 175, cm, 10/09/22 16:51:00 EDT, Height, [...] 01/21/19 11:25:36 EDT, Route to Pharmacy Electronically, [id number], [facility]/pharmacy #[id number] Start Date: 01/21/19 Stop Date: 05/21/19 Status: Ordered lisinopril 40 mg oral tablet 1 tablet, By Mouth, Daily, # 90 tablet, 0 Refills, Maintenance, 12/29/22 11:59:00 EDT, [facility]/pharmacy#[id number], 175, cm, 10/09/22 16:51:00 EDT, Height, 93, kg, 01/28/22 14:55:00 EDT, Dry Weight Start Date: 12/29/22 Status: Ordered Metoprolol Tartrate 50 mg oral tablet 1.5 tablet, By Mouth, 2 times a day, # 270 tablet, 1 Refills, Maintenance, 02/20/23 7:15:00 EDT, [facility] STORE [facility], 175, cm, 10/09/22 16:51:00 EDT, Height, 93, kg, 01/28/22 14:55:00 EDT, Dry Weight Start Date: 02/20/23 Status: Ordered nicotine 14 mg/24 hr transdermal film, extended release 1 patch, Topically, Daily, for 30 days, further refills will require enrollment in a cessation program, # 30 patch, 0 Refills, Acute 04/23/23 14:51:00 EDT, 03/24/23 14:51:00 EDT, Patch, [facility]/pharmacy #[id number], 1 patch Topically Daily,x30 days,Instr:furthe... Start Date: 03/24/23 Stop Date: 04/23/23 Status: Ordered nitroglycerin 0.4 mg sublingual tablet [...] Weight Start Date: 11/07/22 Status: Ordered Pen [place], 31 G x [...] 11/03/22 15:04:00 EDT, [id number],Partial fill upon patient request if the prescripti... Start Date: 11/03/22 Status: Ordered SEROquel 100 mg oral tablet 100 mg, 1, tablet, By Mouth, 2 times a day, PRN, # 1 tablet, Refills 2, Tot. Refills 2, Maintenance, Anxiety, 09/21/19 10:41:00 EDT, Route to Pharmacy Electronically, [facility]/pharmacy #[id number], 172, cm, 09/05/19 16:17:00 EST, Height, [...] 9 Unknown, 1 Refills, 01/21/22 15:39:00 EDT, [facility]/pharmacy #[id number], 175.2, cm, 12/18/21 14:10:00 EDT, Height... Start Date: 01/21/22 Status: Ordered Trulicity Pen 0.75 mg/0.5 mL subcutaneous solution 0.5 mL = 0.75 mg, Subcutaneous Injection, Every week, # 2.5 mL, 1 Refills, Maintenance, 01/13/23 9:59:00 EDT, Solution, [facility]/pharmacy #[id number], 175, cm, 10/09/22 16:51:00 EDT, Height, 93, kg, 01/28/22 14:55:00 EDT, Dry Weight Start Date: 01/13/23 Status: Ordered Vitamin D3 2000 intl units [...] 524 weeks therapy with sofosbuvir/weight based ribavirin 30020 inferolateral stent bare metal circumflex 7DR Marissa [...] Team Personnel Name: Jeffrey Mccoy MD Position: [facility] Renal MD Member Role: Lifetime Consulting Physician Address: Address: [address] [place] [address] [facility] [place], [place] [address] Name: Kelly Butler NP Position: [facility] PCO Associate Professional Member Role: PCP Address: Address: [address] [place] [address]- Name: Kristin Mckenzie Position: [facility] Outreach Member Role: Lifetime Consulting Physician Name: Prieto Tobin RN Position: [facility] RN Member Role: Primary Care Nurse Name: Jonn Hui DO Position: [facility] Renal MD Member Role: Lifetime Consulting Physician Address: Address: [address] [place], [place] [address] [place], [place] [address] Name: Zafar CALVO, Luis Angel Rojas Position: [facility] RN Member Role: Primary Care Nurse Care Team Related Persons Name: CARLOS A BORDEN Address: home [address] [place] [address] Name: LEVI BORDEN Address: home [address] [place] [address]
--- OUTSIDE RECORDS SUMMARY | 2024-06-01 12:05 | XMS_ITS | Continuity of Care Document ---
Author Organization [facility] Shawn Lazaro lt Address [address] [place] [address]- Care Team Providers Care Mutuel Clerk Name Role Phone Aylin HICKMAN, Ben Willis Primary Care Physician [phone] [place] [facility] 12/17/21 - 01/16/22 [facility] Adult [address] [place] [address]- Allergies, Adverse Reactions, Alerts Substance Reaction Severity [...] 11:08:00 EDT, 01/23/21 11:08:00 EDT, CR Capsule, [facility]/pharmacy #[id number], 175.3, cm, 01/21/21 12:58:00 EDT, [...] 12:51:00 EST, Route to Pharmacy Electronically, [facility]/pharmacy #[id number], 175.2, cm, 06/07/21 9:51:00 EST, Height, 88.3, kg, 03/12/21 9:16:00 EDT, Dry... Start Date: 06/24/21 Status: Ordered Daily Simone oral tablet 1 tablet, By Mouth, Daily, # 30 tablet, 5 Refills, Maintenance, 07/29/21 13:53:00 EST, Tablet, [facility]/pharmacy #[id number], 1 tablet By Mouth Daily,x30 days, 175.2, cm, 06/07/21 9:51:00 EST, Height, 88.3, kg,03/12/21 9:16:00 EDT, Dry Weight Start Date: 07/29/21 Stop Date: 01/25/22 Status: Ordered docusate sodium 100 mg oral capsule 1 capsule, By Mouth, 2 times a day, PRN NEEDED FOR CONSTIPATION, # 60 capsule, 5 Refills, Maintenance, 06/05/21 15:57:00 EST, [facility]/pharmacy #[id number], 175.2, cm, 05/27/21 11:26:00 EST, Height, 88.3, kg, 03/12/21 9:16:00 EDT, Dry Weight Start Date: 06/05/21 Status: Ordered folic acid 1 mg oral tablet 1, tablet, By Mouth, Daily, # 30 tablet, Refills 5, Tot. Refills 5, Maintenance, 07/25/21 15:59:00 EST, Route to Pharmacy Electronically, [facility]/pharmacy #[id number], 175.2, cm, 06/07/21 9:51:00 EST, [...] 5 Refills, Maintenance, 06/05/21 15:57:00 EST, [facility]/pharmacy #[id number], 175.2, cm, 05/27/21 11:26:00 EST, Height, 88.3, kg, 03/12/21 9:16:00 EDT, Dry Weight Start Date: 06/05/21 Status: Ordered LaMICtal 100 mg oral tablet 100 mg, 1, tablet, By Mouth, 2 times a day, # 60 tablet, Refills 3, Tot. Refills 3, Maintenance, 01/21/19 11:25:36 EDT, Route to Pharmacy Electronically, [id number], [facility]/pharmacy #[id number] Start Date: 01/21/19 Stop Date: 05/21/19 Status: Ordered lisinopril 40 mg oral tablet 1 tablet = 40 mg, By Mouth, Daily, # 30 tablet, 3 Refills, Maintenance, 09/17/21 10:50:00 EDT, Tablet, [facility]/pharmacy #[id number], Partial fill upon patient request if the prescription is for a schedule II opioid drug., 175.2, cm, 07/31/21 11:20:00 EST, Heigh... Start Date: 09/17/21 Status: Ordered Metoprolol Tartrate 50 mg oral tablet 1.5 tablet, By Mouth, 2 times a day, # 270 tablet, 0 Refills, [facility], 175.2, cm, 11/15/21 11:18:00 EDT, Height, 88.3, kg, 03/12/21 9:16:00 EDT, Dry Weight Start Date: 12/12/21 Status: Ordered nicotine 2 mg oral transmucosal lozenge See Instructions, USE 1 LOZENGE BY MOUTH UP TO EVERY 1 HOUR NEEDED FOR 10 DAYS, # 144 lozenge, 0Refills, [facility], 10, USE 1 LOZENGE BY MOUTH UP [...] Stop 02/06/22 12:37:00 EDT, 01/09/22 12:37:00 EDT, [facility]/pharmacy #[id number], 1lozenge By Mouth Every 4 hours,x4 week(s),Instr:as... Start Date: 01/09/22 Stop Date: 02/06/22 Status: Ordered nitroglycerin 0.4 mg sublingual tablet See Instructions, DISSOLVE 1 UNDER TONGUE EVERY 5 MINUTES NEEDED FOR CHEST PAIN CALL MD AFTER TAKING 3 TABS IN TOTAL IN A DAY, # 100 tablet, 0 Refills, Maintenance, 12/31/21 17:21:00 EDT, [facility]/pharmacy #[id number], 175.2, cm, 12/18/21 14:10:00 EDT, Height... Start Date: 12/31/21 Status: Ordered NovoLOG FlexPen 100 units/mL injectable solution See Instructions, INJECT 0-18 UNITS SUBCUTANEOUSLY WITH MEALS FOR SLIDING SCALES, # 15 Unknown, 2 Refills, [facility] STORE [facility], 175.2, cm, 05/27/21 11:26:00 EST, Height, 88.3, kg, 03/12/21 9:16:00 EDT, Dry Weight Start Date: 06/04/21 Status: Ordered Pen Lejunior, 31 G x 5 mm BD Ultra [...] capsule, 5 Refills, Maintenance, 11/19/21 11:25:00EDT, Capsule, [facility]/pharmacy #[id number], 175.2, cm, 11/15/21 11:18:00 EDT, Height, 88.3, kg, 03/12/21 9:16:00 EDT, Dry Weight Start Date: 11/19/21 Status: Ordered pregabalin 75 mg oral capsule 1 capsule = 75 mg, By Mouth, Daily, # 30 capsule, 5 Refills, Maintenance, 06/10/21 12:32:00 EST, Capsule, [facility]/pharmacy #[id number], 175.2, cm, 06/07/21 9:51:00 EST, Height, 88.3, kg, 03/12/21 9:16:00 EDT, Dry Weight Start Date: 06/10/21 Status: Ordered rosuvastatin 20 mg oral tablet 1 tablet, By Mouth, Daily, # 90 tablet, 1 Refills, Maintenance, 08/15/21 14:24:00 EST, [facility]/pharmacy#0843, 175.2, cm, 07/31/21 11:20:00 EST, Height, 88.3, kg, 03/12/21 9:16:00 EDT, Dry Weight Start Date: 08/15/21 Status: Ordered SEROquel 100 mg oral tablet 100 mg, 1, tablet, By Mouth, 2 times a day, # 60 tablet, Refills 2, Tot. Refills 2, Maintenance, 09/21/19 10:41:00 EDT, Route to Pharmacy Electronically, [facility]/pharmacy #[id number], 172, cm, 09/05/19 16:17:00 EST, [...] 3 Refills, Maintenance, 12/18/21 14:33:00 EDT, Suspension, [facility]/pharmacy #[id number], 1 drops Eyes, Both 2 [...] # 9 Unknown, 1 Refills, [facility], 175.2, cm, 07/31/21 11:20:00 EST, Height, 88.3, [...] Mouth, Daily, # 30 capsule, 5 Refills, [facility] 630[facility], 175.2, cm, 11/15/21 11:18:00 EDT, Height, 88.3, [...] 524 weeks therapy with sofosbuvir/weight based ribavirin 63442 inferolateral stent bare metal circumflex 7DR Molddoverno [...]
--- OUTSIDE RECORDS SUMMARY | 2024-06-01 12:05 | XMS_ITS | Continuity of Care Document ---
Author Organization [facility] Shawn Lazaro lt Address [address] [place] [address]- Care Team Providers Care Towel Rolling Machine Operator Name Role Phone Aylin HICKMAN, Ben Willis Primary Care Physician [facility]counter [facility] Date(s): 02/28/20 - 03/29/20 [facility] Adult [address] [place] [address]- [place] States Allergies, Adverse Reactions, Alerts Substance Reaction Severity [...] 10:48:07 EST, Aerosol, Route to Pharmacy Electronically, [id number], [id number], 180, cm, 06/17/19 10:36:11 EST, Height Start Date: 06/17/19 Status: Ordered aspirin 81 mg oral tablet 1 tablet = 81 mg, By Mouth, Daily, # 30 tablet, 11 Refills, Maintenance, 09/03/19 14:22:00 EST, Tablet, [facility]/pharmacy #[id number], 180, cm, 08/01/19 [...] Refills, Maintenance, 01/02/20 15:47:00 EDT, CR Capsule, [facility]/pharmacy #[id number], 172, cm, 12/14/19 8:02:00 EDT, Height, 97.8, kg, 08/11/19 5:24:00 EST, Dry Weight Start Date: 01/02/20 Stop Date: 12/27/20 Status: Ordered cholecalciferol 2000 intl units oral capsule 1 capsule = 2,000 International_Units, By Mouth, Daily, # 30 capsule, 5 Refills, Maintenance, 11/02/19 10:15:00 EDT, Capsule, [facility]/pharmacy #[id number], 172, cm, 09/05/19 16:17:00 EST, Height, 97.8, kg, 08/11/19 5:24:00 EST, Dry Weight Start Date: 11/02/19 Status: Ordered cloNIDine 0.2 mg oral tablet 0.2 mg, 1, tablet, By Mouth, 2 times a day, # 60 tablet, Refills 2, Tot. Refills 2, Maintenance, 03/08/20 16:50:00 EDT, Route to Pharmacy Electronically, [facility]/pharmacy #[id number], 172, cm, 12/14/19 8:02:00EDT, Height, 97.8, kg, 08/11/19 5:24:00 EST, Dry We... Start Date: 03/08/20 Status: Ordered Colace sodium 100 mg oral capsule 100 mg, 1, capsule, By Mouth, 2 times a day, PRN, # 60 capsule, Refills 5, Tot. Refills 5, Maintenance, for constipation, 02/27/20 15:25:00 EDT, Route to Pharmacy Electronically, [facility]/pharmacy #[id number], 172, cm, 12/14/19 8:02:00 EDT, Height, 97.8, kg, 02/... Start Date: 02/27/20 Status: Ordered Crestor 20 mg oral tablet 1 tablet = 20 mg, By Mouth, Daily, # 90 tablet, 3 Refills, Maintenance, 01/02/20 15:46:00 EDT, Tablet, [facility]/pharmacy #[id number], 172, cm, 12/14/19 8:02:00 EDT, Height, 97.8, kg, 08/11/19 5:24:00 EST, Dry Weight Start Date: 01/02/20 Status: Ordered Daily Simone oral tablet 1 tablet, By Mouth, Daily, # 30 tablet, 5 Refills, Maintenance, 03/01/20 14:48:00 EDT, Tablet, [facility]/pharmacy #[id number], 1 tablet By Mouth Daily,x30 days, 172, cm, 12/14/19 8:02:00 EDT, Height, 97.8, kg, 08/11/19 5:24:00 EST, Dry Weight Start Date: 03/01/20 Stop Date: 08/28/20 Status: Ordered folic acid 1 mg oral tablet 1 mg, 1, tablet, By Mouth, Daily, # 30 tablet, Refills 5, Tot. Refills 5, Maintenance, 12/29/19 11:13:00 EDT, Route to Pharmacy Electronically, [facility]/pharmacy #[id number], 172, cm, 12/14/19 [...] tablet, 5 Refills, Maintenance, 02/27/20 15:23:00 EDT, [facility]/pharmacy #[id number], 172, cm, 12/14/19 8:02:00 EDT, Height, 97.8, kg, 08/11/19 5:24:00 EST, Dry Weight Start Date: 02/27/20 Status: Ordered LaMICtal 100 mg oral tablet 100 mg, 1, tablet, By Mouth, 2 times a day, # 60 tablet, Refills 3, Tot. Refills 3, Maintenance, 01/21/19 11:25:36 EDT, Route to Pharmacy Electronically, [id number], [facility]/pharmacy #[id number] Start Date: [...] 02/28/20 8:20:00 EDT, Route to Pharmacy Electronically, [facility]/pharmacy #[id number], 172, cm, 12/14/19 8:02:00 EDT, Height, 97.8, kg, 08/11/19 5:24:00 EST, Dry Weight Start Date: 02/28/20 Status: Ordered metoprolol 50 mg oral tablet 75 mg, 1.5, tablet, By Mouth, 2 times a day, stop metoprolol 50 mg twice daily, # 180 tablet, Refills 2, Tot. Refills 2, Maintenance, 01/02/20 15:45:00 EDT, Route to Pharmacy Electronically, [facility]/pharmacy #[id number], 172, cm, 12/14/19 8:02:00 EDT, Height, 9... Start Date: 01/02/20 Status: Ordered nicotine 2 mg oral transmucosal lozenge See Instructions, suck, up to q1 hrs 10 daily, # 144 lozenge, 1 Refills, Maintenance, 03/21/20 11:13:00 EDT, [facility]/pharmacy #[id number], suck, up to q1 hrs 10 daily, 172, cm, 03/21/20 11:04:00 EDT, Height, 97.8, kg, 08/11/19 5:24:00 EST, Dry Weight Start Date: 03/21/20 Status: Ordered nicotine 4 mg oral transmucosal lozenge 1 lozenge = 4 mg, By Mouth, Every hour, # 132 lozenge, 1 Refills, Maintenance, 11/29/19 8:13:00 EDT, [facility]/pharmacy #[id number], 1 lozenge By [...] WEEKLY, # 1.5 Unknown, 0 Refills, Maintenance, [facility], 172, cm, 12/14/19 8:02:00 EDT, Height, 97.8, kg, 08/11/19 5:24:00 EST, Dry Weight Start Date: 02/09/20 Status: Ordered Pen Stone, 31 G x 5 mm BD Ultra [...] 09/21/19 10:41:00 EDT, Route to Pharmacy Electronically, [facility]/pharmacy #[id number], 172, cm, 09/05/19 [...] EST, Tablet, this was previously sent to [facility] pharmacy Start Date: 05/17/19 Stop Date: 05/11/20 Status: Ordered Tresiba FlexTouch 200 units/mL subcutaneous solution = 90 units, Subcutaneous Infusion, Daily, at bedtime, # 15 mL, 5 Refills, Maintenance, 08/04/19 13:13:00 EST, [facility]/pharmacy #[id number], 180, cm, 08/01/19 [...] 524 weeks therapy with sofosbuvir/weight based ribavirin 28825 inferolateral stent bare metal circumflex 7DR Marissa [...]
--- OUTSIDE RECORDS SUMMARY | 2024-06-01 12:05 | XMS_ITS | Continuity of Care Document ---
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) - 06/25/20 Attending Physician: Ben Viera MD Allergies, Adverse [...] 10:48:07 EST, Aerosol, Route to Pharmacy Electronically, [id number], [facility]/pharmacy #[id number], 180, cm, 06/17/19 10:36:11 EST, Height Start Date: 06/17/19 Status: Ordered aspirin 81 mg oral delayed release tablet 1 tablet, By Mouth, Daily, # 30 tablet, 11 Refills, Maintenance, 06/26/20 12:19:00 EST, [facility], 175, cm, 06/25/20 16:11:00 EST, Height, 83.6, [...] Refills, Maintenance, 01/02/20 15:47:00 EDT, CR Capsule, [facility]/pharmacy #[id number], 172, cm, 12/14/19 8:02:00 EDT, Height, 97.8, kg, 08/11/19 5:24:00 EST, Dry Weight Start Date: 01/02/20 Stop Date: 12/27/20 Status: Ordered cholecalciferol 2000 intl units oral capsule 1 capsule = 2,000 International_Units, By Mouth, Daily, # 30 capsule, 5 Refills, Maintenance, 05/25/20 11:53:00 EST, Capsule, [facility]/pharmacy #[id number], 175, cm, 05/24/20 12:46:00 EST, Height, 83.6, kg, 04/23/20 17:46:00 EDT, Dry Weight Start Date: 05/25/20 Status: Ordered cloNIDine 0.2 mg oral tablet 0.2 mg, 1, tablet, By Mouth, 2 times a day, # 60 tablet, Refills 2, Tot. Refills 2, Maintenance, 06/22/20 10:52:00 EST, Route to Pharmacy Electronically, [facility]/pharmacy #[id number], 175, cm, 05/24/20 12:46:00 EST, Height, 83.6, kg, 04/23/20 17:46:00 EDT, Dry... Start Date: 06/22/20 Status: Ordered Colace sodium 100 mg oral capsule 100 mg, 1, capsule, By Mouth, 2 times a day, PRN, # 60 capsule, Refills 5, Tot. Refills 5, Maintenance, for constipation, 02/27/20 15:25:00 EDT, Route to Pharmacy Electronically, [facility]/pharmacy #[id number], 172, cm, 12/14/19 8:02:00 EDT, Height, 97.8, kg, 02/... Start Date: 02/27/20 Status: Ordered Crestor 20 mg oral tablet 1 tablet = 20 mg, By Mouth, Daily, # 90 tablet, 3 Refills, Maintenance, 01/02/20 15:46:00 EDT, Tablet, [facility]/pharmacy #[id number], 172, cm, 12/14/19 8:02:00 EDT, Height, 97.8, kg, 08/11/19 5:24:00 EST, Dry Weight Start Date: 01/02/20 Status: Ordered Daily Simone oral tablet 1 tablet, By Mouth, Daily, # 30 tablet, 5 Refills, Maintenance, 03/01/20 14:48:00 EDT, Tablet, [facility]/pharmacy #[id number], 1 tablet By Mouth Daily,x30 days, 172, cm, 12/14/19 8:02:00 EDT, Height, 97.8, kg, 08/11/19 5:24:00 EST, Dry Weight Start Date: 03/01/20 Stop Date: 08/28/20 Status: Ordered folic acid 1 mg oral tablet 1 mg, 1, tablet, By Mouth, Daily, # 30 tablet, Refills 5, Tot. Refills 5, Maintenance, 12/29/19 11:13:00 EDT, Route to Pharmacy Electronically, [facility]/pharmacy #[id number], 172, cm, 12/14/19 8:02:00 EDT, [...] tablet, 5 Refills, Maintenance, 02/27/20 15:23:00 EDT, [facility]/pharmacy #[id number], 172, cm, 12/14/19 8:02:00 EDT, Height, 97.8, kg, 08/11/19 5:24:00 EST, Dry Weight Start Date: 02/27/20 Status: Ordered Golytely - oral powder for reconstitution 240 mL, By Mouth, Daily, bowel instruction, # 4,000 mL, 0 Refills, Maintenance, 06/21/20 16:44:00 EST, REC Powder, [facility]/pharmacy #[id number], Partial fill upon patient request if the prescription is for a schedule II opioid drug., 240 mL By Mouth Daily,Instr... Start Date: 06/21/20 Status: Ordered LaMICtal 100 mg oral tablet 100 mg, 1, tablet, By Mouth, 2 times a day, # 60 tablet, Refills 3, Tot. Refills 3, Maintenance, 01/21/19 11:25:36 EDT, Route to Pharmacy Electronically, [id number], [facility]/pharmacy #[id number] Start Date: 01/21/19 [...] 01/02/20 15:45:00 EDT, Route to Pharmacy Electronically, [facility]/pharmacy #[id number], 172, cm, 12/14/19 8:02:00 EDT, Height, 9... Start Date: 01/02/20 Status: Ordered nicotine 2 mg oral transmucosal lozenge See Instructions, suck, up to q1 hrs 10 daily, # 144 lozenge, 1 Refills, Maintenance, 03/21/20 11:13:00 EDT, [facility]/pharmacy #[id number], suck, up to q1 hrs 10 daily, 172, cm, 03/21/20 11:04:00 EDT, Height, 97.8, kg, 08/11/19 5:24:00 EST, Dry Weight Start Date: 03/21/20 Status: Ordered nicotine 4 mg oral transmucosal lozenge 1 lozenge = 4 mg, By Mouth, Every hour, dispense 2 boxes of 81 count, # 189 lozenge, 1 Refills, Maintenance, 06/19/20 12:59:00 EST, [facility]/pharmacy #[id number], 1 lozenge [...] 5 Refills, Soft Stop, 02/01/20 9:13:00 EDT, [facility]/pharmacy #[id number], 172, cm, 12/14/19 8:02:00 EDT, Height, 97.8, kg, 08/11/19 5:24:00 EST, Dry Weight Start Date: 02/01/20 Status: Ordered Pen [place], 31 G x 5 mm BD Ultra [...] EST, Tablet, this was previously sent to [facility] pharmacy Start Date: 05/17/19 Stop Date: [...] Active Glomerulonephritis,mesangial proliferative/fibrillary(Confirmed) 1, 2 Active ASHD; [place] 2012/stent circumfl ex vessel cath;abdelrahman 2018(Confirmed) 3 [...] 524 weeks therapy with sofosbuvir/weight based ribavirin 52821 inferolateral stent bare metal circumflex 7DR Molddoverno sx;Dr Schwartz 8repeat colonoscopy in 5 years Diagnosis Diagnosis Type Effective Dates Health Status Clinical Service Informant Hypoglycemia Discharge Diagnosis 06/25/20 Insulin long-term use Discharge Diagnosis 06/25/20 Type 2 diabetes mellitus with diabetic nephropathy Discharge Diagnosis 06/25/20 Vital Signs Most recent to oldest [Reference Range]: 1 Height 175 cm (06/25/20 4:11 PM) Social History Social History Type Response Smoking Status Former smoker, quit more than 30 days ago; Interested in cessation: Yes; Tobacco use times per day: 0.5-1 PPD; Total pack years: 38; Started at age: 12; Stopped at age: 63; entered on: 12/14/19 Sex
--- OUTSIDE RECORDS SUMMARY | 2024-06-01 12:05 | XMS_ITS | Continuity of Care Document ---
Author Organization [facility] Shawn Lazaro lt Address [address] [place] [address]- Care Team Providers Care Industrial Safety And Health Specialist Name Role Phone Carrie Kelly RIVERA Primary Care Physician [facility] Date(s): 02/02/24 - 03/03/24 [facility] Adult [address] [place] [address]- Allergies, Adverse Reactions, Alerts Substance Reaction Severity Status Bee Stings Active Immunizations Given and Recorded Vaccine Date Status Refusal Reason SARS-CoV-2(COVID-19)mRNA-LNP vac([id number]) 12/31/23 Recorded SARS-CoV-2(COVID-19)mRNA-LNP vac([id number]) 05/08/23 Recorded tetanus/diphtheria/pertussis, acel(Tdap) 10/15/23 Recorded tetanus/diphtheria/pertussis, [...] 02/03/23 Recorded zoster vaccine, inactivated 08/09/19 Recorded [id number] 12y+ bivalent booster vax 05/17/22 Recorded SARS-CoV-2 [...] adult vaccine 4 12/10/10 Given 1Result Comment: [id number] 2Result Comment: [id number] 3Admin Note: pt waited 10 mins post [...] day prn cough (Max 600 mg in a69-fjyx period), # 30 capsule, 0 Refills, Maintenance, [...] 02/29/24 11:18:00 EDT, Route to Pharmacy Electronically, [facility]/pharmacy #[id number], Partial fill upon patient request if the prescriptio... Start Date: 02/29/24 Stop Date: 03/14/24 Status: Ordered D3 50 mcg (2000 intl units) oral capsule 1 capsule, By Mouth, Daily, # 90 capsule, 0 Refills, Maintenance, 12/09/23 14:09:00 EDT, [facility]/pharmacy #[id number], 168, cm, 10/27/23 15:34:00 EDT, Height, 93, kg, 01/28/22 14:55:00 EDT, Dry Weight Start Date: 12/09/23 Status: Ordered Daily Simone oral tablet 1 tablet, By Mouth, Daily, # 90 tablet, 1 Refills, Maintenance, 01/25/24 16:01:00 EDT, [facility]/pharmacy#0843, 90, 1 tablet By Mouth Daily, 168, cm, 01/11/24 14:42:00 EDT, Height, 93, kg, 01/28/22 14:55:00 EDT, Dry Weight Start Date: 01/25/24 Status: Ordered dapagliflozin 10 mg oral tablet 1 tablet = 10 mg, By Mouth, Daily, # 30 tablet, 0 Refills, Maintenance, 01/11/24 14:46:00 EDT, Tablet, [facility]/pharmacy #[id number], Partial fill upon [...] 02/17/24 7:23:00 EDT, Route to Pharmacy Electronically, [facility]/pharmacy #[id number], 168, cm, 02/15/24 13:43:00 [...] 01/21/19 11:25:36 EDT, Route to Pharmacy Electronically, [id number], [facility]/pharmacy #[id number] Start Date: 01/21/19 [...] tablet, 0 Refills, Maintenance, 10/03/22 15:53:00 EDT, [facility]/pharmacy #[id number], 175, cm, 09/17/22 13:59:00 EDT, Height,... Start Date: 10/03/22 Status: Ordered NovoLOG FlexPen 100 units/mL injectable solution See Instructions, INJECT 0-18 UNITS SUBCUTANEOUSLY WITH MEALS FOR SLIDING SCALES, # 15 Unknown, 2 Refills, 01/12/24 14:36:00 EDT, [facility]/pharmacy #[id number], MAX DAILY DOSE 54 [...] mL, 0 Refills, Maintenance, 02/02/24 15:28:00 EDT, [place], [facility]/pharmacy #0843, Partial fill upon patient... Start Date: 02/02/24 Status: Ordered Pen [place], 31 G x 5 mm BD Ultra [...] Refills, Maintenance, 02/04/24 16:39:00 EDT, [facility], 168, cm, 02/03/24 10:41:00 EDT, Height Start Date: 02/04/24 Status: Ordered senna - oral tablet 2 tablet, By Mouth, Daily at bedtime, PRN for constipation, for 14 days, # 28 tablet, 0 Refills, Acute 03/14/24 11:19:00 EDT, 02/29/24 11:19:00 EDT, Tablet, [facility]/pharmacy #[id number], Partial fill upon [...] ml/min Confirmed Active ASHD; [place] 2012/stent circumflex 2012/vessel cath;abdelrahman 2018 3 Confirmed [...] 524 weeks therapy with sofosbuvir/weight based ribavirin 06257 inferolateral stent bare metal circumflex 7DR Molddoida [...] Team Personnel Name: Jeffrey Mccoy MD Position: [facility] Renal MD Member Role: Lifetime Consulting Physician Address: Address: [address] [place] [address] [address] [facility] [place], [place] [facility] Name: Kelly Butler NP Position: [facility] PCO Associate Professional Member Role: PCP Address: Address: [address] [place] [address]- Name: Kristin Mckenzie Position: [facility] Outreach Member Role: Lifetime Consulting Physician Name: Fortunato Sin RN Position: [facility] RN Member Role: Primary Care Nurse Name: Nury Watts RN Position: [facility] RN Member Role: Primary Care Nurse Name: Antonia Mena NP Position: [facility] Associate Professional Member Role: Lifetime Consulting Provider Address: Address: [address] [place], [place] [address]E [facility] [place], [place] - Name: Prieto Tobin RN Position: [facility] RN Member Role: Primary Care Nurse Name: Ashleigh Reynoso RN Position: [facility] RN Member Role: Primary Care Nurse Name: Jonn Hui DO Position: [facility] Renal MD Member Role: Lifetime Consulting Physician Address: Address: [address] [place] [address] [address] [facility] [place], [place] - Name: Luis Angel Stephen RN Position: [facility] RN Member Role: Primary Care Nurse Name: Brandan Nogueira RN Position: S RN Member Role: Primary Care Nurse Care Team Related Persons Name: CARLOS A BORDEN Address: home [address] [place] [address] UM Name: LEVI BORDEN Address: home [address] [place] [address]
--- OUTSIDE RECORDS SUMMARY | 2024-06-01 12:05 | XMS_ITS | Continuity of Care Document ---
Author Organization [facility] Shawn Lazaro lt Address [address] [place] [address]- Care Team Providers Care Wax Cutter Name Role Phone Aylin HICKMAN, Ben Willis Primary Care Physician [facility] Date[facility]): 07/25/21 - 08/24/21 [facility] Adult [address] [place] [address]- Allergies, Adverse Reactions, Alerts Substance Reaction Severity [...] tablet, 5 Refills, Maintenance, 07/25/21 10:21:00 EST, [facility]/pharmacy#[id number], 175.2, cm, 06/07/21 9:51:00 EST, Height, 88.3, [...] Maintenance, 01/23/21 11:08:00 EDT, CR Capsule, [facility]/pharmacy #[id number], 175.3, cm, 01/21/21 12:58:00 EDT, Height, 83.6, kg, 04/23/20 17:46:00EDT, Dry Weight Start Date: 01/23/21 Stop Date: 01/18/22 Status: Ordered cholecalciferol 2000 intl units oral capsule 1 capsule = 2,000 International_Units, By Mouth, Daily, # 30 capsule, 5 Refills, Maintenance, 05/15/21 13:02:00 EST, Capsule, [facility]/pharmacy #[id number], 175.2, cm, 03/18/21 10:48:00 EDT, Height, 88.3, kg, 03/12/21 9:16:00 EDT, Dry Weight Start Date: 05/15/21 Status: Ordered cloNIDine 0.2 mg oral tablet 0.2 mg, 1, tablet, By Mouth, 2 times a day, # 60 tablet, Refills 5, Tot. Refills 5, Maintenance, 06/24/21 12:51:00 EST, Route to Pharmacy Electronically, [facility]/pharmacy #[id number], 175.2, cm, 06/07/21 9:51:00 EST, Height, 88.3, kg, 03/12/21 9:16:00 EDT, Dry... Start Date: 06/24/21 Status: Ordered Daily Simone oral tablet 1 tablet, By Mouth, Daily, # 30 tablet, 5 Refills, Maintenance, 07/29/21 13:53:00 EST, Tablet, [facility]/pharmacy #[id number], 1 tablet By Mouth Daily,x30 days, 175.2, cm, 06/07/21 9:51:00 EST, Height, 88.3, kg,03/12/21 9:16:00 EDT, Dry Weight Start Date: 07/29/21 Stop Date: 01/25/22 Status: Ordered docusate sodium 100 mg oral capsule 1 capsule, By Mouth, 2 times a day, PRN NEEDED FOR CONSTIPATION, # 60 capsule, 5 Refills, Maintenance, 06/05/21 15:57:00 EST, [facility]/pharmacy #[id number], 175.2, cm, 05/27/21 11:26:00 EST, Height, 88.3, kg, 03/12/21 9:16:00 EDT, Dry Weight Start Date: 06/05/21 Status: Ordered folic acid 1 mg oral tablet 1, tablet, By Mouth, Daily, # 30 tablet, Refills 5, Tot. Refills 5, Maintenance, 07/25/21 15:59:00 EST, Route to Pharmacy Electronically, [facility]/pharmacy #[id number], 175.2, cm, 06/07/21 9:51:00 EST, Height, [...] 5 Refills, Maintenance, 06/05/21 15:57:00 EST, [facility]/pharmacy #[id number], 175.2, cm, 05/27/21 11:26:00 EST, Height, 88.3, kg, 03/12/21 9:16:00 EDT, Dry Weight Start Date: 06/05/21 Status: Ordered LaMICtal 100 mg oral tablet 100 mg, 1, tablet, By Mouth, 2 times a day, # 60 tablet, Refills 3, Tot. Refills 3, Maintenance, 01/21/19 11:25:36 EDT, Route to Pharmacy Electronically, [id number], [facility]/pharmacy #[id number] Start Date: 01/21/19 Stop Date: 05/21/19 [...] Refills, Maintenance, 06/24/21 16:13:00 EST, Tablet, [facility]/pharmacy #[id number], Partial fill upon patient request if the prescription is for a schedule II opioid drug., 175.2, cm, 06/07/21 9:51:00 EST, Height... Start Date: 06/24/21 Status: Ordered Metoprolol Tartrate 50 mg oral tablet See Instructions, TAKE 1 + 1/2 TABLETS BY MOUTH 2 TIMES A DAY, # 270 tablet, 0 Refills, 06/24/21 10:42:00 EST, [facility]/pharmacy #[id number], 175.2, cm, 06/07/21 9:51:00 EST, Height, 88.3, kg, 03/12/21 9:16:00 EDT, Dry Weight Start Date: 06/24/21 Status: Ordered nicotine 2 mg oral transmucosal lozenge See Instructions, USE 1 LOZENGE UP TO EVERY 1 HOUR NEEDED FOR 10 DAYS, # 81 lozenge, 0 Refills, Maintenance, 08/15/21 14:43:00 EST, [facility]/pharmacy #[id number], USE 1 LOZENGE UP TO EVERY 1 HOUR NEEDED FOR 10 DAYS, 175.2, cm, 07/31/21 11:20:00 EST, Height... Start Date: 08/15/21 Status: Ordered nitroglycerin 0.4 mg sublingual tablet See Instructions, DISSOLVE 1 UNDER TONGUE EVERY 5 MINUTES NEEDED FOR CHEST PAIN INSTR:CALL MD AFTER TAKING 3 TABS IN TOTAL IN A DAY, # 100 tablet, 0 Refills, Maintenance, 08/23/21 8:07:00 EST, [facility]/pharmacy #[id number], 175.2, cm, 07/31/21 11:20:00 EST, H... Start Date: 08/23/21 Status: Ordered NovoLOG FlexPen 100 units/mL injectable solution See Instructions, INJECT 0-18 UNITS SUBCUTANEOUSLY WITH MEALS FOR SLIDING SCALES, # 15 Unknown, 2 Refills, [facility] STORE [id number], 175.2, cm, 05/27/21 11:26:00 EST, Height, 88.3, kg, 03/12/21 9:16:00 EDT, Dry Weight Start Date: 06/04/21 Status: Ordered Pen [place], 31 G x 5 mm BD [...] Refills, Maintenance, 06/10/21 12:32:00 EST, Capsule, [facility]/pharmacy #[id number], 175.2, cm, 06/07/21 9:51:00 EST, Height, 88.3, kg, 03/12/21 9:16:00 EDT, Dry Weight Start Date: 06/10/21 Status: Ordered pregabalin 75 mg oral capsule 1 capsule = 75 mg, By Mouth, 2 times a day, # 60 capsule, 5 Refills, Maintenance, 06/07/21 13:14:00EST, Capsule, [facility]/pharmacy #[id number], 175.2, cm, 06/07/21 9:51:00 EST, Height, 88.3, kg, 03/12/21 9:16:00 EDT, Dry Weight Start Date: 06/07/21 Status: Ordered rosuvastatin 20 mg oral tablet 1 tablet, By Mouth, Daily, # 90 tablet, 1 Refills, Maintenance, 08/15/21 14:24:00 EST, [facility]/pharmacy#[id number], 175.2, cm, 07/31/21 11:20:00 EST, Height, 88.3, kg, 03/12/21 9:16:00 EDT, Dry Weight Start Date: 08/15/21 Status: Ordered SEROquel 100 mg oral tablet 100 mg, 1, tablet, By Mouth, 2 times a day, # 60 tablet, Refills 2, Tot. Refills 2, Maintenance, 09/21/19 10:41:00 EDT, [id number], cm, 09/05/19 16:17:00 EST, [...] 524 weeks therapy with sofosbuvir/weight based ribavirin 52538 inferolateral stent bare metal circumflex 7DR Marissa [...]
--- OUTSIDE RECORDS SUMMARY | 2024-06-01 12:05 | XMS_ITS | Continuity of Care Document ---
Author Organization [facility] Shawn Lazaro lt Address [address] [place] [address]- Care Team Providers Care Battery Hand Name Role Phone Aylin HICKMAN, Ben Willis Primary Care Physician [facility] Date[facility]s): 09[facility]/21 - 10/21/21 [facility] Nando Palominoley Adult [address] [place] [address]- Allergies, Adverse Reactions, Alerts Substance Reaction Severity [...] tablet, Refills 5, Tot. Refills 5, Maintenance, 12/20/21 12:51:00 EST, Route to Pharmacy Electronically, [facility]/pharmacy #[id number], 175.2, cm, 06/07/21 9:51:00 EST, Height, 88.3, kg, 03/12/21 9:16:00 EDT, Dry... Start Date: 06/24/21 Status: Ordered Daily Simone oral tablet 1 tablet, By Mouth, Daily, # 30 tablet, 5 Refills, Maintenance, 07/29/21 13:53:00 EST, Tablet, [facility]/pharmacy #[id number], 1 tablet By Mouth Daily,x30 days, 175.2, cm, 06/07/21 9:51:00 EST, Height, 88.3, kg,03/12/21 9:16:00 EDT, Dry Weight Start Date: 07/29/21 Stop Date: 01/25/22 Status: Ordered docusate sodium 100 mg oral capsule 1 capsule, By Mouth, 2 times a day, PRN NEEDED FOR CONSTIPATION, # 60 capsule, 5 Refills, Maintenance, 06/05/21 15:57:00 EST, [facility]/pharmacy #[id number], 175.2, cm, 05/27/21 11:26:00 EST, Height, 88.3, kg, 03/12/21 9:16:00 EDT, Dry Weight Start Date: 06/05/21 Status: Ordered folic acid 1 mg oral tablet 1, tablet, By Mouth, Daily, # 30 tablet, Refills 5, Tot. Refills 5, Maintenance, 07/25/21 15:59:00 EST, [id number] 175.2, cm, 06/07/21 9:51:00 EST, [...] tablet, 5 Refills, Maintenance, 06/05/21 15:57:00 EST, [facility]/pharmacy #[id number], 175.2, cm, 05/27/21 11:26:00 EST, Height, 88.3, kg, 03/12/21 9:16:00 EDT, Dry Weight Start Date: 06/05/21 Status: Ordered LaMICtal 100 mg oral tablet 100 mg, 1, tablet, By Mouth, 2 times a day, # 60 tablet, Refills 3, Tot. Refills 3, Maintenance, 01/21/19 11:25:36 EDT, Route to Pharmacy Electronically, [id number], [facility]/pharmacy #[id number] Start Date: 01/21/19 [...] 3 Refills, Maintenance, 09/17/21 10:50:00 EDT, Tablet, [facility]/pharmacy #[id number], Partial fill upon [...] 10 DAYS, # 162 lozenge, 0 Refills,Maintenance, 10/16/21 16:21:00 EDT, [facility]/pharmacy #[id number], 16, USE 1 LOZENGE UP TO EVERY 1 HOUR NEEDED FOR 10 DAYS, 175.2, cm, 09/20/21 8:36:00 EDT, He... Start Date: 10/16/21 Status: Ordered nitroglycerin 0.4 mg sublingual tablet See Instructions, DISSOLVE 1 UNDER TONGUE EVERY 5 MINUTES NEEDED FOR CHEST PAIN INSTR:CALL MD AFTER TAKING 3 TABS IN TOTAL IN A DAY, # 100 tablet, 0 Refills, Maintenance, 08/23/21 8:07:00 EST, [facility]/pharmacy #[id number], 175.2, cm, 07/31/21 11:20:00 EST, H... Start Date: 08/23/21 Status: Ordered NovoLOG FlexPen 100 units/mL injectable solution See Instructions, INJECT 0-18 UNITS SUBCUTANEOUSLY WITH MEALS FOR SLIDING SCALES, # 15 Unknown, 2 Refills, [facility] STORE 88587, 175.2, cm, 05/27/21 11:26:00 EST, Height, 88.3, kg, 03/12/21 9:16:00 EDT, Dry Weight Start Date: 06/04/21 Status: Ordered Pen [place], 31 G x 5 mm BD Ultra [...] 5 Refills, Maintenance, 06/10/21 12:32:00 EST, Capsule, [facility]/pharmacy #[id number], 175.2, cm, 06/07/21 9:51:00 EST, Height, 88.3, kg, 03/12/21 9:16:00 EDT, Dry Weight Start Date: 06/10/21 Status: Ordered pregabalin 75 mg oral capsule 1 capsule = 75 mg, By Mouth, 2 times a day, # 60 capsule, 5 Refills, Maintenance, 06/07/21 13:14:00EST, Capsule, [facility]/pharmacy #[id number], 175.2, cm, 06/07/21 9:51:00 EST, Height, 88.3, kg, 03/12/21 9:16:00 EDT, Dry Weight Start Date: 06/07/21 Status: Ordered rosuvastatin 20 mg oral tablet 1 tablet, By Mouth, Daily, # 90 tablet, 1 Refills, Maintenance, 08/15/21 14:24:00 EST, [facility]/pharmacy#0843, 175.2, cm, 07/31/21 11:20:00 EST, Height, [...] # 9 Unknown, 1 Refills, [facility], 175.2, cm, 07/31/21 11:20:00 EST, Height, 88.3, [...] failure, stage 4 (severe)(Confirmed) Active ASHD; [place] 2012/stent circumfl ex vessel [...] 524 weeks therapy with sofosbuvir/weight based ribavirin 64691 inferolateral stent bare metal circumflex 7DR Marissa [...]
--- OUTSIDE RECORDS SUMMARY | 2024-06-01 12:05 | XMS_ITS | Continuity of Care Document ---
Author Organization [facility] Shawn Lazaro lt Address [address] [place] [address]- Care Team Providers Care Nurse Chemical Dependency Name Role Phone Aylin HICKMAN, Ben Willis Primary Care Physician [facility] Date[facility]s): 06/05/21 - 07/05/21 [facility] Adult [address] [place] [address]- Allergies, Adverse Reactions, Alerts Substance Reaction Severity [...] Refills, Maintenance, 06/26/20 12:19:00 EST, [facility], 175, cm, 06/25/20 16:11:00 EST, Height, 83.6, [...] 5 Refills, Maintenance, 09/19/20 8:25:00 EDT, Tablet, [facility]/pharmacy #[id number], 1 [...] 01/18/21 14:44:00 EDT, Route to Pharmacy Electronically, [facility] STORE [address]30, 175, cm, 12/24/20 11:20:00 EDT, Height, 83.6, [...] 01/21/19 11:25:36 EDT, Route to Pharmacy Electronically, [id number], [facility]/pharmacy #[id number] Start Date: [...] 10 DAYS, # 162 lozenge, 0 Refills,Maintenance, 07/01/21 13:25:00 EST, [facility]/pharmacy #[id number], 10, USE 1 LOZENGE UP TO EVERY 1 HOUR NEEDED FOR 10 DAYS, 175.2, cm, 06/07/21 9:51:00 EST, He... Start Date: 07/01/21 Status: Ordered nitroglycerin 0.4 mg sublingual tablet [...] 2 Refills, [facility] STORE 08167, 175.2, cm, 05/27/21 11:26:00 EST, Height, 88.3, kg, 03/12/21 9:16:00 EDT, Dry Weight Start Date: 06/04/21 Status: Ordered Pen [place], 31 G x 5 mm BD Ultra [...] tablet, 1 Refills, Maintenance, 01/08/21 14:43:00 EDT, [facility]/pharmacy#0843, 175, cm, 12/24/20 11:20:00 [...] 11 Refills, Maintenance, 12/24/20 11:37:00 EDT, Solution, [facility]/pharmacy #[id number], Partial fill [...] mild to moderate. 3MI 2012 circumflex stent 2012/[place] 4secondary to hep C 524 weeks therapy with sofosbuvir/weight based ribavirin 16887 inferolateral stent bare metal circumflex 7DR Molddoverno [...]
--- OUTSIDE RECORDS SUMMARY | 2024-06-01 12:05 | XMS_ITS | Continuity of Care Document ---
Author Organization [facility] Address [address] [place] [address]- Care Team Providers Care [facility] Name Role Phone Aylin HICKMAN, Ben Willis Primary Care Physician Encounter [facility] Date(s): 12/06/19 - 01/05/20 [facility] [address] [address]- [facility] Attending Physician: Radha Biggs Admitting Physician: AdmRadha kate Referring Physician: AdmtrRadha Allergies, Adverse Reactions, Alerts Substance Reaction Severity [...] 10:48:07 EST, Aerosol, Route to Pharmacy Electronically, [id number], [facility]/pharmacy #[id number], 180, cm, 06/17/19 10:36:11 EST, Height Start Date: 06/17/19 Status: Ordered aspirin 81 mg oral tablet 1 tablet = 81 mg, By Mouth, Daily, # 30 tablet, 11 Refills, Maintenance, 09/03/19 14:22:00 EST, Tablet, [facility]/pharmacy #[id number], 180, cm, 08/01/19 10:43:00 EST, Height [...] Refills, Maintenance, 01/02/20 15:47:00 EDT, CR Capsule, [facility]/pharmacy #[id number], 172, cm, 12/14/19 8:02:00 EDT, Height, 97.8, kg, 08/11/19 5:24:00 EST, Dry Weight Start Date: 01/02/20 Stop Date: 12/27/20 Status: Ordered cholecalciferol 2000 intl units oral capsule 1 capsule = 2,000 International_Units, By Mouth, Daily, # 30 capsule, 5 Refills, Maintenance, 11/02/19 10:15:00 EDT, Capsule, [facility]/pharmacy #[id number], 172, cm, 09/05/19 16:17:00 EST, Height, 97.8, kg, 08/11/19 5:24:00 EST, Dry Weight Start Date: 11/02/19 Status: Ordered cloNIDine 0.2 mg oral tablet 0.2 mg, 1, tablet, By Mouth, 2 times a day, # 60 tablet, Refills 2, Tot. Refills 2, Maintenance, 01/02/20 15:44:00 EDT, Route to Pharmacy Electronically, [facility]/pharmacy #[id number], 172, cm, 12/14/19 8:02:00EDT, Height, 97.8, kg, 08/11/19 5:24:00 EST, Dry We... Start Date: 01/02/20 Status: Ordered Colace sodium 100 mg oral capsule 100 mg, 1, capsule, By Mouth, 2 times a day, PRN, # 60 capsule, Refills 5, Tot. Refills 5, Maintenance, for constipation, 04/25/19 13:50:52 EDT, Route to Pharmacy Electronically, [id number], [facility]/pharmacy #[id number] Start Date: 04/25/19 Status: Ordered Crestor 20 mg oral tablet 1 tablet = 20 mg, By Mouth, Daily, # 90 tablet, 3 Refills, Maintenance, 01/02/20 15:46:00 EDT, Tablet, [facility]/pharmacy #0843, 172, cm, 12/14/19 8:02:00 EDT, Height, 97.8, kg, 08/11/19 5:24:00 EST, Dry Weight Start Date: 01/02/20 Status: Ordered Daily Simone oral tablet 1 tablet, By Mouth, Daily, # 30 tablet, 5 Refills, Maintenance, 09/21/19 10:41:00 EDT, Tablet, [facility]/pharmacy #0843, 1 tablet By Mouth Daily,x30 days, 172, cm, 09/05/19 16:17:00 EST, Height, 97.8, kg, 08/11/19 5:24:00 EST, Dry Weight Start Date: 09/21/19 Stop Date: 03/19/20 Status: Ordered folic acid 1 mg oral tablet 1 mg, 1, tablet, By Mouth, Daily, # 30 tablet, Refills 5, Tot. Refills 5, Maintenance, 12/29/19 11:13:00 EDT, Route to Pharmacy Electronically, [facility]/pharmacy #[id number], 172, cm, 12/14/19 8:02:00 EDT, Height, [...] 01/21/19 11:25:36 EDT, Route to Pharmacy Electronically, [id number], [facility]/pharmacy #[id number] Start Date: 01/21/19 Stop [...] 01/02/20 15:45:00 EDT, Route to Pharmacy Electronically, [facility]/pharmacy #[id number], 172, cm, 12/14/19 8:02:00 EDT, Height, 97.8, kg, 08/11/19 5:24:00 EST, Dry Weight Start Date: 01/02/20 Status: Ordered metoprolol 50 mg oral tablet 75 mg, 1.5, tablet, By Mouth, 2 times a day, stop metoprolol 50 mg twice daily, # 180 tablet, Refills 2, Tot. Refills 2, Maintenance, 01/02/20 15:45:00 EDT, Route to Pharmacy Electronically, [facility]/pharmacy #[id number], 172, cm, 12/14/19 8:02:00 EDT, Height, 9... Start Date: 01/02/20 Status: Ordered nicotine 4 mg oral transmucosal lozenge See Instructions, suck, up to q1 hrs 10 daily, # 144 lozenge, 1 Refills, Maintenance, 12/29/19 16:13:00 EDT, [facility]/pharmacy #0843, suck, up to q1 hrs 10 daily, 172, cm, 12/14/19 8:02:00 EDT, Height, 97.8, kg, 08/11/19 5:24:00 EST, Dry Weight Start Date: 12/29/19 Status: Ordered nicotine 4 mg oral transmucosal lozenge 1 lozenge = 4 mg, By Mouth, Every hour, # 132 lozenge, 1 Refills, Maintenance, 11/29/19 8:13:00 EDT, [facility]/pharmacy #[id number], 1 lozenge By Mouth Every hour, [...] PAIN CALL 911 IF PAIN NOT RELIEVED, [facility]/pharmacy #[id number] Start Date: 02/17/19 Status: Ordered NovoLOG FlexPen 100 units/mL subcutaneous solution See Instructions, # 15 Unknown, Refills 5 Tot. Refills 5, INJECT 0-18 UNITS SUBCUTANEOUSLY WITH MEALS FOR SLIDING SCALES, [id number] Start Date: 01/04/19 Status: Ordered Pen [place], 31 G x 5 mm BD [...] 0 Refills, Maintenance, 10/05/19 11:07:00 EDT, Solution, [facility]/pharmacy #[id number], 172, cm, 09/05/19 16:17:00 EST, Height, [...] 09/21/19 10:41:00 EDT, Route to Pharmacy Electronically, [facility]/pharmacy #[id number], 172, cm, 09/05/19 16:17:00 EST, Height, [...] EST, Tablet, this was previously sent to [facility] pharmacy Start Date: 05/17/19 Stop Date: [...] impairment, st age 3 (moderate)(Confirmed) Active ASHD; [place] 2012/stent circumfl ex vessel [...] mild to moderate. 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
--- OUTSIDE RECORDS SUMMARY | 2024-06-01 12:06 | XMS_ITS | Continuity of Care Document ---
Author Organization [facility] Nando Escobar Lazaro lt Address [address] [place] [address]- Care Team Providers Care Ignition Specialist Name Role Phone Carrie MANAGEMENT ENGINEERKelly Primary Care Physician [facility] Date[facility]s): 08/26/22 - 09/25/22 [facility] Nando Escobar Adult [address] [place] [address]- Allergies, Adverse Reactions, Alerts Substance Reaction Severity [...] influenza virus vaccine, inactivated 04/16/10 Give n [id number] 12y+ bivalent booster vax 05/17/22 Recorded SARS-CoV-2 [...] 0 Refills, Maintenance, 09/05/22 9:14:00 EST, Tablet, [facility]/pharmacy #[id number], Partial fill upon patient request if the prescription is for a schedule II opioid drug.... Start Date: 09/05/22 Status: Ordered Azithromycin 5 Day Dose Pack 250 mg oral tablet See Instructions, Two tabs PO QD Day one, then one tab QD until gone, # 6 tablet, 0 Refills, Soft Stop, 09/17/22 14:22:00 EDT, Tablet, [facility]/pharmacy #[id number], Partial fill upon patient [...] Refills, Maintenance, 05/21/22 13:33:00 EST, [facility], 175, cm, 05/09/22 11:08:00 EDT, Height, 93, [...] Gm, 0 Refills, Maintenance, 09/05/22 9:15:00 EST, [place],[facility]/pharmacy #0843, Partial fill upon patient request if the prescription is for a schedule II opioid drug., 1 sprays Nares, Both 2 times a day, 175, c... Start Date: 09/05/22 Status: Ordered folic acid 1 mg oral tablet 1, tablet, By Mouth, Daily, # 30 tablet, Refills 5, Tot. Refills 5, Maintenance, 08/15/22 10:27:00 EST, Route to Pharmacy Electronically, [facility]/pharmacy #[id number], 175, cm, 07/17/22 10:33:00 EST, [...] 01/21/19 11:25:36 EDT, Route to Pharmacy Electronically, [id number], [facility]/pharmacy #[id number] Start Date: 01/21/19 Stop Date: 05/21/19 Status: Ordered lisinopril 40 mg oral tablet 1 tablet, By Mouth, Daily, # 90 tablet, 1 Refills, Maintenance, 05/07/22 14:29:00 EDT, [facility], 175, cm, 04/08/22 8:34:00 EDT, Height, 93, kg, 01/28/22 14:55:00 EDT, Dry Weight Start Date: 05/07/22 Status: Ordered Metoprolol Tartrate 50 mg oral tablet 1.5 tablet, By Mouth, 2 times a day, # 270 tablet, 1 Refills, Maintenance, 09/01/22 13:28:00 EST, [facility], 175, cm, 07/17/22 10:33:00 EST, Height, 93, kg, 01/28/22 14:55:00 EDT, Dry Weight Start Date: 09/01/22 Status: Ordered Nicotine 7 mg/24 hour patch 1 patch, Topically, Daily, # 30 patch, 0 Refills, Acute 09/26/22 8:00:00 EDT, 08/29/22 16:51:00 EST, Patch, [facility]/pharmacy #[id number], Partial fill upon patient [...] # 15 Unknown, 2 Refills, [facility], 175.2, cm, 05/27/21 11:26:00 EST, Height, 88.3, kg, 03/12/21 9:16:00 EDT, Dry Weight Start Date: 06/04/21 Status: Ordered Pen [place], 31 G x 5 mm BD Ultra [...] Refills, Maintenance, 05/21/22 13:33:00 EST, [facility], 175, cm, 05/09/22 11:08:00 EDT, Height, 93, kg, 01/28/22 14:55:00 EDT, Dry Weight Start Date: 05/21/22 Status: Ordered SEROquel 100 mg oral tablet 100 mg, 1, tablet, By Mouth, 2 times a day, PRN, # 1 tablet, Refills 2, Tot. Refills 2, Maintenance, Anxiety, 09/21/19 10:41:00 EDT, Route to Pharmacy Electronically, [facility]/pharmacy #[id number], 172, cm, 09/05/19 16:17:00 [...] 9 Unknown, 1 Refills, 01/21/22 15:39:00 EDT, [facility]/pharmacy #[id number], 175.2, cm, 12/18/21 14:10:00 EDT, Height... Start Date: 01/21/22 Status: Ordered Trulicity Pen 0.75 mg/0.5 mL subcutaneous solution 0.5 mL = 0.75 mg, Subcutaneous Injection, Every week, # 2.5 mL, 2 Refills, Maintenance, 04/08/22 9:12:00 EDT, Solution, [facility]/pharmacy #[id number], Partial fill upon patient request if the prescription is for a schedule II opioid drug., 175, cm, 04/08/22 8:34... Start Date: 04/08/22 Status: Ordered Ventolin HFA 108 mcg/inh inhalation aerosol with adapter 2 puffs, Inhalation, Every 4 hours, PRN for wheezing, for 180 days, # 1 each, 0 Refills, Acute 03/05/23 16:25:00 EDT, 09/06/22 16:25:00 EST, Aerosol, [facility]/pharmacy #[id number], Partial fill upon patient [...] 4, GFR 15-29 ml/min Confirmed Active ASHD; [place] 2012/stent circumflex vessel cath;abdelrahman 2018 3 Confirmed [...] 524 weeks therapy with sofosbuvir/weight based ribavirin 00757 inferolateral stent bare metal circumflex 7DR Molddoida [...] Team Personnel Name: Jeffrey Mccoy MD Position: [facility] Renal MD Member Role: Lifetime Consulting Physician Address: Address: [address] [place] [address] [facility] [place] [address]- Name: [place] Butler NP Position: [facility] PCO Associate Professional Member Role: PCP Address: Address: [address] [place] [id number]- Name: Kristin Mckenzie Position: [facility] Outreach Member Role: Lifetime Consulting Physician Name: Prieto Tobin RN Position: [facility] RN Member Role: Primary Care Nurse Name: Jonn Hui DO Position: [facility] Renal MD Member Role: Lifetime Consulting Physician Address: Address: [address] [place], [place] [address] [place] [address]- Name: Luis Angel Stephen RN Position: [facility] RN Member Role: Primary Care Nurse Name: Tamie Baird RN Position: [facility] RN Member Role: Primary Care Nurse Care Team Related Persons Name: CARLOS A BORDEN Address: home [address] [place] [address] Name: LEVI BORDEN Address: home [address] [place] [address]
--- OUTSIDE RECORDS SUMMARY | 2024-06-01 12:06 | XMS_ITS | Continuity of Care Document ---
Author Organization [facility] Address [address] [place] [address]- Care Team Providers [place] Nurse Name Role Phone Carrie Kelly RIVERA Primary Care Physician [phone] Encounter [facility] Date(s): 03/11/24 - 04/10/24 [facility] [address] [place] [id number]- [place] Allergies, Adverse Reactions, Alerts Substance Reaction Severity Status Bee Stings Active Immunizations Given and Recorded Vaccine Date Status Refusal Reason SARS-CoV-2(COVID-19)mRNA-LNP vac([id number]) 12/31/23 Recorded SARS-CoV-2(COVID-19)mRNA-LNP vac([id number]) 05/08/23 Recorded tetanus/diphtheria/pertussis, acel(Tdap) 10/15/23 Recorded tetanus/diphtheria/pertussis, [...] 02/03/23 Recorded zoster vaccine, inactivated 08/09/19 Recorded [id number] 12y+ bivalent booster vax 05/17/22 Recorded SARS-CoV-2 [...] adult vaccine 4 12/10/10 Given 1Result Comment: [id number] 2Result Comment: [id number] 3Admin Note: pt waited 10 mins post inj no adverse reaction noted.j a 4Admin Note: PT WAITED 10 MIN WITH NO ADVERSE REACTION. Medications albuterol 90 mcg/inh inhalation powder 1 puffs, Inhalation, Every 6 hours, PRN Wheezing/Shortness of Breath, # 1 each, 0 Refills, Maintenance, 02/15/24 13:38:00 EDT, Powder, [facility]/pharmacy #[id number], Partial fill upon patient request if the prescription is for a schedule II opioid drug., 1 puffs... Start Date: 02/15/24 Status: Ordered amLODIPine 10 mg oral tablet 10 mg, By Mouth, Daily, # 30 tablet, Refills 5, Tot. Refills 5, Maintenance, 03/11/24 11:59:00 EDT,Route to Pharmacy Electronically, [facility]/pharmacy #[id number], Partial fill upon patient request if the prescription is for a schedule II opioid drug., 168, cm,... Start Date: 03/11/24 Stop Date: 09/07/24 Status: Ordered aspirin 81 mg oral delayed release tablet 1 tablet, By Mouth, Daily, # 90 tablet, 1 Refills, Maintenance, 01/25/24 21:53:00 EDT, [facility]/pharmacy#[id number], 168, cm, 01/11/24 14:42:00 EDT, Height, 93, [...] 02/29/24 11:18:00 EDT, Route to Pharmacy Electronically, [facility]/pharmacy #[id number], Partial fill upon patient request if the prescriptio... Start Date: 02/29/24 Stop Date: 03/14/24 Status: Ordered D3 50 mcg (2000 intl units) oral capsule 1 capsule, By Mouth, Daily, # 90 capsule, 0 Refills, Maintenance, 12/09/23 14:09:00 EDT, [facility]/pharmacy #[id number], 168, cm, 10/27/23 15:34:00 EDT, Height, 93, kg, 01/28/22 14:55:00 EDT, Dry Weight Start Date: 12/09/23 Status: Ordered Daily Simone oral tablet 1 tablet, By Mouth, Daily, # 90 tablet, 1 Refills, Maintenance, 03/17/24 9:34:00 EDT, [facility]/pharmacy #[id number], 90, 1 tablet By Mouth Daily, 168, cm, 03/17/24 9:26:00 EDT, Height Start Date: 03/17/24 Status: Ordered dapagliflozin 10 mg oral tablet 1 tablet = 10 mg, By Mouth, Daily, # 30 tablet, 0 Refills, Maintenance, 01/11/24 14:46:00 EDT, Tablet, [facility]/pharmacy #[id number], Partial fill upon patient request if the prescription is for a schedule II opioid drug., 168, cm, 01/11/24 14:42:00 EDT, Height,... Start Date: 01/11/24 Status: Ordered Flonase Allergy Relief 50 mcg/inh nasal spray See Instructions, 1 sprays Daily in each nostril, # 16 Gm, 0 Refills, Maintenance, 02/15/24 13:39:00 EDT, [facility]/pharmacy #[id number], Partial fill upon patient request if the prescription is for a schedule II opioid drug., 168, cm, 02/03/24 10:41:00 EDT, Height Start Date: 02/15/24 Status: Ordered folic acid 1 mg oral tablet 1, tablet, By Mouth, Daily, # 90 tablet, Refills 1, Tot. Refills 1, Maintenance, 02/17/24 7:23:00 EDT, Route to Pharmacy Electronically, [facility]/pharmacy #[id number], 168, cm, 02/15/24 13:43:00 EDT, Height [...] 01/21/19 11:25:36 EDT, Route to Pharmacy Electronically, [id number], [facility]/pharmacy #[id number] Start Date: 01/21/19 Stop Date: 05/21/19 Status: Ordered lisinopril 10 mg oral tablet 10 mg, 1, tablet, By Mouth, Daily, for 30 days, DECREASED STRENGTH, # 30 tablet, Refills 0, Tot. Refills 0, Acute 04/16/24 9:47:00 EDT, 03/17/24 9:47:00 EDT, Route to Pharmacy Electronically, [facility]/pharmacy #[id number], 168, cm, 03/17/24 9:46:00 EDT, Height [...] tablet, 0 Refills, Maintenance, 03/17/24 14:24:00 EDT, [facility]/pharmacy #[id number], 168, cm, 03/17/24 9:46:00 EDT, Height Start Date: 03/17/24 Status: Ordered nitroglycerin 0.4 mg sublingual tablet See Instructions, DISSOLVE 1 UNDER TONGUE EVERY 5 MINUTES NEEDED FOR CHEST PAIN CALL MD AFTER TAKING 3 TABS IN TOTAL IN A DAY, # 100 tablet, 0 Refills, Maintenance, 10/03/22 15:53:00 EDT, [facility]/pharmacy #[id number], 175, cm, 09/17/22 13:59:00 EDT, Height,... Start Date: 10/03/22 Status: Ordered NovoLOG FlexPen 100 units/mL injectable solution See Instructions, INJECT 0-18 UNITS SUBCUTANEOUSLY WITH MEALS FOR SLIDING SCALES, # 15 Unknown, 2 Refills, 01/12/24 14:36:00 EDT, [facility]/pharmacy #[id number], MAX DAILY DOSE 54 UNITS, 168, [...] mL, 0 Refills, Maintenance, 02/02/24 15:28:00 EDT, [place], [facility]/pharmacy #[id number], Partial fill upon patient... Start Date: 02/02/24 Status: Ordered Pen [place], 31 G x 5 mm BD Ultra [...] Refills, Maintenance, 02/04/24 16:39:00 EDT, [id number], 168, cm, 02/03/24 10:41:00 EDT, Height Start [...] 4, GFR 15-29 ml/min Confirmed Active ASHD; [place] 2012/stent circumflex vessel [...] 524 weeks therapy with sofosbuvir/weight based ribavirin 69381 inferolateral stent bare metal circumflex 7DR Molddoverno [...] Team Personnel Name: Jeffrey Mccoy MD Position: [facility] Renal MD Member Role: Lifetime Consulting Physician Address: Address: [address] [place] [address] [address] [facility] [address] Name: Kelly Butler NP Position: [facility] PCO Associate Professional Member Role: PCP Address: Address: [address] [place] [id number] Name: Kristin Mckenzie Position: [facility] Outreach Member Role: Lifetime Consulting Physician Name: Fortunato Sin RN Position: [facility] RN Member Role: Primary Care Nurse Name: Nury Watts RN Position: [facility] RN Member Role: Primary Care Nurse Name: Antonia Mena NP Position: [facility] Associate Professional Member Role: Lifetime Consulting Provider Address: Address: [address] [place], [place] [address] [place], [place] [address] Name: Prieto Tobin RN Position: [facility] RN Member Role: Primary Care Nurse Name: Ashleigh Reynoso RN Position: [facility] RN Member Role: Primary Care Nurse Name: Jonn Hui DO Position: [facility] Renal MD Member Role: Lifetime Consulting Physician Address: Address: [address] [place] [address] [address] [facility] [place], [place] [address] Name: Zafar CALVO, Luis Angel Rojas Position: S RN Member Role: Primary Care Nurse Name: Brandan Nogueira RN Position: S RN Member Role: Primary Care Nurse Care Team Related Persons Name: CARLOS A BORDEN Address: home [address] [place] [address] Name: LEVI BORDEN Address: home [address] [place] [address]
--- OUTSIDE RECORDS SUMMARY | 2024-06-01 12:06 | XMS_ITS | Continuity of Care Document ---
Author Organization [facility] lt Address [address] [place] [address]- Care Team Providers Care Program And Research Coordinator Name Role Phone Carrie Kelly RIVERA Primary Care Physician [phone] Encounter [facility] Date(s): 02/03/24 - 02/10/24 [facility] Adult [address] [place] [address]- Encounter Diagnosis Acute bronchitis(Discharge Diagnosis) - 02/03/24 Chronic back pain DJD(Discharge Diagnosis) - 02/03/24 Attending Physician: Not on Staff, Attending MD Allergies, Adverse Reactions, Alerts Substance Reaction Severity Status Bee Stings Active Immunizations Given and Recorded Vaccine Date Status Refusal Reason SARS-CoV-2(COVID-19)mRNA-LNP vac(amp906) 12/31/23 Recorded SARS-CoV-2(COVID-19)mRNA-LNP vac(bsw401) 05/08/23 Recorded tetanus/diphtheria/pertussis, acel(Tdap) 10/15/23 Recorded tetanus/diphtheria/pertussis, [...] 02/03/23 Recorded zoster vaccine, inactivated 08/09/19 Recorded [id number] 12y+ bivalent booster vax 05/17/22 Recorded SARS-CoV-2 [...] adult vaccine 4 12/10/10 Given 1Result Comment: [id number] 2Result Comment: [id number] 3Admin Note: pt waited 10 mins post [...] 0 Refills, Maintenance, 02/02/24 15:25:00 EDT, [id number], with dose counter. any albuterol inhaler covered [...] day prn cough (Max 600 mg in j21-ruoz period), # 30 capsule, 0 Refills, Maintenance, [...] Refills, Maintenance, 11/10/23 22:03:00 EDT, [id number], 168, cm, 10/27/23 15:34:00 EDT, Height, 93, kg, 01/28/22 14:55:00 EDT, Dry Weight Start Date: 11/10/23 Status: Ordered folic acid 1 mg oral tablet 1, tablet, By Mouth, Daily, # 90 tablet, Refills 1, Tot. Refills 1, Maintenance, 07/03/23 10:01:00 EST, Route to Pharmacy Electronically, [facility]pharmacy #[id number], 168, cm, 05/01/23 14:45:00 EDT, Height, [...] 01/21/19 11:25:36 EDT, Route to Pharmacy Electronically, [id number], [facility]/pharmacy #[id number] Start Date: 01/21/19 Stop Date: 05/21/19 Status: Ordered lisinopril 40 mg oral tablet 1 tablet, By Mouth, Daily, # 90 tablet, 1 Refills, Maintenance, 01/26/24 9:20:00 EDT, [id number], 168, cm, 01/11/24 14:42:00 EDT, Height, 93, kg, 01/28/22 14:55:00 EDT, Dry Weight Start Date: 01/26/24 Status: Ordered methylphenidate 5 mg oral tablet TAKE 1 TABLET BY MOUTH THREE TIMES A DAY Start Date: 01/11/24 Status: Ordered Metoprolol Tartrate 50 mg oral tablet 1.5 tablet, By Mouth, 2 times a day, # 270 tablet, 1 Refills, Maintenance, 09/16/23 14:32:00 EDT, [facility]/pharmacy #[id number], 168, cm, 07/23/23 15:05:00 EST, Height, 93, kg, 01/28/22 14:55:00 EDT, Dry Weight Start Date: 09/16/23 Status: Ordered nitroglycerin 0.4 mg sublingual tablet See Instructions, DISSOLVE 1 UNDER TONGUE EVERY 5 MINUTES NEEDED FOR CHEST PAIN CALL MD AFTER TAKING 3 TABS IN TOTAL IN A DAY, # 100 tablet, 0 Refills, Maintenance, 10/03/22 15:53:00 EDT, [facility]/pharmacy #[id number], 175, cm, 09/17/22 13:59:00 EDT, Height,... [...] mL, 0 Refills, Maintenance, 02/02/24 15:28:00 EDT, [place], [id number], Partial fill upon patient... Start Date: 02/02/24 Status: Ordered Pen Temple, 31 G x 5 mm BD Ultra [...] Refills, Maintenance, 02/04/24 16:39:00 EDT, [id number], 168, cm, 02/03/24 10:41:00 EDT, Height Start [...] 4, GFR 15-29 ml/min Confirmed Active ASHD; [place] 2012/stent circumflex vessel cath;abdelrahman 2018 3 Confirmed [...] mild to moderate. 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 524 weeks therapy with sofosbuvir/weight based ribavirin 75560 inferolateral stent bare metal circumflex 7DR Molddoverno sx;Dr Schwartz 8hyperplatic polyp repeat screening in 2025 9repeat colonoscopy in 5 years Diagnosis Diagnosis Type Effective Dates Health Status Clinical Service Informant Acute bronchitis Discharge Diagnosis 02/03/24 Chronic back pain DJD Discharge Diagnosis 02/03/24 Vital Signs Most recent to oldest [Reference Range]: 1 2 Height 168.0 cm (02/03/24 10:41 AM) 168.0 cm (02/03/24 10:35 AM) Weight 87.7 kg (02/03/24 10:35 AM) Oxygen Saturation [94-100 %] 96 % (02/03/24 10:35 AM) Pulse Rate [55-90 bpm] 78 bpm (02/03/24 10:35 AM) Body Mass Index [18.5-24.99 kg/m2] 31.07 kg/m2 *>HHI* (02/03/24 10:35 AM) Blood Pressure [90-138/55-84 mm Hg] 151/ 72mm Hg *H* (02/03/24 10:41 AM) 151/73mm Hg *H* (02/03/24 10:35 AM) Temperature [96.8-100.4 DegF] 98.5 DegF (02/03/24 10:35 AM) Mode of Delivery (Oxygen) Room air (02/03/24 10:35 AM) Blood pressure sites Arm, left (02/03/24 10:41 AM) Arm, left (02/03/24 10:35 AM) Temperature Route Oral (02/03/24 10:35 AM) Social History Social History Type Response Smoking Status Former smoker, quit more than 30 days ago; Interested in cessation: No; Other: quit; Tobacco use times per day: prio 1/2-1 ppd; Total pack years: 38; Started at age: 12; Stopped at age: 63; entered on: 07/20/20 Sex Note * Sophia Farias: PERFORM Event Display: Patient Education/Instruction Authored Date: [id number] Ambulatory Adult Visit Summary [facility] [address] [address] Name: BRITTANY BORDEN : 1955?? Visit: 02/03/2024 10:29?? Ambulatory Visit Instructions ?? Your Care Team Primary Care Provider Kelly Butler NP? This Visit Provider Kelly Butler NP. Your Diagnosis Acute bronchitis Chronic back pain ??DJD Vitals Signs Temperature: 98.5 DegF Height: 168 cm Pulse Rate: 78 bpm Weight: 87.7 kg Systolic Blood Pressure:??151 mm Hg??High Body Mass Index:??31.07 kg/m2??Critical Diastolic Blood Pressure: 72 mm Hg Body surface area: 2.02 Oxygen Saturation: 96 % ?? What to do next Scheduled Follow-Up Appointments 2023 9:10 AM EDT ?? With: Kelly Butler NP Where: [facility] [address] [place] [address]- Status: Pending Future Orders PTH Intact - Once, *Est. 10/02/23 +/- 60 days, Order for Today?? Vitamin D 25 Hydroxy Level - Once, *Est. 10/02/23 +/- 60 days, Order for Today?? Comprehensive Metabolic Panel - Once, *Est. 03/29/24 +/- 60 days, Order for Today?? Direct LDL - Once, *Est. 10/02/23 +/- 60 days, Single or Recurring Future Order?? COVID-19 (2019 Novel Coronavirus) PCR - Routine, Nose, Patient is Symptomatic, Once, 02/03/24 10:56:00 EDT, Order for Today, [facility], Swab?? RSV and Influenza A/B Panel PCR (Flu and RSV A/B Panel PCR) - Routine, Nose, Once, Collected, 02/03/24 10:57:00 EDT, Order for Today, [facility], Nasopharyngeal?? Medications The list below reflects the information in our records and provided by you today along with any changes made during this visit. Please continue your medications until treatment is completed or stopped by your provider. If this is different from the information you have or there are other questions,please contact the prescribing provider. What How Much When Instructions New PredniSONE (predniSONE 20 mg oral tablet) 1 tab(s) Oral Twice a day Duration: 5 Days Pickup at [facility]/pharmacy #[id number] Unchanged Acetaminophen (acetaminophen 325 mg oral tablet) 2 tab(s) Oral 3 times a day as needed for as needed for fever, pain Do not take more than 6 pills in a 24-hour period ?? Unchanged Albuterol (Albuterol (Eqv-Ventolin HFA) 90 mcg/ inh inhalation aerosol) 2 puff(s) Inhalation Every 4 hours as needed for cough, SOB, wheeze Unchanged Aspirin (aspirin 81 mg oral delayed release tablet) 1 tab(s) Oral Daily Unchanged Benzonatate (benzonatate 100 mg oral capsule) See instructions 1-2 capsule(s) By Mouth up to 3 times a day prn cough (Max 600 mg in a 24-hour period), As needed for Cough ?? Unchanged Cholecalciferol (D3 50 mcg (2000 intl units) oral capsule) 1 capsule Oral Daily Unchanged dapagliflozin (dapagliflozin 10 mg oral tablet) 1 tab(s) Oral Daily Unchanged Diltiazem (DilTIAZem (Eqv-Cardizem CD) 180 mg/ 24 hours oral capsule, extended release) 1 capsule Oral Daily Unchanged Durable Medical Equipment (Aerochamber) See instructions always use with inhaler ?? Unchanged Durable Medical Equipment (Freestyle Lite Lancets) See instructions Check blood sugars three times a day DM Type 2 E11.9 ?? Unchanged Durable Medical Equipment (Freestyle Lite Test Strips) See instructions Check blood sugars three times a day DM Type 2 E11.9 ?? Unchanged Durable Medical Equipment (Pen Temple, 31 G x 5 mm BD Ultra Fine III) See instructions Use TID DM Type 2 on insulin E11.9 ?? Unchanged Folic Acid (folic acid 1 mg oral tablet) 1 tab(s) Oral Daily Unchanged Insulin Aspart (NovoLOG FlexPen 100 units/ mL injectable solution) See instructions INJECT 0-18 UNITS SUBCUTANEOUSLY WITH MEALS FOR SLIDING SCALES ?? Unchanged Lamotrigine (LaMICtal 100 mg oral tablet) 1 tab(s) Oral Twice a day Duration: 30 Days Unchanged Lisinopril (lisinopril 40 mg oral tablet) [...] 3 days in a row ?? Unchanged Pregabalin (pregabalin 75 mg oral capsule) 1 capsule Oral Daily Duration: 30 Days APPT NEEDED FOR FURTHER REFILLS ?? Unchanged Quetiapine (SEROquel 300 mg oral tablet) 1 tab(s) Oral Daily at Bedtime Unchanged Rosuvastatin (rosuvastatin 20 mg oral tablet) 1 tab(s) Oral Daily Pharmacy Information [facility]/pharmacy #[id number]: [address], [place] [id number] [phone] Test Performed Below is a partial list of the tests performed during your Visit. You may have had other tests and procedures not included in this list. Please discuss all test results with your provider. COVID-19 (2019 Novel Coronavirus) PCR?-- Results Pending -- Flu and RSV A/B Panel PCR?-- Results Pending -- Medications and Immunizations Administered Medications Given During Visit No medications given during this visit.?? Allergies (NKA means No Known Allergies) Bee Stings Education Materials Below is the list of Educational Leaflet Providered with your Visit summary. WebMD Ignite Patient Education - Bronchitis, No Antibiotics (Adult)?? Web[employer] Ignite Patient Education - Acute Bronchitis?? Common Emergency Awareness Tips IS IT A [...] are strongly encouraged to quit. Please call [facility] Link at [phone] or [phone] ([phone]) or log in to [email or web address] for referrals to smoking cessation programs. ?? The National Suicide Prevention Hotline is available 26/01 if you or someone you know needs to find a reason to keep living. By calling 7-888-644-Tongxue (6818) you'll be connected to a skilled, trained counselor at a crisis center in your area. [facility] Portal You can view and manage your care through the patient portal or by using a health care [place] of your choosing. [employer] is a website that allows you to securely view your medical information including your hospital discharge summary, office visit summaries, medications and follow-up visits. You can also request appointments, renew medications, and request access to your medical information using a health care [place] of your choosing, or just ask a question. You can enroll at [email or web address] or register during your next office visit. [facility], in keeping with [facility] guidance, no longer requires face masks [...] primary care provider, you may find a [facility] provider by calling [facility] Link at [phone]. * Carrie RIVERA, Kelly Lopez: PERFORM Event Display: Patient Education Leaflets Authored Date: Bronchitis, No Antibiotics (Adult) ?? [id number] Bronchitis, No Antibiotics (Adult) Bronchitis is inflammation and swelling of the air passages (bronchial tubes) in your lungs. This is often caused by an infection. Your bronchitis was caused by a virus.??Symptoms include a dry, hacking cough that is worse at night. The cough may bring up yellow-green mucus. You may also feel shortof breath or wheeze. Other symptoms may include tiredness, chest discomfort, fever, and chills. This illness can be spread to other people in the first few days. It is spread through the air by coughing and sneezing. It is also spread by direct contact. This means touching the sick person and then touching your own eyes, nose, or mouth. Bronchitis that is caused by a virus is often not treated with antibiotic medicine. Instead, medicines may be given to help relieve symptoms. Symptoms can last up to 2 weeks. The cough may last much longer. Home care Follow these guidelines when caring for yourself at home: ??? If your symptoms are severe, rest at home for the first 2 to 3 days. When you go back to your daily tasks, don't let yourself get too tired. ??? Do not smoke. Stay away from secondhand smoke. ??? You may use axik-ewl-oevuwwp medicine to control fever or pain. Or use another pain medicine as prescribed.??If you have chronic liver or kidney disease or have ever had a stomach ulcer or bleeding in your stomach or intestines, talk with your healthcare provider before using these medicines. Also talk to your provider if you are taking medicine to prevent blood clots. Aspirin should never be taken by anyone under age 18 who has a virus or fever. It may cause severe liver or brain damage. ??? Your body needs a lot of fluids now. Drink 6 to 8 glasses of fluids per day. This includes water, soft drinks, sports drinks, juices, tea, or soup. Extra fluids will help loosen mucus in your nose and lungs. ??? Your appetite may be low. A light diet is fine. ??? Sans-zck-vhtqchk cough, cold, and sore-throat medicines will not shorten the honey gth of the illness. But they may help to reduce your symptoms. Don't use decongestants if you have high blood pressure. ?? Follow-up care Follow up with your healthcare provider, or as advised. If you had an X-ray or ECG (electrocardiogram), a specialist will review it. You will be told of any results that may affect your care. Ask your healthcare provider about the pneumococcal vaccines and a yearly flu shot. There are 2 kinds of pneumococcal vaccines. You may need both. You???re at higher risk of lung infection if any of these apply to you: ??? You are age 65 or older ??? You have a chronic lung disease ??? You have condition that affects your immune system ??? You smoke ?? When to get medical care Call your healthcare provider right away if you have any of these: ??? Fever of 100.4??F (38??C) orhigher ??? Coughing up more mucus ??? Facial pain or ear pain ??? Mild weakness, drowsiness, headache, or a stiff neck ?? Call 911 Call 911 if any of these occur: ??? Coughing up blood ??? Weakness, drowsiness, headache, or stiff neck that get worse ??? Trouble breathing, wheezing, or pain with breathing ??? Lips or skin looks blue, purple, or haas in color ??? Feeling of doom ?? Last Reviewed Date: 2021 ?? [employer]. All rights reserved. This information is not intended as a substitute for professional medical care. Always follow your healthcare professional's instructions. ?? * Carrie RIVERA, Kelly Lopez: PERFORM Event Display: Patient Education Leaflets Authored Date: [id number] Acute Bronchitis ?? 17851 Acute Bronchitis Your healthcare provider has told you that you have acute bronchitis. Bronchitis is an infection orinflammation of the airways in the lungs (bronchial tubes). Normally, air moves easily in and out of the airways. Bronchitis narrows the airways. This makes it harder for air to flow in and out of the lungs. This causes symptoms, such as shortness of breath, coughing up yellow or green mucus, and wheezing. Bronchitis can be acute or chronic. Acute means it happens quickly and goes away in a short time. Chronic means a condition lasts a long time and often comes back. Most people with acute bronchitis get better in 1 to 2 weeks.?? What causes acute bronchitis? Acute bronchitis is usually caused by a virus, such as a cold or the flu. In rare cases, it may be caused by bacteria. Certain factors make it more likely for a cold or flu to turn into bronchitis. These include being very young, being elderly, having a heart or lung problem, or having a weak immune system. Smoking also makes bronchitis more likely. When bronchitis develops, the airways become swollen. The airways may also become infected with bacteria. This is known as a secondary infection. ?? Symptoms of acute bronchitis Symptoms can include: ??? Coughing with mucus ??? Wheezing ??? Feeling short of breath ??? Chest pain ??? Fever ??? Feeling tired (fatigue) ?? Diagnosing acute bronchitis Your healthcare provider will ask about your symptoms and health history. They will give you a physical exam. This will include listening to your lungs while you breathe. You may have a chest X-ray to look for a lung infection (pneumonia) if you have had a fever. You may also have a blood test or nose or throat swab to check for infection. ?? Treating acute bronchitis Bronchitis usually goes away in 1 to 2 weeks without treatment. You can help feel better by: ??? Taking medicine as directed. Talk to your healthcare provider before taking any rpjm-pae-awpjxps medicines (OTC). Some OTC medicines help relieve inflammation in your bronchial tubes. They can also thinmucus. This makes it easier to cough up. Your healthcare provider may prescribe an inhaler to help open up the bronchial tubes. Take any antibiotic prescribed exactly as directed. Most of the time,??acute bronchitis??is caused by a viral infection. Antibiotics are usually not prescribed for viral infections. ??? Ask your provider about how much fluid you should drink. Drinking plenty of fluids, such as water, juice, or warm soup can thin mucus so that you can cough it up and breathe more easily. Fluids can also prevent dehydration. However, if you have certain medical conditions, such as severe kidney disease or heart problems, you may need to limit how much you drink. ??? Using a humidifier. This can help reduce coughing. ??? Getting plenty of rest ??? Not smoking. Also, don't let anyoneelse smoke in your home. In public places, move away from secondhand smoke. ?? Recovery and follow-up Follow up with your healthcare provider. You will likely feel better in 1 to 2 weeks. But you may have a dry cough for a longer time. Let your provider know if you still have symptoms other than a dry cough after 2 weeks. Tell them if you get bronchial infections often. ?? Self-care tips To get relief from your symptoms and prevent bronchitis: ??? Stop smoking. Stopping smoking is the most important step you can take to treat bronchitis. If you need help stopping smoking, talk with your healthcare provider. ??? Stay away from secondhand smoke and other irritants. Try to stay away from smoke, chemicals, fumes, and dust. Don???t let anyone smoke in your home. Stay indoors on smoggydays. ??? Prevent lung infections. Ask your healthcare provider about vaccines, such as for the fluand pneumonia. Take steps to prevent colds and other lung infections. Stay away from crowds during cold and flu season. Stay away from others who are sick. ??? Wash your hands well. Wash your hands often with soap and water for at least 20 seconds. Use an alcohol-based hand roving changer with at least 60% alcohol when you can???t wash your hands. ?? When to call your healthcare provider Call the healthcare provider if you have any of these: ??? Fever of 100.4??F ( 38.0??C) or higher, or as directed by your healthcare provider ??? Symptoms that get worse, or new symptoms ??? Symptomsthat don???t start to get better in 1 week ?? Call 911 Call 911 if you have: ??? Trouble breathing that doesn't get better with treatment ??? Skin, lips, or nails that look blue, haas, or pale ?? Last Reviewed Date: 2023 ?? 1982-8925 [employer]. All rights reserved. This information is not intended as a substitute for professional medical care. Always follow your healthcare professional's instructions. ?? Patient Care team information Care Team Personnel Name: Jeffrey Mccoy MD Position: [facility] Renal MD Member Role: Lifetime Consulting Physician Address: Address: [address] [place] [address] [address] [facility] [place] [address]- Name: Kelly Butler NP Position: [facility] PCO Associate Professional Member Role: PCP Address: Address: [address] [place] [address]- Name: Kristin Mckenzie Position: [facility] Outreach Member Role: Lifetime Consulting Physician Name: Prieto Tobin RN Position: [facility] RN Member Role: Primary Care Nurse Name: Jonn Hui DO Position: [facility] Renal MD Member Role: Lifetime Consulting Physician Address: Address: [address] [place], [place] [address] [place], [place] [address] Name: Luis Angel Stephen RN Position: [facility] RN Member Role: Primary Care Nurse Care Team Related Persons Name: CARLOS A BORDEN Address: home [address] [place] [address] Name: LEVI BORDEN Address: home [address] [place] [address]
--- OUTSIDE RECORDS SUMMARY | 2024-06-01 12:06 | XMS_ITS | Continuity of Care Document ---
Author Organization [facility] Nando Escobar Lazaro lt Address [address] [place] [address]- Care Team Providers Care Assistant Cross Country Coach Name Role Phone Aylin HICKMAN, Ben Willis Primary Care Physician [phone] Encounter [facility] Date(s): 11/26/21 - 12/26/21 [facility] Nando Escobar Adult [address] [place] [address]- Allergies, Adverse Reactions, Alerts Substance Reaction Severity [...] 06/24/21 12:51:00 EST, Route to Pharmacy Electronically, [facility]/pharmacy #[id number], 175.2, cm, 06/07/21 9:51:00 EST, Height, 88.3, kg, 03/12/21 9:16:00 EDT, Dry... Start Date: 06/24/21 Status: Ordered Daily Simone oral tablet 1 tablet, By Mouth, Daily, # 30 tablet, 5 Refills, Maintenance, 07/29/21 13:53:00 EST, Tablet, [facility]/pharmacy #0843, 1 tablet By Mouth Daily,x30 days, 175.2, cm, 06/07/21 9:51:00 EST, Height, 88.3, kg,03/12/21 9:16:00 EDT, Dry Weight Start Date: 07/29/21 Stop Date: 01/25/22 Status: Ordered docusate sodium 100 mg oral capsule 1 capsule, By Mouth, 2 times a day, PRN NEEDED FOR CONSTIPATION, # 60 capsule, 5 Refills, Maintenance, 06/05/21 15:57:00 EST, [facility]/pharmacy #0843, 175.2, cm, 05/27/21 11:26:00 EST, Height, 88.3, kg, 03/12/21 9:16:00 EDT, Dry Weight Start Date: 06/05/21 Status: Ordered folic acid 1 mg oral tablet 1, tablet, By Mouth, Daily, # 30 tablet, Refills 5, Tot. Refills 5, Maintenance, 07/25/21 15:59:00 EST, Route to Pharmacy Electronically, [facility]/pharmacy #0843, 175.2, cm, 06/07/21 9:51:00 [...] tablet, 5 Refills, Maintenance, 06/05/21 15:57:00 EST, [facility]/pharmacy #0843, 175.2, cm, 05/27/21 11:26:00 EST, Height, 88.3, kg, 03/12/21 9:16:00 EDT, Dry Weight Start Date: 06/05/21 Status: Ordered LaMICtal 100 mg oral tablet 100 mg, 1, tablet, By Mouth, 2 times a day, # 60 tablet, Refills 3, Tot. Refills 3, Maintenance, 01/21/19 11:25:36 EDT, Route to Pharmacy Electronically, [id number], [facility]/pharmacy #[id number] Start Date: 01/21/19 Stop Date: 05/21/19 Status: Ordered lisinopril 40 mg oral tablet 1 tablet = 40 mg, By Mouth, Daily, # 30 tablet, 3 Refills, Maintenance, 09/17/21 10:50:00 EDT, Tablet, [facility]/pharmacy #0843, Partial fill upon patient request if the prescription is for a schedule II opioid drug., 175.2, cm, 07/31/21 11:20:00 ESTReji... Start Date: 09/17/21 Status: Ordered Metoprolol Tartrate 50 mg oral tablet 1.5 tablet, By Mouth, 2 times a day, # 270 tablet, 0 Refills, [facility] STORE 02568, 175.2, cm, 11/15/21 11:18:00 EDT, Height, 88.3, [...] # 15 Unknown, 2 Refills, [facility], 175.2, cm, 05/27/21 11:26:00 EST, Height, 88.3, kg, 03/12/21 9:16:00 EDT, Dry Weight Start Date: 06/04/21 Status: Ordered Pen [place], 31 G x 5 mm BD Ultra [...] 5 Refills, Maintenance, 06/10/21 12:32:00 EST, Capsule, [facility]/pharmacy #0843, 175.2, cm, 06/07/21 9:51:00 EST, Height, 88.3, kg, 03/12/21 9:16:00 EDT, Dry Weight Start Date: 06/10/21 Status: Ordered rosuvastatin 20 mg oral tablet 1 tablet, By Mouth, Daily, # 90 tablet, 1 Refills, Maintenance, 08/15/21 14:24:00 EST, [facility]/pharmacy#0843, 175.2, cm, 07/31/21 11:20:00 EST, Height, 88.3, kg, 03/12/21 9:16:00 EDT, Dry Weight Start Date: 08/15/21 Status: Ordered SEROquel 100 mg oral tablet 100 mg, 1, tablet, By Mouth, 2 times a day, # 60 tablet, Refills 2, Tot. Refills 2, Maintenance, 09/21/19 10:41:00 EDT, Route to Pharmacy Electronically, [facility]/pharmacy #0843, 172, cm, 09/05/19 16:17:00 [...] 3 Refills, Maintenance, 12/18/21 14:33:00 EDT, Suspension, [facility]/pharmacy #0843, 1 drops Eyes, Both [...] # 9 Unknown, 1 Refills, [facility], 175.2, cm, 07/31/21 11:20:00 EST, Height, 88.3, [...] # 30 capsule, 5 Refills, [facility], 175.2, cm, 11/15/21 11:18:00 EDT, Height, 88.3, kg, 03/12/21 9:16:00 EDT, Dry Weight Start Date: 11/17/21 Status: Ordered Problem List Condition Effective Dates Status Health Status Inform ant Bipolar disorder(Confirmed) Active Cervical spondylosis(Confirmed) Active Chronic back pain DJD(Confirmed) Active Glomerulonephritis,mesangial proliferative/fibrillary(Confirmed) 1, 2 Active Chronic renal failure, stage 4 (severe)(Confirmed) Active ASHD; [place] 2012/stent circumfl ex vessel cath;abdelrahman 2018(Confirmed) 3 [...] 524 weeks therapy with sofosbuvir/weight based ribavirin 71016 inferolateral stent bare metal circumflex 7DR Marissa [...]
--- OUTSIDE RECORDS SUMMARY | 2024-06-01 12:06 | XMS_ITS | Continuity of Care Document ---
Author Organization [facility] Address [address] [place] [address]- Care Team Providers Care Bankruptcy Paralegal Name Role Phone Carrie HANDBAG FRAMER, Kelly Lopez Primary Care Physician Encounter [facility] [place] Date(s): 01/31/22 - 05/31/22 [facility] [address] [place] [address]- Attending Physician: Olivier HICKMAN, Kaden Rojas Admitting Physician: Kaden Aguayo MD Referring Physician: Ben Viera MD Allergies, [...] 5 Refills, Maintenance, 02/11/22 11:48:00 EDT, Tablet, [facility]/pharmacy #0843, 1 tablet By Mouth Daily,x30 days, 175, cm, 01/29/22 15:12:00 EDT, Height, 93, kg, 01/28/22 14:55:00 EDT, Dry Weight Start Date: 02/11/22 Stop Date: 08/10/22 Status: Ordered DilTIAZem (Eqv-Cardizem CD) 180 mg/24 hours oral capsule, extended release 1 capsule, By Mouth, Daily, # 90 capsule, 0 Refills, Maintenance, 05/21/22 13:33:00 EST, [facility] STORE 64633, 175, cm, 05/09/22 11:08:00 EDT, Height, 93, kg, 01/28/22 14:55:00 EDT, Dry Weight Start Date: 05/21/22 Status: Ordered docusate sodium 100 mg oral capsule 1 capsule, By Mouth, 2 times a day, PRN NEEDED FOR CONSTIPATION, # 60 capsule, 5 Refills, Maintenance, 06/05/21 15:57:00 EST, [facility]/pharmacy #0843, 175.2, cm, 05/27/21 11:26:00 EST, Height, 88.3, kg, 03/12/21 9:16:00 EDT, Dry Weight Start Date: 06/05/21 Status: Ordered folic acid 1 mg oral tablet 1, tablet, By Mouth, Daily, # 30 tablet, Refills 5, Tot. Refills 5, Maintenance, 04/01/22 21:30:00 EDT, Route to Pharmacy Electronically, [facility]/pharmacy #[id number], 175, cm, 02/14/22 10:10:00 EDT, [...] 01/21/19 11:25:36 EDT, Route to Pharmacy Electronically, [id number], [facility]/pharmacy #[id number] Start Date: 01/21/19 Stop Date: 05/21/19 Status: Ordered lisinopril 40 mg oral tablet 1 tablet, By Mouth, Daily, # 90 tablet, 1 Refills, Maintenance, 05/07/22 14:29:00 EDT, [facility] STORE 79157, 175, cm, 04/08/22 8:34:00 EDT, Height, 93, kg, 01/28/22 14:55:00 EDT, Dry Weight Start Date: 05/07/22 Status: Ordered Metoprolol Tartrate 50 mg oral tablet 1.5 tablet, By Mouth, 2 times a day, # 270 tablet, 0 Refills, 05/21/22 10:19:00 EST, [facility]/pharmacy #[id number], 175, cm, 05/09/22 11:08:00 EDT, Height, 93, kg, 01/28/22 14:55:00 EDT, Dry Weight Start Date: 05/21/22 Status: Ordered nicotine 14 mg/24 hr transdermal film, extended release 1 patch, Topically, Daily, for 30 days, # 30 patch, 1 Refills, Acute 06/27/22 15:44:00 EST, 04/28/22 15:44:00 EDT, Patch, [facility]/pharmacy #0843, 1 patch Topically Daily,x30 days, [...] 0 Refills, Maintenance, 12/31/21 17:21:00 EDT, [facility]/pharmacy #0843, 175.2, cm, 12/18/21 14:10:00 EDT, Height... Start Date: 12/31/21 Status: Ordered NovoLOG FlexPen 100 units/mL injectable solution See Instructions, INJECT 0-18 UNITS SUBCUTANEOUSLY WITH MEALS FOR SLIDING SCALES, # 15 Unknown, 2 Refills, [facility] STORE 72115, 175.2, cm, 05/27/21 11:26:00 EST, Height, 88.3, kg, 03/12/21 9:16:00 EDT, Dry Weight Start Date: 06/04/21 Status: Ordered Pen [place], 31 G x 5 mm BD Ultra [...] Refills, Maintenance, 04/08/22 9:12:00 EDT, Capsule, [facility]/pharmacy #0843, 175, cm, 04/08/22 8:34:00 EDT, Height, 93, kg, 01/28/22 14:55:00 EDT, Dry Weight Start Date: 04/08/22 Status: Ordered rosuvastatin 20 mg oral tablet 1 tablet, By Mouth, Daily, # 90 tablet, 1 Refills, Maintenance, 05/21/22 13:33:00 EST, [facility], 175, cm, 05/09/22 11:08:00 EDT, Height, 93, kg, 01/28/22 14:55:00 EDT, Dry Weight Start Date: 05/21/22 Status: Ordered SEROquel 100 mg oral tablet 100 mg, 1, tablet, By Mouth, 2 times a day, PRN, # 1 tablet, Refills 2, Tot. Refills 2, Maintenance, Anxiety, 09/21/19 10:41:00 EDT, Route to Pharmacy Electronically, [facility]/pharmacy #[id number], 172, cm, 09/05/19 16:17:00 [...] 3 Refills, Maintenance, 04/08/22 9:09:00 EDT, Suspension, [facility]/pharmacy #0843, 1 drops Eyes, Both 2 [...] failure, stage 4 (severe) Confirmed Active ASHD; [place] 2012/stent circumflex vessel [...] mild to moderate. 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 524 weeks therapy with sofosbuvir/weight based ribavirin 96638 inferolateral stent bare metal circumflex 7DR Molddoverno [...] Role: Lifetime Consulting Physician Address: Address: [address] [place] [address] [facility] [place] [address]- Name: Kelly Butler NP Position: [facility] PCO Associate Professional Member Role: PCP Address: Address: [address] [place] [address]- Name: Kristin Mckenzie Position: [facility] Outreach Member Role: Lifetime Consulting Physician Name: Prieto Tobin RN Position: S RN Member Role: Primary Care Nurse Name: Jonn Hui DO Position: [facility] Renal MD Member Role: Lifetime Consulting Physician Address: Address: [address] [place], [place] [address] [place], [place] [address] Name: Zafar CALVO, Luis Angel Rojas Position: S RN Member Role: Primary Care Nurse Name: Tamie Baird RN Position: S RN Member Role: Primary Care Nurse Care Team Related Persons Name: CARLOS A BORDEN Address: home [address] [place] [address] Name: LEVI BORDEN Address: home [address] [place] [address]
--- OUTSIDE RECORDS SUMMARY | 2024-06-01 12:06 | XMS_ITS | Continuity of Care Document ---
Author Organization [facility] Address [address] [place] [address]- Care Team Providers Care Press Operator Helper Name Role Phone Carrie Kelly RIVERA Primary Care Physician [phone] Encounter [facility] [place] Date(s): 07/18/22 - 09/04/[address] [address] Attending Physician: Ben Viera MD Admitting Physician: [...] influenza virus vaccine, inactivated 04/16/10 Give n [id number] 12y+ bivalent booster vax 05/17/22 Recorded SARS-CoV-2 (COVID-19) mRNA-1273 vaccine 10/10/21 R ecorded SARS-CoV-2 (COVID-19) mRNA BNT-162b2 vac 04/29/21 Recorded SARS-CoV-2 (COVID-19) mRNA BNT-162b2 vac 10/10/20 Recorded SARS-CoV-2 (COVID-19) mRNA BNT-162b2 vac 09/19/20 Recorded Influenza Virus Vaccine (oldterm) 03/05/20 Recorde d zoster vaccine, inactivated 2/4/20 Recorded pneumococcal 23-valent vaccine 08/09/19 Recorded pneumococcal [...] tablet, 3 Refills, Maintenance, 09/30/21 12:28:00 EDT, [facility]/pharmacy#0843, 175.2, cm, 09/20/21 8:36:00 EDT, [...] 5 Refills, Maintenance, 08/15/22 10:27:00 EST, Tablet, [facility]/pharmacy #0843, 1 tablet By Mouth [...] capsule, 0 Refills, Maintenance, 05/21/22 13:33:00 EST, [facility] STORE 70921, 175, cm, 05/09/22 11:08:00 EDT, Height, 93, kg, 01/28/22 14:55:00 EDT, Dry Weight Start Date: 05/21/22 Status: Ordered docusate sodium 100 mg oral capsule 1 capsule, By Mouth, 2 times a day, PRN NEEDED FOR CONSTIPATION, # 60 capsule, 5 Refills, Maintenance, 07/18/22 11:59:00 EST, [facility]/pharmacy #[id number], 175, cm, 07/17/22 10:33:00 EST, Height, 93, kg, 01/28/22 14:55:00 EDT, Dry Weight Start Date: 07/18/22 Status: Ordered folic acid 1 mg oral tablet 1, tablet, By Mouth, Daily, # 30 tablet, Refills 5, Tot. Refills 5, Maintenance, 08/15/22 10:27:00 EST, [id number] 175, cm, 07/17/22 10:33:00 EST, [...] 01/21/19 11:25:36 EDT, Route to Pharmacy Electronically, [id number], [facility]/pharmacy #[id number] Start Date: 01/21/19 Stop Date: 05/21/19 Status: Ordered lisinopril 40 mg oral tablet 1 tablet, By Mouth, Daily, # 90 tablet, 1 Refills, Maintenance, 05/07/22 14:29:00 EDT, [facility], 175, cm, 04/08/22 8:34:00 EDT, Height, 93, kg, 01/28/22 14:55:00 EDT, Dry Weight Start Date: 05/07/22 Status: Ordered Metoprolol Tartrate 50 mg oral tablet 1.5 tablet, By Mouth, 2 times a day, # 270 tablet, 1 Refills, Maintenance, 09/01/22 13:28:00 EST, [facility] STORE 37514, 175, cm, 07/17/22 10:33:00 EST, Height, 93, kg, 01/28/22 14:55:00 EDT, Dry Weight Start Date: 09/01/22 Status: Ordered Nicotine 7 mg/24 hour patch 1 patch, Topically, Daily, # 30 patch, 0 Refills, Acute 09/26/22 8:00:00 EDT, 08/29/22 16:51:00 EST, Patch, [facility]/pharmacy #[id number], Partial fill upon patient [...] 0 Refills, Maintenance, 12/31/21 17:21:00 EDT, [facility]/pharmacy #0843, 175.2, cm, 12/18/21 14:10:00 EDT, Height... Start Date: 12/31/21 Status: Ordered NovoLOG FlexPen 100 units/mL injectable solution See Instructions, INJECT 0-18 UNITS SUBCUTANEOUSLY WITH MEALS FOR SLIDING SCALES, # 15 Unknown, 2 Refills, [facility] STORE 30981, 175.2, cm, 05/27/21 11:26:00 EST, Height, 88.3, kg, 03/12/21 9:16:00 EDT, Dry Weight Start Date: 06/04/21 Status: Ordered Pen [place], 31 G x 5 mm BD Ultra [...] capsule, 2 Refills, Maintenance, 08/07/22 12:55:00EST, Capsule, [facility]/pharmacy #0843, 175, cm, 07/17/22 10:33:00 EST, Height, 93, kg, 01/28/22 14:55:00EDT, Dry Weight Start Date: 08/07/22 Status: Ordered rosuvastatin 20 mg oral tablet 1 tablet, By Mouth, Daily, # 90 tablet, 1 Refills, Maintenance, 05/21/22 13:33:00 EST, [facility], 175, cm, 05/09/22 11:08:00 EDT, Height, 93, kg, 01/28/22 14:55:00 EDT, Dry Weight Start Date: 05/21/22 Status: Ordered SEROquel 100 mg oral tablet 100 mg, 1, tablet, By Mouth, 2 times a day, PRN, # 1 tablet, Refills 2, Tot. Refills 2, Maintenance, Anxiety, 09/21/19 10:41:00 EDT, Route to Pharmacy Electronically, [facility]/pharmacy #[id number], 172, cm, 09/05/19 16:17:00 EST, [...] 524 weeks therapy with sofosbuvir/weight based ribavirin 03355 inferolateral stent bare metal circumflex 7DR Molddoverno [...] Role: Lifetime Consulting Physician Address: Address: [address] [place] [address] [facility] [place] [address]- Name: Kelly Butler NP Position: [facility] PCO Associate Professional Member Role: PCP Address: Address: [address] [place] [address]- Name: Kristin Mckenzie Position: [facility] Outreach Member Role: Lifetime Consulting Physician Name: Prieto Tobin RN Position: [facility] RN Member Role: Primary Care Nurse Name: Jonn Hui DO Position: [facility] Renal MD Member Role: Lifetime Consulting Physician Address: Address: [address] [place], [place] [address] [place] [address]- Name: Luis Angel Stephen RN Position: [facility] RN Member Role: Primary Care Nurse Name: Tamie Baird RN Position: [facility] RN Member Role: Primary Care Nurse Care Team Related Persons Name: CARLOS A BORDEN Address: home [address] [place] [address] UM Name: LEVI BORDEN Address: home [address] [place] [address]
--- OUTSIDE RECORDS SUMMARY | 2024-06-01 12:06 | XMS_ITS | Continuity of Care Document ---
Author Organization [facility] Address [address] [place] [address]- Care Team Providers Care Cup Trimming Machine Operator Name Role Phone Ben Viera MD Primary Care Physician Encounter [facility] [place](s): 11/20/20 - 03/20/21 [facility] [address] [place] [address]- Attending Physician: Jeffrey Leon MD Admitting Physician: [...] 11 Refills, Maintenance, 06/26/20 12:19:00 EST, [facility] STORE 26465, 175, cm, 06/25/20 16:11:00 EST, Height, 83.6, [...] Refills, Maintenance, 01/22/21 12:45:00 EDT, [facility], 175.3, cm, 01/21/21 12:58:00 EDT, Height, 83.6, kg, 04/23/20 17:46:00 EDT, Dry Weight Start Date: 01/22/21 Status: Ordered folic acid 1 mg oral tablet 1, tablet, By Mouth, Daily, # 30 tablet, Refills 5, Tot. Refills 0, Maintenance, 01/18/21 14:44:00 EDT, Route to Pharmacy Electronically, [facility], 175, cm, 12/24/20 11:20:00 EDT, Height, 83.6, [...] 01/21/19 11:25:36 EDT, Route to Pharmacy Electronically, [id number], [facility]/pharmacy #[id number] Start Date: [...] 11:46:00 EDT, [facility] STORE 09781, 175, cm, 09/21/20 11:29:00 EDT, Height, 83.6, kg, 04/23/20 17:46:00 EDT, Dry Weight Start Date: 11/16/20 Status: Ordered nicotine 2 mg oral transmucosal lozenge See Instructions, USE 1 LOZENGE UP TO EVERY 1 HOUR NEEDED FOR 10 DAYS, # 162 lozenge, 1 Refills,Acute, [facility] STORE 91294, 10, USE 1 LOZENGE UP TO EVERY [...] 9:13:... Start Date: 02/01/20 Status: Ordered Pen [place], 31 G x 5 mm BD Ultra [...] 2 Active Cigarette smoker(Confirmed) Active ASHD; [place] 2013/stent circumfl ex vessel cath;abdelrahman 2018(Confirmed) 3 Active [...] 524 weeks therapy with sofosbuvir/weight based ribavirin 43532 inferolateral stent bare metal circumflex 7DR Marissa [...]
--- OUTSIDE RECORDS SUMMARY | 2024-06-01 12:06 | XMS_ITS | Continuity of Care Document ---
Author Organization [facility] Nando Escobar Lazaro lt Address [address] [place] [address]- Care Team Providers Care Mergers And Acquisitions Consultant Name Role Phone Carrie RN PATIENT SERVICES, Kelly Lopez Primary Care Physician Encounter [facility] Date(s): 04/02/23 - 05/02/23 [facility] Nando Escobar Adult [address] [place] [address]- Allergies, Adverse Reactions, Alerts Substance Reaction Severity [...] 02/03/23 Recorded zoster vaccine, inactivated 08/09/19 Recorded [id number] 12y+ bivalent booster vax 05/17/22 Recorded SARS-CoV-2 [...] adult vaccine 4 12/10/10 Given 1Result Comment: [id number] 2Result Comment: [id number] 3Admin Note: pt waited 10 mins post inj no adverse reaction noted.j a 4Admin Note: PT WAITED 10 MIN WITH NO ADVERSE REACTION. Medications aspirin 81 mg oral delayed release tablet 1 tablet, By Mouth, Daily, # 90 tablet, 1 Refills, Maintenance, 12/30/22 14:35:00 EDT, [facility]/pharmacy#0843, 175, cm, 10/09/22 16:51:00 EDT, Height, 93, [...] tablet, 1 Refills, Maintenance, 01/07/23 21:36:00 EDT, [facility] STORE 33660, 90, TAKE 1 TABLET BY MOUTH EVERY [...] capsule, 0 Refills, Maintenance, 03/31/23 14:24:00 EDT, [facility]/pharmacy #0843, 175, cm, 10/09/22 16:51:00 EDT, Height, 93, kg, 01/28/22 14:55:00 EDT, Dry Weight Start Date: 03/31/23 Status: Ordered folic acid 1 mg oral tablet 1, tablet, By Mouth, Daily, # 90 tablet, Refills 1, Tot. Refills 1, Maintenance, 01/08/23 13:00:00 EDT, Route to Pharmacy Electronically, [facility]/pharmacy #0843, 175, cm, 10/09/22 16:51:00 EDT, Height, [...] 01/21/19 11:25:36 EDT, Route to Pharmacy Electronically, [id number], [id number] Start Date: 01/21/19 Stop Date: 05/21/19 Status: Ordered lamotrigine 100 mg oral tablet Refills 0, Maintenance, 05/01/23 15:28:00 EDT, Partial fill upon patient request if the prescription is for a schedule II opioid drug. Start Date: 05/01/23 Status: Ordered lisinopril 40 mg oral tablet 1 tablet, By Mouth, Daily, # 90 tablet, 0 Refills, Maintenance, 04/21/23 10:51:00 EDT, [facility], 175, cm, 10/09/22 16:51:00 EDT, Height, 93, [...] Refills, Maintenance, 02/20/23 7:15:00 EDT, [facility], 175, cm, 10/09/22 16:51:00 EDT, Height, 93, [...] 15 Unknown, 2 Refills, 11/07/22 0:09:00 EDT, [facility]/pharmacy #0843, 175, cm, 10/09/22 16:51:00 EDT, Height, 93, kg, 01/28/22 14:55:00 EDT, Dry Weight Start Date: 11/07/22 Status: Ordered Pen [place], 31 G x 5 mm BD Ultra [...] 2 Refills, Maintenance, 08/07/22 12:55:00EST, Capsule, [facility]/pharmacy #0843, 175, cm, 07/17/22 10:33:00 EST, Height, 93, kg, 01/28/22 14:55:00EDT, Dry Weight Start Date: 08/07/22 Status: Ordered rosuvastatin 20 mg oral tablet 1 tablet, By Mouth, Daily, # 90 tablet, 1 Refills, Maintenance, 03/29/23 14:43:00 EDT, [facility], 175, cm, 10/09/22 16:51:00 EDT, Height, 93, [...] 524 weeks therapy with sofosbuvir/weight based ribavirin 76678 inferolateral stent bare metal circumflex 7DR Moldverno [...] Role: Lifetime Consulting Physician Address: Address: [address] [facility] [place] [address]- Name: Kelly Butler NP Position: [facility] PCO Associate Professional Member Role: PCP Address: Address: [address] [place] [address]- Name: Kristin Mckenzie Position: [facility] Outreach Member Role: Lifetime Consulting Physician Name: Prieto Tobin RN Position: [facility] RN Member Role: Primary Care Nurse Name: Jonn Hui DO Position: [facility] Renal MD Member Role: Lifetime Consulting Physician Address: Address: [address] [place], [place] [address] [place] [address]- Name: Zafar CALVO, Luis Angel Rojas Position: [facility] RN Member Role: Primary Care Nurse Care Team Related Persons Name: CARLOS A BORDEN Address: [address] [place] [address] Name: LEVI BORDEN Address: [address] [place] [address]
--- OUTSIDE RECORDS SUMMARY | 2024-06-01 12:06 | XMS_ITS | Continuity of Care Document ---
Author Organization [facility] Shawn Lazaro lt Address [address] [place] [address]- Care Team Providers Care Guncotton Packer Name Role Phone Carrie Kelly RIVERA Primary Care Physician [phone] Encounter [facility] Date(s): 02/15/24 - 03/16/24 [facility] Adult [address] [place] [address]- Allergies, Adverse Reactions, Alerts Substance Reaction Severity Status Bee Stings Active Immunizations Given and Recorded Vaccine Date Status Refusal Reason SARS-CoV-2(COVID-19)mRNA-LNP vac(sqx595) 12/31/23 Recorded SARS-CoV-2(COVID-19)mRNA-LNP vac(min321) 05/08/23 Recorded tetanus/diphtheria/pertussis, acel(Tdap) 10/15/23 Recorded tetanus/diphtheria/pertussis, [...] 02/03/23 Recorded zoster vaccine, inactivated 08/09/19 Recorded [id number] 12y+ bivalent booster vax 05/17/22 Recorded SARS-CoV-2 [...] adult vaccine 4 12/10/10 Given 1Result Comment: [id number] 2Result Comment: [id number] 3Admin Note: pt waited 10 mins post [...] day prn cough (Max 600 mg in s01-byce period), # 30 capsule, 0 Refills, Maintenance, [...] 02/29/24 11:18:00 EDT, Route to Pharmacy Electronically, [facility]/pharmacy #[id number], Partial fill upon patient request if the prescriptio... Start Date: 02/29/24 Stop Date: 03/14/24 Status: Ordered D3 50 mcg (2000 intl units) oral capsule 1 capsule, By Mouth, Daily, # 90 capsule, 0 Refills, Maintenance, 12/09/23 14:09:00 EDT, [facility]/pharmacy #[id number], 168, cm, 10/27/23 15:34:00 EDT, Height, 93, kg, 01/28/22 14:55:00 EDT, Dry Weight Start Date: 12/09/23 Status: Ordered Daily Simone oral tablet 1 tablet, By Mouth, Daily, # 90 tablet, 1 Refills, Maintenance, 01/25/24 16:01:00 EDT, [facility]/pharmacy#0843, 90, 1 tablet By Mouth Daily, 168, cm, 01/11/24 14:42:00 EDT, Height, 93, kg, 01/28/22 14:55:00 EDT, Dry Weight Start Date: 01/25/24 Status: Ordered dapagliflozin 10 mg oral tablet 1 tablet = 10 mg, By Mouth, Daily, # 30 tablet, 0 Refills, Maintenance, 01/11/24 14:46:00 EDT, Tablet, [facility]/pharmacy #0843, Partial fill upon patient request if [...] 02/17/24 7:23:00 EDT, Route to Pharmacy Electronically, [facility]/pharmacy #[id number], 168, cm, 02/15/24 13:43:00 EDT, Height [...] 01/21/19 11:25:36 EDT, Route to Pharmacy Electronically, [id number], [facility]/pharmacy #[id number] Start Date: 01/21/19 Stop Date: 05/21/19 [...] 0 Refills, Maintenance, 10/03/22 15:53:00 EDT, [facility]/pharmacy #[id number], 175, cm, 09/17/22 13:59:00 EDT, Height,... Start Date: 10/03/22 Status: Ordered NovoLOG FlexPen 100 units/mL injectable solution See Instructions, INJECT 0-18 UNITS SUBCUTANEOUSLY WITH MEALS FOR SLIDING SCALES, # 15 Unknown, 2 Refills, 01/12/24 14:36:00 EDT, [facility]/pharmacy #[id number], MAX DAILY DOSE 54 UNITS, 168, [...] mL, 0 Refills, Maintenance, 02/02/24 15:28:00 EDT, Peak, [facility]/pharmacy #0843, Partial fill upon patient... Start Date: [...] Refills, Maintenance, 02/04/24 16:39:00 EDT, [facility], 168, cm, 02/03/24 10:41:00 EDT, Height Start [...] ml/min Confirmed Active ASHD; [place] 2012/stent circumflex 2012/vessel cath;abdelrahman 2018 3 Confirmed [...] mild to moderate. 3MI 2012 circumflex stent 2012/[place] 4secondary to hep C 524 weeks therapy with sofosbuvir/weight based ribavirin 15018 inferolateral stent bare metal circumflex 7DR Marissa [...] Member Role: Lifetime Consulting Physician Address: Address: [address] [place] [address] [address] [facility] [place] [place] - Name: Kelly Butler NP Position: [facility] PCO Associate Professional Member Role: PCP Address: Address: [address] [place] [address] - Name: Kristin Mckenzie Position: [facility] Associate Professional Member Role: Lifetime Consulting Provider Address: Address: [address] [place] [address] [address] [facility] [place] [place] - Name: Prieto Tobin RN Position: [facility] RN Member Role: Primary Care Nurse Name: Ashleigh Reynoso RN Position: [facility] RN Member Role: Primary Care Nurse Name: Jonn Hui DO Position: [facility] Renal MD Member Role: Lifetime Consulting Physician Address: Address: [address] [place] [address] [address] [facility] [place] [place] - Name: Luis Angel Stephen RN Position: [facility] RN Member Role: Primary Care Nurse Name: Brandan Nogueira RN Position: [facility] RN Member Role: Primary Care Nurse Care Team Related Persons Name: CARLOS A BORDEN Address: home [address] [place] [address] Name: LEVI BORDEN Address: home [address] [place] [address]
--- OUTSIDE RECORDS SUMMARY | 2024-06-01 12:06 | XMS_ITS | Continuity of Care Document ---
Author Organization [facility] Lazaro lt Address [address] [place] [address]- Care Team Providers Care Office Assistant Receptionist Name Role Phone Carrie Kelly RIVERA Primary Care Physician [phone] Encounter [facility] Date(s): 11/10/23 - 12/10/23 [facility] Adult [address] [place] [address]- Allergies, Adverse Reactions, Alerts Substance Reaction Severity Status Bee Stings Active Immunizations Given and Recorded Vaccine Date Status Refusal Reason tetanus/diphtheria/pertussis, acel(Tdap) 10/15/23 Recorded tetanus/diphtheria/pertussis, acel(Tdap) 07/28/11 Given SARS-CoV-2(COVID-19)mRNA-LNP vac([id number]) 05/08/23 Recorded pneumococcal 20-valent conjugate vaccine 1 [...] 02/03/23 Recorded zoster vaccine, inactivated 08/09/19 Recorded [id number] 12y+ bivalent booster vax 05/17/22 Recorded SARS-CoV-2 [...] adult vaccine 4 12/10/10 Given 1Result Comment: [id number] 2Result Comment: [id number] 3Admin Note: pt waited 10 mins post inj no adverse reaction noted.thierno kong 4Admin Note: PT WAITED 10 MIN WITH NO ADVERSE REACTION. MH Medications aspirin 81 mg oral delayed release tablet 1 tablet, By Mouth, Daily, # 90 tablet, 1 Refills, Maintenance, 06/02/23 11:42:00 EST, [facility]/pharmacy#0843, 168, cm, 05/01/23 14:45:00 EDT, Height, [...] tablet, 1 Refills, Maintenance, 06/30/23 7:20:00 EST, [facility] STORE [facility], 90, TAKE 1 TABLET BY MOUTH EVERY [...] Refills, Maintenance, 11/10/23 22:03:00 EDT, [facility], 168, cm, 10/27/23 15:34:00 EDT, Height, 93, kg, 01/28/22 14:55:00 EDT, Dry Weight Start Date: 11/10/23 Status: Ordered folic acid 1 mg oral tablet 1, tablet, By Mouth, Daily, # 90 tablet, Refills 1, Tot. Refills 1, Maintenance, 07/03/23 10:01:00 EST, Route to Pharmacy Electronically, [facility]/pharmacy #[id number], 168, cm, 05/01/23 14:45:00 EDT, [...] 01/21/19 11:25:36 EDT, Route to Pharmacy Electronically, [id number], [facility]/pharmacy #[id number] Start Date: 01/21/19 Stop Date: 05/21/19 Status: Ordered lamotrigine 100 mg oral tablet Refills 0, Maintenance, 05/01/23 15:28:00 EDT, Partial fill upon patient request if the prescription is for a schedule II opioid drug. Start Date: 05/01/23 Status: Ordered lisinopril 40 mg oral tablet 1 tablet, By Mouth, Daily, # 90 tablet, 1 Refills, Maintenance, 08/17/23 13:33:00 EST, [facility]/pharmacy#0843, 168, cm, 07/23/23 15:05:00 EST, Height, 93, kg, 01/28/22 14:55:00 EDT, Dry Weight Start Date: 08/17/23 Status: Ordered Metoprolol Tartrate 50 mg oral tablet 1.5 tablet, By Mouth, 2 times a day, # 270 tablet, 1 Refills, Maintenance, 09/16/23 14:32:00 EDT, [facility]/pharmacy #0843, 168, cm, 07/23/23 15:05:00 EST, Height, 93, kg, 01/28/22 14:55:00 EDT, Dry Weight Start Date: 09/16/23 Status: Ordered nitroglycerin 0.4 mg sublingual tablet See Instructions, DISSOLVE 1 UNDER TONGUE EVERY 5 MINUTES NEEDED FOR CHEST PAIN CALL MD AFTER TAKING 3 TABS IN TOTAL IN A DAY, # 100 tablet, 0 Refills, Maintenance, 10/03/22 15:53:00 EDT, [facility]/pharmacy #[id number], 175, cm, 09/17/22 13:59:00 EDT, Height,... Start Date: 10/03/22 Status: Ordered NovoLOG FlexPen 100 units/mL injectable solution See Instructions, INJECT 0-18 UNITS SUBCUTANEOUSLY WITH MEALS FOR SLIDING SCALES, # 15 Unknown, 2 Refills, 11/07/22 0:09:00 EDT, [facility]/pharmacy #[id number], 175, cm, 10/09/22 16:51:00 EDT, Height, 93, kg, 01/28/22 14:55:00 EDT, Dry Weight Start Date: 11/07/22 Status: Ordered Pen [place], 31 G x 5 mm BD Ultra [...] Refills, Maintenance, 11/10/23 22:03:00 EDT, [facility], 168, cm, 10/27/23 15:34:00 EDT, Height, 93, [...] 524 weeks therapy with sofosbuvir/weight based ribavirin 48941 inferolateral stent bare metal circumflex 7DR Molddoverno [...] Personnel Name: Jeffrey Mccoy MD Position: [facility] Renal MD Member Role: Lifetime Consulting Physician Address: Address: [address] [place] [address] Dr [address] [facility] [place] [address]- Name: Kelly Butler NP Position: [facility] PCO Associate Professional Member Role: PCP Address: Address: [address] [place] [address]- Name: Kristin Mckenzie Position: [facility] Outreach Member Role: Lifetime Consulting Physician Name: Prieto Tobin RN Position: [facility] RN Member Role: Primary Care Nurse Name: Jonn Hui DO Position: [facility] Renal MD Member Role: Lifetime Consulting Physician Address: Address: [address] [place] [address] [address] [facility] [place], [place] [address] Name: Zafar CALVO, Luis Angel Rojas Position: [facility] RN Member Role: Primary Care Nurse Care Team Related Persons Name: CARLOS A BORDEN Address: [address] [place] [address] Name: LEVI BORDEN Address: [address] [place] [address]
--- OUTSIDE RECORDS SUMMARY | 2024-06-01 12:06 | XMS_ITS | Continuity of Care Document ---
Author Organization [facility] Shawn Lazaro lt Address [address] [place] [address]- Care Team Providers Care Tender Coordinator Name Role Phone Kelly Butler NP Primary Care Physician Encounter [facility] Date(s): 08/17/23 - 08/24/23 [facility] Adult [address] [place] [address]- Encounter Diagnosis Hypertension(Discharge Diagnosis) - 08/18/23 Hyperlipidemia(Discharge Diagnosis) - 08/18/23 Lumbar spondylosis(Discharge Diagnosis) - 08/18/23 Multiple lung nodules LDCT (Discharge Diagnosis) - 08/18/23 History of alcoholism(Discharge Diagnosis) - 08/18/23 Bipolar disorder(Discharge Diagnosis) - 08/18/23 ASHD; [place] 2012/stent circumflex vessel cath;abdelrahman 2018(Discharge Diagnosis) - 08/17/23 CKD (chronic kidney disease) stage 4, GFR 15-29 ml/min(Discharge Diagnosis) - 08/17/23 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) - 08/17/23 Attending Physician: Kelly Butler NP Referring Physician: Luis Angel Cool MD Allergies, Adverse Reactions, Alerts Substance Reaction Severity Status Bee Stings Active Immunizations Given and Recorded Vaccine Date Status Refusal Reason SARS-CoV-2(COVID-19)mRNA-LNP vac([id number]) 05/08/23 Recorded pneumococcal 20-valent conjugate vaccine 1 [...] 02/03/23 Recorded zoster vaccine, inactivated 08/09/19 Recorded [id number] 12y+ bivalent booster vax 05/17/22 Recorded SARS-CoV-2 [...] adult vaccine 4 12/10/10 Given 1Result Comment: [id number] 2Result Comment: [id number] 3Admin Note: pt waited 10 mins post inj no adverse reaction noted.j a 4Admin Note: PT WAITED 10 MIN WITH NO ADVERSE REACTION. Medications aspirin 81 mg oral delayed release tablet 1 tablet, By Mouth, Daily, # 90 tablet, 1 Refills, Maintenance, 06/02/23 11:42:00 EST, [facility]/pharmacy#0843, 168, cm, 05/01/23 14:45:00 EDT, Height, 93, [...] capsule, 1 Refills, Maintenance, 06/30/23 7:20:00 EST, [facility], 168, cm, 05/01/23 14:45:00 EDT, Height, 93, kg, 01/28/22 14:55:00 EDT, Dry Weight Start Date: 06/30/23 Status: Ordered Daily Simone oral tablet 1 tablet, By Mouth, Daily, # 90 tablet, 1 Refills, Maintenance, 06/30/23 7:20:00 EST, [facility] 97[facility], 90, TAKE 1 TABLET BY MOUTH EVERY [...] capsule, 0 Refills, Maintenance, 06/26/23 6:50:00 EST, [facility], 168, cm, 05/01/23 14:45:00 EDT, Height, 93, [...] 01/21/19 11:25:36 EDT, Route to Pharmacy Electronically, [id number], [facility]/pharmacy #[id number] Start Date: 01/21/19 Stop [...] Refills, Maintenance, 02/20/23 7:15:00 EDT, [facility], 175, cm, 10/09/22 16:51:00 EDT, Height, 93, kg, 01/28/22 14:55:00 EDT, Dry Weight Start Date: 02/20/23 Status: Ordered nicotine 14 mg/24 hr transdermal film, extended release See Instructions, apply to skin, # 14 patch, 1 Refills, Maintenance, 07/23/23 15:53:00 EST, Patch, [id number], Partial fill upon patient [...] Weight Start Date: 11/07/22 Status: Ordered Pen [place], 31 G x 5 mm BD Ultra [...] Refills, Maintenance, 03/29/23 14:43:00 EDT, [facility], 175, cm, 10/09/22 16:51:00 EDT, Height, 93, [...] 524 weeks therapy with sofosbuvir/weight based ribavirin 08075 inferolateral stent bare metal circumflex 7DR Molddovernmateo sx;Dr Schwartz 8hyperplatic polyp repeat screening in 2025 9repeat colonoscopy in 5 years Diagnosis Diagnosis Type Effective Dates Health Status Clinical Service Informant ASHD; [place] 2012/stent circumflex vessel cath;abdelrahman 2018 Discharge Diagnosis 08/17/23 CKD (chronic kidney disease) stage 4, GFR 15-29 ml/min Discharge Diagnosis 08/17/23 Type 2 diabetes mellitus with diabetic nephropathy Discharge Diagnosis 08/17/23 History of alcoholism Discharge Diagnosis 08/18/23 Hypertension Discharge Diagnosis 08/18/23 Hyperlipidemia Discharge Diagnosis 08/18/23 Lumbar spondylosis Discharge Diagnosis 08/18/23 Multiple lung nodules LDCT Discharge Diagnosis 08/18/23 Bipolar disorder Discharge Diagnosis 08/18/23 Vital Signs Most recent to oldest [Reference Range]: 1 Blood Pressure [90-138/55-84 mm Hg] 132/ 64mm Hg (07/29/23 1:32 PM) Blood pressure sites Arm, left (07/29/23 1:32 PM) Social History Social History Type Response [...] Member Role: Lifetime Consulting Physician Address: Address: [address] [place] [address] [facility] [place] [address]- Name: Kelly Butler NP Position: [facility] PCO Associate Professional Member Role: PCP Address: Address: [address] [place] [address]- [place] Name: Kristin Mckenzie Position: [facility] Outreach Member Role: Lifetime Consulting Physician Name: Prieto Tobin RN Position: [facility] RN Member Role: Primary Care Nurse Name: Jonn Hui DO Position: [facility] Renal MD Member Role: Lifetime Consulting Physician Address: Address: [address] [place], [place] [address] [place] [place] [address]- Name: Luis Angel Stephen RN Position: [facility] RN Member Role: Primary Care Nurse Care Team Related Persons Name: CARLOS A BORDEN Address: [address] [place] [address] Name: LEVI BORDEN Address: [address] [place] [address]
--- OUTSIDE RECORDS SUMMARY | 2024-06-01 12:06 | XMS_ITS | Continuity of Care Document ---
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) - 10/04/19 Insulin long-term use(Discharge Diagnosis) - 10/04/19 ASHD; [place] 2012/stent circumflex vessel cath;abdelrahman 2019(Discharge Diagnosis) - 10/04/19 History of acute myocardial infarction of inferior wall 2012/stent(Discharge Diagnosis) - 10/04/19 Hypertension(Discharge Diagnosis) - 10/04/19 Hyperlipidemia(Discharge Diagnosis) - 10/04/19 Chronic renal impairment, stage 3 (moderate)(Discharge Diagnosis) - 10/05/19 Attending Physician: Ben Viera MD Allergies, Adverse [...] 10:48:07 EST, Aerosol, Route to Pharmacy Electronically, [id number], [id number], 180, cm, 06/17/19 10:36:11 EST, Height Start Date: 06/17/19 Status: Ordered aspirin 81 mg oral tablet 1 tablet = 81 mg, By Mouth, Daily, # 30 tablet, 11 Refills, Maintenance, 09/03/19 14:22:00 EST, Tablet, [id number], 180, cm, 08/01/19 10:43:00 EST, Height [...] 14:00:00 EST, CR Capsule, [id number], 172, cm, 08/11/19 13:32:00 EST, Height, [...] 05/09/19 9:31:26 EST, Route to Pharmacy Electronically, [id number], [facility]/pharmacy #[id number] Start Date: 05/09/19 Status: Ordered Colace sodium 100 mg oral capsule 100 mg, 1, capsule, By Mouth, 2 times a day, PRN, # 60 capsule, Refills 5, Tot. Refills 5, Maintenance, for constipation, 04/25/19 13:50:52 EDT, Route to Pharmacy Electronically, [id number], [facility]/pharmacy #0843 Start Date: 04/25/19 Status: Ordered Crestor 20 mg oral tablet 1 tablet = 20 mg, By Mouth, Daily, discontinue crestor 10 mg daily, # 90 tablet, 3 Refills, Maintenance, 05/12/19 13:46:50 EST, Tablet Start Date: 05/12/19 Status: Ordered Daily Simone oral tablet 1 tablet, By Mouth, Daily, # 30 tablet, 5 Refills, Maintenance, 09/21/19 10:41:00 EDT, Tablet, [facility]/pharmacy #0843, 1 tablet By Mouth Daily,x30 days, 172, cm, 09/05/19 16:17:00 EST, Height, 97.8, kg, 08/11/19 5:24:00 EST, Dry Weight Start Date: 09/21/19 Stop Date: 03/19/20 Status: Ordered folic acid 1 mg oral tablet 1 mg, 1, tablet, By Mouth, Daily, # 30 tablet, Refills 11, Tot. Refills 11, Maintenance, 02/14/19 16:39:14 EDT, Route to Pharmacy Electronically, [id number], [facility]/pharmacy #[id number] Start Date: 02/14/19 Status: Ordered Freestyle [...] 01/21/19 11:25:36 EDT, Route to Pharmacy Electronically, [id number], [facility]/pharmacy #0843 Start Date: 01/21/19 Stop Date: [...] 06/21/19 14:10:15 EST, Route to Pharmacy Electronically, [facility]/pharmacy #0843, 180, cm, 06/17/19 10:36:11 EST, Height Start Date: 06/21/19 Status: Ordered metoprolol 50 mg oral tablet 75 mg, 1.5, tablet, By Mouth, 2 times a day, stop metoprolol 50 mg twice daily, # 180 tablet, Refills 2, Tot. Refills 2, Maintenance, 08/26/19 9:30:00 EST, Route to Pharmacy Electronically, [facility]/pharmacy #0843, 172, cm, 08/23/19 10:02:00 EST, Height, 9... Start Date: 08/26/19 Status: Ordered nicotine 4 mg oral transmucosal lozenge 1 lozenge = 4 mg, By Mouth, Every hour, # 132 lozenge, 1 Refills, Maintenance, 10/05/19 11:01:00 EDT, [facility]/pharmacy #0843, 1 lozenge By Mouth Every hour, [...] PAIN CALL 911 IF PAIN NOT RELIEVED, [facility]/pharmacy #0843 Start Date: 02/17/19 Status: Ordered NovoLOG FlexPen 100 units/mL subcutaneous solution See Instructions, # 15 Unknown, Refills 5 Tot. Refills 5, INJECT 0-18 UNITS SUBCUTANEOUSLY WITH MEALS FOR SLIDING SCALES, [facility]/pharmacy #0843 Start Date: 01/04/19 Status: Ordered Pen [place], 31 G x 5 mm BD Ultra [...] 0 Refills, Maintenance, 10/05/19 11:07:00 EDT, Solution, [facility]/pharmacy #0843, 172, cm, 09/05/19 16:17:00 EST, [...] EST, Tablet, this was previously sent to [facility] pharmacy Start Date: 05/17/19 Stop Date: 05/11/20 Status: Ordered Tresiba FlexTouch 200 units/mL subcutaneous solution = 90 units, Subcutaneous Infusion, Daily, at bedtime, # 15 mL, 5 Refills, Maintenance, 08/04/19 13:13:00 EST, [facility]/pharmacy #0843, 180, cm, 08/01/19 10:43:00 EST, Height Start Date: 08/04/19 Status: Ordered Problem List Condition Effective Dates Status Health Status Inform ant Acute pancreatitis(Confirmed) 07/16/16 Active Adenomatous colon polyp(Confirmed) Active Bipolar disorder(Confirmed) Active Cervical spondylosis(Confirmed) Active Chronic back pain opiates pe r physiatry(Confirmed) Active Glomerulonephritis,mesangial proliferative/fibrillary(Confirmed) 1, 2 Active Chronic renal impairment, st age 3 (moderate)(Confirmed) Active ASHD; [place] 2012/stent circumfl ex vessel [...] 524 weeks therapy with sofosbuvir/weight based ribavirin 57385 inferolateral stent bare metal circumflex 7DR Marissa sx;Dr Schwartz 8repeat colonoscopy in 5 years Diagnosis Diagnosis Type Effective Dates Health Status Clinical Service Informant Type 2 diabetes mellitus with diabetic nephropathy Discharge Diagnosis 10/04/19 Insulin long-term use Discharge Diagnosis 10/04/19 ASHD; [place] 2012/stent circumflex vessel cath;abdelrahman 2019 Discharge Diagnosis 10/04/19 History of acute myocardial infarction of inferior wall 2012/stent Discharge Diagnosis 10/04/19 Hypertension Discharge Diagnosis 10/04/19 Hyperlipidemia Discharge Diagnosis 10/04/19 Chronic renal impairment, stage 3 (moderate) Discharge Diagnosis 10/05/19 Social History Social History Type Response Smoking Status Former smoker, quit more than 30 days ago entered on: 12/22/18 Sex
--- OUTSIDE RECORDS SUMMARY | 2024-06-01 12:06 | XMS_ITS | Continuity of Care Document ---
Author Organization [facility] Shawn Lazaro lt Address [address] [place] [address]- Care Team Providers Care Tipple Engineer Name Role Phone Aylin HICKMAN, Ben Willis Primary Care Physician Encounter [facility] Date(s): 10/23/21 - 11/22/21 [facility] [address] [place] [address]- Allergies, Adverse Reactions, Alerts Substance Reaction Severity [...] Refills, Maintenance, 09/30/21 12:28:00 EDT, [facility]/pharmacy#[id number], 175.2, cm, 09/20/21 8:36:00 EDT, Height, 88.3, [...] 01/23/21 11:08:00 EDT, CR Capsule, [facility]/pharmacy #0843, 175.3, cm, 01/21/21 12:58:00 EDT, Height, 83.6, kg, 04/23/20 17:46:00EDT, Dry Weight Start Date: 01/23/21 Stop Date: 01/18/22 Status: Ordered cloNIDine 0.2 mg oral tablet 0.2 mg, 1, tablet, By Mouth, 2 times a day, # 60 tablet, Refills 5, Tot. Refills 5, Maintenance, 06/24/21 12:51:00 EST, Route to Pharmacy Electronically, [facility]/pharmacy #0843, 175.2, cm, 06/07/21 9:51:00 EST, Height, 88.3, kg, 03/12/21 9:16:00 EDT, Dry... Start Date: 06/24/21 Status: Ordered Daily Simone oral tablet 1 tablet, By Mouth, Daily, # 30 tablet, 5 Refills, Maintenance, 07/29/21 13:53:00 EST, Tablet, [facility]/pharmacy #0843, 1 tablet By Mouth Daily,x30 days, 175.2, cm, 06/07/21 9:51:00 EST, Height, 88.3, kg,03/12/21 9:16:00 EDT, Dry Weight Start Date: 07/29/21 Stop Date: 01/25/22 Status: Ordered docusate sodium 100 mg oral capsule 1 capsule, By Mouth, 2 times a day, PRN NEEDED FOR CONSTIPATION, # 60 capsule, 5 Refills, Maintenance, 06/05/21 15:57:00 EST, [facility]/pharmacy #0843, 175.2, cm, 05/27/21 11:26:00 EST, Height, 88.3, kg, 03/12/21 9:16:00 EDT, Dry Weight Start Date: 06/05/21 Status: Ordered folic acid 1 mg oral tablet 1, tablet, By Mouth, Daily, # 30 tablet, Refills 5, Tot. Refills 5, Maintenance, 07/25/21 15:59:00 EST, Route to Pharmacy Electronically, [facility]/pharmacy #0843, 175.2, cm, 06/07/21 9:51:00 EST, Height, [...] Refills, Maintenance, 06/05/21 15:57:00 EST, [facility]/pharmacy #0843, 175.2, cm, 05/27/21 11:26:00 EST, Height, 88.3, kg, 03/12/21 9:16:00 EDT, Dry Weight Start Date: 06/05/21 Status: Ordered LaMICtal 100 mg oral tablet 100 mg, 1, tablet, By Mouth, 2 times a day, # 60 tablet, Refills 3, Tot. Refills 3, Maintenance, 01/21/19 11:25:36 EDT, Route to Pharmacy Electronically, [id number], [facility]/pharmacy #0843 Start [...] Maintenance, 09/17/21 10:50:00 EDT, Tablet, [facility]/pharmacy #0843, Partial fill upon patient request if the prescription is for a schedule II opioid drug., 175.2, cm, 07/31/21 11:20:00 EST, Heigh... Start Date: 09/17/21 Status: Ordered Metoprolol Tartrate 50 mg oral tablet See Instructions, TAKE 1 + 1/2 TABLETS BY MOUTH 2 TIMES A DAY, # 270 tablet, 0 Refills, 06/24/21 10:42:00 EST, [facility]/pharmacy #0843, 175.2, cm, 06/07/21 9:51:00 EST, Height, 88.3, kg, 03/12/21 9:16:00 EDT, Dry Weight Start Date: 06/24/21 Status: Ordered nicotine 2 mg oral transmucosal lozenge See Instructions, USE 1 LOZENGE UP TO EVERY 1 HOUR NEEDED FOR 10 DAYS, # 162 lozenge, 0 Refills,Maintenance, 11/22/21 14:08:00 EDT, [facility]/pharmacy #0843, 16, USE 1 LOZENGE UP TO [...] # 15 Unknown, 2 Refills, [facility], 175.2, cm, 05/27/21 11:26:00 EST, Height, 88.3, kg, 03/12/21 9:16:00 EDT, Dry Weight Start Date: 06/04/21 Status: Ordered Pen [place], 31 G x 5 mm BD Ultra [...] Refills, Maintenance, 08/15/21 14:24:00 EST, [facility]/pharmacy#0843, 175.2, cm, 07/31/21 11:20:00 EST, Height, 88.3, kg, 03/12/21 9:16:00 EDT, Dry Weight Start Date: 08/15/21 Status: Ordered SEROquel 100 mg oral tablet 100 mg, 1, tablet, By Mouth, 2 times a day, # 60 tablet, Refills 2, Tot. Refills 2, Maintenance, 09/21/19 10:41:00 EDT, [facility], cm, 09/05/19 16:17:00 EST, [...] Maintenance, 11/12/21 16:48:00 EDT, Suspension, [facility]/pharmacy #0843, 1 drops Eyes, Both 2 times [...] # 9 Unknown, 1 Refills, [facility], 175.2, cm, 07/31/21 11:20:00 EST, Height, 88.3, [...] # 30 capsule, 5 Refills, [facility], 175.2, cm, 11/15/21 11:18:00 EDT, Height, 88.3, [...] mild to moderate. 3MI 2012 circumflex stent 2013/CT 4secondary to hep C 524 weeks therapy with sofosbuvir/weight based ribavirin 04105 inferolateral stent bare metal circumflex 7DR Molddoverno [...]
--- OUTSIDE RECORDS SUMMARY | 2024-06-01 12:06 | XMS_ITS | Continuity of Care Document ---
Author Organization [facility] y Address [address] [place] [address] Joana gio, [address] [place] [address]- Care Team Providers Care Photo Manager Name Role Phone Carrie Kelly RIVERA Primary Care Physician Encounter [facility] Date(s): 10/27/23 - 11/26/23 [facility] [address] [place] [address] Drive [address] [place], [place] [address] Attending Physician: Admtr, Radha Admitting Physician: Admtr, Ar8 Referring Physician: Admtr, Ar8 Allergies, Adverse Reactions, Alerts Substance Reaction Severity Status Bee Stings Active Immunizations Given and Recorded Vaccine Date Status Refusal Reason tetanus/diphtheria/pertussis, acel(Tdap) 10/15/23 Recorded tetanus/diphtheria/pertussis, acel(Tdap) 07/28/11 Given SARS-CoV-2(COVID-19)mRNA-LNP vac([id number]) 05/08/23 Recorded pneumococcal 20-valent conjugate vaccine 1 [...] 02/03/23 Recorded zoster vaccine, inactivated 08/09/19 Recorded [id number] 12y+ bivalent booster vax 05/17/22 Recorded SARS-CoV-2 [...] adult vaccine 4 12/10/10 Given 1Result Comment: [id number] 2Result Comment: [id number] 3Admin Note: pt waited 10 mins post inj no adverse reaction noted.thierno kong 4Admin Note: PT WAITED 10 MIN WITH NO ADVERSE REACTION. Medications aspirin 81 mg oral delayed release tablet 1 tablet, By Mouth, Daily, # 90 tablet, 1 Refills, Maintenance, 06/02/23 11:42:00 EST, [facility]/pharmacy#0843, 168, cm, 05/01/23 14:45:00 EDT, Height, 93, [...] Refills, Maintenance, 06/30/23 7:20:00 EST, [facility], 168, cm, 05/01/23 14:45:00 EDT, Height, 93, kg, 01/28/22 14:55:00 EDT, Dry Weight Start Date: 06/30/23 Status: Ordered Daily Simone oral tablet 1 tablet, By Mouth, Daily, # 90 tablet, 1 Refills, Maintenance, 06/30/23 7:20:00 EST, [facility], 90, TAKE 1 TABLET BY MOUTH EVERY [...] capsule, 0 Refills, Maintenance, 11/10/23 22:03:00 EDT, [facility], 168, cm, 10/27/23 15:34:00 EDT, Height, 93, kg, 01/28/22 14:55:00 EDT, Dry Weight Start Date: 11/10/23 Status: Ordered folic acid 1 mg oral tablet 1, tablet, By Mouth, Daily, # 90 tablet, Refills 1, Tot. Refills 1, Maintenance, 07/03/23 10:01:00 EST, Route to Pharmacy Electronically, [facility]/pharmacy #0843, 168, cm, 05/01/23 14:45:00 EDT, Height, [...] 01/21/19 11:25:36 EDT, Route to Pharmacy Electronically, [id number], [facility]/pharmacy #0843 Start Date: 01/21/19 Stop Date: 05/21/19 Status: Ordered lamotrigine 100 mg oral tablet Refills 0, Maintenance, 05/01/23 15:28:00 EDT, Partial fill upon patient request if the prescription is for a schedule II opioid drug. Start Date: 05/01/23 Status: Ordered lisinopril 40 mg oral tablet 1 tablet, By Mouth, Daily, # 90 tablet, 1 Refills, Maintenance, 08/17/23 13:33:00 EST, [facility]/pharmacy#0843, 168, cm, 07/23/23 15:05:00 EST, Height, 93, kg, 01/28/22 14:55:00 EDT, Dry Weight Start Date: 08/17/23 Status: Ordered Metoprolol Tartrate 50 mg oral tablet 1.5 tablet, By Mouth, 2 times a day, # 270 tablet, 1 Refills, Maintenance, 09/16/23 14:32:00 EDT, [facility]/pharmacy #0843, 168, cm, 07/23/23 15:05:00 EST, Height, [...] Weight Start Date: 11/07/22 Status: Ordered Pen [place], 31 G x 5 mm BD Ultra [...] Refills, Maintenance, 11/10/23 22:03:00 EDT, [facility], 168, cm, 10/27/23 15:34:00 EDT, Height, 93, [...] GFR 15-29 ml/min Confirmed Active ASHD; [place] 2012/stent circumflex vessel cath;abdelrahman 2018 3 Confirmed [...] mild to moderate. 3MI 2012 circumflex stent 2013/[place] 4secondary to hep C 524 weeks therapy with sofosbuvir/weight based ribavirin 90877 inferolateral stent bare metal circumflex 7DR Molddoverno [...] Role: Lifetime Consulting Physician Address: Address: [address] [place] [address] [address] [facility] [place] [address]- Name: Kelly Butler NP Position: [facility] PCO Associate Professional Member Role: PCP Address: Address: [address] [place] [id number]- Name: Kristin Mckenzie Position: [facility] Outreach Member Role: Lifetime Consulting Physician Name: Prieto Tobin RN Position: S RN Member Role: Primary Care Nurse Name: Jonn Hui DO Position: [facility] Renal MD Member Role: Lifetime Consulting Physician Address: Address: [address] [place], [place] [address] [place], [place] [address] Name: Luis Angel Stephen RN Position: [facility] RN Member Role: Primary Care Nurse Care Team Related Persons Name: CARLOS A BORDEN Address: home [address] [place] [address] Name: LEVI BORDEN Address: [address] [place] [address]
--- OUTSIDE RECORDS SUMMARY | 2024-06-01 12:06 | XMS_ITS | Continuity of Care Document ---
Author Organization [facility] Shawn Lazaro lt Address [address] [place] [address]- Care Team Providers Care Division Leader Name Role Phone Carrie Kelly RIVERA Primary Care Physician Encounter [facility] Date(s): 06/02/23 - 07/02/23 [facility] Adult [address] [place] [address]- Allergies, Adverse Reactions, Alerts Substance Reaction Severity Status Bee Stings Active Immunizations Given and Recorded Vaccine Date Status Refusal Reason SARS-CoV-2(COVID-19)mRNA-LNP vac([id number]) 05/08/23 Recorded pneumococcal 20-valent conjugate vaccine 1 [...] 02/03/23 Recorded zoster vaccine, inactivated 08/09/19 Recorded [id number] 12y+ bivalent booster vax 05/17/22 Recorded SARS-CoV-2 [...] adult vaccine 4 12/10/10 Given 1Result Comment: [id number] 2Result Comment: [id number] 3Admin Note: pt waited 10 mins post inj no adverse reaction noted.j a 4Admin Note: PT WAITED 10 MIN WITH NO ADVERSE REACTION. MH Medications aspirin 81 mg oral delayed release tablet 1 tablet, By Mouth, Daily, # 90 tablet, 1 Refills, Maintenance, 06/02/23 11:42:00 EST, [facility]/pharmacy#0843, 168, cm, 05/01/23 14:45:00 EDT, Height, 93, [...] capsule, 1 Refills, Maintenance, 06/30/23 7:20:00 EST, [facility], 168, cm, 05/01/23 14:45:00 EDT, Height, 93, kg, 01/28/22 14:55:00 EDT, Dry Weight Start Date: 06/30/23 Status: Ordered Daily Simone oral tablet 1 tablet, By Mouth, Daily, # 90 tablet, 1 Refills, Maintenance, 06/30/23 7:20:00 EST, [facility], 90, TAKE 1 TABLET BY MOUTH EVERY [...] Refills, Maintenance, 06/26/23 6:50:00 EST, [facility], 168, cm, 05/01/23 14:45:00 EDT, Height, 93, kg, 01/28/22 14:55:00 EDT, Dry Weight Start Date: 06/26/23 Status: Ordered folic acid 1 mg oral tablet 1, tablet, By Mouth, Daily, # 90 tablet, Refills 1, Tot. Refills 1, Maintenance, 01/08/23 13:00:00 EDT, Route to Pharmacy Electronically, [facility]/pharmacy #[id number], 175, cm, 10/09/22 16:51:00 EDT, [...] 01/21/19 11:25:36 EDT, Route to Pharmacy Electronically, [id number], [facility]/pharmacy #[id number] Start Date: 01/21/19 Stop Date: 05/21/19 Status: Ordered lamotrigine 100 mg oral tablet Refills 0, Maintenance, 05/01/23 15:28:00 EDT, Partial fill upon patient request if the prescription is for a schedule II opioid drug. Start Date: 05/01/23 Status: Ordered lisinopril 40 mg oral tablet 1 tablet, By Mouth, Daily, # 90 tablet, 0 Refills, Maintenance, 04/21/23 10:51:00 EDT, [facility] 394[facility], 175, cm, 10/09/22 16:51:00 EDT, Height, 93, [...] Refills, Maintenance, 02/20/23 7:15:00 EDT, [facility], 175, cm, 10/09/22 16:51:00 EDT, Height, 93, [...] Refills, Maintenance, 03/29/23 14:43:00 EDT, [facility], 175, cm, 10/09/22 16:51:00 EDT, Height, 93, [...] mild to moderate. 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 2012/[place] 4secondary to hep C 524 weeks therapy with sofosbuvir/weight based ribavirin 19337 inferolateral stent bare metal circumflex 7DR Marissa [...] Team Personnel Name: Jeffrey Mccoy MD Position: [facility] Renal MD Member Role: Lifetime Consulting Physician Address: Address: [address] [place] [address] [facility] [place] [address]- Name: Kelly Butler NP Position: [facility] PCO Associate Professional Member Role: PCP Address: Address: [address] [place] [address]- Name: Kristin Mckenzie Position: [facility] Outreach Member Role: Lifetime Consulting Physician Name: Prieto Tobin RN Position: [facility] RN Member Role: Primary Care Nurse Name: Jonn Hui DO Position: [facility] Renal MD Member Role: Lifetime Consulting Physician Address: Address: [address] [place], [place] [address]E [facility] [place] [place] [address]- Name: Zafar CALVO, Luis Angel Rojas Position: [facility] RN Member Role: Primary Care Nurse Care Team Related Persons Name: CARLOS A BORDEN Address: [address] [place] [address] Name: LEVI BORDEN Address: [address] [place] [address]
--- OUTSIDE RECORDS SUMMARY | 2024-06-01 12:06 | XMS_ITS | Continuity of Care Document ---
Author Organization [facility] Address [address] [place] [address]- Care Team Providers Care Cattle Knocker Name Role Phone Aylin HICKMAN, Ben Willis Primary Care Physician [phone] Encounter [facility] Date(s): 08/16/19 - 08/26/19 [facility] [address] [place] [address] [facility] Attending Physician: Admtr, Ar8 Allergies, Adverse Reactions, [...] 10:48:07 EST, Aerosol, Route to Pharmacy Electronically, [id number], [facility]/pharmacy #0843, 180, cm, 06/17/19 10:36:11 EST, Height Start Date: 06/17/19 Status: Ordered aspirin 81 mg oral tablet 1 tablet = 81 mg, By Mouth, Daily, # 30 tablet, 11 Refills, Maintenance, 09/03/19 14:22:00 EST, Tablet, [facility]/pharmacy #0843, 180, cm, 08/01/19 10:43:00 EST, Height Start Date: 09/03/19 Stop Date: 08/28/20 Status: Ordered aspirin 81 mg oral tablet 1 tablet = 81 mg, By Mouth, Daily, for 30 days, # 30 tablet, 11 Refills, Hard Stop 09/03/19 14:22:51 EST, 09/08/18 14:22:51 EST, Tablet, [facility]/pharmacy #[id number] Start Date: 09/08/18 Stop Date: [...] Refills, Maintenance, 08/16/19 14:00:00 EST, CR Capsule, [facility]/pharmacy #0843, 172, cm, 08/11/19 13:32:00 EST, [...] 05/09/19 9:31:26 EST, Route to Pharmacy Electronically, [id number], [facility]/pharmacy #0843 Start Date: 05/09/19 Status: Ordered Colace sodium 100 mg oral capsule 100 mg, 1, capsule, By Mouth, 2 times a day, PRN, # 60 capsule, Refills 5, Tot. Refills 5, Maintenance, for constipation, 04/25/19 13:50:52 EDT, Route to Pharmacy Electronically, [id number], [facility]/pharmacy #0843 Start Date: 04/25/19 Status: Ordered [...] 02/14/19 16:39:14 EDT, Route to Pharmacy Electronically, [id number], [facility]/pharmacy #0843 Start Date: 02/14/19 Status: Ordered [...] 01/21/19 11:25:36 EDT, Route to Pharmacy Electronically, [id number], [facility]/pharmacy #0843 Start Date: 01/21/19 Stop Date: [...] 06/21/19 14:10:15 EST, Route to Pharmacy Electronically, [facility]/pharmacy #0843, 180, cm, 06/17/19 10:36:11 EST, Height Start Date: 06/21/19 Status: Ordered metoprolol 50 mg oral tablet 75 mg, 1.5, tablet, By Mouth, 2 times a day, stop metoprolol 50 mg twice daily, # 180 tablet, Refills 2, Tot. Refills 2, Maintenance, 08/26/19 9:30:00 EST, Route to Pharmacy Electronically, [facility]/pharmacy #0843, 172, cm, 08/23/19 10:02:00 EST, Height, 9... Start Date: 08/26/19 Status: Ordered nicotine 2 mg oral transmucosal lozenge 1 lozenge = 2 mg, By Mouth, Every 2 hours, SUCK UP TO Q1 HOURS 10 DAILY, # 144 lozenge, 2 Refills, Maintenance, 07/15/19 12:34:00 EST, [facility]/pharmacy #0843, 1 lozenge By Mouth Every [...] PAIN CALL 911 IF PAIN NOT RELIEVED, [facility]/pharmacy #0843 Start Date: 02/17/19 Status: Ordered NovoLOG FlexPen 100 units/mL subcutaneous solution See Instructions, # 15 Unknown, Refills 5 Tot. Refills 5, INJECT 0-18 UNITS SUBCUTANEOUSLY WITH MEALS FOR SLIDING SCALES, [facility]/pharmacy #0843 Start Date: 01/04/19 Status: Ordered Pen [place], 31 G x 5 mm BD Ultra [...] 01/21/19 11:26:23 EDT, Route to Pharmacy Electronically, [id number], [facility]/pharmacy #0843 Start Date: 01/21/19 Status: Ordered [...] Tablet, this was previously sent to [facility] pharmacy Start Date: 05/17/19 Stop Date: 05/11/20 Status: Ordered Tresiba FlexTouch 200 units/mL subcutaneous solution = 90 units, Subcutaneous Infusion, Daily, at bedtime, # 15 mL, 5 Refills, Maintenance, 08/04/19 13:13:00 EST, [facility]/pharmacy #0843, 180, cm, 08/01/19 10:43:00 EST, [...] 524 weeks therapy with sofosbuvir/weight based ribavirin 04961 inferolateral stent bare metal circumflex 7DR Marissa [...]
--- OUTSIDE RECORDS SUMMARY | 2024-06-01 12:06 | XMS_ITS | Continuity of Care Document ---
Author Organization [facility] Shawn Lazaro lt Address [address] [place] [address]- Care Team Providers Care Dean [employer] Name Role Phone Aylin HICKMAN, Ben Willis Primary Care Physician [phone] Encounter [facility] Date(s): 11/15/21 - 12/15/21 [facility] Adult [address] [place] [address]- Allergies, Adverse Reactions, Alerts Substance Reaction Severity [...] 11:08:00 EDT, 01/23/21 11:08:00 EDT, CR Capsule, [facility]/pharmacy #0843, 175.3, cm, 01/21/21 12:58:00 EDT, [...] 06/24/21 12:51:00 EST, Route to Pharmacy Electronically, [facility]/pharmacy #0843, 175.2, cm, 06/07/21 9:51:00 EST, Height, 88.3, kg, 03/12/21 9:16:00 EDT, Dry... Start Date: 06/24/21 Status: Ordered Daily Simone oral tablet 1 tablet, By Mouth, Daily, # 30 tablet, 5 Refills, Maintenance, 07/29/21 13:53:00 EST, Tablet, [facility]/pharmacy #0843, 1 tablet By Mouth Daily,x30 days, 175.2, cm, 06/07/21 9:51:00 EST, Height, 88.3, kg,03/12/21 9:16:00 EDT, Dry Weight Start Date: 07/29/21 Stop Date: 01/25/22 Status: Ordered docusate sodium 100 mg oral capsule 1 capsule, By Mouth, 2 times a day, PRN NEEDED FOR CONSTIPATION, # 60 capsule, 5 Refills, Maintenance, 06/05/21 15:57:00 EST, [facility]/pharmacy #0843, 175.2, cm, 05/27/21 11:26:00 EST, Height, 88.3, kg, 03/12/21 9:16:00 EDT, Dry Weight Start Date: 06/05/21 Status: Ordered folic acid 1 mg oral tablet 1, tablet, By Mouth, Daily, # 30 tablet, Refills 5, Tot. Refills 5, Maintenance, 07/25/21 15:59:00 EST, Route to Pharmacy Electronically, [facility]/pharmacy #0843, 175.2, cm, 06/07/21 9:51:00 [...] tablet, 5 Refills, Maintenance, 06/05/21 15:57:00 EST, [facility]/pharmacy #0843, 175.2, cm, 05/27/21 11:26:00 EST, Height, 88.3, kg, 03/12/21 9:16:00 EDT, Dry Weight Start Date: 06/05/21 Status: Ordered LaMICtal 100 mg oral tablet 100 mg, 1, tablet, By Mouth, 2 times a day, # 60 tablet, Refills 3, Tot. Refills 3, Maintenance, 01/21/19 11:25:36 EDT, Route to Pharmacy Electronically, [id number], [facility]/pharmacy #0843 Start Date: 01/21/19 Stop [...] 3 Refills, Maintenance, 09/17/21 10:50:00 EDT, Tablet, [facility]/pharmacy #0843, Partial fill upon patient request if the prescription is for a schedule II opioid drug., 175.2, cm, 07/31/21 11:20:00 EST, Heigh... Start Date: 09/17/21 Status: Ordered Metoprolol Tartrate 50 mg oral tablet 1.5 tablet, By Mouth, 2 times a day, # 270 tablet, 0 Refills, [facility] 95356, 175.2, cm, 11/15/21 11:18:00 EDT, Height, 88.3, kg, 03/12/21 9:16:00 EDT, Dry Weight Start Date: 12/12/21 Status: Ordered nicotine 2 mg oral transmucosal lozenge See Instructions, USE 1 LOZENGE UP TO EVERY 1 HOUR NEEDED FOR 10 DAYS, # 162 lozenge, 0 Refills,Maintenance, 12/11/21 9:38:00 EDT, [facility]/pharmacy #0843, 16, USE 1 LOZENGE [...] tablet, 0 Refills, Maintenance, 08/23/21 8:07:00 EST, [facility]/pharmacy #0843, 175.2, cm, 07/31/21 11:20:00 EST, H... Start Date: 08/23/21 Status: Ordered NovoLOG FlexPen 100 units/mL injectable solution See Instructions, INJECT 0-18 UNITS SUBCUTANEOUSLY WITH MEALS FOR SLIDING SCALES, # 15 Unknown, 2 Refills, [facility] 12819, 175.2, cm, 05/27/21 11:26:00 EST, Height, 88.3, kg, 03/12/21 9:16:00 EDT, Dry Weight Start Date: 06/04/21 Status: Ordered Pen [place], 31 G x 5 mm BD Ultra [...] capsule, 5 Refills, Maintenance, 11/19/21 11:25:00EDT, Capsule, [facility]/pharmacy #0843, 175.2, cm, 11/15/21 11:18:00 EDT, Height, 88.3, kg, 03/12/21 9:16:00 EDT, Dry Weight Start Date: 11/19/21 Status: Ordered pregabalin 75 mg oral capsule 1 capsule = 75 mg, By Mouth, Daily, # 30 capsule, 5 Refills, Maintenance, 06/10/21 12:32:00 EST, Capsule, [facility]/pharmacy #0843, 175.2, cm, 06/07/21 9:51:00 EST, Height, 88.3, kg, 03/12/21 9:16:00 EDT, Dry Weight Start Date: 06/10/21 Status: Ordered rosuvastatin 20 mg oral tablet 1 tablet, By Mouth, Daily, # 90 tablet, 1 Refills, Maintenance, 08/15/21 14:24:00 EST, [facility]/pharmacy#0843, 175.2, cm, 07/31/21 11:20:00 EST, Height, 88.3, kg, 03/12/21 9:16:00 EDT, Dry Weight Start Date: 08/15/21 Status: Ordered SEROquel 100 mg oral tablet 100 mg, 1, tablet, By Mouth, 2 times a day, # 60 tablet, Refills 2, Tot. Refills 2, Maintenance, 09/21/19 10:41:00 EDT, Route to Pharmacy Electronically, [facility]/pharmacy #0843, 172, cm, 09/05/19 16:17:00 [...] 0 Refills, Maintenance, 11/29/21 15:58:00 EDT, Suspension, [facility]/pharmacy #0843, 1 drops Eyes, Both 2 [...] # 9 Unknown, 1 Refills, [facility], 175.2, cm, 07/31/21 11:20:00 EST, Height, 88.3, [...] # 30 capsule, 5 Refills, [facility], 175.2, cm, 11/15/21 11:18:00 EDT, Height, 88.3, [...] mild to moderate. 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 2013/[place] 4secondary to hep C 524 weeks therapy with sofosbuvir/weight based ribavirin 15752 inferolateral stent bare metal circumflex 7DR Molddoverno [...]
--- OUTSIDE RECORDS SUMMARY | 2024-06-01 12:07 | XMS_ITS | Continuity of Care Document ---
Author Organization [facility] Shawn Lazaro Address [address] [place] [address]- Care Team Providers Care Cyber Legal Advisor Name Role Phone Aylin HICKMAN, Ben Willis Primary Care Physician [phone] Encounter [facility] Date(s): 11/16/20 - 12/16/20 [facility] Adult [address] [place] [address]- Allergies, Adverse Reactions, Alerts Substance Reaction Severity [...] 10:48:07 EST, Aerosol, Route to Pharmacy Electronically, [id number], [facility]/pharmacy #[id number], 180, cm, 06/17/19 10:36:11 EST, Height Start Date: 06/17/19 Status: Ordered aspirin 81 mg oral delayed release tablet 1 tablet, By Mouth, Daily, # 30 tablet, 11 Refills, Maintenance, 06/26/20 12:19:00 EST, [facility], 175, cm, 06/25/20 16:11:00 EST, Height, 83.6, [...] 5 Refills, Maintenance, 11/02/20 10:48:00 EDT, Capsule, [facility]/pharmacy #[id number], 175, cm, 09/21/20 11:29:00 EDT, [...] 01/21/19 11:25:36 EDT, Route to Pharmacy Electronically, [id number], [facility]/pharmacy #[id number] Start Date: [...] tablet, 0 Refills, Maintenance, 11/16/20 11:46:00 EDT, [facility] ST[facility], 175, cm, 09/21/20 11:29:00 EDT, Height, 83.6, kg, 04/23/20 17:46:00 EDT, Dry Weight Start Date: 11/16/20 Status: Ordered nicotine 2 mg oral transmucosal lozenge See Instructions, suck, up to q1 hrs 10 daily, # 162 lozenge, 1 Refills, Maintenance, 12/12/20 14:39:00 EDT, [facility]/pharmacy #0843, suck, [...] 9:13:... Start Date: 02/01/20 Status: Ordered Pen [place], 31 G x 5 mm BD Ultra [...] Tablet, this was previously sent to [facility] pharmacy Start Date: 05/17/19 Stop Date: 05/11/20 Status: Ordered Tresiba FlexTouch 200 units/mL subcutaneous solution = 14 units, Subcutaneous Infusion, Daily, at bedtime, increase 2 units every 3 days until FBS < 120 per PCP max dose 60 units qday, # 3 each, 1 Refills, Maintenance, 12/10/20 11:14:00 EDT, [facility]/pharmacy #[id number], 175, cm, 09/21/20 11:29:00 EDT, Height, 83... Start Date: 12/10/20 Status: Ordered Problem List Condition Effective Dates Status Health Status Inform ant Acute pancreatitis(Confirmed) 07/16/16 Active Adenomatous colon polyp colo noscopy 2016(Confirmed) Active Bipolar disorder(Confirmed) Active Cervical spondylosis(Confirmed) Active Chronic back pain DJD(Confirmed) Active Glomerulonephritis,mesangial proliferative/fibrillary(Confirmed) 1, 2 [place] ASHD; [place]/stent circumfl ex vessel cath;abdelrahman 2018(Confirmed) 3 [...] mild to moderate. 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 2012/[place] 4secondary to hep C 524 weeks therapy with sofosbuvir/weight based ribavirin 54909 inferolateral stent bare metal circumflex 7DR Marissa [...]
--- OUTSIDE RECORDS SUMMARY | 2024-06-01 12:07 | XMS_ITS | Continuity of Care Document ---
Author Organization [facility] Address [address] [place] [address]- Care Team Providers Care Bean Weigher Name Role Phone Ben Viera MD Primary Care Physician [place] [facility](s): 04/03/20 - 05/11/20 [facility] [address] [place] [address]- Attending Physician: Jeffrey Leon MD Admitting Physician: [...] 10:48:07 EST, Aerosol, Route to Pharmacy Electronically, [id number], [facility]/pharmacy #0843, 180, [...] 01/02/20 15:47:00 EDT, CR Capsule, [facility]/pharmacy #0843, 172, cm, 12/14/19 8:02:00 EDT, Height, 97.8, kg, 08/11/19 5:24:00 EST, Dry Weight Start Date: 01/02/20 Stop Date: 12/27/20 Status: Ordered cholecalciferol 2000 intl units oral capsule 1 capsule = 2,000 International_Units, By Mouth, Daily, # 30 capsule, 5 Refills, Maintenance, 11/02/19 10:15:00 EDT, Capsule, [facility]/pharmacy #0843, 172, cm, 09/05/19 16:17:00 EST, Height, 97.8, kg, 08/11/19 5:24:00 EST, Dry Weight Start Date: 11/02/19 Status: Ordered cloNIDine 0.2 mg oral tablet 0.2 mg, 1, tablet, By Mouth, 2 times a day, # 60 tablet, Refills 2, Tot. Refills 2, Maintenance, 03/08/20 16:50:00 EDT, Route to Pharmacy Electronically, [facility]/pharmacy #0843, 172, cm, 12/14/19 8:02:00EDT, Height, 97.8, kg, 08/11/19 5:24:00 EST, Dry We... Start Date: 03/08/20 Status: Ordered Colace sodium 100 mg oral capsule 100 mg, 1, capsule, By Mouth, 2 times a day, PRN, # 60 capsule, Refills 5, Tot. Refills 5, Maintenance, for constipation, 02/27/20 15:25:00 EDT, Route to Pharmacy Electronically, [facility]/pharmacy #0843, 172, cm, 12/14/19 8:02:00 EDT, Height, 97.8, kg, ... Start Date: 02/27/20 Status: Ordered Crestor 20 mg oral tablet 1 tablet = 20 mg, By Mouth, Daily, # 90 tablet, 3 Refills, Maintenance, 01/02/20 15:46:00 EDT, Tablet, [facility]/pharmacy #0843, 172, cm, 12/14/19 8:02:00 EDT, Height, 97.8, kg, 08/11/19 5:24:00 EST, Dry Weight Start Date: 01/02/20 Status: Ordered Daily Simone oral tablet 1 tablet, By Mouth, Daily, # 30 tablet, 5 Refills, Maintenance, 03/01/20 14:48:00 EDT, Tablet, [facility]/pharmacy #0843, 1 tablet By Mouth Daily,x30 days, 172, cm, 12/14/19 8:02:00 EDT, Height, 97.8, kg, 08/11/19 5:24:00 EST, Dry Weight Start Date: 03/01/20 Stop Date: 08/28/20 Status: Ordered folic acid 1 mg oral tablet 1 mg, 1, tablet, By Mouth, Daily, # 30 tablet, Refills 5, Tot. Refills 5, Maintenance, 12/29/19 11:13:00 EDT, Route to Pharmacy Electronically, [facility]/pharmacy #0843, 172, cm, 12/14/19 8:02:00 [...] Refills, Maintenance, 02/27/20 15:23:00 EDT, [facility]/pharmacy #0843, 172, cm, 12/14/19 8:02:00 EDT, Height, 97.8, kg, 08/11/19 5:24:00 EST, Dry Weight Start Date: 02/27/20 Status: Ordered LaMICtal 100 mg oral tablet 100 mg, 1, tablet, By Mouth, 2 times a day, # 60 tablet, Refills 3, Tot. Refills 3, Maintenance, 01/21/19 11:25:36 EDT, Route to Pharmacy Electronically, [id number], [facility]/pharmacy #0843 Start [...] EDT, Route to Pharmacy Electronically, [facility]/pharmacy #0843, 172, cm, 12/14/19 8:02:00 EDT, Height, 9... Start Date: 01/02/20 Status: Ordered nicotine 2 mg oral transmucosal lozenge See Instructions, suck, up to q1 hrs 10 daily, # 144 lozenge, 1 Refills, Maintenance, 03/21/20 11:13:00 EDT, [facility]/pharmacy #0843, suck, up to q1 hrs 10 daily, 172, cm, 03/21/20 11:04:00 EDT, Height, 97.8, kg, 08/11/19 5:24:00 EST, Dry Weight Start Date: 03/21/20 Status: Ordered nicotine 4 mg oral transmucosal lozenge 1 lozenge = 4 mg, By Mouth, Every hour, # 132 lozenge, 1 Refills, Maintenance, 11/29/19 8:13:00 EDT, [facility]/pharmacy #0843, 1 [...] WEEKLY, # 1.5 Unknown, 0 Refills, Maintenance, [facility] STORE [facility], 172, cm, 12/14/19 8:02:00 EDT, Height, 97.8, kg, 08/11/19 5:24:00 EST, Dry Weight Start Date: 02/09/20 Status: Ordered Pen [place], 31 G x 5 mm BD Ultra [...] EDT, Route to Pharmacy Electronically, [facility]/pharmacy #[id number], 172, cm, 09/05/19 [...] EST, Tablet, this was previously sent to [facility] pharmacy Start Date: 05/17/19 Stop Date: [...] 524 weeks therapy with sofosbuvir/weight based ribavirin 02017 inferolateral stent bare metal circumflex 7DR Marissa [...]
--- OUTSIDE RECORDS SUMMARY | 2024-06-01 12:07 | XMS_ITS | Continuity of Care Document ---
Author Organization [facility] ter Address [address] [place] [address]- Care Team Providers Care Dot Compliance Specialist Name Role Phone Ben Viera MD Primary Care Physician Encounter [facility] Date(s): 08/02/19 - 09/09/[address] [address]- [facility] Attending Physician: Ben Viera MD Admitting Physician: [...] 10:48:07 EST, Aerosol, Route to Pharmacy Electronically, [id number], [facility]/pharmacy #0843, 180, cm, 06/17/19 10:36:11 EST, Height Start Date: 06/17/19 Status: Ordered aspirin 81 mg oral tablet 1 tablet = 81 mg, By Mouth, Daily, # 30 tablet, 11 Refills, Maintenance, 09/03/19 14:22:00 EST, Tablet, [facility]/pharmacy #[id number], 180, cm, 08/01/19 10:43:00 EST, Height [...] Refills, Maintenance, 08/16/19 14:00:00 EST, CR Capsule, [facility]/pharmacy #[id number], 172, cm, 08/11/19 13:32:00 EST, Height, [...] 05/09/19 9:31:26 EST, Route to Pharmacy Electronically, [id number], [facility]/pharmacy #[id number] Start Date: 05/09/19 Status: Ordered Colace sodium 100 mg oral capsule 100 mg, 1, capsule, By Mouth, 2 times a day, PRN, # 60 capsule, Refills 5, Tot. Refills 5, Maintenance, for constipation, 04/25/19 13:50:52 EDT, Route to Pharmacy Electronically, [id number], [facility]/pharmacy #[id number] Start Date: 04/25/19 Status: Ordered Crestor [...] 02/14/19 16:39:14 EDT, Route to Pharmacy Electronically, [id number], [facility]/pharmacy #[id number] Start Date: 02/14/19 Status: Ordered Freestyle [...] 01/21/19 11:25:36 EDT, Route to Pharmacy Electronically, [id number], [facility]/pharmacy #0843 Start Date: [...] Pharmacy Electronically, [facility]/pharmacy #[id number], 180, cm, 06/17/19 10:36:11 EST, Height Start Date: 06/21/19 Status: Ordered metoprolol 50 mg oral tablet 75 mg, 1.5, tablet, By Mouth, 2 times a day, stop metoprolol 50 mg twice daily, # 180 tablet, Refills 2, Tot. Refills 2, Maintenance, 08/26/19 9:30:00 EST, Route to Pharmacy Electronically, [facility]/pharmacy #[id number], 172, cm, 08/23/19 10:02:00 EST, Height, 9... Start Date: 08/26/19 Status: Ordered nicotine 2 mg oral transmucosal lozenge 1 lozenge = 2 mg, By Mouth, Every 2 hours, SUCK UP TO Q1 HOURS 10 DAILY, # 144 lozenge, 2 Refills, Maintenance, 07/15/19 12:34:00 EST, [facility]/pharmacy #[id number], 1 lozenge By Mouth Every 2 [...] 911 IF PAIN NOT RELIEVED, [facility]/pharmacy #[id number] Start Date: 02/17/19 Status: Ordered NovoLOG FlexPen 100 units/mL subcutaneous solution See Instructions, # 15 Unknown, Refills 5 Tot. Refills 5, INJECT 0-18 UNITS SUBCUTANEOUSLY WITH MEALS FOR SLIDING SCALES, [facility]/pharmacy #[id number] Start Date: 01/04/19 Status: Ordered Pen [place], 31 G x 5 mm BD [...] 01/21/19 11:26:23 EDT, Route to Pharmacy Electronically, [id number], [facility]/pharmacy #[id number] Start Date: 01/21/19 Status: Ordered SEROquel [...] EST, Tablet, this was previously sent to [facility] pharmacy Start Date: 05/17/19 Stop Date: 05/11/20 Status: Ordered Tresiba FlexTouch 200 units/mL subcutaneous solution = 90 units, Subcutaneous Infusion, Daily, at bedtime, # 15 mL, 5 Refills, Maintenance, 08/04/19 13:13:00 EST, [facility]/pharmacy #[id number], 180, cm, 08/01/19 10:43:00 EST, Height [...] renal insufficiency, stage III (moderate)(Confirmed) Active ASHD; [place] 2012/stent circumfl ex vessel cath;abdelrahman 2018(Confirmed) 3 [...] mild to moderate. 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
--- OUTSIDE RECORDS SUMMARY | 2024-06-01 12:07 | XMS_ITS | Continuity of Care Document ---
Author Organization [facility] Address [address] [place] [address]- Care Team Providers Care Swat Team Member Name Role Phone Aylin HICKMAN, Ben Willis Primary Care Physician Encounter [facility] Date(s): 04/05/20 - 05/11/[address] [email or web address] Attending Physician: Jeffrey Leon MD Admitting Physician: [...] 10:48:07 EST, Aerosol, Route to Pharmacy Electronically, [id number], [facility]/pharmacy #[id number], 180, cm, 06/17/19 10:36:11 EST, Height Start Date: 06/17/19 Status: Ordered aspirin 81 mg oral tablet 1 tablet = 81 mg, By Mouth, Daily, # 30 tablet, 11 Refills, Maintenance, 09/03/19 14:22:00 EST, Tablet, [facility]/pharmacy #[id number], 180, cm, 08/01/19 10:43:00 EST, [...] Maintenance, 01/02/20 15:47:00 EDT, CR Capsule, [facility]/pharmacy #[id number], 172, cm, 12/14/19 8:02:00 EDT, Height, 97.8, kg, 08/11/19 5:24:00 EST, Dry Weight Start Date: 01/02/20 Stop Date: 12/27/20 Status: Ordered cholecalciferol 2000 intl units oral capsule 1 capsule = 2,000 International_Units, By Mouth, Daily, # 30 capsule, 5 Refills, Maintenance, 11/02/19 10:15:00 EDT, Capsule, [facility]/pharmacy #[id number], 172, cm, 09/05/19 16:17:00 EST, Height, 97.8, kg, 08/11/19 5:24:00 EST, Dry Weight Start Date: 11/02/19 Status: Ordered cloNIDine 0.2 mg oral tablet 0.2 mg, 1, tablet, By Mouth, 2 times a day, # 60 tablet, Refills 2, Tot. Refills 2, Maintenance, 03/08/20 16:50:00 EDT, Route to Pharmacy Electronically, [facility]/pharmacy #[id number], 172, cm, 12/14/19 8:02:00EDT, Height, 97.8, kg, 08/11/19 5:24:00 EST, Dry We... Start Date: 03/08/20 Status: Ordered Colace sodium 100 mg oral capsule 100 mg, 1, capsule, By Mouth, 2 times a day, PRN, # 60 capsule, Refills 5, Tot. Refills 5, Maintenance, for constipation, 02/27/20 15:25:00 EDT, Route to Pharmacy Electronically, [facility]/pharmacy #[id number], 172, cm, 12/14/19 8:02:00 EDT, Height, 97.8, kg, 02... Start Date: 02/27/20 Status: Ordered Crestor 20 mg oral tablet 1 tablet = 20 mg, By Mouth, Daily, # 90 tablet, 3 Refills, Maintenance, 01/02/20 15:46:00 EDT, Tablet, [facility]/pharmacy #[id number], 172, cm, 12/14/19 8:02:00 EDT, Height, 97.8, kg, 08/11/19 5:24:00 EST, Dry Weight Start Date: 01/02/20 Status: Ordered Daily Simone oral tablet 1 tablet, By Mouth, Daily, # 30 tablet, 5 Refills, Maintenance, 03/01/20 14:48:00 EDT, Tablet, [facility]/pharmacy #[id number], 1 tablet By Mouth Daily,x30 days, 172, cm, 12/14/19 8:02:00 EDT, Height, 97.8, kg, 08/11/19 5:24:00 EST, Dry Weight Start Date: 03/01/20 Stop Date: 08/28/20 Status: Ordered folic acid 1 mg oral tablet 1 mg, 1, tablet, By Mouth, Daily, # 30 tablet, Refills 5, Tot. Refills 5, Maintenance, 12/29/19 11:13:00 EDT, Route to Pharmacy Electronically, [facility]/pharmacy #[id number], 172, cm, 12/14/19 8:02:00 EDT, [...] 5 Refills, Maintenance, 02/27/20 15:23:00 EDT, [facility]/pharmacy #0843, 172, cm, 12/14/19 8:02:00 EDT, Height, 97.8, kg, 08/11/19 5:24:00 EST, Dry Weight Start Date: 02/27/20 Status: Ordered LaMICtal 100 mg oral tablet 100 mg, 1, tablet, By Mouth, 2 times a day, # 60 tablet, Refills 3, Tot. Refills 3, Maintenance, 01/21/19 11:25:36 EDT, Route to Pharmacy Electronically, [id number], [facility]/pharmacy #[id number] Start Date: 01/21/19 [...] 15:45:00 EDT, Route to Pharmacy Electronically, [facility]/pharmacy #[id number], 172, cm, 12/14/19 8:02:00 EDT, Height, 9... Start Date: 01/02/20 Status: Ordered nicotine 2 mg oral transmucosal lozenge See Instructions, suck, up to q1 hrs 10 daily, # 144 lozenge, 1 Refills, Maintenance, 03/21/20 11:13:00 EDT, [facility]/pharmacy #0843, suck, up to q1 hrs 10 daily, 172, cm, 03/21/20 11:04:00 EDT, Height, 97.8, kg, 08/11/19 5:24:00 EST, Dry Weight Start Date: 03/21/20 Status: Ordered nicotine 4 mg oral transmucosal lozenge 1 lozenge = 4 mg, By Mouth, Every hour, # 132 lozenge, 1 Refills, Maintenance, 11/29/19 8:13:00 EDT, [facility]/pharmacy #0843, 1 lozenge By Mouth Every [...] PAIN CALL 911 IF PAIN NOT RELIEVED, [facility]/pharmacy #[id number] Start Date: 02/17/19 Status: Ordered [...] WEEKLY, # 1.5 Unknown, 0 Refills, Maintenance, [facility] 98209, 172, cm, 12/14/19 8:02:00 EDT, Height, 97.8, kg, 08/11/19 5:24:00 EST, Dry Weight Start Date: 02/09/20 Status: Ordered Pen [place], 31 G x 5 mm BD Ultra [...] EST, Tablet, this was previously sent to [facility] pharmacy Start Date: 05/17/19 Stop Date: [...] long-term use(Confirmed) Active Dysphagia(Confirmed) Active Ex-smoker quit 2018/formerly [facility] t enrolled(Confirmed) Active Fibrillary glomerulonephritis(Confirmed) 4 Active [...] mild to moderate. 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
--- OUTSIDE RECORDS SUMMARY | 2024-06-01 12:07 | XMS_ITS | Continuity of Care Document ---
Author Organization [facility] Shawn Lazaro lt Address [address] [place] [address]- Care Team Providers Care Pickling Operator Name Role Phone Aylin HICKMAN, Ben Willis Primary Care Physician Encounter [facility] Date(s): 11/15/21 - 12/15/21 [facility] [address] [place] [address]- Allergies, Adverse Reactions, Alerts Substance Reaction Severity [...] 11:08:00 EDT, 01/23/21 11:08:00 EDT, CR Capsule, [facility]/pharmacy #[id number], 175.3, cm, 01/21/21 12:58:00 [...] 06/24/21 12:51:00 EST, Route to Pharmacy Electronically, [facility]/pharmacy #[id number], 175.2, cm, 06/07/21 9:51:00 EST, Height, 88.3, kg, 03/12/21 9:16:00 EDT, Dry... Start Date: 06/24/21 Status: Ordered Daily Simone oral tablet 1 tablet, By Mouth, Daily, # 30 tablet, 5 Refills, Maintenance, 07/29/21 13:53:00 EST, Tablet, [facility]/pharmacy #[id number], 1 tablet By Mouth Daily,x30 days, 175.2, cm, 06/07/21 9:51:00 EST, Height, 88.3, kg,03/12/21 9:16:00 EDT, Dry Weight Start Date: 07/29/21 Stop Date: 01/25/22 Status: Ordered docusate sodium 100 mg oral capsule 1 capsule, By Mouth, 2 times a day, PRN NEEDED FOR CONSTIPATION, # 60 capsule, 5 Refills, Maintenance, 06/05/21 15:57:00 EST, [facility]/pharmacy #[id number], 175.2, cm, 05/27/21 11:26:00 EST, Height, 88.3, kg, 03/12/21 9:16:00 EDT, Dry Weight Start Date: 06/05/21 Status: Ordered folic acid 1 mg oral tablet 1, tablet, By Mouth, Daily, # 30 tablet, Refills 5, Tot. Refills 5, Maintenance, 07/25/21 15:59:00 EST, Route to Pharmacy Electronically, [facility]/pharmacy #[id number], 175.2, cm, 06/07/21 9:51:00 [...] tablet, 5 Refills, Maintenance, 06/05/21 15:57:00 EST, [facility]/pharmacy #[id number], 175.2, cm, 05/27/21 11:26:00 EST, Height, 88.3, kg, 03/12/21 9:16:00 EDT, Dry Weight Start Date: 06/05/21 Status: Ordered LaMICtal 100 mg oral tablet 100 mg, 1, tablet, By Mouth, 2 times a day, # 60 tablet, Refills 3, Tot. Refills 3, Maintenance, 01/21/19 11:25:36 EDT, Route to Pharmacy Electronically, [id number], [facility]/pharmacy #[id number] Start Date: 01/21/19 Stop [...] Refills, Maintenance, 09/17/21 10:50:00 EDT, Tablet, [facility]/pharmacy #0843, Partial fill upon patient request if the prescription is for a schedule II opioid drug., 175.2, cm, 07/31/21 11:20:00 EST, Heigh... Start Date: 09/17/21 Status: Ordered Metoprolol Tartrate 50 mg oral tablet 1.5 tablet, By Mouth, 2 times a day, # 270 tablet, 0 Refills, [facility] ST[facility] 98349, 175.2, cm, 11/15/21 11:18:00 EDT, Height, 88.3, kg, 03/12/21 9:16:00 EDT, Dry Weight Start Date: 12/12/21 Status: Ordered nicotine 2 mg oral transmucosal lozenge See Instructions, USE 1 LOZENGE UP TO EVERY 1 HOUR NEEDED FOR 10 DAYS, # 162 lozenge, 0 Refills,Maintenance, 12/11/21 9:38:00 EDT, [facility]/pharmacy #0843, 16, USE 1 LOZENGE [...] tablet, 0 Refills, Maintenance, 08/23/21 8:07:00 EST, [facility]/pharmacy #0843, 175.2, cm, 07/31/21 11:20:00 EST, H... Start Date: 08/23/21 Status: Ordered NovoLOG FlexPen 100 units/mL injectable solution See Instructions, INJECT 0-18 UNITS SUBCUTANEOUSLY WITH MEALS FOR SLIDING SCALES, # 15 Unknown, 2 Refills, [facility] ST[facility], 175.2, cm, 05/27/21 11:26:00 EST, Height, 88.3, kg, 03/12/21 9:16:00 EDT, Dry Weight Start Date: 06/04/21 Status: Ordered Pen [place], 31 G x 5 mm BD Ultra [...] 5 Refills, Maintenance, 11/19/21 11:25:00EDT, Capsule, [facility]/pharmacy #[id number], 175.2, cm, 11/15/21 11:18:00 EDT, Height, 88.3, kg, 03/12/21 9:16:00 EDT, Dry Weight Start Date: 11/19/21 Status: Ordered pregabalin 75 mg oral capsule 1 capsule = 75 mg, By Mouth, Daily, # 30 capsule, 5 Refills, Maintenance, 06/10/21 12:32:00 EST, Capsule, [facility]/pharmacy #[id number], 175.2, cm, 06/07/21 9:51:00 EST, Height, 88.3, kg, 03/12/21 9:16:00 EDT, Dry Weight Start Date: 06/10/21 Status: Ordered rosuvastatin 20 mg oral tablet 1 tablet, By Mouth, Daily, # 90 tablet, 1 Refills, Maintenance, 08/15/21 14:24:00 EST, [facility]/pharmacy#0843, 175.2, cm, 07/31/21 11:20:00 EST, Height, 88.3, kg, 03/12/21 9:16:00 EDT, Dry Weight Start Date: 08/15/21 Status: Ordered SEROquel 100 mg oral tablet 100 mg, 1, tablet, By Mouth, 2 times a day, # 60 tablet, Refills 2, Tot. Refills 2, Maintenance, 09/21/19 10:41:00 EDT, Route to Pharmacy Electronically, [facility]/pharmacy #[id number], 172, cm, 09/05/19 16:17:00 [...] 0 Refills, Maintenance, 11/29/21 15:58:00 EDT, Suspension, [facility]/pharmacy #0843, 1 drops Eyes, Both [...] # 9 Unknown, 1 Refills, [facility], 175.2, cm, 07/31/21 11:20:00 EST, Height, 88.3, [...] # 30 capsule, 5 Refills, [facility], 175.2, cm, 11/15/21 11:18:00 EDT, Height, 88.3, kg, 03/12/21 9:16:00 EDT, Dry Weight Start Date: 11/17/21 Status: Ordered Problem List Condition Effective Dates Status Health Status Inform ant Bipolar disorder(Confirmed) Active Cervical spondylosis(Confirmed) Active Chronic back pain DJD(Confirmed) Active Glomerulonephritis,mesangial proliferative/fibrillary(Confirmed) 1, 2 Active Chronic renal failure, stage 4 (severe)(Confirmed) Active ASHD; [place] 2012/stent circumfl ex vessel [...] 524 weeks therapy with sofosbuvir/weight based ribavirin 76660 inferolateral stent bare metal circumflex 7DR Molddoverno [...]
--- OUTSIDE RECORDS SUMMARY | 2024-06-01 12:07 | XMS_ITS | Continuity of Care Document ---
Author Organization [facility] ter Address [address] [place] [address]- Care Team Providers Care Car Jockey Name Role Phone Carrie Kelly RIVERA Primary Care Physician [phone] Encounter [facility] Date(s): 02/07/24 - 02/08/[address] [address]- Encounter Diagnosis Hyperglycemia(Final) - 02/08/24 Bronchitis(Final) - 02/08/24 Leukocytosis(Final) - 02/08/24 Type 2 diabetes mellitus with hyperglycemia(Final) - 02/08/24 Hyperglycemia, drug-induced(Final) - 02/08/24 Chest pain(Final) - 02/08/24 Cough(Final) - 02/08/24 Discharge Disposition: A-D/C Home Attending Physician: Alley Kang MD Admitting Physician: Alley Kang MD Referring Physician: Not on Staff, Referring MD Allergies, Adverse Reactions, Alerts Substance Reaction Severity Status Bee Stings Active Immunizations Given and Recorded Vaccine Date Status Refusal Reason SARS-CoV-2(COVID-19)mRNA-LNP vac(pto536) 12/31/23 Recorded SARS-CoV-2(COVID-19)mRNA-LNP vac(vki530) 05/08/23 Recorded tetanus/diphtheria/pertussis, acel(Tdap) 10/15/23 Recorded tetanus/diphtheria/pertussis, [...] 02/03/23 Recorded zoster vaccine, inactivated 08/09/19 Recorded [id number] 12y+ bivalent booster vax 05/17/22 Recorded SARS-CoV-2 [...] adult vaccine 4 12/10/10 Given 1Result Comment: [id number] 2Result Comment: [id number] 3Admin Note: pt waited 10 mins post [...] 02/02/24 15:26:00 EDT, Route to Pharmacy Electronically, [facility]/pharmacy #... Start Date: 02/02/24 Status: Ordered Aerochamber [...] day prn cough (Max 600 mg in o40-helt period), # 30 capsule, 0 Refills, Maintenance, [...] 01/11/24 14:46:00 EDT, Tablet, [facility]/pharmacy #[id number], Partial fill upon patient request if the prescription is for a schedule II opioid drug., 168, cm, 01/11/24 14:42:00 EDT, Height,... Start Date: 01/11/24 Status: Ordered DilTIAZem (Eqv-Cardizem CD) 180 mg/24 hours oral capsule, extended release 1 capsule, By Mouth, Daily, # 90 capsule, 0 Refills, Maintenance, 11/10/23 22:03:00 EDT, [facility], 168, cm, 10/27/23 15:34:00 EDT, Height, 93, [...] 01/21/19 11:25:36 EDT, Route to Pharmacy Electronically, [id number], [facility]/pharmacy #[id number] Start Date: 01/21/19 Stop Date: 05/21/19 Status: Ordered lisinopril 40 mg oral tablet 1 tablet, By Mouth, Daily, # 90 tablet, 1 Refills, Maintenance, 01/26/24 9:20:00 EDT, [facility] STORE [facility], 168, cm, 01/11/24 14:42:00 EDT, Height, 93, [...] mL, 0 Refills, Maintenance, 02/02/24 15:28:00 EDT, [place], [facility]/pharmacy #[id number], Partial fill upon patient... Start Date: 02/02/24 Status: Ordered Pen [place], 31 G x 5 mm BD Ultra [...] Refills, Maintenance, 02/04/24 16:39:00 EDT, [facility], 168, cm, 02/03/24 10:41:00 EDT, Height Start [...] Confirmed Active ASHD; [place] 2012/stent circumflex vessel cath;abdelramhan 2019 3 Confirmed Active Epididymal cyst rt [...] wall 6 Confirmed Active Hyperlipidemia Confirmed Active Secondary [...] 524 weeks therapy with sofosbuvir/weight based ribavirin 10379 inferolateral stent bare metal circumflex 7DR Moldvernmateo sx;Dr Schwartz 8hyperplatic polyp repeat screening in 2025 9repeat colonoscopy in 5 years Results Radiology Reports * Exam Date Time Procedure Performing Provider Status 02/08/24 12:19 AM Chest 2 Views Frontal and Lat Najma Berg; Auth (Verified) Notes: (Chest 2 Views Frontal and Lat) Reason For Exam: Shortness of Breath RESULT: Chest 2 Views Frontal and Lat Chest 2 Views Frontal and Lat Hx of Present Illness: bronchitis x 4 days ago, put on prednesone, POC today was 486. pt. thinks heforgot to take his blood pressure meds toda; Reason: Shortness of Breath; Clinical Question(s): Other: COMPARISON: Multiple prior chest radiographs with the most recent dated 02/02/2024. FINDINGS: LINES AND TUBES: None. LUNGS AND PLEURA: Clear lungs. Normal pulmonary vascularity. Minimal blunting of the costophrenic angles posteriorly unchanged probably chronic in nature. Multiple small known pulmonary nodules not well appreciated on the present examination. No pleural effusion. No pneumothorax. HEART, MEDIASTINUM AND CINTHYA: Heart is normal in size. Normal mediastinal and hilar contour. BONES AND SOFT TISSUES: No acute abnormality. Mild degenerative change thoracic spine. Multiple old healed right-sided rib fractures unchanged. IMPRESSION: No acute abnormality. WSN: [id number] Ordering Physician: Alley Kang Dictated By: Yariel Luna MD, V Dictated Date/Time: 02/08/24 7:24 am Reviewed By: Yariel Luna MD, V Signed By: Yariel Luna MD, V Signed Date/Time: 02/08/24 7:24 am Transcribed By: AYSHA Transcribed Date/Time: 02/08/24 7:22 am Vital Signs Most recent to oldest [Reference Range]: 1 2 3 Oxygen Saturation [94-100 %] 98 % (02/08/24: AM) 98 % (02/08/24 1:10 AM) 95 % (02/07/24 8:51 PM) Pulse Rate [55-90 bpm] 87 bpm (02/08/24: AM) 95 bpm *H* (02/08/24 1:10 AM) 96 bpm *H* (02/07/24 8:51 PM) Blood Pressure [90-138/55-84 mm Hg] 167/78mm Hg *H* (02/08/24:26 AM) 174/76mm Hg *H* (02/08/24 1:10 AM) 188/75mm Hg *H* (02/07/24 8:51 PM) Respiratory Rate [16-30 br/min] 20 br/min (02/08/24:26 AM) 18 br/min (02/08/24 1:10 AM) 20 br/min (02/07/24 8:51 PM) Temperature [96.8-100.4 DegF] 98.8 DegF (02/07/24 8:51 PM) Mode of Delivery (Oxygen) Room air (02/08/24:26 AM) Room air (02/08/24 1:10 AM) Room air (02/07/24 8:51 PM) Blood pressure sites Arm, left (02/08/24 4:26 AM) Arm, left (02/08/24 1:10 AM) Arm, left (02/07/24 8:51 PM) Temperature Route Oral (02/07/24 8:51 PM) Social History Social History Type Response Smoking Status Former smoker, quit more than 30 days ago; Interested in cessation: No; Other: quit; Tobacco use times per day: prio 1/2-1 ppd; Total pack years: 38; Started at age: 12; Stopped at age: 63; entered on: 07/20/20 Sex Patient Care team information Care Team Personnel Name: Darius HICKMAN, Jeffrey Lopez Position: [facility] Renal MD Member Role: Lifetime Consulting Physician Address: Address: [address] [place], [place] [address] [place], [place] [address] Name: Kelly Butler NP Position: [facility] PCO Associate Professional Member Role: PCP Address: Address: [address] [place] [address] [id number] Name: Kristin Mckenzie Position: [facility] Outreach Member Role: Lifetime Consulting Physician Name: Prieto Tobin RN Position: S RN Member Role: Primary Care Nurse Name: Jonn Hui DO Position: [facility] Renal MD Member Role: Lifetime Consulting Physician Address: Address: [address] [place], [place] [address] [place], [place] [address] Name: Luis Angel Stephen RN Position: [facility] RN Member Role: Primary Care Nurse Care Team Related Persons Name: CARLOS A BORDEN Address: home [address] [place] [address] Name: LEVI OBRDEN Address: home [address] [place] [address]
--- OUTSIDE RECORDS SUMMARY | 2024-06-01 12:07 | XMS_ITS | Continuity of Care Document ---
Author Organization [facility] Shawn Lazaro lt Address [address] [place] [address]- Care Team Providers Care Lighting Director Name Role Phone Aylin HICKMAN, Ben Willis Primary Care Physician Encounter [facility] Date(s): 11/18/21 - 12/18/21 [facility] Adult [address] [place] [address]- Allergies, Adverse Reactions, Alerts Substance Reaction Severity [...] 06/24/21 12:51:00 EST, Route to Pharmacy Electronically, [facility]/pharmacy #[id number], 175.2, cm, 06/07/21 9:51:00 EST, Height, 88.3, kg, 03/12/21 9:16:00 EDT, Dry... Start Date: 06/24/21 Status: Ordered Daily Simone oral tablet 1 tablet, By Mouth, Daily, # 30 tablet, 5 Refills, Maintenance, 07/29/21 13:53:00 EST, Tablet, [facility]/pharmacy #[id number], 1 [...] 07/25/21 15:59:00 EST, Route to Pharmacy Electronically, [facility]/pharmacy #[id number], 175.2, cm, 06/07/21 9:51:00 [...] tablet, 5 Refills, Maintenance, 06/05/21 15:57:00 EST, [facility]/pharmacy #[id number], 175.2, cm, 05/27/21 11:26:00 EST, Height, 88.3, kg, 03/12/21 9:16:00 EDT, Dry Weight Start Date: 06/05/21 Status: Ordered LaMICtal 100 mg oral tablet 100 mg, 1, tablet, By Mouth, 2 times a day, # 60 tablet, Refills 3, Tot. Refills 3, Maintenance, 01/21/19 11:25:36 EDT, Route to Pharmacy Electronically, [id number], [facility]/pharmacy #[id number] Start Date: 01/21/19 Stop Date: 05/21/19 Status: Ordered lisinopril 40 mg oral tablet 1 tablet = 40 mg, By Mouth, Daily, # 30 tablet, 3 Refills, Maintenance, 09/17/21 10:50:00 EDT, Tablet, [facility]/pharmacy #[id number], Partial fill upon patient request if the prescription is for a schedule II opioid drug., 175.2, cm, 07/31/21 11:20:00 EST, Heigh... Start Date: 09/17/21 Status: Ordered Metoprolol Tartrate 50 mg oral tablet 1.5 tablet, By Mouth, 2 times a day, # 270 tablet, 0 Refills, [facility] STORE 94[facility], 175.2, cm, 11/15/21 11:18:00 EDT, Height, 88.3, kg, 03/12/21 9:16:00 EDT, Dry Weight Start Date: 12/12/21 Status: Ordered nicotine 2 mg oral transmucosal lozenge See Instructions, USE 1 LOZENGE UP TO EVERY 1 HOUR NEEDED FOR 10 DAYS, # 162 lozenge, 0 Refills,Maintenance, 12/11/21 9:38:00 EDT, [facility]/pharmacy #[id number], 16, USE 1 LOZENGE [...] # 15 Unknown, 2 Refills, [facility], 175.2, cm, 05/27/21 11:26:00 EST, Height, 88.3, kg, 03/12/21 9:16:00 EDT, Dry Weight Start Date: 06/04/21 Status: Ordered Pen [place], 31 G x 5 mm BD Ultra [...] tablet, 1 Refills, Maintenance, 08/15/21 14:24:00 EST, [facility]/pharmacy#0843, 175.2, cm, 07/31/21 11:20:00 EST, Height, 88.3, kg, 03/12/21 9:16:00 EDT, Dry Weight Start Date: 08/15/21 Status: Ordered SEROquel 100 mg oral tablet 100 mg, 1, tablet, By Mouth, 2 times a day, # 60 tablet, Refills 2, Tot. Refills 2, Maintenance, 09/21/19 10:41:00 EDT, [id number] 172, cm, 09/05/19 16:17:00 EST, Height, [...] 3 Refills, Maintenance, 12/18/21 14:33:00 EDT, Suspension, [facility]/pharmacy #[id number], 1 drops Eyes, Both [...] # 9 Unknown, 1 Refills, [facility], 175.2, cm, 07/31/21 11:20:00 EST, Height, 88.3, [...] # 30 capsule, 5 Refills, [facility], 175.2, cm, 11/15/21 11:18:00 EDT, Height, 88.3, kg, 03/12/21 9:16:00 EDT, Dry Weight Start Date: 11/17/21 Status: Ordered Problem List Condition Effective Dates Status Health Status Inform ant Bipolar disorder(Confirmed) Active Cervical spondylosis(Confirmed) Active Chronic back pain DJD(Confirmed) Active Glomerulonephritis,mesangial proliferative/fibrillary(Confirmed) 1, 2 Active Chronic renal failure, stage 4 (severe)(Confirmed) Active ASHD; [place] 2012/ circumfl ex vessel cath;adbelrahman 2018(Confirmed) 3 Active Epididymal cyst rt(Confirmed) 04/18/19 [...] mild to moderate. 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 2013/[place] 4secondary to hep C 524 weeks therapy with sofosbuvir/weight based ribavirin 90420 inferolateral stent bare metal circumflex 7DR Molddoverno [...]
--- OUTSIDE RECORDS SUMMARY | 2024-06-01 12:07 | XMS_ITS | Continuity of Care Document ---
Author Organization [facility] Nando Escobar Lazaro lt Address [address] [place] [address]- Care Team Providers Care Engine Manager Name Role Phone Carrie Kelly RIVERA Primary Care Physician [facility]counter [facility] Date(s): 09/10/22 - 10/10/22 [facility] Adult [address] [place] [address]- Allergies, Adverse Reactions, Alerts Substance Reaction Severity [...] influenza virus vaccine, inactivated 04/16/10 Give n [id number] 12y+ bivalent booster vax 05/17/22 Recorded SARS-CoV-2 [...] Refills, Maintenance, 05/21/22 13:33:00 EST, [facility], 175, cm, 05/09/22 11:08:00 EDT, Height, 93, [...] Gm, 0 Refills, Maintenance, 09/05/22 9:15:00 EST, [id number], Partial fill upon patient request if the prescription is for a schedule II opioid drug., 1 sprays Nares, Both 2 times a day, 175, c... Start Date: 09/05/22 Status: Ordered folic acid 1 mg oral tablet 1, tablet, By Mouth, Daily, # 30 tablet, Refills 5, Tot. Refills 5, Maintenance, 08/15/22 10:27:00 EST, Route to Pharmacy Electronically, [facility]/pharmacy #[id number], 175, cm, 07/17/22 [...] 01/21/19 11:25:36 EDT, Route to Pharmacy Electronically, [id number], [facility]/pharmacy #[id number] Start Date: 01/21/19 Stop Date: 05/21/19 Status: Ordered lisinopril 40 mg oral tablet 1 tablet, By Mouth, Daily, # 90 tablet, 1 Refills, Maintenance, 05/07/22 14:29:00 EDT, [facility], 175, cm, 04/08/22 8:34:00 EDT, Height, 93, kg, 01/28/22 14:55:00 EDT, Dry Weight Start Date: 05/07/22 Status: Ordered Metoprolol Tartrate 50 mg oral tablet 1.5 tablet, By Mouth, 2 times a day, # 270 tablet, 1 Refills, Maintenance, 09/01/22 13:28:00 EST, [facility], 175, cm, 07/17/22 10:33:00 EST, Height, 93, kg, 01/28/22 14:55:00 EDT, Dry Weight Start Date: 09/01/22 Status: Ordered Nicotine 7 mg/24 hour patch 1 patch, Topically, Daily, # 30 patch, 1 Refills, Maintenance, 09/26/22 7:49:00 EDT, Patch, [facility]/pharmacy #[id number], Partial fill upon [...] # 15 Unknown, 2 Refills, [facility], 175.2, cm, 05/27/21 11:26:00 EST, Height, 88.3, kg, 03/12/21 9:16:00 EDT, Dry Weight Start Date: 06/04/21 Status: Ordered Pen [place], 31 G x 5 mm BD Ultra [...] tablet, 1 Refills, Maintenance, 05/21/22 13:33:00 EST, [facility], 175, cm, 05/09/22 11:08:00 EDT, Height, 93, kg, 01/28/22 14:55:00 EDT, Dry Weight Start Date: 05/21/22 Status: Ordered SEROquel 100 mg oral tablet 100 mg, 1, tablet, By Mouth, 2 times a day, PRN, # 1 tablet, Refills 2, Tot. Refills 2, Maintenance, Anxiety, 09/21/19 10:41:00 EDT, Route to Pharmacy Electronically, [facility]/pharmacy #[id number], 172, cm, 09/05/19 [...] 9 Unknown, 1 Refills, 01/21/22 15:39:00 EDT, [facility]/pharmacy #[id number], 175.2, cm, 12/18/21 14:10:00 EDT, Height... Start Date: 01/21/22 Status: Ordered Trulicity Pen 0.75 mg/0.5 mL subcutaneous solution 0.5 mL = 0.75 mg, Subcutaneous Injection, Every week, # 2.5 mL, 2 Refills, Maintenance, 04/08/22 9:12:00 EDT, Solution, [facility]/pharmacy #[id number], Partial fill upon patient request if the prescription is for a schedule II opioid drug., 175, cm, 04/08/22 8:34... Start Date: 04/08/22 Status: Ordered Ventolin HFA 108 mcg/inh inhalation aerosol with adapter 2 puffs, Inhalation, Every 4 hours, PRN for wheezing, for 180 days, # 1 each, 0 Refills, Acute 03/05/23 16:25:00 EDT, 09/06/22 16:25:00 EST, Aerosol, [facility]/pharmacy #[id number], Partial fill upon [...] 524 weeks therapy with sofosbuvir/weight based ribavirin 05529 inferolateral stent bare metal circumflex 7DR Marissa [...] Team Personnel Name: Jeffrey Mccoy MD Position: [facility] Renal MD Member Role: Lifetime Consulting Physician Address: Address: [address] [facility] [place] [address]- Name: Kelly Butler NP Position: [facility] PCO Associate Professional Member Role: PCP Address: Address: [address] [place] [address]- Name: Kristin Mckenzie Position: [facility] Outreach Member Role: Lifetime Consulting Physician Name: Prieto Tobin RN Position: [facility] RN Member Role: Primary Care Nurse Name: Jonn Hui DO Position: [facility] Renal MD Member Role: Lifetime Consulting Physician Address: Address: [address] [place], [place] [address] [place] [address]- Name: Luis Angel Stephen RN Position: [facility] RN Member Role: Primary Care Nurse Name: Tamie Baird RN Position: [facility] RN Member Role: Primary Care Nurse Care Team Related Persons Name: CARLOS A BORDEN Address: home [address] [place] [address] Name: LEVI BORDEN Address: home [address] [place] [address]
--- OUTSIDE RECORDS SUMMARY | 2024-06-01 12:07 | XMS_ITS | Continuity of Care Document ---
Author Organization [facility] Shawn Lazaro lt Address [address] [place] [address]- Care Team Providers Care Trash Collector Truck Driver Name Role Phone Carrie Kelly RIVERA Primary Care Physician Encounter [facility] Date(s): 03/16/23 - 04/15/23 [facility] [place] Adult [address] [place] [address]- Allergies, Adverse Reactions, Alerts Substance Reaction Severity [...] influenza virus vaccine, inactivated 04/16/10 Give n [id number] 12y+ bivalent booster vax 05/17/22 Recorded SARS-CoV-2 (COVID-19) mRNA-1273 vaccine 10/10/21 R ecorded SARS-CoV-2 (COVID-19) mRNA BNT-162b2 vac 04/29/21 Recorded SARS-CoV-2 (COVID-19) mRNA BNT-162b2 vac 10/10/20 Recorded SARS-CoV-2 (COVID-19) mRNA BNT-162b2 vac 09/19/20 Recorded Influenza Virus Vaccine (oldterm) 03/05/20 Recorde d zoster vaccine, inactivated 08/09/19 Recorded pneumococcal 23-valent vaccine 08/09/19 Recorded pneumococcal 23-valent vaccine 10/12/10 Given tetanus/diphtheria/pertussis, acel(Tdap) 07/28/11 Given hepatitis B [...] tablet, 1 Refills, Maintenance, 12/30/22 14:35:00 EDT, [facility]/pharmacy#[id number], 175, cm, [...] Refills, Maintenance, 01/07/23 21:36:00 EDT, [facility], 90, TAKE 1 TABLET BY MOUTH EVERY [...] capsule, 0 Refills, Maintenance, 03/31/23 14:24:00 EDT, [id number], 175, cm, 10/09/22 16:51:00 EDT, Height, 93, kg, 01/28/22 14:55:00 EDT, Dry Weight Start Date: 03/31/23 Status: Ordered docusate sodium 100 mg oral [...] 0 Refills, Maintenance, 09/05/22 9:15:00 EST, [place],[facility]/pharmacy #[id number], Partial fill upon patient request if the prescription is for a schedule II opioid drug., 1 sprays Nares, Both 2 times a day, 175, c... Start Date: 09/05/22 Status: Ordered folic acid 1 mg oral tablet 1, tablet, By Mouth, Daily, # 90 tablet, Refills 1, Tot. Refills 1, Maintenance, 01/08/23 13:00:00 EDT, [place] Pharmacy Electron[facility], [facility] [place] 01/21/19 11:25:36 EDT, Route to Pharmacy Electronically, [id number], [facility]/pharmacy #[id number] Start Date: 01/21/19 Stop Date: 05/21/19 Status: Ordered lisinopril 40 mg oral tablet 1 tablet, By Mouth, Daily, # 90 tablet, 0 Refills, Maintenance, 12/29/22 11:59:00 EDT, [facility]/pharmacy#0843, 175, cm, 10/09/22 16:51:00 EDT, Height, 93, kg, 01/28/22 14:55:00 EDT, Dry Weight Start Date: 12/29/22 Status: Ordered Metoprolol Tartrate 50 mg oral tablet 1.5 tablet, By Mouth, 2 times a day, # 270 tablet, 1 Refills, Maintenance, 02/20/23 7:15:00 EDT, [facility], 175, cm, 10/09/22 16:51:00 EDT, Height, 93, kg, 01/28/22 14:55:00 EDT, Dry Weight Start Date: 02/20/23 Status: Ordered nicotine 14 mg/24 hr transdermal film, extended release 1 patch, Topically, Daily, for 30 days, further refills will require enrollment in a cessation program, # 30 patch, 0 Refills, Acute 04/23/23 14:51:00 EDT, 03/24/23 14:51:00 EDT, Patch, [facility]/pharmacy #0843, 1 patch Topically Daily,x30 days,Instr:furthe... Start [...] Weight Start Date: 11/07/22 Status: Ordered Pen [place], 31 G x 5 mm BD Ultra [...] capsule, 2 Refills, Maintenance, 08/07/22 12:55:00EST, Capsule, [facility]/pharmacy #0843, 175, cm, 07/17/22 10:33:00 EST, Height, 93, kg, 01/28/22 14:55:00EDT, Dry Weight Start Date: 08/07/22 Status: Ordered rosuvastatin 20 mg oral tablet 1 tablet, By Mouth, Daily, # 90 tablet, 1 Refills, Maintenance, 03/29/23 14:43:00 EDT, [facility], 175, cm, 10/09/22 16:51:00 EDT, Height, 93, kg, 01/28/22 14:55:00 EDT, Dry Weight Start Date: 03/29/23 Status: Ordered Senna 8.6 mg oral tablet 1 or 2 tablets, By Mouth, Daily at bedtime, PRN, # 60 tablet, Refills 5, Tot. Refills 5, Maintenance, Constipation, 11/03/22 15:04:00 EDT, Route to Pharmacy Electronically, [facility]/pharmacy #[id number] Tablet,Partial fill upon patient request [...] 1 Refills, Maintenance, 01/13/23 9:59:00 EDT, Solution, [facility]/pharmacy #0843, 175, cm, 10/09/22 16:51:00 EDT, Height, 93, kg, 01/28/22 14:55:00 EDT, Dry Weight Start Date: 01/13/23 Status: Ordered Vitamin D3 2000 intl units oral capsule 1 capsule, By Mouth, Daily, # 90 capsule, 1 Refills, Maintenance, 11/14/22 12:24:00 EDT, [facility]/pharmacy #0843, 175, [...] 4, GFR 15-29 ml/min Confirmed Active ASHD; [place] 2012/stent circumflex vessel cath;abdelrahman 2018 3 Confirmed [...] 524 weeks therapy with sofosbuvir/weight based ribavirin 46744 inferolateral stent bare metal circumflex 7DR Marissa [...] Team Personnel Name: Jeffrey Mccoy MD Position: [facility] Renal MD Member Role: Lifetime Consulting Physician Address: Address: [address] [place] [address] [facility] [place] [address]- Name: Kelly Butler NP Position: [facility] PCO Associate Professional Member Role: PCP Address: Address: [address] [place] [address]- Name: Kristin Mckenzie Position: [facility] Outreach Member Role: Lifetime Consulting Physician Name: Prieto Tobin RN Position: [facility] RN Member Role: Primary Care Nurse Name: Jonn Hui DO Position: [facility] Renal MD Member Role: Lifetime Consulting Physician Address: Address: [address] [place], [place] [address] [place], [place] [address] Name: Luis Angel Stephen RN Position: [facility] RN Member Role: Primary Care Nurse Care Team Related Persons Name: CARLOS A BORDEN Address: [address] [place] [address] Name: LEVI BORDEN Address: [address] [place] [address]
--- OUTSIDE RECORDS SUMMARY | 2024-06-01 12:07 | XMS_ITS | Continuity of Care Document ---
Author Organization [facility] Address [address] [place] [address]- Care Team Providers Care Certified Nuclear Medicine Technologist Name Role Phone Kelly Butler NP Primary Care Physician [place] [facility] [place]23 [place] 09/30/23 [facility] [address] [place] [address]- Encounter Diagnosis COVID-19(Discharge Diagnosis) - 09/23/23 CKD (chronic kidney disease) stage 4, GFR 15-29 ml/min(Discharge Diagnosis) - 09/23/23 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) - 09/23/23 Attending Physician: Not on Staff, Attending MD Referring Physician: Kelly Butler NP Allergies, Adverse Reactions, Alerts Substance Reaction Severity Status Bee Stings Active Immunizations Given and Recorded Vaccine Date Status Refusal Reason SARS-CoV-2(COVID-19)mRNA-LNP vac(mlw365) 05/08/23 Recorded pneumococcal 20-valent conjugate vaccine 1 [...] 02/03/23 Recorded zoster vaccine, inactivated 08/09/19 Recorded [id number] 12y+ bivalent booster vax 05/17/22 Recorded SARS-CoV-2 [...] adult vaccine 4 12/10/10 Given 1Result Comment: [id number] 2Result Comment: [id number] 3Admin Note: pt waited 10 mins post inj no adverse reaction noted.j a 4Admin Note: PT WAITED 10 MIN WITH NO ADVERSE REACTION. MH Medications aspirin 81 mg oral delayed release tablet 1 tablet, By Mouth, Daily, # 90 tablet, 1 Refills, Maintenance, 06/02/23 11:42:00 EST, [facility]/pharmacy#[id number], 168, cm, 05/01/23 14:45:00 EDT, Height, [...] Refills, Maintenance, 06/30/23 7:20:00 EST, [facility], 168, cm, 05/01/23 14:45:00 EDT, Height, 93, kg, 01/28/22 14:55:00 EDT, Dry Weight Start Date: 06/30/23 Status: Ordered Daily Simone oral tablet 1 tablet, By Mouth, Daily, # 90 tablet, 1 Refills, Maintenance, 06/30/23 7:20:00 EST, [facility], 90, TAKE 1 TABLET BY MOUTH EVERY [...] Refills, Maintenance, 06/26/23 6:50:00 EST, [facility], 168, cm, 05/01/23 14:45:00 EDT, Height, 93, kg, 01/28/22 14:55:00 EDT, Dry Weight Start Date: 06/26/23 Status: Ordered folic acid 1 mg oral tablet 1, tablet, By Mouth, Daily, # 90 tablet, Refills 1, Tot. Refills 1, Maintenance, 07/03/23 10:01:00 EST, Route to Pharmacy Electronically, [facility]/pharmacy #[id number], 168, cm, 05/01/23 14:45:00 [...] 01/21/19 11:25:36 EDT, Route to Pharmacy Electronically, [id number], [facility]/pharmacy #[id number] Start [...] tablet, 1 Refills, Maintenance, 08/17/23 13:33:00 EST, [facility]/pharmacy#[id number], 168, cm, 07/23/23 15:05:00 EST, Height, 93, kg, 01/28/22 14:55:00 EDT, Dry Weight Start Date: 08/17/23 Status: Ordered Metoprolol Tartrate 50 mg oral tablet 1.5 tablet, By Mouth, 2 times a day, # 270 tablet, 1 Refills, Maintenance, 09/16/23 14:32:00 EDT, [facility]/pharmacy #[id number], 168, cm, 07/23/23 15:05:00 EST, Height, 93, kg, 01/28/22 14:55:00 EDT, Dry Weight Start Date: 09/16/23 Status: Ordered Nicotine 7 mg/24 hour patch 1 patch, Topically, Daily, for 14 days, # 14 patch, 1 Refills, Acute 10/14/23 17:11:00 EDT, 09/16/23 17:11:00 EDT, Patch, [facility]/pharmacy #[id number], Partial fill upon patient [...] Maintenance, 10/03/22 15:53:00 EDT, [facility]/pharmacy #[id number], 175, cm, 09/17/22 13:59:00 EDT, Height,... Start Date: 10/03/22 Status: Ordered NovoLOG FlexPen 100 units/mL injectable solution See Instructions, INJECT 0-18 UNITS SUBCUTANEOUSLY WITH MEALS FOR SLIDING SCALES, # 15 Unknown, 2 Refills, 11/07/22 0:09:00 EDT, [facility]/pharmacy #[id number], 175, cm, 10/09/22 16:51:00 EDT, Height, 93, kg, 01/28/22 14:55:00 EDT, Dry Weight Start Date: 11/07/22 Status: Ordered Pen [place], 31 G x 5 mm BD Ultra [...] Refills, Maintenance, 03/29/23 14:43:00 EDT, [facility], 175, cm, 10/09/22 16:51:00 EDT, Height, 93, [...] mild to moderate. 3MI 2012 circumflex stent 2012/[place] 4secondary to hep C 524 weeks therapy with sofosbuvir/weight based ribavirin 25730 inferolateral stent bare metal circumflex 7DR Marissa morgan;Dr Schwartz 8hyperplatic polyp repeat screening in 2025 9repeat colonoscopy in 5 years Diagnosis Diagnosis Type Effective Dates Health Status Clinical Service Informant COVID-19 Discharge Diagnosis 09/23/23 CKD (chronic kidney disease) stage 4, GFR 15-29 ml/min Discharge Diagnosis 09/23/23 Type 2 diabetes mellitus with diabetic nephropathy Discharge Diagnosis 09/23/23 Social History Social History Type Response Smoking Status Former smoker, quit more than 30 days ago; Interested in cessation: No; Other: quit; Tobacco use times per day: prio 1/2-1 ppd; Total pack years: 38; Started at age: 12; Stopped at age: 63; entered on: 07/20/20 Sex Patient Care team information Care Team Personnel Name: Jeffrey Mccoy MD Position: [facility] Renal MD Member Role: Lifetime Consulting Physician Address: Address: [address] [place] [address] [address] [facility] [place], [place] [address] Name: Kelly Butler NP Position: [facility] PCO Associate Professional Member Role: PCP Address: Address: [address] [place] [id number] Name: Kristin Mckenzie Position: [facility] Outreach Member Role: Lifetime Consulting Physician Name: Prieto Tobin RN Position: [facility] RN Member Role: Primary Care Nurse Name: Jonn Hui DO Position: [facility] Renal MD Member Role: Lifetime Consulting Physician Address: Address: [address] [place] [address] [address] [facility] [place], [place] [address] Name: Zafar CALVO, Luis Angel Rojas Position: [facility] RN Member Role: Primary Care Nurse Care Team Related Persons Name: CARLOS A BORDEN Address: home [address] [place] [address] Name: LEVI BORDEN Address: home [address] [place] [address]
--- OUTSIDE RECORDS SUMMARY | 2024-06-01 12:07 | XMS_ITS | Continuity of Care Document ---
Author Organization [facility] Address [address] [place] [address]- Care Team Providers Care Sheet Metal Supervisor Name Role Phone Aylin HICKMAN, Ben Willis Primary Care Physician Encounter [facility] [place] Date(s): 08/01/21 - 08/31/21 [facility] [address] [place] [address]- Attending Physician: Radha Biggs Admitting Physician: AdmtrRadha Referring Physician: Admtr, Radha Allergies, Adverse Reactions, Alerts Substance Reaction Severity [...] 5 Refills, Maintenance, 07/25/21 10:21:00 EST, [facility]/pharmacy#0843, 175.2, cm, 06/07/21 9:51:00 EST, Height, 88.3, [...] 11:08:00 EDT, CR Capsule, [facility]/pharmacy #[id number], 175.3, cm, 01/21/21 12:58:00 EDT, Height, 83.6, kg, 04/23/20 17:46:00EDT, Dry Weight Start Date: 01/23/21 Stop Date: 01/18/22 Status: Ordered cholecalciferol 2000 intl units oral capsule 1 capsule = 2,000 International_Units, By Mouth, Daily, # 30 capsule, 5 Refills, Maintenance, 05/15/21 13:02:00 EST, Capsule, [facility]/pharmacy #0843, 175.2, cm, 03/18/21 10:48:00 EDT, Height, 88.3, kg, 03/12/21 9:16:00 EDT, Dry Weight Start Date: 05/15/21 Status: Ordered cloNIDine 0.2 mg oral tablet 0.2 mg, 1, tablet, By Mouth, 2 times a day, # 60 tablet, Refills 5, Tot. Refills 5, Maintenance, 06/24/21 12:51:00 EST, Route to Pharmacy Electronically, [facility]/pharmacy #[id number], 175.2, cm, 06/07/21 9:51:00 EST, Height, 88.3, kg, 03/12/21 9:16:00 EDT, Dry... Start Date: 06/24/21 Status: Ordered Daily Simone oral tablet 1 tablet, By Mouth, Daily, # 30 tablet, 5 Refills, Maintenance, 07/29/21 13:53:00 EST, Tablet, [facility]/pharmacy #[id number], 1 tablet By Mouth Daily,x30 days, 175.2, cm, 06/07/21 9:51:00 EST, Height, 88.3, kg,03/12/21 9:16:00 EDT, Dry Weight Start Date: 07/29/21 Stop Date: 01/25/22 Status: Ordered docusate sodium 100 mg oral capsule 1 capsule, By Mouth, 2 times a day, PRN NEEDED FOR CONSTIPATION, # 60 capsule, 5 Refills, Maintenance, 06/05/21 15:57:00 EST, [facility]/pharmacy #0843, 175.2, cm, 05/27/21 11:26:00 EST, Height, 88.3, kg, 03/12/21 9:16:00 EDT, Dry Weight Start Date: 06/05/21 Status: Ordered folic acid 1 mg oral tablet 1, tablet, By Mouth, Daily, # 30 tablet, Refills 5, Tot. Refills 5, Maintenance, 07/25/21 15:59:00 EST, Route to Pharmacy Electronically, [facility]/pharmacy #[id number], 175.2, cm, 06/07/21 9:51:00 EST, Height, [...] Maintenance, 06/05/21 15:57:00 EST, [facility]/pharmacy #[id number], 175.2, cm, 05/27/21 11:26:00 EST, Height, 88.3, kg, 03/12/21 9:16:00 EDT, Dry Weight Start Date: 06/05/21 Status: Ordered LaMICtal 100 mg oral tablet 100 mg, 1, tablet, By Mouth, 2 times a day, # 60 tablet, Refills 3, Tot. Refills 3, Maintenance, 01/21/19 11:25:36 EDT, Route to Pharmacy Electronically, [id number], [facility]/pharmacy #[id number] Start Date: 01/21/19 Stop Date: 05/21/19 [...] Refills, Maintenance, 06/24/21 16:13:00 EST, Tablet, [facility]/pharmacy #[id number], Partial fill upon patient request if the prescription is for a schedule II opioid drug., 175.2, cm, 06/07/21 9:51:00 EST, Height... Start Date: 06/24/21 Status: Ordered Metoprolol Tartrate 50 mg oral tablet See Instructions, TAKE 1 + 1/2 TABLETS BY MOUTH 2 TIMES A DAY, # 270 tablet, 0 Refills, 06/24/21 10:42:00 EST, [facility]/pharmacy #[id number], 175.2, cm, 06/07/21 9:51:00 EST, Height, 88.3, kg, 03/12/21 9:16:00 EDT, Dry Weight Start Date: 06/24/21 Status: Ordered nicotine 2 mg oral transmucosal lozenge See Instructions, USE 1 LOZENGE UP TO EVERY 1 HOUR NEEDED FOR 10 DAYS, # 162 lozenge, 0 Refills,[facility], 16, USE 1 LOZENGE UP TO EVERY [...] SLIDING SCALES, # 15 Unknown, 2 Refills, [facility], 175.2, cm, 05/27/21 11:26:00 EST, Height, 88.3, kg, 03/12/21 9:16:00 EDT, Dry Weight Start Date: 06/04/21 Status: Ordered Pen [place], 31 G x 5 mm BD Ultra [...] Refills, Maintenance, 06/10/21 12:32:00 EST, Capsule, [facility]/pharmacy #[id number], 175.2, cm, 06/07/21 9:51:00 EST, Height, 88.3, kg, 03/12/21 9:16:00 EDT, Dry Weight Start Date: 06/10/21 Status: Ordered pregabalin 75 mg oral capsule 1 capsule = 75 mg, By Mouth, 2 times a day, # 60 capsule, 5 Refills, Maintenance, 06/07/21 13:14:00EST, Capsule, [facility]/pharmacy #[id number], 175.2, cm, 06/07/21 9:51:00 EST, Height, 88.3, kg, 03/12/21 9:16:00 EDT, Dry Weight Start Date: 06/07/21 Status: Ordered rosuvastatin 20 mg oral tablet 1 tablet, By Mouth, Daily, # 90 tablet, 1 Refills, Maintenance, 08/15/21 14:24:00 EST, [facility]/pharmacy#0843, 175.2, cm, 07/31/21 11:20:00 EST, Height, 88.3, kg, 03/12/21 9:16:00 EDT, Dry Weight Start Date: 08/15/21 Status: Ordered SEROquel 100 mg oral tablet 100 mg, 1, tablet, By Mouth, 2 times a day, # 60 tablet, Refills 2, Tot. Refills 2, Maintenance, 09/21/19 10:41:00 EDT, Route to Pharmacy Electronically, [facility]/pharmacy #[id number], 172, cm, 09/05/19 16:17:00 EST, Height, [...] # 9 Unknown, 1 Refills, [facility], 175.2, cm, 07/31/21 11:20:00 EST, Height, 88.3, [...] 524 weeks therapy with sofosbuvir/weight based ribavirin 67804 inferolateral stent bare metal circumflex 7DR Molddoverno [...]
--- OUTSIDE RECORDS SUMMARY | 2024-06-01 12:07 | XMS_ITS | Continuity of Care Document ---
Author Organization [facility] Shawn Lazaro lt Address [address] [place] [address]- Care Team Providers Care Cafeteria Food Server Name Role Phone Ben Viera MD Primary Care Physician [phone] Encounter [facility] [place] Date(s): 08/16/19 - 08/23/[address] [facility] [address] [place] [address]- [place] Encounter Diagnosis Nocturnal confusion(Discharge Diagnosis) - 08/16/19 Attending Physician: Ben Viera MD Allergies, Adverse [...] 10:48:07 EST, Aerosol, Route to Pharmacy Electronically, [id number], [facility]/pharmacy #[id number], 180, cm, 06/17/19 10:36:11 EST, Height Start Date: 06/17/19 Status: Ordered aspirin 81 mg oral tablet 1 tablet = 81 mg, By Mouth, Daily, # 30 tablet, 11 Refills, Maintenance, 09/03/19 14:22:00 EST, Tablet, [id number] 180, cm, 08/01/19 10:43:00 EST, Height Start Date: 09/03/19 Stop Date: 08/28/20 Status: Ordered aspirin 81 mg oral tablet 1 tablet = 81 mg, By Mouth, Daily, for 30 days, # 30 tablet, 11 Refills, Hard Stop 09/03/19 14:22:51 EST, 09/08/18 14:22:51 EST, Tablet, [id number] Start Date: 09/08/18 Stop Date: 09/03/19 [...] Refills, Maintenance, 08/16/19 14:00:00 EST, CR Capsule, [facility]/pharmacy #[id number], 172, cm, 08/11/19 13:32:00 EST, [...] 05/09/19 9:31:26 EST, Route to Pharmacy Electronically, [id number], [facility]/pharmacy #[id number] Start Date: 05/09/19 Status: Ordered Colace sodium 100 mg oral capsule 100 mg, 1, capsule, By Mouth, 2 times a day, PRN, # 60 capsule, Refills 5, Tot. Refills 5, Maintenance, for constipation, 04/25/19 13:50:52 EDT, Route to Pharmacy Electronically, [id number], [facility]/pharmacy #[id number] Start Date: 04/25/19 Status: Ordered [...] 02/14/19 16:39:14 EDT, Route to Pharmacy Electronically, [id number], [facility]/pharmacy #[id number] Start Date: 02/14/19 Status: Ordered [...] 01/21/19 11:25:36 EDT, Route to Pharmacy Electronically, [id number], [facility]/pharmacy #[id number] Start Date: 01/21/19 [...] 06/21/19 14:10:15 EST, Route to Pharmacy Electronically, [facility]/pharmacy #[id number], 180, cm, 06/17/19 10:36:11 EST, Height Start Date: 06/21/19 Status: Ordered metoprolol 50 mg oral tablet 75 mg, 1.5, tablet, By Mouth, 2 times a day, stop metoprolol 50 mg twice daily, # 180 tablet, Refills 2, Tot. Refills 2, Maintenance, 02/28/19 16:02:16 EDT, Route to Pharmacy Electronically, [id number], [facility]/pharmacy #[id number] Start Date: 02/28/19 Status: Ordered nicotine 2 mg oral transmucosal lozenge 1 lozenge = 2 mg, By Mouth, Every 2 hours, SUCK UP TO Q1 HOURS 10 DAILY, # 144 lozenge, 2 Refills, Maintenance, 07/15/19 12:34:00 EST, [facility]/pharmacy #0843, 1 lozenge By Mouth Every [...] PAIN CALL 911 IF PAIN NOT RELIEVED, [facility]/pharmacy #[id number] Start Date: 02/17/19 Status: Ordered NovoLOG FlexPen 100 units/mL subcutaneous solution See Instructions, # 15 Unknown, Refills 5 Tot. Refills 5, INJECT 0-18 UNITS SUBCUTANEOUSLY WITH MEALS FOR SLIDING SCALES, [facility]/pharmacy #[id number] Start Date: 01/04/19 Status: Ordered Pen [place], 31 G x 5 mm BD Ultra [...] 01/21/19 11:26:23 EDT, Route to Pharmacy Electronically, [id number], [facility]/pharmacy #[id number] Start Date: 01/21/19 Status: Ordered [...] EST, Tablet, this was previously sent to [facility] pharmacy Start Date: 05/17/19 Stop Date: 05/11/20 Status: Ordered Tresiba FlexTouch 200 units/mL subcutaneous solution = 90 units, Subcutaneous Infusion, Daily, at bedtime, # 15 mL, 5 Refills, Maintenance, 08/04/19 13:13:00 EST, [facility]/pharmacy #[id number], 180, cm, 08/01/19 10:43:00 EST, [...] renal insufficiency, stage III (moderate)(Confirmed) Active ASHD; [place] 2012/stent circumfl ex vessel cath;abdelrahman 2018(Confirmed) 3 [...] mild to moderate. 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 524 weeks therapy with sofosbuvir/weight based ribavirin 96788 inferolateral stent bare metal circumflex 7DR Marissa morgan;Dr Schwartz 8repeat colonoscopy in 5 years Diagnosis Diagnosis Type Effective Dates Health Status Cl inical Service Informant Nocturnal confusion Discharge Diagnosis 08/16/19 Procedures Procedure Date Related Diagnosis Body Site Status Pelvis X-ray hips nil acute 08/10/19 Completed Vital Signs Most recent to oldest [Reference Range]: 1 2 Height 172 cm (08/16/19 2:40 PM) 172 cm (08/16/19 2:14 PM) Weight 100.8 kg (08/16/19 2:14 PM) Oxygen Saturation [94-100 %] 98 % (08/16/19 2:14 PM) Pulse Rate [55-90 bpm] 70 bpm (08/16/19 2:14 PM) Body Mass Index [18.5-24.99] 34.07 *>HHI* (08/16/19 2:14 PM) Blood Pressure [90-138/55-84 mm Hg] 124/ 60mm Hg (08/16/19 2:14 PM) Respiratory Rate [16-30 br/min] 18 br/mi n (08/16/19 2:14 PM) Temperature [96.8-100.4 DegF] 97.9 DegF (08/16/19 2:14 PM) Blood pressure sites Arm, left (08/16/19 2:14 PM) Temperature Route Oral (08/16/19 2:14 PM) Social History Social History Type Response Smoking Status Former smoker, quit more than 30 days ago entered on: 12/22/18 Sex
--- OUTSIDE RECORDS SUMMARY | 2024-06-01 12:07 | XMS_ITS | Continuity of Care Document ---
Author Organization [facility] Shawn Lazaro lt Address [address] [place] [address]- Care Team Providers Care Chorus Dancer Name Role Phone Carrie Kelly RIVERA Primary Care Physician Encounter [facility] [place] Date(s): 02/03/24 - 03/04/24 [facility] [address] [place] [address]- Allergies, Adverse Reactions, Alerts Substance Reaction Severity Status Bee Stings Active Immunizations Given and Recorded Vaccine Date Status Refusal Reason SARS-CoV-2(COVID-19)mRNA-LNP vac(tfc752) 12/31/23 Recorded SARS-CoV-2(COVID-19)mRNA-LNP vac([id number]) 05/08/23 Recorded tetanus/diphtheria/pertussis, acel(Tdap) 10/15/23 Recorded tetanus/diphtheria/pertussis, [...] 02/03/23 Recorded zoster vaccine, inactivated 08/09/19 Recorded [id number] 12y+ bivalent booster vax 05/17/22 Recorded SARS-CoV-2 [...] adult vaccine 4 12/10/10 Given 1Result Comment: [id number] 2Result Comment: [id number] 3Admin Note: pt waited 10 mins post [...] day prn cough (Max 600 mg in d78-mnmo period), # 30 capsule, 0 Refills, Maintenance, [...] EDT, Route to Pharmacy Electronically, [facility]/pharmacy #[id number], Partial fill upon patient request if the prescriptio... Start Date: 02/29/24 Stop Date: 03/14/24 Status: Ordered D3 50 mcg (2000 intl units) oral capsule 1 capsule, By Mouth, Daily, # 90 capsule, 0 Refills, Maintenance, 12/09/23 14:09:00 EDT, [facility]/pharmacy #[id number], 168, cm, 10/27/23 15:34:00 EDT, Height, 93, kg, 01/28/22 14:55:00 EDT, Dry Weight Start Date: 12/09/23 Status: Ordered Daily Simone oral tablet 1 tablet, By Mouth, Daily, # 90 tablet, 1 Refills, Maintenance, 01/25/24 16:01:00 EDT, [facility]/pharmacy#0843, 90, 1 tablet By Mouth Daily, 168, cm, 01/11/24 14:42:00 EDT, Height, 93, kg, 01/28/22 14:55:00 EDT, Dry Weight Start Date: 01/25/24 Status: Ordered dapagliflozin 10 mg oral tablet 1 tablet = 10 mg, By Mouth, Daily, # 30 tablet, 0 Refills, Maintenance, 01/11/24 14:46:00 EDT, Tablet, [facility]/pharmacy #0843, Partial fill upon patient request if [...] EDT, Route to Pharmacy Electronically, [facility]/pharmacy #[id number], 168, cm, 02/15/24 13:43:00 EDT, Height [...] 01/21/19 11:25:36 EDT, Route to Pharmacy Electronically, [id number], [facility]/pharmacy #[id number] Start Date: 01/21/19 [...] 2 Refills, 01/12/24 14:36:00 EDT, [facility]/pharmacy #[id number], MAX DAILY DOSE 54 UNITS, 168, [...] mL, 0 Refills, Maintenance, 02/02/24 15:28:00 EDT, [place], [facility]/pharmacy #0843, Partial fill upon patient... Start Date: 02/02/24 Status: Ordered Pen [place], 31 G x 5 mm BD Ultra [...] Refills, Maintenance, 02/04/24 16:39:00 EDT, [facility], 168, cm, 02/03/24 10:41:00 EDT, Height Start Date: 02/04/24 Status: Ordered senna - oral tablet 2 tablet, By Mouth, Daily at bedtime, PRN for constipation, for 14 days, # 28 tablet, 0 Refills, Acute 03/14/24 11:19:00 EDT, 02/29/24 11:19:00 EDT, Tablet, [facility]/pharmacy #[id number], Partial fill upon patient request if [...] ml/min Confirmed Active ASHD; [place] 2012/stent circumflex 2012/vessel cath;abdelrahman 2018 3 Confirmed [...] mild to moderate. 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 524 weeks therapy with sofosbuvir/weight based ribavirin 31007 inferolateral stent bare metal circumflex 7DR Molddoida [...] Mccoy MD Position: [facility] Renal MD Member Role: Lifetime Consulting Physician Address: Address: [address] [place] [address] [address] [facility] [place], [place] [facility] Name: Kelly Butler NP Position: [facility] PCO Associate Professional Member Role: PCP Address: Address: [address] [place] [id number]- Name: Kristin Mckenzie Position: [facility] Outreach Member Role: Lifetime Consulting Physician Name: Fortunato Sin RN Position: [facility] RN Member Role: Primary Care Nurse Name: Nury Watts RN Position: [facility] RN Member Role: Primary Care Nurse Name: Antonia Mena NP Position: [facility] Associate Professional Member Role: Lifetime Consulting Provider Address: Address: [address] [place], [place] [address] [place], [place] - Name: Prieto Tobin RN Position: [facility] RN Member Role: Primary Care Nurse Name: Ashleigh Reynoso RN Position: [facility] RN Member Role: Primary Care Nurse Name: Jonn Hui DO Position: [facility] Renal MD Member Role: Lifetime Consulting Physician Address: Address: [address] [place] [address] [address] [facility] [place], [place] - Name: Luis Angel Stephen RN Position: [facility] RN Member Role: Primary Care Nurse Name: Brandan Nogueira RN Position: S RN Member Role: Primary Care Nurse Care Team Related Persons Name: CARLOS A BORDEN Address: [address] [place] [address] [facility] Name: LEVI BORDEN Address: [address] [place] [address]
--- OUTSIDE RECORDS SUMMARY | 2024-06-01 12:07 | XMS_ITS | Continuity of Care Document ---
Author Organization [facility] Shawn Lazaro lt Address [address] [place] [address]- Care Team Providers Care Machining Manager Name Role Phone Aylin HICKMAN, Ben Willis Primary Care Physician [phone] Encounter [facility] Date(s): 12/12/20 - 01/11/21 [facility] Nando Escobar Adult [address] [place] [address]- Allergies, Adverse Reactions, Alerts Substance Reaction Severity [...] 10:48:07 EST, Aerosol, Route to Pharmacy Electronically, [id number], [facility]/pharmacy #[id number], 180, cm, 06/17/19 10:36:11 EST, Height Start Date: 06/17/19 Status: Ordered aspirin 81 mg oral delayed release tablet 1 tablet, By Mouth, Daily, # 30 tablet, 11 Refills, Maintenance, 06/26/20 12:19:00 EST, [id number], 175, cm, 06/25/20 16:11:00 EST, Height, 83.6, [...] Refills, Maintenance, 01/02/20 15:47:00 EDT, CR Capsule, [facility]/pharmacy #[id number], 172, cm, 12/14/19 8:02:00 EDT, Height, 97.8, kg, 08/11/19 5:24:00 EST, Dry Weight Start Date: 01/02/20 Stop Date: 12/27/20 Status: Ordered cholecalciferol 2000 intl units oral capsule 1 capsule = 2,000 International_Units, By Mouth, Daily, # 30 capsule, 5 Refills, Maintenance, 11/02/20 10:48:00 EDT, Capsule, [facility]/pharmacy #[id number], 175, cm, 09/21/20 11:29:00 EDT, Height, 83.6, kg, 04/23/20 17:46:00 EDT, Dry Weight Start Date: 11/02/20 Status: Ordered cloNIDine 0.2 mg oral tablet 0.2 mg, 1, tablet, By Mouth, 2 times a day, # 60 tablet, Refills 5, Tot. Refills 5, Maintenance, 09/09/20 19:43:00 EST, Route to Pharmacy Electronically, [facility]/pharmacy #[id number], 175, cm, 07/20/20 10:29:00 EST, Height, 83.6, kg, 04/23/20 17:46:00 EDT, Dry... Start Date: 09/09/20 Status: Ordered Colace sodium 100 mg oral capsule 100 mg, 1, capsule, By Mouth, 2 times a day, PRN, # 60 capsule, Refills 5, Tot. Refills 5, Maintenance, for constipation, 02/27/20 15:25:00 EDT, Route to Pharmacy Electronically, [facility]/pharmacy #[id number], 172, cm, 12/14/19 8:02:00 EDT, Height, 97.8, kg, 02/... Start Date: 02/27/20 Status: Ordered Daily Simone oral tablet 1 tablet, By Mouth, Daily, # 90 tablet, 3 Refills, Maintenance, 09/21/20 11:35:00 EDT, Tablet, [facility]/pharmacy #[id number], Partial fill upon patient request if the prescription is for a schedule II opioid drug., 1 tablet By Mouth Daily, 175, cm, 09/21/20 11:2... Start Date: 09/21/20 Status: Ordered Daily Simone oral tablet 1 tablet, By Mouth, Daily, # 30 tablet, 5 Refills, Maintenance, 09/19/20 8:25:00 EDT, Tablet, [facility]/pharmacy #[id number], 1 tablet By Mouth Daily,x30 days, 175, cm, 07/20/20 10:29:00 EST, Height, 83.6, kg, 04/23/20 17:46:00 EDT, Dry Weight Start Date: 09/19/20 Stop Date: 03/18/21 Status: Ordered folic acid 1 mg oral tablet 1 mg, 1, tablet, By Mouth, Daily, # 30 tablet, Refills 5, Tot. Refills 5, Maintenance, 07/04/20 13:24:00 EST, Route to Pharmacy Electronically, [facility]/pharmacy #[id number], 175, cm, 06/25/20 16:11:00 EST, Height, [...] tablet, 5 Refills, Maintenance, 02/27/20 15:23:00 EDT, [facility]/pharmacy #[id number], 172, cm, 12/14/19 8:02:00 EDT, Height, 97.8, kg, 08/11/19 5:24:00 EST, Dry Weight Start Date: 02/27/20 Status: Ordered Golytely - oral powder for reconstitution 240 mL, By Mouth, Daily, bowel instruction, # 4,000 mL, 0 Refills, Maintenance, 06/21/20 16:44:00 EST, REC Powder, [facility]/pharmacy #[id number], Partial fill upon patient request if the prescription is for a schedule II opioid drug., 240 mL By Mouth Daily,Instr... Start Date: 06/21/20 Status: Ordered LaMICtal 100 mg oral tablet 100 mg, 1, tablet, By Mouth, 2 times a day, # 60 tablet, Refills 3, Tot. Refills 3, Maintenance, 01/21/19 11:25:36 EDT, Route to Pharmacy Electronically, [id number], [facility]/pharmacy #[id number] Start Date: 01/21/19 Stop [...] tablet, 0 Refills, Maintenance, 11/16/20 11:46:00 EDT, [id number], 175, cm, 09/21/20 11:29:00 EDT, Height, 83.6, kg, 04/23/20 17:46:00 EDT, Dry Weight Start Date: 11/16/20 Status: Ordered nicotine 2 mg oral transmucosal lozenge See Instructions, suck, up to q1 hrs 10 daily, # 162 lozenge, 1 Refills, Maintenance, 12/12/20 14:39:00 EDT, [facility]/pharmacy #[id number], suck, up to q1 hrs 10 daily, 175, cm, 09/21/20 11:29:00 EDT, Height, 83.6, kg, 04/23/20 17:46:00 EDT, Dry Weight Start Date: 12/12/20 Status: Ordered nicotine 4 mg oral transmucosal lozenge 1 lozenge = 4 mg, By Mouth, Every hour, dispense 2 boxes of 81 count as directed on package labeling, # 162 lozenge, 3 Refills, Maintenance, 09/25/20 14:39:00 EDT, [facility]/pharmacy #[id number], 1 lozenge By Mouth Every hour,Instr:dispense [...] 2 Refills, Soft Stop, 06/01/20 13:51:00 EST, [facility]/pharmacy #[id number], 175, cm, 05/24/20 12:46:00 EST, Height, [...] 9:13:... Start Date: 02/01/20 Status: Ordered Pen [place], 31 G x 5 mm BD Ultra [...] tablet, 1 Refills, Maintenance, 01/08/21 14:43:00 EDT, [facility]/pharmacy#0843, 175, cm, 12/24/20 11:20:00 EDT, Height, 83.6, [...] EST, Tablet, this was previously sent to [facility] pharmacy Start Date: 05/17/19 Stop Date: 05/11/20 Status: Ordered Tresiba FlexTouch 200 units/mL subcutaneous solution = 12 units, Subcutaneous Infusion, Daily, at bedtime, increase 2 units every 3 days until FBS < 120 per PCP max dose 60 units qday, # 3 each, 1 Refills, Maintenance, 12/10/20 11:14:00 EDT, [facility]/pharmacy #[id number], 175, cm, 09/21/20 11:29:00 EDT, Height, 83... Start Date: 12/10/20 Status: Ordered Trulicity Pen 0.75 mg/0.5 mL subcutaneous solution 0.5 mL = 0.75 mg, Subcutaneous Injection, Every week, # 2.5 mL, 11 Refills, Maintenance, 12/24/20 11:37:00 EDT, Solution, [facility]/pharmacy #[id number], Partial fill upon patient [...] mild to moderate. 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
--- OUTSIDE RECORDS SUMMARY | 2024-06-01 12:07 | XMS_ITS | Continuity of Care Document ---
Author Organization [facility] Shawn Lazaro lt Address [address] [place] [address]- Care Team Providers Care Aoc Director Intelligence Officer Name Role Phone Kelly Butler NP Primary Care Physician [place] [facility] [place] 03[place]24 [facility] Adult [address] [place] [address]- Encounter Diagnosis Bradycardia(Discharge Diagnosis) - 03/16/24 Hyperkalemia(Discharge Diagnosis) - 03/17/24 CKD (chronic kidney disease) stage 4, GFR 15-29 ml/min(Discharge Diagnosis) - 03/16/24 ASHD; [place] 2012/stent circumflex vessel cath;abdelrahman 2019(Discharge Diagnosis) - 03/17/24 Persistent proteinuria- SEEING NEPHROLOGY(Discharge Diagnosis) - 03/17/24 Hypertension(Discharge Diagnosis) - 03/16/24 Obese class I(Discharge Diagnosis) - 03/16/24 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) - 03/16/24 Bipolar disorder(Discharge Diagnosis) - 03/17/24 Attending Physician: Not on Staff, Attending MD Referring Physician: Kelly Butler NP Allergies, Adverse Reactions, Alerts Substance Reaction Severity Status Bee Stings Active Immunizations Given and Recorded Vaccine Date Status Refusal Reason SARS-CoV-2(COVID-19)mRNA-LNP vac(pfg241) 12/31/23 Recorded SARS-CoV-2(COVID-19)mRNA-LNP vac(aim996) 05/08/23 Recorded tetanus/diphtheria/pertussis, acel(Tdap) 10/15/23 Recorded tetanus/diphtheria/pertussis, acel(Tdap) 07/28/11 Given pneumococcal 20-valent conjugate vaccine 1 05/01/23 Given influenza virus vaccine, inactivated 2 10/27/23 Gi aracely influenza virus vaccine, inactivated 05/17/22 [...] 02/03/23 Recorded zoster vaccine, inactivated 08/09/19 Recorded [id number] 12y+ bivalent booster vax 05/17/22 Recorded SARS-CoV-2 [...] adult vaccine 4 12/10/10 Given 1Result Comment: [id number] 2Result Comment: [id number] 3Admin Note: pt waited 10 mins post inj no adverse reaction noted.j a 4Admin Note: PT WAITED 10 MIN WITH NO ADVERSE REACTION. Medications albuterol 90 mcg/inh inhalation powder 1 puffs, Inhalation, Every 6 hours, PRN Wheezing/Shortness of Breath, # 1 each, 0 Refills, Maintenance, 02/15/24 13:38:00 EDT, Powder, [facility]/pharmacy #[id number], Partial fill upon patient request if the prescription is for a schedule II opioid drug., 1 puffs... Start Date: 02/15/24 Status: Ordered amLODIPine 10 mg oral tablet 10 mg, By Mouth, Daily, # 30 tablet, Refills 5, Tot. Refills 5, Maintenance, 03/11/24 11:59:00 EDT,Route to Pharmacy Electronically, [facility]/pharmacy #[id number], Partial fill [...] Pharmacy Electronically, [facility]/pharmacy #[id number], Partial fill upon patient request if the prescriptio... Start Date: 02/29/24 Stop Date: 03/14/24 Status: Ordered D3 50 mcg (2000 intl units) oral capsule 1 capsule, By Mouth, Daily, # 90 capsule, 0 Refills, Maintenance, 12/09/23 14:09:00 EDT, [facility]/pharmacy #[id number], 168, cm, 10/27/23 15:34:00 [...] Maintenance, 01/11/24 14:46:00 EDT, Tablet, [facility]/pharmacy #[id number], Partial fill upon patient request if the prescription is for a schedule II opioid drug., 168, cm, 01/11/24 14:42:00 EDT, Height,... Start Date: 01/11/24 Status: Ordered Flonase Allergy Relief 50 mcg/inh nasal spray See Instructions, 1 sprays Daily in each nostril, # 16 Gm, 0 Refills, Maintenance, 02/15/24 13:39:00 EDT, [facility]/pharmacy #[id number], Partial fill upon patient request if the prescription is for a schedule II opioid drug., 168, cm, 02/03/24 10:41:00 EDT, Height Start Date: 02/15/24 Status: Ordered folic acid 1 mg oral tablet 1, tablet, By Mouth, Daily, # 90 tablet, Refills 1, Tot. Refills 1, Maintenance, 02/17/24 7:23:00 EDT, Route to Pharmacy Electronically, [facility]/pharmacy #[id number], 168, cm, 02/15/24 13:43:00 [...] 01/21/19 11:25:36 EDT, Route to Pharmacy Electronically, [id number], [facility]/pharmacy #[id number] Start Date: 01/21/19 Stop Date: 05/21/19 Status: Ordered lisinopril 10 mg oral tablet 10 mg, 1, tablet, By Mouth, Daily, for 30 days, DECREASED STRENGTH, # 30 tablet, Refills 0, Tot. Refills 0, Acute 04/16/24 9:47:00 EDT, 03/17/24 9:47:00 EDT, Route to Pharmacy Electronically, [facility]/pharmacy #[id number], 168, cm, 03/17/24 9:46:00 EDT, Height [...] Refills, Maintenance, 03/17/24 14:24:00 EDT, [facility]/pharmacy #[id number], 168, cm, 03/17/24 9:46:00 EDT, Height Start Date: 03/17/24 Status: Ordered nitroglycerin 0.4 mg sublingual tablet See Instructions, DISSOLVE 1 UNDER TONGUE EVERY 5 MINUTES NEEDED FOR CHEST PAIN CALL MD AFTER TAKING 3 TABS IN TOTAL IN A DAY, # 100 tablet, 0 Refills, Maintenance, 10/03/22 15:53:00 EDT, [facility]/pharmacy #[id number], 175, cm, 09/17/22 13:59:00 [...] mL, 0 Refills, Maintenance, 02/02/24 15:28:00 EDT, [place], [facility]/pharmacy #[id number], Partial fill upon patient... Start Date: 02/02/24 Status: Ordered Pen [place], 31 G x 5 mm BD Ultra [...] Refills, Maintenance, 02/04/24 16:39:00 EDT, [id number], 168, cm, 02/03/24 10:41:00 EDT, Height Start [...] 524 weeks therapy with sofosbuvir/weight based ribavirin 51157 inferolateral stent bare metal circumflex 7DR Marissa sx;Dr Schwartz 8hyperplatic polyp repeat screening in 2025 9repeat colonoscopy in 5 years Diagnosis Diagnosis Type Effective Dates Health Status Clinical Service Informant Hypertension Discharge Diagnosis 03/16/24 CKD (chronic kidney disease) stage 4, GFR 15-29 ml/min Discharge Diagnosis 03/16/24 Obese class I Discharge Diagnosis 03/16/24 Type 2 diabetes mellitus with diabetic nephropathy Discharge Diagnosis 03/16/24 Bradycardia Discharge Diagnosis 03/16/24 Hyperkalemia Discharge Diagnosis 03/17/24 Bipolar disorder Discharge Diagnosis 03/17/24 Persistent proteinuria- SEEING NEPHROLOGY Discharge Diagnosis 03/17/24 ASHD; [place] 2012/stent circumflex vessel cath;abdelrahman 2019 Discharge Diagnosis 03/17/24 Vital Signs Most recent to oldest [Reference Range]: 1 2 3 Height 168.0 cm (03/17/24 9:46 AM) 168.0 cm (03/17/24 9:26 AM) 168.0 cm (03/17/24 9:19 AM) Weight 85.5 kg (03/17/24 9:19 AM) Oxygen Saturation [94-100 %] 97 % (03/17/24 9:19 AM) Pulse Rate [55-90 bpm] 88 bpm (03/17/24 9:19 AM) Body Mass Index [18.5-24.99 kg/m2] 30.29 kg/m2 *>HHI* (03/17/24 9:19 AM) Blood Pressure [90-138/55-84 mm Hg] 144/60mm Hg *H* (03/17/24 9:46 AM) 152/70mm Hg *H* (03/17/24 9:26 AM) 170/69mm Hg *H* (03/17/24 9:19 AM) Mode of Delivery (Oxygen) Room air (03/17/24 9:19 AM) Blood pressure sites Arm, left (03/17/24 9:46 AM) Arm, left (03/17/24 9:26 AM) Arm, left (03/17/24 9:19 AM) Weight Obtained Via Standing scale (03/17/24 9:19 AM) Social History Social History Type Response Smoking Status Former smoker, quit more than 30 days ago; Interested in cessation: No; Other: quit; Tobacco use times per day: prio 1/2-1 ppd; Total pack years: 38; Started at age: 12; Stopped at age: 63; entered on: 07/20/20 Sex Note * Clara Mejia: PERFORM Event Display: Patient Education/Instruction Authored Date: [id number] Ambulatory Adult Visit Summary [facility] Adult [facility] [address] [place] [address] Name: BRITTANY BORDEN : 1955?? Visit: 03/17/2024 09:10?? Ambulatory Visit Instructions ?? Your Care Team Primary Care Provider Carrie OPERATING SYSTEM PROGRAMMER, Kelly L? This Visit Provider Kelly Butler NP. Your Diagnosis Hypertension CKD (chronic kidney disease) stage 4, GFR 15-29 ml/min ASHD; [place] 2012/stent circumflex vessel cath;abdelrahman 2019 Ex-cigarette smoker Obese class I History of alcoholism Type 2 diabetes mellitus with diabetic nephropathy Bradycardia Vitals Signs Pulse Rate: 88 bpm Height: 168 cm Systolic Blood Pressure:??144 mm Hg??High Weight: 85.5 kg Diastolic Blood Pressure: 60 mm Hg Body Mass Index:??30.29 kg/m2??Critical Oxygen Saturation: 97 % Body surface area: 2 What to do next Scheduled Follow-Up Appointments Thursday 10:10 AM EDT ?? With: Kelly Butler NP Where: [facility] [address] [address]- Status: Pending Thursday 2:15 PM EDT ?? With: Larissa Schaeffer NP Where: [facility] [address] [facility] [address] [place] [address]- Status: Pending Thursday 2:30 PM EST ?? With: Kelly Butler NP Where[facility] [address] [place] [address]- Status: Pending Follow-Up Appointments Follow Up with??Kelly Butler NP When:??In 1 month Why: 40 minutes Where: ?? Future Orders PTH Intact - Once, *Est. [...] What How Much When Why Instructions New Lisinopril (lisinopril 10 mg oral tablet) 1 tab(s) Oral Daily Duration: 30 Days DECREASED STRENGTH ?? Pickup at [facility]/pharmacy #[id number] New Multivitamin (Daily Simone oral tablet) 1 tab(s) Oral Daily Refills: 1 Pickup at [facility]/pharmacy #[id number] Unchanged Acetaminophen (acetaminophen 325 mg oral tablet) 2 tab(s) Oral 3 times a day as needed for as needed for fever, pain Do not take more than 6 pills in a 24-hour period ?? Unchanged Albuterol (Albuterol (Eqv-Ventolin HFA) 90 mcg/ inh inhalation aerosol) 2 puff(s) Inhalation Every 4 hours as needed for cough, SOB, wheeze Unchanged Albuterol (albuterol 90 mcg/ inh inhalation [...] Duration: 14 Days Unchanged Durable Medical Equipment (Aerochamber) See instructions always use with inhaler ?? Unchanged Durable Medical Equipment (Blood Pressure Monitor) See instructions For Home blood pressure measurement ?? Unchanged Durable Medical Equipment (Freestyle Lite Lancets) See instructions Check blood sugars three times a day DM Type 2 E11.9 ?? Unchanged Durable Medical Equipment (Freestyle Lite Test Strips) See instructions Check blood sugars three times a day DM Type 2 E11.9 ?? Unchanged Durable Medical Equipment (Pen [place], 31 G x 5 mm BD Ultra [...] Twice a day Duration: 30 Days Unchanged Lamotrigine (lamotrigine 100 mg oral tablet) TAKE 1 TABLET BY MOUTH TWICE A DAY ?? Unchanged Lorazepam (Ativan 1 mg oral tablet) 1 tab(s) Oral 4 times a day Unchanged Methylphenidate (methylphenidate 5 mg oral tablet) TAKE 1 TABLET BY MOUTH THREE TIMES A DAY ?? Unchanged Miscellaneous Rx (Basic Metabolic Profile) See instructions Basic Metabolic Profile ?? Unchanged Nitroglycerin (nitroglycerin 0.4 mg sublingual [...] tablet) 1 tab(s) Oral Daily Pharmacy Information [facility]/pharmacy #[id number]: [address], [place] [phone] Medications and Immunizations Administered Medications Given During [...] are strongly encouraged to quit. Please call [facility] at [phone] or 7-722-751Rift.io ([phone]) or log in to [email or web address] for referrals to smoking cessation programs. ?? The National Suicide Prevention Hotline is available 26/01 if you or someone you know needs to find a reason to keep living. By calling 8-270-137-Habet (6438) you'll be connected to a skilled, trained counselor at a crisis center in your area. [facility] Portal You can view and manage your care through the patient portal or by using a health care [place] of your choosing. [employer] is a website that allows you to securely view your medical information including your hospital discharge summary, office visit summaries, medications and follow-up visits. You can also request appointments, renew medications, and request access to your medical information using a health care [place] of your choosing, or just ask a question. You can enroll at [email or web address] or register during your next office visit. [facility], in keeping with [facility] guidance, no longer requires face masks for [...] primary care provider, you may find a [facility] provider by calling [facility] at [phone]. Patient Care team information Care Team Personnel Name: Jeffrey Mccoy MD Position: [facility] Renal MD Member Role: Lifetime Consulting Physician Address: Address: [address] [place], [place] [address] [place], [place] - Name: Kelly Butler NP Position: [facility] PCO Associate Professional Member Role: PCP Address: Address: [address] [place] [id number] Name: Kristin Mckenzie Position: S Outreach Member Role: Lifetime Consulting Physician Name: Fortunato Sin RN Position: [facility] RN Member Role: Primary Care Nurse Name: Nury Watts RN Position: S RN Member Role: Primary Care Nurse Name: Antonia Mena NP Position: [facility] Associate Professional Member Role: Lifetime Consulting Provider Address: Address: [address] [place], [place] [address] [place], [place] - Name: Prieto Tobin RN Position: S RN Member Role: Primary Care Nurse Name: Ashleigh Reynoso RN Position: S RN Member Role: Primary Care Nurse Name: Jonn Hui DO Position: [facility] Renal MD Member Role: Lifetime Consulting Physician Address: Address: [address] [place], [place] [address] [place], [place] - Name: Luis Angel Stephen RN Position: S RN Member Role: Primary Care Nurse Name: Brandan Nogueira RN Position: S RN Member Role: Primary Care Nurse Care Team Related Persons Name: CARLOS A BORDEN Address: home [address] [place] [address] Name: LEVI BORDEN Address: home [address] [place] [address]
--- OUTSIDE RECORDS SUMMARY | 2024-06-01 12:07 | XMS_ITS | Continuity of Care Document ---
Author Organization [facility] Address [address] [place] [address]- Care Team Providers Care Pump House Operator Name Role Phone Carrie Kelly RIVERA Primary Care Physician [place] [facility] [place]/01[place]23 - 01/31/23 [facility] [address] [place] [address]- Attending Physician: Radha Biggs Admitting Physician: Radha [...] influenza virus vaccine, inactivated 04/16/10 Give n [id number] 12y+ bivalent booster vax 05/17/22 Recorded SARS-CoV-2 [...] tablet, 1 Refills, Maintenance, 12/30/22 14:35:00 EDT, [facility]/pharmacy#[id number], 175, cm, 10/09/22 16:51:00 EDT, [...] Refills, Maintenance, 01/07/23 21:36:00 EDT, [id number], 90, TAKE 1 TABLET BY MOUTH EVERY [...] capsule, 0 Refills, Maintenance, 12/30/22 14:30:00 EDT, [facility]/pharmacy #[id number], 175, cm, 10/09/22 16:51:00 EDT, Height, 93, kg, 01/28/22 14:55:00 EDT, Dry Weight Start Date: 12/30/22 Status: Ordered docusate sodium 100 mg oral capsule 1 capsule, By Mouth, 2 times a day, PRN NEEDED FOR CONSTIPATION, # 60 capsule, 5 Refills, Maintenance, 07/18/22 11:59:00 EST, [facility]/pharmacy #[id number], 175, cm, 07/17/22 10:33:00 EST, Height, 93, kg, 01/28/22 14:55:00 EDT, Dry Weight Start Date: 07/18/22 Status: Ordered Flonase 50 mcg/inh nasal spray 1 sprays, Nares, Both, 2 times a day, # 16 Gm, 0 Refills, Maintenance, 09/05/22 9:15:00 EST, [place],[facility]/pharmacy #[id number], Partial fill upon patient request if the prescription is for a schedule II opioid drug., 1 sprays Nares, Both 2 times a day, 175, c... Start Date: 09/05/22 Status: Ordered folic acid 1 mg oral tablet 1, tablet, By Mouth, Daily, # 90 tablet, Refills 1, Tot. Refills 1, Maintenance, 01/08/23 13:00:00 EDT, Route to Pharmacy Electronically, [facility]/pharmacy #[id number], 175, cm, 10/09/22 16:51:00 [...] 01/21/19 11:25:36 EDT, Route to Pharmacy Electronically, [id number], [facility]/pharmacy #[id number] Start Date: 01/21/19 Stop Date: 05/21/19 Status: Ordered lisinopril 40 mg oral tablet 1 tablet, By Mouth, Daily, # 90 tablet, 0 Refills, Maintenance, 12/29/22 11:59:00 EDT, [facility]/pharmacy#[id number], 175, cm, 10/09/22 16:51:00 EDT, Height, 93, kg, 01/28/22 14:55:00 EDT, Dry Weight Start Date: 12/29/22 Status: Ordered Metoprolol Tartrate 50 mg oral tablet 1.5 tablet, By Mouth, 2 times a day, # 270 tablet, 1 Refills, Maintenance, 09/01/22 13:28:00 EST, [facility] STORE [id number], 175, cm, 07/17/22 10:33:00 EST, Height, 93, [...] 15 Unknown, 2 Refills, 11/07/22 0:09:00 EDT, [facility]/pharmacy #[id number], 175, cm, 10/09/22 16:51:00 EDT, Height, 93, kg, 01/28/22 14:55:00 EDT, Dry Weight Start Date: 11/07/22 Status: Ordered Pen [place], 31 G x 5 mm BD Ultra [...] Refills, Maintenance, 08/07/22 12:55:00EST, Capsule, [facility]/pharmacy #[id number], 175, cm, 07/17/22 10:33:00 EST, Height, 93, kg, 01/28/22 14:55:00EDT, Dry Weight Start Date: 08/07/22 Status: Ordered rosuvastatin 20 mg oral tablet 1 tablet, By Mouth, Daily, # 90 tablet, 0 Refills, Maintenance, 12/30/22 14:34:00 EDT, [facility]/pharmacy#[id number], 175, cm, 10/09/22 16:51:00 EDT, Height, 93, kg, 01/28/22 14:55:00 EDT, Dry Weight Start Date: 12/30/22 Status: Ordered Senna 8.6 mg oral tablet 1 or 2 tablets, By Mouth, Daily at bedtime, PRN, # 60 tablet, Refills 5, Tot. Refills 5, Maintenance, Constipation, 11/03/22 15:04:00 EDT, Route to Pharmacy Electronically, [facility]/pharmacy #[id number] Tablet,Partial fill upon patient [...] 1 Refills, 01/21/22 15:39:00 EDT, [facility]/pharmacy #[id number], 175.2, [...] 524 weeks therapy with sofosbuvir/weight based ribavirin 10804 inferolateral stent bare metal circumflex 7DR Marissa [...] Cardiac Rehab Plan of Care Authored Date: * Darcy Richards: PERFORM, SIGN, VERIFY Event Display: Patient Education/Instruction Authored Date: [id number] [facility] Cardiology1 Clinical Summary Person Information Name BRITTANY [...] tablet, Oral, Daily, with breakfast, Refills: 1 [place] (lithium 450 mg oral tablet, extended release) [...] primary care provider, you may find a [facility] provider by calling [facility] at [phone]. Patient Education Information Follow-up Details: Patient Education Material: Please follow instructions discussed with your provider during this visit as well as any education documents you were given today. Cardiology Outpatient Note * Jeffrey Leon MD: SIGN Jeffrey Leon MD: SIGN, SIGN, VERIFY Event Display: Cardiology Note Office Authored Date: [id number] Patient: BRITTANY BORDEN Age: 58 years Sex: [...] Team Personnel Name: Jeffrey Mccoy MD Position: [facility] Renal MD Member Role: Lifetime Consulting Physician Address: Address: [address] [place] [address] [facility] [place], [place] [address] Name: Kelly Butler NP Position: [facility] PCO Associate Professional Member Role: PCP Address: Address: [address] [place] [address]- Name: Kristin Mckenzie Position: [facility] Outreach Member Role: Lifetime Consulting Physician Name: Prieto Tobin RN Position: [facility] RN Member Role: Primary Care Nurse Name: Jonn Hui DO Position: [facility] Renal MD Member Role: Lifetime Consulting Physician Address: Address: [address] [place], [place] [address] [place], [place] [address] Name: Luis Angel Stephen RN Position: [facility] RN Member Role: Primary Care Nurse Care Team Related Persons Name: CARLOS A BORDEN Address: home [address] [place] [address] Name: LEVI BORDEN Address: home [address] [place] [address]
--- NOTE | 2024-06-01 12:08 | ED_ITS ---
HPI - Back Pain/Injury General Chief Complaint: Back Pain/Injury Stated Complaint: Back pain Time Seen by Provider: 06/01/24 12:07 Source: patient and RN notes reviewed Mode of arrival: ambulatory Limitations: no limitations History of Present Illness ED Provider: Chrissy Drew PA-C HPI Narrative: This is a 68-year-old male, with a history of hypertension, hyperlipidemia, CAD, diabetes, tobacco abuse, CKD, who presents emergency department for evaluation of acute on chronic low back pain. Patient reports that over this last month and a half, patient has had pain in his left low back radiating down his left leg. He states that he has a history of low back pain however believes that this was exacerbated after getting up and down from his friends lifted truck. He states that the pain worsens with ambulation. He states that he has followed up with [facility] where they ordered an MRI. He had this done last week however he does not know the results of this. He states that he is scheduled to see Dr. Thorpe's in July however states that the pain is unmanageable. He denies any saddle anesthesia. He denies any urinary or bowel incontinence. Denies any dysuria, hematuria, urinary frequency or urgency. Denies any abdominal pain. No fevers or chills. He denies any chest pain or shortness of breath. He was last seen by his compliance representative in February, unsure of kidney function however has never been on dialysis. Admits to taking ibuprofen 800 mg every 8 hours. He denies history of IVDA. Denies any recent hospitalizations, surgeries. No history of DVTs MD elicited complaint: back pain Quality: aching Location: lumbar spine Radiation: left leg below the knee Exacerbating factors: none Relieving factors: none Associated symptoms: denies other symptoms Related Data Allergies Allergy/AdvReac Type Severity Reaction Status Date / Time bee pollen [BEE STINGS] Allergy Unknown THROAT Verified 06/01/24 10:00 SWELLING Review of Systems 2 Review of Systems: Yes all other systems are reviewed and are negative Constitutional: Constitutional: Reports as per [facility] Past Medical History Medical History (Updated 06/01/24 @ 21:33 by TEOFILO Barros) CAD (coronary artery disease) Chronic lower back pain Non-insulin dependent type 2 diabetes mellitus HLD (hyperlipidemia) HTN (hypertension) Social History Social History Advance Directives: No Advance Directives Information Provided: Yes Physical Exam 2 Vital Signs: Vital Signs: Last Vital Signs Temp 97.8 F 06/01/24 20:08 Pulse 79 06/01/24 20:08 Resp 16 06/01/24 20:08 BP 144/48 H 06/01/24 20:08 Pulse Ox 97 06/01/24 20:08 O2 Del Method Room Air 06/01/24 20:08 BMI result Body Mass Index 28.8 Const: General: cooperative, comfortable and no acute distress O rientation/consciousness: patient oriented x3 Limitations: no limitations HEENT: Head: Yes normal to inspection, Yes normocephalic and Yes atraumatic Ears: hearing grossly normal bilaterally General nose exam: Normal external nose present Face and sinus: Yes normal facial exam Mouth: Normal oral and palatal mucosa present, oropharynx normal and moist mucous membranes Throat: Yes posterior oropharynx normal Eyes: General: appearance normal, both eyes and all related structures E yelids: Yes eyelids normal Conjunctivae: conjunctivae normal Sclerae: s clerae normal Pupils: Equal, round and reactive pupils present EOM: EOMs intact bilaterally Neck: Neck: Yes normal visual inspection, Yes full ROM and Yes no lymphadenopathy Lymphatic: no lymphadenopathy noted Chest: Chest palpation & inspection: normal inspection of the chest Resp: Effort & Inspection: normal respiratory effort and able to speak in complete sentences Auscultation: clear to auscultation bilaterally, no crackles, no rales, no rhonchi and no wheezes Cardio: Rate: regular rate Rhythm: regular rhythm Heart sounds: S1 normal heart sound present and S2 normal heart sound present GI: Other: Abdomen is soft, nontender nondistended Inspection: Yes normal to inspection : General: Yes no CVA tenderness Back/Spine/Pelvis: Other: Tenderness palpation along the left low back, and left buttocks. No overlying skin changes or warmth. Patient has tenderness palpation along the left calf. Strong DP pulse. 2+ pitting edema noted on the left, 1+ pitting edema right. Back: no CVA tenderness Skin: General skin exam: no rashes or lesions noted Trauma: no lacerations or abrasions Wounds: no wounds Neuro: General: patient oriented x3 and moves all extremities Cranial nerves: Yes Equal, round and reactive pupils present Extrem: General: Yes normal to inspection Right upper extremity: normal to inspection Left upper extremity: normal to inspection Right lower extremity: normal to inspection Left lower extremity: normal to inspection Course Reevaluation(s) Reevaluation #1: Received critical level of creatinine of 4.23 and a BUN of 72, elevated potassium at 5.8, he also has an elevated troponin level of 93.9, and BNP of 474. He has no CP or SOB. I reached out to [facility], which is where he sees Dr. Hui. His last creatinine level was performed in February, creatinine was 2.88 with BUN of 19 at that time. The help desk associate also told me other creatinine levels over the course of this past year including 2.7, 2.8, 2.3, it appears that patient has baseline creatinine is 2.5-2.8. EKG was performed, he has no ST elevation or depression. Normal sinus rhythm at a ventricular rate of beats per minute again he have any chest pain or shortness of breath. I discussed this case with my attending physician, Dr. Lazcano. We will obtain CT scan to rule out obstructive pathology. Will also start IV fluids. Ultrasound is still pending at this time. Reached out to compliance representative on-call, Dr. Orosco, for recommendations. We will continue to monitor. Discussed workup with patient, and he is willing to stay as patient will need to be closely monitored due to ESTELA. It is unclear if this is attributed to obstructive pathology versus NSAID and lisinopril usage due to back pain. Time: 14:06 Reevaluation #2: Sigrid Lozada reached out to me, she works with Dr. Orosco who reviewed case. They agree with obtaining CT scan to rule out obstruction and IV fluids. Recommending 10 g of Lokelma for hyperkalemia and recheck potassium in several hours after receiving this. Likely injury from ibuprofen with combination of lisinopril but we will await for the CT scan report. Time: 16:00 Reevaluation #3: Still awaiting CT scan report to come back, I escalated that the CT scan report to be read by Radiology as it has been greater than 2-1/2 hours. Remains comfortable, will continue to closely monitor. Also awaiting repeat troponin. Time: 18:42 Additional Reevaluation(s): 1956 - repeat troponin flat at 104.7. Given critical result, I discussed with my attending physician, Dr. Niño, given that he has no chest pain or shortness for breath, elevated troponin likely due to elevated creatinine. Repeat EKG was performed revealing normal sinus rhythm with no ischemic changes. still awaiting for the CT scan report. He is urinating freely, post void residual 9 cc of urine. 2014 - CT scan returns, revealing small pericardial effusion, but no acute abnormality of the abdomen or pelvis. There is multilevel degenerative spondylosis of the spine. Discussed case with hospitalist, Dr. Loving, transfer of care initiated. Medications Administered Generic Name Dose Route Start Last Admin Trade Name Freq PRN Reason Stop Dose Admin Sodium Chloride 1,000 mls @ 100 mls/hr 06/01/24 14:48 06/01/24 19:39 Ns IVCONT 06/02/24 00:47 Infused .Q10H ONE Infusion Sodium Chloride 1,000 mls @ 100 mls/hr 06/01/24 19:45 06/01/24 21:02 Ns IV 06/02/24 05:44 100 mls/hr .Q10H ULISES Administration Discontinued Medications Generic Name Dose Route Start Last Admin Trade Name Freq PRN Reason Stop Dose Admin Morphine Sulfate 4 mg 06/01/24 16:55 06/01/24 17:24 Morphine Sulfate 4 Mg/Ml Cartridge IVPUSH 06/01/24 16:56 4 mg ONCE ONE Administration Protocol Sodium Zirconium Cyclosilicate 10 gm 06/01/24 16:31 06/01/24 17:53 Sodium Zirconium Cyclosilicate 10 Gm Powd.Pack PO 06/01/24 16:32 10 gm ONCE ONE Administration Medical Decision Making Medical Decision Making [facility] Narrative: This is a 68-year-old male, with a history of hypertension, hyperlipidemia, CAD, diabetes, tobacco abuse, CKD, who presents emergency department for evaluation of acute on chronic low back pain. On arrival, blood pressure 175/55, improved to 163/61. On examination, he does have 2+ pitting edema noted on the left, 1+ pitting edema in the right, with left calf tenderness. Given these findings, will obtain labs, EKG, as well as x-rays. He did have an MRI performed by claire, that was ordered by [facility] in his awaiting the results. He has no chest pain or shortness for breath. Plan: Labs, EKG, x-ray, ultrasound Differential Diagnosis Differential Diagnoses: The differential diagnosis associated with the presentation includes Lumbar radiculopathy, sciatica, disc herniation, ESTELA, obstructive uropathy Admission/Observation Consideration of admission/observation: Escalation of care including admission/observation considered Consult Healthcare Provider Management of the patient was discussed with: Hospitalist and Order Takers Supervisor Nephrology Lab Data MDM Lab Attestation statement: I reviewed the patient's lab results. Slight leukocytosis at 11.3, normocytic anemia with an H&H of 12.1/35.7. Creatinine 4.23, BUN 72, potassium elevated at 5.8, chloride 118, carbon dioxide at 15, elevated troponin at 93.9, BNP 474. Repeat troponin 104. 06/01/24 13:33 06/01/24 19:51 Labs: Lab Results 06/01/24 06/01/24 06/01/24 Range/Units 13:32 13:33 16:15 WBC 11.3 H (4.8-10.8) X10*3/uL RBC 3.98 L (4.60-5.80) X10*6/uL Hgb 12.1 L (14.0-18.0) g/dl Hct 35.7 L (42.0-52.0) % MCV 89.7 (80.0-98.0) fL MCH 30.4 (27.0-33.0) pg MCHC 33.9 (31.0-36.0) g/dl RDW 13.1 (11.0-16.0) % Plt Count 194 (160-400) X10*3/uL MPV 9.8 (9.4-12.4) fL Immature Gran % (Auto) 0.4 (0.0-0.4) % Neut % (Auto) 71.5 (45-73) % Lymph % (Auto) 12.9 L (20-40) % [place] % (Auto) 6.4 (2-11) % Eos % (Auto) 8.4 H (0-4) % Baso % (Auto) 0.4 (0-2) % Lymph # (Auto) 1.5 (1.2-4.9) X10*3/uL [place] # (Auto) 0.7 (0.1-1.2) X10*3/uL Eos # (Auto) 1.0 H (0.0-0.4) X10*3/uL Baso # (Auto) 0.1 (0.0-0.2) X10*3/uL Abs Immat Gran (auto) 0.04 H (0.00-0.03) X10*3/uL Absolute Neuts (auto) 8.1 (2.0-8.3) x10*3/uL Absolute Nucleated RBC 0.000 (0.0-0.012) X10*3/uL Nucleated RBC % (auto) 0.0 (0.0-0.2) /100WBC Sodium 144 (135-145) mmol/L Potassium 5.8 H (3.3-5.1) mmol/L Chloride 118 H (96-108) mmol/L Carbon Dioxide 15 L (22-29) mmol/L Anion Gap 17 (12-20) BUN 72 H (9-16) mg/dL Creatinine 4.23 H* (0.5-1.4) mg/dL Estim Creat Clear Calc 18.3 Estimated GFR 14 Random Glucose 102 (60-115) mg/dL Calcium 9.0 (8.4-10.2) mg/dL Magnesium 2.1 (1.6-2.6) mg/dL Total Bilirubin 0.3 (0.0-1.0) mg/dL Direct Bilirubin 0.1 (0.0-0.5) mg/dL AST 24 (5-37) U/L ALT 22 (0-40) U/L Alkaline Phosphatase 79 (39-117) U/L Total Creatine Kinase 78 (38-174) U/L Troponin I High Sens 93.9 H (<3.5-35.0) ng/L B-Natriuretic Peptide 474 H (<100) pg/mL Total Protein 7.6 (6.5-8.0) g/dL Albumin 4.3 (3.5-5.0) g/dL Urine Color Yellow Urine Appearance Clear Urine pH 5.5 (5.0-9.0) Ur Specific [place] 1.010 (1.005-1.025) Urine Protein 300 (3+) H (Neg-Trace) mg/dL Urine Glucose (UA) 250 H (Negative) mg/dL Urine Ketones Negative (Negative) mg/dL Urine Blood Negative (Negative) Urine Nitrite Negative (Negative) Ur Leukocyte Esterase Negative (Negative) Urine RBC 0-2 (0-2) /HPF Urine WBC 0-5 (0-5) /HPF Ur Squamous Epith Cells 0-2 (0-2) /HPF Urine Bacteria None Seen (None Seen) Hyaline Casts 0-2 (0-2) /LPF U Random Total Protein 182 H (<12) mg/dL Ur Random Sodium 93.0 mmol/L Urine Creatinine 20.34 mg/dL Protein/Creatinin Ratio 8.95 H (<0.2) 06/01/24 06/01/24 Range/Units 18:31 19:51 WBC (4.8-10.8) X10*3/uL RBC (4.60-5.80) X10*6/uL Hgb (14.0-18.0) g/dl Hct (42.0-52.0) % MCV (80.0-98.0) fL MCH (27.0-33.0) pg MCHC (31.0-36.0) g/dl RDW (11.0-16.0) % Plt Count (160-400) X10*3/uL MPV (9.4-12.4) fL Immature Gran % (Auto) (0.0-0.4) % Neut % (Auto) (45-73) % Lymph % (Auto) (20-40) % [place] % (Auto) (2-11) % Eos % (Auto) (0-4) % Baso % (Auto) (0-2) % Lymph # (Auto) (1.2-4.9) X10*3/uL [place] # (Auto) (0.1-1.2) X10*3/uL Eos # (Auto) (0.0-0.4) X10*3/uL Baso # (Auto) (0.0-0.2) X10*3/uL Abs Immat Gran (auto) (0.00-0.03) X10*3/uL Absolute Neuts (auto) (2.0-8.3) x10*3/uL Absolute Nucleated RBC (0.0-0.012) X10*3/uL Nucleated RBC % (auto) (0.0-0.2) /100WBC Sodium 149 H (135-145) mmol/L Potassium 5.0 (3.3-5.1) mmol/L Chloride 120 H (96-108) mmol/L Carbon Dioxide 14 L (22-29) mmol/L Anion Gap 20 (12-20) BUN 66 H (9-16) mg/dL Creatinine 3.95 H (0.5-1.4) mg/dL Estim Creat Clear Calc 19.7 Estimated GFR 15 Random Glucose 90 (60-115) mg/dL Calcium 8.9 (8.4-10.2) mg/dL Magnesium (1.6-2.6) mg/dL Total Bilirubin 0.3 (0.0-1.0) mg/dL Direct Bilirubin (0.0-0.5) mg/dL AST 19 (5-37) U/L ALT 18 (0-40) U/L Alkaline Phosphatase 81 (39-117) U/L Total Creatine Kinase (38-174) U/L Troponin I High Sens 104.7 H* (<3.5-35.0) ng/L B-Natriuretic Peptide (<100) pg/mL Total Protein 7.1 (6.5-8.0) g/dL Albumin 4.1 (3.5-5.0) g/dL Urine Color Urine Appearance Urine pH (5.0-9.0) Ur Specific [place] (1.005-1.025) Urine Protein (Neg-Trace) mg/dL Urine Glucose (UA) (Negative) mg/dL Urine Ketones (Negative) mg/dL Urine Blood (Negative) Urine Nitrite (Negative) Ur Leukocyte Esterase (Negative) Urine RBC (0-2) /HPF Urine WBC (0-5) /HPF Ur Squamous Epith Cells (0-2) /HPF Urine Bacteria (None Seen) Hyaline Casts (0-2) /LPF U Random Total Protein (<12) mg/dL Ur Random Sodium mmol/L Urine Creatinine mg/dL Protein/Creatinin Ratio (<0.2) Independent Interpretation I performed an independent interpretation of an: EKG Interpretation: EKG performed at 1:16 p.m., normal sinus rhythm at a ventricular rate of 63 beats per minute, OH interval 160, QT QTC 404/413. No ST elevation or depression. Repeat EKG performed at 1854 normal sinus rhythm at a ventricular rate of 83 beats per minute, no ST elevation or depression. QT QTC 382/448 OH interval 160 Radiology Impression Discussion of test interpretation with radiology: I have reviewed the radiologist's reading. Radiologist Impression: EXAMINATION: CT ABDOMEN AND PELVIS WITHOUT CONTRAST CLINICAL INFORMATION: back pain, elevated kidney function, r/o obstruct COMPARISON: None available. TECHNIQUE: Multidetector volumetric imaging was performed from the superior aspect of the liver through the pubic symphysis. Sagittal and coronal reformatted images were obtained on the technologist's workstation. This CT examination was performed using dose optimization techniques as appropriate, variously including the following: *Automated exposure control *Adjustment of mA and/or kV according to patient size (this includes techniques or standardized protocols for targeted exams where dose is matched to indication/reason for exam; i.e. extremities or head) *Use of iterative reconstruction technique DLP: 603 mGy-cm FINDINGS: LUNG BASES: Small pericardial effusion. Lung bases normally aerated. LIVER, GALLBLADDER, AND BILIARY TREE: The liver is normal in size, shape, and attenuation. No focal hepatic lesion or biliary ductal dilatation is present. The gallbladder is unremarkable with no evidence of radiopaque gallstones, gallbladder wall thickening, or obvious pericholecystic inflammatory changes. PANCREAS: Unremarkable. SPLEEN: Unremarkable. ADRENAL GLANDS: Unremarkable. KIDNEYS AND URETERS: The kidneys are normal in size, shape, and attenuation. No hydronephrosis, hydroureter, or calculi seen. No perinephric stranding. BLADDER: Unremarkable. GASTROINTESTINAL TRACT: The small and large bowel are unremarkable. The appendix is unremarkable. ABDOMINAL WALL: No significant hernia is appreciated. LYMPH NODES: Normal. VASCULAR: Vascular calcifications in the abdomen and pelvis. There is no aneurysm. PELVIC VISCERA: Unremarkable. OSSEOUS STRUCTURES: No acute osseous abnormality. Multilevel degenerative spondylosis spine. CT/CT abdomen pelvis wo IV con IMPRESSION: 1. No acute abnormality CT scan abdomen pelvis. 2. Small pericardial effusion. 3. Multilevel degenerative spondylosis of the spine. Fleischner guidelines were followed. Electronically signed by: Cameron Ingram MD 06/01/2024 08:03 PM [facility] Dictated By: Cameron Ingram MD EXAMINATION: XR CHEST CLINICAL INFORMATION: peripheral edema COMPARISON: Chest x-ray on 09/19/2007 TECHNIQUE: 2 views of the chest were obtained. FINDINGS: No significant abnormality is noted involving the heart, lungs, mediastinum, bony thorax or soft tissues. XR/XR chest 2V IMPRESSION: Unremarkable examination. Electronically signed by: Vonda Fuentes MD 06/01/2024 04:47 PM EST RP Dictated By: Vonda Fuentes MD Signed By: <Electronically signed by Vonda Fuentes MD in OV> EXAMINATION: US TRIPLEX LOWER EXTREMITY, LEFT CLINICAL INFORMATION: Calf pain and swelling COMPARISON: Unfortunately duplex on 04/20/2021 TECHNIQUE: Color-flow triplex imaging with spectral analysis and compression Doppler were performed on the left lower extremity. FINDINGS: Respiratory variation, normal compression and augmented flow are noted throughout the left lower extremity. The visualized common femoral vein, superficial femoral vein, profunda femoral vein, popliteal vein and midcalf peroneal and posterior tibial venous segments show no evidence of deep venous thrombosis. There is no Grier's cyst. US/US venous duplex LE LT IMPRESSION: No evidence of deep venous thrombosis involving the left lower extremity. Electronically signed by: Vonda Fuentes MD 06/01/2024 03:34 PM EST RP Dictated By: Vonda Fuentes MD Chronic Conditions Patient?s care impacted by: Hypertension and Other (CKD) Critical Care Time Critical Care Time Critical Care Time: Yes Total Critical Care Time: 45 Attestation: I have personally provided critical care time exclusive of time spent on separately billable procedures. Time includes review of lab data, radiology results, discussion with consultants, and monitoring for potential decompensation. Intervention performed as documented. Discharge Plan Discharge Clinical Impression: Acute kidney injury superimposed on CKD, Hyperkalemia, Elevated troponin Patient Disposition: Still a Patient
--- OUTSIDE RECORDS SUMMARY | 2024-06-01 12:08 | XMS_ITS | Continuity of Care Document ---
Author Organization [facility] ed[facility] Address [address] [place] [address]- Care Team Providers Care Packaging Associate Name Role Phone Carrie DESKTOP SUPPORT ASSOCIATEKelly Primary Care Physician [phone] Encounter [facility] [place] Date(s): 08/12/22 - 09/11/22 [facility] [address] [place] [id number] Attending Physician: Radha Biggs Admitting Physician: AdmtrRadha [...] influenza virus vaccine, inactivated 04/16/10 Give n [id number] 12y+ bivalent booster vax 05/17/22 Recorded SARS-CoV-2 [...] 0 Refills, Maintenance, 09/05/22 9:14:00 EST, Tablet, [facility]/pharmacy #[id number], Partial fill upon patient [...] Refills, Maintenance, 05/21/22 13:33:00 EST, [facility], 175, cm, 05/09/22 11:08:00 EDT, Height, 93, kg, 01/28/22 14:55:00 EDT, Dry Weight Start Date: 05/21/22 Status: Ordered docusate sodium 100 mg oral capsule 1 capsule, By Mouth, 2 times a day, PRN NEEDED FOR CONSTIPATION, # 60 capsule, 5 Refills, Maintenance, 07/18/22 11:59:00 EST, [facility]/pharmacy #[id number], 175, cm, 07/17/22 10:33:00 EST, Height, 93, kg, 01/28/22 14:55:00 EDT, Dry Weight Start Date: 07/18/22 Status: Ordered Flonase 50 mcg/inh nasal spray 1 sprays, Nares, Both, 2 times a day, # 16 Gm, 0 Refills, Maintenance, 09/05/22 9:15:00 EST, [place],[facility]/pharmacy #[id number], Partial fill upon patient request if the prescription is for a schedule II opioid drug., 1 sprays Nares, Both 2 times a day, 175, c... Start Date: 09/05/22 Status: Ordered folic acid 1 mg oral tablet 1, tablet, By Mouth, Daily, # 30 tablet, Refills 5, Tot. Refills 5, Maintenance, 08/15/22 10:27:00 EST, Route to Pharmacy Electronically, [facility]/pharmacy #[id number], 175, cm, 07/17/22 10:33:00 [...] 01/21/19 11:25:36 EDT, Route to Pharmacy Electronically, [id number], [facility]/pharmacy #[id number] Start Date: 01/21/19 Stop Date: 05/21/19 Status: Ordered lisinopril 40 mg oral tablet 1 tablet, By Mouth, Daily, # 90 tablet, 1 Refills, Maintenance, 05/07/22 14:29:00 EDT, [facility], 175, cm, 04/08/22 8:34:00 EDT, Height, 93, kg, 01/28/22 14:55:00 EDT, Dry Weight Start Date: 05/07/22 Status: Ordered Metoprolol Tartrate 50 mg oral tablet 1.5 tablet, By Mouth, 2 times a day, # 270 tablet, 1 Refills, Maintenance, 09/01/22 13:28:00 EST, [facility], 175, cm, 07/17/22 10:33:00 EST, Height, 93, kg, 01/28/22 14:55:00 EDT, Dry Weight Start Date: 09/01/22 Status: Ordered Nicotine 7 mg/24 hour patch 1 patch, Topically, Daily, # 30 patch, 0 Refills, Acute 09/26/22 8:00:00 EDT, 08/29/22 16:51:00 EST, [facility], [id number], Partial fill upon [...] tablet, 0 Refills, Maintenance, 12/31/21 17:21:00 EDT, [facility]/pharmacy #[id number], 175.2, cm, 12/18/21 14:10:00 EDT, Height... Start Date: 12/31/21 Status: Ordered NovoLOG FlexPen 100 units/mL injectable solution See Instructions, INJECT 0-18 UNITS SUBCUTANEOUSLY WITH MEALS FOR SLIDING SCALES, # 15 Unknown, 2 Refills, [facility], 175.2, cm, 05/27/21 11:26:00 EST, Height, 88.3, kg, 03/12/21 9:16:00 EDT, Dry Weight Start Date: 06/04/21 Status: Ordered Pen [place], 31 G x 5 mm BD Ultra [...] 2 Refills, Maintenance, 08/07/22 12:55:00EST, Capsule, [facility]/pharmacy #[id number], 175, cm, 07/17/22 10:33:00 EST, Height, 93, kg, 01/28/22 14:55:00EDT, Dry Weight Start Date: 08/07/22 Status: Ordered rosuvastatin 20 mg oral tablet 1 tablet, By Mouth, Daily, # 90 tablet, 1 Refills, Maintenance, 05/21/22 13:33:00 EST, [facility], 175, cm, 05/09/22 11:08:00 EDT, Height, 93, kg, 01/28/22 14:55:00 EDT, Dry Weight Start Date: 05/21/22 Status: Ordered SEROquel 100 mg oral tablet 100 mg, 1, tablet, By Mouth, 2 times a day, PRN, # 1 tablet, Refills 2, Tot. Refills 2, Maintenance, Anxiety, 09/21/19 10:41:00 EDT, Route to Pharmacy Electronically, [facility]/pharmacy #[id number], 172, cm, 09/05/19 16:17:00 [...] 9 Unknown, 1 Refills, 01/21/22 15:39:00 EDT, [facility]/pharmacy #[id number], 175.2, cm, 12/18/21 14:10:00 EDT, Height... Start Date: 01/21/22 Status: Ordered Trulicity Pen 0.75 mg/0.5 mL subcutaneous solution 0.5 mL = 0.75 mg, Subcutaneous Injection, Every week, # 2.5 mL, 2 Refills, Maintenance, 04/08/22 9:12:00 EDT, Solution, [facility]/pharmacy #[id number], Partial fill upon patient [...] 524 weeks therapy with sofosbuvir/weight based ribavirin 99397 inferolateral stent bare metal circumflex 7DR Marissa [...] Role: Lifetime Consulting Physician Address: Address: [address] [place] [address] [facility] [place] [address]- Name: Kelly Butler NP Position: [facility] PCO Associate Professional Member Role: PCP Address: Address: [address] [place] [address]- Name: Kristin Mckenzie Position: [facility] Outreach Member Role: Lifetime Consulting Physician Name: Prieto Tobin RN Position: [facility] RN Member Role: Primary Care Nurse Name: Jonn Hui DO Position: [facility] Renal MD Member Role: Lifetime Consulting Physician Address: Address: [address] [place], [place] [address] [place] [address]- Name: Luis Angel Stephen RN Position: [facility] RN Member Role: Primary Care Nurse Name: Tamie Baird RN Position: [facility] RN Member Role: Primary Care Nurse Care Team Related Persons Name: CARLOS A BORDEN Address: home [address] [place] [address] Name: LEVI BORDEN Address: home [address] [place] [address]
--- OUTSIDE RECORDS SUMMARY | 2024-06-01 12:08 | XMS_ITS | Continuity of Care Document ---
Author Organization [facility] Address [address] [place] [address]- Care Team Providers Care Network Engineer Name Role Phone Carrie Kelly RIVERA Primary Care Physician Encounter [facility] [place] Date(s): 09/22/23 - 10/22/23 [facility] Adult [address] [place] [address]- Attending Physician: Christina Lu Allergies, Adverse Reactions, Alerts Substance Reaction Severity Status Bee Stings Active Immunizations Given and Recorded Vaccine Date Status Refusal Reason tetanus/diphtheria/pertussis, acel(Tdap) 10/15/23 Recorded tetanus/diphtheria/pertussis, acel(Tdap) 07/28/11 Given SARS-CoV-2(COVID-19)mRNA-LNP vac([id number]) 05/08/23 Recorded pneumococcal 20-valent conjugate vaccine 1 [...] 02/03/23 Recorded zoster vaccine, inactivated 08/09/19 Recorded [id number] 12y+ bivalent booster vax 05/17/22 Recorded SARS-CoV-2 [...] adult vaccine 4 12/10/10 Given 1Result Comment: [id number] 2Result Comment: [id number] 3Admin Note: pt waited 10 mins post inj no adverse reaction noted.j a 4Admin Note: PT WAITED 10 MIN WITH NO ADVERSE REACTION. Medications aspirin 81 mg oral delayed release tablet 1 tablet, By Mouth, Daily, # 90 tablet, 1 Refills, Maintenance, 06/02/23 11:42:00 EST, [facility]/pharmacy#[id number], 168, cm, 05/01/23 14:45:00 EDT, Height, [...] capsule, 1 Refills, Maintenance, 06/30/23 7:20:00 EST, [id number], 168, cm, 05/01/23 14:45:00 EDT, Height, 93, kg, 01/28/22 14:55:00 EDT, Dry Weight Start Date: 06/30/23 Status: Ordered Daily Simone oral tablet 1 tablet, By Mouth, Daily, # 90 tablet, 1 Refills, Maintenance, 06/30/23 7:20:00 EST, [id number], 90, TAKE 1 TABLET BY MOUTH EVERY [...] capsule, 0 Refills, Maintenance, 06/26/23 6:50:00 EST, [id number], 168, cm, 05/01/23 14:45:00 EDT, Height, 93, kg, 01/28/22 14:55:00 EDT, Dry Weight Start Date: 06/26/23 Status: Ordered folic acid 1 mg oral tablet 1, tablet, By Mouth, Daily, # 90 tablet, Refills 1, Tot. Refills 1, Maintenance, 07/03/23 10:01:00 EST, Route to Pharmacy Electronically, [facility]/pharmacy #[id number], 168, cm, 05/01/23 [...] 01/21/19 11:25:36 EDT, Route to Pharmacy Electronically, [id number], [facility]/pharmacy #[id number] Start Date: 01/21/19 Stop Date: 05/21/19 Status: Ordered lamotrigine 100 mg oral tablet Refills 0, Maintenance, 05/01/23 15:28:00 EDT, Partial fill upon patient request if the prescription is for a schedule II opioid drug. Start Date: 05/01/23 Status: Ordered lisinopril 40 mg oral tablet 1 tablet, By Mouth, Daily, # 90 tablet, 1 Refills, Maintenance, 08/17/23 13:33:00 EST, [facility]/pharmacy#0843, 168, cm, 07/23/23 15:05:00 EST, Height, 93, kg, 01/28/22 14:55:00 EDT, Dry Weight Start Date: 08/17/23 Status: Ordered Metoprolol Tartrate 50 mg oral tablet 1.5 tablet, By Mouth, 2 times a day, # 270 tablet, 1 Refills, Maintenance, 09/16/23 14:32:00 EDT, [facility]/pharmacy #[id number], 168, cm, 07/23/23 15:05:00 EST, Height, 93, kg, 01/28/22 14:55:00 EDT, Dry Weight Start Date: 09/16/23 Status: Ordered nitroglycerin 0.4 mg sublingual tablet See Instructions, DISSOLVE 1 UNDER TONGUE EVERY 5 MINUTES NEEDED FOR CHEST PAIN CALL MD AFTER TAKING 3 TABS IN TOTAL IN A DAY, # 100 tablet, 0 Refills, Maintenance, 10/03/22 15:53:00 EDT, [facility]/pharmacy #[id number], 175, cm, 09/17/22 13:59:00 EDT, Height,... Start Date: 10/03/22 Status: Ordered NovoLOG FlexPen 100 units/mL injectable solution See Instructions, INJECT 0-18 UNITS SUBCUTANEOUSLY WITH MEALS FOR SLIDING SCALES, # 15 Unknown, 2 Refills, 11/07/22 0:09:00 EDT, [id number], 175, cm, 10/09/22 16:51:00 EDT, Height, 93, kg, 01/28/22 14:55:00 EDT, Dry Weight Start Date: 11/07/22 Status: Ordered Pen [place], 31 G x 5 mm BD [...] Refills, Maintenance, 03/29/23 14:43:00 EDT, [facility], 175, cm, 10/09/22 16:51:00 EDT, Height, 93, [...] 524 weeks therapy with sofosbuvir/weight based ribavirin 37954 inferolateral stent bare metal circumflex 7DR [place] [...] Personnel Name: Darius HICKMAN, Jeffrey Lopez Position: [facility] Renal MD Member Role: Lifetime Consulting Physician Address: Address: [address] [place] [address] [address] [facility] [place] [address]- Name: Kelly Butler NP Position: [facility] PCO Associate Professional Member Role: PCP Address: Address: [address] [place] [address]- Name: Kristin Mckenzie Position: [facility] Outreach Member Role: Lifetime Consulting Physician Name: Prieto Tobin RN Position: [facility] RN Member Role: Primary Care Nurse Name: Jonn Hui DO Position: [facility] Renal MD Member Role: Lifetime Consulting Physician Address: Address: [address] [place], [place] [address] [place], [place] [address] Name: Zafar CALVO, Luis Angel Rojas Position: S RN Member Role: Primary Care Nurse Care Team Related Persons Name: CARLOS A BORDEN Address: [address] [place] [address] Name: LEVI BORDEN Address: home [address] [place] [address]
--- OUTSIDE RECORDS SUMMARY | 2024-06-01 12:08 | XMS_ITS | Continuity of Care Document ---
Author Organization [facility] Nando Escobar Lazaro lt Address [address] [place] [address]- Care Team Providers Care Hvac Designer Name Role Phone Carrie MANAGER FLOATKelly Primary Care Physician Encounter [facility] Date(s): 03/01/24 - 04/03/24 [facility] Adult [address] [place] [address]- Attending Physician: Not on Staff, Attending MD Allergies, Adverse Reactions, Alerts Substance Reaction Severity Status Bee Stings Active Immunizations Given and Recorded Vaccine Date Status Refusal Reason SARS-CoV-2(COVID-19)mRNA-LNP vac([id number]) 12/31/23 Recorded SARS-CoV-2(COVID-19)mRNA-LNP vac([id number]) 05/08/23 Recorded tetanus/diphtheria/pertussis, acel(Tdap) 10/15/23 Recorded tetanus/diphtheria/pertussis, [...] 02/03/23 Recorded zoster vaccine, inactivated 08/09/19 Recorded [id number] 12y+ bivalent booster vax 05/17/22 Recorded SARS-CoV-2 [...] adult vaccine 4 12/10/10 Given 1Result Comment: [id number] 2Result Comment: [id number] 3Admin Note: pt waited 10 mins post inj no adverse reaction noted.j a 4Admin Note: PT WAITED 10 MIN WITH NO ADVERSE REACTION. Medications albuterol 90 mcg/inh inhalation powder 1 puffs, Inhalation, Every 6 hours, PRN Wheezing/Shortness of Breath, # 1 each, 0 Refills, Maintenance, 02/15/24 13:38:00 EDT, Powder, [facility]/pharmacy #[id number], Partial fill upon patient request if the prescription is for a schedule II opioid drug., 1 puffs... Start Date: 02/15/24 Status: Ordered amLODIPine 10 mg oral tablet 10 mg, By Mouth, Daily, # 30 tablet, Refills 5, Tot. Refills 5, Maintenance, 03/11/24 11:59:00 EDT,Route to Pharmacy Electronically, [facility]/pharmacy #[id number], Partial fill upon patient request if the prescription is for a schedule II opioid drug., 168, cm,... Start Date: 03/11/24 Stop Date: 09/07/24 Status: Ordered aspirin 81 mg oral delayed release tablet 1 tablet, By Mouth, Daily, # 90 tablet, 1 Refills, Maintenance, 01/25/24 21:53:00 EDT, [facility]/pharmacy#0843, 168, cm, 01/11/24 14:42:00 EDT, Height, 93, [...] 11:18:00 EDT, Route to Pharmacy Electronically, [facility]/pharmacy #[id number], Partial fill upon patient request if the prescriptio... Start Date: 02/29/24 Stop Date: 03/14/24 Status: Ordered D3 50 mcg (2000 intl units) oral capsule 1 capsule, By Mouth, Daily, # 90 capsule, 0 Refills, Maintenance, 12/09/23 14:09:00 EDT, [facility]/pharmacy #[id number], 168, cm, 10/27/23 15:34:00 EDT, Height, 93, kg, 01/28/22 14:55:00 EDT, Dry Weight Start Date: 12/09/23 Status: Ordered Daily Simone oral tablet 1 tablet, By Mouth, Daily, # 90 tablet, 1 Refills, Maintenance, 03/17/24 9:34:00 EDT, [facility]/pharmacy #[id number], 90, 1 tablet By Mouth Daily, 168, cm, 03/17/24 9:26:00 EDT, Height Start Date: 03/17/24 Status: Ordered dapagliflozin 10 mg oral tablet 1 tablet = 10 mg, By Mouth, Daily, # 30 tablet, 0 Refills, Maintenance, 01/11/24 14:46:00 EDT, Tablet, [facility]/pharmacy #[id number], Partial [...] Pharmacy Electronically, [facility]/pharmacy #[id number], 168, cm, 02/15/24 13:43:00 EDT, Height [...] 01/21/19 11:25:36 EDT, Route to Pharmacy Electronically, [id number], [facility]/pharmacy #[id number] Start Date: 01/21/19 Stop Date: 05/21/19 Status: Ordered lisinopril 10 mg oral tablet 10 mg, 1, tablet, By Mouth, Daily, for 30 days, DECREASED STRENGTH, # 30 tablet, Refills 0, Tot. Refills 0, Acute 04/16/24 9:47:00 EDT, 03/17/24 9:47:00 EDT, Route to Pharmacy Electronically, [facility]/pharmacy #[id number], 168, cm, 03/17/24 9:46:00 EDT, Height [...] Maintenance, 03/17/24 14:24:00 EDT, [facility]/pharmacy #[id number], 168, cm, 03/17/24 9:46:00 EDT, Height Start Date: 03/17/24 Status: Ordered nitroglycerin 0.4 mg sublingual tablet See Instructions, DISSOLVE 1 UNDER TONGUE EVERY 5 MINUTES NEEDED FOR CHEST PAIN CALL MD AFTER TAKING 3 TABS IN TOTAL IN A DAY, # 100 tablet, 0 Refills, Maintenance, 10/03/22 15:53:00 EDT, [facility]/pharmacy #[id number], 175, cm, 09/17/22 13:59:00 EDT, Height,... Start Date: 10/03/22 Status: Ordered NovoLOG FlexPen 100 units/mL injectable solution See Instructions, INJECT 0-18 UNITS SUBCUTANEOUSLY WITH MEALS FOR SLIDING SCALES, # 15 Unknown, 2 Refills, 01/12/24 14:36:00 EDT, [facility]/pharmacy #[id number], MAX DAILY DOSE 54 UNITS, 168, [...] mL, 0 Refills, Maintenance, 02/02/24 15:28:00 EDT, [place], [facility], Partial fill upon patient... Start Date: 02/02/24 Status: Ordered Pen Java, 31 G x 5 mm BD Ultra [...] Refills, Maintenance, 02/04/24 16:39:00 EDT, [facility], 168, cm, 02/03/24 10:41:00 EDT, Height Start [...] 524 weeks therapy with sofosbuvir/weight based ribavirin 35329 inferolateral stent bare metal circumflex 7DR Molddoverno [...] Role: Lifetime Consulting Physician Address: Address: [address] [place] [address] [address] [facility] [place], [place] [address] Name: Kelly Butler NP Position: [facility] PCO Associate Professional Member Role: PCP Address: Address: [address] [place] [id number] Name: Kristin Mckenzie Position: [facility] Outreach Member Role: Lifetime Consulting Physician Name: Fortunato Sin RN Position: [facility] RN Member Role: Primary Care Nurse Name: Nury Watts RN Position: [facility] RN Member Role: Primary Care Nurse Name: Antonia Mena NP Position: [facility] Associate Professional Member Role: Lifetime Consulting Provider Address: Address: [address] [place], [place] [address] [place], [place] [address] Name: Prieto Tobin RN Position: S RN Member Role: Primary Care Nurse Name: Ashleigh Reynoso RN Position: S RN Member Role: Primary Care Nurse Name: Jonn Hui DO Position: [facility] Renal MD Member Role: Lifetime Consulting Physician Address: Address: [address] [place] [address] [address] [facility] [place] [address]- Name: Luis Angel Stephen RN Position: S RN Member Role: Primary Care Nurse Name: Brandan Nogueira RN Position: [facility] RN Member Role: Primary Care Nurse Care Team Related Persons Name: CARLOS A BORDEN Address: home [address] [place] [address] Name: LEVI BORDEN Address: home [address] [place] [address]
--- OUTSIDE RECORDS SUMMARY | 2024-06-01 12:08 | XMS_ITS | Continuity of Care Document ---
Author Organization [facility] Shawn Lazaro lt Address [address] [place] [address]- Care Team Providers Care Aircraft Maintenance Technician Name Role Phone Aylin HICKMAN, Ben Willis Primary Care Physician Encounter [facility] Date(s): 05/15/21 - 06/14/21 [facility] Adult [address] [place] [address]- Allergies, Adverse Reactions, Alerts Substance Reaction Severity [...] Refills, Maintenance, 06/26/20 12:19:00 EST, [facility], 175, cm, 06/25/20 16:11:00 EST, Height, 83.6, [...] 02/28/21 10:13:00 EDT, Route to Pharmacy Electronically, [facility]/pharmacy #[id number], 175.3, cm, 01/21/21 12:58:00 EDT, Height, 83.6, kg, 04/23/20 17:46:00 EDT, Start Date: 02/28/21 Status: Ordered Daily Simone oral tablet 1 tablet, By Mouth, Daily, # 30 tablet, 5 Refills, Maintenance, 09/19/20 8:25:00 EDT, Tablet, [facility]/pharmacy #[id number], [...] 01/18/21 14:44:00 EDT, Route to Pharmacy Electronically, [facility], 175, cm, 12/24/20 11:20:00 EDT, Height, 83.6, [...] 01/21/19 11:25:36 EDT, Route to Pharmacy Electronically, [id number], [facility]/pharmacy #[id number] Start Date: [...] A DAY, # 270 tablet, 0 Refills, [facility], 175.2, cm, 06/07/21 9:51:00 EST, Height, 88.3, kg, 03/12/21 9:16:00 EDT, Dry Weight Start Date: 06/14/21 Status: Ordered nicotine 2 mg oral transmucosal lozenge See Instructions, USE 1 LOZENGE UP TO EVERY 1 HOUR NEEDED FOR 10 DAYS, # 162 lozenge, 1 Refills,[facility], 10, USE 1 LOZENGE UP TO EVERY [...] # 15 Unknown, 2 Refills, [facility], 175.2, cm, 05/27/21 11:26:00 EST, Height, 88.3, kg, 03/12/21 9:16:00 EDT, Dry Weight Start Date: 06/04/21 Status: Ordered Pen Dow, 31 G x 5 mm BD Ultra [...] tablet, 1 Refills, Maintenance, 01/08/21 14:43:00 EDT, [facility]/pharmacy#0843, 175, cm, 12/24/20 11:20:00 [...] each, 1 Refills, Maintenance, 12/10/20 11:14:00 EDT, [facility]/pharmacy #[id number], 175, cm, 09/21/20 11:29:00 [...] 524 weeks therapy with sofosbuvir/weight based ribavirin 64912 inferolateral stent bare metal circumflex 7DR Marissa [...]
--- OUTSIDE RECORDS SUMMARY | 2024-06-01 12:08 | XMS_ITS | Continuity of Care Document ---
Author Organization [facility] Shawn Lazaro lt Address [address] [place] [address]- Care Team Providers Care Devil Dog Name Role Phone Ben Viera MD Primary Care Physician En[place] [facility] Date(s): 10/23/21 - 10/30/21 [facility] [address] [place] [address]- Encounter Diagnosis Dental caries(Discharge Diagnosis) - 10/23/21 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) - 10/23/21 Insulin long-term use(Discharge Diagnosis) - 10/23/21 ASHD; [place] 2012/stent circumflex vessel cath;abdelrahman 2019(Discharge Diagnosis) - 10/23/21 Chronic renal failure, stage 4 (severe)(Discharge Diagnosis) - 10/23/21 Hypertension(Discharge Diagnosis) - 10/23/21 Attending Physician: Ben Viera MD Allergies, Adverse [...] 5 Refills, Maintenance, 05/15/21 13:02:00 EST, Capsule, [facility]/pharmacy #[id number], 175.2, cm, 03/18/21 10:48:00 EDT, Height, 88.3, kg, 03/12/21 9:16:00 EDT, Dry Weight Start Date: 05/15/21 Status: Ordered cloNIDine 0.2 mg oral tablet 0.2 mg, 1, tablet, By Mouth, 2 times a day, # 60 tablet, Refills 5, Tot. Refills 5, Maintenance, 06/24/21 12:51:00 EST, Route to Pharmacy Electronically, [facility]/pharmacy #[id number], 175.2, cm, 06/07/21 9:51:00 EST, Height, 88.3, kg, 03/12/21 9:16:00 EDT, Dry... Start Date: 06/24/21 Status: Ordered Daily Simone oral tablet 1 tablet, By Mouth, Daily, # 30 tablet, 5 Refills, Maintenance, 07/29/21 13:53:00 EST, Tablet, [facility]/pharmacy #[id number], 1 tablet By Mouth Daily,x30 days, 175.2, cm, 06/07/21 9:51:00 EST, Height, 88.3, kg,03/12/21 9:16:00 EDT, Dry Weight Start Date: 07/29/21 Stop Date: 01/25/22 Status: Ordered docusate sodium 100 mg oral capsule 1 capsule, By Mouth, 2 times a day, PRN NEEDED FOR CONSTIPATION, # 60 capsule, 5 Refills, Maintenance, 06/05/21 15:57:00 EST, [facility]/pharmacy #[id number], 175.2, cm, 05/27/21 11:26:00 EST, Height, 88.3, kg, 03/12/21 9:16:00 EDT, Dry Weight Start Date: 06/05/21 Status: Ordered folic acid 1 mg oral tablet 1, tablet, By Mouth, Daily, # 30 tablet, Refills 5, Tot. Refills 5, Maintenance, 07/25/21 15:59:00 EST, Route to Pharmacy Electronically, [facility]/pharmacy #[id number], 175.2, cm, 06/07/21 9:51:00 EST, [...] 5 Refills, Maintenance, 06/05/21 15:57:00 EST, [facility]/pharmacy #[id number], 175.2, cm, 05/27/21 11:26:00 EST, Height, 88.3, kg, 03/12/21 9:16:00 EDT, Dry Weight Start Date: 06/05/21 Status: Ordered LaMICtal 100 mg oral tablet 100 mg, 1, tablet, By Mouth, 2 times a day, # 60 tablet, Refills 3, Tot. Refills 3, Maintenance, 01/21/19 11:25:36 EDT, Route to Pharmacy Electronically, [id number], [facility]/pharmacy #[id number] Start Date: [...] Refills, Maintenance, 09/17/21 10:50:00 EDT, Tablet, [facility]/pharmacy #[id number], Partial fill upon patient request if the prescription is for a schedule II opioid drug., 175.2, cm, 07/31/21 11:20:00 EST, Heigh... Start Date: 09/17/21 Status: Ordered Metoprolol Tartrate 50 mg oral tablet See Instructions, TAKE 1 + 1/2 TABLETS BY MOUTH 2 TIMES A DAY, # 270 tablet, 0 Refills, 06/24/21 10:42:00 EST, [facility]/pharmacy #[id number], 175.2, cm, 06/07/21 9:51:00 EST, Height, 88.3, kg, 03/12/21 9:16:00 EDT, Dry Weight Start Date: 06/24/21 Status: Ordered nicotine 2 mg oral transmucosal lozenge See Instructions, USE 1 LOZENGE UP TO EVERY 1 HOUR NEEDED FOR 10 DAYS, # 162 lozenge, 0 Refills,Maintenance, 10/28/21 14:48:00 EDT, [facility]/pharmacy #[id number], 16, USE 1 LOZENGE UP TO EVERY 1 HOUR NEEDED FOR 10 DAYS, 175.2, cm, 10/23/21 12:47:00 EDT, H... Start Date: 10/28/21 Status: Ordered nitroglycerin 0.4 mg sublingual tablet See Instructions, DISSOLVE 1 UNDER TONGUE EVERY 5 MINUTES NEEDED FOR CHEST PAIN INSTR:CALL MD AFTER TAKING 3 TABS IN TOTAL IN A DAY, # 100 tablet, 0 Refills, Maintenance, 08/23/21 8:07:00 EST, [facility]/pharmacy #[id number], 175.2, cm, 07/31/21 11:20:00 EST, H... Start Date: 08/23/21 Status: Ordered NovoLOG FlexPen 100 units/mL injectable solution See Instructions, INJECT 0-18 UNITS SUBCUTANEOUSLY WITH MEALS FOR SLIDING SCALES, # 15 Unknown, 2 Refills, [facility], 175.2, cm, 05/27/21 11:26:00 EST, Height, 88.3, kg, 03/12/21 9:16:00 EDT, Dry Weight Start Date: 06/04/21 Status: Ordered Pen Souris, 31 G x 5 mm BD Ultra [...] Refills, Maintenance, 06/10/21 12:32:00 EST, Capsule, [facility]/pharmacy #[id number], 175.2, cm, 06/07/21 9:51:00 EST, Height, 88.3, kg, 03/12/21 9:16:00 EDT, Dry Weight Start Date: 06/10/21 Status: Ordered pregabalin 75 mg oral capsule 1 capsule = 75 mg, By Mouth, 2 times a day, # 60 capsule, 5 Refills, Maintenance, 06/07/21 13:14:00EST, Capsule, [facility]/pharmacy #[id number], 175.2, cm, 06/07/21 9:51:00 EST, Height, 88.3, kg, 03/12/21 9:16:00 EDT, Dry Weight Start Date: 06/07/21 Status: Ordered rosuvastatin 20 mg oral tablet 1 tablet, By Mouth, Daily, # 90 tablet, 1 Refills, Maintenance, 08/15/21 14:24:00 EST, [facility]/pharmacy#0843, 175.2, cm, 07/31/21 11:20:00 EST, Height, [...] # 9 Unknown, 1 Refills, [facility], 175.2, cm, 07/31/21 11:20:00 EST, Height, 88.3, [...] failure, stage 4 (severe)(Confirmed) Active ASHD; [place] 2012/stent circumfl ex vessel cath;abdelrahman 2018(Confirmed) 3 [...] Medicare annual wellness vis it, subsequent(Confirmed) Active Tubular adenoma of colon col onoscopy [...] 524 weeks therapy with sofosbuvir/weight based ribavirin 52530 inferolateral stent bare metal circumflex 7DR Molddoverno sx;Dr Schwartz 8hyperplatic polyp repeat screening in 2025 9repeat colonoscopy in 5 years Diagnosis Diagnosis Type Effective Dates Health Status Clinical Service Informant Dental caries Discharge Diagnosis 10/23/21 Type 2 diabetes mellitus with diabetic nephropathy Discharge Diagnosis 10/23/21 Insulin long-term use Discharge Diagnosis 10/23/21 ASHD; [place] 2012/stent circumflex vessel cath;abdelrahman 2018 Discharge Diagnosis 10/23/21 Chronic renal failure, stage 4 (severe) Discharge Diagnosis 10/23/21 Hypertension Discharge Diagnosis 10/23/21 Vital Signs Most recent to oldest [Reference Range]: 1 Height 175.2 cm (10/23/21 12:47 PM) Social History Social History Type Response Smoking Status Former smoker, quit more than 30 days ago; Interested in cessation: No; Other: quit; Tobacco use times per day: prio 1/2-1 ppd; Total pack years: 38; Started at age: 12; Stopped at age: 63; entered on: 07/20/20 Sex
--- OUTSIDE RECORDS SUMMARY | 2024-06-01 12:08 | XMS_ITS | Continuity of Care Document ---
Author Organization [facility] Shawn Lazaro Address [address] [place] [address]- Care Team Providers Care Motorcycle Designer Name Role Phone Ben Viera MD Primary Care Physician [phone] Encounter [facility] Date(s): 12/24/20 - 12/31/20 [facility] Adult [address] [place] [address]- Encounter Diagnosis 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) - 12/12/20 Insulin long-term use(Discharge Diagnosis) - 12/12/20 Hypertension(Discharge Diagnosis) - 12/12/20 Hyperlipidemia(Discharge Diagnosis) - 12/12/20 ASHD; [place] 2012/stent circumflex vessel cath;abdelrahman 2019(Discharge Diagnosis) - 12/12/20 Multiple lung nodules LDCT 2019(Discharge Diagnosis) - 12/24/20 Attending Physician: Ben Viera MD Allergies, Adverse [...] 10:48:07 EST, Aerosol, Route to Pharmacy Electronically, [id number], [facility]/pharmacy #[id number], 180, cm, 06/17/19 10:36:11 EST, Height Start Date: 06/17/19 Status: Ordered aspirin 81 mg oral delayed release tablet 1 tablet, By Mouth, Daily, # 30 tablet, 11 Refills, Maintenance, 06/26/20 12:19:00 EST, [facility], 175, cm, 06/25/20 16:11:00 EST, Height, 83.6, [...] 5 Refills, Maintenance, 11/02/20 10:48:00 EDT, Capsule, [facility]/pharmacy #[id number], 175, cm, 09/21/20 11:29:00 EDT, Height, 83.6, kg, 04/23/20 17:46:00 EDT, Dry Weight Start Date: 11/02/20 Status: Ordered cloNIDine 0.2 mg oral tablet 0.2 mg, 1, tablet, By Mouth, 2 times a day, # 60 tablet, Refills 5, Tot. Refills 5, Maintenance, 09/09/20 19:43:00 EST, Route to Pharmacy Electronically, [facility]/pharmacy #[id number], 175, cm, 07/20/20 10:29:00 [...] 3 Refills, Maintenance, 09/21/20 11:35:00 EDT, Tablet, [facility]/pharmacy #[id number], Partial fill upon patient request if the prescription is for a schedule II opioid drug., 1 tablet By Mouth Daily, 175, cm, 09/21/20 11:2... Start Date: 09/21/20 Status: Ordered Daily Simone oral tablet 1 tablet, By Mouth, Daily, # 30 tablet, 5 Refills, Maintenance, 09/19/20 8:25:00 EDT, Tablet, [facility]/pharmacy [...] 01/21/19 11:25:36 EDT, Route to Pharmacy Electronically, [id number], [facility]/pharmacy #[id number] Start [...] tablet, 0 Refills, Maintenance, 11/16/20 11:46:00 EDT, [facility] ST[facility] 04324, 175, cm, 09/21/20 11:29:00 EDT, Height, 83.6, kg, 04/23/20 17:46:00 EDT, Dry Weight Start Date: 11/16/20 Status: Ordered nicotine 2 mg oral transmucosal lozenge See Instructions, suck, up to q1 hrs 10 daily, # 162 lozenge, 1 Refills, Maintenance, 12/12/20 14:39:00 EDT, [facility]/pharmacy #0843, [...] lozenge, 3 Refills, Maintenance, 09/25/20 14:39:00 EDT, [facility]/pharmacy #0843, 1 [...] 9:13:... Start Date: 02/01/20 Status: Ordered Pen Joppa, 31 G x 5 mm BD Ultra [...] EST, Tablet, this was previously sent to [facility] pharmacy Start Date: 05/17/19 Stop Date: 05/11/20 Status: Ordered Tresiba FlexTouch 200 units/mL subcutaneous solution = 10 units, Subcutaneous Infusion, Daily, at bedtime, increase 2 units every 3 days until FBS < 120 per PCP max dose 60 units qday, # 3 each, 1 Refills, Maintenance, 12/10/20 11:14:00 EDT, [facility], 175, cm, 09/21/20 11:29:00 EDT, Height, 83... [...] Active Glomerulonephritis,mesangial proliferative/fibrillary(Confirmed) 1, 2 Active ASHD; [place] 2012/stent circumfl ex vessel cath;abdelrahman 2018(Confirmed) 3 Active Epididymal cyst rt(Confirmed) 04/18/19 Active Low serum vitamin D(Confirmed) Active Dizzinesses(Confirmed) Active Insulin long-term use(Confirmed) Active Dysphagia(Confirmed) Active Ex-smoker quit 2018/[facility] t enrolled(Confirmed) Active Fibrillary glomerulonephritis(Confirmed) 4 [...] 524 weeks therapy with sofosbuvir/weight based ribavirin 36391 inferolateral stent bare metal circumflex 7DR Molddoverno sx;Dr Schwartz 8repeat colonoscopy in 5 years Diagnosis Diagnosis Type Effective Dates Health Status Clinical Service Informant Type 2 diabetes mellitus with diabetic nephropathy Discharge Diagnosis 12/12/20 Insulin long-term use Discharge Diagnosis 12/12/20 Hypertension Discharge Diagnosis 12/12/20 Hyperlipidemia Discharge Diagnosis 12/12/20 ASHD; [place] 2012/stent circumflex vessel cath;abdelrahman 2018 Discharge Diagnosis 12/12/20 Multiple lung nodules LDCT 2019 Discharge Diagnosis 12/24/20 Vital Signs Most recent to oldest [Reference Range]: 1 Height 175 cm (12/24/20 11:20 AM) Weight 90.1 kg (12/24/20 11:20 AM) Oxygen Saturation [94-100 %] 98 % (12/24/20 11:20 AM) Pulse Rate [55-90 bpm] 55 bpm (12/24/20 11:20 AM) Body Mass Index [18.5-24.99] 29.42 *H* (12/24/20 11:20 AM) Blood Pressure [90-138/55-84 mm Hg] 110/ 70mm Hg (12/24/20 11:20 AM) Respiratory Rate [16-30 br/min] 16 br/mi n (12/24/20 11:20 AM) Temperature [96.8-100.4 DegF] 98.0 DegF (12/24/20 11:20 AM) Mode of Delivery (Oxygen) Room air (12/24/20 11:20 AM) Blood pressure sites Arm, left (12/24/20 11:20 AM) Temperature Route Oral (12/24/20 11:20 AM) Weight Obtained Via Standing scale (12/24/20 11:20 AM) Social History Social History Type Response Smoking Status Former smoker, quit more than 30 days ago; Interested in cessation: No; Other: quit; Tobacco use times per day: prio 1/2-1 ppd; Total pack years: 38; Started at age: 12; Stopped at age: 63; entered on: 07/20/20 Sex
--- OUTSIDE RECORDS SUMMARY | 2024-06-01 12:08 | XMS_ITS | Continuity of Care Document ---
Author Organization [facility] Shawn Lazaro lt Address [address] [place] [address]- Care Team Providers Care Baling Machine Operator Name Role Phone Carrie Kelly RIVERA Primary Care Physician [place] [facility] [place]): 01/25/24 - 02/24/24 [facility] [place] Adult [address] [place] [address]- Allergies, Adverse Reactions, Alerts Substance Reaction Severity Status Bee Stings Active Immunizations Given and Recorded Vaccine Date Status Refusal Reason SARS-CoV-2(COVID-19)mRNA-LNP vac([id number]) 12/31/23 Recorded SARS-CoV-2(COVID-19)mRNA-LNP vac([id number]) 05/08/23 Recorded tetanus/diphtheria/pertussis, acel(Tdap) 10/15/23 Recorded tetanus/diphtheria/pertussis, [...] 02/03/23 Recorded zoster vaccine, inactivated 08/09/19 Recorded [id number] 12y+ bivalent booster vax 05/17/22 Recorded SARS-CoV-2 [...] adult vaccine 4 12/10/10 Given 1Result Comment: [id number] 2Result Comment: [id number] 3Admin Note: pt waited 10 mins post [...] day prn cough (Max 600 mg in i37-rulb period), # 30 capsule, 0 Refills, Maintenance, [...] 0 Refills, Maintenance, 01/11/24 14:46:00 EDT, Tablet, [facility]/pharmacy #[id number], Partial fill upon patient request if the prescription is for a schedule II opioid drug., 168, cm, 01/11/24 14:42:00 EDT, Height,... Start Date: 01/11/24 Status: Ordered DilTIAZem (Eqv-Cardizem CD) 180 mg/24 hours oral capsule, extended release 1 capsule, By Mouth, Daily, # 90 capsule, 0 Refills, Maintenance, 02/12/24 11:53:00 EDT, [facility], 168, cm, 02/03/24 10:41:00 EDT, Height Start [...] 02/17/24 7:23:00 EDT, Route to Pharmacy Electronically, [facility]/pharmacy #[id number], 168, cm, 02/15/24 13:43:00 EDT, Height [...] 01/21/19 11:25:36 EDT, Route to Pharmacy Electronically, [id number], [facility]/pharmacy #[id number] Start Date: 01/21/19 Stop Date: 05/21/19 Status: Ordered lisinopril 40 mg oral tablet 1 tablet, By Mouth, Daily, # 90 tablet, 1 Refills, Maintenance, 01/26/24 9:20:00 EDT, [facility] STORE [facility], 168, cm, 01/11/24 14:42:00 EDT, Height, 93, kg, 01/28/22 14:55:00 EDT, Dry Weight Start Date: 01/26/24 Status: Ordered methylphenidate 5 mg oral tablet TAKE 1 TABLET BY MOUTH THREE TIMES A DAY Start Date: 01/11/24 Status: Ordered Metoprolol Tartrate 50 mg oral tablet 1.5 tablet, By Mouth, 2 times a day, # 270 tablet, 1 Refills, Maintenance, 09/16/23 14:32:00 EDT, [facility]/pharmacy #[id number], 168, cm, 07/23/23 15:05:00 EST, Height, 93, kg, 01/28/22 14:55:00 EDT, Dry Weight Start Date: 09/16/23 Status: Ordered nitroglycerin 0.4 mg sublingual tablet See Instructions, DISSOLVE 1 UNDER TONGUE EVERY 5 MINUTES NEEDED FOR CHEST PAIN CALL MD AFTER TAKING 3 TABS IN TOTAL IN A DAY, # 100 tablet, 0 Refills, Maintenance, 10/03/22 15:53:00 EDT, [facility]/pharmacy #0843, 175, cm, 09/17/22 13:59:00 EDT, Height,... Start Date: 10/03/22 Status: Ordered NovoLOG FlexPen 100 units/mL injectable solution See Instructions, INJECT 0-18 UNITS SUBCUTANEOUSLY WITH MEALS FOR SLIDING SCALES, # 15 Unknown, 2 Refills, 01/12/24 14:36:00 EDT, [facility]/pharmacy #[id number], MAX DAILY DOSE 54 UNITS, 168, [...] mL, 0 Refills, Maintenance, 02/02/24 15:28:00 EDT, [place], [facility]/pharmacy #0843, Partial fill upon patient... Start Date: 02/02/24 Status: Ordered Pen [place], 31 G x 5 mm BD [...] Refills, Maintenance, 02/04/24 16:39:00 EDT, [facility], 168, cm, 02/03/24 10:41:00 EDT, Height Start [...] 524 weeks therapy with sofosbuvir/weight based ribavirin 55093 inferolateral stent bare metal circumflex 7DR Molddoverno [...] Role: Lifetime Consulting Physician Address: Address: [address] [place] [address] [address] [facility] [place] [address]- Name: Kelly Butler NP Position: [facility] PCO Associate Professional Member Role: PCP Address: Address: [address] [place] [address]- Name: Kristin Mckenzie Position: S Outreach Member Role: Lifetime Consulting Physician Name: Prieto Tobin RN Position: [facility] RN Member Role: Primary Care Nurse Name: Jonn Hui DO Position: [facility] Renal MD Member Role: Lifetime Consulting Physician Address: Address: [address] [place], [place] [address] [place] [address]- Name: Zafar CALVO, Luis Angel Rojas Position: [facility] RN Member Role: Primary Care Nurse Care Team Related Persons Name: CARLOS A BORDEN Address: home [address] [place] [address] Name: LEVI BORDEN Address: home [address] [place] [address]
--- OUTSIDE RECORDS SUMMARY | 2024-06-01 12:08 | XMS_ITS | Continuity of Care Document ---
Author Organization [facility] Shawn Lazaro lt Address [address] [place] [address]- Care Team Providers Care Flavor Maker Name Role Phone Ben Viera MD Primary Care Physician [place] [facility] [place]20 [facility] Nando Escobar Adult [address] [place] [address]- [facility] Attending Physician: Ben Viera MD Allergies, [...] 10:48:07 EST, Aerosol, Route to Pharmacy Electronically, [id number], [facility]/pharmacy #0843, 180, cm, 06/17/19 10:36:11 EST, Height Start Date: 06/17/19 Status: Ordered aspirin 81 mg oral tablet 1 tablet = 81 mg, By Mouth, Daily, # 30 tablet, 11 Refills, Maintenance, 09/03/19 14:22:00 EST, Tablet, [facility]/pharmacy #0843, 180, cm, 08/01/19 10:43:00 [...] Refills, Maintenance, 01/02/20 15:47:00 EDT, CR Capsule, [facility]/pharmacy #0843, 172, cm, 12/14/19 8:02:00 EDT, Height, 97.8, kg, 08/11/19 5:24:00 EST, Dry Weight Start Date: 01/02/20 Stop Date: 12/27/20 Status: Ordered cholecalciferol 2000 intl units oral capsule 1 capsule = 2,000 International_Units, By Mouth, Daily, # 30 capsule, 5 Refills, Maintenance, 11/02/19 10:15:00 EDT, Capsule, [facility]/pharmacy #0843, 172, cm, 09/05/19 16:17:00 EST, Height, 97.8, kg, 08/11/19 5:24:00 EST, Dry Weight Start Date: 11/02/19 Status: Ordered cloNIDine 0.2 mg oral tablet 0.2 mg, 1, tablet, By Mouth, 2 times a day, # 60 tablet, Refills 2, Tot. Refills 2, Maintenance, 01/02/20 15:44:00 EDT, Route to Pharmacy Electronically, [facility]/pharmacy #0843, 172, cm, 12/14/19 8:02:00EDT, Height, 97.8, kg, 08/11/19 5:24:00 EST, Dry We... Start Date: 01/02/20 Status: Ordered Colace sodium 100 mg oral capsule 100 mg, 1, capsule, By Mouth, 2 times a day, PRN, # 60 capsule, Refills 5, Tot. Refills 5, Maintenance, for constipation, 04/25/19 13:50:52 EDT, Route to Pharmacy Electronically, [id number], [facility]/pharmacy #[id number] Start Date: 04/25/19 Status: Ordered Crestor 20 mg oral tablet 1 tablet = 20 mg, By Mouth, Daily, # 90 tablet, 3 Refills, Maintenance, 01/02/20 15:46:00 EDT, Tablet, [facility]/pharmacy #0843, 172, cm, 12/14/19 8:02:00 EDT, Height, 97.8, kg, 08/11/19 5:24:00 EST, Dry Weight Start Date: 01/02/20 Status: Ordered Daily Simone oral tablet 1 tablet, By Mouth, Daily, # 30 tablet, 5 Refills, Maintenance, 09/21/19 10:41:00 EDT, Tablet, [facility]/pharmacy #0843, 1 tablet By Mouth Daily,x30 days, 172, cm, 09/05/19 16:17:00 EST, Height, 97.8, kg, 08/11/19 5:24:00 EST, Dry Weight Start Date: 09/21/19 Stop Date: 03/19/20 Status: Ordered folic acid 1 mg oral tablet 1 mg, 1, tablet, By Mouth, Daily, # 30 tablet, Refills 5, Tot. Refills 5, Maintenance, 12/29/19 11:13:00 EDT, Route to Pharmacy Electronically, [facility]/pharmacy #[id number], 172, cm, 12/14/19 8:02:00 [...] 01/21/19 11:25:36 EDT, Route to Pharmacy Electronically, [id number], [facility]/pharmacy #0843 Start Date: [...] 01/02/20 15:45:00 EDT, Route to Pharmacy Electronically, [facility]/pharmacy #[id number], 172, cm, 12/14/19 8:02:00 EDT, Height, 97.8, kg, 08/11/19 5:24:00 EST, Dry Weight Start Date: 01/02/20 Status: Ordered metoprolol 50 mg oral tablet 75 mg, 1.5, tablet, By Mouth, 2 times a day, stop metoprolol 50 mg twice daily, # 180 tablet, Refills 2, Tot. Refills 2, Maintenance, 01/02/20 15:45:00 EDT, Route to Pharmacy Electronically, [facility]/pharmacy #0843, 172, cm, 12/14/19 8:02:00 EDT, Height, 9... Start Date: 01/02/20 Status: Ordered nicotine 4 mg oral transmucosal lozenge See Instructions, suck, up to q1 hrs 10 daily, # 144 lozenge, 1 Refills, Maintenance, 12/29/19 16:13:00 EDT, [facility]/pharmacy #0843, suck, up to q1 hrs 10 daily, 172, cm, 12/14/19 8:02:00 EDT, Height, 97.8, kg, 08/11/19 5:24:00 EST, Dry Weight Start Date: 12/29/19 Status: Ordered nicotine 4 mg oral transmucosal lozenge 1 lozenge = 4 mg, By Mouth, Every hour, # 132 lozenge, 1 Refills, Maintenance, 11/29/19 8:13:00 EDT, [facility]/pharmacy #0843, 1 lozenge By Mouth [...] PAIN CALL 911 IF PAIN NOT RELIEVED, [facility]/pharmacy #0843 Start Date: 02/17/19 Status: Ordered NovoLOG FlexPen 100 units/mL subcutaneous solution See Instructions, # 15 Unknown, Refills 5 Tot. Refills 5, INJECT 0-18 UNITS SUBCUTANEOUSLY WITH MEALS FOR SLIDING SCALES, [id number] Start Date: 01/04/19 Status: Ordered Pen [place], 31 G x 5 mm BD Ultra [...] 0 Refills, Maintenance, 10/05/19 11:07:00 EDT, Solution, [facility]/pharmacy #0843, 172, cm, [...] EST, Tablet, this was previously sent to [facility] pharmacy Start Date: 05/17/19 Stop Date: [...] impairment, st age 3 (moderate)(Confirmed) Active ASHD; [place] 2012/stent circumfl ex vessel [...] mild to moderate. 3MI 2012 circumflex stent 2012/[place] 4secondary to hep C 524 weeks therapy with sofosbuvir/weight based ribavirin 96234 inferolateral stent bare metal circumflex 7DR Marissa [...]
--- OUTSIDE RECORDS SUMMARY | 2024-06-01 12:08 | XMS_ITS | Continuity of Care Document ---
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 Phone Aylin HICKMAN, Ben Willis Primary Care Physician Encounter [facility] Date(s): 05/17/21 - 06/16/21 [facility] Shawn Adult [address] [place] [address]- Allergies, Adverse Reactions, Alerts Substance Reaction Severity [...] Refills, Maintenance, 06/26/20 12:19:00 EST, [facility], 175, cm, 06/25/20 16:11:00 EST, Height, 83.6, [...] Maintenance, 01/23/21 11:08:00 EDT, CR Capsule, [facility]/pharmacy #0843, 175.3, cm, 01/21/21 12:58:00 EDT, Height, 83.6, kg, 04/23/20 17:46:00EDT, Dry Weight Start Date: 01/23/21 Stop Date: 01/18/22 Status: Ordered cholecalciferol 2000 intl units oral capsule 1 capsule = 2,000 International_Units, By Mouth, Daily, # 30 capsule, 5 Refills, Maintenance, 05/15/21 13:02:00 EST, Capsule, [facility]/pharmacy #0843, 175.2, cm, 03/18/21 10:48:00 EDT, Height, 88.3, kg, 03/12/21 9:16:00 EDT, Dry Weight Start Date: 05/15/21 Status: Ordered cloNIDine 0.2 mg oral tablet 0.2 mg, 1, tablet, By Mouth, 2 times a day, # 60 tablet, Refills 5, Tot. Refills 5, Maintenance, 02/28/21 10:13:00 EDT, Route to Pharmacy Electronically, [facility]/pharmacy #0843, 175.3, cm, 01/21/21 12:58:00 EDT, Height, 83.6, kg, 04/23/20 17:46:00 EDT, Start Date: 02/28/21 Status: Ordered Daily Simone oral tablet 1 tablet, By Mouth, Daily, # 30 tablet, 5 Refills, Maintenance, 09/19/20 8:25:00 EDT, Tablet, [facility]/pharmacy #0843, 1 tablet By Mouth Daily,x30 days, 175, cm, 07/20/20 10:29:00 EST, Height, 83.6, kg, 04/23/20 17:46:00 EDT, Dry Weight Start Date: 09/19/20 Stop Date: 03/18/21 Status: Ordered docusate sodium 100 mg oral capsule 1 capsule, By Mouth, 2 times a day, PRN NEEDED FOR CONSTIPATION, # 60 capsule, 5 Refills, Maintenance, 06/05/21 15:57:00 EST, [facility]/pharmacy #0843, 175.2, cm, 05/27/21 11:26:00 EST, Height, 88.3, kg, 03/12/21 9:16:00 EDT, Dry Weight Start Date: 06/05/21 Status: Ordered folic acid 1 mg oral tablet 1, tablet, By Mouth, Daily, # 30 tablet, Refills 5, Tot. Refills 0, Maintenance, 01/18/21 14:44:00 EDT, Route to Pharmacy Electronically, [facility]ORE [facility], 175, cm, 12/24/20 11:20:00 EDT, Height, 83.6, [...] Refills, Maintenance, 06/05/21 15:57:00 EST, [facility]/pharmacy #0843, 175.2, cm, 05/27/21 11:26:00 EST, Height, 88.3, kg, 03/12/21 9:16:00 EDT, Dry Weight Start Date: 06/05/21 Status: Ordered LaMICtal 100 mg oral tablet 100 mg, 1, tablet, By Mouth, 2 times a day, # 60 tablet, Refills 3, Tot. Refills 3, Maintenance, 01/21/19 11:25:36 EDT, Route to Pharmacy Electronically, [id number], [facility]/pharmacy #0843 [...] A DAY, # 270 tablet, 0 Refills, [facility], 175.2, cm, 06/07/21 9:51:00 EST, Height, 88.3, kg, 03/12/21 9:16:00 EDT, Dry Weight Start Date: 06/14/21 Status: Ordered nicotine 2 mg oral transmucosal lozenge See Instructions, USE 1 LOZENGE UP TO EVERY 1 HOUR NEEDED FOR 10 DAYS, # 162 lozenge, 1 Refills,[facility], 10, USE 1 LOZENGE UP TO EVERY [...] # 15 Unknown, 2 Refills, [facility], 175.2, cm, 05/27/21 11:26:00 EST, Height, 88.3, kg, 03/12/21 9:16:00 EDT, Dry Weight Start Date: 06/04/21 Status: Ordered Pen [place], 31 G x 5 mm BD Ultra [...] Refills, Maintenance, 06/10/21 12:32:00 EST, Capsule, [facility]/pharmacy #0843, 175.2, cm, 06/07/21 9:51:00 EST, Height, [...] 1 Refills, Maintenance, 01/08/21 14:43:00 EDT, [facility]/pharmacy#0843, 175, cm, 12/24/20 11:20:00 EDT, Height, 83.6, [...] 1 Refills, Maintenance, 12/10/20 11:14:00 EDT, [facility]/pharmacy #0843, 175, cm, 09/21/20 11:29:00 EDT, Height, [...] Active Glomerulonephritis,mesangial proliferative/fibrillary(Confirmed) 1, 2 Active ASHD; [place] 2012/stent circumfl ex vessel [...] 524 weeks therapy with sofosbuvir/weight based ribavirin 98794 inferolateral stent bare metal circumflex 7DR Marissa [...]
--- OUTSIDE RECORDS SUMMARY | 2024-06-01 12:08 | XMS_ITS | Continuity of Care Document ---
Author Organization [facility] Shawn Lazaro lt Address [address] [place] [address]- Care Team Providers Care Primary Therapist Name Role Phone Carrie CIVIL PREPAREDNESS COORDINATORKelly Primary Care Physician Encounter [facility] Date(s): 01/27/24 - 02/26/24 [facility] Adult [address] [place] [address]- Allergies, Adverse Reactions, Alerts Substance Reaction Severity Status Bee Stings Active Immunizations Given and Recorded Vaccine Date Status Refusal Reason SARS-CoV-2(COVID-19)mRNA-LNP vac([id number]) 12/31/23 Recorded SARS-CoV-2(COVID-19)mRNA-LNP vac([id number]) 05/08/23 Recorded tetanus/diphtheria/pertussis, acel(Tdap) 10/15/23 Recorded tetanus/diphtheria/pertussis, [...] 02/03/23 Recorded zoster vaccine, inactivated 08/09/19 Recorded [id number] 12y+ bivalent booster vax 05/17/22 Recorded SARS-CoV-2 [...] adult vaccine 4 12/10/10 Given 1Result Comment: [id number] 2Result Comment: [id number] 3Admin Note: pt waited 10 mins post [...] 0 Refills, Maintenance, 02/02/24 15:25:00 EDT, [facility], with dose counter. any albuterol inhaler covered [...] day prn cough (Max 600 mg in q55-gkmz period), # 30 capsule, 0 Refills, Maintenance, [...] 0 Refills, Maintenance, 01/11/24 14:46:00 EDT, Tablet, [facility]/pharmacy #0843, Partial fill upon patient request if the prescription is for a schedule II opioid drug., 168, cm, 01/11/24 14:42:00 EDT, Height,... Start Date: 01/11/24 Status: Ordered DilTIAZem (Eqv-Cardizem CD) 180 mg/24 hours oral capsule, extended release 1 capsule, By Mouth, Daily, # 90 capsule, 0 Refills, Maintenance, 02/12/24 11:53:00 EDT, [facility], 168, cm, 02/03/24 10:41:00 EDT, Height Start [...] 02/17/24 7:23:00 EDT, Route to Pharmacy Electronically, [facility]/pharmacy #[id number], 168, cm, 02/15/24 [...] 01/21/19 11:25:36 EDT, Route to Pharmacy Electronically, [id number], [facility]/pharmacy #0843 Start Date: 01/21/19 Stop Date: 05/21/19 Status: Ordered lamotrigine 100 mg oral tablet TAKE 1 TABLET BY MOUTH TWICE A DAY Start Date: 02/26/24 Status: Ordered lisinopril 40 mg oral tablet 1 tablet, By Mouth, Daily, # 90 tablet, 1 Refills, Maintenance, 01/26/24 9:20:00 EDT, [facility] STORE [facility], 168, cm, 01/11/24 14:42:00 EDT, Height, 93, kg, 01/28/22 14:55:00 EDT, Dry Weight Start Date: 01/26/24 Status: Ordered methylphenidate 5 mg oral tablet TAKE 1 TABLET BY MOUTH THREE TIMES A DAY Start Date: 01/11/24 Status: Ordered Metoprolol Tartrate 50 mg oral tablet 1.5 tablet, By Mouth, 2 times a day, # 270 tablet, 1 Refills, Maintenance, 09/16/23 14:32:00 EDT, [facility]/pharmacy #0843, 168, cm, 07/23/23 [...] mL, 0 Refills, Maintenance, 02/02/24 15:28:00 EDT, [facility], [facility], Partial fill upon patient... Start Date: 02/02/24 Status: Ordered Pen [place], 31 G x 5 mm BD Ultra [...] Refills, Maintenance, 02/04/24 16:39:00 EDT, [facility], 168, cm, 02/03/24 10:41:00 EDT, Height Start [...] 4, GFR 15-29 ml/min Confirmed Active ASHD; [place] 2012/stent circumflex 2012/vessel cath;abdelrahman 2018 3 Confirmed [...] 524 weeks therapy with sofosbuvir/weight based ribavirin 28510 inferolateral stent bare metal circumflex 7DR Molddoverno [...] Personnel Name: Darius HICKMAN, Jeffrey Lopez Position: [facility] Renal MD Member Role: Lifetime Consulting Physician Address: Address: [address] [facility] [place] [address]- Name: Kelly Butler NP Position: [facility] PCO Associate Professional Member Role: PCP Address: Address: [address] [place] [address]- Name: Kristin Mckenzie Position: [facility] Outreach Member Role: Lifetime Consulting Physician Name: Fortunato Sin RN Position: [facility] RN Member Role: Primary Care Nurse Name: Prieto Tobin RN Position: [facility] RN Member Role: Primary Care Nurse Name: Jonn Hui DO Position: [facility] Renal MD Member Role: Lifetime Consulting Physician Address: Address: [address] [facility] [place] [address]- Name: Zafar CALVO, Luis Angel Rojas Position: [facility] RN Member Role: Primary Care Nurse Care Team Related Persons Name: CARLOS A BORDEN Address: [address] [place] [address] Name: LEVI BORDEN Address: [address] [place] [address]
--- OUTSIDE RECORDS SUMMARY | 2024-06-01 12:08 | XMS_ITS | Continuity of Care Document ---
Author Organization [facility] Shawn Lazaro lt Address [address] [place] [address]- Care Team Providers Care Court Messenger Name Role Phone Aylin HICKMAN, Ben Willis Primary Care Physician Encounter [facility] Date(s): 10/04/21 - 11/03/21 [facility] Adult [address] [place] [address]- Allergies, Adverse Reactions, Alerts Substance Reaction Severity [...] Refills, Maintenance, 01/23/21 11:08:00 EDT, CR Capsule, [facility]/pharmacy #0843, 175.3, cm, 01/21/21 [...] 06/24/21 12:51:00 EST, Route to Pharmacy Electronically, [facility]/pharmacy #0843, 175.2, cm, 06/07/21 9:51:00 EST, Height, 88.3, kg, 03/12/21 9:16:00 EDT, Dry... Start Date: 06/24/21 Status: Ordered Daily Simone oral tablet 1 tablet, By Mouth, Daily, # 30 tablet, 5 Refills, Maintenance, 07/29/21 13:53:00 EST, Tablet, [facility]/pharmacy #0843, 1 tablet By Mouth Daily,x30 days, 175.2, cm, 06/07/21 9:51:00 EST, Height, 88.3, kg,03/12/21 9:16:00 EDT, Dry Weight Start Date: 07/29/21 Stop Date: 01/25/22 Status: Ordered docusate sodium 100 mg oral capsule 1 capsule, By Mouth, 2 times a day, PRN NEEDED FOR CONSTIPATION, # 60 capsule, 5 Refills, Maintenance, 06/05/21 15:57:00 EST, [facility]/pharmacy #0843, 175.2, cm, 05/27/21 11:26:00 EST, Height, 88.3, kg, 03/12/21 9:16:00 EDT, Dry Weight Start Date: 06/05/21 Status: Ordered folic acid 1 mg oral tablet 1, tablet, By Mouth, Daily, # 30 tablet, Refills 5, Tot. Refills 5, Maintenance, 07/25/21 15:59:00 EST, [facility] 175.2, cm, 06/07/21 9:51:00 EST, [...] 01/21/19 11:25:36 EDT, Route to Pharmacy Electronically, [id number], [facility]/pharmacy #0843 Start Date: 01/21/19 [...] 162 lozenge, 0 Refills,Maintenance, 10/28/21 14:48:00 EDT, [facility]/pharmacy #0843, 16, USE 1 [...] tablet, 0 Refills, Maintenance, 08/23/21 8:07:00 EST, [facility]/pharmacy #0843, 175.2, cm, 07/31/21 11:20:00 EST, H... Start Date: 08/23/21 Status: Ordered NovoLOG FlexPen 100 units/mL injectable solution See Instructions, INJECT 0-18 UNITS SUBCUTANEOUSLY WITH MEALS FOR SLIDING SCALES, # 15 Unknown, 2 Refills, [facility] STORE 67214, 175.2, cm, 05/27/21 11:26:00 EST, Height, 88.3, kg, 03/12/21 9:16:00 EDT, Dry Weight Start Date: 06/04/21 Status: Ordered Pen [place], 31 G x 5 mm BD Ultra [...] 5 Refills, Maintenance, 06/10/21 12:32:00 EST, Capsule, [facility]/pharmacy #0843, 175.2, cm, 06/07/21 9:51:00 EST, Height, 88.3, kg, 03/12/21 9:16:00 EDT, Dry Weight Start Date: 06/10/21 Status: Ordered pregabalin 75 mg oral capsule 1 capsule = 75 mg, By Mouth, 2 times a day, # 60 capsule, 5 Refills, Maintenance, 06/07/21 13:14:00EST, Capsule, [facility]/pharmacy #0843, 175.2, cm, 06/07/21 9:51:00 EST, Height, 88.3, kg, 03/12/21 9:16:00 EDT, Dry Weight Start Date: 06/07/21 Status: Ordered rosuvastatin 20 mg oral tablet 1 tablet, By Mouth, Daily, # 90 tablet, 1 Refills, Maintenance, 08/15/21 14:24:00 EST, [facility]/pharmacy#0843, 175.2, cm, 07/31/21 11:20:00 EST, Height, 88.3, kg, 03/12/21 9:16:00 EDT, Dry Weight Start Date: 08/15/21 Status: Ordered SEROquel 100 mg oral tablet 100 mg, 1, tablet, By Mouth, 2 times a day, # 60 tablet, Refills 2, Tot. Refills 2, Maintenance, 09/21/19 10:41:00 EDT, Route to Pharmacy Electronically, [facility]/pharmacy #0843, 172, cm, 09/05/19 [...] # 9 Unknown, 1 Refills, [facility], 175.2, cm, 07/31/21 11:20:00 EST, Height, 88.3, [...] 524 weeks therapy with sofosbuvir/weight based ribavirin 59220 inferolateral stent bare metal circumflex 7DR Molddoverno [...]
--- OUTSIDE RECORDS SUMMARY | 2024-06-01 12:08 | XMS_ITS | Continuity of Care Document ---
Author Organization [facility] Address [address] [address]- Care Team Providers Care Resource Specialist Name Role Phone Aylin HICKMAN, Ben Willis Primary Care Physician [phone] [place] [facility] [place]): [place] 06/23/20 [facility] [address] [address]- Attending Physician: AdmRadha kate Admitting Physician: AdmtrRadha [...] 10:48:07 EST, Aerosol, Route to Pharmacy Electronically, [id number], [facility]/pharmacy #[id number], 180, cm, 06/17/19 10:36:11 EST, Height Start Date: 06/17/19 Status: Ordered aspirin 81 mg oral tablet 1 tablet = 81 mg, By Mouth, Daily, # 30 tablet, 11 Refills, Maintenance, 09/03/19 14:22:00 EST, Tablet, [facility]/pharmacy #[id number], 180, cm, 08/01/19 10:43:00 EST, [...] Maintenance, 01/02/20 15:47:00 EDT, CR Capsule, [facility]/pharmacy #[id number], 172, cm, 12/14/19 8:02:00 EDT, Height, 97.8, kg, 08/11/19 5:24:00 EST, Dry Weight Start Date: 01/02/20 Stop Date: 12/27/20 Status: Ordered cholecalciferol 2000 intl units oral capsule 1 capsule = 2,000 International_Units, By Mouth, Daily, # 30 capsule, 5 Refills, Maintenance, 05/25/20 11:53:00 EST, Capsule, [facility]/pharmacy #[id number], 175, cm, 05/24/20 12:46:00 EST, Height, 83.6, kg, 04/23/20 17:46:00 EDT, Dry Weight Start Date: 05/25/20 Status: Ordered cloNIDine 0.2 mg oral tablet 0.2 mg, 1, tablet, By Mouth, 2 times a day, # 60 tablet, Refills 2, Tot. Refills 2, Maintenance, 06/22/20 10:52:00 EST, Route to Pharmacy Electronically, [facility]/pharmacy #[id number], 175, cm, 05/24/20 12:46:00 EST, Height, 83.6, kg, 04/23/20 17:46:00 EDT, Dry... Start Date: 06/22/20 Status: Ordered Colace sodium 100 mg oral capsule 100 mg, 1, capsule, By Mouth, 2 times a day, PRN, # 60 capsule, Refills 5, Tot. Refills 5, Maintenance, for constipation, 02/27/20 15:25:00 EDT, Route to Pharmacy Electronically, [facility]/pharmacy #[id number], 172, cm, 12/14/19 8:02:00 EDT, Height, 97.8, kg, 02/... Start Date: 02/27/20 Status: Ordered Crestor 20 mg oral tablet 1 tablet = 20 mg, By Mouth, Daily, # 90 tablet, 3 Refills, Maintenance, 01/02/20 15:46:00 EDT, Tablet, [facility]/pharmacy #[id number], 172, cm, 12/14/19 8:02:00 EDT, Height, 97.8, kg, 08/11/19 5:24:00 EST, Dry Weight Start Date: 01/02/20 Status: Ordered Daily Simone oral tablet 1 tablet, By Mouth, Daily, # 30 tablet, 5 Refills, Maintenance, 03/01/20 14:48:00 EDT, Tablet, [facility]/pharmacy #[id number], 1 tablet By Mouth Daily,x30 days, 172, cm, 12/14/19 8:02:00 EDT, Height, 97.8, kg, 08/11/19 5:24:00 EST, Dry Weight Start Date: 03/01/20 Stop Date: 08/28/20 Status: Ordered folic acid 1 mg oral tablet 1 mg, 1, tablet, By Mouth, Daily, # 30 tablet, Refills 5, Tot. Refills 5, Maintenance, 12/29/19 11:13:00 EDT, Route to Pharmacy Electronically, [facility]/pharmacy #[id number], 172, cm, 12/14/19 8:02:00 EDT, [...] 5 Refills, Maintenance, 02/27/20 15:23:00 EDT, [facility]/pharmacy #[id number], 172, cm, 12/14/19 8:02:00 EDT, Height, 97.8, kg, 08/11/19 5:24:00 EST, Dry Weight Start Date: 02/27/20 Status: Ordered Golytely - oral powder for reconstitution 240 mL, By Mouth, Daily, bowel instruction, # 4,000 mL, 0 Refills, Maintenance, 06/21/20 16:44:00 EST, REC Powder, [facility]/pharmacy #[id number], Partial fill upon patient request if the prescription is for a schedule II opioid drug., 240 mL By Mouth Daily,Instr... Start Date: 06/21/20 Status: Ordered LaMICtal 100 mg oral tablet 100 mg, 1, tablet, By Mouth, 2 times a day, # 60 tablet, Refills 3, Tot. Refills 3, Maintenance, 01/21/19 11:25:36 EDT, Route to Pharmacy Electronically, [id number], [facility]/pharmacy #[id number] Start Date: 01/21/19 [...] 15:45:00 EDT, Route to Pharmacy Electronically, [facility]/pharmacy #[id number], 172, cm, 12/14/19 8:02:00 EDT, Height, 9... Start Date: 01/02/20 Status: Ordered nicotine 2 mg oral transmucosal lozenge See Instructions, suck, up to q1 hrs 10 daily, # 144 lozenge, 1 Refills, Maintenance, 03/21/20 11:13:00 EDT, [facility]/pharmacy #[id number], suck, up to q1 hrs 10 daily, 172, cm, 03/21/20 11:04:00 EDT, Height, 97.8, kg, 08/11/19 5:24:00 EST, Dry Weight Start Date: 03/21/20 Status: Ordered nicotine 4 mg oral transmucosal lozenge 1 lozenge = 4 mg, By Mouth, Every hour, dispense 2 boxes of 81 count, # 189 lozenge, 1 Refills, Maintenance, 06/19/20 12:59:00 EST, [facility]/pharmacy #[id number], 1 lozenge By Mouth Every [...] Refills, Soft Stop, 06/01/20 13:51:00 EST, [facility]/pharmacy #[id number], 175, cm, 05/24/20 12:46:00 EST, Height, 83.6, kg, 04/23/20 17:... Start Date: 06/01/20 Status: Ordered NovoLOG FlexPen 100 units/mL subcutaneous solution See Instructions, INJECT 0-18 UNITS SUBCUTANEOUSLY WITH MEALS FOR SLIDING SCALES, # 15 Unknown, 5 Refills, Soft Stop, 02/01/20 9:13:00 EDT, [facility]/pharmacy #[id number], 172, cm, 12/14/19 8:02:00 EDT, Height, 97.8, kg, 08/11/19 5:24:00 EST, Dry Weight Start Date: 02/01/20 Status: Ordered Pen Foster, 31 G x 5 mm BD Ultra [...] EDT, Route to Pharmacy Electronically, [facility]/pharmacy #[id number], 172, cm, 09/05/19 16:17:00 [...] EST, Tablet, this was previously sent to [facility] pharmacy Start Date: 05/17/19 Stop Date: 05/11/20 Status: Ordered Tresiba FlexTouch 200 units/mL subcutaneous solution = 90 units, Subcutaneous Infusion, Daily, at bedtime, # 15 mL, 5 Refills, Maintenance, 08/04/19 13:13:00 EST, [facility]/pharmacy #[id number], 180, cm, 08/01/19 10:43:00 EST, [...] 524 weeks therapy with sofosbuvir/weight based ribavirin 78685 inferolateral stent bare metal circumflex 7DR Marissa [...]
--- OUTSIDE RECORDS SUMMARY | 2024-06-01 12:08 | XMS_ITS | Continuity of Care Document ---
Author Organization [facility] Shawn Lazaro lt Address [address] [place] [address]- Care Team Providers Care Medical Surgery Nurse Name Role Phone Aylin HICKMAN, Ben Willis Primary Care Physician [phone] Encounter [facility] Date(s): 06/07/21 - 07/07/21 [facility] Adult [address] [place] [address]- Allergies, Adverse Reactions, Alerts Substance Reaction Severity [...] Refills, Maintenance, 06/26/20 12:19:00 EST, [id number], 175, cm, 06/25/20 16:11:00 EST, Height, 83.6, [...] Refills, Maintenance, 01/23/21 11:08:00 EDT, CR Capsule, [facility]/pharmacy #[id number], 175.3, cm, 01/21/21 12:58:00 EDT, Height, 83.6, kg, 04/23/20 17:46:00EDT, Dry Weight Start Date: 01/23/21 Stop Date: 01/18/22 Status: Ordered cholecalciferol 2000 intl units oral capsule 1 capsule = 2,000 International_Units, By Mouth, Daily, # 30 capsule, 5 Refills, Maintenance, 05/15/21 13:02:00 EST, Capsule, [facility]/pharmacy #[id number], 175.2, cm, 03/18/21 10:48:00 EDT, Height, 88.3, kg, 03/12/21 9:16:00 EDT, Dry Weight Start Date: 05/15/21 Status: Ordered cloNIDine 0.2 mg oral tablet 0.2 mg, 1, tablet, By Mouth, 2 times a day, # 60 tablet, Refills 5, Tot. Refills 5, Maintenance, 06/24/21 12:51:00 EST, Route to Pharmacy Electronically, [facility]/pharmacy #[id number], 175.2, cm, 06/07/21 9:51:00 EST, Height, 88.3, kg, 03/12/21 9:16:00 EDT, Dry... Start Date: 06/24/21 Status: Ordered Daily Simone oral tablet 1 tablet, By Mouth, Daily, # 30 tablet, 5 Refills, Maintenance, 09/19/20 8:25:00 EDT, Tablet, [facility]/pharmacy #[id number], 1 tablet By Mouth Daily,x30 days, 175, cm, 07/20/20 10:29:00 EST, Height, 83.6, kg, 04/23/20 17:46:00 EDT, Dry Weight Start Date: 09/19/20 Stop Date: 03/18/21 Status: Ordered docusate sodium 100 mg oral capsule 1 capsule, By Mouth, 2 times a day, PRN NEEDED FOR CONSTIPATION, # 60 capsule, 5 Refills, Maintenance, 06/05/21 15:57:00 EST, [facility]/pharm[facility] #[id number], 175.2, cm, 05/27/21 11:26:00 EST, Height, 88.3, kg, 03/12/21 9:16:00 EDT, Dry Weight Start Date: 06/05/21 Status: Ordered folic acid 1 mg oral tablet 1, tablet, By Mouth, Daily, # 30 tablet, Refills 5, Tot. Refills 0, Maintenance, 01/18/21 14:44:00 EDT, Route to Pharmacy Electronically, [id number], 175, cm, 12/24/20 11:20:00 EDT, Height, 83.6, [...] 01/21/19 11:25:36 EDT, Route to Pharmacy Electronically, [id number], [facility]/pharmacy #[id number] Start Date: 01/21/19 Stop Date: 05/21/19 [...] 3 Refills, Maintenance, 06/24/21 16:13:00 EST, Tablet, [facility]/pharmacy #[id number], Partial fill upon patient request if [...] 162 lozenge, 0 Refills,Maintenance, 07/01/21 13:25:00 EST, [facility]/pharmacy #[id number], 10, USE 1 LOZENGE UP TO [...] SLIDING SCALES, # 15 Unknown, 2 Refills, [id number], 175.2, cm, 05/27/21 11:26:00 EST, Height, 88.3, kg, 03/12/21 9:16:00 EDT, Dry Weight Start Date: 06/04/21 Status: Ordered Pen Winside, 31 G x 5 mm BD Ultra [...] tablet, 1 Refills, Maintenance, 01/08/21 14:43:00 EDT, [facility]/pharmacy#[id number], 175, cm, 12/24/20 11:20:00 EDT, Height, 83.6, kg, 04/23/20 17:46:00 EDT, Dry Weight Start Date: 01/08/21 Status: Ordered SEROquel 100 mg oral tablet 100 mg, 1, tablet, By Mouth, 2 times a day, # 60 tablet, Refills 2, Tot. Refills 2, Maintenance, 09/21/19 10:41:00 EDT, Route to Pharmacy Electronically, [facility]/pharmacy #[id number], 172, cm, 09/05/19 16:17:00 EST, Height, [...] 11 Refills, Maintenance, 12/24/20 11:37:00 EDT, Solution, [facility]/pharmacy #[id number], Partial fill upon patient request if [...] 524 weeks therapy with sofosbuvir/weight based ribavirin 49312 inferolateral stent bare metal circumflex 7DR Molddoverno [...]
--- OUTSIDE RECORDS SUMMARY | 2024-06-01 12:08 | XMS_ITS | Continuity of Care Document ---
Author Organization Formerly [facility] Address [address] [place] [address]- Support Name Relationship Address Phone SUHA, CARLOS [...] Unknown Unav ailable Care Team Providers Care Agribusiness Internship Name Role Phone Carrie MULTIMEDIA PRODUCER, Kelly Lopez Primary Care Physician Encounter [facility] [place] Date(s): 04/29/24 - 05/29/24 [facility] Adult [address] [place] [address]- Encounter Type: Triage Allergies, Adverse Reactions, Alerts [...] virus vaccine, inactivated 04/16/10 Give n SARS-CoV-2(COVID-19)mRNA-LNP vac(hta630) 12/31/23 Recorded SARS-CoV-2(COVID-19)mRNA-LNP vac(csv162) 05/08/23 Recorded tetanus/diphtheria/pertussis, acel(Tdap) 10/15/23 Recorded tetanus/diphtheria/pertussis, acel(Tdap) 07/28/11 Given pneumococcal 20-valent conjugate vaccine 3 05/01/23 Given zoster vaccine, inactivated 02/03/23 Recorded zoster vaccine, inactivated 08/09/19 Recorded [id number] 12y+ bivalent booster vax 05/17/22 Recorded SARS-CoV-2 [...] 12/10/10 Given 1Result Comment[facility] 2Result Comment: [id number] 3Result Comment: [id number] 4Admin Note: pt waited 10 mins post inj no adverse reaction noted.j a 5Admin Note: PT WAITED 10 MIN WITH NO ADVERSE REACTION. Medications albuterol 90 mcg/inh inhalation powder 1 puffs, Inhalation, Every 6 hours, PRN Wheezing/Shortness of Breath, # 1 each, 0 Refills, Maintenance, 02/15/24 1:38:00 PM EDT, Powder, [facility]/pharmacy #[id number], Partial [...] 11:59:00 AM EDT, [facility] to Pharmacy Electronically, [facility] [...] 1 Refills, Maintenance, 01/25/24 9:53:00 PM EDT, [facility]/pharmacy #[id number], 168, cm, 01/11/24 14:42:00 EDT, Height, [...] 2:32:00 PM EDT, Route to Pharmacy Electronically, [facility] [...] 11:18:00 AM EDT, Route to Pharmacy Electronically, [facility] [...] 0 Refills, Maintenance, 02/15/24 1:39:00 PM EDT, [facility]/pharmacy #0843, Partial fill [...] 02/17/24 7:23:00 AMEDT, Route to Pharmacy Electronically, [facility]/pharmacy [...] 11:25:36 AM EDT, Route to Pharmacy Electronically, [facility]/pharmacy #[id number] Start Date: 01/21/19 Stop Date: 05/21/19 Status: Ordered Quantity: 60.0 Unit: tablet Repeat number: 4 lisinopril 10 mg oral tablet 10 mg, 1, tablet, By Mouth, Daily, # 90 tablet, Refills 0, Tot. Refills 0, Maintenance, 04/19/24 9:02:00 AM EDT, Route to Pharmacy Electronically, [facility]/pharmacy #0843, 168, cm, 04/15/24 10:23:00 EDT, Height [...] 0 Refills, Maintenance, 03/17/24 2:24:00 PM EDT, [facility]/pharmacy #0843, 168, cm, 03/17/24 9:46:00 EDT, Height Start Date: 03/17/24 Status: Ordered Quantity: 100.0 Unit: tablet Repeat number: 1 nitroglycerin 0.4 mg sublingual tablet See Instructions, DISSOLVE 1 UNDER TONGUE EVERY 5 MINUTES NEEDED FOR CHEST PAIN CALL MD AFTER TAKING 3 TABS IN TOTAL IN A DAY, # 100 tablet, 0 Refills, Maintenance, 10/03/22 3:53:00 PM EDT, [facility]/pharmacy #0843, 175, cm, 09/17/22 13:59:00 EDT, Height, 93, kg, 01/28/22 14:55:00 EDT, Dry Weight Start Date: 10/03/22 Status: Ordered Quantity: 100.0 Unit: tablet Repeat number: 1 NovoLOG FlexPen 100 units/mL injectable solution See Instructions, INJECT 0-18 UNITS SUBCUTANEOUSLY WITH MEALS FOR SLIDING SCALES, # 15 Unknown, 2 Refills, 01/12/24 2:36:00 PM EDT, [facility]/pharmacy #0843, MAX DAILY [...] 0 Refills, Maintenance, 02/02/24 3:28:00 PM EDT, [place], [facility]/pharmacy #0843, Partial fill upon [...] 15.0 Unit: mL Repeat number: 1 Pen [place], 31 G x 5 mm BD Ultra [...] 1 Refills, Maintenance, 05/10/24 12:39:00 PM EST, [facility]/pharmacy #0843, rx resent 05/10/24, 168, cm, 04/19/24 [...] 0 Refills, Maintenance, 05/23/24 9:50:00 AM EST, [facility] STORE 497[facility], 168, cm, 04/19/24 14:01:00 EDT, Height Start [...] ml/min Confirmed Active ASHD; [place] 2012/stent circumflex vessel cath;abdelrahman 2018 3 Confirmed [...] 524 weeks therapy with sofosbuvir/weight based ribavirin 17328 inferolateral stent bare metal circumflex 7DR Molddoverno [...] MD Member Role: Lifetime Consulting Physician Address: [address] [place] [address] [address] [facility] [place] [address]- Telecom: Name: Kelly Butler NP Position: [facility] PCO Associate Professional Member Role: PCP Address: [address] [place] [address]- Telecom: Name: Kristin Mckenzie Position: [facility] Outreach Member Role: Lifetime Consulting Physician Name: Fortunato Sin RN Position: [facility] RN Member Role: Primary Care Nurse Name: Nury Watts RN Position: [facility] RN Member Role: Primary Care Nurse Name: Riky Mena NP Position: [facility] Associate Professional Member Role: Lifetime Consulting Provider Address: [address] [place], [place] [address] [place] [address]- Telecom: Name: Prieto Tobin RN Position: S RN Member Role: Primary Care Nurse Name: Ashleigh Reynoso RN Position: S RN Member Role: Primary Care Nurse Name: Jonn Hui DO Position: [facility] Renal MD Member Role: Lifetime Consulting Physician Address: [address] [place], [place] [address] [address] Telecom: Name: Luis Angel Stephen RN [...] NA Health Plan Information #: 2 Payer: [facility] Member Number: NA Policy Number: NA Group Number: [id number]
--- OUTSIDE RECORDS SUMMARY | 2024-06-01 12:08 | XMS_ITS | Continuity of Care Document ---
Author Organization [facility] Address [address] [place] [address]- Care Team Providers Care Coal Picker Name Role Phone Aylin HICKMAN, Ben Willis Primary Care Physician [phone] Encounter [facility] Date(s): 09/26/19 - 10/06/19 [facility] [address] [place] [address]- [facility] Attending Physician: Admtr, Ar8 Admitting Physician: [...] 10:48:07 EST, Aerosol, Route to Pharmacy Electronically, [id number], [facility], 180, cm, 06/17/19 10:36:11 EST, Height Start Date: 06/17/19 Status: Ordered aspirin 81 mg oral tablet 1 tablet = 81 mg, By Mouth, Daily, # 30 tablet, 11 Refills, Maintenance, 09/03/19 14:22:00 EST, Tablet, [facility]/pharmacy #0843, 180, cm, 08/01/19 10:43:00 EST, Height [...] Refills, Maintenance, 08/16/19 14:00:00 EST, CR Capsule, [facility]/pharmacy #0843, 172, cm, 08/11/19 13:32:00 EST, Height, [...] 05/09/19 9:31:26 EST, Route to Pharmacy Electronically, [id number], [facility]/pharmacy #0843 Start Date: 05/09/19 Status: Ordered Colace sodium 100 mg oral capsule 100 mg, 1, capsule, By Mouth, 2 times a day, PRN, # 60 capsule, Refills 5, Tot. Refills 5, Maintenance, for constipation, 04/25/19 13:50:52 EDT, Route to Pharmacy Electronically, [id number], [facility]/pharmacy #0843 Start Date: 04/25/19 Status: Ordered Crestor 20 mg oral tablet 1 tablet = 20 mg, By Mouth, Daily, discontinue crestor 10 mg daily, # 90 tablet, 3 Refills, Maintenance, 05/12/19 13:46:50 EST, Tablet Start Date: 05/12/19 Status: Ordered Daily Simone oral tablet 1 tablet, By Mouth, Daily, # 30 tablet, 5 Refills, Maintenance, 09/21/19 10:41:00 EDT, Tablet, [facility]/pharmacy #0843, 1 tablet By Mouth Daily,x30 days, 172, cm, 09/05/19 16:17:00 EST, Height, 97.8, kg, 08/11/19 5:24:00 EST, Dry Weight Start Date: 09/21/19 Stop Date: 03/19/20 Status: Ordered folic acid 1 mg oral tablet 1 mg, 1, tablet, By Mouth, Daily, # 30 tablet, Refills 11, Tot. Refills 11, Maintenance, 02/14/19 16:39:14 EDT, Route to Pharmacy Electronically, [id number], [facility]/pharmacy #0843 Start Date: 02/14/19 Status: Ordered Freestyle [...] 01/21/19 11:25:36 EDT, Route to Pharmacy Electronically, [id number], [facility]/pharmacy #0843 Start Date: 01/21/19 Stop [...] 06/21/19 14:10:15 EST, Route to Pharmacy Electronically, [facility]/pharmacy #0843, 180, cm, 06/17/19 10:36:11 EST, Height Start Date: 06/21/19 Status: Ordered metoprolol 50 mg oral tablet 75 mg, 1.5, tablet, By Mouth, 2 times a day, stop metoprolol 50 mg twice daily, # 180 tablet, Refills 2, Tot. Refills 2, Maintenance, 08/26/19 9:30:00 EST, Route to Pharmacy Electronically, [facility]/pharmacy #0843, 172, cm, 08/23/19 10:02:00 EST, Height, 9... Start Date: 08/26/19 Status: Ordered nicotine 4 mg oral transmucosal lozenge 1 lozenge = 4 mg, By Mouth, Every hour, # 132 lozenge, 1 Refills, Maintenance, 10/05/19 11:01:00 EDT, [facility]/pharmacy #0843, 1 lozenge By Mouth Every hour, [...] PAIN CALL 911 IF PAIN NOT RELIEVED, [facility]/pharmacy #0843 Start Date: 02/17/19 Status: Ordered NovoLOG FlexPen 100 units/mL subcutaneous solution See Instructions, # 15 Unknown, Refills 5 Tot. Refills 5, INJECT 0-18 UNITS SUBCUTANEOUSLY WITH MEALS FOR SLIDING SCALES, [facility]/pharmacy #0843 Start Date: 01/04/19 Status: Ordered Pen [place], 31 G x 5 mm BD Ultra [...] 0 Refills, Maintenance, 10/05/19 11:07:00 EDT, Solution, [facility]/pharmacy #0843, 172, cm, 09/05/19 16:17:00 [...] EST, Tablet, this was previously sent to [facility] pharmacy Start Date: 05/17/19 Stop Date: 05/11/20 Status: Ordered Tresiba FlexTouch 200 units/mL subcutaneous solution = 90 units, Subcutaneous Infusion, Daily, at bedtime, # 15 mL, 5 Refills, Maintenance, 08/04/19 13:13:00 EST, [facility]/pharmacy #0843, 180, cm, 08/01/19 10:43:00 EST, Height Start Date: 08/04/19 Status: Ordered Problem List Condition Effective Dates Status Health Status Inform ant Acute pancreatitis(Confirmed) 07/16/16 Active Adenomatous colon polyp(Confirmed) Active Bipolar disorder(Confirmed) Active Cervical spondylosis(Confirmed) Active Chronic back pain opiates pe r physiatry(Confirmed) Active Glomerulonephritis,mesangial proliferative/fibrillary(Confirmed) 1, 2 Active Chronic renal impairment, st age 3 (moderate)(Confirmed) Active ASHD; [place] 2012/stent circumfl ex vessel [...] 524 weeks therapy with sofosbuvir/weight based ribavirin 69428 inferolateral stent bare metal circumflex 7DR Marissa [...]
--- OUTSIDE RECORDS SUMMARY | 2024-06-01 12:08 | XMS_ITS | Continuity of Care Document ---
Author Organization [facility] Address [address] [place] [address]- Care Team Providers Care Painter Barrel Name Role Phone Aylin HICKMAN, Ben Willis Primary Care Physician Encounter [facility] Date(s): 04/23/20 - 04/25/[address] [address]- [facility] Discharge Disposition: A-D/C Home Attending Physician: Sylvia Soler MD Admitting Physician: Prieto Hernandez MD Referring Physician: Not on Staff, Referring [...] 10:48:07 EST, Aerosol, Route to Pharmacy Electronically, [id number], [id number], 180, cm, 06/17/19 10:36:11 EST, Height Start Date: 06/17/19 Status: Ordered aspirin 81 mg oral tablet 1 tablet = 81 mg, By Mouth, Daily, # 30 tablet, 11 Refills, Maintenance, 09/03/19 14:22:00 EST, Tablet, [facility]/pharmacy #0843, 180, cm, 08/01/19 10:43:00 EST, [...] Refills, Maintenance, 01/02/20 15:47:00 EDT, CR Capsule, [facility]/pharmacy #0843, 172, cm, 12/14/19 8:02:00 EDT, Height, 97.8, kg, 08/11/19 5:24:00 EST, Dry Weight Start Date: 01/02/20 Stop Date: 12/27/20 Status: Ordered cholecalciferol 2000 intl units oral capsule 1 capsule = 2,000 International_Units, By Mouth, Daily, # 30 capsule, 5 Refills, Maintenance, 11/02/19 10:15:00 EDT, Capsule, [facility]/pharmacy #0843, 172, cm, 09/05/19 16:17:00 EST, Height, 97.8, kg, 08/11/19 5:24:00 EST, Dry Weight Start Date: 11/02/19 Status: Ordered cloNIDine 0.2 mg oral tablet 0.2 mg, 1, tablet, By Mouth, 2 times a day, # 60 tablet, Refills 2, Tot. Refills 2, Maintenance, 03/08/20 16:50:00 EDT, Route to Pharmacy Electronically, [facility]/pharmacy #0843, 172, cm, 12/14/19 8:02:00EDT, Height, 97.8, kg, 08/11/19 5:24:00 EST, Dry We... Start Date: 03/08/20 Status: Ordered Colace sodium 100 mg oral capsule 100 mg, 1, capsule, By Mouth, 2 times a day, PRN, # 60 capsule, Refills 5, Tot. Refills 5, Maintenance, for constipation, 02/27/20 15:25:00 EDT, Route to Pharmacy Electronically, [facility]/pharmacy #0843, 172, cm, 12/14/19 8:02:00 EDT, Height, 97.8, kg, 02/... Start Date: 02/27/20 Status: Ordered Crestor 20 mg oral tablet 1 tablet = 20 mg, By Mouth, Daily, # 90 tablet, 3 Refills, Maintenance, 01/02/20 15:46:00 EDT, Tablet, [facility]/pharmacy #0843, 172, cm, 12/14/19 8:02:00 EDT, Height, 97.8, kg, 08/11/19 5:24:00 EST, Dry Weight Start Date: 01/02/20 Status: Ordered Daily Simone oral tablet 1 tablet, By Mouth, Daily, # 30 tablet, 5 Refills, Maintenance, 03/01/20 14:48:00 EDT, Tablet, [facility]/pharmacy #0843, 1 tablet By Mouth Daily,x30 days, 172, cm, 12/14/19 8:02:00 EDT, Height, 97.8, kg, 08/11/19 5:24:00 EST, Dry Weight Start Date: 03/01/20 Stop Date: 08/28/20 Status: Ordered folic acid 1 mg oral tablet 1 mg, 1, tablet, By Mouth, Daily, # 30 tablet, Refills 5, Tot. Refills 5, Maintenance, 12/29/19 11:13:00 EDT, Route to Pharmacy Electronically, [facility]/pharmacy #0843, 172, cm, 12/14/19 8:02:00 EDT, [...] tablet, 5 Refills, Maintenance, 02/27/20 15:23:00 EDT, [facility]/pharmacy #0843, 172, cm, 12/14/19 8:02:00 EDT, Height, 97.8, kg, 08/11/19 5:24:00 EST, Dry Weight Start Date: 02/27/20 Status: Ordered LaMICtal 100 mg oral tablet 100 mg, 1, tablet, By Mouth, 2 times a day, # 60 tablet, Refills 3, Tot. Refills 3, Maintenance, 01/21/19 11:25:36 EDT, Route to Pharmacy Electronically, [id number], [facility]/pharmacy #0843 Start Date: 01/21/19 Stop Date: [...] 01/02/20 15:45:00 EDT, Route to Pharmacy Electronically, [facility]/pharmacy #0843, 172, cm, 12/14/19 8:02:00 EDT, [...] lozenge, 1 Refills, Maintenance, 11/29/19 8:13:00 EDT, [facility]/pharmacy #0843, 1 lozenge By Mouth Every [...] 1.5 Unknown, 0 Refills, Maintenance, [facility], 172, cm, 12/14/19 8:02:00 EDT, Height, 97.8, kg, 08/11/19 5:24:00 EST, Dry Weight Start Date: 02/09/20 Status: Ordered Pen [place], 31 G x 5 mm BD Ultra [...] 09/21/19 10:41:00 EDT, Route to Pharmacy Electronically, [facility]/pharmacy #0843, 172, cm, 09/05/19 16:17:00 EST, [...] EST, Tablet, this was previously sent to [facility] pharmacy Start Date: 05/17/19 Stop Date: 05/11/20 [...] 524 weeks therapy with sofosbuvir/weight based ribavirin 27294 inferolateral stent bare metal circumflex 7DR Marissa sx;Dr Schwartz 8repeat colonoscopy in 5 years Results Radiology Reports * Exam Date Time Procedure Performing Provider Status 04/23/20 12:48 PM Chest Portable Nate Moreira; Ollie (Verified) Notes: (Chest Portable) Reason For Exam: Shortness of Breath RESULT: Chest Portable Chest Portable Hx of Present Illness: pressure in head - started feeling off a week ago - Reason: Shortness of Breath; COMPARISON: August 10, 2019 FINDINGS: LINES AND TUBES: None. LUNGS AND PLEURA: Allowing for low lung volumes, the lungs are clear and the pulmonary vasculature is normal. No pleural effusion. No pneumothorax. HEART, MEDIASTINUM AND CINTHYA: Heart is normal in size. Normal mediastinal and hilar contour. BONES AND SOFT TISSUES: No acute abnormality. IMPRESSION: No acute abnormality. WSN: [id number] Ordering Physician: Eder Nelson Dictated By: Eder Vasquez MD Dictated Date/Time: 04/23/20 12:55 p Reviewed By: Eder Vasquez MD Signed By: Eder Vasquez MD Signed Date/Time: 04/23/20 12:55 pm Transcribed By: AYSHA Transcribed Date/Time: 04/23/20 12:55 pm Vital Signs Most recent to oldest [Reference Range]: 1 2 3 Height 175 cm (04/25/20 7:59 AM) 175 cm (04/25/20 7:35 AM) 175 cm (04/25/20 4:52 AM) Weight 83.6 kg (04/23/20 5:46 PM) 82 kg (04/23/20 4:50 PM) 82 kg (04/23/20 1:12 PM) Oxygen Saturation [94-100 %] 100 % (04/25/20 7:35 AM) 100 % (04/25/20 4:52 AM) 96 % (04/24/20 11:18 PM) Pulse Rate [55-90 bpm] 60 bpm (04/25/20 7:35 AM) 65 bpm (04/25/20 4:52 AM) 70 bpm (04/24/20 11:18 PM) Body Mass Index [18.5-24.99] 27.3 *H* (04/23/20 5:46 PM) 29.05 *H* (04/23/20 4:50 PM) 29.05 *H* (04/23/20 1:12 PM) Blood Pressure [90-138/55-84 mm Hg] 127/49mm Hg (04/25/20 7:35 AM) 134/55mm Hg (04/25/20 4:52 AM) 121/40mm Hg (04/24/20 11:18 PM) Respiratory Rate [16-30 br/min] 20 br/min (04/25/20 7:35 AM) 18 br/min (04/25/20 4:52 AM) 18 br/min (04/24/20 11:18 PM) Temperature [96.8-100.4 DegF] 98.0 DegF (04/25/20 7:35 AM) 98.0 DegF (04/25/20 4:52 AM) 97.6 DegF (04/24/20 11:18 PM) Mode of Delivery (Oxygen) Room air (04/25/20 7:35 AM) Room air (04/25/20 4:52 AM) Room air (04/24/20 11:18 PM) Blood pressure sites Arm, left (04/25/20 7:35 AM) Arm, right (04/25/20 4:52 AM) Arm, left (04/24/20 11:18 PM) Temperature Route Oral (04/25/20 7:35 AM) Oral (04/25/20 4:52 AM) Oral (04/24/20 11:18 PM) Dry Weight 83.6 kg (04/23/20 5:46 PM) 82 kg (04/23/20 4:50 PM) 82 kg (04/23/20 1:12 PM) Weight Obtained Via Patient/family state d (04/23/20 11:44 AM) Dry Weight Obtained Via Patient/family s tated (04/23/20 11:44 AM) Social History Social History Type Response Smoking Status Former smoker, quit more than 30 days ago; Interested in cessation: Yes; Tobacco use times per day: 0.5-1 PPD; Total pack years: 38; Started at age: 12; Stopped at age: 63; entered on: 12/14/19 Sex
--- OUTSIDE RECORDS SUMMARY | 2024-06-01 12:08 | XMS_ITS | Continuity of Care Document ---
Author Organization [facility] Lazaro lt Address [address] [place] [address]- Care Team Providers Care Fire Watchman Name Role Phone Aylin HICKMAN, Ben Willis Primary Care Physician [phone] Encounter [facility] [place] Date(s): 10/23/21 - 11/22/21 [facility] Adult [address] [place] [address]- Allergies, Adverse Reactions, Alerts Substance Reaction Severity [...] tablet, 3 Refills, Maintenance, 09/30/21 12:28:00 EDT, [facility]/pharmacy#0843, 175.2, cm, 09/20/21 8:36:00 EDT, Height, [...] Refills, Maintenance, 01/23/21 11:08:00 EDT, CR Capsule, [facility]/pharmacy #0843, 175.3, cm, 01/21/21 12:58:00 [...] 01/21/19 11:25:36 EDT, Route to Pharmacy Electronically, [id number], [facility]/pharmacy #0843 Start [...] 270 tablet, 0 Refills, 06/24/21 10:42:00 EST, [facility]/pharmacy #0843, 175.2, cm, 06/07/21 9:51:00 EST, Height, 88.3, kg, 03/12/21 9:16:00 EDT, Dry Weight Start Date: 06/24/21 Status: Ordered nicotine 2 mg oral transmucosal lozenge See Instructions, USE 1 LOZENGE UP TO EVERY 1 HOUR NEEDED FOR 10 DAYS, # 162 lozenge, 0 Refills,Maintenance, 11/22/21 14:08:00 EDT, [facility]/pharmacy #0843, 16, USE 1 LOZENGE [...] # 15 Unknown, 2 Refills, [facility], 175.2, cm, 05/27/21 11:26:00 EST, Height, 88.3, kg, 03/12/21 9:16:00 EDT, Dry Weight Start Date: 06/04/21 Status: Ordered Pen [place], 31 G x 5 mm BD [...] 10:41:00 EDT, [facility], cm, 09/05/19 16:17:00 [...] 0 Refills, Maintenance, 11/12/21 16:48:00 EDT, Suspension, [facility]/pharmacy [...] # 9 Unknown, 1 Refills, [facility], 175.2, cm, 07/31/21 11:20:00 EST, Height, 88.3, [...] # 30 capsule, 5 Refills, [facility], 175.2, cm, 11/15/21 11:18:00 EDT, Height, 88.3, [...] 524 weeks therapy with sofosbuvir/weight based ribavirin 17837 inferolateral stent bare metal circumflex 7DR Molddoverno [...]
--- OUTSIDE RECORDS SUMMARY | 2024-06-01 12:09 | XMS_ITS | Continuity of Care Document ---
Author Organization [facility] Shawn Lazaro lt Address [address] [place] [address]- Care Team Providers Care Multimedia Services Manager Name Role Phone Aylin HICKMAN, Ben Willis Primary Care Physician [phone] Encounter [facility] Date(s): 11/18/21 - 12/18/21 [facility] Adult [address] [place] [address]- Allergies, Adverse Reactions, Alerts Substance Reaction Severity [...] 11:08:00 EDT, 01/23/21 11:08:00 EDT, CR Capsule, [facility]/pharmacy #0843, 175.3, cm, 01/21/21 12:58:00 EDT, Height, [...] 06/24/21 12:51:00 EST, Route to Pharmacy Electronically, [facility]/pharmacy #0843, 175.2, cm, 06/07/21 9:51:00 EST, Height, 88.3, kg, 03/12/21 9:16:00 EDT, Dry... Start Date: 06/24/21 Status: Ordered Daily Simone oral tablet 1 tablet, By Mouth, Daily, # 30 tablet, 5 Refills, Maintenance, 07/29/21 13:53:00 EST, Tablet, [facility]/pharmacy #0843, 1 tablet By Mouth Daily,x30 days, [...] tablet, 5 Refills, Maintenance, 06/05/21 15:57:00 EST, [facility]/pharmacy #0843, 175.2, cm, 05/27/21 11:26:00 EST, Height, 88.3, kg, 03/12/21 9:16:00 EDT, Dry Weight Start Date: 06/05/21 Status: Ordered LaMICtal 100 mg oral tablet 100 mg, 1, tablet, By Mouth, 2 times a day, # 60 tablet, Refills 3, Tot. Refills 3, Maintenance, 01/21/19 11:25:36 EDT, Route to Pharmacy Electronically, [id number], [facility]/pharmacy #0843 Start Date: [...] a day, # 270 tablet, 0 Refills, [facility], 175.2, cm, 11/15/21 11:18:00 EDT, Height, 88.3, kg, 03/12/21 9:16:00 EDT, Dry Weight Start Date: 12/12/21 Status: Ordered nicotine 2 mg oral transmucosal lozenge See Instructions, USE 1 LOZENGE UP TO EVERY 1 HOUR NEEDED FOR 10 DAYS, # 162 lozenge, 0 Refills,Maintenance, 12/11/21 9:38:00 EDT, [facility]/pharmacy #0843, 16, USE 1 LOZENGE UP TO [...] # 15 Unknown, 2 Refills, [facility], 175.2, cm, 05/27/21 11:26:00 EST, Height, 88.3, kg, 03/12/21 9:16:00 EDT, Dry Weight Start Date: 06/04/21 Status: Ordered Pen [place], 31 G x [...] tablet, 1 Refills, Maintenance, 08/15/21 14:24:00 EST, [facility]/pharmacy#0843, 175.2, cm, 07/31/21 11:20:00 EST, Height, 88.3, kg, 03/12/21 9:16:00 EDT, Dry Weight Start Date: 08/15/21 Status: Ordered SEROquel 100 mg oral tablet 100 mg, 1, tablet, By Mouth, 2 times a day, # 60 tablet, Refills 2, Tot. Refills 2, Maintenance, 09/21/19 10:41:00 EDT, [facility], cm, 09/05/19 16:17:00 [...] # 9 Unknown, 1 Refills, [facility], 175.2, cm, 07/31/21 11:20:00 EST, Height, 88.3, [...] # 30 capsule, 5 Refills, [facility], 175.2, cm, 11/15/21 11:18:00 EDT, Height, 88.3, [...] mild to moderate. 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 2013/PA 4secondary to hep C 524 weeks therapy with sofosbuvir/weight based ribavirin 75639 inferolateral stent bare metal circumflex 7DR Molddoverno [...]
--- OUTSIDE RECORDS SUMMARY | 2024-06-01 12:09 | XMS_ITS | Continuity of Care Document ---
Author Organization [facility] Nando Escobar Lazaro lt Address [address] [place] [address]- Care Team Providers Care Buckle Stapler Name Role Phone Carrie TABLE SAW OPERATORKelly Primary Care Physician Encounter [facility] Date(s): 11/26/22 - 12/26/22 [facility] Nando Escobar Adult [address] [place] [address]- Allergies, Adverse Reactions, Alerts Substance Reaction Severity [...] influenza virus vaccine, inactivated 04/16/10 Give n [id number] 12y+ bivalent booster vax 05/17/22 Recorded SARS-CoV-2 [...] capsule, 5 Refills, Maintenance, 07/18/22 11:59:00 EST, [facility]/pharmacy #[id number], 175, cm, 07/17/22 10:33:00 EST, Height, 93, kg, 01/28/22 14:55:00 EDT, Dry Weight Start Date: 07/18/22 Status: Ordered Flonase 50 mcg/inh nasal spray 1 sprays, Nares, Both, 2 times a day, # 16 Gm, 0 Refills, Maintenance, 09/05/22 9:15:00 EST, [place],[facility]/pharmacy #[id number], Partial fill upon patient request if the prescription is for a schedule II opioid drug., 1 sprays Nares, Both 2 times a day, 175, c... Start Date: 09/05/22 Status: Ordered folic acid 1 mg oral tablet 1, tablet, By Mouth, Daily, # 30 tablet, Refills 5, Tot. Refills 5, Maintenance, 08/15/22 10:27:00 EST, Route to Pharmacy Electronically, [facility]/pharmacy #[id number], 175, cm, 07/17/22 [...] 01/21/19 11:25:36 EDT, Route to Pharmacy Electronically, [id number], [facility]/pharmacy #[id number] Start Date: 01/21/19 Stop Date: 05/21/19 Status: Ordered lisinopril 40 mg oral tablet 1 tablet, By Mouth, Daily, # 90 tablet, 0 Refills, Maintenance, 10/24/22 10:11:00 EDT, [facility]/pharmacy#[id number], 175, cm, 10/09/22 16:51:00 EDT, Height, 93, kg, 01/28/22 14:55:00 EDT, Dry Weight Start Date: 10/24/22 Status: Ordered Metoprolol Tartrate 50 mg oral tablet 1.5 tablet, By Mouth, 2 times a day, # 270 tablet, 1 Refills, Maintenance, 09/01/22 13:28:00 EST, [facility] STORE [id number], 175, cm, 07/17/22 10:33:00 EST, Height, 93, kg, 01/28/22 14:55:00 EDT, Dry Weight Start Date: 09/01/22 Status: Ordered Nicotine 7 mg/24 hour patch 1 patch, Topically, Daily, # 30 patch, 0 Refills, Maintenance, 11/17/22 11:45:00 EDT, Patch, [facility]/pharmacy #[id number], Partial fill upon [...] tablet, 0 Refills, Maintenance, 10/03/22 15:53:00 EDT, [facility]/pharmacy #[id number], 175, cm, 09/17/22 13:59:00 EDT, Height,... Start Date: 10/03/22 Status: Ordered NovoLOG FlexPen 100 units/mL injectable solution See Instructions, INJECT 0-18 UNITS SUBCUTANEOUSLY WITH MEALS FOR SLIDING SCALES, # 15 Unknown, 2 Refills, 11/07/22 0:09:00 EDT, [facility]/pharmacy #[id number], 175, cm, 10/09/22 16:51:00 EDT, Height, 93, kg, 01/28/22 14:55:00 EDT, Dry Weight Start Date: 11/07/22 Status: Ordered Pen [place], 31 G x 5 mm BD Ultra [...] capsule, 2 Refills, Maintenance, 08/07/22 12:55:00EST, Capsule, [facility]/pharmacy #[id number], 175, cm, 07/17/22 10:33:00 EST, Height, 93, kg, 01/28/22 14:55:00EDT, Dry Weight Start Date: 08/07/22 Status: Ordered rosuvastatin 20 mg oral tablet 1 tablet, By Mouth, Daily, # 90 tablet, 1 Refills, Maintenance, 05/21/22 13:33:00 EST, [facility], 175, cm, 05/09/22 11:08:00 EDT, Height, 93, kg, 01/28/22 14:55:00 EDT, Dry Weight Start Date: 05/21/22 Status: Ordered Senna 8.6 mg oral tablet 1 or 2 tablets, By Mouth, Daily at bedtime, PRN, # 60 tablet, Refills 5, Tot. Refills 5, Maintenance, Constipation, 11/03/22 15:04:00 EDT, Route to Pharmacy Electronically, [facility]/pharmacy #[id number] Tablet,Partial fill upon patient request if the prescripti... Start Date: 11/03/22 Status: Ordered SEROquel 100 mg oral tablet 100 mg, 1, tablet, By Mouth, 2 times a day, PRN, # 1 tablet, Refills 2, Tot. Refills 2, Maintenance, Anxiety, 09/21/19 10:41:00 EDT, Route to Pharmacy Electronically, [facility]/pharmacy #[id number], 172, cm, 09/05/19 [...] 9 Unknown, 1 Refills, 01/21/22 15:39:00 EDT, [facility]/pharmacy #[id number], 175.2, cm, 12/18/21 14:10:00 EDT, Height... Start Date: 01/21/22 Status: Ordered Trulicity Pen 0.75 mg/0.5 mL subcutaneous solution 0.5 mL = 0.75 mg, Subcutaneous Injection, Every week, # 2.5 mL, 2 Refills, Maintenance, 04/08/22 9:12:00 EDT, Solution, [facility]/pharmacy #[id number], Partial fill upon [...] mild to moderate. 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 2013/OR 4secondary to hep C 524 weeks therapy with sofosbuvir/weight based ribavirin 29184 inferolateral stent bare metal circumflex 7DR Molddoverno [...] Personnel Name: Darius HICKMAN, Jeffrey Lopez Position: [facility] Renal MD Member Role: Lifetime Consulting Physician Address: Address: [address] [place] [address] [facility] [place] [address]- Name: Kelly Butler NP Position: [facility] PCO Associate Professional Member Role: PCP Address: Address: [address] [place] [id number]- Name: Kristin Mckenzie Position: [facility] Outreach Member Role: Lifetime Consulting Physician Name: Prieto Tobin RN Position: [facility] RN Member Role: Primary Care Nurse Name: Jonn Hui DO Position: [facility] Renal MD Member Role: Lifetime Consulting Physician Address: Address: [address] [place], [place] [address] [place] [address]- Name: Luis Angel Stephen RN Position: [facility] RN Member Role: Primary Care Nurse Care Team Related Persons Name: CARLOS A BORDEN Address: [address] [place] [address] Name: LEVI BORDEN Address: [address] [place] [address]
--- OUTSIDE RECORDS SUMMARY | 2024-06-01 12:09 | XMS_ITS | Continuity of Care Document ---
Author Organization [facility] Lazaro Address [address] [place] [address]- Care Team Providers Care Manufacturing Worker Name Role Phone Aylin HICKMAN, Ben Willis Primary Care Physician Encounter [facility] Date(s): 10/31/20 - 11/30/20 [facility] Adult [address] [place] [address]- Attending Physician: Admtr, Ar8 Admitting Physician: Admtr, [...] 10:48:07 EST, Aerosol, Route to Pharmacy Electronically, [id number], [facility]/pharmacy #[id number], 180, cm, 06/17/19 10:36:11 EST, Height Start Date: 06/17/19 Status: Ordered aspirin 81 mg oral delayed release tablet 1 tablet, By Mouth, Daily, # 30 tablet, 11 Refills, Maintenance, 06/26/20 12:19:00 EST, [id number], 175, cm, 06/25/20 16:11:00 EST, Height, 83.6, [...] Refills, Maintenance, 01/02/20 15:47:00 EDT, CR Capsule, [facility]/pharmacy #[id number], 172, cm, 12/14/19 8:02:00 EDT, Height, 97.8, kg, 08/11/19 5:24:00 EST, Dry Weight Start Date: 01/02/20 Stop Date: 12/27/20 Status: Ordered cholecalciferol 2000 intl units oral capsule 1 capsule = 2,000 International_Units, By Mouth, Daily, # 30 capsule, 5 Refills, Maintenance, 11/02/20 10:48:00 EDT, Capsule, [facility]/pharmacy #[id number], 175, cm, 09/21/20 11:29:00 EDT, Height, 83.6, kg, 04/23/20 17:46:00 EDT, Dry Weight Start Date: 11/02/20 Status: Ordered cloNIDine 0.2 mg oral tablet 0.2 mg, 1, tablet, By Mouth, 2 times a day, # 60 tablet, Refills 5, Tot. Refills 5, Maintenance, 09/09/20 19:43:00 EST, Route to Pharmacy Electronically, [facility]/pharmacy #[id number], 175, cm, 07/20/20 10:29:00 EST, Height, 83.6, kg, 04/23/20 17:46:00 EDT, Dry... Start Date: 09/09/20 Status: Ordered Colace sodium 100 mg oral capsule 100 mg, 1, capsule, By Mouth, 2 times a day, PRN, # 60 capsule, Refills 5, Tot. Refills 5, Maintenance, for constipation, 02/27/20 15:25:00 EDT, Route to Pharmacy Electronically, [facility]/pharmacy #[id number], 172, cm, 12/14/19 8:02:00 EDT, Height, 97.8, kg, 02... Start Date: 02/27/20 Status: Ordered Crestor 20 mg oral tablet 1 tablet = 20 mg, By Mouth, Daily, # 90 tablet, 3 Refills, Maintenance, 01/02/20 15:46:00 EDT, Tablet, [facility]/pharmacy #[id number], 172, cm, 12/14/19 8:02:00 EDT, Height, 97.8, kg, 08/11/19 5:24:00 EST, Dry Weight Start Date: 01/02/20 Status: Ordered Daily Simone oral tablet 1 tablet, By Mouth, Daily, # 90 tablet, 3 Refills, Maintenance, 09/21/20 11:35:00 EDT, Tablet, [facility]/pharmacy #[id number], Partial fill upon [...] to Pharmacy Electronically, [facility]/pharmacy #[id number], 175, cm, 06/25/20 16:11:00 EST, Height, [...] tablet, 5 Refills, Maintenance, 02/27/20 15:23:00 EDT, [facility]/pharmacy #[id number], 172, cm, 12/14/19 8:02:00 EDT, Height, 97.8, kg, 08/11/19 5:24:00 EST, Dry Weight Start Date: 02/27/20 Status: Ordered Golytely - oral powder for reconstitution 240 mL, By Mouth, Daily, bowel instruction, # 4,000 mL, 0 Refills, Maintenance, 06/21/20 16:44:00 EST, REC Powder, [facility]/pharmacy #[id number], Partial fill upon patient request if the prescription is for a schedule II opioid drug., 240 mL By Mouth Daily,Instr... Start Date: 06/21/20 Status: Ordered LaMICtal 100 mg oral tablet 100 mg, 1, tablet, By Mouth, 2 times a day, # 60 tablet, Refills 3, Tot. Refills 3, Maintenance, 01/21/19 11:25:36 EDT, Route to Pharmacy Electronically, [id number], [facility]/pharmacy #[id number] Start Date: 01/21/19 [...] tablet, 0 Refills, Maintenance, 11/16/20 11:46:00 EDT, [facility]ORE [id number], 175, cm, 09/21/20 11:29:00 EDT, Height, 83.6, kg, 04/23/20 17:46:00 EDT, Dry Weight Start Date: 11/16/20 Status: Ordered nicotine 2 mg oral transmucosal lozenge See Instructions, suck, up to q1 hrs 10 daily, # 162 lozenge, 1 Refills, Maintenance, 11/16/20 12:04:00 EDT, [facility]/pharmacy #[id number], suck, up to q1 hrs 10 daily, 175, cm, 09/21/20 11:29:00 EDT, Height, 83.6, kg, 04/23/20 17:46:00 EDT, Dry Weight Start Date: 11/16/20 Status: Ordered nicotine 4 mg oral transmucosal lozenge 1 lozenge = 4 mg, By Mouth, Every hour, dispense 2 boxes of 81 count as directed on package labeling, # 162 lozenge, 3 Refills, Maintenance, 09/25/20 14:39:00 EDT, [facility]/pharmacy #[id number], 1 lozenge By Mouth Every hour,Instr:dispense [...] 2 Refills, Soft Stop, 06/01/20 13:51:00 EST, [facility]/pharmacy #[id number], 175, cm, 05/24/20 12:46:00 EST, Height, [...] 9:13:... Start Date: 02/01/20 Status: Ordered Pen [place], 31 G x [...] EDT, Route to Pharmacy Electronically, [facility]/pharmacy #[id number], 172, cm, 09/05/19 16:17:00 EST, Height, [...] EST, Tablet, this was previously sent to [facility] Start Date: 05/17/19 Stop Date: 05/11/20 Status: Ordered Tresiba FlexTouch 200 units/mL subcutaneous solution = 70 units, Subcutaneous Infusion, Daily, at bedtime, # 15 mL, 5 Refills, Maintenance, 08/04/19 13:13:00 EST, [facility]/pharmacy #[id number], 180, cm, 08/01/19 10:43:00 EST, Height Start Date: 08/04/19 Status: Ordered Problem List Condition Effective Dates Status Health Status Inform ant Acute pancreatitis(Confirmed) 07/16/16 Active Adenomatous colon polyp colo noscopy 2016(Confirmed) Active Bipolar disorder(Confirmed) Active Cervical spondylosis(Confirmed) Active Chronic back pain DJD(Confirmed) Active Glomerulonephritis,mesangial proliferative/fibrillary(Confirmed) 1, 2 Active ASHD; CT 2013/stent circumfl ex vessel cath;abdelrahman 2018(Confirmed) 3 Active Epididymal cyst rt(Confirmed) 04/18/19 Active Low serum vitamin D(Confirmed) Active Dizzinesses(Confirmed) Active Insulin long-term use(Confirmed) Active Dysphagia(Confirmed) Active Ex-smoker quit 2018ldc t enrolled(Confirmed) Active [...] mild to moderate. 3MI 2012 circumflex stent 2012/CT 4secondary to hep C 524 weeks therapy with sofosbuvir/weight based ribavirin 28267 inferolateral stent bare metal circumflex 7DR Marissa asucedax;Dr Scwhartz 8repeat colonoscopy in 5 years Procedures Procedure [...]
--- OUTSIDE RECORDS SUMMARY | 2024-06-01 12:09 | XMS_ITS | Continuity of Care Document ---
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) - 07/17/22 Insulin long-term use(Discharge Diagnosis) - 07/17/22 CKD (chronic kidney disease) stage 4, GFR 15-29 ml/min(Discharge Diagnosis) - 07/17/22 Bipolar disorder(Discharge Diagnosis) - 07/17/22 History of alcoholism(Discharge Diagnosis) - 07/17/22 Ex-cigarette smoker quit May 2019 LDCT(Discharge Diagnosis) - 07/17/22 Chronic back pain DJD(Discharge Diagnosis) - 07/19/22 Attending Physician: Kelly Butler NP Referring Physician: Aylin HICKMAN, Ben Willis Allergies, Adverse [...] influenza virus vaccine, inactivated 04/16/10 Give n [id number] 12y+ bivalent booster vax 05/17/22 Recorded SARS-CoV-2 [...] 5 Refills, Maintenance, 02/11/22 11:48:00 EDT, Tablet, [facility]acy #[id number], 1 tablet By Mouth Daily,x30 days, 175, cm, 01/29/22 15:12:00 EDT, Height, 93, kg, 01/28/22 14:55:00 EDT, Dry Weight Start Date: 02/11/22 Stop Date: 08/10/22 Status: Ordered DilTIAZem (Eqv-Cardizem CD) 180 mg/24 hours oral capsule, extended release 1 capsule, By Mouth, Daily, # 90 capsule, 0 Refills, Maintenance, 05/21/22 13:33:00 EST, [facility], 175, cm, 05/09/22 11:08:00 EDT, Height, 93, kg, 01/28/22 14:55:00 EDT, Dry Weight Start Date: 05/21/22 Status: Ordered docusate sodium 100 mg oral capsule 1 capsule, By Mouth, 2 times a day, PRN NEEDED FOR CONSTIPATION, # 60 capsule, 5 Refills, Maintenance, 07/18/22 11:59:00 EST, [facility]/pharmacy #[id number], 175, cm, 07/17/22 10:33:00 EST, Height, 93, kg, 01/28/22 14:55:00 EDT, Dry Weight Start Date: 07/18/22 Status: Ordered folic acid 1 mg oral tablet 1, tablet, By Mouth, Daily, # 30 tablet, Refills 5, Tot. Refills 5, Maintenance, 04/01/22 21:30:00 EDT, [id number] 175, cm, 02/14/22 10:10:00 EDT, [...] 01/21/19 11:25:36 EDT, Route to Pharmacy Electronically, [id number], [facility]/pharmacy #[id number] Start Date: 01/21/19 Stop Date: 05/21/19 Status: Ordered lisinopril 40 mg oral tablet 1 tablet, By Mouth, Daily, # 90 tablet, 1 Refills, Maintenance, 05/07/22 14:29:00 EDT, [facility], 175, cm, 04/08/22 8:34:00 EDT, Height, 93, kg, 01/28/22 14:55:00 EDT, Dry Weight Start Date: 05/07/22 Status: Ordered Metoprolol Tartrate 50 mg oral tablet 1.5 tablet, By Mouth, 2 times a day, # 270 tablet, 0 Refills, 05/21/22 10:19:00 EST, [facility]/pharmacy #[id number], 175, cm, 05/09/22 11:08:00 EDT, Height, 93, kg, 01/28/22 14:55:00 EDT, Dry Weight Start Date: 05/21/22 Status: Ordered Nicotine 7 mg/24 hour patch 1 patch, Topically, Daily, for 30 days, # 30 patch, 0 Refills, Acute 08/14/22 19:52:00 EST, 07/15/22 19:52:00 EST, Patch, [facility]/pharmacy #[id number], Partial fill upon patient [...] # 15 Unknown, 2 Refills, [facility], 175.2, cm, 05/27/21 11:26:00 EST, Height, 88.3, kg, 03/12/21 9:16:00 EDT, Dry Weight Start Date: 06/04/21 Status: Ordered Pen [place], 31 G x 5 mm BD Ultra [...] 5 Refills, Maintenance, 04/08/22 9:12:00 EDT, Capsule, [facility]/pharmacy #[id number], 175, cm, 04/08/22 8:34:00 EDT, Height, 93, kg, 01/28/22 14:55:00 EDT, Dry Weight Start Date: 04/08/22 Status: Ordered rosuvastatin 20 mg oral tablet 1 tablet, By Mouth, Daily, # 90 tablet, 1 Refills, Maintenance, 05/21/22 13:33:00 EST, [facility], 175, cm, 05/09/22 11:08:00 EDT, Height, 93, kg, 01/28/22 14:55:00 EDT, Dry Weight Start Date: 05/21/22 Status: Ordered SEROquel 100 mg oral tablet 100 mg, 1, tablet, By Mouth, 2 times a day, PRN, # 1 tablet, Refills 2, Tot. Refills 2, Maintenance, Anxiety, 09/21/19 10:41:00 EDT, Route to Pharmacy Electronically, [facility]/pharmacy #[id number], 172, cm, 09/05/19 16:17:00 [...] 524 weeks therapy with sofosbuvir/weight based ribavirin 05402 inferolateral stent bare metal circumflex 7DR Seanverno sx;Dr Schwartz 8hyperplatic polyp repeat screening in 2025 9repeat colonoscopy in 5 years Diagnosis Diagnosis Type Effective Dates Health Status Clinical Service Informant Hypertension Discharge Diagnosis 07/17/22 Hyperlipidemia Discharge Diagnosis 07/17/22 Type 2 diabetes mellitus with diabetic nephropathy Discharge Diagnosis 07/17/22 Insulin long-term use Discharge Diagnosis 07/17/22 History of alcoholism Discharge Diagnosis 07/17/22 Ex-cigarette smoker quit May 2019 LDCT Discharge Diagnosis 07/17/22 CKD (chronic kidney disease) stage 4, GFR 15-29 ml/min Discharge Diagnosis 07/17/22 ASHD; MS 2012/stent circumflex vessel cath;abdelrahman 2019 Discharge Diagnosis 07/17/22 Bipolar disorder Discharge Diagnosis 07/17/22 Chronic back pain DJD Discharge Diagnosis 07/19/22 Vital Signs Most recent to oldest [Reference Range]: 1 Height 175 cm (07/17/22 10:33 AM) Weight 86.3 kg (07/17/22 10:33 AM) Oxygen Saturation [94-100 %] 98 % (07/17/22 10:33 AM) Pulse Rate [55-90 bpm] 60 bpm (07/17/22 10:33 AM) Body Mass Index [18.5-24.99 kg/m2] 28.18 kg/m2 *H* (07/17/22 10:33 AM) Blood Pressure [90-138/55-84 mm Hg] 118/ 68mm Hg (07/17/22 10:33 AM) Mode of Delivery (Oxygen) Room air (07/17/22 10:33 AM) Blood pressure sites Arm, right (07/17/22 10:33 AM) Weight Obtained Via Standing scale (07/17/22 10:33 AM) Social History Social History Type Response [...] Role: Lifetime Consulting Physician Address: Address: [address] [place] [address] [facility] [place], [place] [address] Name: Kelly Butler NP Position: [facility] PCO Associate Professional Member Role: PCP Address: Address: [address] [place] [id number]- [place] Name: Kristin Mckenzie Position: [facility] Outreach Member Role: Lifetime Consulting Physician Name: Prieto Tobin RN Position: [facility] RN Member Role: Primary Care Nurse Name: Jonn Hui DO Position: [facility] Renal MD Member Role: Lifetime Consulting Physician Address: Address: [address] [place], [place] [address] [place], [place] [address] Name: Zafar CALVO, Luis Angel S Position: [facility] ED RN W/OE and Tasks Member Role: Primary Care Nurse Name: Tamie Baird RN Position: [facility] RN Member Role: Primary Care Nurse Care Team Related Persons Name: CARLOS A BORDEN Address: [address] [place] [address] [place] Name: LEVI BORDEN Address: [address] [place] [address]
--- OUTSIDE RECORDS SUMMARY | 2024-06-01 12:09 | XMS_ITS | Continuity of Care Document ---
Author Organization [facility] Address [address] [place] [address]- Care Team Providers Care Manager Diversity Name Role Phone Carrie Kelly RIVERA Primary Care Physician [phone] [place] [facility] [place] 03/31/24 [facility] [address] [place] [address]- [place] Allergies, Adverse Reactions, Alerts Substance Reaction Severity Status Bee Stings Active Immunizations Given and Recorded Vaccine Date Status Refusal Reason SARS-CoV-2(COVID-19)mRNA-LNP vac([id number]) 12/31/23 Recorded SARS-CoV-2(COVID-19)mRNA-LNP vac(lhr521) 05/08/23 Recorded tetanus/diphtheria/pertussis, acel(Tdap) 10/15/23 Recorded tetanus/diphtheria/pertussis, [...] 02/03/23 Recorded zoster vaccine, inactivated 08/09/19 Recorded [id number] 12y+ bivalent booster vax 05/17/22 Recorded SARS-CoV-2 [...] adult vaccine 4 12/10/10 Given 1Result Comment: [id number] 2Result Comment: [id number] 3Admin Note: pt waited 10 mins post inj no adverse reaction noted.j a 4Admin Note: PT WAITED 10 MIN WITH NO ADVERSE REACTION. Medications albuterol 90 mcg/inh inhalation powder 1 puffs, Inhalation, Every 6 hours, PRN Wheezing/Shortness of Breath, # 1 each, 0 Refills, Maintenance, 02/15/24 13:38:00 EDT, Powder, [facility]/pharmacy #[id number], Partial fill upon patient request if the prescription is for a schedule II opioid drug., 1 puffs... Start Date: 02/15/24 Status: Ordered amLODIPine 10 mg oral tablet 10 mg, By Mouth, Daily, # 30 tablet, Refills 5, Tot. Refills 5, Maintenance, 03/11/24 11:59:00 EDT,Route to Pharmacy Electronically, [facility]/pharmacy #[id number], Partial fill upon patient request if the prescription is for a schedule II opioid drug., 168, cm,... Start Date: 03/11/24 Stop Date: 09/07/24 Status: Ordered aspirin 81 mg oral delayed release tablet 1 tablet, By Mouth, Daily, # 90 tablet, 1 Refills, Maintenance, 01/25/24 21:53:00 EDT, [facility]/pharmacy#[id number], 168, cm, 01/11/24 14:42:00 EDT, Height, 93, [...] 02/29/24 11:18:00 EDT, Route to Pharmacy Electronically, [facility]/pharmacy #[id number], Partial fill upon patient request if the prescriptio... Start Date: 02/29/24 Stop Date: 03/14/24 Status: Ordered D3 50 mcg (2000 intl units) oral capsule 1 capsule, By Mouth, Daily, # 90 capsule, 0 Refills, Maintenance, 12/09/23 14:09:00 EDT, [facility]/pharmacy #[id number], 168, cm, 10/27/23 15:34:00 EDT, Height, 93, kg, 01/28/22 14:55:00 EDT, Dry Weight Start Date: 12/09/23 Status: Ordered Daily Simone oral tablet 1 tablet, By Mouth, Daily, # 90 tablet, 1 Refills, Maintenance, 03/17/24 9:34:00 EDT, [facility]/pharmacy #[id number], 90, 1 tablet By Mouth Daily, 168, cm, 03/17/24 9:26:00 EDT, Height Start Date: 03/17/24 Status: Ordered dapagliflozin 10 mg oral tablet 1 tablet = 10 mg, By Mouth, Daily, # 30 tablet, 0 Refills, Maintenance, 01/11/24 14:46:00 EDT, Tablet, [facility]/pharmacy #[id number], Partial fill upon patient request if the prescription is for a schedule II opioid drug., 168, cm, 01/11/24 14:42:00 EDT, Height,... Start Date: 01/11/24 Status: Ordered Flonase Allergy Relief 50 mcg/inh nasal spray See Instructions, 1 sprays Daily in each nostril, # 16 Gm, 0 Refills, Maintenance, 02/15/24 13:39:00 EDT, [facility]/pharmacy #[id number], Partial fill upon patient request if the prescription is for a schedule II opioid drug., 168, cm, 02/03/24 10:41:00 EDT, Height Start Date: 02/15/24 Status: Ordered folic acid 1 mg oral tablet 1, tablet, By Mouth, Daily, # 90 tablet, Refills 1, Tot. Refills 1, Maintenance, 02/17/24 7:23:00 EDT, Route to Pharmacy Electronically, [facility]/pharmacy #[id number], 168, cm, 02/15/24 13:43:00 EDT, Height [...] 01/21/19 11:25:36 EDT, Route to Pharmacy Electronically, [id number], [facility]/pharmacy #[id number] Start Date: 01/21/19 Stop Date: 05/21/19 Status: Ordered lisinopril 10 mg oral tablet 10 mg, 1, tablet, By Mouth, Daily, for 30 days, DECREASED STRENGTH, # 30 tablet, Refills 0, Tot. Refills 0, Acute 04/16/24 9:47:00 EDT, 03/17/24 9:47:00 EDT, Route to Pharmacy Electronically, [facility]/pharmacy #[id number], 168, cm, 03/17/24 9:46:00 EDT, Height [...] tablet, 0 Refills, Maintenance, 03/17/24 14:24:00 EDT, [facility]/pharmacy #[id number], 168, cm, 03/17/24 9:46:00 EDT, Height [...] 15 Unknown, 2 Refills, 01/12/24 14:36:00 EDT, [facility]/pharmacy #[id number], MAX DAILY DOSE 54 UNITS, 168, [...] mL, 0 Refills, Maintenance, 02/02/24 15:28:00 EDT, [place], [facility]/pharmacy #[id number], Partial fill upon patient... Start Date: 02/02/24 Status: Ordered Pen [place], 31 G x 5 mm BD Ultra [...] Refills, Maintenance, 02/04/24 16:39:00 EDT, [facility], 168, cm, 02/03/24 10:41:00 EDT, Height Start [...] 524 weeks therapy with sofosbuvir/weight based ribavirin 54742 inferolateral stent bare metal circumflex 7DR Molddoverno [...] Name: Jeffrey Mccoy MD Position: [facility] Renal MD Member Role: Lifetime Consulting Physician Address: Address: [address] [place], [place] [address] [place], [place] [address] Name: Kelly Butler NP Position: [facility] PCO Associate Professional Member Role: PCP Address: Address: [address] [place] [address]- Name: Kristin Mckenzie Position: [facility] Outreach Member Role: Lifetime Consulting Physician Name: Fortunato Sin RN Position: [facility] RN Member Role: Primary Care Nurse Name: Nury Watts RN Position: [facility] RN Member Role: Primary Care Nurse Name: Antonia Mena NP Position: [facility] Associate Professional Member Role: Lifetime Consulting Provider Address: Address: [address] [place], [place] [address] [facility] [place], [place] [address] Name: Prieto Tobin RN Position: [facility] RN Member Role: Primary Care Nurse Name: Ashleigh Reynoso RN Position: [facility] RN Member Role: Primary Care Nurse Name: Jonn Hui DO Position: [facility] Renal MD Member Role: Lifetime Consulting Physician Address: Address: [address] [place] [address] [address] [facility] [place], [place] [address] Name: Zafar CALVO, Luis Angel Rojas Position: S RN Member Role: Primary Care Nurse Name: Brandan Nogueira RN Position: S RN Member Role: Primary Care Nurse Care Team Related Persons Name: CARLOS A BORDEN Address: home [address] [place] [address] Name: LEVI BORDEN Address: home [address] [place] [address]
--- OUTSIDE RECORDS SUMMARY | 2024-06-01 12:09 | XMS_ITS | Continuity of Care Document ---
Author Organization [facility] Shawn Lazaro lt Address [address] [place] [address]- Care Team Providers Care Trim Carpenter Name Role Phone Aylin HICKMAN, Ben Willis Primary Care Physician [phone] Encounter [facility] Date(s): 03/17/21 - 04/16/21 [facility] Adult [address] [place] [address]- Allergies, Adverse Reactions, Alerts Substance Reaction Severity [...] tablet, 11 Refills, Maintenance, 06/26/20 12:19:00 EST, [facility], 175, cm, 06/25/20 16:11:00 EST, Height, 83.6, [...] Refills, Maintenance, 01/23/21 11:08:00 EDT, CR Capsule, [facility]/pharmacy #[id number], 175.3, cm, 01/21/21 12:58:00 EDT, Height, 83.6, kg, 04/23/20 17:46:00EDT, Dry Weight Start Date: 01/23/21 Stop Date: 01/18/22 Status: Ordered cholecalciferol 2000 intl units oral capsule 1 capsule = 2,000 International_Units, By Mouth, Daily, # 30 capsule, 5 Refills, Maintenance, 11/02/20 10:48:00 EDT, Capsule, [facility]/pharmacy #[id number], 175, cm, 09/21/20 11:29:00 EDT, Height, 83.6, kg, 04/23/20 17:46:00 EDT, Dry Weight Start Date: 11/02/20 Status: Ordered cloNIDine 0.2 mg oral tablet 0.2 mg, 1, tablet, By Mouth, 2 times a day, # 60 tablet, Refills 5, Tot. Refills 5, Maintenance, 02/28/21 10:13:00 EDT, Route to Pharmacy Electronically, [facility]/pharmacy #[id number], 175.3, cm, 01/21/21 12:58:00 EDT, Height, 83.6, kg, 04/23/20 17:46:00 EDT, Start Date: 02/28/21 Status: Ordered Daily Simone oral tablet 1 tablet, By Mouth, Daily, # 30 tablet, 5 Refills, Maintenance, 09/19/20 8:25:00 EDT, Tablet, [facility]/pharmacy #[id number], 1 tablet By Mouth Daily,x30 days, 175, cm, 07/20/20 10:29:00 EST, Height, 83.6, kg, 04/23/20 17:46:00 EDT, Dry Weight Start Date: 09/19/20 Stop Date: 03/18/21 Status: Ordered docusate sodium 100 mg oral capsule 1 capsule, By Mouth, 2 times a day, PRN NEEDED FOR CONSTIPATION, # 60 capsule, 5 Refills, Maintenance, 01/22/21 12:45:00 EDT, [facility], 175.3, cm, 01/21/21 12:58:00 EDT, Height, 83.6, kg, 04/23/20 17:46:00 EDT, Dry Weight Start Date: 01/22/21 Status: Ordered folic acid 1 mg oral tablet 1, tablet, By Mouth, Daily, # 30 tablet, Refills 5, Tot. Refills 0, Maintenance, 01/18/21 14:44:00 EDT, Route to Pharmacy Electronically, [facility], 175, cm, 12/24/20 11:20:00 EDT, Height, 83.6, [...] 01/21/19 11:25:36 EDT, Route to Pharmacy Electronically, [id number], [facility]/pharmacy #[id number] Start Date: 01/21/19 Stop [...] tablet, 0 Refills, Maintenance, 03/22/21 12:39:00 EDT, [facility]/pharmacy #[id number], 175.2, cm, 03/18/21 10:48:00 EDT, Height, 88.3, kg, 03/12/21 9:16:00 EDT, Dry Weight Start Date: 03/22/21 Status: Ordered nicotine 2 mg oral transmucosal lozenge See Instructions, USE 1 LOZENGE UP TO EVERY 1 HOUR NEEDED FOR 10 DAYS, # 162 lozenge, 1 Refills,[facility], 10, USE 1 LOZENGE UP TO EVERY [...] 9:13:... Start Date: 02/01/20 Status: Ordered Pen [place], 31 G x 5 mm BD Ultra [...] tablet, 1 Refills, Maintenance, 01/08/21 14:43:00 EDT, [facility]/pharmacy#[id number], 175, cm, 12/24/20 11:20:00 EDT, Height, 83.6, kg, 04/23/20 17:46:00 EDT, Dry Weight Start Date: 01/08/21 Status: Ordered SEROquel 100 mg oral tablet 100 mg, 1, tablet, By Mouth, 2 times a day, # 60 tablet, Refills 2, Tot. Refills 2, Maintenance, 09/21/19 10:41:00 EDT, Route to Pharmacy Electronically, [facility]/pharmacy #[id number], 172, cm, 09/05/19 16:17:00 EST, [...] 1, 2 Active Cigarette smoker(Confirmed) Active ASHD; [place] 2012/stent circumfl ex vessel cath;abdelramhan 2018(Confirmed) 3 Active Epididymal cyst rt(Confirmed) 04/18/19 [...] 524 weeks therapy with sofosbuvir/weight based ribavirin 46180 inferolateral stent bare metal circumflex 7DR Marissa [...]
--- OUTSIDE RECORDS SUMMARY | 2024-06-01 12:09 | XMS_ITS | Continuity of Care Document ---
Author Organization [facility] Nando Escobar Lazaro lt Address [address] [place] [address]- Care Team Providers Care Chief Engineer Research Name Role Phone Carrie SLACKMANKelly Primary Care Physician [facility] Date(s): 02/19/23 - 03/21/23 [facility] Nando Escobar Adult [address] [place] [address]- Allergies, Adverse Reactions, Alerts Substance Reaction Severity [...] influenza virus vaccine, inactivated 04/16/10 Give n [id number] 12y+ bivalent booster vax 05/17/22 Recorded SARS-CoV-2 [...] tablet, 1 Refills, Maintenance, 12/30/22 14:35:00 EDT, [facility]/pharmacy#[id number], 175, cm, 10/09/22 16:51:00 EDT, Height, 93, [...] Refills, Maintenance, 01/07/23 21:36:00 EDT, [facility], 90, TAKE 1 TABLET BY MOUTH EVERY [...] capsule, 0 Refills, Maintenance, 12/30/22 14:30:00 EDT, [facility]/pharmacy #[id number], 175, cm, 10/09/22 16:51:00 EDT, Height, 93, kg, 01/28/22 14:55:00 EDT, Dry Weight Start Date: 12/30/22 Status: Ordered docusate sodium 100 mg oral capsule 1 capsule, By Mouth, 2 times a day, PRN NEEDED FOR CONSTIPATION, # 60 capsule, 5 Refills, Maintenance, 07/18/22 11:59:00 EST, [facility]/pharmacy #[id number], 175, cm, 07/17/22 10:33:00 EST, Height, 93, kg, 01/28/22 14:55:00 EDT, Dry Weight Start Date: 07/18/22 Status: Ordered Flonase 50 mcg/inh nasal spray 1 sprays, Nares, Both, 2 times a day, # 16 Gm, 0 Refills, Maintenance, 09/05/22 9:15:00 EST, [place],[facility]/pharmacy #[id number], Partial fill upon patient request if the prescription is for a schedule II opioid drug., 1 sprays Nares, Both 2 times a day, 175, c... Start Date: 09/05/22 Status: Ordered folic acid 1 mg oral tablet 1, tablet, By Mouth, Daily, # 90 tablet, Refills 1, Tot. Refills 1, Maintenance, 01/08/23 13:00:00 EDT, Route to Pharmacy Electronically, [facility]/pharmacy #[id number], 175, cm, 10/09/22 16:51:00 EDT, [...] 01/21/19 11:25:36 EDT, Route to Pharmacy Electronically, [id number], [facility]/pharmacy #[id number] Start Date: 01/21/19 Stop Date: 05/21/19 Status: Ordered lisinopril 40 mg oral tablet 1 tablet, By Mouth, Daily, # 90 tablet, 0 Refills, Maintenance, 12/29/22 11:59:00 EDT, [facility]/pharmacy#0843, 175, cm, 10/09/22 16:51:00 EDT, Height, 93, kg, 01/28/22 14:55:00 EDT, Dry Weight Start Date: 12/29/22 Status: Ordered Metoprolol Tartrate 50 mg oral tablet 1.5 tablet, By Mouth, 2 times a day, # 270 tablet, 1 Refills, Maintenance, 02/20/23 7:15:00 EDT, [facility], 175, cm, 10/09/22 16:51:00 EDT, Height, 93, kg, 01/28/22 14:55:00 EDT, Dry Weight Start Date: 02/20/23 Status: Ordered nitroglycerin 0.4 mg sublingual tablet See Instructions, DISSOLVE 1 UNDER TONGUE EVERY 5 MINUTES NEEDED FOR CHEST PAIN CALL MD AFTER TAKING 3 TABS IN TOTAL IN A DAY, # 100 tablet, 0 Refills, Maintenance, 10/03/22 15:53:00 EDT, [facility]/pharmacy #[id number], 175, cm, 09/17/22 13:59:00 EDT, Height,... Start Date: 10/03/22 Status: Ordered NovoLOG FlexPen 100 units/mL injectable solution See Instructions, INJECT 0-18 UNITS SUBCUTANEOUSLY WITH MEALS FOR SLIDING SCALES, # 15 Unknown, 2 Refills, 11/07/22 0:09:00 EDT, [facility]/pharmacy #[id number], 175, cm, 10/09/22 16:51:00 EDT, Height, 93, kg, 01/28/22 14:55:00 EDT, Dry Weight Start Date: 11/07/22 Status: Ordered Pen [place], 31 G x 5 mm BD Ultra [...] 2 Refills, Maintenance, 08/07/22 12:55:00EST, Capsule, [facility]/pharmacy #[id number], 175, cm, 07/17/22 10:33:00 EST, Height, 93, kg, 01/28/22 14:55:00EDT, Dry Weight Start Date: 08/07/22 Status: Ordered rosuvastatin 20 mg oral tablet 1 tablet, By Mouth, Daily, # 90 tablet, 0 Refills, Maintenance, 12/30/22 14:34:00 EDT, [facility]/pharmacy#0843, 175, cm, 10/09/22 16:51:00 EDT, Height, 93, kg, 01/28/22 14:55:00 EDT, Dry Weight Start Date: 12/30/22 Status: Ordered Senna 8.6 mg oral tablet 1 or 2 tablets, By Mouth, Daily at bedtime, PRN, # 60 tablet, Refills 5, Tot. Refills 5, Maintenance, Constipation, 11/03/22 15:04:00 EDT, Route to Pharmacy Electronically, [facility]/pharmacy #[id number] Tablet,Partial fill upon patient request if [...] 9 Unknown, 1 Refills, 01/21/22 15:39:00 EDT, [facility]/pharmacy #[id number], 175.2, cm, 12/18/21 14:10:00 EDT, Height... Start Date: 01/21/22 Status: Ordered Trulicity Pen 0.75 mg/0.5 mL subcutaneous solution 0.5 mL = 0.75 mg, Subcutaneous Injection, Every week, # 2.5 mL, 1 Refills, Maintenance, 01/13/23 9:59:00 EDT, Solution, [facility]/pharmacy #[id number], 175, cm, 10/09/22 16:51:00 EDT, Height, 93, kg, 01/28/22 14:55:00 EDT, Dry Weight Start Date: 01/13/23 Status: Ordered Vitamin D3 2000 intl units oral capsule 1 capsule, By Mouth, Daily, # 90 capsule, 1 Refills, Maintenance, 11/14/22 12:24:00 EDT, [facility]/pharmacy #[id number], 175, cm, 10/09/22 16:51:00 EDT, [...] 524 weeks therapy with sofosbuvir/weight based ribavirin 74825 inferolateral stent bare metal circumflex 7DR Molddoverno [...] Role: Lifetime Consulting Physician Address: Address: [address] [place] [address] [facility] [place] [address]- Name: Kelly Butler NP Position: [facility] PCO Associate Professional Member Role: PCP Address: Address: [address] [place] [address]- Name: Kristin Mckenzie Position: [facility] Outreach Member Role: Lifetime Consulting Physician Name: Prieto Tobin RN Position: [facility] RN Member Role: Primary Care Nurse Name: Jonn Hui DO Position: [facility] Renal MD Member Role: Lifetime Consulting Physician Address: Address: [address] [place], [place] [address] [place] [address]- Name: Zafar RN, Luis Angel Rojas Position: [facility] RN Member Role: Primary Care Nurse Care Team Related Persons Name: CARLOS A BORDEN Address: home [address] [place] [address] Name: LEVI BORDEN Address: home [address] [place] [address]
--- OUTSIDE RECORDS SUMMARY | 2024-06-01 12:09 | XMS_ITS | Continuity of Care Document ---
Author Organization [facility] Address [address] [place] [address]- Care Team Providers Care Compensator Name Role Phone Aylin HICKMAN, Ben Willis Primary Care Physician [phone] Encounter [facility] Date(s): 06/21/20 - 07/21/20 [facility] [address] [place] [id number] Allergies, Adverse Reactions, Alerts [...] 10:48:07 EST, Aerosol, Route to Pharmacy Electronically, [id number], [facility]/pharmacy #[id number], 180, cm, 06/17/19 10:36:11 EST, Height Start Date: 06/17/19 Status: Ordered aspirin 81 mg oral delayed release tablet 1 tablet, By Mouth, Daily, # 30 tablet, 11 Refills, Maintenance, 06/26/20 12:19:00 EST, [facility], 175, cm, 06/25/20 16:11:00 EST, Height, 83.6, [...] Maintenance, 05/25/20 11:53:00 EST, Capsule, [facility]/pharmacy #[id number], 175, cm, 05/24/20 12:46:00 EST, Height, 83.6, kg, 04/23/20 17:46:00 EDT, Dry Weight Start Date: 05/25/20 Status: Ordered cloNIDine 0.2 mg oral tablet 0.2 mg, 1, tablet, By Mouth, 2 times a day, # 60 tablet, Refills 2, Tot. Refills 2, Maintenance, 06/22/20 10:52:00 EST, Route to Pharmacy Electronically, [facility]/pharmacy #[id number], 175, cm, 05/24/20 12:46:00 [...] Electronically, [facility]/pharmacy #[id number], 175, cm, 06/25/20 16:11:00 [...] 06/21/20 16:44:00 EST, REC Powder, [facility]/pharmacy #[id number], Partial fill upon patient request if the prescription is for a schedule II opioid drug., 240 mL By Mouth Daily,Instr... Start Date: 06/21/20 Status: Ordered LaMICtal 100 mg oral tablet 100 mg, 1, tablet, By Mouth, 2 times a day, # 60 tablet, Refills 3, Tot. Refills 3, Maintenance, 01/21/19 11:25:36 EDT, Route to Pharmacy Electronically, [id number], [facility]/pharmacy #0843 Start [...] Refills, Maintenance, 07/12/20 15:43:00 EST, [facility]/pharmacy #[id number], [...] Soft Stop, 06/01/20 13:51:00 EST, [facility]/pharmacy #[id number], 175, cm, 05/24/20 12:46:00 [...] 9:13:... Start Date: 02/01/20 Status: Ordered Pen [place], 31 G x 5 mm BD Ultra [...] Tablet, this was previously sent to [facility] Start Date: 05/17/19 Stop Date: 05/11/20 [...] 524 weeks therapy with sofosbuvir/weight based ribavirin 73175 inferolateral stent bare metal circumflex 7DR Molddoverno [...]
--- OUTSIDE RECORDS SUMMARY | 2024-06-01 12:09 | XMS_ITS | Continuity of Care Document ---
Author Organization [facility] Shawn Lazaro lt Address [address] [place] [address]- Care Team Providers Care Tenant Coordinator Name Role Phone Aylin HICKMAN, Ben Willis Primary Care Physician [phone] Encounter [facility] Date(s): 06/24/21 - 07/24/21 [facility] Palominoley Adult [address] [place] [address]- Allergies, Adverse Reactions, Alerts Substance Reaction Severity [...] Refills, Maintenance, 06/26/20 12:19:00 EST, [facility], 175, cm, 06/25/20 16:11:00 EST, Height, 83.6, [...] Refills, Maintenance, 01/23/21 11:08:00 EDT, CR Capsule, [facility]/pharmacy #0843, 175.3, cm, 01/21/21 12:58:00 EDT, Height, 83.6, kg, 04/23/20 17:46:00EDT, Dry Weight Start Date: 01/23/21 Stop Date: 01/18/22 Status: Ordered cholecalciferol 2000 intl units oral capsule 1 capsule = 2,000 International_Units, By Mouth, Daily, # 30 capsule, 5 Refills, Maintenance, 05/15/21 13:02:00 EST, Capsule, [facility]/pharmacy #0843, 175.2, cm, 03/18/21 10:48:00 EDT, Height, 88.3, kg, 03/12/21 9:16:00 EDT, Dry Weight Start Date: 05/15/21 Status: Ordered cloNIDine 0.2 mg oral tablet 0.2 mg, 1, tablet, By Mouth, 2 times a day, # 60 tablet, Refills 5, Tot. Refills 5, Maintenance, 06/24/21 12:51:00 EST, Route to Pharmacy Electronically, [facility]/pharmacy #0843, 175.2, cm, 06/07/21 9:51:00 EST, Height, 88.3, kg, 03/12/21 9:16:00 EDT, Dry... Start Date: 06/24/21 Status: Ordered Daily Simone oral tablet 1 tablet, By Mouth, Daily, # 30 tablet, 5 Refills, Maintenance, 09/19/20 8:25:00 EDT, Tablet, [facility]/pharmacy #[id number], 1 tablet By Mouth Daily,x30 days, 175, cm, 07/20/20 10:29:00 EST, Height, 83.6, kg, 04/23/20 17:46:00 EDT, Dry Weight Start Date: 09/19/20 Stop Date: 03/18/21 Status: Ordered docusate sodium 100 mg oral capsule 1 capsule, By Mouth, 2 times a day, PRN NEEDED FOR CONSTIPATION, # 60 capsule, 5 Refills, Maintenance, 06/05/21 15:57:00 EST, [facility]/pharmacy #0843, 175.2, cm, 05/27/21 11:26:00 EST, Height, 88.3, kg, 03/12/21 9:16:00 EDT, Dry Weight Start Date: 06/05/21 Status: Ordered folic acid 1 mg oral tablet 1, tablet, By Mouth, Daily, # 30 tablet, Refills 5, Tot. Refills 0, Maintenance, 01/18/21 14:44:00 EDT, Route to Pharmacy Electronically, [facility], 175, cm, 12/24/20 11:20:00 EDT, Height, 83.6, [...] tablet, 5 Refills, Maintenance, 06/05/21 15:57:00 EST, [facility]/pharmacy #0843, 175.2, cm, 05/27/21 11:26:00 EST, Height, 88.3, kg, 03/12/21 9:16:00 EDT, Dry Weight Start Date: 06/05/21 Status: Ordered LaMICtal 100 mg oral tablet 100 mg, 1, tablet, By Mouth, 2 times a day, # 60 tablet, Refills 3, Tot. Refills 3, Maintenance, 01/21/19 11:25:36 EDT, Route to Pharmacy Electronically, [id number], [facility]/pharmacy #0843 Start [...] 3 Refills, Maintenance, 06/24/21 16:13:00 EST, Tablet, [facility]/pharmacy #[id number], Partial fill upon patient request if the prescription is for a schedule II opioid drug., 175.2, cm, 06/07/21 9:51:00 EST, Height... Start Date: 06/24/21 Status: Ordered Metoprolol Tartrate 50 mg oral tablet See Instructions, TAKE 1 + 1/2 TABLETS BY MOUTH 2 TIMES A DAY, # 270 tablet, 0 Refills, 06/24/21 10:42:00 EST, [facility]/pharmacy #[id number], 175.2, cm, 06/07/21 9:51:00 EST, Height, 88.3, kg, 03/12/21 9:16:00 EDT, Dry Weight Start Date: 06/24/21 Status: Ordered nicotine 2 mg oral transmucosal lozenge See Instructions, USE 1 LOZENGE UP TO EVERY 1 HOUR NEEDED FOR 10 DAYS, # 162 lozenge, 0 Refills,Maintenance, 07/15/21 11:21:00 EST, [facility]/pharmacy #0843, 10, USE 1 LOZENGE UP TO [...] SLIDING SCALES, # 15 Unknown, 2 Refills, [facility] STORE 12[facility], 175.2, cm, 05/27/21 11:26:00 EST, Height, 88.3, kg, 03/12/21 9:16:00 EDT, Dry Weight Start Date: 06/04/21 Status: Ordered Pen [place], 31 G x 5 mm BD Ultra [...] 5 Refills, Maintenance, 06/10/21 12:32:00 EST, Capsule, [facility]/pharmacy #[id number], 175.2, cm, 06/07/21 9:51:00 EST, Height, 88.3, kg, 03/12/21 9:16:00 EDT, Dry Weight Start Date: 06/10/21 Status: Ordered pregabalin 75 mg oral capsule 1 capsule = 75 mg, By Mouth, 2 times a day, # 60 capsule, 5 Refills, Maintenance, 06/07/21 13:14:00EST, Capsule, [facility]/pharmacy #[id number], 175.2, cm, 06/07/21 9:51:00 EST, Height, 88.3, kg, 03/12/21 9:16:00 EDT, Dry Weight Start Date: 06/07/21 Status: Ordered rosuvastatin 20 mg oral tablet 1 tablet, By Mouth, Daily, # 90 tablet, 1 Refills, Maintenance, 01/08/21 14:43:00 EDT, [facility]/pharmacy#0843, 175, cm, 12/24/20 11:20:00 EDT, Height, 83.6, [...] Active Glomerulonephritis,mesangial proliferative/fibrillary(Confirmed) 1, 2 Active ASHD; [place] 2012/stent circumfl ex vessel cath;abdelrahman 2018(Confirmed) 3 [...] 524 weeks therapy with sofosbuvir/weight based ribavirin 22288 inferolateral stent bare metal circumflex 7DR Molddoverno [...]
--- OUTSIDE RECORDS SUMMARY | 2024-06-01 12:09 | XMS_ITS | Continuity of Care Document ---
Author Organization [facility] Address [address] [place] [id number]- Care Team Providers Care Home Health Care Worker Name Role Phone Aylin HICKMAN, Ben Willis Primary Care Physician Encounter [facility] Date(s): 03/15/21 - 04/14/21 [facility] [address] [place] [address] [place] Allergies, Adverse Reactions, Alerts Substance Reaction [...] tablet, 11 Refills, Maintenance, 06/26/20 12:19:00 EST, [facility], 175, cm, 06/25/20 16:11:00 EST, Height, 83.6, [...] Maintenance, 01/23/21 11:08:00 EDT, CR Capsule, [facility]/pharmacy #[id number], 175.3, cm, 01/21/21 12:58:00 EDT, Height, 83.6, kg, 04/23/20 17:46:00EDT, Dry Weight Start Date: 01/23/21 Stop Date: 01/18/22 Status: Ordered cholecalciferol 2000 intl units oral capsule 1 capsule = 2,000 International_Units, By Mouth, Daily, # 30 capsule, 5 Refills, Maintenance, 11/02/20 10:48:00 EDT, Capsule, [facility]/pharmacy #[id number], 175, cm, 09/21/20 11:29:00 EDT, Height, 83.6, kg, 04/23/20 17:46:00 EDT, Dry Weight Start Date: 11/02/20 Status: Ordered cloNIDine 0.2 mg oral tablet 0.2 mg, 1, tablet, By Mouth, 2 times a day, # 60 tablet, Refills 5, Tot. Refills 5, Maintenance, 02/28/21 10:13:00 EDT, Route to Pharmacy Electronically, [facility]/pharmacy #[id number], 175.3, cm, 01/21/21 12:58:00 EDT, Height, 83.6, kg, 04/23/20 17:46:00 EDT, Start Date: 02/28/21 Status: Ordered Daily Simone oral tablet 1 tablet, By Mouth, Daily, # 30 tablet, 5 Refills, Maintenance, 09/19/20 8:25:00 EDT, Tablet, [facility]/pharmacy #[id number], 1 tablet By Mouth Daily,x30 days, 175, cm, 07/20/20 10:29:00 EST, Height, 83.6, kg, 04/23/20 17:46:00 EDT, Dry Weight Start Date: 09/19/20 Stop Date: 03/18/21 Status: Ordered docusate sodium 100 mg oral capsule 1 capsule, By Mouth, 2 times a day, PRN NEEDED FOR CONSTIPATION, # 60 capsule, 5 Refills, Maintenance, 01/22/21 12:45:00 EDT, [facility], 175.3, cm, 01/21/21 12:58:00 EDT, Height, 83.6, kg, 04/23/20 17:46:00 EDT, Dry Weight Start Date: 01/22/21 Status: Ordered folic acid 1 mg oral tablet 1, tablet, By Mouth, Daily, # 30 tablet, Refills 5, Tot. Refills 0, Maintenance, 01/18/21 14:44:00 EDT, Route to Pharmacy Electronically, [facility], 175, cm, 12/24/20 11:20:00 EDT, Height, 83.6, [...] cm, 12/14/19 8:02:00 EDT, Height, 97.8, kg, 02/06/20 5:24:00 EST, Dry Weight Start Date: 02/27/20 Status: Ordered LaMICtal 100 mg oral tablet 100 mg, 1, tablet, By Mouth, 2 times a day, # 60 tablet, Refills 3, Tot. Refills 3, Maintenance, 01/21/19 11:25:36 EDT, Route to Pharmacy Electronically, [id number], [facility]/pharmacy #[id number] Start Date: 01/21/19 Stop [...] tablet, 0 Refills, Maintenance, 03/22/21 12:39:00 EDT, [facility]/pharmacy #[id number], 175.2, cm, 03/18/21 10:48:00 EDT, Height, 88.3, kg, 03/12/21 9:16:00 EDT, Dry Weight Start Date: 03/22/21 Status: Ordered nicotine 2 mg oral transmucosal lozenge See Instructions, USE 1 LOZENGE UP TO EVERY 1 HOUR NEEDED FOR 10 DAYS, # 162 lozenge, 1 Refills,[facility], 10, USE 1 LOZENGE UP TO EVERY [...] 9:13:... Start Date: 02/01/20 Status: Ordered Pen [place], 31 G x 5 mm BD Ultra [...] tablet, 1 Refills, Maintenance, 01/08/21 14:43:00 EDT, [facility]/pharmacy#[id number], 175, cm, 12/24/20 11:20:00 EDT, Height, 83.6, kg, 04/23/20 17:46:00 EDT, Dry Weight Start Date: 01/08/21 Status: Ordered SEROquel 100 mg oral tablet 100 mg, 1, tablet, By Mouth, 2 times a day, # 60 tablet, Refills 2, Tot. Refills 2, Maintenance, 09/21/19 10:41:00 EDT, Route to Pharmacy Electronically, [facility]/pharmacy #[id number], 172, cm, 09/05/19 16:17:00 [...] 1, 2 Active Cigarette smoker(Confirmed) Active ASHD; [place] 2012/stent circumfl ex vessel [...] 524 weeks therapy with sofosbuvir/weight based ribavirin 54840 inferolateral stent bare metal circumflex 7DR Marissa [...]
--- OUTSIDE RECORDS SUMMARY | 2024-06-01 12:09 | XMS_ITS | Continuity of Care Document ---
Author Organization [facility] Shawn Lazaro Address [address] [place] [address]- Care Team Providers Care Printed Circuit Designer Name Role Phone Ben Viera MD Primary Care Physician [phone] Encounter [facility] Date(s): 10/22/20 - 11/30/20 [facility] Adult [address] [place] [address]- Attending Physician: Ben Viera MD Allergies, Adverse [...] 10:48:07 EST, Aerosol, Route to Pharmacy Electronically, [id number], [facility]/pharmacy #[id number], 180, cm, 06/17/19 10:36:11 EST, Height Start Date: 06/17/19 Status: Ordered aspirin 81 mg oral delayed release tablet 1 tablet, By Mouth, Daily, # 30 tablet, 11 Refills, Maintenance, 06/26/20 12:19:00 EST, [facility], 175, cm, 06/25/20 16:11:00 EST, Height, 83.6, [...] Refills, Maintenance, 01/02/20 15:47:00 EDT, CR Capsule, [facility]/pharmacy #[id number], 172, cm, 12/14/19 8:02:00 EDT, Height, 97.8, kg, 08/11/19 5:24:00 EST, Dry Weight Start Date: 01/02/20 Stop Date: 12/27/20 Status: Ordered cholecalciferol 2000 intl units oral capsule 1 capsule = 2,000 International_Units, By Mouth, Daily, # 30 capsule, 5 Refills, Maintenance, 11/02/20 10:48:00 EDT, Capsule, [facility]/pharmacy #[id number], 175, cm, 09/21/20 11:29:00 EDT, Height, 83.6, kg, 04/23/20 17:46:00 EDT, Dry Weight Start Date: 11/02/20 Status: Ordered cloNIDine 0.2 mg oral tablet 0.2 mg, 1, tablet, By Mouth, 2 times a day, # 60 tablet, Refills 5, Tot. Refills 5, Maintenance, 09/09/20 19:43:00 EST, Route to Pharmacy Electronically, [facility]/pharmacy #[id number], 175, cm, 07/20/20 10:29:00 EST, Height, 83.6, kg, 04/23/20 17:46:00 EDT, Dry... Start Date: 09/09/20 Status: Ordered Colace sodium 100 mg oral capsule 100 mg, 1, capsule, By Mouth, 2 times a day, PRN, # 60 capsule, Refills 5, Tot. Refills 5, Maintenance, for constipation, 02/27/20 15:25:00 EDT, Route to Pharmacy Electronically, [facility]/pharmacy #[id number], 172, cm, 12/14/19 8:02:00 EDT, Height, 97.8, kg, 02... Start Date: 02/27/20 Status: Ordered Crestor 20 mg oral tablet 1 tablet = 20 mg, By Mouth, Daily, # 90 tablet, 3 Refills, Maintenance, 01/02/20 15:46:00 EDT, Tablet, [facility]/pharmacy #[id number], 172, cm, 12/14/19 8:02:00 EDT, Height, 97.8, kg, 08/11/19 5:24:00 EST, Dry Weight Start Date: 01/02/20 Status: Ordered Daily Simone oral tablet 1 tablet, By Mouth, Daily, # 90 tablet, 3 Refills, Maintenance, 09/21/20 11:35:00 EDT, Tablet, [facility]/pharmacy #[id number], Partial fill upon patient request if the prescription is for a schedule II opioid drug., 1 tablet By Mouth Daily, 175, cm, 09/21/20 11:2... Start Date: 09/21/20 Status: Ordered Daily Simone oral tablet 1 tablet, By Mouth, Daily, # 30 tablet, 5 Refills, Maintenance, 09/19/20 8:25:00 EDT, Tablet, [facility]/pharmacy #[id number], 1 tablet By Mouth Daily,x30 days, 175, cm, 07/20/20 10:29:00 EST, Height, 83.6, kg, 04/23/20 17:46:00 EDT, Dry Weight Start Date: 09/19/20 Stop Date: 03/18/21 Status: Ordered folic acid 1 mg oral tablet 1 mg, 1, tablet, By Mouth, Daily, # 30 tablet, Refills 5, Tot. Refills 5, Maintenance, 07/04/20 13:24:00 EST, Route to Pharmacy Electronically, [facility]/pharmacy #[id number], 175, cm, 06/25/20 16:11:00 [...] tablet, 5 Refills, Maintenance, 02/27/20 15:23:00 EDT, [facility]/pharmacy #[id number], 172, cm, 12/14/19 8:02:00 EDT, Height, 97.8, kg, 08/11/19 5:24:00 EST, Dry Weight Start Date: 02/27/20 Status: Ordered Golytely - oral powder for reconstitution 240 mL, By Mouth, Daily, bowel instruction, # 4,000 mL, 0 Refills, Maintenance, 06/21/20 16:44:00 EST, REC Powder, [facility]/pharmacy #[id number], Partial fill upon patient request if the prescription is for a schedule II opioid drug., 240 mL By Mouth Daily,Instr... Start Date: 06/21/20 Status: Ordered LaMICtal 100 mg oral tablet 100 mg, 1, tablet, By Mouth, 2 times a day, # 60 tablet, Refills 3, Tot. Refills 3, Maintenance, 01/21/19 11:25:36 EDT, Route to Pharmacy Electronically, [id number], [facility]/pharmacy #[id number] Start Date: 01/21/19 [...] tablet, 0 Refills, Maintenance, 11/16/20 11:46:00 EDT, [facility] STORE 62026, 175, cm, 09/21/20 11:29:00 EDT, Height, 83.6, kg, 04/23/20 17:46:00 EDT, Dry Weight Start Date: 11/16/20 Status: Ordered nicotine 2 mg oral transmucosal lozenge See Instructions, suck, up to q1 hrs 10 daily, # 162 lozenge, 1 Refills, Maintenance, 11/16/20 12:04:00 EDT, [facility]/pharmacy #[id number], suck, up to q1 hrs 10 daily, 175, cm, 09/21/20 11:29:00 EDT, Height, 83.6, kg, 04/23/20 17:46:00 EDT, Dry Weight Start Date: 11/16/20 Status: Ordered nicotine 4 mg oral transmucosal lozenge 1 lozenge = 4 mg, By Mouth, Every hour, dispense 2 boxes of 81 count as directed on package labeling, # 162 lozenge, 3 Refills, Maintenance, 09/25/20 14:39:00 EDT, [facility]/pharmacy #[id number], 1 lozenge [...] 2 Refills, Soft Stop, 06/01/20 13:51:00 EST, [facility]/pharmacy #[id number], 175, cm, 05/24/20 12:46:00 [...] 9:13:... Start Date: 02/01/20 Status: Ordered Pen [place], 31 G x 5 mm BD Ultra [...] EST, Tablet, this was previously sent to [facility] pharmacy Start Date: 05/17/19 Stop Date: [...] Glomerulonephritis,mesangial proliferative/fibrillary(Confirmed) 1, 2 Active ASHD; [place]/stent circumfl ex 2013/3vessel cath;abdelrahman 2018(Confirmed) 3 [...] 524 weeks therapy with sofosbuvir/weight based ribavirin 88156 inferolateral stent bare metal circumflex 7DR Molddoverno [...]
--- OUTSIDE RECORDS SUMMARY | 2024-06-01 12:09 | XMS_ITS | Continuity of Care Document ---
Author Organization [facility] Shawn Lazaro lt Address [address] [place] [address]- Care Team Providers Care Pharmacometrician Name Role Phone Carrie Kelly RIVERA Primary Care Physician Encounter [facility] Date(s): 05/15/23 - 06/14/23 [facility] Adult [address] [place] [address]- Allergies, Adverse Reactions, Alerts Substance Reaction Severity Status Bee Stings Active Immunizations Given and Recorded Vaccine Date Status Refusal Reason SARS-CoV-2(COVID-19)mRNA-LNP vac([id number]) 05/08/23 Recorded pneumococcal 20-valent conjugate vaccine 1 [...] 02/03/23 Recorded zoster vaccine, inactivated 08/09/19 Recorded [id number] 12y+ bivalent booster vax 05/17/22 Recorded SARS-CoV-2 [...] adult vaccine 4 12/10/10 Given 1Result Comment: [id number] 2Result Comment: [id number] 3Admin Note: pt waited 10 mins post inj no adverse reaction noted.j a 4Admin Note: PT WAITED 10 MIN WITH NO ADVERSE REACTION. MH Medications aspirin 81 mg oral delayed release tablet 1 tablet, By Mouth, Daily, # 90 tablet, 1 Refills, Maintenance, 06/02/23 11:42:00 EST, [facility]/pharmacy#[id number], 168, cm, 05/01/23 14:45:00 EDT, Height, 93, [...] Refills, Maintenance, 01/07/23 21:36:00 EDT, [facility], 90, TAKE 1 TABLET BY MOUTH EVERY [...] capsule, 0 Refills, Maintenance, 03/31/23 14:24:00 EDT, [facility]/pharmacy #0843, 175, cm, 10/09/22 16:51:00 EDT, Height, 93, kg, 01/28/22 14:55:00 EDT, Dry Weight Start Date: 03/31/23 Status: Ordered folic acid 1 mg oral tablet 1, tablet, By Mouth, Daily, # 90 tablet, Refills 1, Tot. Refills 1, Maintenance, 01/08/23 13:00:00 EDT, Route to Pharmacy Electronically, [facility]/pharmacy #[id number], 175, cm, 10/09/22 16:51:00 EDT, Height, [...] 01/21/19 11:25:36 EDT, Route to Pharmacy Electronically, [id number], [facility]/pharmacy #[id number] Start Date: 01/21/19 Stop Date: 05/21/19 Status: Ordered lamotrigine 100 mg oral tablet Refills 0, Maintenance, 05/01/23 15:28:00 EDT, Partial fill upon patient request if the prescription is for a schedule II opioid drug. Start Date: 05/01/23 Status: Ordered lisinopril 40 mg oral tablet 1 tablet, By Mouth, Daily, # 90 tablet, 0 Refills, Maintenance, 04/21/23 10:51:00 EDT, [facility], 175, cm, 10/09/22 16:51:00 EDT, Height, 93, [...] Refills, Maintenance, 02/20/23 7:15:00 EDT, [facility], 175, cm, 10/09/22 16:51:00 EDT, Height, 93, [...] Unknown, 2 Refills, 11/07/22 0:09:00 EDT, [facility]/pharmacy #[id number], 175, cm, 10/09/22 16:51:00 EDT, Height, 93, kg, 01/28/22 14:55:00 EDT, Dry Weight Start Date: 11/07/22 Status: Ordered Pen [place], 31 G x 5 mm BD Ultra [...] capsule, 0 Refills, Maintenance, 06/02/23 14:17:00 EST, [facility]/pharmacy #[id number], Partial fill upon patient request if the prescription is for a schedule II opioid drug., 168, cm, 05/01/23 14:45:00 EDT, Height, 93, k... Start Date: 06/02/23 Status: Ordered rosuvastatin 20 mg oral tablet 1 tablet, By Mouth, Daily, # 90 tablet, 1 Refills, Maintenance, 03/29/23 14:43:00 EDT, [facility], 175, cm, 10/09/22 16:51:00 EDT, Height, 93, [...] mild to moderate. 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 2012/DC 4secondary to hep C 524 weeks therapy with sofosbuvir/weight based ribavirin 93154 inferolateral stent bare metal circumflex 7DR Marissa [...] Name: Jeffrey Mccoy MD Position: [facility] Renal MD Member Role: Lifetime Consulting Physician Address: Address: [address] [place] [address] [facility] [place] [address]- Name: Kelly Butler NP Position: [facility] PCO Associate Professional Member Role: PCP Address: Address: [address] [place] [address]- Name: Kristin Mckenzie Position: [facility] Outreach Member Role: Lifetime Consulting Physician Name: Prieto Tobin RN Position: [facility] RN Member Role: Primary Care Nurse Name: Jonn Hui DO Position: [facility] Renal MD Member Role: Lifetime Consulting Physician Address: Address: [address] [place], [place] [id number] [place] [address]- Name: Zafar CALVO, Luis Angel Rojas Position: [facility] RN Member Role: Primary Care Nurse Care Team Related Persons Name: CARLOS A BORDEN Address: home [address] [place] [address] Name: LEVI BORDEN Address: home [address] [place] [address]
--- OUTSIDE RECORDS SUMMARY | 2024-06-01 12:09 | XMS_ITS | Continuity of Care Document ---
Author Organization [facility] Nando Escobar Lazaro lt Address [address] [place] [address]- Care Team Providers Care Senior Revenue Accountant Name Role Phone Aylin HICKMAN, Ben Willis Primary Care Physician [facility]counter [facility] Date(s): 08/21/21 - 09/20/21 [facility] Nando Escobar Adult [address] [place] [address]- Allergies, Adverse Reactions, Alerts Substance Reaction Severity [...] tablet, 5 Refills, Maintenance, 07/25/21 10:21:00 EST, [facility]/pharmacy#[id number], 175.2, cm, 06/07/21 9:51:00 EST, [...] Refills, Maintenance, 01/23/21 11:08:00 EDT, CR Capsule, [facility]/pharmacy #[id number], 175.3, cm, 01/21/21 12:58:00 EDT, Height, 83.6, kg, 04/23/20 17:46:00EDT, Dry Weight Start Date: 01/23/21 Stop Date: 01/18/22 Status: Ordered cholecalciferol 2000 intl units oral capsule 1 capsule = 2,000 International_Units, By Mouth, Daily, # 30 capsule, 5 Refills, Maintenance, 05/15/21 13:02:00 EST, Capsule, [facility]/pharmacy #[id number], 175.2, cm, 03/18/21 10:48:00 EDT, Height, 88.3, kg, 03/12/21 9:16:00 EDT, Dry Weight Start Date: 05/15/21 Status: Ordered cloNIDine 0.2 mg oral tablet 0.2 mg, 1, tablet, By Mouth, 2 times a day, # 60 tablet, Refills 5, Tot. Refills 5, Maintenance, 06/24/21 12:51:00 EST, Route to Pharmacy Electronically, [facility]/pharmacy #[id number], 175.2, cm, 06/07/21 9:51:00 EST, Height, 88.3, kg, 03/12/21 9:16:00 EDT, Dry... Start Date: 06/24/21 Status: Ordered Daily Simone oral tablet 1 tablet, By Mouth, Daily, # 30 tablet, 5 Refills, Maintenance, 07/29/21 13:53:00 EST, Tablet, [facility]/pharmacy #[id number], 1 tablet By Mouth Daily,x30 days, 175.2, cm, 06/07/21 9:51:00 EST, Height, 88.3, kg,03/12/21 9:16:00 EDT, Dry Weight Start Date: 07/29/21 Stop Date: 01/25/22 Status: Ordered docusate sodium 100 mg oral capsule 1 capsule, By Mouth, 2 times a day, PRN NEEDED FOR CONSTIPATION, # 60 capsule, 5 Refills, Maintenance, 06/05/21 15:57:00 EST, [facility]/pharmacy #[id number], 175.2, cm, 05/27/21 11:26:00 EST, Height, 88.3, kg, 03/12/21 9:16:00 EDT, Dry Weight Start Date: 06/05/21 Status: Ordered folic acid 1 mg oral tablet 1, tablet, By Mouth, Daily, # 30 tablet, Refills 5, Tot. Refills 5, Maintenance, 07/25/21 15:59:00 EST, Route to Pharmacy Electronically, [facility]/pharmacy #[id number], 175.2, cm, 06/07/21 9:51:00 [...] tablet, 5 Refills, Maintenance, 06/05/21 15:57:00 EST, [facility]/pharmacy #[id number], 175.2, cm, 05/27/21 11:26:00 EST, Height, 88.3, kg, 03/12/21 9:16:00 EDT, Dry Weight Start Date: 06/05/21 Status: Ordered LaMICtal 100 mg oral tablet 100 mg, 1, tablet, By Mouth, 2 times a day, # 60 tablet, Refills 3, Tot. Refills 3, Maintenance, 01/21/19 11:25:36 EDT, Route to Pharmacy Electronically, [id number], [facility]/pharmacy #[id number] Start Date: 01/21/19 [...] 3 Refills, Maintenance, 09/17/21 10:50:00 EDT, Tablet, [facility]/pharmacy #[id number], Partial fill upon patient request if the prescription is for a schedule II opioid drug., 175.2, cm, 07/31/21 11:20:00 EST, Heigh... Start Date: 09/17/21 Status: Ordered Metoprolol Tartrate 50 mg oral tablet See Instructions, TAKE 1 + 1/2 TABLETS BY MOUTH 2 TIMES A DAY, # 270 tablet, 0 Refills, 06/24/21 10:42:00 EST, [facility]/pharmacy #[id number], 175.2, cm, 06/07/21 9:51:00 EST, Height, 88.3, kg, 03/12/21 9:16:00 EDT, Dry Weight Start Date: 06/24/21 Status: Ordered nicotine 2 mg oral transmucosal lozenge See Instructions, USE 1 LOZENGE UP TO EVERY 1 HOUR NEEDED FOR 10 DAYS, # 162 lozenge, 0 Refills,Maintenance, 09/17/21 11:15:00 EDT, [facility]/pharmacy #[id number], 16, USE 1 LOZENGE UP TO EVERY 1 HOUR NEEDED FOR 10 DAYS, 175.2, cm, 07/31/21 11:20:00 EST, H... Start Date: 09/17/21 Status: Ordered nitroglycerin 0.4 mg sublingual tablet See Instructions, DISSOLVE 1 UNDER TONGUE EVERY 5 MINUTES NEEDED FOR CHEST PAIN INSTR:CALL MD AFTER TAKING 3 TABS IN TOTAL IN A DAY, # 100 tablet, 0 Refills, Maintenance, 08/23/21 8:07:00 EST, [facility]/pharmacy #[id number], 175.2, cm, 07/31/21 11:20:00 EST, H... Start Date: 08/23/21 Status: Ordered NovoLOG FlexPen 100 units/mL injectable solution See Instructions, INJECT 0-18 UNITS SUBCUTANEOUSLY WITH MEALS FOR SLIDING SCALES, # 15 Unknown, 2 Refills, [facility] STORE [id number], 175.2, cm, 05/27/21 11:26:00 EST, Height, 88.3, kg, 03/12/21 9:16:00 EDT, Dry Weight Start Date: 06/04/21 Status: Ordered Pen [place], 31 G x 5 mm BD Ultra [...] 5 Refills, Maintenance, 06/10/21 12:32:00 EST, Capsule, [facility]/pharmacy #[id number], 175.2, cm, 06/07/21 9:51:00 EST, Height, 88.3, kg, 03/12/21 9:16:00 EDT, Dry Weight Start Date: 06/10/21 Status: Ordered pregabalin 75 mg oral capsule 1 capsule = 75 mg, By Mouth, 2 times a day, # 60 capsule, 5 Refills, Maintenance, 06/07/21 13:14:00EST, Capsule, [facility]/pharmacy #[id number], 175.2, cm, 06/07/21 9:51:00 EST, Height, 88.3, kg, 03/12/21 9:16:00 EDT, Dry Weight Start Date: 06/07/21 Status: Ordered rosuvastatin 20 mg oral tablet 1 tablet, By Mouth, Daily, # 90 tablet, 1 Refills, Maintenance, 08/15/21 14:24:00 EST, [facility]/pharmacy#[id number], 175.2, cm, 07/31/21 11:20:00 EST, Height, 88.3, kg, 03/12/21 9:16:00 EDT, Dry Weight Start Date: 08/15/21 Status: Ordered SEROquel 100 mg oral tablet 100 mg, 1, tablet, By Mouth, 2 times a day, # 60 tablet, Refills 2, Tot. Refills 2, Maintenance, 09/21/19 10:41:00 EDT, Route to Pharmacy Electronically, [facility]/pharmacy #[id number], 172, cm, 09/05/19 16:17:00 [...] # 9 Unknown, 1 Refills, [facility], 175.2, cm, 07/31/21 11:20:00 EST, Height, 88.3, [...] 1, 2 Active Chronic renal failure, stage 3b(Confirmed) Active ASHD; [place] 2012/stent circumfl ex vessel cath;abdelrahman 2018(Confirmed) 3 [...] 524 weeks therapy with sofosbuvir/weight based ribavirin 13852 inferolateral stent bare metal circumflex 7DR Molddoverno [...]
--- OUTSIDE RECORDS SUMMARY | 2024-06-01 12:09 | XMS_ITS | Continuity of Care Document ---
Author Organization [facility] Nando Escobar Lazaro lt Address [address] [place] [address]- Care Team Providers Care Corporate Claims Examiner Name Role Phone Carrie HUMAN RELATIONS TEACHERKelly Primary Care Physician [facility]counter [facility] Date(s): 10/07/22 - 11/06/22 [facility] Shawn Adult [address] [place] [address]- Allergies, Adverse Reactions, Alerts Substance Reaction Severity [...] influenza virus vaccine, inactivated 04/16/10 Give n [id number] 12y+ bivalent booster vax 05/17/22 Recorded SARS-CoV-2 [...] 5 Refills, Maintenance, 07/18/22 11:59:00 EST, [facility]/pharmacy #[id number], 175, cm, 07/17/22 10:33:00 EST, Height, 93, kg, 01/28/22 14:55:00 EDT, Dry Weight Start Date: 07/18/22 Status: Ordered Flonase 50 mcg/inh nasal spray 1 sprays, Nares, Both, 2 times a day, # 16 Gm, 0 Refills, Maintenance, 09/05/22 9:15:00 EST, [place],[facility]/pharmacy #[id number], Partial fill upon patient request if the prescription is for a schedule II opioid drug., 1 sprays Nares, Both 2 times a day, 175, c... Start Date: 09/05/22 Status: Ordered folic acid 1 mg oral tablet 1, tablet, By Mouth, Daily, # 30 tablet, Refills 5, Tot. Refills 5, Maintenance, 08/15/22 10:27:00 EST, Route to Pharmacy Electronically, [facility]/pharmacy #[id number], 175, cm, 07/17/22 [...] 01/21/19 11:25:36 EDT, Route to Pharmacy Electronically, [id number], [facility]/pharmacy #[id number] Start Date: 01/21/19 Stop Date: 05/21/19 Status: Ordered lisinopril 40 mg oral tablet 1 tablet, By Mouth, Daily, # 90 tablet, 0 Refills, Maintenance, 10/24/22 10:11:00 EDT, [id number], 175, cm, 10/09/22 16:51:00 EDT, Height, 93, kg, 01/28/22 14:55:00 EDT, Dry Weight Start Date: 10/24/22 Status: Ordered Metoprolol Tartrate 50 mg oral tablet 1.5 tablet, By Mouth, 2 times a day, # 270 tablet, 1 Refills, Maintenance, 09/01/22 13:28:00 EST, [facility], 175, cm, 07/17/22 10:33:00 EST, Height, 93, kg, 01/28/22 14:55:00 EDT, Dry Weight Start Date: 09/01/22 Status: Ordered Nicotine 7 mg/24 hour patch 1 patch, Topically, Daily, # 30 patch, 1 Refills, Maintenance, 09/26/22 7:49:00 EDT, Patch, [id number], Partial fill upon [...] Weight Start Date: 11/07/22 Status: Ordered Pen [place], 31 G x 5 mm BD Ultra [...] 2 Refills, Maintenance, 08/07/22 12:55:00EST, Capsule, [facility]/pharmacy #[id number], 175, cm, 07/17/22 10:33:00 EST, Height, 93, kg, 01/28/22 14:55:00EDT, Dry Weight Start Date: 08/07/22 Status: Ordered rosuvastatin 20 mg oral tablet 1 tablet, By Mouth, Daily, # 90 tablet, 1 Refills, Maintenance, 05/21/22 13:33:00 EST, [facility] STORE 01453, 175, cm, 05/09/22 11:08:00 EDT, Height, 93, kg, 01/28/22 14:55:00 EDT, Dry Weight Start Date: 05/21/22 Status: Ordered Senna 8.6 mg oral tablet 1 or 2 tablets, By Mouth, Daily at bedtime, PRN, # 60 tablet, Refills 5, Tot. Refills 5, Maintenance, Constipation, 11/03/22 15:04:00 EDT, Route to Pharmacy Electronically, [facility]/pharmacy #[id number] Tablet,Partial fill upon patient [...] 9 Unknown, 1 Refills, 01/21/22 15:39:00 EDT, [facility]/pharmacy #[id number], 175.2, cm, 12/18/21 14:10:00 EDT, Height... Start Date: 01/21/22 Status: Ordered Trulicity Pen 0.75 mg/0.5 mL subcutaneous solution 0.5 mL = 0.75 mg, Subcutaneous Injection, Every week, # 2.5 mL, 2 Refills, Maintenance, 04/08/22 9:12:00 EDT, Solution, [facility]/pharmacy #[id number], Partial [...] 524 weeks therapy with sofosbuvir/weight based ribavirin 85159 inferolateral stent bare metal circumflex 7DR Molddovernmateo [...] Member Role: Lifetime Consulting Physician Address: Address: [address] [place] [address] [facility] [place] [address]- Name: Kelly Butler NP Position: [facility] PCO Associate Professional Member Role: PCP Address: Address: [address] [place] [id number]- Name: Kristin Mckenzie Position: [facility] Outreach Member Role: Lifetime Consulting Physician Name: Prieto Tobin RN Position: [facility] RN Member Role: Primary Care Nurse Name: Jonn Hui DO Position: [facility] Renal MD Member Role: Lifetime Consulting Physician Address: Address: [address] [place], [place] [address] [place] [address]- Name: Luis Angel Stephen RN Position: [facility] RN Member Role: Primary Care Nurse Name: Tamie Baird RN Position: [facility] RN Member Role: Primary Care Nurse Care Team Related Persons Name: CARLOS A BORDEN Address: home [address] [place] [address] Name: LEVI BORDEN Address: home [address] [place] [address]
--- OUTSIDE RECORDS SUMMARY | 2024-06-01 12:09 | XMS_ITS | Continuity of Care Document ---
Author Organization [facility] Shawn Lazaro lt Address [address] [place] [address]- Care Team Providers Care Service Delivery Manager Name Role Phone Carrie Kelly RIVERA Primary Care Physician [phone] [place] [facility] Date(s): 07/02/23 - 08/01/23 [facility] Adult [address] [place] [address]- Allergies, Adverse Reactions, Alerts Substance Reaction Severity Status Bee Stings Active Immunizations Given and Recorded Vaccine Date Status Refusal Reason SARS-CoV-2(COVID-19)mRNA-LNP vac([id number]) 05/08/23 Recorded pneumococcal 20-valent conjugate vaccine 1 [...] 02/03/23 Recorded zoster vaccine, inactivated 08/09/19 Recorded [id number] 12y+ bivalent booster vax 05/17/22 Recorded SARS-CoV-2 [...] adult vaccine 4 12/10/10 Given 1Result Comment: [id number] 2Result Comment: [id number] 3Admin Note: pt waited 10 mins post inj no adverse reaction noted.j a 4Admin Note: PT WAITED 10 MIN WITH NO ADVERSE REACTION. MH Medications aspirin 81 mg oral delayed release tablet 1 tablet, By Mouth, Daily, # 90 tablet, 1 Refills, Maintenance, 06/02/23 11:42:00 EST, [facility]/pharmacy#[id number], 168, cm, 05/01/23 14:45:00 EDT, Height, 93, [...] capsule, 1 Refills, Maintenance, 06/30/23 7:20:00 EST, [facility], 168, cm, 05/01/23 14:45:00 EDT, Height, 93, kg, 01/28/22 14:55:00 EDT, Dry Weight Start Date: 06/30/23 Status: Ordered Daily Simone oral tablet 1 tablet, By Mouth, Daily, # 90 tablet, 1 Refills, Maintenance, 06/30/23 7:20:00 EST, [facility], 90, TAKE 1 TABLET BY MOUTH EVERY [...] Refills, Maintenance, 06/26/23 6:50:00 EST, [facility], 168, cm, 05/01/23 14:45:00 EDT, Height, 93, kg, 01/28/22 14:55:00 EDT, Dry Weight Start Date: 06/26/23 Status: Ordered folic acid 1 mg oral tablet 1, tablet, By Mouth, Daily, # 90 tablet, Refills 1, Tot. Refills 1, Maintenance, 07/03/23 10:01:00 EST, Route to Pharmacy Electronically, [facility]/pharmacy #[id number], 168, cm, 05/01/23 14:45:00 [...] 01/21/19 11:25:36 EDT, Route to Pharmacy Electronically, [id number], [facility]/pharmacy #[id number] Start [...] tablet, 0 Refills, Maintenance, 04/21/23 10:51:00 EDT, [facility], 175, cm, 10/09/22 16:51:00 EDT, Height, 93, [...] Refills, Maintenance, 02/20/23 7:15:00 EDT, [facility], 175, cm, 10/09/22 16:51:00 EDT, Height, 93, kg, 01/28/22 14:55:00 EDT, Dry Weight Start Date: 02/20/23 Status: Ordered nicotine 14 mg/24 hr transdermal film, extended release See Instructions, apply to skin, # 14 patch, 1 Refills, Maintenance, 07/23/23 15:53:00 EST, Patch, [facility]/pharmacy #[id number], Partial [...] 15 Unknown, 2 Refills, 11/07/22 0:09:00 EDT, [facility]/pharmacy #[id number], 175, cm, 10/09/22 16:51:00 EDT, Height, 93, kg, 01/28/22 14:55:00 EDT, Dry Weight Start Date: 11/07/22 Status: Ordered Pen [place], 31 G x 5 mm BD [...] capsule, 2 Refills, Maintenance, 07/03/23 9:40:00 EST, [facility]/pharmacy #[id number], Partial fill upon patient request if the prescription is for a schedule II opioid drug., 168, cm, 05/01/23 14:45:00 EDT, Height, 93, kg... Start Date: 07/03/23 Status: Ordered rosuvastatin 20 mg oral tablet 1 tablet, By Mouth, Daily, # 90 tablet, 1 Refills, Maintenance, 03/29/23 14:43:00 EDT, [facility], 175, cm, 10/09/22 16:51:00 EDT, Height, 93, [...] 524 weeks therapy with sofosbuvir/weight based ribavirin 85920 inferolateral stent bare metal circumflex 7DR Molddoverno [...] Role: Lifetime Consulting Physician Address: Address: [address] [place] [address] [facility] [place] [address]- Name: Kelly Butler NP Position: [facility] PCO Associate Professional Member Role: PCP Address: Address: [address] [place] [address]- Name: Kristin Mckenzie Position: [facility] Outreach Member Role: Lifetime Consulting Physician Name: Prieto Tobin RN Position: [facility] RN Member Role: Primary Care Nurse Name: Jonn Hui DO Position: [facility] Renal MD Member Role: Lifetime Consulting Physician Address: Address: [address] [place], [place] [address] [place] [address]- Name: Luis Angel Stephen RN Position: [facility] ED RN W/OE and Tasks Member Role: Primary Care Nurse Care Team Related Persons Name: CARLOS A BORDEN Address: home [address] [place] [address] UM Name: LEVI BORDEN Address: [address] [place] [address]
--- OUTSIDE RECORDS SUMMARY | 2024-06-01 12:09 | XMS_ITS | Continuity of Care Document ---
Author Organization [facility] Lazaro lt Address [address] [place] [address]- Care Team Providers Care Head Buyer Tobacco Name Role Phone Carrie Kelly RIVERA Primary Care Physician Encounter [facility] Date(s): 02/03/24 - 03/04/24 [facility] Adult [address] [place] [address]- Attending Physician: Not on Staff, Attending MD Allergies, Adverse Reactions, Alerts Substance Reaction Severity Status Bee Stings Active Immunizations Given and Recorded Vaccine Date Status Refusal Reason SARS-CoV-2(COVID-19)mRNA-LNP vac([id number]) 12/31/23 Recorded SARS-CoV-2(COVID-19)mRNA-LNP vac([id number]) 05/08/23 Recorded tetanus/diphtheria/pertussis, acel(Tdap) 10/15/23 Recorded tetanus/diphtheria/pertussis, acel(Tdap) 07/28/11 Given pneumococcal 20-valent conjugate vaccine 1 05/01/23 Given influenza virus vaccine, inactivated 2 05/01/23 Gi arcaely influenza virus vaccine, inactivated 05/17/22 Andrew rded [...] 02/03/23 Recorded zoster vaccine, inactivated 08/09/19 Recorded [id number] 12y+ bivalent booster vax 05/17/22 Recorded SARS-CoV-2 [...] adult vaccine 4 12/10/10 Given 1Result Comment: [id number] 2Result Comment: [id number] 3Admin Note: pt waited 10 mins post [...] 02/02/24 15:26:00 EDT, Route to Pharmacy Electronically, [facility]/pharmacy #... Start Date: 02/02/24 Status: Ordered Aerochamber See Instructions, # 1 each, Maintenance, always use with inhaler, 02/02/24 15:25:00 EDT, Supply, 168, cm, 02/02/24 14:20:00 EDT, Height Start Date: 02/02/24 Status: Ordered Albuterol (Eqv-Ventolin HFA) 90 mcg/inh inhalation aerosol 2 puffs, Inhalation, Every 4 hours, PRN cough, SOB, wheeze, # 18 Gm, 0 Refills, Maintenance, 02/02/24 15:25:00 EDT, [id number], with dose counter. any albuterol inhaler covered [...] day prn cough (Max 600 mg in j48-vifm period), # 30 capsule, 0 Refills, Maintenance, [...] 02/29/24 11:18:00 EDT, Route to Pharmacy Electronically, [facility]/pharmacy #[id number], Partial fill upon patient request if the prescriptio... Start Date: 02/29/24 Stop Date: 03/14/24 Status: Ordered D3 50 mcg (2000 intl units) oral capsule 1 capsule, By Mouth, Daily, # 90 capsule, 0 Refills, Maintenance, 12/09/23 14:09:00 EDT, [facility]/pharmacy #[id number], 168, cm, 10/27/23 15:34:00 EDT, Height, 93, kg, 01/28/22 14:55:00 EDT, Dry Weight Start Date: 12/09/23 Status: Ordered Daily Simone oral tablet 1 tablet, By Mouth, Daily, # 90 tablet, 1 Refills, Maintenance, 01/25/24 16:01:00 EDT, [facility]/pharmacy#0843, 90, 1 tablet By Mouth Daily, 168, cm, 01/11/24 14:42:00 EDT, Height, 93, kg, 01/28/22 14:55:00 EDT, Dry Weight Start Date: 01/25/24 Status: Ordered dapagliflozin 10 mg oral tablet 1 tablet = 10 mg, By Mouth, Daily, # 30 tablet, 0 Refills, Maintenance, 01/11/24 14:46:00 EDT, Tablet, [facility]/pharmacy #[id number], Partial fill [...] 02/17/24 7:23:00 EDT, Route to Pharmacy Electronically, [facility]/pharmacy #[id number], 168, cm, 02/15/24 13:43:00 EDT, [...] 01/21/19 11:25:36 EDT, Route to Pharmacy Electronically, [id number], [facility]/pharmacy #[id number] Start Date: 01/21/19 Stop [...] mL, 0 Refills, Maintenance, 02/02/24 15:28:00 EDT, [place], [facility], Partial fill upon patient... Start Date: 02/02/24 Status: Ordered Pen [place], 31 G x 5 mm BD Ultra [...] Refills, Maintenance, 02/04/24 16:39:00 EDT, [facility], 168, cm, 02/03/24 10:41:00 EDT, Height Start Date: 02/04/24 Status: Ordered senna - oral tablet 2 tablet, By Mouth, Daily at bedtime, PRN for constipation, for 14 days, # 28 tablet, 0 Refills, Acute 03/14/24 11:19:00 EDT, 02/29/24 11:19:00 EDT, Tablet, [facility]/pharmacy #[id number], Partial fill [...] mild to moderate. 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 2012/ND 4secondary to hep C 524 weeks therapy with sofosbuvir/weight based ribavirin 78776 inferolateral stent bare metal circumflex 7DR Marissa [...] Name: Jeffrey Mccoy MD Position: [facility] Renal MD Member Role: Lifetime Consulting Physician Address: Address: [address] [place], [place] [address] [place], [place] [address] Name: Kelly Butler NP Position: [facility] PCO Associate Professional Member Role: PCP Address: Address: [address] [place] [id number] Name: Kristin Mckenzie Position: [facility] Outreach Member Role: Lifetime Consulting Physician Name: Forutnato Sin RN Position: [facility] RN Member Role: Primary Care Nurse Name: Nury Watts RN Position: [facility] RN Member Role: Primary Care Nurse Name: Antonia Mena NP Position: [facility] Associate Professional Member Role: Lifetime Consulting Provider Address: Address: [address] [place], [place] [address] [place], [place] [address] Name: Prieto Tobin RN Position: [facility] RN Member Role: Primary Care Nurse Name: Ashleigh Reynoso RN Position: [facility] RN Member Role: Primary Care Nurse Name: Jonn Hui DO Position: [facility] Renal MD Member Role: Lifetime Consulting Physician Address: Address: [address] [place], [place] [address] [place], [place] [address] Name: Luis Angel Stephen RN Position: [facility] RN Member Role: Primary Care Nurse Name: Brandan Nogueira RN Position: [facility] RN Member Role: Primary Care Nurse Care Team Related Persons Name: CARLOS A BORDEN Address: [address] [place] [address] Name: LEVI BORDEN Address: [address] [place] [address]
--- OUTSIDE RECORDS SUMMARY | 2024-06-01 12:10 | XMS_ITS | Continuity of Care Document ---
Author Organization [facility] ter Address [address] [place] [address]- Care Team Providers Care 2 Year Olds Preschool Teacher Name Role Phone Aylin HICKMAN, Ben Willis Primary Care Physician [phone] Encounter [facility] [place] Date(s): 10/05/19 - 11/10/[address] [address]- [facility] Attending Physician: Jeffrey Leon MD Admitting [...] 10:48:07 EST, Aerosol, Route to Pharmacy Electronically, [id number], [facility]/pharmacy #[id number], 180, cm, 06/17/19 10:36:11 EST, Height Start Date: 06/17/19 Status: Ordered aspirin 81 mg oral tablet 1 tablet = 81 mg, By Mouth, Daily, # 30 tablet, 11 Refills, Maintenance, 09/03/19 14:22:00 EST, Tablet, [facility]/pharmacy #[id number], 180, cm, 08/01/19 10:43:00 [...] Refills, Maintenance, 08/16/19 14:00:00 EST, CR Capsule, [facility]/pharmacy #[id number], 172, cm, 08/11/19 13:32:00 EST, Height, 97.8, kg, 08/11/19 5:24:00 EST, Dry Weight Start Date: 08/16/19 Status: Ordered cholecalciferol 2000 intl units oral capsule 1 capsule = 2,000 International_Units, By Mouth, Daily, # 30 capsule, 5 Refills, Maintenance, 11/02/19 10:15:00 EDT, Capsule, [facility]/pharmacy #[id number], 172, cm, 09/05/19 16:17:00 EST, Height, 97.8, kg, 08/11/19 5:24:00 EST, Dry Weight Start Date: 11/02/19 Status: Ordered cloNIDine 0.2 mg oral tablet 0.2 mg, 1, tablet, By Mouth, 2 times a day, # 60 tablet, Refills 2, Tot. Refills 2, Maintenance, 10/25/19 10:20:00 EDT, Route to Pharmacy Electronically, [facility]/pharmacy #[id number], 172, cm, 09/05/19 16:17:00 EST, Height, 97.8, kg, 08/11/19 5:24:00 EST, Dry W... Start Date: 10/25/19 Status: Ordered Colace sodium 100 mg oral capsule 100 mg, 1, capsule, By Mouth, 2 times a day, PRN, # 60 capsule, Refills 5, Tot. Refills 5, Maintenance, for constipation, 04/25/19 13:50:52 EDT, Route to Pharmacy Electronically, [id number], [facility]/pharmacy #[id number] Start Date: 04/25/19 Status: Ordered Crestor 20 mg oral tablet 1 tablet = 20 mg, By Mouth, Daily, # 90 tablet, 3 Refills, Maintenance, 10/25/19 11:14:00 EDT, Tablet, [facility]/pharmacy #[id number], 172, cm, 09/05/19 16:17:00 EST, Height, 97.8, kg, 08/11/19 5:24:00 EST, Dry Weight Start Date: 10/25/19 Status: Ordered Daily Simone oral tablet 1 tablet, By Mouth, Daily, # 30 tablet, 5 Refills, Maintenance, 09/21/19 10:41:00 EDT, Tablet, [facility]/pharmacy #[id number], 1 tablet By Mouth Daily,x30 days, 172, cm, 09/05/19 16:17:00 EST, Height, 97.8, kg, 08/11/19 5:24:00 EST, Dry Weight Start Date: 09/21/19 Stop Date: 03/19/20 Status: Ordered folic acid 1 mg oral tablet 1 mg, 1, tablet, By Mouth, Daily, # 30 tablet, Refills 11, Tot. Refills 11, Maintenance, 02/14/19 16:39:14 EDT, Route to Pharmacy Electronically, [id number], [facility]/pharmacy #[id number] Start Date: 02/14/19 Status: [...] 01/21/19 11:25:36 EDT, Route to Pharmacy Electronically, [id number], [facility]/pharmacy #[id number] Start Date: 01/21/19 Stop [...] 06/21/19 14:10:15 EST, Route to Pharmacy Electronically, [facility]/pharmacy #[id number], 180, cm, 06/17/19 10:36:11 EST, Height Start Date: 06/21/19 Status: Ordered metoprolol 50 mg oral tablet 75 mg, 1.5, tablet, By Mouth, 2 times a day, stop metoprolol 50 mg twice daily, # 180 tablet, Refills 2, Tot. Refills 2, Maintenance, 08/26/19 9:30:00 EST, Route to Pharmacy Electronically, [facility]/pharmacy #[id number], 172, cm, 08/23/19 10:02:00 EST, Height, 9... Start Date: 08/26/19 Status: Ordered nicotine 4 mg oral transmucosal lozenge 1 lozenge = 4 mg, By Mouth, Every hour, # 132 lozenge, 1 Refills, Maintenance, 10/05/19 11:01:00 EDT, [facility]/pharmacy #[id number], 1 lozenge By Mouth [...] PAIN CALL 911 IF PAIN NOT RELIEVED, [facility]/pharmacy #[id number] Start Date: 02/17/19 Status: Ordered NovoLOG FlexPen 100 units/mL subcutaneous solution See Instructions, # 15 Unknown, Refills 5 Tot. Refills 5, INJECT 0-18 UNITS SUBCUTANEOUSLY WITH MEALS FOR SLIDING SCALES, [facility]/pharmacy #[id number] Start Date: 01/04/19 Status: Ordered Pen [place], 31 G x 5 mm BD Ultra [...] 0 Refills, Maintenance, 10/05/19 11:07:00 EDT, Solution, [facility]/pharmacy #[id number], 172, cm, 09/05/19 16:17:00 [...] 09/21/19 10:41:00 EDT, Route to Pharmacy Electronically, [facility]/pharmacy #[id number], 172, cm, 09/05/19 16:17:00 [...] EST, Tablet, this was previously sent to [facility] pharmacy Start Date: 05/17/19 Stop Date: 05/11/20 Status: Ordered Tresiba FlexTouch 200 units/mL subcutaneous solution = 90 units, Subcutaneous Infusion, Daily, at bedtime, # 15 mL, 5 Refills, Maintenance, 08/04/19 13:13:00 EST, [facility]/pharmacy #[id number], 180, cm, 08/01/19 10:43:00 EST, Height Start Date: 08/04/19 Status: Ordered Problem List Condition Effective Dates Status Health Status Inform ant Acute pancreatitis(Confirmed) 07/16/16 Active Adenomatous colon polyp(Confirmed) Active Bipolar disorder(Confirmed) Active Cervical spondylosis(Confirmed) Active Chronic back pain opiates pe r physiatry(Confirmed) Active Glomerulonephritis,mesangial proliferative/fibrillary(Confirmed) 1, 2 Active Chronic renal impairment, st age 3 (moderate)(Confirmed) Active ASHD; [place] 2012/stent circumfl ex vessel [...] mild to moderate. 3MI 2012 circumflex stent [place] 4secondary to hep C 524 weeks therapy with sofosbuvir/weight based ribavirin 43093 inferolateral stent bare metal circumflex 7DR Molddoverno sx;Dr Schwartz 8repeat colonoscopy in 5 years Social History Social History Type Response Smoking Status Former smoker, quit more than 30 days ago entered on: 12/22/18 Sex
--- OUTSIDE RECORDS SUMMARY | 2024-06-01 12:10 | XMS_ITS | Continuity of Care Document ---
Author Organization [facility] Address [address] [place] [address]- Care Team Providers Care Director Women Name Role Phone Aylin HICKMAN, Ben Willis Primary Care Physician [phone] [place] [facility] [place]14[place]21 - 03/16/21 [facility] [address] [place] [address]- [place] Allergies, Adverse Reactions, Alerts Substance Reaction [...] tablet, 11 Refills, Maintenance, 06/26/20 12:19:00 EST, [facility] STORE [id number], 175, cm, 06/25/20 16:11:00 EST, Height, 83.6, [...] Refills, Maintenance, 01/23/21 11:08:00 EDT, CR Capsule, [facility]/pharmacy #[id number], 175.3, cm, 01/21/21 12:58:00 EDT, Height, 83.6, kg, 04/23/20 17:46:00EDT, Dry Weight Start Date: 01/23/21 Stop Date: 01/18/22 Status: Ordered cholecalciferol 2000 intl units oral capsule 1 capsule = 2,000 International_Units, By Mouth, Daily, # 30 capsule, 5 Refills, Maintenance, 11/02/20 10:48:00 EDT, Capsule, [facility]/pharmacy #[id number], 175, cm, 09/21/20 11:29:00 EDT, Height, 83.6, kg, 04/23/20 17:46:00 EDT, Dry Weight Start Date: 11/02/20 Status: Ordered cloNIDine 0.2 mg oral tablet 0.2 mg, 1, tablet, By Mouth, 2 times a day, # 60 tablet, Refills 5, Tot. Refills 5, Maintenance, 02/28/21 10:13:00 EDT, Route to Pharmacy Electronically, [facility]/pharmacy #[id number], 175.3, cm, 01/21/21 12:58:00 EDT, [...] Refills, Maintenance, 01/22/21 12:45:00 EDT, [facility], 175.3, cm, 01/21/21 12:58:00 EDT, Height, 83.6, kg, 04/23/20 17:46:00 EDT, Dry Weight Start Date: 01/22/21 Status: Ordered folic acid 1 mg oral tablet 1, tablet, By Mouth, Daily, # 30 tablet, Refills 5, Tot. Refills 0, Maintenance, 01/18/21 14:44:00 EDT, Route to Pharmacy Electronically, [facility], 175, cm, 12/24/20 11:20:00 EDT, Height, 83.6, [...] 01/21/19 11:25:36 EDT, Route to Pharmacy Electronically, [id number], [facility]/pharmacy #[id number] Start Date: 01/21/19 Stop Date: [...] tablet, 0 Refills, Maintenance, 11/16/20 11:46:00 EDT, [facility] STORE 88643, 175, cm, 09/21/20 11:29:00 EDT, Height, 83.6, kg, 04/23/20 17:46:00 EDT, Dry Weight Start Date: 11/16/20 Status: Ordered nicotine 2 mg oral transmucosal lozenge See Instructions, USE 1 LOZENGE UP TO EVERY 1 HOUR NEEDED FOR 10 DAYS, # 162 lozenge, 1 Refills,Acute, [facility] STORE 35020, 10, USE 1 LOZENGE UP TO EVERY [...] 9:13:... Start Date: 02/01/20 Status: Ordered Pen [place], 31 G x 5 mm BD Ultra [...] tablet, 1 Refills, Maintenance, 01/08/21 14:43:00 EDT, [facility]/pharmacy#0843, 175, cm, 12/24/20 11:20:00 EDT, Height, [...] to Pharmacy Electronically, [facility]/pharmacy #[id number], 172, cm, 09/05/19 16:17:00 EST, [...] EST, Tablet, this was previously [facility] Start Date: 05/17/19 Stop Date: 05/11/20 Status: Ordered Tresiba FlexTouch 200 units/mL subcutaneous solution = 22 units, Subcutaneous Infusion, Daily, at bedtime, increase 2 units every 3 days until FBS < 120 per PCP max dose 60 units qday, # 3 each, 1 Refills, Maintenance, 12/10/20 11:14:00 EDT, [facility]/pharmacy #[id number], 175, cm, 09/21/20 11:29:00 EDT, Height, 83... Start Date: 12/10/20 Status: Ordered Trulicity Pen 0.75 mg/0.5 mL subcutaneous solution 0.5 mL = 0.75 mg, Subcutaneous Injection, Every week, # 2.5 mL, 11 Refills, Maintenance, 12/24/20 11:37:00 EDT, Solution, [facility]/pharmacy #[id number], Partial fill upon patient request [...] Active Glomerulonephritis,mesangial proliferative/fibrillary(Confirmed) 1, 2 Active ASHD; [place] 2012/stent circumfl ex vessel cath;abdelrahman 2018(Confirmed) 3 [...] 524 weeks therapy with sofosbuvir/weight based ribavirin 18496 inferolateral stent bare metal circumflex 7DR Molddoverno [...]
--- OUTSIDE RECORDS SUMMARY | 2024-06-01 12:10 | XMS_ITS | Continuity of Care Document ---
Author Organization [facility] Shawn Lazaro lt Address [address] [place] [address]- Care Team Providers Care Global Creative Chairman Name Role Phone Aylin HICKMAN, Ben Willis Primary Care Physician [place] [facility] [place] 11[place]28/20 [facility] [address] [place] [address]- Allergies, Adverse Reactions, Alerts Substance Reaction Severity [...] 10:48:07 EST, Aerosol, Route to Pharmacy Electronically, [id number], [facility]/pharmacy #[id number], 180, cm, 06/17/19 10:36:11 EST, Height Start Date: 06/17/19 Status: Ordered aspirin 81 mg oral delayed release tablet 1 tablet, By Mouth, Daily, # 30 tablet, 11 Refills, Maintenance, 06/26/20 12:19:00 EST, [facility] STORE 44008, 175, cm, 06/25/20 16:11:00 EST, Height, 83.6, [...] Refills, Maintenance, 01/02/20 15:47:00 EDT, CR Capsule, [facility]/pharmacy #[id number], 172, cm, 12/14/19 8:02:00 EDT, Height, 97.8, kg, 08/11/19 5:24:00 EST, Dry Weight Start Date: 01/02/20 Stop Date: 12/27/20 Status: Ordered cholecalciferol 2000 intl units oral capsule 1 capsule = 2,000 International_Units, By Mouth, Daily, # 30 capsule, 5 Refills, Maintenance, 11/02/20 10:48:00 EDT, Capsule, [facility]/pharmacy #[id number], 175, cm, 09/21/20 11:29:00 EDT, Height, 83.6, kg, 04/23/20 17:46:00 EDT, Dry Weight Start Date: 11/02/20 Status: Ordered cloNIDine 0.2 mg oral tablet 0.2 mg, 1, tablet, By Mouth, 2 times a day, # 60 tablet, Refills 5, Tot. Refills 5, Maintenance, 09/09/20 19:43:00 EST, Route to Pharmacy Electronically, [facility]/pharmacy #[id number], 175, cm, 07/20/20 10:29:00 EST, Height, 83.6, kg, 04/23/20 17:46:00 EDT, Dry... Start Date: 09/09/20 Status: Ordered Colace sodium 100 mg oral capsule 100 mg, 1, capsule, By Mouth, 2 times a day, PRN, # 60 capsule, Refills 5, Tot. Refills 5, Maintenance, for constipation, 02/27/20 15:25:00 EDT, Route to Pharmacy Electronically, [facility]/pharmacy #[id number], 172, cm, 12/14/19 8:02:00 EDT, Height, 97.8, kg, ... Start Date: 02/27/20 Status: Ordered Crestor 20 mg oral tablet 1 tablet = 20 mg, By Mouth, Daily, # 90 tablet, 3 Refills, Maintenance, 01/02/20 15:46:00 EDT, Tablet, [facility]/pharmacy #[id number], 172, cm, 12/14/19 8:02:00 EDT, Height, 97.8, kg, 08/11/19 5:24:00 EST, Dry Weight Start Date: 01/02/20 Status: Ordered Daily Simone oral tablet 1 tablet, By Mouth, Daily, # 90 tablet, 3 Refills, Maintenance, 09/21/20 11:35:00 EDT, Tablet, [facility]/pharmacy #[id number], Partial fill upon patient request if the prescription is for a schedule II opioid drug., 1 tablet By Mouth Daily, 175, cm, 09/21/20 11:2... Start Date: 09/21/20 Status: Ordered Daily Simone oral tablet 1 tablet, By Mouth, Daily, # 30 tablet, 5 Refills, Maintenance, 09/19/20 8:25:00 EDT, Tablet, [facility]/pharmacy #[id number], 1 tablet By Mouth Daily,x30 days, 175, cm, 07/20/20 10:29:00 EST, Height, 83.6, kg, 04/23/20 17:46:00 EDT, Dry Weight Start Date: 09/19/20 Stop Date: 03/18/21 Status: Ordered folic acid 1 mg oral tablet 1 mg, 1, tablet, By Mouth, Daily, # 30 tablet, Refills 5, Tot. Refills 5, Maintenance, 07/04/20 13:24:00 EST, Route to Pharmacy Electronically, [facility]/pharmacy #[id number], 175, cm, 06/25/20 16:11:00 [...] tablet, 5 Refills, Maintenance, 02/27/20 15:23:00 EDT, [facility]/pharmacy #[id number], 172, cm, 12/14/19 8:02:00 EDT, Height, 97.8, kg, 08/11/19 5:24:00 EST, Dry Weight Start Date: 02/27/20 Status: Ordered Golytely - oral powder for reconstitution 240 mL, By Mouth, Daily, bowel instruction, # 4,000 mL, 0 Refills, Maintenance, 06/21/20 16:44:00 EST, REC Powder, [facility]/pharmacy #[id number], Partial fill upon patient request if the prescription is for a schedule II opioid drug., 240 mL By Mouth Daily,Instr... Start Date: 06/21/20 Status: Ordered LaMICtal 100 mg oral tablet 100 mg, 1, tablet, By Mouth, 2 times a day, # 60 tablet, Refills 3, Tot. Refills 3, Maintenance, 01/21/19 11:25:36 EDT, Route to Pharmacy Electronically, [id number], [facility]/pharmacy #[id number] Start Date: 01/21/19 Stop [...] tablet, 0 Refills, Maintenance, 11/16/20 11:46:00 EDT, [facility], 175, cm, 09/21/20 11:29:00 EDT, Height, 83.6, kg, 04/23/20 17:46:00 EDT, Dry Weight Start Date: 11/16/20 Status: Ordered nicotine 2 mg oral transmucosal lozenge See Instructions, suck, up to q1 hrs 10 daily, # 162 lozenge, 1 Refills, Maintenance, 11/16/20 12:04:00 EDT, [facility]/pharmacy #[id number], suck, up to q1 hrs 10 daily, 175, cm, 09/21/20 11:29:00 EDT, Height, 83.6, kg, 04/23/20 17:46:00 EDT, Dry Weight Start Date: 11/16/20 Status: Ordered nicotine 4 mg oral transmucosal lozenge 1 lozenge = 4 mg, By Mouth, Every hour, dispense 2 boxes of 81 count as directed on package labeling, # 162 lozenge, 3 Refills, Maintenance, 09/25/20 14:39:00 EDT, [facility]/pharmacy #[id number], 1 lozenge By Mouth [...] 2 Refills, Soft Stop, 06/01/20 13:51:00 EST, [facility]/pharmacy #[id number], 175, cm, 05/24/20 12:46:00 [...] 9:13:... Start Date: 02/01/20 Status: Ordered Pen [place], 31 G x 5 mm BD Ultra [...] 09/21/19 10:41:00 EDT, Route to Pharmacy Electronically, [facility]/pharmacy #[id number], 172, cm, 09/05/19 16:17:00 [...] mL, 5 Refills, Maintenance, 08/04/19 13:13:00 EST, [facility]/pharmacy #[id number], 180, cm, 08/01/19 10:43:00 EST, Height Start Date: 08/04/19 Status: Ordered Problem List Condition Effective Dates Status Health Status Inform ant Acute pancreatitis(Confirmed) 07/16/16 Active Adenomatous colon polyp colo noscopy 2015(Confirmed) Active Bipolar disorder(Confirmed) Active Cervical spondylosis(Confirmed) Active Chronic back pain DJD(Confirmed) Active Glomerulonephritis,mesangial proliferative/fibrillary(Confirmed) 1, 2 Active ASHD; [place] 2012/stent circumfl ex 2012/3vessel cath;abdelrahman 2018(Confirmed) 3 Active Epididymal cyst rt(Confirmed) [...] mild to moderate. 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 2013/[place] 4secondary to hep C 524 weeks therapy with sofosbuvir/weight based ribavirin 22200 inferolateral stent bare metal circumflex 7DR Molddoida [...]
--- OUTSIDE RECORDS SUMMARY | 2024-06-01 12:10 | XMS_ITS | Continuity of Care Document ---
Author Organization [facility] Address [address] [place] [id number]- Care Team Providers Care Broke Handler Name Role Phone Carrie [place] MAGISTRATEKelly Primary Care Physician Encounter [facility] Date(s): 04/14/24 - 05/14/[address] [address]- Allergies, Adverse Reactions, Alerts Substance Reaction Severity [...] virus vaccine, inactivated 04/16/10 Give n SARS-CoV-2(COVID-19)mRNA-LNP vac([id number]) 12/31/23 Recorded SARS-CoV-2(COVID-19)mRNA-LNP vac([id number]) 05/08/23 Recorded tetanus/diphtheria/pertussis, acel(Tdap) 10/15/23 Recorded tetanus/diphtheria/pertussis, acel(Tdap) 07/28/11 Given pneumococcal 20-valent conjugate vaccine 3 05/01/23 Given zoster vaccine, inactivated 02/03/23 Recorded zoster vaccine, inactivated 08/09/19 Recorded [id number] 12y+ bivalent booster vax 05/17/22 Recorded SARS-CoV-2 [...] 12/10/10 Given 1Result Comment[facility] Comment: [id number] 3Result Comment: [id number] 4Admin Note: pt waited 10 mins post inj no adverse reaction noted.j a 5Admin Note: PT WAITED 10 MIN WITH NO ADVERSE REACTION. Medications albuterol 90 mcg/inh inhalation powder 1 puffs, Inhalation, Every 6 hours, PRN Wheezing/Shortness of Breath, # 1 each, 0 Refills, Maintenance, 02/15/24 13:38:00 EDT, Powder, [facility]/pharmacy #[id number], Partial fill upon patient request if the prescription is for a schedule II opioid drug., 1 puffs... Start Date: 02/15/24 Status: Ordered amLODIPine 10 mg oral tablet 10 mg, By Mouth, Daily, # 30 tablet, Refills 5, Tot. Refills 5, Maintenance, 03/11/24 11:59:00 EDT,Route to Pharmacy Electronically, [facility]/pharmacy #[id number], Partial fill upon patient request if the prescription is for a schedule II opioid drug., 168, cm,... Start Date: 03/11/24 Stop Date: 09/07/24 Status: Ordered aspirin 81 mg oral delayed release tablet 1 tablet, By Mouth, Daily, # 90 tablet, 1 Refills, Maintenance, 01/25/24 21:53:00 EDT, [facility]/pharmacy#[id number], 168, cm, 01/11/24 14:42:00 EDT, Height, [...] 04/19/24 14:32:00 EDT, Route to Pharmacy Electronically, [facility]/pharmacy #[id number], Partial fill upon [...] 0 Refills, Maintenance, 01/11/24 14:46:00 EDT, Tablet, [facility]/pharmacy #[id number], Partial fill upon patient request if the prescription is for a schedule II opioid drug., 168, cm, 01/11/24 14:42:00 EDT, Height,... Start Date: 01/11/24 Status: Ordered Flonase Allergy Relief 50 mcg/inh nasal spray See Instructions, 1 sprays Daily in each nostril, # 16 Gm, 0 Refills, Maintenance, 02/15/24 13:39:00 EDT, [facility]/pharmacy #[id number], Partial fill upon patient request if the prescription is for a schedule II opioid drug., 168, cm, 02/03/24 10:41:00 EDT, Height Start Date: 02/15/24 Status: Ordered folic acid 1 mg oral tablet 1, tablet, By Mouth, Daily, # 90 tablet, Refills 1, Tot. Refills 1, Maintenance, 02/17/24 7:23:00 EDT, Route to Pharmacy Electronically, [facility]/pharmacy #[id number], 168, cm, 02/15/24 13:43:00 EDT, [...] 01/21/19 11:25:36 EDT, Route to Pharmacy Electronically, [id number], [facility]/pharmacy #[id number] Start Date: 01/21/19 Stop Date: 05/21/19 Status: Ordered lisinopril 10 mg oral tablet 10 mg, 1, tablet, By Mouth, Daily, # 90 tablet, Refills 0, Tot. Refills 0, Maintenance, 04/19/24 9:02:00 EDT, Route to Pharmacy Electronically, [facility]/pharmacy #[id number], 168, cm, 04/15/24 10:23:00 EDT, [...] tablet, 0 Refills, Maintenance, 03/17/24 14:24:00 EDT, [facility]/pharmacy #[id number], 168, cm, 03/17/24 9:46:00 EDT, Height Start Date: 03/17/24 Status: Ordered nitroglycerin 0.4 mg sublingual tablet See Instructions, DISSOLVE 1 UNDER TONGUE EVERY 5 MINUTES NEEDED FOR CHEST PAIN CALL MD AFTER TAKING 3 TABS IN TOTAL IN A DAY, # 100 tablet, 0 Refills, Maintenance, 10/03/22 15:53:00 EDT, [facility]/pharmacy #[id number], 175, cm, 09/17/22 13:59:00 EDT, [...] mL, 0 Refills, Maintenance, 02/02/24 15:28:00 EDT, [place], [facility]/pharmacy #[id number], Partial fill upon patient... Start Date: 02/02/24 Status: Ordered Pen [place], 31 G x 5 mm BD Ultra [...] tablet, 1 Refills, Maintenance, 05/10/24 12:39:00 EST, [facility]/pharmacy#[id number], rx resent 05/10/24, 168, cm, 04/19/24 14:01:00 [...] 524 weeks therapy with sofosbuvir/weight based ribavirin 18672 inferolateral stent bare metal circumflex 7DR Marissa [...] Role: Lifetime Consulting Physician Address: Address: [address] [place] [address] [address] [facility] [place] [place] [address]- Name: Kelly Butler NP Position: [facility] PCO Associate Professional Member Role: PCP Address: Address: [address] [place] [address]- [place] Name: Kristin Mckenzie Position: [facility] Outreach Member Role: Lifetime Consulting Physician Name: Fortunato Sin RN Position: [facility] RN Member Role: Primary Care Nurse Name: Nury Watts RN Position: [facility] RN Member Role: Primary Care Nurse Name: Antonia Mena NP Position: [facility] Associate Professional Member Role: Lifetime Consulting Provider Address: Address: [address] [place] [address] [address] [facility] [place] [place] [address]- Name: Prieto Tobin RN Position: [facility] RN Member Role: Primary Care Nurse Name: Ashleigh Reynoso RN Position: [facility] RN Member Role: Primary Care Nurse Name: Jonn Hui DO Position: [facility] Renal MD Member Role: Lifetime Consulting Physician Address: Address: [address] [facility] [address] [facility] [place] [place] - Name: Luis Angel Stephen RN Position: [facility] RN Member Role: Primary Care Nurse Name: Brandan Nogueira RN Position: [facility] RN Member Role: Primary Care Nurse Care Team Related Persons Name: CARLOS A BORDEN Address: home [address] [place] [address] Name: LEVI BORDEN Address: home [address] [place] [address]
--- OUTSIDE RECORDS SUMMARY | 2024-06-01 12:10 | XMS_ITS | Continuity of Care Document ---
Author Organization [facility] Nando Escobar Lazaro lt Address [address] [place] [address]- Care Team Providers Care Facility Planner Name Role Phone Ben Viera MD Primary Care Physician [phone] Encounter [facility] Date(s): 08/29/21 - 12/25/21 [facility] Nando Escobar Adult [address] [place] [address]- Attending Physician: Ben Viera MD Allergies, Adverse [...] 06/24/21 12:51:00 EST, Route to Pharmacy Electronically, [facility]/pharmacy #[id number], 175.2, cm, 06/07/21 9:51:00 EST, Height, 88.3, kg, 03/12/21 9:16:00 EDT, Dry... Start Date: 06/24/21 Status: Ordered Daily Simone oral tablet 1 tablet, By Mouth, Daily, # 30 tablet, 5 Refills, Maintenance, 07/29/21 13:53:00 EST, Tablet, [facility]/pharmacy #[id number], 1 tablet By Mouth Daily,x30 days, 175.2, cm, 06/07/21 9:51:00 EST, Height, 88.3, kg,03/12/21 9:16:00 EDT, Dry Weight Start Date: 07/29/21 Stop Date: 01/25/22 Status: Ordered docusate sodium 100 mg oral capsule 1 capsule, By Mouth, 2 times a day, PRN NEEDED FOR CONSTIPATION, # 60 capsule, 5 Refills, Maintenance, 06/05/21 15:57:00 EST, [facility]/pharmacy #[id number], 175.2, cm, 05/27/21 11:26:00 EST, Height, 88.3, kg, 03/12/21 9:16:00 EDT, Dry Weight Start Date: 06/05/21 Status: Ordered folic acid 1 mg oral tablet 1, tablet, By Mouth, Daily, # 30 tablet, Refills 5, Tot. Refills 5, Maintenance, 07/25/21 15:59:00 EST, Route to Pharmacy Electronically, [facility]/pharmacy #[id number], 175.2, cm, 06/07/21 9:51:00 EST, Height, [...] early if needed,Compound, 175.2, cm, 07/31/21 11:20:00 ESTReji... Start Date: 08/29/21 Status: Ordered Marian-kermit 8.6 mg oral tablet 2 tablet = 17.2 mg, By Mouth, Daily at bedtime, # 60 tablet, 5 Refills, Maintenance, 06/05/21 15:57:00 EST, [facility]/pharmacy #[id number], 175.2, cm, 05/27/21 11:26:00 EST, Height, 88.3, kg, 03/12/21 9:16:00 EDT, Dry Weight Start Date: 06/05/21 Status: Ordered LaMICtal 100 mg oral tablet 100 mg, 1, tablet, By Mouth, 2 times a day, # 60 tablet, Refills 3, Tot. Refills 3, Maintenance, 01/21/19 11:25:36 EDT, Route to Pharmacy Electronically, [id number], [facility]/pharmacy #[id number] Start Date: 01/21/19 Stop Date: 05/21/19 Status: Ordered lisinopril 40 mg oral tablet 1 tablet = 40 mg, By Mouth, Daily, # 30 tablet, 3 Refills, Maintenance, 09/17/21 10:50:00 EDT, Tablet, [facility]/pharmacy #[id number], Partial fill upon patient request if the prescription is for a schedule II opioid drug., 175.2, cm, 07/31/21 11:20:00 EST, Reji... Start Date: 09/17/21 Status: Ordered Metoprolol Tartrate 50 mg oral tablet 1.5 tablet, By Mouth, 2 times a day, # 270 tablet, 0 Refills, [facility], 175.2, cm, 11/15/21 11:18:00 EDT, Height, 88.3, kg, 03/12/21 9:16:00 EDT, Dry Weight Start Date: 12/12/21 Status: Ordered nicotine 2 mg oral transmucosal lozenge See Instructions, USE 1 LOZENGE UP TO EVERY 1 HOUR NEEDED FOR 10 DAYS, # 162 lozenge, 0 Refills,Maintenance, 12/11/21 9:38:00 EDT, [facility]/pharmacy #[id number], 16, USE 1 LOZENGE UP TO EVERY 1 HOUR NEEDED FOR 10 DAYS, 175.2, cm, 11/15/21 11:18:00 EDT, He... Start Date: 12/11/21 Status: Ordered nitroglycerin 0.4 mg sublingual tablet See Instructions, DISSOLVE 1 UNDER TONGUE EVERY 5 MINUTES NEEDED FOR CHEST PAIN INSTR:CALL MD AFTER TAKING 3 TABS IN TOTAL IN A DAY, # 100 tablet, 0 Refills, Maintenance, 08/23/21 8:07:00 EST, [facility]/pharmacy #[id number], 175.2, cm, 07/31/21 11:20:00 EST, H... Start Date: 08/23/21 Status: Ordered NovoLOG FlexPen 100 units/mL injectable solution See Instructions, INJECT 0-18 UNITS SUBCUTANEOUSLY WITH MEALS FOR SLIDING SCALES, # 15 Unknown, 2 Refills, [facility], 175.2, cm, 05/27/21 11:26:00 EST, Height, 88.3, kg, 03/12/21 9:16:00 EDT, Dry Weight Start Date: 06/04/21 Status: Ordered Pen [place], 31 G x 5 mm BD Ultra [...] capsule, 5 Refills, Maintenance, 11/19/21 11:25:00EDT, Capsule, [facility]/pharmacy #[id number], 175.2, cm, 11/15/21 11:18:00 EDT, Height, 88.3, kg, 03/12/21 9:16:00 EDT, Dry Weight Start Date: 11/19/21 Status: Ordered pregabalin 75 mg oral capsule 1 capsule = 75 mg, By Mouth, Daily, # 30 capsule, 5 Refills, Maintenance, 06/10/21 12:32:00 EST, Capsule, [facility]/pharmacy #[id number], 175.2, cm, 06/07/21 9:51:00 EST, Height, 88.3, kg, 03/12/21 9:16:00 EDT, Dry Weight Start Date: 06/10/21 Status: Ordered rosuvastatin 20 mg oral tablet 1 tablet, By Mouth, Daily, # 90 tablet, 1 Refills, Maintenance, 08/15/21 14:24:00 EST, [facility]/pharmacy#0843, 175.2, cm, 07/31/21 11:20:00 EST, Height, 88.3, kg, 03/12/21 9:16:00 EDT, Dry Weight Start Date: 08/15/21 Status: Ordered SEROquel 100 mg oral tablet 100 mg, 1, tablet, By Mouth, 2 times a day, # 60 tablet, Refills 2, Tot. Refills 2, Maintenance, 09/21/19 10:41:00 EDT, Route to Pharmacy Electronically, [facility]/pharmacy #[id number], 172, cm, 09/05/19 16:17:00 EST, [...] 3 Refills, Maintenance, 12/18/21 14:33:00 EDT, Suspension, [facility]/pharmacy #[id number], 1 drops Eyes, Both 2 times [...] # 9 Unknown, 1 Refills, [facility], 175.2, cm, 07/31/21 11:20:00 EST, Height, 88.3, [...] # 30 capsule, 5 Refills, [facility], 175.2, cm, 11/15/21 11:18:00 EDT, Height, 88.3, [...] 524 weeks therapy with sofosbuvir/weight based ribavirin 96663 inferolateral stent bare metal circumflex 7DR Marissa [...]
--- OUTSIDE RECORDS SUMMARY | 2024-06-01 12:10 | XMS_ITS | Continuity of Care Document ---
Author Organization [facility] Shawn Lazaro lt Address [address] [place] [address]- Care Team Providers Care Ruby On Rails Web Developer Name Role Phone Aylin HICKMAN, Ben Willis Primary Care Physician [facility]counter [facility] Date(s): 12/24/20 - 01/23/21 [facility] Adult [address] [place] [address]- Attending Physician: Admtr, Ar8 Admitting Physician: Admtr, [...] 10:48:07 EST, Aerosol, Route to Pharmacy Electronically, [id number], [facility]/pharmacy #[id number], 180, cm, 06/17/19 10:36:11 EST, Height Start Date: 06/17/19 Status: Ordered aspirin 81 mg oral delayed release tablet 1 tablet, By Mouth, Daily, # 30 tablet, 11 Refills, Maintenance, 06/26/20 12:19:00 EST, [facility], 175, cm, 06/25/20 16:11:00 EST, Height, 83.6, [...] Refills, Maintenance, 01/23/21 11:08:00 EDT, CR Capsule, [facility]/pharmacy #[id number], 175.3, cm, 01/21/21 12:58:00 EDT, Height, 83.6, kg, 04/23/20 17:46:00EDT, Dry Weight Start Date: 01/23/21 Stop Date: 01/18/22 Status: Ordered cholecalciferol 2000 intl units oral capsule 1 capsule = 2,000 International_Units, By Mouth, Daily, # 30 capsule, 5 Refills, Maintenance, 11/02/20 10:48:00 EDT, Capsule, [facility]/pharmacy #[id number], 175, cm, 09/21/20 11:29:00 EDT, Height, 83.6, kg, 04/23/20 17:46:00 EDT, Dry Weight Start Date: 11/02/20 Status: Ordered cloNIDine 0.2 mg oral tablet 0.2 mg, 1, tablet, By Mouth, 2 times a day, # 60 tablet, Refills 5, Tot. Refills 5, Maintenance, 09/09/20 19:43:00 EST, Route to Pharmacy Electronically, [facility]/pharmacy #[id number], 175, cm, 07/20/20 10:29:00 EST, Height, 83.6, kg, 04/23/20 17:46:00 EDT, Dry... Start Date: 09/09/20 Status: Ordered Daily Simone oral tablet 1 tablet, By Mouth, Daily, # 90 tablet, 3 Refills, Maintenance, 09/21/20 11:35:00 EDT, Tablet, [facility]/pharmacy #[id number], Partial fill upon patient request if the prescription is for a schedule II opioid drug., 1 tablet By Mouth Daily, 175, cm, 09/21/20 11:2... Start Date: 09/21/20 Status: Ordered Daily Simone oral tablet 1 tablet, By Mouth, Daily, # 30 tablet, 5 Refills, Maintenance, 09/19/20 8:25:00 EDT, Tablet, [facility]/pharmacy #[id number], 1 tablet By Mouth Daily,x30 days, 175, cm, 07/20/20 10:29:00 EST, Height, 83.6, kg, 04/23/20 17:46:00 EDT, Dry Weight Start Date: 09/19/20 Stop Date: 03/18/21 Status: Ordered docusate sodium 100 mg oral capsule 1 capsule, By Mouth, 2 times a day, PRN NEEDED FOR CONSTIPATION, # 60 capsule, 5 Refills, Maintenance, 01/22/21 12:45:00 EDT, [facility], 175.3, cm, 01/21/21 12:58:00 EDT, Height, 83.6, kg, 04/23/20 17:46:00 EDT, Dry Weight Start Date: 01/22/21 Status: Ordered folic acid 1 mg oral tablet 1, tablet, By Mouth, Daily, # 30 tablet, Refills 5, Tot. Refills 0, Maintenance, 01/18/21 14:44:00 EDT, Route to Pharmacy Electronically, [id number], 175, cm, 12/24/20 11:20:00 EDT, Height, 83.6, [...] mL, 0 Refills, Maintenance, 01/22/21 14:26:00 EDT, [facility]/pharmacy #[id number], procedure is 01/21, 1 glass every 15-30 minutes until finished, 175.3, cm, 01/21/21 12:58:00 EDT, Height, 83.6,... Start Date: 01/22/21 Status: Ordered Marian-kermit 8.6 mg oral tablet 2 tablet = 17.2 mg, By Mouth, Daily at bedtime, # 60 tablet, 5 Refills, Maintenance, 02/27/20 15:23:00 EDT, [facility]/pharmacy #[id number], 172, cm, 12/14/19 8:02:00 EDT, Height, 97.8, kg, 08/11/19 5:24:00 EST, Dry Weight Start Date: 02/27/20 Status: Ordered Golytely - oral powder for reconstitution 240 mL, By Mouth, Daily, bowel instruction, # 4,000 mL, 0 Refills, Maintenance, 06/21/20 16:44:00 EST, REC Powder, [facility]/pharmacy #[id number], Partial fill upon patient request if the prescription is for a schedule II opioid drug., 240 mL By Mouth Daily,Instr... Start Date: 06/21/20 Status: Ordered LaMICtal 100 mg oral tablet 100 mg, 1, tablet, By Mouth, 2 times a day, # 60 tablet, Refills 3, Tot. Refills 3, Maintenance, 01/21/19 11:25:36 EDT, Route to Pharmacy Electronically, [id number], [facility]/pharmacy #[id number] Start Date: 01/21/19 Stop Date: [...] Refills, Maintenance, 11/16/20 11:46:00 EDT, [facility], 175, cm, 09/21/20 11:29:00 EDT, Height, 83.6, kg, 04/23/20 17:46:00 EDT, Dry Weight Start Date: 11/16/20 Status: Ordered nicotine 2 mg oral transmucosal lozenge See Instructions, suck, up to q1 hrs 10 daily, # 162 lozenge, 1 Refills, Maintenance, 12/12/20 14:39:00 EDT, [facility]/pharmacy #[id number], suck, up to q1 hrs 10 daily, 175, cm, 09/21/20 11:29:00 EDT, Height, 83.6, kg, 04/23/20 17:46:00 EDT, Dry Weight Start Date: 12/12/20 Status: Ordered nicotine 4 mg oral transmucosal lozenge 1 lozenge = 4 mg, By Mouth, Every hour, dispense 2 boxes of 81 count as directed on package labeling, # 162 lozenge, 3 Refills, Maintenance, 09/25/20 14:39:00 EDT, [facility]/pharmacy #[id number], 1 lozenge By Mouth Every [...] 2 Refills, Soft Stop, 06/01/20 13:51:00 EST, [facility]/pharmacy #[id number], 175, cm, 05/24/20 12:46:00 EST, [...] 9:13:... Start Date: 02/01/20 Status: Ordered Pen [place], 31 G x 5 mm BD Ultra [...] tablet, 1 Refills, Maintenance, 01/08/21 14:43:00 EDT, [facility]/pharmacy#0843, 175, cm, 12/24/20 11:20:00 EDT, Height, [...] 09/21/19 10:41:00 EDT, Route to Pharmacy Electronically, [facility]/pharmacy #[id number], 172, cm, 09/05/19 16:17:00 EST, [...] Tresiba FlexTouch 200 units/mL subcutaneous solution = 16 units, Subcutaneous Infusion, Daily, at bedtime, increase [...] 2 Active ASHD; MD 2012/stent circumfl ex 2012/vessel cath;abdelrahman 2018(Confirmed) 3 Active Epididymal cyst rt(Confirmed) [...] 524 weeks therapy with sofosbuvir/weight based ribavirin 71448 inferolateral stent bare metal circumflex 7DR Molddoverno [...]
--- OUTSIDE RECORDS SUMMARY | 2024-06-01 12:10 | XMS_ITS | Continuity of Care Document ---
Author Organization [facility] Address [address] [place] [phone]- Care Team Providers Care Ceramic Tile Installation Helper Name Role Phone Carrie Kelly RIVERA Primary Care Physician [phone] Encounter [facility] [place] Date(s): 03/02/24 - 04/01/24 [facility] [address] [place] [id number]- [place] Allergies, Adverse Reactions, Alerts Substance Reaction Severity Status Bee Stings Active Immunizations Given and Recorded Vaccine Date Status Refusal Reason SARS-CoV-2(COVID-19)mRNA-LNP vac([id number]) 12/31/23 Recorded SARS-CoV-2(COVID-19)mRNA-LNP vac(xez009) 05/08/23 Recorded tetanus/diphtheria/pertussis, acel(Tdap) 10/15/23 Recorded tetanus/diphtheria/pertussis, [...] 02/03/23 Recorded zoster vaccine, inactivated 08/09/19 Recorded [id number] 12y+ bivalent booster vax 05/17/22 Recorded SARS-CoV-2 [...] adult vaccine 4 12/10/10 Given 1Result Comment: [id number] 2Result Comment: [id number] 3Admin Note: pt waited 10 mins post inj no adverse reaction noted.j a 4Admin Note: PT WAITED 10 MIN WITH NO ADVERSE REACTION. Medications albuterol 90 mcg/inh inhalation powder 1 puffs, Inhalation, Every 6 hours, PRN Wheezing/Shortness of Breath, # 1 each, 0 Refills, Maintenance, 02/15/24 13:38:00 EDT, Powder, [facility]/pharmacy #[id number], Partial fill upon patient request if the prescription is for a schedule II opioid drug., 1 puffs... Start Date: 02/15/24 Status: Ordered amLODIPine 10 mg oral tablet 10 mg, By Mouth, Daily, # 30 tablet, Refills 5, Tot. Refills 5, Maintenance, 03/11/24 11:59:00 EDT,Route to Pharmacy Electronically, [facility]/pharmacy #[id number], Partial fill upon patient request if the prescription is for a schedule II opioid drug., 168, cm,... Start Date: 03/11/24 Stop Date: 09/07/24 Status: Ordered aspirin 81 mg oral delayed release tablet 1 tablet, By Mouth, Daily, # 90 tablet, 1 Refills, Maintenance, 01/25/24 21:53:00 EDT, [facility]/pharmacy#0843, 168, cm, 01/11/24 14:42:00 EDT, Height, 93, [...] to Pharmacy Electronically, [facility]/pharmacy #[id number], Partial fill upon patient request if the prescriptio... Start Date: 02/29/24 Stop Date: 03/14/24 Status: Ordered D3 50 mcg (2000 intl units) oral capsule 1 capsule, By Mouth, Daily, # 90 capsule, 0 Refills, Maintenance, 12/09/23 14:09:00 EDT, [facility]/pharmacy #[id number], 168, cm, 10/27/23 15:34:00 EDT, Height, 93, kg, 01/28/22 14:55:00 EDT, Dry Weight Start Date: 12/09/23 Status: Ordered Daily Simone oral tablet 1 tablet, By Mouth, Daily, # 90 tablet, 1 Refills, Maintenance, 03/17/24 9:34:00 EDT, [facility]/pharmacy #[id number], 90, 1 tablet By Mouth Daily, 168, cm, 03/17/24 9:26:00 EDT, Height Start Date: 03/17/24 Status: Ordered dapagliflozin 10 mg oral tablet 1 tablet = 10 mg, By Mouth, Daily, # 30 tablet, 0 Refills, Maintenance, 01/11/24 14:46:00 EDT, Tablet, [facility]/pharmacy #0843, Partial fill upon patient request if the prescription is for a schedule II opioid drug., 168, cm, 01/11/24 14:42:00 EDT, Height,... Start Date: 01/11/24 Status: Ordered Flonase Allergy Relief 50 mcg/inh nasal spray See Instructions, 1 sprays Daily in each nostril, # 16 Gm, 0 Refills, Maintenance, 02/15/24 13:39:00 EDT, [facility]/pharmacy #[id number], Partial fill upon patient request if the prescription is for a schedule II opioid drug., 168, cm, 02/03/24 10:41:00 EDT, Height Start Date: 02/15/24 Status: Ordered folic acid 1 mg oral tablet 1, tablet, By Mouth, Daily, # 90 tablet, Refills 1, Tot. Refills 1, Maintenance, 02/17/24 7:23:00 EDT, Route to Pharmacy Electronically, [facility]/pharmacy #[id number], 168, cm, 02/15/24 13:43:00 EDT, [...] 01/21/19 11:25:36 EDT, Route to Pharmacy Electronically, [id number], [facility]/pharmacy #[id number] Start Date: 01/21/19 Stop Date: 05/21/19 Status: Ordered lisinopril 10 mg oral tablet 10 mg, 1, tablet, By Mouth, Daily, for 30 days, DECREASED STRENGTH, # 30 tablet, Refills 0, Tot. Refills 0, Acute 04/16/24 9:47:00 EDT, 03/17/24 9:47:00 EDT, Route to Pharmacy Electronically, [facility]/pharmacy #[id number], 168, cm, 03/17/24 9:46:00 EDT, Height [...] Refills, Maintenance, 03/17/24 14:24:00 EDT, [facility]/pharmacy #[id number], 168, cm, 03/17/24 9:46:00 EDT, Height Start Date: 03/17/24 Status: Ordered nitroglycerin 0.4 mg sublingual tablet See Instructions, DISSOLVE 1 UNDER TONGUE EVERY 5 MINUTES NEEDED FOR CHEST PAIN CALL MD AFTER TAKING 3 TABS IN TOTAL IN A DAY, # 100 tablet, 0 Refills, Maintenance, 10/03/22 15:53:00 EDT, [facility]/pharmacy #[id number], 175, cm, 09/17/22 13:59:00 EDT, Height,... Start Date: 10/03/22 Status: Ordered NovoLOG FlexPen 100 units/mL injectable solution See Instructions, INJECT 0-18 UNITS SUBCUTANEOUSLY WITH MEALS FOR SLIDING SCALES, # 15 Unknown, 2 Refills, 01/12/24 14:36:00 EDT, [facility]/pharmacy #[id number], MAX DAILY DOSE 54 UNITS, [...] mL, 0 Refills, Maintenance, 02/02/24 15:28:00 EDT, [place], [facility]/pharmacy #[id number], Partial fill upon patient... Start Date: 02/02/24 Status: Ordered Pen [place], 31 G x 5 mm BD Ultra [...] Refills, Maintenance, 02/04/24 16:39:00 EDT, [facility], 168, cm, 02/03/24 10:41:00 EDT, Height Start [...] 524 weeks therapy with sofosbuvir/weight based ribavirin 84444 inferolateral stent bare metal circumflex 7DR Molddoverno [...] Role: Lifetime Consulting Physician Address: Address: [address] [place] [address] [address] [facility] [address] Name: Kelly Butler NP Position: [facility] PCO Associate Professional Member Role: PCP Address: Address: [address] [place] [id number] Name: Kristin Mckenzie Position: [facility] Outreach Member Role: Lifetime Consulting Physician Name: Fortunato Sin RN Position: [facility] RN Member Role: Primary Care Nurse Name: Nury Watts RN Position: [facility] RN Member Role: Primary Care Nurse Name: Antonia Mena NP Position: [facility] Associate Professional Member Role: Lifetime Consulting Provider Address: Address: [address] [place], [place] [address] [place], [place] [address] Name: Prieto Tobin RN Position: [facility] RN Member Role: Primary Care Nurse Name: Ashleigh Reynoso RN Position: [facility] RN Member Role: Primary Care Nurse Name: Jonn Hui DO Position: [facility] Renal MD Member Role: Lifetime Consulting Physician Address: Address: [address] [place] [address] [address] [facility] [place], [place] [address] Name: Zafar CALVO, Luis Angel Rojas Position: S RN Member Role: Primary Care Nurse Name: Brandan Nogueira RN Position: S RN Member Role: Primary Care Nurse Care Team Related Persons Name: CARLOS A BORDEN Address: home [address] [place] [address] Name: LEVI BORDEN Address: home [address] [place] [address]
--- OUTSIDE RECORDS SUMMARY | 2024-06-01 12:10 | XMS_ITS | Continuity of Care Document ---
Author Organization [facility] Nando Escobar Lazaro lt Address [address] [place] [address]- Care Team Providers Care Receptionist Airline Lounge Name Role Phone Carrie LAUNDRY WORKERKelly Primary Care Physician Encounter [facility] Date(s): 09/04/22 - 10/04/22 [facility] Nando Escobar Adult [address] [place] [address]- Allergies, Adverse Reactions, Alerts Substance Reaction Severity [...] influenza virus vaccine, inactivated 04/16/10 Give n [id number] 12y+ bivalent booster vax 05/17/22 Recorded SARS-CoV-2 [...] Refills, Maintenance, 05/21/22 13:33:00 EST, [facility], 175, cm, 05/09/22 11:08:00 EDT, Height, 93, [...] Gm, 0 Refills, Maintenance, 09/05/22 9:15:00 EST, [id number], Partial fill upon patient request if the prescription is for a schedule II opioid drug., 1 sprays Nares, Both 2 times a day, 175, c... Start Date: 09/05/22 Status: Ordered folic acid 1 mg oral tablet 1, tablet, By Mouth, Daily, # 30 tablet, Refills 5, Tot. Refills 5, Maintenance, 08/15/22 10:27:00 EST, Route to Pharmacy Electronically, [facility]/pharmacy #[id number], 175, cm, 07/17/22 10:33:00 EST, Height, [...] 01/21/19 11:25:36 EDT, Route to Pharmacy Electronically, [id number], [facility]/pharmacy #[id number] Start Date: 01/21/19 Stop Date: 05/21/19 Status: Ordered lisinopril 40 mg oral tablet 1 tablet, By Mouth, Daily, # 90 tablet, 1 Refills, Maintenance, 05/07/22 14:29:00 EDT, [facility], 175, cm, 04/08/22 8:34:00 EDT, Height, 93, kg, 01/28/22 14:55:00 EDT, Dry Weight Start Date: 05/07/22 Status: Ordered Metoprolol Tartrate 50 mg oral tablet 1.5 tablet, By Mouth, 2 times a day, # 270 tablet, 1 Refills, Maintenance, 09/01/22 13:28:00 EST, [facility], 175, cm, 07/17/22 10:33:00 EST, Height, 93, kg, 01/28/22 14:55:00 EDT, Dry Weight Start Date: 09/01/22 Status: Ordered Nicotine 7 mg/24 hour patch 1 patch, Topically, Daily, # 30 patch, 1 Refills, Maintenance, 09/26/22 7:49:00 EDT, Patch, [facility]/pharmacy #[id number], Partial fill upon [...] # 15 Unknown, 2 Refills, [facility], 175.2, cm, 05/27/21 11:26:00 EST, Height, 88.3, kg, 03/12/21 9:16:00 EDT, Dry Weight Start Date: 06/04/21 Status: Ordered Pen [place], 31 G x 5 mm BD Ultra [...] tablet, 1 Refills, Maintenance, 05/21/22 13:33:00 EST, [facility], 175, cm, 05/09/22 11:08:00 EDT, Height, 93, kg, 01/28/22 14:55:00 EDT, Dry Weight Start Date: 05/21/22 Status: Ordered SEROquel 100 mg oral tablet 100 mg, 1, tablet, By Mouth, 2 times a day, PRN, # 1 tablet, Refills 2, Tot. Refills 2, Maintenance, Anxiety, 09/21/19 10:41:00 EDT, Route to Pharmacy Electronically, [facility]/pharmacy #[id number], 172, cm, 09/05/19 16:17:00 EST, Height, [...] 9 Unknown, 1 Refills, 01/21/22 15:39:00 EDT, [facility]/pharmacy #[id number], 175.2, cm, 12/18/21 14:10:00 EDT, Height... Start Date: 01/21/22 Status: Ordered Trulicity Pen 0.75 mg/0.5 mL subcutaneous solution 0.5 mL = 0.75 mg, Subcutaneous Injection, Every week, # 2.5 mL, 2 Refills, Maintenance, 04/08/22 9:12:00 EDT, Solution, [facility]/pharmacy #[id number], Partial fill upon patient request if the prescription is for a schedule II opioid drug., 175, cm, 04/08/22 8:34... Start Date: 04/08/22 Status: Ordered Ventolin HFA 108 mcg/inh inhalation aerosol with adapter 2 puffs, Inhalation, Every 4 hours, PRN for wheezing, for 180 days, # 1 each, 0 Refills, Acute 03/05/23 16:25:00 EDT, 09/06/22 16:25:00 EST, Aerosol, [facility]/pharmacy #[id number], Partial fill upon [...] 524 weeks therapy with sofosbuvir/weight based ribavirin 09888 inferolateral stent bare metal circumflex 7DR Molddoida [...] Care team information Care Team Personnel Name: Dairus HICKMAN, Jeffrey Lopez Position: [facility] Renal MD Member Role: Lifetime Consulting Physician Address: Address: [address] [place] [address] [facility] [place] [place] [address]- Name: Kelly Butler NP Position: [facility] PCO Associate Professional Member Role: PCP Address: Address: [address] [place] [address]- Name: Kristin Mckenzie Position: [facility] Outreach Member Role: Lifetime Consulting Physician Name: Prieto Tobin RN Position: [facility] RN Member Role: Primary Care Nurse Name: Jonn Hui DO Position: [facility] Renal MD Member Role: Lifetime Consulting Physician Address: Address: [address] [place], [place] [address] [place] [address]- Name: Luis Angel Stephen RN Position: [facility] RN Member Role: Primary Care Nurse Name: Tamie Baird RN Position: [facility] RN Member Role: Primary Care Nurse Care Team Related Persons Name: CARLOS A BORDEN Address: [address] [place] [address] Name: LEVI BORDEN Address: [address] [place] [address]
--- OUTSIDE RECORDS SUMMARY | 2024-06-01 12:10 | XMS_ITS | Continuity of Care Document ---
Author Organization [facility] Nando Escobar Lazaro lt Address [address] [place] [address]- Care Team Providers Care Travograph Operator Name Role Phone Carrie ATTENUATORKelly Primary Care Physician [phone] Encounter [facility] [place] Date(s): 04/08/22 - 04/15/22 [facility] Nando Escobar Adult [address] [place] [address]- Encounter Diagnosis 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) - 04/02/22 ASHD; [place] 2012/stent circumflex vessel cath;abdelrahman 2019(Discharge Diagnosis) - 04/02/22 History of acute myocardial infarction of inferior wall 2012/stent(Discharge Diagnosis) - 04/02/22 Chronic renal failure, stage 4 (severe)(Discharge Diagnosis) - 04/02/22 Hypertension(Discharge Diagnosis) - 04/02/22 Hyperlipidemia(Discharge Diagnosis) - 04/02/22 Insulin long-term use(Discharge Diagnosis) - 04/02/22 Attending Physician: Ben Viera MD Allergies, Adverse [...] 5 Refills, Maintenance, 02/11/22 11:48:00 EDT, Tablet, [facility]/pharmacy #[id number], 1 tablet By Mouth Daily,x30 days, 175, cm, 01/29/22 15:12:00 EDT, Height, 93, kg, 01/28/22 14:55:00 EDT, Dry Weight Start Date: 02/11/22 Stop Date: 08/10/22 Status: Ordered docusate sodium 100 mg oral capsule 1 capsule, By Mouth, 2 times a day, PRN NEEDED FOR CONSTIPATION, # 60 capsule, 5 Refills, Maintenance, 06/05/21 15:57:00 EST, [facility]/pharmacy #[id number], 175.2, cm, 05/27/21 11:26:00 EST, Height, 88.3, kg, 03/12/21 9:16:00 EDT, Dry Weight Start Date: 06/05/21 Status: Ordered folic acid 1 mg oral tablet 1, tablet, By Mouth, Daily, # 30 tablet, Refills 5, Tot. Refills 5, Maintenance, 04/01/22 21:30:00 EDT, Route to Pharmacy Electronically, [facility]/pharmacy #[id number], 175, cm, 02/14/22 10:10:00 EDT, [...] 01/21/19 11:25:36 EDT, Route to Pharmacy Electronically, [id number], [facility]/pharmacy #[id number] Start Date: 01/21/19 Stop Date: 05/21/19 Status: Ordered lisinopril 40 mg oral tablet 1 tablet = 40 mg, By Mouth, Daily, # 30 tablet, 3 Refills, Maintenance, 09/17/21 10:50:00 EDT, Tablet, [facility]/pharmacy #[id number], Partial fill upon patient request if the prescription is for a schedule II opioid drug., 175.2, cm, 07/31/21 11:20:00 EST, Heigh... Start Date: 09/17/21 Status: Ordered Metoprolol Tartrate 50 mg oral tablet 1.5 tablet, By Mouth, 2 times a day, # 270 tablet, 0 Refills, 03/16/22 12:48:00 EDT, [facility]/pharmacy #[id number], 175, cm, 02/14/22 10:10:00 EDT, Height, 93, kg, 01/28/22 14:55:00 EDT, Dry Weight Start Date: 03/16/22 Status: Ordered nicotine 14 mg/24 hr transdermal film, extended release 1 patch, Topically, Daily, for 30 days, # 30 patch, 1 Refills, Acute 05/13/22 12:16:00 EST, 03/14/22 12:16:00 EDT, Patch, [facility]/pharmacy #[id number], 1 patch Topically Daily,x30 days, [...] # 15 Unknown, 2 Refills, [id number], 175.2, cm, 05/27/21 11:26:00 EST, Height, 88.3, kg, 03/12/21 9:16:00 EDT, Dry Weight Start Date: 06/04/21 Status: Ordered Pen [place], 31 G x 5 mm BD [...] 5 Refills, Maintenance, 04/08/22 9:12:00 EDT, Capsule, [facility]/pharmacy #[id number], 175, cm, 04/08/22 8:34:00 EDT, Height, 93, kg, 01/28/22 14:55:00 EDT, Dry Weight Start Date: 04/08/22 Status: Ordered rosuvastatin 20 mg oral tablet 1 tablet, By Mouth, Daily, # 90 tablet, 1 Refills, [id number], 175, cm, 01/29/22 15:12:00 EDT,Height, 93, kg, 01/28/22 14:55:00 EDT, Dry Weight Start Date: 01/30/22 Status: Ordered SEROquel 100 mg oral tablet 100 mg, 1, tablet, By Mouth, 2 times a day, PRN, # 1 tablet, Refills 2, Tot. Refills 2, Maintenance, Anxiety, 09/21/19 10:41:00 EDT, Route to Pharmacy Electronically, [facility]/pharmacy #[id number], 172, cm, 09/05/19 16:17:00 EST, [...] 3 Refills, Maintenance, 04/08/22 9:09:00 EDT, Suspension, [id number], 1 drops Eyes, [...] # 30 capsule, 5 Refills, [id number], 175.2, cm, 11/15/21 11:18:00 EDT, Height, 88.3, kg, 03/12/21 9:16:00 EDT, Dry Weight Start Date: 11/17/21 Status: Ordered Problem List Condition Confirmation Course Effective Dates Status Health Status Informant Bipolar disorder Confirmed Active Cervical spondylosis Confirmed Active Chronic back pain DJD Confirmed Active Glomerulonephritis,ulloa ngial proliferative/fibrillar y 1, 2 Confirmed Active Chronic renal failure, stage 4 (severe) Confirmed Active ASHD; [place] 2012/stent circumflex 2012/3vessel cath;abdelrahman 2018 3 Confirmed Active Epididymal cyst [...] mild to moderate. 3MI 2012 circumflex stent 2012/DE 4secondary to hep C 524 weeks therapy with sofosbuvir/weight based ribavirin 30427 inferolateral stent bare metal circumflex 7DR Marissa morgan;Dr Schwartz 8hyperplatic polyp repeat screening in 2025 9repeat colonoscopy in 5 years Diagnosis Diagnosis Type Effective Dates Health Status Clinical Service Informant Type 2 diabetes mellitus with diabetic nephropathy Discharge Diagnosis 04/02/22 ASHD; [place] 2012/stent circumflex 2012/3vessel cath;abdelrahman 2018 Discharge Diagnosis 04/02/22 History of acute myocardial infarction of inferior wall 2013/stent Discharge Diagnosis 04/02/22 Chronic renal failure, stage 4 (severe) Discharge Diagnosis 04/02/22 Hypertension Discharge Diagnosis 04/02/22 Hyperlipidemia Discharge Diagnosis 04/02/22 Insulin long-term use Discharge Diagnosis 04/02/22 Vital Signs Most recent to oldest [Reference Range]: 1 Height 175 cm (04/08/22 8:34 AM) Weight 88.5 kg (04/08/22 8:34 AM) Body Mass Index [18.5-24.99 kg/m2] 28.9 kg/m2 *H* (04/08/22 8:34 AM) Weight Obtained Via Standing scale (04/08/22 8:34 AM) Social History Social History Type Response Smoking Status Former smoker, quit more than 30 days ago; Interested in cessation: No; Other: quit; Tobacco use times per day: prio 1/2-1 ppd; Total pack years: 38; Started at age: 12; Stopped at age: 63; entered on: 07/20/20 Sex Patient Care team information Personnel Name: Carrie RIVERA, Kelly Lopez Address: Address: [address] [place] [id number]
--- NOTE | 2024-06-01 13:07 | ECG_ITS ---
Test Reason : BACK PAIN Blood Pressure : / mmHG Vent. Rate : 063 BPM Atrial Rate : 063 BPM P-R Int : 148 ms QRS Dur : 082 ms QT Int : 404 ms P-R-T Axes : 047 -05 062 degrees QTc Int : 413 ms Sinus rhythm with Premature atrial complexes with Aberrant conduction Otherwise normal ECG When compared with ECG of 17-JUL-2010 12:53, Aberrant conduction is now Present Referred By: Chrissy Drew Electronically Signed By:
[2024-06-01 13:42] LABS: Basophils Absolute Auto 0.1 X10*3/uL (0.0-0.2); Basophils Percent Auto 0.4 % (0-2); Eosinophils Percent Auto 8.4 % (0-4); Hematocrit 35.7 % (42.0-52.0); Hemoglobin 12.1 g/dl (14.0-18.0); Imm Gran Abs Auto 0.04 X10*3/uL (0.00-0.03); Imm Gran Pct Auto 0.4 % (0.0-0.4); Lymphocytes Absolute Auto 1.5 X10*3/uL (1.2-4.9); Lymphocytes Percent Auto 12.9 % (20-40); MANUAL DIFF FLAG NO; Mean Corpuscular HGB Conc 33.9 g/dl (31.0-36.0); Mean Corpuscular Hemoglobin 30.4 pg (27.0-33.0); Mean Corpuscular Volume 89.7 fL (80.0-98.0); Mean Platelet Volume 9.8 fL (9.4-12.4); Monocytes Absolute Auto 0.7 X10*3/uL (0.1-1.2); Monocytes Percent Auto 6.4 % (2-11); Neutrophils Absolute Auto 8.1 x10*3/uL (2.0-8.3); Neutrophils Percent Auto 71.5 % (45-73); Platelet Count 194 X10*3/uL (160-400); Red Blood Count 3.98 X10*6/uL (4.60-5.80); Red Cell Distribution Width 13.1 % (11.0-16.0); White Blood Count 11.3 X10*3/uL (4.8-10.8)
[2024-06-01 14:00] LABS: B Type Natriuretic Peptide 474 pg/mL (<100)
[2024-06-01 14:01] LABS: Alanine Aminotransferase 22 U/L (0-40); Albumin Level 4.3 g/dL (3.5-5.0); Alkaline Phosphatase 79 U/L (39-117); Anion Gap 17 (12-20); Aspartate Amino Transferase 24 U/L (5-37); Bilirubin Direct 0.1 mg/dL (0.0-0.5); Bilirubin Total 0.3 mg/dL (0.0-1.0); Blood Urea Nitrogen 72 mg/dL (9-16); Carbon Dioxide 15 mmol/L (22-29); Chloride 118 mmol/L (96-108); Creatinine Clr Calc Pharmacy 18.3; Estimated Glomerular Filt Rate 14; Glucose Random 102 mg/dL (60-115); Magnesium 2.1 mg/dL (1.6-2.6); Potassium 5.8 mmol/L (3.3-5.1); Sodium 144 mmol/L (135-145); Total Protein 7.6 g/dL (6.5-8.0)
[2024-06-01 14:02] LABS: Troponin-I High Sensitivity 93.9 ng/L (<3.5-35.0)
--- NOTE | 2024-06-01 15:36 | PM.CNNEP ---
History of Present Illness Reason for Consult Consult date: 06/01/24 Chief Complaint Chief complaint: Back pain History of Present Illness Narrative: 68 y/o male with a medical history of CKD (sees Dr Hui, per ED baseline creatinine 2.3-2.8), DMII (pt reports controlled), CAD s/p stent placement. Pt denies other known medical history, denies known hx of heart failure or other cardiac problems. 06/01 presents with chronic left lower back pain radiating down left leg that has been steadily worsening per pt. he reports he takes lisinopril, carvedilol, and amlodipine for blood pressure control. Denies use of diuretics. states he is not sure what doses he takes. Also takes insulin for diabetes, states cannot recall all other medications he takes at this moment. Sates he had 15 tablets of 800mg ibuprofen from a tooth infection a while back, took these every 8 hours for few days straight until he ran out yesterday, then started taking tylenol which was not working for his back pain so came to the ED. Denies fatigue/malaise, poor PO intake. States he hydrates well. states he has been urinating without difficulty, though feels he chronically has urinary frequency. Denies blood in urine, pain with urination, flank pain, abdominal pain. Denies shortness of breath, chest pain. Denies nausea, vomiting, diarrhea, constipation. Denies pruritus. Denies rash. Denies other new medications other than ibuprofen. Denies other new symptoms/changes. Review of Systems Constitutional: Denies headache(s), Denies malaise and Denies weakness Denies dizziness and Denies headache(s) Cardiovascular: Denies chest pain, Denies leg edema, Denies lightheadedness and Denies dyspnea Respiratory: Denies cough and Denies dyspnea Gastrointestinal: Denies abdominal pain, Denies constipation, Denies diarrhea, Denies nausea and Denies vomiting Genitourinary: Denies hematuria, Denies oliguria, Denies difficulty urinating, Denies dysuria, Denies flank pain, Reports urinary frequency, Denies urinary hesitancy and Denies urinary incontinence Musculoskeletal: Reports back pain, Denies arthralgias, Denies joint swelling and Denies muscle cramps Skin/Breast: Denies rash Denies dizziness, Denies headache(s), Denies tremor(s) and Denies weakness PMFSH Social History Social History Advance Directives: No Advance Directives Information Provided: Yes Meds Allergies Allergy/AdvReac Type Severity Reaction Status Date / Time bee pollen [BEE STINGS] Allergy Unknown THROAT Verified 06/01/24 10:00 SWELLING Active Medications: Current Medications Sodium Chloride (Ns) 1,000 mls @ 100 mls/hr IVCONT .Q10H ONE Stop: 06/02/24 00:47 Physical Exam Vital Signs: Last Vital Signs Temp 97.6 F 06/01/24 14:21 Pulse 79 06/01/24 14:21 Resp 16 06/01/24 14:21 BP 153/51 H 06/01/24 14:21 Pulse Ox 96 06/01/24 14:21 O2 Del Method Room Air 06/01/24 14:21 BMI result Body Mass Index 28.8 Const General: no acute distress, alert and awake Resp Effort & Inspection: normal respiratory effort and able to speak in complete sentences Auscultation: clear to auscultation bilaterally Cardio Jugular venous distension: no JVD Rate: regular rate Rhythm: regular rhythm Heart sounds: S1 normal heart sound present and S2 normal heart sound present GI Palpation (GI): Soft to palpation and nontender Auscultation: abnormal bowel sounds General: Yes no CVA tenderness Back/Spine/Pelvis Back: no CVA tenderness Skin Lesions: no lesions Rashes: no rashes Neuro Other: no myoclonus or asterixis Extrem General: Yes edema (trace BLE edema) Results Lab Results 06/01/24 13:33 06/01/24 13:33 Lab results: Chemistry 06/01/24 13:33 Sodium 144 Potassium 5.8 H Carbon Dioxide 15 L BUN 72 H Creatinine 4.23 H* Calcium 9.0 Hematology 06/01/24 13:33 WBC 11.3 H Hgb 12.1 L Plt Count 194 Assessment and Plan (1) Acute kidney injury superimposed on CKD: Status: Acute (2) Hyperkalemia: Status: Acute (3) Metabolic acidosis: Status: Acute Plan ESTELA on CKD most likely secondary to use of high dose NSAID over last several days in conjunction with JESUSITA inhibitor. recommend CT scan to rule out obstruction as cause of ESTELA continue IVF as ordered NS 100mL/hr recommend 10gm Lokelma for management of hyperkalemia will check urine protein/creatinine ratio and urine sodium (UA pending) Avoid nephrotoxins, regular blood pressure checks strict I&O monitoring No absolute indications for dialysis at this time will continue to follow Discussed with Dr Orosco Procedures Date of Service Date of Service: 06/01/24
[2024-06-01] MEDS: 0.9 % Sodium Chloride 1,000 ML 100 ML IVCONT (15:39)
[2024-06-01 16:25] LABS: Appearance Urine Clear; Color Urine Yellow; Glucose Urine UA 250 mg/dL (Negative); Leukocyte Esterase Urine Negative (Negative); Nitrite Urine Negative (Negative); PH 5.5 (5.0-9.0); UMIC TRIGGER UACC YES; Urine Blood Negative (Negative); Urine Ketones Negative (Negative); Urine Protein 300 (3+) mg/dL (Neg-Trace)
[2024-06-01 16:40] LABS: Creatinine Urine 20.34 mg/dL; Protein/Creatinine Ratio, Ur 8.95 (<0.2); Total Protein Urine Random 182 mg/dL (<12)
[2024-06-01 16:58] LABS: Bacteria Urine None Seen (None Seen); Hyaline Casts Urine 0-2 /LPF (0-2); RBC Urine 0-2 /HPF (0-2); Squamous Epithelial Cell Urine 0-2 /HPF (0-2); WBC Urine 0-5 /HPF (0-5)
[2024-06-01] MEDS: Morphine Sulfate 4 MG/ML CARTRIDGE IVPUSH (17:24)
[2024-06-01] MEDS: Sodium Zirconium Cyclosilicate 10 GM POWD.PACK PO (17:53)
[2024-06-01 18:58] LABS: Troponin-I High Sensitivity 104.7 ng/L (<3.5-35.0)
--- NOTE | 2024-06-01 18:58 | PC.NURSE ---
Lab called for critical trop 104.7
--- NOTE | 2024-06-01 18:59 | ECG_ITS ---
Test Reason : elevated trop Blood Pressure : / mmHG Vent. Rate : 083 BPM Atrial Rate : 083 BPM P-R Int : 160 ms QRS Dur : 080 ms QT Int : 382 ms P-R-T Axes : 055 -14 065 degrees QTc Int : 448 ms Normal sinus rhythm Normal ECG When compared with ECG of 01-JUN-2024 13:16, No significant change was found Referred By: Chrissy Drew Electronically Signed By:EVANGELINA FISHER
[2024-06-01 20:11] LABS: Alanine Aminotransferase 18 U/L (0-40); Albumin Level 4.1 g/dL (3.5-5.0); Alkaline Phosphatase 81 U/L (39-117); Anion Gap 20 (12-20); Aspartate Amino Transferase 19 U/L (5-37); Bilirubin Total 0.3 mg/dL (0.0-1.0); Blood Urea Nitrogen 66 mg/dL (9-16); Calcium 8.9 mg/dL (8.4-10.2); Carbon Dioxide 14 mmol/L (22-29); Chloride 120 mmol/L (96-108); Creatinine Clr Calc Pharmacy 19.7; Estimated Glomerular Filt Rate 15; Glucose Random 90 mg/dL (60-115); Sodium 149 mmol/L (135-145); Total Protein 7.1 g/dL (6.5-8.0)
--- NOTE | 2024-06-01 20:22 | PM.IMHP ---
History of Present Illness Date of Service: 06/01/24 Attending physician on admission: [facility] Chief Complaint: Lower back pain Pt is a 68-year-old male with a PMH significant for HTN, HLD, CAD s/p stenting around 2016 and 2018, diabetes, CKD [address] Hui, and chronic lower back pain who presents to the ED for evaluation of worsening lower back pain radiating to left leg. Patient states he has had chronic lower back pain for many years. Previously diagnosed with lumbar stenosis and herniated disc. Follows with [facility]. Reports aggravated his lower back secondary to getting in and out of an elevated truck 1-1/2 months ago. Has been having increased lower back pain radiating down left leg to foot with left leg weakness. Initially presented to [facility] and had an MRI on 05/24. Patient does not know the results of the MRI, but they were sent to the office and patient was scheduled for a follow-up on 07/26/2024. However pt reports his pain is too much to wait that long and was hoping to establish with Dr. Thorpe here. Denies any other medical complaints though notes he has not been eating or drinking well lately. No fever, chills, nausea, vomiting, abdominal pain. Denies chest pain/pressure, palpitations. No shortness a breath or difficulty breathing. Denies orthopnea or PND. The patient notes he has been taking ibuprofen recently for pain. In the ED pt was Labs were significant for potassium 5.8, BUN 72, creatinine 4.23 (baseline 2.6-2.8), initial troponin 93.9 with repeat 104.7, BNP 474. No leukocytosis. Stable H&H. UA negative for UTI but showed random total protein 182 and protein/creatinine ratio of 8.95. CXR showed no acute cardiopulmonary process. CT of abdomen and pelvis showed no acute abnormality, but small pericardial effusion and multilevel spondylolysis of the spine. Venous duplex of left lower extremity negative for DVT. EKGx2 demonstrated normal sinus rhythm without significant ST elevations or depressions. Pt was treated with morphine, Lokelma, and IVF. Pt will be admitted to the hospital for treatment and further evaluation of ESTELA on CKD likely prerenal. Review of Systems Review of Systems: Negative except for that which is stated in the [facility] Medical History (Updated 06/01/24 @ 21:33 by TEOFILO Barros) CAD (coronary artery disease) Chronic lower back pain Non-insulin dependent type 2 diabetes mellitus HLD (hyperlipidemia) HTN (hypertension) Social History Unable to assess alcohol history related to: Unknown Patient Tobacco Use Status: Never used Tobacco Use of substances other than those prescribed or required for medical reasons: No Advance Directives: No Advance Directives Information Provided: Yes Nutrition Risks: No Nutritional Risk Meds Allergies Allergy/AdvReac Type Severity Reaction Status Date / Time bee pollen [BEE STINGS] Allergy Unknown THROAT Verified 06/01/24 10:00 SWELLING Active Medications: Current Medications Sodium Chloride (Ns) 1,000 mls @ 100 mls/hr IVCONT .Q10H ONE Stop: 06/02/24 00:47 Last Infusion: 06/01/24 19:39 Dose: Infused Sodium Chloride (Ns) 1,000 mls @ 100 mls/hr IV .Q10H ULISES Stop: 06/02/24 15:44 Home Medications ?Medication ?Instructions ?Recorded ?Confirmed ?Last Taken ?Type amlodipine 10 mg tablet 10 mg PO DAILY 06/01/24 Unknown History aspirin 81 mg tablet,delayed 81 mg PO DAILY 06/01/24 Unknown History release carvedilol 6.25 mg tablet 6.25 mg PO BID 06/01/24 Unknown History cholecalciferol (vitamin D3) 50 50 mcg PO DAILY 06/01/24 Unknown History mcg (2,000 unit) capsule dapagliflozin propanediol 5 mg 5 mg PO QAM 06/01/24 Unknown History tablet (Farxiga) docusate sodium 100 mg capsule 100 mg PO BID PRN constipation 06/01/24 Unknown History folic acid 1 mg tablet 1 mg PO DAILY 06/01/24 Unknown History lamotrigine 100 mg tablet 100 mg PO BID 06/01/24 Unknown History latanoprost 0.005 % eye drops 1 drp ophthalmic (eye) BEDTIME 06/01/24 Unknown History lisinopril 10 mg tablet 10 mg PO DAILY 06/01/24 Unknown History lisinopril 20 mg tablet 20 mg PO DAILY 06/01/24 Unknown History lorazepam 1 mg tablet 1 mg PO QID 06/01/24 Unknown History multivitamin with folic acid 400 1 tab PO DAILY 06/01/24 Unknown History mcg tablet (Daily-Simone (with folic acid)) quetiapine 100 mg tablet 100 mg PO TID 06/01/24 Unknown History rosuvastatin 20 mg tablet 20 mg PO BEDTIME 06/01/24 Unknown History sennosides 8.6 mg tablet (senna) 17.2 mg PO BEDTIME PRN constipation 06/01/24 Unknown History Physical Exam Vital Signs and Narrative: Vital Signs: Last Vital Signs Temp 97.8 F 06/01/24 20:08 Pulse 79 06/01/24 20:08 Resp 16 06/01/24 20:08 BP 144/48 H 06/01/24 20:08 Pulse Ox 97 06/01/24 20:08 O2 Del Method Room Air 06/01/24 20:08 BMI result Body Mass Index 28.8 General: AOx3, no acute distress Resp: CTA bilaterally CVS: S1, S2, RRR GI: +BS, NT, no distention Skin: Warm, dry Back: Left lower back tendernes Neuro: Cranial nerves II-XII grossly intact bilaterally. Motor grossly intact bilaterally. Preserved sensation to light touch on lower extremities bilaterally. Reduced strength of lower extremities, 3/5 right and 1/5 left. Extremities: 1+ bilateral lower leg edema around ankles Psych: Appropriate affect Results Labs 06/02/24 05:36 06/02/24 05:36 Labs: Laboratory Results - last 24 hr 06/01/24 06/01/24 06/01/24 13:32 13:33 16:15 MCV 89.7 MCH 30.4 MCHC 33.9 RDW 13.1 Plt Count 194 MPV 9.8 Immature Gran % (Auto) 0.4 Neut % (Auto) 71.5 Lymph % (Auto) 12.9 L [place] % (Auto) 6.4 Eos % (Auto) 8.4 H Baso % (Auto) 0.4 Lymph # (Auto) 1.5 [place] # (Auto) 0.7 Eos # (Auto) 1.0 H Baso # (Auto) 0.1 Abs Immat Gran (auto) 0.04 H Absolute Neuts (auto) 8.1 Absolute Nucleated RBC 0.000 Nucleated RBC % (auto) 0.0 Anion Gap 17 Estim Creat Clear Calc 18.3 Estimated GFR 14 Random Glucose 102 Calcium 9.0 Magnesium 2.1 Total Bilirubin 0.3 Direct Bilirubin 0.1 AST 24 ALT 22 Alkaline Phosphatase 79 Total Creatine Kinase 78 Troponin I High Sens 93.9 H B-Natriuretic Peptide 474 H Total Protein 7.6 Albumin 4.3 Urine Color Yellow Urine Appearance Clear Urine pH 5.5 Ur Specific [place] 1.010 Urine Protein 300 (3+) H Urine Glucose (UA) 250 H Urine Ketones Negative Urine Blood Negative Urine Nitrite Negative Ur Leukocyte Esterase Negative Urine RBC 0-2 Urine WBC 0-5 Ur Squamous Epith Cells 0-2 Urine Bacteria None Seen Hyaline Casts 0-2 U Random Total Protein 182 H Ur Random Sodium 93.0 Urine Creatinine 20.34 Protein/Creatinin Ratio 8.95 H 06/01/24 06/01/24 18:31 19:51 MCV MCH MCHC RDW Plt Count MPV Immature Gran % (Auto) Neut % (Auto) Lymph % (Auto) [place] % (Auto) Eos % (Auto) Baso % (Auto) Lymph # (Auto) [place] # (Auto) Eos # (Auto) Baso # (Auto) Abs Immat Gran (auto) Absolute Neuts (auto) Absolute Nucleated RBC Nucleated RBC % (auto) Anion Gap 20 Estim Creat Clear Calc 19.7 Estimated GFR 15 Random Glucose 90 Calcium 8.9 Magnesium Total Bilirubin 0.3 Direct Bilirubin AST 19 ALT 18 Alkaline Phosphatase 81 Total Creatine Kinase Troponin I High Sens 104.7 H* B-Natriuretic Peptide Total Protein 7.1 Albumin 4.1 Urine Color Urine Appearance Urine pH Ur Specific [place] Urine Protein Urine Glucose (UA) Urine Ketones Urine Blood Urine Nitrite Ur Leukocyte Esterase Urine RBC Urine WBC Ur Squamous Epith Cells Urine Bacteria Hyaline Casts U Random Total Protein Ur Random Sodium Urine Creatinine Protein/Creatinin Ratio Imaging Radiologist's Impressions: Impressions Venous Duplex 06/01/24 13:44 IMPRESSION: No evidence of deep venous thrombosis involving the left lower extremity. Electronically signed by: Vonda Fuentes MD 06/01/2024 03:34 PM EST RP Chest X-Ray 06/01/24 16:08 IMPRESSION: Unremarkable examination. Electronically signed by: Vonda Fuentes MD 06/01/2024 04:47 PM EST RP Abdomen/Pelvis CT 06/01/24 16:11 IMPRESSION: 1. No acute abnormality CT scan abdomen pelvis. 2. Small pericardial effusion. 3. Multilevel degenerative spondylosis of the spine. Fleischner guidelines were followed. Electronically signed by: Cameron Ingram MD 06/01/2024 08:03 PM EST Assessment and Plan (1) Acute kidney injury superimposed on CKD: Status: Acute Plan Pt is a 68-year-old male with a PMH significant for HTN, HLD, CAD s/p stenting around 2016 and 2017, mim-[id number] type 2 diabetes, CKD [address] Hui, and chronic lower back pain who presents to the ED for evaluation of worsening lower back pain radiating to left leg. Pt will be admitted to the hospital for treatment and further evaluation of ESTELA on CKD likely prerenal. ESTELA on CKD3 Creatinine 4.23 at time of presentation, elevated from baseline of 2.6-2.8 CT of abdomen/pelvis negative, UA showing proteinuria and protein/creatinine ratio elevated at 8.95 Likely prerenal, unclear if iatrogenic from lisinopril or ibuprofen Patient received IVF bolus in the ED Will be placed on maintenance fluids Nephrology consult, follows with Dr. Hui from [facility] Follow creatinine Hyperkalemia Potassium elevated at 5.8 Likely in the setting of above Patient given Lokelma in the ED Follow potassium Monitor on telemetry Elevated troponins Initial troponin 93.9 with repeat 104.7, baseline unknown Patient asymptomatic, EKG without ischemic changes Monitor on telemetry Elevated BNP BNP 474, baseline unknown Patient with no known CHF history Patient receiving IVF due to AKA on CKD Trend BNP tomorrow HTN Hold lisinopril Continue all other home meds CAD/HLD Continue aspirin, statin Roy-mdknlko-vcnbtqbaw type 2 diabetes Continue home meds Sliding-scale insulin, diabetic diet Full Code Attending:?Dr. Loving DVT Prophylaxis: Heparin Pt will require a hospitalization of at least two nights for treatment of?ESTELA on CKD and hyperkalemia that will require administration of IV fluids, close monitoring of electrolytes and kidney function, and specialist consultation with Nephrology. Quality Stroke Does the patient have a stroke diagnosis?: No VTE Prior VTE?: No VTE Risk Level:: Medical - moderate - high VTE Device Contraindication: Treatment Not Indicated VTE Drug Contraindication: N/A - Med Ordered
[2024-06-01] MEDS: 0.9 % Sodium Chloride 1,000 ML 100 ML IV (21:02)
--- OUTSIDE RECORDS SUMMARY | 2024-06-01 21:44 | XMS_ITS | Continuity of Care Document ---
Author Organization [facility] Shawn Lazaro lt Address [address] [place] [address]- Care Team Providers Care Cigar Tobacco Rehandler Name Role Phone Carrie Kelly RIVERA Primary Care Physician [facility] Date[facility]): 04/24/22 - 05/24/22 [facility] Adult [address] [place] [address]- Allergies, Adverse Reactions, Alerts Substance Reaction Severity [...] Refills, Maintenance, 05/21/22 13:33:00 EST, [facility], 175, cm, 05/09/22 11:08:00 EDT, Height, 93, [...] 04/01/22 21:30:00 EDT, Route to Pharmacy Electronically, [facility]/pharmacy #[id number], 175, cm, 02/14/22 10:10:00 EDT, [...] 01/21/19 11:25:36 EDT, Route to Pharmacy Electronically, [id number], [facility]/pharmacy #[id number] Start Date: 01/21/19 Stop Date: 05/21/19 Status: Ordered lisinopril 40 mg oral tablet 1 tablet, By Mouth, Daily, # 90 tablet, 1 Refills, Maintenance, 05/07/22 14:29:00 EDT, [facility] STORE 09421, 175, cm, 04/08/22 8:34:00 EDT, Height, 93, kg, 01/28/22 14:55:00 EDT, Dry Weight Start Date: 05/07/22 Status: Ordered Metoprolol Tartrate 50 mg oral tablet 1.5 tablet, By Mouth, 2 times a day, # 270 tablet, 0 Refills, 05/21/22 10:19:00 EST, [facility]/pharmacy #[id number], 175, cm, 05/09/22 11:08:00 EDT, Height, 93, kg, 01/28/22 14:55:00 EDT, Dry Weight Start Date: 05/21/22 Status: Ordered nicotine 14 mg/24 hr transdermal film, extended release 1 patch, Topically, Daily, for 30 days, # 30 patch, 1 Refills, Acute 06/27/22 15:44:00 EST, 04/28/22 15:44:00 EDT, Patch, [facility]/pharmacy #0843, 1 patch Topically Daily,x30 days, [...] 0 Refills, Maintenance, 12/31/21 17:21:00 EDT, [facility]/pharmacy #0843, 175.2, cm, 12/18/21 14:10:00 EDT, Height... Start Date: 12/31/21 Status: Ordered NovoLOG FlexPen 100 units/mL injectable solution See Instructions, INJECT 0-18 UNITS SUBCUTANEOUSLY WITH MEALS FOR SLIDING SCALES, # 15 Unknown, 2 Refills, [facility] STORE 56287, 175.2, cm, 05/27/21 11:26:00 EST, Height, 88.3, kg, 03/12/21 9:16:00 EDT, Dry Weight Start Date: 06/04/21 Status: Ordered Pen [place], 31 G x 5 mm BD Ultra [...] 5 Refills, Maintenance, 04/08/22 9:12:00 EDT, Capsule, [facility]/pharmacy #0843, 175, cm, 04/08/22 8:34:00 EDT, Height, 93, kg, 01/28/22 14:55:00 EDT, Dry Weight Start Date: 04/08/22 Status: Ordered rosuvastatin 20 mg oral tablet 1 tablet, By Mouth, Daily, # 90 tablet, 1 Refills, Maintenance, 05/21/22 13:33:00 EST, [facility] STORE 10278, 175, cm, 05/09/22 11:08:00 EDT, Height, 93, [...] 3 Refills, Maintenance, 04/08/22 9:09:00 EDT, Suspension, [facility]/pharmacy #0843, 1 drops Eyes, Both 2 [...] failure, stage 4 (severe) Confirmed Active ASHD; [place] 2012/stent circumflex vessel [...] mild to moderate. 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 2013/[place] 4secondary to hep C 524 weeks therapy with sofosbuvir/weight based ribavirin 10818 inferolateral stent bare metal circumflex 7DR Molddoverno [...] Member Role: Lifetime Consulting Physician Address: Address: [address] [place] [address] [facility] [place] [address]- Name: Kelly Butler NP Position: [facility] PCO Associate Professional Member Role: PCP Address: Address: [address] [place] [address]- Name: Kristin Mckenzie Position: [facility] Outreach Member Role: Lifetime Consulting Physician Name: Prieto Tobin RN Position: [facility] RN Member Role: Primary Care Nurse Name: Jonn Hui DO Position: [facility] Renal MD Member Role: Lifetime Consulting Physician Address: Address: [address] [place] [address] [address] [facility] [place], [place] [address] Name: Zafar CALVO, Luis Angel Rojas Position: S RN Member Role: Primary Care Nurse Name: Tamie Baird RN Position: [facility] RN Member Role: Primary Care Nurse Care Team Related Persons Name: CARLOS A BORDEN Address: home [address] [place] [address] Name: LEVI BORDEN Address: home [address] [place] [address]
--- OUTSIDE RECORDS SUMMARY | 2024-06-01 21:46 | XMS_ITS | Continuity of Care Document ---
Author Organization [facility] Address [address] [place] [address]- Care Team Providers Care Paving Stone Installer Name Role Phone Carrie Kelly RIVERA Primary Care Physician [place] [facility] [place]22 [facility] [address] [place] [address]- Allergies, Adverse Reactions, Alerts Substance Reaction Severity [...] 04/01/22 21:30:00 EDT, Route to Pharmacy Electronically, [facility]/pharmacy #[id number], 175, cm, 02/14/22 10:10:00 [...] 01/21/19 11:25:36 EDT, Route to Pharmacy Electronically, [id number], [facility]/pharmacy #[id number] Start Date: 01/21/19 Stop Date: 05/21/19 Status: Ordered lisinopril 40 mg oral tablet 1 tablet = 40 mg, By Mouth, Daily, # 30 tablet, 3 Refills, Maintenance, 09/17/21 10:50:00 EDT, Tablet, [facility]/pharmacy #0843, Partial fill upon patient request if the prescription is for a schedule II opioid drug., 175.2, cm, 07/31/21 11:20:00 EST, Heigh... Start Date: 09/17/21 Status: Ordered Metoprolol Tartrate 50 mg oral tablet 1.5 tablet, By Mouth, 2 times a day, # 270 tablet, 0 Refills, 03/16/22 12:48:00 EDT, [facility], 175, cm, 02/14/22 10:10:00 EDT, Height, 93, kg, 01/28/22 14:55:00 EDT, Dry Weight Start Date: 03/16/22 Status: Ordered nicotine 14 mg/24 hr transdermal film, extended release 1 patch, Topically, Daily, for 30 days, # 30 patch, 1 Refills, Acute 05/13/22 12:16:00 EST, 03/14/22 12:16:00 EDT, Patch, [facility]/pharmacy #0843, 1 patch Topically [...] Refills, Maintenance, 12/31/21 17:21:00 EDT, [facility]/pharmacy #0843, 175.2, cm, 12/18/21 14:10:00 EDT, Height... Start Date: 12/31/21 Status: Ordered NovoLOG FlexPen 100 units/mL injectable solution See Instructions, INJECT 0-18 UNITS SUBCUTANEOUSLY WITH MEALS FOR SLIDING SCALES, # 15 Unknown, 2 Refills, [facility] STORE 64932, 175.2, cm, 05/27/21 11:26:00 EST, Height, 88.3, kg, 03/12/21 9:16:00 EDT, Dry Weight Start Date: 06/04/21 Status: Ordered Pen [place], 31 G x 5 mm BD [...] Refills, Maintenance, 11/19/21 11:25:00EDT, Capsule, [facility]/pharmacy #0843, 175.2, cm, 11/15/21 11:18:00 EDT, Height, 88.3, kg, 03/12/21 9:16:00 EDT, Dry Weight Start Date: 11/19/21 Status: Ordered rosuvastatin 20 mg oral tablet 1 tablet, By Mouth, Daily, # 90 tablet, 1 Refills, [facility] STORE 74608, 175, cm, 01/29/22 15:12:00 EDT,Height, 93, kg, 01/28/22 14:55:00 EDT, Dry Weight Start Date: 01/30/22 Status: Ordered SEROquel 100 mg oral tablet 100 mg, 1, tablet, By Mouth, 2 times a day, PRN, # 1 tablet, Refills 2, Tot. Refills 2, Maintenance, Anxiety, 09/21/19 10:41:00 EDT, Route to Pharmacy Electronically, [facility]/pharmacy #[id number], 172, cm, 09/05/19 [...] Maintenance, 12/18/21 14:33:00 EDT, Suspension, [facility]/pharmacy #0843, 1 drops Eyes, [...] # 30 capsule, 5 Refills, [facility], 175.2, cm, 11/15/21 11:18:00 EDT, Height, 88.3, [...] 524 weeks therapy with sofosbuvir/weight based ribavirin 91405 inferolateral stent bare metal circumflex 7DR Molddoverno [...] Personnel Name: Kelly Butler NP Address: Address: [address] [place] [id number]-
--- OUTSIDE RECORDS SUMMARY | 2024-06-01 21:46 | XMS_ITS | Continuity of Care Document ---
Author Organization [facility] Shawn Lazaro lt Address [address] [place] [address]- Care Team Providers Care Chlorobutadiene Scrubber Operator Name Role Phone Carrie Kelly RIVERA Primary Care Physician [phone] [facility]counter [facility] Date[facility]s): 03/06/23 - 04/05/23 [facility] Nando Palominoley Adult [address] [place] [address]- Allergies, Adverse Reactions, Alerts Substance Reaction Severity [...] influenza virus vaccine, inactivated 04/16/10 Give n [id number] 12y+ bivalent booster vax 05/17/22 Recorded SARS-CoV-2 [...] tablet, 1 Refills, Maintenance, 12/30/22 14:35:00 EDT, [facility]/pharmacy#0843, 175, cm, 10/09/22 16:51:00 EDT, Height, [...] Refills, Maintenance, 01/07/23 21:36:00 EDT, [facility], 90, TAKE 1 TABLET BY MOUTH EVERY [...] capsule, 5 Refills, Maintenance, 07/18/22 11:59:00 EST, [facility]/pharmacy #0843, 175, cm, 07/17/22 10:33:00 EST, Height, 93, kg, 01/28/22 14:55:00 EDT, Dry Weight Start Date: 07/18/22 Status: Ordered Flonase 50 mcg/inh nasal spray 1 sprays, Nares, Both, 2 times a day, # 16 Gm, 0 Refills, Maintenance, 09/05/22 9:15:00 EST, [place],[facility]/pharmacy #0843, Partial fill upon patient request if the prescription is for a schedule II opioid drug., 1 sprays Nares, Both 2 times a day, 175, c... Start Date: 09/05/22 Status: Ordered folic acid 1 mg oral tablet 1, tablet, By Mouth, Daily, # 90 tablet, Refills 1, Tot. Refills 1, Maintenance, 01/08/23 13:00:00 EDT, Route to Pharmacy Electronically, [facility]/pharmacy #[id number], 175, cm, 10/09/22 16:51:00 EDT, [...] 01/21/19 11:25:36 EDT, Route to Pharmacy Electronically, [id number], [facility]/pharmacy #[id number] Start Date: 01/21/19 Stop Date: 05/21/19 Status: Ordered lisinopril 40 mg oral tablet 1 tablet, By Mouth, Daily, # 90 tablet, 0 Refills, Maintenance, 12/29/22 11:59:00 EDT, [facility]/pharmacy#0843, 175, cm, 10/09/22 16:51:00 EDT, Height, 93, kg, 01/28/22 14:55:00 EDT, Dry Weight Start Date: 12/29/22 Status: Ordered Metoprolol Tartrate 50 mg oral tablet 1.5 tablet, By Mouth, 2 times a day, # 270 tablet, 1 Refills, Maintenance, 02/20/23 7:15:00 EDT, [facility], 175, cm, 10/09/22 16:51:00 EDT, Height, 93, kg, 01/28/22 14:55:00 EDT, Dry Weight Start Date: 02/20/23 Status: Ordered nicotine 14 mg/24 hr transdermal film, extended release 1 patch, Topically, Daily, for 30 days, further refills will require enrollment in a cessation program, # 30 patch, 0 Refills, Acute 04/23/23 14:51:00 EDT, 03/24/23 14:51:00 EDT, Patch, [facility]/pharmacy #[id number], 1 patch Topically Daily,x30 days,Instr:furthe... Start Date: 03/24/23 Stop Date: 04/23/23 Status: Ordered nitroglycerin 0.4 mg sublingual tablet See Instructions, DISSOLVE 1 UNDER TONGUE EVERY 5 MINUTES NEEDED FOR CHEST PAIN CALL MD AFTER TAKING 3 TABS IN TOTAL IN A DAY, # 100 tablet, 0 Refills, Maintenance, 10/03/22 15:53:00 EDT, [facility]/pharmacy #0843, 175, cm, 09/17/22 13:59:00 EDT, Height,... Start Date: 10/03/22 Status: Ordered NovoLOG FlexPen 100 units/mL injectable solution See Instructions, INJECT 0-18 UNITS SUBCUTANEOUSLY WITH MEALS FOR SLIDING SCALES, # 15 Unknown, 2 Refills, 11/07/22 0:09:00 EDT, [facility]/pharmacy #[id number], 175, cm, 10/09/22 16:51:00 EDT, Height, 93, kg, 01/28/22 14:55:00 EDT, Dry Weight Start Date: 11/07/22 Status: Ordered Pen [place], 31 G x 5 mm BD [...] capsule, 2 Refills, Maintenance, 08/07/22 12:55:00EST, Capsule, [facility]/pharmacy #0843, 175, cm, 07/17/22 10:33:00 EST, Height, 93, kg, 01/28/22 14:55:00EDT, Dry Weight Start Date: 08/07/22 Status: Ordered rosuvastatin 20 mg oral tablet 1 tablet, By Mouth, Daily, # 90 tablet, 1 Refills, Maintenance, 03/29/23 14:43:00 EDT, [facility], 175, cm, 10/09/22 16:51:00 EDT, Height, 93, kg, 01/28/22 14:55:00 EDT, Dry Weight Start Date: 03/29/23 Status: Ordered Senna 8.6 mg oral tablet 1 or 2 tablets, By Mouth, Daily at bedtime, PRN, # 60 tablet, Refills 5, Tot. Refills 5, Maintenance, Constipation, 11/03/22 15:04:00 EDT, Route to Pharmacy Electronically, [facility]/pharmacy #0843 Tablet,Partial fill upon patient request if the prescripti... Start Date: 11/03/22 Status: Ordered SEROquel 100 mg oral tablet 100 mg, 1, tablet, By Mouth, 2 times a day, PRN, # 1 tablet, Refills 2, Tot. Refills 2, Maintenance, Anxiety, 09/21/19 10:41:00 EDT, Route to Pharmacy Electronically, [facility]/pharmacy #[id number], 172, cm, 09/05/19 16:17:00 EST, [...] 9 Unknown, 1 Refills, 01/21/22 15:39:00 EDT, [facility]/pharmacy #0843, 175.2, cm, 12/18/21 14:10:00 EDT, Height... Start Date: 01/21/22 Status: Ordered Trulicity Pen 0.75 mg/0.5 mL subcutaneous solution 0.5 mL = 0.75 mg, Subcutaneous Injection, Every week, # 2.5 mL, 1 Refills, Maintenance, 01/13/23 9:59:00 EDT, Solution, [facility]/pharmacy #[id number], 175, cm, 10/09/22 16:51:00 EDT, Height, 93, kg, 01/28/22 14:55:00 EDT, Dry Weight Start Date: 01/13/23 Status: Ordered Vitamin D3 2000 intl units oral capsule 1 capsule, By Mouth, Daily, # 90 capsule, 1 Refills, Maintenance, 11/14/22 12:24:00 EDT, [facility]/pharmacy #[id number], 175, cm, 10/09/22 16:51:00 EDT, [...] 524 weeks therapy with sofosbuvir/weight based ribavirin 28996 inferolateral stent bare metal circumflex 7DR Marissa [...] Team Personnel Name: Jeffrey Mccoy MD Position: [facility] Renal MD Member Role: Lifetime Consulting Physician Address: Address: [address] [place] [address] [facility] [place] [address]- Name: Kelly Butler NP Position: [facility] PCO Associate Professional Member Role: PCP Address: Address: [address] [place] [address]- Name: Kristin Mckenzie Position: [facility] Outreach Member Role: Lifetime Consulting Physician Name: Prieto Tobin RN Position: [facility] RN Member Role: Primary Care Nurse Name: Jonn Hui DO Position: [facility] Renal MD Member Role: Lifetime Consulting Physician Address: Address: [address] [place], [place] [address] [place], [place] [address] Name: Luis Angel Stephen RN Position: [facility] RN Member Role: Primary Care Nurse Care Team Related Persons Name: CARLOS A BORDEN Address: [address] [place] [address] Name: LEVI BORDEN Address: home [address] [place] [address]
--- OUTSIDE RECORDS SUMMARY | 2024-06-01 21:46 | XMS_ITS | Continuity of Care Document ---
Author Organization [facility] Shawn Lazaro lt Address [address] [place] [address]- Care Team Providers Care Thread Cutter Name Role Phone Carrie Kelly RIVERA Primary Care Physician [facility] Date[facility]): 05/07[facility]23 - 06/06/23 [facility] Adult [address] [place] [address]- Allergies, Adverse Reactions, Alerts Substance Reaction Severity Status Bee Stings Active Immunizations Given and Recorded Vaccine Date Status Refusal Reason SARS-CoV-2(COVID-19)mRNA-LNP vac([id number]) 05/08/23 Recorded pneumococcal 20-valent conjugate vaccine 1 [...] 02/03/23 Recorded zoster vaccine, inactivated 08/09/19 Recorded [id number] 12y+ bivalent booster vax 05/17/22 Recorded SARS-CoV-2 [...] adult vaccine 4 12/10/10 Given 1Result Comment: [id number] 2Result Comment: [id number] 3Admin Note: pt waited 10 mins post [...] Refills, Maintenance, 01/07/23 21:36:00 EDT, [facility], 90, TAKE 1 TABLET BY MOUTH EVERY [...] capsule, 0 Refills, Maintenance, 03/31/23 14:24:00 EDT, [facility]/pharmacy #[id number], 175, cm, 10/09/22 16:51:00 EDT, Height, 93, kg, 01/28/22 14:55:00 EDT, Dry Weight Start Date: 03/31/23 Status: Ordered folic acid 1 mg oral tablet 1, tablet, By Mouth, Daily, # 90 tablet, Refills 1, Tot. Refills 1, Maintenance, 01/08/23 13:00:00 EDT, Route to Pharmacy Electronically, [facility]/pharmacy #[id number], 175, cm, 10/09/22 16:51:00 [...] 01/21/19 11:25:36 EDT, Route to Pharmacy Electronically, [id number], [facility]/pharmacy #[id number] Start Date: 01/21/19 Stop Date: 05/21/19 Status: Ordered lamotrigine 100 mg oral tablet Refills 0, Maintenance, 05/01/23 15:28:00 EDT, Partial fill upon patient request if the prescription is for a schedule II opioid drug. Start Date: 05/01/23 Status: Ordered lisinopril 40 mg oral tablet 1 tablet, By Mouth, Daily, # 90 tablet, 0 Refills, Maintenance, 04/21/23 10:51:00 EDT, [facility], 175, cm, 10/09/22 16:51:00 EDT, Height, 93, [...] Refills, Maintenance, 02/20/23 7:15:00 EDT, [facility], 175, cm, 10/09/22 16:51:00 EDT, Height, 93, [...] Weight Start Date: 11/07/22 Status: Ordered Pen [place], 31 G x 5 mm BD Ultra [...] capsule, 0 Refills, Maintenance, 06/02/23 14:17:00 EST, [facility]/pharmacy #0843, Partial fill upon patient request if the prescription is for a schedule II opioid drug., 168, cm, 05/01/23 14:45:00 EDT, Height, 93, k... Start Date: 06/02/23 Status: Ordered rosuvastatin 20 mg oral tablet 1 tablet, By Mouth, Daily, # 90 tablet, 1 Refills, Maintenance, 03/29/23 14:43:00 EDT, [facility], 175, cm, 10/09/22 16:51:00 EDT, Height, 93, [...] 4, GFR 15-29 ml/min Confirmed Active ASHD; [place] 2012/stent circumflex vessel cath;abdelrahman 2018 3 Confirmed [...] mild to moderate. 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 524 weeks therapy with sofosbuvir/weight based ribavirin 49662 inferolateral stent bare metal circumflex 7DR Marissa [...] Role: Lifetime Consulting Physician Address: Address: [address] [place] [address] [facility] [place] [address]- Name: Kelly Butler NP Position: [facility] PCO Associate Professional Member Role: PCP Address: Address: [address] [place] [address]- Name: Kristin Mckenzie Position: [facility] Outreach Member Role: Lifetime Consulting Physician Name: Prieto Tobin RN Position: [facility] RN Member Role: Primary Care Nurse Name: Jonn Hui DO Position: [facility] Renal MD Member Role: Lifetime Consulting Physician Address: Address: [address] [place], [place] [address] [place] [address]- Name: Zafar CALVO, Luis Angel Rojas Position: [facility] RN Member Role: Primary Care Nurse Care Team Related Persons Name: CARLOS A BORDEN Address: home [address] [place] [address] Name: LEVI BORDEN Address: home [address] [place] [address]
--- OUTSIDE RECORDS SUMMARY | 2024-06-01 21:46 | XMS_ITS | Continuity of Care Document ---
Author Organization [facility] Shawn Lazaro lt Address [address] [place] [address]- Care Team Providers Care Copper Flotation Operator Name Role Phone Aylin HICKMAN, Ben Willis Primary Care Physician [phone] [facility] Date[facility]): 09[facility]21 - 10/21/21 [facility] Nando Palominoley Adult [address] [place] [address]- Allergies, Adverse Reactions, Alerts Substance Reaction Severity [...] 12/20/21 12:51:00 EST, Route to Pharmacy Electronically, [facility]/pharmacy #[id number], 175.2, cm, 06/07/21 9:51:00 EST, Height, 88.3, kg, 03/12/21 9:16:00 EDT, Dry... Start Date: 06/24/21 Status: Ordered Daily Simone oral tablet 1 tablet, By Mouth, Daily, # 30 tablet, 5 Refills, Maintenance, 07/29/21 13:53:00 EST, Tablet, [facility]/pharmacy #0843, 1 tablet By Mouth Daily,x30 days, 175.2, cm, 06/07/21 9:51:00 EST, Height, 88.3, kg,03/12/21 9:16:00 EDT, Dry Weight Start Date: 07/29/21 Stop Date: 01/25/22 Status: Ordered docusate sodium 100 mg oral capsule 1 capsule, By Mouth, 2 times a day, PRN NEEDED FOR CONSTIPATION, # 60 capsule, 5 Refills, Maintenance, 06/05/21 15:57:00 EST, [facility]/pharmacy #0843, 175.2, cm, 05/27/21 11:26:00 EST, Height, 88.3, kg, 03/12/21 9:16:00 EDT, Dry Weight Start Date: 06/05/21 Status: Ordered folic acid 1 mg oral tablet 1, tablet, By Mouth, Daily, # 30 tablet, Refills 5, Tot. Refills 5, Maintenance, 07/25/21 15:59:00 EST, [facility] 175.2, cm, 06/07/21 9:51:00 [...] tablet, 5 Refills, Maintenance, 06/05/21 15:57:00 EST, [facility]/pharmacy #0843, 175.2, cm, 05/27/21 11:26:00 EST, Height, 88.3, kg, 03/12/21 9:16:00 EDT, Dry Weight Start Date: 06/05/21 Status: Ordered LaMICtal 100 mg oral tablet 100 mg, 1, tablet, By Mouth, 2 times a day, # 60 tablet, Refills 3, Tot. Refills 3, Maintenance, 01/21/19 11:25:36 EDT, Route to Pharmacy Electronically, [id number], [facility]/pharmacy #0843 Start Date: 01/21/19 [...] 3 Refills, Maintenance, 09/17/21 10:50:00 EDT, Tablet, [facility]/pharmacy #0843, Partial fill upon [...] 162 lozenge, 0 Refills,Maintenance, 10/16/21 16:21:00 EDT, [facility]/pharmacy #0843, 16, USE 1 LOZENGE UP TO EVERY 1 HOUR NEEDED FOR 10 DAYS, 175.2, cm, 09/20/21 8:36:00 EDT, He... Start Date: 10/16/21 Status: Ordered nitroglycerin 0.4 mg sublingual tablet See Instructions, DISSOLVE 1 UNDER TONGUE EVERY 5 MINUTES NEEDED FOR CHEST PAIN INSTR:CALL MD AFTER TAKING 3 TABS IN TOTAL IN A DAY, # 100 tablet, 0 Refills, Maintenance, 08/23/21 8:07:00 EST, [facility]/pharmacy #0843, 175.2, cm, 07/31/21 11:20:00 EST, H... Start Date: 08/23/21 Status: Ordered NovoLOG FlexPen 100 units/mL injectable solution See Instructions, INJECT 0-18 UNITS SUBCUTANEOUSLY WITH MEALS FOR SLIDING SCALES, # 15 Unknown, 2 Refills, [facility] 11631, 175.2, cm, 05/27/21 11:26:00 EST, Height, 88.3, kg, 03/12/21 9:16:00 EDT, Dry Weight Start Date: 06/04/21 Status: Ordered Pen [place], 31 G x 5 mm BD Ultra [...] 5 Refills, Maintenance, 06/10/21 12:32:00 EST, Capsule, [facility]/pharmacy #0843, 175.2, cm, 06/07/21 9:51:00 EST, Height, 88.3, kg, 03/12/21 9:16:00 EDT, Dry Weight Start Date: 06/10/21 Status: Ordered pregabalin 75 mg oral capsule 1 capsule = 75 mg, By Mouth, 2 times a day, # 60 capsule, 5 Refills, Maintenance, 06/07/21 13:14:00EST, Capsule, [facility]/pharmacy #0843, 175.2, cm, 06/07/21 9:51:00 EST, Height, 88.3, kg, 03/12/21 9:16:00 EDT, Dry Weight Start Date: 06/07/21 Status: Ordered rosuvastatin 20 mg oral tablet 1 tablet, By Mouth, Daily, # 90 tablet, 1 Refills, Maintenance, 08/15/21 14:24:00 EST, [facility]/pharmacy#0843, 175.2, cm, 07/31/21 11:20:00 EST, Height, 88.3, kg, 03/12/21 9:16:00 EDT, Dry Weight Start Date: 08/15/21 Status: Ordered SEROquel 100 mg oral tablet 100 mg, 1, tablet, By Mouth, 2 times a day, # 60 tablet, Refills 2, Tot. Refills 2, Maintenance, 09/21/19 10:41:00 EDT, Route to Pharmacy Electronically, [facility]/pharmacy #0843, 172, cm, 09/05/19 16:17:00 EST, Height, [...] # 9 Unknown, 1 Refills, [facility], 175.2, cm, 07/31/21 11:20:00 EST, Height, 88.3, [...] renal failure, stage 4 (severe)(Confirmed) Active ASHD; [place] 2012/stent circumfl ex vessel [...] 524 weeks therapy with sofosbuvir/weight based ribavirin 15310 inferolateral stent bare metal circumflex 7DR Marissa [...]
--- OUTSIDE RECORDS SUMMARY | 2024-06-01 21:47 | XMS_ITS | Continuity of Care Document ---
Author Organization [facility] Nando Escobar Lazaro lt Address [address] [place] [address]- Care Team Providers Care Marker Assembler Name Role Phone Carrie MOTOR ASSEMBLY SUPERVISORKelly Primary Care Physician [facility]): 07/[facility] - 08/01/22 [facility] Nando Escobar Adult [address] [place] [address]- Allergies, Adverse Reactions, Alerts Substance Reaction Severity [...] influenza virus vaccine, inactivated 04/16/10 Give n [id number] 12y+ bivalent booster vax 05/17/22 Recorded SARS-CoV-2 [...] 3 Refills, Maintenance, 09/30/21 12:28:00 EDT, [facility]/pharmacy#[id number], 175.2, cm, 09/20/21 8:36:00 [...] 5 Refills, Maintenance, 02/11/22 11:48:00 EDT, Tablet, [facility]/pharmacy #[id number], 1 tablet By Mouth Daily,x30 days, 175, cm, 01/29/22 15:12:00 EDT, Height, 93, kg, 01/28/22 14:55:00 EDT, Dry Weight Start Date: 02/11/22 Stop Date: 08/10/22 Status: Ordered DilTIAZem (Eqv-Cardizem CD) 180 mg/24 hours oral capsule, extended release 1 capsule, By Mouth, Daily, # 90 capsule, 0 Refills, Maintenance, 05/21/22 13:33:00 EST, [facility] STORE 90142, 175, cm, 05/09/22 11:08:00 EDT, Height, 93, kg, 01/28/22 14:55:00 EDT, Dry Weight Start Date: 05/21/22 Status: Ordered docusate sodium 100 mg oral capsule 1 capsule, By Mouth, 2 times a day, PRN NEEDED FOR CONSTIPATION, # 60 capsule, 5 Refills, Maintenance, 07/18/22 11:59:00 EST, [facility]/pharmacy #[id number], 175, cm, 07/17/22 [...] 01/21/19 11:25:36 EDT, Route to Pharmacy Electronically, [id number], [facility]/pharmacy #[id number] Start Date: 01/21/19 Stop Date: 05/21/19 Status: Ordered lisinopril 40 mg oral tablet 1 tablet, By Mouth, Daily, # 90 tablet, 1 Refills, Maintenance, 05/07/22 14:29:00 EDT, [facility] STORE 81201, 175, cm, 04/08/22 8:34:00 EDT, Height, 93, kg, 01/28/22 14:55:00 EDT, Dry Weight Start Date: 05/07/22 Status: Ordered Metoprolol Tartrate 50 mg oral tablet 1.5 tablet, By Mouth, 2 times a day, # 270 tablet, 0 Refills, 05/21/22 10:19:00 EST, [facility]/pharmacy #[id number], 175, cm, 05/09/22 11:08:00 EDT, Height, 93, kg, 01/28/22 14:55:00 EDT, Dry Weight Start Date: 05/21/22 Status: Ordered nicotine 14 mg/24 hr transdermal film, extended release 1 patch, Topically, Daily, for 30 days, # 28 patch, 0 Refills, Acute 08/30/22 12:24:00 EST, 07/31/22 12:24:00 EST, Patch, [facility]/pharmacy #[id number], 1 patch Topically Daily,x30 days, 175, cm, 07/17/22 10:33:00 EST, Height, 93, kg, 01/28/22 14:55:00 EDT, Dry... Start Date: 07/31/22 Stop Date: 08/30/22 Status: Ordered Nicotine 7 mg/24 hour patch 1 patch, Topically, Daily, for 30 days, # 30 patch, 0 Refills, Acute 08/14/22 19:52:00 EST, 07/15/22 19:52:00 EST, Patch, [facility]/pharmacy [...] # 15 Unknown, 2 Refills, [facility], 175.2, cm, 05/27/21 11:26:00 EST, Height, 88.3, kg, 03/12/21 9:16:00 EDT, Dry Weight Start Date: 06/04/21 Status: Ordered Pen [place], 31 G x 5 mm BD Ultra [...] 5 Refills, Maintenance, 04/08/22 9:12:00 EDT, Capsule, [facility]/pharmacy #0843, 175, cm, 04/08/22 8:34:00 EDT, Height, 93, kg, 01/28/22 14:55:00 EDT, Dry Weight Start Date: 04/08/22 Status: Ordered rosuvastatin 20 mg oral tablet 1 tablet, By Mouth, Daily, # 90 tablet, 1 Refills, Maintenance, 05/21/22 13:33:00 EST, [facility], 175, cm, 05/09/22 11:08:00 EDT, Height, 93, [...] 4, GFR 15-29 ml/min Confirmed Active ASHD; [place] 2012/stent circumflex vessel cath;abdelrahman 2019 3 Confirmed [...] mild to moderate. 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 524 weeks therapy with sofosbuvir/weight based ribavirin 12581 inferolateral stent bare metal circumflex 7DR Molddoverno [...] Role: Lifetime Consulting Physician Address: Address: [address] [place] [address] [facility] [place] [address]- [place] Name: Kelly Butler NP Position: [facility] PCO Associate Professional Member Role: PCP Address: Address: [address] [place] [address]- [place] Name: Kristin Mckenzie Position: [facility] Outreach Member Role: Lifetime Consulting Physician Name: Prieto Tobin RN Position: [facility] RN Member Role: Primary Care Nurse Name: Jonn Hui DO Position: [facility] Renal MD Member Role: Lifetime Consulting Physician Address: Address: [address] [place], [place] [address]E [facility] [place] [address]- Name: Luis Angel Stephen RN Position: [facility] RN Member Role: Primary Care Nurse Name: Tamie Baird RN Position: [facility] RN Member Role: Primary Care Nurse Care Team Related Persons Name: CARLOS A BORDEN Address: home [address] [place] [address] Name: LEVI BORDEN Address: home [address] [place] [address]
--- OUTSIDE RECORDS SUMMARY | 2024-06-01 21:48 | XMS_ITS | Continuity of Care Document ---
Author Organization [facility] Shawn Lazaro lt Address [address] [place] [address]- Care Team Providers Care After School Tutor Name Role Phone Carrie Kelly RIVERA Primary Care Physician [facility]): 02/26/22 - 03/28/22 [facility] Adult [address] [place] [address]- Allergies, Adverse Reactions, Alerts Substance Reaction Severity [...] tablet, 3 Refills, Maintenance, 09/30/21 12:28:00 EDT, [facility]/pharmacy#0843, 175.2, cm, 09/20/21 8:36:00 EDT, [...] Refills, Maintenance, 01/18/22 11:08:00 EDT, CR Capsule, [facility]/pharmacy #[id number], 175.2, cm, 11/15/21 11:18:00 EDT, Height, 88.3, kg, 03/12/21 9:16:00 EDT, Dry Weight Start Date: 01/18/22 Stop Date: 07/17/22 Status: Ordered Daily Simone oral tablet 1 tablet, By Mouth, Daily, # 30 tablet, 5 Refills, Maintenance, 02/11/22 11:48:00 EDT, Tablet, [facility]/pharmacy #[id number], 1 tablet By Mouth Daily,x30 days, 175, cm, 01/29/22 15:12:00 EDT, Height, 93, kg, 01/28/22 14:55:00 EDT, Dry Weight Start Date: 02/11/22 Stop Date: 08/10/22 Status: Ordered docusate sodium 100 mg oral capsule 1 capsule, By Mouth, 2 times a day, PRN NEEDED FOR CONSTIPATION, # 60 capsule, 5 Refills, Maintenance, 06/05/21 15:57:00 EST, [facility]/pharmacy #[id number], 175.2, cm, 05/27/21 11:26:00 EST, Height, 88.3, kg, 03/12/21 9:16:00 EDT, Dry Weight Start Date: 06/05/21 Status: Ordered folic acid 1 mg oral tablet 1, tablet, By Mouth, Daily, # 30 tablet, Refills 5, Tot. Refills 5, Maintenance, 07/25/21 15:59:00 EST, Route to Pharmacy Electronically, [facility]/pharmacy #[id number], 175.2, cm, 06/07/21 9:51:00 [...] 01/21/19 11:25:36 EDT, Route to Pharmacy Electronically, [id number], [facility]/pharmacy #[id number] Start Date: 01/21/19 Stop Date: 05/21/19 Status: Ordered lisinopril 40 mg oral tablet 1 tablet = 40 mg, By Mouth, Daily, # 30 tablet, 3 Refills, Maintenance, 09/17/21 10:50:00 EDT, Tablet, [facility]/pharmacy #0843, Partial fill upon patient request if the prescription is for a schedule II opioid drug., 175.2, cm, 07/31/21 11:20:00 EST, Heigh... Start Date: 09/17/21 Status: Ordered Metoprolol Tartrate 50 mg oral tablet 1.5 tablet, By Mouth, 2 times a day, # 270 tablet, 0 Refills, 03/16/22 12:48:00 EDT, [facility]/pharmacy #0843, 175, cm, 02/14/22 10:10:00 EDT, Height, 93, kg, 01/28/22 14:55:00 EDT, Dry Weight Start Date: 03/16/22 Status: Ordered nicotine 14 mg/24 hr transdermal film, extended release 1 patch, Topically, Daily, for 30 days, # 30 patch, 1 Refills, Acute 05/13/22 12:16:00 EST, 03/14/22 12:16:00 EDT, Patch, [facility]/pharmacy #[id number], 1 patch Topically Daily,x30 [...] tablet, 0 Refills, Maintenance, 12/31/21 17:21:00 EDT, [facility]/pharmacy #0843, 175.2, cm, 12/18/21 14:10:00 EDT, Height... Start Date: 12/31/21 Status: Ordered NovoLOG FlexPen 100 units/mL injectable solution See Instructions, INJECT 0-18 UNITS SUBCUTANEOUSLY WITH MEALS FOR SLIDING SCALES, # 15 Unknown, 2 Refills, [facility] STORE 38949, 175.2, cm, 05/27/21 11:26:00 EST, Height, 88.3, kg, 03/12/21 9:16:00 EDT, Dry Weight Start Date: 06/04/21 Status: Ordered Pen [place], 31 G x 5 mm BD Ultra [...] capsule, 5 Refills, Maintenance, 11/19/21 11:25:00EDT, Capsule, [facility]/pharmacy #[id number], 175.2, cm, 11/15/21 11:18:00 EDT, Height, 88.3, kg, 03/12/21 9:16:00 EDT, Dry Weight Start Date: 11/19/21 Status: Ordered rosuvastatin 20 mg oral tablet 1 tablet, By Mouth, Daily, # 90 tablet, 1 Refills, [facility] STORE 12861, 175, cm, 01/29/22 15:12:00 EDT,Height, 93, kg, 01/28/22 14:55:00 EDT, Dry Weight Start Date: 01/30/22 Status: Ordered SEROquel 100 mg oral tablet 100 mg, 1, tablet, By Mouth, 2 times a day, PRN, # 1 tablet, Refills 2, Tot. Refills 2, Maintenance, Anxiety, 09/21/19 10:41:00 EDT, Route to Pharmacy Electronically, [facility]/pharmacy #[id number], 172, cm, 09/05/19 16:17:00 [...] 3 Refills, Maintenance, 12/18/21 14:33:00 EDT, Suspension, [facility]/pharmacy #0843, 1 drops Eyes, Both [...] # 30 capsule, 5 Refills, [facility], 175.2, cm, 11/15/21 11:18:00 EDT, Height, 88.3, [...] mild to moderate. 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
--- OUTSIDE RECORDS SUMMARY | 2024-06-01 21:48 | XMS_ITS | Continuity of Care Document ---
Author Organization [facility] Nando Escobar Lazaro lt Address [address] [place] [address]- Care Team Providers Care Admitting Supervisor Name Role Phone Carrie Kelly RIVERA Primary Care Physician [phone] [facility]counter [facility]): 06[facility]02[facility]22 - 07/02/22 [facility] Nando Escobar Adult [address] [place] [address]- Allergies, Adverse Reactions, Alerts Substance Reaction Severity Status Bee Stings Active Immunizations Given and Recorded Vaccine Date Status Refusal Reason SARS-CoV-2 (COVID-19) mRNA-1273 vaccine 10/10/21 R ecorded influenza virus vaccine, inactivated 05/24/21 Adnrew rded [...] Refills, Maintenance, 05/21/22 13:33:00 EST, [facility], 175, cm, 05/09/22 11:08:00 EDT, Height, 93, [...] Pharmacy Electronically, [facility]/pharmacy #[id number], 175, cm, 02/14/22 [...] 01/21/19 11:25:36 EDT, Route to Pharmacy Electronically, [id number], [facility]/pharmacy #[id number] Start Date: 01/21/19 Stop Date: 05/21/19 Status: Ordered lisinopril 40 mg oral tablet 1 tablet, By Mouth, Daily, # 90 tablet, 1 Refills, Maintenance, 05/07/22 14:29:00 EDT, [facility] STORE 63955, 175, cm, 04/08/22 8:34:00 EDT, Height, 93, kg, 01/28/22 14:55:00 EDT, Dry Weight Start Date: 05/07/22 Status: Ordered Metoprolol Tartrate 50 mg oral tablet 1.5 tablet, By Mouth, 2 times a day, # 270 tablet, 0 Refills, 05/21/22 10:19:00 EST, [facility]/pharmacy #[id number], 175, cm, 05/09/22 11:08:00 EDT, Height, 93, kg, 01/28/22 14:55:00 EDT, Dry Weight Start Date: 05/21/22 Status: Ordered nicotine 14 mg/24 hr transdermal film, extended release 1 patch, Topically, Daily, for 30 days, # 14 patch, 0 Refills, Acute 07/27/22 15:44:00 EST, 06/27/22 15:44:00 EST, Patch, [facility]/pharmacy #[id number], 1 patch Topically [...] tablet, 0 Refills, Maintenance, 12/31/21 17:21:00 EDT, [facility]/pharmacy #0843, 175.2, cm, 12/18/21 14:10:00 EDT, Height... Start Date: 12/31/21 Status: Ordered NovoLOG FlexPen 100 units/mL injectable solution See Instructions, INJECT 0-18 UNITS SUBCUTANEOUSLY WITH MEALS FOR SLIDING SCALES, # 15 Unknown, 2 Refills, [facility] STORE 64405, 175.2, cm, 05/27/21 11:26:00 EST, Height, 88.3, kg, 03/12/21 9:16:00 EDT, Dry Weight Start Date: 06/04/21 Status: Ordered Pen [place], 31 G x 5 mm BD Ultra [...] 5 Refills, Maintenance, 04/08/22 9:12:00 EDT, Capsule, [facility]/pharmacy #0843, 175, cm, 04/08/22 8:34:00 EDT, Height, 93, kg, 01/28/22 14:55:00 EDT, Dry Weight Start Date: 04/08/22 Status: Ordered rosuvastatin 20 mg oral tablet 1 tablet, By Mouth, Daily, # 90 tablet, 1 Refills, Maintenance, 05/21/22 13:33:00 EST, [facility], 175, cm, 05/09/22 11:08:00 EDT, Height, 93, [...] 07/11/22 20:57:00 EST, 06/11/22 20:57:00 EST, Suspension, [facility]/pharmacy #0843, 1drops Eyes, Both 2 times [...] 524 weeks therapy with sofosbuvir/weight based ribavirin 91209 inferolateral stent bare metal circumflex 7DR Molddoverno [...] Team Personnel Name: Jeffrey Mccoy MD Position: [facility] Renal MD Member Role: Lifetime Consulting Physician Address: Address: [facility] [place] [address]- Name: Kelly Butler NP Position: [facility] PCO Associate Professional Member Role: PCP Address: Address: [address] [place] [address]- Name: Kristin Mckenzie Position: [facility] Outreach Member Role: Lifetime Consulting Physician Name: Prieto Tobin RN Position: [facility] RN Member Role: Primary Care Nurse Name: Jonn Hui DO Position: [facility] Renal MD Member Role: Lifetime Consulting Physician Address: Address: [address] [place], [place] [address] [place], [place] [address] Name: Luis Angel Stephen RN Position: [facility] RN Member Role: Primary Care Nurse Name: Tamie Baird RN Position: [facility] RN Member Role: Primary Care Nurse Care Team Related Persons Name: CARLOS A BORDEN Address: home [address] [place] [address] Name: LEVI BORDEN Address: [address] [place] [address]
--- OUTSIDE RECORDS SUMMARY | 2024-06-01 21:48 | XMS_ITS | Continuity of Care Document ---
Author Organization [facility] Address [address] [place] [address]- Care Team Providers Care Faucets Assembler Name Role Phone Carrie Kelly RIVERA Primary Care Physician [facility]s): 05[facility]08[facility]22 - 06/07/22 [facility] [address] [place] [address]- Attending Physician: Radha Biggs Admitting Physician: AdmtrRadha [...] Refills, Maintenance, 02/11/22 11:48:00 EDT, Tablet, [facility]/pharmacy #[id number], 1 tablet By Mouth Daily,x30 days, 175, cm, 01/29/22 15:12:00 EDT, Height, 93, kg, 01/28/22 14:55:00 EDT, Dry Weight Start Date: 02/11/22 Stop Date: 08/10/22 Status: Ordered DilTIAZem (Eqv-Cardizem CD) 180 mg/24 hours oral capsule, extended release 1 capsule, By Mouth, Daily, # 90 capsule, 0 Refills, Maintenance, 05/21/22 13:33:00 EST, [facility] STORE 12847, 175, cm, 05/09/22 11:08:00 EDT, Height, 93, kg, 01/28/22 14:55:00 EDT, Dry Weight Start Date: 05/21/22 Status: Ordered docusate sodium 100 mg oral capsule 1 capsule, By Mouth, 2 times a day, PRN NEEDED FOR CONSTIPATION, # 60 capsule, 5 Refills, Maintenance, 06/05/21 15:57:00 EST, [facility]/pharmacy #0843, 175.2, cm, 05/27/21 11:26:00 EST, Height, 88.3, kg, 03/12/21 9:16:00 EDT, Dry Weight Start Date: 06/05/21 Status: Ordered folic acid 1 mg oral tablet 1, tablet, By Mouth, Daily, # 30 tablet, Refills 5, Tot. Refills 5, Maintenance, 04/01/22 21:30:00 EDT, [id number] 175, cm, 02/14/22 10:10:00 EDT, Height, [...] 01/21/19 11:25:36 EDT, Route to Pharmacy Electronically, [id number], [facility]/pharmacy #0843 Start Date: 01/21/19 Stop Date: 05/21/19 Status: Ordered lisinopril 40 mg oral tablet 1 tablet, By Mouth, Daily, # 90 tablet, 1 Refills, Maintenance, 05/07/22 14:29:00 EDT, [facility] STORE 12673, 175, cm, 04/08/22 8:34:00 EDT, Height, 93, kg, 01/28/22 14:55:00 EDT, Dry Weight Start Date: 05/07/22 Status: Ordered Metoprolol Tartrate 50 mg oral tablet 1.5 tablet, By Mouth, 2 times a day, # 270 tablet, 0 Refills, 05/21/22 10:19:00 EST, [facility]/pharmacy #0843, 175, cm, 05/09/22 11:08:00 EDT, Height, 93, kg, 01/28/22 14:55:00 EDT, Dry Weight Start Date: 05/21/22 Status: Ordered nicotine 14 mg/24 hr transdermal film, extended release 1 patch, Topically, Daily, for 30 days, # 30 patch, 1 Refills, Acute 06/27/22 15:44:00 EST, 04/28/22 15:44:00 EDT, Patch, [facility]/pharmacy #0843, 1 patch Topically Daily,x30 days, [...] Maintenance, 12/31/21 17:21:00 EDT, [facility]/pharmacy #0843, 175.2, cm, 12/18/21 14:10:00 EDT, Height... Start Date: 12/31/21 Status: Ordered NovoLOG FlexPen 100 units/mL injectable solution See Instructions, INJECT 0-18 UNITS SUBCUTANEOUSLY WITH MEALS FOR SLIDING SCALES, # 15 Unknown, 2 Refills, [facility] STORE 14512, 175.2, cm, 05/27/21 11:26:00 EST, Height, 88.3, kg, 03/12/21 9:16:00 EDT, Dry Weight Start Date: 06/04/21 Status: Ordered Pen [place], 31 G x 5 mm BD Ultra [...] Refills, Maintenance, 04/08/22 9:12:00 EDT, Capsule, [facility]/pharmacy #0843, 175, cm, 04/08/22 8:34:00 EDT, Height, 93, kg, 01/28/22 14:55:00 EDT, Dry Weight Start Date: 04/08/22 Status: Ordered rosuvastatin 20 mg oral tablet 1 tablet, By Mouth, Daily, # 90 tablet, 1 Refills, Maintenance, 05/21/22 13:33:00 EST, [facility] STORE 33741, 175, cm, 05/09/22 11:08:00 EDT, Height, 93, kg, 01/28/22 14:55:00 EDT, Dry Weight Start Date: 05/21/22 Status: Ordered SEROquel 100 mg oral tablet 100 mg, 1, tablet, By Mouth, 2 times a day, PRN, # 1 tablet, Refills 2, Tot. Refills 2, Maintenance, Anxiety, 09/21/19 10:41:00 EDT, Route to Pharmacy Electronically, [facility]/pharmacy #[id number], 172, cm, 09/05/19 16:17:00 EST, [...] 3 Refills, Maintenance, 04/08/22 9:09:00 EDT, Suspension, [facility]/pharmacy #0843, 1 drops Eyes, Both 2 [...] (severe) Confirmed Active ASHD; [place] 2012/stent circumflex vessel [...] 524 weeks therapy with sofosbuvir/weight based ribavirin 62950 inferolateral stent bare metal circumflex 7DR Molddoverno [...] VERIFY Event Display: Patient Education/Instruction Authored Date: [id number] [facility] Cardiology1 Clinical Summary Person Information Name BRITTANY BORDEN Age 58 Years 1955 12:00 AM PCP Sheree HICKMAN, Dalton PCP Reason for Visit: Allergy Info: NKA [...] tablet, Oral, Daily, with breakfast, Refills: 1 [place] (lithium 450 mg oral tablet, extended release) [...] primary care provider, you may find a [facility] provider by calling [facility] [employer] [facility] at [phone]. Patient Education Information Follow-up Details: Patient Education Material: Please follow instructions discussed with your provider during this visit as well as any education documents you were given today. Cardiology Outpatient Note * Jeffrey Leon MD: SIGN Jeffrey Leon MD: SIGN, SIGN, VERIFY Event Display: Cardiology Note Office Authored Date: [id number] Patient: BRITTANY BORDEN Age: 58 years Sex: [...] Personnel Name: Jeffrey Mccoy MD Position: [facility] Renal MD Member Role: Lifetime Consulting Physician Address: Address: [address] [facility] [place] [address]- Name: Kelly Butler NP Position: [facility] PCO Associate Professional Member Role: PCP Address: Address: [address] [place] [address]- Name: Krsitin Mckenzie Position: [facility] Outreach Member Role: Lifetime Consulting Physician Name: Prieto Tobin RN Position: [facility] RN Member Role: Primary Care Nurse Name: Jonn Hui DO Position: [facility] Renal MD Member Role: Lifetime Consulting Physician Address: Address: [address] [place], [place] [address] [place] [address]- Name: Luis Angel Stephen RN Position: [facility] RN Member Role: Primary Care Nurse Name: Tamie Baird RN Position: [facility] RN Member Role: Primary Care Nurse Care Team Related Persons Name: CARLOS A BORDEN Address: [address] [place] [address] Name: LEVI BORDEN Address: [address] [place] [address]
--- OUTSIDE RECORDS SUMMARY | 2024-06-01 21:48 | XMS_ITS | Continuity of Care Document ---
Author Organization [facility] Shawn Lazaro lt Address [address] [place] [address]- Care Team Providers Care Mold Carpenter Name Role Phone Aylin HICKMAN, Ben Willis Primary Care Physician Encounter [facility] Date(s): 11/15/21 - 12/15/21 [facility] Adult [address] [place] [address]- Attending Physician: Admtr, Ar8 Admitting Physician: Admtr, [...] 01/21/19 11:25:36 EDT, Route to Pharmacy Electronically, [id number], [facility]/pharmacy #0843 Start [...] a day, # 270 tablet, 0 Refills, [facility] STORE 88192, 175.2, cm, 11/15/21 11:18:00 EDT, Height, 88.3, kg, 03/12/21 9:16:00 EDT, Dry Weight Start Date: 12/12/21 Status: Ordered nicotine 2 mg oral transmucosal lozenge See Instructions, USE 1 LOZENGE UP TO EVERY 1 HOUR NEEDED FOR 10 DAYS, # 162 lozenge, 0 Refills,Maintenance, 12/11/21 9:38:00 EDT, [facility]/pharmacy #0843, [...] Refills, [facility] STORE 45805, 175.2, cm, 05/27/21 11:26:00 EST, Height, 88.3, kg, 03/12/21 9:16:00 EDT, Dry Weight Start Date: 06/04/21 Status: Ordered Pen [place], 31 G x 5 mm BD Ultra [...] capsule, 5 Refills, Maintenance, 11/19/21 11:25:00EDT, Capsule, [facility]/pharmacy #0843, 175.2, cm, 11/15/21 11:18:00 [...] 0 Refills, Maintenance, 11/29/21 15:58:00 EDT, Suspension, [facility]/pharmacy #0843, 1 drops Eyes, Both [...] 60 UNITS/DAY, # 9 Unknown, 1 Refills, [facility] STORE 35146, 175.2, cm, 07/31/21 11:20:00 EST, Height, 88.3, [...] # 30 capsule, 5 Refills, [facility], 175.2, cm, 11/15/21 11:18:00 EDT, Height, 88.3, kg, 03/12/21 9:16:00 EDT, Dry Weight Start Date: 11/17/21 Status: Ordered Problem List Condition Effective Dates Status Health Status Inform ant Bipolar disorder(Confirmed) Active Cervical spondylosis(Confirmed) Active Chronic back pain DJD(Confirmed) Active Glomerulonephritis,mesangial proliferative/fibrillary(Confirmed) 1, 2 Active Chronic renal failure, stage 4 (severe)(Confirmed) Active ASHD; [place] 2012/ circumfl ex vessel cath;abdelrahman 2018(Confirmed) 3 [...] 524 weeks therapy with sofosbuvir/weight based ribavirin 13152 inferolateral stent bare metal circumflex 7DR Marissa sx;Dr Schawrtz 8hyperplatic polyp repeat screening in 2025 9repeat [...] scan of lower limb veins rt 1 3/20/17 Completed 1neg dvt Vital Signs Most recent [...]
--- OUTSIDE RECORDS SUMMARY | 2024-06-01 21:49 | XMS_ITS | Continuity of Care Document ---
Author Organization [facility] Shawn Lazaro lt Address [address] [place] [address]- Care Team Providers Care Pre Sales Systems Engineer Name Role Phone Carrie Kelly RIVERA Primary Care Physician Encounter [facility] Date(s): 09/25/22 - 10/25/22 [facility] Shawn Adult [address] [place] [address]- Allergies, Adverse Reactions, Alerts Substance Reaction Severity [...] influenza virus vaccine, inactivated 04/16/10 Give n [id number] 12y+ bivalent booster vax 05/17/22 Recorded SARS-CoV-2 [...] capsule, 0 Refills, Maintenance, 10/24/22 10:10:00 EDT, [facility]/pharmacy #[id number], 175, cm, [...] Gm, 0 Refills, Maintenance, 09/05/22 9:15:00 EST, [id number], Partial fill upon patient request if the prescription is for a schedule II opioid drug., 1 sprays Nares, Both 2 times a day, 175, c... Start Date: 09/05/22 Status: Ordered folic acid 1 mg oral tablet 1, tablet, By Mouth, Daily, # 30 tablet, Refills 5, Tot. Refills 5, Maintenance, 08/15/22 10:27:00 EST, Route to Pharmacy Electronically, [id number], 175, cm, 07/17/22 10:33:00 EST, [...] 01/21/19 11:25:36 EDT, Route to Pharmacy Electronically, [id number], [facility]/pharmacy #[id number] Start Date: 01/21/19 Stop Date: 05/21/19 Status: Ordered lisinopril 40 mg oral tablet 1 tablet, By Mouth, Daily, # 90 tablet, 0 Refills, Maintenance, 10/24/22 10:11:00 EDT, [facility]/pharmacy#[id number], 175, cm, 10/09/22 16:51:00 EDT, Height, 93, kg, 01/28/22 14:55:00 EDT, Dry Weight Start Date: 10/24/22 Status: Ordered Metoprolol Tartrate 50 mg oral tablet 1.5 tablet, By Mouth, 2 times a day, # 270 tablet, 1 Refills, Maintenance, 09/01/22 13:28:00 EST, [id number], 175, cm, 07/17/22 10:33:00 EST, Height, 93, kg, 01/28/22 14:55:00 EDT, Dry Weight Start Date: 09/01/22 Status: Ordered Nicotine 7 mg/24 hour patch 1 patch, Topically, Daily, # 30 patch, 1 Refills, Maintenance, 09/26/22 7:49:00 EDT, Patch, [facility]/pharmacy #[id number], Partial fill [...] # 15 Unknown, 2 Refills, [id number], 175.2, cm, 05/27/21 11:26:00 EST, Height, 88.3, kg, 03/12/21 9:16:00 EDT, Dry Weight Start Date: 06/04/21 Status: Ordered Pen [place], 31 G x [...] tablet, 1 Refills, Maintenance, 05/21/22 13:33:00 EST, [id number], 175, cm, 05/09/22 11:08:00 EDT, Height, 93, [...] 1 Refills, 01/21/22 15:39:00 EDT, [facility]/pharmacy #[id number], 175.2, cm, 12/18/21 14:10:00 EDT, Height... Start Date: 01/21/22 Status: Ordered Trulicity Pen 0.75 mg/0.5 mL subcutaneous solution 0.5 mL = 0.75 mg, Subcutaneous Injection, Every week, # 2.5 mL, 2 Refills, Maintenance, 04/08/22 9:12:00 EDT, Solution, [facility]/pharmacy #[id number], Partial fill upon patient request if the prescription is for a schedule II opioid drug., 175, cm, 04/08/22 8:34... Start Date: 04/08/22 Status: Ordered Ventolin HFA 108 mcg/inh inhalation aerosol with adapter 2 puffs, Inhalation, Every 4 hours, PRN for wheezing, for 180 days, # 1 each, 0 Refills, Acute 03/05/23 16:25:00 EDT, 09/06/22 16:25:00 EST, Aerosol, [facility]/pharmacy #[id number], Partial fill upon [...] 4, GFR 15-29 ml/min Confirmed Active ASHD; [place] 2012/stent circumflex vessel cath;abdelrahman 2018 3 Confirmed [...] mild to moderate. 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 2012/[place] 4secondary to hep C 524 weeks therapy with sofosbuvir/weight based ribavirin 00255 inferolateral stent bare metal circumflex 7DR Marissa [...] Role: Lifetime Consulting Physician Address: Address: [address] [place] [address] [facility] [place] [address]- Name: Kelly Butler NP Position: [facility] PCO Associate Professional Member Role: PCP Address: Address: [address] [place] [id number]- Name: Kristin Mckenzie Position: [facility] Outreach Member Role: Lifetime Consulting Physician Name: Prieto Tobin RN Position: [facility] RN Member Role: Primary Care Nurse Name: Jonn Hui DO Position: [facility] Renal MD Member Role: Lifetime Consulting Physician Address: Address: [address] [place], [place] [address] [place] [address]- Name: Luis Angel Stephen RN Position: [facility] RN Member Role: Primary Care Nurse Name: Tamie Baird RN Position: S RN Member Role: Primary Care Nurse Care Team Related Persons Name: CARLOS A BORDEN Address: [address] [place] [address] Name: LEVI BORDEN Address: home [address] [place] [address]
[2024-06-01] MEDS: Morphine Sulfate 4 MG/ML CARTRIDGE 2 MG IVPUSH (22:37)
[2024-06-01 23:25] LABS: Glucose, Whole Blood 216 mg/dL (60-115)
[2024-06-02] MEDS: Heparin Sodium,Porcine 5,000 UNIT/ML VIAL 5000 UNIT SUBCUT ×3 (00:07→21:00)
[2024-06-02] MEDS: oxyCODONE HCl Immed Release 5 MG TABLET PO ×3 (00:07→16:16)
[2024-06-02 03:35] LABS: Glucose, Whole Blood 155 mg/dL (60-115)
[2024-06-02 04:36] VITALS: BP 177/79; PULSE 83; RESP 18; TEMP 36.6; O2SAT 99
[2024-06-02] MEDS: Lactated Ringers 1,000 ML 150 ML IVCONT (05:32)
[2024-06-02 05:45] LABS: Hematocrit 37.9 % (42.0-52.0); Hemoglobin 12.9 g/dl (14.0-18.0); Mean Corpuscular Hemoglobin 29.9 pg (27.0-33.0); Mean Corpuscular Volume 87.7 fL (80.0-98.0); Mean Platelet Volume 9.6 fL (9.4-12.4); Platelet Count 230 X10*3/uL (160-400); Red Blood Count 4.32 X10*6/uL (4.60-5.80); Red Cell Distribution Width 13.1 % (11.0-16.0); White Blood Count 12.2 X10*3/uL (4.8-10.8)
[2024-06-02 05:56] LABS: Anion Gap 17 (12-20); Beta-Hydroxybutyrate 0.06 mmol/L (0.02-0.27); Blood Urea Nitrogen 59 mg/dL (9-16); Calcium 8.8 mg/dL (8.4-10.2); Carbon Dioxide 13 mmol/L (22-29); Chloride 118 mmol/L (96-108); Creatinine Clr Calc Pharmacy 19.5; Estimated Glomerular Filt Rate 15; Glucose Random 157 mg/dL (60-115); Potassium 5.3 mmol/L (3.3-5.1); Sodium 143 mmol/L (135-145)
[2024-06-02 06:00] VITALS: RESP 16
[2024-06-02 06:04] LABS: B Type Natriuretic Peptide 315 pg/mL (<100)
--- NOTE | 2024-06-02 06:50 | PM.EVENT ---
Event Note Date of Service: 06/02/24 Event Note: Has hyperchloremic metabolic acidosis on top of NAGAP met acidosis from renal failure. Normal Saline and LR added, check with nephro if needs bicab supplement Time Spent With Patient Time: Total time managing care of this patient today ____ minutes.
[2024-06-02 06:55] LABS: Glucose, Whole Blood 161 mg/dL (60-115)
[2024-06-02] MEDS: Insulin Lispro 100 UNIT/ML 3 ML VIAL SUBCUT (06:57)
--- NOTE | 2024-06-02 07:45 | P.CONNP_ITS ---
History of Present Illness Reason for Consult Consult date: 06/02/24 Chief Complaint Chief complaint: ESTELA on CKD History of Present Illness Narrative: Osmin Moreira is a 68 y.o. 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 Found to have estela. . He had no edema and proteinuria up to 1.3 grams/day. He was recently hospitalized at [facility] for near syncope and found to have severe symptomatic bradycardia with a heart rate in the 20s. Diltiazem and metoprolol were discontinued. He had some mild acute kidney injury for which they discontinued his lisinopril. He was placed on amlodipine instead. He denies any urinary incontinence, loose stools Denies any dysuria, hematuria, urinary frequency or urgency. Denies any abdominal pain. No fevers or chills. He denies any chest pain or shortness of breath. Admits to taking ibuprofen 800 mg every 8 hours. [facility] Past Medical History Medical History (Updated 06/01/24 @ 21:33 by TEOFILO Barros) CAD (coronary artery disease) Chronic lower back pain Non-insulin dependent type 2 diabetes mellitus HLD (hyperlipidemia) HTN (hypertension) Social History Social History Unable to assess alcohol history related to: Unknown Patient Tobacco Use Status: Never used Tobacco Use of substances other than those prescribed or required for medical reasons: No Advance Directives: No Advance Directives Information Provided: Yes Nutrition Risks: No Nutritional Risk Meds Allergies Allergy/AdvReac Type Severity Reaction Status Date / Time bee pollen [BEE STINGS] Allergy Unknown THROAT Verified 06/01/24 10:00 SWELLING Active Medications: Current Medications Acetaminophen (Acetaminophen 325 Mg Tablet) 650 mg PO Q6H PRN PRN Reason: Pain, Mild (Pain Scale 1-3), fever or headache Calcium Carbonate (Calcium Carbonate 750 Mg Tab.Chew) 750 mg PO Q4H PRN PRN Reason: Heartburn Glucose (Glucose Gel 15 Gm Gel..Gram.) 15 gm PO Q15M PRN; Protocol PRN Reason: per Hypoglycemia Standing Ord. Heparin Sodium (Porcine) (Heparin Sodium,Porcine 5,000 Unit/Ml Vial) 5,000 unit SUBCUT Q12H ULISES Last Admin: 06/02/24 00:07 Dose: 5,000 unit Lactated Ringer's (Lr) 1,000 mls @ 150 mls/hr IVCONT .Q6H40M [facility] Stop: 06/02/24 12:39 Last Admin: 06/02/24 05:32 Dose: 150 mls/hr Dextrose (D10) 250 mls @ 750 mls/hr IV Q15M PRN; Protocol PRN Reason: per Hypoglycemia Standing Ord. Insulin Human Lispro (Insulin Lispro 100 Unit/Ml 3 Ml Vial) 0 [facility]; Protocol Last Admin: 06/02/24 06:57 Dose: 2 unit Magnesium Hydroxide (Milk Of Magnesia 30 Ml Oral.Susp) 30 ml PO DAILY PRN PRN Reason: Constipation Melatonin (Melatonin 3 Mg Tablet) 6 mg PO BEDTIME PRN PRN Reason: Insomnia Morphine Sulfate (Morphine Sulfate 4 Mg/Ml Cartridge) 2 mg IVPUSH Q4H PRN; Protocol PRN Reason: Pain, Severe (Pain Scale 7-10) Last Admin: 06/01/24 22:37 Dose: 2 mg Ondansetron HCl (Ondansetron Hcl 4 Mg/2 Ml Vial) 4 mg IVPUSH Q8H PRN PRN Reason: Nausea and Vomiting Oxycodone HCl (Oxycodone Hcl Immed Release 5 Mg Tablet) 5 mg PO Q6H PRN PRN Reason: Pain, Moderate(Pain Scale 4-6) Last Admin: 06/02/24 06:08 Dose: 5 mg Sodium Chloride (0.9 % Sodium Chloride Flush 3 Ml Syringe) 3 ml IVFLUSH [facility] Last Admin: 06/02/24 07:38 Dose: Not Given Home Medications ?Medication ?Instructions ?Recorded ?Confirmed ?Last Taken ?Type amlodipine 10 mg tablet 10 mg PO DAILY 06/01/24 Unknown History aspirin 81 mg tablet,delayed 81 mg PO DAILY 06/01/24 Unknown History release carvedilol 6.25 mg tablet 6.25 mg PO BID 06/01/24 Unknown History cholecalciferol (vitamin D3) 50 50 mcg PO DAILY 06/01/24 Unknown History mcg (2,000 unit) capsule dapagliflozin propanediol 5 mg 5 mg PO QAM 06/01/24 Unknown History tablet (Farxiga) docusate sodium 100 mg capsule 100 mg PO BID PRN constipation 06/01/24 Unknown History folic acid 1 mg tablet 1 mg PO DAILY 06/01/24 Unknown History lamotrigine 100 mg tablet 100 mg PO BID 06/01/24 Unknown History latanoprost 0.005 % eye drops 1 drp ophthalmic (eye) BEDTIME 06/01/24 Unknown History lisinopril 10 mg tablet 10 mg PO DAILY 06/01/24 Unknown History lisinopril 20 mg tablet 20 mg PO DAILY 06/01/24 Unknown History lorazepam 1 mg tablet 1 mg PO QID 06/01/24 Unknown History multivitamin with folic acid 400 1 tab PO DAILY 06/01/24 Unknown History mcg tablet (Daily-Simone (with folic acid)) quetiapine 100 mg tablet 100 mg PO TID 06/01/24 Unknown History rosuvastatin 20 mg tablet 20 mg PO BEDTIME 06/01/24 Unknown History sennosides 8.6 mg tablet (senna) 17.2 mg PO BEDTIME PRN constipation 06/01/24 Unknown History Physical Exam Vital Signs: Last Vital Signs Temp 97.9 F 06/02/24 04:36 Pulse 83 06/02/24 04:36 Resp 16 06/02/24 06:00 BP 177/79 H 06/02/24 04:36 Pulse Ox 99 06/02/24 04:36 O2 Del Method Room Air 06/02/24 04:36 BMI result Body Mass Index 28.8 Results Lab Results 06/02/24 05:36 06/02/24 05:36 Lab results: Chemistry 06/01/24 06/01/24 06/02/24 13:33 19:51 05:36 Sodium 144 149 H 143 Potassium 5.8 H 5.0 5.3 H Carbon Dioxide 15 L 14 L 13 L BUN 72 H 66 H 59 H Creatinine 4.23 H* 3.95 H 3.98 H Calcium 9.0 8.9 8.8 Hematology 06/01/24 06/02/24 13:33 05:36 WBC 11.3 H 12.2 H Hgb 12.1 L 12.9 L Plt Count 194 230 Urinalysis 06/01/24 16:15 Urine Color Yellow Urine Appearance Clear Urine pH 5.5 Ur Specific [place] 1.010 Urine Protein 300 (3+) H Urine Glucose (UA) 250 H Urine Ketones Negative Urine Blood Negative Urine Nitrite Negative Ur Leukocyte Esterase Negative Urine RBC 0-2 Urine WBC 0-5 Ur Squamous Epith Cells 0-2 Hyaline Casts 0-2 Urine Studies 06/01/24 16:15 Urine Creatinine 20.34 Assessment and Plan (1) Acute kidney injury superimposed on CKD: Status: Acute Plan 1. Chronic kidney disease, stage 4 (severe) 2. Essential hypertension 3. Type 2 diabetes mellitus with diabetic nephropathy 1. 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 Essential hypertension - Hold Acei - cont amlodipine well - he is no longer on any ryder blocking agents given his severe life- threatening bradycardia . 3. Prior history of hepatitis C -In remission status post treatment in 2016 -Follows with Dr. Augustin from gastroenterology for chronic screening Procedures Date of Service Date of Service: 06/02/24
--- NOTE | 2024-06-02 07:45 | MHC.EDTECH ---
pt provided breakfast tray, ate 100%, tolerated well, call leo within reach
[2024-06-02 08:40] LABS: Estimated Average Glucose 126 mg/dL; Hemoglobin A1C 136.4942 umol/L; Total Hemoglobin (HGBA1C) 3264.5323 umol/L
[2024-06-02] MEDS: Sodium Bicarbonate 8.4% 100 MEQ in Dextrose 5 % 900 ML IV (09:17)
--- NOTE | 2024-06-02 09:18 | PHA.MEDREC ---
Pharmacy Consult ? Medication Reconciliation Pharmacy has completed the medication reconciliation. Spoke with patient in ED. Patient said he took all medications before coming in. Patient takes lorazepam only PRN and seroquel 2-3 tabs at bedtime. He is not on simbrinza or ibuprofen. Patient confirmed he is only taking Lisinopril 10 mg ( not 20 mg) . Provider made aware med rec complete
[2024-06-02] MEDS: Sodium Zirconium Cyclosilicate 5 GM POWD.PACK PO (09:23)
[2024-06-02] MEDS: LORazepam 0.5 MG TABLET PO (10:41)
[2024-06-02] MEDS: Cyclobenzaprine HCl 5 MG TABLET 2.5 MG PO ×3 (10:41→20:51)
[2024-06-02] MEDS: Omeprazole 20 MG CAPSULE.DR PO (10:41)
[2024-06-02] MEDS: Nicotine 14 MG PATCH.TD24 TRANSDERMA (10:42)
[2024-06-02 11:20] VITALS: RESP 15
[2024-06-02] MEDS: Morphine Sulfate 4 MG/ML CARTRIDGE 2 MG IVPUSH ×2 (11:20→21:34)
--- NOTE | 2024-06-02 12:33 | MHC.CM.PN ---
CM met with Patient at bedside, in the ED, and addressed IMM with him, providing Patient with the original and a copy will be placed on the chart.Patient lives alone in an apartment and he states that he will begin using a cane and he receives MOWs. Home is the goal and CM has initiated and will follow for dc planning. PCP is Dr. Kelly Butler and Patient's Friend/Deuce will transport to home.
--- NOTE | 2024-06-02 12:40 | HO.PM.IMPN ---
Subjective Subjective Date of Service: 06/02/24 Interval History: ? patient says he has ckd(cr baseline donot know) back pain improving Review of Systems Review of Systems: Yes all other systems are reviewed and are negative Physical Exam Vital Signs: Vital Signs: Last Vital Signs Temp 97.9 F 06/02/24 04:36 Pulse 83 06/02/24 04:36 Resp 15 06/02/24 11:20 BP 177/79 H 06/02/24 04:36 Pulse Ox 99 06/02/24 04:36 O2 Del Method Room Air 06/02/24 04:36 BMI result Body Mass Index 28.8 Appearance: Alert.? Oriented X3.? cvs: rrr, [id number] , no murmur res: clear to auscultation ,no rhonchii or wheezing abd: no rebound or guarding ,nt, bs present. ext pulses present , no cyanosis . Ms:back pain seems somewhat improving , able to sit . neuro: axo3 , nonfocal. Objective Data Active Medications Acetaminophen (Acetaminophen 325 Mg Tablet) 650 mg PO Q6H PRN PRN Reason: Pain, Mild (Pain Scale 1-3), fever or headache Amlodipine Besylate (Amlodipine Besylate 10 Mg Tablet) 10 mg PO DAILY [facility]; Protocol Aspirin (Aspirin Enteric Coated 81 Mg Tablet.Dr) 81 mg PO DAILY [facility] Atorvastatin Calcium (Atorvastatin Calcium 80 Mg Tablet) 80 mg PO BEDTIME [facility] Calcium Carbonate (Calcium Carbonate 750 Mg Tab.Chew) 750 mg PO Q4H PRN PRN Reason: Heartburn Carvedilol (Carvedilol 6.25 Mg Tablet) 6.25 mg PO BID [facility]; Protocol Cyclobenzaprine HCl (Cyclobenzaprine Hcl 5 Mg Tablet) 2.5 mg PO BID [facility] Last Admin: 06/02/24 10:41 Dose: 2.5 mg Documented By: ANA Docusate Sodium (Docusate Sodium 100 Mg Capsule) 100 mg PO BID PRN PRN Reason: constipation Folic Acid (Folic Acid 1 Mg Tablet) 1 mg PO DAILY [facility] Glucose (Glucose Gel 15 Gm Gel..Gram.) 15 gm PO Q15M PRN; Protocol PRN Reason: per Hypoglycemia Standing Ord. Heparin Sodium (Porcine) (Heparin Sodium,Porcine 5,000 Unit/Ml Vial) 5,000 unit SUBCUT Q12H [facility] Last Admin: 06/02/24 10:42 Dose: 5,000 unit Documented By: ANA Dextrose (D10) 250 mls @ 750 mls/hr IV Q15M PRN; Protocol PRN Reason: per Hypoglycemia Standing Ord. Sodium Bicarbonate 100 meq/ (Dextrose) 1,000 mls @ 100 mls/hr IV .Q10H [facility] Last Admin: 06/02/24 09:17 Dose: 100 mls/hr Documented By: ANA Insulin Human Lispro (Insulin Lispro 100 Unit/Ml 3 Ml Vial) 0 unit SUBCUT QIDACHS [facility]; Protocol Last Admin: 06/02/24 06:57 Dose: 2 unit Documented By: MARCELINA Lamotrigine (Lamotrigine 100 Mg Tablet) 100 mg PO BID [facility] Latanoprost (Latanoprost 0.005 % Ophth Saima 2.5 Ml Drops) 1 drop EYE-BOTH BEDTIME [facility] Lorazepam (Lorazepam 1 Mg Tablet) 1 mg PO QID PRN PRN Reason: Anxiety Magnesium Hydroxide (Milk Of Magnesia 30 Ml Oral.Susp) 30 ml PO DAILY PRN PRN Reason: Constipation Melatonin (Melatonin 3 Mg Tablet) 6 mg PO BEDTIME PRN PRN Reason: Insomnia Morphine Sulfate (Morphine Sulfate 4 Mg/Ml Cartridge) 2 mg IVPUSH Q4H PRN; Protocol PRN Reason: Pain, Severe (Pain Scale 7-10) Last Admin: 06/02/24 11:20 Dose: 2 mg Documented By: ANA Multivitamins/Vitamin C (Multivitamin Tablet) 1 tab PO DAILY [facility] Last Admin: 06/02/24 10:50 Dose: Not Given Documented By: ANA Non-Admin Reason: Previously Administered Nicotine (Nicotine 14 Mg Patch.Td24) 14 mg TRANSDERMA DAILY [facility] Last Admin: 06/02/24 10:42 Dose: 14 mg Documented By: ANA Nitroglycerin (Nitroglycerin 0.4 Mg Tab.Subl) 0.4 mg SUBLINGUAL Q5M PRN PRN Reason: Chest Pain Omeprazole (Omeprazole 20 Mg Capsule.Dr) 20 mg PO DAILY@0630 [facility] Last Admin: 06/02/24 10:41 Dose: 20 mg Documented By: ANA Ondansetron HCl (Ondansetron Hcl 4 Mg/2 Ml Vial) 4 mg IVPUSH Q8H PRN PRN Reason: Nausea and Vomiting Oxycodone HCl (Oxycodone Hcl Immed Release 5 Mg Tablet) 5 mg PO Q6H PRN PRN Reason: Pain, Moderate(Pain Scale 4-6) Last Admin: 06/02/24 06:08 Dose: 5 mg Documented By: MARCELINA Quetiapine Fumarate (Quetiapine Fumarate 100 Mg Tablet) 200 mg PO BEDTIME [facility] Quetiapine Fumarate (Quetiapine Fumarate 100 Mg Tablet) 100 mg PO BEDTIME PRN PRN Reason: Sleep Senna (Sennosides 8.6 Mg Tablet) 17.2 mg PO BEDTIME PRN PRN Reason: constipation Sodium Chloride (0.9 % Sodium Chloride Flush 3 Ml Syringe) 3 ml IVFLUSH QSHIFT [facility] Last Admin: 06/02/24 07:38 Dose: Not Given Documented By: ANA Non-Admin Reason: Previously Administered Vitamin D (Cholecalciferol (Vitamin D3) 25 Mcg Tablet) 50 mcg PO DAILY [facility] Labs 06/02/24 05:36 06/02/24 05:36 Labs: Laboratory Results - last 24 hr 06/01/24 06/01/24 06/01/24 13:32 13:33 16:15 MCV 89.7 MCH 30.4 MCHC 33.9 RDW 13.1 Plt Count 194 MPV 9.8 Immature Gran % (Auto) 0.4 Neut % (Auto) 71.5 Lymph % (Auto) 12.9 L [place] % (Auto) 6.4 Eos % (Auto) 8.4 H Baso % (Auto) 0.4 Lymph # (Auto) 1.5 [place] # (Auto) 0.7 Eos # (Auto) 1.0 H Baso # (Auto) 0.1 Abs Immat Gran (auto) 0.04 H Absolute Neuts (auto) 8.1 Absolute Nucleated RBC 0.000 Nucleated RBC % (auto) 0.0 Anion Gap 17 Estim Creat Clear Calc 18.3 Estimated GFR 14 POC Glucose Random Glucose 102 Estimat Average Glucose Hemoglobin A1c % Calcium 9.0 Magnesium 2.1 Total Bilirubin 0.3 Direct Bilirubin 0.1 AST 24 ALT 22 Alkaline Phosphatase 79 Total Creatine Kinase 78 Troponin I High Sens 93.9 H B-Natriuretic Peptide 474 H Total Protein 7.6 Albumin 4.3 Beta-Hydroxybutyrate Urine Color Yellow Urine Appearance Clear Urine pH 5.5 Ur Specific [place] 1.010 Urine Protein 300 (3+) H Urine Glucose (UA) 250 H Urine Ketones Negative Urine Blood Negative Urine Nitrite Negative Ur Leukocyte Esterase Negative Urine RBC 0-2 Urine WBC 0-5 Ur Squamous Epith Cells 0-2 Urine Bacteria None Seen Hyaline Casts 0-2 U Random Total Protein 182 H Ur Random Sodium 93.0 Urine Creatinine 20.34 Protein/Creatinin Ratio 8.95 H 06/01/24 06/01/24 06/01/24 18:31 19:51 23:21 MCV MCH MCHC RDW Plt Count MPV Immature Gran % (Auto) Neut % (Auto) Lymph % (Auto) [place] % (Auto) Eos % (Auto) Baso % (Auto) Lymph # (Auto) [place] # (Auto) Eos # (Auto) Baso # (Auto) Abs Immat Gran (auto) Absolute Neuts (auto) Absolute Nucleated RBC Nucleated RBC % (auto) Anion Gap 20 Estim Creat Clear Calc 19.7 Estimated GFR 15 POC Glucose 216 H Random Glucose 90 Estimat Average Glucose Hemoglobin A1c % Calcium 8.9 Magnesium Total Bilirubin 0.3 Direct Bilirubin AST 19 ALT 18 Alkaline Phosphatase 81 Total Creatine Kinase Troponin I High Sens 104.7 H* B-Natriuretic Peptide Total Protein 7.1 Albumin 4.1 Beta-Hydroxybutyrate Urine Color Urine Appearance Urine pH Ur Specific [place] Urine Protein Urine Glucose (UA) Urine Ketones Urine Blood Urine Nitrite Ur Leukocyte Esterase Urine RBC Urine WBC Ur Squamous Epith Cells Urine Bacteria Hyaline Casts U Random Total Protein Ur Random Sodium Urine Creatinine Protein/Creatinin Ratio 06/02/24 06/02/24 06/02/24 03:31 05:36 06:51 MCV 87.7 MCH 29.9 MCHC 34.0 RDW 13.1 Plt Count 230 MPV 9.6 Immature Gran % (Auto) Neut % (Auto) Lymph % (Auto) [place] % (Auto) Eos % (Auto) Baso % (Auto) Lymph # (Auto) [place] # (Auto) Eos # (Auto) Baso # (Auto) Abs Immat Gran (auto) Absolute Neuts (auto) Absolute Nucleated RBC 0.000 Nucleated RBC % (auto) 0.0 Anion Gap 17 Estim Creat Clear Calc 19.5 Estimated GFR 15 POC Glucose 155 H 161 H Random Glucose 157 H Estimat Average Glucose 126 Hemoglobin A1c % 6.0 Calcium 8.8 Magnesium Total Bilirubin Direct Bilirubin AST ALT Alkaline Phosphatase Total Creatine Kinase Troponin I High Sens B-Natriuretic Peptide 315 H Total Protein Albumin Beta-Hydroxybutyrate 0.06 Urine Color Urine Appearance Urine pH Ur Specific [place] Urine Protein Urine Glucose (UA) Urine Ketones Urine Blood Urine Nitrite Ur Leukocyte Esterase Urine RBC Urine WBC Ur Squamous Epith Cells Urine Bacteria Hyaline Casts U Random Total Protein Ur Random Sodium Urine Creatinine Protein/Creatinin Ratio Assessment and Plan (1) Metabolic acidosis: Status: Acute (2) Hyperkalemia: Status: Acute (3) Acute kidney injury superimposed on CKD: Status: Acute Plan 68-year-old male with a PMH significant for HTN, HLD, CAD s/p stenting around 2017 and 2018, [id number] type 2 diabetes, CKD [address] Hui, and chronic lower back pain who presents to the ED for evaluation of worsening lower back pain radiating to left leg. Pt will be admitted to the hospital for treatment and further evaluation of ESTELA on CKD likely prerenal. ESTELA on CKD3 with BICARB 13 ( mulifactorial -using nsaid's ,lisiniopril,dec po intake baseline cr seems 2.6-2.8 CT of abdomen/pelvis negative, UA showing proteinuria and protein/creatinine ratio elevated at 8.95 Plan: cr improving from 4.23 -3.98 ivf changed to bicard/d5w ,moniter bmp closely nephrology eval Hyperkalemia: imrpoving added loklema Monitor on telemetry Elevated troponins: Initial troponin 93.9 with repeat 104.7, baseline unknown Patient asymptomatic, EKG without ischemic changes Monitor on telemetry Elevated BNP BNP 474, baseline unknown Patient with no known CHF history Patient receiving IVF due to Estela on CKD Trend BNP down HTN:Hold lisinopril CAD/HLD:Continue aspirin, statin [id number] type 2 diabetes Continue home meds Sliding-scale insulin, diabetic diet back pain ; seemsimproving continue pain meds,flexril Full Code DVT Prophylaxis: Heparin ongoing need for hospitalization -treatment of?ESTELA on CKD and hyperkalemia that will require administration of IV fluids, close monitoring of electrolytes and kidney function, and specialist consultation with Nephrology. Quality Stroke Does the patient have a stroke diagnosis?: No VTE Prior VTE?: No VTE Risk Level:: Medical - moderate - high VTE Device Contraindication: Treatment Not Indicated VTE Drug Contraindication: N/A - Med Ordered
[2024-06-02 13:29] LABS: Glucose, Whole Blood 134 mg/dL (60-115)
[2024-06-02 15:56] VITALS: BP 170/74; PULSE 70; RESP 16; TEMP 36.8; O2SAT 97
[2024-06-02 18:26] LABS: Glucose, Whole Blood 112 mg/dL (60-115)
--- NOTE | 2024-06-02 18:27 | MHC.EDTECH ---
pt POC taken, entered in worklist, RN aware, 112 result, dinner tray given
[2024-06-02] MEDS: Sodium Bicarbonate 8.4% 150 MEQ in Dextrose 5 % 850 ML 100 MEQ IV (18:31)
[2024-06-02 20:28] LABS: Glucose, Whole Blood 133 mg/dL (60-115)
[2024-06-02] MEDS: Atorvastatin Calcium 80 MG TABLET PO (20:50)
[2024-06-02] MEDS: lamoTRIgine 100 MG TABLET PO (20:50)
[2024-06-02] MEDS: carvediloL 6.25 MG TABLET PO (20:51)
[2024-06-02] MEDS: LORazepam 1 MG TABLET PO (21:00)
[2024-06-02] MEDS: Latanoprost 0.005 % Ophth Sol 2.5 ML DROPS 1 DROP EYE-BOTH (21:21)
[2024-06-02] MEDS: Docusate Sodium 100 MG CAPSULE PO (21:21)
[2024-06-02] MEDS: QUEtiapine Fumarate 100 MG TABLET PO (21:34)
[2024-06-02 21:36] VITALS: BP 186/88; PULSE 96; RESP 20; TEMP 36.7; O2SAT 98
[2024-06-03] VITALS (7 sets, daily range): BP systolic 114–171; BP diastolic 35–82; PULSE 67–86; RESP 16–20; TEMP 36.1–37.2; O2SAT 96–98; BMI 28.8
[2024-06-03] MEDS: Sodium Bicarbonate 8.4% 150 MEQ in Dextrose 5 % 850 ML 100 MEQ IV (03:56)
[2024-06-03] MEDS: oxyCODONE HCl Immed Release 5 MG TABLET PO ×3 (04:03→18:07)
[2024-06-03 04:59] LABS: Anion Gap 18 (12-20); Blood Urea Nitrogen 55 mg/dL (9-16); Calcium 8.1 mg/dL (8.4-10.2); Carbon Dioxide 20 mmol/L (22-29); Chloride 110 mmol/L (96-108); Creatinine Clr Calc Pharmacy 19.9; Estimated Glomerular Filt Rate 15; Glucose Random 146 mg/dL (60-115); Potassium 3.8 mmol/L (3.3-5.1); Sodium 144 mmol/L (135-145)
[2024-06-03] MEDS: Omeprazole 20 MG CAPSULE.DR PO (06:19)
[2024-06-03 07:31] LABS: Glucose, Whole Blood 122 mg/dL (60-115)
[2024-06-03] MEDS: LORazepam 1 MG TABLET PO ×3 (09:02→19:58)
[2024-06-03] MEDS: carvediloL 6.25 MG TABLET PO (09:25)
[2024-06-03] MEDS: amLODIPine Besylate 10 MG TABLET PO (09:26)
[2024-06-03] MEDS: Cyclobenzaprine HCl 5 MG TABLET 2.5 MG PO ×3 (09:28→19:57)
[2024-06-03] MEDS: Folic Acid 1 MG TABLET PO (09:37)
[2024-06-03] MEDS: Cholecalciferol (Vitamin D3) 25 MCG TABLET 50 MCG PO (09:37)
[2024-06-03] MEDS: Multivitamin TABLET 1 TAB PO (09:37)
[2024-06-03] MEDS: Aspirin Enteric Coated 81 MG TABLET.DR PO (09:37)
[2024-06-03] MEDS: lamoTRIgine 100 MG TABLET PO ×2 (09:37→19:58)
[2024-06-03] MEDS: 0.9 % Sodium Chloride Flush 3 ML SYRINGE IVFLUSH ×2 (09:39→14:39)
[2024-06-03] MEDS: Albumin Human 25 % 50 ML 100 ML IV (09:46)
[2024-06-03] MEDS: Heparin Sodium,Porcine 5,000 UNIT/ML VIAL 5000 UNIT SUBCUT ×2 (11:23→20:06)
[2024-06-03] MEDS: Nicotine Polacrilex 2 MG GUM BUCCAL ×3 (11:33→16:24)
[2024-06-03 11:55] LABS: Glucose, Whole Blood 138 mg/dL (60-115)
--- NOTE | 2024-06-03 12:26 | HO.PM.IMPN ---
Subjective Subjective Date of Service: 06/03/24 Interval History: estela Review of Systems cr seems similar denies any abd pain says he is producing urine Physical Exam Vital Signs: Vital Signs: Last Vital Signs Temp 97.6 F 06/03/24 12:00 Pulse 67 06/03/24 12:00 Resp 20 06/03/24 12:00 BP 160/74 H 06/03/24 12:00 Pulse Ox 97 06/03/24 12:00 O2 Del Method Room Air 06/03/24 12:00 BMI result Body Mass Index 28.8 Appearance: Alert.? Oriented X3.? cvs: rrr, [id number] , no murmur res: clear to auscultation ,no rhonchii or wheezing abd: no rebound or guarding ,nt, bs present. ext pulses present , no cyanosis . Ms:back pain seems somewhat improving , able to sit . neuro: axo3 , nonfocal. Objective Data Active Medications Acetaminophen (Acetaminophen 325 Mg Tablet) 650 mg PO Q6H PRN PRN Reason: Pain, Mild (Pain Scale 1-3), fever or headache Amlodipine Besylate (Amlodipine Besylate 10 Mg Tablet) 10 mg PO DAILY [facility]; Protocol Last Admin: 06/03/24 09:26 Dose: 10 mg Documented By: GUS Aspirin (Aspirin Enteric Coated 81 Mg Tablet.) 81 mg PO DAILY [facility] Last Admin: 06/03/24 09:37 Dose: 81 mg Documented By: GUS Atorvastatin Calcium (Atorvastatin Calcium 80 Mg Tablet) 80 mg PO BEDTIME [facility] Last Admin: 06/02/24 20:50 Dose: 80 mg Documented By: MARTHA Calcium Carbonate (Calcium Carbonate 750 Mg Tab.Chew) 750 mg PO Q4H PRN PRN Reason: Heartburn Carvedilol (Carvedilol 12.5 Mg Tablet) 12.5 mg PO BID [facility]; Protocol Cyclobenzaprine HCl (Cyclobenzaprine Hcl 5 Mg Tablet) 2.5 mg PO TID [facility] Last Admin: 06/03/24 09:28 Dose: 2.5 mg Documented By: GUS Docusate Sodium (Docusate Sodium 100 Mg Capsule) 100 mg PO BID PRN PRN Reason: constipation Last Admin: 06/02/24 21:21 Dose: 100 mg Documented By: JAZMINE Folic Acid (Folic Acid 1 Mg Tablet) 1 mg PO DAILY [facility] Last Admin: 06/03/24 09:37 Dose: 1 mg Documented By: GUS Glucose (Glucose Gel 15 Gm Gel..Gram.) 15 gm PO Q15M PRN; Protocol PRN Reason: per Hypoglycemia Standing Ord. Heparin Sodium (Porcine) (Heparin Sodium,Porcine 5,000 Unit/Ml Vial) 5,000 unit SUBCUT Q12H [facility] Last Admin: 06/03/24 11:23 Dose: 5,000 unit Documented By: GUS Dextrose (D10) 250 mls @ 750 mls/hr IV Q15M PRN; Protocol PRN Reason: per Hypoglycemia Standing Ord. Insulin Human Lispro (Insulin Lispro 100 Unit/Ml 3 Ml Vial) 0 unit SUBCUT QIDACHS [facility]; Protocol Last Admin: 06/03/24 11:53 Dose: Not Given Documented By: GUS Non-Admin Reason: No Insulin Coverage Lamotrigine (Lamotrigine 100 Mg Tablet) 100 mg PO BID [facility] Last Admin: 06/03/24 09:37 Dose: 100 mg Documented By: GUS Latanoprost (Latanoprost 0.005 % Ophth Saima 2.5 Ml Drops) 1 drop EYE-BOTH BEDTIME [facility] Last Admin: 06/02/24 21:21 Dose: 1 drop Documented By: JAZMINE Lorazepam (Lorazepam 1 Mg Tablet) 1 mg PO BID PRN PRN Reason: Anxiety Last Admin: 06/03/24 09:02 Dose: 1 mg Documented By: GUS Magnesium Hydroxide (Milk Of Magnesia 30 Ml Oral.Susp) 30 ml PO DAILY PRN PRN Reason: Constipation Melatonin (Melatonin 3 Mg Tablet) 6 mg PO BEDTIME PRN PRN Reason: Insomnia Morphine Sulfate (Morphine Sulfate 4 Mg/Ml Cartridge) 2 mg IVPUSH Q4H PRN; Protocol PRN Reason: Pain, Severe (Pain Scale 7-10) Last Admin: 06/02/24 21:34 Dose: 2 mg Documented By: JAZMINE Multivitamins/Vitamin C (Multivitamin Tablet) 1 tab PO DAILY [facility] Last Admin: 06/03/24 09:37 Dose: 1 tab Documented By: GUS Nicotine (Nicotine 14 Mg Patch.Td24) 14 mg TRANSDERMA DAILY [facility] Last Admin: 06/03/24 09:40 Dose: Not Given Documented By: GUS Non-Admin Reason: Patient Refused Nicotine Polacrilex (Nicotine Polacrilex 2 Mg Gum) 2 mg BUCCAL Q1H PRN PRN Reason: Nicotine Cravings Last Admin: 06/03/24 11:33 Dose: 2 mg Documented By: GUS Nitroglycerin (Nitroglycerin 0.4 Mg Tab.Subl) 0.4 mg SUBLINGUAL Q5M PRN PRN Reason: Chest Pain Omeprazole (Omeprazole 20 Mg Capsule.Dr) 20 mg PO DAILY@0630 [facility] Last Admin: 06/03/24 06:19 Dose: 20 mg Documented By: JAZMINE Ondansetron HCl (Ondansetron Hcl 4 Mg/2 Ml Vial) 4 mg IVPUSH Q8H PRN PRN Reason: Nausea and Vomiting Oxycodone HCl (Oxycodone Hcl Immed Release 5 Mg Tablet) 5 mg PO Q6H PRN PRN Reason: Pain, Moderate(Pain Scale 4-6) Last Admin: 06/03/24 10:07 Dose: 5 mg Documented By: GUS Quetiapine Fumarate (Quetiapine Fumarate 200 Mg Tablet) 200 mg PO BEDTIME [facility] Senna (Sennosides 8.6 Mg Tablet) 17.2 mg PO BEDTIME PRN PRN Reason: constipation Sodium Chloride (0.9 % Sodium Chloride Flush 3 Ml Syringe) 3 ml IVFLUSH QSHIFT [facility] Last Admin: 06/03/24 09:39 Dose: 3 ml Documented By: GUS Vitamin D (Cholecalciferol (Vitamin D3) 25 Mcg Tablet) 50 mcg PO DAILY [facility] Last Admin: 06/03/24 09:37 Dose: 50 mcg Documented By: GUS Labs 06/02/24 05:36 06/03/24 03:55 Labs: Laboratory Results - last 24 hr 06/02/24 06/02/24 06/02/24 13:08 18:21 20:23 Anion Gap Estim Creat Clear Calc Estimated GFR POC Glucose 134 H 112 133 H Random Glucose Calcium 06/03/24 06/03/24 06/03/24 03:55 07:26 11:51 Anion Gap 18 Estim Creat Clear Calc 19.9 Estimated GFR 15 POC Glucose 122 H 138 H Random Glucose 146 H Calcium 8.1 L D Assessment and Plan (1) Metabolic acidosis: Status: Acute (2) Hyperkalemia: Status: Acute (3) Acute kidney injury superimposed on CKD: Status: Acute Plan 68-year-old male with a PMH significant for HTN, HLD, CAD s/p stenting around 2016 and 2018, [id number] type 2 diabetes, CKD [address] Hui, and chronic lower back pain who presents to the ED for evaluation of worsening lower back pain radiating to left leg. Pt will be admitted to the hospital for treatment and further evaluation of ESTELA on CKD likely prerenal. ESTELA on CKD3 with BICARB 13 ( mulifactorial -using nsaid's ,lisiniopril,dec po intake baseline cr seems 2.6-2.8 CT of abdomen/pelvis negative, UA showing proteinuria and protein/creatinine ratio elevated at 8.95 Plan: cr improving from 4.23 -3.90 dc bicarb drip , bicarb is 20 encouraged for po intake and hydration 300 ml free water moniter bmp closely nephrology eval noted , nephro followup. Hyperkalemia: imrpoved with loklema. Elevated troponins: Initial troponin 93.9 with repeat 104.7, baseline unknown Patient asymptomatic, EKG without ischemic changes Monitor on telemetry Elevated BNP BNP 474,-rechecked 315 Patient with no known CHF history seems euvolemic. HTN:Hold lisinopril CAD/HLD:Continue aspirin, statin [id number]-pcfyrfswq type 2 diabetes Continue home meds Sliding-scale insulin, diabetic diet back pain ; seemsimproving continue pain meds,flexril Full Code DVT Prophylaxis: Heparin ongoing need for hospitalization -treatment of?ESTELA on CKD and hyperkalemia that will require administration of IV fluids, close monitoring of electrolytes and kidney function, and specialist consultation with Nephrology. Quality Stroke Does the patient have a stroke diagnosis?: No VTE Prior VTE?: No VTE Risk Level:: Medical - moderate - high VTE Device Contraindication: Treatment Not Indicated VTE Drug Contraindication: N/A - Med Ordered
[2024-06-03] MEDS: hydrALAZINE HCl 25 MG TABLET PO ×2 (16:21→19:58)
[2024-06-03 16:47] LABS: Glucose, Whole Blood 108 mg/dL (60-115)
[2024-06-03] MEDS: Sennosides 8.6 MG TABLET 17.2 MG PO (18:07)
[2024-06-03] MEDS: Docusate Sodium 100 MG CAPSULE PO (18:07)
--- NOTE | 2024-06-03 19:38 | P.PNNP_ITS ---
Subjective Subjective Date of Service: 06/04/24 Interval history: estela Physical Exam 2 Vital Signs: Vital Signs: Last Vital Signs Temp 97.1 F 06/03/24 15:54 Pulse 73 06/03/24 16:15 Resp 18 06/03/24 15:54 BP 144/62 H 06/03/24 16:15 Pulse Ox 97 06/03/24 16:15 O2 Del Method Room Air 06/03/24 15:54 BMI result Body Mass Index 28.8 cvs: s1s2, jvp + Rs; cta ABd; soft no pedal edema Objective Data Labs 06/02/24 05:36 06/03/24 03:55 Labs: Laboratory Results - last 24 hr 06/02/24 06/03/24 06/03/24 20:23 03:55 07:26 Sodium 144 Potassium 3.8 D Chloride 110 H Carbon Dioxide 20 L Anion Gap 18 BUN 55 H Creatinine 3.90 H Estim Creat Clear Calc 19.9 Estimated GFR 15 POC Glucose 133 H 122 H Random Glucose 146 H Calcium 8.1 L D 06/03/24 06/03/24 11:51 16:43 Sodium Potassium Chloride Carbon Dioxide Anion Gap BUN Creatinine Estim Creat Clear Calc Estimated GFR POC Glucose 138 H 108 Random Glucose Calcium Procedures Date of Service Date of Service: 06/04/24 Assessment & Plan Assessment and plan (1) Acute kidney injury superimposed on CKD: Status: Acute Plan 1. 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 Essential hypertension - Hold Acei - cont amlodipine well - he is no longer on any ryder blocking agents given his severe life- threatening bradycardia . 3. Prior history of hepatitis C -In remission status post treatment in 2016 -Follows with Dr. Augustin from gastroenterology for chronic screening Time Spent With Patient Time: Total time managing care of this patient today ____ minutes. Progress Note: Quality Stroke Does the patient have a stroke diagnosis?: No
[2024-06-03] MEDS: QUEtiapine Fumarate 200 MG TABLET PO (19:58)
[2024-06-03] MEDS: Atorvastatin Calcium 80 MG TABLET PO (19:58)
[2024-06-03 20:00] LABS: Glucose, Whole Blood 119 mg/dL (60-115)
[2024-06-04 03:48] VITALS: BP 145/63; PULSE 66; RESP 17; TEMP 36.5; O2SAT 95
[2024-06-04] MEDS: Omeprazole 20 MG CAPSULE.DR PO (05:33)
[2024-06-04] MEDS: oxyCODONE HCl Immed Release 5 MG TABLET PO ×3 (05:33→17:20)
[2024-06-04] MEDS: LORazepam 1 MG TABLET PO ×3 (05:33→23:32)
[2024-06-04 07:12] VITALS: BP 168/74; PULSE 84; RESP 18; TEMP 36.7; O2SAT 97
[2024-06-04 07:19] LABS: Glucose, Whole Blood 101 mg/dL (60-115)
--- NOTE | 2024-06-04 08:01 | P.PNNP_ITS ---
Subjective Subjective Date of Service: 06/04/24 Interval history: setela Physical Exam 2 Vital Signs: Vital Signs: Last Vital Signs Temp 98.0 F 06/04/24 07:12 Pulse 84 06/04/24 07:12 Resp 18 06/04/24 07:12 BP 168/74 H 06/04/24 07:12 Pulse Ox 97 06/04/24 07:12 O2 Del Method Room Air 06/04/24 07:12 BMI result Body Mass Index 28.8 cvs: s1s2, jvp + Rs; cta ABd; soft no pedal edema Objective Data Labs 06/02/24 05:36 06/04/24 08:15 Labs: Laboratory Results - last 24 hr 06/03/24 06/03/24 06/03/24 11:51 16:43 19:56 POC Glucose 138 H 108 119 H 06/04/24 07:16 POC Glucose 101 Procedures Date of Service Date of Service: 06/04/24 Assessment & Plan Assessment and plan (1) Acute kidney injury superimposed on CKD: Status: Acute Plan 1. 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 Essential hypertension - Hold Acei - cont amlodipine well - he is no longer on any ryder blocking agents given his severe life- threatening bradycardia . 3. Prior history of hepatitis C -In remission status post treatment in 2016 -Follows with Dr. Augustin from gastroenterology for chronic screening Time Spent With Patient Time: Total time managing care of this patient today ____ minutes. Progress Note: Quality Stroke Does the patient have a stroke diagnosis?: No
[2024-06-04] MEDS: Aspirin Enteric Coated 81 MG TABLET.DR PO (08:31)
[2024-06-04] MEDS: 0.9 % Sodium Chloride Flush 3 ML SYRINGE IVFLUSH ×3 (08:31→20:36)
[2024-06-04] MEDS: Heparin Sodium,Porcine 5,000 UNIT/ML VIAL 5000 UNIT SUBCUT ×2 (08:32→20:39)
[2024-06-04] MEDS: amLODIPine Besylate 10 MG TABLET PO (08:33)
[2024-06-04] MEDS: Cholecalciferol (Vitamin D3) 25 MCG TABLET 50 MCG PO (08:33)
[2024-06-04] MEDS: Folic Acid 1 MG TABLET PO (08:33)
[2024-06-04] MEDS: Multivitamin TABLET 1 TAB PO (08:33)
[2024-06-04] MEDS: hydrALAZINE HCl 25 MG TABLET PO ×3 (08:33→20:34)
[2024-06-04] MEDS: lamoTRIgine 100 MG TABLET PO ×2 (08:34→20:34)
[2024-06-04] MEDS: Cyclobenzaprine HCl 5 MG TABLET 2.5 MG PO ×3 (08:34→19:43)
[2024-06-04 08:50] LABS: Anion Gap 15 (12-20); Blood Urea Nitrogen 58 mg/dL (9-16); Carbon Dioxide 24 mmol/L (22-29); Chloride 110 mmol/L (96-108); Creatinine Clr Calc Pharmacy 20.2; Estimated Glomerular Filt Rate 16; Glucose Random 112 mg/dL (60-115); Potassium 4.4 mmol/L (3.3-5.1); Sodium 145 mmol/L (135-145)
[2024-06-04] MEDS: Nicotine Polacrilex 2 MG GUM BUCCAL ×3 (09:09→23:55)
[2024-06-04] MEDS: Docusate Sodium 100 MG CAPSULE PO ×2 (09:09→16:50)
[2024-06-04] MEDS: Sennosides 8.6 MG TABLET 17.2 MG PO (09:10)
[2024-06-04 11:03] LABS: Glucose, Whole Blood 138 mg/dL (60-115)
--- NOTE | 2024-06-04 13:39 | P.PNIM_ITS ---
Subjective Subjective Date of Service: 06/04/24 Interval History: estela,? urinary retention htn Review of Systems denies new c/o encouraged for ambulation. Physical Exam 2 Vital Signs: Vital Signs: Last Vital Signs Temp 98.0 F 06/04/24 07:12 Pulse 84 06/04/24 07:12 Resp 18 06/04/24 07:12 BP 168/74 H 06/04/24 07:12 Pulse Ox 97 06/04/24 07:12 O2 Del Method Room Air 06/04/24 07:12 BMI result Body Mass Index 28.8 Appearance: Alert.? Oriented X3.? cvs: rrr, [id number] , no murmur res: clear to auscultation ,no rhonchii or wheezing abd: no rebound or guarding ,nt, bs present. ext pulses present , no cyanosis . Ms:back pain seems improving , able to sit . neuro: axo3 , nonfocal. Objective Data Active Medications Acetaminophen (Acetaminophen 325 Mg Tablet) 650 mg PO Q6H PRN PRN Reason: Pain, Mild (Pain Scale 1-3), fever or headache Amlodipine Besylate (Amlodipine Besylate 10 Mg Tablet) 10 mg PO DAILY [facility]; Protocol Last Admin: 06/04/24 08:33 Dose: 10 mg Documented By: RICKY Aspirin (Aspirin Enteric Coated 81 Mg Tablet.) 81 mg PO DAILY [facility] Last Admin: 06/04/24 08:31 Dose: 81 mg Documented By: RICKY Atorvastatin Calcium (Atorvastatin Calcium 80 Mg Tablet) 80 mg PO BEDTIME [facility] Last Admin: 06/03/24 19:58 Dose: 80 mg Documented By: YENI Calcium Carbonate (Calcium Carbonate 750 Mg Tab.Chew) 750 mg PO Q4H PRN PRN Reason: Heartburn Cyclobenzaprine HCl (Cyclobenzaprine Hcl 5 Mg Tablet) 2.5 mg PO TID [facility] Last Admin: 06/04/24 08:34 Dose: 2.5 mg Documented By: RICKY Docusate Sodium (Docusate Sodium 100 Mg Capsule) 100 mg PO BID PRN PRN Reason: constipation Last Admin: 06/04/24 09:09 Dose: 100 mg Documented By: GENO Folic Acid (Folic Acid 1 Mg Tablet) 1 mg PO DAILY [facility] Last Admin: 06/04/24 08:33 Dose: 1 mg Documented By: RICKY Glucose (Glucose Gel 15 Gm Gel..Gram.) 15 gm PO Q15M PRN; Protocol PRN Reason: per Hypoglycemia Standing Ord. Heparin Sodium (Porcine) (Heparin Sodium,Porcine 5,000 Unit/Ml Vial) 5,000 unit SUBCUT Q12H [facility] Last Admin: 06/04/24 08:32 Dose: 5,000 unit Documented By: RICKY Hydralazine HCl (Hydralazine Hcl 25 Mg Tablet) 25 mg PO TID [facility]; Protocol Last Admin: 06/04/24 08:33 Dose: 25 mg Documented By: RICKY Dextrose (D10) 250 mls @ 750 mls/hr IV Q15M PRN; Protocol PRN Reason: per Hypoglycemia Standing Ord. Insulin Human Lispro (Insulin Lispro 100 Unit/Ml 3 Ml Vial) 0 unit SUBCUT QIDACHS [facility]; Protocol Last Admin: 06/04/24 11:26 Dose: Not Given Documented By: RICKY Non-Admin Reason: No Insulin Coverage Lamotrigine (Lamotrigine 100 Mg Tablet) 100 mg PO BID [facility] Last Admin: 06/04/24 08:34 Dose: 100 mg Documented By: RICKY Latanoprost (Latanoprost 0.005 % Ophth Saima 2.5 Ml Drops) 1 drop EYE-BOTH BEDTIME [facility] Last Admin: 06/03/24 20:08 Dose: Not Given Documented By: YENI Non-Admin Reason: Patient Refused Lorazepam (Lorazepam 1 Mg Tablet) 1 mg PO TID PRN PRN Reason: Anxiety Last Admin: 06/04/24 05:33 Dose: 1 mg Documented By: YENI Magnesium Hydroxide (Milk Of Magnesia 30 Ml Oral.Susp) 30 ml PO DAILY PRN PRN Reason: Constipation Melatonin (Melatonin 3 Mg Tablet) 6 mg PO BEDTIME PRN PRN Reason: Insomnia Morphine Sulfate (Morphine Sulfate 4 Mg/Ml Cartridge) 2 mg IVPUSH Q4H PRN; Protocol PRN Reason: Pain, Severe (Pain Scale 7-10) Last Admin: 06/02/24 21:34 Dose: 2 mg Documented By: JAZMINE Multivitamins/Vitamin C (Multivitamin Tablet) 1 tab PO DAILY [facility] Last Admin: 06/04/24 08:33 Dose: 1 tab Documented By: RICKY Nicotine (Nicotine 14 Mg Patch.Td24) 14 mg TRANSDERMA DAILY [facility] Last Admin: 06/04/24 09:21 Dose: Not Given Documented By: RICKY Non-Admin Reason: Patient Refused Nicotine Polacrilex (Nicotine Polacrilex 2 Mg Gum) 2 mg BUCCAL Q1H PRN PRN Reason: Nicotine Cravings Last Admin: 06/04/24 09:09 Dose: 2 mg Documented By: GENO Nitroglycerin (Nitroglycerin 0.4 Mg Tab.Subl) 0.4 mg SUBLINGUAL Q5M PRN PRN Reason: Chest Pain Omeprazole (Omeprazole 20 Mg Capsule.Dr) 20 mg PO DAILY@0630 [facility] Last Admin: 06/04/24 05:33 Dose: 20 mg Documented By: YENI Ondansetron HCl (Ondansetron Hcl 4 Mg/2 Ml Vial) 4 mg IVPUSH Q8H PRN PRN Reason: Nausea and Vomiting Oxycodone HCl (Oxycodone Hcl Immed Release 5 Mg Tablet) 5 mg PO Q6H PRN PRN Reason: Pain, Moderate(Pain Scale 4-6) Last Admin: 06/04/24 11:42 Dose: 5 mg Documented By: RICKY Quetiapine Fumarate (Quetiapine Fumarate 200 Mg Tablet) 200 mg PO BEDTIME [facility] Last Admin: 06/03/24 19:58 Dose: 200 mg Documented By: YENI Senna (Sennosides 8.6 Mg Tablet) 17.2 mg PO BEDTIME PRN PRN Reason: constipation Last Admin: 06/04/24 09:10 Dose: 17.2 mg Documented By: GENO Comments: per pt request Sodium Chloride (0.9 % Sodium Chloride Flush 3 Ml Syringe) 3 ml IVFLUSH QSHIFT [facility] Last Admin: 06/04/24 08:31 Dose: 3 ml Documented By: RICKY Tamsulosin HCl (Tamsulosin Hcl 0.4 Mg Capsule) 0.4 mg PO BEDTIME [facility] Last Admin: 06/03/24 21:12 Dose: Not Given Documented By: YENI Non-Admin Reason: Patient Refused Vitamin D (Cholecalciferol (Vitamin D3) 25 Mcg Tablet) 50 mcg PO DAILY [facility] Last Admin: 06/04/24 08:33 Dose: 50 mcg Documented By: RICKY Labs 06/02/24 05:36 06/04/24 08:15 Labs: Laboratory Results - last 24 hr 06/03/24 06/03/24 06/04/24 16:43 19:56 07:16 Hold Purple Top Anion Gap Estim Creat Clear Calc Estimated GFR POC Glucose 108 119 H 101 Random Glucose Calcium 06/04/24 06/04/24 08:15 10:59 Hold Purple Top SEE NOTE Anion Gap 15 Estim Creat Clear Calc 20.2 Estimated GFR 16 POC Glucose 138 H Random Glucose 112 Calcium 9.0 D Assessment and Plan (1) Metabolic acidosis: Status: Acute (2) Hyperkalemia: Status: Acute (3) Acute kidney injury superimposed on CKD: Status: Acute Plan 68-year-old male with a PMH significant for HTN, HLD, CAD s/p stenting around 2016 and 2017, [id number] type 2 diabetes, CKD [address] Hui, and chronic lower back pain who presents to the ED for evaluation of worsening lower back pain radiating to left leg. Pt will be admitted to the hospital for treatment and further evaluation of ESTELA on CKD likely prerenal. ESTELA on CKD3 with BICARB 13 ( mulifactorial -using nsaid's ,lisiniopril,dec po intake baseline cr seems 2.6-2.8 CT of abdomen/pelvis negative, UA showing proteinuria and protein/creatinine ratio elevated at 8.95 Plan: cr improving from 4.23 -3.8 encouraged for po intake and hydration 300 ml free water moniter bmp closely nephro followup noted . Hyperkalemia: imrpoved with loklema. Elevated troponins: Initial troponin 93.9 with repeat 104.7, baseline unknown Patient asymptomatic, EKG without ischemic changes Monitor on telemetry Elevated BNP BNP 474,-rechecked 315 Patient with no known CHF history seems euvolemic. HTN:Hold lisinopril due to estela continue amlodipine 10 mg qd,added hydralazine 25 mg po tid. as per nephro note''he is no longer on any ryder blocking agents given his severe life-threatening bradycardia . off coreg. CAD/HLD:Continue aspirin, statin [id number] type 2 diabetes Continue home meds Sliding-scale insulin, diabetic diet back pain ; seems improving continue pain meds,flexril ? urinary retention continue flomax moniter pvr , staright cath >350 ml retention Full Code DVT Prophylaxis: Heparin ongoing need for hospitalization -treatment of?ESTELA on CKD and hyperkalemia - need close monitoring of electrolytes and kidney function, and specialist consultation with Nephrology. Quality Stroke Does the patient have a stroke diagnosis?: No VTE Prior VTE?: No VTE Risk Level:: Medical - moderate - high VTE Device Contraindication: Treatment Not Indicated VTE Drug Contraindication: N/A - Med Ordered
[2024-06-04 15:51] VITALS: BP 145/66; PULSE 79; RESP 18; TEMP 37; O2SAT 98
[2024-06-04 16:21] LABS: Glucose, Whole Blood 104 mg/dL (60-115)
[2024-06-04] MEDS: polyethylene glycoL 3350 17 GM POWD.PACK PO (16:49)
[2024-06-04] MEDS: Acetaminophen 325 MG TABLET 650 MG PO (16:50)
[2024-06-04 19:38] VITALS: BP 164/81; PULSE 75; RESP 18; TEMP 36.3; O2SAT 97
[2024-06-04] MEDS: Milk of Magnesia 30 ML ORAL.SUSP PO (19:44)
[2024-06-04 19:49] LABS: Glucose, Whole Blood 142 mg/dL (60-115)
[2024-06-04] MEDS: QUEtiapine Fumarate 200 MG TABLET PO (20:34)
[2024-06-04] MEDS: Latanoprost 0.005 % Ophth Sol 2.5 ML DROPS 1 DROP EYE-BOTH (20:34)
[2024-06-04] MEDS: Atorvastatin Calcium 80 MG TABLET PO (20:34)
[2024-06-04] MEDS: Tamsulosin HCL 0.4 MG CAPSULE 0.8 MG PO (20:34)
[2024-06-04] MEDS: Morphine Sulfate 4 MG/ML CARTRIDGE 2 MG IVPUSH (23:08)
[2024-06-04 23:13] VITALS: BP 156/70; PULSE 73; RESP 18; TEMP 36.7; O2SAT 97
[2024-06-05] MEDS: oxyCODONE HCl Immed Release 5 MG TABLET PO ×3 (06:16→18:41)
[2024-06-05] MEDS: Nicotine Polacrilex 2 MG GUM BUCCAL ×4 (06:56→22:28)
[2024-06-05 07:26] VITALS: BP 135/63; PULSE 82; RESP 18; TEMP 36.7; O2SAT 96
[2024-06-05 07:46] LABS: Glucose, Whole Blood 126 mg/dL (60-115)
[2024-06-05] MEDS: Cholecalciferol (Vitamin D3) 25 MCG TABLET 50 MCG PO (07:47)
[2024-06-05] MEDS: Cyclobenzaprine HCl 5 MG TABLET 2.5 MG PO (07:48)
[2024-06-05] MEDS: amLODIPine Besylate 10 MG TABLET PO (07:48)
[2024-06-05] MEDS: Aspirin Enteric Coated 81 MG TABLET.DR PO (07:48)
[2024-06-05] MEDS: hydrALAZINE HCl 25 MG TABLET PO ×3 (07:48→22:27)
[2024-06-05] MEDS: Folic Acid 1 MG TABLET PO (07:49)
[2024-06-05] MEDS: lamoTRIgine 100 MG TABLET PO ×2 (07:49→22:28)
[2024-06-05] MEDS: Multivitamin TABLET 1 TAB PO (07:49)
[2024-06-05] MEDS: LORazepam 1 MG TABLET PO ×3 (07:49→22:29)
[2024-06-05] MEDS: 0.9 % Sodium Chloride Flush 3 ML SYRINGE IVFLUSH ×3 (07:51→22:30)
[2024-06-05 08:45] LABS: Anion Gap 15 (12-20); Blood Urea Nitrogen 63 mg/dL (9-16); Calcium 8.7 mg/dL (8.4-10.2); Carbon Dioxide 22 mmol/L (22-29); Chloride 105 mmol/L (96-108); Glucose Random 132 mg/dL (60-115); Potassium 4.7 mmol/L (3.3-5.1); Sodium 137 mmol/L (135-145)
[2024-06-05 09:08] LABS: Estimated Glomerular Filt Rate 14
[2024-06-05 11:04] LABS: Glucose, Whole Blood 158 mg/dL (60-115)
[2024-06-05] MEDS: Heparin Sodium,Porcine 5,000 UNIT/ML VIAL 5000 UNIT SUBCUT ×2 (11:05→22:29)
[2024-06-05] MEDS: Cyclobenzaprine HCl 5 MG TABLET PO ×3 (11:05→22:29)
[2024-06-05] MEDS: Insulin Lispro 100 UNIT/ML 3 ML VIAL SUBCUT ×2 (11:05→22:45)
--- NOTE | 2024-06-05 12:11 | HO.PM.IMPN ---
Subjective Subjective Date of Service: 06/05/24 Interval History: estela ?urinary retention Review of Systems denies any chest pain or sob or abd pain Physical Exam Vital Signs: Vital Signs: Last Vital Signs Temp 98.0 F 06/05/24 07:26 Pulse 82 06/05/24 07:26 Resp 18 06/05/24 07:26 BP 135/63 06/05/24 07:26 Pulse Ox 96 06/05/24 07:26 O2 Del Method Room Air 06/05/24 07:26 BMI result Body Mass Index 28.8 Appearance: Alert.? Oriented X3.? cvs: rrr, [id number] . res: clear to auscultation ,no rhonchii or wheezing abd: no rebound or guarding ,nt, bs present. ext pulses present , no cyanosis . Ms:back pain seems improving , able to sit . neuro: axo3 , nonfocal. Objective Data Active Medications Acetaminophen (Acetaminophen 325 Mg Tablet) 650 mg PO Q6H PRN PRN Reason: Pain, Mild (Pain Scale 1-3), fever or headache Last Admin: 06/04/24 16:50 Dose: 650 mg Documented By: RICKY Amlodipine Besylate (Amlodipine Besylate 10 Mg Tablet) 10 mg PO DAILY [facility]; Protocol Last Admin: 06/05/24 07:48 Dose: 10 mg Documented By: ZENAIDA Aspirin (Aspirin Enteric Coated 81 Mg Tablet.Dr) 81 mg PO DAILY [facility] Last Admin: 06/05/24 07:48 Dose: 81 mg Documented By: ZENAIDA Atorvastatin Calcium (Atorvastatin Calcium 80 Mg Tablet) 80 mg PO BEDTIME [facility] Last Admin: 06/04/24 20:34 Dose: 80 mg Documented By: YENI Calcium Carbonate (Calcium Carbonate 750 Mg Tab.Chew) 750 mg PO Q4H PRN PRN Reason: Heartburn Cyclobenzaprine HCl (Cyclobenzaprine Hcl 5 Mg Tablet) 5 mg PO TID [facility] Last Admin: 06/05/24 11:05 Dose: 5 mg Documented By: ZENAIDA Docusate Sodium (Docusate Sodium 100 Mg Capsule) 100 mg PO BID PRN PRN Reason: constipation Last Admin: 06/04/24 09:09 Dose: 100 mg Documented By: GENO Folic Acid (Folic Acid 1 Mg Tablet) 1 mg PO DAILY [facility] Last Admin: 06/05/24 07:49 Dose: 1 mg Documented By: ZENAIDA Glucose (Glucose Gel 15 Gm Gel..Gram.) 15 gm PO Q15M PRN; Protocol PRN Reason: per Hypoglycemia Standing Ord. Heparin Sodium (Porcine) (Heparin Sodium,Porcine 5,000 Unit/Ml Vial) 5,000 unit SUBCUT Q12H [facility] Last Admin: 06/05/24 11:05 Dose: 5,000 unit Documented By: ZENAIDA Hydralazine HCl (Hydralazine Hcl 25 Mg Tablet) 25 mg PO TID [facility]; Protocol Last Admin: 06/05/24 07:48 Dose: 25 mg Documented By: ZENAIDA Dextrose (D10) 250 mls @ 750 mls/hr IV Q15M PRN; Protocol PRN Reason: per Hypoglycemia Standing Ord. Insulin Human Lispro (Insulin Lispro 100 Unit/Ml 3 Ml Vial) 0 unit SUBCUT QIDACHS [facility]; Protocol Last Admin: 06/05/24 11:05 Dose: 2 unit Documented By: ZENAIDA Lamotrigine (Lamotrigine 100 Mg Tablet) 100 mg PO BID [facility] Last Admin: 06/05/24 07:49 Dose: 100 mg Documented By: ZENAIDA Latanoprost (Latanoprost 0.005 % Ophth Saima 2.5 Ml Drops) 1 drop EYE-BOTH BEDTIME [facility] Last Admin: 06/04/24 20:34 Dose: 1 drop Documented By: YENI Lorazepam (Lorazepam 1 Mg Tablet) 1 mg PO TID PRN PRN Reason: Anxiety Last Admin: 06/05/24 07:49 Dose: 1 mg Documented By: ZENAIDA Magnesium Hydroxide (Milk Of Magnesia 30 Ml Oral.Susp) 30 ml PO DAILY PRN PRN Reason: Constipation Last Admin: 06/04/24 19:44 Dose: 30 ml Documented By: YENI Melatonin (Melatonin 3 Mg Tablet) 6 mg PO BEDTIME PRN PRN Reason: Insomnia Morphine Sulfate (Morphine Sulfate 4 Mg/Ml Cartridge) 2 mg IVPUSH Q4H PRN; Protocol PRN Reason: Pain, Severe (Pain Scale 7-10) Last Admin: 06/04/24 23:08 Dose: 2 mg Documented By: YENI Multivitamins/Vitamin C (Multivitamin Tablet) 1 tab PO DAILY [facility] Last Admin: 06/05/24 07:49 Dose: 1 tab Documented By: ZENAIDA Nicotine (Nicotine 14 Mg Patch.Td24) 14 mg TRANSDERMA DAILY [facility] Last Admin: 06/05/24 07:49 Dose: Not Given Documented By: ZENAIDA Non-Admin Reason: Patient Refused Nicotine Polacrilex (Nicotine Polacrilex 2 Mg Gum) 2 mg BUCCAL Q1H PRN PRN Reason: Nicotine Cravings Last Admin: 06/05/24 06:56 Dose: 2 mg Documented By: YENI Nitroglycerin (Nitroglycerin 0.4 Mg Tab.Subl) 0.4 mg SUBLINGUAL Q5M PRN PRN Reason: Chest Pain Omeprazole (Omeprazole 20 Mg Capsule.Dr) 20 mg PO DAILY@0630 [facility] Last Admin: 06/05/24 06:12 Dose: Not Given Documented By: YENI Non-Admin Reason: Patient Refused Ondansetron HCl (Ondansetron Hcl 4 Mg/2 Ml Vial) 4 mg IVPUSH Q8H PRN PRN Reason: Nausea and Vomiting Oxycodone HCl (Oxycodone Hcl Immed Release 5 Mg Tablet) 5 mg PO Q6H PRN PRN Reason: Pain, Moderate(Pain Scale 4-6) Last Admin: 06/05/24 06:16 Dose: 5 mg Documented By: YENI Quetiapine Fumarate (Quetiapine Fumarate 200 Mg Tablet) 200 mg PO BEDTIME [facility] Last Admin: 06/04/24 20:34 Dose: 200 mg Documented By: YENI Sodium Chloride (0.9 % Sodium Chloride Flush 3 Ml Syringe) 3 ml IVFLUSH [facility] Last Admin: 06/05/24 07:51 Dose: 3 ml Documented By: ZENAIDA Tamsulosin HCl (Tamsulosin Hcl 0.4 Mg Capsule) 0.8 mg PO BEDTIME [facility] Last Admin: 06/04/24 20:34 Dose: 0.8 mg Documented By: YENI Vitamin D (Cholecalciferol (Vitamin D3) 25 Mcg Tablet) 50 mcg PO DAILY [facility] Last Admin: 06/05/24 07:47 Dose: 50 mcg Documented By: ZENAIDA Labs 06/02/24 05:36 06/05/24 08:12 Labs: Laboratory Results - last 24 hr 06/04/24 06/04/24 06/05/24 16:17 19:43 07:25 Hold Purple Top Anion Gap Estim Creat Clear Calc Estimated GFR POC Glucose 104 142 H 126 H Random Glucose Calcium 06/05/24 06/05/24 08:12 11:00 Hold Purple Top SEE NOTE Anion Gap 15 Estim Creat Clear Calc 18.0 Estimated GFR 14 POC Glucose 158 H Random Glucose 132 H Calcium 8.7 Assessment and Plan (1) Metabolic acidosis: Status: Acute (2) Hyperkalemia: Status: Acute (3) Acute kidney injury superimposed on CKD: Status: Acute Plan 68-year-old male with a PMH significant for HTN, HLD, CAD s/p stenting around 2016 and 2017, [id number] type 2 diabetes, CKD [address] Hui, and chronic lower back pain who presents to the ED for evaluation of worsening lower back pain radiating to left leg. Pt will be admitted to the hospital for treatment and further evaluation of ESTELA on CKD likely prerenal. ESTELA on CKD3 with BICARB 13 ( mulifactorial -using nsaid's ,lisiniopril,dec po intake baseline cr seems 2.6-2.8 CT of abdomen/pelvis negative, UA showing proteinuria and protein/creatinine ratio elevated at 8.95 Plan: cr back to 4.3 (multifactroial nsaid use /dehydration,? urinary retention) encouraged for po intake and hydration 300 ml free water,moniter bmp closely will check bmp again Hyperkalemia: imrpoved with loklema. Elevated troponins: Initial troponin 93.9 with repeat 104.7, baseline unknown Patient asymptomatic, EKG without ischemic changes Monitor on telemetry Elevated BNP BNP 474,-rechecked 315 Patient with no known CHF history seems euvolemic. HTN:Hold lisinopril due to estela continue amlodipine 10 mg qd,added hydralazine 25 mg po tid. as per nephro note''he is no longer on any ryder blocking agents given his severe life-threatening bradycardia . off coreg. CAD/HLD:Continue aspirin, statin [id number] type 2 diabetes Continue home meds Sliding-scale insulin, diabetic diet back pain ; seems improving continue pain meds,flexril ? urinary retention continue flomax moniter pvr , staright cath >350 ml retention Full Code DVT Prophylaxis: Heparin ongoing need for hospitalization -treatment of?ESTELA on CKD and hyperkalemia -need close monitoring of electrolytes and kidney function, and specialist consultation with Nephrology. Quality Stroke Does the patient have a stroke diagnosis?: No VTE Prior VTE?: No VTE Risk Level:: Medical - moderate - high VTE Device Contraindication: Treatment Not Indicated VTE Drug Contraindication: N/A - Med Ordered
[2024-06-05 13:32] LABS: Anion Gap 16 (12-20); Blood Urea Nitrogen 61 mg/dL (9-16); Calcium 8.6 mg/dL (8.4-10.2); Carbon Dioxide 23 mmol/L (22-29); Chloride 105 mmol/L (96-108); Creatinine Clr Calc Pharmacy 17.5; Estimated Glomerular Filt Rate 13; Glucose Random 174 mg/dL (60-115); Potassium 4.5 mmol/L (3.3-5.1); Sodium 139 mmol/L (135-145)
[2024-06-05] MEDS: 0.9 % Sodium Chloride 1,000 ML 80 ML IVCONT (15:04)
[2024-06-05 16:00] VITALS: BP 155/66; PULSE 92; RESP 18; TEMP 36.9; O2SAT 96
--- NOTE | 2024-06-05 16:08 | P.PNNP_ITS ---
Subjective Subjective Date of Service: 06/06/24 Interval history: estela ?urinary retention Physical Exam 2 Vital Signs: Vital Signs: Last Vital Signs Temp 98.0 F 06/05/24 07:26 Pulse 82 06/05/24 07:26 Resp 18 06/05/24 07:26 BP 135/63 06/05/24 07:26 Pulse Ox 96 06/05/24 07:26 O2 Del Method Room Air 06/05/24 07:26 BMI result Body Mass Index 28.8 cvs: s1s2 Rs; cta Abd; soft Objective Data Labs 06/02/24 05:36 06/05/24 12:56 Labs: Laboratory Results - last 24 hr 06/04/24 06/04/24 06/05/24 16:17 19:43 07:25 Hold Purple Top Sodium Potassium Chloride Carbon Dioxide Anion Gap BUN Creatinine Estim Creat Clear Calc Estimated GFR POC Glucose 104 142 H 126 H Random Glucose Calcium 06/05/24 06/05/24 06/05/24 08:12 11:00 12:56 Hold Purple Top SEE NOTE Sodium 137 139 Potassium 4.7 4.5 Chloride 105 105 Carbon Dioxide 22 23 Anion Gap 15 16 BUN 63 H 61 H Creatinine 4.30 H* 4.43 H* Estim Creat Clear Calc 18.0 17.5 Estimated GFR 14 13 POC Glucose 158 H Random Glucose 132 H 174 H Calcium 8.7 8.6 Procedures Date of Service Date of Service: 06/06/24 Assessment & Plan Assessment and plan (1) Acute kidney injury superimposed on CKD: Status: Acute Plan 1. 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 Essential hypertension - Hold Acei - cont amlodipine - he is no longer on any ryder blocking agents given his severe life- threatening bradycardia . 3. Prior history of hepatitis C -In remission status post treatment in 2016 -Follows with Dr. Augustin from gastroenterology for chronic screening Time Spent With Patient Time: Total time managing care of this patient today ____ minutes. Progress Note: Quality Stroke Does the patient have a stroke diagnosis?: No
[2024-06-05 16:23] LABS: Glucose, Whole Blood 119 mg/dL (60-115)
[2024-06-05 20:21] LABS: Glucose, Whole Blood 157 mg/dL (60-115)
[2024-06-05 22:27] VITALS: BP 148/56
[2024-06-05] MEDS: Tamsulosin HCL 0.4 MG CAPSULE 0.8 MG PO (22:27)
[2024-06-05] MEDS: QUEtiapine Fumarate 200 MG TABLET PO (22:28)
[2024-06-05] MEDS: Atorvastatin Calcium 80 MG TABLET PO (22:28)
[2024-06-05] MEDS: Latanoprost 0.005 % Ophth Sol 2.5 ML DROPS 1 DROP EYE-BOTH (22:30)
[2024-06-05] MEDS: Morphine Sulfate 4 MG/ML CARTRIDGE 2 MG IVPUSH (22:31)
[2024-06-06] MEDS: 0.9 % Sodium Chloride 1,000 ML 80 ML IVCONT ×2 (05:31→20:51)
[2024-06-06] MEDS: LORazepam 1 MG TABLET PO ×3 (05:35→20:51)
[2024-06-06 06:55] VITALS: BP 136/62; PULSE 74; RESP 16; TEMP 36.5; O2SAT 94
--- NOTE | 2024-06-06 07:00 | CA_ITS ---
Transthoracic Echocardiogram Patient (Last, First, Middle): Osmin Moreira, Gender: Male Date of : 1955 Age: 68 Procedure Date: 06/06/2024 Procedure Type: Transthoracic Echocardiogram Location: [facility] Height: 175.26 cm Weight: 88.45 kg BSA: 2.04 m2 Heart Rate: bpm BP: 136 / 62 mmHg Circulating Process Inspector: MELISSA Referring MD: Hemanth Parikh MD Symptoms: elevated trops and bnp Study Quality: Technically Difficult, contrast Conclusions: - Normal left ventricular cavity size. There is normal left ventricular wall thickness. The left ventricular systolic function is low normal. The visually estimated ejection fraction is between 50-55%. - Elevated filling pressures. - The inferolateral wall is akinetic. - Normal right ventricular cavity size and systolic function. - Mildly elevated right atrial pressure. Findings Procedure Information Contrast agent, definity, is being given per protocol without apparent complications. The study quality is limited by patients body habitus. Left Ventricle Normal left ventricular cavity size. There is normal left ventricular wall thickness. The left ventricular systolic function is low normal. The visually estimated ejection fraction is between 50-55%. There is evidence of regional wall motion abnormalities. Abnormal diastolic function is noted. Spectral Doppler is indicative of a pseudonormal filling pattern. Elevated filling pressures. Wall Motion Rest Echo Findings The inferolateral wall is akinetic. Right Ventricle Normal right ventricular cavity size and systolic function. Atria The left atrium is moderately dilated. Aortic Valve There is a normal trileaflet aortic valve. There is mild calcification of the aortic valve. There is no aortic valve stenosis. There is no aortic valve regurgitation. Mitral Valve The mitral valve appears normal. There is trace mitral valve regurgitation. There is no mitral valve stenosis. Pulmonic Valve The pulmonic valve is normal. There is no pulmonic valve regurgitation. Tricuspid Valve Normal tricuspid valve structure. Tricuspid regurgitation envelope is inadequate for calculation of right ventricular systolic pressure. Mildly elevated right atrial pressure. Great Vessels All visible segments of the aorta are normal in size. The visualized portions of the pulmonary artery and branches are normal. Venous The inferior vena cava is dilated and collapses greater than 50% with inspiration. Pericardium/Pleural There is no evidence of pericardial effusion. Prior Study Comparison No prior study available for comparison. Measurements 2D Linear Measurements IVSd: 0.86 0.6-0.9/0.6-1.0 cm LVIDd: 4.91 3.9-5.3/4.2-5.9 cm LVIDd Index: 2.41 2.4-3.2/2.2-3.1 cm/m2 LVIDs: 3.88 2.0-3.6 cm LVPWd: 0.90 0.7-1.1 cm LA Diam: 4.20 2.7-3.8/3.0-4.0 cm LAIDs Index: 2.06 1.5-2.3 cm/m2 LV Mass: 185.64 67-162/88-224 g LV Mass Index: 91.00 43-95/49-115 g/m2 LVOT Diam: 2.00 3.0+(-)1.3 cm 2D Systolic Function EF 4C: 40.30 >55% EF 2C: 60.10 >55% EF BiP: 51.30 >55% Mitral Valve MV Pk E: 1.14 MV PK A: 0.77 MV Decel Time: 213.00 E/A: 1.50 E'Lateral: 8.92 E'Medial: 5.87 E/E' Med: 19.40 E/E' Lat: 12.80 PHT: 62.00 MVA PHT: 3.55 Decel [place]: 5.37 Aortic Valve AoV Pk Walker: 1.55 AoV Mn Walker: 1.07 AoV VTI: 0.33 AoV Pk Grad: 10.00 Aov Mn Grad: 5.00 LIDIA Cont.VTI: 2.54 LVOT LVOT Pk Walker: 1.37 LVOT Mn Walker: 0.85 LVOT VTI: 0.27 LVOT Pk Grad: 8.00 LVOT Mn Grad: 3.00 LVOT Diam: 2.00 LVOT Area: 3.14 Diastolic Function MV Pk E: 1.14 MV Pk A: 0.77 E/A: 1.50 E'Medial: 5.87 E/E' Med: 19.40 E' Laterial: 8.92 E/E' Lat: 12.80 Right Ventricle TAPSE (mm): 25.90 TVS' Walker: 16.00 Tricuspid Valve RA Press: 8.00 Great Vessels Aorta Sinus of Valsalva: 3.20 2.0-3.5 cm Ao Asc: 3.00 2.1-3.4 cm Pulmonary Valve PV Pk Walker: 1.21 Peak PV Grad: 6.00 Updated in Other Vendor System with Status of Final Judson Pederson MD electronically signed on 06/06/2024 12:09:13 PM with status of Final
[2024-06-06 07:12] LABS: Glucose, Whole Blood 111 mg/dL (60-115)
[2024-06-06] MEDS: Cholecalciferol (Vitamin D3) 25 MCG TABLET 50 MCG PO (07:45)
[2024-06-06] MEDS: amLODIPine Besylate 10 MG TABLET PO (07:46)
[2024-06-06] MEDS: Multivitamin TABLET 1 TAB PO (07:46)
[2024-06-06] MEDS: hydrALAZINE HCl 25 MG TABLET PO ×3 (07:46→20:50)
[2024-06-06] MEDS: Aspirin Enteric Coated 81 MG TABLET.DR PO (07:46)
[2024-06-06] MEDS: Folic Acid 1 MG TABLET PO (07:46)
[2024-06-06] MEDS: lamoTRIgine 100 MG TABLET PO ×2 (07:47→22:29)
[2024-06-06] MEDS: Cyclobenzaprine HCl 5 MG TABLET PO ×3 (07:47→22:29)
[2024-06-06] MEDS: oxyCODONE HCl Immed Release 5 MG TABLET PO ×3 (07:47→20:50)
[2024-06-06 08:33] LABS: Anion Gap 12 (12-20); Blood Urea Nitrogen 57 mg/dL (9-16); Calcium 8.5 mg/dL (8.4-10.2); Carbon Dioxide 23 mmol/L (22-29); Chloride 111 mmol/L (96-108); Creatinine Clr Calc Pharmacy 18.8; Estimated Glomerular Filt Rate 14; Glucose Random 108 mg/dL (60-115); Potassium 5.1 mmol/L (3.3-5.1); Sodium 141 mmol/L (135-145)
--- NOTE | 2024-06-06 08:35 | PM.PNNEP ---
Subjective Subjective Date of Service: 06/06/24 Interval history: 68 y/o male with a medical history of CKD (sees Dr Hui, per ED baseline creatinine 2.3-2.8), DMII (pt reports controlled), CAD s/p stent placement. Pt denies other known medical history, denies known hx of heart failure or other cardiac problems. 06/01 presented with chronic left lower back pain radiating down left leg that has been steadily worsening per pt. reportedly was taking 800mg ibuprofen every 8 hours for a few days prior to admission. Also on lisinopril, dose unknown. Nephrology consulted for ESTELA on CKD. reported baseline in 2's, though no records on file urine protein/creatinine ratio 8.95 no blood or WBCs in urine 06/01 creatniine 4.23, has been between 3.85 and 4.43 since admission 06/[address] abd/pelvis 06/01 showed unremarkable kidneys and ureters without hydronephrosis, hydroureter or calculi seen. reports today outside of his chronic back pain he is feeling well. Denies chest pain, shortness of breath, dizziness, abdominal pain, flank pain, urinary pain/difficulty emptying bladder. Physical Exam Vital Signs: Vital Signs: Last Vital Signs Temp 97.7 F 06/06/24 06:55 Pulse 74 06/06/24 06:55 Resp 16 06/06/24 06:55 BP 136/62 06/06/24 06:55 Pulse Ox 94 06/06/24 06:55 O2 Del Method Room Air 06/06/24 06:55 BMI result Body Mass Index 28.8 Const: General: no acute distress, alert and awake Neck: Neck: Yes no JVD Resp: Effort & Inspection: normal respiratory effort and able to speak in complete sentences Auscultation: clear to auscultation bilaterally Cardio: Jugular venous distension: no JVD Rate: regular rate Rhythm: regular rhythm Heart sounds: S1 normal heart sound present and S2 normal heart sound present GI: Palpation (GI): Soft to palpation and nontender : General: Yes no CVA tenderness Back/Spine/Pelvis: Back: no CVA tenderness Skin: Lesions: no lesions Rashes: no rashes Extrem: General: No edema Objective Data Labs 06/02/24 05:36 06/06/24 07:30 Labs: Laboratory Results - last 24 hr 06/05/24 06/05/24 06/05/24 11:00 12:56 16:18 Sodium 139 Potassium 4.5 Chloride 105 Carbon Dioxide 23 Anion Gap 16 BUN 61 H Creatinine 4.43 H* Estim Creat Clear Calc 17.5 Estimated GFR 13 POC Glucose 158 H 119 H Random Glucose 174 H Calcium 8.6 06/05/24 06/06/24 06/06/24 20:08 07:08 07:30 Sodium 141 Potassium 5.1 Chloride 111 H Carbon Dioxide 23 Anion Gap 12 BUN 57 H Creatinine 4.13 H* Estim Creat Clear Calc 18.8 Estimated GFR 14 POC Glucose 157 H 111 Random Glucose 108 Calcium 8.5 Procedures Date of Service Date of Service: 06/06/24 Assessment & Plan Assessment and plan (1) Acute kidney injury superimposed on CKD: Status: Acute (2) Hyperkalemia: Status: Acute (3) Metabolic acidosis: Status: Acute Plan ESTELA on CKD, has fibrillary glomerulonephritis most likely secondary to use of high dose NSAID over last several days in conjunction with JESUSITA inhibitor will check [facility] labs to compare and confirm patient's baseline given lack of improvement in creatinine without any clear etiology- would expect creatinine to be trending down with discontinuation of NSAIDs recommend continue PRN lokelma for hyperkalemia may continue IVF Avoid nephrotoxins, regular blood pressure checks strict I&O monitoring No absolute indications for dialysis at this time will continue to follow Discussed with Dr Orosco Time Spent With Patient Time: Total time managing care of this patient today ____ minutes. Progress Note: Quality Stroke Does the patient have a stroke diagnosis?: No
[2024-06-06 11:17] VITALS: RESP 16
[2024-06-06] MEDS: Heparin Sodium,Porcine 5,000 UNIT/ML VIAL 5000 UNIT SUBCUT ×2 (11:17→21:01)
[2024-06-06] MEDS: Morphine Sulfate 4 MG/ML CARTRIDGE 2 MG IVPUSH ×2 (11:17→17:44)
--- NOTE | 2024-06-06 11:20 | P.PNIM_ITS ---
Subjective Subjective Date of Service: 06/06/24 Interval History: estela htn elevated trops /bnp Review of Systems producing urine cr simialr Physical Exam 2 Vital Signs: Vital Signs: Last Vital Signs Temp 97.7 F 06/06/24 06:55 Pulse 74 06/06/24 06:55 Resp 16 06/06/24 11:17 BP 136/62 06/06/24 06:55 Pulse Ox 94 06/06/24 06:55 O2 Del Method Room Air 06/06/24 06:55 BMI result Body Mass Index 28.8 Objective Data Active Medications Acetaminophen (Acetaminophen 325 Mg Tablet) 650 mg PO Q6H PRN PRN Reason: Pain, Mild (Pain Scale 1-3), fever or headache Last Admin: 06/04/24 16:50 Dose: 650 mg Documented By: RICKY Amlodipine Besylate (Amlodipine Besylate 10 Mg Tablet) 10 mg PO DAILY [facility]; Protocol Last Admin: 06/06/24 07:46 Dose: 10 mg Documented By: REILLY Aspirin (Aspirin Enteric Coated 81 Mg Tablet.Dr) 81 mg PO DAILY [facility] Last Admin: 06/06/24 07:46 Dose: 81 mg Documented By: REILLY Atorvastatin Calcium (Atorvastatin Calcium 80 Mg Tablet) 80 mg PO BEDTIME [facility] Last Admin: 06/05/24 22:28 Dose: 80 mg Documented By: PAVEL Calcium Carbonate (Calcium Carbonate 750 Mg Tab.Chew) 750 mg PO Q4H PRN PRN Reason: Heartburn Cyclobenzaprine HCl (Cyclobenzaprine Hcl 5 Mg Tablet) 5 mg PO TID [facility] Last Admin: 06/06/24 07:47 Dose: 5 mg Documented By: REILLY Docusate Sodium (Docusate Sodium 100 Mg Capsule) 100 mg PO BID PRN PRN Reason: constipation Last Admin: 06/04/24 09:09 Dose: 100 mg Documented By: GENO Folic Acid (Folic Acid 1 Mg Tablet) 1 mg PO DAILY [facility] Last Admin: 06/06/24 07:46 Dose: 1 mg Documented By: REILLY Glucose (Glucose Gel 15 Gm Gel..Gram.) 15 gm PO Q15M PRN; Protocol PRN Reason: per Hypoglycemia Standing Ord. Heparin Sodium (Porcine) (Heparin Sodium,Porcine 5,000 Unit/Ml Vial) 5,000 unit SUBCUT Q12H [facility] Last Admin: 06/06/24 11:17 Dose: 5,000 unit Documented By: REILLY Hydralazine HCl (Hydralazine Hcl 25 Mg Tablet) 25 mg PO TID [facility]; Protocol Last Admin: 06/06/24 07:46 Dose: 25 mg Documented By: REILLY Dextrose (D10) 250 mls @ 750 mls/hr IV Q15M PRN; Protocol PRN Reason: per Hypoglycemia Standing Ord. Sodium Chloride (Ns) 1,000 mls @ 80 mls/hr IVCONT .[id number] [facility] Last Admin: 06/06/24 05:31 Dose: 80 mls/hr Documented By: CARLOS Insulin Human Lispro (Insulin Lispro 100 Unit/Ml 3 Ml Vial) 0 unit SUBCUT QIDACHS [facility]; Protocol Last Admin: 06/06/24 11:20 Dose: Not Given Documented By: REILLY Non-Admin Reason: No Insulin Coverage Lamotrigine (Lamotrigine 100 Mg Tablet) 100 mg PO BID [facility] Last Admin: 06/06/24 07:47 Dose: 100 mg Documented By: REILLY Latanoprost (Latanoprost 0.005 % Ophth Saima 2.5 Ml Drops) 1 drop EYE-BOTH BEDTIME [facility] Last Admin: 06/05/24 22:30 Dose: 1 drop Documented By: PAVEL Lorazepam (Lorazepam 1 Mg Tablet) 1 mg PO TID PRN PRN Reason: Anxiety Last Admin: 06/06/24 05:35 Dose: 1 mg Documented By: CARLOS Magnesium Hydroxide (Milk Of Magnesia 30 Ml Oral.Susp) 30 ml PO DAILY PRN PRN Reason: Constipation Last Admin: 06/04/24 19:44 Dose: 30 ml Documented By: YENI Melatonin (Melatonin 3 Mg Tablet) 6 mg PO BEDTIME PRN PRN Reason: Insomnia Morphine Sulfate (Morphine Sulfate 4 Mg/Ml Cartridge) 2 mg IVPUSH Q4H PRN; Protocol PRN Reason: Pain, Severe (Pain Scale 7-10) Last Admin: 06/06/24 11:17 Dose: 2 mg Documented By: REILLY Multivitamins/Vitamin C (Multivitamin Tablet) 1 tab PO DAILY [facility] Last Admin: 06/06/24 07:46 Dose: 1 tab Documented By: REILLY Nicotine (Nicotine 14 Mg Patch.Td24) 14 mg TRANSDERMA DAILY [facility] Last Admin: 06/06/24 09:54 Dose: Not Given Documented By: REILLY Non-Admin Reason: Patient Refused Nicotine Polacrilex (Nicotine Polacrilex 2 Mg Gum) 2 mg BUCCAL Q1H PRN PRN Reason: Nicotine Cravings Last Admin: 06/05/24 22:28 Dose: 2 mg Documented By: PAVEL Nitroglycerin (Nitroglycerin 0.4 Mg Tab.Subl) 0.4 mg SUBLINGUAL Q5M PRN PRN Reason: Chest Pain Omeprazole (Omeprazole 20 Mg Capsule.Dr) 20 mg PO DAILY@0630 [facility] Last Admin: 06/06/24 05:57 Dose: Not Given Documented By: CARLOS Non-Admin Reason: Patient Refused Ondansetron HCl (Ondansetron Hcl 4 Mg/2 Ml Vial) 4 mg IVPUSH Q8H PRN PRN Reason: Nausea and Vomiting Oxycodone HCl (Oxycodone Hcl Immed Release 5 Mg Tablet) 5 mg PO Q6H PRN PRN Reason: Pain, Moderate(Pain Scale 4-6) Last Admin: 06/06/24 07:47 Dose: 5 mg Documented By: REILLY Quetiapine Fumarate (Quetiapine Fumarate 200 Mg Tablet) 200 mg PO BEDTIME [facility] Last Admin: 06/05/24 22:28 Dose: 200 mg Documented By: PAVEL Sodium Chloride (0.9 % Sodium Chloride Flush 3 Ml Syringe) 3 ml IVFLUSH QSHIFT [facility] Last Admin: 06/06/24 07:50 Dose: Not Given Documented By: REILLY Non-Admin Reason: IV Running Tamsulosin HCl (Tamsulosin Hcl 0.4 Mg Capsule) 0.8 mg PO BEDTIME [facility] Last Admin: 06/05/24 22:27 Dose: 0.8 mg Documented By: PAVEL Vitamin D (Cholecalciferol (Vitamin D3) 25 Mcg Tablet) 50 mcg PO DAILY [facility] Last Admin: 06/06/24 07:45 Dose: 50 mcg Documented By: REILLY Labs 06/02/24 05:36 06/06/24 07:30 Labs: Laboratory Results - last 24 hr 06/05/24 06/05/24 06/05/24 12:56 16:18 20:08 Anion Gap 16 Estim Creat Clear Calc 17.5 Estimated GFR 13 POC Glucose 119 H 157 H Random Glucose 174 H Calcium 8.6 06/06/24 06/06/24 07:08 07:30 Anion Gap 12 Estim Creat Clear Calc 18.8 Estimated GFR 14 POC Glucose 111 Random Glucose 108 Calcium 8.5 Assessment and Plan (1) Metabolic acidosis: Status: Acute (2) Hyperkalemia: Status: Acute (3) Acute kidney injury superimposed on CKD: Status: Acute Plan 68-year-old male with a PMH significant for HTN, HLD, CAD s/p stenting around 2016 and 2018, aic-zoszpsz-vbiggednd type 2 diabetes, CKD [address] Hui, and chronic lower back pain who presents to the ED for evaluation of worsening lower back pain radiating to left leg. Pt will be admitted to the hospital for treatment and further evaluation of ESTELA on CKD likely prerenal. ESTELA on CKD3 with BICARB 13 ( mulifactorial -using nsaid's ,lisiniopril,dec po intake baseline cr seems 2.6-2.8 CT of abdomen/pelvis negative, UA showing proteinuria and protein/creatinine ratio elevated at 8.95 Plan: cr 4.3 -4.1 encouraged for po intake and hydration 300 ml free water,moniter bmp closely will check bmp again Hyperkalemia: imrpoved with loklema. Elevated troponins: Initial troponin 93.9 with repeat 104.7, baseline unknown Patient asymptomatic, EKG without ischemic changes Monitor on telemetry Elevated BNP BNP 474,-rechecked 315 Patient with no known CHF history seems euvolemic. added echo -due to elevated troponins and bnp. HTN:Hold lisinopril due to estela continue amlodipine 10 mg qd,added hydralazine 25 mg po tid. as per nephro note''he is no longer on any ryder blocking agents given his severe life-threatening bradycardia . off coreg. nephrology following CAD/HLD:Continue aspirin, statin Zft-opwrmyd-vnmcvoqif type 2 diabetes Continue home meds Sliding-scale insulin, diabetic diet back pain ; seems improving continue pain meds,flexril ? urinary retention continue flomax moniter pvr , staright cath >350 ml retention Full Code DVT Prophylaxis: Heparin ongoing need for hospitalization -treatment of?ESTELA on CKD and hyperkalemia - need close monitoring of electrolytes and kidney function, and specialist consultation with Nephrology. Quality Stroke Does the patient have a stroke diagnosis?: No VTE Prior VTE?: No VTE Risk Level:: Medical - moderate - high VTE Device Contraindication: Treatment Not Indicated VTE Drug Contraindication: N/A - Med Ordered
[2024-06-06 11:35] LABS: Glucose, Whole Blood 200 mg/dL (60-115)
[2024-06-06] MEDS: Nicotine Polacrilex 2 MG GUM BUCCAL ×4 (12:11→23:01)
--- NOTE | 2024-06-06 13:57 | MHC.CM.PN ---
EMR REVIEWED, PT W/ESTELA ON CKD, PT REMAINS ON IV FLUIDS, IV AND ORAL NARCOTIC PAIN MEDS, NO PLAN FOR DC AT THIS TIME, CM WILL CONT TO FOLLOW DC NEEDS.
[2024-06-06 16:00] VITALS: BP 150/50; PULSE 79; RESP 16; TEMP 36.7; O2SAT 98
[2024-06-06 16:42] LABS: Glucose, Whole Blood 109 mg/dL (60-115)
[2024-06-06 17:44] VITALS: RESP 20
[2024-06-06 20:25] VITALS: BP 163/59; PULSE 81; RESP 20; TEMP 37.1; O2SAT 98
[2024-06-06 20:35] LABS: Glucose, Whole Blood 209 mg/dL (60-115)
[2024-06-06] MEDS: Insulin Lispro 100 UNIT/ML 3 ML VIAL SUBCUT (20:59)
[2024-06-06] MEDS: QUEtiapine Fumarate 200 MG TABLET PO (22:27)
[2024-06-06] MEDS: Tamsulosin HCL 0.4 MG CAPSULE 0.8 MG PO (22:27)
[2024-06-06] MEDS: Atorvastatin Calcium 80 MG TABLET PO (22:29)
[2024-06-06 22:34] VITALS: BP 176/60; PULSE 98; RESP 18; TEMP 36.7; O2SAT 98
[2024-06-07] MEDS: 0.9 % Sodium Chloride Flush 3 ML SYRINGE IVFLUSH
[2024-06-07] MEDS: Morphine Sulfate 2 MG/ML CARTRIDGE IVPUSH ×2 (02:46→08:38)
[2024-06-07] MEDS: Nicotine Polacrilex 2 MG GUM BUCCAL ×2 (03:16→12:48)
[2024-06-07 06:23] VITALS: BP 144/60; RESP 18
[2024-06-07] MEDS: LORazepam 1 MG TABLET PO (06:25)
[2024-06-07] MEDS: Omeprazole 20 MG CAPSULE.DR PO (06:25)
[2024-06-07] MEDS: oxyCODONE HCl Immed Release 5 MG TABLET PO ×2 (06:25→12:48)
[2024-06-07 06:53] LABS: Anion Gap 12 (12-20); Blood Urea Nitrogen 49 mg/dL (9-16); Calcium 8.4 mg/dL (8.4-10.2); Carbon Dioxide 21 mmol/L (22-29); Chloride 109 mmol/L (96-108); Creatinine Clr Calc Pharmacy 19.2; Estimated Glomerular Filt Rate 15; Glucose Random 227 mg/dL (60-115); Potassium 5.2 mmol/L (3.3-5.1); Sodium 137 mmol/L (135-145)
[2024-06-07 07:23] LABS: Glucose, Whole Blood 168 mg/dL (60-115)
[2024-06-07] MEDS: Cholecalciferol (Vitamin D3) 25 MCG TABLET 50 MCG PO (07:53)
[2024-06-07] MEDS: Aspirin Enteric Coated 81 MG TABLET.DR PO (07:53)
[2024-06-07] MEDS: Cyclobenzaprine HCl 5 MG TABLET PO (07:53)
[2024-06-07] MEDS: amLODIPine Besylate 10 MG TABLET PO (07:54)
[2024-06-07] MEDS: lamoTRIgine 100 MG TABLET PO (07:54)
[2024-06-07] MEDS: Sodium Zirconium Cyclosilicate 5 GM POWD.PACK PO (07:54)
[2024-06-07] MEDS: Folic Acid 1 MG TABLET PO (07:54)
[2024-06-07] MEDS: Multivitamin TABLET 1 TAB PO (07:54)
[2024-06-07] MEDS: hydrALAZINE HCl 25 MG TABLET PO (07:54)
[2024-06-07 08:00] VITALS: BP 144/50; PULSE 70; RESP 14; TEMP 36.7; O2SAT 97
[2024-06-07] MEDS: 0.9 % Sodium Chloride 1,000 ML 80 ML IVCONT (08:32)
--- NOTE | 2024-06-07 08:33 | P.PNNP_ITS ---
Subjective Subjective Date of Service: 06/07/24 Interval history: 68 y/o male with a medical history of CKD (sees Dr Hui, per ED baseline creatinine 2.3-2.8), DMII (pt reports controlled), CAD s/p stent placement. Pt denies other known medical history, denies known hx of heart failure or other cardiac problems. 06/01 presented with chronic left lower back pain radiating down left leg that has been steadily worsening per pt. reportedly was taking 800mg ibuprofen every 8 hours for a few days prior to admission. Also on lisinopril, dose unknown. Nephrology consulted for ESTELA on CKD. reported baseline in 2's, though no records on file urine protein/creatinine ratio 8.95 no blood or WBCs in urine 06/01 creatinine 4.23, has been between 3.85 and 4.43 since admission 06/06 is 4.13 06/[address] abd/pelvis 06/01 showed unremarkable kidneys and ureters without hydronephrosis, hydroureter or calculi seen. reports today outside of his chronic back pain he is feeling well. Denies chest pain, shortness of breath, dizziness, abdominal pain, flank pain, urinary pain/difficulty emptying bladder. Physical Exam 2 Vital Signs: Vital Signs: Last Vital Signs Temp 98.0 F 06/06/24 22:34 Pulse 98 06/06/24 22:34 Resp 18 06/07/24 06:23 BP 144/60 H 06/07/24 06:23 Pulse Ox 98 06/06/24 22:34 O2 Del Method Room Air 06/07/24 06:23 BMI result Body Mass Index 28.8 Const: General: no acute distress, alert and awake Neck: Neck: Yes no JVD Resp: Effort & Inspection: normal respiratory effort and able to speak in complete sentences Auscultation: clear to auscultation bilaterally Cardio: Jugular venous distension: no JVD Rate: regular rate Rhythm: r egular rhythm Heart sounds: S1 normal heart sound present and S2 normal heart sound present GI: Palpation (GI): Soft to palpation and nontender : General: Yes no CVA tenderness Back/Spine/Pelvis: Back: no CVA tenderness Skin: Lesions: no lesions Rashes: no rashes Extrem: General: No edema Objective Data Labs 06/02/24 05:36 06/07/24 06:08 Labs: Laboratory Results - last 24 hr 06/06/24 06/06/24 06/06/24 07:30 11:17 16:33 Hold Purple Top Sodium 141 Potassium 5.1 Chloride 111 H Carbon Dioxide 23 Anion Gap 12 BUN 57 H Creatinine 4.13 H* Estim Creat Clear Calc 18.8 Estimated GFR 14 POC Glucose 200 H 109 Random Glucose 108 Calcium 8.5 06/06/24 06/07/24 06/07/24 20:24 06:08 07:13 Hold Purple Top SEE NOTE Sodium 137 Potassium 5.2 H Chloride 109 H Carbon Dioxide 21 L Anion Gap 12 BUN 49 H Creatinine 4.04 H* Estim Creat Clear Calc 19.2 Estimated GFR 15 POC Glucose 209 H 168 H Random Glucose 227 H Calcium 8.4 Procedures Date of Service Date of Service: 06/07/24 Assessment & Plan Assessment and plan (1) Acute kidney injury superimposed on CKD: Status: Acute (2) Hyperkalemia: Status: Acute (3) Metabolic acidosis: Status: Acute Plan ESTELA secondary to ATN from NSAID use on CKD (fibrillary glomerulonephritis and diabetic nephropathy) Tubular injury secondary to use of high dose NSAID over several days in conjunction with JESUSITA inhibitor leading up to ED presentation Per [facility] [place] labs, most recent creatinine 3.22 on 04/15/24; ranges between 2.67 to 3.76 since February 2024 His renal function remains stable and is slowly improving, anticipate continued gradual improvement back to baseline recommend PRN lokelma for hyperkalemia blood pressure suboptimally controlled, recommend increasing hydralazine to 50mg PO TID Avoid nephrotoxins Ok to discharge from renal standpoint with 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 Progress Note: Quality Stroke Does the patient have a stroke diagnosis?: No
[2024-06-07] MEDS: Heparin Sodium,Porcine 5,000 UNIT/ML VIAL 5000 UNIT SUBCUT (08:41)
--- NOTE | 2024-06-07 12:07 | P.CONCA_ITS ---
History of Present Illness History of Present Illness Date of Service: 06/07/24 Requesting physician: Hemanth Parikh Chief complaint: Abnormal echo, RWCT Narrative: [age] year gentleman who presented with low back pain and was noticed to have acute kidney injury on background of chronic kidney disease. He has CKD and has been following with Dr. Hui. He previously was seeing Dr. Leon at [facility] underwent PCI to circumflex in 2013 and RCA in 2019. Recent echocardiography done at [facility] showed EF 50 55% with inferior inferolateral wall motion abnormalities. He had echocardiography done here because of elevated BNP and it shows EF 50 55% with inferolateral wall motion abnormality and we were consulted for that. On review of echo at [facility] as mentioned above these changes are old. He is denying any chest pain or shortness of breath. He has some peripheral edema on examination. Overall no significant complaints currently. He has been following with [facility] but since Dr. Leon left he has been seeing a different doctor but does not remember his name. [facility] Past Medical History Medical History (Updated 06/07/24 @ 12:11 by Judson Pederson MD) CAD (coronary artery disease) Chronic lower back pain Non-insulin dependent type 2 diabetes mellitus HLD (hyperlipidemia) HTN (hypertension) Social History Social History Household Members: None Housing: Apartment Do you presently have visiting nurse or other home services: No Unable to assess alcohol history related to: Unknown Patient Tobacco Use Status: Former Tobacco user Substance Use Type: Marijuana service: No Meds Allergies Allergy/AdvReac Type Severity Reaction Status Date / Time bee pollen [BEE STINGS] Allergy Unknown THROAT Verified 06/01/24 10:00 SWELLING Active Medications: Current Medications Acetaminophen (Acetaminophen 325 Mg Tablet) 650 mg PO Q6H PRN PRN Reason: Pain, Mild (Pain Scale 1-3), fever or headache Last Admin: 06/04/24 16:50 Dose: 650 mg Amlodipine Besylate (Amlodipine Besylate 10 Mg Tablet) 10 mg PO DAILY [facility]; Protocol Last Admin: 06/07/24 07:54 Dose: 10 mg Aspirin (Aspirin Enteric Coated 81 Mg Tablet.) 81 mg PO DAILY [facility] Last Admin: 06/07/24 07:53 Dose: 81 mg Atorvastatin Calcium (Atorvastatin Calcium 80 Mg Tablet) 80 mg PO BEDTIME [facility] Last Admin: 06/06/24 22:29 Dose: 80 mg Calcium Carbonate (Calcium Carbonate 750 Mg Tab.Chew) 750 mg PO Q4H PRN PRN Reason: Heartburn Cyclobenzaprine HCl (Cyclobenzaprine Hcl 5 Mg Tablet) 5 mg PO TID [facility] Last Admin: 06/07/24 07:53 Dose: 5 mg Docusate Sodium (Docusate Sodium 100 Mg Capsule) 100 mg PO BID PRN PRN Reason: constipation Last Admin: 06/04/24 09:09 Dose: 100 mg Folic Acid (Folic Acid 1 Mg Tablet) 1 mg PO DAILY [facility] Last Admin: 06/07/24 07:54 Dose: 1 mg Glucose (Glucose Gel 15 Gm Gel..Gram.) 15 gm PO Q15M PRN; Protocol PRN Reason: per Hypoglycemia Standing Ord. Heparin Sodium (Porcine) (Heparin Sodium,Porcine 5,000 Unit/Ml Vial) 5,000 unit SUBCUT Q12H [facility] Last Admin: 06/07/24 08:41 Dose: 5,000 unit Hydralazine HCl (Hydralazine Hcl 50 Mg Tablet) 50 mg PO TID [facility]; Protocol Dextrose (D10) 250 mls @ 750 mls/hr IV Q15M PRN; Protocol PRN Reason: per Hypoglycemia Standing Ord. Sodium Chloride (Ns) 1,000 mls @ 80 mls/hr IVCONT .[id number] [facility] Last Admin: 06/07/24 08:32 Dose: 80 mls/hr Insulin Human Lispro (Insulin Lispro 100 Unit/Ml 3 Ml Vial) 0 unit SUBCUT QIDACHS [facility]; Protocol Last Admin: 06/07/24 07:36 Dose: Not Given Lamotrigine (Lamotrigine 100 Mg Tablet) 100 mg PO BID [facility] Last Admin: 06/07/24 07:54 Dose: 100 mg Latanoprost (Latanoprost 0.005 % Ophth Saima 2.5 Ml Drops) 1 drop EYE-BOTH BEDTIME [facility] Last Admin: 06/06/24 21:00 Dose: Not Given Lorazepam (Lorazepam 1 Mg Tablet) 1 mg PO TID PRN PRN Reason: Anxiety Last Admin: 06/07/24 06:25 Dose: 1 mg Magnesium Hydroxide (Milk Of Magnesia 30 Ml Oral.Susp) 30 ml PO DAILY PRN PRN Reason: Constipation Last Admin: 06/04/24 19:44 Dose: 30 ml Melatonin (Melatonin 3 Mg Tablet) 6 mg PO BEDTIME PRN PRN Reason: Insomnia Morphine Sulfate (Morphine Sulfate 2 Mg/Ml Cartridge) 2 mg IVPUSH Q4H PRN; Protocol PRN Reason: Pain, Severe (Pain Scale 7-10) Last Admin: 06/07/24 08:38 Dose: 2 mg Multivitamins/Vitamin C (Multivitamin Tablet) 1 tab PO DAILY [facility] Last Admin: 06/07/24 07:54 Dose: 1 tab Nicotine (Nicotine 14 Mg Patch.Td24) 14 mg TRANSDERMA DAILY [facility] Last Admin: 06/07/24 07:58 Dose: Not Given Nicotine Polacrilex (Nicotine Polacrilex 2 Mg Gum) 2 mg BUCCAL Q1H PRN PRN Reason: Nicotine Cravings Last Admin: 06/07/24 03:16 Dose: 2 mg Nitroglycerin (Nitroglycerin 0.4 Mg Tab.Subl) 0.4 mg SUBLINGUAL Q5M PRN PRN Reason: Chest Pain Omeprazole (Omeprazole 20 Mg Capsule.Dr) 20 mg PO DAILY@0630 [facility] Last Admin: 06/07/24 06:25 Dose: 20 mg Ondansetron HCl (Ondansetron Hcl 4 Mg/2 Ml Vial) 4 mg IVPUSH Q8H PRN PRN Reason: Nausea and Vomiting Oxycodone HCl (Oxycodone Hcl Immed Release 5 Mg Tablet) 5 mg PO Q6H PRN PRN Reason: Pain, Moderate(Pain Scale 4-6) Last Admin: 06/07/24 06:25 Dose: 5 mg Quetiapine Fumarate (Quetiapine Fumarate 200 Mg Tablet) 200 mg PO BEDTIME [facility] Last Admin: 06/06/24 22:27 Dose: 200 mg Sodium Chloride (0.9 % Sodium Chloride Flush 3 Ml Syringe) [facility] Last Admin: 06/07/24 07:54 Dose: Not Given Tamsulosin HCl (Tamsulosin Hcl 0.4 Mg Capsule) 0.8 mg PO BEDTIME [facility] Last Admin: 06/06/24 22:27 Dose: 0.8 mg Vitamin D (Cholecalciferol (Vitamin D3) 25 Mcg Tablet) 50 mcg PO DAILY [facility] Last Admin: 06/07/24 07:53 Dose: 50 mcg Home Medications ?Medication ?Instructions ?Recorded ?Confirmed ?Last Taken ?Type amlodipine 10 mg tablet 10 mg PO DAILY 06/01/24 06/02/24 06/02/24 History aspirin 81 mg tablet,delayed 81 mg PO DAILY 06/01/24 06/02/24 06/02/24 History release carvedilol 6.25 mg tablet 6.25 mg PO BID 06/01/24 06/02/24 06/02/24 History cholecalciferol (vitamin D3) 50 50 mcg PO DAILY 06/01/24 06/02/24 06/02/24 History mcg (2,000 unit) capsule dapagliflozin propanediol 5 mg 5 mg PO DAILY 06/01/24 06/02/24 06/02/24 History tablet (Farxiga) docusate sodium 100 mg capsule 100 mg PO BID PRN constipation 06/01/24 06/02/24 Unknown History folic acid 1 mg tablet 1 mg PO DAILY 06/01/24 06/02/24 06/02/24 History lamotrigine 100 mg tablet 100 mg PO BID 06/01/24 06/02/24 Unknown History latanoprost 0.005 % eye drops 1 drp ophthalmic (eye) BEDTIME 06/01/24 06/02/24 06/01/24 History lisinopril 10 mg tablet 10 mg PO DAILY 06/01/24 06/02/24 06/02/24 History lorazepam 1 mg tablet 1 mg PO QID PRN Anxiety 06/01/24 06/02/24 Unknown History quetiapine 100 mg tablet 200 - 300 mg PO BEDTIME 06/01/24 06/02/24 06/01/24 History rosuvastatin 20 mg tablet 20 mg PO BEDTIME 06/01/24 06/02/24 06/01/24 History sennosides 8.6 mg tablet (senna) 17.2 mg PO BEDTIME PRN constipation 06/01/24 06/02/24 Unknown History multivitamin (Daily-Simone tablet) 1 tab PO DAILY 06/02/24 06/02/24 06/02/24 History nitroglycerin 0.4 mg sublingual 0.4 mg sublingual Q5M PRN Chest 06/02/24 06/02/24 Unknown History tablet Pain Physical Exam 2 Vital Signs: Vital Signs: Last Vital Signs Temp 98.1 F 06/07/24 08:00 Pulse 70 06/07/24 08:00 Resp 14 06/07/24 08:00 BP 144/50 H 06/07/24 08:00 Pulse Ox 97 06/07/24 08:00 O2 Del Method Room Air 06/07/24 08:00 BMI result Body Mass Index 28.8 GENERAL APPEARANCE: in no acute distress, pleasant. NECK: no carotid bruit, no jugular venous distention. SKIN: no suspicious lesions, warm and dry. HEART: no murmurs, regular rate and rhythm. LUNGS: clear to auscultation bilaterally. ABDOMEN: soft, nontender. EXTREMITIES: 1 to 2+ edema. PERIPHERAL PULSES: equal. NEUROLOGIC: No gross deficits, AAO X 3 Objective Labs and Meds 06/02/24 05:36 06/07/24 06:08 Lab results: Laboratory Results - last 24 hr 06/06/24 06/06/24 06/07/24 16:33 20:24 06:08 Hold Purple Top SEE NOTE Sodium 137 Potassium 5.2 H Chloride 109 H Carbon Dioxide 21 L Anion Gap 12 BUN 49 H Creatinine 4.04 H* Estim Creat Clear Calc 19.2 Estimated GFR 15 POC Glucose 109 209 H Random Glucose 227 H Calcium 8.4 06/07/24 07:13 Hold Purple Top Sodium Potassium Chloride Carbon Dioxide Anion Gap BUN Creatinine Estim Creat Clear Calc Estimated GFR POC Glucose 168 H Random Glucose Calcium Assessment and Plan (1) Elevated troponin: Status: Acute (2) Acute kidney injury superimposed on CKD: Status: Acute (3) CAD (coronary artery disease): Status: Acute Plan 68-year-old gentleman with known history of coronary artery disease with previous PCI to circumflex and RCA and low normal ejection fraction 50 55% with inferior inferolateral wall motion abnormalities on echocardiography performed in February of 2024 at [facility]. His echocardiography done at [place] is identical to [facility]. No anginal symptoms. He had mild troponin elevation but no anginal symptoms or dynamic EKG changes are noted. Continue medical management for coronary disease with aspirin and high-intensity statin therapy. Stop further IV fluids. He will follow-up with [facility] after discharge. Thank you for allowing me to participate in the care of your patient. Please feel free to contact me if you have any questions. Procedures Date of Service Date of Service: 06/07/24
[2024-06-07 12:23] LABS: Glucose, Whole Blood 172 mg/dL (60-115)
--- NOTE | 2024-06-07 12:24 | PM.DS ---
DS: Providers Provider Date of Service: 06/07/24 Date of admission: 06/01/24 21:17 Date of discharge: 06/07/24 Primary care physician: Kelly Butler NP Consults: 06/01/24 15:14 Consult to Nephrology Stat Consulting Provider: Misbah Orosco Reason for consultation: ESTELA 06/07/24 08:42 Consult to Cardiology Routine Consulting Provider: [facility] Reason for consultation: Elevated Trop and Bnp , abnormal echo Has provider been notified: No Attending physician on discharge: Hemanth Parikh Discharging clinician: Hemanth Parikh DS: Diagnosis Discharge Diagnosis (1) Elevated troponin: Status: Acute (2) Acute kidney injury superimposed on CKD: Status: Acute (3) CAD (coronary artery disease): Status: Acute DS: Summary Hospital Course Hospital Course: HPI: 68-year-old male with a PMH significant for HTN, HLD, CAD s/p stenting around 2016 and 2017, diabetes, CKD [address] Hui, and chronic lower back pain who presents to the ED for evaluation of worsening lower back pain radiating to left leg. Patient states he has had chronic lower back pain for many years. Previously diagnosed with lumbar stenosis and herniated disc. Follows with [facility]. Reports aggravated his lower back secondary to getting in and out of an elevated truck 1-1/2 months ago. Has been having increased lower back pain radiating down left leg to foot with left leg weakness. Initially presented to [facility] and had an MRI on 05/24. Patient does not know the results of the MRI, but they were sent to the office and patient was scheduled for a follow-up on 07/26/2024. However pt reports his pain is too much to wait that long and was hoping to establish with Dr. Thorpe here. Denies any other medical complaints though notes he has not been eating or drinking well lately. No fever, chills, nausea, vomiting, abdominal pain. Denies chest pain/pressure, palpitations. No shortness a breath or difficulty breathing. Denies orthopnea or PND. The patient notes he has been taking ibuprofen recently for pain. In the ED pt was Labs were significant for potassium 5.8, BUN 72, creatinine 4.23 (baseline 2.6-2.8), initial troponin 93.9 with repeat 104.7, BNP 474. No leukocytosis. Stable H&H. UA negative for UTI but showed random total protein 182 and protein/creatinine ratio of 8.95. CXR showed no acute cardiopulmonary process. CT of abdomen and pelvis showed no acute abnormality, but small pericardial effusion and multilevel spondylolysis of the spine. Venous duplex of left lower extremity negative for DVT. EKGx2 demonstrated normal sinus rhythm without significant ST elevations or depressions. Pt was treated with morphine, Lokelma, and IVF. Pt will be admitted to the hospital for treatment and further evaluation of ESTELA on CKD likely prerenal. Hospital course: 68-year-old male with a PMH significant for HTN, HLD, CAD s/p stenting around 2017 and 2018, rup-[id number] type 2 diabetes, CKD [address] Hui, and chronic lower back pain who presents to the ED for evaluation of worsening lower back pain radiating to left leg. Pt will be admitted to the hospital for treatment and further evaluation of ESTELA on CKD likely prerenal. ESTELA on CKD3 with BICARB 13 ( mulifactorial -using nsaid's ,lisiniopril,dec po intake)-has baseline cr seems 2.6-2.8. CT of abdomen/pelvis negative, UA showing proteinuria and protein/creatinine ratio elevated at 8.95 given iv hydration -cr was flactuating somewhat improving , creatinine 4 . encouraged for po intake and hydration. Seen by nephrology recommended to follow-up outpatient with Dr Hui. Hyperkalemia: imrpoving with loklema. low patssium diet , check bmp outpatient. Elevated troponins/bnp: echo:Normal left ventricular cavity size. There is normal left ventricular wall thickness. The left ventricular systolic function is low normal. The visually estimated ejection fractionis between 50-55%. Elevated filling pressures.The inferolateral wall is akinetic.Normal right ventricular cavity size and systolic function. Mildly elevated right atrial pressure. Seen by cardiology- history of coronary artery disease with previous PCI to circumflex and RCA and low normal ejection fraction 50 55% with inferior inferolateral wall motion abnormalities on echocardiography performed in February of 2024 at [facility]. His echocardiography done at [place] is identical to [facility]. No anginal symptoms. He had mild troponin elevation but no anginal symptoms or dynamic EKG changes are noted. Continue medical management for coronary disease with aspirin and high-intensity statin therapy. follow-up with [facility] after discharge. HTN: Hold lisinopril due to fluctuating renal function, hyperkalemia. Coreg is on hold the question of bradycardia in the past. Further use of lisinopril out patiently as per Nephrology, and further use of Coreg as per patient Cardiology outpatient. Hydralazine adjusted to 50 mg t.i.d. ,continue amlodipine back pain ; seems improving continue pain meds,flexril added, also add is oxycodone limited supply. Patient advised to continue on bowel regimen, also patient was strongly advised to hold for sedation(Flexeril/oxycodone). Patient knows that he need to follow-up out patiently with Dr. Watson. ? urinary retention: Patient is urinating well,continue flomax Consider outpatient urology evaluation if needed. plan: Monitor BMP outpatient, low-potassium diet Hydralazine adjusted to 50 mg t.i.d. ,continue amlodipine. added flomax, bladder scan no urinary retention, Consider outpatient urology evaluation if further urinary retention issues. Patient is to follow-up with Nephrology Dr. Ez melchor as well as [facility] Cardiology for above mentioned issues. Above management discussed with the patient detail length he understand and in agreement with the above plan, time spent 40 minute. Above plan was discussed with the patient in the presence of karen Machado. Time Attestation Total time managing care of this patient today: 40 mintues. Discharge Coordination Time (in mins): 40 min Quality: Safe Use of Opioids Does Pt have an Active Cancer Diagnosis on the Problem List?: No Quality: Stroke Does the patient have a stroke diagnosis?: No Physical Exam Vital Signs: Vital Signs: Last Vital Signs Temp 98.1 F 06/07/24 08:00 Pulse 70 06/07/24 08:00 Resp 14 06/07/24 08:00 BP 144/50 H 06/07/24 08:00 Pulse Ox 97 06/07/24 08:00 O2 Del Method Room Air 06/07/24 08:00 BMI result Body Mass Index 28.8 Appearance: Alert.? Oriented X3.? cvs: rrr, [id number] . res: clear to auscultation ,no rhonchii or wheezing abd: no rebound or guarding ,nt, bs present. ext pulses present , no cyanosis . Ms:back pain seems improving , able to sit . neuro: axo3 , nonfocal. DS: Data Data Completed and Pending Labs on day of discharge: Laboratory Results - last 24 hr 06/06/24 06/06/24 06/07/24 16:33 20:24 06:08 Hold Purple Top SEE NOTE Sodium 137 Potassium 5.2 H Chloride 109 H Carbon Dioxide 21 L Anion Gap 12 BUN 49 H Creatinine 4.04 H* Estim Creat Clear Calc 19.2 Estimated GFR 15 POC Glucose 109 209 H Random Glucose 227 H Calcium 8.4 06/07/24 06/07/24 07:13 12:18 Hold Purple Top Sodium Potassium Chloride Carbon Dioxide Anion Gap BUN Creatinine Estim Creat Clear Calc Estimated GFR POC Glucose 168 H 172 H Random Glucose Calcium Imaging Chest x-ray: Radiologist's impression: ITS Impressions Venous Duplex 06/01/24 13:44 IMPRESSION: No evidence of deep venous thrombosis involving the left lower extremity. Electronically signed by: Vonda Fuentes MD 06/01/2024 03:34 PM EST RP Chest X-Ray 06/01/24 16:08 IMPRESSION: Unremarkable examination. Electronically signed by: Vonda Fuentes MD 06/01/2024 04:47 PM EST RP Abdomen/Pelvis CT 06/01/24 16:11 IMPRESSION: 1. No acute abnormality CT scan abdomen pelvis. 2. Small pericardial effusion. 3. Multilevel degenerative spondylosis of the spine. Fleischner guidelines were followed. Electronically signed by: Cameron Ingram MD 06/01/2024 08:03 PM EST RP Discharge Plan Discharge Anticipated Discharge Date/Time: 06/07/24 12:14 Patient Disposition: Home Health Service Discharge Diagnosis: estela on ckd ,htn, back pain Referrals: Yuval VELAZQUEZ [Outside] - 1 Week Kelly Butler NP [Primary Care Provider] - 1 Week Discharge Medications: New cyclobenzaprine 5 mg Tablet 2.5 mg PO TID Qty: 10 0RF nicotine 14 mg/24 hr Patch 24 Hour 14 mg transdermal DAILY Qty: 7 0RF tamsulosin 0.4 mg Capsule 0.8 mg PO BEDTIME Qty: 60 0RF omeprazole 20 mg Capsule,Delayed Release(Dr/Ec) 20 mg PO DAILY@0630 Qty: 30 0RF hydralazine 50 mg Tablet 50 mg PO TID Qty: 180 0RF Protocol: Hold for SBP< HOLD for SBP < : 90 oxycodone 5 mg tablet 2.5 mg PO BID PRN (Reason: pain) Qty: 10 0RF Rx Instructions: Partial Fill upon patient request. Continued latanoprost 0.005 % drops 1 drp ophthalmic (eye) BEDTIME sennosides [senna] 8.6 mg tablet 17.2 mg PO BEDTIME PRN (Reason: constipation) aspirin 81 mg tablet,delayed release (DR/EC) 81 mg PO DAILY quetiapine 100 mg tablet 200 - 300 mg PO BEDTIME amlodipine 10 mg tablet 10 mg PO DAILY docusate sodium 100 mg capsule 100 mg PO BID PRN (Reason: constipation) folic acid 1 mg tablet 1 mg PO DAILY lorazepam 1 mg tablet 1 mg PO QID PRN (Reason: Anxiety) lamotrigine 100 mg tablet 100 mg PO BID rosuvastatin 20 mg tablet 20 mg PO BEDTIME cholecalciferol (vitamin D3) 50 mcg (2,000 unit) capsule 50 mcg PO DAILY dapagliflozin propanediol [Farxiga] 5 mg tablet 5 mg PO DAILY multivitamin [Daily-Simone] Tablet 1 tab PO DAILY nitroglycerin 0.4 mg tablet, sublingual 0.4 mg sublingual Q5M PRN (Reason: Chest Pain) Discontinued carvedilol 6.25 mg tablet 6.25 mg PO BID lisinopril 10 mg tablet 10 mg PO DAILY Discharge Orders: Discharge Order (Routine); Ordered 06/07/24 Ordered By: Hemanth Parikh Diet: low potassium diet Activity on Discharge: As tolerated Stand Alone Forms: Patient Portal Discharge page Print Language: Irish Other Ambulatory Orders: Basic Metabolic Panel (Routine) Timeframe: 1 Week Facility: [facility] - Location: Laboratory Ordered By: Hemanth Parikh Care Plan Goals: as above. Health Concerns: as above. Plan of Treatment: Hydralazine 50 mg t.i.d. Continue amlodipine. Lisinopril was stopped due to hyperkalemia/worsening renal function. Coreg is stopped-because of question of bradycardia, he needs to be cleared by Cardiology before starting back Coreg. Added Flomax for questionable urinary retention, consider outpatient urology follow-up. 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 Patient is mobile, moving around. Range of motion is intact. moniter bmp. follow up with cardiology ,nephrology outpatient. Assessment: as above. Discharge Date/Time: 06/07/24 14:57
--- NOTE | 2024-06-07 13:15 | P.F2F_ITS ---
Service Date Service Date: 06/07/24 Encounter Date of encounter: 06/07/24 Encounter: htn ,estela on ckd ,hyperkalemia ,back pain Reasons for Services Signs and symptoms assessed: Monitor blood pressure, new urinary complaints or fever, worsening back pain Reason for assisted: CV/CP assess and/or care, medication management, medication treatment and teach disease management MD Overseeing Care: Kelly Butler Homebound: Leaving the home is medically contraindicated at this time without the asist of a device and/or another person due th the listed conditions above and below. Reason homebound: weakness related to hospital stay Homebound supporting statement: Patient multiple comorbidities including ESTELA on CKD, Certification: Based on the above findings, I certify that this patient is confined to the home and needs intermittent assisted care, physical therapy and/or speech therapy, or continues to need occupational therapy. The patient is under my care, and I have initiated the establishment of the plan of care. The patient will be followed by a physician who will periodically review the plan of care. Time Spent With Patient Time: Total time managing care of this patient today ____ minutes.
--- NOTE | 2024-06-07 13:36 | MHC.CM.PN ---
Addendum entered by Sigrdi Delacruz RN 06/07/24 14:27: [facility] TO PROVIDE SHELTER, PT'S PHYSICAL ADDRESS [address], [address] [place] [address]. Addendum entered by Sigrid Delacruz RN 06/07/24 13:58: CM MET W/HOSPITALIST WHO REPORTS PT NOW WANTS [facility] SERVICES, REFERRAL PLACED. Original Note: PT MEDICALLY CLEARED FOR DC HOME SELF CARE PT DECLINES [facility] SERVICES AND STATES, I DO MY OWN MEDS , CM ATTEMPTED TO DELIVER 2ND IMM HOWEVER PT DECLINES TO SIGN, WHEN ASKED IF HE WANTED TO APPEAL PT ASKED HOW TO DO THAT AND CM TOLD PT IT WAS A SIMPLE CALL TO [facility] AND PT STATES, I'M NOT MAKING ANY PHONE CALLS AND THAT HE WOULD LIKELY NOT HAVE A RIDE UNTIL 5PM, CM DID OFFER TO PROVIDE TRANSPORT FOR PT HOWEVER HE REPEATED, I DON'T KNOW YET , CM TOLD PT HE WOULD NEED TO LET CM KNOW BY 3PM. PT SEEMS TO BE MAINLY FOCUSED ON WHETHER HOSPITALIST WILL GIVE HIM A SCRIPT FOR PAIN MEDICATION AND DEMANDING TO SPEAK TO HOSPITALIST, HOSPITALIST AWARE AND WILL MEET W/PT.
--- NOTE | 2024-06-07 14:02 | W.MHC.F2F ---
Service Date Service Date: 06/07/24 Encounter Date of encounter: 06/07/24 Encounter: CKD, ?urinary retention, hypertension Reasons for Services Signs and symptoms assessed: Any new seems symptoms of chest pain shortness of breath or any worsening back pain or urinary complaints. Reason for residential: CV/CP assess and/or care, medication management, medication treatment and teach disease management MD Overseeing Care: Kelly Butler Homebound: Leaving the home is medically contraindicated at this time without the asist of a device and/or another person due th the listed conditions above and below. Reason homebound: weakness related to hospital stay Homebound supporting statement: Patient had multiple comorbidities including ESTELA on CKD, hypertension, question of urinary retention-need help with appointments, lab draw, medical management. Certification: Based on the above findings, I certify that this patient is confined to the home and needs intermittent residential care, physical therapy and/or speech therapy, or continues to need occupational therapy. The patient is under my care, and I have initiated the establishment of the plan of care. The patient will be followed by a physician who will periodically review the plan of care. Time Spent With Patient Time: Total time managing care of this patient today ____ minutes.
== END 2024-06-07 14:57 | disposition home health service (06) | DRG 640 ==
LOC: HO.ED 19:44 → HO.EDOVER 21:36 → HO.IMC 06-03 07:31
PROVIDERS: Internal Medicine; Nurse Practitioner Family; Physician Assistant Medical; Admitting Provider Student in an Organized Health Care Education/Training Program; Emergency Provider Emergency Medicine Emergency Medical Services; PCP Nurse Practitioner Family; Visit Provider Internal Medicine
DX: E87.5 Hyperkalemia (principal); N17.0 Acute kidney failure with tubular necrosis; N18.4 Chronic kidney disease, stage 4 (severe); I12.9 Hypertensive chronic kidney disease with stage 1 through stage 4 chronic kidney disease, or unspecified chronic kidney disease; E87.20 Acidosis, unspecified; M54.59 Other low back pain; G89.29 Other chronic pain; E11.22 Type 2 diabetes mellitus with diabetic chronic kidney disease; R33.9 Retention of urine, unspecified; E78.5 Hyperlipidemia, unspecified; I25.10 Atherosclerotic heart disease of native coronary artery without angina pectoris; Z95.5 Presence of coronary angioplasty implant and graft; Z86.19 Personal history of other infectious and parasitic diseases; Z87.891 Personal history of nicotine dependence; Z79.82 Long term (current) use of aspirin; Z79.899 Other long term (current) drug therapy
CPT/HCPCS: 36415; 71046; 73521; 74176; 80048; 80053; 80076; 81001; 82010; 82550; 82570; 82947; 83036; 83735; 83880; 84156; 84300; 84484; 85025; 85027; 93005; 93306; 93971; 99285; J1644; J2270; J7120; P9047; Q9957

== ENCOUNTER → 2024-06-01 11:48 | Outpatient (BNV) | payer MEDICARE, MEDICAID, SELFPAY | PROVIDERS: Emergency Provider Emergency Medicine Emergency Medical Services; PCP Nurse Practitioner Family; Visit Provider Nurse Practitioner Family | DX: N17.9 Acute kidney failure, unspecified (principal); N18.9 Chronic kidney disease, unspecified; E87.5 Hyperkalemia; E87.21 Acute metabolic acidosis | CPT/HCPCS: 99222; 99232 ==

== ENCOUNTER → 2024-06-01 18:59 | Outpatient (BNV) | payer MEDICARE, MEDICAID, SELFPAY | PROVIDERS: Admitting Provider Student in an Organized Health Care Education/Training Program; Emergency Provider Emergency Medicine Emergency Medical Services; PCP Nurse Practitioner Family; Visit Provider Internal Medicine | DX: R79.89 Other specified abnormal findings of blood chemistry (principal); E87.5 Hyperkalemia; E87.20 Acidosis, unspecified | CPT/HCPCS: 93010 ==

== ENCOUNTER 2024-06-01 21:17 | Outpatient (BNV) | payer MEDICARE, MEDICAID, SELFPAY | END 2024-06-07 11:35 | PROVIDERS: Admitting Provider Student in an Organized Health Care Education/Training Program; Emergency Provider Emergency Medicine Emergency Medical Services; PCP Nurse Practitioner Family; Visit Provider Radiology Diagnostic Radiology | DX: M25.559 Pain in unspecified hip (principal) | CPT/HCPCS: 73521 ==

== ENCOUNTER 2024-06-01 21:17 | Outpatient (BNV) | payer MEDICARE, MEDICAID, SELFPAY | END 2024-06-06 07:00 | PROVIDERS: Admitting Provider Student in an Organized Health Care Education/Training Program; Emergency Provider Emergency Medicine Emergency Medical Services; PCP Nurse Practitioner Family; Visit Provider Internal Medicine Cardiovascular Disease | DX: I35.8 Other nonrheumatic aortic valve disorders (principal); I42.8 Other cardiomyopathies | CPT/HCPCS: 93306 ==

== ENCOUNTER → 2024-06-01 21:17 | Outpatient (BNV) | payer MEDICARE, MEDICAID, SELFPAY | PROVIDERS: Admitting Provider Student in an Organized Health Care Education/Training Program; Emergency Provider Emergency Medicine Emergency Medical Services; PCP Nurse Practitioner Family; Visit Provider Student in an Organized Health Care Education/Training Program | DX: E87.20 Acidosis, unspecified (principal); E87.5 Hyperkalemia; N17.9 Acute kidney failure, unspecified; N18.9 Chronic kidney disease, unspecified | CPT/HCPCS: 99223; 99232; 99239; 99499; G0180 ==

== ENCOUNTER → 2024-06-01 21:17 | Outpatient (BNV) | payer MEDICARE, MEDICAID, SELFPAY | PROVIDERS: Admitting Provider Student in an Organized Health Care Education/Training Program; Emergency Provider Emergency Medicine Emergency Medical Services; PCP Nurse Practitioner Family; Visit Provider Internal Medicine Cardiovascular Disease | DX: R79.89 Other specified abnormal findings of blood chemistry (principal); N17.9 Acute kidney failure, unspecified; N18.9 Chronic kidney disease, unspecified; I25.10 Atherosclerotic heart disease of native coronary artery without angina pectoris | CPT/HCPCS: 99223 ==